=== PATIENT | male | born 1965 | race Caucasian/White ===

== ENCOUNTER 2018-06-17 06:01 | Inpatient (IN) ==
[2018-06-17 09:50] LABS: Basophils % 0.1 %; Hematocrit 39.3 % (37.5-50.1); Hemoglobin 13.9 g/dL (12.9-16.9); Immature Granulocytes % 1.4 % (0-4); Lymphocytes % 3.9 %; Mean Corpuscular HGB Conc 35.4 g/dL (31.6-35.5); Mean Corpuscular Hemoglobin 31.8 pg (28.0-33.3); Mean Corpuscular Volume 89.9 fL (83.0-100.0); Mean Platelet Volume 12.9 fL (9.4-12.4); Monocytes # 1.2 K/mcL (0.0-1.3); Monocytes % 4.7 %; Neutrophils # 22.4 K/mcL (1.6-8.9); Nucleated Red Blood Cells 0.1 /100 WBC (0); Platelet Count 126 K/mcL (140-400); Red Blood Count 4.37 M/mcL (4.19-5.50); Red Cell Distribution Width 14.9 % (11.5-14.5); Segmented Neutrophils % 89.9 %
[2018-06-17 09:52] LABS: VBG Ionized Calcium 0.93 mmol/L (1.15-1.35)
[2018-06-17 09:56] LABS: INR 1.6; Prothrombin Time 17.7 Seconds (9.4-12.1)
[2018-06-17] MEDS ORDERED: Cisatracurium 200 MG in 0.9 % Sodium Chloride 180 ML IVC SCH (10:00)
[2018-06-17] MEDS: Norepinephrine 4 MG in D5% in Water 250 ML IVC SCH ×3 (10:00→15:21)
[2018-06-17] MEDS ORDERED: Naloxone 0.4 MG/ML INJ IVP PRN (10:01)
[2018-06-17 10:21] LABS: Calcium 7.4 mg/dL (8.6-10.3); Magnesium 1.5 mg/dL (1.6-2.6); Troponin I 0.61 ng/mL (< 0.04)
[2018-06-17] MEDS ORDERED: Potassium Chloride Elixir 20 MEQ/15 ML UDC GTUBE ONE (10:27)
[2018-06-17 10:29] LABS: Potassium 1.6 mEq/L (3.5-5.1)
[2018-06-17] MEDS ORDERED: Artificial Tears SOLN 15 ML BOTTLE BOTH EYES PRN (10:29)
[2018-06-17] MEDS ORDERED: Ringers Solution, Lactated 1,000 ML IVC ONE ×3 (10:35→13:11)
[2018-06-17] MEDS ORDERED: Ringers Solution, Lactated 1,000 ML ONE (10:41)
[2018-06-17 10:55] LABS: Albumin/Globulin Ratio 1.2 (1.1-2.2); Bilirubin,Direct 0.4 mg/dL (0.0-0.2); Bilirubin,Indirect 0.6 mg/dL (0.0-1.2); Globulin 2.5 g/dL (2.4-3.5); Total Protein 5.5 g/dL (6.4-8.9)
[2018-06-17 10:57] LABS: ABG Base Excess 8 mEq/L (-2 to 3); ABG HCO3 35 mEq/L (21-27); ABG Oxygen Saturation 96 % (95-98); ABG PCO2 57 mmHg (35-45); ABG PO2 86 mmHg (85-104); ABG TCO2 37 mEq/L (20-26); Blood Gas Modality ASSIST CONTROL; Blood Gas PEEP 14 cm H2O; Blood Gas Respiration Rate 16; Blood Gas VT 500 cc
[2018-06-17] MEDS ORDERED: Vancomycin 1,750 MG in 0.9 % Sodium Chloride 250 ML IVPB SCH ×2 (11:00→18:00)
[2018-06-17] MEDS ORDERED: *HR* Dextrose 50 % in Water (Syg) 50 ML SYRINGE IVP PRN ×3 (11:20→16:31)
[2018-06-17] MEDS ORDERED: Acetaminophen 650 MG RECTAL SUPP RC PRN (11:20)
[2018-06-17] MEDS ORDERED: Dextrose Gel 15 GM/37.5 ML TUBE PO PRN ×2 (11:28)
[2018-06-17] MEDS ORDERED: D5% in Water 1,000 ML IVC PRN (11:28)
[2018-06-17] MEDS ORDERED: Insulin Human Regular 100 UNIT in 0.9 % Sodium Chloride 100 ML IVC SCH (11:30)
[2018-06-17] MEDS ORDERED: 0.9 % Sodium Chloride 500 ML ONE (11:39)
[2018-06-17] MEDS: Pantoprazole 40 MG VIAL IVP SCH (11:39)
[2018-06-17] MEDS: Hydrocortisone Sodium Succ 100 MG/2 ML VIAL IVP SCH ×3 (11:39→22:59)
[2018-06-17] MEDS: Artificial Tears SOLN 15 ML BOTTLE BOTH EYES SCH ×4 (11:40→23:00)
[2018-06-17] MEDS: Piperacillin/Tazobactam 3.375 GM in 0.9 % Sodium Chloride Mini Bag 100 ML IVPB SCH ×2 (11:40→19:40)
[2018-06-17] MEDS: Levofloxacin 750 MG/150 ML 750 MG/150 ML BAG IVPB SCH (11:41)
--- NOTE | 2018-06-17 12:01 | Pulmonology History & Physical ---
<Nikole Mooney - Last Filed: 06/17/18 20:12> Date of Encounter: 06/17/18 Time of Encounter: 12:01 Assessment and Plan (1) Acute respiratory failure with hypoxemia Current visit: Yes Status: Acute Transferred from the ED at [facility]. It is likely due to pneumonia and septic shock. He was intubated at presentation. His PO2 was 66. His pH was within normal limits, his carbon dioxide was elevated at 61 with metabolic compensation of 36. His most recent repeat pH was 7.40, PCO2 was 52, HCO3 was 32 and PO2 of 53. -Continue ventilator, PEEP of 10 and tidal volume of 400 and FiO2 of 50 -Pending sputum cultures -Repeat ABG at 2300, adjust ventilator settings as needed -Continue vancomycin, zosyn and levaquin (2) Septic shock Current visit: Yes Status: Acute Septic shock, unknown source. He was transferred from [facility] ED. He had received 3 liters of IV fluids. At presentation he was not hemodynamically stable. He was hypokalemic, had leukocystosis, LUCILA, elevated troponin and lactic acid of 6.6. He was intubated at presentation. Since his presentation he required three different maximum doses of pressors and additional IV fluids. Currently he is on dobutamine, norepi and phenylephrine. His entire body has molting. He has a femoral central line and two peripheral lines. He also has an arterial lines. He is getting electrolyte replacement. He is on broad spectrum antibiotics. Additionally trying to keep a nice balance between sedation and comfort care without negatively affecting his hemodynamic status. Spoke with family numerous times today about goals of care. Given his acute decompensation further decisions will be made at a later time by family. -Awaiting blood cultures -MRSA swab negative and respiratory panel negative -Continuing broad spectrum antibiotics--zosyn, vancomycin and levaquin (day 1) -Currently on versed for sedation and not responding -Can consider using propofol and fentanyl, although start with low dose due to his hemodynamic status -Continue dobutamine, norepi, phenylephrine and dobutamine can be stopped or weaned first if hemodynamically improving (3) Systolic heart failure Current visit: Yes Status: Acute Transferred from [facility]. At presentation he was not hemodynamically stable. His blood pressure was 60s/40s. His rhythm was sinus tachycardic. There was no edema noted on exam. Upon auscultation he had decreased lung sounds at all lung lobes. He had an echo this morning. Per echo his EF is 20% with global systolic dysfunction. There is no previous echos to compare this finding. His blood pressure this evening is 107/66. Has history of hypertension at home and use to take three different antihypertensives at home as well as furosemide. Per family he is complaint with his medications. -Continue pressors to maintain perfusion -Repeat EKG tomorrow morning Qualifiers: Heart failure chronicity: unspecified Qualified Code(s): I50.20 - Unspecified systolic (congestive) heart failure (4) Hypokalemia Current visit: Yes Status: Acute At presentation his potassium was 1.9 and had only received 20 mEq of potassium. He received 80 mEq of oral potassium and 80 mEQ of IV replacement. His repeat potassium was 1.9 this evening. He is on further replacement therapy. Also, replacement for magnesium. -Repeat BMP at 2300 tonight -Replete as needed, avoid oral as he has not responded to it and due to systemic organ dysfunction (5) LUCILA (acute kidney injury) Current visit: Yes Status: Acute At presentation his creatinine was 1.92 and repeat creatinine was 1.54. His urine output has slightly decreased due to his worsened hemodynamic status but as his hemodynamic status started to improve so did his urine output. Since admission his urine output has been 1925 ml. -Continue to renally dose his medications -Will continue to monitor his urinary output (6) Hypocalcemia Current visit: Yes Status: Acute Ioninzed calcium was 0.93 this morning. He is on calcium gluconate as calcium replacement. -Continue to monitor, repeat in the morning (7) Elevated troponin Current visit: Yes Status: Acute His troponin was 0.22 at 03:35. [place], then trended to 0.61 and then went up to 0.83. This is likely due to global cardiac dysfunction due to septic shock. Stat echo was conducted and showed EF of 20% with global systolic dysfunction. His rhythm here has remain sinus tachycardic. -If his respiratory status improves further imaging will be considered tomorrow -Trending troponin, will repeat at 2300 tonight -Will repeat EKG in the morning (8) Type 2 diabetes mellitus Current visit: Yes Status: Chronic At presentation to the [facility] ED his glucose was 313 and repeat glucose this afternoon was 197. Per family he is not compliant with his diabetic diet and drinks excessive amount of mountain dew. He was started on high sliding scale of lispro at admission here. Repeat glucose was 417. He is on IV insulin drip. There is no anion gap. 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 At home he is on respimat and albuterol. Per family he is also on home oxygen but is not compliant with it. His current respiratory distress could be worsened due to his chronic disease process. Chest xray shows diffuse bilateral opacity which is likely pulmonary congestion versus infectious cause. -Continue ventilator control -Continue broad spectrum antibiotics Qualifiers: Emphysema type: unspecified Qualified Code(s): J43.9 - Emphysema, unspecified (10) DVT prophylaxis Current visit: Yes Status: Acute SUBQ heparin 5000 mg BID History of Present Illness Chief complaint: Acute respiratory failture HPI: Mr. Mccarthy is a 52 year old male who was transferred from [facility] ED today. He has history of COPD with home oxygen use, type 2 diabetes on insulin, hypertension, chronic pain and depression. He was presented to the [facility] ED last night after his noticed his blood sugar was 300 and he was confused. Per family he was not feeling well yesterday but did not complain of specific symptoms. Family stated he was overall fine and then around 1 am last night was confused and did not feel well. At the ED in [place] he was noticed to have acute respiratory distress with hypercapnia and hypoxemia. He additionally had leukocytosis, hypokalemia and elevated troponin. Due to his respiratory decompensation he was intubated. He received 3 liters of fluid during his 6 hour stay at [facility]. He received 20 mEq of potassium replacement at [facility]. Prior to transfer he had not received any antibiotics. He was then transferred to [place]. In the ambulance upon transit he received boluses of rocuronium. At presentation here, he was sedate but was responding to stimuli. He was very hypotensive and required 3 different vasopressors as well additional fluid resusitation. He was also started on broad spectrum antibiotics. Family has been updated numerous times during his admission. 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 Due to his acute decompensation they would like to continue all possible treatments. This evening his blood pressure is stable but is on maximum dose of pressors. Past Med Surg Social Fam HX - Past Medical History Medical history: asthma, COPD, GERD, hypertension, other Additional medical history: back problems Psychiatric history: anxiety, depression - Social History Smoking Status: Former smoker Smokeless Tobacco Status: No Alcohol use: none Drug use: none Medications and Allergies Ipratropium/Albuterol Sulfate [Combivent Respimat Inhal [place]] 4 gm IH DAILY [History] Albuterol Sulfate [Proair Hfa] 2 puff IH Q4HR PRN 06/17/18 [History] Aspirin Enteric Coated [Aspirin EC] 81 mg PO DAILY 06/17/18 [History] Carvedilol [Carvedilol] 3.125 mg PO BID 06/17/18 [History] Citalopram [CeleXA] 20 mg PO DAILY 06/17/18 [History] Fluticasone Propionate Nasal [Flonase] 1 puff NS DAILY 06/17/18 [History] Fluticasone/Vilanterol [Breo Ellipta 200-25 Mcg INH] 1 each IH DAILY 06/17/18 [ History] Furosemide [Lasix] 40 mg PO BID 06/17/18 [History] Gabapentin [Neurontin] 800 mg PO QID 06/17/18 [History] Insulin Glargine,Hum.rec.anlog [Basaglar Kwikpen U-100] 40 unit SQ BID 06/17/18 [History] Losartan/Hydrochlorothiazide [Losartan-Hctz 100-25 mg Tab] 1 tab PO DAILY [History] Metoprolol [Lopressor] 25 mg PO BID 06/17/18 [History] Montelukast [Singulair] 10 mg PO HS 06/17/18 [History] OxyCODONE/APAP 10/325 [Percocet 10/325 MG] 1 tab PO TID 06/17/18 [History] Pantoprazole Sodium 40 mg PO DAILY 06/17/18 [History] Potassium Chloride [K-Tab ER] 20 meq PO DAILY 06/17/18 [History] Pravastatin Sodium [Pravachol] 40 mg PO DAILY 06/17/18 [History] 3 Allergy/AdvReac Type Severity Reaction Status Date / Time Sulfa (Sulfonamide Allergy Rash Verified 01/28/16 21:39 Antibiotics) ROS unobtainable: due to endotracheal tube, due to mental status All Systems: The remainder of the systems were reviewed and are negative - Constitutional Constitutional: no chills, no fever(s) - EENT Nose, mouth and throat: no dizziness, no nasal congestion - Cardiovascular Cardiovascular: dyspnea, no chest pain - Respiratory Respiratory: no cough, no dyspnea, no wheezing - Gastrointestinal Gastrointestinal: no abdominal pain, no diarrhea, no nausea - Musculoskeletal Musculoskeletal: no weakness, no numbness - Psychiatric Psychiatric: depression Physical Examination Vital Signs: Vital Signs, Last 4 Hours Temp Pulse Resp BP Pulse Ox 06/17/18 11:42 101.8 F H 06/17/18 10:00 102 16 57/38 93 06/17/18 09:14 101.4 F H 102 16 97/77 90 06/17/18 09:10 16 94 06/17/18 09:02 101.4 F H 101 16 68/38 95 General appearance: other (intubated) Eyes: nonicteric ENT: oropharynx moist Auscultation: bilateral: diminished breath sounds Cardiovascular: other (sinus tachycardic) Gastrointestinal: absent bowel sounds Integumentary: other (molting of the skin) Extremities: no cyanosis, no edema, no clubbing unable to assess due to mental status Results - Laboratory Findings CBC and BMP: 06/17/18 09:34 06/17/18 16:18 ABG ABG pH 7.40 pH Units (7.32-7.45) 06/17/18 10:53 ABG pCO2 57 mmHg (35-45) H 06/17/18 10:53 ABG pO2 86 mmHg (85-104) 06/17/18 10:53 ABG O2 Saturation 96 % (95-98) 06/17/18 10:53 PT/INR, D-dimer PT 17.7 Seconds (9.4-12.1) H 06/17/18 09:34 Abnormal lab findings: Abnormal lab results WBC 24.9 K/mcL (4.3-11.1) H 06/17/18 09:34 RDW 14.9 % (11.5-14.5) H 06/17/18 09:34 Plt Count 126 K/mcL (140-400) L 06/17/18 09:34 MPV 12.9 fL (9.4-12.4) H 06/17/18 09:34 Neutrophils # 22.4 K/mcL (1.6-8.9) H 06/17/18 09:34 Nucleated RBCs/100 WBC 0.1 /100 WBC (0) H 06/17/18 09:34 PT 17.7 Seconds (9.4-12.1) H 06/17/18 09:34 ABG pCO2 57 mmHg (35-45) H 06/17/18 10:53 ABG HCO3 35 mEq/L (21-27) H 06/17/18 10:53 ABG Total CO2 37 mEq/L (20-26) H 06/17/18 10:53 ABG Base Excess 8 mEq/L (-2 to 3) H 06/17/18 10:53 Potassium 1.6 mEq/L (3.5-5.1) L* 06/17/18 09:34 Chloride 95 mEq/L (98-107) L 06/17/18 09:34 Carbon Dioxide 36 mEq/L (23-29) H 06/17/18 09:34 Creatinine 1.55 mg/dL (0.70-1.30) H 06/17/18 09:34 Est GFR ( Amer) 57 (> 60) L 06/17/18 09:34 Est GFR (Non-Af Amer) 47 (> 60) L 06/17/18 09:34 Glucose 197 mg/dL (70-105) H 06/17/18 09:34 POC Glucose 200 mg/dL (70-99) H 06/17/18 11:29 Lactic Acid 3.3 mmol/L (0.5-2.2) H 06/17/18 09:34 Calcium 7.4 mg/dL (8.6-10.3) L 06/17/18 09:34 Venous Ioniz Calcium 0.93 mmol/L (1.15-1.35) L 06/17/18 09:49 Magnesium 1.5 mg/dL (1.6-2.6) L 06/17/18 09:34 Direct Bilirubin 0.4 mg/dL (0.0-0.2) H 06/17/18 09:34 AST 54 Units/L (13-39) H 06/17/18 09:34 Troponin I 0.61 ng/mL (< 0.04) H* 06/17/18 09:34 Serum Total Protein 5.5 g/dL (6.4-8.9) L 06/17/18 09:34 Albumin 3.0 g/dL (3.5-5.7) L 06/17/18 09:34 <Ludin Barrett S - Last Filed: 06/17/18 21:10> Date of Encounter: 06/17/18 History of Present Illness HPI: Mr. Mccarthy is a 52 year old male All Systems: The remainder of the systems were reviewed and are negative Physical Examination Vital Signs: Vital Signs, Last 4 Hours Temp Pulse Resp BP Pulse Ox 06/17/18 20:00 128 33 128/78 94 06/17/18 19:25 26 93 06/17/18 19:00 102.8 F H 122 26 87/47 93 06/17/18 18:00 120 28 131/66 93 06/17/18 17:45 32 130/70 91 06/17/18 17:00 101.9 F H 120 34 129/69 91 Results - Laboratory Findings CBC and BMP: 06/17/18 09:34 06/17/18 16:18 ABG ABG pH 7.40 pH Units (7.32-7.45) 06/17/18 17:19 ABG pCO2 52 mmHg (35-45) H 06/17/18 17:19 ABG pO2 53 mmHg (85-104) L D 06/17/18 17:19 ABG O2 Saturation 86 % (95-98) L 06/17/18 17:19 PT/INR, D-dimer PT 17.7 Seconds (9.4-12.1) H 06/17/18 09:34 Abnormal lab findings: Abnormal lab results WBC 24.9 K/mcL (4.3-11.1) H 06/17/18 09:34 RDW 14.9 % (11.5-14.5) H 06/17/18 09:34 Plt Count 126 K/mcL (140-400) L 06/17/18 09:34 MPV 12.9 fL (9.4-12.4) H 06/17/18 09:34 Neutrophils # 22.4 K/mcL (1.6-8.9) H 06/17/18 09:34 Nucleated RBCs/100 WBC 0.1 /100 WBC (0) H 06/17/18 09:34 PT 17.7 Seconds (9.4-12.1) H 06/17/18 09:34 ABG pCO2 52 mmHg (35-45) H 06/17/18 17:19 ABG pO2 53 mmHg (85-104) L D 06/17/18 17:19 ABG HCO3 32 mEq/L (21-27) H 06/17/18 17:19 ABG Total CO2 34 mEq/L (20-26) H 06/17/18 17:19 ABG O2 Saturation 86 % (95-98) L 06/17/18 17:19 ABG Base Excess 6 mEq/L (-2 to 3) H 06/17/18 17:19 Potassium 1.9 mEq/L (3.5-5.1) L* 06/17/18 16:18 Chloride 94 mEq/L (98-107) L 06/17/18 16:18 Carbon Dioxide 31 mEq/L (23-29) H 06/17/18 16:18 Creatinine 1.56 mg/dL (0.70-1.30) H 06/17/18 16:18 Est GFR ( Amer) 57 (> 60) L 06/17/18 16:18 Est GFR (Non-Af Amer) 47 (> 60) L 06/17/18 16:18 Glucose 417 mg/dL (70-105) H 06/17/18 16:18 POC Glucose 368 mg/dL (70-99) H 06/17/18 20:04 Calculated Osmolality 301 (280-300) H 06/17/18 16:18 Lactic Acid 4.1 mmol/L (0.5-2.2) H* 06/17/18 15:30 Calcium 7.8 mg/dL (8.6-10.3) L 06/17/18 16:18 Venous Ioniz Calcium 0.93 mmol/L (1.15-1.35) L 06/17/18 09:49 Magnesium 1.5 mg/dL (1.6-2.6) L 06/17/18 09:34 Direct Bilirubin 0.4 mg/dL (0.0-0.2) H 06/17/18 09:34 AST 54 Units/L (13-39) H 06/17/18 09:34 Troponin I 0.83 ng/mL (< 0.04) H* 06/17/18 16:18 Serum Total Protein 5.5 g/dL (6.4-8.9) L 06/17/18 09:34 Albumin 3.0 g/dL (3.5-5.7) L 06/17/18 09:34 - Attending Attestation I saw and evaluated this patient and my medical decision-making was reviewed with the Resident Physician. I agree with the documented findings, disposition and treatment plan as described except to the extent set forth below. We independently had [id number] contact with the patient I spent 60 minutes of Critical Care time with this patient. It involved decision making of high complexity to assess, manipulate, and support vital organ system failure and/or to prevent further life threatening deterioration of the patient's condition. The time involved in the performance of separately reportable procedures was not counted toward critical care time. Patient seen and examined at bedside Labs, radiology, chart personally reviewed. Management was reviewed during multidisciplinary critical care rounds. TAG MAKER: Patient is arousable not following commands secondary to toxic /metabolic encephalopathy Pulm: Patient has severe VQ mismatch with some sun physiology most likely secondary to valvular prosthesis pneumonia versus pulmonary edema. He was requiring high FiO2 and high PEEP therapy wanted to prone this patient but patient became severely hemodynamically unstable which is a contraindication for pronating so we held off pronating the patient . I will volume strategy the Plateau pressure was acceptable patient currently with acceptable oxygenation and ventilation at a reduced the PEEP therapy because patient was severely hypotensive.. Since patient is hypertensive will tolerate higher FiO2 low PEEP strategy. Cards: Patient has was likely subendocardial ischemia type II IA with global systolic dysfunction with an EF of 20% most likely was global systolic dysfunction is most likely due to sepsis induced no regional wall motion abnormality will give continuing trending troponins. Patient is in refractory severe septic shock with stress dose steroids.. He is on 3 different multiple vasopressors insulin (he had a Dobutrex because of this low EF as phenylephrine will reduce the cardiac output due to it's baroreceptor reflex to continue levophed and vasopressin. FEN-GI: Nothing by mouth for now Renal: Patient is increase urine output most likely he will develop acute kidney injury secondary to sepsis induced ATN ID : culture done patient on broad-spectrum antibiotics most likely source for septic shock as pneumonia cannot perceive managing chest and abdomen because patient has hemodynamically unstable. When he is stable we will do CT Chest and Abdomen Heme/Onc: Labs reviewed continue thromboprophylaxis Endo: Glucose Monitored Integ/MSK: Skin Care per routine ICU Nursing Protocol to prevent ulcers. Lines: All lines examined without evidence of infection : Dispo: Critically ill CODE: Full Code Family was fully updated .
--- NOTE | 2018-06-17 12:06 | Sepsis Event Note ---
<Nikole Mooney - Last Filed: 06/17/18 18:50> Sepsis Reassessment Note - Evaluation Sepsis Screen: Sepsis Risk Current Stage of Sepsis: septic shock Possible Source of Sepsis: unknown - Focused Exam Date of Encounter: 06/17/18 Time of Encounter: 09:20 Vital Signs: Vital Signs Temp Pulse Resp BP Pulse Ox 06/17/18 11:42 101.8 F H 06/17/18 10:00 102 16 57/38 93 06/17/18 09:14 101.4 F H 102 16 97/77 90 06/17/18 09:10 16 94 06/17/18 09:02 101.4 F H 101 16 68/38 95 Respiratory Exam: Present: diminished air movement Cardiovascular Exam: Present: tachycardia Capillary Refill: > 2 seconds Peripheral Pulse Strength: 1+ faint Peripheral Pulse Location: Radial Skin Exam: normal turgor - Reassessment Comments Comments: He presented from [place] sedated and intubated. SOFA score of 12. Unknown source of sepsis shock, likely pneumonia. Blood culture pending. <Ludin Barrett - Last Filed: 06/17/18 20:44> Sepsis Reassessment Note - Focused Exam Vital Signs: Vital Signs Temp Pulse Resp BP Pulse Ox 06/17/18 19:25 26 93 06/17/18 19:00 102.8 F H 122 26 87/47 93 06/17/18 18:00 120 28 131/66 93 06/17/18 17:45 32 130/70 91 06/17/18 17:00 101.9 F H 120 34 129/69 91 06/17/18 16:00 114 16 104/51 93 06/17/18 15:39 21 90 06/17/18 15:00 101.6 F H 115 21 79/41 90 06/17/18 14:00 120 18 67/38 94 06/17/18 13:00 101.8 F H 120 18 67/38 94 06/17/18 12:52 16 65/45 97 06/17/18 12:00 109 16 56/42 96 06/17/18 11:42 101.8 F H 06/17/18 11:00 101.8 F H 109 16 53/40 96 06/17/18 10:00 116 16 57/38 93 06/17/18 09:14 101.4 F H 102 16 97/77 90 06/17/18 09:10 16 94 06/17/18 09:02 101.4 F H 101 16 68/38 95
[2018-06-17] MEDS: Vasopressin 40 UNIT in D5% in Water 100 ML IV SCH (12:13)
[2018-06-17] MEDS: Insulin LISPRO 300 UNITS/3 ML VIAL SQ SCH ×2 (12:21→21:00)
[2018-06-17] MEDS ORDERED: Perflutren Lipid Microsphere 1.3 ML in 0.9 % Sodium Chloride 8.7 ML IVP ONE (12:26)
[2018-06-17 12:30] LABS: Adenovirus Not Detected (Not Detect); Bordetella Pertussis Not Detected (Not Detect); Chlamydophila pneumoniae Not Detected (Not Detect); Coronavirus 229E Not Detected (Not Detect); Coronavirus HKU1 Not Detected (Not Detect); Coronavirus NL63 Not Detected (Not Detect); Coronavirus OC43 Not Detected (Not Detect); Human Metapneumovirus Not Detected (Not Detect); Human Rhinovirus/Enterovirus Not Detected (Not Detect); Influenza A Subtype 2009 H1 Not Detected (Not Detect); Influenza A Untypeable Not Detected (Not Detect); Influenza B Not Detected (Not Detect); Mycoplasma pneumoniae Not Detected (Not Detect); Parainfluenza Virus 1 Not Detected (Not Detect); Parainfluenza Virus 2 Not Detected (Not Detect); Parainfluenza Virus 3 Not Detected (Not Detect); Parainfluenza Virus 4 Not Detected (Not Detect); Respiratory Syncytial Virus Not Detected (Not Detect)
[2018-06-17] MEDS ORDERED: Perflutren Lipid Microsphere 2 ML VIAL ONE (12:30)
[2018-06-17] MEDS: Phenylephrine 50 MG in D5% in Water 250 ML IVC SCH (12:42)
[2018-06-17 13:21] LABS: ABG Base Excess 0 mEq/L (-2 to 3); ABG HCO3 28 mEq/L (21-27); ABG Oxygen Saturation 96 % (95-98); ABG PCO2 56 mmHg (35-45); ABG PO2 93 mmHg (85-104); ABG TCO2 29 mEq/L (20-26); Blood Gas PEEP 14 cm H2O; Blood Gas Respiration Rate 14; Blood Gas VT 500 cc
[2018-06-17] MEDS ORDERED: Hydrocortisone Sodium Succ 100 MG/2 ML VIAL IVP ONE (13:21)
[2018-06-17] MEDS ORDERED: Acetaminophen IV 1,000 MG/100 ML INFUS..BTL IVPB ONE (13:24)
[2018-06-17] MEDS: Dexmedetomidine HCl 400 MCG/100 ML MLS IVC SCH ×2 (13:45→16:38)
[2018-06-17] MEDS ORDERED: Magnesium Sulfate 2 GM in D5% in Water 100 ML IVPB SCH (14:00)
[2018-06-17] MEDS ORDERED: Potassium Phosphate 44 MEQ in 0.9 % Sodium Chloride 250 ML IVPB PRN (14:20)
[2018-06-17] MEDS ORDERED: Calcium Chloride 1,000 MG in 0.9 % Sodium Chloride 100 ML IVPB ONE (14:26)
--- NOTE | 2018-06-17 15:03 | Procedure Note ---
<Fawad Priest - Last Filed: 06/17/18 15:01> Date of procedure: 06/17/18 Pre-op diagnosis: Hypotension Post-op diagnosis: same Procedure: Written consent was obtained from the patient's . The left and right wrist were surveyed using ultrasound and the left wrist was the more suitable target. The patient was cleaned and draped in usual sterile fashion. Under ultrasound guidance the introducer needle was advanced into the left radial artery. Bright red, pulsatile blood flow was returned. The guidewire was advanced and the needle without resistance. The needle was removed, a small west in the skin was made, and the arterial catheter was advanced over the wire into the artery. The guidewire was removed intact. A pressure transduction system was connected to the catheter and a arterial waveform was present. The catheter was sutured in place. Sterile dressing was applied. The patient tolerated the procedure well, there are no immediate palpitations. Surgeon: Fawad Priest Was there an orthopedic physician assistant present: Yes Machine Repairer: Nikole Mooney Estimated blood loss (cc): 10 IV fluids (cc): 0 Specimen: none Pathology: none sent Condition: critical Disposition: ICU <Ludin Barrett S - Last Filed: 06/17/18 20:44> Procedure: I was present during the entire procedure assisted the resident with the critical portions of the procedure.
--- NOTE | 2018-06-17 16:36 | Procedure Note ---
<Nikole Mooney - Last Filed: 06/17/18 16:34> Date of procedure: 06/17/18 Pre-op diagnosis: Right femoral central line Post-op diagnosis: same Procedure: The femoral central line procedure was performed with a sterile technique. Prior to starting the procedure ultrasound was used to locate the right femoral vein. There after the area was cleaned with chlorhexadine. I wore a surgical cap , mask, sterile gown and sterile gloves. Also, Dr. Priest assisted with the procedure in a sterile manner. The area was draped in sterile fashion. The central venous catheter was prepped with normal saline. The right inguinal area was anesthetized using 1 ml of 1% lidocaine, he was already sedated. The introducer needle was inserted into the femroal vein with ultrasound guidance. Venous blood was withdrawn. The syringe was removed and a guidewire was advanced into the intoducer needle. A small incision was made at the skin surface with a scalpel and the introducer needle was removed. A dilator was exchanged though the guidewire. After appropriate dilation over the wire the dilator was removed and the central venous catheter was placed over the wire. The wire was removed. All ports were aspirated and flushed through all the openings of the catheter. The catheter was sutured in place. The area was again cleaned and the sorbaview shield was placed over the catheter at the insertion site. His hemodynamic status remained unchanged. Anesthesia: local (2 ml lidocaine ) Was there an business office assistant present: Yes Cable Inspector: Fawad Priest Estimated blood loss (cc): 5 Specimen: none Disposition: no change <Ludin Barrett - Last Filed: 06/17/18 20:37> Procedure: I was present during the entire procedure assisting the residents in critical portions of the procedure.
[2018-06-17] MEDS: Insulin Human Regular 100 UNIT in 0.9 % Sodium Chloride 100 ML IVC SCH ×2 (16:56→22:19)
[2018-06-17 17:05] LABS: Calcium 7.8 mg/dL (8.6-10.3); Potassium 1.9 mEq/L (3.5-5.1); Troponin I 0.83 ng/mL (< 0.04)
[2018-06-17] MEDS: Norepinephrine 8 MG in D5% in Water 250 ML IVC SCH ×2 (17:12→19:59)
[2018-06-17 17:24] LABS: ABG Base Excess 6 mEq/L (-2 to 3); ABG HCO3 32 mEq/L (21-27); ABG Oxygen Saturation 86 % (95-98); ABG PCO2 52 mmHg (35-45); ABG PO2 53 mmHg (85-104); ABG TCO2 34 mEq/L (20-26); Blood Gas PEEP 10 cm H2O; Blood Gas Respiration Rate 20; Blood Gas VT 400 cc
[2018-06-17] MEDS: FentaNYL (PF) 1,000 MCG in 0.9 % Sodium Chloride 80 ML IVC SCH ×2 (17:28→21:24)
[2018-06-17] MEDS: *HR* Heparin 5,000 UNIT/ML VIAL SQ SCH (17:40)
[2018-06-17] MEDS ORDERED: *HR* Midazolam HCl 2 MG/2 ML VIAL IVP ONE (17:49)
[2018-06-17] MEDS ORDERED: *HR* Midazolam HCl 2 MG/2 ML VIAL ONE (17:49)
[2018-06-17 18:25] LABS: Potassium,Urine 7.5 mEq/L; Sodium, Urine 128.8 mEq/L
[2018-06-17] MEDS: Chlorhexidine Rinse 15 ML MOUTHWASH MM SCH (19:41)
[2018-06-17] MEDS: Acetaminophen IV 1,000 MG/100 ML INFUS..BTL IVPB PRN (20:24)
[2018-06-17 23:11] LABS: Calcium 7.1 mg/dL (8.6-10.3); Troponin I 0.92 ng/mL (< 0.04)
[2018-06-18] MEDS: Norepinephrine 8 MG in D5% in Water 250 ML IVC SCH ×5 (01:01→19:55)
[2018-06-18] MEDS: FentaNYL (PF) 1,000 MCG in 0.9 % Sodium Chloride 80 ML IVC SCH ×5 (02:18→22:59)
[2018-06-18] MEDS: Acetaminophen IV 1,000 MG/100 ML INFUS..BTL IVPB PRN (02:51)
[2018-06-18] MEDS: Artificial Tears SOLN 15 ML BOTTLE BOTH EYES SCH ×6 (03:14→23:00)
[2018-06-18] MEDS: Piperacillin/Tazobactam 3.375 GM in 0.9 % Sodium Chloride Mini Bag 100 ML IVPB SCH ×3 (03:19→19:53)
[2018-06-18 03:22] LABS: Hematocrit 32.6 % (37.5-50.1); Hemoglobin 11.5 g/dL (12.9-16.9); Mean Corpuscular HGB Conc 35.3 g/dL (31.6-35.5); Mean Corpuscular Hemoglobin 31.2 pg (28.0-33.3); Mean Corpuscular Volume 88.3 fL (83.0-100.0); Red Blood Count 3.69 M/mcL (4.19-5.50); Red Cell Distribution Width 15.3 % (11.5-14.5)
[2018-06-18 03:26] LABS: Platelet Count 75 K/mcL (140-400)
[2018-06-18 03:28] LABS: INR 2.1; Prothrombin Time 23.8 Seconds (9.4-12.1)
[2018-06-18 03:34] LABS: VBG Ionized Calcium 0.93 mmol/L (1.15-1.35)
[2018-06-18 03:50] LABS: Albumin 2.5 g/dL (3.5-5.7); Bilirubin,Direct 0.5 mg/dL (0.0-0.2); Bilirubin,Indirect 0.5 mg/dL (0.0-1.2); Calcium 6.9 mg/dL (8.6-10.3); Globulin 2.6 g/dL (2.4-3.5); Magnesium 1.9 mg/dL (1.6-2.6); Phosphorous 1.4 mg/dL (2.7-4.5); Potassium 2.1 mEq/L (3.5-5.1); Total Protein 5.1 g/dL (6.4-8.9)
[2018-06-18 03:58] LABS: Lymphocytes # 0.6 K/mcL (0.6-4.6); Monocytes # 1.2 K/mcL (0.0-1.3); Neutrophils # 27.1 K/mcL (1.6-8.9); Platelet Estimate Decreased (Normal)
[2018-06-18 03:59] LABS: Toxic Granulation Present (Not Present)
[2018-06-18] MEDS: Insulin Human Regular 100 UNIT in 0.9 % Sodium Chloride 100 ML IVC SCH ×4 (04:10→21:27)
[2018-06-18 05:06] LABS: ABG Base Excess 7 mEq/L (-2 to 3); ABG HCO3 34 mEq/L (21-27); ABG Oxygen Saturation 92 % (95-98); ABG PCO2 55 mmHg (35-45); ABG PH 7.39 pH Units (7.32-7.45); ABG PO2 65 mmHg (85-104); ABG TCO2 35 mEq/L (20-26); Blood Gas Modality PRVC; Blood Gas PEEP 10 cm H2O; Blood Gas Respiration Rate 20; Blood Gas VT 400 cc
[2018-06-18] MEDS: *HR* Heparin 5,000 UNIT/ML VIAL SQ SCH ×3 (05:13→17:58)
[2018-06-18] MEDS: Hydrocortisone Sodium Succ 100 MG/2 ML VIAL IVP SCH ×4 (05:13→23:00)
[2018-06-18] MEDS: Vasopressin 40 UNIT in D5% in Water 100 ML IV SCH (05:52)
[2018-06-18] MEDS: Chlorhexidine Rinse 15 ML MOUTHWASH MM SCH ×2 (08:17→19:53)
[2018-06-18] MEDS: Pantoprazole 40 MG VIAL IVP SCH (08:17)
[2018-06-18 09:14] LABS: Activated Partial Thrombo Time 31.8 Seconds (26.0-36.0)
[2018-06-18] MEDS: Levofloxacin 750 MG/150 ML 750 MG/150 ML BAG IVPB SCH (11:26)
[2018-06-18 11:42] LABS: Amphetamine Screen,Urine Negative ng/mL (Cutoff=1000); Barbiturate Screen,Urine Negative ng/mL (Cutoff=200); Benzodiazepines Screen,Urine Positive ng/mL (Cutoff=200); Cannabinoid Screen,Urine Negative ng/mL (Cutoff = 50); Cocaine Screen,Urine Negative ng/mL (Cutoff= 300); Opiate Screen,Urine Positive ng/mL (Cutoff=300); Phencyclidine Screen,Urine Negative ng/mL (Cutoff=25)
[2018-06-18 11:43] LABS: Magnesium 2.2 mg/dL (1.6-2.6); Potassium 2.8 mEq/L (3.5-5.1)
[2018-06-18 12:01] LABS: VBG Ionized Calcium 0.93 mmol/L (1.15-1.35)
--- NOTE | 2018-06-18 12:05 | Pulmonology Consult Note ---
Date of Encounter: 06/18/18 Time of Encounter: 12:05 Assessment and Plan (1) Acute respiratory failure with hypoxemia Current Visit: Yes Status: Acute (2) Septic shock Current Visit: Yes Status: Acute (3) Systolic heart failure Current Visit: Yes Status: Acute Qualifiers: Heart failure chronicity: unspecified Qualified Code(s): I50.20 - Unspecified systolic (congestive) heart failure (4) Hypokalemia Current Visit: Yes Status: Acute (5) LUCILA (acute kidney injury) Current Visit: Yes Status: Acute (6) Hypocalcemia Current Visit: Yes Status: Acute (7) Elevated troponin Current Visit: Yes Status: Acute (8) Type 2 diabetes mellitus Current Visit: Yes Status: Chronic Qualifiers: Diabetes mellitus shelter insulin use: with ferry terminal agent use Qualified Code( s): E11.9 - Type 2 diabetes mellitus without complications; Z79.4 - FDC ( current) use of insulin (9) COPD (chronic obstructive pulmonary disease) Current Visit: Yes Status: Chronic Qualifiers: Emphysema type: unspecified Qualified Code(s): J43.9 - Emphysema, unspecified (10) DVT prophylaxis Current Visit: Yes Status: Acute Past Med Surg Social Fam HX - Past Medical History Medical history: asthma, COPD, GERD, hypertension, other Additional medical history: back problems Psychiatric history: anxiety, depression - Social History Smoking Status: Former smoker Smokeless Tobacco Status: No Alcohol use: none Drug use: none Medications and Allergies Ipratropium/Albuterol Sulfate [Combivent Respimat Inhal [place]] 4 gm IH DAILY [History] Albuterol Sulfate [Proair Hfa] 2 puff IH Q4HR PRN 06/17/18 [History] Aspirin Enteric Coated [Aspirin EC] 81 mg PO DAILY 06/17/18 [History] Carvedilol [Carvedilol] 3.125 mg PO BID 06/17/18 [History] Citalopram [CeleXA] 20 mg PO DAILY 06/17/18 [History] Fluticasone Propionate Nasal [Flonase] 1 puff NS DAILY 06/17/18 [History] Fluticasone/Vilanterol [Breo Ellipta 200-25 Mcg INH] 1 each IH DAILY 06/17/18 [ History] Furosemide [Lasix] 40 mg PO BID 06/17/18 [History] Gabapentin [Neurontin] 800 mg PO QID 06/17/18 [History] Insulin Glargine,Hum.rec.anlog [Basaglar Danielikpen U-100] 40 unit SQ BID 06/17/18 [History] Losartan/Hydrochlorothiazide [Losartan-Hctz 100-25 mg Tab] 1 tab PO DAILY [History] Metoprolol [Lopressor] 25 mg PO BID 06/17/18 [History] Montelukast [Singulair] 10 mg PO HS 06/17/18 [History] OxyCODONE/APAP 10/325 [Percocet 10/325 MG] 1 tab PO TID 06/17/18 [History] Pantoprazole Sodium 40 mg PO DAILY 06/17/18 [History] Potassium Chloride [K-Tab ER] 20 meq PO DAILY 06/17/18 [History] Pravastatin Sodium [Pravachol] 40 mg PO DAILY 06/17/18 [History] 3 Allergy/AdvReac Type Severity Reaction Status Date / Time Sulfa (Sulfonamide Allergy Rash Verified 01/28/16 21:39 Antibiotics) All Systems: The remainder of the systems were reviewed and are negative Physical Examination Vital Signs: Vital Signs, Last 4 Hours Temp Pulse Resp BP Pulse Ox 06/18/18 11:00 100.5 F H 115 20 73/48 92 06/18/18 09:59 116 20 79/44 91 06/18/18 09:36 21 77/43 91 06/18/18 09:00 101.4 F H 116 20 79/43 91 Ventilator Settings Ventilator Settings: Ventilator Settings, Last 8 Hours Ventilator Tidal Volume 400 Setting Ventilator Tidal Volume 400 Setting Ventilator Tidal Volume 400 Setting Ventilator Tidal Volume 400 Setting Ventilator Tidal Volume 400 Setting Ventilator Tidal Volume 400 Setting Ventilator Tidal Volume 400 Setting Ventilator Tidal Volume 400 Setting Ventilator Tidal Volume 400 Setting Ventilator Tidal Volume 400 Setting Ventilator Tidal Volume 400 Setting Ventilator Respiratory Rate 20 Setting Ventilator Respiratory Rate 20 Setting Ventilator Respiratory Rate 20 Setting Ventilator Respiratory Rate 20 Setting Ventilator Respiratory Rate 20 Setting Ventilator Respiratory Rate 20 Setting Ventilator Respiratory Rate 20 Setting Ventilator Respiratory Rate 20 Setting Ventilator Respiratory Rate 20 Setting Ventilator Respiratory Rate 20 Setting Ventilator Respiratory Rate 20 Setting Actual Respiratory Rate 20 Actual Respiratory Rate 20 Actual Respiratory Rate 21 Actual Respiratory Rate 20 Actual Respiratory Rate 20 Actual Respiratory Rate 20 Actual Respiratory Rate 20 Actual Respiratory Rate 20 Actual Respiratory Rate 20 Actual Respiratory Rate 22 Positive End Expiratory 10 Pressure Positive End Expiratory 10 Pressure Positive End Expiratory 10 Pressure Positive End Expiratory 10 Pressure Positive End Expiratory 10 Pressure Positive End Expiratory 10 Pressure Positive End Expiratory 10 Pressure Positive End Expiratory 10 Pressure Positive End Expiratory 10 Pressure Positive End Expiratory 10 Pressure Positive End Expiratory 10 Pressure Peak Inspiratory Airway 24 Pressure Peak Inspiratory Airway 25 Pressure Peak Inspiratory Airway 24 Pressure Peak Inspiratory Airway 24 Pressure Peak Inspiratory Airway 22 Pressure Peak Inspiratory Airway 22 Pressure Peak Inspiratory Airway 22 Pressure Peak Inspiratory Airway 22 Pressure Peak Inspiratory Airway 22 Pressure Peak Inspiratory Airway 22 Pressure Results - Laboratory Findings CBC and BMP: 06/18/18 03:05 06/18/18 10:58 ABG ABG pH 7.39 pH Units (7.32-7.45) 06/18/18 05:03 ABG pCO2 55 mmHg (35-45) H 06/18/18 05:03 ABG pO2 65 mmHg (85-104) L 06/18/18 05:03 ABG O2 Saturation 92 % (95-98) L 06/18/18 05:03 PT/INR, D-dimer PT 23.8 Seconds (9.4-12.1) H 06/18/18 03:05 D-Dimer 3465 ng/mLFEU (0-500) H 06/18/18 08:08 Abnormal lab findings: Abnormal lab results WBC 28.8 K/mcL (4.3-11.1) H 06/18/18 03:05 RBC 3.69 M/mcL (4.19-5.50) L 06/18/18 03:05 Hgb 11.5 g/dL (12.9-16.9) L D 06/18/18 03:05 Hct 32.6 % (37.5-50.1) L 06/18/18 03:05 RDW 15.3 % (11.5-14.5) H 06/18/18 03:05 Plt Count 75 K/mcL (140-400) L 06/18/18 03:05 MPV 13.0 fL (9.4-12.4) H 06/18/18 03:05 Band Neutrophils % 8.0 % (0-4) H 06/18/18 03:05 Neutrophils # 27.1 K/mcL (1.6-8.9) H 06/18/18 03:05 Nucleated RBCs/100 WBC 0.1 /100 WBC (0) H 06/17/18 09:34 Toxic Granulation Present (Not Present) A 06/18/18 03:05 Platelet Estimate Decreased (Normal) L 06/18/18 03:05 PT 23.8 Seconds (9.4-12.1) H 06/18/18 03:05 Fibrinogen 578 mg/dL (169-393) H 06/18/18 08:08 D-Dimer 3465 ng/mLFEU (0-500) H 06/18/18 08:08 ABG pCO2 55 mmHg (35-45) H 06/18/18 05:03 ABG pO2 65 mmHg (85-104) L 06/18/18 05:03 ABG HCO3 34 mEq/L (21-27) H 06/18/18 05:03 ABG Total CO2 35 mEq/L (20-26) H 06/18/18 05:03 ABG O2 Saturation 92 % (95-98) L 06/18/18 05:03 ABG Base Excess 7 mEq/L (-2 to 3) H 06/18/18 05:03 Sodium 129 mEq/L (136-145) L 06/18/18 03:05 Potassium 2.8 mEq/L (3.5-5.1) L D 06/18/18 10:58 Chloride 97 mEq/L (98-107) L 06/18/18 03:05 Carbon Dioxide 31 mEq/L (23-29) H 06/18/18 03:05 Creatinine 1.53 mg/dL (0.70-1.30) H 06/18/18 03:05 Est GFR ( Amer) 58 (> 60) L 06/18/18 03:05 Est GFR (Non-Af Amer) 48 (> 60) L 06/18/18 03:05 Glucose 204 mg/dL (70-105) H 06/18/18 03:05 POC Glucose 155 mg/dL (70-99) H 06/18/18 11:03 Calculated Osmolality 276 (280-300) L 06/18/18 03:05 Lactic Acid 2.4 mmol/L (0.5-2.2) H 06/18/18 03:05 Calcium 6.9 mg/dL (8.6-10.3) L 06/18/18 03:05 Venous Ioniz Calcium 0.93 mmol/L (1.15-1.35) L 06/18/18 03:46 Phosphorus 1.4 mg/dL (2.7-4.5) L 06/18/18 03:05 Direct Bilirubin 0.5 mg/dL (0.0-0.2) H 06/18/18 03:05 AST 48 Units/L (13-39) H 06/18/18 03:05 Troponin I 0.92 ng/mL (< 0.04) H* 06/17/18 22:33 Serum Total Protein 5.1 g/dL (6.4-8.9) L 06/18/18 03:05 Albumin 2.5 g/dL (3.5-5.7) L 06/18/18 03:05 Albumin/Globulin Ratio 1.0 (1.1-2.2) L 06/18/18 03:05 Urine Opiates Screen Positive ng/mL (Ikvhha=859) H 06/18/18 10:37 U Benzodiazepines Scrn Positive ng/mL (Azzjvd=519) H 06/18/18 10:37 - Clinical Findings Intake & Output: Intake & Output 06/17/18 06/18/18 06/18/18 23:59 07:59 15:59 Intake Total 2565 / 2565 3133 / 3133 1550 / 1550 Output Total 1850 / 1850 300 / 300 300 / 300 Balance 715 / 715 2833 / 2833 1250 / 1250 Weight 124.8 kg 121 kg Consult Discharge Plan - Plan Referrals: Sheryl Stahl, [facility] [employer] [Primary Care Provider] -
[2018-06-18] MEDS: Micafungin 100 MG in 0.9 % Sodium Chloride Mini Bag 100 ML IVPB SCH (12:27)
--- NOTE | 2018-06-18 12:34 | Pulmonology Progress Note ---
<Nikole Mooney - Last Filed: 06/18/18 22:31> Date of Encounter: 06/18/18 Time of Encounter: 12:34 Assessment and Plan (1) Septic shock Current Visit: Yes Status: Acute 06/17/18 Septic shock, unknown source. He was transferred from [facility] on 06/17/18. He had received 3 liters of IV fluids. At presentation he was not hemodynamically stable. He was hypokalemic, had leukocystosis, LUCILA, elevated troponin and lactic acid of 6.6. He was intubated at presentation. Since his presentation he required three different maximum doses of pressors and additional IV fluids. Currently he is on dobutamine, norepi and phenylephrine. His entire body has molting. He has a femoral central line and two peripheral lines. He also has an arterial lines. He is getting electrolyte replacement. He is on broad spectrum antibiotics. Additionally trying to keep a nice balance between sedation and comfort care without negatively affecting his hemodynamic status. Spoke with family numerous times today about goals of care. Given his acute decompensation further decisions will be made at a later time by family. -Awaiting blood cultures -MRSA swab negative and respiratory panel negative -Continuing broad spectrum antibiotics--zosyn, vancomycin and levaquin (day 1) -Currently on versed for sedation and not responding -Can consider using propofol and fentanyl, although start with low dose due to his hemodynamic status -Continue dobutamine, norepi, phenylephrine and dobutamine can be stopped or weaned first if hemodynamically improving 06/18/18 Septic shock. Blood culture returned this evening and showed yeast albican. His urine grew yeast. Preliminary fungal coverage was started with micafungin given his acute status prior to blood cultures returning. -Vasopressin was stopped. He is now on dubutamine and norepi. His pressure is stable since stopping it and his MAP is in the 60s. -Continue zosyn, vancomycin and levaquin (day 2) (2) Acute respiratory failure with hypoxemia Current Visit: Yes Status: Acute Transferred from the ED at [place]. It is likely due to pneumonia and septic shock. He was intubated at presentation. His PO2 was 66. His pH was within normal limits, his carbon dioxide was elevated at 61 with metabolic compensation of 36. His most recent repeat pH was 7.40, PCO2 was 52, HCO3 was 32 and PO2 of 53. -Continue ventilator, PEEP of 10 and tidal volume of 400 and FiO2 of 50 -Pending sputum cultures -Repeat ABG at 2300, adjust ventilator settings as needed -Continue vancomycin, zosyn and levaquin 06/18 On ventilator, PEEP of 10, Tidal volume of 400 and FiO2 of 60. ABG: pH: 7.39, PCO2: 55, PO2: 65, HCO3: 34, CO2: 35. -Sputum culture not collected -Continue micafungin and broad spectrum antibiotics - (3) Systolic heart failure Current Visit: Yes Status: Acute Transferred from [place]. At presentation he was not hemodynamically stable. His blood pressure was 60s/40s. His rhythm was sinus tachycardic. There was no edema noted on exam. Upon auscultation he had decreased lung sounds at all lung lobes. He had an echo this morning. Per echo his EF is 20% with global systolic dysfunction. There is no previous echos to compare this finding. His blood pressure this evening is 107/66. Has history of hypertension at home and use to take three different antihypertensives at home as well as furosemide. Per family he is compliant with his medications. -Continue pressors to maintain perfusion -Repeat EKG tomorrow morning 06/18: -His MAP has improved since admission and today was low 60s with two pressors -Continue to wean the pressors as tolerated while keeping MAP above 60. Qualifiers: Heart failure chronicity: unspecified Qualified Code(s): I50.20 - Unspecified systolic (congestive) heart failure (4) Hypokalemia Current Visit: Yes Status: Acute His potassium at admission was 1.9. He has received very high amount of potassium replacement therapy and with close monitoring was not responding much. It was decided to only use IV due to lack of efficacy from PO given he has no bowel sounds, with decreased gut motility. His most initial potassium was 3.5. There is electrolyte protocol on board. -Continue to monitor and replace if below 4.0 06/18: -Resolved with 3.5 tonight. Electrolyte protocol is on board. Continue to monitor and replace. (5) LUCILA (acute kidney injury) Current Visit: Yes Status: Acute At presentation his creatinine was 1.92 and repeat creatinine was 1.54. His urine output has slightly decreased due to his worsened hemodynamic status but as his hemodynamic status started to improve so did his urine output. Since admission his urine output has been 1925 ml. -Continue to renally dose his medications -Will continue to monitor his urinary output 06/18: -His creatinine today is 1.64, likely due to decreased renal perfusion from septic shock. Will consider de-escalating vancomycin given his worsening renal function and no blood cultures positive for bacteria. He is having better urine output since his admission, with about 50 ml per hour. (6) Hypocalcemia Current Visit: Yes Status: Acute Ioninzed calcium was 0.93 this morning. He is on calcium gluconate as calcium replacement. -Continue to monitor, repeat in the morning (7) Thrombocytopenia Current Visit: Yes Status: Acute His platelets dropped from 126 to 75 overnight. There is no site of bleeding. Orders were made to rule out DIC. Fibrinogen was elevated which should be decreased in DIC. Also given there is no site of bleeding and his high risk of clotting in septic shock, SubQ heparin for DVT prophylaxis will be resumed. Continue to monitor by exam and labs. (8) Elevated troponin Current Visit: Yes Status: Acute His troponin was 0.22 at 03:35. [place], then trended to 0.61 and then went up to 0.83. This is likely due to global cardiac dysfunction due to septic shock. Stat echo was conducted and showed EF of 20% with global systolic dysfunction. His rhythm here has remain sinus tachycardic. -If his respiratory status improves further imaging will be considered tomorrow -Trending troponin, will repeat at 2300 tonight -Will repeat EKG in the morning 06/18: -His latest high troponin was 0.92. Given his acute state it is suspected the troponin is due to acute septic shock. (9) Type 2 diabetes mellitus Current Visit: Yes Status: Chronic At presentation to the [facility] ED his glucose was 313 and repeat glucose this afternoon was 197. Per family he is not compliant with his diabetic diet and drinks excessive amount of mountain dew. He was started on high sliding scale of lispro at admission here. Repeat glucose was 417. He is on IV insulin drip. There is no anion gap. 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 At home he is on respimat and albuterol. Per family he is also on home oxygen but is not compliant with it. His current respiratory distress could be worsened due to his chronic disease process. Chest xray shows diffuse bilateral opacity which is likely pulmonary congestion versus infectious cause. -Continue ventilator control -Continue broad spectrum antibiotics 06/18: -Continue ventilator. He is requiring less tidal volume, his PEEP is 10 to decrease excessive alveolar requirement to minimize lung injury. His ABG continues to have elevated CO2 and appropriate increase in HCO3 to keep the pH within normal limits. Qualifiers: Emphysema type: unspecified Qualified Code(s): J43.9 - Emphysema, unspecified (11) DVT prophylaxis Current Visit: Yes Status: Acute SUBQ heparin 5000 mg BID Subjective Principal diagnosis: septic shock Interval history: Mr. Mccarthy was seen at bedside this morning. He was sedated and intubated. His blood pressure continued to be in the 80s/40s most of the day with MAP in high 50s to low 60s. Overnight he had no acute events and responded well to fentanyl and versed for sedation. His was at bedside and I informed her of his current status which remained unchanged since his admission. Overnight his potassium remained low and he required high amounts of supplemental potassium to replete. He is having 50 ml of urine output an hour, which is slightly improved from initial presentation. The molting on his body slightly improved. His abdomen continued to have no bowel sounds with distension. He had a KUB which did not show any acute findings. His platelet count had dropped overnight and studies were conducted to rule out DIC, D-dimer was found to be significantly elevated while the fibrinogen was also elevated, which is inconsistent with DIC. Tonight his blood cultures were positive for karo albican and he was being prophylactically treated with micafungin, which was started earlier today. Objective PUL Vital signs: Last Vital Signs Temp 100.5 F H 06/18/18 11:00 Pulse 115 06/18/18 12:00 Resp 21 06/18/18 12:11 BP 52/39 06/18/18 12:11 Pulse Ox 90 06/18/18 12:11 General appearance: other (sedated and intubated) Eyes: nonicteric ENT: oropharynx moist Auscultation: bilateral: clear (unable to accurately access due to assisted ventilation) Cardiovascular: other (regular rhythm but has been tachycardic) Gastrointestinal: absent bowel sounds (absent bowel sounds with distended abdomen) Integumentary: other (some molting around the abdomen) Extremities: edema (+1 pitting edema, bilateral lower extremities) other (intubated and sedated) Ventilator Settings Ventilator Settings: Ventilator Settings, Last 8 Hours Ventilator Tidal Volume 400 Setting Ventilator Tidal Volume 400 Setting Ventilator Tidal Volume 400 Setting Ventilator Tidal Volume 400 Setting Ventilator Tidal Volume 400 Setting Ventilator Tidal Volume 400 Setting Ventilator Tidal Volume 400 Setting Ventilator Tidal Volume 400 Setting Ventilator Tidal Volume 400 Setting Ventilator Tidal Volume 400 Setting Ventilator Tidal Volume 400 Setting Ventilator Tidal Volume 400 Setting Ventilator Tidal Volume 400 Setting Ventilator Respiratory Rate 20 Setting Ventilator Respiratory Rate 20 Setting Ventilator Respiratory Rate 20 Setting Ventilator Respiratory Rate 20 Setting Ventilator Respiratory Rate 20 Setting Ventilator Respiratory Rate 20 Setting Ventilator Respiratory Rate 20 Setting Ventilator Respiratory Rate 20 Setting Ventilator Respiratory Rate 20 Setting Ventilator Respiratory Rate 20 Setting Ventilator Respiratory Rate 20 Setting Ventilator Respiratory Rate 20 Setting Ventilator Respiratory Rate 20 Setting Actual Respiratory Rate 21 Actual Respiratory Rate 20 Actual Respiratory Rate 20 Actual Respiratory Rate 20 Actual Respiratory Rate 21 Actual Respiratory Rate 20 Actual Respiratory Rate 20 Actual Respiratory Rate 20 Actual Respiratory Rate 20 Actual Respiratory Rate 20 Actual Respiratory Rate 20 Actual Respiratory Rate 22 Positive End Expiratory 10 Pressure Positive End Expiratory 10 Pressure Positive End Expiratory 10 Pressure Positive End Expiratory 10 Pressure Positive End Expiratory 10 Pressure Positive End Expiratory 10 Pressure Positive End Expiratory 10 Pressure Positive End Expiratory 10 Pressure Positive End Expiratory 10 Pressure Positive End Expiratory 10 Pressure Positive End Expiratory 10 Pressure Positive End Expiratory 10 Pressure Positive End Expiratory 10 Pressure Peak Inspiratory Airway 23 Pressure Peak Inspiratory Airway 27 Pressure Peak Inspiratory Airway 24 Pressure Peak Inspiratory Airway 25 Pressure Peak Inspiratory Airway 24 Pressure Peak Inspiratory Airway 24 Pressure Peak Inspiratory Airway 22 Pressure Peak Inspiratory Airway 22 Pressure Peak Inspiratory Airway 22 Pressure Peak Inspiratory Airway 22 Pressure Peak Inspiratory Airway 22 Pressure Peak Inspiratory Airway 22 Pressure Results - Laboratory Findings CBC and BMP: 06/18/18 03:05 06/18/18 17:39 ABG ABG pH 7.39 pH Units (7.32-7.45) 06/18/18 05:03 ABG pCO2 55 mmHg (35-45) H 06/18/18 05:03 ABG pO2 65 mmHg (85-104) L 06/18/18 05:03 ABG O2 Saturation 92 % (95-98) L 06/18/18 05:03 PT/INR, D-dimer PT 23.8 Seconds (9.4-12.1) H 06/18/18 03:05 D-Dimer 3465 ng/mLFEU (0-500) H 06/18/18 08:08 Fibrinogen: 578 PTT: 31.8 Abnormal lab findings: Abnormal lab results WBC 28.8 K/mcL (4.3-11.1) H 06/18/18 03:05 RBC 3.69 M/mcL (4.19-5.50) L 06/18/18 03:05 Hgb 11.5 g/dL (12.9-16.9) L D 06/18/18 03:05 Hct 32.6 % (37.5-50.1) L 06/18/18 03:05 RDW 15.3 % (11.5-14.5) H 06/18/18 03:05 Plt Count 75 K/mcL (140-400) L 06/18/18 03:05 MPV 13.0 fL (9.4-12.4) H 06/18/18 03:05 Band Neutrophils % 8.0 % (0-4) H 06/18/18 03:05 Neutrophils # 27.1 K/mcL (1.6-8.9) H 06/18/18 03:05 Nucleated RBCs/100 WBC 0.1 /100 WBC (0) H 06/17/18 09:34 Toxic Granulation Present (Not Present) A 06/18/18 03:05 Platelet Estimate Decreased (Normal) L 06/18/18 03:05 PT 23.8 Seconds (9.4-12.1) H 06/18/18 03:05 Fibrinogen 578 mg/dL (169-393) H 06/18/18 08:08 D-Dimer 3465 ng/mLFEU (0-500) H 06/18/18 08:08 ABG pCO2 55 mmHg (35-45) H 06/18/18 05:03 ABG pO2 65 mmHg (85-104) L 06/18/18 05:03 ABG HCO3 34 mEq/L (21-27) H 06/18/18 05:03 ABG Total CO2 35 mEq/L (20-26) H 06/18/18 05:03 ABG O2 Saturation 92 % (95-98) L 06/18/18 05:03 ABG Base Excess 7 mEq/L (-2 to 3) H 06/18/18 05:03 Sodium 129 mEq/L (136-145) L 06/18/18 03:05 Potassium 2.8 mEq/L (3.5-5.1) L D 06/18/18 10:58 Chloride 97 mEq/L (98-107) L 06/18/18 03:05 Carbon Dioxide 31 mEq/L (23-29) H 06/18/18 03:05 Creatinine 1.53 mg/dL (0.70-1.30) H 06/18/18 03:05 Est GFR ( Amer) 58 (> 60) L 06/18/18 03:05 Est GFR (Non-Af Amer) 48 (> 60) L 06/18/18 03:05 Glucose 204 mg/dL (70-105) H 06/18/18 03:05 POC Glucose 155 mg/dL (70-99) H 06/18/18 11:03 Calculated Osmolality 276 (280-300) L 06/18/18 03:05 Lactic Acid 2.4 mmol/L (0.5-2.2) H 06/18/18 03:05 Calcium 6.9 mg/dL (8.6-10.3) L 06/18/18 03:05 Venous Ioniz Calcium 0.93 mmol/L (1.15-1.35) L 06/18/18 03:46 Phosphorus 1.4 mg/dL (2.7-4.5) L 06/18/18 03:05 Direct Bilirubin 0.5 mg/dL (0.0-0.2) H 06/18/18 03:05 AST 48 Units/L (13-39) H 06/18/18 03:05 Troponin I 0.92 ng/mL (< 0.04) H* 06/17/18 22:33 Serum Total Protein 5.1 g/dL (6.4-8.9) L 06/18/18 03:05 Albumin 2.5 g/dL (3.5-5.7) L 06/18/18 03:05 Albumin/Globulin Ratio 1.0 (1.1-2.2) L 06/18/18 03:05 Urine Opiates Screen Positive ng/mL (Bdxdfv=471) H 06/18/18 10:37 U Benzodiazepines Scrn Positive ng/mL (Djkwuj=992) H 06/18/18 10:37 - Diagnostic Findings Chest x-ray: report reviewed (persistent bibasilar opacities), image reviewed Additional studies: KUB, which did not show any acute findings - Clinical Findings Intake & Output: Intake & Output 06/17/18 06/18/18 06/18/18 23:59 07:59 15:59 Intake Total 2565 / 2565 3133 / 3133 1550 / 1550 Output Total 1850 / 1850 300 / 300 350 / 350 Balance 715 / 715 2833 / 2833 1200 / 1200 Weight 124.8 kg 121 kg Consult Discharge Plan - Plan Referrals: Sheryl Stahl CNP [Primary Care Provider] - <Ludin Barrett - Last Filed: 06/19/18 23:17> Date of Encounter: 06/19/18 Objective PUL Vital signs: Last Vital Signs Temp 97.4 F L 06/19/18 19:00 Pulse 98 06/19/18 21:00 Resp 22 06/19/18 21:41 BP 91/56 06/19/18 21:41 Pulse Ox 91 06/19/18 21:41 Ventilator Settings Ventilator Settings: Ventilator Settings, Last 8 Hours Ventilator Tidal Volume 380 Setting Ventilator Tidal Volume 380 Setting Ventilator Tidal Volume 380 Setting Ventilator Tidal Volume 380 Setting Ventilator Tidal Volume 380 Setting Ventilator Tidal Volume 380 Setting Ventilator Tidal Volume 380 Setting Ventilator Tidal Volume 380 Setting Ventilator Tidal Volume 380 Setting Ventilator Tidal Volume 380 Setting Ventilator Tidal Volume 380 Setting Ventilator Respiratory Rate 22 Setting Ventilator Respiratory Rate 22 Setting Ventilator Respiratory Rate 22 Setting Ventilator Respiratory Rate 22 Setting Ventilator Respiratory Rate 22 Setting Ventilator Respiratory Rate 22 Setting Ventilator Respiratory Rate 22 Setting Ventilator Respiratory Rate 22 Setting Ventilator Respiratory Rate 22 Setting Ventilator Respiratory Rate 22 Setting Ventilator Respiratory Rate 22 Setting Actual Respiratory Rate 22 Actual Respiratory Rate 22 Actual Respiratory Rate 22 Actual Respiratory Rate 22 Actual Respiratory Rate 22 Actual Respiratory Rate 22 Actual Respiratory Rate 23 Actual Respiratory Rate 24 Actual Respiratory Rate 24 Actual Respiratory Rate 22 Actual Respiratory Rate 25 Positive End Expiratory 10 Pressure Positive End Expiratory 10 Pressure Positive End Expiratory 10 Pressure Positive End Expiratory 10 Pressure Positive End Expiratory 10 Pressure Positive End Expiratory 10 Pressure Positive End Expiratory 10 Pressure Positive End Expiratory 10 Pressure Positive End Expiratory 10 Pressure Positive End Expiratory 10 Pressure Positive End Expiratory 10 Pressure Peak Inspiratory Airway 35 Pressure Peak Inspiratory Airway 36 Pressure Peak Inspiratory Airway 37 Pressure Peak Inspiratory Airway 32 Pressure Peak Inspiratory Airway 35 Pressure Peak Inspiratory Airway 35 Pressure Peak Inspiratory Airway 33 Pressure Peak Inspiratory Airway 36 Pressure Peak Inspiratory Airway 29 Pressure Peak Inspiratory Airway 40 Pressure Peak Inspiratory Airway 31 Pressure Results - Laboratory Findings CBC and BMP: 06/19/18 03:10 06/19/18 16:15 ABG ABG pH 7.32 pH Units (7.32-7.45) 06/19/18 04:57 ABG pCO2 56 mmHg (35-45) H 06/19/18 04:57 ABG pO2 56 mmHg (85-104) L 06/19/18 04:57 ABG O2 Saturation 85 % (95-98) L 06/19/18 04:57 PT/INR, D-dimer PT 15.8 Seconds (9.4-12.1) H 06/19/18 03:10 D-Dimer 3465 ng/mLFEU (0-500) H 06/18/18 08:08 Abnormal lab findings: Abnormal lab results WBC 28.9 K/mcL (4.3-11.1) H 06/19/18 03:10 RBC 3.62 M/mcL (4.19-5.50) L 06/19/18 03:10 Hgb 11.5 g/dL (12.9-16.9) L 06/19/18 03:10 Hct 33.5 % (37.5-50.1) L 06/19/18 03:10 RDW 15.9 % (11.5-14.5) H 06/19/18 03:10 Plt Count 67 K/mcL (140-400) L 06/19/18 03:10 MPV 13.2 fL (9.4-12.4) H 06/19/18 03:10 Immature Gran % 4.8 % (0-4) H 06/19/18 03:10 Band Neutrophils % 8.0 % (0-4) H 06/18/18 03:05 Neutrophils # 25.6 K/mcL (1.6-8.9) H 06/19/18 03:10 Nucleated RBCs/100 WBC 0.1 /100 WBC (0) H 06/17/18 09:34 Toxic Granulation Present (Not Present) A 06/18/18 03:05 Platelet Estimate Decreased (Normal) L 06/19/18 03:10 PT 15.8 Seconds (9.4-12.1) H 06/19/18 03:10 Fibrinogen 578 mg/dL (169-393) H 06/18/18 08:08 D-Dimer 3465 ng/mLFEU (0-500) H 06/18/18 08:08 ABG pCO2 56 mmHg (35-45) H 06/19/18 04:57 ABG pO2 56 mmHg (85-104) L 06/19/18 04:57 ABG HCO3 29 mEq/L (21-27) H 06/19/18 04:57 ABG Total CO2 31 mEq/L (20-26) H 06/19/18 04:57 ABG O2 Saturation 85 % (95-98) L 06/19/18 04:57 Sodium 128 mEq/L (136-145) L 06/19/18 03:10 Chloride 92 mEq/L (98-107) L 06/19/18 03:10 BUN 25 mg/dL (6-20) H 06/19/18 03:10 Creatinine 1.88 mg/dL (0.70-1.30) H 06/19/18 03:10 Est GFR ( Amer) 46 (> 60) L 06/19/18 03:10 Est GFR (Non-Af Amer) 38 (> 60) L 06/19/18 03:10 Glucose 179 mg/dL (70-105) H 06/19/18 03:10 POC Glucose 105 mg/dL (70-99) H 06/19/18 22:56 Calculated Osmolality 275 (280-300) L 06/19/18 03:10 Calcium 6.3 mg/dL (8.6-10.3) L 06/19/18 03:10 Venous Ioniz Calcium 0.84 mmol/L (1.15-1.35) L 06/19/18 16:33 Direct Bilirubin 0.5 mg/dL (0.0-0.2) H 06/18/18 03:05 AST 48 Units/L (13-39) H 06/18/18 03:05 Troponin I 0.92 ng/mL (< 0.04) H* 06/17/18 22:33 Serum Total Protein 5.1 g/dL (6.4-8.9) L 06/18/18 03:05 Albumin 2.5 g/dL (3.5-5.7) L 06/18/18 03:05 Albumin/Globulin Ratio 1.0 (1.1-2.2) L 06/18/18 03:05 Procalcitonin 107.11 ng/mL (<=0.07) H 06/17/18 16:40 Vancomycin Trough 18 mcg/mL (5-10) H 06/19/18 08:20 Urine Opiates Screen Positive ng/mL (Zfxhtx=359) H 06/18/18 10:37 U Benzodiazepines Scrn Positive ng/mL (Qrmbxz=666) H 06/18/18 10:37 - Microbiology Findings Microbiology Findings: Microbiology, Last 48 Hours 06/19/18 12:46 Blood Culture - Preliminary Peripheral Venipuncture Culture is incubating and being continuously monitored for growth. Final report to follow. 06/19/18 12:46 Blood Culture - Preliminary Peripheral Venipuncture Culture is incubating and being continuously monitored for growth. Final report to follow. 06/18/18 20:45 Sputum Culture - Preliminary Sputum - Clinical Findings Intake & Output: Intake & Output 06/19/18 06/19/18 06/19/18 07:59 15:59 23:59 Intake Total 2446.5 / 2446.5 1558 / 1558 1402 / 1402 Output Total 200 / 200 200 / 200 745 / 745 Balance 2246.5 / 2246.5 1358 / 1358 657 / 657 Weight 131 kg - Attending Attestation - Attending Attestation I saw and evaluated this patient and my medical decision-making was reviewed with the Resident Physician. I agree with the documented findings, disposition and treatment plan as described except to the extent set forth below. We independently had [id number] contact with the patient I spent 45 minutes of Critical Care time with this patient. It involved decision making of high complexity to assess, manipulate, and support vital organ system failure and/or to prevent further life threatening deterioration of the patient's condition. The time involved in the performance of separately reportable procedures was not counted toward critical care time. Patient seen and examined at bedside Labs, radiology, chart personally reviewed. Management was reviewed during multidisciplinary critical care rounds. BREEDING MANAGER: Patient is arousable not following commands secondary to toxic /metabolic encephalopathy Pulm: Patient has severe VQ mismatch with some sun physiology most likely secondary to valvular prosthesis pneumonia versus pulmonary edema. He was requiring high FiO2 and high PEEP therapy wanted to prone this patient but patient became severely hemodynamically unstable which is a contraindication for pronating so we held off pronating the patient . I will volume strategy the Plateau pressure was acceptable patient currently with acceptable oxygenation and ventilation at a reduced the PEEP therapy because patient was severely hypotensive.. Since patient is hypertensive will tolerate higher FiO2 low PEEP strategy. 06/18 To continue with low tidal volume strategy patient with acceptable oxygenation and ventilation Cards: Patient has was likely subendocardial ischemia type II NM with global systolic dysfunction with an EF of 20% most likely was global systolic dysfunction is most likely due to sepsis induced no regional wall motion abnormality will give continuing trending troponins. Patient is in refractory severe septic shock with stress dose steroids.. He is on 3 different multiple vasopressors insulin (he had a Dobutrex because of this low EF as phenylephrine will reduce the cardiac output due to it's baroreceptor reflex to continue levophed and vasopressin. 06/18 Patient still in septic shock to continue Vasopressor to liberate vasopressor as tolerated . FEN-GI: Nothing by mouth for now Renal: Patient has decreased urine output most likely he will develop acute kidney injury secondary to sepsis induced ATN ID : culture done patient on broad-spectrum antibiotics most likely source for septic shock as pneumonia cannot perceive managing chest and abdomen because patient has hemodynamically unstable. When he is stable we will do CT Chest and Abdomen 06/18 Patient septic shock not improving will add antifungal Heme/Onc: Labs reviewed continue thromboprophylaxis Endo: Glucose Monitored Integ/MSK: Skin Care per routine ICU Nursing Protocol to prevent ulcers. Lines: All lines examined without evidence of infection : Dispo: Critically ill CODE: Full Code Family was fully updated .
--- NOTE | 2018-06-18 16:41 | Electrocardiograph Report ---
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
[2018-06-18 18:21] LABS: Calcium 6.5 mg/dL (8.6-10.3); Potassium 3.5 mEq/L (3.5-5.1)
[2018-06-18] MEDS: Potassium Chloride 40 MEQ/200 ML BAG IVPB PRN ×2 (18:33→19:54)
[2018-06-18] MEDS: Phenylephrine 50 MG in D5% in Water 250 ML IVC SCH (22:21)
[2018-06-19] MEDS: Norepinephrine 8 MG in D5% in Water 250 ML IVC SCH ×4 (00:25→19:24)
[2018-06-19] MEDS: Insulin Human Regular 100 UNIT in 0.9 % Sodium Chloride 100 ML IVC SCH (01:15)
[2018-06-19 03:33] LABS: Basophils % 0.2 %; Monocytes % 3.4 %
[2018-06-19 03:35] LABS: Basophils # 0.1 K/mcL (0.0-0.2); Hematocrit 33.5 % (37.5-50.1); Hemoglobin 11.5 g/dL (12.9-16.9); Immature Granulocytes % 4.8 % (0-4); Lymphocytes # 0.9 K/mcL (0.6-4.6); Lymphocytes % 3.1 %; Mean Corpuscular HGB Conc 34.3 g/dL (31.6-35.5); Mean Corpuscular Hemoglobin 31.8 pg (28.0-33.3); Mean Corpuscular Volume 92.5 fL (83.0-100.0); Mean Platelet Volume 13.2 fL (9.4-12.4); Neutrophils # 25.6 K/mcL (1.6-8.9); Red Blood Count 3.62 M/mcL (4.19-5.50); Red Cell Distribution Width 15.9 % (11.5-14.5); Segmented Neutrophils % 88.5 %
[2018-06-19 03:38] LABS: Platelet Count 67 K/mcL (140-400)
[2018-06-19 03:47] LABS: INR 1.4; Prothrombin Time 15.8 Seconds (9.4-12.1)
[2018-06-19 03:52] LABS: Calcium 6.3 mg/dL (8.6-10.3); Potassium 3.2 mEq/L (3.5-5.1)
[2018-06-19 03:55] LABS: Platelet Estimate Decreased (Normal)
[2018-06-19] MEDS: FentaNYL (PF) 1,000 MCG in 0.9 % Sodium Chloride 80 ML IVC SCH ×4 (03:55→19:26)
[2018-06-19] MEDS: Insulin Human Regular 250 UNIT in 0.9 % Sodium Chloride 250 ML IVC SCH ×2 (04:33→17:44)
[2018-06-19] MEDS: Piperacillin/Tazobactam 3.375 GM in 0.9 % Sodium Chloride Mini Bag 100 ML IVPB SCH ×3 (04:34→19:42)
[2018-06-19] MEDS: Artificial Tears SOLN 15 ML BOTTLE BOTH EYES SCH ×6 (04:34→23:45)
[2018-06-19] MEDS: Hydrocortisone Sodium Succ 100 MG/2 ML VIAL IVP SCH ×2 (04:52→11:28)
[2018-06-19] MEDS: Potassium Chloride 40 MEQ/200 ML BAG IVPB PRN ×2 (04:52→18:46)
[2018-06-19] MEDS: *HR* Heparin 5,000 UNIT/ML VIAL SQ SCH ×2 (04:52→17:44)
[2018-06-19 04:55] LABS: VBG Ionized Calcium 0.82 mmol/L (1.15-1.35)
[2018-06-19 04:55] LABS: Magnesium 2.2 mg/dL (1.6-2.6); Phosphorous 4.4 mg/dL (2.7-4.5)
[2018-06-19 05:00] LABS: ABG Base Excess 2 mEq/L (-2 to 3); ABG HCO3 29 mEq/L (21-27); ABG Oxygen Saturation 85 % (95-98); ABG PCO2 56 mmHg (35-45); ABG PH 7.32 pH Units (7.32-7.45); ABG PO2 56 mmHg (85-104); ABG TCO2 31 mEq/L (20-26); Blood Gas Modality PRVC; Blood Gas PEEP 10 cm H2O; Blood Gas Respiration Rate 20; Blood Gas VT 400 cc
[2018-06-19] MEDS: Pantoprazole 40 MG VIAL IVP SCH (09:09)
[2018-06-19] MEDS: Chlorhexidine Rinse 15 ML MOUTHWASH MM SCH ×2 (09:09→19:43)
[2018-06-19] MEDS: Vasopressin 40 UNIT in D5% in Water 100 ML IV SCH (09:11)
[2018-06-19] MEDS: Micafungin 100 MG in 0.9 % Sodium Chloride Mini Bag 100 ML IVPB SCH (09:49)
[2018-06-19] MEDS ORDERED: Vancomycin 500 MG in 0.9 % Sodium Chloride Mini Bag 100 ML IVPB ONE (11:00)
[2018-06-19] MEDS ORDERED: Vancomycin 1 EACH in EMPTY BAG 1 EACH IVPB SCH (11:00)
[2018-06-19] MEDS: Levofloxacin 750 MG/150 ML 750 MG/150 ML BAG IVPB SCH (11:29)
--- NOTE | 2018-06-19 13:41 | Pulmonology Progress Note ---
<Nikole Mooney - Last Filed: 06/19/18 20:49> Date of Encounter: 06/19/18 Time of Encounter: 13:40 Assessment and Plan (1) Septic shock Current Visit: Yes Status: Acute 06/17/18 Septic shock, unknown source. He was transferred from [facility] ED on 06/17/18. He had received 3 liters of IV fluids. At presentation he was not hemodynamically stable. He was hypokalemic, had leukocystosis, LUCILA, elevated troponin and lactic acid of 6.6. He was intubated at presentation. Since his presentation he required three different maximum doses of pressors and additional IV fluids. Currently he is on dobutamine, norepi and phenylephrine. His entire body has molting. He has a femoral central line and two peripheral lines. He also has an arterial lines. He is getting electrolyte replacement. He is on broad spectrum antibiotics. Additionally trying to keep a nice balance between sedation and comfort care without negatively affecting his hemodynamic status. Spoke with family numerous times today about goals of care. Given his acute decompensation further decisions will be made at a later time by family. -Awaiting blood cultures -MRSA swab negative and respiratory panel negative -Continuing broad spectrum antibiotics--zosyn, vancomycin and levaquin (day 1) -Currently on versed for sedation and not responding -Can consider using propofol and fentanyl, although start with low dose due to his hemodynamic status -Continue dobutamine, norepi, phenylephrine and dobutamine can be stopped or weaned first if hemodynamically improving 06/18/18 Septic shock. Blood culture returned this evening and showed yeast albican. His urine grew yeast. Preliminary fungal coverage was started with micafungin given his acute status prior to blood cultures returning. -Vasopressin was stopped. He is now on dubutamine and norepi. His pressure is stable since stopping it and his MAP is in the 60s. -Continue zosyn, vancomycin and levaquin (day 2) 06/19/18 Continue micafungin therapy. Infectious disease is consulted. He is being weaned off the dobutamine and this evening was on 12 and 25 of norepi. His MAP has remained at 66 today. Continue zosyn, vancomycin and levaquin (day 3). Will consider stopping vancomycin given negative MRSA and no abscess finding per CT. New blood cultures sent today for repeat study. (2) Acute respiratory failure with hypoxemia Current Visit: Yes Status: Acute Transferred from the ED at [facility]. It is likely due to pneumonia and septic shock. He was intubated at presentation. His PO2 was 66. His pH was within normal limits, his carbon dioxide was elevated at 61 with metabolic compensation of 36. His most recent repeat pH was 7.40, PCO2 was 52, HCO3 was 32 and PO2 of 53. -Continue ventilator, PEEP of 10 and tidal volume of 400 and FiO2 of 50 -Pending sputum cultures -Repeat ABG at 2300, adjust ventilator settings as needed -Continue vancomycin, zosyn and levaquin 06/18 On ventilator, PEEP of 10, Tidal volume of 400 and FiO2 of 60. ABG: pH: 7.39, PCO2: 55, PO2: 65, HCO3: 34, CO2: 35. -Sputum culture not collected -Continue micafungin and broad spectrum antibiotics 06/19/18 On ventilator, PEEP PEEP of 10, Tidal volume of 380 and FiO2 of 60. ABG: pH: 7.32, PCO2: 56, PO2: 56, HCO3: 29, CO2: 31. Continue to monitor. Recheck ABGs if changes in respiratory status. (3) Systolic heart failure Current Visit: Yes Status: Acute Transferred from [facility]. At presentation he was not hemodynamically stable. His blood pressure was 60s/40s. His rhythm was sinus tachycardic. There was no edema noted on exam. Upon auscultation he had decreased lung sounds at all lung lobes. He had an echo this morning. Per echo his EF is 20% with global systolic dysfunction. There is no previous echos to compare this finding. His blood pressure this evening is 107/66. Has history of hypertension at home and use to take three different antihypertensives at home as well as furosemide. Per family he is compliant with his medications. -Continue pressors to maintain perfusion -Repeat EKG tomorrow morning 06/18: -His MAP has improved since admission and today was low 60s with two pressors -Continue to wean the pressors as tolerated while keeping MAP above 60. 06/19: -His MAP has improved since admission and today it remained in the 66s with two pressors -Continue to wean dobutamine as tolerated while keeping MAP above 60. Qualifiers: Heart failure chronicity: unspecified Qualified Code(s): I50.20 - Unspecified systolic (congestive) heart failure (4) Hypokalemia Current Visit: Yes Status: Acute His potassium at admission was 1.9. He has received very high amount of potassium replacement therapy and with close monitoring was not responding much. It was decided to only use IV due to lack of efficacy from PO given he has no bowel sounds, with decreased gut motility. His most initial potassium was 3.5. There is electrolyte protocol on board. -Continue to monitor and replace if below 4.0 06/18: -Resolved with 3.5 tonight. Electrolyte protocol is on board. Continue to monitor and replace. 06/19: -Improving, stable at 3.5 today. He is on electrolyte protocol. Continue to monitor and replace. (5) LUCILA (acute kidney injury) Current Visit: Yes Status: Acute At presentation his creatinine was 1.92 and repeat creatinine was 1.54. His urine output has slightly decreased due to his worsened hemodynamic status but as his hemodynamic status started to improve so did his urine output. Since admission his urine output has been 1925 ml. -Continue to renally dose his medications -Will continue to monitor his urinary output 06/18: -His creatinine today is 1.64, likely due to decreased renal perfusion from septic shock. Will consider de-escalating vancomycin given his worsening renal function and no blood cultures positive for bacteria. He is having better urine output since his admission, with about 50 ml per hour. 06/19: His creatinine today is 1.88, likely related to ATN from septic shock. Nephrology is following. Due to decreased urine output with anascara he will likely require dialysis tomorrow. (6) Hypocalcemia Current Visit: Yes Status: Acute Ioninzed calcium was 0.84 this morning. He is on calcium gluconate as calcium replacement. -Continue to monitor, repeat in the morning (7) Thrombocytopenia Current Visit: Yes Status: Acute His platelets dropped from 126 to 75 overnight. There is no site of bleeding. Orders were made to rule out DIC. Fibrinogen was elevated which should be decreased in DIC. Also given there is no site of bleeding and his high risk of clotting in septic shock, SubQ heparin for DVT prophylaxis will be resumed. Continue to monitor by exam and labs. 06/19: His platelet count is 67 today. There is no evidence of acute blood loss, his hemoglobin is stable. There is no hematoma found. Possibly related to the shock kidney producing less erythropoetin. (8) Elevated troponin Current Visit: Yes Status: Acute His troponin was 0.22 at 03:35. Jermaine, then trended to 0.61 and then went up to 0.83. This is likely due to global cardiac dysfunction due to septic shock. Stat echo was conducted and showed EF of 20% with global systolic dysfunction. His rhythm here has remain sinus tachycardic. -If his respiratory status improves further imaging will be considered tomorrow -Trending troponin, will repeat at 2300 tonight -Will repeat EKG in the morning 06/18: -His latest high troponin was 0.92. Given his acute state it is suspected the troponin is due to acute septic shock. 06/19: -EKG on 06/18 showed no changes. His rhythm has remained sinus. Suspected to be increased due to septic shock. Echo showed LV systolic dysfunction and mild left diastolic dysfunction. (9) Type 2 diabetes mellitus Current Visit: Yes Status: Chronic At presentation to the [facility] ED his glucose was 313 and repeat glucose this afternoon was 197. Per family he is not compliant with his diabetic diet and drinks excessive amount of mountain dew. He was started on high sliding scale of lispro at admission here. Repeat glucose was 417. He is on IV insulin drip. There is no anion gap. -Continue to monitor -Continue IV insulin Qualifiers: Diabetes mellitus terminal operations manager insulin use: with mcc use Diabetes mellitus complication status: with unspecified complications Qualified Code(s) : E11.8 - Type 2 diabetes mellitus with unspecified complications; Z79.4 - halfway (current) use of insulin (10) COPD (chronic obstructive pulmonary disease) Current Visit: No Status: Chronic History of COPD. At home he is on respimat and albuterol. Per family he is also on home oxygen but is not compliant with it. His current respiratory distress could be worsened due to his chronic disease process. Chest xray shows diffuse bilateral opacity which is likely pulmonary congestion versus infectious cause. -Continue ventilator control -Continue broad spectrum antibiotics 06/18: -Continue ventilator. He is requiring less tidal volume, his PEEP is 10 to decrease excessive alveolar requirement to minimize lung injury. His ABG continues to have elevated CO2 and appropriate increase in HCO3 to keep the pH within normal limits. 06/19: -Continue ventilator. His tidal volume was reduced today and his RR was increased to help decreased the peak inspiratory plateau pressure. Will continue to monitor ABGs. Qualifiers: COPD type: emphysema Emphysema type: unspecified Qualified Code(s): J43.9 - Emphysema, unspecified (11) DVT prophylaxis Current Visit: Yes Status: Acute SUBQ heparin 5000 mg BID. Will discontinue if platelets decreased to 50,000 Subjective Principal diagnosis: septic shock Interval history: Mr. Mccarthy was seen at bedside this morning. He was sedated and intubated. His MAP has stayed at 66 today. Overnight he had no acute events and responded well to fentanyl and versed for sedation. His potassium has improved since admission after many repletions. His urine output continues to be low and had a total of 495 ml today. His abdomen continued to have no bowel sounds with distension. He underwent CT of the abdomen which showed significant anascara. His platelet count continues to drop and today was 67. He dose awaken when trying to move him but does not follow any commands. His blood cultures are positive for karo albican and he is on micofungin. Infectious disease is consulted and awaiting their further recommendations. Objective PUL Vital signs: Last Vital Signs Temp 97.1 F L 06/19/18 11:45 Pulse 98 06/19/18 12:46 Resp 22 06/19/18 12:46 BP 87/54 06/19/18 12:46 Pulse Ox 93 06/19/18 12:46 General appearance: other (intubated and sedated) ENT: oropharynx moist Auscultation: bilateral: other (unable to fully appreciate being he is on vent) Cardiovascular: other (tachycardia with hypotension) Gastrointestinal: absent bowel sounds, other (distended) Extremities: no cyanosis, edema (+1 pitting edema) Musculoskeletal: other (No hematoma or cyanosis noted) other (sedated and intubated) Ventilator Settings Ventilator Settings: Ventilator Settings, Last 8 Hours Ventilator Tidal Volume 380 Setting Ventilator Tidal Volume 380 Setting Ventilator Tidal Volume 380 Setting Ventilator Tidal Volume 380 Setting Ventilator Tidal Volume 380 Setting Ventilator Tidal Volume 380 Setting Ventilator Tidal Volume 380 Setting Ventilator Tidal Volume 400 Setting Ventilator Respiratory Rate 22 Setting Ventilator Respiratory Rate 22 Setting Ventilator Respiratory Rate 22 Setting Ventilator Respiratory Rate 22 Setting Ventilator Respiratory Rate 22 Setting Ventilator Respiratory Rate 22 Setting Ventilator Respiratory Rate 22 Setting Ventilator Respiratory Rate 20 Setting Actual Respiratory Rate 22 Actual Respiratory Rate 22 Actual Respiratory Rate 22 Actual Respiratory Rate 22 Actual Respiratory Rate 22 Actual Respiratory Rate 22 Actual Respiratory Rate 22 Actual Respiratory Rate 20 Positive End Expiratory 10 Pressure Positive End Expiratory 10 Pressure Positive End Expiratory 10 Pressure Positive End Expiratory 10 Pressure Positive End Expiratory 10 Pressure Positive End Expiratory 10 Pressure Positive End Expiratory 10 Pressure Positive End Expiratory 10 Pressure Peak Inspiratory Airway 31 Pressure Peak Inspiratory Airway 30 Pressure Peak Inspiratory Airway 31 Pressure Peak Inspiratory Airway 20 Pressure Peak Inspiratory Airway 20 Pressure Peak Inspiratory Airway 30 Pressure Peak Inspiratory Airway 40 Pressure Peak Inspiratory Airway 34 Pressure Results - Laboratory Findings CBC and BMP: 06/19/18 03:10 06/19/18 16:15 ABG ABG pH 7.32 pH Units (7.32-7.45) 06/19/18 04:57 ABG pCO2 56 mmHg (35-45) H 06/19/18 04:57 ABG pO2 56 mmHg (85-104) L 06/19/18 04:57 ABG O2 Saturation 85 % (95-98) L 06/19/18 04:57 PT/INR, D-dimer PT 15.8 Seconds (9.4-12.1) H 06/19/18 03:10 D-Dimer 3465 ng/mLFEU (0-500) H 06/18/18 08:08 Abnormal lab findings: Abnormal lab results WBC 28.9 K/mcL (4.3-11.1) H 06/19/18 03:10 RBC 3.62 M/mcL (4.19-5.50) L 06/19/18 03:10 Hgb 11.5 g/dL (12.9-16.9) L 06/19/18 03:10 Hct 33.5 % (37.5-50.1) L 06/19/18 03:10 RDW 15.9 % (11.5-14.5) H 06/19/18 03:10 Plt Count 67 K/mcL (140-400) L 06/19/18 03:10 MPV 13.2 fL (9.4-12.4) H 06/19/18 03:10 Immature Gran % 4.8 % (0-4) H 06/19/18 03:10 Band Neutrophils % 8.0 % (0-4) H 06/18/18 03:05 Neutrophils # 25.6 K/mcL (1.6-8.9) H 06/19/18 03:10 Nucleated RBCs/100 WBC 0.1 /100 WBC (0) H 06/17/18 09:34 Toxic Granulation Present (Not Present) A 06/18/18 03:05 Platelet Estimate Decreased (Normal) L 06/19/18 03:10 PT 15.8 Seconds (9.4-12.1) H 06/19/18 03:10 Fibrinogen 578 mg/dL (169-393) H 06/18/18 08:08 D-Dimer 3465 ng/mLFEU (0-500) H 06/18/18 08:08 ABG pCO2 56 mmHg (35-45) H 06/19/18 04:57 ABG pO2 56 mmHg (85-104) L 06/19/18 04:57 ABG HCO3 29 mEq/L (21-27) H 06/19/18 04:57 ABG Total CO2 31 mEq/L (20-26) H 06/19/18 04:57 ABG O2 Saturation 85 % (95-98) L 06/19/18 04:57 Sodium 128 mEq/L (136-145) L 06/19/18 03:10 Potassium 3.2 mEq/L (3.5-5.1) L 06/19/18 03:10 Chloride 92 mEq/L (98-107) L 06/19/18 03:10 BUN 25 mg/dL (6-20) H 06/19/18 03:10 Creatinine 1.88 mg/dL (0.70-1.30) H 06/19/18 03:10 Est GFR ( Amer) 46 (> 60) L 06/19/18 03:10 Est GFR (Non-Af Amer) 38 (> 60) L 06/19/18 03:10 Glucose 179 mg/dL (70-105) H 06/19/18 03:10 POC Glucose 127 mg/dL (70-99) H 06/19/18 12:08 Calculated Osmolality 275 (280-300) L 06/19/18 03:10 Calcium 6.3 mg/dL (8.6-10.3) L 06/19/18 03:10 Venous Ioniz Calcium 0.82 mmol/L (1.15-1.35) L 06/19/18 04:52 Direct Bilirubin 0.5 mg/dL (0.0-0.2) H 06/18/18 03:05 AST 48 Units/L (13-39) H 06/18/18 03:05 Troponin I 0.92 ng/mL (< 0.04) H* 06/17/18 22:33 Serum Total Protein 5.1 g/dL (6.4-8.9) L 06/18/18 03:05 Albumin 2.5 g/dL (3.5-5.7) L 06/18/18 03:05 Albumin/Globulin Ratio 1.0 (1.1-2.2) L 06/18/18 03:05 Vancomycin Trough 18 mcg/mL (5-10) H 06/19/18 08:20 Urine Opiates Screen Positive ng/mL (Npukim=754) H 06/18/18 10:37 U Benzodiazepines Scrn Positive ng/mL (Wjrlku=755) H 06/18/18 10:37 - Microbiology Findings Microbiology Findings: Microbiology, Last 48 Hours 06/19/18 12:46 Blood Culture - Preliminary Peripheral Venipuncture Culture is incubating and being continuously monitored for growth. Final report to follow. 06/19/18 12:46 Blood Culture - Preliminary Peripheral Venipuncture Culture is incubating and being continuously monitored for growth. Final report to follow. 06/18/18 20:45 Sputum Culture - Preliminary Sputum - Diagnostic Findings Additional studies: CT if the head and CT of the abdomen reviewed: no acute findings on CT of the head. CT of the chest noted anascara, bilateral lower lobe atelectasis. Diffuse infiltrated of the liver, gallbladder sludge with no thickening. Ascites in the abdomen and pelvis. - Clinical Findings Intake & Output: Intake & Output 06/18/18 06/19/18 06/19/18 23:59 07:59 15:59 Intake Total 2366 / 2366 2446.5 / 2446.5 600 / 600 Output Total 100 / 100 200 / 200 200 / 200 Balance 2266 / 2266 2246.5 / 2246.5 400 / 400 Weight 131 kg - VTE Documentation of Mechanical Device: Intermittent pneumatic compression device Consult Discharge Plan - Plan Referrals: Sheryl Stahl, OPERATIONS EXAMINER [Primary Care Provider] - <Ludin Barrett - Last Filed: 06/19/18 23:26> Date of Encounter: 06/19/18 Objective PUL Vital signs: Last Vital Signs Temp 97.4 F L 06/19/18 19:00 Pulse 98 06/19/18 21:00 Resp 22 06/19/18 21:41 BP 91/56 06/19/18 21:41 Pulse Ox 91 06/19/18 21:41 Ventilator Settings Ventilator Settings: Ventilator Settings, Last 8 Hours Ventilator Tidal Volume 380 Setting Ventilator Tidal Volume 380 Setting Ventilator Tidal Volume 380 Setting Ventilator Tidal Volume 380 Setting Ventilator Tidal Volume 380 Setting Ventilator Tidal Volume 380 Setting Ventilator Tidal Volume 380 Setting Ventilator Tidal Volume 380 Setting Ventilator Tidal Volume 380 Setting Ventilator Tidal Volume 380 Setting Ventilator Respiratory Rate 22 Setting Ventilator Respiratory Rate 22 Setting Ventilator Respiratory Rate 22 Setting Ventilator Respiratory Rate 22 Setting Ventilator Respiratory Rate 22 Setting Ventilator Respiratory Rate 22 Setting Ventilator Respiratory Rate 22 Setting Ventilator Respiratory Rate 22 Setting Ventilator Respiratory Rate 22 Setting Ventilator Respiratory Rate 22 Setting Actual Respiratory Rate 22 Actual Respiratory Rate 22 Actual Respiratory Rate 22 Actual Respiratory Rate 22 Actual Respiratory Rate 22 Actual Respiratory Rate 22 Actual Respiratory Rate 23 Actual Respiratory Rate 24 Actual Respiratory Rate 24 Actual Respiratory Rate 22 Positive End Expiratory 10 Pressure Positive End Expiratory 10 Pressure Positive End Expiratory 10 Pressure Positive End Expiratory 10 Pressure Positive End Expiratory 10 Pressure Positive End Expiratory 10 Pressure Positive End Expiratory 10 Pressure Positive End Expiratory 10 Pressure Positive End Expiratory 10 Pressure Positive End Expiratory 10 Pressure Peak Inspiratory Airway 35 Pressure Peak Inspiratory Airway 36 Pressure Peak Inspiratory Airway 37 Pressure Peak Inspiratory Airway 32 Pressure Peak Inspiratory Airway 35 Pressure Peak Inspiratory Airway 35 Pressure Peak Inspiratory Airway 33 Pressure Peak Inspiratory Airway 36 Pressure Peak Inspiratory Airway 29 Pressure Peak Inspiratory Airway 40 Pressure Results - Laboratory Findings CBC and BMP: 06/19/18 03:10 06/19/18 16:15 ABG ABG pH 7.32 pH Units (7.32-7.45) 06/19/18 04:57 ABG pCO2 56 mmHg (35-45) H 06/19/18 04:57 ABG pO2 56 mmHg (85-104) L 06/19/18 04:57 ABG O2 Saturation 85 % (95-98) L 06/19/18 04:57 PT/INR, D-dimer PT 15.8 Seconds (9.4-12.1) H 06/19/18 03:10 D-Dimer 3465 ng/mLFEU (0-500) H 06/18/18 08:08 Abnormal lab findings: Abnormal lab results WBC 28.9 K/mcL (4.3-11.1) H 06/19/18 03:10 RBC 3.62 M/mcL (4.19-5.50) L 06/19/18 03:10 Hgb 11.5 g/dL (12.9-16.9) L 06/19/18 03:10 Hct 33.5 % (37.5-50.1) L 06/19/18 03:10 RDW 15.9 % (11.5-14.5) H 06/19/18 03:10 Plt Count 67 K/mcL (140-400) L 06/19/18 03:10 MPV 13.2 fL (9.4-12.4) H 06/19/18 03:10 Immature Gran % 4.8 % (0-4) H 06/19/18 03:10 Band Neutrophils % 8.0 % (0-4) H 06/18/18 03:05 Neutrophils # 25.6 K/mcL (1.6-8.9) H 06/19/18 03:10 Nucleated RBCs/100 WBC 0.1 /100 WBC (0) H 06/17/18 09:34 Toxic Granulation Present (Not Present) A 06/18/18 03:05 Platelet Estimate Decreased (Normal) L 06/19/18 03:10 PT 15.8 Seconds (9.4-12.1) H 06/19/18 03:10 Fibrinogen 578 mg/dL (169-393) H 06/18/18 08:08 D-Dimer 3465 ng/mLFEU (0-500) H 06/18/18 08:08 ABG pCO2 56 mmHg (35-45) H 06/19/18 04:57 ABG pO2 56 mmHg (85-104) L 06/19/18 04:57 ABG HCO3 29 mEq/L (21-27) H 06/19/18 04:57 ABG Total CO2 31 mEq/L (20-26) H 06/19/18 04:57 ABG O2 Saturation 85 % (95-98) L 06/19/18 04:57 Sodium 128 mEq/L (136-145) L 06/19/18 03:10 Chloride 92 mEq/L (98-107) L 06/19/18 03:10 BUN 25 mg/dL (6-20) H 06/19/18 03:10 Creatinine 1.88 mg/dL (0.70-1.30) H 06/19/18 03:10 Est GFR ( Amer) 46 (> 60) L 06/19/18 03:10 Est GFR (Non-Af Amer) 38 (> 60) L 06/19/18 03:10 Glucose 179 mg/dL (70-105) H 06/19/18 03:10 POC Glucose 105 mg/dL (70-99) H 06/19/18 22:56 Calculated Osmolality 275 (280-300) L 06/19/18 03:10 Calcium 6.3 mg/dL (8.6-10.3) L 06/19/18 03:10 Venous Ioniz Calcium 0.84 mmol/L (1.15-1.35) L 06/19/18 16:33 Direct Bilirubin 0.5 mg/dL (0.0-0.2) H 06/18/18 03:05 AST 48 Units/L (13-39) H 06/18/18 03:05 Troponin I 0.92 ng/mL (< 0.04) H* 06/17/18 22:33 Serum Total Protein 5.1 g/dL (6.4-8.9) L 06/18/18 03:05 Albumin 2.5 g/dL (3.5-5.7) L 06/18/18 03:05 Albumin/Globulin Ratio 1.0 (1.1-2.2) L 06/18/18 03:05 Procalcitonin 107.11 ng/mL (<=0.07) H 06/17/18 16:40 Vancomycin Trough 18 mcg/mL (5-10) H 06/19/18 08:20 Urine Opiates Screen Positive ng/mL (Ncudxi=774) H 06/18/18 10:37 U Benzodiazepines Scrn Positive ng/mL (Nghwwt=368) H 06/18/18 10:37 - Microbiology Findings Microbiology Findings: Microbiology, Last 48 Hours 06/19/18 12:46 Blood Culture - Preliminary Peripheral Venipuncture Culture is incubating and being continuously monitored for growth. Final report to follow. 06/19/18 12:46 Blood Culture - Preliminary Peripheral Venipuncture Culture is incubating and being continuously monitored for growth. Final report to follow. 06/18/18 20:45 Sputum Culture - Preliminary Sputum - Clinical Findings Intake & Output: Intake & Output 06/19/18 06/19/18 06/19/18 07:59 15:59 23:59 Intake Total 2446.5 / 2446.5 1558 / 1558 1402 / 1402 Output Total 200 / 200 200 / 200 745 / 745 Balance 2246.5 / 2246.5 1358 / 1358 657 / 657 Weight 131 kg - Attending Attestation - Attending Attestation I saw and evaluated this patient and my medical decision-making was reviewed with the Resident Physician. I agree with the documented findings, disposition and treatment plan as described except to the extent set forth below. We independently had [id number] contact with the patient I spent 40 minutes of Critical Care time with this patient. It involved decision making of high complexity to assess, manipulate, and support vital organ system failure and/or to prevent further life threatening deterioration of the patient's condition. The time involved in the performance of separately reportable procedures was not counted toward critical care time. Patient seen and examined at bedside Labs, radiology, chart personally reviewed. Management was reviewed during multidisciplinary critical care rounds. USABILITY ENGINEER: Patient is arousable not following commands secondary to toxic /metabolic encephalopathy Pulm: Patient has severe VQ mismatch with some sun physiology most likely secondary to valvular prosthesis pneumonia versus pulmonary edema. He was requiring high FiO2 and high PEEP therapy wanted to prone this patient but patient became severely hemodynamically unstable which is a contraindication for pronating so we held off pronating the patient . I will volume strategy the Plateau pressure was acceptable patient currently with acceptable oxygenation and ventilation at a reduced the PEEP therapy because patient was severely hypotensive.. Since patient is hypertensive will tolerate higher FiO2 low PEEP strategy. 06/18 To continue with low tidal volume strategy patient with acceptable oxygenation and ventilation 06/19 adjusted tidal volume to keep the plateau pressure less than 30 acceptable oxygenation and ventilation Cards: Patient has was likely subendocardial ischemia type II OH with global systolic dysfunction with an EF of 20% most likely was global systolic dysfunction is most likely due to sepsis induced no regional wall motion abnormality will give continuing trending troponins. Patient is in refractory severe septic shock with stress dose steroids.. He is on 3 different multiple vasopressors insulin (he had a Dobutrex because of this low EF as phenylephrine will reduce the cardiac output due to it's baroreceptor reflex to continue levophed and vasopressin. 06/18 Patient still in septic shock to continue Vasopressor to liberate vasopressor as tolerated . 06/19 Patient is off Vasopression , to liberate dobutamine next and then Levophed . FEN-GI: Nothing by mouth for now Renal: Patient has decreased urine output most likely he will develop acute kidney injury secondary to sepsis induced ATN ID : culture done patient on broad-spectrum antibiotics most likely source for septic shock as pneumonia cannot perceive managing chest and abdomen because patient has hemodynamically unstable. When he is stable we will do CT Chest and Abdomen 06/18 Patient septic shock not improving will add antifungal 06/19 Blood culture growing karo in blood patient was started on antifungal yesterday to continue micafungin and broad spectrum antibiotics will get Ct chest abdomen and pelvis . Heme/Onc: Labs reviewed has some thrombocytopenia continue thromboprophylaxis Endo: Glucose Monitored Integ/MSK: Skin Care per routine ICU Nursing Protocol to prevent ulcers. Lines: All lines examined without evidence of infection : Dispo: Critically ill CODE: Full Code Family was fully updated .
[2018-06-19 16:36] LABS: VBG Ionized Calcium 0.84 mmol/L (1.15-1.35)
--- NOTE | 2018-06-19 21:29 | Nephrology Consult Note ---
Date of Encounter: 06/19/18 Time of Encounter: 21:27 Assessment and Plan (1) LCUILA (acute kidney injury) Current Visit: Yes Status: Acute Patient with acute kidney injury secondary to septic shock. My evaluation the patient does not need dialysis, but according to his he would be willing to utilize dialysis if needed. Continue with supportive care. I recommend a volume positive state. Agree with blood pressure support. No need for dialysis at this time. (2) Acute respiratory failure with hypoxemia Current Visit: Yes Status: Acute He is currently intubated. Per critical care team. (3) Hypocalcemia Current Visit: Yes Status: Acute RePlace as needed. (4) Hypokalemia Current Visit: Yes Status: Acute With high dose potassium replacement the patient's potassium level is getting better. (5) Septic shock Current Visit: Yes Status: Acute Continue pressors as needed. 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 Esparza is a 52-year-old gentleman with a history of obesity presents secondary to shortness of breath the patient currently is in septic shock with fungemia. He had profound hypokalemia that is improving with high dose potassium replacement. He is developing acute kidney injury and nephrology was consulted to assist with management. At the time my evaluation the patient is intubated and sedated and on pressors. Past Med Surg Social Fam HX - Past Medical History Medical history: asthma, COPD, GERD, hypertension, other Additional medical history: back problems Psychiatric history: anxiety, depression - Social History Smoking Status: Former smoker Smokeless Tobacco Status: No Alcohol use: none Drug use: none Medications and Allergies Ipratropium/Albuterol Sulfate [Combivent Respimat Inhal [place]] 4 gm IH DAILY [History] Albuterol Sulfate [Proair Hfa] 2 puff IH Q4HR PRN 06/17/18 [History] Aspirin Enteric Coated [Aspirin EC] 81 mg PO DAILY 06/17/18 [History] Carvedilol [Carvedilol] 3.125 mg PO BID 06/17/18 [History] Citalopram [CeleXA] 20 mg PO DAILY 06/17/18 [History] Fluticasone Propionate Nasal [Flonase] 1 puff NS DAILY 06/17/18 [History] Fluticasone/Vilanterol [Breo Ellipta 200-25 Mcg INH] 1 each IH DAILY 06/17/18 [ History] Furosemide [Lasix] 40 mg PO BID 06/17/18 [History] Gabapentin [Neurontin] 800 mg PO QID 06/17/18 [History] Insulin Glargine,Hum.rec.anlog [Basaglar Kwikpen U-100] 40 unit SQ BID 06/17/18 [History] Losartan/Hydrochlorothiazide [Losartan-Hctz 100-25 mg Tab] 1 tab PO DAILY [History] Metoprolol [Lopressor] 25 mg PO BID 06/17/18 [History] Montelukast [Singulair] 10 mg PO HS 06/17/18 [History] OxyCODONE/APAP 10/325 [Percocet 10/325 MG] 1 tab PO TID 06/17/18 [History] Pantoprazole Sodium 40 mg PO DAILY 06/17/18 [History] Potassium Chloride [K-Tab ER] 20 meq PO DAILY 06/17/18 [History] Pravastatin Sodium [Pravachol] 40 mg PO DAILY 06/17/18 [History] 3 Allergy/AdvReac Type Severity Reaction Status Date / Time Sulfa (Sulfonamide Allergy Rash Verified 01/28/16 21:39 Antibiotics) Review of Systems ROS unobtainable: due to endotracheal tube, due to mental status Exam - Vital Signs Vital signs: Initial Vital Signs Temp Pulse Resp BP Pulse Ox 101.4 F H 101 16 68/38 95 06/17/18 09:02 06/17/18 09:02 06/17/18 09:02 06/17/18 09:02 06/17/18 09:02 Vital Signs - Last 8 Hours Temp Pulse Resp BP Pulse Ox 06/19/18 21:00 98 22 89/56 91 06/19/18 20:00 99 22 89/56 91 06/19/18 19:48 98 06/19/18 19:27 22 76/47 90 06/19/18 19:00 97.4 F L 99 22 78/48 90 06/19/18 18:45 97.4 F L 06/19/18 18:30 106 23 89/56 90 06/19/18 18:02 91 06/19/18 17:00 105 24 101/55 90 06/19/18 16:30 97.0 F L 06/19/18 16:03 100 22 96/63 91 06/19/18 15:28 22 70/50 90 06/19/18 15:17 101 25 97/56 92 06/19/18 15:09 102 24 97/59 92 06/19/18 14:51 106 22 91/58 93 06/19/18 13:50 31 93 Intake and Output 06/19/18 06/19/18 06/19/18 07:59 15:59 23:59 Intake Total 2446.5 / 2446.5 1558 / 1558 1402 / 1402 Output Total 200 / 200 200 / 200 145 / 145 Balance 2246.5 / 2246.5 1358 / 1358 1257 / 1257 Intake: IV Fluids 2446.5 / 2446.5 1558 / 1558 1402 / 1402 DOBUTamine Premix 250 MG/250 ML 1000 / 1000 750 / 750 500 / 500 250 mg In 250 ml @ 10 MCG/KG/ MIN 67.68 mls/hr IVC .Q3H42M [facility] Rx#:[id number] FentaNYL (PF) 1,000 MCG In 0.9 100 / 100 200 / 200 100 / 100 % Sodium Chloride 80 ML @ 50 MCG/HR 5 mls/hr IVC CONT [facility] Rx #:[id number] HumuLIN R 100 UNIT In 0.9 % 202 / 202 Sodium Chloride 100 ML @ Per Protocol IVC CONT [facility] Rx#: [id number] HumuLIN R 250 UNIT In 0.9 % 118.5 / 118.5 134 / 134 Sodium Chloride 250 ML @ Per Protocol IVC CONT [facility] Rx#: [id number] Levophed 8 MG In Dextrose 5% 516 / 516 258 / 258 258 / 258 250 ML @ 30 MCG/MIN 58.05 mls/ hr IVC CONT [facility] Rx#:[id number] Calcium Gluconate 1,000 MG In 0 110 / 110 110 / 110 .9 % Sodium Chloride 100 ML @ 220 mls/hr IVPB Q6HR PRN Rx#: [id number] Levaquin Premix 750mg/150 mL 150 / 150 750 mg In 150 ml @ 100 mls/hr IVPB Q24H [facility] Rx#:[id number] Mycamine 100 MG In 0.9 % Sodium 100 / 100 Chloride (Mini-Bag +) 100 ML @ 100 mls/hr IVPB DAILY [facility] Rx#: [id number] Zosyn 3.375 GM In 0.9 % Sodium 200 / 200 100 / 100 Chloride (Mini-Bag +) 100 ML @ 25 mls/hr IVPB Q8H [facility] Rx#: [id number] Potassium Chloride 20 mEq/100 200 / 200 200 / 200 mL 40 meq In 200 ml @ 100 mls/ hr IVPB Q1H PRN Rx#:[id number] Vancocin 500 MG In 0.9 % Sodium 100 / 100 Chloride (Mini-Bag +) 100 ML @ 100 mls/hr IVPB ONCE ONE Rx#: [id number] Output: Catheter 200 / 200 200 / 200 145 / 145 Other: Weight 131 kg Blood Glucose* 162 126 92 Patient Weight 06/19/18 23:59 Weight 131 kg - General Appearance General appearance: well-developed, well-nourished, obese EENT: ATNC Neck: supple Cardiology: edema, regular rate Gastrointestinal: obese Integumentary: warm and dry Results - Lab Results 06/19/18 03:10 06/19/18 16:15 Most recent lab results ABG pH 7.32 pH Units (7.32-7.45) 06/19/18 04:57 ABG pCO2 56 mmHg (35-45) H 06/19/18 04:57 ABG pO2 56 mmHg (85-104) L 06/19/18 04:57 ABG HCO3 29 mEq/L (21-27) H 06/19/18 04:57 ABG O2 Saturation 85 % (95-98) L 06/19/18 04:57 Calcium 6.3 mg/dL (8.6-10.3) L 06/19/18 03:10 Phosphorus 4.4 mg/dL (2.7-4.5) 06/19/18 03:10 Magnesium 2.2 mg/dL (1.6-2.6) 06/19/18 03:10 Urine Sodium 128.8 mEq/L 06/17/18 18:15 Consult Discharge Plan - Plan Referrals: Sheryl Stahl CNP [Primary Care Provider] -
[2018-06-20] MEDS: FentaNYL (PF) 1,000 MCG in 0.9 % Sodium Chloride 80 ML IVC SCH ×6 (00:26→21:23)
[2018-06-20] MEDS: Norepinephrine 8 MG in D5% in Water 250 ML IVC SCH ×5 (01:01→22:24)
[2018-06-20] MEDS: Piperacillin/Tazobactam 3.375 GM in 0.9 % Sodium Chloride Mini Bag 100 ML IVPB SCH ×3 (02:56→20:07)
[2018-06-20] MEDS: Artificial Tears SOLN 15 ML BOTTLE BOTH EYES SCH ×6 (02:56→23:10)
[2018-06-20 03:47] LABS: Nucleated Red Blood Cells 0.1 /100 WBC (0)
[2018-06-20 03:49] LABS: Basophils # 0.1 K/mcL (0.0-0.2); Basophils % 0.2 %; Hematocrit 32.8 % (37.5-50.1); Hemoglobin 11.1 g/dL (12.9-16.9); Immature Granulocytes % 2.1 % (0-4); Immature Platelets 28.8 % (1.1-6.1); Lymphocytes # 1.4 K/mcL (0.6-4.6); Lymphocytes % 6.3 %; Mean Corpuscular HGB Conc 33.8 g/dL (31.6-35.5); Mean Corpuscular Hemoglobin 31.5 pg (28.0-33.3); Mean Corpuscular Volume 93.2 fL (83.0-100.0); Monocytes % 4.4 %; Neutrophils # 19.7 K/mcL (1.6-8.9); Red Blood Count 3.52 M/mcL (4.19-5.50); Red Cell Distribution Width 15.9 % (11.5-14.5)
[2018-06-20 03:53] LABS: Platelet Count 72 K/mcL (140-400)
[2018-06-20 04:20] LABS: Calcium 6.3 mg/dL (8.6-10.3); Magnesium 2.1 mg/dL (1.6-2.6); Phosphorous 4.4 mg/dL (2.7-4.5); Potassium 3.7 mEq/L (3.5-5.1)
[2018-06-20] MEDS: Potassium Chloride 40 MEQ/200 ML BAG IVPB PRN (05:18)
[2018-06-20] MEDS: *HR* Heparin 5,000 UNIT/ML VIAL SQ SCH ×2 (05:18→18:26)
[2018-06-20] MEDS: Vasopressin 40 UNIT in D5% in Water 100 ML IV SCH ×2 (05:42→10:23)
[2018-06-20 05:48] LABS: ABG Base Excess -1 mEq/L (-2 to 3); ABG HCO3 26 mEq/L (21-27); ABG Oxygen Saturation 93 % (95-98); ABG PCO2 56 mmHg (35-45); ABG PH 7.28 pH Units (7.32-7.45); ABG PO2 75 mmHg (85-104); ABG TCO2 28 mEq/L (20-26); Blood Gas Modality VC; Blood Gas PEEP 10 cm H2O; Blood Gas Respiration Rate 22; Blood Gas VT 380 cc
[2018-06-20] MEDS: Micafungin 100 MG in 0.9 % Sodium Chloride Mini Bag 100 ML IVPB SCH (08:15)
[2018-06-20] MEDS: Chlorhexidine Rinse 15 ML MOUTHWASH MM SCH ×2 (08:16→20:07)
[2018-06-20] MEDS: Pantoprazole 40 MG VIAL IVP SCH (08:16)
[2018-06-20] MEDS ORDERED: Vancomycin 500 MG in 0.9 % Sodium Chloride Mini Bag 100 ML IVPB ONE (09:00)
--- NOTE | 2018-06-20 09:13 | Nephrology Progress Note ---
Date of Encounter: 06/20/18 Time of Encounter: 08:45 - Assessment and Plan (1) LUCILA (acute kidney injury) Current Visit: Yes Status: Acute Patient with acute kidney injury secondary to septic shock with fungemia. He is currently on 2 pressors, dobutamine and levophed and continues to be hypotensive. Kidney function continues to deteriorate: SCr = 2.47/ 1.88/ 1.64. Hyponatremia gradually worsening, currently 126. Patient also with respiratory acidosis. I recommend CVVHD to be initiated today [id number] Continue to avoid nephrotoxins if possible. Strict I/Os. Spoke with senior resident Dr. Priest at ICU, who will place temporary HD catheter. (2) Acute respiratory failure with hypoxemia Current Visit: Yes Status: Acute He is currently intubated. Per critical care team. (3) Thrombocytopenia Current Visit: Yes Status: Chronic Platelets = 72 today. Baseline approximately 200. Unknown etiology. I recommend discontinuing heparin if appropriate. Consider hematology consult (4) Hypocalcemia Current Visit: Yes Status: Acute Supplement as needed. (5) Hypokalemia Current Visit: Yes Status: Acute Resolved. currently K+ = 3.7 (6) Septic shock Current Visit: Yes Status: Acute Continue pressors and antibiotics/antifungal as needed. 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 Well sedated and unable to provide subjective. Currently on 2 pressors. No overnight events. Objective - Vital Signs Vital signs: Vital Signs Temp Pulse Resp BP Pulse Ox 06/20/18 08:15 95 24 88/59 93 06/20/18 07:49 24 77/54 93 06/20/18 07:34 97.6 F 06/20/18 06:00 101 24 79/49 91 06/20/18 05:44 22 79/48 92 06/20/18 05:00 96 23 81/55 91 06/20/18 04:35 97.4 F L 06/20/18 04:00 99 25 79/53 91 06/20/18 03:17 22 83/56 90 06/20/18 03:00 96 22 83/56 92 06/20/18 02:00 95 22 82/54 90 06/20/18 01:20 24 79/52 90 06/20/18 01:00 96 22 83/52 90 06/20/18 00:00 102 22 74/51 91 06/19/18 23:24 27 88/56 94 06/19/18 23:00 94 24 88/56 91 06/19/18 22:00 97 22 97/63 91 06/19/18 21:41 22 91/56 91 06/19/18 21:00 98 22 89/56 91 06/19/18 20:00 99 22 89/56 91 06/19/18 19:48 98 06/19/18 19:27 22 76/47 90 06/19/18 19:00 97.4 F L 99 22 78/48 90 06/19/18 18:45 97.4 F L 06/19/18 18:30 106 23 89/56 90 06/19/18 18:02 91 06/19/18 17:00 105 24 101/55 90 06/19/18 16:30 97.0 F L 06/19/18 16:03 100 22 96/63 91 06/19/18 15:28 22 70/50 90 06/19/18 15:17 101 25 97/56 92 06/19/18 15:09 102 24 97/59 92 06/19/18 14:51 106 22 91/58 93 06/19/18 13:50 31 93 06/19/18 13:00 106 22 91/58 93 06/19/18 12:46 98 22 87/54 93 06/19/18 11:50 22 91/59 93 06/19/18 11:45 97.1 F L 06/19/18 11:17 98 22 89/54 93 06/19/18 11:00 98 22 89/54 93 06/19/18 10:48 101 22 81/53 93 06/19/18 09:41 27 85/56 92 06/19/18 09:24 96.8 F L 101 22 87/63 94 Intake and Output 06/19/18 06/20/18 06/20/18 23:59 07:59 15:59 Intake Total 1752 / 1752 1689.5 / 1689.5 Output Total 745 / 745 90 / 90 Balance 1007 / 1007 1599.5 / 1599.5 Intake: IV Fluids 1752 / 1752 1689.5 / 1689.5 DOBUTamine Premix 250 MG/250 ML 750 / 750 750 / 750 250 mg In 250 ml @ 10 MCG/KG/ MIN 67.68 mls/hr IVC .Q3H42M [facility] Rx#:[id number] FentaNYL (PF) 1,000 MCG In 0.9 100 / 100 200 / 200 % Sodium Chloride 80 ML @ 50 MCG/HR 5 mls/hr IVC CONT [facility] Rx #:[id number] HumuLIN R 250 UNIT In 0.9 % 134 / 134 123.5 / 123.5 Sodium Chloride 250 ML @ Per Protocol IVC CONT [facility] Rx#: [id number] Levophed 8 MG In Dextrose 5% 258 / 258 516 / 516 250 ML @ 30 MCG/MIN 58.05 mls/ hr IVC CONT [facility] Rx#:[id number] Calcium Gluconate 1,000 MG In 0 110 / 110 .9 % Sodium Chloride 100 ML @ 220 mls/hr IVPB Q6HR PRN Rx#: [id number] Zosyn 3.375 GM In 0.9 % Sodium 200 / 200 100 / 100 Chloride (Mini-Bag +) 100 ML @ 25 mls/hr IVPB Q8H [facility] Rx#: [id number] Potassium Chloride 20 mEq/100 200 / 200 mL 40 meq In 200 ml @ 100 mls/ hr IVPB Q1H PRN Rx#:[id number] Output: Gastric Tube Lavage Amount 600 / 600 Oral 600 / 600 Catheter 145 / 145 90 / 90 Other: Weight 134 kg Blood Glucose* 105 102 Patient Weight 06/20/18 23:59 Weight 134 kg - General Appearance Exam: General appearance: well-developed, well-nourished, obese EENT: ATNC Neck: supple Cardiology: edema diffuse, regular rate Gastrointestinal: obese Integumentary: warm and dry - Lab 06/20/18 03:15 06/20/18 03:15 Most recent lab results ABG pH 7.28 pH Units (7.32-7.45) L 06/20/18 05:43 ABG pCO2 56 mmHg (35-45) H 06/20/18 05:43 ABG pO2 75 mmHg (85-104) L 06/20/18 05:43 ABG HCO3 26 mEq/L (21-27) 06/20/18 05:43 ABG O2 Saturation 93 % (95-98) L 06/20/18 05:43 Calcium 6.3 mg/dL (8.6-10.3) L 06/20/18 03:15 Phosphorus 4.4 mg/dL (2.7-4.5) 06/20/18 03:15 Magnesium 2.1 mg/dL (1.6-2.6) 06/20/18 03:15 Urine Sodium 128.8 mEq/L 06/17/18 18:15 - VTE Documentation of Mechanical Device: Intermittent pneumatic compression device Consult Discharge Plan - Plan Referrals: Sheryl Stahl, DATA COORDINATOR [Primary Care Provider] -
[2018-06-20 10:03] LABS: INR 1.3; Prothrombin Time 14.9 Seconds (9.4-12.1)
--- NOTE | 2018-06-20 10:54 | Infectious Disease Consult ---
Date of Encounter: 06/20/18 Time of Encounter: 10:49 Assessment and Plan (1) Septic shock Status: Acute Assessment and plan: The patient had 4 surgeries criteria plus lactic acidosis, acute kidney injury, acute encephalopathy, and hypotension requiring vasopressors. Likely secondary to candidemia, UTI, and possible pneumonia. Improved. Leukocytosis trending down. Afebrile for 24 hours. Continues to have some intermittent tachycardia, but overall improved. Remains intubated and sedated so unable to assess his mental status. Acute kidney injury is worsening, but lactic acidosis resolved. Blood cultures obtained 06/17/18 are +2 out of 2 sets for Marisela albicans. Sensitivities are pending. Repeat blood cultures obtained 06/19/18 are pending 2 sets. (2) Candidemia Status: Acute Assessment and plan: Causative organism: Marisela albicans. Source: unclear. CT of the abdomen and pelvis is negative. He has no indwelling lines or catheters. His urine culture is positive for Yeast species. Blood cultures obtained 06/17/18 are +2 out of 2 sets for Marisela albicans. Sensitivities are pending. Repeat blood cultures obtained 06/19/18 are pending 2 sets. Continue micafungin 100 mg IV daily. Repeat LFTs now. Duration of treatment depends on the clinical picture. Monitor liver function tests closely. Await sensitivities on blood cultures. We will de-escalate if/when able. Recommend ophthalmology to evaluate once patient stabilizes. (3) Pneumonia Status: Suspected Assessment and plan: Location: Bilateral lower lobes. Causative organism: Unclear. Consider aspiration since the patient had altered mental status and was recently intubated. CT of the chest showed bilateral lower lobe infiltrates versus atelectasis. The patient does have a large amount of secretions coming from his ET tube. Discussed with the pulmonary team. Concern for pneumonia from their standpoint. MRSA screen completed 06/17/18 is negative. Sputum culture is NGTD. Check S. pneumo and Legionella UAT. Check RIP. Given that the patient continues to have septic shock and required vasopressors , we will continue vancomycin IV for now. Pharmacy to dose. Goal trough approximately 15. Continue Zosyn 3.375 g IV Q12H for now. Will need to switch to Q8H if/when CRRT is started. Continue Levaquin 750mg IV Q48H for now. If UATs are negative, can discontinue. Duration of treatment depends on the clinical picture. Monitor renal function and for drug toxicity and dose-adjust antibiotics. Qualifiers: Pneumonia type: due to unspecified organism Laterality: bilateral Lung location: lower lobe of lung Qualified Code(s): J18.1 - Lobar pneumonia, unspecified organism (4) UTI (urinary tract infection) Status: Acute Assessment and plan: Causative organism: Yeast species, likely C. albicans considering blood culture results. Unclear if the patient was symptomatic prior to admission. Continue Micafungin as above for now. De-escalate if/when able based on susceptibilities. Qualifiers: Urinary tract infection type: site unspecified Hematuria presence: without hematuria Qualified Code(s): N39.0 - Urinary tract infection, site not specified (5) LUCILA (acute kidney injury) Status: Acute Assessment and plan: Likely multifactorial: sepsis + hypotension + other. Worse this morning. Urine output diminished. Nephrology consulted and following. Planning to start CRRT today. Continue to trend. Dose-adjust medications. (6) Lactic acidosis Status: Acute Assessment and plan: Likely secondary to sepsis. Resolved. (7) Thrombocytopenia Status: Acute Assessment and plan: Likely secondary to sepsis. LFTs abnormal on admission. Repeat LFTs now. Continue to trend. No acute bleeding noted on exam. Further workup and management per the primary team. (8) Acute respiratory failure with hypoxemia Status: Acute Assessment and plan: Likely secondary to PNA vs. pulmonary edema. Currently intubated. Vent management per the pulmonary team. (9) Systolic heart failure Status: Acute Assessment and plan: TTE was sub-optimal, but showed approximate EF 20%. Qualifiers: Heart failure chronicity: unspecified Qualified Code(s): I50.20 - Unspecified systolic (congestive) heart failure (10) Hypokalemia Status: Acute Assessment and plan: Resolved. (11) Elevated troponin Status: Acute Assessment and plan: Management per the primary team. (12) Type 2 diabetes mellitus Status: Chronic Assessment and plan: Recommend aggressive glucose monitoring and control. Management per the primary team. 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 Mccarthy is a 52 year old male with a past medical history of asthma, COPD, GERD , hypertension, diabetes, anxiety, and depression. The patient was admitted to the hospital June 17 for A. fib, arms, and sepsis. We are consulted June 20 of further recommendations for candidemia. Briefly, the patient to 52-year-old male with past medical history as stated above. The patient is currently intubated and sedated and there is no family at the bedside, therefore, most of the information is obtained from the medical record. Apparently, the patient presented to [facility] emergency department with complaints of hyperglycemia and altered mental status. Upon arrival, he was febrile, tachycardic, tachypneic. He had a white blood cell count of 32,000 with neutrophilic predominance. He had a acute kidney injury, lactic acidosis, and elevated liver function tests. His troponin was positive at 0.22. Due to the patient's altered mental status, the patient was sedated and intubated to protect his airway. Post intubation, he had A. fib RVR that responded to a dose of IV metoprolol. He also became hypotensive with initiation of the sedation. He received 3 L of normal saline, but still required initiation of vasocpressors. He had a chest x-ray showed pulmonary edema. CT of the head was negative. Blood cultures were obtained 2 sets. He had a urinalysis that was negative. Urine drug screen was positive for benzos. Blood alcohol level was less than 10. He was subsequenty transferred to the ICU here at [facility] for further evaluation and treatment. Since transfer here, the patient is continued to be febrile until yesterday. Previous MAXIMUM TEMPERATURE is 102.8. His white blood cell count is currently trending down. LFTs are improving. Kidney function is worsening and they are planning on starting CRRT today. He had a transthoracic echo that was suboptimal but showed an EF of a proximally 20%. MRSA nasal screen was negative. He had an A-line and femoral line placed upon admission. He had a chest x-ray on June 18 that showed decreased vascular prominence with persistent bibasilar opacities that were slightly worse than previous imaging. He had a KUB that was negative. Sputum culture was obtained and is negative as well. Yesterday, he had a CT of the chest, abdomen, and pelvis that showed bilateral lower lobe infiltrates versus atelectasis, mild ascites, and anasarca. He also had a CT of the head with that was negative. Nephrology to consult to assist with his acute kidney injury and they recommended to start CRRT today. Blood cultures obtained in the emergency department came back +2 out of 2 sets for Marisela albicans, sensitivities are pending. Blood cultures were repeated on June 19 and are pending. He is scheduled to undergo placement of a temporary dialysis catheter's morning. Currently, he is on vancomycin, Zosyn, Levaquin, and micafungin. We have asked to evaluate and make further recommendations. During my exam today, the patient remains intubated and sedated. He is unable to participate in the exam. At this time, he is then weaned down to 2 vasopressors. Per nursing, the patient has not had any bowel movement since admission. CC: Ludin Barrett MD Past Med Surg Social Fam HX - Past Medical History Source: old records reviewed, nursing notes reviewed Medical history: asthma, COPD, GERD, hypertension, other Additional medical history: back problems Psychiatric history: anxiety, depression - Social History Smoking Status: Former smoker Smokeless Tobacco Status: No Alcohol use: none Drug use: none Infectious Disease-CN:Meds Ipratropium/Albuterol Sulfate [Combivent Respimat Inhal [place]] 4 gm IH DAILY [History] Albuterol Sulfate [Proair Hfa] 2 puff IH Q4HR PRN 06/17/18 [History] Aspirin Enteric Coated [Aspirin EC] 81 mg PO DAILY 06/17/18 [History] Carvedilol [Carvedilol] 3.125 mg PO BID 06/17/18 [History] Citalopram [CeleXA] 20 mg PO DAILY 06/17/18 [History] Fluticasone Propionate Nasal [Flonase] 1 puff NS DAILY 06/17/18 [History] Fluticasone/Vilanterol [Breo Ellipta 200-25 Mcg INH] 1 each IH DAILY 06/17/18 [ History] Furosemide [Lasix] 40 mg PO BID 06/17/18 [History] Gabapentin [Neurontin] 800 mg PO QID 06/17/18 [History] Insulin Glargine,Hum.rec.anlog [Basaglar Kwikpen U-100] 40 unit SQ BID 06/17/18 [History] Losartan/Hydrochlorothiazide [Losartan-Hctz 100-25 mg Tab] 1 tab PO DAILY [History] Metoprolol [Lopressor] 25 mg PO BID 06/17/18 [History] Montelukast [Singulair] 10 mg PO HS 06/17/18 [History] OxyCODONE/APAP 10/325 [Percocet 10/325 MG] 1 tab PO TID 06/17/18 [History] Pantoprazole Sodium 40 mg PO DAILY 06/17/18 [History] Potassium Chloride [K-Tab ER] 20 meq PO DAILY 06/17/18 [History] Pravastatin Sodium [Pravachol] 40 mg PO DAILY 06/17/18 [History] 3 Allergy/AdvReac Type Severity Reaction Status Date / Time Sulfa (Sulfonamide Allergy Rash Verified 01/28/16 21:39 Antibiotics) All systems: reviewed and no additional remarkable complaints except as stated Exam - Constitutional Vitals: Temp Pulse Resp BP Pulse Ox 97.6 F 96 24 87/57 95 06/20/18 07:34 06/20/18 10:10 06/20/18 10:10 06/20/18 10:10 06/20/18 10:10 General appearance: cooperative, no acute distress, obese - Head Head exam: Present: atraumatic, normal inspection, normocephalic - Eye Eye exam: Present: EOMI, normal appearance, PERRL Pupils: Present: normal accommodation - ENT ENT exam: Present: mucous membranes moist - Neck Neck exam: Present: normal inspection - Respiratory Respiratory exam: Present: rhonchi (Scattered throughout). Absent: rales, respiratory distress, wheezes - Cardiovascular Cardiovascular exam: Present: +S1, +S2, tachycardia. Absent: irregular rhythm - GI/Abdominal GI/Abdominal exam: Present: distended, firm, hypoactive bowel sounds Additional comments: Lyons catheter noted to be draining clear yellow urine. NG tube draining bilious gastric contents. - Extremities Exam Extremities exam: Present: normal inspection. Absent: joint swelling, pedal edema, tenderness - Neurological Exam Neurological exam: Present: altered (Sedated), no focal deficits (Moves all extremities 4 spontaneously with verbal and tactile stimuli.) - Skin Skin exam: Present: dry, intact, normal color, warm - Additional findings Additional findings: Femoral triple lumen CVC noted to the right groin with transparent dressing clean, dry, and intact. Infectious Disease CN: Results - Labs CBC & Chem 7: 06/20/18 03:15 06/20/18 03:15 Cultures: Cultures 06/18/18 20:45 Sputum Culture - Preliminary Sputum 06/19/18 12:46 Blood Culture - Preliminary Peripheral Venipuncture Culture is incubating and being continuously monitored for growth. Final report to follow. 06/19/18 12:46 Blood Culture - Preliminary Peripheral Venipuncture Culture is incubating and being continuously monitored for growth. Final report to follow. Serology: Serology 06/18/18 06/18/18 06/17/18 Range/Units 10:28 10:28 18:15 Urine Osmolality 343 (300-1090) mOsm/kg Urine Sodium 128.8 mEq/L Urine Potassium 36.5 7.5 mEq/L Urine Chloride 135 mEq/L Nasal Screen MRSA (PCR) (Negative) Chlamy pneumoniae PCR (Not Detect) Adenovirus (PCR) (Not Detect) B. pertussis DNA (PCR) (Not Detect) B.parapertussis DNA PCR (Not Detect) Coronavirus OC43 (PCR) (Not Detect) Coronavirus HKU1 (PCR) (Not Detect) Coronavirus 229E (PCR) (Not Detect) Coronavirus NL63 (PCR) (Not Detect) Human Metapneumovir PCR (Not Detect) Influenza A (H1) PCR (Not Detect) Influ A (H1N1/09) PCR (Not Detect) Influenza A (H3) PCR (Not Detect) Influenza A Untype (PCR) (Not Detect) Influenza Type B (PCR) (Not Detect) M.pneumoniae DNA (PCR) (Not Detect) Parainfluenza 1 (PCR) (Not Detect) Parainfluenza 2 (PCR) (Not Detect) Parainfluenza 3 (PCR) (Not Detect) Parainfluenza 4 (PCR) (Not Detect) RSV (PCR) (Not Detect) Entero/Rhino (PCR) (Not Detect) 06/17/18 06/17/18 Range/Units 11:56 11:30 Urine Osmolality (300-1090) mOsm/kg Urine Sodium mEq/L Urine Potassium mEq/L Urine Chloride mEq/L Nasal Screen MRSA (PCR) Negative (Negative) Chlamy pneumoniae PCR Not Detected (Not Detect) Adenovirus (PCR) Not Detected (Not Detect) B. pertussis DNA (PCR) Not Detected (Not Detect) B.parapertussis DNA PCR Not Detected (Not Detect) Coronavirus OC43 (PCR) Not Detected (Not Detect) Coronavirus HKU1 (PCR) Not Detected (Not Detect) Coronavirus 229E (PCR) Not Detected (Not Detect) Coronavirus NL63 (PCR) Not Detected (Not Detect) Human Metapneumovir PCR Not Detected (Not Detect) Influenza A (H1) PCR Not Detected (Not Detect) Influ A (H1N1/09) PCR Not Detected (Not Detect) Influenza A (H3) PCR Not Detected (Not Detect) Influenza A Untype (PCR) Not Detected (Not Detect) Influenza Type B (PCR) Not Detected (Not Detect) M.pneumoniae DNA (PCR) Not Detected (Not Detect) Parainfluenza 1 (PCR) Not Detected (Not Detect) Parainfluenza 2 (PCR) Not Detected (Not Detect) Parainfluenza 3 (PCR) Not Detected (Not Detect) Parainfluenza 4 (PCR) Not Detected (Not Detect) RSV (PCR) Not Detected (Not Detect) Entero/Rhino (PCR) Not Detected (Not Detect) - VTE Documentation of Mechanical Device: Intermittent pneumatic compression device Consult Discharge Plan - Plan Referrals: Sheryl Stahl, [employer] INTERPRETER [Primary Care Provider] -
[2018-06-20] MEDS ORDERED: Levofloxacin 750 MG/150 ML 750 MG/150 ML BAG IVPB SCH (11:00)
--- NOTE | 2018-06-20 11:22 | Procedure Note ---
<Fawad Priest - Last Filed: 06/20/18 11:17> Date of procedure: 06/20/18 Pre-op diagnosis: Acute Renal Failure Post-op diagnosis: same Procedure: Written consent was obtained via telephone from the patient's . The right internal jugular vein was surveyed using ultrasound and found to be suitable target. The neck was cleaned and draped in the usual sterile fashion. The skin and soft tissues were anesthetized using 5cc of 1% lidocaine. Under ultrasound guidance the introducer was advanced into the right jugular vein. Dark red, nonpulsatile blood flow was returned. The guidewire was advanced through the needle and into the vein without resistance. A large west in the skin was made. The initial dilator was passed over the guidewire and the skin and soft tissues were attempted to be dilated however significant resistance was felt. The skin neck was enlarged and again the dilation was attempted and unsuccessful. At this time we decided to abort the procedure. The guidewire was removed intact. A single horizontal mattress suture was placed over the skin neck for hemostasis. Postprocedure chest x-ray is pending. The patient tolerated the procedure well. Interventional radiology has been consulted to assist with this procedure. Anesthesia: GETA Surgeon: Fawad Priest Was there an speech language assistant present: Yes Cloth Dyer: Ludin Barrett Estimated blood loss (cc): 15 Specimen: none Pathology: none sent Condition: critical Disposition: ICU <Ludin Barrett - Last Filed: 06/20/18 23:11> Procedure: I was present during the entire procedure myself tried to dilate with introducer it was not successful
[2018-06-20 12:11] LABS: Albumin 2.5 g/dL (3.5-5.7); Albumin/Globulin Ratio 0.9 (1.1-2.2); Bilirubin,Direct 0.5 mg/dL (0.0-0.2); Bilirubin,Indirect 0.5 mg/dL (0.0-1.2); Globulin 2.7 g/dL (2.4-3.5); Total Protein 5.2 g/dL (6.4-8.9)
[2018-06-20] MEDS ORDERED: 0.9 % Sodium Chloride 1,000 ML PRIME ONE (12:21)
[2018-06-20] MEDS ORDERED: 0.9 % Sodium Chloride 1,000 ML PRIME SCH (12:30)
[2018-06-20] MEDS ORDERED: *HR* Heparin 5,000 UNIT/ML VIAL ONE (14:04)
[2018-06-20 14:15] LABS: Adenovirus Not Detected (Not Detect); Bordetella Pertussis Not Detected (Not Detect); Chlamydophila pneumoniae Not Detected (Not Detect); Coronavirus 229E Not Detected (Not Detect); Coronavirus HKU1 Not Detected (Not Detect); Coronavirus NL63 Not Detected (Not Detect); Coronavirus OC43 Not Detected (Not Detect); Human Metapneumovirus Not Detected (Not Detect); Human Rhinovirus/Enterovirus Not Detected (Not Detect); Influenza A Subtype 2009 H1 Not Detected (Not Detect); Influenza A Untypeable Not Detected (Not Detect); Influenza B Not Detected (Not Detect); Mycoplasma pneumoniae Not Detected (Not Detect); Parainfluenza Virus 1 Not Detected (Not Detect); Parainfluenza Virus 2 Not Detected (Not Detect); Parainfluenza Virus 3 Not Detected (Not Detect); Parainfluenza Virus 4 Not Detected (Not Detect); Respiratory Syncytial Virus Not Detected (Not Detect)
--- NOTE | 2018-06-20 14:33 | IR Procedure Note ---
Date of procedure: 06/20/18 Consent Obtained: Verbal consent, Written consent Timeout: Correct patient and procedure verified, Correct site verified, Time out performed, Skin prep completed Local anesthetic: Lidocaine 1% Indications: renal failure Procedure Performed: temp HDC placement Was there an certified nursing assistant present: No Site/Technique: MART Estimated blood loss (cc): 2 Complications: None; Tolerated procedure well Post Procedure Treatment Plan: CXR Specimen: none
[2018-06-20] MEDS: WATER IVC SCH ×4 (14:41→22:10)
[2018-06-20] MEDS: D5 IVC SCH ×4 (14:41→22:10)
[2018-06-20] MEDS: DOBUTAMINE HCL IVC SCH ×4 (14:41→22:10)
[2018-06-20 15:13] LABS: Thrombin Time 16.4 sec (14.7-19.5)
[2018-06-20] MEDS: PrismaSATE BGK 4/2.5 5,000 ML CRRT SCH ×4 (15:56→21:06)
[2018-06-20] MEDS: *HR* Heparin 5,000 UNIT/ML VIAL IV PRN (15:58)
[2018-06-20] MEDS: Nystatin SUSP 5 ML UD.LIQ PO SCH ×3 (15:58→20:07)
[2018-06-20 16:12] LABS: Albumin 2.5 g/dL (3.5-5.7); Calcium 6.4 mg/dL (8.6-10.3); Phosphorous 4.3 mg/dL (2.7-4.5); Potassium 3.8 mEq/L (3.5-5.1)
[2018-06-20] MEDS: Scopolamine Patch 1.5 MG PATCH.TD72 TD SCH (21:06)
[2018-06-20 21:31] LABS: Albumin 2.5 g/dL (3.5-5.7); Calcium 6.5 mg/dL (8.6-10.3); Phosphorous 4.2 mg/dL (2.7-4.5); Potassium 4.2 mEq/L (3.5-5.1)
--- NOTE | 2018-06-20 23:14 | Pulmonology Progress Note ---
Date of Encounter: 06/20/18 Time of Encounter: 10:00 Assessment and Plan (1) Acute respiratory failure with hypoxemia Current Visit: Yes Status: Acute secondary to septic shock with presentation of systolic heart failure and pneumonia (2) Septic shock Current Visit: Yes Status: Acute Patient has Marisela bacteremia likely secondary to Marisela UTI patient is on broad-spectrum antibiotics with antifungals. Will de-escalate antimicrobials according to infectious disease. Continue liberating down the vasopressors. The first vasopressor to go down his dobutamine to keep the levo fed constant for now. (3) Systolic heart failure Current Visit: Yes Status: Acute Fluid overload was contributing by the intake and the amount of medication he is getting his fluid overloaded will need dialysis Qualifiers: Heart failure chronicity: unspecified Qualified Code(s): I50.20 - Unspecified systolic (congestive) heart failure (4) LUCILA (acute kidney injury) Current Visit: Yes Status: Acute Is on Kimmie appreciate nephrology recs (5) DVT prophylaxis Current Visit: Yes Status: Acute To continue the current prophylaxis. (6) Type 2 diabetes mellitus Current Visit: Yes Status: Chronic To continue the current regiment of insulin Qualifiers: Diabetes mellitus long term care pharmacist insulin use: with residential use Diabetes mellitus complication status: with unspecified complications Qualified Code(s) : E11.8 - Type 2 diabetes mellitus with unspecified complications; Z79.4 - skilled nursing (current) use of insulin (7) COPD (chronic obstructive pulmonary disease) Current Visit: No Status: Chronic Bronchodilators to continue Qualifiers: COPD type: emphysema Emphysema type: unspecified Qualified Code(s): J43.9 - Emphysema, unspecified (8) Thrombocytopenia Current Visit: Yes Status: Acute Platelets are stable. Subjective Principal diagnosis: septic shock Interval history: Patient is still intubated and sedated not much following commands patient is on vasopressor therapy. Patient is growing Marisela in the blood. Objective PUL Vital signs: Last Vital Signs Temp 97.2 F L 06/20/18 23:03 Pulse 84 06/20/18 23:03 Resp 24 06/20/18 23:03 BP 91/58 06/20/18 23:03 Pulse Ox 92 06/20/18 23:03 General appearance: asleep, other (not following nuch commands ) Neck: supple Auscultation: bilateral: diminished breath sounds (bilateral basilar diminished breadth sounds ) Ventilator Settings Ventilator Settings: Ventilator Settings, Last 8 Hours Ventilator Tidal Volume 380 Setting Ventilator Tidal Volume 380 Setting Ventilator Tidal Volume 380 Setting Ventilator Tidal Volume 380 Setting Ventilator Tidal Volume 380 Setting Ventilator Tidal Volume 380 Setting Ventilator Tidal Volume 380 Setting Ventilator Tidal Volume 380 Setting Ventilator Tidal Volume 380 Setting Ventilator Tidal Volume 380 Setting Ventilator Tidal Volume 380 Setting Ventilator Tidal Volume 380 Setting Ventilator Respiratory Rate 22 Setting Ventilator Respiratory Rate 22 Setting Ventilator Respiratory Rate 22 Setting Ventilator Respiratory Rate 22 Setting Ventilator Respiratory Rate 22 Setting Ventilator Respiratory Rate 22 Setting Ventilator Respiratory Rate 22 Setting Ventilator Respiratory Rate 22 Setting Ventilator Respiratory Rate 22 Setting Ventilator Respiratory Rate 22 Setting Ventilator Respiratory Rate 22 Setting Ventilator Respiratory Rate 22 Setting Actual Respiratory Rate 24 Actual Respiratory Rate 24 Actual Respiratory Rate 24 Actual Respiratory Rate 24 Actual Respiratory Rate 24 Actual Respiratory Rate 22 Actual Respiratory Rate 24 Actual Respiratory Rate 22 Actual Respiratory Rate 23 Actual Respiratory Rate 24 Actual Respiratory Rate 22 Actual Respiratory Rate 22 Positive End Expiratory 10 Pressure Positive End Expiratory 10 Pressure Positive End Expiratory 10 Pressure Positive End Expiratory 10 Pressure Positive End Expiratory 10 Pressure Positive End Expiratory 10 Pressure Positive End Expiratory 10 Pressure Positive End Expiratory 10 Pressure Positive End Expiratory 10 Pressure Positive End Expiratory 10 Pressure Positive End Expiratory 10 Pressure Positive End Expiratory 10 Pressure Peak Inspiratory Airway 39 Pressure Peak Inspiratory Airway 40 Pressure Peak Inspiratory Airway 39 Pressure Peak Inspiratory Airway 36 Pressure Peak Inspiratory Airway 33 Pressure Peak Inspiratory Airway 38 Pressure Peak Inspiratory Airway 33 Pressure Peak Inspiratory Airway 42 Pressure Peak Inspiratory Airway 42 Pressure Peak Inspiratory Airway 40 Pressure Peak Inspiratory Airway 39 Pressure Peak Inspiratory Airway 40 Pressure Results - Laboratory Findings CBC and BMP: 06/20/18 03:15 06/20/18 21:00 ABG ABG pH 7.28 pH Units (7.32-7.45) L 06/20/18 05:43 ABG pCO2 56 mmHg (35-45) H 06/20/18 05:43 ABG pO2 75 mmHg (85-104) L 06/20/18 05:43 ABG O2 Saturation 93 % (95-98) L 06/20/18 05:43 PT/INR, D-dimer PT 14.9 Seconds (9.4-12.1) H 06/20/18 09:50 D-Dimer 3465 ng/mLFEU (0-500) H 06/18/18 08:08 Abnormal lab findings: Abnormal lab results WBC 22.6 K/mcL (4.3-11.1) H 06/20/18 03:15 RBC 3.52 M/mcL (4.19-5.50) L 06/20/18 03:15 Hgb 11.1 g/dL (12.9-16.9) L 06/20/18 03:15 Hct 32.8 % (37.5-50.1) L 06/20/18 03:15 RDW 15.9 % (11.5-14.5) H 06/20/18 03:15 Plt Count 72 K/mcL (140-400) L 06/20/18 03:15 Band Neutrophils % 8.0 % (0-4) H 06/18/18 03:05 Neutrophils # 19.7 K/mcL (1.6-8.9) H 06/20/18 03:15 Nucleated RBCs/100 WBC 0.1 /100 WBC (0) H 06/20/18 03:15 Toxic Granulation Present (Not Present) A 06/18/18 03:05 Platelet Estimate Decreased (Normal) L 06/19/18 03:10 Immature Plt Fraction 28.8 % (1.1-6.1) H 06/20/18 03:15 PT 14.9 Seconds (9.4-12.1) H 06/20/18 09:50 Fibrinogen 578 mg/dL (169-393) H 06/18/18 08:08 D-Dimer 3465 ng/mLFEU (0-500) H 06/18/18 08:08 ABG pH 7.28 pH Units (7.32-7.45) L 06/20/18 05:43 ABG pCO2 56 mmHg (35-45) H 06/20/18 05:43 ABG pO2 75 mmHg (85-104) L 06/20/18 05:43 ABG Total CO2 28 mEq/L (20-26) H 06/20/18 05:43 ABG O2 Saturation 93 % (95-98) L 06/20/18 05:43 Sodium 123 mEq/L (136-145) L 06/20/18 21:00 Chloride 91 mEq/L (98-107) L 06/20/18 21:00 BUN 30 mg/dL (6-20) H 06/20/18 21:00 Creatinine 2.59 mg/dL (0.70-1.30) H 06/20/18 21:00 Est GFR ( Amer) 32 (> 60) L 06/20/18 21:00 Est GFR (Non-Af Amer) 26 (> 60) L 06/20/18 21:00 Glucose 129 mg/dL (70-105) H 06/20/18 21:00 POC Glucose 118 mg/dL (70-99) H 06/20/18 22:48 Calculated Osmolality 264 (280-300) L 06/20/18 21:00 Calcium 6.5 mg/dL (8.6-10.3) L 06/20/18 21:00 Venous Ioniz Calcium 0.84 mmol/L (1.15-1.35) L 06/19/18 16:33 Direct Bilirubin 0.5 mg/dL (0.0-0.2) H 06/20/18 11:30 AST 46 Units/L (13-39) H 06/20/18 11:30 Troponin I 0.92 ng/mL (< 0.04) H* 06/17/18 22:33 Serum Total Protein 5.2 g/dL (6.4-8.9) L 06/20/18 11:30 Albumin 2.5 g/dL (3.5-5.7) L 06/20/18 21:00 Albumin/Globulin Ratio 0.9 (1.1-2.2) L 06/20/18 11:30 Procalcitonin 107.11 ng/mL (<=0.07) H 06/17/18 16:40 Vancomycin Trough 18 mcg/mL (5-10) H 06/19/18 08:20 Urine Opiates Screen Positive ng/mL (Goiajm=083) H 06/18/18 10:37 U Benzodiazepines Scrn Positive ng/mL (Foykzv=901) H 06/18/18 10:37 - Microbiology Findings Microbiology Findings: Microbiology, Last 48 Hours 06/20/18 11:30 Legionella Antigen - Final Urine,[place] Streptococcus pneumoniae Antigen (M - Final 06/18/18 20:45 Sputum Culture - Preliminary Sputum 06/19/18 12:46 Blood Culture - Preliminary Peripheral Venipuncture Culture is incubating and being continuously monitored for growth. Final report to follow. 06/19/18 12:46 Blood Culture - Preliminary Peripheral Venipuncture Culture is incubating and being continuously monitored for growth. Final report to follow. - Clinical Findings Intake & Output: Intake & Output 06/20/18 06/20/18 06/20/18 07:59 15:59 23:59 Intake Total 1689.5 / 1689.5 1058 / 1058 1852.0 / 1852.0 Output Total 90 / 90 350 / 350 599 / 599 Balance 1599.5 / 1599.5 708 / 708 1253.0 / 1253.0 Weight 134 kg 131.5 kg - VTE Documentation of Mechanical Device: Intermittent pneumatic compression device Consult Discharge Plan - Plan Referrals: Sheryl Stahl, [employer] [Primary Care Provider] -
--- NOTE | 2018-06-20 23:14 | Pulmonology Progress Note ---
<Nikole Mooney - Last Filed: 06/20/18 23:35> Date of Encounter: 06/20/18 Time of Encounter: 08:00 Assessment and Plan (1) Septic shock Current Visit: Yes Status: Acute 06/17/18 Septic shock, unknown source. He was transferred from [facility] ED on 06/17/18. He had received 3 liters of IV fluids. At presentation he was not hemodynamically stable. He was hypokalemic, had leukocystosis, LUCILA, elevated troponin and lactic acid of 6.6. He was intubated at presentation. Since his presentation he required three different maximum doses of pressors and additional IV fluids. Currently he is on dobutamine, norepi and phenylephrine. His entire body has molting. He has a femoral central line and two peripheral lines. He also has an arterial lines. He is getting electrolyte replacement. He is on broad spectrum antibiotics. Additionally trying to keep a nice balance between sedation and comfort care without negatively affecting his hemodynamic status. Spoke with family numerous times today about goals of care. Given his acute decompensation further decisions will be made at a later time by family. -Awaiting blood cultures -MRSA swab negative and respiratory panel negative -Continuing broad spectrum antibiotics--zosyn, vancomycin and levaquin (day 1) -Currently on versed for sedation and not responding -Can consider using propofol and fentanyl, although start with low dose due to his hemodynamic status -Continue dobutamine, norepi, phenylephrine and dobutamine can be stopped or weaned first if hemodynamically improving 06/18/18 Septic shock. Blood culture returned this evening and showed yeast albican. His urine grew yeast. Preliminary fungal coverage was started with micafungin given his acute status prior to blood cultures returning. -Vasopressin was stopped. He is now on dubutamine and norepi. His pressure is stable since stopping it and his MAP is in the 60s. -Continue zosyn, vancomycin and levaquin (day 2) 06/19/18 Continue micafungin therapy. Infectious disease is consulted. He is being weaned off the dobutamine and this evening was on 12 and 25 of norepi. His MAP has remained at 66 today. Continue zosyn, vancomycin and levaquin (day 3). Will consider stopping vancomycin given negative MRSA and no abscess finding per CT. New blood cultures sent today for repeat study. 06/20/18: -Continue micafungin therapy. Infectious disease recommended optholomology consult and will do that in the morning. He is being weaned off the dobutamine and maximizing norepinephrine and using vassopressin if additional pressor support required. His MAP has remained at 66 today. Continue zosyn, vancomycin and levaquin (day 4). Infectious disease recommends continuing the antibiotics. No growth on the repeat cultures from 06/19/18. (2) Acute respiratory failure with hypoxemia Current Visit: Yes Status: Acute Transferred from the ED at [facility]. It is likely due to pneumonia and septic shock. He was intubated at presentation. His PO2 was 66. His pH was within normal limits, his carbon dioxide was elevated at 61 with metabolic compensation of 36. His most recent repeat pH was 7.40, PCO2 was 52, HCO3 was 32 and PO2 of 53. -Continue ventilator, PEEP of 10 and tidal volume of 400 and FiO2 of 50 -Pending sputum cultures -Repeat ABG at 2300, adjust ventilator settings as needed -Continue vancomycin, zosyn and levaquin 06/18 On ventilator, PEEP of 10, Tidal volume of 400 and FiO2 of 60. ABG: pH: 7.39, PCO2: 55, PO2: 65, HCO3: 34. -Sputum culture not collected -Continue micafungin and broad spectrum antibiotics 06/19/18 On ventilator, PEEP of 10, Tidal volume of 380 and FiO2 of 60. ABG: pH: 7.32, PCO2: 56, PO2: 56, HCO3: 29. Continue to monitor. Recheck ABGs if changes in respiratory status. 06/20/18: On ventilator. PEEP of 10, Tidal volume of 380 and FiO2 of 60. Although his pH slightly worsened this morning per ABG his oxygen saturation is much better; ABG : pH: 7.28, PCO2: 56, PO2: 765 HCO3: 26. Continue to monitor. Recheck ABGs if changes in respiratory status. (3) Systolic heart failure Current Visit: Yes Status: Acute Transferred from [facility]. At presentation he was not hemodynamically stable. His blood pressure was 60s/40s. His rhythm was sinus tachycardic. There was no edema noted on exam. Upon auscultation he had decreased lung sounds at all lung lobes. He had an echo this morning. Per echo his EF is 20% with global systolic dysfunction. There is no previous echos to compare this finding. His blood pressure this evening is 107/66. Has history of hypertension at home and use to take three different antihypertensives at home as well as furosemide. Per family he is compliant with his medications. -Continue pressors to maintain perfusion -Repeat EKG tomorrow morning 06/18: -His MAP has improved since admission and today was low 60s with two pressors -Continue to wean the pressors as tolerated while keeping MAP above 60. 06/19: -His MAP has improved since admission and today it remained in the 66s with two pressors -Continue to wean dobutamine as tolerated while keeping MAP above 60. 06/20/18: His MAP this morning continued to be in the 66s although he is requiring less pressors. Continue to wean dobutamine and can use vassopressor if need addition pressor requirement along with norepi. Keep MAP above 60. Qualifiers: Heart failure chronicity: unspecified Qualified Code(s): I50.20 - Unspecified systolic (congestive) heart failure (4) Hypokalemia Current Visit: Yes Status: Acute His potassium at admission was 1.9. He has received very high amount of potassium replacement therapy and with close monitoring was not responding much. It was decided to only use IV due to lack of efficacy from PO given he has no bowel sounds, with decreased gut motility. His most initial potassium was 3.5. There is electrolyte protocol on board. -Continue to monitor and replace if below 4.0 06/18: -Resolved with 3.5 tonight. Electrolyte protocol is on board. Continue to monitor and replace. 06/19: -Improving, stable at 3.5 today. He is on electrolyte protocol. Continue to monitor and replace. 06/20: -Resolved. Continue to monitor with electrolyte protocol. (5) LUCILA (acute kidney injury) Current Visit: Yes Status: Acute At presentation his creatinine was 1.92 and repeat creatinine was 1.54. His urine output has slightly decreased due to his worsened hemodynamic status but as his hemodynamic status started to improve so did his urine output. Since admission his urine output has been 1925 ml. -Continue to renally dose his medications -Will continue to monitor his urinary output 06/18: -His creatinine today is 1.64, likely due to decreased renal perfusion from septic shock. Will consider de-escalating vancomycin given his worsening renal function and no blood cultures positive for bacteria. He is having better urine output since his admission, with about 50 ml per hour. 06/19: His creatinine today is 1.88, likely related to ATN from septic shock. Nephrology is following. Due to decreased urine output with anascara he will likely require dialysis tomorrow. 06/20: His creatinine today was 2.56 and he has less urine output, although stable for the past a few days in terms of urine output. Nephrology is following. He is getting tammie. (6) Hypocalcemia Current Visit: Yes Status: Acute Ioninzed calcium was 0.84 yesterday. He is on calcium gluconate as calcium replacement. -Continue to monitor (7) Thrombocytopenia Current Visit: Yes Status: Acute His platelets dropped from 126 to 75 overnight. There is no site of bleeding. Orders were made to rule out DIC. Fibrinogen was elevated which should be decreased in DIC. Also given there is no site of bleeding and his high risk of clotting in septic shock, SubQ heparin for DVT prophylaxis will be resumed. Continue to monitor by exam and labs. 06/19: His platelet count is 67 today. There is no evidence of acute blood loss, his hemoglobin is stable. There is no hematoma found. Possibly related to the shock kidney producing less erythropoetin. 06/20: It is stable and slightly improved from yesterday. Today was 72. It is likely related to shock and poor renal function resulting in less erythropoetin production. (8) Elevated troponin Current Visit: Yes Status: Acute His troponin was 0.22 at 03:35. Jermaine, then trended to 0.61 and then went up to 0.83. This is likely due to global cardiac dysfunction due to septic shock. Stat echo was conducted and showed EF of 20% with global systolic dysfunction. His rhythm here has remain sinus tachycardic. -If his respiratory status improves further imaging will be considered tomorrow -Trending troponin, will repeat at 2300 tonight -Will repeat EKG in the morning 06/18: -His latest high troponin was 0.92. Given his acute state it is suspected the troponin is due to acute septic shock. 06/19: -EKG on 06/18 showed no changes. His rhythm has remained sinus. Suspected to be increased due to septic shock. Echo showed LV systolic dysfunction and mild left diastolic dysfunction. 06/20: -His rate and rhythm has remained stable today and had no rhythm changes since admission. (9) Type 2 diabetes mellitus Current Visit: Yes Status: Chronic At presentation to the [facility] ED his glucose was 313 and repeat glucose this afternoon was 197. Per family he is not compliant with his diabetic diet and drinks excessive amount of mountain dew. He was started on high sliding scale of lispro at admission here. Repeat glucose was 417. He is on IV insulin drip. There is no anion gap. Today his glucose was 105, 112 and 129. As he is NPO his insulin demands should decrease. 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 At home he is on respimat and albuterol. Per family he is also on home oxygen but is not compliant with it. His current respiratory distress could be worsened due to his chronic disease process. Chest xray shows diffuse bilateral opacity which is likely pulmonary congestion versus infectious cause. -Continue ventilator control -Continue broad spectrum antibiotics 06/18: -Continue ventilator. He is requiring less tidal volume, his PEEP is 10 to decrease excessive alveolar requirement to minimize lung injury. His ABG continues to have elevated CO2 and appropriate increase in HCO3 to keep the pH within normal limits. 06/19: -Continue ventilator. His tidal volume was reduced today and his RR was increased to help decreased the peak inspiratory plateau pressure. Will continue to monitor ABGs. 06/20: -Continue ventilator. His ABGs showed significant improved in PaO2. Will repeat and monitor in the morning. Qualifiers: COPD type: emphysema Emphysema type: unspecified Qualified Code(s): J43.9 - Emphysema, unspecified (11) DVT prophylaxis Current Visit: Yes Status: Acute SUBQ heparin 5000 mg BID. Will discontinue if platelets decreased to 50,000 Subjective Principal diagnosis: septic shock Interval history: Mr. Mccarthy was seen at bedside this morning. He was sedated and intubated and on ventilator with improvement in his PaO2. His MAP has stayed at 66 today as well. Overnight he had no acute events and responded well to fentanyl and versed for sedation. He was on rate of 15 was dobutamine and 25 of norepinephrine this morning. His potassium improved since admission after many repletions. His urine output continues to be low and had a total of 545 ml today. His abdomen stayed distended. His CT of the abdomen showed anasara and bilateral pulmonary infiltrates, suspected to be pneumonia. His platelet count has stayed stable at 72 today. He dose awaken when trying to move him but does not follow any commands. Two of the tubes from outside blood cultures are positive for karo albican and he is on micofungin. Infectious disease recommends opthomology consultation. His eyes were examine and did not show erythema or signs of infection but will consider consulting in the morning. He was started on tammie today. Objective PUL Vital signs: Last Vital Signs Temp 97.2 F L 06/20/18 23:03 Pulse 84 06/20/18 23:03 Resp 24 06/20/18 23:03 BP 91/58 06/20/18 23:03 Pulse Ox 92 06/20/18 23:03 General appearance: other (sedated and intubated) Auscultation: bilateral: diminished breath sounds (Diminished in lower lung bases but unable to accurately assess given the ventilator ) Gastrointestinal: hypoactive bowel sounds, other (distended) Extremities: no cyanosis, edema (+1 pitting ) unable to assess due to mental status Ventilator Settings Ventilator Settings: Ventilator Settings, Last 8 Hours Ventilator Tidal Volume 380 Setting Ventilator Tidal Volume 380 Setting Ventilator Tidal Volume 380 Setting Ventilator Tidal Volume 380 Setting Ventilator Tidal Volume 380 Setting Ventilator Tidal Volume 380 Setting Ventilator Tidal Volume 380 Setting Ventilator Tidal Volume 380 Setting Ventilator Tidal Volume 380 Setting Ventilator Tidal Volume 380 Setting Ventilator Tidal Volume 380 Setting Ventilator Tidal Volume 380 Setting Ventilator Respiratory Rate 22 Setting Ventilator Respiratory Rate 22 Setting Ventilator Respiratory Rate 22 Setting Ventilator Respiratory Rate 22 Setting Ventilator Respiratory Rate 22 Setting Ventilator Respiratory Rate 22 Setting Ventilator Respiratory Rate 22 Setting Ventilator Respiratory Rate 22 Setting Ventilator Respiratory Rate 22 Setting Ventilator Respiratory Rate 22 Setting Ventilator Respiratory Rate 22 Setting Ventilator Respiratory Rate 22 Setting Actual Respiratory Rate 24 Actual Respiratory Rate 24 Actual Respiratory Rate 24 Actual Respiratory Rate 24 Actual Respiratory Rate 24 Actual Respiratory Rate 22 Actual Respiratory Rate 24 Actual Respiratory Rate 22 Actual Respiratory Rate 23 Actual Respiratory Rate 24 Actual Respiratory Rate 22 Actual Respiratory Rate 22 Positive End Expiratory 10 Pressure Positive End Expiratory 10 Pressure Positive End Expiratory 10 Pressure Positive End Expiratory 10 Pressure Positive End Expiratory 10 Pressure Positive End Expiratory 10 Pressure Positive End Expiratory 10 Pressure Positive End Expiratory 10 Pressure Positive End Expiratory 10 Pressure Positive End Expiratory 10 Pressure Positive End Expiratory 10 Pressure Positive End Expiratory 10 Pressure Peak Inspiratory Airway 39 Pressure Peak Inspiratory Airway 40 Pressure Peak Inspiratory Airway 39 Pressure Peak Inspiratory Airway 36 Pressure Peak Inspiratory Airway 33 Pressure Peak Inspiratory Airway 38 Pressure Peak Inspiratory Airway 33 Pressure Peak Inspiratory Airway 42 Pressure Peak Inspiratory Airway 42 Pressure Peak Inspiratory Airway 40 Pressure Peak Inspiratory Airway 39 Pressure Peak Inspiratory Airway 40 Pressure Results - Laboratory Findings CBC and BMP: 06/20/18 03:15 06/20/18 21:00 ABG ABG pH 7.28 pH Units (7.32-7.45) L 06/20/18 05:43 ABG pCO2 56 mmHg (35-45) H 06/20/18 05:43 ABG pO2 75 mmHg (85-104) L 06/20/18 05:43 ABG O2 Saturation 93 % (95-98) L 06/20/18 05:43 PT/INR, D-dimer PT 14.9 Seconds (9.4-12.1) H 06/20/18 09:50 D-Dimer 3465 ng/mLFEU (0-500) H 06/18/18 08:08 Abnormal lab findings: Abnormal lab results WBC 22.6 K/mcL (4.3-11.1) H 06/20/18 03:15 RBC 3.52 M/mcL (4.19-5.50) L 06/20/18 03:15 Hgb 11.1 g/dL (12.9-16.9) L 06/20/18 03:15 Hct 32.8 % (37.5-50.1) L 06/20/18 03:15 RDW 15.9 % (11.5-14.5) H 06/20/18 03:15 Plt Count 72 K/mcL (140-400) L 06/20/18 03:15 Band Neutrophils % 8.0 % (0-4) H 06/18/18 03:05 Neutrophils # 19.7 K/mcL (1.6-8.9) H 06/20/18 03:15 Nucleated RBCs/100 WBC 0.1 /100 WBC (0) H 06/20/18 03:15 Toxic Granulation Present (Not Present) A 06/18/18 03:05 Platelet Estimate Decreased (Normal) L 06/19/18 03:10 Immature Plt Fraction 28.8 % (1.1-6.1) H 06/20/18 03:15 PT 14.9 Seconds (9.4-12.1) H 06/20/18 09:50 Fibrinogen 578 mg/dL (169-393) H 06/18/18 08:08 D-Dimer 3465 ng/mLFEU (0-500) H 06/18/18 08:08 ABG pH 7.28 pH Units (7.32-7.45) L 06/20/18 05:43 ABG pCO2 56 mmHg (35-45) H 06/20/18 05:43 ABG pO2 75 mmHg (85-104) L 06/20/18 05:43 ABG Total CO2 28 mEq/L (20-26) H 06/20/18 05:43 ABG O2 Saturation 93 % (95-98) L 06/20/18 05:43 Sodium 123 mEq/L (136-145) L 06/20/18 21:00 Chloride 91 mEq/L (98-107) L 06/20/18 21:00 BUN 30 mg/dL (6-20) H 06/20/18 21:00 Creatinine 2.59 mg/dL (0.70-1.30) H 06/20/18 21:00 Est GFR ( Amer) 32 (> 60) L 06/20/18 21:00 Est GFR (Non-Af Amer) 26 (> 60) L 06/20/18 21:00 Glucose 129 mg/dL (70-105) H 06/20/18 21:00 POC Glucose 118 mg/dL (70-99) H 06/20/18 22:48 Calculated Osmolality 264 (280-300) L 06/20/18 21:00 Calcium 6.5 mg/dL (8.6-10.3) L 06/20/18 21:00 Venous Ioniz Calcium 0.84 mmol/L (1.15-1.35) L 06/19/18 16:33 Direct Bilirubin 0.5 mg/dL (0.0-0.2) H 06/20/18 11:30 AST 46 Units/L (13-39) H 06/20/18 11:30 Troponin I 0.92 ng/mL (< 0.04) H* 06/17/18 22:33 Serum Total Protein 5.2 g/dL (6.4-8.9) L 06/20/18 11:30 Albumin 2.5 g/dL (3.5-5.7) L 06/20/18 21:00 Albumin/Globulin Ratio 0.9 (1.1-2.2) L 06/20/18 11:30 Procalcitonin 107.11 ng/mL (<=0.07) H 06/17/18 16:40 Vancomycin Trough 18 mcg/mL (5-10) H 06/19/18 08:20 Urine Opiates Screen Positive ng/mL (Rcheky=713) H 06/18/18 10:37 U Benzodiazepines Scrn Positive ng/mL (Wxcark=914) H 06/18/18 10:37 - Microbiology Findings Microbiology Findings: Microbiology, Last 48 Hours 06/20/18 11:30 Legionella Antigen - Final Urine,[place] Streptococcus pneumoniae Antigen (M - Final 06/18/18 20:45 Sputum Culture - Preliminary Sputum 06/19/18 12:46 Blood Culture - Preliminary Peripheral Venipuncture Culture is incubating and being continuously monitored for growth. Final report to follow. 06/19/18 12:46 Blood Culture - Preliminary Peripheral Venipuncture Culture is incubating and being continuously monitored for growth. Final report to follow. - Clinical Findings Intake & Output: Intake & Output 06/20/18 06/20/18 06/20/18 07:59 15:59 23:59 Intake Total 1689.5 / 1689.5 1058 / 1058 1961.0 / 1961.0 Output Total 90 / 90 350 / 350 599 / 599 Balance 1599.5 / 1599.5 708 / 708 1362.0 / 1362.0 Weight 134 kg 131.5 kg - VTE Documentation of Mechanical Device: Intermittent pneumatic compression device Consult Discharge Plan - Plan Referrals: Sheryl Stahl CNP [Primary Care Provider] - <Ludin Barrett - Last Filed: 06/21/18 11:07> Date of Encounter: 06/21/18 Assessment and Plan (1) Acute respiratory failure with hypoxemia Current Visit: Yes Status: Acute (2) Septic shock Current Visit: Yes Status: Acute (3) Systolic heart failure Current Visit: Yes Status: Acute Qualifiers: Heart failure chronicity: unspecified Qualified Code(s): I50.20 - Unspecified systolic (congestive) heart failure (4) LUCILA (acute kidney injury) Current Visit: Yes Status: Acute (5) DVT prophylaxis Current Visit: Yes Status: Acute (6) Type 2 diabetes mellitus Current Visit: Yes Status: Chronic Qualifiers: Diabetes mellitus halfway insulin use: with 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 color 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 Diabetes mellitus complication status: with unspecified complications Qualified Code(s) : E11.8 - Type 2 diabetes mellitus with unspecified complications; Z79.4 - custodial (current) use of insulin (7) COPD (chronic obstructive pulmonary disease) Current Visit: No Status: Chronic Qualifiers: COPD type: emphysema Emphysema type: unspecified Qualified Code(s): J43.9 - Emphysema, unspecified (8) Thrombocytopenia Current Visit: Yes Status: Acute Objective PUL Vital signs: Last Vital Signs Temp 97.8 F 06/21/18 08:00 Pulse 93 06/21/18 10:00 Resp 30 06/21/18 10:00 BP 92/58 06/21/18 10:00 Pulse Ox 88 06/21/18 10:00 Ventilator Settings Ventilator Settings: Ventilator Settings, Last 8 Hours Ventilator Tidal Volume 380 Setting Ventilator Tidal Volume 380 Setting Ventilator Tidal Volume 380 Setting Ventilator Tidal Volume 380 Setting Ventilator Tidal Volume 380 Setting Ventilator Tidal Volume 380 Setting Ventilator Tidal Volume 380 Setting Ventilator Tidal Volume 380 Setting Ventilator Tidal Volume 380 Setting Ventilator Tidal Volume 380 Setting Ventilator Tidal Volume 380 Setting Ventilator Tidal Volume 380 Setting Ventilator Tidal Volume 380 Setting Ventilator Respiratory Rate 22 Setting Ventilator Respiratory Rate 22 Setting Ventilator Respiratory Rate 22 Setting Ventilator Respiratory Rate 22 Setting Ventilator Respiratory Rate 22 Setting Ventilator Respiratory Rate 22 Setting Ventilator Respiratory Rate 22 Setting Ventilator Respiratory Rate 22 Setting Ventilator Respiratory Rate 22 Setting Ventilator Respiratory Rate 22 Setting Ventilator Respiratory Rate 22 Setting Ventilator Respiratory Rate 22 Setting Ventilator Respiratory Rate 22 Setting Actual Respiratory Rate 22 Actual Respiratory Rate 22 Actual Respiratory Rate 23 Actual Respiratory Rate 22 Actual Respiratory Rate 25 Actual Respiratory Rate 24 Actual Respiratory Rate 30 Actual Respiratory Rate 23 Actual Respiratory Rate 30 Actual Respiratory Rate 30 Actual Respiratory Rate 30 Actual Respiratory Rate 23 Positive End Expiratory 10 Pressure Positive End Expiratory 10 Pressure Positive End Expiratory 10 Pressure Positive End Expiratory 10 Pressure Positive End Expiratory 10 Pressure Positive End Expiratory 10 Pressure Positive End Expiratory 10 Pressure Positive End Expiratory 10 Pressure Positive End Expiratory 10 Pressure Positive End Expiratory 10 Pressure Positive End Expiratory 10 Pressure Positive End Expiratory 10 Pressure Positive End Expiratory 10 Pressure Peak Inspiratory Airway 39 Pressure Peak Inspiratory Airway 34 Pressure Peak Inspiratory Airway 35 Pressure Peak Inspiratory Airway 37 Pressure Peak Inspiratory Airway 34 Pressure Peak Inspiratory Airway 37 Pressure Peak Inspiratory Airway 37 Pressure Peak Inspiratory Airway 38 Pressure Peak Inspiratory Airway 37 Pressure Peak Inspiratory Airway 37 Pressure Peak Inspiratory Airway 37 Pressure Peak Inspiratory Airway 40 Pressure Results - Laboratory Findings CBC and BMP: 06/21/18 03:00 06/21/18 05:00 ABG ABG pH 7.24 pH Units (7.32-7.45) L 06/21/18 04:47 ABG pCO2 63 mmHg (35-45) H 06/21/18 04:47 ABG pO2 74 mmHg (85-104) L 06/21/18 04:47 ABG O2 Saturation 91 % (95-98) L 06/21/18 04:47 PT/INR, D-dimer PT 14.9 Seconds (9.4-12.1) H 06/20/18 09:50 D-Dimer 3465 ng/mLFEU (0-500) H 06/18/18 08:08 Abnormal lab findings: Abnormal lab results WBC 19.0 K/mcL (4.3-11.1) H 06/21/18 03:00 RBC 3.58 M/mcL (4.19-5.50) L 06/21/18 03:00 Hgb 11.3 g/dL (12.9-16.9) L 06/21/18 03:00 Hct 33.9 % (37.5-50.1) L 06/21/18 03:00 RDW 15.8 % (11.5-14.5) H 06/21/18 03:00 Plt Count 79 K/mcL (140-400) L 06/21/18 03:00 MPV 13.6 fL (9.4-12.4) H 06/21/18 03:00 Band Neutrophils % 8.0 % (0-4) H 06/18/18 03:05 Neutrophils # 15.9 K/mcL (1.6-8.9) H 06/21/18 03:00 Nucleated RBCs/100 WBC 0.2 /100 WBC (0) H 06/21/18 03:00 Toxic Granulation Present (Not Present) A 06/18/18 03:05 Platelet Estimate Decreased (Normal) L 06/19/18 03:10 Immature Plt Fraction 30.8 % (1.1-6.1) H 06/21/18 03:00 PT 14.9 Seconds (9.4-12.1) H 06/20/18 09:50 Fibrinogen 578 mg/dL (169-393) H 06/18/18 08:08 D-Dimer 3465 ng/mLFEU (0-500) H 06/18/18 08:08 ABG pH 7.24 pH Units (7.32-7.45) L 06/21/18 04:47 ABG pCO2 63 mmHg (35-45) H 06/21/18 04:47 ABG pO2 74 mmHg (85-104) L 06/21/18 04:47 ABG Total CO2 29 mEq/L (20-26) H 06/21/18 04:47 ABG O2 Saturation 91 % (95-98) L 06/21/18 04:47 Sodium 126 mEq/L (136-145) L 06/21/18 05:00 Chloride 94 mEq/L (98-107) L 06/21/18 05:00 BUN 28 mg/dL (6-20) H 06/21/18 05:00 Creatinine 2.31 mg/dL (0.70-1.30) H 06/21/18 05:00 Est GFR ( Amer) 36 (> 60) L 06/21/18 05:00 Est GFR (Non-Af Amer) 30 (> 60) L 06/21/18 05:00 Glucose 136 mg/dL (70-105) H 06/21/18 05:00 POC Glucose 119 mg/dL (70-99) H 06/21/18 10:16 Calculated Osmolality 270 (280-300) L 06/21/18 05:00 Calcium 6.6 mg/dL (8.6-10.3) L 06/21/18 05:00 Venous Ioniz Calcium 0.87 mmol/L (1.15-1.35) L 06/21/18 03:14 Total Bilirubin 1.3 mg/dL (0.3-1.0) H 06/21/18 03:00 Direct Bilirubin 0.7 mg/dL (0.0-0.2) H 06/21/18 03:00 Troponin I 0.92 ng/mL (< 0.04) H* 08/21/18 22:33 Serum Total Protein 5.6 g/dL (6.4-8.9) L 06/21/18 03:00 Albumin 2.6 g/dL (3.5-5.7) L 06/21/18 05:00 Albumin/Globulin Ratio 0.9 (1.1-2.2) L 06/21/18 03:00 Procalcitonin 107.11 ng/mL (<=0.07) H 06/17/18 16:40 Vancomycin Trough 18 mcg/mL (5-10) H 06/19/18 08:20 Urine Opiates Screen Positive ng/mL (Mkjhvn=335) H 06/18/18 10:37 U Benzodiazepines Scrn Positive ng/mL (Ujzfoh=794) H 06/18/18 10:37 - Microbiology Findings Microbiology Findings: Microbiology, Last 48 Hours 06/18/18 20:45 Sputum Culture - Preliminary Sputum 06/20/18 11:30 Legionella Antigen - Final Urine,[place] Streptococcus pneumoniae Antigen (M - Final 06/19/18 12:46 Blood Culture - Preliminary Peripheral Venipuncture Culture is incubating and being continuously monitored for growth. Final report to follow. 06/19/18 12:46 Blood Culture - Preliminary Peripheral Venipuncture Culture is incubating and being continuously monitored for growth. Final report to follow. - Clinical Findings Intake & Output: Intake & Output 06/20/18 06/21/18 06/21/18 23:59 07:59 15:59 Intake Total 1973.0 / 1973.0 1087.4 / 1087.4 246.3 / 246.3 Output Total 599 / 599 896 / 896 285 / 285 Balance 1374.0 / 1374.0 191.4 / 191.4 -38.7 / -38.7 Weight 131.5 kg 131.5 kg - Attending Attestation - Attending Attestation I saw and evaluated this patient and my medical decision-making was reviewed with the Resident Physician. I agree with the documented findings, disposition and treatment plan as described except to the extent set forth below. We independently had [id number] contact with the patient I spent 35 minutes of Critical Care time with this patient. It involved decision making of high complexity to assess, manipulate, and support vital organ system failure and/or to prevent further life threatening deterioration of the patient's condition. The time involved in the performance of separately reportable procedures was not counted toward critical care time. Patient seen and examined at bedside Labs, radiology, chart personally reviewed. Management was reviewed during multidisciplinary critical care rounds. 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 / Pulm: Patient has severe VQ mismatch with some sun physiology most likely secondary to valvular prosthesis pneumonia versus pulmonary edema. He was requiring high FiO2 and high PEEP therapy wanted to prone this patient but patient became severely hemodynamically unstable which is a contraindication for pronating so we held off pronating the patient . I will volume strategy the Plateau pressure was acceptable patient currently with acceptable oxygenation and ventilation at a reduced the PEEP therapy because patient was severely hypotensive.. Since patient is hypertensive will tolerate higher FiO2 low PEEP strategy. 06/18 To continue with low tidal volume strategy patient with acceptable oxygenation and ventilation 06/19 adjusted tidal volume to keep the plateau pressure less than 30 acceptable oxygenation and ventilation 06/20 Adjusted the minute ventilation , acceptable oxygenation and ventilation . Cards: Patient has was likely subendocardial ischemia type II TN with global systolic dysfunction with an EF of 20% most likely was global systolic dysfunction is most likely due to sepsis induced no regional wall motion abnormality will give continuing trending troponins. Patient is in refractory severe septic shock with stress dose steroids.. He is on 3 different multiple vasopressors insulin (he had a Dobutrex because of this low EF as phenylephrine will reduce the cardiac output due to it's baroreceptor reflex to continue levophed and vasopressin. 06/18 Patient still in septic shock to continue Vasopressor to liberate vasopressor as tolerated . 06/19 Patient is off Vasopression , to liberate dobutamine next and then Levophed . 06/20 Patient is slowly liberating from the vasopressors FEN-GI: Nothing by mouth for now Renal: Patient has decreased urine output most likely he will develop acute kidney injury secondary to sepsis induced ATN ID : culture done patient on broad-spectrum antibiotics most likely source for septic shock as pneumonia cannot perceive managing chest and abdomen because patient has hemodynamically unstable. When he is stable we will do CT Chest and Abdomen 06/18 Patient septic shock not improving will add antifungal 06/19 Blood culture growing karo in blood patient was started on antifungal yesterday to continue micafungin and broad spectrum antibiotics will get Ct chest abdomen and pelvis . 06/20 Patient has candidemia .ID on consult Heme/Onc: Labs reviewed has some thrombocytopenia continue thromboprophylaxis Endo: Glucose Monitored Integ/MSK: Skin Care per routine ICU Nursing Protocol to prevent ulcers. Lines: All lines examined without evidence of infection : Dispo: Critically ill CODE: Full Code Family was fully updated .
[2018-06-21] MEDS: PrismaSATE BGK 4/2.5 5,000 ML CRRT SCH ×9 (00:06→21:51)
[2018-06-21] MEDS: Vasopressin 40 UNIT in D5% in Water 100 ML IV SCH ×3 (00:06→20:22)
[2018-06-21] MEDS: Insulin Human Regular 250 UNIT in 0.9 % Sodium Chloride 250 ML IVC SCH (00:23)
[2018-06-21] MEDS: WATER IVC SCH ×5 (00:24→18:20)
[2018-06-21] MEDS: D5 IVC SCH ×5 (00:24→18:20)
[2018-06-21] MEDS: DOBUTAMINE HCL IVC SCH ×5 (00:24→18:20)
[2018-06-21 00:45] LABS: Albumin 2.7 g/dL (3.5-5.7); Calcium 6.5 mg/dL (8.6-10.3); Phosphorous 4.3 mg/dL (2.7-4.5); Potassium 4.5 mEq/L (3.5-5.1)
[2018-06-21] MEDS: *HR* Heparin 5,000 UNIT/ML VIAL IV PRN ×2 (01:23→23:00)
[2018-06-21] MEDS: FentaNYL (PF) 2,500 MCG in EMPTY BAG 1 EACH IVC SCH ×3 (01:32→23:34)
[2018-06-21] MEDS: Piperacillin/Tazobactam 3.375 GM in 0.9 % Sodium Chloride Mini Bag 100 ML IVPB SCH ×3 (03:06→20:02)
[2018-06-21 03:08] LABS: Eosinophils % 0.1 %; Hemoglobin 11.3 g/dL (12.9-16.9); Immature Granulocytes % 2.2 % (0-4); Red Cell Distribution Width 15.8 % (11.5-14.5); Segmented Neutrophils % 83.5 %
[2018-06-21] MEDS: Norepinephrine 8 MG in D5% in Water 250 ML IVC SCH ×4 (03:08→20:24)
[2018-06-21 03:10] LABS: Basophils % 0.2 %; Hematocrit 33.9 % (37.5-50.1); Immature Platelets 30.8 % (1.1-6.1); Lymphocytes # 1.5 K/mcL (0.6-4.6); Lymphocytes % 8.1 %; Mean Corpuscular HGB Conc 33.3 g/dL (31.6-35.5); Mean Corpuscular Hemoglobin 31.6 pg (28.0-33.3); Mean Corpuscular Volume 94.7 fL (83.0-100.0); Mean Platelet Volume 13.6 fL (9.4-12.4); Monocytes # 1.1 K/mcL (0.0-1.3); Monocytes % 5.9 %; Neutrophils # 15.9 K/mcL (1.6-8.9); Nucleated Red Blood Cells 0.2 /100 WBC (0); Platelet Count 79 K/mcL (140-400); Red Blood Count 3.58 M/mcL (4.19-5.50)
[2018-06-21] MEDS: Artificial Tears SOLN 15 ML BOTTLE BOTH EYES SCH ×5 (03:10→20:10)
[2018-06-21 03:19] LABS: VBG Ionized Calcium 0.87 mmol/L (1.15-1.35)
[2018-06-21 03:51] LABS: Albumin 2.6 g/dL (3.5-5.7); Albumin/Globulin Ratio 0.9 (1.1-2.2); Bilirubin,Direct 0.7 mg/dL (0.0-0.2); Bilirubin,Indirect 0.6 mg/dL (0.0-1.2); Bilirubin,Total 1.3 mg/dL (0.3-1.0); Magnesium 2.3 mg/dL (1.6-2.6); Phosphorous 4.3 mg/dL (2.7-4.5); Total Protein 5.6 g/dL (6.4-8.9)
[2018-06-21 04:50] LABS: ABG Base Excess -2 mEq/L (-2 to 3); ABG HCO3 27 mEq/L (21-27); ABG Oxygen Saturation 91 % (95-98); ABG PCO2 63 mmHg (35-45); ABG PH 7.24 pH Units (7.32-7.45); ABG PO2 74 mmHg (85-104); ABG TCO2 29 mEq/L (20-26); Blood Gas Modality PRVC; Blood Gas PEEP 10 cm H2O; Blood Gas Respiration Rate 22; Blood Gas VT 380 cc
[2018-06-21] MEDS: *HR* Heparin 5,000 UNIT/ML VIAL SQ SCH ×2 (05:05→18:20)
[2018-06-21 05:51] LABS: Albumin 2.6 g/dL (3.5-5.7); Calcium 6.6 mg/dL (8.6-10.3); Phosphorous 4.2 mg/dL (2.7-4.5); Potassium 4.4 mEq/L (3.5-5.1)
[2018-06-21] MEDS ORDERED: Vancomycin 500 MG in 0.9 % Sodium Chloride Mini Bag 100 ML IVPB ONE (06:00)
--- NOTE | 2018-06-21 06:38 | Pulmonology Progress Note ---
<Nikole Mooney - Last Filed: 06/21/18 17:35> Date of Encounter: 06/21/18 Time of Encounter: 06:37 Assessment and Plan (1) Septic shock Current Visit: Yes Status: Acute 06/17/18 Septic shock, unknown source. He was transferred from [place] ED on 06/17/18. He had received 3 liters of IV fluids. At presentation he was not hemodynamically stable. He was hypokalemic, had leukocystosis, LUCILA, elevated troponin and lactic acid of 6.6. He was intubated at presentation. Since his presentation he required three different maximum doses of pressors and additional IV fluids. Currently he is on dobutamine, norepi and phenylephrine. His entire body has molting. He has a femoral central line and two peripheral lines. He also has an arterial lines. He is getting electrolyte replacement. He is on broad spectrum antibiotics. Additionally trying to keep a nice balance between sedation and comfort care without negatively affecting his hemodynamic status. Spoke with family numerous times today about goals of care. Given his acute decompensation further decisions will be made at a later time by family. -Awaiting blood cultures -MRSA swab negative and respiratory panel negative -Continuing broad spectrum antibiotics--zosyn, vancomycin and levaquin (day 1) -Currently on versed for sedation and not responding -Can consider using propofol and fentanyl, although start with low dose due to his hemodynamic status -Continue dobutamine, norepi, phenylephrine and dobutamine can be stopped or weaned first if hemodynamically improving 06/18/18 Septic shock. Blood culture returned this evening and showed yeast albican. His urine grew yeast. Preliminary fungal coverage was started with micafungin given his acute status prior to blood cultures returning. -Vasopressin was stopped. He is now on dubutamine and norepi. His pressure is stable since stopping it and his MAP is in the 60s. -Continue zosyn, vancomycin and levaquin (day 2) 06/19/18 Continue micafungin therapy. Infectious disease is consulted. He is being weaned off the dobutamine and this evening was on 12 and 25 of norepi. His MAP has remained at 66 today. Continue zosyn, vancomycin and levaquin (day 3). Will consider stopping vancomycin given negative MRSA and no abscess finding per CT. New blood cultures sent today for repeat study. 06/20/18: -Continue micafungin therapy. Infectious disease recommended optholomology consult and will do that in the morning. He is being weaned off the dobutamine and maximizing norepinephrine and using vassopressin if additional pressor support required. His MAP has remained at 66 today. Continue zosyn, vancomycin and levaquin (day 4). Infectious disease recommends continuing the antibiotics. No growth on the repeat cultures from 06/19/18. 06/21/18: -Continue micafungin therapy. Infectious disease recommended optholomology consult but after a thorough examination no swelling was noted around the orbit and there is no visible erythema. He is now weaned off the dobutamine. He is on 0.04 units/min of vasopressin and 25.16 of norepinephrine, decreasing his vasopressor demands. His MAP was lower today, around 62. Continue zosyn, vancomycin and levaquin (day 5). Infectious disease recommends continuing the antibiotics. No growth on the repeat cultures from 06/19/18. And negative strep pneumo and legionella antigen. His KUB shows now sign of perforation but diffuse anascara. (2) Acute respiratory failure with hypoxemia Current Visit: Yes Status: Acute Transferred from the ED at [place]. It is likely due to pneumonia and septic shock. He was intubated at presentation. His PO2 was 66. His pH was within normal limits, his carbon dioxide was elevated at 61 with metabolic compensation of 36. His most recent repeat pH was 7.40, PCO2 was 52, HCO3 was 32 and PO2 of 53. -Continue ventilator, PEEP of 10 and tidal volume of 400 and FiO2 of 50 -Pending sputum cultures -Repeat ABG at 2300, adjust ventilator settings as needed -Continue vancomycin, zosyn and levaquin 06/18 On ventilator, PEEP of 10, Tidal volume of 400 and FiO2 of 60. ABG: pH: 7.39, PCO2: 55, PO2: 65, HCO3: 34. -Sputum culture not collected -Continue micafungin and broad spectrum antibiotics 06/19/18 On ventilator, PEEP of 10, Tidal volume of 380 and FiO2 of 60. ABG: pH: 7.32, PCO2: 56, PO2: 56, HCO3: 29. Continue to monitor. Recheck ABGs if changes in respiratory status. 06/20/18: On ventilator. PEEP of 10, Tidal volume of 380 and FiO2 of 60. Although his pH slightly worsened this morning per ABG his oxygen saturation is much better; ABG : pH: 7.28, PCO2: 56, PO2: 765 HCO3: 26. Continue to monitor. Recheck ABGs if changes in respiratory status. 06/21/18: On ventilator. PEEP of 10. Tidal volume 380, FiO2 60. His oxygen saturation continues to remain stable but his pH is lower due to increased pCO2. Continue to monitor and recheck ABGs if changes in his respiratory status. (3) Systolic heart failure Current Visit: Yes Status: Acute Transferred from [place]. At presentation he was not hemodynamically stable. His blood pressure was 60s/40s. His rhythm was sinus tachycardic. There was no edema noted on exam. Upon auscultation he had decreased lung sounds at all lung lobes. He had an echo this morning. Per echo his EF is 20% with global systolic dysfunction. There is no previous echos to compare this finding. His blood pressure this evening is 107/66. Has history of hypertension at home and use to take three different antihypertensives at home as well as furosemide. Per family he is compliant with his medications. -Continue pressors to maintain perfusion -Repeat EKG tomorrow morning 06/18: -His MAP has improved since admission and today was low 60s with two pressors -Continue to wean the pressors as tolerated while keeping MAP above 60. 06/19: -His MAP has improved since admission and today it remained in the 66s with two pressors -Continue to wean dobutamine as tolerated while keeping MAP above 60. 06/20/18: His MAP this morning continued to be in the 66s although he is requiring less pressors. Continue to wean dobutamine and can use vassopressor if need addition pressor requirement along with norepi. Keep MAP above 60. His His MAP was slightly lower today, around 62 but he was weaned off the dobutamine and although he is requiring less pressors. Continue to wean dobutamine and can use vassopressor if there is additional pressor requirement along with norepi. Keep MAP above 60. Qualifiers: Heart failure chronicity: unspecified Qualified Code(s): I50.20 - Unspecified systolic (congestive) heart failure (4) Hypokalemia Current Visit: Yes Status: Resolved His potassium at admission was 1.9. He has received very high amount of potassium replacement therapy and with close monitoring was not responding much. It was decided to only use IV due to lack of efficacy from PO given he has no bowel sounds, with decreased gut motility. His most initial potassium was 3.5. There is electrolyte protocol on board. -Continue to monitor and replace if below 4.0 06/18: -Resolved with 3.5 tonight. Electrolyte protocol is on board. Continue to monitor and replace. 06/19: -Improving, stable at 3.5 today. He is on electrolyte protocol. Continue to monitor and replace. 06/20: -Resolved. Continue to monitor with electrolyte protocol. 06/21/18: Resolved. Resolved. Continue to monitor with electrolyte protocol. (5) LUCILA (acute kidney injury) Current Visit: Yes Status: Acute At presentation his creatinine was 1.92 and repeat creatinine was 1.54. His urine output has slightly decreased due to his worsened hemodynamic status but as his hemodynamic status started to improve so did his urine output. Since admission his urine output has been 1925 ml. -Continue to renally dose his medications -Will continue to monitor his urinary output 06/18: -His creatinine today is 1.64, likely due to decreased renal perfusion from septic shock. Will consider de-escalating vancomycin given his worsening renal function and no blood cultures positive for bacteria. He is having better urine output since his admission, with about 50 ml per hour. 06/19: His creatinine today is 1.88, likely related to ATN from septic shock. Nephrology is following. Due to decreased urine output with anascara he will likely require dialysis tomorrow. 06/20: His creatinine today was 2.56 and he has less urine output, although stable for the past a few days in terms of urine output. Nephrology is following. He is getting tammie. 06/21: His creatinine today was 2.26. Minimal urine output, but on Tammie. (6) Hypocalcemia Current Visit: Yes Status: Acute Ioninzed calcium was 0.87 today. He is on calcium gluconate as calcium replacement. -Continue to monitor (7) Thrombocytopenia Current Visit: Yes Status: Acute His platelets dropped from 126 to 75 overnight. There is no site of bleeding. Orders were made to rule out DIC. Fibrinogen was elevated which should be decreased in DIC. Also given there is no site of bleeding and his high risk of clotting in septic shock, SubQ heparin for DVT prophylaxis will be resumed. Continue to monitor by exam and labs. 06/19: His platelet count is 67 today. There is no evidence of acute blood loss, his hemoglobin is stable. There is no hematoma found. Possibly related to the shock kidney producing less erythropoetin. 06/20: It is stable and slightly improved from yesterday. Today was 72. It is likely related to shock and poor renal function resulting in less erythropoetin production. 06/21: Improved, today is 79 and yesterday was 72. It is likely related to shock and poor renal function resulting in less erythropoetin production but with starting Tammie his renal function is regaining and he may have better outcome. (8) Elevated troponin Current Visit: Yes Status: Acute His troponin was 0.22 at 03:35. Jermaine, then trended to 0.61 and then went up to 0.83. This is likely due to global cardiac dysfunction due to septic shock. Stat echo was conducted and showed EF of 20% with global systolic dysfunction. His rhythm here has remain sinus tachycardic. -If his respiratory status improves further imaging will be considered tomorrow -Trending troponin, will repeat at 2300 tonight -Will repeat EKG in the morning 06/18: -His latest high troponin was 0.92. Given his acute state it is suspected the troponin is due to acute septic shock. 06/19: -EKG on 06/18 showed no changes. His rhythm has remained sinus. Suspected to be increased due to septic shock. Echo showed LV systolic dysfunction and mild left diastolic dysfunction. 06/20: -His rate and rhythm has remained stable today and had no rhythm changes since admission. 06/21: -Likely related to the shock state given it was a very low increase each time. Echo did not show any localized wall motion abnormality. (9) Type 2 diabetes mellitus Current Visit: Yes Status: Chronic Today his glucose is 110 and he is on insulin at home. Per family he is not compliant with his diabetic diet and drinks excessive amount of mountain dew. He was started on high sliding scale of lispro at admission here. He is on IV insulin drip. There is no anion gap. As he is NPO his insulin demands should decrease. -Continue to monitor -Continue IV insulin Qualifiers: Diabetes mellitus longterm insulin use: with longterm use Diabetes mellitus complication status: with unspecified complications Qualified Code(s) : E11.8 - Type 2 diabetes mellitus with unspecified complications; Z79.4 - senior living (current) use of insulin (10) COPD (chronic obstructive pulmonary disease) Current Visit: No Status: Chronic History of COPD. At home he is on respimat and albuterol. Per family he is also on home oxygen but is not compliant with it. His current respiratory distress could be worsened due to his chronic disease process. Chest xray shows diffuse bilateral opacity which is likely pulmonary congestion versus infectious cause. -Continue ventilator control -Continue broad spectrum antibiotics 06/18: -Continue ventilator. He is requiring less tidal volume, his PEEP is 10 to decrease excessive alveolar requirement to minimize lung injury. His ABG continues to have elevated CO2 and appropriate increase in HCO3 to keep the pH within normal limits. 06/19: -Continue ventilator. His tidal volume was reduced today and his RR was increased to help decreased the peak inspiratory plateau pressure. Will continue to monitor ABGs. 06/20: -Continue ventilator. His ABGs showed significant improved in PaO2. Will repeat and monitor in the morning. 06/21: -Continue ventilator. PCO2 continues to remain elevated although his respiratory rate is set at 22, likely because he tried to pull his endotracheal tube. Qualifiers: COPD type: emphysema Emphysema type: unspecified Qualified Code(s): J43.9 - Emphysema, unspecified (11) DVT prophylaxis Current Visit: Yes Status: Acute SUBQ heparin 5000 mg BID. Will discontinue if platelets decreased to 50,000 Subjective Principal diagnosis: septic shock Interval history: Mr. Mccarthy was seen at bedside this morning. He was sedated and intubated and on ventilator with improvement in his PaO2. His MAP has stayed at 66 today as well. Overnight he had no acute events and responded well to fentanyl and versed for sedation. He was on rate of 15 was dobutamine and 25 of norepinephrine this morning. His potassium improved since admission after many repletions. His urine output continues to be low and had a total of 545 ml today. His abdomen stayed distended. His CT of the abdomen showed anasara and bilateral pulmonary infiltrates, suspected to be pneumonia. His platelet count has stayed stable at 72 today. He dose awaken when trying to move him but does not follow any commands. Two of the tubes from outside blood cultures are positive for karo albican and he is on micofungin. Infectious disease recommends opthomology consultation. His eyes were examine and did not show erythema or signs of infection but will consider consulting in the morning. He was started on tammie today. Objective PUL Vital signs: Last Vital Signs Temp 98 F 06/21/18 05:00 Pulse 76 06/21/18 06:00 Resp 24 06/21/18 06:00 BP 84/57 06/21/18 06:00 Pulse Ox 94 06/21/18 06:00 Ventilator Settings Ventilator Settings: Ventilator Settings, Last 8 Hours Ventilator Tidal Volume 380 Setting Ventilator Tidal Volume 380 Setting Ventilator Tidal Volume 380 Setting Ventilator Tidal Volume 380 Setting Ventilator Tidal Volume 380 Setting Ventilator Tidal Volume 380 Setting Ventilator Tidal Volume 380 Setting Ventilator Tidal Volume 380 Setting Ventilator Tidal Volume 380 Setting Ventilator Tidal Volume 380 Setting Ventilator Tidal Volume 380 Setting Ventilator Tidal Volume 380 Setting Ventilator Tidal Volume 380 Setting Ventilator Respiratory Rate 22 Setting Ventilator Respiratory Rate 22 Setting Ventilator Respiratory Rate 22 Setting Ventilator Respiratory Rate 22 Setting Ventilator Respiratory Rate 22 Setting Ventilator Respiratory Rate 22 Setting Ventilator Respiratory Rate 22 Setting Ventilator Respiratory Rate 22 Setting Ventilator Respiratory Rate 22 Setting Ventilator Respiratory Rate 22 Setting Ventilator Respiratory Rate 22 Setting Ventilator Respiratory Rate 22 Setting Ventilator Respiratory Rate 22 Setting Actual Respiratory Rate 30 Actual Respiratory Rate 23 Actual Respiratory Rate 30 Actual Respiratory Rate 30 Actual Respiratory Rate 30 Actual Respiratory Rate 23 Actual Respiratory Rate 23 Actual Respiratory Rate 23 Actual Respiratory Rate 22 Actual Respiratory Rate 22 Actual Respiratory Rate 23 Actual Respiratory Rate 24 Positive End Expiratory 10 Pressure Positive End Expiratory 10 Pressure Positive End Expiratory 10 Pressure Positive End Expiratory 10 Pressure Positive End Expiratory 10 Pressure Positive End Expiratory 10 Pressure Positive End Expiratory 10 Pressure Positive End Expiratory 10 Pressure Positive End Expiratory 10 Pressure Positive End Expiratory 10 Pressure Positive End Expiratory 10 Pressure Positive End Expiratory 10 Pressure Positive End Expiratory 10 Pressure Peak Inspiratory Airway 37 Pressure Peak Inspiratory Airway 38 Pressure Peak Inspiratory Airway 37 Pressure Peak Inspiratory Airway 37 Pressure Peak Inspiratory Airway 37 Pressure Peak Inspiratory Airway 40 Pressure Peak Inspiratory Airway 41 Pressure Peak Inspiratory Airway 41 Pressure Peak Inspiratory Airway 41 Pressure Peak Inspiratory Airway 39 Pressure Peak Inspiratory Airway 39 Pressure Peak Inspiratory Airway 39 Pressure Results - Laboratory Findings CBC and BMP: 06/21/18 03:00 06/21/18 10:55 ABG ABG pH 7.24 pH Units (7.32-7.45) L 06/21/18 04:47 ABG pCO2 63 mmHg (35-45) H 06/21/18 04:47 ABG pO2 74 mmHg (85-104) L 06/21/18 04:47 ABG O2 Saturation 91 % (95-98) L 06/21/18 04:47 PT/INR, D-dimer PT 14.9 Seconds (9.4-12.1) H 06/20/18 09:50 D-Dimer 3465 ng/mLFEU (0-500) H 06/18/18 08:08 Abnormal lab findings: Abnormal lab results WBC 19.0 K/mcL (4.3-11.1) H 06/21/18 03:00 RBC 3.58 M/mcL (4.19-5.50) L 06/21/18 03:00 Hgb 11.3 g/dL (12.9-16.9) L 06/21/18 03:00 Hct 33.9 % (37.5-50.1) L 06/21/18 03:00 RDW 15.8 % (11.5-14.5) H 06/21/18 03:00 Plt Count 79 K/mcL (140-400) L 06/21/18 03:00 MPV 13.6 fL (9.4-12.4) H 06/21/18 03:00 Band Neutrophils % 8.0 % (0-4) H 06/18/18 03:05 Neutrophils # 15.9 K/mcL (1.6-8.9) H 06/21/18 03:00 Nucleated RBCs/100 WBC 0.2 /100 WBC (0) H 06/21/18 03:00 Toxic Granulation Present (Not Present) A 06/18/18 03:05 Platelet Estimate Decreased (Normal) L 06/19/18 03:10 Immature Plt Fraction 30.8 % (1.1-6.1) H 06/21/18 03:00 PT 14.9 Seconds (9.4-12.1) H 06/20/18 09:50 Fibrinogen 578 mg/dL (169-393) H 06/18/18 08:08 D-Dimer 3465 ng/mLFEU (0-500) H 06/18/18 08:08 ABG pH 7.24 pH Units (7.32-7.45) L 06/21/18 04:47 ABG pCO2 63 mmHg (35-45) H 06/21/18 04:47 ABG pO2 74 mmHg (85-104) L 06/21/18 04:47 ABG Total CO2 29 mEq/L (20-26) H 06/21/18 04:47 ABG O2 Saturation 91 % (95-98) L 06/21/18 04:47 Sodium 126 mEq/L (136-145) L 06/21/18 05:00 Chloride 94 mEq/L (98-107) L 06/21/18 05:00 BUN 28 mg/dL (6-20) H 06/21/18 05:00 Creatinine 2.31 mg/dL (0.70-1.30) H 06/21/18 05:00 Est GFR ( Amer) 36 (> 60) L 06/21/18 05:00 Est GFR (Non-Af Amer) 30 (> 60) L 06/21/18 05:00 Glucose 136 mg/dL (70-105) H 06/21/18 05:00 POC Glucose 115 mg/dL (70-99) H 06/21/18 05:37 Calculated Osmolality 270 (280-300) L 06/21/18 05:00 Calcium 6.6 mg/dL (8.6-10.3) L 06/21/18 05:00 Venous Ioniz Calcium 0.87 mmol/L (1.15-1.35) L 06/21/18 03:14 Total Bilirubin 1.3 mg/dL (0.3-1.0) H 06/21/18 03:00 Direct Bilirubin 0.7 mg/dL (0.0-0.2) H 06/21/18 03:00 Troponin I 0.92 ng/mL (< 0.04) H* 06/17/18 22:33 Serum Total Protein 5.6 g/dL (6.4-8.9) L 06/21/18 03:00 Albumin 2.6 g/dL (3.5-5.7) L 06/21/18 05:00 Albumin/Globulin Ratio 0.9 (1.1-2.2) L 06/21/18 03:00 Procalcitonin 107.11 ng/mL (<=0.07) H 06/17/18 16:40 Vancomycin Trough 18 mcg/mL (5-10) H 06/19/18 08:20 Urine Opiates Screen Positive ng/mL (Iawxrq=631) H 06/18/18 10:37 U Benzodiazepines Scrn Positive ng/mL (Vnckvz=965) H 06/18/18 10:37 - Microbiology Findings Microbiology Findings: Microbiology, Last 48 Hours 06/20/18 11:30 Legionella Antigen - Final Urine,[place] Streptococcus pneumoniae Antigen (M - Final 06/18/18 20:45 Sputum Culture - Preliminary Sputum 06/19/18 12:46 Blood Culture - Preliminary Peripheral Venipuncture Culture is incubating and being continuously monitored for growth. Final report to follow. 06/19/18 12:46 Blood Culture - Preliminary Peripheral Venipuncture Culture is incubating and being continuously monitored for growth. Final report to follow. - Clinical Findings Intake & Output: Intake & Output 06/20/18 06/20/18 06/21/18 15:59 23:59 07:59 Intake Total 1058 / 1058 1973.0 / 1973.0 909.6 / 909.6 Output Total 350 / 350 599 / 599 772 / 772 Balance 708 / 708 1374.0 / 1374.0 137.6 / 137.6 Weight 131.5 kg - VTE Documentation of Mechanical Device: Intermittent pneumatic compression device Consult Discharge Plan - Plan Referrals: Sheryl Stahl CNP [Primary Care Provider] - <Ludin Barrett - Last Filed: 06/21/18 22:52> Date of Encounter: 06/21/18 Assessment and Plan (1) Acute respiratory failure with hypoxemia Current Visit: Yes Status: Acute (2) Septic shock Current Visit: Yes Status: Acute (3) Systolic heart failure Current Visit: Yes Status: Acute Qualifiers: Heart failure chronicity: unspecified Qualified Code(s): I50.20 - Unspecified systolic (congestive) heart failure (4) LUCILA (acute kidney injury) Current Visit: Yes Status: Acute (5) DVT prophylaxis Current Visit: Yes Status: Acute (6) Type 2 diabetes mellitus Current Visit: Yes Status: Chronic Qualifiers: Diabetes mellitus longterm insulin use: with longterm use Diabetes mellitus complication status: with unspecified complications Qualified Code(s) : E11.8 - Type 2 diabetes mellitus with unspecified complications; Z79.4 - senior living (current) use of insulin (7) COPD (chronic obstructive pulmonary disease) Current Visit: No Status: Chronic Qualifiers: COPD type: emphysema Emphysema type: unspecified Qualified Code(s): J43.9 - Emphysema, unspecified (8) Thrombocytopenia Current Visit: Yes Status: Acute Objective PUL Vital signs: Last Vital Signs Temp 97.1 F L 06/21/18 20:00 Pulse 80 06/21/18 22:00 Resp 26 06/21/18 22:16 BP 76/45 06/21/18 22:16 Pulse Ox 94 06/21/18 22:16 Ventilator Settings Ventilator Settings: Ventilator Settings, Last 8 Hours Ventilator Tidal Volume 380 Setting Ventilator Tidal Volume 380 Setting Ventilator Tidal Volume 380 Setting Ventilator Tidal Volume 380 Setting Ventilator Tidal Volume 380 Setting Ventilator Tidal Volume 380 Setting Ventilator Tidal Volume 380 Setting Ventilator Tidal Volume 380 Setting Ventilator Tidal Volume 380 Setting Ventilator Tidal Volume 380 Setting Ventilator Tidal Volume 380 Setting Ventilator Tidal Volume 380 Setting Ventilator Respiratory Rate 26 Setting Ventilator Respiratory Rate 26 Setting Ventilator Respiratory Rate 26 Setting Ventilator Respiratory Rate 26 Setting Ventilator Respiratory Rate 26 Setting Ventilator Respiratory Rate 26 Setting Ventilator Respiratory Rate 26 Setting Ventilator Respiratory Rate 26 Setting Ventilator Respiratory Rate 26 Setting Ventilator Respiratory Rate 26 Setting Ventilator Respiratory Rate 26 Setting Ventilator Respiratory Rate 26 Setting Actual Respiratory Rate 26 Actual Respiratory Rate 26 Actual Respiratory Rate 26 Actual Respiratory Rate 26 Actual Respiratory Rate 27 Actual Respiratory Rate 26 Actual Respiratory Rate 26 Actual Respiratory Rate 26 Actual Respiratory Rate 26 Actual Respiratory Rate 28 Actual Respiratory Rate 28 Actual Respiratory Rate 28 Positive End Expiratory 10 Pressure Positive End Expiratory 10 Pressure Positive End Expiratory 10 Pressure Positive End Expiratory 10 Pressure Positive End Expiratory 10 Pressure Positive End Expiratory 10 Pressure Positive End Expiratory 10 Pressure Positive End Expiratory 10 Pressure Positive End Expiratory 10 Pressure Positive End Expiratory 10 Pressure Positive End Expiratory 10 Pressure Positive End Expiratory 10 Pressure Peak Inspiratory Airway 37 Pressure Peak Inspiratory Airway 38 Pressure Peak Inspiratory Airway 38 Pressure Peak Inspiratory Airway 37 Pressure Peak Inspiratory Airway 55 Pressure Peak Inspiratory Airway 41 Pressure Peak Inspiratory Airway 42 Pressure Peak Inspiratory Airway 42 Pressure Peak Inspiratory Airway 45 Pressure Peak Inspiratory Airway 40 Pressure Peak Inspiratory Airway 41 Pressure Peak Inspiratory Airway 40 Pressure Results - Laboratory Findings CBC and BMP: 06/21/18 03:00 06/21/18 18:21 ABG ABG pH 7.24 pH Units (7.32-7.45) L 06/21/18 04:47 ABG pCO2 63 mmHg (35-45) H 06/21/18 04:47 ABG pO2 74 mmHg (85-104) L 06/21/18 04:47 ABG O2 Saturation 91 % (95-98) L 06/21/18 04:47 PT/INR, D-dimer PT 14.9 Seconds (9.4-12.1) H 06/20/18 09:50 D-Dimer 3465 ng/mLFEU (0-500) H 06/18/18 08:08 Abnormal lab findings: Abnormal lab results WBC 19.0 K/mcL (4.3-11.1) H 06/21/18 03:00 RBC 3.58 M/mcL (4.19-5.50) L 06/21/18 03:00 Hgb 11.3 g/dL (12.9-16.9) L 06/21/18 03:00 Hct 33.9 % (37.5-50.1) L 06/21/18 03:00 RDW 15.8 % (11.5-14.5) H 06/21/18 03:00 Plt Count 79 K/mcL (140-400) L 06/21/18 03:00 MPV 13.6 fL (9.4-12.4) H 06/21/18 03:00 Band Neutrophils % 8.0 % (0-4) H 06/18/18 03:05 Neutrophils # 15.9 K/mcL (1.6-8.9) H 06/21/18 03:00 Nucleated RBCs/100 WBC 0.2 /100 WBC (0) H 06/21/18 03:00 Toxic Granulation Present (Not Present) A 06/18/18 03:05 Platelet Estimate Decreased (Normal) L 06/19/18 03:10 Immature Plt Fraction 30.8 % (1.1-6.1) H 06/21/18 03:00 PT 14.9 Seconds (9.4-12.1) H 06/20/18 09:50 Fibrinogen 578 mg/dL (169-393) H 06/18/18 08:08 D-Dimer 3465 ng/mLFEU (0-500) H 06/18/18 08:08 ABG pH 7.24 pH Units (7.32-7.45) L 06/21/18 04:47 ABG pCO2 63 mmHg (35-45) H 06/21/18 04:47 ABG pO2 74 mmHg (85-104) L 06/21/18 04:47 ABG Total CO2 29 mEq/L (20-26) H 06/21/18 04:47 ABG O2 Saturation 91 % (95-98) L 06/21/18 04:47 Sodium 127 mEq/L (136-145) L 06/21/18 18:21 Chloride 96 mEq/L (98-107) L 06/21/18 18:21 BUN 25 mg/dL (6-20) H 06/21/18 18:21 Creatinine 2.12 mg/dL (0.70-1.30) H 06/21/18 18:21 Est GFR ( Amer) 40 (> 60) L 06/21/18 18:21 Est GFR (Non-Af Amer) 33 (> 60) L 06/21/18 18:21 Glucose 116 mg/dL (70-105) H 06/21/18 18:21 POC Glucose 125 mg/dL (70-99) H 06/21/18 22:22 Calculated Osmolality 269 (280-300) L 06/21/18 18:21 Calcium 6.9 mg/dL (8.6-10.3) L 06/21/18 18:21 Venous Ioniz Calcium 0.87 mmol/L (1.15-1.35) L 06/21/18 03:14 Total Bilirubin 1.3 mg/dL (0.3-1.0) H 06/21/18 03:00 Direct Bilirubin 0.7 mg/dL (0.0-0.2) H 06/21/18 03:00 Troponin I 0.92 ng/mL (< 0.04) H* 06/17/18 22:33 Serum Total Protein 5.6 g/dL (6.4-8.9) L 06/21/18 03:00 Albumin 2.7 g/dL (3.5-5.7) L 06/21/18 18:21 Albumin/Globulin Ratio 0.9 (1.1-2.2) L 06/21/18 03:00 Procalcitonin 107.11 ng/mL (<=0.07) H 06/17/18 16:40 Vancomycin Trough 18 mcg/mL (5-10) H 06/19/18 08:20 Urine Opiates Screen Positive ng/mL (Keyniz=098) H 06/18/18 10:37 U Benzodiazepines Scrn Positive ng/mL (Dqizpb=626) H 06/18/18 10:37 - Microbiology Findings Microbiology Findings: Microbiology, Last 48 Hours 06/18/18 20:45 Sputum Culture - Preliminary Sputum 06/20/18 11:30 Legionella Antigen - Final Urine,[place] Streptococcus pneumoniae Antigen (M - Final - Clinical Findings Intake & Output: Intake & Output 06/21/18 06/21/18 06/21/18 07:59 15:59 23:59 Intake Total 1087.4 / 1087.4 694.8 / 694.8 484.1 / 484.1 Output Total 896 / 896 1034 / 1034 1041 / 1041 Balance 191.4 / 191.4 -339.2 / -339.2 -556.9 / -556.9 Weight 131.5 kg - Attending Attestation - Attending Attestation I saw and evaluated this patient and my medical decision-making was reviewed with the Resident Physician. I agree with the documented findings, disposition and treatment plan as described except to the extent set forth below. We independently had akie-ma-dium contact with the patient I spent 40 minutes of Critical Care time with this patient. It involved decision making of high complexity to assess, manipulate, and support vital organ system failure and/or to prevent further life threatening deterioration of the patient's condition. The time involved in the performance of separately reportable procedures was not counted toward critical care time. Patient seen and examined at bedside Labs, radiology, chart personally reviewed. Management was reviewed during multidisciplinary critical care rounds. 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 / Pulm: Patient has severe VQ mismatch with some sun physiology most likely secondary to valvular prosthesis pneumonia versus pulmonary edema. He was requiring high FiO2 and high PEEP therapy wanted to prone this patient but patient became severely hemodynamically unstable which is a contraindication for pronating so we held off pronating the patient . I will volume strategy the Plateau pressure was acceptable patient currently with acceptable oxygenation and ventilation at a reduced the PEEP therapy because patient was severely hypotensive.. Since patient is hypertensive will tolerate higher FiO2 low PEEP strategy. 06/18 To continue with low tidal volume strategy patient with acceptable oxygenation and ventilation 06/19 adjusted tidal volume to keep the plateau pressure less than 30 acceptable oxygenation and ventilation 06/20 Adjusted the minute ventilation , acceptable oxygenation and ventilation . 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 Patient is in refractory severe septic shock with stress dose steroids.. He is on 3 different multiple vasopressors insulin (he had a Dobutrex because of this low EF as phenylephrine will reduce the cardiac output due to it's baroreceptor reflex to continue levophed and vasopressin. 06/18 Patient still in septic shock to continue Vasopressor to liberate vasopressor as tolerated . 06/19 Patient is off Vasopression , to liberate dobutamine next and then Levophed . 06/20 Patient is slowly liberating from the vasopressors 06/21 Patient is off dobutamne to continue other vasopressors FEN-GI: Nothing by mouth for now Renal: Patient has decreased urine output most likely he will develop acute kidney injury secondary to sepsis induced ATN . Patient is on CVVH ID : culture done patient on broad-spectrum antibiotics most likely source for septic shock as pneumonia cannot perceive managing chest and abdomen because patient has hemodynamically unstable. When he is stable we will do CT Chest and Abdomen 06/18 Patient septic shock not improving will add antifungal 06/19 Blood culture growing karo in blood patient was started on antifungal yesterday to continue micafungin and broad spectrum antibiotics will get Ct chest abdomen and pelvis . 06/20 Patient has candidemia .ID on consult 06/21 Patient has candidemia to follow ID recs Heme/Onc: Labs reviewed has some thrombocytopenia continue thromboprophylaxis Endo: Glucose Monitored Integ/MSK: Skin Care per routine ICU Nursing Protocol to prevent ulcers. Lines: All lines examined without evidence of infection : Dispo: Critically ill CODE: Full Code Family was fully updated .
[2018-06-21] MEDS: Micafungin 100 MG in 0.9 % Sodium Chloride Mini Bag 100 ML IVPB SCH (08:24)
[2018-06-21] MEDS: Chlorhexidine Rinse 15 ML MOUTHWASH MM SCH ×2 (08:24→20:02)
[2018-06-21] MEDS: Pantoprazole 40 MG VIAL IVP SCH (08:24)
[2018-06-21] MEDS: Nystatin SUSP 5 ML UD.LIQ PO SCH ×4 (08:45→20:02)
[2018-06-21 11:40] LABS: Albumin 2.6 g/dL (3.5-5.7); Calcium 6.9 mg/dL (8.6-10.3); Potassium 4.5 mEq/L (3.5-5.1)
--- NOTE | 2018-06-21 11:52 | Nephrology Progress Note ---
Date of Encounter: 06/21/18 Time of Encounter: 11:52 - Assessment and Plan (1) LUCILA (acute kidney injury) Current Visit: Yes Status: Acute Patient with multifactorial acute kidney injury. He is now dialysis dependent. He is on continuous renal replacement therapy. We will attempt gentle UF as tolerated. Renal dose medications and avoid nephrotoxins if possible. (2) Acute respiratory failure with hypoxemia Current Visit: Yes Status: Acute He is currently intubated. Per critical care team. (3) Hypocalcemia Current Visit: Yes Status: Acute RePlace as needed. (4) Septic shock Current Visit: Yes Status: Acute Continue pressors as needed. Patient with multi-organ failure. (5) Type 2 diabetes mellitus Current Visit: Yes Status: Chronic Qualifiers: Diabetes mellitus long-term insulin use: with terminal worker use Diabetes mellitus complication status: with unspecified complications Qualified Code(s) : E11.8 - Type 2 diabetes mellitus with unspecified complications; Z79.4 - skilled nursing (current) use of insulin Subjective Principal diagnosis: septic shock Interval history: Patient seen on CRRT. He is intubated and sedated ROS is unobtainable. Objective - Vital Signs Vital signs: Vital Signs Temp Pulse Pulse Pulse Resp Resp Resp 06/21/18 11:31 26 06/21/18 11:00 97.6 F 79 26 06/21/18 10:00 93 30 06/21/18 09:12 22 06/21/18 09:00 78 23 06/21/18 08:00 97.8 F 91 25 06/21/18 07:57 97.8 F 82 22 06/21/18 07:00 97.8 F 80 25 06/21/18 06:00 76 24 06/21/18 05:39 23 06/21/18 05:00 98 F 92 24 06/21/18 04:00 92 24 06/21/18 03:21 30 06/21/18 03:02 97.6 F 77 22 06/21/18 02:00 96.6 F L 75 22 06/21/18 01:27 23 06/21/18 01:00 97.6 F 82 22 06/21/18 00:00 97.6 F 82 22 06/20/18 23:20 23 06/20/18 23:03 97.2 F L 79 23 06/20/18 22:07 84 23 06/20/18 21:34 24 06/20/18 21:05 98 F 79 22 06/20/18 20:00 79 22 06/20/18 19:45 22 06/20/18 19:00 97.6 F 84 24 06/20/18 18:00 81 22 06/20/18 17:06 23 06/20/18 17:00 92 22 06/20/18 16:47 92 22 06/20/18 15:30 98.4 F 96 23 06/20/18 14:34 96 23 06/20/18 14:25 95 91 22 22 06/20/18 13:47 22 06/20/18 13:00 96 23 06/20/18 12:30 97.8 F 99 24 BP BP BP Pulse Ox 06/21/18 11:31 90/59 96 06/21/18 11:00 86/62 94 06/21/18 10:00 92/58 88 06/21/18 09:12 84/57 95 06/21/18 09:00 84/57 95 06/21/18 08:00 84/55 94 06/21/18 07:57 89/65 93 06/21/18 07:00 84/55 94 06/21/18 06:00 84/57 94 06/21/18 05:39 85/58 94 06/21/18 05:00 101/67 92 06/21/18 04:00 108/79 92 06/21/18 03:21 108/79 91 06/21/18 03:02 83/59 96 06/21/18 02:00 98/65 94 06/21/18 01:27 95/66 94 06/21/18 01:00 107/65 92 06/21/18 00:00 100/62 92 06/20/18 23:20 100/62 93 06/20/18 23:03 91/58 92 06/20/18 22:07 91/58 92 06/20/18 21:34 91/58 92 06/20/18 21:05 93/60 94 06/20/18 20:00 93/60 94 06/20/18 19:45 93/60 93 06/20/18 19:00 108/70 91 06/20/18 18:00 95/67 94 06/20/18 17:06 90/65 93 06/20/18 17:00 82/58 94 06/20/18 16:47 82/58 94 06/20/18 15:30 81/56 92 06/20/18 14:34 81/56 92 06/20/18 14:25 94/65 85/56 06/20/18 13:47 93/62 93 06/20/18 13:00 81/56 92 06/20/18 12:30 84/58 92 Intake and Output 06/20/18 06/21/18 06/21/18 23:59 07:59 15:59 Intake Total 1972. / 1972.0 1087.4 / 1087.4 246.3 / 246.3 Output Total 599 / 599 896 / 896 450 / 450 Balance 1374.0 / 1374.0 191.4 / 191.4 -203.7 / -203.7 Intake: IV Fluids 1972. 1087.4 / 1087.4 246.3 / 246.3 PrismaSATE BGK 4/2.5 5,000 ML @ 0 / 0 0 / 0 0 / 0 2000 mls/hr CRRT CONT NADIA Rx#: [id number] Vasostrict 40 UNIT In Dextrose 90.0 / 90.0 54.0 / 54.0 18.1 / 18.1 5% 100 ML @ 0.03 UNIT/MIN 4.59 mls/hr IV .[id number] NADIA Rx#: [id number] DOBUTamine 250 MG In Dextrose 5 342.0 / 342.0 % 230 ML @ 10 MCG/KG/MIN 67.68 mls/hr IVC .Q3H42M NADIA Rx#: [id number] FentaNYL (PF) 1,000 MCG In 0.9 231.0 / 231.0 % Sodium Chloride 80 ML @ 50 MCG/HR 5 mls/hr IVC CONT NADIA Rx #:[id number] FentaNYL (PF) 2,500 MCG In 24.1 / 24.1 14.4 / 14.4 Empty Bag 1 Each @ 50 MCG/HR 1 mls/hr IVC CONT NADIA Rx#: [id number] HumuLIN R 250 UNIT In 0.9 % 8.0 / 8.0 40.1 / 40.1 1.6 / 1.6 Sodium Chloride 250 ML @ Per Protocol IVC CONT NADIA Rx#: [id number] Versed 50 MG In 0.9 % Sodium 100.0 / 100.0 33.0 / 33.0 16.8 / 16.8 Chloride 90 ML @ 2 MG/HR 4 mls/ hr IVC CONT [facility] Rx#:[id number] Levophed 8 MG In Dextrose 5% 542.0 / 542.0 526.2 / 526.2 89.4 / 89.4 250 ML @ 30 MCG/MIN 58.05 mls/ hr IVC CONT NADIA Rx#:[id number] Calcium Gluconate 1,000 MG In 0 110 / 110 110 / 110 .9 % Sodium Chloride 100 ML @ 220 mls/hr IVPB Q6HR PRN Rx#: [id number] Levaquin Premix 750mg/150 mL 150 / 150 750 mg In 150 ml @ 100 mls/hr IVPB Q48H NADIA Rx#:[id number] Mycamine 100 MG In 0.9 % Sodium 100 / 100 106.0 / 106.0 Chloride (Mini-Bag +) 100 ML @ 100 mls/hr IVPB DAILY NADIA Rx#: [id number] Zosyn 3.375 GM In 0.9 % Sodium 100 / 100 200 / 200 Chloride (Mini-Bag +) 100 ML @ 25 mls/hr IVPB Q8H NADIA Rx#: [id number] Potassium Chloride 20 mEq/100 200 / 200 mL 40 meq In 200 ml @ 100 mls/ hr IVPB Q1H PRN Rx#:[id number] Vancocin 500 MG In 0.9 % Sodium 100 / 100 Chloride (Mini-Bag +) 100 ML @ 100 mls/hr IVPB ONCE ONE Rx#: [id number] 0.9 % Sodium Chloride 1,000 ML 0 / 0 @ Per Protocol PRIME .Q0M ONE Rx#:[id number] Output: Urine 4 / 4 32 / 32 Kimmie 461 / 461 826 / 826 418 / 418 Catheter 34 / 34 70 / 70 Gastric Drainage 100 / 100 Other: Weight 131.5 kg 131.5 kg Blood Glucose* 113 122 109 Patient Weight 06/21/18 23:59 Weight 131.5 kg - General Appearance General appearance: Present: well-developed, well-nourished EENT: Present: ATNC Neck: Present: supple Respiratory: Present: course breath sounds Cardiology: Present: edema Dialysis Vascular Access: Venous Catheter Gastrointestinal: Present: obese - Lab 06/21/18 03:00 06/21/18 18:21 Most recent lab results ABG pH 7.24 pH Units (7.32-7.45) L 06/21/18 04:47 ABG pCO2 63 mmHg (35-45) H 06/21/18 04:47 ABG pO2 74 mmHg (85-104) L 06/21/18 04:47 ABG HCO3 27 mEq/L (21-27) 06/21/18 04:47 ABG O2 Saturation 91 % (95-98) L 06/21/18 04:47 Calcium 6.9 mg/dL (8.6-10.3) L 06/21/18 10:55 Phosphorus 4.0 mg/dL (2.7-4.5) 06/21/18 10:55 Magnesium 2.3 mg/dL (1.6-2.6) 06/21/18 03:00 Urine Sodium 128.8 mEq/L 06/17/18 18:15 - VTE Documentation of Mechanical Device: Intermittent pneumatic compression device Consult Discharge Plan - Plan Referrals: Sheryl Stahl, [employer] [Primary Care Provider] -
[2018-06-21 19:53] LABS: Albumin 2.7 g/dL (3.5-5.7); Calcium 6.9 mg/dL (8.6-10.3); Phosphorous 3.9 mg/dL (2.7-4.5); Potassium 4.5 mEq/L (3.5-5.1)
[2018-06-21] MEDS ORDERED: *HR* Heparin 5,000 UNIT/ML VIAL ONE (23:07)
[2018-06-22] MEDS: WATER IVC SCH ×9 (00:19→20:25)
[2018-06-22] MEDS: DOBUTAMINE HCL IVC SCH ×9 (00:19→20:25)
[2018-06-22] MEDS: D5 IVC SCH ×9 (00:19→20:25)
[2018-06-22] MEDS: Artificial Tears SOLN 15 ML BOTTLE BOTH EYES SCH ×7 (00:22→23:40)
[2018-06-22 01:11] LABS: Albumin 2.6 g/dL (3.5-5.7); Calcium 6.9 mg/dL (8.6-10.3); Potassium 4.6 mEq/L (3.5-5.1)
[2018-06-22] MEDS: PrismaSATE BGK 4/2.5 5,000 ML CRRT SCH ×8 (01:54→23:43)
[2018-06-22] MEDS: Norepinephrine 8 MG in D5% in Water 250 ML IVC SCH ×3 (03:03→18:34)
[2018-06-22] MEDS: *HR* Heparin 5,000 UNIT/ML VIAL IV PRN ×2 (03:24→13:22)
[2018-06-22] MEDS: Insulin Human Regular 250 UNIT in 0.9 % Sodium Chloride 250 ML IVC SCH ×2 (03:25→20:26)
[2018-06-22 04:01] LABS: Basophils % 0.5 %; Eosinophils % 0.1 %; Red Cell Distribution Width 15.9 % (11.5-14.5)
[2018-06-22 04:03] LABS: Basophils # 0.1 K/mcL (0.0-0.2); Hematocrit 32.7 % (37.5-50.1); Hemoglobin 10.6 g/dL (12.9-16.9); Immature Granulocytes % 6.1 % (0-4); Immature Platelets 27.2 % (1.1-6.1); Lymphocytes # 1.6 K/mcL (0.6-4.6); Lymphocytes % 6.6 %; Mean Corpuscular HGB Conc 32.4 g/dL (31.6-35.5); Mean Corpuscular Hemoglobin 31.4 pg (28.0-33.3); Mean Corpuscular Volume 96.7 fL (83.0-100.0); Mean Platelet Volume 13.2 fL (9.4-12.4); Monocytes # 1.3 K/mcL (0.0-1.3); Monocytes % 5.4 %; Neutrophils # 20.1 K/mcL (1.6-8.9); Nucleated Red Blood Cells 0.1 /100 WBC (0); Red Blood Count 3.38 M/mcL (4.19-5.50); Segmented Neutrophils % 81.3 %
[2018-06-22 04:05] LABS: Platelet Count 82 K/mcL (140-400)
[2018-06-22 04:10] LABS: INR 1.5; Prothrombin Time 16.7 Seconds (9.4-12.1)
[2018-06-22 04:26] LABS: Albumin 2.6 g/dL (3.5-5.7); Albumin/Globulin Ratio 0.9 (1.1-2.2); Bilirubin,Total 1.1 mg/dL (0.3-1.0); Calcium 6.8 mg/dL (8.6-10.3); Potassium 4.6 mEq/L (3.5-5.1); Total Protein 5.6 g/dL (6.4-8.9)
[2018-06-22] MEDS: Piperacillin/Tazobactam 3.375 GM in 0.9 % Sodium Chloride Mini Bag 100 ML IVPB SCH ×3 (04:28→19:40)
[2018-06-22 04:34] LABS: Platelet Estimate Decreased (Normal); Toxic Vacuolation Present (Not Present)
[2018-06-22] MEDS: *HR* Heparin 5,000 UNIT/ML VIAL SQ SCH (05:25)
[2018-06-22 05:29] LABS: ABG Base Excess -2 mEq/L (-2 to 3); ABG HCO3 26 mEq/L (21-27); ABG Oxygen Saturation 90 % (95-98); ABG PCO2 57 mmHg (35-45); ABG PH 7.27 pH Units (7.32-7.45); ABG PO2 67 mmHg (85-104); ABG TCO2 28 mEq/L (20-26); Blood Gas Modality ASSIST CONTROL; Blood Gas PEEP 10 cm H2O; Blood Gas Respiration Rate 26; Blood Gas VT 380 cc
[2018-06-22] MEDS ORDERED: *HR* Heparin 5,000 UNIT/ML VIAL ONE (06:19)
[2018-06-22 06:45] LABS: Albumin 2.7 g/dL (3.5-5.7); Calcium 6.9 mg/dL (8.6-10.3); Phosphorous 3.9 mg/dL (2.7-4.5); Potassium 4.6 mEq/L (3.5-5.1)
[2018-06-22] MEDS ORDERED: 0.9 % Sodium Chloride 500 ML ONE (07:47)
[2018-06-22] MEDS: Micafungin 100 MG in 0.9 % Sodium Chloride Mini Bag 100 ML IVPB SCH (08:48)
[2018-06-22] MEDS: Chlorhexidine Rinse 15 ML MOUTHWASH MM SCH ×2 (08:49→19:40)
[2018-06-22] MEDS: Nystatin SUSP 5 ML UD.LIQ PO SCH ×4 (08:49→19:40)
[2018-06-22] MEDS: Pantoprazole 40 MG VIAL IVP SCH (08:49)
--- NOTE | 2018-06-22 09:01 | Pulmonology Progress Note ---
<Nikole Mooney - Last Filed: 06/22/18 12:30> Date of Encounter: 06/22/18 Time of Encounter: 09:01 Assessment and Plan (1) Septic shock Current Visit: Yes Status: Acute 06/17/18 Septic shock, unknown source. He was transferred from [place] ED on 06/17/18. He had received 3 liters of IV fluids. At presentation he was not hemodynamically stable. He was hypokalemic, had leukocystosis, LUCILA, elevated troponin and lactic acid of 6.6. He was intubated at presentation. Since his presentation he required three different maximum doses of pressors and additional IV fluids. Currently he is on dobutamine, norepi and phenylephrine. His entire body has molting. He has a femoral central line and two peripheral lines. He also has an arterial lines. He is getting electrolyte replacement. He is on broad spectrum antibiotics. Additionally trying to keep a nice balance between sedation and comfort care without negatively affecting his hemodynamic status. Spoke with family numerous times today about goals of care. Given his acute decompensation further decisions will be made at a later time by family. -Awaiting blood cultures -MRSA swab negative and respiratory panel negative -Continuing broad spectrum antibiotics--zosyn, vancomycin and levaquin (day 1) -Currently on versed for sedation and not responding -Can consider using propofol and fentanyl, although start with low dose due to his hemodynamic status -Continue dobutamine, norepi, phenylephrine and dobutamine can be stopped or weaned first if hemodynamically improving 06/18/18 Septic shock. Blood culture returned this evening and showed yeast albican. His urine grew yeast. Preliminary fungal coverage was started with micafungin given his acute status prior to blood cultures returning. -Vasopressin was stopped. He is now on dubutamine and norepi. His pressure is stable since stopping it and his MAP is in the 60s. -Continue zosyn, vancomycin and levaquin (day 2) 06/19/18 Continue micafungin therapy. Infectious disease is consulted. He is being weaned off the dobutamine and this evening was on 12 and 25 of norepi. His MAP has remained at 66 today. Continue zosyn, vancomycin and levaquin (day 3). Will consider stopping vancomycin given negative MRSA and no abscess finding per CT. New blood cultures sent today for repeat study. 06/20/18: -Continue micafungin therapy. Infectious disease recommended optholomology consult and will do that in the morning. He is being weaned off the dobutamine and maximizing norepinephrine and using vassopressin if additional pressor support required. His MAP has remained at 66 today. Continue zosyn, vancomycin and levaquin (day 4). Infectious disease recommends continuing the antibiotics. No growth on the repeat cultures from 06/19/18. 06/21/18: -Continue micafungin therapy. Infectious disease recommended optholomology consult but after a thorough examination no swelling was noted around the orbit and there is no visible erythema. He is now weaned off the dobutamine. He is on 0.04 units/min of vasopressin and 25.16 of norepinephrine, decreasing his vasopressor demands. His MAP was lower today, around 62. Continue zosyn, vancomycin and levaquin (day 5). Infectious disease recommends continuing the antibiotics. No growth on the repeat cultures from 06/19/18. And negative strep pneumo and legionella antigen. His KUB shows now sign of perforation but diffuse anascara. 06/21/18: -Sepsis suspected secondary to karo fungemia. Continue micafungin therapy. Infectious disease recommended optholomology consult but after a thorough examination no swelling was noted around the orbit and there is no visible erythema. He is on 0.04 units/min of vasopressin and norepinephrine decreased from 25 to 19.. His MAP improved overnight and was 73 this morning. Continue zosyn and vancomycin (day 6). Levaquin stopped as per infectious disease recommendation if strep pneumonia and strep legionella urine is negative. Infectious disease recommends continuing the antibiotics. No growth on the repeat cultures from 06/19/18. His KUB shows no sign of perforation but diffuse anascara. (2) Acute respiratory failure with hypoxemia Current Visit: Yes Status: Acute Transferred from the ED at [place]. It is likely due to pneumonia and septic shock. He was intubated at presentation. His PO2 was 66. His pH was within normal limits, his carbon dioxide was elevated at 61 with metabolic compensation of 36. His most recent repeat pH was 7.40, PCO2 was 52, HCO3 was 32 and PO2 of 53. -Continue ventilator, PEEP of 10 and tidal volume of 400 and FiO2 of 50 -Pending sputum cultures -Repeat ABG at 2300, adjust ventilator settings as needed -Continue vancomycin, zosyn and levaquin 06/18 On ventilator, PEEP of 10, Tidal volume of 400 and FiO2 of 60. ABG: pH: 7.39, PCO2: 55, PO2: 65, HCO3: 34. -Sputum culture not collected -Continue micafungin and broad spectrum antibiotics 06/19/18 On ventilator, PEEP of 10, Tidal volume of 380 and FiO2 of 60. ABG: pH: 7.32, PCO2: 56, PO2: 56, HCO3: 29. Continue to monitor. Recheck ABGs if changes in respiratory status. 06/20/18: On ventilator. PEEP of 10, Tidal volume of 380 and FiO2 of 60. Although his pH slightly worsened this morning per ABG his oxygen saturation is much better; ABG : pH: 7.28, PCO2: 56, PO2: 765 HCO3: 26. Continue to monitor. Recheck ABGs if changes in respiratory status. 06/21/18: On ventilator. PEEP of 10. Tidal volume 380, FiO2 60. His oxygen saturation continues to remain stable but his pH is lower due to increased pCO2. Continue to monitor and recheck ABGs if changes in his respiratory status. 06/22/18: On ventilator. PEEP of . Tidal volume of 380, FiO2 60. His oxygen saturation continues to remain stable but his pH is lower due to respiratory acidosis, there may be a leak in the ET tube balloon as his expiratory volume is lower than tidal volume. Continue to monitor and recheck ABGs if changes in his respiratory status. (3) Systolic heart failure Current Visit: Yes Status: Acute Transferred from [place]. At presentation he was not hemodynamically stable. His blood pressure was 60s/40s. His rhythm was sinus tachycardic. There was no edema noted on exam. Upon auscultation he had decreased lung sounds at all lung lobes. He had an echo this morning. Per echo his EF is 20% with global systolic dysfunction. There is no previous echos to compare this finding. His blood pressure this evening is 107/66. Has history of hypertension at home and use to take three different antihypertensives at home as well as furosemide. Per family he is compliant with his medications. -Continue pressors to maintain perfusion -Repeat EKG tomorrow morning 06/18: -His MAP has improved since admission and today was low 60s with two pressors -Continue to wean the pressors as tolerated while keeping MAP above 60. 06/19: -His MAP has improved since admission and today it remained in the 66s with two pressors -Continue to wean dobutamine as tolerated while keeping MAP above 60. 8/: His MAP this morning continued to be in the 66s although he is requiring less pressors. Continue to wean dobutamine and can use vassopressor if need addition pressor requirement along with norepi. Keep MAP above 60. 8/ His MAP was slightly lower today, around 62 but he was weaned off the dobutamine and although he is requiring less pressors. Continue to wean dobutamine and can use vassopressor if there is additional pressor requirement along with norepi. Keep MAP above 60. 8/: Improvement in his MAP, today in the low 70s even with less pressor utilization. Continue to monitor and titrate pressors as he tolerates to keep the MAP above 60. Qualifiers: Heart failure chronicity: unspecified Qualified Code(s): I50.20 - Unspecified systolic (congestive) heart failure (4) Hypokalemia Current Visit: Yes Status: Resolved His potassium at admission was 1.9. He has received very high amount of potassium replacement therapy and with close monitoring was not responding much. It was decided to only use IV due to lack of efficacy from PO given he has no bowel sounds, with decreased gut motility. His most initial potassium was 3.5. There is electrolyte protocol on board. -Continue to monitor and replace if below 4.0 06/18: -Resolved with 3.5 tonight. Electrolyte protocol is on board. Continue to monitor and replace. 06/19: -Improving, stable at 3.5 today. He is on electrolyte protocol. Continue to monitor and replace. 06/20: -Resolved. Continue to monitor with electrolyte protocol. 06/21/18: Resolved. Continue to monitor with electrolyte protocol. 06/22/18: -Resolved. Continue to monitor with electrolyte protocol. (5) LUCILA (acute kidney injury) Current Visit: Yes Status: Acute At presentation his creatinine was 1.92 and repeat creatinine was 1.54. His urine output has slightly decreased due to his worsened hemodynamic status but as his hemodynamic status started to improve so did his urine output. Since admission his urine output has been 1925 ml. -Continue to renally dose his medications -Will continue to monitor his urinary output 06/18: -His creatinine today is 1.64, likely due to decreased renal perfusion from septic shock. Will consider de-escalating vancomycin given his worsening renal function and no blood cultures positive for bacteria. He is having better urine output since his admission, with about 50 ml per hour. 06/19: His creatinine today is 1.88, likely related to ATN from septic shock. Nephrology is following. Due to decreased urine output with anascara he will likely require dialysis tomorrow. 06/20: His creatinine today was 2.56 and he has less urine output, although stable for the past a few days in terms of urine output. Nephrology is following. He is getting tammie. 06/21: His creatinine today was 2.26. Minimal urine output, but on Tammie. 06/22: -Improvement in his creatinine, 1.97 today. Minimal urine output, continue Tammie. Nephrology following. (6) Hypocalcemia Current Visit: Yes Status: Acute Ioninzed calcium was 0.87 today. He is on calcium gluconate as calcium replacement. -Continue to monitor (7) Thrombocytopenia Current Visit: Yes Status: Acute His platelets dropped from 126 to 75 overnight. There is no site of bleeding. Orders were made to rule out DIC. Fibrinogen was elevated which should be decreased in DIC. Also given there is no site of bleeding and his high risk of clotting in septic shock, SubQ heparin for DVT prophylaxis will be resumed. Continue to monitor by exam and labs. 06/19: His platelet count is 67 today. There is no evidence of acute blood loss, his hemoglobin is stable. There is no hematoma found. Possibly related to the shock kidney producing less erythropoetin. 06/20: It is stable and slightly improved from yesterday. Today was 72. It is likely related to shock and poor renal function resulting in less erythropoetin production. 06/21: Improved, today is 79 and yesterday was 72. It is likely related to shock and poor renal function resulting in less erythropoetin production but with starting Tammie his renal function is regaining and he may have better outcome. 06/22: Improving, 82 today. It is related to shock and suspected heparin induced thrombocytopenia. Heparin is stopped, added argatraban for HIT therapy. 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 Avoid heparin. Added argatraban. (9) Elevated troponin Current Visit: Yes Status: Acute His troponin was 0.22 at 03:35. [place], then trended to 0.61 and then went up to 0.83. This is likely due to global cardiac dysfunction due to septic shock. Stat echo was conducted and showed EF of 20% with global systolic dysfunction. His rhythm here has remain sinus tachycardic. -If his respiratory status improves further imaging will be considered tomorrow -Trending troponin, will repeat at 2300 tonight -Will repeat EKG in the morning 06/18: -His latest high troponin was 0.92. Given his acute state it is suspected the troponin is due to acute septic shock. 06/19: -EKG on 06/18 showed no changes. His rhythm has remained sinus. Suspected to be increased due to septic shock. Echo showed LV systolic dysfunction and mild left diastolic dysfunction. 06/20: -His rate and rhythm has remained stable today and had no rhythm changes since admission. Likely related to the shock state given it was a very low increase each time. Echo did not show any localized wall motion abnormality. l (10) Type 2 diabetes mellitus Current Visit: Yes Status: Chronic Today his glucose is 161 and he is on insulin at home. Per family he is not compliant with his diabetic diet and drinks excessive amount of mountain dew. He was started on high sliding scale of lispro at admission here. He is on IV insulin drip. There is no anion gap. Started trickle feeds. -Continue to monitor -Continue IV insulin Qualifiers: Diabetes mellitus skilled nursing insulin use: with skilled nursing use Diabetes mellitus complication status: with unspecified complications Qualified Code(s) : E11.8 - Type 2 diabetes mellitus with unspecified complications; Z79.4 - terminal gauger (current) use of insulin (11) COPD (chronic obstructive pulmonary disease) Current Visit: No Status: Chronic History of COPD. At home he is on respimat and albuterol. Per family he is also on home oxygen but is not compliant with it. His current respiratory distress could be worsened due to his chronic disease process. Chest xray shows diffuse bilateral opacity which is likely pulmonary congestion versus infectious cause. -Continue ventilator control -Continue broad spectrum antibiotics 06/18: -Continue ventilator. He is requiring less tidal volume, his PEEP is 10 to decrease excessive alveolar requirement to minimize lung injury. His ABG continues to have elevated CO2 and appropriate increase in HCO3 to keep the pH within normal limits. 06/19: -Continue ventilator. His tidal volume was reduced today and his RR was increased to help decreased the peak inspiratory plateau pressure. Will continue to monitor ABGs. 06/20: -Continue ventilator. His ABGs showed significant improved in PaO2. Will repeat and monitor in the morning. 06/21: -Continue ventilator. PCO2 continues to remain elevated although his respiratory rate is set at 22, likely because he tried to pull his endotracheal tube. 06/22: -Continue ventilator, adjust at tolerated. He may require a different tube if the balloon is torn. Risk with changing the tube given his low PaO2. Qualifiers: COPD type: emphysema Emphysema type: unspecified Qualified Code(s): J43.9 - Emphysema, unspecified (12) DVT prophylaxis Current Visit: Yes Status: Acute Avoid heparin Suspected HIT, added agatraban Subjective Principal diagnosis: septic shock Interval history: Mr. Mccarthy was seen at bedside this morning. He was sedated and intubated and on ventilator with not much improvement in PaO2. Overnight he had no acute events and responded well to fentanyl and versed for sedation. His epinephrine rate is 19 this morning and vassopressor at 0.04, lower pressor requirement with significant improvement in his MAP, today MAP is 73. His potassium has improved. His urine output continues to be low and was on 43 today but is on dialysis. His abdomen stayed distended. His CT of the abdomen showed anascara and bilateral pulmonary infiltrates, suspected to be pneumonia. His platelet count improved to 82 today. Two of the tubes from outside blood cultures were positive for karo albican and he is on micofungin. Repeat blood cultures here have been negative. His eyes were examined and did not show erythema. He was started on tammie two days ago. He is having more clots with the Tammie and we will start agatraban for suspected HIT treatment. Objective PUL Vital signs: Last Vital Signs Temp 97.5 F L 06/22/18 08:00 Pulse 73 06/22/18 08:00 Resp 26 06/22/18 08:16 BP 89/64 06/22/18 08:16 Pulse Ox 93 06/22/18 08:16 General appearance: other (sedated and intubated) Eyes: nonicteric ENT: oropharynx moist Auscultation: bilateral: wheezes (mild inspiratory wheeze) Cardiovascular: regular rate and rhythm Gastrointestinal: absent bowel sounds (distended ) Extremities: no cyanosis, no edema other (intubated and sedated) Ventilator Settings Ventilator Settings: Ventilator Settings, Last 8 Hours Ventilator Tidal Volume 400 Setting Ventilator Tidal Volume 400 Setting Ventilator Tidal Volume 380 Setting Ventilator Tidal Volume 380 Setting Ventilator Tidal Volume 380 Setting Ventilator Tidal Volume 380 Setting Ventilator Tidal Volume 380 Setting Ventilator Tidal Volume 380 Setting Ventilator Tidal Volume 380 Setting Ventilator Tidal Volume 380 Setting Ventilator Tidal Volume 380 Setting Ventilator Tidal Volume 380 Setting Ventilator Respiratory Rate 26 Setting Ventilator Respiratory Rate 24 Setting Ventilator Respiratory Rate 26 Setting Ventilator Respiratory Rate 26 Setting Ventilator Respiratory Rate 26 Setting Ventilator Respiratory Rate 26 Setting Ventilator Respiratory Rate 26 Setting Ventilator Respiratory Rate 26 Setting Ventilator Respiratory Rate 26 Setting Ventilator Respiratory Rate 26 Setting Ventilator Respiratory Rate 26 Setting Ventilator Respiratory Rate 26 Setting Actual Respiratory Rate 26 Actual Respiratory Rate 26 Actual Respiratory Rate 26 Actual Respiratory Rate 26 Actual Respiratory Rate 26 Actual Respiratory Rate 26 Actual Respiratory Rate 26 Actual Respiratory Rate 26 Actual Respiratory Rate 26 Actual Respiratory Rate 26 Actual Respiratory Rate 26 Positive End Expiratory 10 Pressure Positive End Expiratory 10 Pressure Positive End Expiratory 10 Pressure Positive End Expiratory 10 Pressure Positive End Expiratory 10 Pressure Positive End Expiratory 10 Pressure Positive End Expiratory 10 Pressure Positive End Expiratory 10 Pressure Positive End Expiratory 10 Pressure Positive End Expiratory 10 Pressure Positive End Expiratory 10 Pressure Positive End Expiratory 10 Pressure Peak Inspiratory Airway 46 Pressure Peak Inspiratory Airway 35 Pressure Peak Inspiratory Airway 35 Pressure Peak Inspiratory Airway 37 Pressure Peak Inspiratory Airway 33 Pressure Peak Inspiratory Airway 36 Pressure Peak Inspiratory Airway 36 Pressure Peak Inspiratory Airway 35 Pressure Peak Inspiratory Airway 35 Pressure Peak Inspiratory Airway 37 Pressure Peak Inspiratory Airway 38 Pressure Results - Laboratory Findings CBC and BMP: 06/22/18 03:45 06/22/18 06:15 ABG ABG pH 7.27 pH Units (7.32-7.45) L 06/22/18 05:27 ABG pCO2 57 mmHg (35-45) H 06/22/18 05:27 ABG pO2 67 mmHg (85-104) L 06/22/18 05:27 ABG O2 Saturation 90 % (95-98) L 06/22/18 05:27 PT/INR, D-dimer PT 16.7 Seconds (9.4-12.1) H 06/22/18 03:45 D-Dimer 3465 ng/mLFEU (0-500) H 06/18/18 08:08 Abnormal lab findings: Abnormal lab results WBC 24.7 K/mcL (4.3-11.1) H 06/22/18 03:45 RBC 3.38 M/mcL (4.19-5.50) L 06/22/18 03:45 Hgb 10.6 g/dL (12.9-16.9) L 06/22/18 03:45 Hct 32.7 % (37.5-50.1) L 06/22/18 03:45 RDW 15.9 % (11.5-14.5) H 06/22/18 03:45 Plt Count 82 K/mcL (140-400) L 06/22/18 03:45 MPV 13.2 fL (9.4-12.4) H 06/22/18 03:45 Immature Gran % 6.1 % (0-4) H 06/22/18 03:45 Band Neutrophils % 8.0 % (0-4) H 06/18/18 03:05 Neutrophils # 20.1 K/mcL (1.6-8.9) H 06/22/18 03:45 Nucleated RBCs/100 WBC 0.1 /100 WBC (0) H 06/22/18 03:45 Toxic Granulation Present (Not Present) A 06/18/18 03:05 Toxic Vacuolation Present (Not Present) A 06/22/18 03:45 Platelet Estimate Decreased (Normal) L 06/22/18 03:45 Immature Plt Fraction 27.2 % (1.1-6.1) H 06/22/18 03:45 PT 16.7 Seconds (9.4-12.1) H 06/22/18 03:45 Fibrinogen 578 mg/dL (169-393) H 06/18/18 08:08 D-Dimer 3465 ng/mLFEU (0-500) H 06/18/18 08:08 ABG pH 7.27 pH Units (7.32-7.45) L 06/22/18 05:27 ABG pCO2 57 mmHg (35-45) H 06/22/18 05:27 ABG pO2 67 mmHg (85-104) L 06/22/18 05:27 ABG Total CO2 28 mEq/L (20-26) H 06/22/18 05:27 ABG O2 Saturation 90 % (95-98) L 06/22/18 05:27 Sodium 130 mEq/L (136-145) L 06/22/18 06:15 BUN 25 mg/dL (6-20) H 06/22/18 06:15 Creatinine 1.91 mg/dL (0.70-1.30) H 06/22/18 06:15 Est GFR ( Amer) 45 (> 60) L 06/22/18 06:15 Est GFR (Non-Af Amer) 37 (> 60) L 06/22/18 06:15 Glucose 148 mg/dL (70-105) H 06/22/18 06:15 POC Glucose 127 mg/dL (70-99) H 06/22/18 07:01 Calculated Osmolality 277 (280-300) L 06/22/18 06:15 Calcium 6.9 mg/dL (8.6-10.3) L 06/22/18 06:15 Venous Ioniz Calcium 0.87 mmol/L (1.15-1.35) L 06/21/18 03:14 Total Bilirubin 1.1 mg/dL (0.3-1.0) H 06/22/18 03:45 Direct Bilirubin 0.7 mg/dL (0.0-0.2) H 06/21/18 03:00 Troponin I 0.92 ng/mL (< 0.04) H* 06/17/18 22:33 Serum Total Protein 5.6 g/dL (6.4-8.9) L 06/22/18 03:45 Albumin 2.7 g/dL (3.5-5.7) L 06/22/18 06:15 Albumin/Globulin Ratio 0.9 (1.1-2.2) L 06/22/18 03:45 Procalcitonin 107.11 ng/mL (<=0.07) H 06/17/18 16:40 Vancomycin Trough 18 mcg/mL (5-10) H 06/19/18 08:20 Urine Opiates Screen Positive ng/mL (Yiozyc=410) H 06/18/18 10:37 U Benzodiazepines Scrn Positive ng/mL (Ifhhgt=162) H 06/18/18 10:37 - Microbiology Findings Microbiology Findings: Microbiology, Last 48 Hours 06/18/18 20:45 Sputum Culture - Preliminary Sputum 06/20/18 11:30 Legionella Antigen - Final Urine,[place] Streptococcus pneumoniae Antigen (M - Final - Clinical Findings Intake & Output: Intake & Output 06/21/18 06/22/18 06/22/18 23:59 07:59 15:59 Intake Total 1215.9 / 1215.9 26301.3 / 52321.3 Output Total 1050 / 1050 1001 / 1001 268 / 268 Balance 165.9 / 165.9 69959.3 / 81446.3 -268 / -268 Weight 136.9 kg - VTE Documentation of Mechanical Device: Intermittent pneumatic compression device Consult Discharge Plan - Plan Referrals: Sheryl Stahl CNP [Primary Care Provider] - <Ludin Barrett - Last Filed: 06/22/18 22:08> Date of Encounter: 06/22/18 Assessment and Plan (1) Acute respiratory failure with hypoxemia Current Visit: Yes Status: Acute (2) Septic shock Current Visit: Yes Status: Acute (3) Systolic heart failure Current Visit: Yes Status: Acute Qualifiers: Heart failure chronicity: unspecified Qualified Code(s): I50.20 - Unspecified systolic (congestive) heart failure (4) LUCILA (acute kidney injury) Current Visit: Yes Status: Acute (5) DVT prophylaxis Current Visit: Yes Status: Acute (6) Type 2 diabetes mellitus Current Visit: Yes Status: Chronic Qualifiers: Diabetes mellitus termite technician insulin use: with skilled nursing use Diabetes mellitus complication status: with unspecified complications Qualified Code(s) : E11.8 - Type 2 diabetes mellitus with unspecified complications; Z79.4 - terminal gauger (current) use of insulin (7) COPD (chronic obstructive pulmonary disease) Current Visit: No Status: Chronic Qualifiers: COPD type: emphysema Emphysema type: unspecified Qualified Code(s): J43.9 - Emphysema, unspecified (8) Thrombocytopenia Current Visit: Yes Status: Acute Objective PUL Vital signs: Last Vital Signs Temp 96.9 F L 06/22/18 21:00 Pulse 71 06/22/18 21:00 Resp 24 06/22/18 21:38 BP 99/65 06/22/18 21:00 Pulse Ox 95 06/22/18 21:38 Ventilator Settings Ventilator Settings: Ventilator Settings, Last 8 Hours Ventilator Tidal Volume 400 Setting Ventilator Tidal Volume 400 Setting Ventilator Tidal Volume 400 Setting Ventilator Tidal Volume 400 Setting Ventilator Tidal Volume 400 Setting Ventilator Tidal Volume 400 Setting Ventilator Tidal Volume 400 Setting Ventilator Tidal Volume 400 Setting Ventilator Tidal Volume 400 Setting Ventilator Tidal Volume 400 Setting Ventilator Tidal Volume 400 Setting Ventilator Tidal Volume 400 Setting Ventilator Respiratory Rate 24 Setting Ventilator Respiratory Rate 24 Setting Ventilator Respiratory Rate 24 Setting Ventilator Respiratory Rate 24 Setting Ventilator Respiratory Rate 24 Setting Ventilator Respiratory Rate 24 Setting Ventilator Respiratory Rate 24 Setting Ventilator Respiratory Rate 24 Setting Ventilator Respiratory Rate 24 Setting Ventilator Respiratory Rate 24 Setting Ventilator Respiratory Rate 24 Setting Ventilator Respiratory Rate 24 Setting Actual Respiratory Rate 24 Actual Respiratory Rate 24 Actual Respiratory Rate 24 Actual Respiratory Rate 24 Actual Respiratory Rate 24 Actual Respiratory Rate 24 Actual Respiratory Rate 24 Actual Respiratory Rate 24 Actual Respiratory Rate 24 Actual Respiratory Rate 24 Actual Respiratory Rate 24 Actual Respiratory Rate 24 Positive End Expiratory 10 Pressure Positive End Expiratory 10 Pressure Positive End Expiratory 10 Pressure Positive End Expiratory 10 Pressure Positive End Expiratory 10 Pressure Positive End Expiratory 10 Pressure Positive End Expiratory 10 Pressure Positive End Expiratory 10 Pressure Positive End Expiratory 10 Pressure Positive End Expiratory 10 Pressure Positive End Expiratory 10 Pressure Positive End Expiratory 10 Pressure Peak Inspiratory Airway 39 Pressure Peak Inspiratory Airway 39 Pressure Peak Inspiratory Airway 39 Pressure Peak Inspiratory Airway 37 Pressure Peak Inspiratory Airway 40 Pressure Peak Inspiratory Airway 40 Pressure Peak Inspiratory Airway 40 Pressure Peak Inspiratory Airway 40 Pressure Peak Inspiratory Airway 39 Pressure Peak Inspiratory Airway 40 Pressure Peak Inspiratory Airway 36 Pressure Peak Inspiratory Airway 35 Pressure Results - Laboratory Findings CBC and BMP: 06/22/18 03:45 06/22/18 18:18 ABG ABG pH 7.27 pH Units (7.32-7.45) L 06/22/18 05:27 ABG pCO2 57 mmHg (35-45) H 06/22/18 05:27 ABG pO2 67 mmHg (85-104) L 06/22/18 05:27 ABG O2 Saturation 90 % (95-98) L 06/22/18 05:27 PT/INR, D-dimer PT 16.7 Seconds (9.4-12.1) H 06/22/18 03:45 D-Dimer 3465 ng/mLFEU (0-500) H 06/18/18 08:08 Abnormal lab findings: Abnormal lab results WBC 24.7 K/mcL (4.3-11.1) H 06/22/18 03:45 RBC 3.38 M/mcL (4.19-5.50) L 06/22/18 03:45 Hgb 10.6 g/dL (12.9-16.9) L 06/22/18 03:45 Hct 32.7 % (37.5-50.1) L 06/22/18 03:45 RDW 15.9 % (11.5-14.5) H 06/22/18 03:45 Plt Count 82 K/mcL (140-400) L 06/22/18 03:45 MPV 13.2 fL (9.4-12.4) H 06/22/18 03:45 Immature Gran % 6.1 % (0-4) H 06/22/18 03:45 Band Neutrophils % 8.0 % (0-4) H 06/18/18 03:05 Neutrophils # 20.1 K/mcL (1.6-8.9) H 06/22/18 03:45 Nucleated RBCs/100 WBC 0.1 /100 WBC (0) H 06/22/18 03:45 Toxic Granulation Present (Not Present) A 06/18/18 03:05 Toxic Vacuolation Present (Not Present) A 06/22/18 03:45 Platelet Estimate Decreased (Normal) L 06/22/18 03:45 Immature Plt Fraction 27.2 % (1.1-6.1) H 06/22/18 03:45 PT 16.7 Seconds (9.4-12.1) H 06/22/18 03:45 APTT 80.0 Seconds (26.0-36.0) H 06/22/18 19:28 Fibrinogen 578 mg/dL (169-393) H 06/18/18 08:08 D-Dimer 3465 ng/mLFEU (0-500) H 06/18/18 08:08 ABG pH 7.27 pH Units (7.32-7.45) L 06/22/18 05:27 ABG pCO2 57 mmHg (35-45) H 06/22/18 05:27 ABG pO2 67 mmHg (85-104) L 06/22/18 05:27 ABG Total CO2 28 mEq/L (20-26) H 06/22/18 05:27 ABG O2 Saturation 90 % (95-98) L 06/22/18 05:27 Sodium 131 mEq/L (136-145) L 06/22/18 18:18 BUN 24 mg/dL (6-20) H 06/22/18 18:18 Creatinine 1.73 mg/dL (0.70-1.30) H 06/22/18 18:18 Est GFR ( Amer) 50 (> 60) L 06/22/18 18:18 Est GFR (Non-Af Amer) 42 (> 60) L 06/22/18 18:18 Glucose 152 mg/dL (70-105) H 06/22/18 18:18 POC Glucose 144 mg/dL (70-99) H 06/22/18 21:25 Calculated Osmolality 279 (280-300) L 06/22/18 18:18 Calcium 7.2 mg/dL (8.6-10.3) L 06/22/18 18:18 Venous Ioniz Calcium 0.87 mmol/L (1.15-1.35) L 06/21/18 03:14 Direct Bilirubin 0.5 mg/dL (0.0-0.2) H 06/22/18 11:39 Troponin I 0.92 ng/mL (< 0.04) H* 06/17/18 22:33 Serum Total Protein 5.6 g/dL (6.4-8.9) L 06/22/18 11:39 Albumin 2.8 g/dL (3.5-5.7) L 06/22/18 18:18 Albumin/Globulin Ratio 0.9 (1.1-2.2) L 06/22/18 11:39 Procalcitonin 107.11 ng/mL (<=0.07) H 06/17/18 16:40 Vancomycin Trough 18 mcg/mL (5-10) H 06/19/18 08:20 Urine Opiates Screen Positive ng/mL (Xhxhys=141) H 06/18/18 10:37 U Benzodiazepines Scrn Positive ng/mL (Mclutf=581) H 06/18/18 10:37 - Microbiology Findings Microbiology Findings: Microbiology, Last 48 Hours 06/18/18 20:45 Sputum Culture - Final Sputum - Clinical Findings Intake & Output: Intake & Output 06/22/18 06/22/18 06/22/18 07:59 15:59 23:59 Intake Total 21222.3 / 97161.3 873.8 / 873.8 717.0 / 717.0 Output Total 1001 / 1001 1641 / 1641 49289 / 75921 Balance 75983.3 / 17764.3 -767.2 / -767.2 -26072.0 / -71227.0 Weight 136.9 kg 136.9 kg - Attending Attestation - Attending Attestation I saw and evaluated this patient and my medical decision-making was reviewed with the Resident Physician. I agree with the documented findings, disposition and treatment plan as described except to the extent set forth below. We independently had [id number] contact with the patient I spent 35 minutes of Critical Care time with this patient. It involved decision making of high complexity to assess, manipulate, and support vital organ system failure and/or to prevent further life threatening deterioration of the patient's condition. The time involved in the performance of separately reportable procedures was not counted toward critical care time. Patient seen and examined at bedside Labs, radiology, chart personally reviewed. Management was reviewed during multidisciplinary critical care rounds. 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 / Pulm: Patient has severe VQ mismatch with some sun physiology most likely secondary to valvular prosthesis pneumonia versus pulmonary edema. He was requiring high FiO2 and high PEEP therapy wanted to prone this patient but patient became severely hemodynamically unstable which is a contraindication for pronating so we held off pronating the patient . I will volume strategy the Plateau pressure was acceptable patient currently with acceptable oxygenation and ventilation at a reduced the PEEP therapy because patient was severely hypotensive.. Since patient is hypertensive will tolerate higher FiO2 low PEEP strategy. 06/18 To continue with low tidal volume strategy patient with acceptable oxygenation and ventilation 06/19 adjusted tidal volume to keep the plateau pressure less than 30 acceptable oxygenation and ventilation 06/20 Adjusted the minute ventilation , acceptable oxygenation and ventilation . 06/21 adjusted minute ventilation and plateau pressure 06/22 Adjusted tidal volume -low tidal volume ventilation accetable oxygenation and ventilation the main issue of ventilation and oxygenation Cards: Patient has was likely subendocardial ischemia type II MT with global systolic dysfunction with an EF of 20% most likely was global systolic dysfunction is most likely due to sepsis induced no regional wall motion abnormality will give continuing trending troponins. Patient is in refractory severe septic shock with stress dose steroids.. He is on 3 different multiple vasopressors insulin (he had a Dobutrex because of this low EF as phenylephrine will reduce the cardiac output due to it's baroreceptor reflex to continue levophed and vasopressin. 06/18 Patient still in septic shock to continue Vasopressor to liberate vasopressor as tolerated . 06/19 Patient is off Vasopression , to liberate dobutamine next and then Levophed . 06/20 Patient is slowly liberating from the vasopressors 06/21 Patient is off dobutamne to continue other vasopressors 06/22 Patient still on levophed and dobutamine FEN-GI: Started on trophic feed , abdomen slightly distended , Intrabdominal pressure is 18 Renal: Patient has decreased urine output most likely he will develop acute kidney injury secondary to sepsis induced ATN . Patient is on CVVH ID : culture done patient on broad-spectrum antibiotics most likely source for septic shock as pneumonia cannot perceive managing chest and abdomen because patient has hemodynamically unstable. When he is stable we will do CT Chest and Abdomen 06/18 Patient septic shock not improving will add antifungal 06/19 Blood culture growing akro in blood patient was started on antifungal yesterday to continue micafungin and broad spectrum antibiotics will get Ct chest abdomen and pelvis . 06/20 Patient has candidemia .ID on consult 06/21 Patient has candidemia to follow ID recs 06/22 To continue current regimen of antimicrobials .ID following. Heme/Onc: suspicion for HIT if the filter clotting Nephro recommended Argatroban Endo: Glucose Monitored Integ/MSK: Skin Care per routine ICU Nursing Protocol to prevent ulcers. Lines: All lines examined without evidence of infection : Dispo: Critically ill CODE: Full Code Family was fully updated .
--- NOTE | 2018-06-22 09:44 | Nephrology Progress Note ---
Date of Encounter: 06/22/18 Time of Encounter: 09:44 - Assessment and Plan (1) LUCILA (acute kidney injury) Current Visit: Yes Status: Acute Patient with multifactorial acute kidney injury. He is now dialysis dependent. He is on continuous renal replacement therapy. We will attempt gentle UF as tolerated. Renal dose medications and avoid nephrotoxins if possible. Patient needs anticoagulation, but unable to use citrate secondary to liver dysfunction and heparin discontinued secondary to thrombocytopenia. Consider argatroban if ok with primary team. (2) Acute respiratory failure with hypoxemia Current Visit: Yes Status: Acute He is currently intubated. Per critical care team. (3) Hypocalcemia Current Visit: Yes Status: Acute RePlace as needed. (4) Septic shock Current Visit: Yes Status: Acute Continue pressors as needed. Patient with multi-organ failure. with unclear source (5) Type 2 diabetes mellitus Current Visit: Yes Status: Chronic Qualifiers: Diabetes mellitus fpc insulin use: with fpc use Diabetes mellitus complication status: with unspecified complications Qualified Code(s) : E11.8 - Type 2 diabetes mellitus with unspecified complications; Z79.4 - senior living (current) use of insulin Subjective Principal diagnosis: septic shock Interval history: Patient seen on CRRT. He is intubated and sedated ROS is unobtainable. Objective - Vital Signs Vital signs: Vital Signs Temp Pulse Resp BP Pulse Ox 06/22/18 09:00 97.5 F L 70 24 104/55 95 06/22/18 08:16 26 89/64 93 06/22/18 08:00 97.5 F L 73 24 91/61 95 06/22/18 07:18 73 06/22/18 07:00 75 26 89/64 93 06/22/18 06:00 97.5 F L 76 26 88/65 95 06/22/18 05:00 81 26 117/87 90 06/22/18 04:00 77 26 93/62 93 06/22/18 03:00 97.9 F 85 26 96/63 92 06/22/18 02:00 97.1 F L 73 26 91/76 95 06/22/18 01:08 26 93/65 96 06/22/18 01:00 75 26 93/65 96 06/22/18 00:02 26 92/61 95 06/22/18 00:00 96.6 F L 74 26 92/61 96 08/25/18 23:00 77 26 94/68 96 06/21/18 22:16 26 76/45 94 06/21/18 22:00 80 26 89/60 94 06/21/18 21:00 80 26 96/59 95 06/21/18 20:14 26 92/74 92 06/21/18 20:00 97.1 F L 83 27 92/74 92 06/21/18 19:00 79 26 99/61 94 06/21/18 18:09 79 26 89/48 93 06/21/18 17:02 27 95/41 96 06/21/18 17:00 76 27 95/41 96 06/21/18 16:01 97.6 F 77 27 89/59 96 06/21/18 15:50 26 93/58 95 06/21/18 15:00 77 26 93/67 75 06/21/18 14:21 77 28 94/70 93 06/21/18 13:17 27 83/61 94 06/21/18 13:00 76 27 88/66 71 06/21/18 12:00 75 26 81/65 96 06/21/18 11:31 26 90/59 96 06/21/18 11:00 97.6 F 79 26 86/62 94 06/21/18 10:00 93 30 92/58 88 Intake and Output 06/21/18 06/22/18 06/22/18 23:59 07:59 15:59 Intake Total 1215.9 / 1215.9 48509.3 / 61923.3 99.0 / 99.0 Output Total 1050 / 1050 1001 / 1001 530 / 530 Balance 165.9 / 165.9 37281.3 / 69413.3 -431.0 / -431.0 Intake: IV Fluids 842.9 / 842.9 15216.3 / 78488.3 99.0 / 99.0 PrismaSATE BGK 4/2.5 5,000 ML @ 0 / 0 29593 / 03089 0 / 0 2000 mls/hr CRRT CONT [facility] Rx#: [id number] Vasostrict 40 UNIT In Dextrose 141.4 / 141.4 46.0 / 46.0 12.9 / 12.9 5% 100 ML @ 0.03 UNIT/MIN 4.59 mls/hr IV .[id number] [facility] Rx#: [id number] FentaNYL (PF) 2,500 MCG In 41.6 / 41.6 55.0 / 55.0 Empty Bag 1 Each @ 50 MCG/HR 1 mls/hr IVC CONT [facility] Rx#: [id number] HumuLIN R 250 UNIT In 0.9 % 16.3 / 16.3 5.7 / 5.7 Sodium Chloride 250 ML @ Per Protocol IVC CONT [facility] Rx#: [id number] Versed 50 MG In 0.9 % Sodium 154.5 / 154.5 196.4 / 196.4 55.3 / 55.3 Chloride 90 ML @ 2 MG/HR 4 mls/ hr IVC CONT [facility] Rx#:[id number] Levophed 8 MG In Dextrose 5% 371.7 / 371.7 370.0 / 370.0 250 ML @ 30 MCG/MIN 58.05 mls/ hr IVC CONT [facility] Rx#:[id number] Zosyn 3.375 GM In 0.9 % Sodium 117.4 / 117.4 100.2 / 100.2 30.8 / 30.8 Chloride (Mini-Bag +) 100 ML @ 25 mls/hr IVPB Q8H [facility] Rx#: [id number] Vancocin 750 MG In 0.9 % Sodium 250 / 250 Chloride 250 ML @ 250 mls/hr IVPB ONCE ONE Rx#:[id number] Tube Feeding 99 / 99 Other 359 / 359 886 / 886 Free Water Intake Amount 0 / 0 Output: Urine 33 / 33 25 / 25 Kimmie 993 / 993 937 / 937 505 / 505 Catheter 64 / 64 Other: Weight 136.9 kg 136.9 kg Blood Glucose* 113 127 Patient Weight 06/22/18 23:59 Weight 136.9 kg - General Appearance General appearance: Present: well-developed, well-nourished, obese, intubated Neck: Present: supple Respiratory: Present: course breath sounds Cardiology: Present: regular rate Gastrointestinal: Present: obese Integumentary: Present: warm and dry - Lab 06/22/18 03:45 06/22/18 18:18 Most recent lab results ABG pH 7.27 pH Units (7.32-7.45) L 08/26/18 05:27 ABG pCO2 57 mmHg (35-45) H 06/22/18 05:27 ABG pO2 67 mmHg (85-104) L 06/22/18 05:27 ABG HCO3 26 mEq/L (21-27) 06/22/18 05:27 ABG O2 Saturation 90 % (95-98) L 06/22/18 05:27 Calcium 6.9 mg/dL (8.6-10.3) L 06/22/18 06:15 Phosphorus 3.9 mg/dL (2.7-4.5) 06/22/18 06:15 Magnesium 2.3 mg/dL (1.6-2.6) 06/21/18 03:00 Urine Sodium 128.8 mEq/L 06/17/18 18:15 - VTE Documentation of Mechanical Device: Intermittent pneumatic compression device Consult Discharge Plan - Plan Referrals: Sheryl Stahl, [employer] [Primary Care Provider] -
[2018-06-22] MEDS: FentaNYL (PF) 2,500 MCG in EMPTY BAG 1 EACH IVC SCH ×2 (10:40→22:19)
[2018-06-22 12:23] LABS: Albumin 2.6 g/dL (3.5-5.7); Albumin/Globulin Ratio 0.9 (1.1-2.2); Bilirubin,Direct 0.5 mg/dL (0.0-0.2); Bilirubin,Indirect 0.5 mg/dL (0.0-1.2); Total Protein 5.6 g/dL (6.4-8.9)
[2018-06-22] MEDS: Argatroban 250 MG in D5% in Water 250 ML IVC SCH (13:02)
[2018-06-22] MEDS: Vasopressin 40 UNIT in D5% in Water 100 ML IV SCH (15:25)
[2018-06-22 18:46] LABS: Albumin 2.8 g/dL (3.5-5.7); Calcium 7.2 mg/dL (8.6-10.3); Phosphorous 3.3 mg/dL (2.7-4.5); Potassium 4.4 mEq/L (3.5-5.1)
[2018-06-23] MEDS: WATER IVC SCH (00:36)
[2018-06-23] MEDS: D5 IVC SCH (00:36)
[2018-06-23] MEDS: DOBUTAMINE HCL IVC SCH (00:36)
[2018-06-23] MEDS: Piperacillin/Tazobactam 3.375 GM in 0.9 % Sodium Chloride Mini Bag 100 ML IVPB SCH ×3 (03:05→19:49)
[2018-06-23] MEDS: PrismaSATE BGK 4/2.5 5,000 ML CRRT SCH ×7 (03:06→19:43)
[2018-06-23] MEDS: Artificial Tears SOLN 15 ML BOTTLE BOTH EYES SCH ×5 (03:10→19:43)
[2018-06-23 03:31] LABS: Mean Platelet Volume 11.6 fL (9.4-12.4); Nucleated Red Blood Cells 0.1 /100 WBC (0)
[2018-06-23 03:32] LABS: Hematocrit 30.5 % (37.5-50.1); Hemoglobin 9.8 g/dL (12.9-16.9); Mean Corpuscular HGB Conc 32.1 g/dL (31.6-35.5); Mean Corpuscular Hemoglobin 30.7 pg (28.0-33.3); Mean Corpuscular Volume 95.6 fL (83.0-100.0); Platelet Count 133 K/mcL (140-400); Red Blood Count 3.19 M/mcL (4.19-5.50); Red Cell Distribution Width 16.3 % (11.5-14.5)
[2018-06-23 03:50] LABS: Lymphocytes # 4.9 K/mcL (0.6-4.6); Monocytes # 5.5 K/mcL (0.0-1.3); Neutrophils # 16.9 K/mcL (1.6-8.9); Platelet Estimate Normal (Normal)
[2018-06-23 03:51] LABS: Large Platelets Present (Not Present)
[2018-06-23 03:53] LABS: Albumin 2.7 g/dL (3.5-5.7); Albumin/Globulin Ratio 0.8 (1.1-2.2); Bilirubin,Direct 0.4 mg/dL (0.0-0.2); Bilirubin,Total 0.9 mg/dL (0.3-1.0); Calcium 7.2 mg/dL (8.6-10.3); Globulin 3.2 g/dL (2.4-3.5); Potassium 4.3 mEq/L (3.5-5.1); Total Protein 5.9 g/dL (6.4-8.9)
[2018-06-23] MEDS: Norepinephrine 8 MG in D5% in Water 250 ML IVC SCH ×2 (04:29→17:23)
[2018-06-23] MEDS: FentaNYL (PF) 2,500 MCG in EMPTY BAG 1 EACH IVC SCH ×2 (04:34→17:24)
[2018-06-23 05:23] LABS: ABG Base Excess 0 mEq/L (-2 to 3); ABG HCO3 27 mEq/L (21-27); ABG Oxygen Saturation 91 % (95-98); ABG PCO2 55 mmHg (35-45); ABG PH 7.31 pH Units (7.32-7.45); ABG PO2 68 mmHg (85-104); ABG TCO2 29 mEq/L (20-26); Blood Gas Modality ASSIST CONTROL; Blood Gas PEEP 10 cm H2O; Blood Gas Respiration Rate 24; Blood Gas VT 400 cc
[2018-06-23] MEDS: Insulin Human Regular 100 UNIT in 0.9 % Sodium Chloride 100 ML IVC SCH (06:05)
--- NOTE | 2018-06-23 08:13 | Pulmonology Progress Note ---
<TejarthurKaroang M - Last Filed: 06/23/18 10:27> Date of Encounter: 06/23/18 Objective PUL Vital signs: Last Vital Signs Temp 96.2 F L 06/23/18 07:30 Pulse 67 06/23/18 10:00 Resp 24 06/23/18 10:00 BP 87/56 06/23/18 10:00 Pulse Ox 93 06/23/18 10:00 Ventilator Settings Ventilator Settings: Ventilator Settings, Last 8 Hours Ventilator Tidal Volume 400 Setting Ventilator Tidal Volume 400 Setting Ventilator Tidal Volume 400 Setting Ventilator Tidal Volume 400 Setting Ventilator Tidal Volume 400 Setting Ventilator Tidal Volume 400 Setting Ventilator Tidal Volume 400 Setting Ventilator Tidal Volume 400 Setting Ventilator Tidal Volume 400 Setting Ventilator Tidal Volume 400 Setting Ventilator Tidal Volume 400 Setting Ventilator Tidal Volume 400 Setting Ventilator Respiratory Rate 24 Setting Ventilator Respiratory Rate 24 Setting Ventilator Respiratory Rate 24 Setting Ventilator Respiratory Rate 24 Setting Ventilator Respiratory Rate 24 Setting Ventilator Respiratory Rate 24 Setting Ventilator Respiratory Rate 24 Setting Ventilator Respiratory Rate 24 Setting Ventilator Respiratory Rate 24 Setting Ventilator Respiratory Rate 24 Setting Ventilator Respiratory Rate 24 Setting Ventilator Respiratory Rate 24 Setting Actual Respiratory Rate 24 Actual Respiratory Rate 24 Actual Respiratory Rate 24 Actual Respiratory Rate 24 Actual Respiratory Rate 24 Actual Respiratory Rate 24 Actual Respiratory Rate 24 Actual Respiratory Rate 24 Actual Respiratory Rate 24 Actual Respiratory Rate 24 Actual Respiratory Rate 24 Positive End Expiratory 10 Pressure Positive End Expiratory 10 Pressure Positive End Expiratory 10 Pressure Positive End Expiratory 10 Pressure Positive End Expiratory 10 Pressure Positive End Expiratory 10 Pressure Positive End Expiratory 11 Pressure Positive End Expiratory 10 Pressure Positive End Expiratory 11 Pressure Positive End Expiratory 10 Pressure Positive End Expiratory 11 Pressure Positive End Expiratory 11 Pressure Peak Inspiratory Airway 43 Pressure Peak Inspiratory Airway 45 Pressure Peak Inspiratory Airway 45 Pressure Peak Inspiratory Airway 40 Pressure Peak Inspiratory Airway 41 Pressure Peak Inspiratory Airway 41 Pressure Peak Inspiratory Airway 41 Pressure Peak Inspiratory Airway 41 Pressure Peak Inspiratory Airway 41 Pressure Peak Inspiratory Airway 42 Pressure Peak Inspiratory Airway 42 Pressure Results - Laboratory Findings CBC and BMP: 06/23/18 03:15 06/23/18 03:15 ABG ABG pH 7.31 pH Units (7.32-7.45) L 06/23/18 05:17 ABG pCO2 55 mmHg (35-45) H 06/23/18 05:17 ABG pO2 68 mmHg (85-104) L 06/23/18 05:17 ABG O2 Saturation 91 % (95-98) L 06/23/18 05:17 PT/INR, D-dimer PT 16.7 Seconds (9.4-12.1) H 06/22/18 03:45 D-Dimer 3465 ng/mLFEU (0-500) H 06/18/18 08:08 Abnormal lab findings: Abnormal lab results WBC 27.3 K/mcL (4.3-11.1) H 06/23/18 03:15 RBC 3.19 M/mcL (4.19-5.50) L 06/23/18 03:15 Hgb 9.8 g/dL (12.9-16.9) L 06/23/18 03:15 Hct 30.5 % (37.5-50.1) L 06/23/18 03:15 RDW 16.3 % (11.5-14.5) H 06/23/18 03:15 Plt Count 133 K/mcL (140-400) L D 06/23/18 03:15 Immature Gran % 6.1 % (0-4) H 06/22/18 03:45 Band Neutrophils % 10.0 % (0-4) H 06/23/18 03:15 Neutrophils # 16.9 K/mcL (1.6-8.9) H 06/23/18 03:15 Lymphocytes # 4.9 K/mcL (0.6-4.6) H 06/23/18 03:15 Monocytes # 5.5 K/mcL (0.0-1.3) H 06/23/18 03:15 Nucleated RBCs/100 WBC 0.1 /100 WBC (0) H 06/23/18 03:15 Toxic Granulation Present (Not Present) A 06/18/18 03:05 Toxic Vacuolation Present (Not Present) A 06/22/18 03:45 Large Platelets Present (Not Present) A 06/23/18 03:15 Immature Plt Fraction 27.2 % (1.1-6.1) H 06/22/18 03:45 PT 16.7 Seconds (9.4-12.1) H 06/22/18 03:45 APTT 62.8 Seconds (26.0-36.0) H 06/23/18 08:00 Fibrinogen 578 mg/dL (169-393) H 06/18/18 08:08 D-Dimer 3465 ng/mLFEU (0-500) H 06/18/18 08:08 ABG pH 7.31 pH Units (7.32-7.45) L 06/23/18 05:17 ABG pCO2 55 mmHg (35-45) H 06/23/18 05:17 ABG pO2 68 mmHg (85-104) L 06/23/18 05:17 ABG Total CO2 29 mEq/L (20-26) H 06/23/18 05:17 ABG O2 Saturation 91 % (95-98) L 06/23/18 05:17 Sodium 132 mEq/L (136-145) L 06/23/18 03:15 BUN 23 mg/dL (6-20) H 06/23/18 03:15 Creatinine 1.56 mg/dL (0.70-1.30) H 06/23/18 03:15 Est GFR ( Amer) 57 (> 60) L 06/23/18 03:15 Est GFR (Non-Af Amer) 47 (> 60) L 06/23/18 03:15 Glucose 148 mg/dL (70-105) H 06/23/18 03:15 POC Glucose 150 mg/dL (70-99) H 06/23/18 09:49 Calcium 7.2 mg/dL (8.6-10.3) L 06/23/18 03:15 Venous Ioniz Calcium 0.87 mmol/L (1.15-1.35) L 06/21/18 03:14 Direct Bilirubin 0.4 mg/dL (0.0-0.2) H 06/23/18 03:15 Troponin I 0.92 ng/mL (< 0.04) H* 06/17/18 22:33 Serum Total Protein 5.9 g/dL (6.4-8.9) L 06/23/18 03:15 Albumin 2.7 g/dL (3.5-5.7) L 06/23/18 03:15 Albumin/Globulin Ratio 0.8 (1.1-2.2) L 06/23/18 03:15 Procalcitonin 107.11 ng/mL (<=0.07) H 06/17/18 16:40 Vancomycin Trough 18 mcg/mL (5-10) H 06/19/18 08:20 Urine Opiates Screen Positive ng/mL (Oqukrg=284) H 06/18/18 10:37 U Benzodiazepines Scrn Positive ng/mL (Wlxren=927) H 06/18/18 10:37 - Microbiology Findings Microbiology Findings: Microbiology, Last 48 Hours 06/18/18 20:45 Sputum Culture - Preliminary Sputum - Clinical Findings Intake & Output: Intake & Output 06/22/18 06/23/18 06/23/18 23:59 07:59 15:59 Intake Total 835.0 / 835.0 885.0 / 885.0 324 / 324 Output Total 60139 / 94289 1382 / 1382 488 / 488 Balance -05554.0 / -04059.0 -497.0 / -497.0 -164 / -164 Consult Discharge Plan - Plan Referrals: Sheryl Stahl, [employer] SERVICER AND INSTALLER [Primary Care Provider] - - Attending Attestation I examined this patient and my medical decision-making was reviewed with the Resident Physician. I agree with the documented findings, disposition and treatment plan as described except to the extent set forth below. Patient seen and examined. Labs, radiology, chart personally reviewed. Agree with resident's history and physical, assessment, plan with following comments: MANAGER DEPARTMENT: Patient follows commands, Pulmonary: Acceptable oxygenation and ventilation. Vent setting changed and there is evidence of autoPEEP that could be affecting her hypotension. ET was advanced and TV has improved. Cardiovascular: Patient remain on pressure and will stop the vasopressin and if need will increase Levophed GI: Nutrition per dietary and GI prophylaxis per routine. Patient is tube feed and bowel regiem Heme: DVT prophylaxis per routine. Will most likely change Argatroban. ID: Continue antibiotics and plan to de-escalation. ID team follow up. I feel he doesn't need Vancomycin Renal; urine out put and renal funtion reviewed. Patient is on CRRT Endorcine: blood glucose is monitored Lines: all lines checked and no evidence of infections Skin: skin care to prevent pressure ulcers per nursing routine care Discussed with family I spent 32 min of Critical Care time with this patient. It involved decision making of high complexity to assess, manipulate, and support vital organ system failure and/or to prevent further life threatening deterioration of the patient' s condition. The time involved in the performance of separately reportable procedures was not counted toward critical care time. <Bonnie Cummins E - Last Filed: 06/23/18 13:18> Date of Encounter: 06/23/18 Time of Encounter: 08:08 Assessment and Plan (1) Septic shock Current Visit: Yes Status: Acute sepsis suspected secondary to karo fungemia. Continue microfungin therapy. 0.04 units/min vasopressin, norepinephrine rate 12. Will stop vassopressin, titrate norepinephrine as needed. MAP this morning 67, Continue zosyn and vancomycin (day 7). ID recommends continuing antibiotics for now. No growth on repeat cultures from 06/19/18. KUB shows no sign of perforation but diffuse anascara. (2) Acute respiratory failure with hypoxemia Current Visit: Yes Status: Acute On ventilator: PEEP 10. Tidal volume 400. FiO2: 55%, O2 sat stable in low 90's% range. ET tube was advanced 2cm due to location on Chest XR being approximately 6cm from sanjeev. pH is improving, 7.31 today. Continue to monitor and repeat ABGs if changes in respiratory status. (3) COPD (chronic obstructive pulmonary disease) Current Visit: Yes Status: Chronic Continue ventilator, adjust as tolerated. ET tube was advanced 2cm as XR chest showed ET tube at 6cm above sanjeev. Qualifiers: COPD type: emphysema Emphysema type: unspecified Qualified Code(s): J43.9 - Emphysema, unspecified (4) Systolic heart failure Current Visit: Yes Status: Acute MAP slightly lower today at 67. Continue to monitor and titrate pressors as he tolerates to keep MAP above 60. Qualifiers: Heart failure chronicity: unspecified Qualified Code(s): I50.20 - Unspecified systolic (congestive) heart failure (5) LUCILA (acute kidney injury) Current Visit: Yes Status: Acute improvement of creatinine, 1.56 today. Urine output increasing 107 yesterday. Nephrology following. (6) Hypocalcemia Current Visit: Yes Status: Acute Continue to monitor. Calcium today at 7.2 same as on 06/22/18. Replace if necessary (7) Thrombocytopenia Current Visit: Yes Status: Acute Improving, 133 today. RElated to shock and suspected HIT. Agatraban for HIT therapy was started 06/22/18. 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 Avoid heparin. Argatraban was added on 06/22/18. (9) Hypokalemia Current Visit: Yes Status: Resolved resolved, today potassium is 4.4, stable (10) Type 2 diabetes mellitus Current Visit: Yes Status: Chronic Glucose today is 148. Was started on high sliding scale of lispro on admission. IV insulin drip. Trickle feeds were started 06/22/18. Continue to monitor, continue IV insulin. Qualifiers: Diabetes mellitus usp insulin use: with usp use Diabetes mellitus complication status: with unspecified complications Qualified Code(s) : E11.8 - Type 2 diabetes mellitus with unspecified complications; Z79.4 - termite helper (current) use of insulin (11) DVT prophylaxis Current Visit: Yes Status: Acute suspected HIT, agatraban currently being used Subjective Principal diagnosis: septic shock Interval history: Mr. Mccarthy was seen at bedside this morning. He is sedated and intubated and on ventilator. pCO2 decreased from 57 yesterday to 55 today. Inspired O2 at 55%, tidal volume at 400. PEEP at 10. WBC count today increased from 24.7 yesterday to 27.3 today. HgB 9.8 decreased from 10.6 yesterday. Platelets increased from 82 yesterday to 133 today. Potassium 4.3 decreased from 4.4 yesterday. BUN continues to decrease, today is 23. Creatinine continues to decrease, today is 1.56. Urine output continues to increase, 107 yesterday compared to 94 on . Currently on microfungin for karo albicals fungemia. Eyes examined with no erythema. Agatroban was started due to suspected HIT. Objective PUL Vital signs: Last Vital Signs Temp 96.2 F L 06/23/18 07:30 Pulse 80 06/23/18 07:30 Resp 24 06/23/18 07:54 BP 92/63 06/23/18 07:30 Pulse Ox 92 06/23/18 07:54 General appearance: other (sedated adn inrubated) Eyes: nonicteric ENT: oropharynx moist Auscultation: bilateral: diminished breath sounds (lower lobes), wheezes (mild inspiratory wheeze) Cardiovascular: regular rate and rhythm Gastrointestinal: absent bowel sounds (distended) Extremities: no cyanosis, no edema other (intubated and sedated, pupils fixed/pinpoint) Ventilator Settings Ventilator Settings: Ventilator Settings, Last 8 Hours Ventilator Tidal Volume 400 Setting Ventilator Tidal Volume 400 Setting Ventilator Tidal Volume 400 Setting Ventilator Tidal Volume 400 Setting Ventilator Tidal Volume 400 Setting Ventilator Tidal Volume 400 Setting Ventilator Tidal Volume 400 Setting Ventilator Tidal Volume 400 Setting Ventilator Tidal Volume 400 Setting Ventilator Tidal Volume 400 Setting Ventilator Tidal Volume 400 Setting Ventilator Respiratory Rate 24 Setting Ventilator Respiratory Rate 24 Setting Ventilator Respiratory Rate 24 Setting Ventilator Respiratory Rate 24 Setting Ventilator Respiratory Rate 24 Setting Ventilator Respiratory Rate 24 Setting Ventilator Respiratory Rate 24 Setting Ventilator Respiratory Rate 24 Setting Ventilator Respiratory Rate 24 Setting Ventilator Respiratory Rate 24 Setting Ventilator Respiratory Rate 24 Setting Actual Respiratory Rate 24 Actual Respiratory Rate 24 Actual Respiratory Rate 24 Actual Respiratory Rate 24 Actual Respiratory Rate 24 Actual Respiratory Rate 24 Actual Respiratory Rate 24 Actual Respiratory Rate 24 Actual Respiratory Rate 24 Actual Respiratory Rate 24 Positive End Expiratory 10 Pressure Positive End Expiratory 10 Pressure Positive End Expiratory 11 Pressure Positive End Expiratory 10 Pressure Positive End Expiratory 11 Pressure Positive End Expiratory 10 Pressure Positive End Expiratory 11 Pressure Positive End Expiratory 11 Pressure Positive End Expiratory 10 Pressure Positive End Expiratory 11 Pressure Positive End Expiratory 11 Pressure Peak Inspiratory Airway 41 Pressure Peak Inspiratory Airway 41 Pressure Peak Inspiratory Airway 41 Pressure Peak Inspiratory Airway 41 Pressure Peak Inspiratory Airway 41 Pressure Peak Inspiratory Airway 42 Pressure Peak Inspiratory Airway 42 Pressure Peak Inspiratory Airway 43 Pressure Peak Inspiratory Airway 41 Pressure Peak Inspiratory Airway 42 Pressure Results - Laboratory Findings CBC and BMP: 06/23/18 03:15 06/23/18 10:00 ABG ABG pH 7.31 pH Units (7.32-7.45) L 06/23/18 05:17 ABG pCO2 55 mmHg (35-45) H 06/23/18 05:17 ABG pO2 68 mmHg (85-104) L 06/23/18 05:17 ABG O2 Saturation 91 % (95-98) L 06/23/18 05:17 PT/INR, D-dimer PT 16.7 Seconds (9.4-12.1) H 06/22/18 03:45 D-Dimer 3465 ng/mLFEU (0-500) H 06/18/18 08:08 Abnormal lab findings: Abnormal lab results WBC 27.3 K/mcL (4.3-11.1) H 06/23/18 03:15 RBC 3.19 M/mcL (4.19-5.50) L 06/23/18 03:15 Hgb 9.8 g/dL (12.9-16.9) L 06/23/18 03:15 Hct 30.5 % (37.5-50.1) L 06/23/18 03:15 RDW 16.3 % (11.5-14.5) H 06/23/18 03:15 Plt Count 133 K/mcL (140-400) L D 06/23/18 03:15 Immature Gran % 6.1 % (0-4) H 06/22/18 03:45 Band Neutrophils % 10.0 % (0-4) H 06/23/18 03:15 Neutrophils # 16.9 K/mcL (1.6-8.9) H 06/23/18 03:15 Lymphocytes # 4.9 K/mcL (0.6-4.6) H 06/23/18 03:15 Monocytes # 5.5 K/mcL (0.0-1.3) H 06/23/18 03:15 Nucleated RBCs/100 WBC 0.1 /100 WBC (0) H 06/23/18 03:15 Toxic Granulation Present (Not Present) A 06/18/18 03:05 Toxic Vacuolation Present (Not Present) A 06/22/18 03:45 Large Platelets Present (Not Present) A 06/23/18 03:15 Immature Plt Fraction 27.2 % (1.1-6.1) H 06/22/18 03:45 PT 16.7 Seconds (9.4-12.1) H 06/22/18 03:45 APTT 66.8 Seconds (26.0-36.0) H 06/23/18 03:15 Fibrinogen 578 mg/dL (169-393) H 06/18/18 08:08 D-Dimer 3465 ng/mLFEU (0-500) H 06/18/18 08:08 ABG pH 7.31 pH Units (7.32-7.45) L 06/23/18 05:17 ABG pCO2 55 mmHg (35-45) H 06/23/18 05:17 ABG pO2 68 mmHg (85-104) L 06/23/18 05:17 ABG Total CO2 29 mEq/L (20-26) H 06/23/18 05:17 ABG O2 Saturation 91 % (95-98) L 06/23/18 05:17 Sodium 132 mEq/L (136-145) L 06/23/18 03:15 BUN 23 mg/dL (6-20) H 06/23/18 03:15 Creatinine 1.56 mg/dL (0.70-1.30) H 06/23/18 03:15 Est GFR ( Amer) 57 (> 60) L 06/23/18 03:15 Est GFR (Non-Af Amer) 47 (> 60) L 06/23/18 03:15 Glucose 148 mg/dL (70-105) H 06/23/18 03:15 POC Glucose 132 mg/dL (70-99) H 06/23/18 06:41 Calcium 7.2 mg/dL (8.6-10.3) L 06/23/18 03:15 Venous Ioniz Calcium 0.87 mmol/L (1.15-1.35) L 06/21/18 03:14 Direct Bilirubin 0.4 mg/dL (0.0-0.2) H 06/23/18 03:15 Troponin I 0.92 ng/mL (< 0.04) H* 06/17/18 22:33 Serum Total Protein 5.9 g/dL (6.4-8.9) L 06/23/18 03:15 Albumin 2.7 g/dL (3.5-5.7) L 06/23/18 03:15 Albumin/Globulin Ratio 0.8 (1.1-2.2) L 06/23/18 03:15 Procalcitonin 107.11 ng/mL (<=0.07) H 06/17/18 16:40 Vancomycin Trough 18 mcg/mL (5-10) H 06/19/18 08:20 Urine Opiates Screen Positive ng/mL (Ertiaj=272) H 06/18/18 10:37 U Benzodiazepines Scrn Positive ng/mL (Weocel=379) H 06/18/18 10:37 - Microbiology Findings Microbiology Findings: Microbiology, Last 48 Hours 06/18/18 20:45 Sputum Culture - Final Sputum - Clinical Findings Intake & Output: Intake & Output 06/22/18 06/23/18 06/23/18 23:59 07:59 15:59 Intake Total 835.0 / 835.0 883.0 / 883.0 Output Total 10419 / 90258 1382 / 1382 Balance -77987.0 / -61416.0 -499.0 / -499.0 - VTE Documentation of Mechanical Device: Intermittent pneumatic compression device
[2018-06-23] MEDS: Chlorhexidine Rinse 15 ML MOUTHWASH MM SCH ×2 (08:30→20:14)
[2018-06-23] MEDS: Nystatin SUSP 5 ML UD.LIQ PO SCH ×4 (08:30→20:14)
[2018-06-23] MEDS: Micafungin 100 MG in 0.9 % Sodium Chloride Mini Bag 100 ML IVPB SCH (08:31)
[2018-06-23] MEDS: Pantoprazole 40 MG VIAL IVP SCH (08:31)
--- NOTE | 2018-06-23 09:05 | Nephrology Progress Note ---
Date of Encounter: 06/23/18 Time of Encounter: 09:50 - Assessment and Plan (1) LUCILA (acute kidney injury) Current Visit: Yes Status: Acute Acute kidney injury on Kimmie Patient's chemistries have remained stable and he appears to be doing well He has had some problems with filter clotting, and was placed on Argatroban as a result Continues to have some mild hypotension, however his pressors have decreased Volume Status so appears to be overloaded, but it is improving. UOP is still negligible We will change Kimmie mode to CCVHDF, Plan for Net + 50-100 fluid removal Hold Argatroban as we feel that the potential risks for systemic anticoagulation outweigh the potential benefit to filter clotting Avoid citrate secondary to liver dysfunction Renal dose medications (2) Acute respiratory failure with hypoxemia Current Visit: Yes Status: Acute Currently intubated, management per primary team We will continue to manage fluid fall with Kimmie Currently removing at net +50-100 (3) Septic shock Current Visit: Yes Status: Acute Septic shock with unknown source and multiple organ system dysfunction Patient's blood pressure continues to improve, pressor use to use to drop Management per primary team (4) Anemia Current Visit: Yes Status: Acute Acute blood loss anemia We will continue to monitor this, consider addition of iron supplementation Qualifiers: Anemia type: other cause Other causes of anemia: acute posthemorrhagic Qualified Code(s): D62 - Acute posthemorrhagic anemia Subjective Principal diagnosis: septic shock Interval history: The patient is resting in bed. He he is sedated and on the mechanical ventilation. His is at bedside and states no acute complaints this morning. She does mention that she is planning to have a conversation with her children who are interested in potentially transferring the patient to [place]. She is encouraged to discuss this with the primary team. Objective - Vital Signs Vital signs: Vital Signs Temp Pulse Resp BP Pulse Ox 06/23/18 08:00 76 24 97/60 93 06/23/18 07:54 24 92 06/23/18 07:30 96.2 F L 80 24 92/63 91 06/23/18 07:00 24 92 06/23/18 06:00 71 24 84/40 93 06/23/18 05:00 67 21 84/65 06/23/18 04:58 24 92 06/23/18 04:00 70 24 85/59 92 06/23/18 03:00 71 24 91/56 93 06/23/18 02:03 24 93 06/23/18 02:00 70 24 95/57 93 06/23/18 00:59 73 24 91/52 96 06/23/18 00:06 24 93 06/23/18 00:00 75 24 85/55 93 06/22/18 23:00 96.8 F L 84 24 99/60 92 06/22/18 22:00 72 24 89/64 96 06/22/18 21:59 72 24 89/64 96 06/22/18 21:38 24 95 06/22/18 21:00 96.9 F L 70 24 87/54 96 06/22/18 20:05 96.9 F L 70 24 87/54 96 06/22/18 19:38 24 97 06/22/18 19:00 76 24 82/51 95 06/22/18 18:56 71 24 82/51 95 06/22/18 18:24 24 110/71 95 06/22/18 18:19 77 24 110/71 95 06/22/18 17:00 72 24 97/63 96 06/22/18 16:16 24 96/76 94 06/22/18 16:00 97.0 F L 83 24 104/72 93 06/22/18 15:00 66 24 98/61 97 06/22/18 14:04 66 24 91/59 96 06/22/18 13:00 73 24 93/58 96 06/22/18 12:06 26 85/58 93 06/22/18 12:00 85 24 85/58 94 06/22/18 11:13 97.4 F L 73 24 79/47 95 06/22/18 11:00 97.4 F L 73 24 79/47 95 06/22/18 10:00 84 24 84/56 92 Intake and Output 06/22/18 06/23/18 06/23/18 23:59 07:59 15:59 Intake Total 835.0 / 835.0 883.0 / 883.0 35 / 35 Output Total 03033 / 18174 1382 / 1382 191 / 191 Balance -13281.0 / -04011.0 -499.0 / -499.0 -156 / -156 Intake: IV Fluids 775.0 / 775.0 763.0 / 763.0 PrismaSATE BGK 4/2.5 5,000 ML @ 0 / 0 0 / 0 2000 mls/hr CRRT [facility] Rx#: [id number] Vasostrict 40 UNIT In Dextrose 48.0 / 48.0 35.0 / 35.0 5% 100 ML @ 0.03 UNIT/MIN 4.59 mls/hr IV .[id number] NADIA Rx#: [id number] Argatroban 250 MG In Dextrose 5 111.2 / 111.2 12 / 12 % 250 ML @ 2 MCG/KG/MIN 16.59 mls/hr IVC [facility] Rx#: [id number] FentaNYL (PF) 2,500 MCG In 25.7 / 25.7 48.0 / 48.0 Empty Bag 1 Each @ 50 MCG/HR 1 mls/hr IVC [facility] Rx#: [id number] HumuLIN R 250 UNIT In 0.9 % 10.4 / 10.4 Sodium Chloride 250 ML @ Per Protocol IVC [facility] Rx#: [id number] Versed 50 MG In 0.9 % Sodium 192.0 / 192.0 138.0 / 138.0 Chloride 90 ML @ 2 MG/HR 4 mls/ hr IVC [facility] Rx#:[id number] Levophed 8 MG In Dextrose 5% 263.7 / 263.7 180.0 / 180.0 250 ML @ 30 MCG/MIN 58.05 mls/ hr IVC [facility] Rx#:[id number] Zosyn 3.375 GM In 0.9 % Sodium 124 / 124 100 / 100 Chloride (Mini-Bag +) 100 ML @ 25 mls/hr IVPB Q8H [facility] Rx#: [id number] Vancocin 1,000 MG In 0.9 % 250 / 250 Sodium Chloride 250 ML @ 166. 667 mls/hr IVPB ONCE ONE Rx#: [id number] Tube Feeding 60 / 60 120 / 120 35 / 35 Output: Urine 43 / 43 Kimmie 1445 / 1445 1294 / 1294 166 / 166 Other 99062 / 66282 Catheter 43 / 43 88 / 88 25 / 25 Other: Blood Glucose* 139 123 - General Appearance Exam: Gen: Vitals noted. No acute distress. Patient is sedated on ventilator HEENT: Normocephalic, atraumatic Neck: Supple. No adenopathy. Cardiac: RRR, no murmur, +S1/S2 Pulmonary: Wet crackles are heard bilaterally with some superimposed wheezing noted Abdomen: soft, nontender, no guarding Extremities: 1-2+ bilateral lower extremity edema, nontender calf, no cyanosis or clubbing Neuro: Patient is sedated on ventilator - Lab 06/23/18 03:15 06/23/18 10:00 Most recent lab results ABG pH 7.31 pH Units (7.32-7.45) L 06/23/18 05:17 ABG pCO2 55 mmHg (35-45) H 06/23/18 05:17 ABG pO2 68 mmHg (85-104) L 06/23/18 05:17 ABG HCO3 27 mEq/L (21-27) 06/23/18 05:17 ABG O2 Saturation 91 % (95-98) L 06/23/18 05:17 Calcium 7.2 mg/dL (8.6-10.3) L 06/23/18 03:15 Phosphorus 3.3 mg/dL (2.7-4.5) 06/22/18 18:18 Magnesium 2.3 mg/dL (1.6-2.6) 06/21/18 03:00 Urine Sodium 128.8 mEq/L 06/17/18 18:15 - VTE Documentation of Mechanical Device: Intermittent pneumatic compression device Consult Discharge Plan - Plan Referrals: Sheryl Stahl, HIGH [employer] STUD[employer] TEACHER [Primary Care Provider] -
[2018-06-23 09:40] LABS: Hepatitis B Surface Antigen Nonreactive (Nonreactive)
[2018-06-23] MEDS: Vasopressin 40 UNIT in D5% in Water 100 ML IV SCH (10:16)
[2018-06-23 10:31] LABS: Albumin 2.7 g/dL (3.5-5.7); BUN/Creatinine Ratio 15 (6-26); Blood Urea Nitrogen 22 mg/dL (6-20); Calcium 7.4 mg/dL (8.6-10.3); Carbon Dioxide 27 mEq/L (23-29); Chloride 100 mEq/L (98-107); Glucose 160 mg/dL (70-105); Osmolality,Calculated 281 (280-300); Potassium 4.4 mEq/L (3.5-5.1); Sodium 132 mEq/L (136-145); eGFR For Non-African Americans 51 (> 60)
--- NOTE | 2018-06-23 10:38 | Infectious Disease Progress No ---
Date of Encounter: 06/23/18 Time of Encounter: 10:36 - Assessment and Plan (1) Septic shock Current Visit: Yes Status: Acute The patient had 4 SIRS criteria plus lactic acidosis, acute kidney injury, acute encephalopathy, and hypotension requiring vasopressors. Likely secondary to candidemia, UTI, possible pneumonia. There is also a concern that there is an underlying infectious etiology that has not been identified given the critical nature of this patient. Improved. Leukocytosis trended down initially, but back up today. Afebrile. Tachycardia resolved. Remains intubated and sedated so unable to assess his mental status. Acute kidney injury improved. Blood cultures obtained 06/17/18 are +2 out of 2 sets for Marisela albicans, nation- sensitive. Repeat blood cultures obtained 06/19/18 are NGTD 2 sets. Etiology of worsening leukocytosis unclear. He also has bandemia. He did receive 4 days of steroids, which were stopped 06/19/18: lag vs. other. Continue to trend. No evidence of skin/soft tissue infection. He does have some new breakdown to the buttocks, but no clinical evidence of infection. Get CT of the chest, abdomen, and pelvis in the AM. Check amylase and lipase. Repeat blood cultures x 2 sets now peripherally. Check HIV. Continue Vancomycin IV. Pharmacy to dose. Goal trough ~15. Continue Zosyn 3.375 grams IV Q8H. Duration of treatment depends on the clinical picture. (2) Candidemia Current Visit: Yes Status: Acute Causative organism: Marisela albicans. Source: unclear. CT of the abdomen and pelvis is negative. He has no indwelling lines or catheters. His urine culture is positive for C. albicans. Blood cultures obtained 06/17/18 are +2 out of 2 sets for Marisela albicans, nation- sensitive. Repeat blood cultures obtained 06/19/18 are NGTD 2 sets. Discontinue Micafungin. Start fluconazole. Will ask pharmacy to assist with dosing for CRRT. Repeat LFTs normal. Duration of treatment depends on the clinical picture. Monitor liver function tests closely. Recommend ophthalmology to evaluate once patient stabilizes. (3) Pneumonia Current Visit: Yes Status: Suspected Location: Bilateral lower lobes. Causative organism: Unclear. Consider aspiration since the patient had altered mental status and was recently intubated. CT of the chest showed bilateral lower lobe infiltrates versus atelectasis. The patient does have a large amount of secretions coming from his ET tube. Discussed with the pulmonary team. Concern for pneumonia from their standpoint. MRSA screen completed 06/17/18 is negative. Sputum culture is NGTD. Check S. pneumo and Legionella UAT.--> negative. Check RIP.--> negative. Repeat CXR 06/23/18 showed mild pulmonary vascular congestion and atelectasis and mild pleural effusion at the right lung base, increased. Given that the patient continues to have septic shock and required vasopressors , we will continue vancomycin IV for now. Pharmacy to dose. Goal trough approximately 15. Continue Zosyn 3.375 g IV Q8H. Duration of treatment depends on the clinical picture. Monitor renal function and for drug toxicity and dose-adjust antibiotics. Qualifiers: Pneumonia type: due to unspecified organism Laterality: bilateral Lung location: lower lobe of lung Qualified Code(s): J18.1 - Lobar pneumonia, unspecified organism (4) UTI (urinary tract infection) Current Visit: Yes Status: Acute Causative organism: C. albicans. Per the patient's , asymptomatic prior to admission. Discontinue Micafungin and start fluconazole as above. Qualifiers: Urinary tract infection type: site unspecified Hematuria presence: without hematuria Qualified Code(s): N39.0 - Urinary tract infection, site not specified (5) LUCILA (acute kidney injury) Current Visit: Yes Status: Acute Likely multifactorial: sepsis + hypotension + other. CRRT started 06/19/18. Creatinine improved. Urine output remains low. Nephrology consulted and following. Continue to trend. Dose-adjust medications. (6) Lactic acidosis Current Visit: Yes Status: Resolved Likely secondary to sepsis. Resolved. (7) Thrombocytopenia Current Visit: Yes Status: Resolved Likely secondary to sepsis. LFTs abnormal on admission. Repeat LFTs normal. Improved. Continue to trend. No acute bleeding noted on exam. Further workup and management per the primary team. (8) Acute respiratory failure with hypoxemia Current Visit: Yes Status: Acute Likely secondary to PNA vs. pulmonary edema. Currently intubated. Vent management per the pulmonary team. (9) Systolic heart failure Current Visit: Yes Status: Acute TTE was sub-optimal, but showed approximate EF 20%. Qualifiers: Heart failure chronicity: unspecified Qualified Code(s): I50.20 - Unspecified systolic (congestive) heart failure (10) Hypokalemia Current Visit: Yes Status: Resolved Resolved. (11) Elevated troponin Current Visit: Yes Status: Acute Management per the primary team. (12) Type 2 diabetes mellitus Current Visit: Yes Status: Chronic Recommend aggressive glucose monitoring and control. Management per the primary team. 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 Weekend notes reviewed. Patient remains intubated and sedated. Minimally responsive to verbal stimuli, but does not follow commands or attempt to communicate. Continues to require vasopressors x 2 to maintain adequate perfusion. Tube feeds started and tolerating well with no residuals per nursing. No bowel movement since admission. SOLEDAD started Saturday. Urine output minimal. Infect Dis PN-Objective Data - Labs CBC & Chem 7: 06/24/18 03:00 06/24/18 03:00 Labs: Laboratory Results - last 24 hr 06/22/18 06/22/18 06/22/18 11:39 11:39 14:56 WBC RBC Hgb Hct MCV MCH MCHC RDW Plt Count MPV Seg Neutrophils % Band Neutrophils % Lymphocytes % Monocytes % Neutrophils # Lymphocytes # Monocytes # Nucleated RBCs/100 WBC Platelet Estimate Large Platelets APTT 31.8 Sample Site ABG pH ABG pCO2 ABG pO2 ABG HCO3 ABG Total CO2 ABG O2 Saturation ABG Base Excess Michael Test Respiration Rate O2 Delivery Device Blood Gas Modality Inspired O2 Tidal Volume PEEP Sodium Potassium Chloride Carbon Dioxide BUN Creatinine Est GFR ( Amer) Est GFR (Non-Af Amer) BUN/Creatinine Ratio Glucose POC Glucose 159 H Calculated Osmolality Calcium Phosphorus Total Bilirubin 1.0 Direct Bilirubin 0.5 H Indirect Bilirubin 0.5 AST 25 ALT 21 Alkaline Phosphatase 77 Serum Total Protein 5.6 L Albumin 2.6 L Globulin 3.0 Albumin/Globulin Ratio 0.9 L Random Vancomycin 06/22/18 06/22/18 06/22/18 15:00 18:18 18:31 WBC RBC Hgb Hct MCV MCH MCHC RDW Plt Count MPV Seg Neutrophils % Band Neutrophils % Lymphocytes % Monocytes % Neutrophils # Lymphocytes # Monocytes # Nucleated RBCs/100 WBC Platelet Estimate Large Platelets APTT 92.1 H D Sample Site ABG pH ABG pCO2 ABG pO2 ABG HCO3 ABG Total CO2 ABG O2 Saturation ABG Base Excess Michael Test Respiration Rate O2 Delivery Device Blood Gas Modality Inspired O2 Tidal Volume PEEP Sodium 131 L Potassium 4.4 Chloride 98 Carbon Dioxide 25 BUN 24 H Creatinine 1.73 H Est GFR ( Amer) 50 L Est GFR (Non-Af Amer) 42 L BUN/Creatinine Ratio 14 Glucose 152 H POC Glucose 131 H Calculated Osmolality 279 L Calcium 7.2 L Phosphorus 3.3 Total Bilirubin Direct Bilirubin Indirect Bilirubin AST ALT Alkaline Phosphatase Serum Total Protein Albumin 2.8 L Globulin Albumin/Globulin Ratio Random Vancomycin 06/22/18 06/22/18 06/22/18 19:28 19:46 20:35 WBC RBC Hgb Hct MCV MCH MCHC RDW Plt Count MPV Seg Neutrophils % Band Neutrophils % Lymphocytes % Monocytes % Neutrophils # Lymphocytes # Monocytes # Nucleated RBCs/100 WBC Platelet Estimate Large Platelets APTT 80.0 H Sample Site ABG pH ABG pCO2 ABG pO2 ABG HCO3 ABG Total CO2 ABG O2 Saturation ABG Base Excess Michael Test Respiration Rate O2 Delivery Device Blood Gas Modality Inspired O2 Tidal Volume PEEP Sodium Potassium Chloride Carbon Dioxide BUN Creatinine Est GFR ( Amer) Est GFR (Non-Af Amer) BUN/Creatinine Ratio Glucose POC Glucose 128 H 133 H Calculated Osmolality Calcium Phosphorus Total Bilirubin Direct Bilirubin Indirect Bilirubin AST ALT Alkaline Phosphatase Serum Total Protein Albumin Globulin Albumin/Globulin Ratio Random Vancomycin 06/22/18 06/22/18 06/22/18 20:58 21:25 23:34 WBC RBC Hgb Hct MCV MCH MCHC RDW Plt Count MPV Seg Neutrophils % Band Neutrophils % Lymphocytes % Monocytes % Neutrophils # Lymphocytes # Monocytes # Nucleated RBCs/100 WBC Platelet Estimate Large Platelets APTT Sample Site ABG pH ABG pCO2 ABG pO2 ABG HCO3 ABG Total CO2 ABG O2 Saturation ABG Base Excess Michael Test Respiration Rate O2 Delivery Device Blood Gas Modality Inspired O2 Tidal Volume PEEP Sodium Potassium Chloride Carbon Dioxide BUN Creatinine Est GFR ( Amer) Est GFR (Non-Af Amer) BUN/Creatinine Ratio Glucose POC Glucose 138 H 144 H 131 H Calculated Osmolality Calcium Phosphorus Total Bilirubin Direct Bilirubin Indirect Bilirubin AST ALT Alkaline Phosphatase Serum Total Protein Albumin Globulin Albumin/Globulin Ratio Random Vancomycin 06/22/18 06/23/18 06/23/18 23:40 00:06 00:31 WBC RBC Hgb Hct MCV MCH MCHC RDW Plt Count MPV Seg Neutrophils % Band Neutrophils % Lymphocytes % Monocytes % Neutrophils # Lymphocytes # Monocytes # Nucleated RBCs/100 WBC Platelet Estimate Large Platelets APTT 73.2 H Sample Site ABG pH ABG pCO2 ABG pO2 ABG HCO3 ABG Total CO2 ABG O2 Saturation ABG Base Excess Michael Test Respiration Rate O2 Delivery Device Blood Gas Modality Inspired O2 Tidal Volume PEEP Sodium Potassium Chloride Carbon Dioxide BUN Creatinine Est GFR ( Amer) Est GFR (Non-Af Amer) BUN/Creatinine Ratio Glucose POC Glucose 130 H 129 H Calculated Osmolality Calcium Phosphorus Total Bilirubin Direct Bilirubin Indirect Bilirubin AST ALT Alkaline Phosphatase Serum Total Protein Albumin Globulin Albumin/Globulin Ratio Random Vancomycin 06/23/18 06/23/18 06/23/18 01:26 02:31 03:15 WBC RBC Hgb Hct MCV MCH MCHC RDW Plt Count MPV Seg Neutrophils % Band Neutrophils % Lymphocytes % Monocytes % Neutrophils # Lymphocytes # Monocytes # Nucleated RBCs/100 WBC Platelet Estimate Large Platelets APTT Sample Site ABG pH ABG pCO2 ABG pO2 ABG HCO3 ABG Total CO2 ABG O2 Saturation ABG Base Excess Michael Test Respiration Rate O2 Delivery Device Blood Gas Modality Inspired O2 Tidal Volume PEEP Sodium Potassium Chloride Carbon Dioxide BUN Creatinine Est GFR ( Amer) Est GFR (Non-Af Amer) BUN/Creatinine Ratio Glucose POC Glucose 129 H 127 H Calculated Osmolality Calcium Phosphorus Total Bilirubin Direct Bilirubin Indirect Bilirubin AST ALT Alkaline Phosphatase Serum Total Protein Albumin Globulin Albumin/Globulin Ratio Random Vancomycin 11 06/23/18 06/23/18 06/23/18 03:15 03:15 03:15 WBC 27.3 H RBC 3.19 L Hgb 9.8 L Hct 30.5 L MCV 95.6 MCH 30.7 MCHC 32.1 RDW 16.3 H Plt Count 133 L D MPV 11.6 Seg Neutrophils % 52.0 Band Neutrophils % 10.0 H Lymphocytes % 18.0 Monocytes % 20.0 Neutrophils # 16.9 H Lymphocytes # 4.9 H Monocytes # 5.5 H Nucleated RBCs/100 WBC 0.1 H Platelet Estimate Normal Large Platelets Present A APTT 66.8 H Sample Site ABG pH ABG pCO2 ABG pO2 ABG HCO3 ABG Total CO2 ABG O2 Saturation ABG Base Excess Michael Test Respiration Rate O2 Delivery Device Blood Gas Modality Inspired O2 Tidal Volume PEEP Sodium 132 L Potassium 4.3 Chloride 100 Carbon Dioxide 26 BUN 23 H Creatinine 1.56 H Est GFR ( Amer) 57 L Est GFR (Non-Af Amer) 47 L BUN/Creatinine Ratio 15 Glucose 148 H POC Glucose Calculated Osmolality 280 Calcium 7.2 L Phosphorus Total Bilirubin 0.9 Direct Bilirubin 0.4 H Indirect Bilirubin AST 24 ALT 21 Alkaline Phosphatase 94 Serum Total Protein 5.9 L Albumin 2.7 L Globulin 3.2 Albumin/Globulin Ratio 0.8 L Random Vancomycin 06/23/18 06/23/18 06/23/18 03:40 04:33 05:17 WBC RBC Hgb Hct MCV MCH MCHC RDW Plt Count MPV Seg Neutrophils % Band Neutrophils % Lymphocytes % Monocytes % Neutrophils # Lymphocytes # Monocytes # Nucleated RBCs/100 WBC Platelet Estimate Large Platelets APTT Sample Site R Radial ABG pH 7.31 L ABG pCO2 55 H ABG pO2 68 L ABG HCO3 27 ABG Total CO2 29 H ABG O2 Saturation 91 L ABG Base Excess 0 Michael Test N/A Respiration Rate 24 O2 Delivery Device Adult Vent Blood Gas Modality ASSIST CONTROL Inspired O2 55.0 Tidal Volume 400 PEEP 10 Sodium Potassium Chloride Carbon Dioxide BUN Creatinine Est GFR ( Amer) Est GFR (Non-Af Amer) BUN/Creatinine Ratio Glucose POC Glucose 129 H 126 H Calculated Osmolality Calcium Phosphorus Total Bilirubin Direct Bilirubin Indirect Bilirubin AST ALT Alkaline Phosphatase Serum Total Protein Albumin Globulin Albumin/Globulin Ratio Random Vancomycin 06/23/18 06/23/18 06/23/18 05:34 06:41 08:00 WBC RBC Hgb Hct MCV MCH MCHC RDW Plt Count MPV Seg Neutrophils % Band Neutrophils % Lymphocytes % Monocytes % Neutrophils # Lymphocytes # Monocytes # Nucleated RBCs/100 WBC Platelet Estimate Large Platelets APTT 62.8 H Sample Site ABG pH ABG pCO2 ABG pO2 ABG HCO3 ABG Total CO2 ABG O2 Saturation ABG Base Excess Michael Test Respiration Rate O2 Delivery Device Blood Gas Modality Inspired O2 Tidal Volume PEEP Sodium Potassium Chloride Carbon Dioxide BUN Creatinine Est GFR ( Amer) Est GFR (Non-Af Amer) BUN/Creatinine Ratio Glucose POC Glucose 123 H 132 H Calculated Osmolality Calcium Phosphorus Total Bilirubin Direct Bilirubin Indirect Bilirubin AST ALT Alkaline Phosphatase Serum Total Protein Albumin Globulin Albumin/Globulin Ratio Random Vancomycin 06/23/18 06/23/18 06/23/18 08:11 09:08 09:49 WBC RBC Hgb Hct MCV MCH MCHC RDW Plt Count MPV Seg Neutrophils % Band Neutrophils % Lymphocytes % Monocytes % Neutrophils # Lymphocytes # Monocytes # Nucleated RBCs/100 WBC Platelet Estimate Large Platelets APTT Sample Site ABG pH ABG pCO2 ABG pO2 ABG HCO3 ABG Total CO2 ABG O2 Saturation ABG Base Excess Michael Test Respiration Rate O2 Delivery Device Blood Gas Modality Inspired O2 Tidal Volume PEEP Sodium Potassium Chloride Carbon Dioxide BUN Creatinine Est GFR ( Amer) Est GFR (Non-Af Amer) BUN/Creatinine Ratio Glucose POC Glucose 130 H 149 H 150 H Calculated Osmolality Calcium Phosphorus Total Bilirubin Direct Bilirubin Indirect Bilirubin AST ALT Alkaline Phosphatase Serum Total Protein Albumin Globulin Albumin/Globulin Ratio Random Vancomycin 06/23/18 10:00 WBC RBC Hgb Hct MCV MCH MCHC RDW Plt Count MPV Seg Neutrophils % Band Neutrophils % Lymphocytes % Monocytes % Neutrophils # Lymphocytes # Monocytes # Nucleated RBCs/100 WBC Platelet Estimate Large Platelets APTT Sample Site ABG pH ABG pCO2 ABG pO2 ABG HCO3 ABG Total CO2 ABG O2 Saturation ABG Base Excess Michael Test Respiration Rate O2 Delivery Device Blood Gas Modality Inspired O2 Tidal Volume PEEP Sodium 132 L Potassium 4.4 Chloride 100 Carbon Dioxide 27 BUN 22 H Creatinine 1.45 H Est GFR ( Amer) > 60 Est GFR (Non-Af Amer) 51 L BUN/Creatinine Ratio 15 Glucose 160 H POC Glucose Calculated Osmolality 281 Calcium 7.4 L Phosphorus 3.0 Total Bilirubin Direct Bilirubin Indirect Bilirubin AST ALT Alkaline Phosphatase Serum Total Protein Albumin 2.7 L Globulin Albumin/Globulin Ratio Random Vancomycin Cultures: Cultures 06/18/18 20:45 Sputum Culture - Preliminary Sputum 06/20/18 11:30 Legionella Antigen - Final Urine,[place] Streptococcus pneumoniae Antigen (M - Final 06/19/18 12:46 Blood Culture - Preliminary Peripheral Venipuncture Culture is incubating and being continuously monitored for growth. Final report to follow. 06/19/18 12:46 Blood Culture - Preliminary Peripheral Venipuncture Culture is incubating and being continuously monitored for growth. Final report to follow. Serology 06/20/18 06/18/18 06/18/18 Range/Units 11:30 10:28 10:28 Urine Osmolality 343 (300-1090) mOsm/kg Urine Sodium mEq/L Urine Potassium 36.5 mEq/L Urine Chloride mEq/L Nasal Screen MRSA (PCR) (Negative) Chlamy pneumoniae PCR Not Detected (Not Detect) Adenovirus (PCR) Not Detected (Not Detect) B. pertussis DNA (PCR) Not Detected (Not Detect) B.parapertussis DNA PCR Not Detected (Not Detect) Coronavirus OC43 (PCR) Not Detected (Not Detect) Coronavirus HKU1 (PCR) Not Detected (Not Detect) Coronavirus 229E (PCR) Not Detected (Not Detect) Coronavirus NL63 (PCR) Not Detected (Not Detect) Human Metapneumovir PCR Not Detected (Not Detect) Influenza A (H1) PCR Not Detected (Not Detect) Influ A (H1N1/09) PCR Not Detected (Not Detect) Influenza A (H3) PCR Not Detected (Not Detect) Influenza A Untype (PCR) Not Detected (Not Detect) Influenza Type B (PCR) Not Detected (Not Detect) M.pneumoniae DNA (PCR) Not Detected (Not Detect) Parainfluenza 1 (PCR) Not Detected (Not Detect) Parainfluenza 2 (PCR) Not Detected (Not Detect) Parainfluenza 3 (PCR) Not Detected (Not Detect) Parainfluenza 4 (PCR) Not Detected (Not Detect) RSV (PCR) Not Detected (Not Detect) Entero/Rhino (PCR) Not Detected (Not Detect) 06/17/18 06/17/18 06/17/18 Range/Units 18:15 11:56 11:30 Urine Osmolality (300-1090) mOsm/kg Urine Sodium 128.8 mEq/L Urine Potassium 7.5 mEq/L Urine Chloride 135 mEq/L Nasal Screen MRSA (PCR) Negative (Negative) Chlamy pneumoniae PCR Not Detected (Not Detect) Adenovirus (PCR) Not Detected (Not Detect) B. pertussis DNA (PCR) Not Detected (Not Detect) B.parapertussis DNA PCR Not Detected (Not Detect) Coronavirus OC43 (PCR) Not Detected (Not Detect) Coronavirus HKU1 (PCR) Not Detected (Not Detect) Coronavirus 229E (PCR) Not Detected (Not Detect) Coronavirus NL63 (PCR) Not Detected (Not Detect) Human Metapneumovir PCR Not Detected (Not Detect) Influenza A (H1) PCR Not Detected (Not Detect) Influ A (H1N1/09) PCR Not Detected (Not Detect) Influenza A (H3) PCR Not Detected (Not Detect) Influenza A Untype (PCR) Not Detected (Not Detect) Influenza Type B (PCR) Not Detected (Not Detect) M.pneumoniae DNA (PCR) Not Detected (Not Detect) Parainfluenza 1 (PCR) Not Detected (Not Detect) Parainfluenza 2 (PCR) Not Detected (Not Detect) Parainfluenza 3 (PCR) Not Detected (Not Detect) Parainfluenza 4 (PCR) Not Detected (Not Detect) RSV (PCR) Not Detected (Not Detect) Entero/Rhino (PCR) Not Detected (Not Detect) - Impressions Impressions Chest X-Ray 06/23/18 08:04 IMPRESSION: Mild pulmonary vascular congestion. Atelectasis and mild pleural effusion at the right lung base, increased. D/ / Arsen Herron MD / Arsen Herron MD Interpreting Provider: Arsen Herron MD Exam - Constitutional Vitals: Temp Pulse Resp BP Pulse Ox 96.2 F L 67 24 87/56 93 06/23/18 07:30 06/23/18 10:00 06/23/18 10:00 06/23/18 10:00 06/23/18 10:00 General appearance: no acute distress, obese, no febrile - Head Head exam: Present: atraumatic, normal inspection, normocephalic - Eye Eye exam: Present: normal appearance, PERRL Pupils: Present: normal accommodation - ENT ENT exam: Present: mucous membranes dry - Neck Neck exam: Present: normal inspection Additional comments: Right IJ TDC noted with transparent dressing C/D/I. - Respiratory Respiratory exam: Present: CTAB. Absent: rales, respiratory distress, rhonchi, wheezes - Cardiovascular Cardiovascular exam: Present: RRR, +S1, +S2 - GI/Abdominal GI/Abdominal exam: Present: distended, firm, hypoactive bowel sounds. Absent: tenderness Additional comments: [place] catheter noted to be draining scant amount of urine. OG tube with tube feeds infusing. - Extremities Exam Extremities exam: Present: pedal edema (2+ BLE.) - Neurological Exam Neurological exam: Present: altered (Sedated.), no focal deficits (TORRES x 4 spontaneously.) - Skin Skin exam: Present: dry, intact, normal color, warm - VTE Documentation of Mechanical Device: Intermittent pneumatic compression device Consult Discharge Plan - Plan Referrals: Sheryl Stahl CATHETERIZATION LABORATORY TECHNICIAN [Primary Care Provider] - - Attending Attestation I examined this patient and my medical decision-making was reviewed with July Owens CNP. I agree with the documented findings, disposition and treatment plan as described except to the extent set forth below.
[2018-06-23] MEDS: Sennosides/Docusate Sodium TABLET PO SCH ×2 (11:25→20:14)
[2018-06-23 11:40] LABS: ABG Base Excess 0 mEq/L (-2 to 3); ABG HCO3 26 mEq/L (21-27); ABG Oxygen Saturation 91 % (95-98); ABG PCO2 53 mmHg (35-45); ABG PH 7.31 pH Units (7.32-7.45); ABG PO2 69 mmHg (85-104); ABG TCO2 28 mEq/L (20-26); Blood Gas Modality ASSIST CONTROL; Blood Gas PEEP 8 cm H2O; Blood Gas Respiration Rate 18; Blood Gas VT 500 cc
[2018-06-23] MEDS: Argatroban 250 MG in D5% in Water 250 ML IVC SCH (13:02)
[2018-06-23 15:34] LABS: VBG Ionized Calcium 0.85 mmol/L (1.15-1.35)
[2018-06-23] MEDS: Fluconazole 400 MG/200 ML IVPB SCH (15:36)
[2018-06-23 16:40] LABS: VBG Ionized Calcium 1.02 mmol/L (1.15-1.35)
[2018-06-23 16:57] LABS: Albumin 2.6 g/dL (3.5-5.7); Amylase 20 Units/L (29-103); BUN/Creatinine Ratio 16 (6-26); Blood Urea Nitrogen 22 mg/dL (6-20); Calcium 7.3 mg/dL (8.6-10.3); Carbon Dioxide 28 mEq/L (23-29); Chloride 102 mEq/L (98-107); Creatine Kinase 210 Units/L (30-223); Glucose 141 mg/dL (70-105); Lipase 14 Units/L (11-82); Osmolality,Calculated 282 (280-300); Phosphorous 2.5 mg/dL (2.7-4.5); Sodium 133 mEq/L (136-145); eGFR For Non-African Americans 53 (> 60)
[2018-06-23] MEDS: Scopolamine Patch 1.5 MG PATCH.TD72 TD SCH (18:03)
[2018-06-23] MEDS ORDERED: *HR* Heparin 5,000 UNIT/ML VIAL IV PRN (18:12)
[2018-06-23] MEDS ORDERED: 0.9 % Sodium Chloride 1,000 ML PRIME SCH (18:15)
[2018-06-23] MEDS: 0.9 % Sodium Chloride 1,000 ML IVC SCH (19:42)
[2018-06-23] MEDS: Ipratropium/Albuterol Neb 3 ML IH PRN (21:26)
[2018-06-23 21:57] LABS: Albumin 2.6 g/dL (3.5-5.7); BUN/Creatinine Ratio 17 (6-26); Blood Urea Nitrogen 21 mg/dL (6-20); Calcium 7.3 mg/dL (8.6-10.3); Carbon Dioxide 27 mEq/L (23-29); Chloride 100 mEq/L (98-107); Glucose 136 mg/dL (70-105); Osmolality,Calculated 281 (280-300); Phosphorous 2.8 mg/dL (2.7-4.5); Potassium 4.1 mEq/L (3.5-5.1); Sodium 133 mEq/L (136-145); eGFR For Non-African Americans > 60 (> 60)
[2018-06-24] MEDS: PrismaSATE BGK 4/2.5 5,000 ML CRRT SCH ×12 (00:07→21:55)
[2018-06-24] MEDS: Artificial Tears SOLN 15 ML BOTTLE BOTH EYES SCH ×7 (01:14→23:04)
[2018-06-24] MEDS: Norepinephrine 8 MG in D5% in Water 250 ML IVC SCH ×3 (01:33→21:56)
[2018-06-24] MEDS: Piperacillin/Tazobactam 3.375 GM in 0.9 % Sodium Chloride Mini Bag 100 ML IVPB SCH ×3 (03:05→19:37)
[2018-06-24 03:16] LABS: Eosinophils % 0.9 %; Mean Platelet Volume 10.7 fL (9.4-12.4); Monocytes % 4.8 %; Nucleated Red Blood Cells 0.4 /100 WBC (0)
[2018-06-24 03:16] LABS: VBG Ionized Calcium 1.01 mmol/L (1.15-1.35)
[2018-06-24 03:17] LABS: Basophils % 0.1 %; Eosinophils # 0.2 K/mcL (0.0-0.6); Hematocrit 28.6 % (37.5-50.1); Hemoglobin 9.4 g/dL (12.9-16.9); Lymphocytes # 2.1 K/mcL (0.6-4.6); Lymphocytes % 8.2 %; Mean Corpuscular HGB Conc 32.9 g/dL (31.6-35.5); Mean Corpuscular Hemoglobin 31.1 pg (28.0-33.3); Mean Corpuscular Volume 94.7 fL (83.0-100.0); Monocytes # 1.2 K/mcL (0.0-1.3); Neutrophils # 18.2 K/mcL (1.6-8.9); Platelet Count 149 K/mcL (140-400); Red Blood Count 3.02 M/mcL (4.19-5.50); Red Cell Distribution Width 16.6 % (11.5-14.5)
[2018-06-24 03:32] LABS: Alanine Aminotransferase 18 Units/L (7-52); Albumin 2.6 g/dL (3.5-5.7); Albumin/Globulin Ratio 0.8 (1.1-2.2); Alkaline Phosphatase 126 Units/L (34-104); Aspartate Amino Transferase 21 Units/L (13-39); BUN/Creatinine Ratio 15 (6-26); Bilirubin,Total 0.7 mg/dL (0.3-1.0); Blood Urea Nitrogen 21 mg/dL (6-20); Calcium 7.4 mg/dL (8.6-10.3); Carbon Dioxide 27 mEq/L (23-29); Chloride 100 mEq/L (98-107); Globulin 3.1 g/dL (2.4-3.5); Glucose 149 mg/dL (70-105); Magnesium 2.5 mg/dL (1.6-2.6); Osmolality,Calculated 282 (280-300); Phosphorous 2.4 mg/dL (2.7-4.5); Potassium 4.1 mEq/L (3.5-5.1); Sodium 133 mEq/L (136-145); Total Protein 5.7 g/dL (6.4-8.9); Vancomycin,Random 12 mcg/mL; eGFR For Non-African Americans 54 (> 60)
[2018-06-24 03:42] LABS: Platelet Estimate Normal (Normal)
[2018-06-24] MEDS: FentaNYL (PF) 2,500 MCG in EMPTY BAG 1 EACH IVC SCH ×2 (03:50→17:18)
[2018-06-24 05:18] LABS: ABG Base Excess 0 mEq/L (-2 to 3); ABG HCO3 26 mEq/L (21-27); ABG Oxygen Saturation 95 % (95-98); ABG PCO2 44 mmHg (35-45); ABG PH 7.37 pH Units (7.32-7.45); ABG PO2 78 mmHg (85-104); ABG TCO2 27 mEq/L (20-26); Blood Gas Modality PRVC; Blood Gas PEEP 8 cm H2O; Blood Gas Respiration Rate 18; Blood Gas VT 500 cc
--- NOTE | 2018-06-24 07:41 | Pulmonology Progress Note ---
<EvanInga M - Last Filed: 06/24/18 10:41> Date of Encounter: 06/24/18 Objective PUL Vital signs: Last Vital Signs Temp 99.0 F 06/24/18 09:00 Pulse 81 06/24/18 10:00 Resp 18 06/24/18 10:00 BP 94/56 06/24/18 10:00 Pulse Ox 95 06/24/18 10:00 Ventilator Settings Ventilator Settings: Ventilator Settings, Last 8 Hours Ventilator Tidal Volume 500 Setting Ventilator Tidal Volume 500 Setting Ventilator Tidal Volume 500 Setting Ventilator Tidal Volume 500 Setting Ventilator Tidal Volume 500 Setting Ventilator Tidal Volume 500 Setting Ventilator Tidal Volume 500 Setting Ventilator Tidal Volume 500 Setting Ventilator Tidal Volume 500 Setting Ventilator Tidal Volume 500 Setting Ventilator Tidal Volume 500 Setting Ventilator Tidal Volume 500 Setting Ventilator Respiratory Rate 18 Setting Ventilator Respiratory Rate 18 Setting Ventilator Respiratory Rate 18 Setting Ventilator Respiratory Rate 18 Setting Ventilator Respiratory Rate 18 Setting Ventilator Respiratory Rate 18 Setting Ventilator Respiratory Rate 18 Setting Ventilator Respiratory Rate 18 Setting Ventilator Respiratory Rate 18 Setting Ventilator Respiratory Rate 18 Setting Ventilator Respiratory Rate 18 Setting Ventilator Respiratory Rate 18 Setting Actual Respiratory Rate 18 Actual Respiratory Rate 18 Actual Respiratory Rate 18 Actual Respiratory Rate 18 Actual Respiratory Rate 18 Actual Respiratory Rate 18 Actual Respiratory Rate 18 Actual Respiratory Rate 18 Actual Respiratory Rate 18 Actual Respiratory Rate 18 Actual Respiratory Rate 18 Positive End Expiratory 8 Pressure Positive End Expiratory 8 Pressure Positive End Expiratory 8 Pressure Positive End Expiratory 8 Pressure Positive End Expiratory 8 Pressure Positive End Expiratory 8 Pressure Positive End Expiratory 8 Pressure Positive End Expiratory 8 Pressure Positive End Expiratory 8 Pressure Positive End Expiratory 8 Pressure Positive End Expiratory 8 Pressure Positive End Expiratory 8 Pressure Peak Inspiratory Airway 41 Pressure Peak Inspiratory Airway 41 Pressure Peak Inspiratory Airway 41 Pressure Peak Inspiratory Airway 41 Pressure Peak Inspiratory Airway 41 Pressure Peak Inspiratory Airway 41 Pressure Peak Inspiratory Airway 42 Pressure Results - Laboratory Findings CBC and BMP: 06/24/18 03:00 06/24/18 03:00 ABG ABG pH 7.37 pH Units (7.32-7.45) 06/24/18 05:13 ABG pCO2 44 mmHg (35-45) 06/24/18 05:13 ABG pO2 78 mmHg (85-104) L 06/24/18 05:13 ABG O2 Saturation 95 % (95-98) 06/24/18 05:13 PT/INR, D-dimer PT 16.7 Seconds (9.4-12.1) H 06/22/18 03:45 D-Dimer 3465 ng/mLFEU (0-500) H 06/18/18 08:08 Abnormal lab findings: Abnormal lab results WBC 25.3 K/mcL (4.3-11.1) H 06/24/18 03:00 RBC 3.02 M/mcL (4.19-5.50) L 06/24/18 03:00 Hgb 9.4 g/dL (12.9-16.9) L 06/24/18 03:00 Hct 28.6 % (37.5-50.1) L 06/24/18 03:00 RDW 16.6 % (11.5-14.5) H 06/24/18 03:00 Immature Gran % 14.0 % (0-4) H 06/24/18 03:00 Band Neutrophils % 10.0 % (0-4) H 06/23/18 03:15 Neutrophils # 18.2 K/mcL (1.6-8.9) H 06/24/18 03:00 Nucleated RBCs/100 WBC 0.4 /100 WBC (0) H 06/24/18 03:00 Toxic Granulation Present (Not Present) A 06/18/18 03:05 Toxic Vacuolation Present (Not Present) A 06/22/18 03:45 Large Platelets Present (Not Present) A 06/23/18 03:15 Immature Plt Fraction 27.2 % (1.1-6.1) H 06/22/18 03:45 PT 16.7 Seconds (9.4-12.1) H 06/22/18 03:45 APTT 62.8 Seconds (26.0-36.0) H 06/23/18 08:00 Fibrinogen 578 mg/dL (169-393) H 06/18/18 08:08 D-Dimer 3465 ng/mLFEU (0-500) H 06/18/18 08:08 ABG pO2 78 mmHg (85-104) L 06/24/18 05:13 ABG Total CO2 27 mEq/L (20-26) H 06/24/18 05:13 Sodium 133 mEq/L (136-145) L 06/24/18 03:00 BUN 21 mg/dL (6-20) H 06/24/18 03:00 Creatinine 1.37 mg/dL (0.70-1.30) H 06/24/18 03:00 Est GFR (Non-Af Amer) 54 (> 60) L 06/24/18 03:00 Glucose 149 mg/dL (70-105) H 06/24/18 03:00 POC Glucose 142 mg/dL (70-99) H 06/24/18 10:03 Calcium 7.4 mg/dL (8.6-10.3) L 06/24/18 03:00 Venous Ioniz Calcium 1.01 mmol/L (1.15-1.35) L 06/24/18 03:13 Phosphorus 2.4 mg/dL (2.7-4.5) L 06/24/18 03:00 Direct Bilirubin 0.4 mg/dL (0.0-0.2) H 06/23/18 03:15 Alkaline Phosphatase 126 Units/L (34-104) H 06/24/18 03:00 Troponin I 0.92 ng/mL (< 0.04) H* 06/17/18 22:33 Serum Total Protein 5.7 g/dL (6.4-8.9) L 06/24/18 03:00 Albumin 2.6 g/dL (3.5-5.7) L 06/24/18 03:00 Albumin/Globulin Ratio 0.8 (1.1-2.2) L 06/24/18 03:00 Amylase 20 Units/L (29-103) L 06/23/18 16:27 Procalcitonin 107.11 ng/mL (<=0.07) H 06/17/18 16:40 Vancomycin Trough 18 mcg/mL (5-10) H 06/19/18 08:20 Urine Opiates Screen Positive ng/mL (Bdaaue=373) H 06/18/18 10:37 U Benzodiazepines Scrn Positive ng/mL (Aymrrt=577) H 06/18/18 10:37 - Microbiology Findings Microbiology Findings: Microbiology, Last 48 Hours 06/18/18 20:45 Sputum Culture - Final Sputum - Clinical Findings Intake & Output: Intake & Output 06/23/18 06/24/18 06/24/18 23:59 07:59 15:59 Intake Total 1759.9 / 1759.9 650.0 / 650.0 501 / 501 Output Total 1622 / 1622 1428 / 1428 408 / 408 Balance 137.9 / 137.9 -778.0 / -778.0 93 / 93 Weight 136.7 kg Consult Discharge Plan - Plan Referrals: Sheryl Stahl SALES ACTIVITY MANAGER [Primary Care Provider] - - Attending Attestation I examined this patient and my medical decision-making was reviewed with the Resident Physician. I agree with the documented findings, disposition and treatment plan as described except to the extent set forth below. Patient seen and examined. Labs, radiology, chart personally reviewed. 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 Cardiovascular: Still requiring vasopressor and we will try to keep him on only Levophed GI: Nutrition per dietary and GI prophylaxis per routine and he had bowel movement Heme: DVT prophylaxis per routine patient needs to be on anticoagulation for DVT prophylaxis and Argatrobant was stopped ID: Continue antibiotics and plan to de-escalation and appreciate infectious disease input. Renal; urine out put and renal funtion reviewed. Patient remain on Kimmie and appreciate nephrology's help. As much as possible to remove fluid. Endorcine: blood glucose is monitored Lines: all lines checked and no evidence of infections Skin: skin care to prevent pressure ulcers per nursing routine care Patient remain critically ill and family is asking about transferring patient to a different facility and give the option to the family regarding transferred to and I told them in my opinion there will be no significant change in the management as well as transportation has risks with it. <Bonnie Cummins E - Last Filed: 06/24/18 10:53> Date of Encounter: 06/24/18 Time of Encounter: 07:28 Assessment and Plan (1) Septic shock Current Visit: Yes Status: Acute sepsis suspected secondary to karo fungemia. Norepinephrine as needed. MAP this morning 73, Continue zosyn and vancomycin (day 8). ID recommends continuing antibiotics for now. On fluconazole for fungemia, possible from UTI. No growth on repeat cultures from 06/19/18. KUB shows no sign of perforation but diffuse anascara. (2) Acute respiratory failure with hypoxemia Current Visit: Yes Status: Acute On ventilatorChest XR from this morning shows ET tube approxamately 4 cm above sanjeev. pH is improving, 7.37 today. Continue to monitor and repeat ABGs if changes in respiratory status. (3) COPD (chronic obstructive pulmonary disease) Current Visit: Yes Status: Chronic Continue ventilator, adjust as tolerated. New Chest XR shows ET tube 4 cm above sanjeev Qualifiers: COPD type: emphysema Emphysema type: unspecified Qualified Code(s): J43.9 - Emphysema, unspecified (4) Systolic heart failure Current Visit: Yes Status: Acute MAP today 73. Continue to monitor and titrate norepinephrine as he tolerates to keep MAP above 60. Qualifiers: Heart failure chronicity: unspecified Qualified Code(s): I50.20 - Unspecified systolic (congestive) heart failure (5) LUCILA (acute kidney injury) Current Visit: Yes Status: Acute improvement of creatinine, 1.37 today. Urine output is up to 20 ml/hr. Nephrology following. (6) Hypocalcemia Current Visit: Yes Status: Acute Continue to monitor. Calcium today at 7.4. Replace if necessary (7) Thrombocytopenia Current Visit: Yes Status: Resolved Improving, platelet count to 149 today continues to increase. Agatraban stoped, heparin restarted as HIT less likely. 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 NO heparin was in use in the lines which could have caused the excessive clotting on dialysis filter. Also, platelet count could have been decreased do to septic shock. (9) Hypokalemia Current Visit: Yes Status: Resolved resolved, today potassium is 4.1, stable (10) Type 2 diabetes mellitus Current Visit: Yes Status: Chronic Glucose today is 149. Was started on high sliding scale of lispro on admission. IV insulin drip. Trickle feeds were started 06/22/18. Continue to monitor, continue IV insulin. Qualifiers: Diabetes mellitus senior care insulin use: with remote computer terminal operator use Diabetes mellitus complication status: with unspecified complications Qualified Code(s) : E11.8 - Type 2 diabetes mellitus with unspecified complications; Z79.4 - skilled nursing (current) use of insulin (11) DVT prophylaxis Current Visit: Yes Status: Acute Agatroban stopped, Heparin 5000 units q12 restarted. Subjective Principal diagnosis: septic shock Interval history: Mr. Mccarthy was seen at bedside this morning. He is sedated and intubated and on ventilator. BUN And creatinine continue to decrease towards normal levels. WBC count decreased from yesterday. ABGs normalizing. 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 Eyes examined with no erythema. Agatroban stopped and heparin started. Objective PUL Vital signs: Last Vital Signs Temp 97.7 F 06/24/18 03:00 Pulse 78 06/24/18 06:08 Resp 18 06/24/18 06:08 BP 91/57 06/24/18 06:08 Pulse Ox 94 06/24/18 06:08 General appearance: other (sedated and intubated) Eyes: nonicteric ENT: oropharynx dry Neck: no lymphadenopathy Auscultation: bilateral: diminished breath sounds (bilateral lower lobes), wheezes (nild inspiratory wheeze) Cardiovascular: regular rate and rhythm Gastrointestinal: hypoactive bowel sounds (distended) Integumentary: normal Extremities: no cyanosis, edema (1+ pitting pedal edema) other (pupil reactive to light) Ventilator Settings Ventilator Settings: Ventilator Settings, Last 8 Hours Ventilator Tidal Volume 500 Setting Ventilator Tidal Volume 500 Setting Ventilator Tidal Volume 500 Setting Ventilator Tidal Volume 500 Setting Ventilator Tidal Volume 500 Setting Ventilator Tidal Volume 500 Setting Ventilator Tidal Volume 500 Setting Ventilator Tidal Volume 500 Setting Ventilator Tidal Volume 500 Setting Ventilator Tidal Volume 500 Setting Ventilator Tidal Volume 500 Setting Ventilator Respiratory Rate 18 Setting Ventilator Respiratory Rate 18 Setting Ventilator Respiratory Rate 18 Setting Ventilator Respiratory Rate 18 Setting Ventilator Respiratory Rate 18 Setting Ventilator Respiratory Rate 18 Setting Ventilator Respiratory Rate 18 Setting Ventilator Respiratory Rate 18 Setting Ventilator Respiratory Rate 18 Setting Ventilator Respiratory Rate 18 Setting Ventilator Respiratory Rate 18 Setting Actual Respiratory Rate 18 Actual Respiratory Rate 18 Actual Respiratory Rate 18 Actual Respiratory Rate 18 Actual Respiratory Rate 18 Actual Respiratory Rate 18 Actual Respiratory Rate 18 Actual Respiratory Rate 18 Actual Respiratory Rate 18 Actual Respiratory Rate 18 Positive End Expiratory 8 Pressure Positive End Expiratory 8 Pressure Positive End Expiratory 8 Pressure Positive End Expiratory 8 Pressure Positive End Expiratory 8 Pressure Positive End Expiratory 8 Pressure Positive End Expiratory 8 Pressure Positive End Expiratory 8 Pressure Positive End Expiratory 8 Pressure Positive End Expiratory 8 Pressure Positive End Expiratory 8 Pressure Peak Inspiratory Airway 41 Pressure Peak Inspiratory Airway 42 Pressure Peak Inspiratory Airway 45 Pressure Peak Inspiratory Airway 45 Pressure Peak Inspiratory Airway 46 Pressure Results - Laboratory Findings CBC and BMP: 06/24/18 03:00 06/24/18 10:00 ABG ABG pH 7.37 pH Units (7.32-7.45) 06/24/18 05:13 ABG pCO2 44 mmHg (35-45) 06/24/18 05:13 ABG pO2 78 mmHg (85-104) L 06/24/18 05:13 ABG O2 Saturation 95 % (95-98) 06/24/18 05:13 PT/INR, D-dimer PT 16.7 Seconds (9.4-12.1) H 06/22/18 03:45 D-Dimer 3465 ng/mLFEU (0-500) H 06/18/18 08:08 Abnormal lab findings: Abnormal lab results WBC 25.3 K/mcL (4.3-11.1) H 06/24/18 03:00 RBC 3.02 M/mcL (4.19-5.50) L 06/24/18 03:00 Hgb 9.4 g/dL (12.9-16.9) L 06/24/18 03:00 Hct 28.6 % (37.5-50.1) L 06/24/18 03:00 RDW 16.6 % (11.5-14.5) H 06/24/18 03:00 Immature Gran % 14.0 % (0-4) H 06/24/18 03:00 Band Neutrophils % 10.0 % (0-4) H 06/23/18 03:15 Neutrophils # 18.2 K/mcL (1.6-8.9) H 06/24/18 03:00 Nucleated RBCs/100 WBC 0.4 /100 WBC (0) H 06/24/18 03:00 Toxic Granulation Present (Not Present) A 06/18/18 03:05 Toxic Vacuolation Present (Not Present) A 06/22/18 03:45 Large Platelets Present (Not Present) A 06/23/18 03:15 Immature Plt Fraction 27.2 % (1.1-6.1) H 06/22/18 03:45 PT 16.7 Seconds (9.4-12.1) H 06/22/18 03:45 APTT 62.8 Seconds (26.0-36.0) H 06/23/18 08:00 Fibrinogen 578 mg/dL (169-393) H 06/18/18 08:08 D-Dimer 3465 ng/mLFEU (0-500) H 06/18/18 08:08 ABG pO2 78 mmHg (85-104) L 06/24/18 05:13 ABG Total CO2 27 mEq/L (20-26) H 06/24/18 05:13 Sodium 133 mEq/L (136-145) L 06/24/18 03:00 BUN 21 mg/dL (6-20) H 06/24/18 03:00 Creatinine 1.37 mg/dL (0.70-1.30) H 06/24/18 03:00 Est GFR (Non-Af Amer) 54 (> 60) L 06/24/18 03:00 Glucose 149 mg/dL (70-105) H 06/24/18 03:00 POC Glucose 130 mg/dL (70-99) H 06/24/18 06:40 Calcium 7.4 mg/dL (8.6-10.3) L 06/24/18 03:00 Venous Ioniz Calcium 1.01 mmol/L (1.15-1.35) L 06/24/18 03:13 Phosphorus 2.4 mg/dL (2.7-4.5) L 06/24/18 03:00 Direct Bilirubin 0.4 mg/dL (0.0-0.2) H 06/23/18 03:15 Alkaline Phosphatase 126 Units/L (34-104) H 06/24/18 03:00 Troponin I 0.92 ng/mL (< 0.04) H* 06/17/18 22:33 Serum Total Protein 5.7 g/dL (6.4-8.9) L 06/24/18 03:00 Albumin 2.6 g/dL (3.5-5.7) L 06/24/18 03:00 Albumin/Globulin Ratio 0.8 (1.1-2.2) L 06/24/18 03:00 Amylase 20 Units/L (29-103) L 06/23/18 16:27 Procalcitonin 107.11 ng/mL (<=0.07) H 06/17/18 16:40 Vancomycin Trough 18 mcg/mL (5-10) H 06/19/18 08:20 Urine Opiates Screen Positive ng/mL (Bpwlfh=785) H 06/18/18 10:37 U Benzodiazepines Scrn Positive ng/mL (Rsjief=509) H 06/18/18 10:37 - Microbiology Findings Microbiology Findings: Microbiology, Last 48 Hours 06/18/18 20:45 Sputum Culture - Preliminary Sputum - Clinical Findings Intake & Output: Intake & Output 06/23/18 06/23/18 06/24/18 15:59 23:59 07:59 Intake Total 660.1 / 660.1 1759.9 / 1759.9 650.0 / 650.0 Output Total 1262 / 1262 1622 / 1622 1428 / 1428 Balance -601.9 / -601.9 137.9 / 137.9 -778.0 / -778.0 Weight 136.7 kg - VTE Documentation of Mechanical Device: Intermittent pneumatic compression device
[2018-06-24] MEDS: Chlorhexidine Rinse 15 ML MOUTHWASH MM SCH ×2 (08:12→20:08)
[2018-06-24] MEDS ORDERED: Aminoglycoside Consult 1 EACH MC ONE (08:12)
[2018-06-24] MEDS: Fluconazole 400 MG/200 ML IVPB SCH (08:12)
[2018-06-24] MEDS: Sennosides/Docusate Sodium TABLET PO SCH ×2 (08:12→20:08)
[2018-06-24] MEDS: Nystatin SUSP 5 ML UD.LIQ PO SCH ×4 (08:12→20:08)
[2018-06-24] MEDS: *HR* Heparin 5,000 UNIT/ML VIAL SQ SCH ×2 (08:12→17:19)
[2018-06-24] MEDS: Pantoprazole 40 MG VIAL IVP SCH (08:12)
--- NOTE | 2018-06-24 08:46 | Nephrology Progress Note ---
Date of Encounter: 06/24/18 Time of Encounter: 08:41 - Assessment and Plan (1) LUCILA (acute kidney injury) Current Visit: Yes Status: Acute Acute kidney injury on Kimmie Patient's chemistries have remained stable and he appears to be doing well. Continues to have some mild hypotension, however his pressors have decreased. Currently on only Levophed only Volume Status so appears to be overloaded, but it is improving compared to yesterday. UOP is still negligible, but is up to 20/hr Kimmie mode to CCVHDF, Effluent rate 14, Net + 50-100. Attempt UF/fluid removal. CXR Shows negligible change in pulmonary edema. PEEP down to 8 Hold Argatroban as we feel that the potential risks for systemic anticoagulation outweigh the potential benefit to filter clotting. No substantial clotting issues yet Avoid citrate secondary to liver dysfunction Renal dose medications Plan Patient is still not a candidate for intermittent hemodialysis due to low blood pressures, however anticipate he may become eligible in the next 24-48 hours if BP continues to rise. -For now, increase dialysate/replacement rate in order to achieve effluent rate of 25 -Name for UF Net +100-150 for enhanced volume status control -Increased blood flow rate to 250 in order to decrease clotting rate ----Still aim to avoid systemic anticoagulation as able, however LFTs are trending downwards as citrate may become an option soon, or the patient may be able to tolerate intermittent hemodialysis in the near future. (2) Acute respiratory failure with hypoxemia Current Visit: Yes Status: Acute Currently intubated, management per primary team We will continue to manage fluid removal with Kimmie Currently removing at net + 100-150 (3) Septic shock Current Visit: Yes Status: Acute Septic shock with unknown source and multiple organ system dysfunction Patient's blood pressure continues to improve, pressor use to use to drop Management per primary team (4) Anemia Current Visit: Yes Status: Acute Acute blood loss anemia We will continue to monitor this, consider addition of iron supplementation Qualifiers: Anemia type: other cause Other causes of anemia: acute posthemorrhagic Qualified Code(s): D62 - Acute posthemorrhagic anemia Subjective Principal diagnosis: septic shock Interval history: The patient is resting in bed. He he is sedated and on the mechanical ventilation. This was transitioned to see CCVHDF yesterday, and his argatroban was held. He has thus far had no acute complications. There are no acute complaints this morning. Objective - Vital Signs Vital signs: Vital Signs Temp Pulse Resp BP Pulse Ox 06/24/18 08:00 83 18 101/60 94 06/24/18 07:28 18 94 06/24/18 07:00 98.9 F 84 18 96/59 94 06/24/18 06:08 78 18 91/57 94 06/24/18 05:14 18 91/56 94 06/24/18 05:04 76 18 94/59 94 06/24/18 04:02 79 18 88/62 94 06/24/18 03:36 18 94 06/24/18 03:00 97.7 F 86 18 100/75 92 06/24/18 02:11 80 18 87/57 93 06/24/18 01:05 18 89/61 93 06/24/18 01:00 92 18 89/61 93 06/24/18 00:00 84 18 92/60 93 06/23/18 23:17 18 91 06/23/18 23:00 96.7 F L 68 18 83/56 93 06/23/18 22:00 70 18 98/65 95 06/23/18 21:26 18 93/62 93 06/23/18 21:06 18 98/65 94 06/23/18 21:00 97 F L 72 18 97/57 93 06/23/18 20:13 76 18 86/56 93 06/23/18 19:34 18 90/50 93 06/23/18 19:00 96.5 F L 67 19 89/63 92 06/23/18 18:00 65 19 105/66 92 06/23/18 17:00 68 19 99/66 93 06/23/18 16:00 69 19 98/65 93 06/23/18 15:38 18 93 06/23/18 15:00 96.3 F L 69 18 98/61 93 06/23/18 14:00 67 19 99/62 94 06/23/18 13:00 73 19 98/61 94 06/23/18 12:00 82 18 103/58 92 06/23/18 11:07 18 93 06/23/18 11:00 96.2 F L 72 18 91/48 94 06/23/18 10:00 67 24 87/56 93 06/23/18 09:36 24 93 06/23/18 09:00 78 24 92/54 92 Intake and Output 06/23/18 06/24/18 06/24/18 23:59 07:59 15:59 Intake Total 1759.9 / 1759.9 650.0 / 650.0 Output Total 1622 / 1622 1428 / 1428 143 / 143 Balance 137.9 / 137.9 -778.0 / -778.0 -126 / -126 Intake: IV Fluids 831.9 / 831.9 530.0 / 530.0 PrismaSATE BGK 4/2.5 5,000 ML @ 0 / 0 0 / 0 1000 mls/hr CRRT [facility] Rx#: [id number] Argatroban 250 MG In Dextrose 5 0 / 0 % 250 ML @ 2 MCG/KG/MIN 16.59 mls/hr IVC CONT NADIA Rx#: [id number] FentaNYL (PF) 2,500 MCG In 66 / 66 Empty Bag 1 Each @ 50 MCG/HR 1 mls/hr IVC [facility] Rx#: [id number] HumuLIN R 100 UNIT In 0.9 % 12.9 / 12.9 9.0 / 9.0 Sodium Chloride 100 ML @ Per Protocol IVC CONT NADIA Rx#: [id number] Versed 50 MG In 0.9 % Sodium 153 / 153 147 / 147 Chloride 90 ML @ 2 MG/HR 4 mls/ hr IVC CONT NADIA Rx#:[id number] Levophed 8 MG In Dextrose 5% 225 / 225 111 / 111 250 ML @ 30 MCG/MIN 58.05 mls/ hr IVC CONT NADIA Rx#:[id number] Calcium Gluconate 1,000 MG In 0 110 / 110 .9 % Sodium Chloride 100 ML @ 220 mls/hr IVPB Q6HR PRN Rx#: [id number] Diflucan Premix 400 MG/200 ML 200 / 200 400 mg In 200 ml @ 200 mls/hr IVPB DAILY NADIA Rx#:[id number] Zosyn 3.375 GM In 0.9 % Sodium 175 / 175 125 / 125 Chloride (Mini-Bag +) 100 ML @ 25 mls/hr IVPB Q8H NADIA Rx#: [id number] Tube Feeding 88 / 88 120 / 120 Free Water 840 / 840 Output: Kimmie 1502 / 1502 1263 / 1263 117 / 117 Catheter 120 / 120 165 / 165 Other: Weight 136.7 kg Blood Glucose* 120 132 - General Appearance Exam: Gen: Vitals noted. No acute distress. Patient is sedated on ventilator HEENT: Normocephalic, atraumatic Neck: Supple. No adenopathy. Cardiac: RRR, no murmur, +S1/S2 Pulmonary: Lungs sounds are substantially more clear than yesterday, only mild crackles are heard in the bases bilaterally Abdomen: soft, nontender, no guarding Extremities: 1-2+ bilateral lower extremity edema, nontender calf, no cyanosis or clubbing Neuro: Patient is sedated on ventilator - Lab 06/24/18 03:00 06/24/18 10:00 Most recent lab results ABG pH 7.37 pH Units (7.32-7.45) 06/24/18 05:13 ABG pCO2 44 mmHg (35-45) 06/24/18 05:13 ABG pO2 78 mmHg (85-104) L 06/24/18 05:13 ABG HCO3 26 mEq/L (21-27) 06/24/18 05:13 ABG O2 Saturation 95 % (95-98) 06/24/18 05:13 Calcium 7.4 mg/dL (8.6-10.3) L 06/24/18 03:00 Phosphorus 2.4 mg/dL (2.7-4.5) L 06/24/18 03:00 Magnesium 2.5 mg/dL (1.6-2.6) 06/24/18 03:00 Urine Sodium 128.8 mEq/L 06/17/18 18:15 - VTE Documentation of Mechanical Device: Intermittent pneumatic compression device Consult Discharge Plan - Plan Referrals: Sheryl Stahl CNP [Primary Care Provider] -
[2018-06-24] MEDS: Insulin Human Regular 100 UNIT in 0.9 % Sodium Chloride 100 ML IVC SCH (09:47)
--- NOTE | 2018-06-24 10:10 | Infectious Disease Progress No ---
Date of Encounter: 06/24/18 Time of Encounter: 08:52 - Assessment and Plan (1) Septic shock Current Visit: Yes Status: Acute The patient had 4 SIRS criteria plus lactic acidosis, acute kidney injury, acute encephalopathy, and hypotension requiring vasopressors. Likely secondary to candidemia, UTI, possible pneumonia. There is also a concern that there is an underlying infectious etiology that has not been identified given the critical nature of this patient. Improved. Leukocytosis improved today. Has developed hypothermia requiring the use of the warming blanket. Tachycardia resolved. Remains intubated and sedated so unable to assess his mental status. Acute kidney injury improved. Blood cultures obtained 06/17/18 are +2 out of 2 sets for Marisela albicans, nation- sensitive. Repeat blood cultures obtained 06/19/18 are NGTD 2 sets. Etiology of worsening leukocytosis unclear. Bandemia has resolved today. He did receive 4 days of steroids, which were stopped 06/19/18: lag vs. other. Continue to trend. No evidence of skin/soft tissue infection. He does have some new breakdown to the buttocks, but no clinical evidence of infection. Get CT of the chest, abdomen, and pelvis in the AM. --> showed bladder wall thickening concerning for cystitis, bilateral pleural effusions with likely atelectasis, gallbladder sludge, possible constipation, and mediastinal and peripancreatic lymphadenopathy, likely reactive. CT head showed bilateral ethmoisd and sphenoid sinusitis, but no intracranial abnormality. Check amylase and lipase.--> normal. Repeat blood cultures x 2 sets now peripherally. Check HIV.--> nonreactive. Continue Vancomycin IV. Pharmacy to dose. Goal trough ~15. Continue Zosyn 3.375 grams IV Q8H. Duration of treatment depends on the clinical picture. (2) Candidemia Current Visit: Yes Status: Acute Causative organism: Marisela albicans. Source: unclear. CT of the abdomen and pelvis is negative. He has no indwelling lines or catheters. His urine culture is positive for C. albicans. Blood cultures obtained 06/17/18 are +2 out of 2 sets for Marisela albicans, nation- sensitive. Repeat blood cultures obtained 06/19/18 are NGTD 2 sets. Continue fluconazole. Will ask pharmacy to assist with dosing for CRRT. Repeat LFTs normal. Duration of treatment depends on the clinical picture. Monitor liver function tests closely. Recommend ophthalmology to evaluate once patient stabilizes. (3) Pneumonia Current Visit: Yes Status: Ruled-out Location: Bilateral lower lobes. Causative organism: Unclear. Consider aspiration since the patient had altered mental status and was recently intubated. CT of the chest showed bilateral lower lobe infiltrates versus atelectasis. The patient does have a large amount of secretions coming from his ET tube. Discussed with the pulmonary team. Concern for pneumonia from their standpoint. MRSA screen completed 06/17/18 is negative. Sputum culture is NGTD. Check S. pneumo and Legionella UAT.--> negative. Check RIP.--> negative. Repeat CXR 06/23/18 showed mild pulmonary vascular congestion and atelectasis and mild pleural effusion at the right lung base, increased. CT scan of the chest 06/23/18 negative for PNA. Given that the patient continues to have septic shock and required vasopressors , we will continue vancomycin IV for now. Pharmacy to dose. Goal trough approximately 1 Continue Zosyn 3.375 g IV Q8H. Duration of treatment depends on the clinical picture. Monitor renal function and for drug toxicity and dose-adjust antibiotics. Qualifiers: Pneumonia type: due to unspecified organism Laterality: bilateral Lung location: lower lobe of lung Qualified Code(s): J18.1 - Lobar pneumonia, unspecified organism (4) UTI (urinary tract infection) Current Visit: Yes Status: Acute Causative organism: C. albicans. Per the patient's , asymptomatic prior to admission. Continue fluconazole as above. Qualifiers: Urinary tract infection type: site unspecified Hematuria presence: without hematuria Qualified Code(s): N39.0 - Urinary tract infection, site not specified (5) Encephalopathy Current Visit: Yes Status: Acute Etiology unclear, but likely related to sepsis. Per the patient's , the patient did have any complaints of neck pain, stiffness, or headache. Unable to assess mental status since the patient remains intubated and sedated. CT head negative for intracranial abnormality. (6) LUCILA (acute kidney injury) Current Visit: Yes Status: Acute Likely multifactorial: sepsis + hypotension + other. CRRT started 06/19/18. Creatinine improved. Urine output improved. Nephrology consulted and following. Continue to trend. Dose-adjust medications. (7) Lactic acidosis Current Visit: Yes Status: Resolved Likely secondary to sepsis. Resolved. (8) Thrombocytopenia Current Visit: Yes Status: Resolved Likely secondary to sepsis. LFTs abnormal on admission. Repeat LFTs normal. Improved. Continue to trend. No acute bleeding noted on exam. Further workup and management per the primary team. (9) Acute respiratory failure with hypoxemia Current Visit: Yes Status: Acute Likely secondary to PNA vs. pulmonary edema. Currently intubated. Vent management per the pulmonary team. (10) Systolic heart failure Current Visit: Yes Status: Acute TTE was sub-optimal, but showed approximate EF 20%. Qualifiers: Heart failure chronicity: unspecified Qualified Code(s): I50.20 - Unspecified systolic (congestive) heart failure (11) Hypokalemia Current Visit: Yes Status: Resolved Resolved. (12) Elevated troponin Current Visit: Yes Status: Acute Management per the primary team. (13) Type 2 diabetes mellitus Current Visit: Yes Status: Chronic Recommend aggressive glucose monitoring and control. Management per the primary team. Qualifiers: Diabetes mellitus ferry terminal agent insulin use: with ferry terminal agent use Diabetes mellitus complication status: with unspecified complications Qualified Code(s) : E11.8 - Type 2 diabetes mellitus with unspecified complications; Z79.4 - ferry terminal agent (current) use of insulin (14) COPD (chronic obstructive pulmonary disease) Current Visit: Yes Status: Chronic Qualifiers: COPD type: emphysema Emphysema type: unspecified Qualified Code(s): J43.9 - Emphysema, unspecified (15) Oral lesion Current Visit: Yes Status: Acute Noted to the tongue. Check swab PCR. (16) Sinusitis Current Visit: Yes Status: Acute CT of the head 06/23/18 showed sinusitis of the bilateral sphenoid and ethmoid sinuses. Causative organism unclear. Not sure that this is contributing to the patient's clinical picture, but the Vanc and Zosyn should be adequate coverage to treat this as well. Qualifiers: Sinusitis location: unspecified location Chronicity: acute Recurrence: non-recurrent Qualified Code(s): J01.90 - Acute sinusitis, unspecified - Subjective Interval history: Patient seen and examined. No acute events noted overnight. Patient remains intubated and sedated. Minimally responsive to verbal stimuli, but does not follow commands or attempt to communicate. Continues to require Levophed to maintain adequate perfusion. Tube feeds started and tolerating well with no residuals per nursing. Small BM yesterday. SOLEDAD started Saturday. Urine output improved. Infect Dis PN-Objective Data - Labs CBC & Chem 7: 06/25/18 03:15 06/25/18 03:15 Labs: Laboratory Results - last 24 hr 06/20/18 06/23/18 06/23/18 03:33 08:10 10:00 WBC RBC Hgb Hct MCV MCH MCHC RDW Plt Count MPV Immature Gran % Seg Neutrophils % Lymphocytes % Monocytes % Eosinophils % Basophils % Neutrophils # Lymphocytes # Monocytes # Eosinophils # Basophils # Nucleated RBCs/100 WBC Platelet Estimate Sample Site ABG pH ABG pCO2 ABG pO2 ABG HCO3 ABG Total CO2 ABG O2 Saturation ABG Base Excess Michael Test Respiration Rate O2 Delivery Device Blood Gas Modality Inspired O2 Tidal Volume PEEP Sodium 132 L Potassium 4.4 Chloride 100 Carbon Dioxide 27 BUN 22 H Creatinine 1.45 H Est GFR ( Amer) > 60 Est GFR (Non-Af Amer) 51 L BUN/Creatinine Ratio 15 Glucose 160 H POC Glucose Calculated Osmolality 281 Calcium 7.4 L Venous Ioniz Calcium 0.85 L Phosphorus 3.0 Magnesium Total Bilirubin AST ALT Alkaline Phosphatase Creatine Kinase Serum Total Protein Albumin 2.7 L Globulin Albumin/Globulin Ratio Amylase Lipase Random Vancomycin Hep Bs Antigen Nonreactive Hep Bs Antibody 0.00 HIV Ag/Ab Combo Qual Specimen Rejected 06/23/18 06/23/18 06/23/18 11:00 11:37 11:55 WBC RBC Hgb Hct MCV MCH MCHC RDW Plt Count MPV Immature Gran % Seg Neutrophils % Lymphocytes % Monocytes % Eosinophils % Basophils % Neutrophils # Lymphocytes # Monocytes # Eosinophils # Basophils # Nucleated RBCs/100 WBC Platelet Estimate Sample Site R Radial ABG pH 7.31 L ABG pCO2 53 H ABG pO2 69 L ABG HCO3 26 ABG Total CO2 28 H ABG O2 Saturation 91 L ABG Base Excess 0 Michael Test N/A Respiration Rate 18 O2 Delivery Device Adult Vent Blood Gas Modality ASSIST CONTROL Inspired O2 55.0 Tidal Volume 500 PEEP 8 Sodium Potassium Chloride Carbon Dioxide BUN Creatinine Est GFR ( Amer) Est GFR (Non-Af Amer) BUN/Creatinine Ratio Glucose POC Glucose 142 H 149 H Calculated Osmolality Calcium Venous Ioniz Calcium Phosphorus Magnesium Total Bilirubin AST ALT Alkaline Phosphatase Creatine Kinase Serum Total Protein Albumin Globulin Albumin/Globulin Ratio Amylase Lipase Random Vancomycin Hep Bs Antigen Hep Bs Antibody HIV Ag/Ab Combo Qual Specimen Rejected 06/23/18 06/23/18 06/23/18 12:57 13:59 14:57 WBC RBC Hgb Hct MCV MCH MCHC RDW Plt Count MPV Immature Gran % Seg Neutrophils % Lymphocytes % Monocytes % Eosinophils % Basophils % Neutrophils # Lymphocytes # Monocytes # Eosinophils # Basophils # Nucleated RBCs/100 WBC Platelet Estimate Sample Site ABG pH ABG pCO2 ABG pO2 ABG HCO3 ABG Total CO2 ABG O2 Saturation ABG Base Excess Michael Test Respiration Rate O2 Delivery Device Blood Gas Modality Inspired O2 Tidal Volume PEEP Sodium Potassium Chloride Carbon Dioxide BUN Creatinine Est GFR ( Amer) Est GFR (Non-Af Amer) BUN/Creatinine Ratio Glucose POC Glucose 152 H 143 H 137 H Calculated Osmolality Calcium Venous Ioniz Calcium Phosphorus Magnesium Total Bilirubin AST ALT Alkaline Phosphatase Creatine Kinase Serum Total Protein Albumin Globulin Albumin/Globulin Ratio Amylase Lipase Random Vancomycin Hep Bs Antigen Hep Bs Antibody HIV Ag/Ab Combo Qual Specimen Rejected 06/23/18 06/23/18 06/23/18 15:53 15:55 16:27 WBC RBC Hgb Hct MCV MCH MCHC RDW Plt Count MPV Immature Gran % Seg Neutrophils % Lymphocytes % Monocytes % Eosinophils % Basophils % Neutrophils # Lymphocytes # Monocytes # Eosinophils # Basophils # Nucleated RBCs/100 WBC Platelet Estimate Sample Site ABG pH ABG pCO2 ABG pO2 ABG HCO3 ABG Total CO2 ABG O2 Saturation ABG Base Excess Michael Test Respiration Rate O2 Delivery Device Blood Gas Modality Inspired O2 Tidal Volume PEEP Sodium 133 L Potassium 4.0 Chloride 102 Carbon Dioxide 28 BUN 22 H Creatinine 1.40 H Est GFR ( Amer) > 60 Est GFR (Non-Af Amer) 53 L BUN/Creatinine Ratio 16 Glucose 141 H POC Glucose 130 H Calculated Osmolality 282 Calcium 7.3 L Venous Ioniz Calcium Phosphorus 2.5 L Magnesium Total Bilirubin AST ALT Alkaline Phosphatase Creatine Kinase 210 Serum Total Protein Albumin 2.6 L Globulin Albumin/Globulin Ratio Amylase 20 L Lipase 14 Random Vancomycin Hep Bs Antigen Hep Bs Antibody HIV Ag/Ab Combo Qual Specimen Rejected Labelling 06/23/18 06/23/18 06/23/18 16:37 17:03 17:58 WBC RBC Hgb Hct MCV MCH MCHC RDW Plt Count MPV Immature Gran % Seg Neutrophils % Lymphocytes % Monocytes % Eosinophils % Basophils % Neutrophils # Lymphocytes # Monocytes # Eosinophils # Basophils # Nucleated RBCs/100 WBC Platelet Estimate Sample Site ABG pH ABG pCO2 ABG pO2 ABG HCO3 ABG Total CO2 ABG O2 Saturation ABG Base Excess Michael Test Respiration Rate O2 Delivery Device Blood Gas Modality Inspired O2 Tidal Volume PEEP Sodium Potassium Chloride Carbon Dioxide BUN Creatinine Est GFR ( Amer) Est GFR (Non-Af Amer) BUN/Creatinine Ratio Glucose POC Glucose 136 H 120 H Calculated Osmolality Calcium Venous Ioniz Calcium 1.02 L Phosphorus Magnesium Total Bilirubin AST ALT Alkaline Phosphatase Creatine Kinase Serum Total Protein Albumin Globulin Albumin/Globulin Ratio Amylase Lipase Random Vancomycin Hep Bs Antigen Hep Bs Antibody HIV Ag/Ab Combo Qual Specimen Rejected 06/23/18 06/23/18 06/23/18 19:06 20:00 20:11 WBC RBC Hgb Hct MCV MCH MCHC RDW Plt Count MPV Immature Gran % Seg Neutrophils % Lymphocytes % Monocytes % Eosinophils % Basophils % Neutrophils # Lymphocytes # Monocytes # Eosinophils # Basophils # Nucleated RBCs/100 WBC Platelet Estimate Sample Site ABG pH ABG pCO2 ABG pO2 ABG HCO3 ABG Total CO2 ABG O2 Saturation ABG Base Excess Michael Test Respiration Rate O2 Delivery Device Blood Gas Modality Inspired O2 Tidal Volume PEEP Sodium Potassium Chloride Carbon Dioxide BUN Creatinine Est GFR ( Amer) Est GFR (Non-Af Amer) BUN/Creatinine Ratio Glucose POC Glucose 126 H 121 H Calculated Osmolality Calcium Venous Ioniz Calcium Phosphorus Magnesium Total Bilirubin AST ALT Alkaline Phosphatase Creatine Kinase Serum Total Protein Albumin Globulin Albumin/Globulin Ratio Amylase Lipase Random Vancomycin Hep Bs Antigen Hep Bs Antibody HIV Ag/Ab Combo Qual Nonreactive Specimen Rejected 06/23/18 06/23/18 06/23/18 20:42 21:30 21:51 WBC RBC Hgb Hct MCV MCH MCHC RDW Plt Count MPV Immature Gran % Seg Neutrophils % Lymphocytes % Monocytes % Eosinophils % Basophils % Neutrophils # Lymphocytes # Monocytes # Eosinophils # Basophils # Nucleated RBCs/100 WBC Platelet Estimate Sample Site ABG pH ABG pCO2 ABG pO2 ABG HCO3 ABG Total CO2 ABG O2 Saturation ABG Base Excess Michael Test Respiration Rate O2 Delivery Device Blood Gas Modality Inspired O2 Tidal Volume PEEP Sodium 133 L Potassium 4.1 Chloride 100 Carbon Dioxide 27 BUN 21 H Creatinine 1.23 Est GFR ( Amer) > 60 Est GFR (Non-Af Amer) > 60 BUN/Creatinine Ratio 17 Glucose 136 H POC Glucose 122 H 120 H Calculated Osmolality 281 Calcium 7.3 L Venous Ioniz Calcium Phosphorus 2.8 Magnesium Total Bilirubin AST ALT Alkaline Phosphatase Creatine Kinase Serum Total Protein Albumin 2.6 L Globulin Albumin/Globulin Ratio Amylase Lipase Random Vancomycin Hep Bs Antigen Hep Bs Antibody HIV Ag/Ab Combo Qual Specimen Rejected 06/23/18 06/23/18 06/24/18 22:57 23:43 01:31 WBC RBC Hgb Hct MCV MCH MCHC RDW Plt Count MPV Immature Gran % Seg Neutrophils % Lymphocytes % Monocytes % Eosinophils % Basophils % Neutrophils # Lymphocytes # Monocytes # Eosinophils # Basophils # Nucleated RBCs/100 WBC Platelet Estimate Sample Site ABG pH ABG pCO2 ABG pO2 ABG HCO3 ABG Total CO2 ABG O2 Saturation ABG Base Excess Michael Test Respiration Rate O2 Delivery Device Blood Gas Modality Inspired O2 Tidal Volume PEEP Sodium Potassium Chloride Carbon Dioxide BUN Creatinine Est GFR ( Amer) Est GFR (Non-Af Amer) BUN/Creatinine Ratio Glucose POC Glucose 125 H 129 H 135 H Calculated Osmolality Calcium Venous Ioniz Calcium Phosphorus Magnesium Total Bilirubin AST ALT Alkaline Phosphatase Creatine Kinase Serum Total Protein Albumin Globulin Albumin/Globulin Ratio Amylase Lipase Random Vancomycin Hep Bs Antigen Hep Bs Antibody HIV Ag/Ab Combo Qual Specimen Rejected 06/24/18 06/24/18 06/24/18 02:48 03:00 03:00 WBC 25.3 H RBC 3.02 L Hgb 9.4 L Hct 28.6 L MCV 94.7 MCH 31.1 MCHC 32.9 RDW 16.6 H Plt Count 149 MPV 10.7 Immature Gran % 14.0 H Seg Neutrophils % 72.0 Lymphocytes % 8.2 Monocytes % 4.8 Eosinophils % 0.9 Basophils % 0.1 Neutrophils # 18.2 H Lymphocytes # 2.1 Monocytes # 1.2 Eosinophils # 0.2 Basophils # 0.0 Nucleated RBCs/100 WBC 0.4 H Platelet Estimate Normal Sample Site ABG pH ABG pCO2 ABG pO2 ABG HCO3 ABG Total CO2 ABG O2 Saturation ABG Base Excess Michael Test Respiration Rate O2 Delivery Device Blood Gas Modality Inspired O2 Tidal Volume PEEP Sodium 133 L Potassium 4.1 Chloride 100 Carbon Dioxide 27 BUN 21 H Creatinine 1.37 H Est GFR ( Amer) > 60 Est GFR (Non-Af Amer) 54 L BUN/Creatinine Ratio 15 Glucose 149 H POC Glucose 129 H Calculated Osmolality 282 Calcium 7.4 L Venous Ioniz Calcium Phosphorus 2.4 L Magnesium 2.5 Total Bilirubin 0.7 AST 21 ALT 18 Alkaline Phosphatase 126 H Creatine Kinase Serum Total Protein 5.7 L Albumin 2.6 L Globulin 3.1 Albumin/Globulin Ratio 0.8 L Amylase Lipase Random Vancomycin 12 Hep Bs Antigen Hep Bs Antibody HIV Ag/Ab Combo Qual Specimen Rejected 06/24/18 06/24/18 06/24/18 03:13 03:58 04:55 WBC RBC Hgb Hct MCV MCH MCHC RDW Plt Count MPV Immature Gran % Seg Neutrophils % Lymphocytes % Monocytes % Eosinophils % Basophils % Neutrophils # Lymphocytes # Monocytes # Eosinophils # Basophils # Nucleated RBCs/100 WBC Platelet Estimate Sample Site ABG pH ABG pCO2 ABG pO2 ABG HCO3 ABG Total CO2 ABG O2 Saturation ABG Base Excess Michael Test Respiration Rate O2 Delivery Device Blood Gas Modality Inspired O2 Tidal Volume PEEP Sodium Potassium Chloride Carbon Dioxide BUN Creatinine Est GFR ( Amer) Est GFR (Non-Af Amer) BUN/Creatinine Ratio Glucose POC Glucose 129 H 126 H Calculated Osmolality Calcium Venous Ioniz Calcium 1.01 L Phosphorus Magnesium Total Bilirubin AST ALT Alkaline Phosphatase Creatine Kinase Serum Total Protein Albumin Globulin Albumin/Globulin Ratio Amylase Lipase Random Vancomycin Hep Bs Antigen Hep Bs Antibody HIV Ag/Ab Combo Qual Specimen Rejected 06/24/18 06/24/18 06/24/18 05:13 05:51 06:40 WBC RBC Hgb Hct MCV MCH MCHC RDW Plt Count MPV Immature Gran % Seg Neutrophils % Lymphocytes % Monocytes % Eosinophils % Basophils % Neutrophils # Lymphocytes # Monocytes # Eosinophils # Basophils # Nucleated RBCs/100 WBC Platelet Estimate Sample Site R Radial ABG pH 7.37 ABG pCO2 44 ABG pO2 78 L ABG HCO3 26 ABG Total CO2 27 H ABG O2 Saturation 95 ABG Base Excess 0 Michael Test N/A Respiration Rate 18 O2 Delivery Device Adult Vent Blood Gas Modality PRVC Inspired O2 55.0 Tidal Volume 500 PEEP 8 Sodium Potassium Chloride Carbon Dioxide BUN Creatinine Est GFR ( Amer) Est GFR (Non-Af Amer) BUN/Creatinine Ratio Glucose POC Glucose 132 H 130 H Calculated Osmolality Calcium Venous Ioniz Calcium Phosphorus Magnesium Total Bilirubin AST ALT Alkaline Phosphatase Creatine Kinase Serum Total Protein Albumin Globulin Albumin/Globulin Ratio Amylase Lipase Random Vancomycin Hep Bs Antigen Hep Bs Antibody HIV Ag/Ab Combo Qual Specimen Rejected 06/24/18 06/24/18 06/24/18 07:56 08:48 10:03 WBC RBC Hgb Hct MCV MCH MCHC RDW Plt Count MPV Immature Gran % Seg Neutrophils % Lymphocytes % Monocytes % Eosinophils % Basophils % Neutrophils # Lymphocytes # Monocytes # Eosinophils # Basophils # Nucleated RBCs/100 WBC Platelet Estimate Sample Site ABG pH ABG pCO2 ABG pO2 ABG HCO3 ABG Total CO2 ABG O2 Saturation ABG Base Excess Michael Test Respiration Rate O2 Delivery Device Blood Gas Modality Inspired O2 Tidal Volume PEEP Sodium Potassium Chloride Carbon Dioxide BUN Creatinine Est GFR ( Amer) Est GFR (Non-Af Amer) BUN/Creatinine Ratio Glucose POC Glucose 140 H 148 H 142 H Calculated Osmolality Calcium Venous Ioniz Calcium Phosphorus Magnesium Total Bilirubin AST ALT Alkaline Phosphatase Creatine Kinase Serum Total Protein Albumin Globulin Albumin/Globulin Ratio Amylase Lipase Random Vancomycin Hep Bs Antigen Hep Bs Antibody HIV Ag/Ab Combo Qual Specimen Rejected Cultures: Cultures 06/18/18 20:45 Sputum Culture - Final Sputum 06/20/18 11:30 Legionella Antigen - Final Urine,[place] Streptococcus pneumoniae Antigen (M - Final 06/19/18 12:46 Blood Culture - Preliminary Peripheral Venipuncture Culture is incubating and being continuously monitored for growth. Final report to follow. 06/19/18 12:46 Blood Culture - Preliminary Peripheral Venipuncture Culture is incubating and being continuously monitored for growth. Final report to follow. Serology 06/23/18 06/23/18 06/20/18 Range/Units 20:00 08:10 11:30 Urine Osmolality (300-1090) mOsm/kg Urine Sodium mEq/L Urine Potassium mEq/L Urine Chloride mEq/L Nasal Screen MRSA (PCR) (Negative) Chlamy pneumoniae PCR Not Detected (Not Detect) Adenovirus (PCR) Not Detected (Not Detect) B. pertussis DNA (PCR) Not Detected (Not Detect) B.parapertussis DNA PCR Not Detected (Not Detect) Coronavirus OC43 (PCR) Not Detected (Not Detect) Coronavirus HKU1 (PCR) Not Detected (Not Detect) Coronavirus 229E (PCR) Not Detected (Not Detect) Coronavirus NL63 (PCR) Not Detected (Not Detect) Hep Bs Antigen Nonreactive (Nonreactive) Hep Bs Antibody 0.00 mIU/mL HIV Ag/Ab Combo Qual Nonreactive (Nonreactive) Human Metapneumovir PCR Not Detected (Not Detect) Influenza A (H1) PCR Not Detected (Not Detect) Influ A (H1N1/09) PCR Not Detected (Not Detect) Influenza A (H3) PCR Not Detected (Not Detect) Influenza A Untype (PCR) Not Detected (Not Detect) Influenza Type B (PCR) Not Detected (Not Detect) M.pneumoniae DNA (PCR) Not Detected (Not Detect) Parainfluenza 1 (PCR) Not Detected (Not Detect) Parainfluenza 2 (PCR) Not Detected (Not Detect) Parainfluenza 3 (PCR) Not Detected (Not Detect) Parainfluenza 4 (PCR) Not Detected (Not Detect) RSV (PCR) Not Detected (Not Detect) Entero/Rhino (PCR) Not Detected (Not Detect) 06/18/18 06/18/18 06/17/18 Range/Units 10:28 10:28 18:15 Urine Osmolality 343 (300-1090) mOsm/kg Urine Sodium 128.8 mEq/L Urine Potassium 36.5 7.5 mEq/L Urine Chloride 135 mEq/L Nasal Screen MRSA (PCR) (Negative) Chlamy pneumoniae PCR (Not Detect) Adenovirus (PCR) (Not Detect) B. pertussis DNA (PCR) (Not Detect) B.parapertussis DNA PCR (Not Detect) Coronavirus OC43 (PCR) (Not Detect) Coronavirus HKU1 (PCR) (Not Detect) Coronavirus 229E (PCR) (Not Detect) Coronavirus NL63 (PCR) (Not Detect) Hep Bs Antigen (Nonreactive) Hep Bs Antibody mIU/mL HIV Ag/Ab Combo Qual (Nonreactive) Human Metapneumovir PCR (Not Detect) Influenza A (H1) PCR (Not Detect) Influ A (H1N1/09) PCR (Not Detect) Influenza A (H3) PCR (Not Detect) Influenza A Untype (PCR) (Not Detect) Influenza Type B (PCR) (Not Detect) M.pneumoniae DNA (PCR) (Not Detect) Parainfluenza 1 (PCR) (Not Detect) Parainfluenza 2 (PCR) (Not Detect) Parainfluenza 3 (PCR) (Not Detect) Parainfluenza 4 (PCR) (Not Detect) RSV (PCR) (Not Detect) Entero/Rhino (PCR) (Not Detect) 06/17/18 06/17/18 Range/Units 11:56 11:30 Urine Osmolality (300-1090) mOsm/kg Urine Sodium mEq/L Urine Potassium mEq/L Urine Chloride mEq/L Nasal Screen MRSA (PCR) Negative (Negative) Chlamy pneumoniae PCR Not Detected (Not Detect) Adenovirus (PCR) Not Detected (Not Detect) B. pertussis DNA (PCR) Not Detected (Not Detect) B.parapertussis DNA PCR Not Detected (Not Detect) Coronavirus OC43 (PCR) Not Detected (Not Detect) Coronavirus HKU1 (PCR) Not Detected (Not Detect) Coronavirus 229E (PCR) Not Detected (Not Detect) Coronavirus NL63 (PCR) Not Detected (Not Detect) Hep Bs Antigen (Nonreactive) Hep Bs Antibody mIU/mL HIV Ag/Ab Combo Qual (Nonreactive) Human Metapneumovir PCR Not Detected (Not Detect) Influenza A (H1) PCR Not Detected (Not Detect) Influ A (H1N1/09) PCR Not Detected (Not Detect) Influenza A (H3) PCR Not Detected (Not Detect) Influenza A Untype (PCR) Not Detected (Not Detect) Influenza Type B (PCR) Not Detected (Not Detect) M.pneumoniae DNA (PCR) Not Detected (Not Detect) Parainfluenza 1 (PCR) Not Detected (Not Detect) Parainfluenza 2 (PCR) Not Detected (Not Detect) Parainfluenza 3 (PCR) Not Detected (Not Detect) Parainfluenza 4 (PCR) Not Detected (Not Detect) RSV (PCR) Not Detected (Not Detect) Entero/Rhino (PCR) Not Detected (Not Detect) - Impressions Impressions Abdomen/Pelvis CT 06/23/18 18:30 IMPRESSION: 1. Circumferential thickening of the urinary bladder wall with perivesicular inflammation. Please correlate with clinical symptoms of cystitis. 2. Small bilateral pleural effusions with bibasilar pulmonary airspace opacities, favored to be atelectasis. 3. Hyperdense material in the gallbladder lumen, likely sludge. 4. Mildly enlarged anterior mediastinal lymph node and peripancreatic nodes. In isolation, finding is nonspecific and may be reactive. Consider follow-up in 3-6 months to ensure resolution/stability. 5. Subcutaneous edema. Please correlate with clinical symptoms of constipation. 6. ETT tip 4 cm above the sanjeev. 7. Enteric catheter tip in the body of the stomach with side hole is distal to the GE junction. D/ / 06/23/2018 19:26:45 Jason Mendiola MD / selina Interpreting Provider: Jason Mendiola MD Chest CT 06/23/18 18:30 IMPRESSION: 1. Circumferential thickening of the urinary bladder wall with perivesicular inflammation. Please correlate with clinical symptoms of cystitis. 2. Small bilateral pleural effusions with bibasilar pulmonary airspace opacities, favored to be atelectasis. 3. Hyperdense material in the gallbladder lumen, likely sludge. 4. Mildly enlarged anterior mediastinal lymph node and peripancreatic nodes. In isolation, finding is nonspecific and may be reactive. Consider follow-up in 3-6 months to ensure resolution/stability. 5. Subcutaneous edema. Please correlate with clinical symptoms of constipation. 6. ETT tip 4 cm above the sanjeev. 7. Enteric catheter tip in the body of the stomach with side hole is distal to the GE junction. D/ / 06/23/2018 19:26:45 Jason Mendiola MD / selina Interpreting Provider: Jason Mendiola MD Head CT 06/23/18 18:30 IMPRESSION: No acute intracranial abnormality.Interval sinusitis as described. D/ / Shantanu Dominguez MD / Shantanu Dominguez MD Interpreting Provider: Shantanu Dominguez MD Chest X-Ray 06/24/18 04:00 IMPRESSION: Stable life support device positioning. No substantial change in effusions, basilar opacities and edema. D/ / Celio Simon / Celio Simon Interpreting Provider: Celio Simon Exam - Constitutional Vitals: Temp Pulse Resp BP Pulse Ox 98.9 F 83 18 101/60 94 06/24/18 07:00 06/24/18 08:00 06/24/18 08:00 06/24/18 08:00 06/24/18 08:00 General appearance: cooperative, no acute distress, obese - Head Head exam: Present: atraumatic, normal inspection, normocephalic - Eye Eye exam: Present: normal appearance, PERRL Pupils: Present: normal accommodation - ENT ENT exam: Present: mucous membranes moist Additional comments: Vesicular lesions noted to the tongue and the upper lip. - Neck Neck exam: Present: normal inspection Additional comments: Temporary HD catheter noted to the right neck with transparent dressing C/D/I, currently accessed for CRRT. No erythema, warmth, drainage, or tenderness noted. - Respiratory Respiratory exam: Present: CTAB. Absent: rales, respiratory distress, rhonchi, wheezes - Cardiovascular Cardiovascular exam: Present: RRR, +S1, +S2 - GI/Abdominal GI/Abdominal exam: Present: distended (obese), firm, normal bowel sounds. Absent: tenderness Additional comments: Lyons catheter noted to be draining small amount of clear, dark yellow urine. - Extremities Exam Extremities exam: Present: pedal edema (1+ BLE). Absent: joint swelling, tenderness - Neurological Exam Neurological exam: Present: altered (Sedated. TORRES x 4 with verbal stimuli.), no focal deficits - Skin Skin exam: Present: dry, intact, normal color, warm - VTE Documentation of Mechanical Device: Intermittent pneumatic compression device Consult Discharge Plan - Plan Referrals: Sheryl Stahl TOWEL HEMMER [Primary Care Provider] - - Attending Attestation I examined this patient and my medical decision-making was reviewed with the Resident Physician. I agree with the documented findings, disposition and treatment plan as described except to the extent set forth below.
[2018-06-24 10:51] LABS: Albumin 2.5 g/dL (3.5-5.7); BUN/Creatinine Ratio 16 (6-26); Blood Urea Nitrogen 22 mg/dL (6-20); Calcium 7.4 mg/dL (8.6-10.3); Carbon Dioxide 25 mEq/L (23-29); Chloride 102 mEq/L (98-107); Glucose 153 mg/dL (70-105); Osmolality,Calculated 282 (280-300); Phosphorous 2.3 mg/dL (2.7-4.5); Potassium 4.1 mEq/L (3.5-5.1); Sodium 133 mEq/L (136-145); eGFR For Non-African Americans 53 (> 60)
[2018-06-24 11:36] LABS: Bilirubin,Urine Small (Negative); Blood,Urine Moderate (Negative); Color,Urine Yellow (Yellow); Glucose,Urine (UA) Normal (Normal); Ketones,Urine Negative (Negative); Leukocyte Esterase,Urine Moderate (Negative); Nitrite,Urine Negative (Negative); Protein,Urine 30 mg/dL (Neg-Trace); Specific Gravity,Urine 1.013 (1.010-1.025); Urobilinogen,Urine Normal (Normal)
[2018-06-24 11:37] LABS: Bacteria,Urine None Seen per hpf (None-Few); Hyaline Casts,Urine None Seen per lpf (None-Few); Squamous Epithelial Cell,Urine Many per lpf (None-Few); WBC,Urine 50-100 per hpf (0-3)
[2018-06-24 11:38] LABS: Clarity,Urine Hazy (Clear)
[2018-06-24] MEDS: 0.9 % Sodium Chloride 1,000 ML IVC SCH (19:33)
[2018-06-24] MEDS: Ipratropium/Albuterol Neb 3 ML IH PRN (19:35)
[2018-06-25] MEDS: PrismaSATE BGK 4/2.5 5,000 ML CRRT SCH ×12 (00:13→21:15)
[2018-06-25] MEDS: Piperacillin/Tazobactam 3.375 GM in 0.9 % Sodium Chloride Mini Bag 100 ML IVPB SCH ×2 (03:05→12:21)
[2018-06-25 03:25] LABS: Hematocrit 29.1 % (37.5-50.1); Hemoglobin 9.6 g/dL (12.9-16.9); Mean Corpuscular Hemoglobin 32.5 pg (28.0-33.3); Mean Corpuscular Volume 98.6 fL (83.0-100.0); Mean Platelet Volume 10.1 fL (9.4-12.4); Nucleated Red Blood Cells 0.8 /100 WBC (0); Platelet Count 129 K/mcL (140-400); Red Blood Count 2.95 M/mcL (4.19-5.50); Red Cell Distribution Width 16.9 % (11.5-14.5)
[2018-06-25] MEDS: FentaNYL (PF) 2,500 MCG in EMPTY BAG 1 EACH IVC SCH (03:37)
[2018-06-25] MEDS: Artificial Tears SOLN 15 ML BOTTLE BOTH EYES SCH ×5 (03:37→20:33)
[2018-06-25] MEDS: Ipratropium/Albuterol Neb 3 ML IH PRN (03:49)
[2018-06-25 03:54] LABS: Alanine Aminotransferase 15 Units/L (7-52); Albumin 2.6 g/dL (3.5-5.7); Albumin/Globulin Ratio 0.8 (1.1-2.2); Alkaline Phosphatase 148 Units/L (34-104); Aspartate Amino Transferase 20 Units/L (13-39); BUN/Creatinine Ratio 15 (6-26); Bilirubin,Total 0.7 mg/dL (0.3-1.0); Blood Urea Nitrogen 17 mg/dL (6-20); Calcium 7.6 mg/dL (8.6-10.3); Carbon Dioxide 27 mEq/L (23-29); Chloride 103 mEq/L (98-107); Globulin 3.3 g/dL (2.4-3.5); Glucose 142 mg/dL (70-105); Osmolality,Calculated 286 (280-300); Potassium 4.1 mEq/L (3.5-5.1); Sodium 136 mEq/L (136-145); Total Protein 5.9 g/dL (6.4-8.9); eGFR For Non-African Americans > 60 (> 60)
[2018-06-25 04:09] LABS: Anisocytosis 1+ (Not Present); Eosinophils # 0.5 K/mcL (0.0-0.6); Monocytes # 2.5 K/mcL (0.0-1.3); Neutrophils # 18.4 K/mcL (1.6-8.9); Platelet Estimate Normal (Normal)
[2018-06-25] MEDS: *HR* Heparin 5,000 UNIT/ML VIAL SQ SCH ×2 (05:09→17:38)
[2018-06-25 05:25] LABS: ABG Base Excess 2 mEq/L (-2 to 3); ABG HCO3 27 mEq/L (21-27); ABG Oxygen Saturation 96 % (95-98); ABG PCO2 46 mmHg (35-45); ABG PH 7.38 pH Units (7.32-7.45); ABG PO2 81 mmHg (85-104); ABG TCO2 29 mEq/L (20-26); Blood Gas Modality ASSIST CONTROL; Blood Gas PEEP 8 cm H2O; Blood Gas Respiration Rate 18; Blood Gas VT 500 cc
--- NOTE | 2018-06-25 07:25 | Pulmonology Progress Note ---
<Bonnie Cummins E - Last Filed: 06/25/18 11:38> Date of Encounter: 06/25/18 Time of Encounter: 07:23 Assessment and Plan (1) Septic shock Current Visit: Yes Status: Acute sepsis suspected secondary to karo fungemia. Norepinephrine as needed. MAP this morning 70, Continue zosyn and vancomycin (day 9). ID recommends continuing antibiotics for now. On fluconazole for fungemia, possible from UTI. No growth on repeat cultures from 06/19/18. New cultures were drawn on 06/24/18 waiting on culture growth. CT scan 06/23/18 showed thickening of the bladder wall possibly due to cystitis. Small bilateral pleural effusions with bibasilar pulmonary airspace opacities, favored to be atelectasis, sludge within the gallbladder. Mildly enlarged anterior mediastinal lymphnode and peripancreatic nodes, may be reactive. (2) Acute respiratory failure with hypoxemia Current Visit: Yes Status: Acute On ventilator Chest XR from this morning shows ET tube approxamately 4 cm above sanjeev. pH is improving, 7.38 today. Continue to monitor and repeat ABGs if changes in respiratory status. Overnight team noticed possible desaturation or breath holding, will be checking mental status and adjusting sedation as needed. (3) COPD (chronic obstructive pulmonary disease) Current Visit: Yes Status: Chronic Continue ventilator, adjust as tolerated. Qualifiers: COPD type: emphysema Emphysema type: unspecified Qualified Code(s): J43.9 - Emphysema, unspecified (4) Systolic heart failure Current Visit: Yes Status: Acute MAP today 70. Continue to monitor and titrate norepinephrine as he tolerates to keep MAP above 60. Qualifiers: Heart failure chronicity: unspecified Qualified Code(s): I50.20 - Unspecified systolic (congestive) heart failure (5) LUCILA (acute kidney injury) Current Visit: Yes Status: Acute improvement of creatinine, 1.16 today. Urine output is up to approximately 38 ml /hr. Nephrology following. Nephrology planning on switching patient to intermittent dialysis tomorrow, if this is not possible they would like to start citrate. (6) Hypocalcemia Current Visit: Yes Status: Acute Continue to monitor. Calcium today at 7.6. Replace if necessary (7) Thrombocytopenia Current Visit: Yes Status: Resolved Platelets slightly decreased today to 129 from 149 yesterday. Continue to monitor. 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 NO heparin was in use in the lines which could have caused the excessive clotting on dialysis filter. Also, platelet count could have been decreased do to septic shock. (9) Hypokalemia Current Visit: Yes Status: Resolved resolved, today potassium is 4.1, stable (10) Type 2 diabetes mellitus Current Visit: Yes Status: Chronic Glucose today is 149. Was started on high sliding scale of lispro on admission. IV insulin drip. Trickle feeds were started 06/22/18. Continue to monitor, continue IV insulin. Qualifiers: Diabetes mellitus intermediate teacher insulin use: with intermediate teacher use Diabetes mellitus complication status: with unspecified complications Qualified Code(s) : E11.8 - Type 2 diabetes mellitus with unspecified complications; Z79.4 - FPC (current) use of insulin (11) DVT prophylaxis Current Visit: Yes Status: Acute Heparin 5000 units q12 Subjective Principal diagnosis: septic shock Interval history: Mr. Mccarthy was seen at bedside this morning. He is sedated and intubated and on ventilator. BUN And creatinine have decreased to normal levels. WBC count decreased from yesterday. ABGs normalizing. 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 Vancomycin and Zosyn for any underlying infection due to clinical severity, as per ID. Currently on Heparin for DVT prophylaxis. Objective PUL Vital signs: Last Vital Signs Temp 97.4 F L 06/25/18 03:02 Pulse 78 06/25/18 06:09 Resp 18 06/25/18 07:18 BP 94/58 06/25/18 07:18 Pulse Ox 94 06/25/18 07:18 General appearance: other (sedated adn intubated) Eyes: nonicteric ENT: oropharynx dry Neck: no lymphadenopathy Effort: other (intubated) Auscultation: bilateral: diminished breath sounds (lower lobes) Cardiovascular: regular rate and rhythm Gastrointestinal: hypoactive bowel sounds, other (distended) Extremities: no cyanosis, pink and warm, edema (2+ pitting to calves) pupils equal and round, other (patient not responsive to voice or noctious stimuli) Ventilator Settings Ventilator Settings: Ventilator Settings, Last 8 Hours Ventilator Tidal Volume 500 Setting Ventilator Tidal Volume 500 Setting Ventilator Tidal Volume 500 Setting Ventilator Tidal Volume 500 Setting Ventilator Tidal Volume 500 Setting Ventilator Tidal Volume 500 Setting Ventilator Tidal Volume 500 Setting Ventilator Tidal Volume 500 Setting Ventilator Tidal Volume 500 Setting Ventilator Tidal Volume 500 Setting Ventilator Tidal Volume 500 Setting Ventilator Tidal Volume 500 Setting Ventilator Respiratory Rate 18 Setting Ventilator Respiratory Rate 18 Setting Ventilator Respiratory Rate 18 Setting Ventilator Respiratory Rate 18 Setting Ventilator Respiratory Rate 18 Setting Ventilator Respiratory Rate 18 Setting Ventilator Respiratory Rate 18 Setting Ventilator Respiratory Rate 18 Setting Ventilator Respiratory Rate 18 Setting Ventilator Respiratory Rate 18 Setting Ventilator Respiratory Rate 18 Setting Ventilator Respiratory Rate 18 Setting Actual Respiratory Rate 18 Actual Respiratory Rate 18 Actual Respiratory Rate 18 Actual Respiratory Rate 18 Actual Respiratory Rate 18 Actual Respiratory Rate 18 Actual Respiratory Rate 18 Actual Respiratory Rate 18 Actual Respiratory Rate 18 Actual Respiratory Rate 18 Actual Respiratory Rate 18 Positive End Expiratory 8 Pressure Positive End Expiratory 8 Pressure Positive End Expiratory 8 Pressure Positive End Expiratory 8 Pressure Positive End Expiratory 8 Pressure Positive End Expiratory 8 Pressure Positive End Expiratory 8 Pressure Positive End Expiratory 8 Pressure Positive End Expiratory 8 Pressure Positive End Expiratory 8 Pressure Positive End Expiratory 8 Pressure Positive End Expiratory 8 Pressure Peak Inspiratory Airway 37 Pressure Peak Inspiratory Airway 38 Pressure Peak Inspiratory Airway 38 Pressure Peak Inspiratory Airway 40 Pressure Peak Inspiratory Airway 46 Pressure Peak Inspiratory Airway 45 Pressure Peak Inspiratory Airway 46 Pressure Peak Inspiratory Airway 43 Pressure Peak Inspiratory Airway 47 Pressure Peak Inspiratory Airway 46 Pressure Peak Inspiratory Airway 48 Pressure Results - Laboratory Findings CBC and BMP: 06/25/18 03:15 06/25/18 03:15 ABG ABG pH 7.38 pH Units (7.32-7.45) 06/25/18 05:06 ABG pCO2 46 mmHg (35-45) H 06/25/18 05:06 ABG pO2 81 mmHg (85-104) L 06/25/18 05:06 ABG O2 Saturation 96 % (95-98) 06/25/18 05:06 PT/INR, D-dimer PT 16.7 Seconds (9.4-12.1) H 06/22/18 03:45 D-Dimer 3465 ng/mLFEU (0-500) H 06/18/18 08:08 Abnormal lab findings: Abnormal lab results WBC 24.9 K/mcL (4.3-11.1) H 06/25/18 03:15 RBC 2.95 M/mcL (4.19-5.50) L 06/25/18 03:15 Hgb 9.6 g/dL (12.9-16.9) L 06/25/18 03:15 Hct 29.1 % (37.5-50.1) L 06/25/18 03:15 RDW 16.9 % (11.5-14.5) H 06/25/18 03:15 Plt Count 129 K/mcL (140-400) L 06/25/18 03:15 Immature Gran % 14.0 % (0-4) H 06/24/18 03:00 Metamyelocytes % 2.0 % (0) H 06/25/18 03:15 Neutrophils # 18.4 K/mcL (1.6-8.9) H 06/25/18 03:15 Monocytes # 2.5 K/mcL (0.0-1.3) H 06/25/18 03:15 Nucleated RBCs/100 WBC 0.8 /100 WBC (0) H 06/25/18 03:15 Toxic Granulation Present (Not Present) A 06/18/18 03:05 Toxic Vacuolation Present (Not Present) A 06/22/18 03:45 Large Platelets Present (Not Present) A 06/23/18 03:15 Immature Plt Fraction 27.2 % (1.1-6.1) H 06/22/18 03:45 Anisocytosis 1+ (Not Present) A 06/25/18 03:15 PT 16.7 Seconds (9.4-12.1) H 06/22/18 03:45 APTT 62.8 Seconds (26.0-36.0) H 06/23/18 08:00 Fibrinogen 578 mg/dL (169-393) H 06/18/18 08:08 D-Dimer 3465 ng/mLFEU (0-500) H 06/18/18 08:08 ABG pCO2 46 mmHg (35-45) H 06/25/18 05:06 ABG pO2 81 mmHg (85-104) L 06/25/18 05:06 ABG Total CO2 29 mEq/L (20-26) H 06/25/18 05:06 Glucose 142 mg/dL (70-105) H 06/25/18 03:15 POC Glucose 120 mg/dL (70-99) H 06/25/18 06:34 Calcium 7.6 mg/dL (8.6-10.3) L 06/25/18 03:15 Venous Ioniz Calcium 1.01 mmol/L (1.15-1.35) L 06/24/18 03:13 Phosphorus 2.3 mg/dL (2.7-4.5) L 06/24/18 10:00 Direct Bilirubin 0.4 mg/dL (0.0-0.2) H 06/23/18 03:15 Alkaline Phosphatase 148 Units/L (34-104) H 06/25/18 03:15 Troponin I 0.92 ng/mL (< 0.04) H* 06/17/18 22:33 Serum Total Protein 5.9 g/dL (6.4-8.9) L 06/25/18 03:15 Albumin 2.6 g/dL (3.5-5.7) L 06/25/18 03:15 Albumin/Globulin Ratio 0.8 (1.1-2.2) L 06/25/18 03:15 Amylase 20 Units/L (29-103) L 06/23/18 16:27 Procalcitonin 107.11 ng/mL (<=0.07) H 06/17/18 16:40 Urine Protein 30 mg/dL (Neg-Trace) H 06/24/18 11:15 Urine Blood Moderate (Negative) H 06/24/18 11:15 Urine Bilirubin Small (Negative) H 06/24/18 11:15 Ur Leukocyte Esterase Moderate (Negative) H 06/24/18 11:15 Urine Microscopic RBC 3-5 per hpf (0-3) H 06/24/18 11:15 Urine Microscopic WBC 50-100 per hpf (0-3) H 06/24/18 11:15 Ur Squamous Epith Cells Many per lpf (None-Few) H 06/24/18 11:15 Vancomycin Trough 18 mcg/mL (5-10) H 06/19/18 08:20 Urine Opiates Screen Positive ng/mL (Jcebhl=765) H 06/18/18 10:37 U Benzodiazepines Scrn Positive ng/mL (Eailxy=947) H 06/18/18 10:37 - Microbiology Findings Microbiology Findings: Microbiology, Last 48 Hours 06/19/18 12:46 Blood Culture - Final Peripheral Venipuncture No growth. Final report. 06/19/18 12:46 Blood Culture - Final Peripheral Venipuncture No growth. Final report. 06/24/18 11:35 Blood Culture - Preliminary Peripheral Venipuncture Culture is incubating and being continuously monitored for growth. Final report to follow. 06/24/18 11:35 Blood Culture - Preliminary Peripheral Venipuncture Culture is incubating and being continuously monitored for growth. Final report to follow. 06/18/18 20:45 Sputum Culture - Final Sputum - Clinical Findings Intake & Output: Intake & Output 06/24/18 06/24/18 06/25/18 15:59 23:59 07:59 Intake Total 978.0 / 978.0 638.0 / 638.0 678 / 678 Output Total 1573 / 1573 1129 / 1129 1623 / 1623 Balance -595.0 / -595.0 -491.0 / -491.0 -945 / -945 Weight 135 kg - VTE Documentation of Mechanical Device: Intermittent pneumatic compression device Consult Discharge Plan - Plan Referrals: Sheryl Stahl, [employer] [Primary Care Provider] - <Inga Gordon - Last Filed: 06/25/18 17:02> Date of Encounter: 06/25/18 Objective PUL Vital signs: Last Vital Signs Temp 98.2 F 06/25/18 08:00 Pulse 77 06/25/18 09:00 Resp 18 06/25/18 09:00 BP 95/61 06/25/18 09:00 Pulse Ox 94 06/25/18 09:00 Ventilator Settings Ventilator Settings: Ventilator Settings, Last 8 Hours Ventilator Tidal Volume 500 Setting Ventilator Tidal Volume 500 Setting Ventilator Tidal Volume 500 Setting Ventilator Tidal Volume 500 Setting Ventilator Tidal Volume 500 Setting Ventilator Tidal Volume 500 Setting Ventilator Tidal Volume 500 Setting Ventilator Tidal Volume 500 Setting Ventilator Tidal Volume 500 Setting Ventilator Tidal Volume 500 Setting Ventilator Tidal Volume 500 Setting Ventilator Tidal Volume 500 Setting Ventilator Respiratory Rate 18 Setting Ventilator Respiratory Rate 18 Setting Ventilator Respiratory Rate 18 Setting Ventilator Respiratory Rate 18 Setting Ventilator Respiratory Rate 18 Setting Ventilator Respiratory Rate 18 Setting Ventilator Respiratory Rate 18 Setting Ventilator Respiratory Rate 18 Setting Ventilator Respiratory Rate 18 Setting Ventilator Respiratory Rate 18 Setting Ventilator Respiratory Rate 18 Setting Ventilator Respiratory Rate 18 Setting Actual Respiratory Rate 18 Actual Respiratory Rate 18 Actual Respiratory Rate 18 Actual Respiratory Rate 18 Actual Respiratory Rate 18 Actual Respiratory Rate 18 Actual Respiratory Rate 18 Actual Respiratory Rate 18 Actual Respiratory Rate 18 Actual Respiratory Rate 18 Actual Respiratory Rate 18 Positive End Expiratory 8 Pressure Positive End Expiratory 8 Pressure Positive End Expiratory 8 Pressure Positive End Expiratory 8 Pressure Positive End Expiratory 8 Pressure Positive End Expiratory 8 Pressure Positive End Expiratory 8 Pressure Positive End Expiratory 8 Pressure Positive End Expiratory 8 Pressure Positive End Expiratory 8 Pressure Positive End Expiratory 8 Pressure Positive End Expiratory 8 Pressure Peak Inspiratory Airway 37 Pressure Peak Inspiratory Airway 37 Pressure Peak Inspiratory Airway 37 Pressure Peak Inspiratory Airway 37 Pressure Peak Inspiratory Airway 38 Pressure Peak Inspiratory Airway 38 Pressure Peak Inspiratory Airway 40 Pressure Peak Inspiratory Airway 46 Pressure Peak Inspiratory Airway 45 Pressure Peak Inspiratory Airway 46 Pressure Peak Inspiratory Airway 43 Pressure Results - Laboratory Findings CBC and BMP: 06/25/18 03:15 06/25/18 03:15 ABG ABG pH 7.38 pH Units (7.32-7.45) 06/25/18 05:06 ABG pCO2 46 mmHg (35-45) H 06/25/18 05:06 ABG pO2 81 mmHg (85-104) L 06/25/18 05:06 ABG O2 Saturation 96 % (95-98) 06/25/18 05:06 PT/INR, D-dimer PT 16.7 Seconds (9.4-12.1) H 06/22/18 03:45 D-Dimer 3465 ng/mLFEU (0-500) H 06/18/18 08:08 Abnormal lab findings: Abnormal lab results WBC 24.9 K/mcL (4.3-11.1) H 06/25/18 03:15 RBC 2.95 M/mcL (4.19-5.50) L 06/25/18 03:15 Hgb 9.6 g/dL (12.9-16.9) L 06/25/18 03:15 Hct 29.1 % (37.5-50.1) L 06/25/18 03:15 RDW 16.9 % (11.5-14.5) H 06/25/18 03:15 Plt Count 129 K/mcL (140-400) L 06/25/18 03:15 Immature Gran % 14.0 % (0-4) H 06/24/18 03:00 Metamyelocytes % 2.0 % (0) H 06/25/18 03:15 Neutrophils # 18.4 K/mcL (1.6-8.9) H 06/25/18 03:15 Monocytes # 2.5 K/mcL (0.0-1.3) H 06/25/18 03:15 Nucleated RBCs/100 WBC 0.8 /100 WBC (0) H 06/25/18 03:15 Toxic Granulation Present (Not Present) A 06/18/18 03:05 Toxic Vacuolation Present (Not Present) A 06/22/18 03:45 Large Platelets Present (Not Present) A 06/23/18 03:15 Immature Plt Fraction 27.2 % (1.1-6.1) H 06/22/18 03:45 Anisocytosis 1+ (Not Present) A 06/25/18 03:15 PT 16.7 Seconds (9.4-12.1) H 06/22/18 03:45 APTT 62.8 Seconds (26.0-36.0) H 06/23/18 08:00 Fibrinogen 578 mg/dL (169-393) H 06/18/18 08:08 D-Dimer 3465 ng/mLFEU (0-500) H 06/18/18 08:08 ABG pCO2 46 mmHg (35-45) H 06/25/18 05:06 ABG pO2 81 mmHg (85-104) L 06/25/18 05:06 ABG Total CO2 29 mEq/L (20-26) H 06/25/18 05:06 Glucose 142 mg/dL (70-105) H 06/25/18 03:15 POC Glucose 135 mg/dL (70-99) H 06/25/18 09:18 Calcium 7.6 mg/dL (8.6-10.3) L 06/25/18 03:15 Venous Ioniz Calcium 1.01 mmol/L (1.15-1.35) L 06/24/18 03:13 Phosphorus 2.3 mg/dL (2.7-4.5) L 06/24/18 10:00 Direct Bilirubin 0.4 mg/dL (0.0-0.2) H 06/23/18 03:15 Alkaline Phosphatase 148 Units/L (34-104) H 06/25/18 03:15 Troponin I 0.92 ng/mL (< 0.04) H* 06/17/18 22:33 Serum Total Protein 5.9 g/dL (6.4-8.9) L 06/25/18 03:15 Albumin 2.6 g/dL (3.5-5.7) L 06/25/18 03:15 Albumin/Globulin Ratio 0.8 (1.1-2.2) L 06/25/18 03:15 Amylase 20 Units/L (29-103) L 06/23/18 16:27 Procalcitonin 107.11 ng/mL (<=0.07) H 06/17/18 16:40 Urine Protein 30 mg/dL (Neg-Trace) H 06/24/18 11:15 Urine Blood Moderate (Negative) H 06/24/18 11:15 Urine Bilirubin Small (Negative) H 06/24/18 11:15 Ur Leukocyte Esterase Moderate (Negative) H 06/24/18 11:15 Urine Microscopic RBC 3-5 per hpf (0-3) H 06/24/18 11:15 Urine Microscopic WBC 50-100 per hpf (0-3) H 06/24/18 11:15 Ur Squamous Epith Cells Many per lpf (None-Few) H 06/24/18 11:15 Vancomycin Trough 18 mcg/mL (5-10) H 06/19/18 08:20 Urine Opiates Screen Positive ng/mL (Tcepri=255) H 06/18/18 10:37 U Benzodiazepines Scrn Positive ng/mL (Ozomrd=185) H 06/18/18 10:37 - Microbiology Findings Microbiology Findings: Microbiology, Last 48 Hours 06/19/18 12:46 Blood Culture - Final Peripheral Venipuncture No growth. Final report. 06/19/18 12:46 Blood Culture - Final Peripheral Venipuncture No growth. Final report. 06/24/18 11:35 Blood Culture - Preliminary Peripheral Venipuncture Culture is incubating and being continuously monitored for growth. Final report to follow. 06/24/18 11:35 Blood Culture - Preliminary Peripheral Venipuncture Culture is incubating and being continuously monitored for growth. Final report to follow. 06/18/18 20:45 Sputum Culture - Final Sputum - Clinical Findings Intake & Output: Intake & Output 06/24/18 06/25/18 06/25/18 23:59 07:59 15:59 Intake Total 638.0 / 638.0 688 / 688 39 / 39 Output Total 1129 / 1129 1623 / 1623 342 / 342 Balance -491.0 / -491.0 -935 / -935 -303 / -303 Weight 135 kg - Attending Attestation I examined this patient and my medical decision-making was reviewed with the Resident Physician. I agree with the documented findings, disposition and treatment plan as described except to the extent set forth below. Patient seen and examined. Labs, radiology, chart personally reviewed. 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 Unfortunately with patient's unstable condition and difficulty to turn him for lumbar puncture and he is connected with Kimmie and he is not stable to check MRI because he is on vasopressors. Pulmonary: Acceptable oxygenation and ventilation. Patient still not stable to have spontaneous breathing trial. I suspect patient maintained up with tracheostomy. Cardiovascular: Patient in shock and try to wean off Levophed as much as possible. GI: Nutrition per dietary and GI prophylaxis per routine Heme: DVT prophylaxis per routine ID: Continue antibiotics and plan to de-escalation Renal; urine out put and renal funtion reviewed. Patient remained volume overloaded and fluid removal is important. Patient is on Kimmie. Endorcine: blood glucose is monitored Lines: all lines checked and no evidence of infections Skin: skin care to prevent pressure ulcers per nursing routine care I spent 32 min of Critical Care time with this patient. It involved decision making of high complexity to assess, manipulate, and support vital organ system failure and/or to prevent further life threatening deterioration of the patient' s condition. The time involved in the performance of separately reportable procedures was not counted toward critical care time.
[2018-06-25] MEDS: Nystatin SUSP 5 ML UD.LIQ PO SCH ×4 (07:54→20:34)
[2018-06-25] MEDS: Sennosides/Docusate Sodium TABLET PO SCH ×2 (07:54→20:33)
[2018-06-25] MEDS: Chlorhexidine Rinse 15 ML MOUTHWASH MM SCH ×2 (07:54→20:35)
[2018-06-25] MEDS: Pantoprazole 40 MG VIAL IVP SCH (07:54)
[2018-06-25] MEDS: Fluconazole 400 MG/200 ML IVPB SCH (07:54)
--- NOTE | 2018-06-25 09:29 | Nephrology Progress Note ---
Date of Encounter: 06/25/18 Time of Encounter: 08:40 - Assessment and Plan (1) LUCILA (acute kidney injury) Current Visit: Yes Status: Acute Acute kidney injury on Kimmie Patient's chemistries have remained stable and he appears to be doing well. Continues to have some mild hypotension, however his pressors have decreased. Currently on only Levophed only Volume Status so appears to be overloaded, but it is improving compared to yesterday. UOP is still negligible, but is up to 20/hr Kimmie mode to CCVHDF, Effluent rate 25, Net +100. Attempt UF/fluid removal. CXR Shows negligible change in pulmonary edema. PEEP down to 8 Renal dose medications Plan Patient is still not a candidate for intermittent hemodialysis due to low blood pressures, however anticipate he may become eligible in the next 24-48 hours if BP continues to rise. -For now, continue dialysate/replacement at increased rate in order to achieve effluent rate of 25 -Aim for UF Net +100-150 for enhanced volume status control -Increased blood flow rate to 250 in order to decrease clotting rate ----The patient's platelets have gone up to 129. Suspect that if the patient is unable to tolerate hemodialysis by tomorrow, he may be a candidate for citrate which would allow for less frequent changing of the Kimmie filter. (2) Acute respiratory failure with hypoxemia Current Visit: Yes Status: Acute Currently intubated, management per primary team We will continue to manage fluid removal with Kimmie Currently removing at net + 100-150 (3) Septic shock Current Visit: Yes Status: Acute Septic shock with unknown source and multiple organ system dysfunction Patient's blood pressure continues to improve, pressor use to use to drop Management per primary team (4) Anemia Current Visit: Yes Status: Acute Acute blood loss anemia We will continue to monitor this, consider addition of iron supplementation Qualifiers: Anemia type: other cause Other causes of anemia: acute posthemorrhagic Qualified Code(s): D62 - Acute posthemorrhagic anemia Subjective Principal diagnosis: septic shock Interval history: The patient is resting in bed. He has remained on mechanical ventilation, however nursing staff has attempted to wean down on sedation as possible. No acute concerns overnight. Objective - Vital Signs Vital signs: Vital Signs Temp Pulse Resp BP Pulse Ox 06/25/18 09:00 77 18 95/61 94 06/25/18 08:00 98.2 F 70 18 93/58 94 06/25/18 07:18 18 94/58 94 06/25/18 07:00 80 18 94/59 94 06/25/18 06:09 78 18 90/56 95 06/25/18 05:10 18 90/56 95 06/25/18 05:00 74 18 100/65 95 06/25/18 04:00 69 18 113/70 95 06/25/18 03:49 18 109/67 95 06/25/18 03:02 97.4 F L 71 18 99/65 95 06/25/18 02:00 68 18 96/84 96 06/25/18 01:11 18 95 06/25/18 01:00 67 18 98/66 95 06/25/18 00:00 67 18 94/63 95 06/24/18 23:19 18 94/63 95 06/24/18 23:00 97.3 F L 68 18 89/55 94 06/24/18 22:00 71 18 91/63 94 06/24/18 21:27 18 85/54 94 06/24/18 21:05 75 18 89/55 93 06/24/18 20:00 80 18 86/51 97 06/24/18 19:35 18 86/51 95 06/24/18 19:00 96.9 F L 72 18 87/55 95 06/24/18 18:00 96.9 F L 72 18 95/64 94 06/24/18 17:10 18 100/65 95 06/24/18 17:00 73 18 100/65 95 06/24/18 16:08 18 101/63 94 06/24/18 16:00 97.5 F L 71 18 101/63 94 06/24/18 15:00 75 18 105/66 94 06/24/18 14:00 97.5 F L 72 18 98/60 93 06/24/18 13:00 73 18 95/60 95 06/24/18 12:00 73 19 95/59 95 06/24/18 11:10 19 85/48 96 06/24/18 11:00 99.0 F 82 18 85/48 93 06/24/18 10:00 81 18 94/56 95 Intake and Output 06/24/18 06/25/18 06/25/18 23:59 07:59 15:59 Intake Total 638.0 / 638.0 688 / 688 39 / 39 Output Total 1129 / 1129 1623 / 1623 342 / 342 Balance -491.0 / -491.0 -935 / -935 -303 / -303 Intake: IV Fluids 518.0 / 518.0 568 / 568 20 / 20 PrismaSATE BGK 4/2.5 5,000 ML @ 0 / 0 0 / 0 1000 mls/hr CRRT CONT NADIA Rx#: [id number] FentaNYL (PF) 2,500 MCG In 50 / 50 50 / 50 10 / 10 Empty Bag 1 Each @ 50 MCG/HR 1 mls/hr IVC CONT NADIA Rx#: [id number] HumuLIN R 100 UNIT In 0.9 % 10.0 / 10.0 10 / 10 Sodium Chloride 100 ML @ Per Protocol IVC CONT NADIA Rx#: [id number] Versed 50 MG In 0.9 % Sodium 100 / 100 120 / 120 10 / 10 Chloride 90 ML @ 2 MG/HR 4 mls/ hr IVC CONT NADIA Rx#:[id number] Levophed 8 MG In Dextrose 5% 258 / 258 188 / 188 250 ML @ 30 MCG/MIN 58.05 mls/ hr IVC CONT NADIA Rx#:[id number] Zosyn 3.375 GM In 0.9 % Sodium 100 / 100 200 / 200 Chloride (Mini-Bag +) 100 ML @ 25 mls/hr IVPB Q8H NADIA Rx#: [id number] Tube Feeding 120 / 120 120 / 120 19 / 19 Output: Kimmie 914 / 914 1314 / 1314 292 / 292 Catheter 215 / 215 309 / 309 50 / 50 Other: Stool Size Moderate Stool Consistency soft Stool Color Brown Weight 135 kg Blood Glucose* 123 120 135 - General Appearance Exam: Gen: Vitals noted. No acute distress. Patient is sedated on ventilator HEENT: Normocephalic, atraumatic Neck: Supple. No adenopathy. Cardiac: RRR, no murmur, +S1/S2 Pulmonary: Lungs sounds are substantially more clear than yesterday, only mild crackles are heard in the bases bilaterally Abdomen: soft, nontender, no guarding Extremities: 1-2+ bilateral lower extremity edema, nontender calf, no cyanosis or clubbing Neuro: Patient is sedated on ventilator - Lab 06/25/18 03:15 06/25/18 03:15 Most recent lab results ABG pH 7.38 pH Units (7.32-7.45) 06/25/18 05:06 ABG pCO2 46 mmHg (35-45) H 06/25/18 05:06 ABG pO2 81 mmHg (85-104) L 06/25/18 05:06 ABG HCO3 27 mEq/L (21-27) 06/25/18 05:06 ABG O2 Saturation 96 % (95-98) 06/25/18 05:06 Calcium 7.6 mg/dL (8.6-10.3) L 06/25/18 03:15 Phosphorus 2.3 mg/dL (2.7-4.5) L 06/24/18 10:00 Magnesium 2.5 mg/dL (1.6-2.6) 06/24/18 03:00 Urine Sodium 128.8 mEq/L 06/17/18 18:15 - VTE Documentation of Mechanical Device: Intermittent pneumatic compression device Consult Discharge Plan - Plan Referrals: Sheryl Stahl, COMBINE INSPECTOR [Primary Care Provider] -
[2018-06-25 11:49] LABS: HSV 1 DNA DETECTED (Not Detect); HSV 2 DNA Not Detected (Not Detect)
[2018-06-25] MEDS: Norepinephrine 8 MG in D5% in Water 250 ML IVC SCH (12:13)
--- NOTE | 2018-06-25 13:02 | Infectious Disease Progress No ---
Date of Encounter: 06/25/18 Time of Encounter: 10:00 - Assessment and Plan (1) Septic shock Current Visit: Yes Status: Acute The patient had 4 SIRS criteria plus lactic acidosis, acute kidney injury, acute encephalopathy, and hypotension requiring vasopressors. Likely secondary to candidemia, UTI, HSV encephalitis. There is also a concern that there is an underlying infectious etiology that has not been identified given the critical nature of this patient. Improved. Leukocytosis mildly improved today. Has developed hypothermia requiring the use of the warming blanket. Tachycardia resolved. Remains intubated and sedated so unable to assess his mental status. Acute kidney injury improved. Blood cultures obtained 06/17/18 are +2 out of 2 sets for Marisela albicans, nation- sensitive. Repeat blood cultures obtained 06/19/18 are NGTD 2 sets. Etiology of worsening leukocytosis unclear. He did receive 4 days of steroids, which were stopped 06/19/18: lag vs. other. Continue to trend. No evidence of skin/soft tissue infection. He does have some new breakdown to the buttocks, but no clinical evidence of infection. Get CT of the chest, abdomen, and pelvis in the AM. --> showed bladder wall thickening concerning for cystitis, bilateral pleural effusions with likely atelectasis, gallbladder sludge, possible constipation, and mediastinal and peripancreatic lymphadenopathy, likely reactive. CT head showed bilateral ethmoid and sphenoid sinusitis, but no intracranial abnormality. Check amylase and lipase.--> normal. Repeat blood cultures x 2 sets now peripherally. --> no growth. Check HIV.--> nonreactive. Has completed 9 days of Vanc and Zosyn. No additional bacterial cause of the patient's symptoms has been identified. Will discontinue Vanc and Zosyn and see how the patient does clinically. (2) Candidemia Current Visit: Yes Status: Acute Causative organism: Marisela albicans. Source: unclear. CT of the abdomen and pelvis is negative. He has no indwelling lines or catheters. His urine culture is positive for C. albicans. Blood cultures obtained 06/17/18 are +2 out of 2 sets for Marisela albicans, nation- sensitive. Repeat blood cultures obtained 06/19/18 are NGTD 2 sets. Continue fluconazole. Will ask pharmacy to assist with dosing for CRRT. Repeat LFTs normal. Duration of treatment depends on the clinical picture. Monitor liver function tests closely. Recommend ophthalmology to evaluate once patient stabilizes. (3) Pneumonia Current Visit: Yes Status: Ruled-out Location: Bilateral lower lobes. Causative organism: Unclear. Consider aspiration since the patient had altered mental status and was recently intubated. CT of the chest showed bilateral lower lobe infiltrates versus atelectasis. The patient does have a large amount of secretions coming from his ET tube. Discussed with the pulmonary team. Concern for pneumonia from their standpoint. MRSA screen completed 06/17/18 is negative. Sputum culture is NGTD. Check S. pneumo and Legionella UAT.--> negative. Check RIP.--> negative. Repeat CXR 06/23/18 showed mild pulmonary vascular congestion and atelectasis and mild pleural effusion at the right lung base, increased. CT scan of the chest 06/23/18 negative for PNA. Discontinue Vanc and Zosyn. Qualifiers: Pneumonia type: due to unspecified organism Laterality: bilateral Lung location: lower lobe of lung Qualified Code(s): J18.1 - Lobar pneumonia, unspecified organism (4) UTI (urinary tract infection) Current Visit: Yes Status: Acute Causative organism: C. albicans. Per the patient's , asymptomatic prior to admission. Continue fluconazole as above. Qualifiers: Urinary tract infection type: site unspecified Hematuria presence: without hematuria Qualified Code(s): N39.0 - Urinary tract infection, site not specified (5) Encephalopathy Current Visit: Yes Status: Acute Etiology unclear, but likely related to sepsis. Per the patient's , the patient did have any complaints of neck pain, stiffness, or headache. Unable to assess mental status since the patient remains intubated and sedated. CT head negative for intracranial abnormality. 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 Recommend LP. Send CSF for cell count with diff, protein, glucose, HSV PCR, and culture. Discussed with Dr. Buchanan from the pulm/CC team. Start Acyclovir. Will ask pharmacy to assist with dosing for CRRT. LFTs checked this morning remain normal. Duration of treatment depends on the clinical picture. (6) LUCILA (acute kidney injury) Current Visit: Yes Status: Acute Likely multifactorial: sepsis + hypotension + other. CRRT started 06/19/18. Creatinine improved. Urine output improved. Nephrology consulted and following. Continue to trend. Dose-adjust medications. (7) Lactic acidosis Current Visit: Yes Status: Resolved Likely secondary to sepsis. Resolved. (8) Thrombocytopenia Current Visit: Yes Status: Resolved Likely secondary to sepsis. LFTs abnormal on admission. Repeat LFTs normal. Improved. Continue to trend. No acute bleeding noted on exam. Further workup and management per the primary team. (9) Acute respiratory failure with hypoxemia Current Visit: Yes Status: Acute Likely secondary to PNA vs. pulmonary edema. Currently intubated. Vent management per the pulmonary team. (10) Systolic heart failure Current Visit: Yes Status: Acute TTE was sub-optimal, but showed approximate EF 20%. Qualifiers: Heart failure chronicity: unspecified Qualified Code(s): I50.20 - Unspecified systolic (congestive) heart failure (11) Hypokalemia Current Visit: Yes Status: Resolved Resolved. (12) Elevated troponin Current Visit: Yes Status: Acute Management per the primary team. (13) Type 2 diabetes mellitus Current Visit: Yes Status: Chronic Recommend aggressive glucose monitoring and control. Management per the primary team. Qualifiers: Diabetes mellitus residential insulin use: with residential use Diabetes mellitus complication status: with unspecified complications Qualified Code(s) : E11.8 - Type 2 diabetes mellitus with unspecified complications; Z79.4 - MCC (current) use of insulin (14) COPD (chronic obstructive pulmonary disease) Current Visit: Yes Status: Chronic Qualifiers: COPD type: emphysema Emphysema type: unspecified Qualified Code(s): J43.9 - Emphysema, unspecified (15) Oral lesion Current Visit: Yes Status: Acute Noted to the tongue. PCR positive for HSV 1. Start Acyclovir. Will ask pharmacy to assist with dosing for CRRT. Duration of treatment depends on the clinical picture. (16) Sinusitis Current Visit: Yes Status: Acute CT of the head 06/23/18 showed sinusitis of the bilateral sphenoid and ethmoid sinuses. Causative organism unclear. Treated with 9 days of Vanc and Zosyn. Qualifiers: Sinusitis location: unspecified location Chronicity: acute Recurrence: non-recurrent Qualified Code(s): J01.90 - Acute sinusitis, unspecified - Subjective Interval history: Patient seen and examined. No acute events noted overnight. Patient remains intubated and sedated. Minimally responsive to verbal stimuli, but does not follow commands or attempt to communicate. Continues to require Levophed to maintain adequate perfusion. Tube feeds started and tolerating well with no residuals per nursing. Large BM yesterday. SOLEDAD started Saturday. Urine output improved. Infect Dis PN-Objective Data - Labs CBC & Chem 7: 06/25/18 03:15 06/25/18 03:15 Labs: Laboratory Results - last 24 hr 06/24/18 06/24/18 06/24/18 12:59 14:00 15:04 WBC RBC Hgb Hct MCV MCH MCHC RDW Plt Count MPV Seg Neutrophils % Band Neutrophils % Lymphocytes % Monocytes % Eosinophils % Metamyelocytes % Neutrophils # Lymphocytes # Monocytes # Eosinophils # Nucleated RBCs/100 WBC Platelet Estimate Anisocytosis Sample Site ABG pH ABG pCO2 ABG pO2 ABG HCO3 ABG Total CO2 ABG O2 Saturation ABG Base Excess Michael Test Respiration Rate O2 Delivery Device Blood Gas Modality Inspired O2 Tidal Volume PEEP Sodium Potassium Chloride Carbon Dioxide BUN Creatinine Est GFR ( Amer) Est GFR (Non-Af Amer) BUN/Creatinine Ratio Glucose POC Glucose 137 H 139 H 142 H Calculated Osmolality Calcium Total Bilirubin AST ALT Alkaline Phosphatase Serum Total Protein Albumin Globulin Albumin/Globulin Ratio Random Vancomycin Herpes Simplex Source HSV I HSV II 06/24/18 06/24/18 06/24/18 15:10 15:51 17:00 WBC RBC Hgb Hct MCV MCH MCHC RDW Plt Count MPV Seg Neutrophils % Band Neutrophils % Lymphocytes % Monocytes % Eosinophils % Metamyelocytes % Neutrophils # Lymphocytes # Monocytes # Eosinophils # Nucleated RBCs/100 WBC Platelet Estimate Anisocytosis Sample Site ABG pH ABG pCO2 ABG pO2 ABG HCO3 ABG Total CO2 ABG O2 Saturation ABG Base Excess Michael Test Respiration Rate O2 Delivery Device Blood Gas Modality Inspired O2 Tidal Volume PEEP Sodium Potassium Chloride Carbon Dioxide BUN Creatinine Est GFR ( Amer) Est GFR (Non-Af Amer) BUN/Creatinine Ratio Glucose POC Glucose 137 H 137 H Calculated Osmolality Calcium Total Bilirubin AST ALT Alkaline Phosphatase Serum Total Protein Albumin Globulin Albumin/Globulin Ratio Random Vancomycin Herpes Simplex Source Tongue HSV I DETECTED A HSV II Not Detected 06/24/18 06/24/18 06/24/18 17:53 18:58 20:00 WBC RBC Hgb Hct MCV MCH MCHC RDW Plt Count MPV Seg Neutrophils % Band Neutrophils % Lymphocytes % Monocytes % Eosinophils % Metamyelocytes % Neutrophils # Lymphocytes # Monocytes # Eosinophils # Nucleated RBCs/100 WBC Platelet Estimate Anisocytosis Sample Site ABG pH ABG pCO2 ABG pO2 ABG HCO3 ABG Total CO2 ABG O2 Saturation ABG Base Excess Michael Test Respiration Rate O2 Delivery Device Blood Gas Modality Inspired O2 Tidal Volume PEEP Sodium Potassium Chloride Carbon Dioxide BUN Creatinine Est GFR ( Amer) Est GFR (Non-Af Amer) BUN/Creatinine Ratio Glucose POC Glucose 135 H 136 H 122 H Calculated Osmolality Calcium Total Bilirubin AST ALT Alkaline Phosphatase Serum Total Protein Albumin Globulin Albumin/Globulin Ratio Random Vancomycin Herpes Simplex Source HSV I HSV II 06/24/18 06/24/18 06/24/18 20:32 21:37 22:39 WBC RBC Hgb Hct MCV MCH MCHC RDW Plt Count MPV Seg Neutrophils % Band Neutrophils % Lymphocytes % Monocytes % Eosinophils % Metamyelocytes % Neutrophils # Lymphocytes # Monocytes # Eosinophils # Nucleated RBCs/100 WBC Platelet Estimate Anisocytosis Sample Site ABG pH ABG pCO2 ABG pO2 ABG HCO3 ABG Total CO2 ABG O2 Saturation ABG Base Excess Michael Test Respiration Rate O2 Delivery Device Blood Gas Modality Inspired O2 Tidal Volume PEEP Sodium Potassium Chloride Carbon Dioxide BUN Creatinine Est GFR ( Amer) Est GFR (Non-Af Amer) BUN/Creatinine Ratio Glucose POC Glucose 123 H 121 H 121 H Calculated Osmolality Calcium Total Bilirubin AST ALT Alkaline Phosphatase Serum Total Protein Albumin Globulin Albumin/Globulin Ratio Random Vancomycin Herpes Simplex Source HSV I HSV II 06/24/18 06/25/18 06/25/18 23:51 00:37 01:41 WBC RBC Hgb Hct MCV MCH MCHC RDW Plt Count MPV Seg Neutrophils % Band Neutrophils % Lymphocytes % Monocytes % Eosinophils % Metamyelocytes % Neutrophils # Lymphocytes # Monocytes # Eosinophils # Nucleated RBCs/100 WBC Platelet Estimate Anisocytosis Sample Site ABG pH ABG pCO2 ABG pO2 ABG HCO3 ABG Total CO2 ABG O2 Saturation ABG Base Excess Michael Test Respiration Rate O2 Delivery Device Blood Gas Modality Inspired O2 Tidal Volume PEEP Sodium Potassium Chloride Carbon Dioxide BUN Creatinine Est GFR ( Amer) Est GFR (Non-Af Amer) BUN/Creatinine Ratio Glucose POC Glucose 122 H 120 H 117 H Calculated Osmolality Calcium Total Bilirubin AST ALT Alkaline Phosphatase Serum Total Protein Albumin Globulin Albumin/Globulin Ratio Random Vancomycin Herpes Simplex Source HSV I HSV II 06/25/18 06/25/18 06/25/18 03:04 03:15 03:15 WBC 24.9 H RBC 2.95 L Hgb 9.6 L Hct 29.1 L MCV 98.6 MCH 32.5 MCHC 33.0 RDW 16.9 H Plt Count 129 L MPV 10.1 Seg Neutrophils % 72.0 Band Neutrophils % 2.0 Lymphocytes % 12.0 Monocytes % 10.0 Eosinophils % 2.0 Metamyelocytes % 2.0 H Neutrophils # 18.4 H Lymphocytes # 3.0 Monocytes # 2.5 H Eosinophils # 0.5 Nucleated RBCs/100 WBC 0.8 H Platelet Estimate Normal Anisocytosis 1+ A Sample Site ABG pH ABG pCO2 ABG pO2 ABG HCO3 ABG Total CO2 ABG O2 Saturation ABG Base Excess Michael Test Respiration Rate O2 Delivery Device Blood Gas Modality Inspired O2 Tidal Volume PEEP Sodium Potassium Chloride Carbon Dioxide BUN Creatinine Est GFR ( Amer) Est GFR (Non-Af Amer) BUN/Creatinine Ratio Glucose POC Glucose 118 H Calculated Osmolality Calcium Total Bilirubin AST ALT Alkaline Phosphatase Serum Total Protein Albumin Globulin Albumin/Globulin Ratio Random Vancomycin 12 Herpes Simplex Source HSV I HSV II 06/25/18 06/25/18 06/25/18 03:15 03:52 04:50 WBC RBC Hgb Hct MCV MCH MCHC RDW Plt Count MPV Seg Neutrophils % Band Neutrophils % Lymphocytes % Monocytes % Eosinophils % Metamyelocytes % Neutrophils # Lymphocytes # Monocytes # Eosinophils # Nucleated RBCs/100 WBC Platelet Estimate Anisocytosis Sample Site ABG pH ABG pCO2 ABG pO2 ABG HCO3 ABG Total CO2 ABG O2 Saturation ABG Base Excess Michael Test Respiration Rate O2 Delivery Device Blood Gas Modality Inspired O2 Tidal Volume PEEP Sodium 136 Potassium 4.1 Chloride 103 Carbon Dioxide 27 BUN 17 Creatinine 1.16 Est GFR ( Amer) > 60 Est GFR (Non-Af Amer) > 60 BUN/Creatinine Ratio 15 Glucose 142 H POC Glucose 122 H 129 H Calculated Osmolality 286 Calcium 7.6 L Total Bilirubin 0.7 AST 20 ALT 15 Alkaline Phosphatase 148 H Serum Total Protein 5.9 L Albumin 2.6 L Globulin 3.3 Albumin/Globulin Ratio 0.8 L Random Vancomycin Herpes Simplex Source HSV I HSV II 06/25/18 06/25/18 06/25/18 05:06 05:50 06:34 WBC RBC Hgb Hct MCV MCH MCHC RDW Plt Count MPV Seg Neutrophils % Band Neutrophils % Lymphocytes % Monocytes % Eosinophils % Metamyelocytes % Neutrophils # Lymphocytes # Monocytes # Eosinophils # Nucleated RBCs/100 WBC Platelet Estimate Anisocytosis Sample Site R Radial ABG pH 7.38 ABG pCO2 46 H ABG pO2 81 L ABG HCO3 27 ABG Total CO2 29 H ABG O2 Saturation 96 ABG Base Excess 2 Michael Test N/A Respiration Rate 18 O2 Delivery Device Adult Vent Blood Gas Modality ASSIST CONTROL Inspired O2 55.0 Tidal Volume 500 PEEP 8 Sodium Potassium Chloride Carbon Dioxide BUN Creatinine Est GFR ( Amer) Est GFR (Non-Af Amer) BUN/Creatinine Ratio Glucose POC Glucose 123 H 120 H Calculated Osmolality Calcium Total Bilirubin AST ALT Alkaline Phosphatase Serum Total Protein Albumin Globulin Albumin/Globulin Ratio Random Vancomycin Herpes Simplex Source HSV I HSV II 06/25/18 06/25/18 06/25/18 08:14 09:18 10:20 WBC RBC Hgb Hct MCV MCH MCHC RDW Plt Count MPV Seg Neutrophils % Band Neutrophils % Lymphocytes % Monocytes % Eosinophils % Metamyelocytes % Neutrophils # Lymphocytes # Monocytes # Eosinophils # Nucleated RBCs/100 WBC Platelet Estimate Anisocytosis Sample Site ABG pH ABG pCO2 ABG pO2 ABG HCO3 ABG Total CO2 ABG O2 Saturation ABG Base Excess Michael Test Respiration Rate O2 Delivery Device Blood Gas Modality Inspired O2 Tidal Volume PEEP Sodium Potassium Chloride Carbon Dioxide BUN Creatinine Est GFR ( Amer) Est GFR (Non-Af Amer) BUN/Creatinine Ratio Glucose POC Glucose 130 H 135 H 128 H Calculated Osmolality Calcium Total Bilirubin AST ALT Alkaline Phosphatase Serum Total Protein Albumin Globulin Albumin/Globulin Ratio Random Vancomycin Herpes Simplex Source HSV I HSV II 06/25/18 06/25/18 11:15 12:07 WBC RBC Hgb Hct MCV MCH MCHC RDW Plt Count MPV Seg Neutrophils % Band Neutrophils % Lymphocytes % Monocytes % Eosinophils % Metamyelocytes % Neutrophils # Lymphocytes # Monocytes # Eosinophils # Nucleated RBCs/100 WBC Platelet Estimate Anisocytosis Sample Site ABG pH ABG pCO2 ABG pO2 ABG HCO3 ABG Total CO2 ABG O2 Saturation ABG Base Excess Michael Test Respiration Rate O2 Delivery Device Blood Gas Modality Inspired O2 Tidal Volume PEEP Sodium Potassium Chloride Carbon Dioxide BUN Creatinine Est GFR ( Amer) Est GFR (Non-Af Amer) BUN/Creatinine Ratio Glucose POC Glucose 120 H 127 H Calculated Osmolality Calcium Total Bilirubin AST ALT Alkaline Phosphatase Serum Total Protein Albumin Globulin Albumin/Globulin Ratio Random Vancomycin Herpes Simplex Source HSV I HSV II Cultures: Cultures 06/19/18 12:46 Blood Culture - Final Peripheral Venipuncture No growth. Final report. 06/19/18 12:46 Blood Culture - Final Peripheral Venipuncture No growth. Final report. 06/24/18 11:35 Blood Culture - Preliminary Peripheral Venipuncture Culture is incubating and being continuously monitored for growth. Final report to follow. 06/24/18 11:35 Blood Culture - Preliminary Peripheral Venipuncture Culture is incubating and being continuously monitored for growth. Final report to follow. 06/18/18 20:45 Sputum Culture - Final Sputum 06/20/18 11:30 Legionella Antigen - Final Urine,[place] Streptococcus pneumoniae Antigen (M - Final Serology 06/24/18 06/24/18 06/23/18 Range/Units 15:10 11:15 20:00 Urine Color Yellow (Yellow) Urine Clarity Hazy (Clear) Urine pH 6.0 (5.0-8.0) pH Units Ur Specific [place] 1.013 (1.010-1.025) Urine Protein 30 H (Neg-Trace) mg/dL Urine Glucose (UA) Normal (Normal) mg/dL Urine Ketones Negative (Negative) mg/dL Urine Blood Moderate H (Negative) Urine Nitrite Negative (Negative) Urine Bilirubin Small H (Negative) Urine Urobilinogen Normal (Normal) mg/dL Ur Leukocyte Esterase Moderate H (Negative) Urine Microscopic RBC 3-5 H (0-3) per hpf Urine Microscopic WBC 50-100 H (0-3) per hpf Ur Squamous Epith Cells Many H (None-Few) per lpf Urine Bacteria None Seen (None-Few) per hpf Hyaline Casts None Seen (None-Few) per lpf Urine Osmolality (300-1090) mOsm/kg Urine Sodium mEq/L Urine Potassium mEq/L Urine Chloride mEq/L Nasal Screen MRSA (PCR) (Negative) Chlamy pneumoniae PCR (Not Detect) Adenovirus (PCR) (Not Detect) B. pertussis DNA (PCR) (Not Detect) B.parapertussis DNA PCR (Not Detect) Coronavirus OC43 (PCR) (Not Detect) Coronavirus HKU1 (PCR) (Not Detect) Coronavirus 229E (PCR) (Not Detect) Coronavirus NL63 (PCR) (Not Detect) Hep Bs Antigen (Nonreactive) Hep Bs Antibody mIU/mL Herpes Simplex Source [place] HSV I DETECTED A (Not Detect) HSV II Not Detected (Not Detect) HIV Ag/Ab Combo Qual Nonreactive (Nonreactive) Human Metapneumovir PCR (Not Detect) Influenza A (H1) PCR (Not Detect) Influ A (H1N1/09) PCR (Not Detect) Influenza A (H3) PCR (Not Detect) Influenza A Untype (PCR) (Not Detect) Influenza Type B (PCR) (Not Detect) M.pneumoniae DNA (PCR) (Not Detect) Parainfluenza 1 (PCR) (Not Detect) Parainfluenza 2 (PCR) (Not Detect) Parainfluenza 3 (PCR) (Not Detect) Parainfluenza 4 (PCR) (Not Detect) RSV (PCR) (Not Detect) Entero/Rhino (PCR) (Not Detect) 06/23/18 06/20/18 06/18/18 Range/Units 08:10 11:30 10:28 Urine Color (Yellow) Urine Clarity (Clear) Urine pH (5.0-8.0) pH Units Ur Specific [place] (1.010-1.025) Urine Protein (Neg-Trace) mg/dL Urine Glucose (UA) (Normal) mg/dL Urine Ketones (Negative) mg/dL Urine Blood (Negative) Urine Nitrite (Negative) Urine Bilirubin (Negative) Urine Urobilinogen (Normal) mg/dL Ur Leukocyte Esterase (Negative) Urine Microscopic RBC (0-3) per hpf Urine Microscopic WBC (0-3) per hpf Ur Squamous Epith Cells (None-Few) per lpf Urine Bacteria (None-Few) per hpf Hyaline Casts (None-Few) per lpf Urine Osmolality 343 (300-1090) mOsm/kg Urine Sodium mEq/L Urine Potassium mEq/L Urine Chloride mEq/L Nasal Screen MRSA (PCR) (Negative) Chlamy pneumoniae PCR Not Detected (Not Detect) Adenovirus (PCR) Not Detected (Not Detect) B. pertussis DNA (PCR) Not Detected (Not Detect) B.parapertussis DNA PCR Not Detected (Not Detect) Coronavirus OC43 (PCR) Not Detected (Not Detect) Coronavirus HKU1 (PCR) Not Detected (Not Detect) Coronavirus 229E (PCR) Not Detected (Not Detect) Coronavirus NL63 (PCR) Not Detected (Not Detect) Hep Bs Antigen Nonreactive (Nonreactive) Hep Bs Antibody 0.00 mIU/mL Herpes Simplex Source HSV I (Not Detect) HSV II (Not Detect) HIV Ag/Ab Combo Qual (Nonreactive) Human Metapneumovir PCR Not Detected (Not Detect) Influenza A (H1) PCR Not Detected (Not Detect) Influ A (H1N1/09) PCR Not Detected (Not Detect) Influenza A (H3) PCR Not Detected (Not Detect) Influenza A Untype (PCR) Not Detected (Not Detect) Influenza Type B (PCR) Not Detected (Not Detect) M.pneumoniae DNA (PCR) Not Detected (Not Detect) Parainfluenza 1 (PCR) Not Detected (Not Detect) Parainfluenza 2 (PCR) Not Detected (Not Detect) Parainfluenza 3 (PCR) Not Detected (Not Detect) Parainfluenza 4 (PCR) Not Detected (Not Detect) RSV (PCR) Not Detected (Not Detect) Entero/Rhino (PCR) Not Detected (Not Detect) 06/18/18 06/17/18 06/17/18 Range/Units 10:28 18:15 11:56 Urine Color (Yellow) Urine Clarity (Clear) Urine pH (5.0-8.0) pH Units Ur Specific [place] (1.010-1.025) Urine Protein (Neg-Trace) mg/dL Urine Glucose (UA) (Normal) mg/dL Urine Ketones (Negative) mg/dL Urine Blood (Negative) Urine Nitrite (Negative) Urine Bilirubin (Negative) Urine Urobilinogen (Normal) mg/dL Ur Leukocyte Esterase (Negative) Urine Microscopic RBC (0-3) per hpf Urine Microscopic WBC (0-3) per hpf Ur Squamous Epith Cells (None-Few) per lpf Urine Bacteria (None-Few) per hpf Hyaline Casts (None-Few) per lpf Urine Osmolality (300-1090) mOsm/kg Urine Sodium 128.8 mEq/L Urine Potassium 36.5 7.5 mEq/L Urine Chloride 135 mEq/L Nasal Screen MRSA (PCR) Negative (Negative) Chlamy pneumoniae PCR (Not Detect) Adenovirus (PCR) (Not Detect) B. pertussis DNA (PCR) (Not Detect) B.parapertussis DNA PCR (Not Detect) Coronavirus OC43 (PCR) (Not Detect) Coronavirus HKU1 (PCR) (Not Detect) Coronavirus 229E (PCR) (Not Detect) Coronavirus NL63 (PCR) (Not Detect) Hep Bs Antigen (Nonreactive) Hep Bs Antibody mIU/mL Herpes Simplex Source HSV I (Not Detect) HSV II (Not Detect) HIV Ag/Ab Combo Qual (Nonreactive) Human Metapneumovir PCR (Not Detect) Influenza A (H1) PCR (Not Detect) Influ A (H1N1/09) PCR (Not Detect) Influenza A (H3) PCR (Not Detect) Influenza A Untype (PCR) (Not Detect) Influenza Type B (PCR) (Not Detect) M.pneumoniae DNA (PCR) (Not Detect) Parainfluenza 1 (PCR) (Not Detect) Parainfluenza 2 (PCR) (Not Detect) Parainfluenza 3 (PCR) (Not Detect) Parainfluenza 4 (PCR) (Not Detect) RSV (PCR) (Not Detect) Entero/Rhino (PCR) (Not Detect) 06/17/18 Range/Units 11:30 Urine Color (Yellow) Urine Clarity (Clear) Urine pH (5.0-8.0) pH Units Ur Specific [place] (1.010-1.025) Urine Protein (Neg-Trace) mg/dL Urine Glucose (UA) (Normal) mg/dL Urine Ketones (Negative) mg/dL Urine Blood (Negative) Urine Nitrite (Negative) Urine Bilirubin (Negative) Urine Urobilinogen (Normal) mg/dL Ur Leukocyte Esterase (Negative) Urine Microscopic RBC (0-3) per hpf Urine Microscopic WBC (0-3) per hpf Ur Squamous Epith Cells (None-Few) per lpf Urine Bacteria (None-Few) per hpf Hyaline Casts (None-Few) per lpf Urine Osmolality (300-1090) mOsm/kg Urine Sodium mEq/L Urine Potassium mEq/L Urine Chloride mEq/L Nasal Screen MRSA (PCR) (Negative) Chlamy pneumoniae PCR Not Detected (Not Detect) Adenovirus (PCR) Not Detected (Not Detect) B. pertussis DNA (PCR) Not Detected (Not Detect) B.parapertussis DNA PCR Not Detected (Not Detect) Coronavirus OC43 (PCR) Not Detected (Not Detect) Coronavirus HKU1 (PCR) Not Detected (Not Detect) Coronavirus 229E (PCR) Not Detected (Not Detect) Coronavirus NL63 (PCR) Not Detected (Not Detect) Hep Bs Antigen (Nonreactive) Hep Bs Antibody mIU/mL Herpes Simplex Source HSV I (Not Detect) HSV II (Not Detect) HIV Ag/Ab Combo Qual (Nonreactive) Human Metapneumovir PCR Not Detected (Not Detect) Influenza A (H1) PCR Not Detected (Not Detect) Influ A (H1N1/09) PCR Not Detected (Not Detect) Influenza A (H3) PCR Not Detected (Not Detect) Influenza A Untype (PCR) Not Detected (Not Detect) Influenza Type B (PCR) Not Detected (Not Detect) M.pneumoniae DNA (PCR) Not Detected (Not Detect) Parainfluenza 1 (PCR) Not Detected (Not Detect) Parainfluenza 2 (PCR) Not Detected (Not Detect) Parainfluenza 3 (PCR) Not Detected (Not Detect) Parainfluenza 4 (PCR) Not Detected (Not Detect) RSV (PCR) Not Detected (Not Detect) Entero/Rhino (PCR) Not Detected (Not Detect) - Impressions Impressions Chest X-Ray 06/25/18 04:00 IMPRESSION: Stable life support device positioning. No substantial change in layering effusions, basilar opacities and probable pulmonary edema. D/ / Celio Simon / Celio Simon Interpreting Provider: Celio Simon Exam - Constitutional Vitals: Temp Pulse Resp BP Pulse Ox 99.1 F 88 18 93/57 94 06/25/18 12:00 06/25/18 12:00 06/25/18 12:00 06/25/18 12:00 06/25/18 12:00 General appearance: cooperative, no acute distress, obese - Head Head exam: Present: atraumatic, normal inspection, normocephalic - Eye Eye exam: Present: normal appearance, PERRL Pupils: Present: normal accommodation - ENT ENT exam: Present: mucous membranes moist Additional comments: Vesicular lesions noted to the tongue. - Neck Neck exam: Present: normal inspection Additional comments: HD catheter noted to the right neck with transparent dressing C/D/I. - Respiratory Respiratory exam: Present: CTAB. Absent: rales, respiratory distress, rhonchi, wheezes - Cardiovascular Cardiovascular exam: Present: RRR, +S1, +S2 - GI/Abdominal GI/Abdominal exam: Present: distended (obese), normal bowel sounds, soft. Absent: tenderness Additional comments: Lyons catheter noted to be draining dark yellow clear urine. OG tube noted with tube feeds infusing. - Extremities Exam Extremities exam: Present: normal inspection, pedal edema (1+ BLE). Absent: joint swelling, tenderness - Neurological Exam Neurological exam: Present: altered (Sedated) - Skin Skin exam: Present: dry, intact, normal color, warm - VTE Documentation of Mechanical Device: Intermittent pneumatic compression device Consult Discharge Plan - Plan Referrals: Sheryl Stahl MOTOR VEHICLE DISPATCHER [Primary Care Provider] - - Attending Attestation I examined this patient and my medical decision-making was reviewed with the Resident Physician. I agree with the documented findings, disposition and treatment plan as described except to the extent set forth below.
[2018-06-25] MEDS: Acyclovir 500 MG in D5% in Water 100 ML IVPB SCH (14:32)
[2018-06-25] MEDS: 0.9 % Sodium Chloride 1,000 ML IVC SCH (17:34)
[2018-06-25] MEDS: Insulin Human Regular 100 UNIT in 0.9 % Sodium Chloride 100 ML IVC SCH (19:57)
[2018-06-26] MEDS: Acyclovir 500 MG in D5% in Water 100 ML IVPB SCH ×2 (01:14→15:42)
[2018-06-26] MEDS: Artificial Tears SOLN 15 ML BOTTLE BOTH EYES SCH ×7 (02:21→23:01)
[2018-06-26] MEDS ORDERED: 0.9 % Sodium Chloride 250 ML ONE (03:12)
[2018-06-26 04:59] LABS: Hematocrit 25.2 % (37.5-50.1); Mean Corpuscular HGB Conc 31.7 g/dL (31.6-35.5); Mean Corpuscular Volume 97.7 fL (83.0-100.0); Mean Platelet Volume 10.2 fL (9.4-12.4); Nucleated Red Blood Cells 0.6 /100 WBC (0); Platelet Count 110 K/mcL (140-400); Red Blood Count 2.58 M/mcL (4.19-5.50); Red Cell Distribution Width 16.9 % (11.5-14.5)
[2018-06-26] MEDS: PrismaSATE BGK 4/2.5 5,000 ML CRRT SCH ×6 (05:00→08:38)
[2018-06-26 05:04] LABS: ABG Base Excess 5 mEq/L (-2 to 3); ABG HCO3 31 mEq/L (21-27); ABG Oxygen Saturation 94 % (95-98); ABG PCO2 53 mmHg (35-45); ABG PH 7.38 pH Units (7.32-7.45); ABG PO2 74 mmHg (85-104); ABG TCO2 33 mEq/L (20-26); Blood Gas Modality PRVC; Blood Gas PEEP 8 cm H2O; Blood Gas Respiration Rate 18; Blood Gas VT 500 cc
[2018-06-26 05:19] LABS: Alanine Aminotransferase 15 Units/L (7-52); Albumin 2.4 g/dL (3.5-5.7); Albumin/Globulin Ratio 0.8 (1.1-2.2); Alkaline Phosphatase 134 Units/L (34-104); Aspartate Amino Transferase 23 Units/L (13-39); BUN/Creatinine Ratio 17 (6-26); Bilirubin,Total 0.5 mg/dL (0.3-1.0); Blood Urea Nitrogen 16 mg/dL (6-20); Calcium 7.7 mg/dL (8.6-10.3); Carbon Dioxide 30 mEq/L (23-29); Chloride 105 mEq/L (98-107); Glucose 120 mg/dL (70-105); Osmolality,Calculated 288 (280-300); Sodium 138 mEq/L (136-145); Total Protein 5.4 g/dL (6.4-8.9); eGFR For Non-African Americans > 60 (> 60)
[2018-06-26] MEDS: Insulin Human Regular 100 UNIT in 0.9 % Sodium Chloride 100 ML IVC SCH (05:23)
[2018-06-26] MEDS: *HR* Heparin 5,000 UNIT/ML VIAL SQ SCH ×2 (05:24→17:11)
[2018-06-26 05:27] LABS: Anisocytosis 1+ (Not Present); Eosinophils # 0.4 K/mcL (0.0-0.6); Lymphocytes # 2.9 K/mcL (0.6-4.6); Monocytes # 1.6 K/mcL (0.0-1.3); Neutrophils # 15.5 K/mcL (1.6-8.9); Platelet Estimate Decreased (Normal)
[2018-06-26 05:28] LABS: Basophilic Stippling 1+ (Not Present); Macrocytosis Present (Not Present); Polychromasia 1+ (Not Present)
[2018-06-26] MEDS ORDERED: Gadolinium Contrast Agent (WT Based) IV PRN (06:09)
[2018-06-26] MEDS: FentaNYL (PF) 2,500 MCG in EMPTY BAG 1 EACH IVC SCH (06:12)
--- NOTE | 2018-06-26 07:24 | Pulmonology Progress Note ---
<EvanKaroang M - Last Filed: 06/26/18 10:10> Date of Encounter: 06/26/18 Objective PUL Vital signs: Last Vital Signs Temp 98.0 F 06/26/18 08:00 Pulse 90 06/26/18 09:00 Resp 20 06/26/18 09:37 BP 122/104 06/26/18 09:37 Pulse Ox 91 06/26/18 09:37 Ventilator Settings Ventilator Settings: Ventilator Settings, Last 8 Hours Ventilator Tidal Volume 500 Setting Ventilator Tidal Volume 500 Setting Ventilator Tidal Volume 500 Setting Ventilator Tidal Volume 500 Setting Ventilator Tidal Volume 500 Setting Ventilator Tidal Volume 500 Setting Ventilator Tidal Volume 500 Setting Ventilator Tidal Volume 500 Setting Ventilator Tidal Volume 500 Setting Ventilator Tidal Volume 500 Setting Ventilator Tidal Volume 500 Setting Ventilator Tidal Volume 500 Setting Ventilator Respiratory Rate 18 Setting Ventilator Respiratory Rate 18 Setting Ventilator Respiratory Rate 18 Setting Ventilator Respiratory Rate 18 Setting Ventilator Respiratory Rate 18 Setting Ventilator Respiratory Rate 18 Setting Ventilator Respiratory Rate 18 Setting Ventilator Respiratory Rate 18 Setting Ventilator Respiratory Rate 18 Setting Ventilator Respiratory Rate 18 Setting Ventilator Respiratory Rate 18 Setting Ventilator Respiratory Rate 18 Setting Actual Respiratory Rate 22 Actual Respiratory Rate 22 Actual Respiratory Rate 18 Actual Respiratory Rate 18 Actual Respiratory Rate 18 Actual Respiratory Rate 18 Actual Respiratory Rate 18 Actual Respiratory Rate 18 Actual Respiratory Rate 18 Actual Respiratory Rate 18 Actual Respiratory Rate 18 Positive End Expiratory 8 Pressure Positive End Expiratory 8 Pressure Positive End Expiratory 8 Pressure Positive End Expiratory 8 Pressure Positive End Expiratory 8 Pressure Positive End Expiratory 8 Pressure Positive End Expiratory 8 Pressure Positive End Expiratory 8 Pressure Positive End Expiratory 8 Pressure Positive End Expiratory 8 Pressure Positive End Expiratory 8 Pressure Positive End Expiratory 8 Pressure Peak Inspiratory Airway 48 Pressure Peak Inspiratory Airway 48 Pressure Peak Inspiratory Airway 41 Pressure Peak Inspiratory Airway 41 Pressure Peak Inspiratory Airway 40 Pressure Peak Inspiratory Airway 42 Pressure Peak Inspiratory Airway 41 Pressure Peak Inspiratory Airway 43 Pressure Peak Inspiratory Airway 42 Pressure Peak Inspiratory Airway 42 Pressure Peak Inspiratory Airway 39 Pressure Results - Laboratory Findings CBC and BMP: 06/26/18 04:00 06/26/18 04:00 ABG ABG pH 7.38 pH Units (7.32-7.45) 06/26/18 04:58 ABG pCO2 53 mmHg (35-45) H 06/26/18 04:58 ABG pO2 74 mmHg (85-104) L 06/26/18 04:58 ABG O2 Saturation 94 % (95-98) L 06/26/18 04:58 PT/INR, D-dimer PT 16.7 Seconds (9.4-12.1) H 06/22/18 03:45 D-Dimer 3465 ng/mLFEU (0-500) H 06/18/18 08:08 Abnormal lab findings: Abnormal lab results WBC 20.4 K/mcL (4.3-11.1) H 06/26/18 04:00 RBC 2.58 M/mcL (4.19-5.50) L 06/26/18 04:00 Hgb 8.0 g/dL (12.9-16.9) L D 06/26/18 04:00 Hct 25.2 % (37.5-50.1) L 06/26/18 04:00 RDW 16.9 % (11.5-14.5) H 06/26/18 04:00 Plt Count 110 K/mcL (140-400) L 06/26/18 04:00 Immature Gran % 14.0 % (0-4) H 06/24/18 03:00 Band Neutrophils % 8.0 % (0-4) H 06/26/18 04:00 Metamyelocytes % 2.0 % (0) H 06/25/18 03:15 Neutrophils # 15.5 K/mcL (1.6-8.9) H 06/26/18 04:00 Monocytes # 1.6 K/mcL (0.0-1.3) H 06/26/18 04:00 Nucleated RBCs/100 WBC 0.6 /100 WBC (0) H 06/26/18 04:00 Toxic Granulation Present (Not Present) A 06/18/18 03:05 Toxic Vacuolation Present (Not Present) A 06/22/18 03:45 Platelet Estimate Decreased (Normal) L 06/26/18 04:00 Large Platelets Present (Not Present) A 06/23/18 03:15 Immature Plt Fraction 27.2 % (1.1-6.1) H 06/22/18 03:45 Polychromasia 1+ (Not Present) A 06/26/18 04:00 Basophilic Stippling 1+ (Not Present) A 06/26/18 04:00 Anisocytosis 1+ (Not Present) A 06/26/18 04:00 Macrocytosis Present (Not Present) A 06/26/18 04:00 PT 16.7 Seconds (9.4-12.1) H 06/22/18 03:45 APTT 62.8 Seconds (26.0-36.0) H 06/23/18 08:00 Fibrinogen 578 mg/dL (169-393) H 06/18/18 08:08 D-Dimer 3465 ng/mLFEU (0-500) H 06/18/18 08:08 ABG pCO2 53 mmHg (35-45) H 06/26/18 04:58 ABG pO2 74 mmHg (85-104) L 06/26/18 04:58 ABG HCO3 31 mEq/L (21-27) H 06/26/18 04:58 ABG Total CO2 33 mEq/L (20-26) H 06/26/18 04:58 ABG O2 Saturation 94 % (95-98) L 06/26/18 04:58 ABG Base Excess 5 mEq/L (-2 to 3) H 06/26/18 04:58 Carbon Dioxide 30 mEq/L (23-29) H 06/26/18 04:00 Glucose 120 mg/dL (70-105) H 06/26/18 04:00 POC Glucose 108 mg/dL (70-99) H 06/26/18 09:16 Calcium 7.7 mg/dL (8.6-10.3) L 06/26/18 04:00 Venous Ioniz Calcium 1.01 mmol/L (1.15-1.35) L 06/24/18 03:13 Phosphorus 2.3 mg/dL (2.7-4.5) L 06/24/18 10:00 Direct Bilirubin 0.4 mg/dL (0.0-0.2) H 06/23/18 03:15 Alkaline Phosphatase 134 Units/L (34-104) H 06/26/18 04:00 Troponin I 0.92 ng/mL (< 0.04) H* 06/17/18 22:33 Serum Total Protein 5.4 g/dL (6.4-8.9) L 06/26/18 04:00 Albumin 2.4 g/dL (3.5-5.7) L 06/26/18 04:00 Albumin/Globulin Ratio 0.8 (1.1-2.2) L 06/26/18 04:00 Amylase 20 Units/L (29-103) L 06/23/18 16:27 Procalcitonin 107.11 ng/mL (<=0.07) H 06/17/18 16:40 Urine Protein 30 mg/dL (Neg-Trace) H 06/24/18 11:15 Urine Blood Moderate (Negative) H 06/24/18 11:15 Urine Bilirubin Small (Negative) H 06/24/18 11:15 Ur Leukocyte Esterase Moderate (Negative) H 06/24/18 11:15 Urine Microscopic RBC 3-5 per hpf (0-3) H 06/24/18 11:15 Urine Microscopic WBC 50-100 per hpf (0-3) H 06/24/18 11:15 Ur Squamous Epith Cells Many per lpf (None-Few) H 06/24/18 11:15 Vancomycin Trough 18 mcg/mL (5-10) H 06/19/18 08:20 Urine Opiates Screen Positive ng/mL (Jnykyv=143) H 06/18/18 10:37 U Benzodiazepines Scrn Positive ng/mL (Pyjegl=959) H 06/18/18 10:37 HSV I DETECTED (Not Detect) A 06/24/18 15:10 - Microbiology Findings Microbiology Findings: Microbiology, Last 48 Hours 06/19/18 12:46 Blood Culture - Final Peripheral Venipuncture No growth. Final report. 06/19/18 12:46 Blood Culture - Final Peripheral Venipuncture No growth. Final report. 06/24/18 11:35 Blood Culture - Preliminary Peripheral Venipuncture Culture is incubating and being continuously monitored for growth. Final report to follow. 06/24/18 11:35 Blood Culture - Preliminary Peripheral Venipuncture Culture is incubating and being continuously monitored for growth. Final report to follow. 06/18/18 20:45 Sputum Culture - Final Sputum - Clinical Findings Intake & Output: Intake & Output 06/25/18 06/26/18 06/26/18 23:59 07:59 15:59 Intake Total 222 / 222 473 / 473 5124 / 5124 Output Total 1283 / 1283 1060 / 1060 234 / 234 Balance -1061 / -1061 -587 / -587 4890 / 4890 Weight 133 kg Consult Discharge Plan - Plan Referrals: Sheryl Stahl, GEM TECHNICIAN [Primary Care Provider] - - Attending Attestation I examined this patient and my medical decision-making was reviewed with the Resident Physician. I agree with the documented findings, disposition and treatment plan as described except to the extent set forth below. Patient seen and examined. Labs, radiology, chart personally reviewed. Agree with resident's history and physical, assessment, plan with following comments: CAFETERIA SUPERVISOR: Patient doesn't follows commands, Patient will need LP. Discussed with Dr. Olguin. MRI of brain. Pulmonary: Acceptable oxygenation and ventilation and there is some improvement. Will plan for SBT when more stable. Cardiovascular: stable. Off pressors GI: Nutrition per dietary and GI prophylaxis per routine Heme: DVT prophylaxis per routine Renal; urine out put and renal funtion reviewed. Replace electrolytes and continue diuresis. Endorcine: blood glucose is monitored Lines: all lines checked and no evidence of infections Skin: skin care to prevent pressure ulcers per nursing routine care Will discuss with family when available. <Maria GBonnie E - Last Filed: 06/26/18 10:49> Date of Encounter: 06/26/18 Time of Encounter: 07:20 Assessment and Plan (1) Septic shock Current Visit: Yes Status: Acute sepsis suspected secondary to karo fungemia. Leviphed stopped. MAP this morning 64. Vanc and Zosyn discontinued as per ID. On fluconazole for fungemia, possible from UTI. Acyclovir started yesterday for possible herpes encephalitis , MRI brain ordered, LP possible today. No growth on repeat cultures from . New cultures were drawn on 06/24/18 waiting on culture growth. CT scan 06/23/18 showed thickening of the bladder wall possibly due to cystitis. Small bilateral pleural effusions with bibasilar pulmonary airspace opacities, favored to be atelectasis, sludge within the gallbladder. Mildly enlarged anterior mediastinal lymphnode and peripancreatic nodes, may be reactive. (2) Acute respiratory failure with hypoxemia Current Visit: Yes Status: Acute On ventilator Chest XR from this morning shows ET tube approxamately 4 cm above sanjeev. pH is improving, 7.38 today. Continue to monitor and repeat ABGs if changes in respiratory status. (3) Oral lesion Current Visit: Yes Status: Acute Noted on tongue PCR positive for HSV1 Started acyclovir yesterday LP today do to possible encephalitis MRI today do to possible to encephalitis (4) COPD (chronic obstructive pulmonary disease) Current Visit: Yes Status: Chronic Continue ventilator, adjust as tolerated. Qualifiers: COPD type: emphysema Emphysema type: unspecified Qualified Code(s): J43.9 - Emphysema, unspecified (5) Systolic heart failure Current Visit: Yes Status: Acute MAP today 70. Continue to monitor keep MAP above 60. Qualifiers: Heart failure chronicity: unspecified Qualified Code(s): I50.20 - Unspecified systolic (congestive) heart failure (6) LUCILA (acute kidney injury) Current Visit: Yes Status: Acute improvement of creatinine, 0.94 today. Urine output is up to approximately 34 ml /hr. Nephrology following. Nephrology planning on switching patient to intermittent dialysis (7) Hypocalcemia Current Visit: Yes Status: Acute Continue to monitor. Calcium today at 7.7. Replace if necessary (8) Thrombocytopenia Current Visit: Yes Status: Resolved Platelets slightly decreased today to 110. Continue to monitor. 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 NO heparin was in use in the lines which could have caused the excessive clotting on dialysis filter. Also, platelet count could have been decreased do to septic shock. (10) Hypokalemia Current Visit: Yes Status: Resolved resolved, today potassium is 4.0, stable (11) Type 2 diabetes mellitus Current Visit: Yes Status: Chronic Switched to subcutaneous insulin medium sliding scale q4 Qualifiers: Diabetes mellitus senior care insulin use: with senior care use Diabetes mellitus complication status: with unspecified complications Qualified Code(s) : E11.8 - Type 2 diabetes mellitus with unspecified complications; Z79.4 - alf (current) use of insulin (12) DVT prophylaxis Current Visit: Yes Status: Acute Heparin 5000 units q12 Subjective Principal diagnosis: septic shock Interval history: Mr. Mccarthy was seen at bedside this morning. He is sedated and intubated and on ventilator. BUN And creatinine have decreased to normal levels. WBC count decreased from yesterday. ABGs normalizing. 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 Vancomycin and zosyn stopped yesterday. 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 Possible LP today, MRI today both for possible herpes encephalitis. Currently on Heparin for DVT prophylaxis. Objective PUL Vital signs: Last Vital Signs Temp 97.5 F L 06/26/18 06:00 Pulse 83 06/26/18 07:00 Resp 18 06/26/18 07:00 BP 85/54 06/26/18 07:00 Pulse Ox 94 06/26/18 07:00 General appearance: other (intubated and sedated) Eyes: nonicteric ENT: oropharynx dry, other (lesions noted on upper lip and tongue, red, crusted boarders) Effort: other (intubated on vent) Auscultation: bilateral: wheezes (upper lobes) Cardiovascular: regular rate and rhythm Gastrointestinal: normoactive bowel sounds, soft, non-distended Integumentary: other (upper lip and tongue noted red lesions with cursted boarders) Extremities: no cyanosis, edema (2+ pitting to calves) other (intubated and sedated) Ventilator Settings Ventilator Settings: Ventilator Settings, Last 8 Hours Ventilator Tidal Volume 500 Setting Ventilator Tidal Volume 500 Setting Ventilator Tidal Volume 500 Setting Ventilator Tidal Volume 500 Setting Ventilator Tidal Volume 500 Setting Ventilator Tidal Volume 500 Setting Ventilator Tidal Volume 500 Setting Ventilator Tidal Volume 500 Setting Ventilator Tidal Volume 500 Setting Ventilator Tidal Volume 500 Setting Ventilator Tidal Volume 500 Setting Ventilator Tidal Volume 500 Setting Ventilator Tidal Volume 500 Setting Ventilator Respiratory Rate 18 Setting Ventilator Respiratory Rate 18 Setting Ventilator Respiratory Rate 18 Setting Ventilator Respiratory Rate 18 Setting Ventilator Respiratory Rate 18 Setting Ventilator Respiratory Rate 18 Setting Ventilator Respiratory Rate 18 Setting Ventilator Respiratory Rate 18 Setting Ventilator Respiratory Rate 18 Setting Ventilator Respiratory Rate 18 Setting Ventilator Respiratory Rate 18 Setting Ventilator Respiratory Rate 18 Setting Ventilator Respiratory Rate 18 Setting Actual Respiratory Rate 18 Actual Respiratory Rate 18 Actual Respiratory Rate 18 Actual Respiratory Rate 18 Actual Respiratory Rate 18 Actual Respiratory Rate 18 Actual Respiratory Rate 18 Actual Respiratory Rate 18 Actual Respiratory Rate 18 Actual Respiratory Rate 18 Actual Respiratory Rate 18 Actual Respiratory Rate 19 Positive End Expiratory 8 Pressure Positive End Expiratory 8 Pressure Positive End Expiratory 8 Pressure Positive End Expiratory 8 Pressure Positive End Expiratory 8 Pressure Positive End Expiratory 8 Pressure Positive End Expiratory 8 Pressure Positive End Expiratory 8 Pressure Positive End Expiratory 8 Pressure Positive End Expiratory 8 Pressure Positive End Expiratory 8 Pressure Positive End Expiratory 8 Pressure Positive End Expiratory 8 Pressure Peak Inspiratory Airway 40 Pressure Peak Inspiratory Airway 42 Pressure Peak Inspiratory Airway 41 Pressure Peak Inspiratory Airway 43 Pressure Peak Inspiratory Airway 42 Pressure Peak Inspiratory Airway 42 Pressure Peak Inspiratory Airway 39 Pressure Peak Inspiratory Airway 41 Pressure Peak Inspiratory Airway 44 Pressure Peak Inspiratory Airway 42 Pressure Peak Inspiratory Airway 43 Pressure Peak Inspiratory Airway 44 Pressure Results - Laboratory Findings CBC and BMP: 06/26/18 04:00 06/26/18 04:00 ABG ABG pH 7.38 pH Units (7.32-7.45) 06/26/18 04:58 ABG pCO2 53 mmHg (35-45) H 06/26/18 04:58 ABG pO2 74 mmHg (85-104) L 06/26/18 04:58 ABG O2 Saturation 94 % (95-98) L 06/26/18 04:58 PT/INR, D-dimer PT 16.7 Seconds (9.4-12.1) H 06/22/18 03:45 D-Dimer 3465 ng/mLFEU (0-500) H 06/18/18 08:08 Abnormal lab findings: Abnormal lab results WBC 20.4 K/mcL (4.3-11.1) H 06/26/18 04:00 RBC 2.58 M/mcL (4.19-5.50) L 06/26/18 04:00 Hgb 8.0 g/dL (12.9-16.9) L D 06/26/18 04:00 Hct 25.2 % (37.5-50.1) L 06/26/18 04:00 RDW 16.9 % (11.5-14.5) H 06/26/18 04:00 Plt Count 110 K/mcL (140-400) L 06/26/18 04:00 Immature Gran % 14.0 % (0-4) H 06/24/18 03:00 Band Neutrophils % 8.0 % (0-4) H 06/26/18 04:00 Metamyelocytes % 2.0 % (0) H 06/25/18 03:15 Neutrophils # 15.5 K/mcL (1.6-8.9) H 06/26/18 04:00 Monocytes # 1.6 K/mcL (0.0-1.3) H 06/26/18 04:00 Nucleated RBCs/100 WBC 0.6 /100 WBC (0) H 06/26/18 04:00 Toxic Granulation Present (Not Present) A 06/18/18 03:05 Toxic Vacuolation Present (Not Present) A 06/22/18 03:45 Platelet Estimate Decreased (Normal) L 06/26/18 04:00 Large Platelets Present (Not Present) A 06/23/18 03:15 Immature Plt Fraction 27.2 % (1.1-6.1) H 06/22/18 03:45 Polychromasia 1+ (Not Present) A 06/26/18 04:00 Basophilic Stippling 1+ (Not Present) A 06/26/18 04:00 Anisocytosis 1+ (Not Present) A 06/26/18 04:00 Macrocytosis Present (Not Present) A 06/26/18 04:00 PT 16.7 Seconds (9.4-12.1) H 06/22/18 03:45 APTT 62.8 Seconds (26.0-36.0) H 06/23/18 08:00 Fibrinogen 578 mg/dL (169-393) H 06/18/18 08:08 D-Dimer 3465 ng/mLFEU (0-500) H 06/18/18 08:08 ABG pCO2 53 mmHg (35-45) H 06/26/18 04:58 ABG pO2 74 mmHg (85-104) L 06/26/18 04:58 ABG HCO3 31 mEq/L (21-27) H 06/26/18 04:58 ABG Total CO2 33 mEq/L (20-26) H 06/26/18 04:58 ABG O2 Saturation 94 % (95-98) L 06/26/18 04:58 ABG Base Excess 5 mEq/L (-2 to 3) H 06/26/18 04:58 Carbon Dioxide 30 mEq/L (23-29) H 06/26/18 04:00 Glucose 120 mg/dL (70-105) H 06/26/18 04:00 POC Glucose 110 mg/dL (70-99) H 06/26/18 06:53 Calcium 7.7 mg/dL (8.6-10.3) L 06/26/18 04:00 Venous Ioniz Calcium 1.01 mmol/L (1.15-1.35) L 06/24/18 03:13 Phosphorus 2.3 mg/dL (2.7-4.5) L 06/24/18 10:00 Direct Bilirubin 0.4 mg/dL (0.0-0.2) H 06/23/18 03:15 Alkaline Phosphatase 134 Units/L (34-104) H 06/26/18 04:00 Troponin I 0.92 ng/mL (< 0.04) H* 06/17/18 22:33 Serum Total Protein 5.4 g/dL (6.4-8.9) L 06/26/18 04:00 Albumin 2.4 g/dL (3.5-5.7) L 06/26/18 04:00 Albumin/Globulin Ratio 0.8 (1.1-2.2) L 06/26/18 04:00 Amylase 20 Units/L (29-103) L 06/23/18 16:27 Procalcitonin 107.11 ng/mL (<=0.07) H 06/17/18 16:40 Urine Protein 30 mg/dL (Neg-Trace) H 06/24/18 11:15 Urine Blood Moderate (Negative) H 06/24/18 11:15 Urine Bilirubin Small (Negative) H 06/24/18 11:15 Ur Leukocyte Esterase Moderate (Negative) H 06/24/18 11:15 Urine Microscopic RBC 3-5 per hpf (0-3) H 06/24/18 11:15 Urine Microscopic WBC 50-100 per hpf (0-3) H 06/24/18 11:15 Ur Squamous Epith Cells Many per lpf (None-Few) H 06/24/18 11:15 Vancomycin Trough 18 mcg/mL (5-10) H 06/19/18 08:20 Urine Opiates Screen Positive ng/mL (Uujoyy=878) H 06/18/18 10:37 U Benzodiazepines Scrn Positive ng/mL (Gmclph=541) H 06/18/18 10:37 HSV I DETECTED (Not Detect) A 06/24/18 15:10 - Microbiology Findings Microbiology Findings: Microbiology, Last 48 Hours 06/19/18 12:46 Blood Culture - Final Peripheral Venipuncture No growth. Final report. 06/19/18 12:46 Blood Culture - Final Peripheral Venipuncture No growth. Final report. 06/24/18 11:35 Blood Culture - Preliminary Peripheral Venipuncture Culture is incubating and being continuously monitored for growth. Final report to follow. 06/24/18 11:35 Blood Culture - Preliminary Peripheral Venipuncture Culture is incubating and being continuously monitored for growth. Final report to follow. 06/18/18 20:45 Sputum Culture - Final Sputum - Clinical Findings Intake & Output: Intake & Output 06/25/18 06/25/18 06/26/18 15:59 23:59 07:59 Intake Total 627 / 627 222 / 222 473 / 473 Output Total 1329 / 1329 1283 / 1283 1060 / 1060 Balance -702 / -702 -1061 / -1061 -587 / -587 Weight 133 kg - VTE Documentation of Mechanical Device: Intermittent pneumatic compression device
[2018-06-26] MEDS: Fluconazole 400 MG/200 ML IVPB SCH (08:10)
[2018-06-26] MEDS: Nystatin SUSP 5 ML UD.LIQ PO SCH ×4 (08:10→20:36)
[2018-06-26] MEDS: Chlorhexidine Rinse 15 ML MOUTHWASH MM SCH ×2 (08:10→20:36)
[2018-06-26] MEDS: Pantoprazole 40 MG VIAL IVP SCH (08:11)
[2018-06-26] MEDS: Sennosides/Docusate Sodium TABLET PO SCH (08:11)
--- NOTE | 2018-06-26 08:12 | Nephrology Progress Note ---
Date of Encounter: 06/26/18 Time of Encounter: 08:50 - Assessment and Plan (1) LUCILA (acute kidney injury) Current Visit: Yes Status: Acute Acute kidney injury, currently on Kimmie Patient's chemistries have remained stable and he appears to be doing well Volume status appears to be improving daily. He continues to have increased urine output, which is an improvement each day Additionally, the patient's respiratory status seems to have improved on a daily basis as well The patient is also seemed to tolerate more aggressive fluid removal with Kimmie , and has still been able to be weaned from pressors Considering all of these things, it is reasonable at this time to transition from Kimmie to intermittent hemodialysis with pressor support during HD as needed If the patient's pulmonary status requires fluid removal diuretics are appropriate We will check for intermittent hemodialysis in the morning (2) Acute respiratory failure with hypoxemia Current Visit: Yes Status: Acute Currently intubated, management per primary team We will continue to manage fluid removal with intermittent hemodialysis as possible The patient has been making urine and his volume status has been improving IV diuretics are appropriate as needed for pulmonary edema (3) Septic shock Current Visit: Yes Status: Acute Septic shock with unknown source and multiple organ system dysfunction Patient's blood pressure continues to improve, currently off pressors at baseline May require use of pressors during intermittent hemodialysis Management per primary team and infectious disease (4) Anemia Current Visit: Yes Status: Acute Acute blood loss anemia We will continue to monitor this, consider addition of iron supplementation Qualifiers: Anemia type: other cause Other causes of anemia: acute posthemorrhagic Qualified Code(s): D62 - Acute posthemorrhagic anemia Subjective Principal diagnosis: septic shock Interval history: The patient is resting in bed. He has remained on mechanical ventilation, however nursing staff has attempted to wean down on sedation as possible. No acute concerns overnight. The patient will undergo MRI today and also lumbar puncture to assess altered mentation. Objective - Vital Signs Vital signs: Vital Signs Temp Pulse Resp BP Pulse Ox 06/26/18 07:24 18 85/35 94 06/26/18 07:00 83 18 85/54 94 06/26/18 06:00 97.5 F L 90 18 95/51 94 06/26/18 05:35 18 90/54 94 06/26/18 05:00 87 18 95/60 94 06/26/18 04:00 97.4 F L 87 18 96/55 95 08/30/18 03:50 18 110/66 94 06/26/18 03:00 96 18 95/69 94 06/26/18 02:00 97.4 F L 80 18 89/52 94 06/26/18 01:05 18 91/59 95 06/26/18 01:00 81 18 94/57 95 06/26/18 00:00 94.2 F L 78 18 90/60 95 06/25/18 23:25 19 102/60 96 06/25/18 23:00 75 18 104/62 95 06/25/18 22:00 80 18 95/79 96 06/25/18 21:38 18 102/68 96 06/25/18 21:00 81 18 99/67 96 06/25/18 20:00 97.7 F 79 18 86/69 95 06/25/18 19:40 18 71/56 95 06/25/18 18:58 77 16 93/59 95 06/25/18 18:14 16 101/63 95 06/25/18 18:00 81 16 92/58 95 06/25/18 17:00 82 16 101/63 95 06/25/18 16:00 98.4 F 92 18 105/61 95 06/25/18 15:10 18 107/65 92 06/25/18 15:00 89 18 99/60 93 06/25/18 14:00 108 18 107/65 92 06/25/18 13:34 18 101/63 94 06/25/18 13:00 79 18 98/58 95 06/25/18 12:00 99.1 F 88 18 93/57 94 06/25/18 11:15 18 101/63 95 06/25/18 11:12 77 18 87/56 95 06/25/18 10:00 98.2 F 77 18 97/61 94 06/25/18 09:00 77 18 95/61 94 Intake and Output 06/25/18 06/26/18 06/26/18 23:59 07:59 15:59 Intake Total 222 / 222 473 / 473 Output Total 1283 / 1283 1060 / 1060 Balance -1061 / -1061 -587 / -587 Intake: IV Fluids 0 / 0 255 / 255 PrismaSATE BGK 4/2.5 5,000 ML @ 0 / 0 0 / 0 1000 mls/hr CRRT CONT NADIA Rx#: [id number] FentaNYL (PF) 2,500 MCG In 40 / 40 Empty Bag 1 Each @ 50 MCG/HR 1 mls/hr IVC CONT NADIA Rx#: [id number] HumuLIN R 100 UNIT In 0.9 % 30 / 30 Sodium Chloride 100 ML @ Per Protocol IVC CONT NADIA Rx#: [id number] Levophed 8 MG In Dextrose 5% 75 / 75 250 ML @ 30 MCG/MIN 58.05 mls/ hr IVC CONT NADIA Rx#:[id number] Zovirax 500 MG In Dextrose 5% 110 / 110 100 ML @ 110 mls/hr IVPB Q12H NADIA Rx#:[id number] Tube Feeding 222 / 222 218 / 218 Output: Kimmie 1013 / 1013 785 / 785 Catheter 270 / 270 275 / 275 Other: Stool Size Large Stool Consistency loose Stool Characteristics Normal for Patient Stool Color Brown Yellow # Bowel Movements 1 Weight 133 kg Blood Glucose* 113 110 Patient Weight 06/26/18 23:59 Weight 133 kg - General Appearance Exam: Gen: Vitals noted. No acute distress. Patient is sedated on ventilator HEENT: Normocephalic, atraumatic Neck: Supple. No adenopathy. Cardiac: RRR, no murmur, +S1/S2 Pulmonary: Lungs sounds are substantially more clear than yesterday, only mild crackles are heard in the bases bilaterally Abdomen: soft, nontender, no guarding Extremities: 2+ bilateral lower extremity edema, nontender calf, no cyanosis or clubbing Neuro: Patient is sedated on ventilator - Lab 06/26/18 04:00 06/26/18 04:00 Most recent lab results ABG pH 7.38 pH Units (7.32-7.45) 06/26/18 04:58 ABG pCO2 53 mmHg (35-45) H 06/26/18 04:58 ABG pO2 74 mmHg (85-104) L 06/26/18 04:58 ABG HCO3 31 mEq/L (21-27) H 06/26/18 04:58 ABG O2 Saturation 94 % (95-98) L 06/26/18 04:58 Calcium 7.7 mg/dL (8.6-10.3) L 06/26/18 04:00 Phosphorus 2.3 mg/dL (2.7-4.5) L 06/24/18 10:00 Magnesium 2.5 mg/dL (1.6-2.6) 06/24/18 03:00 Urine Sodium 128.8 mEq/L 06/17/18 18:15 - VTE Documentation of Mechanical Device: Intermittent pneumatic compression device Consult Discharge Plan - Plan Referrals: Sheryl Stahl CNP [Primary Care Provider] -
--- NOTE | 2018-06-26 09:56 | Procedure Note ---
<Bonnie Cummins E - Last Filed: 06/26/18 09:40> Date of procedure: 06/26/18 Pre-op diagnosis: possible encephalitis Post-op diagnosis: same Procedure: Lumbar Puncture Date: 06/26/2018 Time: 09:15 Indication: Altered Mental Status Resident: Dr. Mishel Chong Attending: Dr. Gordon A time-out was completed verifying correct patient, procedure, site, positioning , and special equipment if applicable. The patient was placed in the LEFT lateral decubitus position in a semi- position with help from the nursing staff. The area was cleansed and draped in usual sterile fashion. A 20-gauge 3.5 -inch spinal needle was placed in the L4-L5 interspace. No cerebrospinal fluid was collected. Dr. Cummins, Dr. Florentino, and Dr. Gordon were present for the entire procedure. Anesthesia was called for further evaluation. Estimated Blood Loss: 0 The patient tolerated the procedure well and there were no complications. Anesthesia: other (Patient intubated and sedated) Was there an marketing assistant manager present: No Estimated blood loss (cc): 0 Specimen: none attained <Inga Gordon M - Last Filed: 06/26/18 10:10> Procedure: I examined this patient and my medical decision-making was reviewed with the Resident Physician. I agree with the documented findings, disposition and treatment plan as described except to the extent set forth below. I have personally supervised resident. Patient will have procedure under flouroscopy
[2018-06-26] MEDS ORDERED: *HR* Heparin 5,000 UNIT/ML VIAL ONE (10:16)
[2018-06-26] MEDS ORDERED: Sennosides/Docusate Sodium TABLET PO PRN (10:38)
[2018-06-26] MEDS: Dexmedetomidine HCl 400 MCG/100 ML MLS IVC SCH ×2 (11:48→20:36)
[2018-06-26] MEDS: Insulin LISPRO 300 UNITS/3 ML VIAL SQ SCH ×4 (12:00→23:03)
--- NOTE | 2018-06-26 12:45 | Infectious Disease Progress No ---
Date of Encounter: 06/26/18 Time of Encounter: 08:45 - Assessment and Plan (1) Septic shock Current Visit: Yes Status: Acute The patient had 4 SIRS criteria plus lactic acidosis, acute kidney injury, acute encephalopathy, and hypotension requiring vasopressors. Likely secondary to candidemia, UTI, possible HSV encephalitis. There is also a concern that there is an underlying infectious etiology that has not been identified given the critical nature of this patient. Improved. Leukocytosis improved today. Has developed hypothermia requiring the use of the warming blanket. Tachycardia resolved. Remains intubated and sedated so unable to assess his mental status. Acute kidney injury improved. Blood cultures obtained 06/17/18 are +2 out of 2 sets for Marisela albicans, nation- sensitive. Repeat blood cultures obtained 06/19/18 are negative 2 sets. Etiology of worsening leukocytosis unclear. He did receive 4 days of steroids, which were stopped 06/19/18: lag vs. other. Continue to trend. No evidence of skin/soft tissue infection. He does have some new breakdown to the buttocks, but no clinical evidence of infection. Get CT of the chest, abdomen, and pelvis in the AM. --> showed bladder wall thickening concerning for cystitis, bilateral pleural effusions with likely atelectasis, gallbladder sludge, possible constipation, and mediastinal and peripancreatic lymphadenopathy, likely reactive. CT head showed bilateral ethmoid and sphenoid sinusitis, but no intracranial abnormality. Check amylase and lipase.--> normal. Repeat blood cultures x 2 sets now peripherally. --> no growth. Check HIV.--> nonreactive. Has completed 9 days of Vanc and Zosyn. No additional bacterial cause of the patient's symptoms has been identified. Vanc and Zosyn D/C'd 06/25/18. (2) Candidemia Current Visit: Yes Status: Acute Causative organism: Marisela albicans. Source: unclear. CT of the abdomen and pelvis is negative. He has no indwelling lines or catheters. His urine culture is positive for C. albicans. Blood cultures obtained 06/17/18 are +2 out of 2 sets for Marisela albicans, nation- sensitive. Repeat blood cultures obtained 06/19/18 are negative 2 sets. Continue fluconazole. Will ask pharmacy to assist with dosing for CRRT. Repeat LFTs normal. Duration of treatment depends on the clinical picture. Monitor liver function tests closely. Recommend ophthalmology to evaluate once patient stabilizes. (3) Pneumonia Current Visit: Yes Status: Ruled-out Location: Bilateral lower lobes. Causative organism: Unclear. Consider aspiration since the patient had altered mental status and was recently intubated. CT of the chest showed bilateral lower lobe infiltrates versus atelectasis. The patient does have a large amount of secretions coming from his ET tube. Discussed with the pulmonary team. Concern for pneumonia from their standpoint. MRSA screen completed 06/17/18 is negative. Sputum culture is NGTD. Check S. pneumo and Legionella UAT.--> negative. Check RIP.--> negative. Repeat CXR 06/23/18 showed mild pulmonary vascular congestion and atelectasis and mild pleural effusion at the right lung base, increased. CT scan of the chest 06/23/18 negative for PNA. Vanc and Zosyn discontinued 06/25/18 after 9 days. Qualifiers: Pneumonia type: due to unspecified organism Laterality: bilateral Lung location: lower lobe of lung Qualified Code(s): J18.1 - Lobar pneumonia, unspecified organism (4) UTI (urinary tract infection) Current Visit: Yes Status: Acute Causative organism: C. albicans. Per the patient's , asymptomatic prior to admission. Continue fluconazole as above. Qualifiers: Urinary tract infection type: site unspecified Hematuria presence: without hematuria Qualified Code(s): N39.0 - Urinary tract infection, site not specified (5) Encephalopathy Current Visit: Yes Status: Acute Etiology unclear, but likely related to sepsis. Per the patient's , the patient did have any complaints of neck pain, stiffness, or headache. Unable to assess mental status since the patient remains intubated and sedated. CT head negative for intracranial abnormality. 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 Recommend LP. Send CSF for cell count with diff, protein, glucose, HSV PCR, and culture. Discussed with the primary team. Continue Acyclovir. Will ask pharmacy to assist with dosing for CRRT. LFTs remain normal. Duration of treatment depends on the clinical picture. (6) LUCILA (acute kidney injury) Current Visit: Yes Status: Acute Likely multifactorial: sepsis + hypotension + other. CRRT started 06/19/18. Creatinine improved. Urine output improved. Nephrology consulted and following. Continue to trend. Dose-adjust medications. (7) Lactic acidosis Current Visit: Yes Status: Resolved Likely secondary to sepsis. Resolved. (8) Thrombocytopenia Current Visit: Yes Status: Resolved Likely secondary to sepsis. LFTs abnormal on admission. Repeat LFTs normal. Improved. Continue to trend. No acute bleeding noted on exam. Further workup and management per the primary team. (9) Acute respiratory failure with hypoxemia Current Visit: Yes Status: Acute Likely secondary to PNA vs. pulmonary edema. Currently intubated. Vent management per the pulmonary team. (10) Systolic heart failure Current Visit: Yes Status: Acute TTE was sub-optimal, but showed approximate EF 20%. Qualifiers: Heart failure chronicity: unspecified Qualified Code(s): I50.20 - Unspecified systolic (congestive) heart failure (11) Hypokalemia Current Visit: Yes Status: Resolved Resolved. (12) Elevated troponin Current Visit: Yes Status: Acute Management per the primary team. (13) Type 2 diabetes mellitus Current Visit: Yes Status: Chronic Recommend aggressive glucose monitoring and control. Management per the primary team. Qualifiers: Diabetes mellitus assistant terminal manager insulin use: with detention use Diabetes mellitus complication status: with unspecified complications Qualified Code(s) : E11.8 - Type 2 diabetes mellitus with unspecified complications; Z79.4 - oil heaterman (current) use of insulin (14) COPD (chronic obstructive pulmonary disease) Current Visit: Yes Status: Chronic Qualifiers: COPD type: emphysema Emphysema type: unspecified Qualified Code(s): J43.9 - Emphysema, unspecified (15) Oral lesion Current Visit: Yes Status: Acute Noted to the tongue. PCR positive for HSV 1. Continue Acyclovir. Will ask pharmacy to assist with dosing for CRRT. Duration of treatment depends on the clinical picture. (16) Sinusitis Current Visit: Yes Status: Acute CT of the head 06/23/18 showed sinusitis of the bilateral sphenoid and ethmoid sinuses. Causative organism unclear. Treated with 9 days of Vanc and Zosyn. Qualifiers: Sinusitis location: unspecified location Chronicity: acute Recurrence: non-recurrent Qualified Code(s): J01.90 - Acute sinusitis, unspecified - Subjective Interval history: Patient seen and examined. No acute events noted overnight. Patient remains intubated and sedated. Minimally responsive to verbal stimuli, but does not follow commands or attempt to communicate. Vasopressors are currently off. Tube feeds started and tolerating well with no residuals per nursing. Large BM yesterday. SOLEDAD started Saturday. Urine output improved. Pulm/CC team attempting LP this morning with MRI to follow this afternoon. Infect Dis PN-Objective Data - Labs CBC & Chem 7: 06/26/18 04:00 06/26/18 04:00 Labs: Laboratory Results - last 24 hr 06/25/18 06/25/18 06/25/18 13:13 15:12 15:53 WBC RBC Hgb Hct MCV MCH MCHC RDW Plt Count MPV Seg Neutrophils % Band Neutrophils % Lymphocytes % Monocytes % Eosinophils % Neutrophils # Lymphocytes # Monocytes # Eosinophils # Nucleated RBCs/100 WBC Platelet Estimate Polychromasia Basophilic Stippling Anisocytosis Macrocytosis Sample Site ABG pH ABG pCO2 ABG pO2 ABG HCO3 ABG Total CO2 ABG O2 Saturation ABG Base Excess Michael Test Respiration Rate O2 Delivery Device Blood Gas Modality Inspired O2 Tidal Volume PEEP Sodium Potassium Chloride Carbon Dioxide BUN Creatinine Est GFR ( Amer) Est GFR (Non-Af Amer) BUN/Creatinine Ratio Glucose POC Glucose 121 H 129 H 131 H Calculated Osmolality Calcium Total Bilirubin AST ALT Alkaline Phosphatase Serum Total Protein Albumin Globulin Albumin/Globulin Ratio 06/25/18 06/25/18 06/25/18 17:12 18:18 19:00 WBC RBC Hgb Hct MCV MCH MCHC RDW Plt Count MPV Seg Neutrophils % Band Neutrophils % Lymphocytes % Monocytes % Eosinophils % Neutrophils # Lymphocytes # Monocytes # Eosinophils # Nucleated RBCs/100 WBC Platelet Estimate Polychromasia Basophilic Stippling Anisocytosis Macrocytosis Sample Site ABG pH ABG pCO2 ABG pO2 ABG HCO3 ABG Total CO2 ABG O2 Saturation ABG Base Excess Michael Test Respiration Rate O2 Delivery Device Blood Gas Modality Inspired O2 Tidal Volume PEEP Sodium Potassium Chloride Carbon Dioxide BUN Creatinine Est GFR ( Amer) Est GFR (Non-Af Amer) BUN/Creatinine Ratio Glucose POC Glucose 120 H 123 H 128 H Calculated Osmolality Calcium Total Bilirubin AST ALT Alkaline Phosphatase Serum Total Protein Albumin Globulin Albumin/Globulin Ratio 06/25/18 06/25/18 06/25/18 20:16 21:06 22:06 WBC RBC Hgb Hct MCV MCH MCHC RDW Plt Count MPV Seg Neutrophils % Band Neutrophils % Lymphocytes % Monocytes % Eosinophils % Neutrophils # Lymphocytes # Monocytes # Eosinophils # Nucleated RBCs/100 WBC Platelet Estimate Polychromasia Basophilic Stippling Anisocytosis Macrocytosis Sample Site ABG pH ABG pCO2 ABG pO2 ABG HCO3 ABG Total CO2 ABG O2 Saturation ABG Base Excess Michael Test Respiration Rate O2 Delivery Device Blood Gas Modality Inspired O2 Tidal Volume PEEP Sodium Potassium Chloride Carbon Dioxide BUN Creatinine Est GFR ( Amer) Est GFR (Non-Af Amer) BUN/Creatinine Ratio Glucose POC Glucose 120 H 149 H 121 H Calculated Osmolality Calcium Total Bilirubin AST ALT Alkaline Phosphatase Serum Total Protein Albumin Globulin Albumin/Globulin Ratio 06/25/18 06/26/18 06/26/18 23:16 00:13 01:19 WBC RBC Hgb Hct MCV MCH MCHC RDW Plt Count MPV Seg Neutrophils % Band Neutrophils % Lymphocytes % Monocytes % Eosinophils % Neutrophils # Lymphocytes # Monocytes # Eosinophils # Nucleated RBCs/100 WBC Platelet Estimate Polychromasia Basophilic Stippling Anisocytosis Macrocytosis Sample Site ABG pH ABG pCO2 ABG pO2 ABG HCO3 ABG Total CO2 ABG O2 Saturation ABG Base Excess Michael Test Respiration Rate O2 Delivery Device Blood Gas Modality Inspired O2 Tidal Volume PEEP Sodium Potassium Chloride Carbon Dioxide BUN Creatinine Est GFR ( Amer) Est GFR (Non-Af Amer) BUN/Creatinine Ratio Glucose POC Glucose 113 H 119 H 130 H Calculated Osmolality Calcium Total Bilirubin AST ALT Alkaline Phosphatase Serum Total Protein Albumin Globulin Albumin/Globulin Ratio 06/26/18 06/26/18 06/26/18 02:03 04:00 04:00 WBC 20.4 H RBC 2.58 L Hgb 8.0 L D Hct 25.2 L MCV 97.7 MCH 31.0 MCHC 31.7 RDW 16.9 H Plt Count 110 L MPV 10.2 Seg Neutrophils % 68.0 Band Neutrophils % 8.0 H Lymphocytes % 14.0 Monocytes % 8.0 Eosinophils % 2.0 Neutrophils # 15.5 H Lymphocytes # 2.9 Monocytes # 1.6 H Eosinophils # 0.4 Nucleated RBCs/100 WBC 0.6 H Platelet Estimate Decreased L Polychromasia 1+ A Basophilic Stippling 1+ A Anisocytosis 1+ A Macrocytosis Present A Sample Site ABG pH ABG pCO2 ABG pO2 ABG HCO3 ABG Total CO2 ABG O2 Saturation ABG Base Excess Michael Test Respiration Rate O2 Delivery Device Blood Gas Modality Inspired O2 Tidal Volume PEEP Sodium 138 Potassium 4.0 Chloride 105 Carbon Dioxide 30 H BUN 16 Creatinine 0.94 Est GFR ( Amer) > 60 Est GFR (Non-Af Amer) > 60 BUN/Creatinine Ratio 17 Glucose 120 H POC Glucose 143 H Calculated Osmolality 288 Calcium 7.7 L Total Bilirubin 0.5 AST 23 ALT 15 Alkaline Phosphatase 134 H Serum Total Protein 5.4 L Albumin 2.4 L Globulin 3.0 Albumin/Globulin Ratio 0.8 L 06/26/18 06/26/18 06/26/18 04:10 04:58 05:03 WBC RBC Hgb Hct MCV MCH MCHC RDW Plt Count MPV Seg Neutrophils % Band Neutrophils % Lymphocytes % Monocytes % Eosinophils % Neutrophils # Lymphocytes # Monocytes # Eosinophils # Nucleated RBCs/100 WBC Platelet Estimate Polychromasia Basophilic Stippling Anisocytosis Macrocytosis Sample Site R Radial ABG pH 7.38 ABG pCO2 53 H ABG pO2 74 L ABG HCO3 31 H ABG Total CO2 33 H ABG O2 Saturation 94 L ABG Base Excess 5 H Michael Test N/A Respiration Rate 18 O2 Delivery Device Adult Vent Blood Gas Modality PRVC Inspired O2 55.0 Tidal Volume 500 PEEP 8 Sodium Potassium Chloride Carbon Dioxide BUN Creatinine Est GFR ( Amer) Est GFR (Non-Af Amer) BUN/Creatinine Ratio Glucose POC Glucose 109 H 119 H Calculated Osmolality Calcium Total Bilirubin AST ALT Alkaline Phosphatase Serum Total Protein Albumin Globulin Albumin/Globulin Ratio 06/26/18 06/26/18 06/26/18 06:07 06:53 08:21 WBC RBC Hgb Hct MCV MCH MCHC RDW Plt Count MPV Seg Neutrophils % Band Neutrophils % Lymphocytes % Monocytes % Eosinophils % Neutrophils # Lymphocytes # Monocytes # Eosinophils # Nucleated RBCs/100 WBC Platelet Estimate Polychromasia Basophilic Stippling Anisocytosis Macrocytosis Sample Site ABG pH ABG pCO2 ABG pO2 ABG HCO3 ABG Total CO2 ABG O2 Saturation ABG Base Excess Michael Test Respiration Rate O2 Delivery Device Blood Gas Modality Inspired O2 Tidal Volume PEEP Sodium Potassium Chloride Carbon Dioxide BUN Creatinine Est GFR ( Amer) Est GFR (Non-Af Amer) BUN/Creatinine Ratio Glucose POC Glucose 109 H 110 H 107 H Calculated Osmolality Calcium Total Bilirubin AST ALT Alkaline Phosphatase Serum Total Protein Albumin Globulin Albumin/Globulin Ratio 06/26/18 06/26/18 09:16 11:51 WBC RBC Hgb Hct MCV MCH MCHC RDW Plt Count MPV Seg Neutrophils % Band Neutrophils % Lymphocytes % Monocytes % Eosinophils % Neutrophils # Lymphocytes # Monocytes # Eosinophils # Nucleated RBCs/100 WBC Platelet Estimate Polychromasia Basophilic Stippling Anisocytosis Macrocytosis Sample Site ABG pH ABG pCO2 ABG pO2 ABG HCO3 ABG Total CO2 ABG O2 Saturation ABG Base Excess Michael Test Respiration Rate O2 Delivery Device Blood Gas Modality Inspired O2 Tidal Volume PEEP Sodium Potassium Chloride Carbon Dioxide BUN Creatinine Est GFR ( Amer) Est GFR (Non-Af Amer) BUN/Creatinine Ratio Glucose POC Glucose 108 H 141 H Calculated Osmolality Calcium Total Bilirubin AST ALT Alkaline Phosphatase Serum Total Protein Albumin Globulin Albumin/Globulin Ratio Cultures: Cultures 06/19/18 12:46 Blood Culture - Final Peripheral Venipuncture No growth. Final report. 06/19/18 12:46 Blood Culture - Final Peripheral Venipuncture No growth. Final report. 06/24/18 11:35 Blood Culture - Preliminary Peripheral Venipuncture Culture is incubating and being continuously monitored for growth. Final report to follow. 06/24/18 11:35 Blood Culture - Preliminary Peripheral Venipuncture Culture is incubating and being continuously monitored for growth. Final report to follow. 06/18/18 20:45 Sputum Culture - Final Sputum 06/20/18 11:30 Legionella Antigen - Final Urine,[place] Streptococcus pneumoniae Antigen (M - Final Serology 06/24/18 06/24/18 06/23/18 Range/Units 15:10 11:15 20:00 Urine Color Yellow (Yellow) Urine Clarity Hazy (Clear) Urine pH 6.0 (5.0-8.0) pH Units Ur Specific [place] 1.013 (1.010-1.025) Urine Protein 30 H (Neg-Trace) mg/dL Urine Glucose (UA) Normal (Normal) mg/dL Urine Ketones Negative (Negative) mg/dL Urine Blood Moderate H (Negative) Urine Nitrite Negative (Negative) Urine Bilirubin Small H (Negative) Urine Urobilinogen Normal (Normal) mg/dL Ur Leukocyte Esterase Moderate H (Negative) Urine Microscopic RBC 3-5 H (0-3) per hpf Urine Microscopic WBC 50-100 H (0-3) per hpf Ur Squamous Epith Cells Many H (None-Few) per lpf Urine Bacteria None Seen (None-Few) per hpf Hyaline Casts None Seen (None-Few) per lpf Urine Osmolality (300-1090) mOsm/kg Urine Sodium mEq/L Urine Potassium mEq/L Urine Chloride mEq/L Nasal Screen MRSA (PCR) (Negative) Chlamy pneumoniae PCR (Not Detect) Adenovirus (PCR) (Not Detect) B. pertussis DNA (PCR) (Not Detect) B.parapertussis DNA PCR (Not Detect) Coronavirus OC43 (PCR) (Not Detect) Coronavirus HKU1 (PCR) (Not Detect) Coronavirus 229E (PCR) (Not Detect) Coronavirus NL63 (PCR) (Not Detect) Hep Bs Antigen (Nonreactive) Hep Bs Antibody mIU/mL Herpes Simplex Source [place] HSV I DETECTED A (Not Detect) HSV II Not Detected (Not Detect) HIV Ag/Ab Combo Qual Nonreactive (Nonreactive) Human Metapneumovir PCR (Not Detect) Influenza A (H1) PCR (Not Detect) Influ A (H1N1/09) PCR (Not Detect) Influenza A (H3) PCR (Not Detect) Influenza A Untype (PCR) (Not Detect) Influenza Type B (PCR) (Not Detect) M.pneumoniae DNA (PCR) (Not Detect) Parainfluenza 1 (PCR) (Not Detect) Parainfluenza 2 (PCR) (Not Detect) Parainfluenza 3 (PCR) (Not Detect) Parainfluenza 4 (PCR) (Not Detect) RSV (PCR) (Not Detect) Entero/Rhino (PCR) (Not Detect) 06/23/18 06/20/18 06/18/18 Range/Units 08:10 11:30 10:28 Urine Color (Yellow) Urine Clarity (Clear) Urine pH (5.0-8.0) pH Units Ur Specific [place] (1.010-1.025) Urine Protein (Neg-Trace) mg/dL Urine Glucose (UA) (Normal) mg/dL Urine Ketones (Negative) mg/dL Urine Blood (Negative) Urine Nitrite (Negative) Urine Bilirubin (Negative) Urine Urobilinogen (Normal) mg/dL Ur Leukocyte Esterase (Negative) Urine Microscopic RBC (0-3) per hpf Urine Microscopic WBC (0-3) per hpf Ur Squamous Epith Cells (None-Few) per lpf Urine Bacteria (None-Few) per hpf Hyaline Casts (None-Few) per lpf Urine Osmolality 343 (300-1090) mOsm/kg Urine Sodium mEq/L Urine Potassium mEq/L Urine Chloride mEq/L Nasal Screen MRSA (PCR) (Negative) Chlamy pneumoniae PCR Not Detected (Not Detect) Adenovirus (PCR) Not Detected (Not Detect) B. pertussis DNA (PCR) Not Detected (Not Detect) B.parapertussis DNA PCR Not Detected (Not Detect) Coronavirus OC43 (PCR) Not Detected (Not Detect) Coronavirus HKU1 (PCR) Not Detected (Not Detect) Coronavirus 229E (PCR) Not Detected (Not Detect) Coronavirus NL63 (PCR) Not Detected (Not Detect) Hep Bs Antigen Nonreactive (Nonreactive) Hep Bs Antibody 0.00 mIU/mL Herpes Simplex Source HSV I (Not Detect) HSV II (Not Detect) HIV Ag/Ab Combo Qual (Nonreactive) Human Metapneumovir PCR Not Detected (Not Detect) Influenza A (H1) PCR Not Detected (Not Detect) Influ A (H1N1/09) PCR Not Detected (Not Detect) Influenza A (H3) PCR Not Detected (Not Detect) Influenza A Untype (PCR) Not Detected (Not Detect) Influenza Type B (PCR) Not Detected (Not Detect) M.pneumoniae DNA (PCR) Not Detected (Not Detect) Parainfluenza 1 (PCR) Not Detected (Not Detect) Parainfluenza 2 (PCR) Not Detected (Not Detect) Parainfluenza 3 (PCR) Not Detected (Not Detect) Parainfluenza 4 (PCR) Not Detected (Not Detect) RSV (PCR) Not Detected (Not Detect) Entero/Rhino (PCR) Not Detected (Not Detect) 06/18/18 06/17/18 06/17/18 Range/Units 10:28 18:15 11:56 Urine Color (Yellow) Urine Clarity (Clear) Urine pH (5.0-8.0) pH Units Ur Specific [place] (1.010-1.025) Urine Protein (Neg-Trace) mg/dL Urine Glucose (UA) (Normal) mg/dL Urine Ketones (Negative) mg/dL Urine Blood (Negative) Urine Nitrite (Negative) Urine Bilirubin (Negative) Urine Urobilinogen (Normal) mg/dL Ur Leukocyte Esterase (Negative) Urine Microscopic RBC (0-3) per hpf Urine Microscopic WBC (0-3) per hpf Ur Squamous Epith Cells (None-Few) per lpf Urine Bacteria (None-Few) per hpf Hyaline Casts (None-Few) per lpf Urine Osmolality (300-1090) mOsm/kg Urine Sodium 128.8 mEq/L Urine Potassium 36.5 7.5 mEq/L Urine Chloride 135 mEq/L Nasal Screen MRSA (PCR) Negative (Negative) Chlamy pneumoniae PCR (Not Detect) Adenovirus (PCR) (Not Detect) B. pertussis DNA (PCR) (Not Detect) B.parapertussis DNA PCR (Not Detect) Coronavirus OC43 (PCR) (Not Detect) Coronavirus HKU1 (PCR) (Not Detect) Coronavirus 229E (PCR) (Not Detect) Coronavirus NL63 (PCR) (Not Detect) Hep Bs Antigen (Nonreactive) Hep Bs Antibody mIU/mL Herpes Simplex Source HSV I (Not Detect) HSV II (Not Detect) HIV Ag/Ab Combo Qual (Nonreactive) Human Metapneumovir PCR (Not Detect) Influenza A (H1) PCR (Not Detect) Influ A (H1N1/09) PCR (Not Detect) Influenza A (H3) PCR (Not Detect) Influenza A Untype (PCR) (Not Detect) Influenza Type B (PCR) (Not Detect) M.pneumoniae DNA (PCR) (Not Detect) Parainfluenza 1 (PCR) (Not Detect) Parainfluenza 2 (PCR) (Not Detect) Parainfluenza 3 (PCR) (Not Detect) Parainfluenza 4 (PCR) (Not Detect) RSV (PCR) (Not Detect) Entero/Rhino (PCR) (Not Detect) 06/17/18 Range/Units 11:30 Urine Color (Yellow) Urine Clarity (Clear) Urine pH (5.0-8.0) pH Units Ur Specific [place] (1.010-1.025) Urine Protein (Neg-Trace) mg/dL Urine Glucose (UA) (Normal) mg/dL Urine Ketones (Negative) mg/dL Urine Blood (Negative) Urine Nitrite (Negative) Urine Bilirubin (Negative) Urine Urobilinogen (Normal) mg/dL Ur Leukocyte Esterase (Negative) Urine Microscopic RBC (0-3) per hpf Urine Microscopic WBC (0-3) per hpf Ur Squamous Epith Cells (None-Few) per lpf Urine Bacteria (None-Few) per hpf Hyaline Casts (None-Few) per lpf Urine Osmolality (300-1090) mOsm/kg Urine Sodium mEq/L Urine Potassium mEq/L Urine Chloride mEq/L Nasal Screen MRSA (PCR) (Negative) Chlamy pneumoniae PCR Not Detected (Not Detect) Adenovirus (PCR) Not Detected (Not Detect) B. pertussis DNA (PCR) Not Detected (Not Detect) B.parapertussis DNA PCR Not Detected (Not Detect) Coronavirus OC43 (PCR) Not Detected (Not Detect) Coronavirus HKU1 (PCR) Not Detected (Not Detect) Coronavirus 229E (PCR) Not Detected (Not Detect) Coronavirus NL63 (PCR) Not Detected (Not Detect) Hep Bs Antigen (Nonreactive) Hep Bs Antibody mIU/mL Herpes Simplex Source HSV I (Not Detect) HSV II (Not Detect) HIV Ag/Ab Combo Qual (Nonreactive) Human Metapneumovir PCR Not Detected (Not Detect) Influenza A (H1) PCR Not Detected (Not Detect) Influ A (H1N1/09) PCR Not Detected (Not Detect) Influenza A (H3) PCR Not Detected (Not Detect) Influenza A Untype (PCR) Not Detected (Not Detect) Influenza Type B (PCR) Not Detected (Not Detect) M.pneumoniae DNA (PCR) Not Detected (Not Detect) Parainfluenza 1 (PCR) Not Detected (Not Detect) Parainfluenza 2 (PCR) Not Detected (Not Detect) Parainfluenza 3 (PCR) Not Detected (Not Detect) Parainfluenza 4 (PCR) Not Detected (Not Detect) RSV (PCR) Not Detected (Not Detect) Entero/Rhino (PCR) Not Detected (Not Detect) - Impressions Impressions Abdomen/Pelvis CT 06/23/18 18:30 IMPRESSION: 1. Circumferential thickening of the urinary bladder wall with perivesicular inflammation. Please correlate with clinical symptoms of cystitis. 2. Small bilateral pleural effusions with bibasilar pulmonary airspace opacities, favored to be atelectasis. 3. Hyperdense material in the gallbladder lumen, likely sludge. 4. Mildly enlarged anterior mediastinal lymph node and peripancreatic nodes. In isolation, finding is nonspecific and may be reactive. Consider follow-up in 3-6 months to ensure resolution/stability. 5. Subcutaneous edema. Please correlate with clinical symptoms of constipation. 6. ETT tip 4 cm above the sanjeev. 7. Enteric catheter tip in the body of the stomach with side hole is distal to the GE junction. D/ / 06/23/2018 19:26:45 Jason Mendiola MD / selina Interpreting Provider: Jason Mendiola MD Chest CT 06/23/18 18:30 IMPRESSION: 1. Circumferential thickening of the urinary bladder wall with perivesicular inflammation. Please correlate with clinical symptoms of cystitis. 2. Small bilateral pleural effusions with bibasilar pulmonary airspace opacities, favored to be atelectasis. 3. Hyperdense material in the gallbladder lumen, likely sludge. 4. Mildly enlarged anterior mediastinal lymph node and peripancreatic nodes. In isolation, finding is nonspecific and may be reactive. Consider follow-up in 3-6 months to ensure resolution/stability. 5. Subcutaneous edema. Please correlate with clinical symptoms of constipation. 6. ETT tip 4 cm above the sanjeev. 7. Enteric catheter tip in the body of the stomach with side hole is distal to the GE junction. D/ : / 06/23/2018 19:26:45 Jason Mendiola MD / selina Interpreting Provider: Jason Mendiola MD Exam - Constitutional Vitals: Temp Pulse Resp BP Pulse Ox 99.0 F 96 18 88/50 94 06/26/18 12:00 06/26/18 12:00 06/26/18 12:00 06/26/18 12:00 06/26/18 12:00 General appearance: cooperative, no acute distress, obese - Head Head exam: Present: atraumatic, normal inspection, normocephalic - Eye Eye exam: Present: normal appearance, PERRL Pupils: Present: normal accommodation - ENT ENT exam: Present: mucous membranes moist Additional comments: Vesicular lesions noted to the tongue. - Neck Neck exam: Present: normal inspection Additional comments: Temporary HD catheter noted to the right neck with transparent dressing C/D/I, currently accessed for CRRT. - Respiratory Respiratory exam: Present: CTAB. Absent: rales, respiratory distress, rhonchi, wheezes - Cardiovascular Cardiovascular exam: Present: RRR, +S1, +S2 - GI/Abdominal GI/Abdominal exam: Present: distended, firm, normal bowel sounds. Absent: tenderness Additional comments: OG tube with tube feeds infusing. Lyons catheter noted to be draining small amount of clear dark yellow urine. - Extremities Exam Extremities exam: Present: pedal edema (1+ BLE). Absent: joint swelling, tenderness - Neurological Exam Neurological exam: Present: altered (Sedated), oriented X3, no focal deficits ( TORRES x 4 spontaneously.) - Skin Skin exam: Present: dry, intact, normal color, warm - VTE Documentation of Mechanical Device: Intermittent pneumatic compression device Consult Discharge Plan - Plan Referrals: Sheryl Stahl, CHEMICAL COMPOUNDER [Primary Care Provider] - - Attending Attestation I examined this patient and my medical decision-making was reviewed with the Resident Physician. I agree with the documented findings, disposition and treatment plan as described except to the extent set forth below.
[2018-06-26] MEDS: Norepinephrine 8 MG in D5% in Water 250 ML IVC SCH (16:00)
[2018-06-26] MEDS: 0.9 % Sodium Chloride 1,000 ML IVC SCH (17:10)
[2018-06-26] MEDS: Scopolamine Patch 1.5 MG PATCH.TD72 TD SCH (17:10)
[2018-06-27] MEDS: Acyclovir 500 MG in D5% in Water 100 ML IVPB SCH ×2 (01:30→13:32)
[2018-06-27] MEDS: Insulin LISPRO 300 UNITS/3 ML VIAL SQ SCH ×6 (03:03→23:26)
[2018-06-27] MEDS: Artificial Tears SOLN 15 ML BOTTLE BOTH EYES SCH ×6 (03:03→23:02)
[2018-06-27 03:22] LABS: Hematocrit 22.9 % (37.5-50.1); Hemoglobin 7.3 g/dL (12.9-16.9); Mean Corpuscular HGB Conc 31.9 g/dL (31.6-35.5); Mean Corpuscular Hemoglobin 31.2 pg (28.0-33.3); Mean Corpuscular Volume 97.9 fL (83.0-100.0); Mean Platelet Volume 10.1 fL (9.4-12.4); Nucleated Red Blood Cells 0.4 /100 WBC (0); Platelet Count 107 K/mcL (140-400); Red Blood Count 2.34 M/mcL (4.19-5.50); Red Cell Distribution Width 17.2 % (11.5-14.5)
[2018-06-27 03:42] LABS: Albumin 2.3 g/dL (3.5-5.7); Albumin/Globulin Ratio 0.8 (1.1-2.2); Bilirubin,Total 0.4 mg/dL (0.3-1.0); Calcium 7.9 mg/dL (8.6-10.3); Globulin 2.9 g/dL (2.4-3.5); Potassium 4.4 mEq/L (3.5-5.1); Total Protein 5.2 g/dL (6.4-8.9)
[2018-06-27] MEDS: Insulin Human Regular 100 UNIT in 0.9 % Sodium Chloride 100 ML IVC SCH (04:01)
[2018-06-27] MEDS: *HR* Heparin 5,000 UNIT/ML VIAL SQ SCH (04:01)
[2018-06-27 04:11] LABS: Lymphocytes # 1.9 K/mcL (0.6-4.6); Monocytes # 0.4 K/mcL (0.0-1.3); Neutrophils # 15.4 K/mcL (1.6-8.9); Platelet Estimate Slight Decrease (Normal)
[2018-06-27 04:12] LABS: Polychromasia 1+ (Not Present)
[2018-06-27 04:42] LABS: ABG Base Excess 4 mEq/L (-2 to 3); ABG HCO3 29 mEq/L (21-27); ABG Oxygen Saturation 94 % (95-98); ABG PCO2 43 mmHg (35-45); ABG PH 7.44 pH Units (7.32-7.45); ABG PO2 69 mmHg (85-104); ABG TCO2 30 mEq/L (20-26); Blood Gas Modality PRVC; Blood Gas PEEP 8 cm H2O; Blood Gas Respiration Rate 18; Blood Gas VT 500 cc
[2018-06-27] MEDS ORDERED: 0.9 % Sodium Chloride 250 ML IVC PRN (07:48)
--- NOTE | 2018-06-27 07:51 | Pulmonology Progress Note ---
<Bonnie Cummins E - Last Filed: 06/27/18 10:31> Date of Encounter: 06/27/18 Time of Encounter: 07:47 Assessment and Plan (1) Septic shock Current Visit: Yes Status: Acute sepsis suspected secondary to karo fungemia. Levophed was restarted yesterday , fentanyl started this morning. MAP this morning 75. On fluconazole for fungemia, possible from UTI. Acyclovir started 06/25/18 for possible herpes encephalitis. No growth on repeat cultures from 06/19/18. New cultures were drawn on 06/24/18 waiting on culture growth. LP yesterday unsuccessful at bedside and with flouro. MRI brain unremarkable, no acute intracranial abnormalities. CT scan 06/23/18 showed thickening of the bladder wall possibly due to cystitis. Small bilateral pleural effusions with bibasilar pulmonary airspace opacities, favored to be atelectasis, sludge within the gallbladder. Mildly enlarged anterior mediastinal lymphnode and peripancreatic nodes, may be reactive. Neuro to be consulted due to patient's mental status, not following commands, only arousable to noctious stimuli. Bowel sounds today are absent and abdomen is distended, will do KUB (2) Acute respiratory failure with hypoxemia Current Visit: Yes Status: Acute On ventilator Chest XR from this morning shows ET tube approximately 4 cm above sanjeev. pH is 7.44 today. Continue to monitor and repeat ABGs if changes in respiratory status. CPAP this morning for approxamately 1 hour, no issues. (3) Oral lesion Current Visit: Yes Status: Acute Noted on tongue PCR positive for HSV1 Started acyclovir yesterday LP unsuccessful yesterday at bedside and with flouro MRI unremarkable, no acute abnormalities (4) COPD (chronic obstructive pulmonary disease) Current Visit: Yes Status: Chronic Continue ventilator, adjust as tolerated. Qualifiers: COPD type: emphysema Emphysema type: unspecified Qualified Code(s): J43.9 - Emphysema, unspecified (5) Systolic heart failure Current Visit: Yes Status: Acute MAP today 75. Continue to monitor keep MAP above 60. Qualifiers: Heart failure chronicity: unspecified Qualified Code(s): I50.20 - Unspecified systolic (congestive) heart failure (6) LUCILA (acute kidney injury) Current Visit: Yes Status: Acute Creatinine increased today after stopping tammie yesterday, 1.70 today, Nephrology following. Urine output yesterday averaged 52 ml/hr Nephrology switched patient to intermittent dialysis and stopped tammie yesterday (7) Hypocalcemia Current Visit: Yes Status: Acute Continue to monitor. Calcium today at 7.9. Replace if necessary (8) Thrombocytopenia Current Visit: Yes Status: Resolved Platelets slightly decreased today to 107. Continue to monitor. 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 NO heparin was in use in the lines which could have caused the excessive clotting on dialysis filter. Also, platelet count could have been decreased do to septic shock. (10) Hypokalemia Current Visit: Yes Status: Resolved resolved, today potassium is 4.4, stable (11) Type 2 diabetes mellitus Current Visit: Yes Status: Chronic Switched to subcutaneous insulin medium sliding scale q4 Qualifiers: Diabetes mellitus manager intermediate insulin use: with manager intermediate use Diabetes mellitus complication status: with unspecified complications Qualified Code(s) : E11.8 - Type 2 diabetes mellitus with unspecified complications; Z79.4 - manager intermediate (current) use of insulin (12) DVT prophylaxis Current Visit: Yes Status: Acute Heparin 5000 units q12 Subjective Principal diagnosis: septic shock Interval history: Mr. Mccarthy was seen at bedside this morning. He is sedated and intubated and on ventilator. Currently on Levophed and fentynyl. Creatinine increased to 1.70 after stopping tammie yesterday, nephrology following and will be doing intermediate dialysis. WBC count decreased from yesterday. ABGs normalizing. CPAP this morning for 1 hour with no issues. 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 Neuro to be consulted for mental status and possible herpes encephalitis. Currently on Heparin for DVT prophylaxis. Objective PUL Vital signs: Last Vital Signs Temp 99.8 F H 06/27/18 03:01 Pulse 100 06/27/18 07:00 Resp 19 06/27/18 07:37 BP 103/62 06/27/18 07:37 Pulse Ox 93 06/27/18 07:37 General appearance: other (intubated and sedated) Eyes: nonicteric, other (slight crusting bilateral, yellowish white) ENT: oropharynx dry, other (lesions noted on lips and tongue, no increase in size or number from yesterday) Neck: no lymphadenopathy Auscultation: bilateral: diminished breath sounds (lower lobes), rhonchi ( diffusely) Cardiovascular: regular rate and rhythm Gastrointestinal: absent bowel sounds, other (distended, ) Integumentary: other (upper lip and tongue lesiosn noted, red with crusted boarders, have not grown in diameter or increased in number since yesterday) Extremities: no cyanosis, edema (3+ pitting to knees) pupils equal and round, other (intubated and sedated, will try to open eyes to noctious stimuli but immeidately falls back asleep, does not follow commands) Ventilator Settings Ventilator Settings: Ventilator Settings, Last 8 Hours Ventilator Tidal Volume 500 Setting Ventilator Tidal Volume 500 Setting Ventilator Tidal Volume 500 Setting Ventilator Tidal Volume 500 Setting Ventilator Tidal Volume 500 Setting Ventilator Tidal Volume 500 Setting Ventilator Tidal Volume 500 Setting Ventilator Tidal Volume 500 Setting Ventilator Tidal Volume 500 Setting Ventilator Tidal Volume 500 Setting Ventilator Tidal Volume 500 Setting Ventilator Tidal Volume 500 Setting Ventilator Respiratory Rate 18 Setting Ventilator Respiratory Rate 18 Setting Ventilator Respiratory Rate 18 Setting Ventilator Respiratory Rate 18 Setting Ventilator Respiratory Rate 18 Setting Ventilator Respiratory Rate 18 Setting Ventilator Respiratory Rate 18 Setting Ventilator Respiratory Rate 18 Setting Ventilator Respiratory Rate 18 Setting Ventilator Respiratory Rate 18 Setting Ventilator Respiratory Rate 18 Setting Ventilator Respiratory Rate 18 Setting Actual Respiratory Rate 21 Actual Respiratory Rate 32 Actual Respiratory Rate 23 Actual Respiratory Rate 18 Actual Respiratory Rate 23 Actual Respiratory Rate 23 Actual Respiratory Rate 18 Actual Respiratory Rate 23 Actual Respiratory Rate 23 Actual Respiratory Rate 18 Actual Respiratory Rate 23 Actual Respiratory Rate 23 Positive End Expiratory 8 Pressure Positive End Expiratory 8 Pressure Positive End Expiratory 8 Pressure Positive End Expiratory 8 Pressure Positive End Expiratory 8 Pressure Positive End Expiratory 8 Pressure Positive End Expiratory 8 Pressure Positive End Expiratory 8 Pressure Positive End Expiratory 8 Pressure Positive End Expiratory 8 Pressure Positive End Expiratory 8 Pressure Positive End Expiratory 8 Pressure Positive End Expiratory 8 Pressure Peak Inspiratory Airway 43 Pressure Peak Inspiratory Airway 20 Pressure Peak Inspiratory Airway 38 Pressure Peak Inspiratory Airway 36 Pressure Peak Inspiratory Airway 38 Pressure Peak Inspiratory Airway 38 Pressure Peak Inspiratory Airway 38 Pressure Peak Inspiratory Airway 38 Pressure Peak Inspiratory Airway 38 Pressure Peak Inspiratory Airway 38 Pressure Peak Inspiratory Airway 38 Pressure Peak Inspiratory Airway 54 Pressure Results - Laboratory Findings CBC and BMP: 06/27/18 03:00 06/27/18 03:00 ABG ABG pH 7.44 pH Units (7.32-7.45) 06/27/18 04:39 ABG pCO2 43 mmHg (35-45) 06/27/18 04:39 ABG pO2 69 mmHg (85-104) L 06/27/18 04:39 ABG O2 Saturation 94 % (95-98) L 06/27/18 04:39 PT/INR, D-dimer PT 16.7 Seconds (9.4-12.1) H 06/22/18 03:45 D-Dimer 3465 ng/mLFEU (0-500) H 06/18/18 08:08 Abnormal lab findings: Abnormal lab results WBC 19.2 K/mcL (4.3-11.1) H 06/27/18 03:00 RBC 2.34 M/mcL (4.19-5.50) L 06/27/18 03:00 Hgb 7.3 g/dL (12.9-16.9) L 06/27/18 03:00 Hct 22.9 % (37.5-50.1) L 06/27/18 03:00 RDW 17.2 % (11.5-14.5) H 06/27/18 03:00 Plt Count 107 K/mcL (140-400) L 06/27/18 03:00 Immature Gran % 14.0 % (0-4) H 06/24/18 03:00 Band Neutrophils % 6.0 % (0-4) H 06/27/18 03:00 Metamyelocytes % 2.0 % (0) H 06/27/18 03:00 Myelocytes % 6.0 % (0) H 06/27/18 03:00 Neutrophils # 15.4 K/mcL (1.6-8.9) H 06/27/18 03:00 Nucleated RBCs/100 WBC 0.4 /100 WBC (0) H 06/27/18 03:00 Toxic Granulation Present (Not Present) A 06/18/18 03:05 Toxic Vacuolation Present (Not Present) A 06/22/18 03:45 Platelet Estimate Slight Decrease (Normal) L 06/27/18 03:00 Large Platelets Present (Not Present) A 06/23/18 03:15 Immature Plt Fraction 27.2 % (1.1-6.1) H 06/22/18 03:45 Polychromasia 1+ (Not Present) A 06/27/18 03:00 Basophilic Stippling 1+ (Not Present) A 06/26/18 04:00 Anisocytosis 1+ (Not Present) A 06/26/18 04:00 Macrocytosis Present (Not Present) A 06/26/18 04:00 PT 16.7 Seconds (9.4-12.1) H 06/22/18 03:45 APTT 62.8 Seconds (26.0-36.0) H 06/23/18 08:00 Fibrinogen 578 mg/dL (169-393) H 06/18/18 08:08 D-Dimer 3465 ng/mLFEU (0-500) H 06/18/18 08:08 ABG pO2 69 mmHg (85-104) L 06/27/18 04:39 ABG HCO3 29 mEq/L (21-27) H 06/27/18 04:39 ABG Total CO2 30 mEq/L (20-26) H 06/27/18 04:39 ABG O2 Saturation 94 % (95-98) L 06/27/18 04:39 ABG Base Excess 4 mEq/L (-2 to 3) H 06/27/18 04:39 BUN 25 mg/dL (6-20) H 06/27/18 03:00 Creatinine 1.70 mg/dL (0.70-1.30) H 06/27/18 03:00 Est GFR ( Amer) 51 (> 60) L 06/27/18 03:00 Est GFR (Non-Af Amer) 42 (> 60) L 06/27/18 03:00 Glucose 155 mg/dL (70-105) H 06/27/18 03:00 POC Glucose 140 mg/dL (70-99) H 06/27/18 07:19 Calcium 7.9 mg/dL (8.6-10.3) L 06/27/18 03:00 Venous Ioniz Calcium 1.01 mmol/L (1.15-1.35) L 06/24/18 03:13 Phosphorus 2.3 mg/dL (2.7-4.5) L 06/24/18 10:00 Direct Bilirubin 0.4 mg/dL (0.0-0.2) H 06/23/18 03:15 Alkaline Phosphatase 120 Units/L (34-104) H 06/27/18 03:00 Troponin I 0.92 ng/mL (< 0.04) H* 06/17/18 22:33 Serum Total Protein 5.2 g/dL (6.4-8.9) L 06/27/18 03:00 Albumin 2.3 g/dL (3.5-5.7) L 06/27/18 03:00 Albumin/Globulin Ratio 0.8 (1.1-2.2) L 06/27/18 03:00 Amylase 20 Units/L (29-103) L 06/23/18 16:27 Procalcitonin 107.11 ng/mL (<=0.07) H 06/17/18 16:40 Urine Protein 30 mg/dL (Neg-Trace) H 06/24/18 11:15 Urine Blood Moderate (Negative) H 06/24/18 11:15 Urine Bilirubin Small (Negative) H 06/24/18 11:15 Ur Leukocyte Esterase Moderate (Negative) H 06/24/18 11:15 Urine Microscopic RBC 3-5 per hpf (0-3) H 06/24/18 11:15 Urine Microscopic WBC 50-100 per hpf (0-3) H 06/24/18 11:15 Ur Squamous Epith Cells Many per lpf (None-Few) H 06/24/18 11:15 Vancomycin Trough 18 mcg/mL (5-10) H 06/19/18 08:20 Urine Opiates Screen Positive ng/mL (Psmaeq=321) H 06/18/18 10:37 U Benzodiazepines Scrn Positive ng/mL (Jkwxsg=217) H 06/18/18 10:37 HSV I DETECTED (Not Detect) A 06/24/18 15:10 - Clinical Findings Intake & Output: Intake & Output 06/26/18 06/26/18 06/27/18 15:59 23:59 07:59 Intake Total 5342 / 5342 284 / 284 110 / 110 Output Total 384 / 384 800 / 800 250 / 250 Balance 4958 / 4958 -516 / -516 -140 / -140 Weight 131 kg - VTE Documentation of Mechanical Device: Intermittent pneumatic compression device Consult Discharge Plan - Plan Referrals: Sheryl Stahl, [employer] TECHNICIAN [Primary Care Provider] - <Inga Gordon - Last Filed: 06/27/18 20:05> Date of Encounter: 06/27/18 Objective PUL Vital signs: Last Vital Signs Temp 99.8 F H 06/27/18 03:01 Pulse 89 06/27/18 08:00 Resp 18 06/27/18 08:00 BP 100/58 06/27/18 08:00 Pulse Ox 93 06/27/18 08:00 Ventilator Settings Ventilator Settings: Ventilator Settings, Last 8 Hours Ventilator Tidal Volume 500 Setting Ventilator Tidal Volume 500 Setting Ventilator Tidal Volume 500 Setting Ventilator Tidal Volume 500 Setting Ventilator Tidal Volume 500 Setting Ventilator Tidal Volume 500 Setting Ventilator Tidal Volume 500 Setting Ventilator Tidal Volume 500 Setting Ventilator Tidal Volume 500 Setting Ventilator Tidal Volume 500 Setting Ventilator Respiratory Rate 18 Setting Ventilator Respiratory Rate 18 Setting Ventilator Respiratory Rate 18 Setting Ventilator Respiratory Rate 18 Setting Ventilator Respiratory Rate 18 Setting Ventilator Respiratory Rate 18 Setting Ventilator Respiratory Rate 18 Setting Ventilator Respiratory Rate 18 Setting Ventilator Respiratory Rate 18 Setting Ventilator Respiratory Rate 18 Setting Actual Respiratory Rate 18 Actual Respiratory Rate 21 Actual Respiratory Rate 32 Actual Respiratory Rate 23 Actual Respiratory Rate 18 Actual Respiratory Rate 23 Actual Respiratory Rate 23 Actual Respiratory Rate 18 Actual Respiratory Rate 23 Actual Respiratory Rate 23 Positive End Expiratory 8 Pressure Positive End Expiratory 8 Pressure Positive End Expiratory 8 Pressure Positive End Expiratory 8 Pressure Positive End Expiratory 8 Pressure Positive End Expiratory 8 Pressure Positive End Expiratory 8 Pressure Positive End Expiratory 8 Pressure Positive End Expiratory 8 Pressure Positive End Expiratory 8 Pressure Positive End Expiratory 8 Pressure Peak Inspiratory Airway 38 Pressure Peak Inspiratory Airway 43 Pressure Peak Inspiratory Airway 20 Pressure Peak Inspiratory Airway 38 Pressure Peak Inspiratory Airway 36 Pressure Peak Inspiratory Airway 38 Pressure Peak Inspiratory Airway 38 Pressure Peak Inspiratory Airway 38 Pressure Peak Inspiratory Airway 38 Pressure Peak Inspiratory Airway 38 Pressure Results - Laboratory Findings CBC and BMP: 06/27/18 13:30 06/27/18 03:00 ABG ABG pH 7.44 pH Units (7.32-7.45) 06/27/18 04:39 ABG pCO2 43 mmHg (35-45) 06/27/18 04:39 ABG pO2 69 mmHg (85-104) L 06/27/18 04:39 ABG O2 Saturation 94 % (95-98) L 06/27/18 04:39 PT/INR, D-dimer PT 16.7 Seconds (9.4-12.1) H 06/22/18 03:45 D-Dimer 3465 ng/mLFEU (0-500) H 06/18/18 08:08 Abnormal lab findings: Abnormal lab results WBC 19.2 K/mcL (4.3-11.1) H 06/27/18 03:00 RBC 2.34 M/mcL (4.19-5.50) L 06/27/18 03:00 Hgb 7.3 g/dL (12.9-16.9) L 06/27/18 03:00 Hct 22.9 % (37.5-50.1) L 06/27/18 03:00 RDW 17.2 % (11.5-14.5) H 06/27/18 03:00 Plt Count 107 K/mcL (140-400) L 06/27/18 03:00 Immature Gran % 14.0 % (0-4) H 06/24/18 03:00 Band Neutrophils % 6.0 % (0-4) H 06/27/18 03:00 Metamyelocytes % 2.0 % (0) H 06/27/18 03:00 Myelocytes % 6.0 % (0) H 06/27/18 03:00 Neutrophils # 15.4 K/mcL (1.6-8.9) H 06/27/18 03:00 Nucleated RBCs/100 WBC 0.4 /100 WBC (0) H 06/27/18 03:00 Toxic Granulation Present (Not Present) A 06/18/18 03:05 Toxic Vacuolation Present (Not Present) A 06/22/18 03:45 Platelet Estimate Slight Decrease (Normal) L 06/27/18 03:00 Large Platelets Present (Not Present) A 06/23/18 03:15 Immature Plt Fraction 27.2 % (1.1-6.1) H 06/22/18 03:45 Polychromasia 1+ (Not Present) A 06/27/18 03:00 Basophilic Stippling 1+ (Not Present) A 06/26/18 04:00 Anisocytosis 1+ (Not Present) A 06/26/18 04:00 Macrocytosis Present (Not Present) A 06/26/18 04:00 PT 16.7 Seconds (9.4-12.1) H 06/22/18 03:45 APTT 62.8 Seconds (26.0-36.0) H 06/23/18 08:00 Fibrinogen 578 mg/dL (169-393) H 06/18/18 08:08 D-Dimer 3465 ng/mLFEU (0-500) H 06/18/18 08:08 ABG pO2 69 mmHg (85-104) L 06/27/18 04:39 ABG HCO3 29 mEq/L (21-27) H 06/27/18 04:39 ABG Total CO2 30 mEq/L (20-26) H 06/27/18 04:39 ABG O2 Saturation 94 % (95-98) L 06/27/18 04:39 ABG Base Excess 4 mEq/L (-2 to 3) H 06/27/18 04:39 BUN 25 mg/dL (6-20) H 06/27/18 03:00 Creatinine 1.70 mg/dL (0.70-1.30) H 06/27/18 03:00 Est GFR ( Amer) 51 (> 60) L 06/27/18 03:00 Est GFR (Non-Af Amer) 42 (> 60) L 06/27/18 03:00 Glucose 155 mg/dL (70-105) H 06/27/18 03:00 POC Glucose 140 mg/dL (70-99) H 06/27/18 07:19 Calcium 7.9 mg/dL (8.6-10.3) L 06/27/18 03:00 Venous Ioniz Calcium 1.01 mmol/L (1.15-1.35) L 06/24/18 03:13 Phosphorus 2.3 mg/dL (2.7-4.5) L 06/24/18 10:00 Direct Bilirubin 0.4 mg/dL (0.0-0.2) H 06/23/18 03:15 Alkaline Phosphatase 120 Units/L (34-104) H 06/27/18 03:00 Troponin I 0.92 ng/mL (< 0.04) H* 06/17/18 22:33 Serum Total Protein 5.2 g/dL (6.4-8.9) L 06/27/18 03:00 Albumin 2.3 g/dL (3.5-5.7) L 06/27/18 03:00 Albumin/Globulin Ratio 0.8 (1.1-2.2) L 06/27/18 03:00 Amylase 20 Units/L (29-103) L 06/23/18 16:27 Procalcitonin 107.11 ng/mL (<=0.07) H 06/17/18 16:40 Urine Protein 30 mg/dL (Neg-Trace) H 06/24/18 11:15 Urine Blood Moderate (Negative) H 06/24/18 11:15 Urine Bilirubin Small (Negative) H 06/24/18 11:15 Ur Leukocyte Esterase Moderate (Negative) H 06/24/18 11:15 Urine Microscopic RBC 3-5 per hpf (0-3) H 06/24/18 11:15 Urine Microscopic WBC 50-100 per hpf (0-3) H 06/24/18 11:15 Ur Squamous Epith Cells Many per lpf (None-Few) H 06/24/18 11:15 Vancomycin Trough 18 mcg/mL (5-10) H 06/19/18 08:20 Urine Opiates Screen Positive ng/mL (Hfagmd=406) H 06/18/18 10:37 U Benzodiazepines Scrn Positive ng/mL (Jonsyd=684) H 06/18/18 10:37 HSV I DETECTED (Not Detect) A 06/24/18 15:10 - Clinical Findings Intake & Output: Intake & Output 06/26/18 06/27/18 06/27/18 23:59 07:59 15:59 Intake Total 284 / 284 110 / 110 Output Total 800 / 800 250 / 250 Balance -516 / -516 -140 / -140 Weight 131 kg - Attending Attestation I examined this patient and my medical decision-making was reviewed with the Resident Physician. I agree with the documented findings, disposition and treatment plan as described except to the extent set forth below. Patient seen and examined. Labs, radiology, chart personally reviewed. 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 MRI has not been diagnostic. Request neurology to evaluate patient and opinion about encephalitis. 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 Cardiovascular: stable GI: Nutrition per dietary and GI prophylaxis per routine Heme: DVT prophylaxis per routine ID: Continue antibiotics and plan to de-escalation Renal; urine out put and renal funtion reviewed. Plan for hemodialysis and fluid removal will help. Endorcine: blood glucose is monitored Lines: all lines checked and no evidence of infections Skin: skin care to prevent pressure ulcers per nursing routine care I had extensive discussion with family at the bedside about his condition and updated them his condition and expected course of his disease.
[2018-06-27] MEDS: Pantoprazole 40 MG VIAL IVP SCH (07:58)
[2018-06-27] MEDS: Chlorhexidine Rinse 15 ML MOUTHWASH MM SCH ×2 (07:58→20:06)
[2018-06-27] MEDS: Fluconazole 400 MG/200 ML IVPB SCH (07:59)
[2018-06-27] MEDS: Nystatin SUSP 5 ML UD.LIQ PO SCH ×4 (07:59→20:06)
[2018-06-27] MEDS ORDERED: 0.9 % Sodium Chloride 1,000 ML ONE (09:08)
--- NOTE | 2018-06-27 09:56 | Infectious Disease Progress No ---
Date of Encounter: 06/27/18 Time of Encounter: 08:40 - Assessment and Plan (1) Septic shock Current Visit: Yes Status: Acute The patient had 4 SIRS criteria plus lactic acidosis, acute kidney injury, acute encephalopathy, and hypotension requiring vasopressors. Likely secondary to candidemia, UTI, possible HSV encephalitis. There is also a concern that there is an underlying infectious etiology that has not been identified given the critical nature of this patient. Improved. Leukocytosis improved today. Hypothermia resolved, but did have Tmax 100.2. Tachycardia resolved. Remains intubated and sedated so unable to assess his mental status. Acute kidney injury improved. Blood cultures obtained 06/17/18 are +2 out of 2 sets for Marisela albicans, nation- sensitive. Repeat blood cultures obtained 06/19/18 are negative 2 sets. Etiology of worsening leukocytosis unclear. He did receive 4 days of steroids, which were stopped 06/19/18: lag vs. other. Continue to trend. No evidence of skin/soft tissue infection. He does have some new breakdown to the buttocks, but no clinical evidence of infection. Get CT of the chest, abdomen, and pelvis in the AM. --> showed bladder wall thickening concerning for cystitis, bilateral pleural effusions with likely atelectasis, gallbladder sludge, possible constipation, and mediastinal and peripancreatic lymphadenopathy, likely reactive. CT head showed bilateral ethmoid and sphenoid sinusitis, but no intracranial abnormality. Check amylase and lipase.--> normal. Repeat blood cultures x 2 sets now peripherally. --> no growth. Check HIV.--> nonreactive. Has completed 9 days of Vanc and Zosyn. No additional bacterial cause of the patient's symptoms has been identified. Vanc and Zosyn D/C'd 06/25/18. (2) Candidemia Current Visit: Yes Status: Acute Causative organism: Marisela albicans. Source: unclear. CT of the abdomen and pelvis is negative. He has no indwelling lines or catheters. His urine culture is positive for C. albicans. Blood cultures obtained 06/17/18 are +2 out of 2 sets for Marisela albicans, nation- sensitive. Repeat blood cultures obtained 06/19/18 are negative 2 sets. Continue fluconazole. Will ask pharmacy to assist with dosing since SOLEDAD was stopped. Repeat LFTs normal. Duration of treatment depends on the clinical picture. Monitor liver function tests closely. Recommend ophthalmology to evaluate once patient stabilizes. (3) Pneumonia Current Visit: Yes Status: Ruled-out Location: Bilateral lower lobes. Causative organism: Unclear. Consider aspiration since the patient had altered mental status and was recently intubated. CT of the chest showed bilateral lower lobe infiltrates versus atelectasis. The patient does have a large amount of secretions coming from his ET tube. Discussed with the pulmonary team. Concern for pneumonia from their standpoint. MRSA screen completed 06/17/18 is negative. Sputum culture is NGTD. Check S. pneumo and Legionella UAT.--> negative. Check RIP.--> negative. Repeat CXR 06/23/18 showed mild pulmonary vascular congestion and atelectasis and mild pleural effusion at the right lung base, increased. CT scan of the chest 06/23/18 negative for PNA. Vanc and Zosyn discontinued 06/25/18 after 9 days. Qualifiers: Pneumonia type: due to unspecified organism Laterality: bilateral Lung location: lower lobe of lung Qualified Code(s): J18.1 - Lobar pneumonia, unspecified organism (4) UTI (urinary tract infection) Current Visit: Yes Status: Acute Causative organism: C. albicans. Per the patient's , asymptomatic prior to admission. Continue fluconazole as above. Qualifiers: Urinary tract infection type: site unspecified Hematuria presence: without hematuria Qualified Code(s): N39.0 - Urinary tract infection, site not specified (5) Encephalopathy Current Visit: Yes Status: Acute Etiology unclear, but likely related to sepsis. Per the patient's , the patient did have any complaints of neck pain, stiffness, or headache. Unable to assess mental status since the patient remains intubated and sedated. CT head negative for intracranial abnormality. 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 LP attempted by the pulm/CC team was unsuccessful. Neurology consulted. Await recommendations. Continue Acyclovir. Will ask pharmacy to assist with dosing since SOLEDAD stopped. LFTs remain normal. Duration of treatment depends on the clinical picture. (6) LUCILA (acute kidney injury) Current Visit: Yes Status: Acute Likely multifactorial: sepsis + hypotension + other. CRRT started 06/19/18 and stopped 06/26/18. Creatinine improved. Urine output improved. Nephrology consulted and following. Continue to trend. Dose-adjust medications. (7) Lactic acidosis Current Visit: Yes Status: Resolved Likely secondary to sepsis. Resolved. (8) Thrombocytopenia Current Visit: Yes Status: Resolved Likely secondary to sepsis. LFTs abnormal on admission. Repeat LFTs normal. Improved. Continue to trend. No acute bleeding noted on exam. Further workup and management per the primary team. (9) Acute respiratory failure with hypoxemia Current Visit: Yes Status: Acute Likely secondary to PNA vs. pulmonary edema. Currently intubated. Failed CPAP this morning. Vent management per the pulmonary team. (10) Systolic heart failure Current Visit: Yes Status: Acute TTE was sub-optimal, but showed approximate EF 20%. Qualifiers: Heart failure chronicity: unspecified Qualified Code(s): I50.20 - Unspecified systolic (congestive) heart failure (11) Hypokalemia Current Visit: Yes Status: Resolved Resolved. (12) Elevated troponin Current Visit: Yes Status: Acute Management per the primary team. (13) Type 2 diabetes mellitus Current Visit: Yes Status: Chronic Recommend aggressive glucose monitoring and control. Management per the primary team. Qualifiers: Diabetes mellitus fdc insulin use: with intermodal customer service use Diabetes mellitus complication status: with unspecified complications Qualified Code(s) : E11.8 - Type 2 diabetes mellitus with unspecified complications; Z79.4 - skilled nursing (current) use of insulin (14) COPD (chronic obstructive pulmonary disease) Current Visit: Yes Status: Chronic Qualifiers: COPD type: emphysema Emphysema type: unspecified Qualified Code(s): J43.9 - Emphysema, unspecified (15) Oral lesion Current Visit: Yes Status: Acute Noted to the tongue. PCR positive for HSV 1. Continue Acyclovir. Will ask pharmacy to assist with dosing since SOLEDAD was stopped. Duration of treatment depends on the clinical picture. (16) Sinusitis Current Visit: Yes Status: Acute CT of the head 06/23/18 showed sinusitis of the bilateral sphenoid and ethmoid sinuses. Causative organism unclear. Treated with 9 days of Vanc and Zosyn. Qualifiers: Sinusitis location: unspecified location Chronicity: acute Recurrence: non-recurrent Qualified Code(s): J01.90 - Acute sinusitis, unspecified - Subjective Interval history: Patient seen and examined. No acute events noted overnight. Attempted LP yesterday was unsuccessful. Patient remains intubated and sedated. Minimally responsive to stimuli, but does not follow commands or attempt to communicate. Vasopressors are currently off. Tube feeds on hold due to residuals and abdominal distention. Large BM yesterday. SOLEDAD started Saturday, discontinued . Urine output improved. Per nursing, failed CPAP. Infect Dis PN-Objective Data - Labs CBC & Chem 7: 06/27/18 03:00 06/27/18 03:00 Labs: Laboratory Results - last 24 hr 06/26/18 06/26/18 06/26/18 11:51 15:45 19:38 WBC RBC Hgb Hct MCV MCH MCHC RDW Plt Count MPV Seg Neutrophils % Band Neutrophils % Lymphocytes % Monocytes % Metamyelocytes % Myelocytes % Neutrophils # Lymphocytes # Monocytes # Nucleated RBCs/100 WBC Platelet Estimate Polychromasia Sample Site ABG pH ABG pCO2 ABG pO2 ABG HCO3 ABG Total CO2 ABG O2 Saturation ABG Base Excess Michael Test Respiration Rate O2 Delivery Device Blood Gas Modality Inspired O2 Tidal Volume PEEP Sodium Potassium Chloride Carbon Dioxide BUN Creatinine Est GFR ( Amer) Est GFR (Non-Af Amer) BUN/Creatinine Ratio Glucose POC Glucose 141 H 133 H 169 H Calculated Osmolality Calcium Total Bilirubin AST ALT Alkaline Phosphatase Serum Total Protein Albumin Globulin Albumin/Globulin Ratio 06/26/18 06/27/18 06/27/18 23:02 03:00 03:00 WBC 19.2 H RBC 2.34 L Hgb 7.3 L Hct 22.9 L MCV 97.9 MCH 31.2 MCHC 31.9 RDW 17.2 H Plt Count 107 L MPV 10.1 Seg Neutrophils % 74.0 Band Neutrophils % 6.0 H Lymphocytes % 10.0 Monocytes % 2.0 Metamyelocytes % 2.0 H Myelocytes % 6.0 H Neutrophils # 15.4 H Lymphocytes # 1.9 Monocytes # 0.4 Nucleated RBCs/100 WBC 0.4 H Platelet Estimate Slight Decrease L Polychromasia 1+ A Sample Site ABG pH ABG pCO2 ABG pO2 ABG HCO3 ABG Total CO2 ABG O2 Saturation ABG Base Excess Michael Test Respiration Rate O2 Delivery Device Blood Gas Modality Inspired O2 Tidal Volume PEEP Sodium 139 Potassium 4.4 Chloride 105 Carbon Dioxide 26 BUN 25 H Creatinine 1.70 H Est GFR ( Amer) 51 L Est GFR (Non-Af Amer) 42 L BUN/Creatinine Ratio 15 Glucose 155 H POC Glucose 145 H Calculated Osmolality 296 Calcium 7.9 L Total Bilirubin 0.4 AST 29 ALT 16 Alkaline Phosphatase 120 H Serum Total Protein 5.2 L Albumin 2.3 L Globulin 2.9 Albumin/Globulin Ratio 0.8 L 06/27/18 06/27/18 06/27/18 03:01 04:39 07:19 WBC RBC Hgb Hct MCV MCH MCHC RDW Plt Count MPV Seg Neutrophils % Band Neutrophils % Lymphocytes % Monocytes % Metamyelocytes % Myelocytes % Neutrophils # Lymphocytes # Monocytes # Nucleated RBCs/100 WBC Platelet Estimate Polychromasia Sample Site R Radial ABG pH 7.44 ABG pCO2 43 ABG pO2 69 L ABG HCO3 29 H ABG Total CO2 30 H ABG O2 Saturation 94 L ABG Base Excess 4 H Michael Test N/A Respiration Rate 18 O2 Delivery Device Adult Vent Blood Gas Modality PRVC Inspired O2 55.0 Tidal Volume 500 PEEP 8 Sodium Potassium Chloride Carbon Dioxide BUN Creatinine Est GFR ( Amer) Est GFR (Non-Af Amer) BUN/Creatinine Ratio Glucose POC Glucose 155 H 140 H Calculated Osmolality Calcium Total Bilirubin AST ALT Alkaline Phosphatase Serum Total Protein Albumin Globulin Albumin/Globulin Ratio Cultures: Cultures 06/19/18 12:46 Blood Culture - Final Peripheral Venipuncture No growth. Final report. 06/19/18 12:46 Blood Culture - Final Peripheral Venipuncture No growth. Final report. 06/24/18 11:35 Blood Culture - Preliminary Peripheral Venipuncture Culture is incubating and being continuously monitored for growth. Final report to follow. 06/24/18 11:35 Blood Culture - Preliminary Peripheral Venipuncture Culture is incubating and being continuously monitored for growth. Final report to follow. 06/18/18 20:45 Sputum Culture - Final Sputum 06/20/18 11:30 Legionella Antigen - Final Urine,[place] Streptococcus pneumoniae Antigen (M - Final Serology 06/24/18 06/24/18 06/23/18 Range/Units 15:10 11:15 20:00 Urine Color Yellow (Yellow) Urine Clarity Hazy (Clear) Urine pH 6.0 (5.0-8.0) pH Units Ur Specific [place] 1.013 (1.010-1.025) Urine Protein 30 H (Neg-Trace) mg/dL Urine Glucose (UA) Normal (Normal) mg/dL Urine Ketones Negative (Negative) mg/dL Urine Blood Moderate H (Negative) Urine Nitrite Negative (Negative) Urine Bilirubin Small H (Negative) Urine Urobilinogen Normal (Normal) mg/dL Ur Leukocyte Esterase Moderate H (Negative) Urine Microscopic RBC 3-5 H (0-3) per hpf Urine Microscopic WBC 50-100 H (0-3) per hpf Ur Squamous Epith Cells Many H (None-Few) per lpf Urine Bacteria None Seen (None-Few) per hpf Hyaline Casts None Seen (None-Few) per lpf Urine Osmolality (300-1090) mOsm/kg Urine Sodium mEq/L Urine Potassium mEq/L Urine Chloride mEq/L Nasal Screen MRSA (PCR) (Negative) Chlamy pneumoniae PCR (Not Detect) Adenovirus (PCR) (Not Detect) B. pertussis DNA (PCR) (Not Detect) B.parapertussis DNA PCR (Not Detect) Coronavirus OC43 (PCR) (Not Detect) Coronavirus HKU1 (PCR) (Not Detect) Coronavirus 229E (PCR) (Not Detect) Coronavirus NL63 (PCR) (Not Detect) Hep Bs Antigen (Nonreactive) Hep Bs Antibody mIU/mL Herpes Simplex Source [place] HSV I DETECTED A (Not Detect) HSV II Not Detected (Not Detect) HIV Ag/Ab Combo Qual Nonreactive (Nonreactive) Human Metapneumovir PCR (Not Detect) Influenza A (H1) PCR (Not Detect) Influ A (H1N1/09) PCR (Not Detect) Influenza A (H3) PCR (Not Detect) Influenza A Untype (PCR) (Not Detect) Influenza Type B (PCR) (Not Detect) M.pneumoniae DNA (PCR) (Not Detect) Parainfluenza 1 (PCR) (Not Detect) Parainfluenza 2 (PCR) (Not Detect) Parainfluenza 3 (PCR) (Not Detect) Parainfluenza 4 (PCR) (Not Detect) RSV (PCR) (Not Detect) Entero/Rhino (PCR) (Not Detect) 06/23/18 06/20/18 06/18/18 Range/Units 08:10 11:30 10:28 Urine Color (Yellow) Urine Clarity (Clear) Urine pH (5.0-8.0) pH Units Ur Specific [place] (1.010-1.025) Urine Protein (Neg-Trace) mg/dL Urine Glucose (UA) (Normal) mg/dL Urine Ketones (Negative) mg/dL Urine Blood (Negative) Urine Nitrite (Negative) Urine Bilirubin (Negative) Urine Urobilinogen (Normal) mg/dL Ur Leukocyte Esterase (Negative) Urine Microscopic RBC (0-3) per hpf Urine Microscopic WBC (0-3) per hpf Ur Squamous Epith Cells (None-Few) per lpf Urine Bacteria (None-Few) per hpf Hyaline Casts (None-Few) per lpf Urine Osmolality 343 (300-1090) mOsm/kg Urine Sodium mEq/L Urine Potassium mEq/L Urine Chloride mEq/L Nasal Screen MRSA (PCR) (Negative) Chlamy pneumoniae PCR Not Detected (Not Detect) Adenovirus (PCR) Not Detected (Not Detect) B. pertussis DNA (PCR) Not Detected (Not Detect) B.parapertussis DNA PCR Not Detected (Not Detect) Coronavirus OC43 (PCR) Not Detected (Not Detect) Coronavirus HKU1 (PCR) Not Detected (Not Detect) Coronavirus 229E (PCR) Not Detected (Not Detect) Coronavirus NL63 (PCR) Not Detected (Not Detect) Hep Bs Antigen Nonreactive (Nonreactive) Hep Bs Antibody 0.00 mIU/mL Herpes Simplex Source HSV I (Not Detect) HSV II (Not Detect) HIV Ag/Ab Combo Qual (Nonreactive) Human Metapneumovir PCR Not Detected (Not Detect) Influenza A (H1) PCR Not Detected (Not Detect) Influ A (H1N1/09) PCR Not Detected (Not Detect) Influenza A (H3) PCR Not Detected (Not Detect) Influenza A Untype (PCR) Not Detected (Not Detect) Influenza Type B (PCR) Not Detected (Not Detect) M.pneumoniae DNA (PCR) Not Detected (Not Detect) Parainfluenza 1 (PCR) Not Detected (Not Detect) Parainfluenza 2 (PCR) Not Detected (Not Detect) Parainfluenza 3 (PCR) Not Detected (Not Detect) Parainfluenza 4 (PCR) Not Detected (Not Detect) RSV (PCR) Not Detected (Not Detect) Entero/Rhino (PCR) Not Detected (Not Detect) 06/18/18 06/17/18 06/17/18 Range/Units 10:28 18:15 11:56 Urine Color (Yellow) Urine Clarity (Clear) Urine pH (5.0-8.0) pH Units Ur Specific [place] (1.010-1.025) Urine Protein (Neg-Trace) mg/dL Urine Glucose (UA) (Normal) mg/dL Urine Ketones (Negative) mg/dL Urine Blood (Negative) Urine Nitrite (Negative) Urine Bilirubin (Negative) Urine Urobilinogen (Normal) mg/dL Ur Leukocyte Esterase (Negative) Urine Microscopic RBC (0-3) per hpf Urine Microscopic WBC (0-3) per hpf Ur Squamous Epith Cells (None-Few) per lpf Urine Bacteria (None-Few) per hpf Hyaline Casts (None-Few) per lpf Urine Osmolality (300-1090) mOsm/kg Urine Sodium 128.8 mEq/L Urine Potassium 36.5 7.5 mEq/L Urine Chloride 135 mEq/L Nasal Screen MRSA (PCR) Negative (Negative) Chlamy pneumoniae PCR (Not Detect) Adenovirus (PCR) (Not Detect) B. pertussis DNA (PCR) (Not Detect) B.parapertussis DNA PCR (Not Detect) Coronavirus OC43 (PCR) (Not Detect) Coronavirus HKU1 (PCR) (Not Detect) Coronavirus 229E (PCR) (Not Detect) Coronavirus NL63 (PCR) (Not Detect) Hep Bs Antigen (Nonreactive) Hep Bs Antibody mIU/mL Herpes Simplex Source HSV I (Not Detect) HSV II (Not Detect) HIV Ag/Ab Combo Qual (Nonreactive) Human Metapneumovir PCR (Not Detect) Influenza A (H1) PCR (Not Detect) Influ A (H1N1/09) PCR (Not Detect) Influenza A (H3) PCR (Not Detect) Influenza A Untype (PCR) (Not Detect) Influenza Type B (PCR) (Not Detect) M.pneumoniae DNA (PCR) (Not Detect) Parainfluenza 1 (PCR) (Not Detect) Parainfluenza 2 (PCR) (Not Detect) Parainfluenza 3 (PCR) (Not Detect) Parainfluenza 4 (PCR) (Not Detect) RSV (PCR) (Not Detect) Entero/Rhino (PCR) (Not Detect) 06/17/18 Range/Units 11:30 Urine Color (Yellow) Urine Clarity (Clear) Urine pH (5.0-8.0) pH Units Ur Specific [place] (1.010-1.025) Urine Protein (Neg-Trace) mg/dL Urine Glucose (UA) (Normal) mg/dL Urine Ketones (Negative) mg/dL Urine Blood (Negative) Urine Nitrite (Negative) Urine Bilirubin (Negative) Urine Urobilinogen (Normal) mg/dL Ur Leukocyte Esterase (Negative) Urine Microscopic RBC (0-3) per hpf Urine Microscopic WBC (0-3) per hpf Ur Squamous Epith Cells (None-Few) per lpf Urine Bacteria (None-Few) per hpf Hyaline Casts (None-Few) per lpf Urine Osmolality (300-1090) mOsm/kg Urine Sodium mEq/L Urine Potassium mEq/L Urine Chloride mEq/L Nasal Screen MRSA (PCR) (Negative) Chlamy pneumoniae PCR Not Detected (Not Detect) Adenovirus (PCR) Not Detected (Not Detect) B. pertussis DNA (PCR) Not Detected (Not Detect) B.parapertussis DNA PCR Not Detected (Not Detect) Coronavirus OC43 (PCR) Not Detected (Not Detect) Coronavirus HKU1 (PCR) Not Detected (Not Detect) Coronavirus 229E (PCR) Not Detected (Not Detect) Coronavirus NL63 (PCR) Not Detected (Not Detect) Hep Bs Antigen (Nonreactive) Hep Bs Antibody mIU/mL Herpes Simplex Source HSV I (Not Detect) HSV II (Not Detect) HIV Ag/Ab Combo Qual (Nonreactive) Human Metapneumovir PCR Not Detected (Not Detect) Influenza A (H1) PCR Not Detected (Not Detect) Influ A (H1N1/09) PCR Not Detected (Not Detect) Influenza A (H3) PCR Not Detected (Not Detect) Influenza A Untype (PCR) Not Detected (Not Detect) Influenza Type B (PCR) Not Detected (Not Detect) M.pneumoniae DNA (PCR) Not Detected (Not Detect) Parainfluenza 1 (PCR) Not Detected (Not Detect) Parainfluenza 2 (PCR) Not Detected (Not Detect) Parainfluenza 3 (PCR) Not Detected (Not Detect) Parainfluenza 4 (PCR) Not Detected (Not Detect) RSV (PCR) Not Detected (Not Detect) Entero/Rhino (PCR) Not Detected (Not Detect) - Impressions Impressions Brain MRI 06/26/18 13:31 IMPRESSION: Unremarkable MRI of the brain. No acute intracranial abnormality. If clinical suspicion for central nervous system infection persists, lumbar puncture and evaluation cerebral and spinal fluid is recommended. D/ / 06/26/2018 14:45:16 Nitin Kamara MD / ana Interpreting Provider: Nitin Kamara MD Chest X-Ray 06/27/18 04:00 IMPRESSION: Stable bilateral lung airspace disease and pleural effusions D/ / Vick Bucio MD / Vick Bucio MD Interpreting Provider: Vick Bucio MD Exam - Constitutional Vitals: Temp Pulse Resp BP Pulse Ox 100.8 F H 81 18 106/62 92 06/27/18 08:00 06/27/18 09:00 06/27/18 09:00 06/27/18 09:00 06/27/18 09:00 General appearance: cooperative, no acute distress, obese - Head Head exam: Present: atraumatic, normal inspection, normocephalic - Eye Eye exam: Present: normal appearance, PERRL Pupils: Present: normal accommodation - ENT ENT exam: Present: mucous membranes moist Additional comments: Vesicular lesions noted to the tongue and lips. - Neck Neck exam: Present: normal inspection Additional comments: Temporary HD catheter noted to the right neck with transparent dressing C/D/I. - Respiratory Respiratory exam: Present: rhonchi (Scattered). Absent: rales, wheezes - Cardiovascular Cardiovascular exam: Present: RRR, +S1, +S2 - GI/Abdominal GI/Abdominal exam: Present: distended, firm, hypoactive bowel sounds. Absent: tenderness Additional comments: OG tube to LIWS with bilious gastric contents noted. [place] catheter patent draining clear yellow urine. - Extremities Exam Extremities exam: Present: pedal edema (1+ BLE) - Neurological Exam Neurological exam: Present: altered (Sedated.) - Skin Skin exam: Present: dry, intact, normal color, warm - VTE Documentation of Mechanical Device: Intermittent pneumatic compression device Consult Discharge Plan - Plan Referrals: Sheryl Stahl RAILCAR CARPENTER [Primary Care Provider] - - Attending Attestation I examined this patient and my medical decision-making was reviewed with July Owens CNP. I agree with the documented findings, disposition and treatment plan as described except to the extent set forth below.
--- NOTE | 2018-06-27 10:12 | Neurology - Consult Note ---
<Tanna Paredes P - Last Filed: 06/27/18 10:51> Date of Encounter: 06/27/18 Time of Encounter: 08:45 Assessment and Plan (1) Encephalopathy Current Visit: Yes Status: Acute Cause is still unclear it might be due to Metabolic or sepsis related or herpes virus . He didn't have h/o neck stiffness, or headache , vomiting . Mental status unknown as pt is intubated and sedated. Patient has a few papulovesicular lesions in buccal mucosa and upper and lower lips , developed recently Patient is already on Acyclovir , we recommend to continue it Recommendation from Infectious disease Physician LP tried , but unsuccessful Plan : EEG CPK : WNL TSH B12 and folic acid level Blood ammonia level Urine analysis; high protein and WBCs MRI brain : no acute pathology / LP suggested CT head : normal/ no clot We will monitor History of Present Illness Chief complaint: High blood sugar, confusion HPI: Mr. Mccarthy is a 52 year old male with Past diagnosis of COPD with home oxygen , DM-2 on insulin, hypertension and depression who was transferred from [place] [facility] to [facility] and admitted in ICU . He was brought to [place] ED due to very high blood sugar level and altered mental status. As per ED documentation, he developed acute respiratory distress with hypercapnia and hypoxemia and he had high WBC , hypokalemia and high troponin level . He was intubated because of respiratory decompensation . He was transferred to [place] with sedation and Intubated status Today's visit patient was sedated and was in intubated status , through clinical evaluation was not possible.Patient was responsive to deep stimuli, pupillary reaction to light was very sluggish ,papulovesicular lesion noted around buccal mucosa and upper and lower lip Labs : TLC 19.2, Na 139, K 4.4, Serology for HS type 1 positive,urine analysis : high protein and WBCs,CPK 210, bilirubin 0.4, LFT : WNL Past Med Surg Social Fam HX - Past Medical History Medical history: asthma, COPD, GERD, hypertension, other Additional medical history: back problems Psychiatric history: anxiety, depression - Social History Smoking Status: Former smoker Smokeless Tobacco Status: No Alcohol use: none Drug use: none Medications and Allergies Ipratropium/Albuterol Sulfate [Combivent Respimat Inhal [place]] 4 gm IH DAILY [History] Albuterol Sulfate [Proair Hfa] 2 puff IH Q4HR PRN 06/17/18 [History] Aspirin Enteric Coated [Aspirin EC] 81 mg PO DAILY 06/17/18 [History] Carvedilol [Carvedilol] 3.125 mg PO BID 06/17/18 [History] Citalopram [CeleXA] 20 mg PO DAILY 06/17/18 [History] Fluticasone Propionate Nasal [Flonase] 1 puff NS DAILY 06/17/18 [History] Fluticasone/Vilanterol [Breo Ellipta 200-25 Mcg INH] 1 each IH DAILY 06/17/18 [ History] Furosemide [Lasix] 40 mg PO BID 06/17/18 [History] Gabapentin [Neurontin] 800 mg PO QID 06/17/18 [History] Insulin Glargine,Hum.rec.anlog [Basaglar Kwikpen U-100] 40 unit SQ BID 06/17/18 [History] Losartan/Hydrochlorothiazide [Losartan-Hctz 100-25 mg Tab] 1 tab PO DAILY [History] Metoprolol [Lopressor] 25 mg PO BID 06/17/18 [History] Montelukast [Singulair] 10 mg PO HS 06/17/18 [History] OxyCODONE/APAP 10/325 [Percocet 10/325 MG] 1 tab PO TID 06/17/18 [History] Pantoprazole Sodium 40 mg PO DAILY 06/17/18 [History] Potassium Chloride [K-Tab ER] 20 meq PO DAILY 06/17/18 [History] Pravastatin Sodium [Pravachol] 40 mg PO DAILY 06/17/18 [History] 3 Allergy/AdvReac Type Severity Reaction Status Date / Time Sulfa (Sulfonamide Allergy Rash Verified 01/28/16 21:39 Antibiotics) All Systems: The remainder of the systems were reviewed and are negative Physical Examination - Vital Signs Vital Signs: Initial Vital Signs Temp Pulse Resp BP Pulse Ox 101.4 F H 101 16 68/38 95 06/17/18 09:02 06/17/18 09:02 06/17/18 09:02 06/17/18 09:02 06/17/18 09:02 - Constitutional General appearance: acutely ill - Neurologic Sensorimotor examination: other Detailed motor examination: other (Patient was sedated and intubated , couldnot be possible to asses properly ) Detailed sensory examination: pain Mental Status Examination: stupor Cranial Nerve Exam: pupil sluggish to react to light: Right (Both side ) Results - Laboratory Findings CBC and BMP: 06/27/18 03:00 06/27/18 03:00 Abnormal lab findings: Abnormal lab results WBC 19.2 K/mcL (4.3-11.1) H 06/27/18 03:00 RBC 2.34 M/mcL (4.19-5.50) L 06/27/18 03:00 Hgb 7.3 g/dL (12.9-16.9) L 06/27/18 03:00 Hct 22.9 % (37.5-50.1) L 06/27/18 03:00 RDW 17.2 % (11.5-14.5) H 06/27/18 03:00 Plt Count 107 K/mcL (140-400) L 06/27/18 03:00 Immature Gran % 14.0 % (0-4) H 06/24/18 03:00 Band Neutrophils % 6.0 % (0-4) H 06/27/18 03:00 Metamyelocytes % 2.0 % (0) H 06/27/18 03:00 Myelocytes % 6.0 % (0) H 06/27/18 03:00 Neutrophils # 15.4 K/mcL (1.6-8.9) H 06/27/18 03:00 Nucleated RBCs/100 WBC 0.4 /100 WBC (0) H 06/27/18 03:00 Toxic Granulation Present (Not Present) A 06/18/18 03:05 Toxic Vacuolation Present (Not Present) A 06/22/18 03:45 Platelet Estimate Slight Decrease (Normal) L 06/27/18 03:00 Large Platelets Present (Not Present) A 06/23/18 03:15 Immature Plt Fraction 27.2 % (1.1-6.1) H 06/22/18 03:45 Polychromasia 1+ (Not Present) A 06/27/18 03:00 Basophilic Stippling 1+ (Not Present) A 06/26/18 04:00 Anisocytosis 1+ (Not Present) A 06/26/18 04:00 Macrocytosis Present (Not Present) A 06/26/18 04:00 PT 16.7 Seconds (9.4-12.1) H 06/22/18 03:45 APTT 62.8 Seconds (26.0-36.0) H 06/23/18 08:00 Fibrinogen 578 mg/dL (169-393) H 06/18/18 08:08 D-Dimer 3465 ng/mLFEU (0-500) H 06/18/18 08:08 ABG pO2 69 mmHg (85-104) L 06/27/18 04:39 ABG HCO3 29 mEq/L (21-27) H 06/27/18 04:39 ABG Total CO2 30 mEq/L (20-26) H 06/27/18 04:39 ABG O2 Saturation 94 % (95-98) L 06/27/18 04:39 ABG Base Excess 4 mEq/L (-2 to 3) H 06/27/18 04:39 BUN 25 mg/dL (6-20) H 06/27/18 03:00 Creatinine 1.70 mg/dL (0.70-1.30) H 06/27/18 03:00 Est GFR ( Amer) 51 (> 60) L 06/27/18 03:00 Est GFR (Non-Af Amer) 42 (> 60) L 06/27/18 03:00 Glucose 155 mg/dL (70-105) H 06/27/18 03:00 POC Glucose 140 mg/dL (70-99) H 06/27/18 07:19 Calcium 7.9 mg/dL (8.6-10.3) L 06/27/18 03:00 Venous Ioniz Calcium 1.01 mmol/L (1.15-1.35) L 06/24/18 03:13 Phosphorus 2.3 mg/dL (2.7-4.5) L 06/24/18 10:00 Direct Bilirubin 0.4 mg/dL (0.0-0.2) H 06/23/18 03:15 Alkaline Phosphatase 120 Units/L (34-104) H 06/27/18 03:00 Troponin I 0.92 ng/mL (< 0.04) H* 06/17/18 22:33 Serum Total Protein 5.2 g/dL (6.4-8.9) L 06/27/18 03:00 Albumin 2.3 g/dL (3.5-5.7) L 06/27/18 03:00 Albumin/Globulin Ratio 0.8 (1.1-2.2) L 06/27/18 03:00 Amylase 20 Units/L (29-103) L 06/23/18 16:27 Procalcitonin 107.11 ng/mL (<=0.07) H 06/17/18 16:40 Urine Protein 30 mg/dL (Neg-Trace) H 06/24/18 11:15 Urine Blood Moderate (Negative) H 06/24/18 11:15 Urine Bilirubin Small (Negative) H 06/24/18 11:15 Ur Leukocyte Esterase Moderate (Negative) H 06/24/18 11:15 Urine Microscopic RBC 3-5 per hpf (0-3) H 06/24/18 11:15 Urine Microscopic WBC 50-100 per hpf (0-3) H 06/24/18 11:15 Ur Squamous Epith Cells Many per lpf (None-Few) H 06/24/18 11:15 Vancomycin Trough 18 mcg/mL (5-10) H 06/19/18 08:20 Urine Opiates Screen Positive ng/mL (Tpxcdf=962) H 06/18/18 10:37 U Benzodiazepines Scrn Positive ng/mL (Brwfwu=055) H 06/18/18 10:37 HSV I DETECTED (Not Detect) A 06/24/18 15:10 Consult Discharge Plan - Plan Referrals: Sheryl Stahl [employer] [Primary Care Provider] - <Yoselin Tobin I - Last Filed: 06/27/18 12:04> Date of Encounter: 06/27/18 Assessment and Plan (1) Encephalopathy Current Visit: Yes Status: Acute Pt was seen and examined, my medical decision was reviewed with the Resident Physician, I agree with the documented findings, disposition and treatment plas as described except to the extent set forth below Patient was been admitted with mental status changes and he continued to be unresponsive but he is also on sedation Limited neurological evaluation due to sedation and unresponsiveness. Imaging studies did not reveal any acute abnormality. As far as any concern of PSYCHIATRIC NP infection, especially for any encephalitis certainly he would require CSF analysis but unfortunately despite several attempts even in interventional radiology not able to get any measurable CSF. At the moment I would recommend that we should treat emphatically as is been recommended by infectious disease specialist And should cover for all possible etiologies In the meantime we will get an EEG to make sure that there is no nonconvulsive seizure activity present, check for other metabolic etiologies that may be contributing to his overall condition Thank you very much for your kind consultation Yoselin Tobin MD History of Present Illness HPI: Mr. Mccarthy is a 52 year old male All Systems: The remainder of the systems were reviewed and are negative Physical Examination - Vital Signs Vital Signs: Initial Vital Signs Temp Pulse Resp BP Pulse Ox 101.4 F H 101 16 68/38 95 06/17/18 09:02 06/17/18 09:02 06/17/18 09:02 06/17/18 09:02 06/17/18 09:02 Results - Laboratory Findings CBC and BMP: 06/27/18 03:00 06/27/18 03:00 Abnormal lab findings: Abnormal lab results WBC 19.2 K/mcL (4.3-11.1) H 06/27/18 03:00 RBC 2.34 M/mcL (4.19-5.50) L 06/27/18 03:00 Hgb 7.3 g/dL (12.9-16.9) L 06/27/18 03:00 Hct 22.9 % (37.5-50.1) L 06/27/18 03:00 RDW 17.2 % (11.5-14.5) H 06/27/18 03:00 Plt Count 107 K/mcL (140-400) L 06/27/18 03:00 Immature Gran % 14.0 % (0-4) H 06/24/18 03:00 Band Neutrophils % 6.0 % (0-4) H 06/27/18 03:00 Metamyelocytes % 2.0 % (0) H 06/27/18 03:00 Myelocytes % 6.0 % (0) H 06/27/18 03:00 Neutrophils # 15.4 K/mcL (1.6-8.9) H 06/27/18 03:00 Nucleated RBCs/100 WBC 0.4 /100 WBC (0) H 06/27/18 03:00 Toxic Granulation Present (Not Present) A 06/18/18 03:05 Toxic Vacuolation Present (Not Present) A 06/22/18 03:45 Platelet Estimate Slight Decrease (Normal) L 06/27/18 03:00 Large Platelets Present (Not Present) A 06/23/18 03:15 Immature Plt Fraction 27.2 % (1.1-6.1) H 06/22/18 03:45 Polychromasia 1+ (Not Present) A 06/27/18 03:00 Basophilic Stippling 1+ (Not Present) A 06/26/18 04:00 Anisocytosis 1+ (Not Present) A 06/26/18 04:00 Macrocytosis Present (Not Present) A 06/26/18 04:00 PT 16.7 Seconds (9.4-12.1) H 06/22/18 03:45 APTT 62.8 Seconds (26.0-36.0) H 06/23/18 08:00 Fibrinogen 578 mg/dL (169-393) H 06/18/18 08:08 D-Dimer 3465 ng/mLFEU (0-500) H 06/18/18 08:08 ABG pO2 69 mmHg (85-104) L 06/27/18 04:39 ABG HCO3 29 mEq/L (21-27) H 06/27/18 04:39 ABG Total CO2 30 mEq/L (20-26) H 06/27/18 04:39 ABG O2 Saturation 94 % (95-98) L 06/27/18 04:39 ABG Base Excess 4 mEq/L (-2 to 3) H 06/27/18 04:39 BUN 25 mg/dL (6-20) H 06/27/18 03:00 Creatinine 1.70 mg/dL (0.70-1.30) H 06/27/18 03:00 Est GFR ( Amer) 51 (> 60) L 06/27/18 03:00 Est GFR (Non-Af Amer) 42 (> 60) L 06/27/18 03:00 Glucose 155 mg/dL (70-105) H 06/27/18 03:00 POC Glucose 137 mg/dL (70-99) H 06/27/18 11:17 Calcium 7.9 mg/dL (8.6-10.3) L 06/27/18 03:00 Venous Ioniz Calcium 1.01 mmol/L (1.15-1.35) L 06/24/18 03:13 Phosphorus 2.3 mg/dL (2.7-4.5) L 06/24/18 10:00 Direct Bilirubin 0.4 mg/dL (0.0-0.2) H 06/23/18 03:15 Alkaline Phosphatase 120 Units/L (34-104) H 06/27/18 03:00 Troponin I 0.92 ng/mL (< 0.04) H* 06/17/18 22:33 Serum Total Protein 5.2 g/dL (6.4-8.9) L 06/27/18 03:00 Albumin 2.3 g/dL (3.5-5.7) L 06/27/18 03:00 Albumin/Globulin Ratio 0.8 (1.1-2.2) L 06/27/18 03:00 Amylase 20 Units/L (29-103) L 06/23/18 16:27 Procalcitonin 107.11 ng/mL (<=0.07) H 06/17/18 16:40 Urine Protein 30 mg/dL (Neg-Trace) H 06/24/18 11:15 Urine Blood Moderate (Negative) H 06/24/18 11:15 Urine Bilirubin Small (Negative) H 06/24/18 11:15 Ur Leukocyte Esterase Moderate (Negative) H 06/24/18 11:15 Urine Microscopic RBC 3-5 per hpf (0-3) H 06/24/18 11:15 Urine Microscopic WBC 50-100 per hpf (0-3) H 06/24/18 11:15 Ur Squamous Epith Cells Many per lpf (None-Few) H 06/24/18 11:15 Vancomycin Trough 18 mcg/mL (5-10) H 06/19/18 08:20 Urine Opiates Screen Positive ng/mL (Zruylo=537) H 06/18/18 10:37 U Benzodiazepines Scrn Positive ng/mL (Uozwsa=071) H 06/18/18 10:37 HSV I DETECTED (Not Detect) A 06/24/18 15:10
--- NOTE | 2018-06-27 11:30 | Nephrology Progress Note ---
Date of Encounter: 06/27/18 Time of Encounter: 08:40 - Assessment and Plan (1) LUCILA (acute kidney injury) Current Visit: Yes Status: Acute Acute kidney injury, transitioning to intermittent HD Patient did see significant rise in Serum creatinine today, however chemistries are otherwise alright Volume status has remained stable, without evidence that patient has gained substantial overload. He is down in weight, and has maintained BP. There is no significant evidence of increased pulmonary edema. The patient will undergo hemodialysis today with modest UF to maintain net negative fluid balance To maintain BP during hemodialysis, we may employ multiple strategies including cold dialysate, levophed, 25g Albumin with lasix, slow filtration rate Diuretics are appropriate as needed for increased pulmonary edema (2) Acute respiratory failure with hypoxemia Current Visit: Yes Status: Acute Currently intubated, management per primary team We will continue to manage fluid removal with intermittent hemodialysis/UF as possible The patient has been making urine and his volume status has been improving IV diuretics are appropriate as needed for pulmonary edema (3) Septic shock Current Visit: Yes Status: Acute Septic shock with unknown source and multiple organ system dysfunction Patient's blood pressure continues to improve, currently off pressors at baseline May require use of pressors during intermittent hemodialysis Management per primary team and infectious disease (4) Anemia Current Visit: Yes Status: Acute Acute blood loss anemia We will continue to monitor this, consider addition of iron supplementation Qualifiers: Anemia type: other cause Other causes of anemia: acute posthemorrhagic Qualified Code(s): D62 - Acute posthemorrhagic anemia Subjective Principal diagnosis: septic shock Interval history: The patient is resting in bed. He has remained on mechanical ventilation, however nursing staff has attempted to wean down on sedation as possible. No acute concerns overnight. Objective - Vital Signs Vital signs: Vital Signs Temp Pulse Resp BP Pulse Ox 06/27/18 11:00 18 104/62 91 06/27/18 10:00 93 18 102/61 92 06/27/18 09:54 21 92/60 93 06/27/18 09:00 81 18 106/62 92 06/27/18 08:00 100.8 F H 89 18 100/58 93 06/27/18 07:37 19 103/62 93 06/27/18 07:00 84 19 103/62 93 06/27/18 06:07 86 18 103/52 93 06/27/18 05:20 18 88/53 93 06/27/18 05:08 84 18 90/52 94 06/27/18 04:00 84 18 89/53 92 06/27/18 03:39 18 89/53 92 06/27/18 03:01 99.8 F H 85 18 90/51 94 06/27/18 02:08 85 18 93/55 94 06/27/18 01:23 18 95/54 94 06/27/18 01:04 85 18 101/62 95 06/27/18 00:01 85 18 96/56 95 06/26/18 23:27 18 100/61 95 06/26/18 23:00 100.2 F H 90 18 99/57 95 06/26/18 22:01 91 18 103/57 95 06/26/18 21:30 23 101/61 94 06/26/18 21:03 87 18 107/60 93 06/26/18 20:37 98.8 F 06/26/18 19:57 90 18 110/57 94 06/26/18 19:51 18 104/57 93 06/26/18 18:00 87 18 110/57 94 06/26/18 17:40 18 113/56 94 06/26/18 17:00 84 18 113/59 93 06/26/18 16:00 99.1 F 77 18 104/61 93 06/26/18 15:40 18 81/35 91 06/26/18 15:00 81 18 87/51 91 06/26/18 14:00 90 18 81/35 90 06/26/18 13:00 90 18 85/56 92 06/26/18 12:00 99.0 F 96 18 88/50 94 Intake and Output 06/26/18 06/27/18 06/27/18 23:59 07:59 15:59 Intake Total 284 / 284 110 / 110 200 / 200 Output Total 800 / 800 250 / 250 150 / 150 Balance -516 / -516 -140 / -140 50 / 50 Intake: IV Fluids 210 / 210 110 / 110 200 / 200 PrismaSATE BGK 4/2.5 5,000 ML @ 0 / 0 1000 mls/hr CRRT CONT NADIA Rx#: [id number] PRECEDEX Premix 400 mcg In 100 100 / 100 ml @ 0.2 MCG/KG/HR 6.65 mls/hr IVC .Q15H3M NADIA Rx#:[id number] Zovirax 500 MG In Dextrose 5% 110 / 110 110 / 110 100 ML @ 110 mls/hr IVPB Q12H NADIA Rx#:[id number] Diflucan Premix 400 MG/200 ML 200 / 200 400 mg In 200 ml @ 200 mls/hr IVPB DAILY NADIA Rx#:[id number] Oral 0 / 0 Tube Feeding 74 / 74 Output: Catheter 800 / 800 250 / 250 150 / 150 Other: Weight 131 kg Blood Glucose* 169 140 - General Appearance Exam: Gen: Vitals noted. No acute distress. Patient is sedated on ventilator HEENT: Normocephalic, atraumatic Neck: Supple. No adenopathy. Cardiac: RRR, no murmur, +S1/S2 Pulmonary: There is some bilateral wheezing and minimal rhonchi heard anteriorly Abdomen: soft, nontender, no guarding Extremities: 2+ bilateral lower extremity edema, nontender calf, no cyanosis or clubbing Neuro: Patient is sedated on ventilator. Slightly more arousable than previous exam - Lab 06/27/18 13:30 06/27/18 03:00 Most recent lab results ABG pH 7.44 pH Units (7.32-7.45) 06/27/18 04:39 ABG pCO2 43 mmHg (35-45) 06/27/18 04:39 ABG pO2 69 mmHg (85-104) L 06/27/18 04:39 ABG HCO3 29 mEq/L (21-27) H 06/27/18 04:39 ABG O2 Saturation 94 % (95-98) L 06/27/18 04:39 Calcium 7.9 mg/dL (8.6-10.3) L 06/27/18 03:00 Phosphorus 2.3 mg/dL (2.7-4.5) L 06/24/18 10:00 Magnesium 2.5 mg/dL (1.6-2.6) 06/24/18 03:00 Urine Sodium 128.8 mEq/L 06/17/18 18:15 - VTE Documentation of Mechanical Device: Intermittent pneumatic compression device Consult Discharge Plan - Plan Referrals: Sheryl Stahl, [employer] [Primary Care Provider] -
[2018-06-27] MEDS: Dexmedetomidine HCl 400 MCG/100 ML MLS IVC SCH ×2 (11:39→20:26)
[2018-06-27 12:23] LABS: Folate 2.5 ng/mL (3.0-16.0)
[2018-06-27] MEDS: FentaNYL (PF) 2,500 MCG in EMPTY BAG 1 EACH IVC SCH (13:33)
[2018-06-27 15:49] LABS: Hematocrit 25.2 % (37.5-50.1)
[2018-06-27] MEDS: Norepinephrine 4 MG in D5% in Water 250 ML IVC SCH (20:05)
[2018-06-28] MEDS: Acyclovir 500 MG in D5% in Water 100 ML IVPB SCH ×2 (02:15→15:44)
[2018-06-28] MEDS: Dexmedetomidine HCl 400 MCG/100 ML MLS IVC SCH ×5 (02:59→21:49)
[2018-06-28] MEDS: Artificial Tears SOLN 15 ML BOTTLE BOTH EYES SCH ×6 (03:00→23:10)
[2018-06-28] MEDS: Insulin LISPRO 300 UNITS/3 ML VIAL SQ SCH ×6 (03:02→23:10)
[2018-06-28] MEDS: FentaNYL (PF) 2,500 MCG in EMPTY BAG 1 EACH IVC SCH ×2 (03:17→20:35)
[2018-06-28 03:56] LABS: Hematocrit 25.1 % (37.5-50.1); Hemoglobin 8.1 g/dL (12.9-16.9); Mean Corpuscular HGB Conc 32.3 g/dL (31.6-35.5); Mean Corpuscular Volume 99.2 fL (83.0-100.0); Mean Platelet Volume 10.4 fL (9.4-12.4); Nucleated Red Blood Cells 0.1 /100 WBC (0); Platelet Count 101 K/mcL (140-400); Red Blood Count 2.53 M/mcL (4.19-5.50); Red Cell Distribution Width 17.1 % (11.5-14.5)
[2018-06-28 04:04] LABS: Calcium 8.3 mg/dL (8.6-10.3); Potassium 4.1 mEq/L (3.5-5.1)
[2018-06-28 04:29] LABS: Eosinophils # 0.4 K/mcL (0.0-0.6); Lymphocytes # 1.5 K/mcL (0.6-4.6); Monocytes # 0.8 K/mcL (0.0-1.3); Neutrophils # 16.3 K/mcL (1.6-8.9); Platelet Estimate Slight Decrease (Normal)
[2018-06-28 04:30] LABS: Anisocytosis 1+ (Not Present)
[2018-06-28 04:32] LABS: ABG Base Excess 8 mEq/L (-2 to 3); ABG HCO3 32 mEq/L (21-27); ABG Oxygen Saturation 93 % (95-98); ABG PCO2 43 mmHg (35-45); ABG PH 7.48 pH Units (7.32-7.45); ABG PO2 62 mmHg (85-104); ABG TCO2 34 mEq/L (20-26); Blood Gas Modality ASSIST CONTROL; Blood Gas PEEP 8 cm H2O; Blood Gas Respiration Rate 18; Blood Gas VT 500 cc
[2018-06-28] MEDS ORDERED: 0.9 % Sodium Chloride 2,000 ML ONE (07:36)
--- NOTE | 2018-06-28 07:52 | Pulmonology Progress Note ---
<Bonnie Cummins E - Last Filed: 06/28/18 09:48> Date of Encounter: 06/28/18 Time of Encounter: 07:50 Assessment and Plan (1) Septic shock Current Visit: Yes Status: Acute sepsis suspected secondary to karo fungemia. Currently on Precedex and fentanyl, nephrology would like him to do his full 3 hours of dialysis intake 2 L of fluid off the Levophed during dialysis if needed for pressure support and then weaned back off. MAP this morning 62. On fluconazole for fungemia, possible from UTI. Acyclovir started 06/25/18 for possible herpes encephalitis. No growth on repeat cultures from 06/19/18. New cultures were drawn on 06/24/18 waiting on culture growth. MRI brain unremarkable, no acute intracranial abnormalities. CT scan 06/23/18 showed thickening of the bladder wall possibly due to cystitis. Small bilateral pleural effusions with bibasilar pulmonary airspace opacities, favored to be atelectasis, sludge within the gallbladder. Mildly enlarged anterior mediastinal lymphnode and peripancreatic nodes, may be reactive. Neuro to be consulted due to patient's mental status, not following commands, only arousable to noctious stimuli. They recommending continuing acyclovir, plan on EEG, and will analyze Blood work. They will continue to monitor Bowel sounds today are absent and abdomen is distended- KUB yesterday showed normal bowel gas pattern is (2) Acute respiratory failure with hypoxemia Current Visit: Yes Status: Acute On ventilator Chest XR from this morning shows ET tube approximately 5 cm above sanjeev. pH is 7.48 today. Continue to monitor and repeat ABGs if changes in respiratory status. CPAP trial this morning. (3) Oral lesion Current Visit: Yes Status: Acute Noted on tongue PCR positive for HSV1 Started acyclovir yesterday LP unsuccessful yesterday at bedside and with flouro MRI unremarkable, no acute abnormalities (4) COPD (chronic obstructive pulmonary disease) Current Visit: Yes Status: Chronic Continue ventilator, adjust as tolerated. Qualifiers: COPD type: emphysema Emphysema type: unspecified Qualified Code(s): J43.9 - Emphysema, unspecified (5) Systolic heart failure Current Visit: Yes Status: Acute MAP today 75. Continue to monitor keep MAP above 60. Qualifiers: Heart failure chronicity: unspecified Qualified Code(s): I50.20 - Unspecified systolic (congestive) heart failure (6) LUCILA (acute kidney injury) Current Visit: Yes Status: Acute Creatinine increased today after stopping tammie yesterday, 1.70 today, Nephrology following. Urine output yesterday averaged 52 ml/hr Nephrology switched patient to intermittent dialysis and stopped tammie yesterday Today he will receive dialysis for the full 3 hours, noted 2 L of fluid. Please affect can be used during dialysis for pressor support and then weaned back off. (7) Hypocalcemia Current Visit: Yes Status: Acute Continue to monitor. Calcium today at 7.9. Replace if necessary (8) Thrombocytopenia Current Visit: Yes Status: Resolved Platelets slightly decreased today to 107. Continue to monitor. 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 NO heparin was in use in the lines which could have caused the excessive clotting on dialysis filter. Also, platelet count could have been decreased do to septic shock. (10) Hypokalemia Current Visit: Yes Status: Resolved resolved, today potassium is 4.4, stable (11) Type 2 diabetes mellitus Current Visit: Yes Status: Chronic Switched to subcutaneous insulin medium sliding scale q4 Qualifiers: Diabetes mellitus intermediate designer insulin use: with long-term use Diabetes mellitus complication status: with unspecified complications Qualified Code(s) : E11.8 - Type 2 diabetes mellitus with unspecified complications; Z79.4 - intermediate designer (current) use of insulin (12) DVT prophylaxis Current Visit: Yes Status: Acute Heparin 5000 units q12 Subjective Principal diagnosis: septic shock Interval history: Mr. Mccarthy was seen at bedside this morning. He is sedated and intubated and on ventilator. Currently on pressidex and fentanyl. Creatinine increased to 1.63 after dialysis yesterday, nephrology following and will be doing intermediate dialysis. WBC count decreased from yesterday. ABGs show pH 7.48, inspred O2 was raised to 60. 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 Neuro consulted for mental status and possible herpes encephalitis. Currently on Heparin for DVT prophylaxis. Objective PUL Vital signs: Last Vital Signs Temp 98.4 F 06/28/18 04:00 Pulse 73 06/28/18 06:00 Resp 18 06/28/18 06:06 BP 108/62 06/28/18 06:00 Pulse Ox 94 06/28/18 06:06 General appearance: other (sedated and ventilated) Eyes: nonicteric ENT: oropharynx dry Auscultation: bilateral: diminished breath sounds, rhonchi (Diffusely) Cardiovascular: regular rate and rhythm Gastrointestinal: absent bowel sounds, other (Distended) Integumentary: other (Upper tongue lesions noted, red with crusted borders, but not increased in diameter or increasing numbers) Extremities: no cyanosis, edema (2+ pitting to the calf) Ventilator Settings Ventilator Settings: Ventilator Settings, Last 8 Hours Ventilator Tidal Volume 500 Setting Ventilator Tidal Volume 500 Setting Ventilator Tidal Volume 500 Setting Ventilator Tidal Volume 500 Setting Ventilator Tidal Volume 500 Setting Ventilator Tidal Volume 500 Setting Ventilator Tidal Volume 500 Setting Ventilator Tidal Volume 500 Setting Ventilator Tidal Volume 500 Setting Ventilator Tidal Volume 500 Setting Ventilator Tidal Volume 500 Setting Ventilator Tidal Volume 500 Setting Ventilator Respiratory Rate 18 Setting Ventilator Respiratory Rate 18 Setting Ventilator Respiratory Rate 18 Setting Ventilator Respiratory Rate 18 Setting Ventilator Respiratory Rate 18 Setting Ventilator Respiratory Rate 18 Setting Ventilator Respiratory Rate 18 Setting Ventilator Respiratory Rate 18 Setting Ventilator Respiratory Rate 18 Setting Ventilator Respiratory Rate 18 Setting Ventilator Respiratory Rate 18 Setting Ventilator Respiratory Rate 18 Setting Actual Respiratory Rate 18 Actual Respiratory Rate 18 Actual Respiratory Rate 18 Actual Respiratory Rate 18 Actual Respiratory Rate 18 Actual Respiratory Rate 18 Actual Respiratory Rate 18 Actual Respiratory Rate 18 Actual Respiratory Rate 18 Actual Respiratory Rate 18 Actual Respiratory Rate 18 Positive End Expiratory 8 Pressure Positive End Expiratory 8 Pressure Positive End Expiratory 8 Pressure Positive End Expiratory 8 Pressure Positive End Expiratory 8 Pressure Positive End Expiratory 8 Pressure Positive End Expiratory 8 Pressure Positive End Expiratory 8 Pressure Positive End Expiratory 8 Pressure Positive End Expiratory 8 Pressure Positive End Expiratory 8 Pressure Positive End Expiratory 8 Pressure Peak Inspiratory Airway 33 Pressure Peak Inspiratory Airway 34 Pressure Peak Inspiratory Airway 34 Pressure Peak Inspiratory Airway 45 Pressure Peak Inspiratory Airway 48 Pressure Peak Inspiratory Airway 50 Pressure Peak Inspiratory Airway 39 Pressure Peak Inspiratory Airway 38 Pressure Peak Inspiratory Airway 39 Pressure Peak Inspiratory Airway 39 Pressure Peak Inspiratory Airway 40 Pressure Results - Laboratory Findings CBC and BMP: 06/28/18 03:30 06/28/18 03:30 ABG ABG pH 7.48 pH Units (7.32-7.45) H 06/28/18 04:29 ABG pCO2 43 mmHg (35-45) 06/28/18 04:29 ABG pO2 62 mmHg (85-104) L 06/28/18 04:29 ABG O2 Saturation 93 % (95-98) L 06/28/18 04:29 PT/INR, D-dimer PT 16.7 Seconds (9.4-12.1) H 06/22/18 03:45 D-Dimer 3465 ng/mLFEU (0-500) H 06/18/18 08:08 Abnormal lab findings: Abnormal lab results WBC 18.9 K/mcL (4.3-11.1) H 06/28/18 03:30 RBC 2.53 M/mcL (4.19-5.50) L 06/28/18 03:30 Hgb 8.1 g/dL (12.9-16.9) L 06/28/18 03:30 Hct 25.1 % (37.5-50.1) L 06/28/18 03:30 RDW 17.1 % (11.5-14.5) H 06/28/18 03:30 Plt Count 101 K/mcL (140-400) L 06/28/18 03:30 Immature Gran % 14.0 % (0-4) H 06/24/18 03:00 Band Neutrophils % 6.0 % (0-4) H 06/27/18 03:00 Metamyelocytes % 2.0 % (0) H 06/27/18 03:00 Myelocytes % 6.0 % (0) H 06/27/18 03:00 Neutrophils # 16.3 K/mcL (1.6-8.9) H 06/28/18 03:30 Nucleated RBCs/100 WBC 0.1 /100 WBC (0) H 06/28/18 03:30 Toxic Granulation Present (Not Present) A 06/18/18 03:05 Toxic Vacuolation Present (Not Present) A 06/22/18 03:45 Platelet Estimate Slight Decrease (Normal) L 06/28/18 03:30 Large Platelets Present (Not Present) A 06/23/18 03:15 Immature Plt Fraction 27.2 % (1.1-6.1) H 06/22/18 03:45 Polychromasia 1+ (Not Present) A 06/27/18 03:00 Basophilic Stippling 1+ (Not Present) A 06/26/18 04:00 Anisocytosis 1+ (Not Present) A 06/28/18 03:30 Macrocytosis Present (Not Present) A 06/26/18 04:00 PT 16.7 Seconds (9.4-12.1) H 06/22/18 03:45 APTT 62.8 Seconds (26.0-36.0) H 06/23/18 08:00 Fibrinogen 578 mg/dL (169-393) H 06/18/18 08:08 D-Dimer 3465 ng/mLFEU (0-500) H 06/18/18 08:08 ABG pH 7.48 pH Units (7.32-7.45) H 06/28/18 04:29 ABG pO2 62 mmHg (85-104) L 06/28/18 04:29 ABG HCO3 32 mEq/L (21-27) H 06/28/18 04:29 ABG Total CO2 34 mEq/L (20-26) H 06/28/18 04:29 ABG O2 Saturation 93 % (95-98) L 06/28/18 04:29 ABG Base Excess 8 mEq/L (-2 to 3) H 06/28/18 04:29 BUN 25 mg/dL (6-20) H 06/28/18 03:30 Creatinine 1.63 mg/dL (0.70-1.30) H 06/28/18 03:30 Est GFR ( Amer) 54 (> 60) L 06/28/18 03:30 Est GFR (Non-Af Amer) 44 (> 60) L 06/28/18 03:30 Glucose 157 mg/dL (70-105) H 06/28/18 03:30 POC Glucose 142 mg/dL (70-99) H 06/28/18 07:44 Calculated Osmolality 304 (280-300) H 06/28/18 03:30 Calcium 8.3 mg/dL (8.6-10.3) L 06/28/18 03:30 Venous Ioniz Calcium 1.01 mmol/L (1.15-1.35) L 06/24/18 03:13 Phosphorus 2.3 mg/dL (2.7-4.5) L 06/24/18 10:00 Direct Bilirubin 0.4 mg/dL (0.0-0.2) H 06/23/18 03:15 Alkaline Phosphatase 120 Units/L (34-104) H 06/27/18 03:00 Troponin I 0.92 ng/mL (< 0.04) H* 06/17/18 22:33 Serum Total Protein 5.2 g/dL (6.4-8.9) L 06/27/18 03:00 Albumin 2.3 g/dL (3.5-5.7) L 06/27/18 03:00 Albumin/Globulin Ratio 0.8 (1.1-2.2) L 06/27/18 03:00 Amylase 20 Units/L (29-103) L 06/23/18 16:27 Folate 2.5 ng/mL (3.0-16.0) L 06/27/18 11:25 Procalcitonin 107.11 ng/mL (<=0.07) H 06/17/18 16:40 TSH 7.234 mcIU/mL (0.340-5.600) H 06/27/18 11:25 Urine Protein 30 mg/dL (Neg-Trace) H 06/24/18 11:15 Urine Blood Moderate (Negative) H 06/24/18 11:15 Urine Bilirubin Small (Negative) H 06/24/18 11:15 Ur Leukocyte Esterase Moderate (Negative) H 06/24/18 11:15 Urine Microscopic RBC 3-5 per hpf (0-3) H 06/24/18 11:15 Urine Microscopic WBC 50-100 per hpf (0-3) H 06/24/18 11:15 Ur Squamous Epith Cells Many per lpf (None-Few) H 06/24/18 11:15 Vancomycin Trough 18 mcg/mL (5-10) H 06/19/18 08:20 Urine Opiates Screen Positive ng/mL (Dvidhk=998) H 06/18/18 10:37 U Benzodiazepines Scrn Positive ng/mL (Cqwkyr=560) H 06/18/18 10:37 HSV I DETECTED (Not Detect) A 06/24/18 15:10 - Clinical Findings Intake & Output: Intake & Output 06/27/18 06/27/18 06/28/18 15:59 23:59 07:59 Intake Total 1083 / 1083 85 / 85 260 / 260 Output Total 3382 / 3382 875 / 875 1150 / 1150 Balance -2299 / -2299 -790 / -790 -890 / -890 - VTE Documentation of Mechanical Device: Intermittent pneumatic compression device Consult Discharge Plan - Plan Referrals: Sheryl Stahl, LOADING MACHINE OPERATOR [Primary Care Provider] - <Inga Gordon - Last Filed: 06/28/18 11:07> Date of Encounter: 06/28/18 Objective PUL Vital signs: Last Vital Signs Temp 100.4 F H 06/28/18 10:00 Pulse 83 06/28/18 10:00 Resp 26 06/28/18 10:00 BP 105/56 06/28/18 10:15 Pulse Ox 94 06/28/18 10:00 Ventilator Settings Ventilator Settings: Ventilator Settings, Last 8 Hours Ventilator Tidal Volume 500 Setting Ventilator Tidal Volume 500 Setting Ventilator Tidal Volume 500 Setting Ventilator Tidal Volume 500 Setting Ventilator Tidal Volume 500 Setting Ventilator Tidal Volume 500 Setting Ventilator Tidal Volume 500 Setting Ventilator Tidal Volume 500 Setting Ventilator Tidal Volume 500 Setting Ventilator Tidal Volume 500 Setting Ventilator Tidal Volume 500 Setting Ventilator Tidal Volume 500 Setting Ventilator Respiratory Rate 18 Setting Ventilator Respiratory Rate 18 Setting Ventilator Respiratory Rate 18 Setting Ventilator Respiratory Rate 18 Setting Ventilator Respiratory Rate 18 Setting Ventilator Respiratory Rate 18 Setting Ventilator Respiratory Rate 18 Setting Ventilator Respiratory Rate 18 Setting Ventilator Respiratory Rate 18 Setting Ventilator Respiratory Rate 18 Setting Ventilator Respiratory Rate 18 Setting Ventilator Respiratory Rate 18 Setting Actual Respiratory Rate 18 Actual Respiratory Rate 18 Actual Respiratory Rate 18 Actual Respiratory Rate 18 Actual Respiratory Rate 18 Actual Respiratory Rate 18 Actual Respiratory Rate 18 Actual Respiratory Rate 18 Actual Respiratory Rate 18 Actual Respiratory Rate 18 Actual Respiratory Rate 18 Positive End Expiratory 5 Pressure Positive End Expiratory 5 Pressure Positive End Expiratory 5 Pressure Positive End Expiratory 5 Pressure Positive End Expiratory 8 Pressure Positive End Expiratory 8 Pressure Positive End Expiratory 8 Pressure Positive End Expiratory 8 Pressure Positive End Expiratory 8 Pressure Positive End Expiratory 8 Pressure Positive End Expiratory 8 Pressure Positive End Expiratory 8 Pressure Peak Inspiratory Airway 35 Pressure Peak Inspiratory Airway 35 Pressure Peak Inspiratory Airway 35 Pressure Peak Inspiratory Airway 35 Pressure Peak Inspiratory Airway 35 Pressure Peak Inspiratory Airway 35 Pressure Peak Inspiratory Airway 33 Pressure Peak Inspiratory Airway 34 Pressure Peak Inspiratory Airway 34 Pressure Peak Inspiratory Airway 45 Pressure Peak Inspiratory Airway 48 Pressure Results - Laboratory Findings CBC and BMP: 06/28/18 03:30 06/28/18 03:30 ABG ABG pH 7.48 pH Units (7.32-7.45) H 06/28/18 04:29 ABG pCO2 43 mmHg (35-45) 06/28/18 04:29 ABG pO2 62 mmHg (85-104) L 06/28/18 04:29 ABG O2 Saturation 93 % (95-98) L 06/28/18 04:29 PT/INR, D-dimer PT 16.7 Seconds (9.4-12.1) H 06/22/18 03:45 D-Dimer 3465 ng/mLFEU (0-500) H 06/18/18 08:08 Abnormal lab findings: Abnormal lab results WBC 18.9 K/mcL (4.3-11.1) H 06/28/18 03:30 RBC 2.53 M/mcL (4.19-5.50) L 06/28/18 03:30 Hgb 8.1 g/dL (12.9-16.9) L 06/28/18 03:30 Hct 25.1 % (37.5-50.1) L 06/28/18 03:30 RDW 17.1 % (11.5-14.5) H 06/28/18 03:30 Plt Count 101 K/mcL (140-400) L 06/28/18 03:30 Immature Gran % 14.0 % (0-4) H 06/24/18 03:00 Band Neutrophils % 6.0 % (0-4) H 06/27/18 03:00 Metamyelocytes % 2.0 % (0) H 06/27/18 03:00 Myelocytes % 6.0 % (0) H 06/27/18 03:00 Neutrophils # 16.3 K/mcL (1.6-8.9) H 06/28/18 03:30 Nucleated RBCs/100 WBC 0.1 /100 WBC (0) H 06/28/18 03:30 Toxic Granulation Present (Not Present) A 06/18/18 03:05 Toxic Vacuolation Present (Not Present) A 06/22/18 03:45 Platelet Estimate Slight Decrease (Normal) L 06/28/18 03:30 Large Platelets Present (Not Present) A 06/23/18 03:15 Immature Plt Fraction 27.2 % (1.1-6.1) H 06/22/18 03:45 Polychromasia 1+ (Not Present) A 06/27/18 03:00 Basophilic Stippling 1+ (Not Present) A 06/26/18 04:00 Anisocytosis 1+ (Not Present) A 06/28/18 03:30 Macrocytosis Present (Not Present) A 06/26/18 04:00 PT 16.7 Seconds (9.4-12.1) H 06/22/18 03:45 APTT 62.8 Seconds (26.0-36.0) H 06/23/18 08:00 Fibrinogen 578 mg/dL (169-393) H 06/18/18 08:08 D-Dimer 3465 ng/mLFEU (0-500) H 06/18/18 08:08 ABG pH 7.48 pH Units (7.32-7.45) H 06/28/18 04:29 ABG pO2 62 mmHg (85-104) L 06/28/18 04:29 ABG HCO3 32 mEq/L (21-27) H 06/28/18 04:29 ABG Total CO2 34 mEq/L (20-26) H 06/28/18 04:29 ABG O2 Saturation 93 % (95-98) L 06/28/18 04:29 ABG Base Excess 8 mEq/L (-2 to 3) H 06/28/18 04:29 BUN 25 mg/dL (6-20) H 06/28/18 03:30 Creatinine 1.63 mg/dL (0.70-1.30) H 06/28/18 03:30 Est GFR ( Amer) 54 (> 60) L 06/28/18 03:30 Est GFR (Non-Af Amer) 44 (> 60) L 06/28/18 03:30 Glucose 157 mg/dL (70-105) H 06/28/18 03:30 POC Glucose 142 mg/dL (70-99) H 06/28/18 07:44 Calculated Osmolality 304 (280-300) H 06/28/18 03:30 Calcium 8.3 mg/dL (8.6-10.3) L 06/28/18 03:30 Venous Ioniz Calcium 1.01 mmol/L (1.15-1.35) L 06/24/18 03:13 Phosphorus 2.3 mg/dL (2.7-4.5) L 06/24/18 10:00 Direct Bilirubin 0.4 mg/dL (0.0-0.2) H 06/23/18 03:15 Alkaline Phosphatase 120 Units/L (34-104) H 06/27/18 03:00 Troponin I 0.92 ng/mL (< 0.04) H* 06/17/18 22:33 Serum Total Protein 5.2 g/dL (6.4-8.9) L 06/27/18 03:00 Albumin 2.3 g/dL (3.5-5.7) L 06/27/18 03:00 Albumin/Globulin Ratio 0.8 (1.1-2.2) L 06/27/18 03:00 Amylase 20 Units/L (29-103) L 06/23/18 16:27 Folate 2.5 ng/mL (3.0-16.0) L 06/27/18 11:25 Procalcitonin 107.11 ng/mL (<=0.07) H 06/17/18 16:40 TSH 7.234 mcIU/mL (0.340-5.600) H 06/27/18 11:25 Urine Protein 30 mg/dL (Neg-Trace) H 06/24/18 11:15 Urine Blood Moderate (Negative) H 06/24/18 11:15 Urine Bilirubin Small (Negative) H 06/24/18 11:15 Ur Leukocyte Esterase Moderate (Negative) H 06/24/18 11:15 Urine Microscopic RBC 3-5 per hpf (0-3) H 06/24/18 11:15 Urine Microscopic WBC 50-100 per hpf (0-3) H 06/24/18 11:15 Ur Squamous Epith Cells Many per lpf (None-Few) H 06/24/18 11:15 Vancomycin Trough 18 mcg/mL (5-10) H 06/19/18 08:20 Urine Opiates Screen Positive ng/mL (Yzoysa=768) H 06/18/18 10:37 U Benzodiazepines Scrn Positive ng/mL (Ayjapb=821) H 06/18/18 10:37 HSV I DETECTED (Not Detect) A 06/24/18 15:10 - Clinical Findings Intake & Output: Intake & Output 06/27/18 06/28/18 06/28/18 23:59 07:59 15:59 Intake Total 85 / 85 260 / 260 700 / 700 Output Total 875 / 875 1150 / 1150 142 / 142 Balance -790 / -790 -890 / -890 558 / 558 - Attending Attestation I examined this patient and my medical decision-making was reviewed with the Resident Physician. I agree with the documented findings, disposition and treatment plan as described except to the extent set forth below. Patient seen and examined. Labs, radiology, chart personally reviewed. Agree with resident's history and physical, assessment, plan with following comments: MEDICAL COLLECTIONS REPRESENTATIVE: Patient does not follows commands, patient respond to stimuli and to lighten sedation. Pulmonary: Acceptable oxygenation and ventilation and decreased PEEP to 5 hoping for spontaneous breathing trial Cardiovascular: stable GI: Nutrition per dietary and GI prophylaxis per routine Heme: DVT prophylaxis per routine ID: Continue antibiotics and plan to de-escalation Renal; urine out put and renal funtion reviewed. patient will have hemodialysis if nephrology service recommended.. Endorcine: blood glucose is monitored Lines: all lines checked and no evidence of infections Skin: skin care to prevent pressure ulcers per nursing routine care Family has been updated.
[2018-06-28] MEDS: Nystatin SUSP 5 ML UD.LIQ PO SCH ×4 (07:57→20:47)
[2018-06-28] MEDS: Pantoprazole 40 MG VIAL IVP SCH (07:57)
[2018-06-28] MEDS: Chlorhexidine Rinse 15 ML MOUTHWASH MM SCH ×2 (07:57→20:47)
[2018-06-28] MEDS ORDERED: *HR* Heparin 10,000 UNIT/10 ML VIAL IV PRN (08:26)
[2018-06-28] MEDS ORDERED: 0.9 % Sodium Chloride 250 ML IVC PRN (08:26)
[2018-06-28] MEDS ORDERED: 0.9 % Sodium Chloride 1,000 ML PRIME SCH (08:30)
[2018-06-28] MEDS: Norepinephrine 8 MG in D5% in Water 250 ML IVC SCH (10:15)
--- NOTE | 2018-06-28 10:39 | Nephrology Progress Note ---
Date of Encounter: 06/28/18 Time of Encounter: 10:00 - Assessment and Plan (1) LUCILA (acute kidney injury) Current Visit: Yes Status: Acute Nonoliguric LUCILA and now off Kimmie and requiring daily assessment for HD and/or UF. He had HD yesterday (Saturday was the first day off Kimmie), and so will arrange for further clearance and UF with HD today (Saturday) to help maintain his volume status. Of note, depending upon his chemistry and UOP, I will likely hold off on HD unless needed on Saturday. Continue to follow a renal protective strategy as able: dose renally cleared Rx by [facility], strict I/Os, daily weights and avoidance of nephrotoxins. Will follow with you. (2) Acute respiratory failure with hypoxemia Current Visit: Yes Status: Acute (3) Type 2 diabetes mellitus Current Visit: Yes Status: Chronic Hx of DM, and Obesity, which are underlying risk factors for renal dysfunction. Qualifiers: Diabetes mellitus snf insulin use: with snf use Diabetes mellitus complication status: with unspecified complications Qualified Code(s) : E11.8 - Type 2 diabetes mellitus with unspecified complications; Z79.4 - intermediate card tender (current) use of insulin (4) Anemia Current Visit: Yes Status: Acute Transfusion parameters as per primary Qualifiers: Anemia type: other cause Other causes of anemia: acute posthemorrhagic Qualified Code(s): D62 - Acute posthemorrhagic anemia Subjective Principal diagnosis: septic shock Interval history: Pt was s/e in the ICU unit. He remained intubated, thus limiting the Subjective portion of this note. Objective - Vital Signs Vital signs: Vital Signs Temp Pulse Resp BP Pulse Ox 06/28/18 10:00 83 18 104/53 94 06/28/18 09:21 99.4 F 06/28/18 09:15 18 104/53 94 06/28/18 09:00 86 18 102/42 93 06/28/18 08:00 85 18 109/62 94 06/28/18 07:50 18 104/53 94 06/28/18 07:00 99.4 F 85 18 108/64 94 06/28/18 06:06 18 94 06/28/18 06:00 73 18 108/62 95 06/28/18 05:00 71 18 105/60 94 06/28/18 04:00 98.4 F 70 18 100/60 94 06/28/18 03:55 18 94 06/28/18 03:00 98.4 F 76 18 91/55 93 06/28/18 02:13 18 95 06/28/18 02:00 69 18 119/68 95 06/28/18 01:00 70 18 117/75 95 06/28/18 00:07 18 95 06/28/18 00:04 68 06/28/18 00:00 97.7 F 68 18 119/72 95 06/27/18 23:00 65 18 117/70 95 06/27/18 22:00 75 18 108/75 96 06/27/18 21:32 18 93 06/27/18 21:00 71 18 108/73 93 06/27/18 20:00 97.4 F L 73 18 100/68 91 06/27/18 19:26 18 91 06/27/18 19:00 70 18 113/73 91 06/27/18 18:00 69 18 112/72 94 06/27/18 17:45 18 109/72 90 06/27/18 17:00 70 18 99/63 89 06/27/18 16:00 97.9 F 86 18 105/62 90 06/27/18 15:31 18 125/72 93 06/27/18 15:30 97.6 F 18 141/77 06/27/18 15:00 54 18 125/72 93 06/27/18 14:45 127/72 06/27/18 14:30 114/67 06/27/18 14:15 89/54 06/27/18 14:00 70 18 93/54 89 06/27/18 13:45 91/52 06/27/18 13:30 99/58 06/27/18 13:28 23 104/66 92 06/27/18 13:15 105/65 06/27/18 13:00 97 20 107/56 91 06/27/18 12:45 107/84 06/27/18 12:30 104/66 06/27/18 12:15 101/56 06/27/18 12:00 90 18 96/65 91 06/27/18 11:45 100.5 F H 17 113/63 06/27/18 11:05 90 06/27/18 11:00 100.5 F H 90 19 108/56 91 Intake and Output 06/27/18 06/28/18 06/28/18 23:59 07:59 15:59 Intake Total 85 / 85 260 / 260 100 / 100 Output Total 875 / 875 1150 / 1150 142 / 142 Balance -790 / -790 -890 / -890 -42 / -42 Intake: IV Fluids 85 / 85 260 / 260 100 / 100 PRECEDEX Premix 400 mcg In 100 85 / 85 100 / 100 100 / 100 ml @ 0.2 MCG/KG/HR 6.65 mls/hr IVC .Q15H3M NADIA Rx#:[id number] FentaNYL (PF) 2,500 MCG In 50 / 50 Empty Bag 1 Each @ 50 MCG/HR 1 mls/hr IVC CONT NADIA Rx#: [id number] Zovirax 500 MG In Dextrose 5% 110 / 110 100 ML @ 110 mls/hr IVPB Q12H NADIA Rx#:[id number] Output: Catheter 875 / 875 1150 / 1150 142 / 142 Other: Blood Glucose* 132 159 142 - General Appearance General appearance: Present: well-developed, appears started age, obese, sedated on ventilator, intubated EENT: Present: ATNC, PERRL, mucous membranes moist Neck: Present: supple Respiratory: Present: course breath sounds, rhonchi Cardiology: Present: edema, regular rate, regular rhythm, normal S1, normal S2 Dialysis Vascular Access: Venous Catheter (RIJ temporary HD catheter exit site appeared C/D/I) Gastrointestinal: Present: normoactive bowel sounds, no tenderness, no guarding , obese Integumentary: Present: warm and dry Neurologic: Present: no asterixis, confused, disoriented Musculoskeletal: Present: no clubbing - Lab 06/29/18 03:40 06/29/18 03:40 Most recent lab results ABG pH 7.48 pH Units (7.32-7.45) H 06/28/18 04:29 ABG pCO2 43 mmHg (35-45) 06/28/18 04:29 ABG pO2 62 mmHg (85-104) L 06/28/18 04:29 ABG HCO3 32 mEq/L (21-27) H 06/28/18 04:29 ABG O2 Saturation 93 % (95-98) L 06/28/18 04:29 Calcium 8.3 mg/dL (8.6-10.3) L 06/28/18 03:30 Phosphorus 2.3 mg/dL (2.7-4.5) L 06/24/18 10:00 Magnesium 2.5 mg/dL (1.6-2.6) 06/24/18 03:00 Urine Sodium 128.8 mEq/L 06/17/18 18:15 - VTE Documentation of Mechanical Device: Intermittent pneumatic compression device Consult Discharge Plan - Plan Referrals: Sheryl Stahl, GREIGE GOODS MARKER [Primary Care Provider] -
--- NOTE | 2018-06-28 13:51 | Neurology Progress Note ---
Date of Encounter: 06/28/18 Time of Encounter: 11:49 Assessment and Plan (1) Encephalopathy Current Visit: Yes Status: Acute Patient continued to be intubated remain on sedation off-and-on. Slightly more awake as compared to the yesterday while getting dialysis. MRI of the brain earlier did not show any acute infarct. At the same time EEG did not show any significant seizure activity At the moment his symptoms are more off for metabolic toxic encephalopathy currently he is on multiple medication including broad-spectrum antibiotics as well as antiviral agent suggested to continue as per ID recommendations Continue to treat his underlying metabolic abnormalities. Yoselin Tobin MD Subjective Principal diagnosis: septic shock Interval history: patient remain intubated not much overall difference but slightly more awake than yesterday he is getting hemodialysis now significant rise in Serum creatinine today, no significant evidence of increased pulmonary edema. Objective - Constitutional Vitals: Temp Pulse Resp BP Pulse Ox 100.0 F H 87 26 132/77 98 06/28/18 13:14 06/28/18 13:00 06/28/18 13:14 06/28/18 13:14 06/28/18 13:00 - Neurological Exam Sensorimotor examination: Present: other Motor Examination: Present: other (Patient ntubated , limited exam but more awake as compared to yesterday pupils are reactive. Minimal withdrawal to the deep pain in all 4 extremities equally.) Sensation intact: Present: pain Mental Status Examination: Present: stupor Cranial Nerve Exam: pupil sluggish to react to light: Right (Both side ) - VTE Documentation of Mechanical Device: Intermittent pneumatic compression device Results - Laboratory Findings CBC and BMP: 06/28/18 03:30 06/28/18 03:30 Abnormal lab findings: Abnormal lab results WBC 18.9 K/mcL (4.3-11.1) H 06/28/18 03:30 RBC 2.53 M/mcL (4.19-5.50) L 06/28/18 03:30 Hgb 8.1 g/dL (12.9-16.9) L 06/28/18 03:30 Hct 25.1 % (37.5-50.1) L 06/28/18 03:30 RDW 17.1 % (11.5-14.5) H 06/28/18 03:30 Plt Count 101 K/mcL (140-400) L 06/28/18 03:30 Immature Gran % 14.0 % (0-4) H 06/24/18 03:00 Band Neutrophils % 6.0 % (0-4) H 06/27/18 03:00 Metamyelocytes % 2.0 % (0) H 06/27/18 03:00 Myelocytes % 6.0 % (0) H 06/27/18 03:00 Neutrophils # 16.3 K/mcL (1.6-8.9) H 06/28/18 03:30 Nucleated RBCs/100 WBC 0.1 /100 WBC (0) H 06/28/18 03:30 Toxic Granulation Present (Not Present) A 06/18/18 03:05 Toxic Vacuolation Present (Not Present) A 06/22/18 03:45 Platelet Estimate Slight Decrease (Normal) L 06/28/18 03:30 Large Platelets Present (Not Present) A 06/23/18 03:15 Immature Plt Fraction 27.2 % (1.1-6.1) H 06/22/18 03:45 Polychromasia 1+ (Not Present) A 06/27/18 03:00 Basophilic Stippling 1+ (Not Present) A 06/26/18 04:00 Anisocytosis 1+ (Not Present) A 06/28/18 03:30 Macrocytosis Present (Not Present) A 06/26/18 04:00 PT 16.7 Seconds (9.4-12.1) H 06/22/18 03:45 APTT 62.8 Seconds (26.0-36.0) H 06/23/18 08:00 Fibrinogen 578 mg/dL (169-393) H 06/18/18 08:08 D-Dimer 3465 ng/mLFEU (0-500) H 06/18/18 08:08 ABG pH 7.48 pH Units (7.32-7.45) H 06/28/18 04:29 ABG pO2 62 mmHg (85-104) L 06/28/18 04:29 ABG HCO3 32 mEq/L (21-27) H 06/28/18 04:29 ABG Total CO2 34 mEq/L (20-26) H 06/28/18 04:29 ABG O2 Saturation 93 % (95-98) L 06/28/18 04:29 ABG Base Excess 8 mEq/L (-2 to 3) H 06/28/18 04:29 BUN 25 mg/dL (6-20) H 06/28/18 03:30 Creatinine 1.63 mg/dL (0.70-1.30) H 06/28/18 03:30 Est GFR ( Amer) 54 (> 60) L 06/28/18 03:30 Est GFR (Non-Af Amer) 44 (> 60) L 06/28/18 03:30 Glucose 157 mg/dL (70-105) H 06/28/18 03:30 POC Glucose 100 mg/dL (70-99) H 06/28/18 11:48 Calculated Osmolality 304 (280-300) H 06/28/18 03:30 Calcium 8.3 mg/dL (8.6-10.3) L 06/28/18 03:30 Venous Ioniz Calcium 1.01 mmol/L (1.15-1.35) L 06/24/18 03:13 Phosphorus 2.3 mg/dL (2.7-4.5) L 06/24/18 10:00 Direct Bilirubin 0.4 mg/dL (0.0-0.2) H 06/23/18 03:15 Alkaline Phosphatase 120 Units/L (34-104) H 06/27/18 03:00 Troponin I 0.92 ng/mL (< 0.04) H* 06/17/18 22:33 Serum Total Protein 5.2 g/dL (6.4-8.9) L 06/27/18 03:00 Albumin 2.3 g/dL (3.5-5.7) L 06/27/18 03:00 Albumin/Globulin Ratio 0.8 (1.1-2.2) L 06/27/18 03:00 Amylase 20 Units/L (29-103) L 06/23/18 16:27 Folate 2.5 ng/mL (3.0-16.0) L 06/27/18 11:25 Procalcitonin 107.11 ng/mL (<=0.07) H 06/17/18 16:40 TSH 7.234 mcIU/mL (0.340-5.600) H 06/27/18 11:25 Urine Protein 30 mg/dL (Neg-Trace) H 06/24/18 11:15 Urine Blood Moderate (Negative) H 06/24/18 11:15 Urine Bilirubin Small (Negative) H 06/24/18 11:15 Ur Leukocyte Esterase Moderate (Negative) H 06/24/18 11:15 Urine Microscopic RBC 3-5 per hpf (0-3) H 06/24/18 11:15 Urine Microscopic WBC 50-100 per hpf (0-3) H 06/24/18 11:15 Ur Squamous Epith Cells Many per lpf (None-Few) H 06/24/18 11:15 Vancomycin Trough 18 mcg/mL (5-10) H 06/19/18 08:20 Urine Opiates Screen Positive ng/mL (Yniydu=207) H 06/18/18 10:37 U Benzodiazepines Scrn Positive ng/mL (Rmevdn=756) H 06/18/18 10:37 HSV I DETECTED (Not Detect) A 06/24/18 15:10 Consult Discharge Plan - Plan Referrals: Sheryl Stahl, FIELD IRRIGATION WORKER [Primary Care Provider] -
[2018-06-28] MEDS: Fluconazole 200 MG/100 ML IVPB SCH (16:55)
[2018-06-28] MEDS: Norepinephrine 4 MG in D5% in Water 250 ML IVC SCH (20:46)
[2018-06-29] MEDS: Acyclovir 500 MG in D5% in Water 100 ML IVPB SCH ×2 (01:16→17:15)
[2018-06-29] MEDS: Artificial Tears SOLN 15 ML BOTTLE BOTH EYES SCH ×5 (03:47→20:31)
[2018-06-29] MEDS: Dexmedetomidine HCl 400 MCG/100 ML MLS IVC SCH ×4 (03:48→20:32)
[2018-06-29] MEDS: Insulin LISPRO 300 UNITS/3 ML VIAL SQ SCH ×5 (03:49→20:32)
[2018-06-29 04:01] LABS: Basophils % 0.2 %; Immature Granulocytes % 2.7 % (0-4); Mean Platelet Volume 10.6 fL (9.4-12.4)
[2018-06-29 04:03] LABS: Eosinophils # 0.2 K/mcL (0.0-0.6); Eosinophils % 0.9 %; Hematocrit 24.8 % (37.5-50.1); Immature Platelets 5.1 % (1.1-6.1); Lymphocytes # 1.7 K/mcL (0.6-4.6); Lymphocytes % 10.6 %; Mean Corpuscular HGB Conc 32.3 g/dL (31.6-35.5); Mean Corpuscular Hemoglobin 32.3 pg (28.0-33.3); Monocytes # 1.1 K/mcL (0.0-1.3); Monocytes % 6.6 %; Platelet Count 103 K/mcL (140-400); Red Blood Count 2.48 M/mcL (4.19-5.50); Red Cell Distribution Width 17.4 % (11.5-14.5)
[2018-06-29 04:19] LABS: Calcium 8.5 mg/dL (8.6-10.3); Potassium 3.9 mEq/L (3.5-5.1)
[2018-06-29 04:23] LABS: ABG Base Excess 10 mEq/L (-2 to 3); ABG HCO3 35 mEq/L (21-27); ABG Oxygen Saturation 95 % (95-98); ABG PCO2 46 mmHg (35-45); ABG PH 7.49 pH Units (7.32-7.45); ABG PO2 70 mmHg (85-104); ABG TCO2 36 mEq/L (20-26); Blood Gas Modality ASSIST CONTROL; Blood Gas PEEP 5 cm H2O; Blood Gas Respiration Rate 18; Blood Gas VT 500 cc
[2018-06-29] MEDS: Pantoprazole 40 MG VIAL IVP SCH (07:36)
[2018-06-29] MEDS: Nystatin SUSP 5 ML UD.LIQ PO SCH ×4 (07:36→20:32)
[2018-06-29] MEDS: Chlorhexidine Rinse 15 ML MOUTHWASH MM SCH ×2 (07:37→20:32)
--- NOTE | 2018-06-29 08:34 | Pulmonology Progress Note ---
<EvanKaroang M - Last Filed: 06/29/18 11:10> Date of Encounter: 06/29/18 Objective PUL Vital signs: Last Vital Signs Temp 101.4 F H 06/29/18 08:01 Pulse 83 06/29/18 10:00 Resp 16 06/29/18 10:00 BP 116/62 06/29/18 10:00 Pulse Ox 93 06/29/18 10:00 Ventilator Settings Ventilator Settings: Ventilator Settings, Last 8 Hours Ventilator Tidal Volume 500 Setting Ventilator Tidal Volume 500 Setting Ventilator Tidal Volume 500 Setting Ventilator Tidal Volume 500 Setting Ventilator Tidal Volume 500 Setting Ventilator Tidal Volume 500 Setting Ventilator Tidal Volume 500 Setting Ventilator Tidal Volume 500 Setting Ventilator Respiratory Rate 16 Setting Ventilator Respiratory Rate 16 Setting Ventilator Respiratory Rate 16 Setting Ventilator Respiratory Rate 18 Setting Ventilator Respiratory Rate 18 Setting Ventilator Respiratory Rate 18 Setting Ventilator Respiratory Rate 18 Setting Ventilator Respiratory Rate 18 Setting Actual Respiratory Rate 16 Actual Respiratory Rate 18 Actual Respiratory Rate 20 Actual Respiratory Rate 18 Actual Respiratory Rate 18 Actual Respiratory Rate 19 Actual Respiratory Rate 19 Actual Respiratory Rate 18 Positive End Expiratory 5 Pressure Positive End Expiratory 5 Pressure Positive End Expiratory 5 Pressure Positive End Expiratory 5 Pressure Positive End Expiratory 5 Pressure Positive End Expiratory 5 Pressure Positive End Expiratory 5 Pressure Positive End Expiratory 5 Pressure Peak Inspiratory Airway 37 Pressure Peak Inspiratory Airway 36 Pressure Peak Inspiratory Airway 33 Pressure Peak Inspiratory Airway 36 Pressure Peak Inspiratory Airway 35 Pressure Peak Inspiratory Airway 41 Pressure Peak Inspiratory Airway 48 Pressure Peak Inspiratory Airway 40 Pressure Results - Laboratory Findings CBC and BMP: 06/29/18 03:40 06/29/18 03:40 ABG ABG pH 7.49 pH Units (7.32-7.45) H 06/29/18 04:20 ABG pCO2 46 mmHg (35-45) H 06/29/18 04:20 ABG pO2 70 mmHg (85-104) L 06/29/18 04:20 ABG O2 Saturation 95 % (95-98) 06/29/18 04:20 PT/INR, D-dimer PT 16.7 Seconds (9.4-12.1) H 06/22/18 03:45 D-Dimer 3465 ng/mLFEU (0-500) H 06/18/18 08:08 Abnormal lab findings: Abnormal lab results WBC 16.4 K/mcL (4.3-11.1) H 06/29/18 03:40 RBC 2.48 M/mcL (4.19-5.50) L 06/29/18 03:40 Hgb 8.0 g/dL (12.9-16.9) L 06/29/18 03:40 Hct 24.8 % (37.5-50.1) L 06/29/18 03:40 RDW 17.4 % (11.5-14.5) H 06/29/18 03:40 Plt Count 103 K/mcL (140-400) L 06/29/18 03:40 Band Neutrophils % 6.0 % (0-4) H 06/27/18 03:00 Metamyelocytes % 2.0 % (0) H 06/27/18 03:00 Myelocytes % 6.0 % (0) H 06/27/18 03:00 Neutrophils # 13.0 K/mcL (1.6-8.9) H 06/29/18 03:40 Nucleated RBCs/100 WBC 0.1 /100 WBC (0) H 06/28/18 03:30 Toxic Granulation Present (Not Present) A 06/18/18 03:05 Toxic Vacuolation Present (Not Present) A 06/22/18 03:45 Platelet Estimate Slight Decrease (Normal) L 06/28/18 03:30 Large Platelets Present (Not Present) A 06/23/18 03:15 Polychromasia 1+ (Not Present) A 06/27/18 03:00 Basophilic Stippling 1+ (Not Present) A 06/26/18 04:00 Anisocytosis 1+ (Not Present) A 06/28/18 03:30 Macrocytosis Present (Not Present) A 06/26/18 04:00 PT 16.7 Seconds (9.4-12.1) H 06/22/18 03:45 APTT 62.8 Seconds (26.0-36.0) H 06/23/18 08:00 Fibrinogen 578 mg/dL (169-393) H 06/18/18 08:08 D-Dimer 3465 ng/mLFEU (0-500) H 06/18/18 08:08 ABG pH 7.49 pH Units (7.32-7.45) H 06/29/18 04:20 ABG pCO2 46 mmHg (35-45) H 06/29/18 04:20 ABG pO2 70 mmHg (85-104) L 06/29/18 04:20 ABG HCO3 35 mEq/L (21-27) H 06/29/18 04:20 ABG Total CO2 36 mEq/L (20-26) H 06/29/18 04:20 ABG Base Excess 10 mEq/L (-2 to 3) H 06/29/18 04:20 Sodium 147 mEq/L (136-145) H 06/29/18 03:40 Chloride 108 mEq/L (98-107) H 06/29/18 03:40 Carbon Dioxide 32 mEq/L (23-29) H 06/29/18 03:40 BUN 24 mg/dL (6-20) H 06/29/18 03:40 Creatinine 1.75 mg/dL (0.70-1.30) H 06/29/18 03:40 Est GFR ( Amer) 50 (> 60) L 06/29/18 03:40 Est GFR (Non-Af Amer) 41 (> 60) L 06/29/18 03:40 Glucose 145 mg/dL (70-105) H 06/29/18 03:40 POC Glucose 143 mg/dL (70-99) H 06/29/18 07:16 Calculated Osmolality 311 (280-300) H 06/29/18 03:40 Calcium 8.5 mg/dL (8.6-10.3) L 06/29/18 03:40 Venous Ioniz Calcium 1.01 mmol/L (1.15-1.35) L 06/24/18 03:13 Phosphorus 2.3 mg/dL (2.7-4.5) L 06/24/18 10:00 Direct Bilirubin 0.4 mg/dL (0.0-0.2) H 06/23/18 03:15 Alkaline Phosphatase 120 Units/L (34-104) H 06/27/18 03:00 Troponin I 0.92 ng/mL (< 0.04) H* 06/17/18 22:33 Serum Total Protein 5.2 g/dL (6.4-8.9) L 06/27/18 03:00 Albumin 2.3 g/dL (3.5-5.7) L 06/27/18 03:00 Albumin/Globulin Ratio 0.8 (1.1-2.2) L 06/27/18 03:00 Amylase 20 Units/L (29-103) L 06/23/18 16:27 Folate 2.5 ng/mL (3.0-16.0) L 06/27/18 11:25 Procalcitonin 107.11 ng/mL (<=0.07) H 06/17/18 16:40 TSH 7.234 mcIU/mL (0.340-5.600) H 06/27/18 11:25 Urine Protein 30 mg/dL (Neg-Trace) H 06/24/18 11:15 Urine Blood Moderate (Negative) H 06/24/18 11:15 Urine Bilirubin Small (Negative) H 06/24/18 11:15 Ur Leukocyte Esterase Moderate (Negative) H 06/24/18 11:15 Urine Microscopic RBC 3-5 per hpf (0-3) H 06/24/18 11:15 Urine Microscopic WBC 50-100 per hpf (0-3) H 06/24/18 11:15 Ur Squamous Epith Cells Many per lpf (None-Few) H 06/24/18 11:15 Vancomycin Trough 18 mcg/mL (5-10) H 06/19/18 08:20 Urine Opiates Screen Positive ng/mL (Fikvgh=992) H 06/18/18 10:37 U Benzodiazepines Scrn Positive ng/mL (Tnqxws=051) H 06/18/18 10:37 HSV I DETECTED (Not Detect) A 06/24/18 15:10 - Clinical Findings Intake & Output: Intake & Output 06/28/18 06/29/18 06/29/18 23:59 07:59 15:59 Intake Total 340 / 340 210 / 210 Output Total 975 / 975 1100 / 1100 850 / 850 Balance -635 / -635 -890 / -890 -850 / -850 Consult Discharge Plan - Plan Referrals: Sheryl Stahl, TOURIST ADVISER [Primary Care Provider] - - Attending Attestation I examined this patient and my medical decision-making was reviewed with the Resident Physician. I agree with the documented findings, disposition and treatment plan as described except to the extent set forth below. Patient seen and examined. Labs, radiology, chart personally reviewed. Agree with resident's history and physical, assessment, plan with following comments: EARLY CHILDHOOD SPECIAL EDUCATOR: Patient is more awake and still not follows commands, overall there is some improvement. Urology has seen the patient and is being treated for suspected herpes encephalitis. Pulmonary: Acceptable oxygenation and ventilation and gradually his making some progress with spontaneous breathing trial attempted today. I am hoping he will improve and avoid any tracheostomy. Cardiovascular: stable GI: Nutrition per dietary and GI prophylaxis per routine Heme: DVT prophylaxis per routine ID: Continue antibiotics and plan to de-escalation Renal; urine out put and renal funtion reviewed. Mild hypernatremia and agree with nephrology. Endorcine: blood glucose is monitored Lines: all lines checked and no evidence of infections Skin: skin care to prevent pressure ulcers per nursing routine care Discussed with the family at the bedside. <Kacy Heath - Last Filed: 06/29/18 13:58> Date of Encounter: 06/29/18 Time of Encounter: 08:34 Assessment and Plan (1) Acute respiratory failure with hypoxemia Current Visit: Yes Status: Acute On ventilator Chest XR from this AM shows ET tube approx 5cm above sanjeev. pH is 7.49 today. Continue to monitor and repeat ABGs if changes in respiratory status. CPAP trial this morning failed after 5 minutes. (2) Septic shock Current Visit: Yes Status: Acute sepsis suspected secondary to karo fungemia. Currently on precedex and fentanyl. Nephrology following for kidney function, has d/c'd CRRT and HD and does not plan to do HD again, although they are adding D5 with free water for hypernatremia. On fluconazole for fungemia, possible from UTI. Acyclovir started 06/25/18 for possible herpes encephalitis. No growth on cultures from or 06/24/18. Brain MRI unremarkable. No acute intracranial abnormalities. CT scan 06/23/18 showed thickening of the bladder wall possibly due to cystitis. Small bilateral pleural effusions with bibasilar pulmonary airspace opacities, thought to be atelectasis. Sludge within the gallbladder. Mildly enlarged anterior mediastrinal lymph node and peripancreatic nodes, may be reactive. Neuro was consulted and his EEG did not show any seizure activity, and his symptoms were thought to be metabolic toxic encephalopathy. They recommended continuing antibiotics and antivirals per ID recommendation. Bowel sounds are absent and abdomen is distended, but soft. KUB yesterday showed normal gas pattern. (3) Systolic heart failure Current Visit: Yes Status: Acute MAP today 83. Continue to monitor and keep MAP>60. Qualifiers: Heart failure chronicity: unspecified Qualified Code(s): I50.20 - Unspecified systolic (congestive) heart failure (4) Hypokalemia Current Visit: Yes Status: Resolved Potassium 3.9 today. Continue to monitor and replete as necessary. (5) ULCILA (acute kidney injury) Current Visit: Yes Status: Acute Creatinine 1.75 today, up from a few days ago when he was on CRRT. Nephrology on board, does not plan to do HD today. They report that he is "dry today" and plan to replete free water in D5 in the hopes of resolving his mild hypernatremia. (6) Hypocalcemia Current Visit: Yes Status: Acute Calcium at 8.5 today. Order ionized calcium to assess calcium status in the setting of low albumin. (7) DVT prophylaxis Current Visit: Yes Status: Acute Heparin 5000 units SQ Q12HR (8) Type 2 diabetes mellitus Current Visit: Yes Status: Chronic Glucose today 145. Was started on high sliding scale of lispro on admission. IV insulin drop. Trickle feeds were started 06/22/18. Continue to monitor, continue IV insulin. Qualifiers: Diabetes mellitus usp insulin use: with terminal operations manager use Diabetes mellitus complication status: with unspecified complications Qualified Code(s) : E11.8 - Type 2 diabetes mellitus with unspecified complications; Z79.4 - shelter (current) use of insulin (9) COPD (chronic obstructive pulmonary disease) Current Visit: Yes Status: Chronic Continue ventilator, adjust as tolerated. Qualifiers: COPD type: emphysema Emphysema type: unspecified Qualified Code(s): J43.9 - Emphysema, unspecified (10) Thrombocytopenia Current Visit: Yes Status: Resolved Platelets slightly increased to 103 today from 101 yesterday. Continue to monitor. 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 (13) Anemia Current Visit: Yes Status: Acute Hg remains stable at 8 Qualifiers: Anemia type: other cause Other causes of anemia: acute posthemorrhagic Qualified Code(s): D62 - Acute posthemorrhagic anemia (14) Encephalopathy Current Visit: Yes Status: Acute Neurology on board, believes his encephalopathy may be due to toxic metabolic causes. Continue antibiotics and reassess mental status as infection clears. 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 Continue to monitor. (16) Hypernatremia Current Visit: Yes Status: Acute Nephrology adding D5 Free water today. Subjective Principal diagnosis: septic shock Interval history: Mr. Mccarthy was seen at bedside this morning. He is sedated and intubated on a ventilator but is arousable and moves all extremities. Currently on precedex and fentanyl. 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 Acyclovir started for possible HSV1 possible encephailitis. Nephrology on board for worsening renal function - was on CRRT and changed to HD, but nephrology states that he is "dry today" with mild hypernatremia at 147. They do not plan to continue HD They plan to add D5 Free water to his regimen and will continue to follow. Nephrology willing to remove HD catheter if we suspect hyperthermia is related to HD catheter. WBC continues to trend downward frm high on 06/19/18. Patient failed CPAP trial after five minutes this morning. Objective PUL Vital signs: Last Vital Signs Temp 101.4 F H 06/29/18 08:01 Pulse 94 06/29/18 07:47 Resp 19 06/29/18 07:00 BP 128/69 06/29/18 07:00 Pulse Ox 95 06/29/18 07:00 General appearance: other (sedated but arousable) Eyes: nonicteric ENT: oropharynx dry Effort: other (intubated and sedated) Auscultation: bilateral: rales Cardiovascular: regular rate and rhythm Gastrointestinal: absent bowel sounds (obese abdomen, no bowel sounds heard), soft Extremities: pink and warm, edema (mild edema of WILLIAM LE) unable to assess due to mental status Ventilator Settings Ventilator Settings: Ventilator Settings, Last 8 Hours Ventilator Tidal Volume 500 Setting Ventilator Tidal Volume 500 Setting Ventilator Tidal Volume 500 Setting Ventilator Tidal Volume 500 Setting Ventilator Tidal Volume 500 Setting Ventilator Tidal Volume 500 Setting Ventilator Tidal Volume 500 Setting Ventilator Tidal Volume 500 Setting Ventilator Tidal Volume 500 Setting Ventilator Respiratory Rate 18 Setting Ventilator Respiratory Rate 18 Setting Ventilator Respiratory Rate 18 Setting Ventilator Respiratory Rate 18 Setting Ventilator Respiratory Rate 18 Setting Ventilator Respiratory Rate 18 Setting Ventilator Respiratory Rate 18 Setting Ventilator Respiratory Rate 18 Setting Ventilator Respiratory Rate 18 Setting Actual Respiratory Rate 18 Actual Respiratory Rate 18 Actual Respiratory Rate 19 Actual Respiratory Rate 19 Actual Respiratory Rate 18 Actual Respiratory Rate 18 Actual Respiratory Rate 21 Actual Respiratory Rate 18 Actual Respiratory Rate 18 Positive End Expiratory 5 Pressure Positive End Expiratory 5 Pressure Positive End Expiratory 5 Pressure Positive End Expiratory 5 Pressure Positive End Expiratory 5 Pressure Positive End Expiratory 5 Pressure Positive End Expiratory 5 Pressure Positive End Expiratory 5 Pressure Positive End Expiratory 5 Pressure Peak Inspiratory Airway 36 Pressure Peak Inspiratory Airway 35 Pressure Peak Inspiratory Airway 41 Pressure Peak Inspiratory Airway 48 Pressure Peak Inspiratory Airway 40 Pressure Peak Inspiratory Airway 39 Pressure Peak Inspiratory Airway 46 Pressure Peak Inspiratory Airway 38 Pressure Peak Inspiratory Airway 35 Pressure Results - Laboratory Findings CBC and BMP: 06/29/18 03:40 06/29/18 03:40 ABG ABG pH 7.49 pH Units (7.32-7.45) H 06/29/18 04:20 ABG pCO2 46 mmHg (35-45) H 06/29/18 04:20 ABG pO2 70 mmHg (85-104) L 06/29/18 04:20 ABG O2 Saturation 95 % (95-98) 06/29/18 04:20 PT/INR, D-dimer PT 16.7 Seconds (9.4-12.1) H 06/22/18 03:45 D-Dimer 3465 ng/mLFEU (0-500) H 06/18/18 08:08 Abnormal lab findings: Abnormal lab results WBC 16.4 K/mcL (4.3-11.1) H 06/29/18 03:40 RBC 2.48 M/mcL (4.19-5.50) L 06/29/18 03:40 Hgb 8.0 g/dL (12.9-16.9) L 06/29/18 03:40 Hct 24.8 % (37.5-50.1) L 06/29/18 03:40 RDW 17.4 % (11.5-14.5) H 06/29/18 03:40 Plt Count 103 K/mcL (140-400) L 06/29/18 03:40 Band Neutrophils % 6.0 % (0-4) H 06/27/18 03:00 Metamyelocytes % 2.0 % (0) H 06/27/18 03:00 Myelocytes % 6.0 % (0) H 06/27/18 03:00 Neutrophils # 13.0 K/mcL (1.6-8.9) H 06/29/18 03:40 Nucleated RBCs/100 WBC 0.1 /100 WBC (0) H 06/28/18 03:30 Toxic Granulation Present (Not Present) A 06/18/18 03:05 Toxic Vacuolation Present (Not Present) A 06/22/18 03:45 Platelet Estimate Slight Decrease (Normal) L 06/28/18 03:30 Large Platelets Present (Not Present) A 06/23/18 03:15 Polychromasia 1+ (Not Present) A 06/27/18 03:00 Basophilic Stippling 1+ (Not Present) A 06/26/18 04:00 Anisocytosis 1+ (Not Present) A 06/28/18 03:30 Macrocytosis Present (Not Present) A 06/26/18 04:00 PT 16.7 Seconds (9.4-12.1) H 06/22/18 03:45 APTT 62.8 Seconds (26.0-36.0) H 06/23/18 08:00 Fibrinogen 578 mg/dL (169-393) H 06/18/18 08:08 D-Dimer 3465 ng/mLFEU (0-500) H 06/18/18 08:08 ABG pH 7.49 pH Units (7.32-7.45) H 06/29/18 04:20 ABG pCO2 46 mmHg (35-45) H 06/29/18 04:20 ABG pO2 70 mmHg (85-104) L 06/29/18 04:20 ABG HCO3 35 mEq/L (21-27) H 06/29/18 04:20 ABG Total CO2 36 mEq/L (20-26) H 06/29/18 04:20 ABG Base Excess 10 mEq/L (-2 to 3) H 06/29/18 04:20 Sodium 147 mEq/L (136-145) H 06/29/18 03:40 Chloride 108 mEq/L (98-107) H 06/29/18 03:40 Carbon Dioxide 32 mEq/L (23-29) H 06/29/18 03:40 BUN 24 mg/dL (6-20) H 06/29/18 03:40 Creatinine 1.75 mg/dL (0.70-1.30) H 06/29/18 03:40 Est GFR ( Amer) 50 (> 60) L 06/29/18 03:40 Est GFR (Non-Af Amer) 41 (> 60) L 06/29/18 03:40 Glucose 145 mg/dL (70-105) H 06/29/18 03:40 POC Glucose 143 mg/dL (70-99) H 06/29/18 07:16 Calculated Osmolality 311 (280-300) H 06/29/18 03:40 Calcium 8.5 mg/dL (8.6-10.3) L 06/29/18 03:40 Venous Ioniz Calcium 1.01 mmol/L (1.15-1.35) L 06/24/18 03:13 Phosphorus 2.3 mg/dL (2.7-4.5) L 06/24/18 10:00 Direct Bilirubin 0.4 mg/dL (0.0-0.2) H 06/23/18 03:15 Alkaline Phosphatase 120 Units/L (34-104) H 06/27/18 03:00 Troponin I 0.92 ng/mL (< 0.04) H* 06/17/18 22:33 Serum Total Protein 5.2 g/dL (6.4-8.9) L 06/27/18 03:00 Albumin 2.3 g/dL (3.5-5.7) L 06/27/18 03:00 Albumin/Globulin Ratio 0.8 (1.1-2.2) L 06/27/18 03:00 Amylase 20 Units/L (29-103) L 06/23/18 16:27 Folate 2.5 ng/mL (3.0-16.0) L 06/27/18 11:25 Procalcitonin 107.11 ng/mL (<=0.07) H 06/17/18 16:40 TSH 7.234 mcIU/mL (0.340-5.600) H 06/27/18 11:25 Urine Protein 30 mg/dL (Neg-Trace) H 06/24/18 11:15 Urine Blood Moderate (Negative) H 06/24/18 11:15 Urine Bilirubin Small (Negative) H 06/24/18 11:15 Ur Leukocyte Esterase Moderate (Negative) H 06/24/18 11:15 Urine Microscopic RBC 3-5 per hpf (0-3) H 06/24/18 11:15 Urine Microscopic WBC 50-100 per hpf (0-3) H 06/24/18 11:15 Ur Squamous Epith Cells Many per lpf (None-Few) H 06/24/18 11:15 Vancomycin Trough 18 mcg/mL (5-10) H 06/19/18 08:20 Urine Opiates Screen Positive ng/mL (Kcdwgm=920) H 06/18/18 10:37 U Benzodiazepines Scrn Positive ng/mL (Ajznhu=343) H 06/18/18 10:37 HSV I DETECTED (Not Detect) A 06/24/18 15:10 - Clinical Findings Intake & Output: Intake & Output 06/28/18 06/29/18 06/29/18 23:59 07:59 15:59 Intake Total 340 / 340 210 / 210 Output Total 975 / 975 1100 / 1100 850 / 850 Balance -635 / -635 -890 / -890 -850 / -850 - VTE Documentation of Mechanical Device: Intermittent pneumatic compression device
--- NOTE | 2018-06-29 09:12 | Nephrology Progress Note ---
Date of Encounter: 06/29/18 Time of Encounter: 09:25 - Assessment and Plan (1) LUCILA (acute kidney injury) Current Visit: Yes Status: Acute Polyuric LUCILA, which suggests he's in the polyuric phase of renal recovery. He is also no mildly hypernatremic. No indication for HOLISTIC HEALTH PRACTITIONER today; however, his hypernatremia may worsen with the inc'd UOP, so I recommend more Free water with TF or D5W IVF at about 50mL/hr. Discussed with the ICU. I've added the D5W. Continue to follow a renal protective strategy as able: dose renally cleared Rx by [facility], strict I/Os, daily weights and avoidance of nephrotoxins. Will follow with you. (2) Hypernatremia Current Visit: Yes Status: Acute See above. (3) Acute respiratory failure with hypoxemia Current Visit: Yes Status: Acute Per critical care team. (4) Type 2 diabetes mellitus Current Visit: Yes Status: Chronic Hx of DM, and Obesity, which are underlying risk factors for renal dysfunction. Qualifiers: Diabetes mellitus shelter insulin use: with final inspector shuttle use Diabetes mellitus complication status: with unspecified complications Qualified Code(s) : E11.8 - Type 2 diabetes mellitus with unspecified complications; Z79.4 - catcher plug (current) use of insulin (5) Anemia Current Visit: Yes Status: Acute Transfusion parameters as per primary Qualifiers: Anemia type: other cause Other causes of anemia: acute posthemorrhagic Qualified Code(s): D62 - Acute posthemorrhagic anemia Subjective Principal diagnosis: septic shock Interval history: Pt was seen/examined in his ICU room. He remains intubated, which limits subjective history. Objective - Vital Signs Vital signs: Vital Signs Temp Pulse Resp BP Pulse Ox 06/29/18 08:01 101.4 F H 06/29/18 08:00 94 16 155/96 92 06/29/18 07:47 94 06/29/18 07:00 101.4 F H 92 18 128/69 95 06/29/18 06:00 90 18 137/73 94 06/29/18 05:26 18 93 06/29/18 05:00 93 19 133/73 94 06/29/18 04:02 100.3 F H 06/29/18 04:00 83 18 134/75 94 06/29/18 03:00 86 18 125/73 92 06/29/18 02:42 18 93 06/29/18 02:00 87 18 123/68 92 06/29/18 01:00 85 18 132/77 95 06/29/18 00:04 18 95 06/29/18 00:00 99.2 F 75 18 125/70 95 06/28/18 23:00 82 18 120/76 95 06/28/18 22:00 86 18 126/70 95 06/28/18 21:37 19 96 06/28/18 21:00 86 18 124/68 96 06/28/18 20:00 87 18 121/64 95 06/28/18 19:41 18 95 06/28/18 19:26 100.4 F H 06/28/18 19:00 85 18 113/64 95 06/28/18 18:00 90 19 129/78 96 06/28/18 17:04 19 96 06/28/18 17:00 90 25 111/75 93 06/28/18 16:00 84 28 116/69 92 06/28/18 15:52 100.7 F H 06/28/18 15:09 19 101/63 95 06/28/18 15:00 100.7 F H 84 20 101/63 94 06/28/18 14:00 83 20 92/51 95 06/28/18 13:35 18 132/77 98 06/28/18 13:14 100.0 F H 26 132/77 06/28/18 13:00 87 18 120/65 98 06/28/18 12:45 126/73 06/28/18 12:30 110/59 06/28/18 12:18 100.4 F H 06/28/18 12:15 134/55 06/28/18 12:00 100.4 F H 114 28 90/41 89 06/28/18 11:45 135/68 06/28/18 11:30 131/68 06/28/18 11:15 124/69 06/28/18 11:00 100.4 F H 80 24 137/79 94 06/28/18 10:45 115/63 06/28/18 10:44 20 115/63 89 06/28/18 10:30 127/66 06/28/18 10:25 83/44 06/28/18 10:15 105/56 06/28/18 10:00 100.4 F H 83 26 106/55 94 06/28/18 09:21 99.4 F 06/28/18 09:15 18 104/53 94 Intake and Output 06/28/18 06/29/18 06/29/18 23:59 07:59 15:59 Intake Total 340 / 340 210 / 210 Output Total 975 / 975 1100 / 1100 850 / 850 Balance -635 / -635 -890 / -890 -850 / -850 Intake: IV Fluids 340 / 340 210 / 210 PRECEDEX Premix 400 mcg In 100 100 / 100 100 / 100 ml @ 0.2 MCG/KG/HR 6.65 mls/hr IVC .Q15H3M NADIA Rx#:[id number] FentaNYL (PF) 2,500 MCG In 30 / 30 Empty Bag 1 Each @ 50 MCG/HR 1 mls/hr IVC CONT NADIA Rx#: [id number] Zovirax 500 MG In Dextrose 5% 110 / 110 110 / 110 100 ML @ 110 mls/hr IVPB Q12H NADIA Rx#:[id number] Diflucan Premix 200 MG/100 ML 100 / 100 200 mg In 100 ml @ 100 mls/hr IVPB Q24H NADIA Rx#:[id number] Output: Gastric Tube Lavage Amount 100 / 100 Oral 100 / 100 Catheter 975 / 975 1000 / 1000 850 / 850 Gastric Drainage 0 / 0 0 / 0 Other: Blood Glucose* 128 150 143 - General Appearance Exam: General appearance: Present: well-developed, appears started age, obese, sedated on ventilator, intubated EENT: Present: ATNC, PERRL, mucous membranes moist Neck: Present: supple Respiratory: Present: course breath sounds, rhonchi Cardiology: Present: edema, regular rate, regular rhythm, normal S1, normal S2 Dialysis Vascular Access: Venous Catheter (RIJ temporary HD catheter exit site appeared C/D/I) Gastrointestinal: Present: normoactive bowel sounds, no tenderness, no guarding , obese Integumentary: Present: warm and dry Neurologic: Present: no asterixis, confused, disoriented Musculoskeletal: Present: no clubbing - Lab 06/29/18 03:40 06/29/18 03:40 Most recent lab results ABG pH 7.49 pH Units (7.32-7.45) H 06/29/18 04:20 ABG pCO2 46 mmHg (35-45) H 06/29/18 04:20 ABG pO2 70 mmHg (85-104) L 06/29/18 04:20 ABG HCO3 35 mEq/L (21-27) H 06/29/18 04:20 ABG O2 Saturation 95 % (95-98) 06/29/18 04:20 Calcium 8.5 mg/dL (8.6-10.3) L 06/29/18 03:40 Phosphorus 2.3 mg/dL (2.7-4.5) L 06/24/18 10:00 Magnesium 2.5 mg/dL (1.6-2.6) 06/24/18 03:00 Urine Sodium 128.8 mEq/L 06/17/18 18:15 - VTE Documentation of Mechanical Device: Intermittent pneumatic compression device Consult Discharge Plan - Plan Referrals: Sheryl Stahl, [employer] [Primary Care Provider] -
[2018-06-29] MEDS: D5% in Water 1,000 ML IVC SCH (13:52)
[2018-06-29] MEDS: Fluconazole 200 MG/100 ML IVPB SCH (17:16)
[2018-06-29] MEDS: Scopolamine Patch 1.5 MG PATCH.TD72 TD SCH (17:16)
[2018-06-29] MEDS: FentaNYL (PF) 2,500 MCG in EMPTY BAG 1 EACH IVC SCH (18:36)
[2018-06-29] MEDS: Norepinephrine 4 MG in D5% in Water 250 ML IVC SCH (19:36)
[2018-06-30] MEDS: Insulin LISPRO 300 UNITS/3 ML VIAL SQ SCH ×7 (00:16→23:08)
[2018-06-30] MEDS: Artificial Tears SOLN 15 ML BOTTLE BOTH EYES SCH ×7 (00:16→23:09)
[2018-06-30] MEDS: Dexmedetomidine HCl 400 MCG/100 ML MLS IVC SCH ×5 (00:51→20:04)
[2018-06-30] MEDS: Acyclovir 500 MG in D5% in Water 100 ML IVPB SCH ×2 (02:14→14:35)
[2018-06-30] MEDS: FentaNYL (PF) 2,500 MCG in EMPTY BAG 1 EACH IVC SCH ×2 (02:57→21:06)
[2018-06-30 04:09] LABS: VBG Ionized Calcium 1.14 mmol/L (1.15-1.35)
[2018-06-30 04:13] LABS: Basophils % 0.2 %; Eosinophils # 0.1 K/mcL (0.0-0.6); Eosinophils % 0.9 %; Hematocrit 24.6 % (37.5-50.1); Hemoglobin 7.7 g/dL (12.9-16.9); Lymphocytes # 1.6 K/mcL (0.6-4.6); Lymphocytes % 10.2 %; Mean Corpuscular HGB Conc 31.3 g/dL (31.6-35.5); Mean Corpuscular Hemoglobin 31.6 pg (28.0-33.3); Mean Corpuscular Volume 100.8 fL (83.0-100.0); Mean Platelet Volume 10.6 fL (9.4-12.4); Monocytes # 0.8 K/mcL (0.0-1.3); Monocytes % 4.9 %; Platelet Count 102 K/mcL (140-400); Red Blood Count 2.44 M/mcL (4.19-5.50); Red Cell Distribution Width 17.5 % (11.5-14.5); Segmented Neutrophils % 82.8 %
[2018-06-30 04:27] LABS: Magnesium 2.3 mg/dL (1.6-2.6); Phosphorous 5.9 mg/dL (2.7-4.5)
[2018-06-30 05:00] LABS: Albumin 2.5 g/dL (3.5-5.7); Albumin/Globulin Ratio 0.7 (1.1-2.2); Bilirubin,Total 0.5 mg/dL (0.3-1.0); Calcium 8.5 mg/dL (8.6-10.3); Globulin 3.5 g/dL (2.4-3.5); Potassium 3.7 mEq/L (3.5-5.1)
[2018-06-30 05:42] LABS: ABG Base Excess 10 mEq/L (-2 to 3); ABG HCO3 35 mEq/L (21-27); ABG Oxygen Saturation 90 % (95-98); ABG PCO2 50 mmHg (35-45); ABG PH 7.45 pH Units (7.32-7.45); ABG PO2 57 mmHg (85-104); ABG TCO2 37 mEq/L (20-26); Blood Gas Modality PRVC; Blood Gas PEEP 5 cm H2O; Blood Gas Respiration Rate 16; Blood Gas VT 500 cc
--- NOTE | 2018-06-30 07:06 | Pulmonology Consult Note ---
<Kacy Heath Eladio - Last Filed: 06/30/18 07:06> Date of Encounter: 06/30/18 Time of Encounter: 07:06 Assessment and Plan (1) Acute respiratory failure with hypoxemia Current Visit: Yes Status: Acute (2) Septic shock Current Visit: Yes Status: Acute (3) Systolic heart failure Current Visit: Yes Status: Acute Qualifiers: Heart failure chronicity: unspecified Qualified Code(s): I50.20 - Unspecified systolic (congestive) heart failure (4) Hypokalemia Current Visit: Yes Status: Resolved (5) LUCILA (acute kidney injury) Current Visit: Yes Status: Acute (6) Hypocalcemia Current Visit: Yes Status: Acute (7) DVT prophylaxis Current Visit: Yes Status: Acute (8) Type 2 diabetes mellitus Current Visit: Yes Status: Chronic Qualifiers: Diabetes mellitus [facility] insulin use: with intermediate school teacher use Diabetes mellitus complication status: with unspecified complications Qualified Code(s) : E11.8 - Type 2 diabetes mellitus with unspecified complications; Z79.4 - [facility] (current) use of insulin (9) COPD (chronic obstructive pulmonary disease) Current Visit: Yes Status: Chronic Qualifiers: COPD type: emphysema Emphysema type: unspecified Qualified Code(s): J43.9 - Emphysema, unspecified (10) Thrombocytopenia Current Visit: Yes Status: Resolved (11) UTI (urinary tract infection) Current Visit: Yes Status: Acute Qualifiers: Urinary tract infection type: site unspecified Hematuria presence: without hematuria Qualified Code(s): N39.0 - Urinary tract infection, site not specified (12) HIT (heparin-induced thrombocytopenia) Current Visit: Yes Status: Suspected (13) Anemia Current Visit: Yes Status: Acute Qualifiers: Anemia type: other cause Other causes of anemia: acute posthemorrhagic Qualified Code(s): D62 - Acute posthemorrhagic anemia (14) Encephalopathy Current Visit: Yes Status: Acute (15) Oral lesion Current Visit: Yes Status: Acute (16) Hypernatremia Current Visit: Yes Status: Acute Past Med Surg Social Fam HX - Past Medical History Medical history: asthma, COPD, GERD, hypertension, other Additional medical history: back problems Psychiatric history: anxiety, depression - Social History Smoking Status: Former smoker Smokeless Tobacco Status: No Alcohol use: none Drug use: none Medications and Allergies Ipratropium/Albuterol Sulfate [Combivent Respimat Inhal [place]] 4 gm IH DAILY [History] Albuterol Sulfate [Proair Hfa] 2 puff IH Q4HR PRN 06/17/18 [History] Aspirin Enteric Coated [Aspirin EC] 81 mg PO DAILY 06/17/18 [History] Carvedilol [Carvedilol] 3.125 mg PO BID 06/17/18 [History] Citalopram [CeleXA] 20 mg PO DAILY 06/17/18 [History] Fluticasone Propionate Nasal [Flonase] 1 puff NS DAILY 06/17/18 [History] Fluticasone/Vilanterol [Breo Ellipta 200-25 Mcg INH] 1 each IH DAILY 06/17/18 [ History] Furosemide [Lasix] 40 mg PO BID 06/17/18 [History] Gabapentin [Neurontin] 800 mg PO QID 06/17/18 [History] Insulin Glargine,Hum.rec.anlog [Basaglar Kwikpen U-100] 40 unit SQ BID 06/17/18 [History] Losartan/Hydrochlorothiazide [Losartan-Hctz 100-25 mg Tab] 1 tab PO DAILY [History] Metoprolol [Lopressor] 25 mg PO BID 06/17/18 [History] Montelukast [Singulair] 10 mg PO HS 06/17/18 [History] OxyCODONE/APAP 10/325 [Percocet 10/325 MG] 1 tab PO TID 06/17/18 [History] Pantoprazole Sodium 40 mg PO DAILY 06/17/18 [History] Potassium Chloride [K-Tab ER] 20 meq PO DAILY 06/17/18 [History] Pravastatin Sodium [Pravachol] 40 mg PO DAILY 06/17/18 [History] 3 Allergy/AdvReac Type Severity Reaction Status Date / Time Sulfa (Sulfonamide Allergy Rash Verified 01/28/16 21:39 Antibiotics) All Systems: The remainder of the systems were reviewed and are negative Physical Examination Vital Signs: Vital Signs, Last 4 Hours Temp Pulse Resp BP Pulse Ox 06/30/18 06:00 70 16 110/67 93 06/30/18 05:00 71 16 122/73 92 06/30/18 04:35 98.5 F 06/30/18 04:00 66 16 126/74 93 Ventilator Settings Ventilator Settings: Ventilator Settings, Last 8 Hours Ventilator Tidal Volume 500 Setting Ventilator Tidal Volume 500 Setting Ventilator Tidal Volume 500 Setting Ventilator Tidal Volume 500 Setting Ventilator Tidal Volume 500 Setting Ventilator Tidal Volume 500 Setting Ventilator Tidal Volume 500 Setting Ventilator Tidal Volume 500 Setting Ventilator Tidal Volume 500 Setting Ventilator Respiratory Rate 16 Setting Ventilator Respiratory Rate 16 Setting Ventilator Respiratory Rate 16 Setting Ventilator Respiratory Rate 16 Setting Ventilator Respiratory Rate 16 Setting Ventilator Respiratory Rate 16 Setting Ventilator Respiratory Rate 16 Setting Ventilator Respiratory Rate 16 Setting Ventilator Respiratory Rate 16 Setting Actual Respiratory Rate 16 Actual Respiratory Rate 16 Actual Respiratory Rate 16 Actual Respiratory Rate 16 Actual Respiratory Rate 16 Actual Respiratory Rate 16 Actual Respiratory Rate 16 Actual Respiratory Rate 16 Positive End Expiratory 5 Pressure Positive End Expiratory 5 Pressure Positive End Expiratory 5 Pressure Positive End Expiratory 5 Pressure Positive End Expiratory 5 Pressure Positive End Expiratory 5 Pressure Positive End Expiratory 5 Pressure Positive End Expiratory 5 Pressure Positive End Expiratory 5 Pressure Peak Inspiratory Airway 30 Pressure Peak Inspiratory Airway 30 Pressure Peak Inspiratory Airway 32 Pressure Peak Inspiratory Airway 32 Pressure Peak Inspiratory Airway 34 Pressure Peak Inspiratory Airway 31 Pressure Peak Inspiratory Airway 29 Pressure Peak Inspiratory Airway 29 Pressure Results - Laboratory Findings CBC and BMP: 06/30/18 03:39 06/30/18 03:39 ABG ABG pH 7.45 pH Units (7.32-7.45) 06/30/18 05:39 ABG pCO2 50 mmHg (35-45) H 06/30/18 05:39 ABG pO2 57 mmHg (85-104) L 06/30/18 05:39 ABG O2 Saturation 90 % (95-98) L 06/30/18 05:39 PT/INR, D-dimer PT 16.7 Seconds (9.4-12.1) H 06/22/18 03:45 D-Dimer 3465 ng/mLFEU (0-500) H 06/18/18 08:08 Abnormal lab findings: Abnormal lab results WBC 15.7 K/mcL (4.3-11.1) H 06/30/18 03:39 RBC 2.44 M/mcL (4.19-5.50) L 06/30/18 03:39 Hgb 7.7 g/dL (12.9-16.9) L 06/30/18 03:39 Hct 24.6 % (37.5-50.1) L 06/30/18 03:39 MCV 100.8 fL (83.0-100.0) H 06/30/18 03:39 MCHC 31.3 g/dL (31.6-35.5) L 06/30/18 03:39 RDW 17.5 % (11.5-14.5) H 06/30/18 03:39 Plt Count 102 K/mcL (140-400) L 06/30/18 03:39 Band Neutrophils % 6.0 % (0-4) H 06/27/18 03:00 Metamyelocytes % 2.0 % (0) H 06/27/18 03:00 Myelocytes % 6.0 % (0) H 06/27/18 03:00 Neutrophils # 13.0 K/mcL (1.6-8.9) H 06/30/18 03:39 Nucleated RBCs/100 WBC 0.1 /100 WBC (0) H 06/28/18 03:30 Toxic Granulation Present (Not Present) A 06/18/18 03:05 Toxic Vacuolation Present (Not Present) A 06/22/18 03:45 Platelet Estimate Slight Decrease (Normal) L 06/28/18 03:30 Large Platelets Present (Not Present) A 06/23/18 03:15 Polychromasia 1+ (Not Present) A 06/27/18 03:00 Basophilic Stippling 1+ (Not Present) A 06/26/18 04:00 Anisocytosis 1+ (Not Present) A 06/28/18 03:30 Macrocytosis Present (Not Present) A 06/26/18 04:00 PT 16.7 Seconds (9.4-12.1) H 06/22/18 03:45 APTT 62.8 Seconds (26.0-36.0) H 06/23/18 08:00 Fibrinogen 578 mg/dL (169-393) H 06/18/18 08:08 D-Dimer 3465 ng/mLFEU (0-500) H 06/18/18 08:08 ABG pCO2 50 mmHg (35-45) H 06/30/18 05:39 ABG pO2 57 mmHg (85-104) L 06/30/18 05:39 ABG HCO3 35 mEq/L (21-27) H 06/30/18 05:39 ABG Total CO2 37 mEq/L (20-26) H 06/30/18 05:39 ABG O2 Saturation 90 % (95-98) L 06/30/18 05:39 ABG Base Excess 10 mEq/L (-2 to 3) H 06/30/18 05:39 Sodium 156 mEq/L (136-145) H D 06/30/18 03:39 Chloride 115 mEq/L (98-107) H 06/30/18 03:39 Carbon Dioxide 34 mEq/L (23-29) H 06/30/18 03:39 BUN 31 mg/dL (6-20) H 06/30/18 03:39 Creatinine 2.38 mg/dL (0.70-1.30) H 06/30/18 03:39 Est GFR ( Amer) 35 (> 60) L 06/30/18 03:39 Est GFR (Non-Af Amer) 29 (> 60) L 06/30/18 03:39 Glucose 191 mg/dL (70-105) H 06/30/18 03:39 POC Glucose 189 mg/dL (70-99) H 06/30/18 03:39 Calculated Osmolality 334 (280-300) H 06/30/18 03:39 Calcium 8.5 mg/dL (8.6-10.3) L 06/30/18 03:39 Venous Ioniz Calcium 1.14 mmol/L (1.15-1.35) L 06/30/18 04:06 Phosphorus 5.9 mg/dL (2.7-4.5) H 06/30/18 03:39 Direct Bilirubin 0.4 mg/dL (0.0-0.2) H 06/23/18 03:15 AST 49 Units/L (13-39) H 06/30/18 03:39 Troponin I 0.92 ng/mL (< 0.04) H* 06/17/18 22:33 Serum Total Protein 6.0 g/dL (6.4-8.9) L 06/30/18 03:39 Albumin 2.5 g/dL (3.5-5.7) L 06/30/18 03:39 Albumin/Globulin Ratio 0.7 (1.1-2.2) L 06/30/18 03:39 Amylase 20 Units/L (29-103) L 06/23/18 16:27 Folate 2.5 ng/mL (3.0-16.0) L 06/27/18 11:25 Procalcitonin 107.11 ng/mL (<=0.07) H 06/17/18 16:40 TSH 7.234 mcIU/mL (0.340-5.600) H 06/27/18 11:25 Urine Protein 30 mg/dL (Neg-Trace) H 06/24/18 11:15 Urine Blood Moderate (Negative) H 06/24/18 11:15 Urine Bilirubin Small (Negative) H 06/24/18 11:15 Ur Leukocyte Esterase Moderate (Negative) H 06/24/18 11:15 Urine Microscopic RBC 3-5 per hpf (0-3) H 06/24/18 11:15 Urine Microscopic WBC 50-100 per hpf (0-3) H 06/24/18 11:15 Ur Squamous Epith Cells Many per lpf (None-Few) H 06/24/18 11:15 Vancomycin Trough 18 mcg/mL (5-10) H 06/19/18 08:20 Urine Opiates Screen Positive ng/mL (Jrdvvx=215) H 06/18/18 10:37 U Benzodiazepines Scrn Positive ng/mL (Iebqac=646) H 06/18/18 10:37 HSV I DETECTED (Not Detect) A 06/24/18 15:10 - Microbiology Findings Microbiology Findings: Microbiology, Last 48 Hours 06/24/18 11:35 Blood Culture - Final Peripheral Venipuncture No growth. Final report. 06/24/18 11:35 Blood Culture - Final Peripheral Venipuncture No growth. Final report. - Clinical Findings Intake & Output: Intake & Output 06/29/18 06/29/18 06/30/18 15:59 23:59 07:59 Intake Total 200 / 200 364 / 364 356 / 356 Output Total 1800 / 1800 1800 / 1800 1550 / 1550 Balance -1600 / -1600 -1436 / -1436 -1194 / -1194 Weight 111.7 kg Consult Discharge Plan - Plan Referrals: Sheryl Stahl, IT QUALITY ANALYST [Primary Care Provider] - <Maximo Mcdaniel - Last Filed: 06/30/18 10:35> Date of Encounter: 06/30/18 All Systems: The remainder of the systems were reviewed and are negative Physical Examination Vital Signs: Vital Signs, Last 4 Hours Temp Pulse Resp BP Pulse Ox 06/30/18 06:00 70 16 110/67 93 06/30/18 05:00 71 16 122/73 92 06/30/18 04:35 98.5 F 06/30/18 04:00 66 16 126/74 93 Ventilator Settings Ventilator Settings: Ventilator Settings, Last 8 Hours Ventilator Tidal Volume 500 Setting Ventilator Tidal Volume 500 Setting Ventilator Tidal Volume 500 Setting Ventilator Tidal Volume 500 Setting Ventilator Tidal Volume 500 Setting Ventilator Tidal Volume 500 Setting Ventilator Tidal Volume 500 Setting Ventilator Tidal Volume 500 Setting Ventilator Tidal Volume 500 Setting Ventilator Respiratory Rate 16 Setting Ventilator Respiratory Rate 16 Setting Ventilator Respiratory Rate 16 Setting Ventilator Respiratory Rate 16 Setting Ventilator Respiratory Rate 16 Setting Ventilator Respiratory Rate 16 Setting Ventilator Respiratory Rate 16 Setting Ventilator Respiratory Rate 16 Setting Ventilator Respiratory Rate 16 Setting Actual Respiratory Rate 16 Actual Respiratory Rate 16 Actual Respiratory Rate 16 Actual Respiratory Rate 16 Actual Respiratory Rate 16 Actual Respiratory Rate 16 Actual Respiratory Rate 16 Actual Respiratory Rate 16 Positive End Expiratory 5 Pressure Positive End Expiratory 5 Pressure Positive End Expiratory 5 Pressure Positive End Expiratory 5 Pressure Positive End Expiratory 5 Pressure Positive End Expiratory 5 Pressure Positive End Expiratory 5 Pressure Positive End Expiratory 5 Pressure Positive End Expiratory 5 Pressure Peak Inspiratory Airway 30 Pressure Peak Inspiratory Airway 30 Pressure Peak Inspiratory Airway 32 Pressure Peak Inspiratory Airway 32 Pressure Peak Inspiratory Airway 34 Pressure Peak Inspiratory Airway 31 Pressure Peak Inspiratory Airway 29 Pressure Peak Inspiratory Airway 29 Pressure Results - Laboratory Findings CBC and BMP: 06/30/18 03:39 06/30/18 09:00 ABG ABG pH 7.45 pH Units (7.32-7.45) 06/30/18 05:39 ABG pCO2 50 mmHg (35-45) H 06/30/18 05:39 ABG pO2 57 mmHg (85-104) L 06/30/18 05:39 ABG O2 Saturation 90 % (95-98) L 06/30/18 05:39 PT/INR, D-dimer PT 16.7 Seconds (9.4-12.1) H 06/22/18 03:45 D-Dimer 3465 ng/mLFEU (0-500) H 06/18/18 08:08 Abnormal lab findings: Abnormal lab results WBC 15.7 K/mcL (4.3-11.1) H 06/30/18 03:39 RBC 2.44 M/mcL (4.19-5.50) L 06/30/18 03:39 Hgb 7.7 g/dL (12.9-16.9) L 06/30/18 03:39 Hct 24.6 % (37.5-50.1) L 06/30/18 03:39 MCV 100.8 fL (83.0-100.0) H 06/30/18 03:39 MCHC 31.3 g/dL (31.6-35.5) L 06/30/18 03:39 RDW 17.5 % (11.5-14.5) H 06/30/18 03:39 Plt Count 102 K/mcL (140-400) L 06/30/18 03:39 Band Neutrophils % 6.0 % (0-4) H 06/27/18 03:00 Metamyelocytes % 2.0 % (0) H 06/27/18 03:00 Myelocytes % 6.0 % (0) H 06/27/18 03:00 Neutrophils # 13.0 K/mcL (1.6-8.9) H 06/30/18 03:39 Nucleated RBCs/100 WBC 0.1 /100 WBC (0) H 06/28/18 03:30 Toxic Granulation Present (Not Present) A 06/18/18 03:05 Toxic Vacuolation Present (Not Present) A 06/22/18 03:45 Platelet Estimate Slight Decrease (Normal) L 06/28/18 03:30 Large Platelets Present (Not Present) A 06/23/18 03:15 Polychromasia 1+ (Not Present) A 06/27/18 03:00 Basophilic Stippling 1+ (Not Present) A 06/26/18 04:00 Anisocytosis 1+ (Not Present) A 06/28/18 03:30 Macrocytosis Present (Not Present) A 06/26/18 04:00 PT 16.7 Seconds (9.4-12.1) H 06/22/18 03:45 APTT 62.8 Seconds (26.0-36.0) H 06/23/18 08:00 Fibrinogen 578 mg/dL (169-393) H 06/18/18 08:08 D-Dimer 3465 ng/mLFEU (0-500) H 06/18/18 08:08 ABG pCO2 50 mmHg (35-45) H 06/30/18 05:39 ABG pO2 57 mmHg (85-104) L 06/30/18 05:39 ABG HCO3 35 mEq/L (21-27) H 06/30/18 05:39 ABG Total CO2 37 mEq/L (20-26) H 06/30/18 05:39 ABG O2 Saturation 90 % (95-98) L 06/30/18 05:39 ABG Base Excess 10 mEq/L (-2 to 3) H 06/30/18 05:39 Sodium 156 mEq/L (136-145) H D 06/30/18 03:39 Chloride 115 mEq/L (98-107) H 06/30/18 03:39 Carbon Dioxide 34 mEq/L (23-29) H 06/30/18 03:39 BUN 31 mg/dL (6-20) H 06/30/18 03:39 Creatinine 2.38 mg/dL (0.70-1.30) H 06/30/18 03:39 Est GFR ( Amer) 35 (> 60) L 06/30/18 03:39 Est GFR (Non-Af Amer) 29 (> 60) L 06/30/18 03:39 Glucose 191 mg/dL (70-105) H 06/30/18 03:39 POC Glucose 151 mg/dL (70-99) H 06/30/18 07:15 Calculated Osmolality 334 (280-300) H 06/30/18 03:39 Calcium 8.5 mg/dL (8.6-10.3) L 06/30/18 03:39 Venous Ioniz Calcium 1.14 mmol/L (1.15-1.35) L 06/30/18 04:06 Phosphorus 5.9 mg/dL (2.7-4.5) H 06/30/18 03:39 Direct Bilirubin 0.4 mg/dL (0.0-0.2) H 06/23/18 03:15 AST 49 Units/L (13-39) H 06/30/18 03:39 Troponin I 0.92 ng/mL (< 0.04) H* 06/17/18 22:33 Serum Total Protein 6.0 g/dL (6.4-8.9) L 06/30/18 03:39 Albumin 2.5 g/dL (3.5-5.7) L 06/30/18 03:39 Albumin/Globulin Ratio 0.7 (1.1-2.2) L 06/30/18 03:39 Amylase 20 Units/L (29-103) L 06/23/18 16:27 Folate 2.5 ng/mL (3.0-16.0) L 06/27/18 11:25 Procalcitonin 107.11 ng/mL (<=0.07) H 06/17/18 16:40 TSH 7.234 mcIU/mL (0.340-5.600) H 06/27/18 11:25 Urine Protein 30 mg/dL (Neg-Trace) H 06/24/18 11:15 Urine Blood Moderate (Negative) H 06/24/18 11:15 Urine Bilirubin Small (Negative) H 06/24/18 11:15 Ur Leukocyte Esterase Moderate (Negative) H 06/24/18 11:15 Urine Microscopic RBC 3-5 per hpf (0-3) H 06/24/18 11:15 Urine Microscopic WBC 50-100 per hpf (0-3) H 06/24/18 11:15 Ur Squamous Epith Cells Many per lpf (None-Few) H 06/24/18 11:15 Vancomycin Trough 18 mcg/mL (5-10) H 06/19/18 08:20 Urine Opiates Screen Positive ng/mL (Udpuqz=508) H 06/18/18 10:37 U Benzodiazepines Scrn Positive ng/mL (Xcbkjd=771) H 06/18/18 10:37 HSV I DETECTED (Not Detect) A 06/24/18 15:10 - Microbiology Findings Microbiology Findings: Microbiology, Last 48 Hours 06/24/18 11:35 Blood Culture - Final Peripheral Venipuncture No growth. Final report. 06/24/18 11:35 Blood Culture - Final Peripheral Venipuncture No growth. Final report. - Clinical Findings Intake & Output: Intake & Output 06/29/18 06/29/18 06/30/18 15:59 23:59 07:59 Intake Total 200 / 200 364 / 364 356 / 356 Output Total 1800 / 1800 1800 / 1800 1550 / 1550 Balance -1600 / -1600 -1436 / -1436 -1194 / -1194 Weight 111.7 kg - Attending Attestation I examined this patient and my medical decision-making was reviewed with the Resident Physician. I agree with the documented findings, disposition and treatment plan as described except to the extent set forth below. We independently had [id number] contact with the patient Patient seen and examined at bedside Labs, radiology, chart personally reviewed. Management was reviewed during multidisciplinary critical care rounds. HUMAN RESOURCES EXECUTIVE: Remains delirious but able to follow simple commands.. Cont PRecedex and low dose infusion on Fentanyl for sedation while on vent Pulm: Hypoxic/hypercapnic respiratory failure on vent. SBT today marked by Apnea. retry tomorrow. Cards: BP stable. off pressors. GI:GI prophylaxis given Nutrition: Cont Enteral Nutrition. Renal: Lucila improving. Marked by Hyponatremia and worsenign Cre today likely s/t to post ATN disuresis. Free H20 and etnral H20 given. Neprhology following. UOP Monitored, Cont to Trend sCr and monitor Electrolytes. ID: Cont ABx per ID recs for fungemia and HSV Heme/Onc: DVT prophylaxis given. H/H/Plts monitored. Endo: Glucose Monitored Integ/MSK: Skin Care per routine ICU Nursing Protocol to prevent ulcers. Lines: All lines examined without evidence of infection : Dispo: Remain in ICU CODE: Full Code.
[2018-06-30] MEDS: Chlorhexidine Rinse 15 ML MOUTHWASH MM SCH ×2 (07:54→19:29)
[2018-06-30] MEDS: Pantoprazole 40 MG VIAL IVP SCH (07:55)
[2018-06-30] MEDS: Nystatin SUSP 5 ML UD.LIQ PO SCH ×4 (07:55→19:29)
--- NOTE | 2018-06-30 08:38 | Nephrology Progress Note ---
Date of Encounter: 06/30/18 Time of Encounter: 08:30 - Assessment and Plan (1) LUCILA (acute kidney injury) Current Visit: Yes Status: Acute Polyuric LUCILA, last hemodialysis on Saturday In the past 24 hours the patient has put out over 5 L of urine His labs demonstrate significant free water deficit of 7.7 L with hypernatremia of 156, and creatinine 2.38 Suspect that this is most likely due to polyuric phase of renal recovery, however consider central or drug induced diabetes insipidus as a differential as well Plan -Hold on hemodialysis today, consider tomorrow if necessary -Recommend increasing D5 water to 125 mL an hour. Give 200 mL free water push per OG every 4 hours -Agree with sodium checks every 4-5 hours until corrected, monitor neurological status -We will check urine electrolytes -Consider DDAVP if free water and insufficient (2) Hypernatremia Current Visit: Yes Status: Acute Likely secondary to free water deficit Plan as above (3) Acute respiratory failure with hypoxemia Current Visit: Yes Status: Acute Improved from prior, lungs originally sounded clear on exam after suction Per primary critical team (4) Anemia Current Visit: Yes Status: Acute Transfusion parameters per primary team Qualifiers: Anemia type: other cause Other causes of anemia: acute posthemorrhagic Qualified Code(s): D62 - Acute posthemorrhagic anemia Subjective Principal diagnosis: septic shock Interval history: The patient is resting in bed. He has remained on mechanical ventilation, however today he has had CPAP trials because his respiratory status has improved. He is also significantly less sedated than he was previously. According to the nursing staff she is having a significant amount of urine output. He has remained afebrile overnight. Objective - Vital Signs Vital signs: Vital Signs Temp Pulse Resp BP Pulse Ox 06/30/18 08:00 79 23 110/63 93 06/30/18 07:51 21 111/66 95 06/30/18 07:30 98.9 F 06/30/18 07:00 98.9 F 74 16 111/66 93 06/30/18 06:00 70 16 110/67 93 06/30/18 05:00 71 16 122/73 92 06/30/18 04:35 98.5 F 06/30/18 04:00 66 16 126/74 93 06/30/18 03:00 77 16 134/81 95 06/30/18 02:00 68 16 151/81 93 06/30/18 01:00 98.5 F 65 16 147/82 94 06/30/18 00:05 16 140/81 98 06/30/18 00:02 65 16 140/81 99 06/30/18 00:00 65 06/29/18 23:00 66 16 123/68 94 06/29/18 22:00 75 16 122/67 94 06/29/18 21:11 16 129/67 93 06/29/18 21:00 78 16 129/67 93 06/29/18 20:32 98.7 F 06/29/18 20:00 81 26 127/68 95 06/29/18 19:45 86 06/29/18 19:41 16 129/68 96 06/29/18 19:00 86 16 114/63 94 06/29/18 18:00 87 16 123/74 93 06/29/18 17:35 16 127/66 93 06/29/18 17:00 100.6 F H 86 16 127/66 93 06/29/18 16:07 100.6 F H 06/29/18 16:00 89 16 105/89 92 06/29/18 15:20 21 105/89 95 06/29/18 15:00 87 18 105/77 93 06/29/18 14:00 92 16 100/58 94 06/29/18 13:18 17 135/65 94 06/29/18 13:00 87 16 113/67 92 06/29/18 12:00 90 18 135/65 93 06/29/18 11:00 100.9 F H 105 19 131/75 93 06/29/18 10:00 83 16 131/75 93 06/29/18 09:00 91 18 111/62 94 Intake and Output 06/29/18 06/30/18 06/30/18 23:59 07:59 15:59 Intake Total 364 / 364 356 / 356 Output Total 1800 / 1800 1950 / 1950 Balance -1436 / -1436 -1594 / -1594 Intake: IV Fluids 364 / 364 356 / 356 PRECEDEX Premix 400 mcg In 100 100 / 100 200 / 200 ml @ 0.2 MCG/KG/HR 6.65 mls/hr IVC .[id number] Rx#:[id number] FentaNYL (PF) 2,500 MCG In 54 / 54 46 / 46 Empty Bag 1 Each @ 50 MCG/HR 1 mls/hr IVC CONT [facility] Rx#: [id number] Zovirax 500 MG In Dextrose 5% 110 / 110 110 / 110 100 ML @ 110 mls/hr IVPB Q12H [facility] Rx#:[id number] Diflucan Premix 200 MG/100 ML 100 / 100 200 mg In 100 ml @ 100 mls/hr IVPB Q24H [facility] Rx#:[id number] Output: Catheter 1800 / 1800 1950 / 1950 Other: Weight 111.7 kg Blood Glucose* 156 151 Patient Weight 06/30/18 23:59 Weight 111.7 kg - General Appearance Exam: Gen: Vitals noted. No acute distress. Patient is on ventilator but opens his eyes in response to stimuli HEENT: Normocephalic, atraumatic. Dry mucous membranes. Right sclera is injected. Neck: Supple. No adenopathy. Right internal jugular temporary hemodialysis catheter in place with no erythema surrounding Cardiac: RRR, no murmur, +S1/S2 Pulmonary: Lungs are largely cleared up auscultation bilaterally initially on exam however with some rattling later on exam suggestive of mucous secretions Abdomen: soft, nontender, no guarding Extremities: 2+ bilateral lower extremity edema, nontender calf, no cyanosis or clubbing Neuro: Patient is sedated on ventilator. Slightly more arousable than previous exam - Lab 06/30/18 03:39 06/30/18 09:00 Most recent lab results ABG pH 7.45 pH Units (7.32-7.45) 06/30/18 05:39 ABG pCO2 50 mmHg (35-45) H 06/30/18 05:39 ABG pO2 57 mmHg (85-104) L 06/30/18 05:39 ABG HCO3 35 mEq/L (21-27) H 06/30/18 05:39 ABG O2 Saturation 90 % (95-98) L 06/30/18 05:39 Calcium 8.5 mg/dL (8.6-10.3) L 06/30/18 03:39 Phosphorus 5.9 mg/dL (2.7-4.5) H 06/30/18 03:39 Magnesium 2.3 mg/dL (1.6-2.6) 06/30/18 03:39 Urine Sodium 128.8 mEq/L 06/17/18 18:15 - VTE Documentation of Mechanical Device: Intermittent pneumatic compression device Consult Discharge Plan - Plan Referrals: Sheryl Stahl CNP [Primary Care Provider] -
[2018-06-30] MEDS: D5% in Water 1,000 ML IVC SCH ×2 (11:50→17:58)
--- NOTE | 2018-06-30 11:53 | Neurology Progress Note ---
Date of Encounter: 06/30/18 Time of Encounter: 11:50 Assessment and Plan (1) Encephalopathy Current Visit: Yes Status: Acute I agree we will likely dealing with toxic metabolic encephalopathy secondary to sepsis. He is improving since admission. He is making eye contact and follows some simple commands, he is attempting to speak well on the ventilator. I see no signs at this point of a central nervous system infection. I would however recommend maintaining the antibiotics and acyclovir until extubated. Once he is extubated we can determine the specific factors about his neuro status to determine whether or not acyclovir is still needed. However his neurologic workup has also been negative. My impressions were discussed with the family as well as nursing. I will also be able to determine further whether not he has a hereditary underlying neurologic condition that may be affecting his leg strength. 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 His family informed me that the patient's grandfather had a similar condition, and the patient must ambulate with a walker. They also seem to be describing spontaneous clonus. His deep tendon reflexes are cloniform. Critical care time spent with the patient today was greater than 1 hour which consisted of chart review, counseling family and coordinating care. Subjective Principal diagnosis: septic shock Interval history: Chart was reviewed, the patient was seen and examined. Case was signed out to me by Dr. Tobin. Patient is a 52-year-old gentleman who was admitted to the hospital on 06/17/2018 with symptoms suggestive of pneumonia and septic shock. Apparently he is gone into acute renal failure and has been on dialysis as well. He remains intubated on a ventilator. Neurology was consulted due to metabolic encephalopathy. He has had MRI scan of the brain which was negative, EEG was unrevealing. However the last day or so he has been more responsive, he is awake he is following some simple commands, he makes eye contact, multiple family members are present. Family members, and nursing confirm his mental status is improving. 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 However this would not be expected to complicate his current status. His WBCs are trending down. Objective - Constitutional Vitals: Temp Pulse Resp BP Pulse Ox 99.7 F H 78 16 123/75 94 06/30/18 11:00 06/30/18 11:00 06/30/18 11:24 06/30/18 11:24 06/30/18 11:24 - Neurological Exam Motor Examination: Present: full strength in all major muscle groups, other ( Patient moves both upper extremities freely. He is restrained on both sides. He does have a good operations controller on both sides. He is able to wiggle the toes minimally. He seems to have some paucity of movement of the lower extremities. However this may be due to a pre-existing condition. 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 Achilles reflexes however are diminished. There is no ankle clonus present. No Babinski present.) Mental Status Examination: Present: awake (Patient is awake alert ventilator, he was drowsy however. He is making eye contact with the examiner as well as other family members. He is attempting to talk while on the ventilator. He follows some simple commands however not all.), stupor Cranial nerve examination: Present: PERRL, EOMI, corneal reflexes brisk symmetrically, mastication intact, gag reflex intact - VTE Documentation of Mechanical Device: Intermittent pneumatic compression device Results - Laboratory Findings CBC and BMP: 06/30/18 03:39 06/30/18 09:00 Abnormal lab findings: Abnormal lab results WBC 15.7 K/mcL (4.3-11.1) H 06/30/18 03:39 RBC 2.44 M/mcL (4.19-5.50) L 06/30/18 03:39 Hgb 7.7 g/dL (12.9-16.9) L 06/30/18 03:39 Hct 24.6 % (37.5-50.1) L 06/30/18 03:39 MCV 100.8 fL (83.0-100.0) H 06/30/18 03:39 MCHC 31.3 g/dL (31.6-35.5) L 06/30/18 03:39 RDW 17.5 % (11.5-14.5) H 06/30/18 03:39 Plt Count 102 K/mcL (140-400) L 06/30/18 03:39 Band Neutrophils % 6.0 % (0-4) H 06/27/18 03:00 Metamyelocytes % 2.0 % (0) H 06/27/18 03:00 Myelocytes % 6.0 % (0) H 06/27/18 03:00 Neutrophils # 13.0 K/mcL (1.6-8.9) H 06/30/18 03:39 Nucleated RBCs/100 WBC 0.1 /100 WBC (0) H 06/28/18 03:30 Toxic Granulation Present (Not Present) A 06/18/18 03:05 Toxic Vacuolation Present (Not Present) A 06/22/18 03:45 Platelet Estimate Slight Decrease (Normal) L 06/28/18 03:30 Large Platelets Present (Not Present) A 06/23/18 03:15 Polychromasia 1+ (Not Present) A 06/27/18 03:00 Basophilic Stippling 1+ (Not Present) A 06/26/18 04:00 Anisocytosis 1+ (Not Present) A 06/28/18 03:30 Macrocytosis Present (Not Present) A 06/26/18 04:00 PT 16.7 Seconds (9.4-12.1) H 06/22/18 03:45 APTT 62.8 Seconds (26.0-36.0) H 06/23/18 08:00 Fibrinogen 578 mg/dL (169-393) H 06/18/18 08:08 D-Dimer 3465 ng/mLFEU (0-500) H 06/18/18 08:08 ABG pCO2 50 mmHg (35-45) H 06/30/18 05:39 ABG pO2 57 mmHg (85-104) L 06/30/18 05:39 ABG HCO3 35 mEq/L (21-27) H 06/30/18 05:39 ABG Total CO2 37 mEq/L (20-26) H 06/30/18 05:39 ABG O2 Saturation 90 % (95-98) L 06/30/18 05:39 ABG Base Excess 10 mEq/L (-2 to 3) H 06/30/18 05:39 Sodium 159 mEq/L (136-145) H 06/30/18 09:00 Chloride 115 mEq/L (98-107) H 06/30/18 03:39 Carbon Dioxide 34 mEq/L (23-29) H 06/30/18 03:39 BUN 31 mg/dL (6-20) H 06/30/18 03:39 Creatinine 2.38 mg/dL (0.70-1.30) H 06/30/18 03:39 Est GFR ( Amer) 35 (> 60) L 06/30/18 03:39 Est GFR (Non-Af Amer) 29 (> 60) L 06/30/18 03:39 Glucose 191 mg/dL (70-105) H 06/30/18 03:39 POC Glucose 138 mg/dL (70-99) H 06/30/18 11:31 Calculated Osmolality 334 (280-300) H 06/30/18 03:39 Calcium 8.5 mg/dL (8.6-10.3) L 06/30/18 03:39 Venous Ioniz Calcium 1.14 mmol/L (1.15-1.35) L 06/30/18 04:06 Phosphorus 5.9 mg/dL (2.7-4.5) H 06/30/18 03:39 Direct Bilirubin 0.4 mg/dL (0.0-0.2) H 06/23/18 03:15 AST 49 Units/L (13-39) H 06/30/18 03:39 Troponin I 0.92 ng/mL (< 0.04) H* 06/17/18 22:33 Serum Total Protein 6.0 g/dL (6.4-8.9) L 06/30/18 03:39 Albumin 2.5 g/dL (3.5-5.7) L 06/30/18 03:39 Albumin/Globulin Ratio 0.7 (1.1-2.2) L 06/30/18 03:39 Amylase 20 Units/L (29-103) L 06/23/18 16:27 Folate 2.5 ng/mL (3.0-16.0) L 06/27/18 11:25 Procalcitonin 107.11 ng/mL (<=0.07) H 06/17/18 16:40 TSH 7.234 mcIU/mL (0.340-5.600) H 06/27/18 11:25 Urine Protein 30 mg/dL (Neg-Trace) H 06/24/18 11:15 Urine Blood Moderate (Negative) H 06/24/18 11:15 Urine Bilirubin Small (Negative) H 06/24/18 11:15 Ur Leukocyte Esterase Moderate (Negative) H 06/24/18 11:15 Urine Microscopic RBC 3-5 per hpf (0-3) H 06/24/18 11:15 Urine Microscopic WBC 50-100 per hpf (0-3) H 06/24/18 11:15 Ur Squamous Epith Cells Many per lpf (None-Few) H 06/24/18 11:15 Vancomycin Trough 18 mcg/mL (5-10) H 06/19/18 08:20 Urine Opiates Screen Positive ng/mL (Orfsmr=288) H 06/18/18 10:37 U Benzodiazepines Scrn Positive ng/mL (Uuwfft=187) H 06/18/18 10:37 HSV I DETECTED (Not Detect) A 06/24/18 15:10 Consult Discharge Plan - Plan Referrals: Sheryl Stahl, [facility] [Primary Care Provider] -
--- NOTE | 2018-06-30 12:33 | Pulmonology Progress Note ---
<JonasMaximo W - Last Filed: 06/30/18 12:35> Date of Encounter: 06/30/18 Objective PUL Vital signs: Last Vital Signs Temp 99.7 F H 06/30/18 11:51 Pulse 78 06/30/18 11:00 Resp 16 06/30/18 11:24 BP 123/75 06/30/18 11:24 Pulse Ox 94 06/30/18 11:24 Ventilator Settings Ventilator Settings: Ventilator Settings, Last 8 Hours Ventilator Tidal Volume 500 Setting Ventilator Tidal Volume 500 Setting Ventilator Tidal Volume 500 Setting Ventilator Tidal Volume 500 Setting Ventilator Tidal Volume 500 Setting Ventilator Tidal Volume 500 Setting Ventilator Tidal Volume 500 Setting Ventilator Tidal Volume 500 Setting Ventilator Tidal Volume 500 Setting Ventilator Respiratory Rate 16 Setting Ventilator Respiratory Rate 16 Setting Ventilator Respiratory Rate 16 Setting Ventilator Respiratory Rate 16 Setting Ventilator Respiratory Rate 16 Setting Ventilator Respiratory Rate 16 Setting Ventilator Respiratory Rate 16 Setting Ventilator Respiratory Rate 16 Setting Ventilator Respiratory Rate 16 Setting Actual Respiratory Rate 16 Actual Respiratory Rate 18 Actual Respiratory Rate 18 Actual Respiratory Rate 23 Actual Respiratory Rate 20 Actual Respiratory Rate 21 Actual Respiratory Rate 16 Actual Respiratory Rate 16 Actual Respiratory Rate 16 Actual Respiratory Rate 16 Positive End Expiratory 5 Pressure Positive End Expiratory 5 Pressure Positive End Expiratory 5 Pressure Positive End Expiratory 5 Pressure Positive End Expiratory 5 Pressure Positive End Expiratory 5 Pressure Positive End Expiratory 5 Pressure Positive End Expiratory 5 Pressure Positive End Expiratory 5 Pressure Peak Inspiratory Airway 34 Pressure Peak Inspiratory Airway 33 Pressure Peak Inspiratory Airway 30 Pressure Peak Inspiratory Airway 25 Pressure Peak Inspiratory Airway 16 Pressure Peak Inspiratory Airway 15 Pressure Peak Inspiratory Airway 31 Pressure Peak Inspiratory Airway 30 Pressure Peak Inspiratory Airway 30 Pressure Peak Inspiratory Airway 30 Pressure Results - Laboratory Findings CBC and BMP: 06/30/18 03:39 06/30/18 09:00 ABG ABG pH 7.45 pH Units (7.32-7.45) 06/30/18 05:39 ABG pCO2 50 mmHg (35-45) H 06/30/18 05:39 ABG pO2 57 mmHg (85-104) L 06/30/18 05:39 ABG O2 Saturation 90 % (95-98) L 06/30/18 05:39 PT/INR, D-dimer PT 16.7 Seconds (9.4-12.1) H 06/22/18 03:45 D-Dimer 3465 ng/mLFEU (0-500) H 06/18/18 08:08 Abnormal lab findings: Abnormal lab results WBC 15.7 K/mcL (4.3-11.1) H 06/30/18 03:39 RBC 2.44 M/mcL (4.19-5.50) L 06/30/18 03:39 Hgb 7.7 g/dL (12.9-16.9) L 06/30/18 03:39 Hct 24.6 % (37.5-50.1) L 06/30/18 03:39 MCV 100.8 fL (83.0-100.0) H 06/30/18 03:39 MCHC 31.3 g/dL (31.6-35.5) L 06/30/18 03:39 RDW 17.5 % (11.5-14.5) H 06/30/18 03:39 Plt Count 102 K/mcL (140-400) L 06/30/18 03:39 Band Neutrophils % 6.0 % (0-4) H 06/27/18 03:00 Metamyelocytes % 2.0 % (0) H 06/27/18 03:00 Myelocytes % 6.0 % (0) H 06/27/18 03:00 Neutrophils # 13.0 K/mcL (1.6-8.9) H 06/30/18 03:39 Nucleated RBCs/100 WBC 0.1 /100 WBC (0) H 06/28/18 03:30 Toxic Granulation Present (Not Present) A 06/18/18 03:05 Toxic Vacuolation Present (Not Present) A 06/22/18 03:45 Platelet Estimate Slight Decrease (Normal) L 06/28/18 03:30 Large Platelets Present (Not Present) A 06/23/18 03:15 Polychromasia 1+ (Not Present) A 06/27/18 03:00 Basophilic Stippling 1+ (Not Present) A 06/26/18 04:00 Anisocytosis 1+ (Not Present) A 06/28/18 03:30 Macrocytosis Present (Not Present) A 06/26/18 04:00 PT 16.7 Seconds (9.4-12.1) H 06/22/18 03:45 APTT 62.8 Seconds (26.0-36.0) H 06/23/18 08:00 Fibrinogen 578 mg/dL (169-393) H 06/18/18 08:08 D-Dimer 3465 ng/mLFEU (0-500) H 06/18/18 08:08 ABG pCO2 50 mmHg (35-45) H 06/30/18 05:39 ABG pO2 57 mmHg (85-104) L 06/30/18 05:39 ABG HCO3 35 mEq/L (21-27) H 06/30/18 05:39 ABG Total CO2 37 mEq/L (20-26) H 06/30/18 05:39 ABG O2 Saturation 90 % (95-98) L 06/30/18 05:39 ABG Base Excess 10 mEq/L (-2 to 3) H 06/30/18 05:39 Sodium 159 mEq/L (136-145) H 06/30/18 09:00 Chloride 115 mEq/L (98-107) H 06/30/18 03:39 Carbon Dioxide 34 mEq/L (23-29) H 06/30/18 03:39 BUN 31 mg/dL (6-20) H 06/30/18 03:39 Creatinine 2.38 mg/dL (0.70-1.30) H 06/30/18 03:39 Est GFR ( Amer) 35 (> 60) L 06/30/18 03:39 Est GFR (Non-Af Amer) 29 (> 60) L 06/30/18 03:39 Glucose 191 mg/dL (70-105) H 06/30/18 03:39 POC Glucose 138 mg/dL (70-99) H 06/30/18 11:31 Calculated Osmolality 334 (280-300) H 06/30/18 03:39 Calcium 8.5 mg/dL (8.6-10.3) L 06/30/18 03:39 Venous Ioniz Calcium 1.14 mmol/L (1.15-1.35) L 06/30/18 04:06 Phosphorus 5.9 mg/dL (2.7-4.5) H 06/30/18 03:39 Direct Bilirubin 0.4 mg/dL (0.0-0.2) H 06/23/18 03:15 AST 49 Units/L (13-39) H 06/30/18 03:39 Troponin I 0.92 ng/mL (< 0.04) H* 06/17/18 22:33 Serum Total Protein 6.0 g/dL (6.4-8.9) L 06/30/18 03:39 Albumin 2.5 g/dL (3.5-5.7) L 06/30/18 03:39 Albumin/Globulin Ratio 0.7 (1.1-2.2) L 06/30/18 03:39 Amylase 20 Units/L (29-103) L 06/23/18 16:27 Folate 2.5 ng/mL (3.0-16.0) L 06/27/18 11:25 Procalcitonin 107.11 ng/mL (<=0.07) H 06/17/18 16:40 TSH 7.234 mcIU/mL (0.340-5.600) H 06/27/18 11:25 Urine Protein 30 mg/dL (Neg-Trace) H 06/24/18 11:15 Urine Blood Moderate (Negative) H 06/24/18 11:15 Urine Bilirubin Small (Negative) H 06/24/18 11:15 Ur Leukocyte Esterase Moderate (Negative) H 06/24/18 11:15 Urine Microscopic RBC 3-5 per hpf (0-3) H 06/24/18 11:15 Urine Microscopic WBC 50-100 per hpf (0-3) H 06/24/18 11:15 Ur Squamous Epith Cells Many per lpf (None-Few) H 06/24/18 11:15 Vancomycin Trough 18 mcg/mL (5-10) H 06/19/18 08:20 Urine Opiates Screen Positive ng/mL (Nyekez=680) H 06/18/18 10:37 U Benzodiazepines Scrn Positive ng/mL (Iyuvgt=477) H 06/18/18 10:37 HSV I DETECTED (Not Detect) A 06/24/18 15:10 - Microbiology Findings Microbiology Findings: Microbiology, Last 48 Hours 06/24/18 11:35 Blood Culture - Final Peripheral Venipuncture No growth. Final report. 06/24/18 11:35 Blood Culture - Final Peripheral Venipuncture No growth. Final report. - Clinical Findings Intake & Output: Intake & Output 06/29/18 06/30/18 06/30/18 23:59 07:59 15:59 Intake Total 364 / 364 356 / 356 300 / 300 Output Total 1800 / 1800 1950 / 1950 525 / 525 Balance -1436 / -1436 -1594 / -1594 -225 / -225 Weight 111.7 kg Consult Discharge Plan - Plan Referrals: Sheryl Stahl, JOURNALISM INSTRUCTOR [Primary Care Provider] - - Attending Attestation I examined this patient and my medical decision-making was reviewed with the Resident Physician. I agree with the documented findings, disposition and treatment plan as described except to the extent set forth below. We independently had [id number] contact with the patient Patient seen and examined at bedside Labs, radiology, chart personally reviewed. Management was reviewed during multidisciplinary critical care rounds. MANAGER SPANISH: Remains delirious but able to follow simple commands.. Cont PRecedex and low dose infusion on Fentanyl for sedation while on vent Pulm: Hypoxic/hypercapnic respiratory failure on vent. SBT today marked by Apnea. retry tomorrow. Cards: BP stable. off pressors. GI:GI prophylaxis given Nutrition: Cont Enteral Nutrition. Renal: Lucila improving. Marked by Hyponatremia and worsenign Cre today likely s/t to post ATN disuresis. Free H20 and etnral H20 given. Neprhology following. UOP Monitored, Cont to Trend sCr and monitor Electrolytes. ID: Cont ABx per ID recs for fungemia and HSV Heme/Onc: DVT prophylaxis given. H/H/Plts monitored. Endo: Glucose Monitored Integ/MSK: Skin Care per routine ICU Nursing Protocol to prevent ulcers. Lines: All lines examined without evidence of infection : Dispo: Remain in ICU CODE: Full Code. <Kacy Heath - Last Filed: 06/30/18 13:14> Date of Encounter: 06/30/18 Time of Encounter: 12:31 Assessment and Plan (1) Acute respiratory failure with hypoxemia Current Visit: Yes Status: Acute On ventilator Chest XR from this AM shows ET tube approx 5cm above sanjeev. pH is 7.45 today. Continue to monitor and repeat ABGs if changes in respiratory status. (2) Septic shock Current Visit: Yes Status: Acute sepsis suspected secondary to karo fungemia. Currently on precedex and fentanyl. Nephrology following for kidney function, has d/c'd CRRT and HD and does not plan to do HD again, although they are adding D5 with free water for hypernatremia. On fluconazole for fungemia, possible from UTI. Acyclovir started 06/25/18 for possible herpes encephalitis. No growth on cultures from or 06/24/18. Brain MRI unremarkable. No acute intracranial abnormalities. CT scan 06/23/18 showed thickening of the bladder wall possibly due to cystitis. Small bilateral pleural effusions with bibasilar pulmonary airspace opacities, thought to be atelectasis. Sludge within the gallbladder. Mildly enlarged anterior mediastrinal lymph node and peripancreatic nodes, may be reactive. Neuro was consulted and his EEG did not show any seizure activity, and his symptoms were thought to be metabolic toxic encephalopathy. They recommended continuing antibiotics and antivirals per ID recommendation. Bowel sounds are absent and abdomen is distended, but soft. KUB yesterday showed normal gas pattern. Continue to monitor. (3) Systolic heart failure Current Visit: Yes Status: Acute MAP today 108. Continue to monitor and keep MAP>60. Qualifiers: Heart failure chronicity: unspecified Qualified Code(s): I50.20 - Unspecified systolic (congestive) heart failure (4) Hypokalemia Current Visit: Yes Status: Resolved Potassium 3.7 today. Continue to monitor and replete as necessary. (5) LUCILA (acute kidney injury) Current Visit: Yes Status: Acute Creatinine 2.38 today, up from a few days ago when he was on CRRT. Nephrology on board, plan to replete free water deficit of 7L and reasses need for HD in the morning. (6) Hypocalcemia Current Visit: Yes Status: Acute Calcium at 8.5 today. Ionized Ca2+ 1.14 today. Nephrology on board. (7) DVT prophylaxis Current Visit: Yes Status: Acute Heparin has been held for the last several days over concern for HIT. Platelets have been trending downward, but are overall increased from low of 67 on . 4T's score for HIT is 3, which is a low probability for HIT. Evaluate platelets in the morning and if stable, restart Heparin. (8) Type 2 diabetes mellitus Current Visit: Yes Status: Chronic Glucose today 191. Was started on high sliding scale of lispro on admission. IV insulin drop. Trickle feeds were started 06/22/18. Continue to monitor, continue IV insulin. 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 Qualifiers: COPD type: emphysema Emphysema type: unspecified Qualified Code(s): J43.9 - Emphysema, unspecified (10) Thrombocytopenia Current Visit: Yes Status: Resolved Platelets stable at 102 today. Continue to monitor. (11) UTI (urinary tract infection) Current Visit: Yes Status: Acute Urine antigen testing for Legionella and S PNA was negative. Continue treating for fungemia from suspected UTI from [place]. Qualifiers: Urinary tract infection type: site unspecified Hematuria presence: without hematuria Qualified Code(s): N39.0 - Urinary tract infection, site not specified (12) HIT (heparin-induced thrombocytopenia) Current Visit: Yes Status: Suspected 4T HIT score was 3, giving a low suspicion for HIT. Evaluate platelet count in the morning. If stable, pt likely did not have HIT. (13) Anemia Current Visit: Yes Status: Acute Hg slightly decreased at 7.7 although nephrology is repleting free water so may be hemodilution. Qualifiers: Anemia type: other cause Other causes of anemia: acute posthemorrhagic Qualified Code(s): D62 - Acute posthemorrhagic anemia (14) Encephalopathy Current Visit: Yes Status: Acute Neurology on board, believes his encephalopathy may be due to toxic metabolic causes. Continue antibiotics and reassess mental status as infection clears. 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 Continue to monitor. (16) Hypernatremia Current Visit: Yes Status: Acute Nephrology calculated free water deficit of 7L today and plans to replete. Sodium was 156 this morning, will check again in the morning. Subjective Principal diagnosis: septic shock Interval history: Mr. Mccarthy was seen at bedside this morning. He is sedated and intubated on a ventilator but is more arousable, moves all extremities, and will open his eyes on command. Currently on precedex and fentanyl. 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 Acyclovir started for possible HSV1 possible encephailitis. Nephrology on board for worsening hypernatremia and continued renal management. He had Na+ 147 yesterday and is at 156 today. They calculated a free water deficit of 7L today and plan to replete and evaluate his need for HD in the morning. Nephrology willing to remove HD catheter if we suspect hyperthermia is related to HD catheter. WBC continues to trend downward frm high on 06/19/18. Objective PUL Vital signs: Last Vital Signs Temp 99.7 F H 06/30/18 11:51 Pulse 78 06/30/18 11:00 Resp 16 06/30/18 11:24 BP 123/75 06/30/18 11:24 Pulse Ox 94 06/30/18 11:24 General appearance: asleep, other (arousable, will follow commands) Eyes: nonicteric ENT: oropharynx dry Effort: other (intubated and ventilated) Cardiovascular: regular rate and rhythm Gastrointestinal: hypoactive bowel sounds Integumentary: normal Extremities: edema (non-pitting edema WILLIAM LE) other (intubated and sedated) other (intubated and sedated) Ventilator Settings Ventilator Settings: Ventilator Settings, Last 8 Hours Ventilator Tidal Volume 500 Setting Ventilator Tidal Volume 500 Setting Ventilator Tidal Volume 500 Setting Ventilator Tidal Volume 500 Setting Ventilator Tidal Volume 500 Setting Ventilator Tidal Volume 500 Setting Ventilator Tidal Volume 500 Setting Ventilator Tidal Volume 500 Setting Ventilator Tidal Volume 500 Setting Ventilator Respiratory Rate 16 Setting Ventilator Respiratory Rate 16 Setting Ventilator Respiratory Rate 16 Setting Ventilator Respiratory Rate 16 Setting Ventilator Respiratory Rate 16 Setting Ventilator Respiratory Rate 16 Setting Ventilator Respiratory Rate 16 Setting Ventilator Respiratory Rate 16 Setting Ventilator Respiratory Rate 16 Setting Actual Respiratory Rate 16 Actual Respiratory Rate 18 Actual Respiratory Rate 18 Actual Respiratory Rate 23 Actual Respiratory Rate 20 Actual Respiratory Rate 21 Actual Respiratory Rate 16 Actual Respiratory Rate 16 Actual Respiratory Rate 16 Actual Respiratory Rate 16 Positive End Expiratory 5 Pressure Positive End Expiratory 5 Pressure Positive End Expiratory 5 Pressure Positive End Expiratory 5 Pressure Positive End Expiratory 5 Pressure Positive End Expiratory 5 Pressure Positive End Expiratory 5 Pressure Positive End Expiratory 5 Pressure Positive End Expiratory 5 Pressure Peak Inspiratory Airway 34 Pressure Peak Inspiratory Airway 33 Pressure Peak Inspiratory Airway 30 Pressure Peak Inspiratory Airway 25 Pressure Peak Inspiratory Airway 16 Pressure Peak Inspiratory Airway 15 Pressure Peak Inspiratory Airway 31 Pressure Peak Inspiratory Airway 30 Pressure Peak Inspiratory Airway 30 Pressure Peak Inspiratory Airway 30 Pressure Results - Laboratory Findings CBC and BMP: 06/30/18 03:39 06/30/18 09:00 ABG ABG pH 7.45 pH Units (7.32-7.45) 06/30/18 05:39 ABG pCO2 50 mmHg (35-45) H 06/30/18 05:39 ABG pO2 57 mmHg (85-104) L 06/30/18 05:39 ABG O2 Saturation 90 % (95-98) L 06/30/18 05:39 PT/INR, D-dimer PT 16.7 Seconds (9.4-12.1) H 06/22/18 03:45 D-Dimer 3465 ng/mLFEU (0-500) H 06/18/18 08:08 Abnormal lab findings: Abnormal lab results WBC 15.7 K/mcL (4.3-11.1) H 06/30/18 03:39 RBC 2.44 M/mcL (4.19-5.50) L 06/30/18 03:39 Hgb 7.7 g/dL (12.9-16.9) L 06/30/18 03:39 Hct 24.6 % (37.5-50.1) L 06/30/18 03:39 MCV 100.8 fL (83.0-100.0) H 06/30/18 03:39 MCHC 31.3 g/dL (31.6-35.5) L 06/30/18 03:39 RDW 17.5 % (11.5-14.5) H 06/30/18 03:39 Plt Count 102 K/mcL (140-400) L 06/30/18 03:39 Band Neutrophils % 6.0 % (0-4) H 06/27/18 03:00 Metamyelocytes % 2.0 % (0) H 06/27/18 03:00 Myelocytes % 6.0 % (0) H 06/27/18 03:00 Neutrophils # 13.0 K/mcL (1.6-8.9) H 06/30/18 03:39 Nucleated RBCs/100 WBC 0.1 /100 WBC (0) H 06/28/18 03:30 Toxic Granulation Present (Not Present) A 06/18/18 03:05 Toxic Vacuolation Present (Not Present) A 06/22/18 03:45 Platelet Estimate Slight Decrease (Normal) L 06/28/18 03:30 Large Platelets Present (Not Present) A 06/23/18 03:15 Polychromasia 1+ (Not Present) A 06/27/18 03:00 Basophilic Stippling 1+ (Not Present) A 06/26/18 04:00 Anisocytosis 1+ (Not Present) A 06/28/18 03:30 Macrocytosis Present (Not Present) A 06/26/18 04:00 PT 16.7 Seconds (9.4-12.1) H 06/22/18 03:45 APTT 62.8 Seconds (26.0-36.0) H 06/23/18 08:00 Fibrinogen 578 mg/dL (169-393) H 06/18/18 08:08 D-Dimer 3465 ng/mLFEU (0-500) H 06/18/18 08:08 ABG pCO2 50 mmHg (35-45) H 06/30/18 05:39 ABG pO2 57 mmHg (85-104) L 06/30/18 05:39 ABG HCO3 35 mEq/L (21-27) H 06/30/18 05:39 ABG Total CO2 37 mEq/L (20-26) H 06/30/18 05:39 ABG O2 Saturation 90 % (95-98) L 06/30/18 05:39 ABG Base Excess 10 mEq/L (-2 to 3) H 06/30/18 05:39 Sodium 159 mEq/L (136-145) H 06/30/18 09:00 Chloride 115 mEq/L (98-107) H 06/30/18 03:39 Carbon Dioxide 34 mEq/L (23-29) H 06/30/18 03:39 BUN 31 mg/dL (6-20) H 06/30/18 03:39 Creatinine 2.38 mg/dL (0.70-1.30) H 06/30/18 03:39 Est GFR ( Amer) 35 (> 60) L 06/30/18 03:39 Est GFR (Non-Af Amer) 29 (> 60) L 06/30/18 03:39 Glucose 191 mg/dL (70-105) H 06/30/18 03:39 POC Glucose 138 mg/dL (70-99) H 06/30/18 11:31 Calculated Osmolality 334 (280-300) H 06/30/18 03:39 Calcium 8.5 mg/dL (8.6-10.3) L 06/30/18 03:39 Venous Ioniz Calcium 1.14 mmol/L (1.15-1.35) L 06/30/18 04:06 Phosphorus 5.9 mg/dL (2.7-4.5) H 06/30/18 03:39 Direct Bilirubin 0.4 mg/dL (0.0-0.2) H 06/23/18 03:15 AST 49 Units/L (13-39) H 06/30/18 03:39 Troponin I 0.92 ng/mL (< 0.04) H* 06/17/18 22:33 Serum Total Protein 6.0 g/dL (6.4-8.9) L 06/30/18 03:39 Albumin 2.5 g/dL (3.5-5.7) L 06/30/18 03:39 Albumin/Globulin Ratio 0.7 (1.1-2.2) L 06/30/18 03:39 Amylase 20 Units/L (29-103) L 06/23/18 16:27 Folate 2.5 ng/mL (3.0-16.0) L 06/27/18 11:25 Procalcitonin 107.11 ng/mL (<=0.07) H 06/17/18 16:40 TSH 7.234 mcIU/mL (0.340-5.600) H 06/27/18 11:25 Urine Protein 30 mg/dL (Neg-Trace) H 06/24/18 11:15 Urine Blood Moderate (Negative) H 06/24/18 11:15 Urine Bilirubin Small (Negative) H 06/24/18 11:15 Ur Leukocyte Esterase Moderate (Negative) H 06/24/18 11:15 Urine Microscopic RBC 3-5 per hpf (0-3) H 06/24/18 11:15 Urine Microscopic WBC 50-100 per hpf (0-3) H 06/24/18 11:15 Ur Squamous Epith Cells Many per lpf (None-Few) H 06/24/18 11:15 Vancomycin Trough 18 mcg/mL (5-10) H 06/19/18 08:20 Urine Opiates Screen Positive ng/mL (Bfyzjg=621) H 06/18/18 10:37 U Benzodiazepines Scrn Positive ng/mL (Sodhbw=885) H 06/18/18 10:37 HSV I DETECTED (Not Detect) A 06/24/18 15:10 - Microbiology Findings Microbiology Findings: Microbiology, Last 48 Hours 06/24/18 11:35 Blood Culture - Final Peripheral Venipuncture No growth. Final report. 06/24/18 11:35 Blood Culture - Final Peripheral Venipuncture No growth. Final report. - Clinical Findings Intake & Output: Intake & Output 06/29/18 06/30/18 06/30/18 23:59 07:59 15:59 Intake Total 364 / 364 356 / 356 300 / 300 Output Total 1800 / 1800 1950 / 1950 525 / 525 Balance -1436 / -1436 -1594 / -1594 -225 / -225 Weight 111.7 kg - VTE Documentation of Mechanical Device: Intermittent pneumatic compression device
[2018-06-30] MEDS: Fluconazole 200 MG/100 ML IVPB SCH (15:31)
[2018-06-30] MEDS: Norepinephrine 4 MG in D5% in Water 250 ML IVC SCH (18:30)
[2018-06-30 20:06] LABS: Bilirubin,Urine Negative (Negative); Blood,Urine Moderate (Negative); Clarity,Urine Clear (Clear); Color,Urine Yellow (Yellow); Glucose,Urine (UA) Normal (Normal); Ketones,Urine Negative (Negative); Leukocyte Esterase,Urine Moderate (Negative); Nitrite,Urine Negative (Negative); Protein,Urine Trace mg/dL (Neg-Trace); Specific Gravity,Urine < 1.005 (1.010-1.025); Urobilinogen,Urine Normal (Normal)
[2018-06-30 20:09] LABS: Hyaline Casts,Urine None Seen per lpf (None-Few); Squamous Epithelial Cell,Urine None Seen per lpf (None-Few); WBC,Urine 50-100 per hpf (0-3)
[2018-06-30 20:14] LABS: Protein/Creatinine Ratio,Urine 1.68 mg/mg (0.00-0.20); Sodium, Urine 40.6 mEq/L
[2018-06-30 20:49] LABS: Bacteria,Urine Many per hpf (None-Few)
[2018-07-01] MEDS: Dexmedetomidine HCl 400 MCG/100 ML MLS IVC SCH ×7 (00:02→22:17)
[2018-07-01] MEDS: D5% in Water 1,000 ML IVC SCH ×3 (01:02→17:52)
[2018-07-01] MEDS: Acyclovir 500 MG in D5% in Water 100 ML IVPB SCH (01:02)
[2018-07-01] MEDS: Artificial Tears SOLN 15 ML BOTTLE BOTH EYES SCH ×6 (03:26→23:56)
[2018-07-01 03:42] LABS: VBG Ionized Calcium 1.13 mmol/L (1.15-1.35)
[2018-07-01 03:48] LABS: Basophils % 0.3 %; Eosinophils # 0.3 K/mcL (0.0-0.6); Eosinophils % 1.6 %; Hematocrit 24.9 % (37.5-50.1); Hemoglobin 7.9 g/dL (12.9-16.9); Immature Granulocytes % 0.7 % (0-4); Lymphocytes # 1.9 K/mcL (0.6-4.6); Mean Corpuscular HGB Conc 31.7 g/dL (31.6-35.5); Mean Corpuscular Hemoglobin 32.4 pg (28.0-33.3); Monocytes # 0.8 K/mcL (0.0-1.3); Monocytes % 5.2 %; Neutrophils # 12.5 K/mcL (1.6-8.9); Platelet Count 112 K/mcL (140-400); Red Blood Count 2.44 M/mcL (4.19-5.50); Red Cell Distribution Width 17.2 % (11.5-14.5); Segmented Neutrophils % 80.2 %
[2018-07-01 04:04] LABS: Albumin 2.5 g/dL (3.5-5.7); Albumin/Globulin Ratio 0.7 (1.1-2.2); Bilirubin,Total 0.4 mg/dL (0.3-1.0); Calcium 8.3 mg/dL (8.6-10.3); Globulin 3.4 g/dL (2.4-3.5); Phosphorous 5.6 mg/dL (2.7-4.5); Potassium 3.2 mEq/L (3.5-5.1); Total Protein 5.9 g/dL (6.4-8.9)
[2018-07-01] MEDS: Insulin LISPRO 300 UNITS/3 ML VIAL SQ SCH ×6 (04:12→23:56)
[2018-07-01 04:24] LABS: Ferritin 647 ng/mL (20-250); Iron < 10 mcg/dL (65-175); Transferrin 146 mg/dL (203-362)
[2018-07-01 04:45] LABS: ABG Base Excess 7 mEq/L (-2 to 3); ABG HCO3 32 mEq/L (21-27); ABG Oxygen Saturation 91 % (95-98); ABG PCO2 46 mmHg (35-45); ABG PH 7.45 pH Units (7.32-7.45); ABG PO2 60 mmHg (85-104); ABG TCO2 33 mEq/L (20-26); Blood Gas Modality ASSIST CONTROL; Blood Gas PEEP 5 cm H2O; Blood Gas Respiration Rate 16; Blood Gas VT 500 cc
[2018-07-01 05:56] LABS: Platelet Estimate Normal (Normal); Reactive Lymphocytes Present (Not Present)
--- NOTE | 2018-07-01 06:46 | Neurology Progress Note ---
Date of Encounter: 07/01/18 Time of Encounter: 06:44 Assessment and Plan (1) Encephalopathy Current Visit: Yes Status: Acute Neurologically, he seems to be improving. Today he makes eye contact and makes obvious attempts to communicate with me. I find no focal or lateralized deficits. No evidence of stroke or central nervous system infection. At this point I will defer further management to the medical team. EEG and neuroimaging were negative as well. We will reevaluate him at your request. Subjective Principal diagnosis: septic shock Interval history: The chart was reviewed, the patient was seen and examined. Patient is lying in bed with his eyes open upon my entering. He does make eye contact. He is still intubated and restrained. He attempts to talk while on the ventilator. He does follow commands however not consistently. He previously withdrawals both feet to plantar stimulation. When I attempted to leave the bedside he weighs to me back over and started pointing to his ET tube. He is therefore alert enough to try communicate. I find no focal or lateralized deficits on examination. However from a neurologic perspective he is improved from our initial assessment. WBCs continue to trend downward. Objective - Constitutional Vitals: Temp Pulse Resp BP Pulse Ox 98.7 F 80 16 122/72 96 07/01/18 03:00 07/01/18 06:00 07/01/18 06:00 07/01/18 06:00 07/01/18 06:00 - Neurological Exam Sensorimotor examination: Present: other Motor Examination: Present: full strength in all major muscle groups, other ( Patient moves both upper extremities freely. He is restrained on both sides. He does have a good x ray operator on both sides. He is able to wiggle the toes minimally. He seems to have some paucity of movement of the lower extremities. However this may be due to a pre-existing condition. 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 Achilles reflexes however are diminished. There is no ankle clonus present. No Babinski present.) Mental Status Examination: Present: awake (Patient is awake alert ventilator, he was drowsy however. He is making eye contact with the examiner as well as other family members. He is attempting to talk while on the ventilator. He follows some simple commands however not all.), stupor Cranial nerve examination: Present: PERRL, EOMI, corneal reflexes brisk symmetrically, mastication intact, gag reflex intact Cranial Nerve Exam: pupil sluggish to react to light: Right (Both side ) - VTE Documentation of Mechanical Device: Intermittent pneumatic compression device Results - Laboratory Findings CBC and BMP: 07/01/18 03:00 07/01/18 03:00 Abnormal lab findings: Abnormal lab results WBC 15.6 K/mcL (4.3-11.1) H 07/01/18 03:00 RBC 2.44 M/mcL (4.19-5.50) L 07/01/18 03:00 Hgb 7.9 g/dL (12.9-16.9) L 07/01/18 03:00 Hct 24.9 % (37.5-50.1) L 07/01/18 03:00 MCV 102.0 fL (83.0-100.0) H 07/01/18 03:00 RDW 17.2 % (11.5-14.5) H 07/01/18 03:00 Plt Count 112 K/mcL (140-400) L 07/01/18 03:00 Band Neutrophils % 6.0 % (0-4) H 06/27/18 03:00 Metamyelocytes % 2.0 % (0) H 06/27/18 03:00 Myelocytes % 6.0 % (0) H 06/27/18 03:00 Neutrophils # 12.5 K/mcL (1.6-8.9) H 07/01/18 03:00 Nucleated RBCs/100 WBC 0.1 /100 WBC (0) H 06/28/18 03:30 Reactive Lymphocytes Present (Not Present) A 07/01/18 03:00 Toxic Granulation Present (Not Present) A 06/18/18 03:05 Toxic Vacuolation Present (Not Present) A 06/22/18 03:45 Large Platelets Present (Not Present) A 06/23/18 03:15 Polychromasia 1+ (Not Present) A 06/27/18 03:00 Basophilic Stippling 1+ (Not Present) A 06/26/18 04:00 Anisocytosis 1+ (Not Present) A 06/28/18 03:30 Macrocytosis Present (Not Present) A 06/26/18 04:00 PT 16.7 Seconds (9.4-12.1) H 06/22/18 03:45 APTT 62.8 Seconds (26.0-36.0) H 06/23/18 08:00 Fibrinogen 578 mg/dL (169-393) H 06/18/18 08:08 D-Dimer 3465 ng/mLFEU (0-500) H 06/18/18 08:08 ABG pCO2 46 mmHg (35-45) H 07/01/18 04:42 ABG pO2 60 mmHg (85-104) L 07/01/18 04:42 ABG HCO3 32 mEq/L (21-27) H 07/01/18 04:42 ABG Total CO2 33 mEq/L (20-26) H 07/01/18 04:42 ABG O2 Saturation 91 % (95-98) L 07/01/18 04:42 ABG Base Excess 7 mEq/L (-2 to 3) H 07/01/18 04:42 Sodium 156 mEq/L (136-145) H 07/01/18 03:00 Potassium 3.2 mEq/L (3.5-5.1) L 07/01/18 03:00 Chloride 116 mEq/L (98-107) H 07/01/18 03:00 Carbon Dioxide 31 mEq/L (23-29) H 07/01/18 03:00 BUN 32 mg/dL (6-20) H 07/01/18 03:00 Creatinine 2.53 mg/dL (0.70-1.30) H 07/01/18 03:00 Est GFR ( Amer) 32 (> 60) L 07/01/18 03:00 Est GFR (Non-Af Amer) 27 (> 60) L 07/01/18 03:00 Glucose 172 mg/dL (70-105) H 07/01/18 03:00 POC Glucose 178 mg/dL (70-99) H 06/30/18 22:33 Calculated Osmolality 333 (280-300) H 07/01/18 03:00 Calcium 8.3 mg/dL (8.6-10.3) L 07/01/18 03:00 Venous Ioniz Calcium 1.13 mmol/L (1.15-1.35) L 07/01/18 03:39 Phosphorus 5.6 mg/dL (2.7-4.5) H 07/01/18 03:00 Iron < 10 mcg/dL (65-175) L 07/01/18 03:00 Transferrin 146 mg/dL (203-362) L 07/01/18 03:00 Ferritin 647 ng/mL (20-250) H 07/01/18 03:00 Direct Bilirubin 0.4 mg/dL (0.0-0.2) H 06/23/18 03:15 AST 55 Units/L (13-39) H 07/01/18 03:00 Troponin I 0.92 ng/mL (< 0.04) H* 06/17/18 22:33 Serum Total Protein 5.9 g/dL (6.4-8.9) L 07/01/18 03:00 Albumin 2.5 g/dL (3.5-5.7) L 07/01/18 03:00 Albumin/Globulin Ratio 0.7 (1.1-2.2) L 07/01/18 03:00 Amylase 20 Units/L (29-103) L 06/23/18 16:27 Folate 2.5 ng/mL (3.0-16.0) L 06/27/18 11:25 Procalcitonin 107.11 ng/mL (<=0.07) H 06/17/18 16:40 TSH 7.234 mcIU/mL (0.340-5.600) H 06/27/18 11:25 Ur Specific [place] < 1.005 (1.010-1.025) L 06/30/18 09:34 Urine Blood Moderate (Negative) H 06/30/18 09:34 Ur Leukocyte Esterase Moderate (Negative) H 06/30/18 09:34 Urine Microscopic RBC 3-5 per hpf (0-3) H 06/30/18 09:34 Urine Microscopic WBC 50-100 per hpf (0-3) H 06/30/18 09:34 Urine Bacteria Many per hpf (None-Few) H 06/30/18 09:34 Protein/Creatinin Ratio 1.68 mg/mg (0.00-0.20) H 06/30/18 09:34 Urine Total Protein 52 mg/dL (1-14) H 06/30/18 09:34 Vancomycin Trough 18 mcg/mL (5-10) H 06/19/18 08:20 Urine Opiates Screen Positive ng/mL (Aeegcl=377) H 06/18/18 10:37 U Benzodiazepines Scrn Positive ng/mL (Tkvbki=367) H 06/18/18 10:37 HSV I DETECTED (Not Detect) A 06/24/18 15:10 Consult Discharge Plan - Plan Referrals: Sheryl Stahl, [employer] SUPER[employer] [Primary Care Provider] -
--- NOTE | 2018-07-01 07:25 | Pulmonology Progress Note ---
<JonasMaximo W - Last Filed: 07/01/18 09:26> Date of Encounter: 07/01/18 Objective PUL Vital signs: Last Vital Signs Temp 100.1 F H 07/01/18 07:35 Pulse 85 07/01/18 09:00 Resp 25 07/01/18 09:00 BP 121/65 07/01/18 09:00 Pulse Ox 98 07/01/18 09:00 Ventilator Settings Ventilator Settings: Ventilator Settings, Last 8 Hours Ventilator Tidal Volume 500 Setting Ventilator Tidal Volume 500 Setting Ventilator Tidal Volume 500 Setting Ventilator Tidal Volume 500 Setting Ventilator Tidal Volume 500 Setting Ventilator Tidal Volume 500 Setting Ventilator Tidal Volume 500 Setting Ventilator Tidal Volume 500 Setting Ventilator Tidal Volume 500 Setting Ventilator Tidal Volume 500 Setting Ventilator Respiratory Rate 16 Setting Ventilator Respiratory Rate 16 Setting Ventilator Respiratory Rate 16 Setting Ventilator Respiratory Rate 16 Setting Ventilator Respiratory Rate 16 Setting Ventilator Respiratory Rate 16 Setting Ventilator Respiratory Rate 16 Setting Ventilator Respiratory Rate 16 Setting Ventilator Respiratory Rate 16 Setting Ventilator Respiratory Rate 16 Setting Actual Respiratory Rate 16 Actual Respiratory Rate 16 Actual Respiratory Rate 16 Actual Respiratory Rate 16 Actual Respiratory Rate 16 Actual Respiratory Rate 16 Actual Respiratory Rate 16 Actual Respiratory Rate 16 Positive End Expiratory 5 Pressure Positive End Expiratory 5 Pressure Positive End Expiratory 5 Pressure Positive End Expiratory 5 Pressure Positive End Expiratory 5 Pressure Positive End Expiratory 5 Pressure Positive End Expiratory 5 Pressure Positive End Expiratory 5 Pressure Positive End Expiratory 5 Pressure Positive End Expiratory 5 Pressure Peak Inspiratory Airway 29 Pressure Peak Inspiratory Airway 31 Pressure Peak Inspiratory Airway 37 Pressure Peak Inspiratory Airway 36 Pressure Peak Inspiratory Airway 36 Pressure Peak Inspiratory Airway 33 Pressure Peak Inspiratory Airway 36 Pressure Peak Inspiratory Airway 33 Pressure Peak Inspiratory Airway 33 Pressure Results - Laboratory Findings CBC and BMP: 07/01/18 03:00 07/01/18 03:00 ABG ABG pH 7.45 pH Units (7.32-7.45) 07/01/18 04:42 ABG pCO2 46 mmHg (35-45) H 07/01/18 04:42 ABG pO2 60 mmHg (85-104) L 07/01/18 04:42 ABG O2 Saturation 91 % (95-98) L 07/01/18 04:42 PT/INR, D-dimer PT 16.7 Seconds (9.4-12.1) H 06/22/18 03:45 D-Dimer 3465 ng/mLFEU (0-500) H 06/18/18 08:08 Abnormal lab findings: Abnormal lab results WBC 15.6 K/mcL (4.3-11.1) H 07/01/18 03:00 RBC 2.44 M/mcL (4.19-5.50) L 07/01/18 03:00 Hgb 7.9 g/dL (12.9-16.9) L 07/01/18 03:00 Hct 24.9 % (37.5-50.1) L 07/01/18 03:00 MCV 102.0 fL (83.0-100.0) H 07/01/18 03:00 RDW 17.2 % (11.5-14.5) H 07/01/18 03:00 Plt Count 112 K/mcL (140-400) L 07/01/18 03:00 Band Neutrophils % 6.0 % (0-4) H 06/27/18 03:00 Metamyelocytes % 2.0 % (0) H 06/27/18 03:00 Myelocytes % 6.0 % (0) H 06/27/18 03:00 Neutrophils # 12.5 K/mcL (1.6-8.9) H 07/01/18 03:00 Nucleated RBCs/100 WBC 0.1 /100 WBC (0) H 06/28/18 03:30 Reactive Lymphocytes Present (Not Present) A 07/01/18 03:00 Toxic Granulation Present (Not Present) A 06/18/18 03:05 Toxic Vacuolation Present (Not Present) A 06/22/18 03:45 Large Platelets Present (Not Present) A 06/23/18 03:15 Polychromasia 1+ (Not Present) A 06/27/18 03:00 Basophilic Stippling 1+ (Not Present) A 06/26/18 04:00 Anisocytosis 1+ (Not Present) A 06/28/18 03:30 Macrocytosis Present (Not Present) A 06/26/18 04:00 PT 16.7 Seconds (9.4-12.1) H 06/22/18 03:45 APTT 62.8 Seconds (26.0-36.0) H 06/23/18 08:00 Fibrinogen 578 mg/dL (169-393) H 06/18/18 08:08 D-Dimer 3465 ng/mLFEU (0-500) H 06/18/18 08:08 ABG pCO2 46 mmHg (35-45) H 07/01/18 04:42 ABG pO2 60 mmHg (85-104) L 07/01/18 04:42 ABG HCO3 32 mEq/L (21-27) H 07/01/18 04:42 ABG Total CO2 33 mEq/L (20-26) H 07/01/18 04:42 ABG O2 Saturation 91 % (95-98) L 07/01/18 04:42 ABG Base Excess 7 mEq/L (-2 to 3) H 07/01/18 04:42 Sodium 156 mEq/L (136-145) H 07/01/18 03:00 Potassium 3.2 mEq/L (3.5-5.1) L 07/01/18 03:00 Chloride 116 mEq/L (98-107) H 07/01/18 03:00 Carbon Dioxide 31 mEq/L (23-29) H 07/01/18 03:00 BUN 32 mg/dL (6-20) H 07/01/18 03:00 Creatinine 2.53 mg/dL (0.70-1.30) H 07/01/18 03:00 Est GFR ( Amer) 32 (> 60) L 07/01/18 03:00 Est GFR (Non-Af Amer) 27 (> 60) L 07/01/18 03:00 Glucose 172 mg/dL (70-105) H 07/01/18 03:00 POC Glucose 183 mg/dL (70-99) H 07/01/18 07:28 Calculated Osmolality 333 (280-300) H 07/01/18 03:00 Calcium 8.3 mg/dL (8.6-10.3) L 07/01/18 03:00 Venous Ioniz Calcium 1.13 mmol/L (1.15-1.35) L 07/01/18 03:39 Phosphorus 5.6 mg/dL (2.7-4.5) H 07/01/18 03:00 Iron < 10 mcg/dL (65-175) L 07/01/18 03:00 Transferrin 146 mg/dL (203-362) L 07/01/18 03:00 Ferritin 647 ng/mL (20-250) H 07/01/18 03:00 Direct Bilirubin 0.4 mg/dL (0.0-0.2) H 06/23/18 03:15 AST 55 Units/L (13-39) H 07/01/18 03:00 Troponin I 0.92 ng/mL (< 0.04) H* 06/17/18 22:33 Serum Total Protein 5.9 g/dL (6.4-8.9) L 07/01/18 03:00 Albumin 2.5 g/dL (3.5-5.7) L 07/01/18 03:00 Albumin/Globulin Ratio 0.7 (1.1-2.2) L 07/01/18 03:00 Amylase 20 Units/L (29-103) L 06/23/18 16:27 Folate 2.5 ng/mL (3.0-16.0) L 06/27/18 11:25 Procalcitonin 107.11 ng/mL (<=0.07) H 06/17/18 16:40 TSH 7.234 mcIU/mL (0.340-5.600) H 06/27/18 11:25 Ur Specific [place] < 1.005 (1.010-1.025) L 06/30/18 09:34 Urine Blood Moderate (Negative) H 06/30/18 09:34 Ur Leukocyte Esterase Moderate (Negative) H 06/30/18 09:34 Urine Microscopic RBC 3-5 per hpf (0-3) H 06/30/18 09:34 Urine Microscopic WBC 50-100 per hpf (0-3) H 06/30/18 09:34 Urine Bacteria Many per hpf (None-Few) H 06/30/18 09:34 Protein/Creatinin Ratio 1.68 mg/mg (0.00-0.20) H 06/30/18 09:34 Urine Total Protein 52 mg/dL (1-14) H 06/30/18 09:34 Vancomycin Trough 18 mcg/mL (5-10) H 06/19/18 08:20 Urine Opiates Screen Positive ng/mL (Uykmqj=375) H 06/18/18 10:37 U Benzodiazepines Scrn Positive ng/mL (Dyhmih=045) H 06/18/18 10:37 HSV I DETECTED (Not Detect) A 06/24/18 15:10 - Microbiology Findings Microbiology Findings: Microbiology, Last 48 Hours 06/24/18 11:35 Blood Culture - Final Peripheral Venipuncture No growth. Final report. 06/24/18 11:35 Blood Culture - Final Peripheral Venipuncture No growth. Final report. - Clinical Findings Intake & Output: Intake & Output 06/30/18 07/01/18 07/01/18 23:59 07:59 15:59 Intake Total 1860 / 1860 1840 / 1840 1000 / 1000 Output Total 1200 / 1200 1300 / 1300 Balance 660 / 660 540 / 540 1000 / 1000 Weight 116 kg Consult Discharge Plan - Plan Referrals: Sheryl Stahl, [employer]ER [Primary Care Provider] - - Attending Attestation I examined this patient and my medical decision-making was reviewed with the Resident Physician. I agree with the documented findings, disposition and treatment plan as described except to the extent set forth below. We independently had [id number] contact with the patient Patient seen and examined at bedside Labs, radiology, chart personally reviewed. Management was reviewed during multidisciplinary critical care rounds. [employer]: The patient remains delirious but is able to follow commands he is exhibiting hyperactive periods where he becomes agitated this is been generally well controlled with the Precedex low-dose infusion of fentanyl there is no focal neurological deficit Pulm: Acceptable gas exchange today on vent doing well on CPAP trial planned for liberation to BiPAP Cards: Blood pressure monitored and stable today GI: Continue GI prophylaxis Nutrition: Nothing by mouth for now pending liberation Renal: Polyuric LUCILA is stable. Hypernatremia improving with D5 and free water administration hopefully patient's mental state also improved to take by mouth and will be further correction of this problem this is likely from volume loss from the post diuretic phase of ATN in his intake and output is currently being managed nephrology following UOP Monitored, Cont to Trend sCr and monitor Electrolytes. 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 Lines: All lines examined without evidence of infection : Dispo: Remain in ICU CODE: Full Code I updated the his and daughter at bedside <Bonnie Cummins - Last Filed: 07/01/18 10:53> Date of Encounter: 07/01/18 Time of Encounter: 08:23 Assessment and Plan (1) Septic shock Current Visit: Yes Status: Acute sepsis suspected secondary to karo fungemia. Currently on Precedex and fentanyl, nephrology would like him to do his full 3 hours of dialysis intake 2 L of fluid off the Levophed during dialysis if needed for pressure support and then weaned back off. MAP this morning 62. On fluconazole for fungemia, possible from UTI. Acyclovir started 06/25/18 for possible herpes encephalitis. No growth on repeat cultures from 06/19/18. New cultures were drawn on 06/24/18 showed no growth. MRI brain unremarkable, no acute intracranial abnormalities. CT scan 06/23/18 showed thickening of the bladder wall possibly due to cystitis. Small bilateral pleural effusions with bibasilar pulmonary airspace opacities, favored to be atelectasis, sludge within the gallbladder. Mildly enlarged anterior mediastinal lymphnode and peripancreatic nodes, may be reactive. Neuro consulted last week due to patient's mental status, not following commands , only arousable to noctious stimuli. They recommending continuing acyclovir, plan on EEG, and will analyze Blood work. They will continue to monitor. Patient today follows commands and is awake. Bowel sounds today are soft, will continue to monitor- Consult to Speech Therapy for swallow study Will continue Fluconazole and acyclovir today, discuss decrease in acyclovir pending ID and neuro recommendations (2) Acute respiratory failure with hypoxemia Current Visit: Yes Status: Acute Patient was extubated today and put on bipap. Will continue to monitor respiratory status. (3) Oral lesion Current Visit: Yes Status: Acute Noted on tongue PCR positive for HSV1 Continue acyclovir (4) COPD (chronic obstructive pulmonary disease) Current Visit: Yes Status: Chronic Patient extubated and on bipap, continue to monitor Duoneb for shortness of breath and wheezing Qualifiers: Qualified Code(s): J43.9 - Emphysema, unspecified (5) Systolic heart failure Current Visit: Yes Status: Acute MAP today 85. Continue to monitor keep MAP above 60. Qualifiers: Qualified Code(s): I50.20 - Unspecified systolic (congestive) heart failure (6) LUCILA (acute kidney injury) Current Visit: Yes Status: Acute Nephrology following. Patient on intermittent dialysis. Hypernatreima with free water deficit possibly due to polyuric phase of renal recovery, will continue to monitor Urine output yesterday 173 ml/hour, today 163 mls/hr Continue to monitor (7) Hypocalcemia Current Visit: Yes Status: Acute Continue to monitor. Calcium today at 8.3. Replace if necessary (8) Hypernatremia Current Visit: Yes Status: Acute Nephrology on board Possibly due to polyuric phase of renal recovery D5 at 125 ml per hour, free water 200ml every 4 hours Continue sodium checks and monitoring neurologic status (9) Hypokalemia Current Visit: Yes Status: Resolved resolved, today potassium is 3.2, decreased from 3.7 yesterday Continue to monitor and replace as necessary (10) Encephalopathy Current Visit: Yes Status: Acute Neuro on board, believed to be from toxic metabolic causes. Continue antifungal and acyclovir (11) Thrombocytopenia Current Visit: Yes Status: Resolved Platelets slightly decreased today to 112. Continue to monitor. 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 No heparin was in use in the lines which could have caused the excessive clotting on dialysis filter. Also, platelet count could have been decreased do to septic shock. Heparin was held over korin weekend, restarted today due to platelets staying steadily in the low 100's (13) Type 2 diabetes mellitus Current Visit: Yes Status: Chronic Switched to subcutaneous insulin medium sliding scale q4 Qualifiers: Qualified Code(s): E11.8 - Type 2 diabetes mellitus with unspecified complications; Z79.4 - MCC (current) use of insulin (14) DVT prophylaxis Current Visit: Yes Status: Acute ECPDs Heparin 5000 units sub q Subjective Principal diagnosis: septic shock Interval history: Mr. Mccarthy was seen at bedside this morning. He is sedated and intubated and on ventilator. Has malina been extubated and put on Bipap. Creatinine increased to 2.53, nephrology following and will be doing intermediate dialysis. WBC count decreased from yesterday. ABGs show pH 7.45, inspired O2 was raised to 45 until extubation. 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 Neuro consulted for mental status and possible herpes encephalitis. Heparin was held for possible HIT but platelets have stayed steady and heparin will be restarted for DVT prophylaxis. Objective PUL Vital signs: Last Vital Signs Temp 98.7 F 07/01/18 03:00 Pulse 75 07/01/18 07:00 Resp 16 07/01/18 07:15 BP 119/79 07/01/18 07:00 Pulse Ox 92 07/01/18 07:15 General appearance: other (EAsily awoke, follows commands, nods head to qeustions) Eyes: nonicteric, injected (slightly injected this morning) ENT: oropharynx dry Neck: no lymphadenopathy Auscultation: bilateral: diminished breath sounds (lung bases), wheezes ( inspiratory) Cardiovascular: regular rate and rhythm Gastrointestinal: hypoactive bowel sounds, non-tender Integumentary: normal Extremities: no edema, pink and warm, edema (1+ pitting bilateral feet) Ventilator Settings Ventilator Settings: Ventilator Settings, Last 8 Hours Ventilator Tidal Volume 500 Setting Ventilator Tidal Volume 500 Setting Ventilator Tidal Volume 500 Setting Ventilator Tidal Volume 500 Setting Ventilator Tidal Volume 500 Setting Ventilator Tidal Volume 500 Setting Ventilator Tidal Volume 500 Setting Ventilator Tidal Volume 500 Setting Ventilator Tidal Volume 500 Setting Ventilator Tidal Volume 500 Setting Ventilator Tidal Volume 500 Setting Ventilator Tidal Volume 500 Setting Ventilator Tidal Volume 500 Setting Ventilator Tidal Volume 500 Setting Ventilator Respiratory Rate 16 Setting Ventilator Respiratory Rate 16 Setting Ventilator Respiratory Rate 16 Setting Ventilator Respiratory Rate 16 Setting Ventilator Respiratory Rate 16 Setting Ventilator Respiratory Rate 16 Setting Ventilator Respiratory Rate 16 Setting Ventilator Respiratory Rate 16 Setting Ventilator Respiratory Rate 16 Setting Ventilator Respiratory Rate 16 Setting Ventilator Respiratory Rate 16 Setting Ventilator Respiratory Rate 16 Setting Ventilator Respiratory Rate 16 Setting Ventilator Respiratory Rate 16 Setting Actual Respiratory Rate 16 Actual Respiratory Rate 16 Actual Respiratory Rate 16 Actual Respiratory Rate 16 Actual Respiratory Rate 16 Actual Respiratory Rate 16 Actual Respiratory Rate 16 Actual Respiratory Rate 16 Actual Respiratory Rate 16 Actual Respiratory Rate 16 Actual Respiratory Rate 16 Actual Respiratory Rate 16 Positive End Expiratory 5 Pressure Positive End Expiratory 5 Pressure Positive End Expiratory 5 Pressure Positive End Expiratory 5 Pressure Positive End Expiratory 5 Pressure Positive End Expiratory 5 Pressure Positive End Expiratory 5 Pressure Positive End Expiratory 5 Pressure Positive End Expiratory 5 Pressure Positive End Expiratory 5 Pressure Positive End Expiratory 5 Pressure Positive End Expiratory 5 Pressure Positive End Expiratory 5 Pressure Positive End Expiratory 5 Pressure Peak Inspiratory Airway 29 Pressure Peak Inspiratory Airway 31 Pressure Peak Inspiratory Airway 37 Pressure Peak Inspiratory Airway 36 Pressure Peak Inspiratory Airway 36 Pressure Peak Inspiratory Airway 33 Pressure Peak Inspiratory Airway 36 Pressure Peak Inspiratory Airway 33 Pressure Peak Inspiratory Airway 33 Pressure Peak Inspiratory Airway 33 Pressure Peak Inspiratory Airway 34 Pressure Peak Inspiratory Airway 34 Pressure Peak Inspiratory Airway 34 Pressure Results - Laboratory Findings CBC and BMP: 07/01/18 03:00 07/01/18 03:00 ABG ABG pH 7.45 pH Units (7.32-7.45) 07/01/18 04:42 ABG pCO2 46 mmHg (35-45) H 07/01/18 04:42 ABG pO2 60 mmHg (85-104) L 07/01/18 04:42 ABG O2 Saturation 91 % (95-98) L 07/01/18 04:42 PT/INR, D-dimer PT 16.7 Seconds (9.4-12.1) H 06/22/18 03:45 D-Dimer 3465 ng/mLFEU (0-500) H 06/18/18 08:08 Abnormal lab findings: Abnormal lab results WBC 15.6 K/mcL (4.3-11.1) H 07/01/18 03:00 RBC 2.44 M/mcL (4.19-5.50) L 07/01/18 03:00 Hgb 7.9 g/dL (12.9-16.9) L 07/01/18 03:00 Hct 24.9 % (37.5-50.1) L 07/01/18 03:00 MCV 102.0 fL (83.0-100.0) H 07/01/18 03:00 RDW 17.2 % (11.5-14.5) H 07/01/18 03:00 Plt Count 112 K/mcL (140-400) L 07/01/18 03:00 Band Neutrophils % 6.0 % (0-4) H 06/27/18 03:00 Metamyelocytes % 2.0 % (0) H 06/27/18 03:00 Myelocytes % 6.0 % (0) H 06/27/18 03:00 Neutrophils # 12.5 K/mcL (1.6-8.9) H 07/01/18 03:00 Nucleated RBCs/100 WBC 0.1 /100 WBC (0) H 06/28/18 03:30 Reactive Lymphocytes Present (Not Present) A 07/01/18 03:00 Toxic Granulation Present (Not Present) A 06/18/18 03:05 Toxic Vacuolation Present (Not Present) A 06/22/18 03:45 Large Platelets Present (Not Present) A 06/23/18 03:15 Polychromasia 1+ (Not Present) A 06/27/18 03:00 Basophilic Stippling 1+ (Not Present) A 06/26/18 04:00 Anisocytosis 1+ (Not Present) A 06/28/18 03:30 Macrocytosis Present (Not Present) A 06/26/18 04:00 PT 16.7 Seconds (9.4-12.1) H 06/22/18 03:45 APTT 62.8 Seconds (26.0-36.0) H 06/23/18 08:00 Fibrinogen 578 mg/dL (169-393) H 06/18/18 08:08 D-Dimer 3465 ng/mLFEU (0-500) H 06/18/18 08:08 ABG pCO2 46 mmHg (35-45) H 07/01/18 04:42 ABG pO2 60 mmHg (85-104) L 07/01/18 04:42 ABG HCO3 32 mEq/L (21-27) H 07/01/18 04:42 ABG Total CO2 33 mEq/L (20-26) H 07/01/18 04:42 ABG O2 Saturation 91 % (95-98) L 07/01/18 04:42 ABG Base Excess 7 mEq/L (-2 to 3) H 07/01/18 04:42 Sodium 156 mEq/L (136-145) H 07/01/18 03:00 Potassium 3.2 mEq/L (3.5-5.1) L 07/01/18 03:00 Chloride 116 mEq/L (98-107) H 07/01/18 03:00 Carbon Dioxide 31 mEq/L (23-29) H 07/01/18 03:00 BUN 32 mg/dL (6-20) H 07/01/18 03:00 Creatinine 2.53 mg/dL (0.70-1.30) H 07/01/18 03:00 Est GFR ( Amer) 32 (> 60) L 07/01/18 03:00 Est GFR (Non-Af Amer) 27 (> 60) L 07/01/18 03:00 Glucose 172 mg/dL (70-105) H 07/01/18 03:00 POC Glucose 178 mg/dL (70-99) H 06/30/18 22:33 Calculated Osmolality 333 (280-300) H 07/01/18 03:00 Calcium 8.3 mg/dL (8.6-10.3) L 07/01/18 03:00 Venous Ioniz Calcium 1.13 mmol/L (1.15-1.35) L 07/01/18 03:39 Phosphorus 5.6 mg/dL (2.7-4.5) H 07/01/18 03:00 Iron < 10 mcg/dL (65-175) L 07/01/18 03:00 Transferrin 146 mg/dL (203-362) L 07/01/18 03:00 Ferritin 647 ng/mL (20-250) H 07/01/18 03:00 Direct Bilirubin 0.4 mg/dL (0.0-0.2) H 06/23/18 03:15 AST 55 Units/L (13-39) H 07/01/18 03:00 Troponin I 0.92 ng/mL (< 0.04) H* 06/17/18 22:33 Serum Total Protein 5.9 g/dL (6.4-8.9) L 07/01/18 03:00 Albumin 2.5 g/dL (3.5-5.7) L 07/01/18 03:00 Albumin/Globulin Ratio 0.7 (1.1-2.2) L 07/01/18 03:00 Amylase 20 Units/L (29-103) L 06/23/18 16:27 Folate 2.5 ng/mL (3.0-16.0) L 06/27/18 11:25 Procalcitonin 107.11 ng/mL (<=0.07) H 06/17/18 16:40 TSH 7.234 mcIU/mL (0.340-5.600) H 06/27/18 11:25 Ur Specific [place] < 1.005 (1.010-1.025) L 06/30/18 09:34 Urine Blood Moderate (Negative) H 06/30/18 09:34 Ur Leukocyte Esterase Moderate (Negative) H 06/30/18 09:34 Urine Microscopic RBC 3-5 per hpf (0-3) H 06/30/18 09:34 Urine Microscopic WBC 50-100 per hpf (0-3) H 06/30/18 09:34 Urine Bacteria Many per hpf (None-Few) H 06/30/18 09:34 Protein/Creatinin Ratio 1.68 mg/mg (0.00-0.20) H 06/30/18 09:34 Urine Total Protein 52 mg/dL (1-14) H 06/30/18 09:34 Vancomycin Trough 18 mcg/mL (5-10) H 06/19/18 08:20 Urine Opiates Screen Positive ng/mL (Tfapkf=072) H 06/18/18 10:37 U Benzodiazepines Scrn Positive ng/mL (Bpkcmn=681) H 06/18/18 10:37 HSV I DETECTED (Not Detect) A 06/24/18 15:10 - Microbiology Findings Microbiology Findings: Microbiology, Last 48 Hours 06/24/18 11:35 Blood Culture - Final Peripheral Venipuncture No growth. Final report. 06/24/18 11:35 Blood Culture - Final Peripheral Venipuncture No growth. Final report. - Clinical Findings Intake & Output: Intake & Output 06/30/18 06/30/18 07/01/18 15:59 23:59 07:59 Intake Total 500 / 500 1860 / 1860 1310 / 1310 Output Total 1025 / 1025 1200 / 1200 600 / 600 Balance -525 / -525 660 / 660 710 / 710 Weight 116 kg - VTE Documentation of Mechanical Device: Intermittent pneumatic compression device
[2018-07-01] MEDS: Nystatin SUSP 5 ML UD.LIQ PO SCH ×4 (08:10→20:01)
[2018-07-01] MEDS: Chlorhexidine Rinse 15 ML MOUTHWASH MM SCH ×2 (08:10→20:01)
--- NOTE | 2018-07-01 08:55 | Nephrology Progress Note ---
Date of Encounter: 07/01/18 Time of Encounter: 09:40 - Assessment and Plan (1) LUCILA (acute kidney injury) Current Visit: Yes Status: Acute Polyuric LUCILA, last hemodialysis on Saturday In the past 24 hours the patient has continued to put out over 5 L of urine His labs demonstrate significant free water deficit of 8 L with hypernatremia of 156, and creatinine 2.53 despite 125mLs/hr D5W + 200mL Free water per OG q4h Suspect that this is most likely due to polyuric phase of renal recovery, however consider central or drug induced diabetes insipidus as a differential as well UA did demonstrate 50-100 WBCs and many bacteria. Urine Protein:Creatinine ratio 1.7 Plan -Hold on hemodialysis today, consider tomorrow if necessary -Check serum and urine osmolality, urine eosinophils, urine culture -Continue D5 water to 125 mL an hour. OG tube has been removed, patient requires 4L Free water today. Primaryh team agrees to give orally at this time. -Consider DDAVP if free water and insufficient (2) Hypernatremia Current Visit: Yes Status: Acute Likely secondary to free water deficit in the setting of polyuric phase of renal recovery Diabetes insipidus does remain on the differential as well Plan as above (3) Acute respiratory failure with hypoxemia Current Visit: Yes Status: Acute Improved from prior, patient successfully extubated today Per primary critical team (4) Anemia Current Visit: Yes Status: Acute Severe iron deficiency anemia Transfusion parameters per primary team Qualifiers: Anemia type: iron deficiency Iron deficiency anemia type: unspecified iron deficiency Qualified Code(s): D50.9 - Iron deficiency anemia, unspecified Subjective Principal diagnosis: septic shock Interval history: The patient is resting in bed on BiPAP today. He has been successfully extubated this morning and is resting comfortably. He still remains cognitively depressed however he does follow basic commands. Objective - Vital Signs Vital signs: Vital Signs Temp Pulse Resp BP Pulse Ox 07/01/18 08:00 81 22 117/69 97 07/01/18 07:49 27 94 07/01/18 07:48 94 07/01/18 07:46 24 94 07/01/18 07:35 100.1 F H 07/01/18 07:15 16 92 07/01/18 07:00 77 16 119/79 92 07/01/18 06:00 80 16 122/72 96 07/01/18 05:07 16 122/72 93 07/01/18 05:00 63 16 122/72 94 07/01/18 04:00 68 16 117/68 94 07/01/18 03:48 16 117/68 93 07/01/18 03:00 98.7 F 62 16 110/68 94 07/01/18 02:00 63 16 113/65 94 07/01/18 01:06 16 112/76 94 07/01/18 01:00 65 16 112/66 94 07/01/18 00:00 64 16 126/72 93 06/30/18 23:36 16 139/95 93 06/30/18 23:00 99.5 F 72 16 115/67 93 06/30/18 22:00 80 17 115/65 93 06/30/18 21:15 16 108/62 92 06/30/18 21:00 65 16 108/62 94 06/30/18 20:00 71 16 124/73 92 06/30/18 19:38 16 124/73 92 06/30/18 19:00 99.4 F 64 16 121/69 93 06/30/18 18:00 66 16 119/69 91 06/30/18 17:09 16 122/71 92 06/30/18 17:00 68 16 113/66 92 06/30/18 16:00 66 16 121/66 92 06/30/18 15:35 16 122/76 92 06/30/18 15:27 99.9 F H 06/30/18 15:00 99.9 F H 72 16 122/69 92 06/30/18 14:00 73 16 103/68 93 06/30/18 13:30 16 113/66 92 06/30/18 13:00 72 16 108/68 82 06/30/18 12:00 72 16 103/79 93 06/30/18 11:51 99.7 F H 06/30/18 11:24 16 123/75 94 06/30/18 11:00 99.7 F H 78 18 119/75 93 06/30/18 10:00 77 18 108/71 93 06/30/18 09:59 23 116/70 90 06/30/18 09:00 74 20 107/60 91 Intake and Output 06/30/18 07/01/18 07/01/18 23:59 07:59 15:59 Intake Total 1860 / 1860 1810 / 1810 Output Total 1200 / 1200 1300 / 1300 Balance 660 / 660 510 / 510 Intake: IV Fluids 1460 / 1460 1410 / 1410 Dextrose 5% 1,000 ML @ 125 mls/ 1000 / 1000 1000 / 1000 hr IVC .Q8H NADIA Rx#:[id number] PRECEDEX Premix 400 mcg In 100 200 / 200 300 / 300 ml @ 0.2 MCG/KG/HR 6.65 mls/hr IVC .Q15H3M NADIA Rx#:[id number] FentaNYL (PF) 2,500 MCG In 50 / 50 Empty Bag 1 Each @ 50 MCG/HR 1 mls/hr IVC CONT NADIA Rx#: [id number] Zovirax 500 MG In Dextrose 5% 110 / 110 110 / 110 100 ML @ 110 mls/hr IVPB Q12H NADIA Rx#:[id number] Diflucan Premix 200 MG/100 ML 100 / 100 200 mg In 100 ml @ 100 mls/hr IVPB Q24H NADIA Rx#:[id number] Free Water 400 / 400 400 / 400 Output: Catheter 1200 / 1200 1300 / 1300 Other: Weight 116 kg Blood Glucose* 183 - General Appearance Exam: Gen: Vitals noted. No acute distress. On BiPAP HEENT: Normocephalic, atraumatic. Dry mucous membranes. Neck: Supple. No adenopathy. Right internal jugular temporary hemodialysis catheter in place with no erythema surrounding Cardiac: RRR, no murmur, +S1/S2 Pulmonary: Clear to auscultation bilaterally Abdomen: soft, nontender, no guarding Extremities: 2+ bilateral lower extremity edema, nontender calf, no cyanosis or clubbing Neuro: Patient has been extubated and is largely off sedation. Follows commands. - Lab 07/01/18 03:00 07/01/18 03:00 Most recent lab results ABG pH 7.45 pH Units (7.32-7.45) 07/01/18 04:42 ABG pCO2 46 mmHg (35-45) H 07/01/18 04:42 ABG pO2 60 mmHg (85-104) L 07/01/18 04:42 ABG HCO3 32 mEq/L (21-27) H 07/01/18 04:42 ABG O2 Saturation 91 % (95-98) L 07/01/18 04:42 Calcium 8.3 mg/dL (8.6-10.3) L 07/01/18 03:00 Phosphorus 5.6 mg/dL (2.7-4.5) H 07/01/18 03:00 Magnesium 2.0 mg/dL (1.6-2.6) 07/01/18 03:00 Urine Creatinine 31 mg/dL 06/30/18 09:34 Urine Sodium 40.6 mEq/L 06/30/18 09:34 Urine Total Protein 52 mg/dL (1-14) H 06/30/18 09:34 - VTE Documentation of Mechanical Device: Intermittent pneumatic compression device Consult Discharge Plan - Plan Referrals: Sheryl Stahl [employer] [Primary Care Provider] -
[2018-07-01] MEDS: Pantoprazole 40 MG VIAL IVP SCH (09:12)
--- NOTE | 2018-07-01 10:46 | Infectious Disease Progress No ---
Date of Encounter: 07/01/18 Time of Encounter: 09:50 - Assessment and Plan (1) Septic shock Current Visit: Yes Status: Acute The patient had 4 SIRS criteria plus lactic acidosis, acute kidney injury, acute encephalopathy, and hypotension requiring vasopressors. Likely secondary to candidemia, UTI, possible HSV encephalitis. Improved. Leukocytosis improved today. Hypothermia resolved, but did have Tmax 101.4 over the weekend. Tachycardia resolved. Acute kidney injury improved initially, but serum creatinine on the rise. Blood cultures obtained 06/17/18 are +2 out of 2 sets for Marisela albicans, nation- sensitive. Repeat blood cultures obtained 06/19/18 are negative 2 sets. Etiology of worsening leukocytosis unclear. He did receive 4 days of steroids, which were stopped 06/19/18: lag vs. other. Continue to trend. Etiology of new fever over the weekend unclear: PNA vs. other. Will discuss CXR results with pulmonary to see if they think adding back antibiotic coverage is warranted. (2) Candidemia Current Visit: Yes Status: Acute Causative organism: Marisela albicans. Source: unclear. CT of the abdomen and pelvis is negative. He has no indwelling lines or catheters. His urine culture is positive for C. albicans. Blood cultures obtained 06/17/18 are +2 out of 2 sets for Marisela albicans, nation- sensitive. Repeat blood cultures obtained 06/19/18 are negative 2 sets. Continue fluconazole 200mg IV daily. Dose-adjusted for diminished CrCl. (day 13) Repeat LFTs normal. Duration of treatment depends on the clinical picture. Monitor liver function tests closely. Recommend ophthalmology to evaluate once patient stabilizes. (3) Pneumonia Current Visit: Yes Status: Suspected Location: Bilateral lower lobes. Causative organism: Unclear. Consider aspiration since the patient had altered mental status and was recently intubated. CT of the chest showed bilateral lower lobe infiltrates versus atelectasis. The patient does have a large amount of secretions coming from his ET tube. Discussed with the pulmonary team. Concern for pneumonia from their standpoint. MRSA screen completed 06/17/18 is negative. Sputum culture is NGTD. Check S. pneumo and Legionella UAT.--> negative. Check RIP.--> negative. Repeat CXR 06/23/18 showed mild pulmonary vascular congestion and atelectasis and mild pleural effusion at the right lung base, increased. CT scan of the chest 06/23/18 negative for PNA. CXR 07/01/18 showed stable RLL disease and improved LLL disease. Will discuss results with pulmonary. Not clear if this is pneumonia vs. edema vs. atelectasis. Vanc and Zosyn discontinued 06/25/18 after 9 days. May need to consider re- adding antibiotic coverage given the onset of fever over the weekend. Will discuss with the pulm/CC team. Qualifiers: Pneumonia type: due to unspecified organism Laterality: bilateral Lung location: lower lobe of lung Qualified Code(s): J18.1 - Lobar pneumonia, unspecified organism (4) UTI (urinary tract infection) Current Visit: Yes Status: Acute Causative organism: C. albicans. Per the patient's , asymptomatic prior to admission. Continue fluconazole as above. Qualifiers: Urinary tract infection type: site unspecified Hematuria presence: without hematuria Qualified Code(s): N39.0 - Urinary tract infection, site not specified (5) Encephalopathy Current Visit: Yes Status: Acute Etiology unclear, but likely related to sepsis. Per the patient's , the patient did have any complaints of neck pain, stiffness, or headache. Unable to assess mental status since the patient remains intubated and sedated. CT head negative for intracranial abnormality. 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 LP attempted by the pulm/CC team and IR was unsuccessful. Neurology consulted. Appreciate recommendations. Continue Acyclovir for now (day 7). LFTs remain normal. Duration of treatment depends on the clinical picture. (6) LUCILA (acute kidney injury) Current Visit: Yes Status: Acute Likely multifactorial: sepsis + hypotension + other. CRRT started 06/19/18 and stopped 06/26/18. Creatinine improved initially, but trending back up. Urine output remains adequate. Nephrology consulted and following. Continue to trend. Dose-adjust medications. (7) Lactic acidosis Current Visit: Yes Status: Resolved Likely secondary to sepsis. Resolved. (8) Thrombocytopenia Current Visit: Yes Status: Resolved Likely secondary to sepsis. LFTs abnormal on admission. Repeat LFTs normal. Improved. Continue to trend. No acute bleeding noted on exam. Further workup and management per the primary team. (9) Acute respiratory failure with hypoxemia Current Visit: Yes Status: Acute Likely secondary to PNA vs. pulmonary edema. Extubated 07/01/18. (10) Systolic heart failure Current Visit: Yes Status: Acute TTE was sub-optimal, but showed approximate EF 20%. Qualifiers: Heart failure chronicity: unspecified Qualified Code(s): I50.20 - Unspecified systolic (congestive) heart failure (11) Hypokalemia Current Visit: Yes Status: Resolved Resolved. (12) Elevated troponin Current Visit: Yes Status: Acute Management per the primary team. (13) Type 2 diabetes mellitus Current Visit: Yes Status: Chronic Recommend aggressive glucose monitoring and control. Management per the primary team. 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 PCR positive for HSV 1. Continue Acyclovir. Duration of treatment depends on the clinical picture. (16) Sinusitis Current Visit: Yes Status: Acute CT of the head 06/23/18 showed sinusitis of the bilateral sphenoid and ethmoid sinuses. Causative organism unclear. Treated with 9 days of Vanc and Zosyn. Qualifiers: Sinusitis location: unspecified location Chronicity: acute Recurrence: non-recurrent Qualified Code(s): J01.90 - Acute sinusitis, unspecified - Subjective Interval history: Patient seen and examined. We can note reviewed. No acute events. Patient extubated this morning. Currently on BiPAP. Vasopressors are off. Patient is awake, alert, follows commands per nursing. Pending swallow evaluation later today. Febrile over the weekend with Tmax 101.4. Infect Dis PN-Objective Data - Labs CBC & Chem 7: 07/01/18 03:00 07/01/18 17:55 Labs: Laboratory Results - last 24 hr 06/30/18 06/30/18 06/30/18 09:34 09:34 11:31 WBC RBC Hgb Hct MCV MCH MCHC RDW Plt Count MPV Immature Gran % Seg Neutrophils % Lymphocytes % Monocytes % Eosinophils % Basophils % Neutrophils # Lymphocytes # Monocytes # Eosinophils # Basophils # Reactive Lymphocytes Platelet Estimate Sample Site ABG pH ABG pCO2 ABG pO2 ABG HCO3 ABG Total CO2 ABG O2 Saturation ABG Base Excess Respiration Rate O2 Delivery Device Blood Gas Modality Inspired O2 Tidal Volume PEEP Sodium Potassium Chloride Carbon Dioxide BUN Creatinine Est GFR ( Amer) Est GFR (Non-Af Amer) BUN/Creatinine Ratio Glucose POC Glucose 138 H Calculated Osmolality Calcium Venous Ioniz Calcium Phosphorus Magnesium Iron % Saturation Transferrin Ferritin Total Bilirubin AST ALT Alkaline Phosphatase Serum Total Protein Albumin Globulin Albumin/Globulin Ratio Urine Color Yellow Urine Clarity Clear Urine pH 7.0 Ur Specific Edna < 1.005 L Urine Protein Trace Urine Glucose (UA) Normal Urine Ketones Negative Urine Blood Moderate H Urine Nitrite Negative Urine Bilirubin Negative Urine Urobilinogen Normal Ur Leukocyte Esterase Moderate H Urine Microscopic RBC 3-5 H Urine Microscopic WBC 50-100 H Ur Squamous Epith Cells None Seen Urine Bacteria Many H Hyaline Casts None Seen Urine Creatinine 31 Protein/Creatinin Ratio 1.68 H Urine Sodium 40.6 Urine Total Protein 52 H 06/30/18 06/30/18 06/30/18 12:00 15:09 18:40 WBC RBC Hgb Hct MCV MCH MCHC RDW Plt Count MPV Immature Gran % Seg Neutrophils % Lymphocytes % Monocytes % Eosinophils % Basophils % Neutrophils # Lymphocytes # Monocytes # Eosinophils # Basophils # Reactive Lymphocytes Platelet Estimate Sample Site ABG pH ABG pCO2 ABG pO2 ABG HCO3 ABG Total CO2 ABG O2 Saturation ABG Base Excess Respiration Rate O2 Delivery Device Blood Gas Modality Inspired O2 Tidal Volume PEEP Sodium 158 H 158 H Potassium Chloride Carbon Dioxide BUN Creatinine Est GFR ( Amer) Est GFR (Non-Af Amer) BUN/Creatinine Ratio Glucose POC Glucose 179 H Calculated Osmolality Calcium Venous Ioniz Calcium Phosphorus Magnesium Iron % Saturation Transferrin Ferritin Total Bilirubin AST ALT Alkaline Phosphatase Serum Total Protein Albumin Globulin Albumin/Globulin Ratio Urine Color Urine Clarity Urine pH Ur Specific [place] Urine Protein Urine Glucose (UA) Urine Ketones Urine Blood Urine Nitrite Urine Bilirubin Urine Urobilinogen Ur Leukocyte Esterase Urine Microscopic RBC Urine Microscopic WBC Ur Squamous Epith Cells Urine Bacteria Hyaline Casts Urine Creatinine Protein/Creatinin Ratio Urine Sodium Urine Total Protein 06/30/18 06/30/18 07/01/18 19:28 22:33 03:00 WBC 15.6 H RBC 2.44 L Hgb 7.9 L Hct 24.9 L MCV 102.0 H MCH 32.4 MCHC 31.7 RDW 17.2 H Plt Count 112 L MPV 11.0 Immature Gran % 0.7 Seg Neutrophils % 80.2 Lymphocytes % 12.0 Monocytes % 5.2 Eosinophils % 1.6 Basophils % 0.3 Neutrophils # 12.5 H Lymphocytes # 1.9 Monocytes # 0.8 Eosinophils # 0.3 Basophils # 0.0 Reactive Lymphocytes Present A Platelet Estimate Normal Sample Site ABG pH ABG pCO2 ABG pO2 ABG HCO3 ABG Total CO2 ABG O2 Saturation ABG Base Excess Respiration Rate O2 Delivery Device Blood Gas Modality Inspired O2 Tidal Volume PEEP Sodium Potassium Chloride Carbon Dioxide BUN Creatinine Est GFR ( Amer) Est GFR (Non-Af Amer) BUN/Creatinine Ratio Glucose POC Glucose 179 H 178 H Calculated Osmolality Calcium Venous Ioniz Calcium Phosphorus Magnesium Iron % Saturation Transferrin Ferritin Total Bilirubin AST ALT Alkaline Phosphatase Serum Total Protein Albumin Globulin Albumin/Globulin Ratio Urine Color Urine Clarity Urine pH Ur Specific [place] Urine Protein Urine Glucose (UA) Urine Ketones Urine Blood Urine Nitrite Urine Bilirubin Urine Urobilinogen Ur Leukocyte Esterase Urine Microscopic RBC Urine Microscopic WBC Ur Squamous Epith Cells Urine Bacteria Hyaline Casts Urine Creatinine Protein/Creatinin Ratio Urine Sodium Urine Total Protein 07/01/18 07/01/18 07/01/18 03:00 03:00 03:39 WBC RBC Hgb Hct MCV MCH MCHC RDW Plt Count MPV Immature Gran % Seg Neutrophils % Lymphocytes % Monocytes % Eosinophils % Basophils % Neutrophils # Lymphocytes # Monocytes # Eosinophils # Basophils # Reactive Lymphocytes Platelet Estimate Sample Site ABG pH ABG pCO2 ABG pO2 ABG HCO3 ABG Total CO2 ABG O2 Saturation ABG Base Excess Respiration Rate O2 Delivery Device Blood Gas Modality Inspired O2 Tidal Volume PEEP Sodium 156 H Potassium 3.2 L Chloride 116 H Carbon Dioxide 31 H BUN 32 H Creatinine 2.53 H Est GFR ( Amer) 32 L Est GFR (Non-Af Amer) 27 L BUN/Creatinine Ratio 13 Glucose 172 H POC Glucose Calculated Osmolality 333 H Calcium 8.3 L Venous Ioniz Calcium 1.13 L Phosphorus 5.6 H Magnesium 2.0 Iron < 10 L % Saturation TNP Transferrin 146 L Ferritin 647 H Total Bilirubin 0.4 AST 55 H ALT 30 Alkaline Phosphatase 90 Serum Total Protein 5.9 L Albumin 2.5 L Globulin 3.4 Albumin/Globulin Ratio 0.7 L Urine Color Urine Clarity Urine pH Ur Specific [place] Urine Protein Urine Glucose (UA) Urine Ketones Urine Blood Urine Nitrite Urine Bilirubin Urine Urobilinogen Ur Leukocyte Esterase Urine Microscopic RBC Urine Microscopic WBC Ur Squamous Epith Cells Urine Bacteria Hyaline Casts Urine Creatinine Protein/Creatinin Ratio Urine Sodium Urine Total Protein 07/01/18 07/01/18 04:42 07:28 WBC RBC Hgb Hct MCV MCH MCHC RDW Plt Count MPV Immature Gran % Seg Neutrophils % Lymphocytes % Monocytes % Eosinophils % Basophils % Neutrophils # Lymphocytes # Monocytes # Eosinophils # Basophils # Reactive Lymphocytes Platelet Estimate Sample Site R Radial ABG pH 7.45 ABG pCO2 46 H ABG pO2 60 L ABG HCO3 32 H ABG Total CO2 33 H ABG O2 Saturation 91 L ABG Base Excess 7 H Respiration Rate 16 O2 Delivery Device Adult Vent Blood Gas Modality ASSIST CONTROL Inspired O2 45.0 Tidal Volume 500 PEEP 5 Sodium Potassium Chloride Carbon Dioxide BUN Creatinine Est GFR ( Amer) Est GFR (Non-Af Amer) BUN/Creatinine Ratio Glucose POC Glucose 183 H Calculated Osmolality Calcium Venous Ioniz Calcium Phosphorus Magnesium Iron % Saturation Transferrin Ferritin Total Bilirubin AST ALT Alkaline Phosphatase Serum Total Protein Albumin Globulin Albumin/Globulin Ratio Urine Color Urine Clarity Urine pH Ur Specific [place] Urine Protein Urine Glucose (UA) Urine Ketones Urine Blood Urine Nitrite Urine Bilirubin Urine Urobilinogen Ur Leukocyte Esterase Urine Microscopic RBC Urine Microscopic WBC Ur Squamous Epith Cells Urine Bacteria Hyaline Casts Urine Creatinine Protein/Creatinin Ratio Urine Sodium Urine Total Protein Cultures: Cultures 06/24/18 11:35 Blood Culture - Final Peripheral Venipuncture No growth. Final report. 06/24/18 11:35 Blood Culture - Final Peripheral Venipuncture No growth. Final report. 06/19/18 12:46 Blood Culture - Final Peripheral Venipuncture No growth. Final report. 06/19/18 12:46 Blood Culture - Final Peripheral Venipuncture No growth. Final report. 06/18/18 20:45 Sputum Culture - Final Sputum 06/20/18 11:30 Legionella Antigen - Final Urine,[place] Streptococcus pneumoniae Antigen (M - Final Serology 06/30/18 06/30/18 06/24/18 Range/Units 09:34 09:34 15:10 Urine Color Yellow (Yellow) Urine Clarity Clear (Clear) Urine pH 7.0 (5.0-8.0) pH Units Ur Specific Edna < 1.005 L (1.010-1.025) Urine Protein Trace (Neg-Trace) mg/dL Urine Glucose (UA) Normal (Normal) mg/dL Urine Ketones Negative (Negative) mg/dL Urine Blood Moderate H (Negative) Urine Nitrite Negative (Negative) Urine Bilirubin Negative (Negative) Urine Urobilinogen Normal (Normal) mg/dL Ur Leukocyte Esterase Moderate H (Negative) Urine Microscopic RBC 3-5 H (0-3) per hpf Urine Microscopic WBC 50-100 H (0-3) per hpf Ur Squamous Epith Cells None Seen (None-Few) per lpf Urine Bacteria Many H (None-Few) per hpf Hyaline Casts None Seen (None-Few) per lpf Urine Osmolality (300-1090) mOsm/kg Urine Creatinine 31 mg/dL Protein/Creatinin Ratio 1.68 H (0.00-0.20) mg/mg Urine Sodium 40.6 mEq/L Urine Potassium mEq/L Urine Chloride mEq/L Urine Total Protein 52 H (1-14) mg/dL Nasal Screen MRSA (PCR) (Negative) Chlamy pneumoniae PCR (Not Detect) Adenovirus (PCR) (Not Detect) B. pertussis DNA (PCR) (Not Detect) B.parapertussis DNA PCR (Not Detect) Coronavirus OC43 (PCR) (Not Detect) Coronavirus HKU1 (PCR) (Not Detect) Coronavirus 229E (PCR) (Not Detect) Coronavirus NL63 (PCR) (Not Detect) Hep Bs Antigen (Nonreactive) Hep Bs Antibody mIU/mL Herpes Simplex Source [place] HSV I DETECTED A (Not Detect) HSV II Not Detected (Not Detect) HIV Ag/Ab Combo Qual (Nonreactive) Human Metapneumovir PCR (Not Detect) Influenza A (H1) PCR (Not Detect) Influ A (H1N1/09) PCR (Not Detect) Influenza A (H3) PCR (Not Detect) Influenza A Untype (PCR) (Not Detect) Influenza Type B (PCR) (Not Detect) M.pneumoniae DNA (PCR) (Not Detect) Parainfluenza 1 (PCR) (Not Detect) Parainfluenza 2 (PCR) (Not Detect) Parainfluenza 3 (PCR) (Not Detect) Parainfluenza 4 (PCR) (Not Detect) RSV (PCR) (Not Detect) Entero/Rhino (PCR) (Not Detect) 06/24/18 06/23/18 06/23/18 Range/Units 11:15 20:00 08:10 Urine Color Yellow (Yellow) Urine Clarity Hazy (Clear) Urine pH 6.0 (5.0-8.0) pH Units Ur Specific Edna 1.013 (1.010-1.025) Urine Protein 30 H (Neg-Trace) mg/dL Urine Glucose (UA) Normal (Normal) mg/dL Urine Ketones Negative (Negative) mg/dL Urine Blood Moderate H (Negative) Urine Nitrite Negative (Negative) Urine Bilirubin Small H (Negative) Urine Urobilinogen Normal (Normal) mg/dL Ur Leukocyte Esterase Moderate H (Negative) Urine Microscopic RBC 3-5 H (0-3) per hpf Urine Microscopic WBC 50-100 H (0-3) per hpf Ur Squamous Epith Cells Many H (None-Few) per lpf Urine Bacteria None Seen (None-Few) per hpf Hyaline Casts None Seen (None-Few) per lpf Urine Osmolality (300-1090) mOsm/kg Urine Creatinine mg/dL Protein/Creatinin Ratio (0.00-0.20) mg/mg Urine Sodium mEq/L Urine Potassium mEq/L Urine Chloride mEq/L Urine Total Protein (1-14) mg/dL Nasal Screen MRSA (PCR) (Negative) Chlamy pneumoniae PCR (Not Detect) Adenovirus (PCR) (Not Detect) B. pertussis DNA (PCR) (Not Detect) B.parapertussis DNA PCR (Not Detect) Coronavirus OC43 (PCR) (Not Detect) Coronavirus HKU1 (PCR) (Not Detect) Coronavirus 229E (PCR) (Not Detect) Coronavirus NL63 (PCR) (Not Detect) Hep Bs Antigen Nonreactive (Nonreactive) Hep Bs Antibody 0.00 mIU/mL Herpes Simplex Source HSV I (Not Detect) HSV II (Not Detect) HIV Ag/Ab Combo Qual Nonreactive (Nonreactive) Human Metapneumovir PCR (Not Detect) Influenza A (H1) PCR (Not Detect) Influ A (H1N1/09) PCR (Not Detect) Influenza A (H3) PCR (Not Detect) Influenza A Untype (PCR) (Not Detect) Influenza Type B (PCR) (Not Detect) M.pneumoniae DNA (PCR) (Not Detect) Parainfluenza 1 (PCR) (Not Detect) Parainfluenza 2 (PCR) (Not Detect) Parainfluenza 3 (PCR) (Not Detect) Parainfluenza 4 (PCR) (Not Detect) RSV (PCR) (Not Detect) Entero/Rhino (PCR) (Not Detect) 06/20/18 06/18/18 06/18/18 Range/Units 11:30 10:28 10:28 Urine Color (Yellow) Urine Clarity (Clear) Urine pH (5.0-8.0) pH Units Ur Specific Edna (1.010-1.025) Urine Protein (Neg-Trace) mg/dL Urine Glucose (UA) (Normal) mg/dL Urine Ketones (Negative) mg/dL Urine Blood (Negative) Urine Nitrite (Negative) Urine Bilirubin (Negative) Urine Urobilinogen (Normal) mg/dL Ur Leukocyte Esterase (Negative) Urine Microscopic RBC (0-3) per hpf Urine Microscopic WBC (0-3) per hpf Ur Squamous Epith Cells (None-Few) per lpf Urine Bacteria (None-Few) per hpf Hyaline Casts (None-Few) per lpf Urine Osmolality 343 (300-1090) mOsm/kg Urine Creatinine mg/dL Protein/Creatinin Ratio (0.00-0.20) mg/mg Urine Sodium mEq/L Urine Potassium 36.5 mEq/L Urine Chloride mEq/L Urine Total Protein (1-14) mg/dL Nasal Screen MRSA (PCR) (Negative) Chlamy pneumoniae PCR Not Detected (Not Detect) Adenovirus (PCR) Not Detected (Not Detect) B. pertussis DNA (PCR) Not Detected (Not Detect) B.parapertussis DNA PCR Not Detected (Not Detect) Coronavirus OC43 (PCR) Not Detected (Not Detect) Coronavirus HKU1 (PCR) Not Detected (Not Detect) Coronavirus 229E (PCR) Not Detected (Not Detect) Coronavirus NL63 (PCR) Not Detected (Not Detect) Hep Bs Antigen (Nonreactive) Hep Bs Antibody mIU/mL Herpes Simplex Source HSV I (Not Detect) HSV II (Not Detect) HIV Ag/Ab Combo Qual (Nonreactive) Human Metapneumovir PCR Not Detected (Not Detect) Influenza A (H1) PCR Not Detected (Not Detect) Influ A (H1N1/09) PCR Not Detected (Not Detect) Influenza A (H3) PCR Not Detected (Not Detect) Influenza A Untype (PCR) Not Detected (Not Detect) Influenza Type B (PCR) Not Detected (Not Detect) M.pneumoniae DNA (PCR) Not Detected (Not Detect) Parainfluenza 1 (PCR) Not Detected (Not Detect) Parainfluenza 2 (PCR) Not Detected (Not Detect) Parainfluenza 3 (PCR) Not Detected (Not Detect) Parainfluenza 4 (PCR) Not Detected (Not Detect) RSV (PCR) Not Detected (Not Detect) Entero/Rhino (PCR) Not Detected (Not Detect) 06/17/18 06/17/18 06/17/18 Range/Units 18:15 11:56 11:30 Urine Color (Yellow) Urine Clarity (Clear) Urine pH (5.0-8.0) pH Units Ur Specific Edna (1.010-1.025) Urine Protein (Neg-Trace) mg/dL Urine Glucose (UA) (Normal) mg/dL Urine Ketones (Negative) mg/dL Urine Blood (Negative) Urine Nitrite (Negative) Urine Bilirubin (Negative) Urine Urobilinogen (Normal) mg/dL Ur Leukocyte Esterase (Negative) Urine Microscopic RBC (0-3) per hpf Urine Microscopic WBC (0-3) per hpf Ur Squamous Epith Cells (None-Few) per lpf Urine Bacteria (None-Few) per hpf Hyaline Casts (None-Few) per lpf Urine Osmolality (300-1090) mOsm/kg Urine Creatinine mg/dL Protein/Creatinin Ratio (0.00-0.20) mg/mg Urine Sodium 128.8 mEq/L Urine Potassium 7.5 mEq/L Urine Chloride 135 mEq/L Urine Total Protein (1-14) mg/dL Nasal Screen MRSA (PCR) Negative (Negative) Chlamy pneumoniae PCR Not Detected (Not Detect) Adenovirus (PCR) Not Detected (Not Detect) B. pertussis DNA (PCR) Not Detected (Not Detect) B.parapertussis DNA PCR Not Detected (Not Detect) Coronavirus OC43 (PCR) Not Detected (Not Detect) Coronavirus HKU1 (PCR) Not Detected (Not Detect) Coronavirus 229E (PCR) Not Detected (Not Detect) Coronavirus NL63 (PCR) Not Detected (Not Detect) Hep Bs Antigen (Nonreactive) Hep Bs Antibody mIU/mL Herpes Simplex Source HSV I (Not Detect) HSV II (Not Detect) HIV Ag/Ab Combo Qual (Nonreactive) Human Metapneumovir PCR Not Detected (Not Detect) Influenza A (H1) PCR Not Detected (Not Detect) Influ A (H1N1/09) PCR Not Detected (Not Detect) Influenza A (H3) PCR Not Detected (Not Detect) Influenza A Untype (PCR) Not Detected (Not Detect) Influenza Type B (PCR) Not Detected (Not Detect) M.pneumoniae DNA (PCR) Not Detected (Not Detect) Parainfluenza 1 (PCR) Not Detected (Not Detect) Parainfluenza 2 (PCR) Not Detected (Not Detect) Parainfluenza 3 (PCR) Not Detected (Not Detect) Parainfluenza 4 (PCR) Not Detected (Not Detect) RSV (PCR) Not Detected (Not Detect) Entero/Rhino (PCR) Not Detected (Not Detect) - Impressions Impressions Chest X-Ray 07/01/18 04:00 IMPRESSION: The lines and tubes are stable. Stable right lower lobe airspace disease and pleural effusion. Improving consolidation of the left lower lobe. D/ / 07/01/2018 07:56:31 Vick Bucio MD / [place] Interpreting Provider: Vick Bucio MD Exam - Constitutional Vitals: Temp Pulse Resp BP Pulse Ox 100.1 F H 88 30 104/72 97 07/01/18 07:35 07/01/18 10:00 07/01/18 10:00 07/01/18 10:00 07/01/18 10:00 General appearance: cooperative, no acute distress, obese - Head Head exam: Present: atraumatic, normal inspection, normocephalic - Eye Eye exam: Present: normal appearance, PERRL Pupils: Present: normal accommodation - ENT ENT exam: Present: mucous membranes moist Additional comments: HSV lesions improved. - Neck Neck exam: Present: normal inspection - Respiratory Respiratory exam: Present: CTAB. Absent: rales, respiratory distress, rhonchi, wheezes - Cardiovascular Cardiovascular exam: Present: RRR, +S1, +S2 - GI/Abdominal GI/Abdominal exam: Present: normal bowel sounds, soft. Absent: distended, tenderness Additional comments: [place] catheter noted to be draining clear yellow urine. - Extremities Exam Extremities exam: Present: pedal edema (1+ bLE). Absent: joint swelling, tenderness - Neurological Exam Neurological exam: Present: alert, no focal deficits - Psychiatric Psychiatric exam: Present: normal affect, normal mood - Skin Skin exam: Present: dry, intact, normal color, warm - VTE Documentation of Mechanical Device: Intermittent pneumatic compression device Consult Discharge Plan - Plan Referrals: Sheryl Stahl, MEDICAL CARE ADMINISTRATOR [Primary Care Provider] - - Attending Attestation I examined this patient and my medical decision-making was reviewed with the Resident Physician. I agree with the documented findings, disposition and treatment plan as described except to the extent set forth below. I spoke with the pulmonary team because of the x-ray findings. They feel that the x-ray is looking better. We discussed palpable me starting broad-spectrum antibiotics are just observing. We figure that we will just watch closely right now. He is extubated clinically doing better. As for the acyclovir, the patient had very bad herpetic lesions in his mouth and his was in the room when I saw him and she told me he was altered and confused and lethargic when he got to the emergency department. He did have encephalopathy. I will also was metabolic encephalopathy or viral encephalopathy or other. Patient has received 7 days of acyclovir. I understand the concern on the reservation on the the pulmonary and the nephrology team have regarding the acyclovir especially with his kidney function but I really do not know was the right answer. I will discuss with pulmonary team tomorrow and decide if within the continue or stop it.
[2018-07-01] MEDS: Ipratropium/Albuterol Neb 3 ML IH PRN (11:24)
[2018-07-01] MEDS: Fluconazole 200 MG/100 ML IVPB SCH (15:41)
[2018-07-01] MEDS: Acyclovir 750 MG in D5% in Water 250 ML IVPB SCH (15:42)
[2018-07-01] MEDS: *HR* Heparin 5,000 UNIT/ML VIAL SQ SCH (17:51)
[2018-07-01 19:07] LABS: Potassium 3.8 mEq/L (3.5-5.1)
[2018-07-01 19:27] LABS: Calcium 8.4 mg/dL (8.6-10.3)
[2018-07-01] MEDS: Norepinephrine 4 MG in D5% in Water 250 ML IVC SCH (22:27)
[2018-07-02] MEDS: Dexmedetomidine HCl 400 MCG/100 ML MLS IVC SCH ×4 (00:30→13:19)
[2018-07-02] MEDS: D5% in Water 1,000 ML IVC SCH ×5 (01:36→23:10)
[2018-07-02] MEDS: Acyclovir 750 MG in D5% in Water 250 ML IVPB SCH (01:40)
[2018-07-02] MEDS: Insulin LISPRO 300 UNITS/3 ML VIAL SQ SCH ×6 (03:26→23:45)
[2018-07-02] MEDS: Artificial Tears SOLN 15 ML BOTTLE BOTH EYES SCH ×9 (03:26→23:45)
[2018-07-02] MEDS: Ipratropium/Albuterol Neb 3 ML IH PRN (03:46)
[2018-07-02 04:01] LABS: Basophils # 0.1 K/mcL (0.0-0.2); Basophils % 0.4 %; Eosinophils # 0.3 K/mcL (0.0-0.6); Eosinophils % 2.3 %; Hematocrit 25.3 % (37.5-50.1); Hemoglobin 7.7 g/dL (12.9-16.9); Immature Granulocytes % 0.6 % (0-4); Lymphocytes # 1.5 K/mcL (0.6-4.6); Mean Corpuscular HGB Conc 30.4 g/dL (31.6-35.5); Mean Corpuscular Hemoglobin 31.8 pg (28.0-33.3); Mean Corpuscular Volume 104.5 fL (83.0-100.0); Mean Platelet Volume 11.6 fL (9.4-12.4); Monocytes # 0.7 K/mcL (0.0-1.3); Platelet Count 119 K/mcL (140-400); Red Blood Count 2.42 M/mcL (4.19-5.50); Red Cell Distribution Width 16.4 % (11.5-14.5); Segmented Neutrophils % 80.7 %
[2018-07-02 04:02] LABS: Calcium 8.4 mg/dL (8.6-10.3); Potassium 3.8 mEq/L (3.5-5.1)
[2018-07-02] MEDS: *HR* Heparin 5,000 UNIT/ML VIAL SQ SCH ×2 (04:42→17:03)
[2018-07-02] MEDS: *HR* LORazepam 2 MG/ML VIAL IVP PRN ×2 (05:04→11:20)
--- NOTE | 2018-07-02 07:21 | Pulmonology Progress Note ---
<JonasMaximo W - Last Filed: 07/02/18 08:31> Date of Encounter: 07/02/18 Objective PUL Vital signs: Last Vital Signs Temp 97.1 F L 07/02/18 03:53 Pulse 69 07/02/18 06:00 Resp 14 07/02/18 06:00 BP 124/70 07/02/18 06:00 Pulse Ox 94 07/02/18 06:00 Results - Laboratory Findings CBC and BMP: 07/02/18 03:25 07/02/18 03:25 ABG ABG pH 7.45 pH Units (7.32-7.45) 07/01/18 04:42 ABG pCO2 46 mmHg (35-45) H 07/01/18 04:42 ABG pO2 60 mmHg (85-104) L 07/01/18 04:42 ABG O2 Saturation 91 % (95-98) L 07/01/18 04:42 PT/INR, D-dimer PT 16.7 Seconds (9.4-12.1) H 06/22/18 03:45 D-Dimer 3465 ng/mLFEU (0-500) H 06/18/18 08:08 Abnormal lab findings: Abnormal lab results WBC 13.6 K/mcL (4.3-11.1) H 07/02/18 03:25 RBC 2.42 M/mcL (4.19-5.50) L 07/02/18 03:25 Hgb 7.7 g/dL (12.9-16.9) L 07/02/18 03:25 Hct 25.3 % (37.5-50.1) L 07/02/18 03:25 MCV 104.5 fL (83.0-100.0) H 07/02/18 03:25 MCHC 30.4 g/dL (31.6-35.5) L 07/02/18 03:25 RDW 16.4 % (11.5-14.5) H 07/02/18 03:25 Plt Count 119 K/mcL (140-400) L 07/02/18 03:25 Band Neutrophils % 6.0 % (0-4) H 06/27/18 03:00 Metamyelocytes % 2.0 % (0) H 06/27/18 03:00 Myelocytes % 6.0 % (0) H 06/27/18 03:00 Neutrophils # 11.0 K/mcL (1.6-8.9) H 07/02/18 03:25 Nucleated RBCs/100 WBC 0.1 /100 WBC (0) H 06/28/18 03:30 Reactive Lymphocytes Present (Not Present) A 07/01/18 03:00 Toxic Granulation Present (Not Present) A 06/18/18 03:05 Toxic Vacuolation Present (Not Present) A 06/22/18 03:45 Large Platelets Present (Not Present) A 06/23/18 03:15 Polychromasia 1+ (Not Present) A 06/27/18 03:00 Basophilic Stippling 1+ (Not Present) A 06/26/18 04:00 Anisocytosis 1+ (Not Present) A 06/28/18 03:30 Macrocytosis Present (Not Present) A 06/26/18 04:00 PT 16.7 Seconds (9.4-12.1) H 06/22/18 03:45 APTT 62.8 Seconds (26.0-36.0) H 06/23/18 08:00 Fibrinogen 578 mg/dL (169-393) H 06/18/18 08:08 D-Dimer 3465 ng/mLFEU (0-500) H 06/18/18 08:08 ABG pCO2 46 mmHg (35-45) H 07/01/18 04:42 ABG pO2 60 mmHg (85-104) L 07/01/18 04:42 ABG HCO3 32 mEq/L (21-27) H 07/01/18 04:42 ABG Total CO2 33 mEq/L (20-26) H 07/01/18 04:42 ABG O2 Saturation 91 % (95-98) L 07/01/18 04:42 ABG Base Excess 7 mEq/L (-2 to 3) H 07/01/18 04:42 Sodium 154 mEq/L (136-145) H 07/02/18 03:25 Chloride 115 mEq/L (98-107) H 07/02/18 03:25 Carbon Dioxide 33 mEq/L (23-29) H 07/02/18 03:25 BUN 29 mg/dL (6-20) H 07/02/18 03:25 Creatinine 2.60 mg/dL (0.70-1.30) H 07/02/18 03:25 Est GFR ( Amer) 31 (> 60) L 07/02/18 03:25 Est GFR (Non-Af Amer) 26 (> 60) L 07/02/18 03:25 Glucose 216 mg/dL (70-105) H 07/02/18 03:25 POC Glucose 180 mg/dL (70-99) H 07/02/18 07:19 Serum Osmolality 327 mOsm/kg (280-300) H 07/01/18 09:48 Calculated Osmolality 330 (280-300) H 07/02/18 03:25 Calcium 8.4 mg/dL (8.6-10.3) L 07/02/18 03:25 Venous Ioniz Calcium 1.13 mmol/L (1.15-1.35) L 07/01/18 03:39 Phosphorus 5.6 mg/dL (2.7-4.5) H 07/01/18 03:00 Iron < 10 mcg/dL (65-175) L 07/01/18 03:00 Transferrin 146 mg/dL (203-362) L 07/01/18 03:00 Ferritin 647 ng/mL (20-250) H 07/01/18 03:00 Direct Bilirubin 0.4 mg/dL (0.0-0.2) H 06/23/18 03:15 AST 55 Units/L (13-39) H 07/01/18 03:00 Troponin I 0.92 ng/mL (< 0.04) H* 06/17/18 22:33 Serum Total Protein 5.9 g/dL (6.4-8.9) L 07/01/18 03:00 Albumin 2.5 g/dL (3.5-5.7) L 07/01/18 03:00 Albumin/Globulin Ratio 0.7 (1.1-2.2) L 07/01/18 03:00 Amylase 20 Units/L (29-103) L 06/23/18 16:27 Folate 2.5 ng/mL (3.0-16.0) L 06/27/18 11:25 Procalcitonin 107.11 ng/mL (<=0.07) H 06/17/18 16:40 TSH 7.234 mcIU/mL (0.340-5.600) H 06/27/18 11:25 Ur Specific [place] < 1.005 (1.010-1.025) L 06/30/18 09:34 Urine Blood Moderate (Negative) H 06/30/18 09:34 Ur Leukocyte Esterase Moderate (Negative) H 06/30/18 09:34 Urine Microscopic RBC 3-5 per hpf (0-3) H 06/30/18 09:34 Urine Microscopic WBC 50-100 per hpf (0-3) H 06/30/18 09:34 Urine Bacteria Many per hpf (None-Few) H 06/30/18 09:34 Urine Osmolality 200 mOsm/kg (300-1090) L 06/30/18 09:33 Protein/Creatinin Ratio 1.68 mg/mg (0.00-0.20) H 06/30/18 09:34 Urine Total Protein 52 mg/dL (1-14) H 06/30/18 09:34 Vancomycin Trough 18 mcg/mL (5-10) H 06/19/18 08:20 Urine Opiates Screen Positive ng/mL (Iihvsh=464) H 06/18/18 10:37 U Benzodiazepines Scrn Positive ng/mL (Wjdlkx=010) H 06/18/18 10:37 HSV I DETECTED (Not Detect) A 06/24/18 15:10 - Clinical Findings Intake & Output: Intake & Output 07/01/18 07/01/18 07/02/18 15:59 23:59 07:59 Intake Total 1400 / 1400 1765 / 1765 1200 / 1200 Output Total 700 / 700 2049 / 2049 Balance 700 / 700 -285 / -285 -850 / -850 Weight 111.5 kg Consult Discharge Plan - Plan Referrals: Sheryl Stahl, RELOCATION ASSOCIATE [Primary Care Provider] - - Attending Attestation I examined this patient and my medical decision-making was reviewed with the Resident Physician. I agree with the documented findings, disposition and treatment plan as described except to the extent set forth below. We independently had [id number] contact with the patient Patient seen and examined at bedside Labs, radiology, chart personally reviewed. Management was reviewed during multidisciplinary critical care rounds. PULPER: Patient more encephalopathic today he is able to follow some simple commands but generally is much more somnolent Pulm: Patient remains on BiPAP with increased respiratory rate and slightly worsening hypoxemia will check arterial blood gas to confirm no elevation in PCO2 Cards: Remains hemodynamically stable grossly volume overloaded holding diuretic because of worsening hypernatremia he is on infusion of D5 which is likely exacerbating hydrostatic pulmonary edema GI: Continue to monitor Nutrition: Nothing by mouth for now because of encephalopathy Renal: Hypernatremia slowly improving with D5 water worsening creatinine and encephalopathy I along with volume overload I have requested dialysis be performed today by the nephrology service and they are in agreement with plan UOP Monitored, Cont to Trend sCr and monitor Electrolytes. ID: He is on acyclovir and fluconazole per infectious disease recommendations white count trending down Heme/Onc: DVT prophylaxis given Endo: Glucose Monitored Integ/MSK: Skin Care per routine ICU Nursing Protocol to prevent ulcers. Lines: All lines examined without evidence of infection : Dispo: In ICU today CODE: Full <Bonnie Cummins E - Last Filed: 07/02/18 10:36> Date of Encounter: 07/02/18 Time of Encounter: 07:19 Assessment and Plan (1) Septic shock Current Visit: Yes Status: Acute sepsis suspected secondary to karo fungemia. Currently on Precedex and fentanyl, nephrology would like him to do his full 3 hours of dialysis intake 2 L of fluid off the Levophed during dialysis if needed for pressure support and then weaned back off. MAP this morning 62. On fluconazole for fungemia, possible from UTI. Acyclovir started 06/25/18 for possible herpes encephalitis will be stopped today. No growth on repeat cultures from 06/19/18. New cultures were drawn on 06/24/18 showed no growth. MRI brain unremarkable, no acute intracranial abnormalities. CT scan 06/23/18 showed thickening of the bladder wall possibly due to cystitis. Small bilateral pleural effusions with bibasilar pulmonary airspace opacities, favored to be atelectasis, sludge within the gallbladder. Mildly enlarged anterior mediastinal lymphnode and peripancreatic nodes, may be reactive. Neuro consulted last week due to patient's mental status, not following commands , only arousable to noctious stimuli. They recommending continuing acyclovir, plan on EEG, and will analyze Blood work. They will continue to monitor. Patient today follows commands and is awake. Bowel sounds today are soft, will continue to monitor- Consult to Speech Therapy for swallow study Will continue Fluconazole and acyclovir today, discuss decrease in acyclovir pending ID and neuro recommendations (2) Acute respiratory failure with hypoxemia Current Visit: Yes Status: Acute Patient was extubated yesterday and put on bipap. Will continue to monitor respiratory status. 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 Continue to monitor keep MAP above 60. Qualifiers: Heart failure chronicity: unspecified Qualified Code(s): I50.20 - Unspecified systolic (congestive) heart failure (6) LUCILA (acute kidney injury) Current Visit: Yes Status: Acute Nephrology following. Patient on intermittent dialysis. Hypernatreima with free water deficit possibly due to polyuric phase of renal recovery, will continue to monitor Urine output yesterday 168 ml/hour, today 292 mls/hr this morning Continue to monitor (7) Hypocalcemia Current Visit: Yes Status: Acute Continue to monitor. Calcium today at 8.3. Replace if necessary (8) Hypernatremia Current Visit: Yes Status: Acute Nephrology on board Possibly due to polyuric phase of renal recovery D5 at 125 ml per hour, free water 200ml every 4 hours Continue sodium checks and monitoring neurologic status (9) Hypokalemia Current Visit: Yes Status: Resolved resolved, today potassium is 3.8 Continue to monitor and replace as necessary (10) Encephalopathy Current Visit: Yes Status: Acute Neuro on board, believed to be from toxic metabolic causes. Continue antifungal and acyclovir (11) Thrombocytopenia Current Visit: Yes Status: Resolved Platelets 119. Continue to monitor. 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 No heparin was in use in the lines which could have caused the excessive clotting on dialysis filter. Also, platelet count could have been decreased do to septic shock. Heparin was held over korin weekend, restarted today due to platelets staying steady, today platelets 119 (13) Type 2 diabetes mellitus Current Visit: Yes Status: Chronic Switched to subcutaneous insulin medium sliding scale q4 Qualifiers: Diabetes mellitus prison insulin use: with prison use Diabetes mellitus complication status: with unspecified complications Qualified Code(s) : E11.8 - Type 2 diabetes mellitus with unspecified complications; Z79.4 - senior care (current) use of insulin (14) DVT prophylaxis Current Visit: Yes Status: Acute ECPDs Heparin 5000 units sub q Subjective Principal diagnosis: septic shock Interval history: Mr. Mccarthy was seen at bedside this morning. He is was extubated yesterday and put on Bipap. Creatinine increased to 2.60, nephrology following and will be doing intermediate dialysis. WBC count decreased from yesterday. ABGs show pH 7.45, inspired O2 was raised to 45 until extubation. 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 Neuro consulted for mental status and possible herpes encephalitis. Heparin was held for possible HIT but platelets have stayed steady Restarted heprin for DVT prophylaxis yesterday Objective PUL Vital signs: Last Vital Signs Temp 97.1 F L 07/02/18 03:53 Pulse 69 07/02/18 06:00 Resp 14 07/02/18 06:00 BP 124/70 07/02/18 06:00 Pulse Ox 94 07/02/18 06:00 General appearance: no acute distress, asleep, other (Easy to wake up) Eyes: nonicteric ENT: oropharynx moist Effort: normal Auscultation: bilateral: wheezes (inspiratory) Cardiovascular: regular rate and rhythm Gastrointestinal: hypoactive bowel sounds, non-tender, non-distended Extremities: no cyanosis, no clubbing, edema (1+ pitting at the feet) Results - Laboratory Findings CBC and BMP: 07/02/18 03:25 07/02/18 03:25 ABG ABG pH 7.45 pH Units (7.32-7.45) 07/01/18 04:42 ABG pCO2 46 mmHg (35-45) H 07/01/18 04:42 ABG pO2 60 mmHg (85-104) L 07/01/18 04:42 ABG O2 Saturation 91 % (95-98) L 07/01/18 04:42 PT/INR, D-dimer PT 16.7 Seconds (9.4-12.1) H 06/22/18 03:45 D-Dimer 3465 ng/mLFEU (0-500) H 06/18/18 08:08 Abnormal lab findings: Abnormal lab results WBC 13.6 K/mcL (4.3-11.1) H 07/02/18 03:25 RBC 2.42 M/mcL (4.19-5.50) L 07/02/18 03:25 Hgb 7.7 g/dL (12.9-16.9) L 07/02/18 03:25 Hct 25.3 % (37.5-50.1) L 07/02/18 03:25 MCV 104.5 fL (83.0-100.0) H 07/02/18 03:25 MCHC 30.4 g/dL (31.6-35.5) L 07/02/18 03:25 RDW 16.4 % (11.5-14.5) H 07/02/18 03:25 Plt Count 119 K/mcL (140-400) L 07/02/18 03:25 Band Neutrophils % 6.0 % (0-4) H 06/27/18 03:00 Metamyelocytes % 2.0 % (0) H 06/27/18 03:00 Myelocytes % 6.0 % (0) H 06/27/18 03:00 Neutrophils # 11.0 K/mcL (1.6-8.9) H 07/02/18 03:25 Nucleated RBCs/100 WBC 0.1 /100 WBC (0) H 06/28/18 03:30 Reactive Lymphocytes Present (Not Present) A 07/01/18 03:00 Toxic Granulation Present (Not Present) A 06/18/18 03:05 Toxic Vacuolation Present (Not Present) A 06/22/18 03:45 Large Platelets Present (Not Present) A 06/23/18 03:15 Polychromasia 1+ (Not Present) A 06/27/18 03:00 Basophilic Stippling 1+ (Not Present) A 06/26/18 04:00 Anisocytosis 1+ (Not Present) A 06/28/18 03:30 Macrocytosis Present (Not Present) A 06/26/18 04:00 PT 16.7 Seconds (9.4-12.1) H 06/22/18 03:45 APTT 62.8 Seconds (26.0-36.0) H 06/23/18 08:00 Fibrinogen 578 mg/dL (169-393) H 06/18/18 08:08 D-Dimer 3465 ng/mLFEU (0-500) H 06/18/18 08:08 ABG pCO2 46 mmHg (35-45) H 07/01/18 04:42 ABG pO2 60 mmHg (85-104) L 07/01/18 04:42 ABG HCO3 32 mEq/L (21-27) H 07/01/18 04:42 ABG Total CO2 33 mEq/L (20-26) H 07/01/18 04:42 ABG O2 Saturation 91 % (95-98) L 07/01/18 04:42 ABG Base Excess 7 mEq/L (-2 to 3) H 07/01/18 04:42 Sodium 154 mEq/L (136-145) H 07/02/18 03:25 Chloride 115 mEq/L (98-107) H 07/02/18 03:25 Carbon Dioxide 33 mEq/L (23-29) H 07/02/18 03:25 BUN 29 mg/dL (6-20) H 07/02/18 03:25 Creatinine 2.60 mg/dL (0.70-1.30) H 07/02/18 03:25 Est GFR ( Amer) 31 (> 60) L 07/02/18 03:25 Est GFR (Non-Af Amer) 26 (> 60) L 07/02/18 03:25 Glucose 216 mg/dL (70-105) H 07/02/18 03:25 POC Glucose 216 mg/dL (70-99) H 07/02/18 03:18 Serum Osmolality 327 mOsm/kg (280-300) H 07/01/18 09:48 Calculated Osmolality 330 (280-300) H 07/02/18 03:25 Calcium 8.4 mg/dL (8.6-10.3) L 07/02/18 03:25 Venous Ioniz Calcium 1.13 mmol/L (1.15-1.35) L 07/01/18 03:39 Phosphorus 5.6 mg/dL (2.7-4.5) H 07/01/18 03:00 Iron < 10 mcg/dL (65-175) L 07/01/18 03:00 Transferrin 146 mg/dL (203-362) L 07/01/18 03:00 Ferritin 647 ng/mL (20-250) H 07/01/18 03:00 Direct Bilirubin 0.4 mg/dL (0.0-0.2) H 06/23/18 03:15 AST 55 Units/L (13-39) H 07/01/18 03:00 Troponin I 0.92 ng/mL (< 0.04) H* 06/17/18 22:33 Serum Total Protein 5.9 g/dL (6.4-8.9) L 07/01/18 03:00 Albumin 2.5 g/dL (3.5-5.7) L 07/01/18 03:00 Albumin/Globulin Ratio 0.7 (1.1-2.2) L 07/01/18 03:00 Amylase 20 Units/L (29-103) L 06/23/18 16:27 Folate 2.5 ng/mL (3.0-16.0) L 06/27/18 11:25 Procalcitonin 107.11 ng/mL (<=0.07) H 06/17/18 16:40 TSH 7.234 mcIU/mL (0.340-5.600) H 06/27/18 11:25 Ur Specific [place] < 1.005 (1.010-1.025) L 06/30/18 09:34 Urine Blood Moderate (Negative) H 06/30/18 09:34 Ur Leukocyte Esterase Moderate (Negative) H 06/30/18 09:34 Urine Microscopic RBC 3-5 per hpf (0-3) H 06/30/18 09:34 Urine Microscopic WBC 50-100 per hpf (0-3) H 06/30/18 09:34 Urine Bacteria Many per hpf (None-Few) H 06/30/18 09:34 Urine Osmolality 200 mOsm/kg (300-1090) L 06/30/18 09:33 Protein/Creatinin Ratio 1.68 mg/mg (0.00-0.20) H 06/30/18 09:34 Urine Total Protein 52 mg/dL (1-14) H 06/30/18 09:34 Vancomycin Trough 18 mcg/mL (5-10) H 06/19/18 08:20 Urine Opiates Screen Positive ng/mL (Hbdeyh=569) H 06/18/18 10:37 U Benzodiazepines Scrn Positive ng/mL (Bzckuf=308) H 06/18/18 10:37 HSV I DETECTED (Not Detect) A 06/24/18 15:10 - Clinical Findings Intake & Output: Intake & Output 07/01/18 07/01/18 07/02/18 15:59 23:59 07:59 Intake Total 1400 / 1400 1765 / 1765 1200 / 1200 Output Total 700 / 700 2049 Balance 700 / 700 -285 / -285 -850 / -850 Weight 111.5 kg - VTE Documentation of Mechanical Device: Intermittent pneumatic compression device
[2018-07-02] MEDS: Chlorhexidine Rinse 15 ML MOUTHWASH MM SCH ×3 (08:19→23:09)
[2018-07-02] MEDS: Pantoprazole 40 MG VIAL IVP SCH (08:19)
[2018-07-02] MEDS: Nystatin SUSP 5 ML UD.LIQ PO SCH ×4 (08:19→23:09)
--- NOTE | 2018-07-02 08:36 | Nephrology Progress Note ---
Date of Encounter: 07/02/18 Time of Encounter: 08:45 - Assessment and Plan (1) LUCILA (acute kidney injury) Current Visit: Yes Status: Acute Polyuric LUCILA, last hemodialysis on Saturday In the past 24 hours the patient has continued to put out over 5 L of urine His labs demonstrate significant free water deficit of 8 L with hypernatremia of 156, and creatinine 2.53 despite 125mLs/hr D5W + 200mL Free water per OG q4h Suspect that this is most likely due to polyuric phase of renal recovery, however consider central or drug induced diabetes insipidus as a differential as well UA did demonstrate 50-100 WBCs and many bacteria. Urine Protein:Creatinine ratio 1.7 Plan -Hold on hemodialysis today, consider tomorrow if necessary. There is no biochemical need for HD today, and the patient is putting out substantial urine. In fact, he appears volume depleted to some degree. We will be on standby if pulmonary edema worsens and UF seems to be an appropriate solution -Continue D5 water to 125 mL an hour. As patient has been Reintubated, recommend OG tube fluids -Consider DDAVP if free water and insufficient (2) Hypernatremia Current Visit: Yes Status: Acute Likely secondary to free water deficit in the setting of polyuric phase of renal recovery Diabetes insipidus does remain on the differential as well Ideally the patient would replace half of deficit with PO fluids today (~4L Free Water), however he has been unable to take PO fluids thus far He now will have OG tube as he has been intubated again due to declining respiratory status. Serum Osm 327, Urine Osm 200 We encourage free water per OG as it will not contribute to pulmonary status (3) Acute respiratory failure with hypoxemia Current Visit: Yes Status: Acute Patient required intubation due to worsening respiratory status Management per critical care team (4) Anemia Current Visit: Yes Status: Acute Severe iron deficiency anemia Transfusion parameters per primary team Qualifiers: Anemia type: iron deficiency Iron deficiency anemia type: unspecified iron deficiency Qualified Code(s): D50.9 - Iron deficiency anemia, unspecified Subjective Principal diagnosis: septic shock Interval history: The patient is resting in bed on BiPAP today. He has developed worsening shortness of breath despite self-diuresis. Objective - Vital Signs Vital signs: Vital Signs Temp Pulse Resp BP Pulse Ox 07/02/18 08:12 97.5 F L 07/02/18 08:00 80 15 141/83 95 07/02/18 07:00 81 27 127/74 96 07/02/18 06:00 69 14 124/70 94 07/02/18 05:00 82 25 127/78 96 07/02/18 04:00 78 27 127/76 96 07/02/18 03:53 97.1 F L 07/02/18 03:47 27 97 07/02/18 03:00 78 27 107/75 95 07/02/18 02:00 78 29 120/72 92 07/02/18 01:00 64 17 115/70 97 07/02/18 00:23 97.1 F L 07/02/18 00:00 68 15 115/67 97 07/01/18 23:47 25 167/87 96 07/01/18 23:35 97.1 F L 84 27 167/87 95 07/01/18 23:00 70 20 118/78 99 07/01/18 22:00 72 19 110/67 98 07/01/18 21:00 71 19 133/85 97 07/01/18 20:00 79 26 135/85 96 07/01/18 19:51 16 97 07/01/18 19:35 98.3 F 07/01/18 19:00 84 20 124/83 95 07/01/18 18:00 82 25 127/85 96 07/01/18 17:00 77 28 128/81 94 07/01/18 16:26 100.5 F H 07/01/18 15:00 85 26 126/50 96 07/01/18 14:00 93 33 130/78 95 07/01/18 13:00 91 22 130/78 96 07/01/18 12:00 129 35 127/74 93 07/01/18 11:45 100.3 F H 07/01/18 11:28 22 93 07/01/18 11:00 112 25 109/88 96 07/01/18 10:00 88 30 104/72 97 07/01/18 09:00 82 24 121/65 98 Intake and Output 07/01/18 07/02/18 07/02/18 23:59 07:59 15:59 Intake Total 1765 / 1765 1200 / 1200 Output Total 2049 / 2049 3300 / 3300 1250 / 1250 Balance -285 / -285 -2100 / -2100 -1250 / -1250 Intake: IV Fluids 1765 / 1765 1200 / 1200 Dextrose 5% 1,000 ML @ 125 mls/ 1000 / 1000 1000 / 1000 hr IVC .Q8H NADIA Rx#:[id number] PRECEDEX Premix 400 mcg In 100 200 / 200 200 / 200 ml @ 0.2 MCG/KG/HR 6.65 mls/hr IVC .Q15H3M NADIA Rx#:[id number] Zovirax 750 MG In Dextrose 5% 265 / 265 250 ML @ 265 mls/hr IVPB Q12H NADIA Rx#:[id number] Diflucan Premix 200 MG/100 ML 100 / 100 200 mg In 100 ml @ 100 mls/hr IVPB Q24H NADIA Rx#:[id number] Potassium Chloride 10 mEq/100mL 200 / 200 10 meq In 100 ml @ 100 mls/hr IVPB Q1H NADIA Rx#:[id number] Output: Catheter 2050 / 2050 3300 / 3300 1250 / 1250 Other: Weight 111.5 kg Blood Glucose* 145 140 180 Patient Weight 07/02/18 23:59 Weight 111.5 kg - General Appearance Exam: Gen: Vitals noted. No acute distress. On BiPAP HEENT: Normocephalic, atraumatic. Dry mucous membranes. Neck: Supple. No adenopathy. Right internal jugular temporary hemodialysis catheter in place with no erythema surrounding Cardiac: RRR, no murmur, +S1/S2 Pulmonary: Clear to auscultation bilaterally, diminished in the right lung base Abdomen: soft, nontender, no guarding Extremities: 2+ bilateral lower extremity edema, nontender calf, no cyanosis or clubbing Neuro: Patient has been extubated and is largely off sedation. Follows commands. - Lab 07/02/18 03:25 07/02/18 11:50 Most recent lab results ABG pH 7.45 pH Units (7.32-7.45) 07/01/18 04:42 ABG pCO2 46 mmHg (35-45) H 07/01/18 04:42 ABG pO2 60 mmHg (85-104) L 07/01/18 04:42 ABG HCO3 32 mEq/L (21-27) H 07/01/18 04:42 ABG O2 Saturation 91 % (95-98) L 07/01/18 04:42 Calcium 8.4 mg/dL (8.6-10.3) L 07/02/18 03:25 Phosphorus 5.6 mg/dL (2.7-4.5) H 07/01/18 03:00 Magnesium 2.0 mg/dL (1.6-2.6) 07/01/18 03:00 Urine Creatinine 31 mg/dL 06/30/18 09:34 Urine Sodium 40.6 mEq/L 06/30/18 09:34 Urine Total Protein 52 mg/dL (1-14) H 06/30/18 09:34 - VTE Documentation of Mechanical Device: Intermittent pneumatic compression device Consult Discharge Plan - Plan Referrals: Sheryl Stahl CNP [Primary Care Provider] -
[2018-07-02] MEDS: Norepinephrine 4 MG in D5% in Water 250 ML IVC SCH (09:05)
[2018-07-02 09:19] LABS: ABG Base Excess 7 mEq/L (-2 to 3); ABG HCO3 34 mEq/L (21-27); ABG Oxygen Saturation 94 % (95-98); ABG PCO2 62 mmHg (35-45); ABG PH 7.35 pH Units (7.32-7.45); ABG PO2 79 mmHg (85-104); ABG TCO2 36 mEq/L (20-26)
[2018-07-02 12:26] LABS: Calcium 8.7 mg/dL (8.6-10.3); Potassium 3.5 mEq/L (3.5-5.1)
[2018-07-02] MEDS ORDERED: *HR* FentaNYL (PF) 100 MCG/2 ML VIAL ONE (13:27)
[2018-07-02] MEDS ORDERED: Ringers Solution, Lactated 500 ML IVC ONE (13:27)
[2018-07-02] MEDS ORDERED: Ringers Solution, Lactated 1,000 ML ONE (13:31)
[2018-07-02] MEDS ORDERED: Artificial Tears SOLN 15 ML BOTTLE BOTH EYES PRN (13:58)
--- NOTE | 2018-07-02 14:03 | Procedure Note ---
Date of procedure: 07/02/18 Pre-op diagnosis: Respiratory Failure Post-op diagnosis: same Procedure: Patient with increasing respiratory distress and encephalopathy leading to need for endotracheal intubation family was notified prior to event Surgeon: Maximo Mcdaniel Was there an legislative assistant present: No Estimated blood loss (cc): 0 Specimen: none Disposition: no change Procedures: Internal Med - Intubation Sedative: propofol (150mg) Laryngoscope: glidescope ET tube size: 7 ET tube uncuffed: No Tube secured depth (cm): 24 Tube placement confirmation: visualized tube passing through cords, equal breath sounds bilaterally, no breath sounds over epigastrium, confirmation by capnometry Patient tolerated procedure: well Intubation complications: other (2 attempts were needed [address] place endotracheal tube given the anterior anatomy of the patient's upper airway) Additional comments: Chest x-ray pending to confirm placement
[2018-07-02] MEDS: FentaNYL (PF) 1,000 MCG in 0.9 % Sodium Chloride 80 ML IVC SCH (14:37)
[2018-07-02 14:49] LABS: ABG Base Excess 8 mEq/L (-2 to 3); ABG HCO3 33 mEq/L (21-27); ABG Oxygen Saturation 92 % (95-98); ABG PCO2 53 mmHg (35-45); ABG PH 7.41 pH Units (7.32-7.45); ABG PO2 65 mmHg (85-104); ABG TCO2 35 mEq/L (20-26); Blood Gas Modality ASSIST CONTROL; Blood Gas PEEP 5 cm H2O; Blood Gas Respiration Rate 16; Blood Gas VT 500 cc
--- NOTE | 2018-07-02 15:29 | Infectious Disease Progress No ---
Date of Encounter: 07/02/18 Time of Encounter: 11:00 - Assessment and Plan (1) Septic shock Current Visit: Yes Status: Acute The patient had 4 SIRS criteria plus lactic acidosis, acute kidney injury, acute encephalopathy, and hypotension requiring vasopressors. Likely secondary to candidemia, UTI, possible HSV encephalitis. Improved. Leukocytosis continues to improve. Hypothermia resolved, but did have Tmax 101.4 over the weekend and Tmax 100.5 over the weekend. Tachycardia resolved. Acute kidney injury improved initially, but serum creatinine on the rise. Blood cultures obtained 06/17/18 are +2 out of 2 sets for Marisela albicans, nation- sensitive. Repeat blood cultures obtained 06/19/18 are negative 2 sets. Repeat urine culture is growing GNR. Currently on day 14 of fluconazole. Acyclovir discontinued by the primary team. No further recommendations from the ID team. Will sign off. Please re-consult PRN. (2) Candidemia Current Visit: Yes Status: Acute Causative organism: Marisela albicans. Source: unclear. CT of the abdomen and pelvis is negative. He has no indwelling lines or catheters. His urine culture is positive for C. albicans. Blood cultures obtained 06/17/18 are +2 out of 2 sets for Marisela albicans, nation- sensitive. Repeat blood cultures obtained 06/19/18 are negative 2 sets. Continue fluconazole 200mg IV daily. Dose-adjusted for diminished CrCl. (day 14) Repeat LFTs normal. Duration of treatment depends on the clinical picture, but recommend a total of 14 days. Monitor liver function tests closely. Recommend ophthalmology to evaluate once patient stabilizes. (3) Pneumonia Current Visit: Yes Status: Suspected Location: Bilateral lower lobes. Causative organism: Unclear. Consider aspiration since the patient had altered mental status and was recently intubated. CT of the chest showed bilateral lower lobe infiltrates versus atelectasis. The patient does have a large amount of secretions coming from his ET tube. Discussed with the pulmonary team. Concern for pneumonia from their standpoint. MRSA screen completed 06/17/18 is negative. Sputum culture is NGTD. Check S. pneumo and Legionella UAT.--> negative. Check RIP.--> negative. Repeat CXR 06/23/18 showed mild pulmonary vascular congestion and atelectasis and mild pleural effusion at the right lung base, increased. CT scan of the chest 06/23/18 negative for PNA. CXR 07/01/18 showed stable RLL disease and improved LLL disease. Will discuss results with pulmonary. Not clear if this is pneumonia vs. edema vs. atelectasis. Vanc and Zosyn discontinued 06/25/18 after 9 days. CXR today showed findings consistent with edema and atelectasis, but no PNA. Qualifiers: Pneumonia type: due to unspecified organism Laterality: bilateral Lung location: lower lobe of lung Qualified Code(s): J18.1 - Lobar pneumonia, unspecified organism (4) UTI (urinary tract infection) Current Visit: Yes Status: Acute Causative organism: C. albicans. Per the patient's , asymptomatic prior to admission. Continue fluconazole as above. Qualifiers: Urinary tract infection type: site unspecified Hematuria presence: without hematuria Qualified Code(s): N39.0 - Urinary tract infection, site not specified (5) Encephalopathy Current Visit: Yes Status: Acute Etiology unclear, but likely related to sepsis. Per the patient's , the patient did have any complaints of neck pain, stiffness, or headache. Unable to assess mental status since the patient remains intubated and sedated. CT head negative for intracranial abnormality. 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 LP attempted by the pulm/CC team and IR was unsuccessful. Neurology consulted. Appreciate recommendations. Acyclovir stopped by the pulmonary team. Will sign off. No further recommendations from the ID team. Please re-consult PRN. (6) LUCILA (acute kidney injury) Current Visit: Yes Status: Acute Likely multifactorial: sepsis + hypotension + other. CRRT started 06/19/18 and stopped 06/26/18. Creatinine improved initially, but trending back up. Urine output remains adequate. Nephrology consulted and following. Continue to trend. Dose-adjust medications. (7) Lactic acidosis Current Visit: Yes Status: Resolved Likely secondary to sepsis. Resolved. (8) Thrombocytopenia Current Visit: Yes Status: Resolved Likely secondary to sepsis. LFTs abnormal on admission. Repeat LFTs normal. Improved. Continue to trend. No acute bleeding noted on exam. Further workup and management per the primary team. (9) Acute respiratory failure with hypoxemia Current Visit: Yes Status: Acute Likely secondary to PNA vs. pulmonary edema. Extubated 07/01/18. Currently on BIPAP, but still very tachypneic. Management per the pulmonary team. (10) Systolic heart failure Current Visit: Yes Status: Acute TTE was sub-optimal, but showed approximate EF 20%. Qualifiers: Heart failure chronicity: unspecified Qualified Code(s): I50.20 - Unspecified systolic (congestive) heart failure (11) Hypokalemia Current Visit: Yes Status: Resolved Resolved. (12) Elevated troponin Current Visit: Yes Status: Acute Management per the primary team. (13) Type 2 diabetes mellitus Current Visit: Yes Status: Chronic Recommend aggressive glucose monitoring and control. Management per the primary team. Qualifiers: Diabetes mellitus intermediate card tender insulin use: with usp use Diabetes mellitus complication status: with unspecified complications Qualified Code(s) : E11.8 - Type 2 diabetes mellitus with unspecified complications; Z79.4 - termite helper (current) use of insulin (14) COPD (chronic obstructive pulmonary disease) Current Visit: Yes Status: Chronic Qualifiers: COPD type: emphysema Emphysema type: unspecified Qualified Code(s): J43.9 - Emphysema, unspecified (15) Oral lesion Current Visit: Yes Status: Acute Noted to the tongue. PCR positive for HSV 1. Acyclovir stopped by the pulmonary team. (16) Sinusitis Current Visit: Yes Status: Acute CT of the head 06/23/18 showed sinusitis of the bilateral sphenoid and ethmoid sinuses. Causative organism unclear. Treated with 9 days of Vanc and Zosyn. Qualifiers: Sinusitis location: unspecified location Chronicity: acute Recurrence: non-recurrent Qualified Code(s): J01.90 - Acute sinusitis, unspecified - Subjective Interval history: Patient seen and examined. No acute events noted overnight. Patient awake, alert and currently on BIPAP. Tachypneic, but maintaining adequate O2 sats. Answers yes/no questions and follows most commands. No new issues per nursing. Infect Dis PN-Objective Data - Labs CBC & Chem 7: 07/03/18 04:00 07/03/18 08:50 Labs: Laboratory Results - last 24 hr 06/30/18 07/01/18 07/01/18 09:33 09:48 15:31 WBC RBC Hgb Hct MCV MCH MCHC RDW Plt Count MPV Immature Gran % Seg Neutrophils % Lymphocytes % Monocytes % Eosinophils % Basophils % Neutrophils # Lymphocytes # Monocytes # Eosinophils # Basophils # Sample Site ABG pH ABG pCO2 ABG pO2 ABG HCO3 ABG Total CO2 ABG O2 Saturation ABG Base Excess Michael Test Respiration Rate O2 Delivery Device Blood Gas Modality Inspired O2 Tidal Volume PEEP Sodium Potassium Chloride Carbon Dioxide BUN Creatinine Est GFR ( Amer) Est GFR (Non-Af Amer) BUN/Creatinine Ratio Glucose POC Glucose 187 H Serum Osmolality 327 H Calculated Osmolality Calcium Urine Osmolality 200 L 07/01/18 07/01/18 07/01/18 17:55 19:28 23:32 WBC RBC Hgb Hct MCV MCH MCHC RDW Plt Count MPV Immature Gran % Seg Neutrophils % Lymphocytes % Monocytes % Eosinophils % Basophils % Neutrophils # Lymphocytes # Monocytes # Eosinophils # Basophils # Sample Site ABG pH ABG pCO2 ABG pO2 ABG HCO3 ABG Total CO2 ABG O2 Saturation ABG Base Excess Michael Test Respiration Rate O2 Delivery Device Blood Gas Modality Inspired O2 Tidal Volume PEEP Sodium 155 H Potassium 3.8 Chloride 115 H Carbon Dioxide 33 H BUN 30 H Creatinine 2.58 H Est GFR ( Amer) 32 L Est GFR (Non-Af Amer) 26 L BUN/Creatinine Ratio 12 Glucose 169 H POC Glucose 145 H 140 H Serum Osmolality Calculated Osmolality 330 H Calcium 8.4 L Urine Osmolality 07/02/18 07/02/18 07/02/18 03:18 03:25 03:25 WBC 13.6 H RBC 2.42 L Hgb 7.7 L Hct 25.3 L MCV 104.5 H MCH 31.8 MCHC 30.4 L RDW 16.4 H Plt Count 119 L MPV 11.6 Immature Gran % 0.6 Seg Neutrophils % 80.7 Lymphocytes % 11.0 Monocytes % 5.0 Eosinophils % 2.3 Basophils % 0.4 Neutrophils # 11.0 H Lymphocytes # 1.5 Monocytes # 0.7 Eosinophils # 0.3 Basophils # 0.1 Sample Site ABG pH ABG pCO2 ABG pO2 ABG HCO3 ABG Total CO2 ABG O2 Saturation ABG Base Excess Michael Test Respiration Rate O2 Delivery Device Blood Gas Modality Inspired O2 Tidal Volume PEEP Sodium 154 H Potassium 3.8 Chloride 115 H Carbon Dioxide 33 H BUN 29 H Creatinine 2.60 H Est GFR ( Amer) 31 L Est GFR (Non-Af Amer) 26 L BUN/Creatinine Ratio 11 Glucose 216 H POC Glucose 216 H Serum Osmolality Calculated Osmolality 330 H Calcium 8.4 L Urine Osmolality 07/02/18 07/02/1818 07:19 09:16 11:43 WBC RBC Hgb Hct MCV MCH MCHC RDW Plt Count MPV Immature Gran % Seg Neutrophils % Lymphocytes % Monocytes % Eosinophils % Basophils % Neutrophils # Lymphocytes # Monocytes # Eosinophils # Basophils # Sample Site L Radial ABG pH 7.35 ABG pCO2 62 H ABG pO2 79 L ABG HCO3 34 H ABG Total CO2 36 H ABG O2 Saturation 94 L ABG Base Excess 7 H Michael Test Positive Respiration Rate O2 Delivery Device BiPAP Blood Gas Modality Inspired O2 60.0 Tidal Volume PEEP Sodium Potassium Chloride Carbon Dioxide BUN Creatinine Est GFR ( Amer) Est GFR (Non-Af Amer) BUN/Creatinine Ratio Glucose POC Glucose 180 H 142 H Serum Osmolality Calculated Osmolality Calcium Urine Osmolality 07/02/18 07/02/18 11:50 14:45 WBC RBC Hgb Hct MCV MCH MCHC RDW Plt Count MPV Immature Gran % Seg Neutrophils % Lymphocytes % Monocytes % Eosinophils % Basophils % Neutrophils # Lymphocytes # Monocytes # Eosinophils # Basophils # Sample Site L Radial ABG pH 7.41 ABG pCO2 53 H ABG pO2 65 L ABG HCO3 33 H ABG Total CO2 35 H ABG O2 Saturation 92 L ABG Base Excess 8 H Michael Test N/A Respiration Rate 16 O2 Delivery Device Adult Vent Blood Gas Modality ASSIST CONTROL Inspired O2 45.0 Tidal Volume 500 PEEP 5 Sodium 157 H Potassium 3.5 Chloride 117 H Carbon Dioxide 35 H BUN 29 H Creatinine 2.60 H Est GFR ( Amer) 31 L Est GFR (Non-Af Amer) 26 L BUN/Creatinine Ratio 11 Glucose 153 H POC Glucose Serum Osmolality Calculated Osmolality 333 H Calcium 8.7 Urine Osmolality Cultures: Cultures 07/01/18 09:03 Urine Culture - Preliminary Urine,Catheterized Gram Negative Eduardo 06/24/18 11:35 Blood Culture - Final Peripheral Venipuncture No growth. Final report. 06/24/18 11:35 Blood Culture - Final Peripheral Venipuncture No growth. Final report. 06/19/18 12:46 Blood Culture - Final Peripheral Venipuncture No growth. Final report. 06/19/18 12:46 Blood Culture - Final Peripheral Venipuncture No growth. Final report. 06/18/18 20:45 Sputum Culture - Final Sputum 06/20/18 11:30 Legionella Antigen - Final Urine,[place] Streptococcus pneumoniae Antigen (M - Final Serology 07/01/18 06/30/18 06/30/18 Range/Units 09:03 09:34 09:34 Urine Color Yellow (Yellow) Urine Clarity Clear (Clear) Urine pH 7.0 (5.0-8.0) pH Units Ur Specific Ethel < 1.005 L (1.010-1.025) Urine Protein Trace (Neg-Trace) mg/dL Urine Glucose (UA) Normal (Normal) mg/dL Urine Ketones Negative (Negative) mg/dL Urine Blood Moderate H (Negative) Urine Nitrite Negative (Negative) Urine Bilirubin Negative (Negative) Urine Urobilinogen Normal (Normal) mg/dL Ur Leukocyte Esterase Moderate H (Negative) Urine Microscopic RBC 3-5 H (0-3) per hpf Urine Microscopic WBC 50-100 H (0-3) per hpf Ur Eosinophil Smear 0 (None Seen) % Ur Squamous Epith Cells None Seen (None-Few) per lpf Urine Bacteria Many H (None-Few) per hpf Hyaline Casts None Seen (None-Few) per lpf Urine Osmolality (300-1090) mOsm/kg Urine Creatinine 31 mg/dL Protein/Creatinin Ratio 1.68 H (0.00-0.20) mg/mg Urine Sodium 40.6 mEq/L Urine Potassium mEq/L Urine Chloride mEq/L Urine Total Protein 52 H (1-14) mg/dL Nasal Screen MRSA (PCR) (Negative) Chlamy pneumoniae PCR (Not Detect) Adenovirus (PCR) (Not Detect) B. pertussis DNA (PCR) (Not Detect) B.parapertussis DNA PCR (Not Detect) Coronavirus OC43 (PCR) (Not Detect) Coronavirus HKU1 (PCR) (Not Detect) Coronavirus 229E (PCR) (Not Detect) Coronavirus NL63 (PCR) (Not Detect) Hep Bs Antigen (Nonreactive) Hep Bs Antibody mIU/mL Herpes Simplex Source HSV I (Not Detect) HSV II (Not Detect) HIV Ag/Ab Combo Qual (Nonreactive) Human Metapneumovir PCR (Not Detect) Influenza A (H1) PCR (Not Detect) Influ A (H1N1/09) PCR (Not Detect) Influenza A (H3) PCR (Not Detect) Influenza A Untype (PCR) (Not Detect) Influenza Type B (PCR) (Not Detect) M.pneumoniae DNA (PCR) (Not Detect) Parainfluenza 1 (PCR) (Not Detect) Parainfluenza 2 (PCR) (Not Detect) Parainfluenza 3 (PCR) (Not Detect) Parainfluenza 4 (PCR) (Not Detect) RSV (PCR) (Not Detect) Entero/Rhino (PCR) (Not Detect) 06/30/18 06/24/18 06/24/18 Range/Units 09:33 15:10 11:15 Urine Color Yellow (Yellow) Urine Clarity Hazy (Clear) Urine pH 6.0 (5.0-8.0) pH Units Ur Specific Ethel 1.013 (1.010-1.025) Urine Protein 30 H (Neg-Trace) mg/dL Urine Glucose (UA) Normal (Normal) mg/dL Urine Ketones Negative (Negative) mg/dL Urine Blood Moderate H (Negative) Urine Nitrite Negative (Negative) Urine Bilirubin Small H (Negative) Urine Urobilinogen Normal (Normal) mg/dL Ur Leukocyte Esterase Moderate H (Negative) Urine Microscopic RBC 3-5 H (0-3) per hpf Urine Microscopic WBC 50-100 H (0-3) per hpf Ur Eosinophil Smear (None Seen) % Ur Squamous Epith Cells Many H (None-Few) per lpf Urine Bacteria None Seen (None-Few) per hpf Hyaline Casts None Seen (None-Few) per lpf Urine Osmolality 200 L (300-1090) mOsm/kg Urine Creatinine mg/dL Protein/Creatinin Ratio (0.00-0.20) mg/mg Urine Sodium mEq/L Urine Potassium mEq/L Urine Chloride mEq/L Urine Total Protein (1-14) mg/dL Nasal Screen MRSA (PCR) (Negative) Chlamy pneumoniae PCR (Not Detect) Adenovirus (PCR) (Not Detect) B. pertussis DNA (PCR) (Not Detect) B.parapertussis DNA PCR (Not Detect) Coronavirus OC43 (PCR) (Not Detect) Coronavirus HKU1 (PCR) (Not Detect) Coronavirus 229E (PCR) (Not Detect) Coronavirus NL63 (PCR) (Not Detect) Hep Bs Antigen (Nonreactive) Hep Bs Antibody mIU/mL Herpes Simplex Source [place] HSV I DETECTED A (Not Detect) HSV II Not Detected (Not Detect) HIV Ag/Ab Combo Qual (Nonreactive) Human Metapneumovir PCR (Not Detect) Influenza A (H1) PCR (Not Detect) Influ A (H1N1/09) PCR (Not Detect) Influenza A (H3) PCR (Not Detect) Influenza A Untype (PCR) (Not Detect) Influenza Type B (PCR) (Not Detect) M.pneumoniae DNA (PCR) (Not Detect) Parainfluenza 1 (PCR) (Not Detect) Parainfluenza 2 (PCR) (Not Detect) Parainfluenza 3 (PCR) (Not Detect) Parainfluenza 4 (PCR) (Not Detect) RSV (PCR) (Not Detect) Entero/Rhino (PCR) (Not Detect) 06/23/18 06/23/18 06/20/18 Range/Units 20:00 08:10 11:30 Urine Color (Yellow) Urine Clarity (Clear) Urine pH (5.0-8.0) pH Units Ur Specific Ethel (1.010-1.025) Urine Protein (Neg-Trace) mg/dL Urine Glucose (UA) (Normal) mg/dL Urine Ketones (Negative) mg/dL Urine Blood (Negative) Urine Nitrite (Negative) Urine Bilirubin (Negative) Urine Urobilinogen (Normal) mg/dL Ur Leukocyte Esterase (Negative) Urine Microscopic RBC (0-3) per hpf Urine Microscopic WBC (0-3) per hpf Ur Eosinophil Smear (None Seen) % Ur Squamous Epith Cells (None-Few) per lpf Urine Bacteria (None-Few) per hpf Hyaline Casts (None-Few) per lpf Urine Osmolality (300-1090) mOsm/kg Urine Creatinine mg/dL Protein/Creatinin Ratio (0.00-0.20) mg/mg Urine Sodium mEq/L Urine Potassium mEq/L Urine Chloride mEq/L Urine Total Protein (1-14) mg/dL Nasal Screen MRSA (PCR) (Negative) Chlamy pneumoniae PCR Not Detected (Not Detect) Adenovirus (PCR) Not Detected (Not Detect) B. pertussis DNA (PCR) Not Detected (Not Detect) B.parapertussis DNA PCR Not Detected (Not Detect) Coronavirus OC43 (PCR) Not Detected (Not Detect) Coronavirus HKU1 (PCR) Not Detected (Not Detect) Coronavirus 229E (PCR) Not Detected (Not Detect) Coronavirus NL63 (PCR) Not Detected (Not Detect) Hep Bs Antigen Nonreactive (Nonreactive) Hep Bs Antibody 0.00 mIU/mL Herpes Simplex Source HSV I (Not Detect) HSV II (Not Detect) HIV Ag/Ab Combo Qual Nonreactive (Nonreactive) Human Metapneumovir PCR Not Detected (Not Detect) Influenza A (H1) PCR Not Detected (Not Detect) Influ A (H1N1/09) PCR Not Detected (Not Detect) Influenza A (H3) PCR Not Detected (Not Detect) Influenza A Untype (PCR) Not Detected (Not Detect) Influenza Type B (PCR) Not Detected (Not Detect) M.pneumoniae DNA (PCR) Not Detected (Not Detect) Parainfluenza 1 (PCR) Not Detected (Not Detect) Parainfluenza 2 (PCR) Not Detected (Not Detect) Parainfluenza 3 (PCR) Not Detected (Not Detect) Parainfluenza 4 (PCR) Not Detected (Not Detect) RSV (PCR) Not Detected (Not Detect) Entero/Rhino (PCR) Not Detected (Not Detect) 06/18/18 06/18/18 06/17/18 Range/Units 10:28 10:28 18:15 Urine Color (Yellow) Urine Clarity (Clear) Urine pH (5.0-8.0) pH Units Ur Specific Ethel (1.010-1.025) Urine Protein (Neg-Trace) mg/dL Urine Glucose (UA) (Normal) mg/dL Urine Ketones (Negative) mg/dL Urine Blood (Negative) Urine Nitrite (Negative) Urine Bilirubin (Negative) Urine Urobilinogen (Normal) mg/dL Ur Leukocyte Esterase (Negative) Urine Microscopic RBC (0-3) per hpf Urine Microscopic WBC (0-3) per hpf Ur Eosinophil Smear (None Seen) % Ur Squamous Epith Cells (None-Few) per lpf Urine Bacteria (None-Few) per hpf Hyaline Casts (None-Few) per lpf Urine Osmolality 343 (300-1090) mOsm/kg Urine Creatinine mg/dL Protein/Creatinin Ratio (0.00-0.20) mg/mg Urine Sodium 128.8 mEq/L Urine Potassium 36.5 7.5 mEq/L Urine Chloride 135 mEq/L Urine Total Protein (1-14) mg/dL Nasal Screen MRSA (PCR) (Negative) Chlamy pneumoniae PCR (Not Detect) Adenovirus (PCR) (Not Detect) B. pertussis DNA (PCR) (Not Detect) B.parapertussis DNA PCR (Not Detect) Coronavirus OC43 (PCR) (Not Detect) Coronavirus HKU1 (PCR) (Not Detect) Coronavirus 229E (PCR) (Not Detect) Coronavirus NL63 (PCR) (Not Detect) Hep Bs Antigen (Nonreactive) Hep Bs Antibody mIU/mL Herpes Simplex Source HSV I (Not Detect) HSV II (Not Detect) HIV Ag/Ab Combo Qual (Nonreactive) Human Metapneumovir PCR (Not Detect) Influenza A (H1) PCR (Not Detect) Influ A (H1N1/09) PCR (Not Detect) Influenza A (H3) PCR (Not Detect) Influenza A Untype (PCR) (Not Detect) Influenza Type B (PCR) (Not Detect) M.pneumoniae DNA (PCR) (Not Detect) Parainfluenza 1 (PCR) (Not Detect) Parainfluenza 2 (PCR) (Not Detect) Parainfluenza 3 (PCR) (Not Detect) Parainfluenza 4 (PCR) (Not Detect) RSV (PCR) (Not Detect) Entero/Rhino (PCR) (Not Detect) 06/17/18 06/17/18 Range/Units 11:56 11:30 Urine Color (Yellow) Urine Clarity (Clear) Urine pH (5.0-8.0) pH Units Ur Specific Ethel (1.010-1.025) Urine Protein (Neg-Trace) mg/dL Urine Glucose (UA) (Normal) mg/dL Urine Ketones (Negative) mg/dL Urine Blood (Negative) Urine Nitrite (Negative) Urine Bilirubin (Negative) Urine Urobilinogen (Normal) mg/dL Ur Leukocyte Esterase (Negative) Urine Microscopic RBC (0-3) per hpf Urine Microscopic WBC (0-3) per hpf Ur Eosinophil Smear (None Seen) % Ur Squamous Epith Cells (None-Few) per lpf Urine Bacteria (None-Few) per hpf Hyaline Casts (None-Few) per lpf Urine Osmolality (300-1090) mOsm/kg Urine Creatinine mg/dL Protein/Creatinin Ratio (0.00-0.20) mg/mg Urine Sodium mEq/L Urine Potassium mEq/L Urine Chloride mEq/L Urine Total Protein (1-14) mg/dL Nasal Screen MRSA (PCR) Negative (Negative) Chlamy pneumoniae PCR Not Detected (Not Detect) Adenovirus (PCR) Not Detected (Not Detect) B. pertussis DNA (PCR) Not Detected (Not Detect) B.parapertussis DNA PCR Not Detected (Not Detect) Coronavirus OC43 (PCR) Not Detected (Not Detect) Coronavirus HKU1 (PCR) Not Detected (Not Detect) Coronavirus 229E (PCR) Not Detected (Not Detect) Coronavirus NL63 (PCR) Not Detected (Not Detect) Hep Bs Antigen (Nonreactive) Hep Bs Antibody mIU/mL Herpes Simplex Source HSV I (Not Detect) HSV II (Not Detect) HIV Ag/Ab Combo Qual (Nonreactive) Human Metapneumovir PCR Not Detected (Not Detect) Influenza A (H1) PCR Not Detected (Not Detect) Influ A (H1N1/09) PCR Not Detected (Not Detect) Influenza A (H3) PCR Not Detected (Not Detect) Influenza A Untype (PCR) Not Detected (Not Detect) Influenza Type B (PCR) Not Detected (Not Detect) M.pneumoniae DNA (PCR) Not Detected (Not Detect) Parainfluenza 1 (PCR) Not Detected (Not Detect) Parainfluenza 2 (PCR) Not Detected (Not Detect) Parainfluenza 3 (PCR) Not Detected (Not Detect) Parainfluenza 4 (PCR) Not Detected (Not Detect) RSV (PCR) Not Detected (Not Detect) Entero/Rhino (PCR) Not Detected (Not Detect) - Impressions Impressions Guidance Ultrasound 06/20/18 00:00 IMPRESSION: Successful ultrasound guided non-tunneled dialysis catheter placement. D/ / Ajay Winters MD / Ajay Winters MD Interpreting Provider: Ajay Winters MD Insertion Non-Tunneled Catheter 06/20/18 00:00 IMPRESSION: Successful ultrasound guided non-tunneled dialysis catheter placement. D/ / Ajay Winters MD / Ajay Winters MD Interpreting Provider: Ajay Winters MD Chest X-Ray 07/02/18 07:53 IMPRESSION: 1. Interval extubation. No pneumothorax. 2. Stable pulmonary vascular congestion. 3. Slightly improved small right pleural effusion with overlying atelectasis/infiltrate. D/ / Leon Astorga MD / Leon Astorga MD Interpreting Provider: Leon Astorga MD Chest X-Ray 07/02/18 13:56 IMPRESSION: Placement of endotracheal tube with tip 2.5 cm from the sanjeev. Placement of enteric tube which is seen to extend into the stomach, distal extent not definitely included in the field of view. Persistent likely mild right basilar atelectasis along with layering right pleural effusion as well as some mild pulmonary vascular congestion but no overt pulmonary edema. D/ / 07/02/2018 14:23:01 Ian Moore MD / [place] Interpreting Provider: Ian Moore MD KUB X-Ray 07/02/18 13:56 IMPRESSION: The distal end of the orogastric tube is either within the distal stomach or proximal duodenum. D/ / Leon Astorga MD / Leon Astorga MD Interpreting Provider: Leon Astorga MD Exam - Constitutional Vitals: Temp Pulse Resp BP Pulse Ox 98.5 F 93 20 115/76 92 07/02/18 12:13 07/02/18 14:00 07/02/18 14:00 07/02/18 14:00 07/02/18 14:00 General appearance: cooperative, no acute distress, obese - Head Head exam: Present: atraumatic, normal inspection, normocephalic - Eye Eye exam: Present: EOMI, normal appearance, PERRL Pupils: Present: normal accommodation - ENT ENT exam: Present: mucous membranes dry Additional comments: HSV lesions to the lips and tongue continue to improve. - Neck Neck exam: Present: normal inspection Additional comments: Temporary HD catheter noted to the right neck with transparent dressing C/D/I. - Respiratory Respiratory exam: Present: rhonchi (Scattered), tachypnea. Absent: rales, respiratory distress - Cardiovascular Cardiovascular exam: Present: RRR, +S1, +S2 - GI/Abdominal GI/Abdominal exam: Present: distended (obese), normal bowel sounds, soft. Absent: tenderness Additional comments: [place] catheter noted to be draining clear yellow urine. - Extremities Exam Extremities exam: Present: pedal edema (Trace BLE) - Neurological Exam Neurological exam: Present: alert, no focal deficits (TORRES x 4 on command.) - Skin Skin exam: Present: dry, intact, normal color, warm - VTE Documentation of Mechanical Device: Intermittent pneumatic compression device Consult Discharge Plan - Plan Referrals: Sheryl Stahl DIRECTOR CAREER SERVICES [Primary Care Provider] - - Attending Attestation I examined this patient and my medical decision-making was reviewed with the Resident Physician. I agree with the documented findings, disposition and treatment plan as described except to the extent set forth below.
[2018-07-02] MEDS: Fluconazole 200 MG/100 ML IVPB SCH (15:53)
[2018-07-02 16:59] LABS: Calcium 8.6 mg/dL (8.6-10.3); Potassium 3.6 mEq/L (3.5-5.1)
[2018-07-02] MEDS: Scopolamine Patch 1.5 MG PATCH.TD72 TD SCH (17:03)
[2018-07-02 23:37] LABS: Calcium 8.5 mg/dL (8.6-10.3); Potassium 3.2 mEq/L (3.5-5.1)
[2018-07-03] MEDS: FentaNYL (PF) 1,000 MCG in 0.9 % Sodium Chloride 80 ML IVC SCH ×3 (02:21→13:15)
[2018-07-03] MEDS: Artificial Tears SOLN 15 ML BOTTLE BOTH EYES SCH ×7 (04:09→20:07)
[2018-07-03] MEDS: Insulin LISPRO 300 UNITS/3 ML VIAL SQ SCH ×5 (04:10→19:54)
[2018-07-03 04:25] LABS: Basophils # 0.1 K/mcL (0.0-0.2); Basophils % 0.8 %; Eosinophils # 0.3 K/mcL (0.0-0.6); Eosinophils % 2.7 %; Hematocrit 22.9 % (37.5-50.1); Hemoglobin 6.9 g/dL (12.9-16.9); Immature Granulocytes % 0.3 % (0-4); Lymphocytes # 2.1 K/mcL (0.6-4.6); Lymphocytes % 16.6 %; Mean Corpuscular HGB Conc 30.1 g/dL (31.6-35.5); Mean Corpuscular Hemoglobin 31.1 pg (28.0-33.3); Mean Corpuscular Volume 103.2 fL (83.0-100.0); Mean Platelet Volume 11.7 fL (9.4-12.4); Monocytes # 0.6 K/mcL (0.0-1.3); Monocytes % 4.8 %; Neutrophils # 9.5 K/mcL (1.6-8.9); Platelet Count 142 K/mcL (140-400); Red Blood Count 2.22 M/mcL (4.19-5.50); Red Cell Distribution Width 16.5 % (11.5-14.5); Segmented Neutrophils % 74.8 %
[2018-07-03 04:27] LABS: ABG Base Excess 8 mEq/L (-2 to 3); ABG HCO3 33 mEq/L (21-27); ABG Oxygen Saturation 88 % (95-98); ABG PCO2 50 mmHg (35-45); ABG PH 7.43 pH Units (7.32-7.45); ABG PO2 54 mmHg (85-104); ABG TCO2 34 mEq/L (20-26); Blood Gas Modality ASSIST CONTROL; Blood Gas PEEP 5 cm H2O; Blood Gas Respiration Rate 16; Blood Gas VT 460 cc
[2018-07-03 04:41] LABS: Calcium 8.4 mg/dL (8.6-10.3); Potassium 3.1 mEq/L (3.5-5.1)
[2018-07-03] MEDS: *HR* Heparin 5,000 UNIT/ML VIAL SQ SCH ×2 (06:24→16:40)
[2018-07-03] MEDS ORDERED: Potassium Chloride Elixir 20 MEQ/15 ML UDC GTUBE ONE (07:41)
--- NOTE | 2018-07-03 07:44 | Pulmonology Progress Note ---
<JonasMaximo W - Last Filed: 07/03/18 09:01> Date of Encounter: 07/03/18 Objective PUL Vital signs: Last Vital Signs Temp 98.5 F 07/03/18 04:00 Pulse 73 07/03/18 08:00 Resp 16 07/03/18 08:00 BP 108/57 07/03/18 08:00 Pulse Ox 94 07/03/18 08:00 Ventilator Settings Ventilator Settings: Ventilator Settings, Last 8 Hours Ventilator Tidal Volume 460 Setting Ventilator Tidal Volume 460 Setting Ventilator Tidal Volume 460 Setting Ventilator Tidal Volume 460 Setting Ventilator Tidal Volume 460 Setting Ventilator Tidal Volume 460 Setting Ventilator Tidal Volume 480 Setting Ventilator Tidal Volume 480 Setting Ventilator Respiratory Rate 16 Setting Ventilator Respiratory Rate 16 Setting Ventilator Respiratory Rate 16 Setting Ventilator Respiratory Rate 16 Setting Ventilator Respiratory Rate 16 Setting Ventilator Respiratory Rate 16 Setting Ventilator Respiratory Rate 16 Setting Ventilator Respiratory Rate 16 Setting Actual Respiratory Rate 16 Actual Respiratory Rate 17 Actual Respiratory Rate 17 Actual Respiratory Rate 17 Actual Respiratory Rate 16 Actual Respiratory Rate 20 Positive End Expiratory 12 Pressure Positive End Expiratory 5 Pressure Positive End Expiratory 5 Pressure Positive End Expiratory 5 Pressure Positive End Expiratory 5 Pressure Positive End Expiratory 5 Pressure Positive End Expiratory 5 Pressure Positive End Expiratory 5 Pressure Peak Inspiratory Airway 31 Pressure Peak Inspiratory Airway 40 Pressure Peak Inspiratory Airway 22 Pressure Peak Inspiratory Airway 35 Pressure Peak Inspiratory Airway 37 Pressure Peak Inspiratory Airway 31 Pressure Results - Laboratory Findings CBC and BMP: 07/03/18 04:00 07/03/18 04:00 ABG ABG pH 7.43 pH Units (7.32-7.45) 07/03/18 04:22 ABG pCO2 50 mmHg (35-45) H 07/03/18 04:22 ABG pO2 54 mmHg (85-104) L 07/03/18 04:22 ABG O2 Saturation 88 % (95-98) L 07/03/18 04:22 PT/INR, D-dimer PT 16.7 Seconds (9.4-12.1) H 06/22/18 03:45 D-Dimer 3465 ng/mLFEU (0-500) H 06/18/18 08:08 Abnormal lab findings: Abnormal lab results WBC 12.7 K/mcL (4.3-11.1) H 07/03/18 04:00 RBC 2.22 M/mcL (4.19-5.50) L 07/03/18 04:00 Hgb 6.9 g/dL (12.9-16.9) L 07/03/18 04:00 Hct 22.9 % (37.5-50.1) L 07/03/18 04:00 MCV 103.2 fL (83.0-100.0) H 07/03/18 04:00 MCHC 30.1 g/dL (31.6-35.5) L 07/03/18 04:00 RDW 16.5 % (11.5-14.5) H 07/03/18 04:00 Band Neutrophils % 6.0 % (0-4) H 06/27/18 03:00 Metamyelocytes % 2.0 % (0) H 06/27/18 03:00 Myelocytes % 6.0 % (0) H 06/27/18 03:00 Neutrophils # 9.5 K/mcL (1.6-8.9) H 07/03/18 04:00 Nucleated RBCs/100 WBC 0.1 /100 WBC (0) H 06/28/18 03:30 Reactive Lymphocytes Present (Not Present) A 07/01/18 03:00 Toxic Granulation Present (Not Present) A 06/18/18 03:05 Toxic Vacuolation Present (Not Present) A 06/22/18 03:45 Large Platelets Present (Not Present) A 06/23/18 03:15 Polychromasia 1+ (Not Present) A 06/27/18 03:00 Basophilic Stippling 1+ (Not Present) A 06/26/18 04:00 Anisocytosis 1+ (Not Present) A 06/28/18 03:30 Macrocytosis Present (Not Present) A 06/26/18 04:00 PT 16.7 Seconds (9.4-12.1) H 06/22/18 03:45 APTT 62.8 Seconds (26.0-36.0) H 06/23/18 08:00 Fibrinogen 578 mg/dL (169-393) H 06/18/18 08:08 D-Dimer 3465 ng/mLFEU (0-500) H 06/18/18 08:08 ABG pCO2 50 mmHg (35-45) H 07/03/18 04:22 ABG pO2 54 mmHg (85-104) L 07/03/18 04:22 ABG HCO3 33 mEq/L (21-27) H 07/03/18 04:22 ABG Total CO2 34 mEq/L (20-26) H 07/03/18 04:22 ABG O2 Saturation 88 % (95-98) L 07/03/18 04:22 ABG Base Excess 8 mEq/L (-2 to 3) H 07/03/18 04:22 Sodium 157 mEq/L (136-145) H 07/03/18 04:00 Potassium 3.1 mEq/L (3.5-5.1) L 07/03/18 04:00 Chloride 118 mEq/L (98-107) H 07/03/18 04:00 Carbon Dioxide 31 mEq/L (23-29) H 07/03/18 04:00 BUN 29 mg/dL (6-20) H 07/03/18 04:00 Creatinine 2.40 mg/dL (0.70-1.30) H 07/03/18 04:00 Est GFR ( Amer) 34 (> 60) L 07/03/18 04:00 Est GFR (Non-Af Amer) 28 (> 60) L 07/03/18 04:00 Glucose 161 mg/dL (70-105) H 07/03/18 04:00 POC Glucose 148 mg/dL (70-99) H 07/03/18 07:46 Serum Osmolality 327 mOsm/kg (280-300) H 07/01/18 09:48 Calculated Osmolality 333 (280-300) H 07/03/18 04:00 Calcium 8.4 mg/dL (8.6-10.3) L 07/03/18 04:00 Venous Ioniz Calcium 1.13 mmol/L (1.15-1.35) L 07/01/18 03:39 Phosphorus 5.6 mg/dL (2.7-4.5) H 07/01/18 03:00 Iron < 10 mcg/dL (65-175) L 07/01/18 03:00 Transferrin 146 mg/dL (203-362) L 07/01/18 03:00 Ferritin 647 ng/mL (20-250) H 07/01/18 03:00 Direct Bilirubin 0.4 mg/dL (0.0-0.2) H 06/23/18 03:15 AST 55 Units/L (13-39) H 07/01/18 03:00 Troponin I 0.92 ng/mL (< 0.04) H* 06/17/18 22:33 Serum Total Protein 5.9 g/dL (6.4-8.9) L 07/01/18 03:00 Albumin 2.5 g/dL (3.5-5.7) L 07/01/18 03:00 Albumin/Globulin Ratio 0.7 (1.1-2.2) L 07/01/18 03:00 Amylase 20 Units/L (29-103) L 06/23/18 16:27 Folate 2.5 ng/mL (3.0-16.0) L 06/27/18 11:25 Procalcitonin 107.11 ng/mL (<=0.07) H 06/17/18 16:40 TSH 7.234 mcIU/mL (0.340-5.600) H 06/27/18 11:25 Ur Specific Pearce < 1.005 (1.010-1.025) L 06/30/18 09:34 Urine Blood Moderate (Negative) H 06/30/18 09:34 Ur Leukocyte Esterase Moderate (Negative) H 06/30/18 09:34 Urine Microscopic RBC 3-5 per hpf (0-3) H 06/30/18 09:34 Urine Microscopic WBC 50-100 per hpf (0-3) H 06/30/18 09:34 Urine Bacteria Many per hpf (None-Few) H 06/30/18 09:34 Urine Osmolality 200 mOsm/kg (300-1090) L 06/30/18 09:33 Protein/Creatinin Ratio 1.68 mg/mg (0.00-0.20) H 06/30/18 09:34 Urine Total Protein 52 mg/dL (1-14) H 06/30/18 09:34 Vancomycin Trough 18 mcg/mL (5-10) H 06/19/18 08:20 Urine Opiates Screen Positive ng/mL (Gqywgj=496) H 06/18/18 10:37 U Benzodiazepines Scrn Positive ng/mL (Cvrjro=868) H 06/18/18 10:37 HSV I DETECTED (Not Detect) A 06/24/18 15:10 - Microbiology Findings Microbiology Findings: Microbiology, Last 48 Hours 07/01/18 09:03 Urine Culture - Preliminary Urine,Catheterized Gram Negative Eduardo - Clinical Findings Intake & Output: Intake & Output 07/02/18 07/03/18 07/03/18 23:59 07:59 15:59 Intake Total 3250 / 3250 600 / 600 Output Total 1850 / 1850 725 / 725 Balance 1400 / 1400 -125 / -125 Weight 109 kg Consult Discharge Plan - Plan Referrals: Sheryl Stahl, [facility] [employer] CONTROL SPECIALIST [Primary Care Provider] - - Attending Attestation I examined this patient and my medical decision-making was reviewed with the Resident Physician. I agree with the documented findings, disposition and treatment plan as described except to the extent set forth below. We independently had [id number] contact with the patient I spent 33min of Critical Care time with this patient. It involved decision making of high complexity to assess, manipulate, and support vital organ system failure and/or to prevent further life threatening deterioration of the patient' s condition. The time involved in the performance of separately reportable procedures was not counted toward critical care time. Patient seen and examined at bedside Labs, radiology, chart personally reviewed. Management was reviewed during multidisciplinary critical care rounds. [employer] PROF[employer] [place] HISTORY: Sedated for comfort on the event of sedation holiday today patient was able to follow simple commands but remains encephalopathic this is multifactorial including metabolic encephalopathy and likely infection Pulm: Reintubated last 24 hours with evidence of hypoxemia on ABG today plan to increase PEEP and FiO2 using low tidal volume ventilatory strategy as patient is at risk for ARDS repeat ABG later in the day Cards: The pressure and heart rate are stable continue to monitor GI: GI prophylaxis given Nutrition: Start enteral nutrition per dietary recommendations Renal: Persistent hypernatremia which is secondary to renal losses nephrology following free water has been started patient remains on D5W infusion. In general acute kidney injury is improving as noted by serum creatinine measurement today. UOP Monitored, Cont to Trend sCr and monitor Electrolytes. ID: Persistent leukocytosis with gram-negative rods in the urine will start empiric antimicrobial coverage for UTI this may have been a precipitating event for worsening encephalopathy yesterday. ID follow we will confirm antimicrobial selection Heme/Onc: DVT prophylaxis given. H&H shows slight drop overnight and will transfuse for hemoglobin less than 7 I suspect this is related to critical illness and blood draws as opposed to blood loss from hemorrhage as there is no overt evidence of this Endo: Glucose Monitored Integ/MSK: Skin Care per routine ICU Nursing Protocol to prevent ulcers. Lines: All lines examined without evidence of infection : Dispo: Remain in ICU CODE: Full. <Bonnie Cummins E - Last Filed: 07/03/18 10:51> Date of Encounter: 07/03/18 Time of Encounter: 07:43 Assessment and Plan (1) Septic shock Current Visit: Yes Status: Acute sepsis suspected secondary to karo fungemia. MAP this morning 61. On fluconazole for fungemia, will stop today. Acyclovir started 06/25/18 for possible herpes encephalitis will be stopped 07/02/18. No growth on repeat cultures from 06/19/18. New cultures were drawn on 06/24/18 showed no growth. Urine shows a gram negative eduardo on urine culture from 07/01/18. Will start rocephin 1000mg Q24. Possible pneumonia would also be covered by rocephin, repeat chest XR tomorrow, possible broadening of antibiotic covereage based on clinical findings and CXR Bowel sounds today are normal. Will stop Fluconazole, begin Rocephin (2) Acute respiratory failure with hypoxemia Current Visit: Yes Status: Acute Patient was extubated on 07/01/18 and put on Bipap, had to be reintubated yesterday due to increased respiratory work, respiratory distress, and worsening encephalopathy. Will continue to monitor respiratory status. (3) Oral lesion Current Visit: Yes Status: Acute Noted on tongue PCR positive for HSV1 Acyclovir stopped 07/02/18 (4) COPD (chronic obstructive pulmonary disease) Current Visit: Yes Status: Chronic Patient extubated and on bipap on 07/01/18, reintubated 07/02/18 due to increased work of respiration, respiratory distress, and worsening encephalopathy. Continue to monitor Qualifiers: COPD type: emphysema Emphysema type: unspecified Qualified Code(s): J43.9 - Emphysema, unspecified (5) Systolic heart failure Current Visit: Yes Status: Acute MAP today 61. Continue to monitor keep MAP above 60. Qualifiers: Heart failure chronicity: unspecified Qualified Code(s): I50.20 - Unspecified systolic (congestive) heart failure (6) LUCILA (acute kidney injury) Current Visit: Yes Status: Acute Nephrology following. Patient on intermittent dialysis. Hypernatreima with free water deficit possibly due to polyuric phase of renal recovery, will continue to monitor Urine output yesterday 325 ml/hour, today 81 mls/hr this morning Nephrology increased free water intake to 150 ml/hour for patient hypernatremia Continue to monitor (7) Hypocalcemia Current Visit: Yes Status: Acute Continue to monitor. Calcium today at 8.3. Replace if necessary (8) Hypernatremia Current Visit: Yes Status: Acute Nephrology on board Possibly due to polyuric phase of renal recovery D5 at 125 ml per hour, free water 150ml per hour Continue sodium checks and monitoring neurologic status (9) Hypokalemia Current Visit: Yes Status: Resolved K+ 3.1 today. 20 units given IVP earlier this morning, no change in K+ levels. HAS been given 40 units Potassium Chloride elixor. Continue to monitor and replace as necessary (10) Encephalopathy Current Visit: Yes Status: Acute Neuro on board, believed to be from toxic metabolic causes. Fluconazole stopped today, acyclovir stopped on 06/01/19 (11) Thrombocytopenia Current Visit: Yes Status: Resolved Platelets 142. Continue to monitor. 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 No heparin was in use in the lines which could have caused the excessive clotting on dialysis filter. Also, platelet count could have been decreased do to septic shock. 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 Diabetes mellitus complication status: with unspecified complications Qualified Code(s) : E11.8 - Type 2 diabetes mellitus with unspecified complications; Z79.4 - care home (current) use of insulin (14) UTI (urinary tract infection) Current Visit: Yes Status: Acute Urine culture from 07/01/18 grew gram negative eduardo Sensitivities show Rocephin sensitive Will start Rocephin 1g q24 Qualifiers: Urinary tract infection type: site unspecified Hematuria presence: without hematuria Qualified Code(s): N39.0 - Urinary tract infection, site not specified (15) DVT prophylaxis Current Visit: Yes Status: Acute ECPDs Heparin 5000 units sub q Subjective Principal diagnosis: septic shock Interval history: Mr. Mccarthy was seen at bedside this morning. He was reintubated yesterday. Creatinine decreased to 2.40, nephrology following and will be doing intermediate dialysis. WBC count decreased from yesterday. ABGs show pH 7.43, pCO2 50, pO2 54, O2 sat 88%. 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 Acyclovir stopped yesterday. Restarted heprin for DVT prophylaxis 06/30/18. Patient is easily awaken but does not follow commands this morning. Possible UTI with gram negative eduardo in urine. Objective PUL Vital signs: Last Vital Signs Temp 98.5 F 07/03/18 04:00 Pulse 69 07/03/18 07:00 Resp 18 07/03/18 07:37 BP 99/53 07/03/18 07:00 Pulse Ox 100 07/03/18 07:37 General appearance: other (intubated and sedated) Eyes: injected (left eye slightly injected) ENT: oropharynx dry Neck: no lymphadenopathy Auscultation: bilateral: diminished breath sounds (lower lobes), wheezes ( inspiratory and expiratory) Cardiovascular: regular rate and rhythm Gastrointestinal: normoactive bowel sounds, non-distended Extremities: no cyanosis, no clubbing, edema (1+ pitting at the feet) pupils equal and round Ventilator Settings Ventilator Settings: Ventilator Settings, Last 8 Hours Ventilator Tidal Volume 460 Setting Ventilator Tidal Volume 460 Setting Ventilator Tidal Volume 460 Setting Ventilator Tidal Volume 460 Setting Ventilator Tidal Volume 460 Setting Ventilator Tidal Volume 480 Setting Ventilator Tidal Volume 480 Setting Ventilator Tidal Volume 480 Setting Ventilator Respiratory Rate 16 Setting Ventilator Respiratory Rate 16 Setting Ventilator Respiratory Rate 16 Setting Ventilator Respiratory Rate 16 Setting Ventilator Respiratory Rate 16 Setting Ventilator Respiratory Rate 16 Setting Ventilator Respiratory Rate 16 Setting Ventilator Respiratory Rate 16 Setting Actual Respiratory Rate 17 Actual Respiratory Rate 17 Actual Respiratory Rate 17 Actual Respiratory Rate 16 Actual Respiratory Rate 20 Actual Respiratory Rate 24 Positive End Expiratory 5 Pressure Positive End Expiratory 5 Pressure Positive End Expiratory 5 Pressure Positive End Expiratory 5 Pressure Positive End Expiratory 5 Pressure Positive End Expiratory 5 Pressure Positive End Expiratory 5 Pressure Positive End Expiratory 5 Pressure Peak Inspiratory Airway 40 Pressure Peak Inspiratory Airway 22 Pressure Peak Inspiratory Airway 35 Pressure Peak Inspiratory Airway 37 Pressure Peak Inspiratory Airway 31 Pressure Peak Inspiratory Airway 32 Pressure Results - Laboratory Findings CBC and BMP: 07/03/18 04:00 07/03/18 08:50 ABG ABG pH 7.43 pH Units (7.32-7.45) 07/03/18 04:22 ABG pCO2 50 mmHg (35-45) H 07/03/18 04:22 ABG pO2 54 mmHg (85-104) L 07/03/18 04:22 ABG O2 Saturation 88 % (95-98) L 07/03/18 04:22 PT/INR, D-dimer PT 16.7 Seconds (9.4-12.1) H 06/22/18 03:45 D-Dimer 3465 ng/mLFEU (0-500) H 06/18/18 08:08 Abnormal lab findings: Abnormal lab results WBC 12.7 K/mcL (4.3-11.1) H 07/03/18 04:00 RBC 2.22 M/mcL (4.19-5.50) L 07/03/18 04:00 Hgb 6.9 g/dL (12.9-16.9) L 07/03/18 04:00 Hct 22.9 % (37.5-50.1) L 07/03/18 04:00 MCV 103.2 fL (83.0-100.0) H 07/03/18 04:00 MCHC 30.1 g/dL (31.6-35.5) L 07/03/18 04:00 RDW 16.5 % (11.5-14.5) H 07/03/18 04:00 Band Neutrophils % 6.0 % (0-4) H 06/27/18 03:00 Metamyelocytes % 2.0 % (0) H 06/27/18 03:00 Myelocytes % 6.0 % (0) H 06/27/18 03:00 Neutrophils # 9.5 K/mcL (1.6-8.9) H 07/03/18 04:00 Nucleated RBCs/100 WBC 0.1 /100 WBC (0) H 06/28/18 03:30 Reactive Lymphocytes Present (Not Present) A 07/01/18 03:00 Toxic Granulation Present (Not Present) A 06/18/18 03:05 Toxic Vacuolation Present (Not Present) A 06/22/18 03:45 Large Platelets Present (Not Present) A 06/23/18 03:15 Polychromasia 1+ (Not Present) A 06/27/18 03:00 Basophilic Stippling 1+ (Not Present) A 06/26/18 04:00 Anisocytosis 1+ (Not Present) A 06/28/18 03:30 Macrocytosis Present (Not Present) A 06/26/18 04:00 PT 16.7 Seconds (9.4-12.1) H 06/22/18 03:45 APTT 62.8 Seconds (26.0-36.0) H 06/23/18 08:00 Fibrinogen 578 mg/dL (169-393) H 06/18/18 08:08 D-Dimer 3465 ng/mLFEU (0-500) H 06/18/18 08:08 ABG pCO2 50 mmHg (35-45) H 07/03/18 04:22 ABG pO2 54 mmHg (85-104) L 07/03/18 04:22 ABG HCO3 33 mEq/L (21-27) H 07/03/18 04:22 ABG Total CO2 34 mEq/L (20-26) H 07/03/18 04:22 ABG O2 Saturation 88 % (95-98) L 07/03/18 04:22 ABG Base Excess 8 mEq/L (-2 to 3) H 07/03/18 04:22 Sodium 157 mEq/L (136-145) H 07/03/18 04:00 Potassium 3.1 mEq/L (3.5-5.1) L 07/03/18 04:00 Chloride 118 mEq/L (98-107) H 07/03/18 04:00 Carbon Dioxide 31 mEq/L (23-29) H 07/03/18 04:00 BUN 29 mg/dL (6-20) H 07/03/18 04:00 Creatinine 2.40 mg/dL (0.70-1.30) H 07/03/18 04:00 Est GFR ( Amer) 34 (> 60) L 07/03/18 04:00 Est GFR (Non-Af Amer) 28 (> 60) L 07/03/18 04:00 Glucose 161 mg/dL (70-105) H 07/03/18 04:00 POC Glucose 156 mg/dL (70-99) H 07/03/18 04:05 Serum Osmolality 327 mOsm/kg (280-300) H 07/01/18 09:48 Calculated Osmolality 333 (280-300) H 07/03/18 04:00 Calcium 8.4 mg/dL (8.6-10.3) L 07/03/18 04:00 Venous Ioniz Calcium 1.13 mmol/L (1.15-1.35) L 07/01/18 03:39 Phosphorus 5.6 mg/dL (2.7-4.5) H 07/01/18 03:00 Iron < 10 mcg/dL (65-175) L 07/01/18 03:00 Transferrin 146 mg/dL (203-362) L 07/01/18 03:00 Ferritin 647 ng/mL (20-250) H 07/01/18 03:00 Direct Bilirubin 0.4 mg/dL (0.0-0.2) H 06/23/18 03:15 AST 55 Units/L (13-39) H 07/01/18 03:00 Troponin I 0.92 ng/mL (< 0.04) H* 06/17/18 22:33 Serum Total Protein 5.9 g/dL (6.4-8.9) L 07/01/18 03:00 Albumin 2.5 g/dL (3.5-5.7) L 07/01/18 03:00 Albumin/Globulin Ratio 0.7 (1.1-2.2) L 07/01/18 03:00 Amylase 20 Units/L (29-103) L 06/23/18 16:27 Folate 2.5 ng/mL (3.0-16.0) L 06/27/18 11:25 Procalcitonin 107.11 ng/mL (<=0.07) H 06/17/18 16:40 TSH 7.234 mcIU/mL (0.340-5.600) H 06/27/18 11:25 Ur Specific Pearce < 1.005 (1.010-1.025) L 06/30/18 09:34 Urine Blood Moderate (Negative) H 06/30/18 09:34 Ur Leukocyte Esterase Moderate (Negative) H 06/30/18 09:34 Urine Microscopic RBC 3-5 per hpf (0-3) H 06/30/18 09:34 Urine Microscopic WBC 50-100 per hpf (0-3) H 06/30/18 09:34 Urine Bacteria Many per hpf (None-Few) H 06/30/18 09:34 Urine Osmolality 200 mOsm/kg (300-1090) L 06/30/18 09:33 Protein/Creatinin Ratio 1.68 mg/mg (0.00-0.20) H 06/30/18 09:34 Urine Total Protein 52 mg/dL (1-14) H 06/30/18 09:34 Vancomycin Trough 18 mcg/mL (5-10) H 06/19/18 08:20 Urine Opiates Screen Positive ng/mL (Fduuxl=718) H 06/18/18 10:37 U Benzodiazepines Scrn Positive ng/mL (Dpvaor=628) H 06/18/18 10:37 HSV I DETECTED (Not Detect) A 06/24/18 15:10 - Microbiology Findings Microbiology Findings: Microbiology, Last 48 Hours 07/01/18 09:03 Urine Culture - Preliminary Urine,Catheterized Gram Negative Eduardo - Clinical Findings Intake & Output: Intake & Output 07/02/18 07/02/18 07/03/18 15:59 23:59 07:59 Intake Total 1700 / 1700 3250 / 3250 600 / 600 Output Total 2650 / 2650 1850 / 1850 725 / 725 Balance -950 / -950 1400 / 1400 -125 / -125 Weight 109 kg - VTE Documentation of Mechanical Device: Intermittent pneumatic compression device
[2018-07-03] MEDS ORDERED: cefTRIAXone 1,000 MG in 0.9 % Sodium Chloride Mini Bag 100 ML IVPB SCH (08:00)
[2018-07-03] MEDS: Nystatin SUSP 5 ML UD.LIQ PO SCH ×4 (08:12→20:06)
[2018-07-03] MEDS: Pantoprazole 40 MG VIAL IVP SCH (08:12)
[2018-07-03] MEDS: Chlorhexidine Rinse 15 ML MOUTHWASH MM SCH ×2 (08:12→20:06)
[2018-07-03 09:33] LABS: Calcium 8.3 mg/dL (8.6-10.3); Magnesium 1.8 mg/dL (1.6-2.6); Potassium 3.1 mEq/L (3.5-5.1)
[2018-07-03] MEDS ORDERED: 0.9 % Sodium Chloride 250 ML ONE (09:33)
[2018-07-03] MEDS: Norepinephrine 4 MG in D5% in Water 250 ML IVC SCH (10:12)
[2018-07-03] MEDS: D5% in Water 1,000 ML IVC SCH (10:18)
--- NOTE | 2018-07-03 14:53 | Nephrology Progress Note ---
Date of Encounter: 07/03/18 Time of Encounter: 09:30 - Assessment and Plan (1) LUCILA (acute kidney injury) Current Visit: Yes Status: Acute Polyuric LUCILA, last hemodialysis on Saturday In the past 24 hours the patient has continued to put out over 5 L of urine His labs demonstrate significant free water deficit of 8 L with hypernatremia of 156, and creatinine 2.53 despite 125mLs/hr D5W Suspect that this is most likely due to polyuric phase of renal recovery, however consider diabetes insipidus as a differential as well UA did demonstrate 50-100 WBCs and many bacteria. Urine Protein:Creatinine ratio 1.7 Patient had 7750mL urine output yesterday Plan -Hold on hemodialysis today, consider tomorrow if necessary. There is no biochemical need for HD today, and the patient is putting out substantial urine. In fact, he appears volume depleted to some degree. We will be on standby if pulmonary edema worsens and UF seems to be an appropriate solution -Continue D5 water at 50mL/hr. As patient has been Reintubated, recommend OG tube fluids at 300mL q2h -Consider DDAVP if free water and insufficient (2) Hypernatremia Current Visit: Yes Status: Acute Likely secondary to free water deficit in the setting of polyuric phase of renal recovery Diabetes insipidus does remain on the differential as well Ideally the patient would replace half of deficit with PO fluids today (~4L Free Water), however he has been unable to take PO fluids thus far He now will have OG tube as he has been intubated again due to declining respiratory status. Serum Osm 327, Urine Osm 200 Recommend D5W @50mL/hr, 300mL free water per OG q2h (3) Acute respiratory failure with hypoxemia Current Visit: Yes Status: Acute Patient required intubation due to worsening respiratory status Management per critical care team (4) Anemia Current Visit: Yes Status: Acute Severe iron deficiency anemia Transfusion parameters per primary team Qualifiers: Anemia type: iron deficiency Iron deficiency anemia type: unspecified iron deficiency Qualified Code(s): D50.9 - Iron deficiency anemia, unspecified Subjective Principal diagnosis: septic shock Interval history: The patient unerwent re-intubation yesterday due to respiratory failure. He had substantial polyuria still. Objective - Vital Signs Vital signs: Vital Signs Temp Pulse Resp BP Pulse Ox 07/03/18 14:00 67 16 103/58 98 09/06/18 13:14 98.4 F 64 16 94/54 97 07/03/18 13:00 64 16 94/54 97 07/03/18 12:59 68 16 97/61 97 07/03/18 12:48 98.4 F 65 16 96/51 07/03/18 12:00 65 16 97/52 97 07/03/18 11:00 98.4 F 70 16 98/53 97 07/03/18 10:54 98.4 F 70 16 97/51 97 07/03/18 10:39 98.4 F 70 17 118/76 96 07/03/18 10:05 16 96 07/03/18 10:00 69 16 93/53 96 07/03/18 09:00 68 17 88/48 95 07/03/18 08:00 98.4 F 73 16 108/57 94 07/03/18 07:54 70 07/03/18 07:37 18 100 07/03/18 07:00 69 17 99/53 93 07/03/18 06:00 73 20 111/65 93 07/03/18 05:03 17 99/57 90 07/03/18 05:00 69 16 97/57 91 07/03/18 04:00 98.5 F 76 19 108/61 89 07/03/18 03:45 16 95/57 92 07/03/18 03:00 75 16 89/53 92 07/03/18 02:00 77 16 95/51 91 07/03/18 01:03 20 95/57 91 07/03/18 01:00 108 24 95/57 91 07/03/18 00:17 106 20 92/49 90 07/03/18 00:07 99.6 F 07/02/18 23:33 87 07/02/18 23:16 18 109/60 92 07/02/18 23:00 80 16 109/60 93 07/02/18 22:00 76 16 106/61 93 07/02/18 21:48 16 119/68 94 07/02/18 21:00 101 22 121/96 94 07/02/18 20:51 99.8 F H 07/02/18 20:00 114 22 119/74 95 07/02/18 19:37 22 148/127 93 07/02/18 19:00 123 23 109/63 99 07/02/18 18:09 16 93 07/02/18 18:00 74 17 100/61 92 07/02/18 17:00 78 16 104/63 93 07/02/18 16:06 16 94 07/02/18 16:00 98.8 F 70 16 112/68 93 07/02/18 15:00 69 20 110/66 93 Intake and Output 07/02/18 07/03/18 07/03/18 23:59 07:59 15:59 Intake Total 3250 / 3250 600 / 600 2263 / 2263 Output Total 1850 / 1850 725 / 725 325 / 325 Balance 1400 / 1400 -125 / -125 1937 / 1937 Intake: IV Fluids 2850 / 2850 600 / 600 195 / 1958 Dextrose 5% 1,000 ML @ 75 mls/ 1000 / 1000 1266 / 1266 hr IVC .[id number] NADIA Rx#: [id number] PRECEDEX Premix 400 mcg In 100 50 / 50 ml @ 0.2 MCG/KG/HR 6.65 mls/hr IVC .Q15H3M NADIA Rx#:[id number] FentaNYL (PF) 1,000 MCG In 0.9 200 / 200 100 / 100 % Sodium Chloride 80 ML @ 50 MCG/HR 5 mls/hr IVC CONT NADIA Rx #:[id number] Diprivan 1,000 mg In 100 ml @ 5 200 / 200 300 / 300 223 / 223 MCG/KG/MIN 3.345 mls/hr IVC . Q24H NADIA Rx#:[id number] Lactated Ringers 500 ML @ 1000 500 / 500 mls/hr IVC .Q30M ONE Rx#: [id number] Diflucan Premix 200 MG/100 ML 100 / 100 200 mg In 100 ml @ 100 mls/hr IVPB Q24H NADIA Rx#:[id number] Potassium Chloride 20 mEq/100 100 / 100 mL 20 meq In 100 ml @ 100 mls/ hr IVPB Q1H PRN Rx#:[id number] Rocephin 1,000 MG In 0.9 % 100 / 100 Sodium Chloride (Mini-Bag +) 100 ML @ 200 mls/hr IVPB Q24H NADIA Rx#:[id number] Oral 0 / 0 Tube Feeding 400 / 400 Blood Product 304 / 304 Rbcs Leuko Poor As-1 Unit 304 / 304 [id number] Rbcs Leuko Poor As-1 Unit 0 / 0 [id number] Output: Catheter 1700 / 1700 725 / 725 325 / 325 Gastric Drainage 150 / 150 Other: Weight 109 kg Blood Glucose* 136 156 149 Patient Weight 07/03/18 23:59 Weight 109 kg - General Appearance Exam: Gen: Vitals noted. No acute distress. Sedated on Mechanical ventilation. HEENT: Normocephalic, atraumatic. Dry mucous membranes. Neck: Supple. No adenopathy. Right internal jugular temporary hemodialysis catheter in place with no erythema surrounding Cardiac: RRR, no murmur, +S1/S2 Pulmonary: Clear to auscultation bilaterally, diminished in the right lung base Abdomen: soft, nontender, no guarding Extremities: 2+ bilateral lower extremity edema, nontender calf, no cyanosis or clubbing Neuro: Patient has been extubated and is largely off sedation. Follows commands. - Lab 07/03/18 04:00 07/03/18 08:50 Most recent lab results ABG pH 7.43 pH Units (7.32-7.45) 07/03/18 04:22 ABG pCO2 50 mmHg (35-45) H 07/03/18 04:22 ABG pO2 54 mmHg (85-104) L 07/03/18 04:22 ABG HCO3 33 mEq/L (21-27) H 07/03/18 04:22 ABG O2 Saturation 88 % (95-98) L 07/03/18 04:22 Calcium 8.3 mg/dL (8.6-10.3) L 07/03/18 08:50 Phosphorus 5.6 mg/dL (2.7-4.5) H 07/01/18 03:00 Magnesium 1.8 mg/dL (1.6-2.6) 07/03/18 08:50 Urine Creatinine 31 mg/dL 06/30/18 09:34 Urine Sodium 40.6 mEq/L 06/30/18 09:34 Urine Total Protein 52 mg/dL (1-14) H 06/30/18 09:34 - VTE Documentation of Mechanical Device: Intermittent pneumatic compression device Consult Discharge Plan - Plan Referrals: Sheryl Stahl, MAGALI [Primary Care Provider] -
[2018-07-03 16:27] LABS: Basophils # 0.1 K/mcL (0.0-0.2); Basophils % 0.9 %; Eosinophils # 0.4 K/mcL (0.0-0.6); Eosinophils % 3.4 %; Hematocrit 27.9 % (37.5-50.1); Immature Granulocytes % 0.4 % (0-4); Lymphocytes # 2.1 K/mcL (0.6-4.6); Lymphocytes % 17.6 %; Mean Corpuscular HGB Conc 31.2 g/dL (31.6-35.5); Mean Corpuscular Hemoglobin 31.4 pg (28.0-33.3); Mean Corpuscular Volume 100.7 fL (83.0-100.0); Monocytes # 0.6 K/mcL (0.0-1.3); Monocytes % 5.4 %; Neutrophils # 8.6 K/mcL (1.6-8.9); Platelet Count 146 K/mcL (140-400); Red Blood Count 2.77 M/mcL (4.19-5.50); Red Cell Distribution Width 17.2 % (11.5-14.5); Segmented Neutrophils % 72.3 %
[2018-07-03 16:37] LABS: Hemoglobin 8.7 g/dL (12.9-16.9)
[2018-07-03 16:51] LABS: Calcium 8.3 mg/dL (8.6-10.3); Potassium 3.1 mEq/L (3.5-5.1)
[2018-07-03] MEDS: FentaNYL (PF) 2,500 MCG in EMPTY BAG 1 EACH IVC SCH (18:16)
[2018-07-04] MEDS: Artificial Tears SOLN 15 ML BOTTLE BOTH EYES SCH ×7 (00:04→23:04)
[2018-07-04] MEDS: Insulin LISPRO 300 UNITS/3 ML VIAL SQ SCH ×7 (00:13→23:05)
[2018-07-04 04:18] LABS: Basophils # 0.1 K/mcL (0.0-0.2); Eosinophils # 0.5 K/mcL (0.0-0.6); Eosinophils % 3.7 %; Hematocrit 26.7 % (37.5-50.1); Hemoglobin 8.2 g/dL (12.9-16.9); Immature Granulocytes % 0.5 % (0-4); Lymphocytes # 1.9 K/mcL (0.6-4.6); Mean Corpuscular HGB Conc 30.7 g/dL (31.6-35.5); Mean Corpuscular Hemoglobin 30.4 pg (28.0-33.3); Mean Corpuscular Volume 98.9 fL (83.0-100.0); Monocytes # 0.7 K/mcL (0.0-1.3); Monocytes % 5.6 %; Platelet Count 153 K/mcL (140-400); Red Cell Distribution Width 17.6 % (11.5-14.5); Segmented Neutrophils % 75.2 %
[2018-07-04 04:36] LABS: Albumin 2.3 g/dL (3.5-5.7); Albumin/Globulin Ratio 0.6 (1.1-2.2); Bilirubin,Total 0.7 mg/dL (0.3-1.0); Calcium 8.3 mg/dL (8.6-10.3); Globulin 3.6 g/dL (2.4-3.5); Magnesium 1.7 mg/dL (1.6-2.6); Phosphorous 5.4 mg/dL (2.7-4.5); Potassium 3.2 mEq/L (3.5-5.1); Total Protein 5.9 g/dL (6.4-8.9)
[2018-07-04 04:44] LABS: ABG Base Excess 4 mEq/L (-2 to 3); ABG HCO3 30 mEq/L (21-27); ABG Oxygen Saturation 94 % (95-98); ABG PCO2 55 mmHg (35-45); ABG PH 7.35 pH Units (7.32-7.45); ABG PO2 75 mmHg (85-104); ABG TCO2 32 mEq/L (20-26); Blood Gas Modality VC; Blood Gas PEEP 10 cm H2O; Blood Gas Respiration Rate 16; Blood Gas VT 460 cc
[2018-07-04] MEDS: D5% in Water 1,000 ML IVC SCH ×2 (05:08→19:28)
[2018-07-04] MEDS: *HR* Heparin 5,000 UNIT/ML VIAL SQ SCH ×2 (05:11→17:56)
[2018-07-04] MEDS: FentaNYL (PF) 2,500 MCG in EMPTY BAG 1 EACH IVC SCH ×2 (06:33→17:27)
--- NOTE | 2018-07-04 07:40 | Pulmonology Progress Note ---
<JonasMaximo W - Last Filed: 07/04/18 08:45> Date of Encounter: 07/04/18 Objective PUL Vital signs: Last Vital Signs Temp 99.8 F H 07/04/18 07:30 Pulse 117 07/04/18 06:00 Resp 19 07/04/18 08:00 BP 126/62 07/04/18 06:00 Pulse Ox 96 07/04/18 08:00 Ventilator Settings Ventilator Settings: Ventilator Settings, Last 8 Hours Ventilator Tidal Volume 460 Setting Ventilator Tidal Volume 460 Setting Ventilator Tidal Volume 460 Setting Ventilator Tidal Volume 460 Setting Ventilator Tidal Volume 460 Setting Ventilator Respiratory Rate 16 Setting Ventilator Respiratory Rate 16 Setting Ventilator Respiratory Rate 16 Setting Ventilator Respiratory Rate 16 Setting Ventilator Respiratory Rate 16 Setting Ventilator Respiratory Rate 16 Setting Ventilator Respiratory Rate 16 Setting Ventilator Respiratory Rate 16 Setting Ventilator Respiratory Rate 16 Setting Ventilator Respiratory Rate 16 Setting Ventilator Respiratory Rate 16 Setting Actual Respiratory Rate 19 Actual Respiratory Rate 20 Actual Respiratory Rate 17 Actual Respiratory Rate 16 Actual Respiratory Rate 16 Actual Respiratory Rate 16 Actual Respiratory Rate 16 Actual Respiratory Rate 16 Actual Respiratory Rate 16 Actual Respiratory Rate 16 Positive End Expiratory 10 Pressure Positive End Expiratory 10 Pressure Positive End Expiratory 10 Pressure Positive End Expiratory 10 Pressure Positive End Expiratory 10 Pressure Positive End Expiratory 10 Pressure Positive End Expiratory 10 Pressure Positive End Expiratory 10 Pressure Positive End Expiratory 10 Pressure Positive End Expiratory 10 Pressure Positive End Expiratory 10 Pressure Peak Inspiratory Airway 28 Pressure Peak Inspiratory Airway 20 Pressure Peak Inspiratory Airway 27 Pressure Peak Inspiratory Airway 29 Pressure Peak Inspiratory Airway 30 Pressure Peak Inspiratory Airway 30 Pressure Peak Inspiratory Airway 29 Pressure Peak Inspiratory Airway 29 Pressure Peak Inspiratory Airway 27 Pressure Peak Inspiratory Airway 29 Pressure Results - Laboratory Findings CBC and BMP: 07/04/18 04:00 07/04/18 04:00 ABG ABG pH 7.35 pH Units (7.32-7.45) 07/04/18 04:39 ABG pCO2 55 mmHg (35-45) H 07/04/18 04:39 ABG pO2 75 mmHg (85-104) L 07/04/18 04:39 ABG O2 Saturation 94 % (95-98) L 07/04/18 04:39 PT/INR, D-dimer PT 16.7 Seconds (9.4-12.1) H 06/22/18 03:45 D-Dimer 3465 ng/mLFEU (0-500) H 06/18/18 08:08 Abnormal lab findings: Abnormal lab results WBC 13.3 K/mcL (4.3-11.1) H 07/04/18 04:00 RBC 2.70 M/mcL (4.19-5.50) L 07/04/18 04:00 Hgb 8.2 g/dL (12.9-16.9) L 07/04/18 04:00 Hct 26.7 % (37.5-50.1) L 07/04/18 04:00 MCHC 30.7 g/dL (31.6-35.5) L 07/04/18 04:00 RDW 17.6 % (11.5-14.5) H 07/04/18 04:00 Band Neutrophils % 6.0 % (0-4) H 06/27/18 03:00 Metamyelocytes % 2.0 % (0) H 06/27/18 03:00 Myelocytes % 6.0 % (0) H 06/27/18 03:00 Neutrophils # 10.0 K/mcL (1.6-8.9) H 07/04/18 04:00 Nucleated RBCs/100 WBC 0.1 /100 WBC (0) H 06/28/18 03:30 Reactive Lymphocytes Present (Not Present) A 07/01/18 03:00 Toxic Granulation Present (Not Present) A 06/18/18 03:05 Toxic Vacuolation Present (Not Present) A 06/22/18 03:45 Large Platelets Present (Not Present) A 06/23/18 03:15 Polychromasia 1+ (Not Present) A 06/27/18 03:00 Basophilic Stippling 1+ (Not Present) A 06/26/18 04:00 Anisocytosis 1+ (Not Present) A 06/28/18 03:30 Macrocytosis Present (Not Present) A 06/26/18 04:00 PT 16.7 Seconds (9.4-12.1) H 06/22/18 03:45 APTT 62.8 Seconds (26.0-36.0) H 06/23/18 08:00 Fibrinogen 578 mg/dL (169-393) H 06/18/18 08:08 D-Dimer 3465 ng/mLFEU (0-500) H 06/18/18 08:08 ABG pCO2 55 mmHg (35-45) H 07/04/18 04:39 ABG pO2 75 mmHg (85-104) L 07/04/18 04:39 ABG HCO3 30 mEq/L (21-27) H 07/04/18 04:39 ABG Total CO2 32 mEq/L (20-26) H 07/04/18 04:39 ABG O2 Saturation 94 % (95-98) L 07/04/18 04:39 ABG Base Excess 4 mEq/L (-2 to 3) H 07/04/18 04:39 Sodium 148 mEq/L (136-145) H 07/04/18 04:00 Potassium 3.2 mEq/L (3.5-5.1) L 07/04/18 04:00 Chloride 112 mEq/L (98-107) H 07/04/18 04:00 BUN 30 mg/dL (6-20) H 07/04/18 04:00 Creatinine 2.83 mg/dL (0.70-1.30) H 07/04/18 04:00 Est GFR ( Amer) 29 (> 60) L 07/04/18 04:00 Est GFR (Non-Af Amer) 24 (> 60) L 07/04/18 04:00 Glucose 127 mg/dL (70-105) H 07/04/18 04:00 POC Glucose 165 mg/dL (70-99) H 07/04/18 07:44 Serum Osmolality 327 mOsm/kg (280-300) H 07/01/18 09:48 Calculated Osmolality 314 (280-300) H 07/04/18 04:00 Calcium 8.3 mg/dL (8.6-10.3) L 07/04/18 04:00 Venous Ioniz Calcium 1.13 mmol/L (1.15-1.35) L 07/01/18 03:39 Phosphorus 5.4 mg/dL (2.7-4.5) H 07/04/18 04:00 Iron < 10 mcg/dL (65-175) L 07/01/18 03:00 Transferrin 146 mg/dL (203-362) L 07/01/18 03:00 Ferritin 647 ng/mL (20-250) H 07/01/18 03:00 Direct Bilirubin 0.4 mg/dL (0.0-0.2) H 06/23/18 03:15 Troponin I 0.92 ng/mL (< 0.04) H* 06/17/18 22:33 Serum Total Protein 5.9 g/dL (6.4-8.9) L 07/04/18 04:00 Albumin 2.3 g/dL (3.5-5.7) L 07/04/18 04:00 Globulin 3.6 g/dL (2.4-3.5) H 07/04/18 04:00 Albumin/Globulin Ratio 0.6 (1.1-2.2) L 07/04/18 04:00 Amylase 20 Units/L (29-103) L 06/23/18 16:27 Folate 2.5 ng/mL (3.0-16.0) L 06/27/18 11:25 Procalcitonin 107.11 ng/mL (<=0.07) H 06/17/18 16:40 TSH 7.234 mcIU/mL (0.340-5.600) H 06/27/18 11:25 Ur Specific [place] < 1.005 (1.010-1.025) L 06/30/18 09:34 Urine Blood Moderate (Negative) H 06/30/18 09:34 Ur Leukocyte Esterase Moderate (Negative) H 06/30/18 09:34 Urine Microscopic RBC 3-5 per hpf (0-3) H 06/30/18 09:34 Urine Microscopic WBC 50-100 per hpf (0-3) H 06/30/18 09:34 Urine Bacteria Many per hpf (None-Few) H 06/30/18 09:34 Urine Osmolality 200 mOsm/kg (300-1090) L 06/30/18 09:33 Protein/Creatinin Ratio 1.68 mg/mg (0.00-0.20) H 06/30/18 09:34 Urine Total Protein 52 mg/dL (1-14) H 06/30/18 09:34 Vancomycin Trough 18 mcg/mL (5-10) H 06/19/18 08:20 Urine Opiates Screen Positive ng/mL (Wmmsqs=437) H 06/18/18 10:37 U Benzodiazepines Scrn Positive ng/mL (Jpvmgm=774) H 06/18/18 10:37 HSV I DETECTED (Not Detect) A 06/24/18 15:10 - Microbiology Findings Microbiology Findings: Microbiology, Last 48 Hours 07/01/18 09:03 Urine Culture - Final Urine,Catheterized Escherichia coli - Clinical Findings Intake & Output: Intake & Output 07/03/18 07/04/18 07/04/18 23:59 07:59 15:59 Intake Total 1352 / 1352 2028 Output Total 700 / 700 575 / 575 Balance 652 / 652 1454 / 1454 Consult Discharge Plan - Plan Referrals: Sheryl Stahl, DIELECTRIC PRESS OPERATOR [Primary Care Provider] - - Attending Attestation I examined this patient and my medical decision-making was reviewed with the Resident Physician. I agree with the documented findings, disposition and treatment plan as described except to the extent set forth below. We independently had [id number] contact with the patient I spent 33min of Critical Care time with this patient. It involved decision making of high complexity to assess, manipulate, and support vital organ system failure and/or to prevent further life threatening deterioration of the patient' s condition. The time involved in the performance of separately reportable procedures was not counted toward critical care time. Patient seen and examined at bedside Labs, radiology, chart personally reviewed. Management was reviewed during multidisciplinary critical care rounds. PRESS ASSISTANT AND FEEDER: Spontaneous awake trial showed the patient remains agitated but able to follow simple commands we will titrate sedation for goal [place] 3 Pulm: Acute Hypoxic hypercapnic respiratory failure; acceptable gas exchange today. Ventilator stable continue low tidal volume high PEEP strategy for lung recruitment. No clear pattern c/w ARDS. I do suspect however the development of the hospital associated pneumonia Cards: More tachycardic today which is likely related to sepsis we will recheck lactate blood pressure stable GI: GI prophylaxis given Nutrition: Continue enteral nutrition per dietary recommendations Renal: Hypernatremia resolving with free water zoroastrianism. Serum creatinine slightly elevated from previous day urine output remains acceptable. Nephrology following UOP Monitored, Cont to Trend sCr and monitor Electrolytes. ID: Several suspected infections one is clear evidence of Escherichia coli urinary tract infection for which antimicrobials were started 24 hours ago. In addition patient has had more sputum production from the endotracheal tube and low-grade fever along with worsening chest x-ray this may all be consistent with a pattern of hospital associated pneumonia we will send sputum culture for evaluation of this. And the patient will be started on broad-spectrum antimicrobials for this reason. 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 Given complexity of his antibiotics recommend reconsultation with the infectious disease for further recommendations Heme/Onc: DVT prophylaxis given H&H stable status post transfusion yesterday Endo: Glucose Monitored Integ/MSK: Skin Care per routine ICU Nursing Protocol to prevent ulcers. Lines: All lines examined without evidence of infection : Dispo: Remain in ICU for critical illness CODE: Full. <Bonnie Cummins E - Last Filed: 07/04/18 09:56> Date of Encounter: 07/04/18 Time of Encounter: 07:29 Assessment and Plan (1) Septic shock Current Visit: Yes Status: Acute sepsis suspected secondary to karo fungemia. MAP this morning 83. On fluconazole for fungemia stopped 07/03/18. Acyclovir restarted today to to new lesion on right upper lip/nasolabial fold area and continued encephalopathy. Urine shows a gram negative brook on urine culture from 07/01/18. Rocephin was started yesterday. Pneumonia possible with increased temperature, increased WBC count, increased wheezing on exam and decreased lower lobe breath sounds bilaterally, along with possible worsening of CXR as compared to yesterday. Vancomycin and Zosyn started today to broaden antibiotic coverage for UTI and possible Pneumonia. (2) Acute respiratory failure with hypoxemia Current Visit: Yes Status: Acute Patient was extubated on 07/01/18 and put on Bipap, had to be reintubated 07/02/18 due to increased respiratory work, respiratory distress, and worsening encephalopathy. Will continue to monitor respiratory status. (3) Pneumonia Current Visit: Yes Status: Suspected Pneumonia suspected to do Temperature increase, heart rate increase, worsening breath sounds on exam, and possibly worsened CXR as compared to yesterday. Patient was on Rocephin for UTI, this was broadened today to Vancomycin and Zosyn Sputum culture and blood cultures ordered today. Qualifiers: Pneumonia type: due to unspecified organism Laterality: bilateral Lung location: lower lobe of lung Qualified Code(s): J18.1 - Lobar pneumonia, unspecified organism (4) Oral lesion Current Visit: Yes Status: Acute Noted on tongue PCR positive for HSV1 Acyclovir stopped 07/02/18 new lesion noted on exam 07/04/18 above right lip in naso/labial fold area Acyclovir restarted 07/04/18 (5) COPD (chronic obstructive pulmonary disease) Current Visit: Yes Status: Chronic Patient extubated and on bipap on 07/01/18, reintubated 07/02/18 due to increased work of respiration, respiratory distress, and worsening encephalopathy. Continue to monitor Qualifiers: COPD type: emphysema Emphysema type: unspecified Qualified Code(s): J43.9 - Emphysema, unspecified (6) Systolic heart failure Current Visit: Yes Status: Acute MAP today 83. Continue to monitor keep MAP above 60. Qualifiers: Heart failure chronicity: unspecified Qualified Code(s): I50.20 - Unspecified systolic (congestive) heart failure (7) LUCILA (acute kidney injury) Current Visit: Yes Status: Acute Nephrology following. Patient on intermittent dialysis. Hypernatreima with free water deficit possibly due to polyuric phase of renal recovery, will continue to monitor Urine output yesterday decreased to 78 mls/hr Nephrology decreasing free water to 400ml Q4 today Continue to monitor (8) Hypocalcemia Current Visit: Yes Status: Acute Continue to monitor. Calcium today at 8.3. Replace if necessary (9) Hypernatremia Current Visit: Yes Status: Acute Nephrology on board Possibly due to polyuric phase of renal recovery D5 at 125 ml per hour, free water 150ml per hour Continue sodium checks and monitoring neurologic status (10) Hypokalemia Current Visit: Yes Status: Resolved K+ 3.2 today. HAS been given 40 units Potassium Chloride elixor. Continue to monitor and replace as necessary (11) Encephalopathy Current Visit: Yes Status: Acute Neuro on board, believed to be from toxic metabolic causes. Fluconazole stopped 07/03/18, acyclovir stopped on 06/01/19 Acyclovir restarted today after exam showed new lesion above right upper lip in nasolabial fold area. (12) Thrombocytopenia Current Visit: Yes Status: Resolved Platelets 153. Continue to monitor. 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 No heparin was in use in the lines which could have caused the excessive clotting on dialysis filter. Also, platelet count could have been decreased do to septic shock. Heparin was held over the weekend, restarted 06/30/18 due to platelets staying steady, today platelets 153 (14) Type 2 diabetes mellitus Current Visit: Yes Status: Chronic Switched to subcutaneous insulin medium sliding scale q4 Qualifiers: Diabetes mellitus exterminator insulin use: with exterminator use Diabetes mellitus complication status: with unspecified complications Qualified Code(s) : E11.8 - Type 2 diabetes mellitus with unspecified complications; Z79.4 - skilled nursing (current) use of insulin (15) UTI (urinary tract infection) Current Visit: Yes Status: Acute Urine culture from 07/01/18 grew gram negative brook Sensitivities show Rocephin sensitive Rocephin started yesterday, antibiotic coverage broadened today to Vancomycin and Zosyn Qualifiers: Urinary tract infection type: site unspecified Hematuria presence: without hematuria Qualified Code(s): N39.0 - Urinary tract infection, site not specified (16) DVT prophylaxis Current Visit: Yes Status: Acute ECPDs Heparin 5000 units sub q Subjective Principal diagnosis: septic shock Interval history: Mr. Mccarthy was seen at bedside this morning. He was reintubated 07/01/18. Creatinine decreased to 2.40, nephrology following and will be doing intermediate dialysis. WBC count decreased from yesterday. ABGs show pH 7.35, pCO2 55, pO2 75, O2 sat 94%. O Restarted heprin for DVT prophylaxis 06/30/18. Was on Ceftriaxone yesterday for UTI with e.coli cultures, broadened coverage today to Vancomycin and Zosyn for pneumonia coverage. Acyclovir restarted today due to new lesion noted on the right upper lip/nasolabial fold area. Patient is easily awaken but does not follow commands this morning. Objective PUL Vital signs: Last Vital Signs Temp 100.0 F H 07/04/18 04:34 Pulse 117 07/04/18 06:00 Resp 20 07/04/18 06:00 BP 126/62 07/04/18 06:00 Pulse Ox 97 07/04/18 06:00 General appearance: other (sedated and ventilated) Eyes: injected Neck: no lymphadenopathy Effort: mildly labored Auscultation: bilateral: diminished breath sounds (lower lobes), wheezes ( throughout) Cardiovascular: other (tachycardic, regular rhythm) Gastrointestinal: normoactive bowel sounds, soft, non-distended Integumentary: other (lesion on upper right lip/nasolabial fold area, pink, raised, round) Extremities: no cyanosis, pink and warm, edema (1+ pitting edema at the feet) Ventilator Settings Ventilator Settings: Ventilator Settings, Last 8 Hours Ventilator Tidal Volume 460 Setting Ventilator Tidal Volume 460 Setting Ventilator Tidal Volume 460 Setting Ventilator Tidal Volume 460 Setting Ventilator Tidal Volume 460 Setting Ventilator Respiratory Rate 16 Setting Ventilator Respiratory Rate 16 Setting Ventilator Respiratory Rate 16 Setting Ventilator Respiratory Rate 16 Setting Ventilator Respiratory Rate 16 Setting Ventilator Respiratory Rate 16 Setting Ventilator Respiratory Rate 16 Setting Ventilator Respiratory Rate 16 Setting Ventilator Respiratory Rate 16 Setting Ventilator Respiratory Rate 16 Setting Ventilator Respiratory Rate 16 Setting Ventilator Respiratory Rate 16 Setting Actual Respiratory Rate 20 Actual Respiratory Rate 17 Actual Respiratory Rate 16 Actual Respiratory Rate 16 Actual Respiratory Rate 16 Actual Respiratory Rate 16 Actual Respiratory Rate 16 Actual Respiratory Rate 16 Actual Respiratory Rate 16 Actual Respiratory Rate 16 Actual Respiratory Rate 16 Positive End Expiratory 10 Pressure Positive End Expiratory 10 Pressure Positive End Expiratory 10 Pressure Positive End Expiratory 10 Pressure Positive End Expiratory 10 Pressure Positive End Expiratory 10 Pressure Positive End Expiratory 10 Pressure Positive End Expiratory 10 Pressure Positive End Expiratory 10 Pressure Positive End Expiratory 10 Pressure Positive End Expiratory 10 Pressure Positive End Expiratory 10 Pressure Peak Inspiratory Airway 20 Pressure Peak Inspiratory Airway 27 Pressure Peak Inspiratory Airway 29 Pressure Peak Inspiratory Airway 30 Pressure Peak Inspiratory Airway 30 Pressure Peak Inspiratory Airway 29 Pressure Peak Inspiratory Airway 29 Pressure Peak Inspiratory Airway 27 Pressure Peak Inspiratory Airway 29 Pressure Peak Inspiratory Airway 26 Pressure Peak Inspiratory Airway 25 Pressure Results - Laboratory Findings CBC and BMP: 07/04/18 04:00 07/04/18 04:00 ABG ABG pH 7.35 pH Units (7.32-7.45) 07/04/18 04:39 ABG pCO2 55 mmHg (35-45) H 07/04/18 04:39 ABG pO2 75 mmHg (85-104) L 07/04/18 04:39 ABG O2 Saturation 94 % (95-98) L 07/04/18 04:39 PT/INR, D-dimer PT 16.7 Seconds (9.4-12.1) H 06/22/18 03:45 D-Dimer 3465 ng/mLFEU (0-500) H 06/18/18 08:08 Abnormal lab findings: Abnormal lab results WBC 13.3 K/mcL (4.3-11.1) H 07/04/18 04:00 RBC 2.70 M/mcL (4.19-5.50) L 07/04/18 04:00 Hgb 8.2 g/dL (12.9-16.9) L 07/04/18 04:00 Hct 26.7 % (37.5-50.1) L 07/04/18 04:00 MCHC 30.7 g/dL (31.6-35.5) L 07/04/18 04:00 RDW 17.6 % (11.5-14.5) H 07/04/18 04:00 Band Neutrophils % 6.0 % (0-4) H 06/27/18 03:00 Metamyelocytes % 2.0 % (0) H 06/27/18 03:00 Myelocytes % 6.0 % (0) H 06/27/18 03:00 Neutrophils # 10.0 K/mcL (1.6-8.9) H 07/04/18 04:00 Nucleated RBCs/100 WBC 0.1 /100 WBC (0) H 06/28/18 03:30 Reactive Lymphocytes Present (Not Present) A 07/01/18 03:00 Toxic Granulation Present (Not Present) A 06/18/18 03:05 Toxic Vacuolation Present (Not Present) A 06/22/18 03:45 Large Platelets Present (Not Present) A 06/23/18 03:15 Polychromasia 1+ (Not Present) A 06/27/18 03:00 Basophilic Stippling 1+ (Not Present) A 06/26/18 04:00 Anisocytosis 1+ (Not Present) A 06/28/18 03:30 Macrocytosis Present (Not Present) A 06/26/18 04:00 PT 16.7 Seconds (9.4-12.1) H 06/22/18 03:45 APTT 62.8 Seconds (26.0-36.0) H 06/23/18 08:00 Fibrinogen 578 mg/dL (169-393) H 06/18/18 08:08 D-Dimer 3465 ng/mLFEU (0-500) H 06/18/18 08:08 ABG pCO2 55 mmHg (35-45) H 07/04/18 04:39 ABG pO2 75 mmHg (85-104) L 07/04/18 04:39 ABG HCO3 30 mEq/L (21-27) H 07/04/18 04:39 ABG Total CO2 32 mEq/L (20-26) H 07/04/18 04:39 ABG O2 Saturation 94 % (95-98) L 07/04/18 04:39 ABG Base Excess 4 mEq/L (-2 to 3) H 07/04/18 04:39 Sodium 148 mEq/L (136-145) H 07/04/18 04:00 Potassium 3.2 mEq/L (3.5-5.1) L 07/04/18 04:00 Chloride 112 mEq/L (98-107) H 07/04/18 04:00 BUN 30 mg/dL (6-20) H 07/04/18 04:00 Creatinine 2.83 mg/dL (0.70-1.30) H 07/04/18 04:00 Est GFR ( Amer) 29 (> 60) L 07/04/18 04:00 Est GFR (Non-Af Amer) 24 (> 60) L 07/04/18 04:00 Glucose 127 mg/dL (70-105) H 07/04/18 04:00 POC Glucose 123 mg/dL (70-99) H 07/04/18 04:12 Serum Osmolality 327 mOsm/kg (280-300) H 07/01/18 09:48 Calculated Osmolality 314 (280-300) H 07/04/18 04:00 Calcium 8.3 mg/dL (8.6-10.3) L 07/04/18 04:00 Venous Ioniz Calcium 1.13 mmol/L (1.15-1.35) L 07/01/18 03:39 Phosphorus 5.4 mg/dL (2.7-4.5) H 07/04/18 04:00 Iron < 10 mcg/dL (65-175) L 07/01/18 03:00 Transferrin 146 mg/dL (203-362) L 07/01/18 03:00 Ferritin 647 ng/mL (20-250) H 07/01/18 03:00 Direct Bilirubin 0.4 mg/dL (0.0-0.2) H 06/23/18 03:15 Troponin I 0.92 ng/mL (< 0.04) H* 06/17/18 22:33 Serum Total Protein 5.9 g/dL (6.4-8.9) L 07/04/18 04:00 Albumin 2.3 g/dL (3.5-5.7) L 07/04/18 04:00 Globulin 3.6 g/dL (2.4-3.5) H 07/04/18 04:00 Albumin/Globulin Ratio 0.6 (1.1-2.2) L 07/04/18 04:00 Amylase 20 Units/L (29-103) L 06/23/18 16:27 Folate 2.5 ng/mL (3.0-16.0) L 06/27/18 11:25 Procalcitonin 107.11 ng/mL (<=0.07) H 06/17/18 16:40 TSH 7.234 mcIU/mL (0.340-5.600) H 06/27/18 11:25 Ur Specific [place] < 1.005 (1.010-1.025) L 06/30/18 09:34 Urine Blood Moderate (Negative) H 06/30/18 09:34 Ur Leukocyte Esterase Moderate (Negative) H 06/30/18 09:34 Urine Microscopic RBC 3-5 per hpf (0-3) H 06/30/18 09:34 Urine Microscopic WBC 50-100 per hpf (0-3) H 06/30/18 09:34 Urine Bacteria Many per hpf (None-Few) H 06/30/18 09:34 Urine Osmolality 200 mOsm/kg (300-1090) L 06/30/18 09:33 Protein/Creatinin Ratio 1.68 mg/mg (0.00-0.20) H 06/30/18 09:34 Urine Total Protein 52 mg/dL (1-14) H 06/30/18 09:34 Vancomycin Trough 18 mcg/mL (5-10) H 06/19/18 08:20 Urine Opiates Screen Positive ng/mL (Uvplvn=027) H 06/18/18 10:37 U Benzodiazepines Scrn Positive ng/mL (Smxpll=789) H 06/18/18 10:37 HSV I DETECTED (Not Detect) A 06/24/18 15:10 - Microbiology Findings Microbiology Findings: Microbiology, Last 48 Hours 07/01/18 09:03 Urine Culture - Final Urine,Catheterized Escherichia coli - Clinical Findings Intake & Output: Intake & Output 07/03/18 07/03/18 07/04/18 15:59 23:59 07:59 Intake Total 2563 / 2563 1352 / 1352 2028 Output Total 450 / 450 700 / 700 425 / 425 Balance 3 / 2113 652 / 652 1604 / 1604 - VTE Documentation of Mechanical Device: Intermittent pneumatic compression device
[2018-07-04] MEDS: Chlorhexidine Rinse 15 ML MOUTHWASH MM SCH ×2 (07:50→19:30)
[2018-07-04] MEDS: Nystatin SUSP 5 ML UD.LIQ PO SCH ×4 (07:52→19:30)
[2018-07-04] MEDS: Pantoprazole 40 MG VIAL IVP SCH (07:52)
[2018-07-04] MEDS ORDERED: Potassium Chloride Elixir 20 MEQ/15 ML UDC GTUBE ONE (07:52)
[2018-07-04] MEDS ORDERED: Vancomycin 1,750 MG in 0.9 % Sodium Chloride 250 ML IVPB SCH (08:00)
[2018-07-04] MEDS: Piperacillin/Tazobactam 3.375 GM in 0.9 % Sodium Chloride Mini Bag 100 ML IVPB SCH ×3 (08:02→23:03)
[2018-07-04] MEDS: Dexmedetomidine HCl 400 MCG/100 ML MLS IVC SCH ×2 (08:08→17:26)
[2018-07-04] MEDS: Acyclovir 750 MG in D5% in Water 250 ML IVPB SCH ×2 (08:30→19:30)
--- NOTE | 2018-07-04 09:28 | Nephrology Progress Note ---
Date of Encounter: 07/04/18 Time of Encounter: 09:00 - Assessment and Plan (1) LUCILA (acute kidney injury) Current Visit: Yes Status: Acute Polyuric LUCILA, decreasing urine output Suspect that this is most likely due to polyuric phase of renal recovery, however consider diabetes insipidus as a differential as well The patient was putting out 4000-8000mL of urine per day, but yesterday only put out about 1750mL Fluid deficit decreased from 8L to 3.5L today, serum sodium down to 147 today Urine Protein:Creatinine ratio 1.7 Plan -Patient has no acute indication for hemodialysis, however he does continue to have significant LUCILA -Serum creatinine continues to rise slowly, but this is liekly due to persistent hypovolemia with fluid deficit of 3.5L -As patient has been Reintubated, recommend OG tube free water at 400mL q4h -Recommend against use of normal saline as it will increase hypernatremia (2) Hypernatremia Current Visit: Yes Status: Acute Likely secondary to free water deficit in the setting of polyuric phase of renal recovery Polyuria has decreased to some extent, and patient is putting out substantially less fluid He now will have OG tube as he has been intubated again due to declining respiratory status Recommend 400mL free water q4h at this time (3) Acute respiratory failure with hypoxemia Current Visit: Yes Status: Acute Patient required intubation due to worsening respiratory status Management per critical care team (4) Anemia Current Visit: Yes Status: Acute Severe iron deficiency anemia Transfusion parameters per primary team Qualifiers: Anemia type: iron deficiency Iron deficiency anemia type: unspecified iron deficiency Qualified Code(s): D50.9 - Iron deficiency anemia, unspecified Subjective Principal diagnosis: septic shock Interval history: The patient remains intubated at this time. He has had no significant change in clinical status. Objective - Vital Signs Vital signs: Vital Signs Temp Pulse Resp BP Pulse Ox 07/04/18 08:00 19 96 07/04/18 07:30 99.8 F H 07/04/18 06:00 117 20 126/62 97 07/04/18 05:44 17 110/60 97 07/04/18 05:00 98 16 96/51 96 07/04/18 04:34 100.0 F H 07/04/18 04:00 84 16 105/58 94 07/04/18 03:53 16 93/49 94 07/04/18 03:00 85 16 98/58 94 07/04/18 02:00 85 16 93/52 94 07/04/18 01:56 16 93/51 95 07/04/18 01:00 86 16 96/49 94 07/04/18 00:05 99.3 F 07/04/18 00:00 103 16 115/59 96 07/03/18 23:52 16 112/60 97 07/03/18 23:00 105 19 112/60 97 07/03/18 22:00 124 19 134/84 96 07/03/18 21:35 20 122/86 97 07/03/18 21:00 102 16 122/86 96 07/03/18 20:43 97.8 F 07/03/18 20:00 76 16 110/59 97 07/03/18 19:36 19 113/61 97 07/03/18 19:00 74 16 107/58 98 07/03/18 18:00 78 16 111/61 98 07/03/18 17:20 16 97 07/03/18 17:00 80 16 121/72 97 07/03/18 16:00 65 16 106/64 97 07/03/18 15:00 97.4 F L 68 16 98/60 98 07/03/18 14:53 97.3 F L 69 16 98/60 07/03/18 14:50 16 98 07/03/18 14:00 67 16 103/58 98 07/03/18 13:14 98.4 F 64 16 94/54 97 07/03/18 13:00 64 16 94/54 97 07/03/18 12:59 68 16 97/61 97 07/03/18 12:48 98.4 F 65 16 96/51 07/03/18 12:00 65 16 97/52 97 07/03/18 11:00 98.4 F 70 16 98/53 97 07/03/18 10:54 98.4 F 70 16 97/51 97 07/03/18 10:39 98.4 F 70 17 118/76 96 07/03/18 10:05 16 96 07/03/18 10:00 69 16 93/53 96 Intake and Output 07/03/18 07/04/18 07/04/18 23:59 07:59 15:59 Intake Total 1352 / 1352 2028 / 2028 Output Total 700 / 700 575 / 575 Balance 652 / 652 1454 / 1454 Intake: IV Fluids 377 / 377 984 / 984 Dextrose 5% 1,000 ML @ 75 mls/ 734 / 734 hr IVC .[id number] NADIA Rx#: [id number] FentaNYL (PF) 1,000 MCG In 0.9 100 / 100 % Sodium Chloride 80 ML @ 50 MCG/HR 5 mls/hr IVC CONT NADIA Rx #:[id number] FentaNYL (PF) 2,500 MCG In 50 / 50 Empty Bag 1 Each @ 50 MCG/HR 1 mls/hr IVC CONT NADIA Rx#: [id number] Diprivan 1,000 mg In 100 ml @ 5 277 / 277 200 / 200 MCG/KG/MIN 3.345 mls/hr IVC . Q24H NADIA Rx#:[id number] Tube Feeding 75 / 75 145 / 145 Free Water 600 / 600 600 / 600 Free Water Intake Amount 300 / 300 300 / 300 Output: Catheter 450 / 450 575 / 575 Gastric Drainage 250 / 250 Other: Blood Glucose* 132 168 - General Appearance Exam: Gen: Vitals noted. No acute distress. Sedated on Mechanical ventilation. HEENT: Normocephalic, atraumatic. Dry mucous membranes. Neck: Supple. No adenopathy. Right internal jugular temporary hemodialysis catheter in place with no erythema surrounding Cardiac: RRR, no murmur, +S1/S2 Pulmonary: Clear to auscultation bilaterally, diminished in the right lung base Abdomen: soft, nontender, no guarding Extremities: 2+ bilateral lower extremity edema, nontender calf, no cyanosis or clubbing Neuro: Patient has been extubated and is largely off sedation. Follows commands. - Lab 07/04/18 04:00 07/04/18 14:30 Most recent lab results ABG pH 7.35 pH Units (7.32-7.45) 07/04/18 04:39 ABG pCO2 55 mmHg (35-45) H 07/04/18 04:39 ABG pO2 75 mmHg (85-104) L 07/04/18 04:39 ABG HCO3 30 mEq/L (21-27) H 07/04/18 04:39 ABG O2 Saturation 94 % (95-98) L 07/04/18 04:39 Calcium 8.3 mg/dL (8.6-10.3) L 07/04/18 04:00 Phosphorus 5.4 mg/dL (2.7-4.5) H 07/04/18 04:00 Magnesium 1.7 mg/dL (1.6-2.6) 07/04/18 04:00 Urine Creatinine 31 mg/dL 06/30/18 09:34 Urine Sodium 40.6 mEq/L 06/30/18 09:34 Urine Total Protein 52 mg/dL (1-14) H 06/30/18 09:34 - VTE Documentation of Mechanical Device: Intermittent pneumatic compression device Consult Discharge Plan - Plan Referrals: Sheryl Stahl, [employer] [Primary Care Provider] -
[2018-07-04] MEDS ORDERED: Albumin 25% 25gram/100mL 25 GM/100 ML IV.SOLN IVPB ONE (10:25)
[2018-07-04] MEDS: Norepinephrine 4 MG in D5% in Water 250 ML IVC SCH ×2 (10:59→18:29)
[2018-07-04] MEDS: 0.9 % Sodium Chloride 500 ML IVC SCH (11:00)
[2018-07-04 15:27] LABS: Calcium 8.1 mg/dL (8.6-10.3); Potassium 3.4 mEq/L (3.5-5.1)
[2018-07-04] MEDS: Sennosides/Docusate Sodium TABLET PO SCH (19:31)
[2018-07-04] MEDS: Acetaminophen IV 1,000 MG/100 ML INFUS..BTL IVPB PRN (20:33)
[2018-07-05] MEDS: 0.9 % Sodium Chloride 500 ML IVC SCH (00:51)
[2018-07-05] MEDS: Insulin LISPRO 300 UNITS/3 ML VIAL SQ SCH ×6 (04:06→23:13)
[2018-07-05] MEDS: Artificial Tears SOLN 15 ML BOTTLE BOTH EYES SCH ×6 (04:06→23:10)
[2018-07-05] MEDS: Dexmedetomidine HCl 400 MCG/100 ML MLS IVC SCH ×3 (04:06→19:51)
[2018-07-05 04:17] LABS: Basophils # 0.1 K/mcL (0.0-0.2); Basophils % 0.7 %; Eosinophils # 0.5 K/mcL (0.0-0.6); Eosinophils % 3.9 %; Hematocrit 26.9 % (37.5-50.1); Hemoglobin 8.4 g/dL (12.9-16.9); Immature Granulocytes % 0.5 % (0-4); Lymphocytes # 2.1 K/mcL (0.6-4.6); Lymphocytes % 16.4 %; Mean Corpuscular HGB Conc 31.2 g/dL (31.6-35.5); Mean Corpuscular Hemoglobin 31.5 pg (28.0-33.3); Mean Corpuscular Volume 100.7 fL (83.0-100.0); Mean Platelet Volume 12.3 fL (9.4-12.4); Monocytes # 0.9 K/mcL (0.0-1.3); Monocytes % 7.3 %; Neutrophils # 9.1 K/mcL (1.6-8.9); Platelet Count 152 K/mcL (140-400); Red Blood Count 2.67 M/mcL (4.19-5.50); Segmented Neutrophils % 71.2 %
[2018-07-05 04:33] LABS: Calcium 8.5 mg/dL (8.6-10.3); Magnesium 1.7 mg/dL (1.6-2.6); Phosphorous 5.9 mg/dL (2.7-4.5); Potassium 3.6 mEq/L (3.5-5.1)
[2018-07-05] MEDS: *HR* Heparin 5,000 UNIT/ML VIAL SQ SCH ×2 (05:29→16:27)
[2018-07-05] MEDS: FentaNYL (PF) 2,500 MCG in EMPTY BAG 1 EACH IVC SCH ×2 (05:29→19:18)
[2018-07-05] MEDS: Norepinephrine 4 MG in D5% in Water 250 ML IVC SCH (05:31)
--- NOTE | 2018-07-05 06:45 | Pulmonology Progress Note ---
<JonasMaximo W - Last Filed: 07/05/18 08:39> Date of Encounter: 07/05/18 Objective PUL Vital signs: Last Vital Signs Temp 101.7 F H 07/05/18 08:00 Pulse 104 07/05/18 08:17 Resp 20 07/05/18 08:00 BP 129/62 07/05/18 08:00 Pulse Ox 96 07/05/18 08:00 Ventilator Settings Ventilator Settings: Ventilator Settings, Last 8 Hours Ventilator Tidal Volume 460 Setting Ventilator Tidal Volume 460 Setting Ventilator Tidal Volume 460 Setting Ventilator Tidal Volume 460 Setting Ventilator Tidal Volume 460 Setting Ventilator Tidal Volume 460 Setting Ventilator Tidal Volume 460 Setting Ventilator Tidal Volume 460 Setting Ventilator Tidal Volume 460 Setting Ventilator Tidal Volume 460 Setting Ventilator Tidal Volume 460 Setting Ventilator Respiratory Rate 16 Setting Ventilator Respiratory Rate 16 Setting Ventilator Respiratory Rate 16 Setting Ventilator Respiratory Rate 16 Setting Ventilator Respiratory Rate 16 Setting Ventilator Respiratory Rate 16 Setting Ventilator Respiratory Rate 16 Setting Ventilator Respiratory Rate 16 Setting Ventilator Respiratory Rate 16 Setting Ventilator Respiratory Rate 16 Setting Ventilator Respiratory Rate 16 Setting Actual Respiratory Rate 20 Actual Respiratory Rate 16 Actual Respiratory Rate 16 Actual Respiratory Rate 16 Actual Respiratory Rate 16 Actual Respiratory Rate 16 Actual Respiratory Rate 16 Actual Respiratory Rate 16 Actual Respiratory Rate 16 Actual Respiratory Rate 16 Actual Respiratory Rate 16 Positive End Expiratory 10 Pressure Positive End Expiratory 5 Pressure Positive End Expiratory 10 Pressure Positive End Expiratory 10 Pressure Positive End Expiratory 10 Pressure Positive End Expiratory 10 Pressure Positive End Expiratory 10 Pressure Positive End Expiratory 10 Pressure Positive End Expiratory 10 Pressure Positive End Expiratory 10 Pressure Positive End Expiratory 10 Pressure Peak Inspiratory Airway 25 Pressure Peak Inspiratory Airway 29 Pressure Peak Inspiratory Airway 30 Pressure Peak Inspiratory Airway 30 Pressure Peak Inspiratory Airway 29 Pressure Peak Inspiratory Airway 28 Pressure Peak Inspiratory Airway 28 Pressure Peak Inspiratory Airway 28 Pressure Peak Inspiratory Airway 27 Pressure Peak Inspiratory Airway 28 Pressure Peak Inspiratory Airway 28 Pressure Results - Laboratory Findings CBC and BMP: 07/05/18 04:00 07/05/18 04:00 ABG ABG pH 7.35 pH Units (7.32-7.45) 07/04/18 04:39 ABG pCO2 55 mmHg (35-45) H 07/04/18 04:39 ABG pO2 75 mmHg (85-104) L 07/04/18 04:39 ABG O2 Saturation 94 % (95-98) L 07/04/18 04:39 PT/INR, D-dimer PT 16.7 Seconds (9.4-12.1) H 06/22/18 03:45 D-Dimer 3465 ng/mLFEU (0-500) H 06/18/18 08:08 Abnormal lab findings: Abnormal lab results WBC 12.8 K/mcL (4.3-11.1) H 07/05/18 04:00 RBC 2.67 M/mcL (4.19-5.50) L 07/05/18 04:00 Hgb 8.4 g/dL (12.9-16.9) L 07/05/18 04:00 Hct 26.9 % (37.5-50.1) L 07/05/18 04:00 MCV 100.7 fL (83.0-100.0) H 07/05/18 04:00 MCHC 31.2 g/dL (31.6-35.5) L 07/05/18 04:00 RDW 17.0 % (11.5-14.5) H 07/05/18 04:00 Band Neutrophils % 6.0 % (0-4) H 06/27/18 03:00 Metamyelocytes % 2.0 % (0) H 06/27/18 03:00 Myelocytes % 6.0 % (0) H 06/27/18 03:00 Neutrophils # 9.1 K/mcL (1.6-8.9) H 07/05/18 04:00 Nucleated RBCs/100 WBC 0.1 /100 WBC (0) H 06/28/18 03:30 Reactive Lymphocytes Present (Not Present) A 07/01/18 03:00 Toxic Granulation Present (Not Present) A 06/18/18 03:05 Toxic Vacuolation Present (Not Present) A 06/22/18 03:45 Large Platelets Present (Not Present) A 06/23/18 03:15 Polychromasia 1+ (Not Present) A 06/27/18 03:00 Basophilic Stippling 1+ (Not Present) A 06/26/18 04:00 Anisocytosis 1+ (Not Present) A 06/28/18 03:30 Macrocytosis Present (Not Present) A 06/26/18 04:00 PT 16.7 Seconds (9.4-12.1) H 06/22/18 03:45 APTT 62.8 Seconds (26.0-36.0) H 06/23/18 08:00 Fibrinogen 578 mg/dL (169-393) H 06/18/18 08:08 D-Dimer 3465 ng/mLFEU (0-500) H 06/18/18 08:08 ABG pCO2 55 mmHg (35-45) H 07/04/18 04:39 ABG pO2 75 mmHg (85-104) L 07/04/18 04:39 ABG HCO3 30 mEq/L (21-27) H 07/04/18 04:39 ABG Total CO2 32 mEq/L (20-26) H 07/04/18 04:39 ABG O2 Saturation 94 % (95-98) L 07/04/18 04:39 ABG Base Excess 4 mEq/L (-2 to 3) H 07/04/18 04:39 Sodium 150 mEq/L (136-145) H 07/05/18 04:00 Chloride 114 mEq/L (98-107) H 07/05/18 04:00 BUN 31 mg/dL (6-20) H 07/05/18 04:00 Creatinine 3.09 mg/dL (0.70-1.30) H 07/05/18 04:00 Est GFR ( Amer) 26 (> 60) L 07/05/18 04:00 Est GFR (Non-Af Amer) 21 (> 60) L 07/05/18 04:00 Glucose 215 mg/dL (70-105) H 07/05/18 04:00 POC Glucose 204 mg/dL (70-99) H 07/05/18 07:28 Serum Osmolality 327 mOsm/kg (280-300) H 07/01/18 09:48 Calculated Osmolality 323 (280-300) H 07/05/18 04:00 Calcium 8.5 mg/dL (8.6-10.3) L 07/05/18 04:00 Venous Ioniz Calcium 1.13 mmol/L (1.15-1.35) L 07/01/18 03:39 Phosphorus 5.9 mg/dL (2.7-4.5) H 07/05/18 04:00 Iron < 10 mcg/dL (65-175) L 07/01/18 03:00 Transferrin 146 mg/dL (203-362) L 07/01/18 03:00 Ferritin 647 ng/mL (20-250) H 07/01/18 03:00 Direct Bilirubin 0.4 mg/dL (0.0-0.2) H 06/23/18 03:15 Troponin I 0.92 ng/mL (< 0.04) H* 06/17/18 22:33 Serum Total Protein 5.9 g/dL (6.4-8.9) L 07/04/18 04:00 Albumin 2.3 g/dL (3.5-5.7) L 07/04/18 04:00 Globulin 3.6 g/dL (2.4-3.5) H 07/04/18 04:00 Albumin/Globulin Ratio 0.6 (1.1-2.2) L 07/04/18 04:00 Amylase 20 Units/L (29-103) L 06/23/18 16:27 Folate 2.5 ng/mL (3.0-16.0) L 06/27/18 11:25 Procalcitonin 107.11 ng/mL (<=0.07) H 06/17/18 16:40 TSH 7.234 mcIU/mL (0.340-5.600) H 06/27/18 11:25 Ur Specific [place] < 1.005 (1.010-1.025) L 06/30/18 09:34 Urine Blood Moderate (Negative) H 06/30/18 09:34 Ur Leukocyte Esterase Moderate (Negative) H 06/30/18 09:34 Urine Microscopic RBC 3-5 per hpf (0-3) H 06/30/18 09:34 Urine Microscopic WBC 50-100 per hpf (0-3) H 06/30/18 09:34 Urine Bacteria Many per hpf (None-Few) H 06/30/18 09:34 Urine Osmolality 200 mOsm/kg (300-1090) L 06/30/18 09:33 Protein/Creatinin Ratio 1.68 mg/mg (0.00-0.20) H 06/30/18 09:34 Urine Total Protein 52 mg/dL (1-14) H 06/30/18 09:34 Vancomycin Trough 19 mcg/mL (5-10) H 07/05/18 04:00 Urine Opiates Screen Positive ng/mL (Hjnljo=504) H 06/18/18 10:37 U Benzodiazepines Scrn Positive ng/mL (Oabyoe=089) H 06/18/18 10:37 HSV I DETECTED (Not Detect) A 06/24/18 15:10 - Microbiology Findings Microbiology Findings: Microbiology, Last 48 Hours 07/04/18 11:59 Blood Culture - Preliminary Peripheral Venipuncture Culture is incubating and being continuously monitored for growth. Final report to follow. 07/04/18 10:34 Blood Culture - Preliminary Peripheral Venipuncture Culture is incubating and being continuously monitored for growth. Final report to follow. 07/04/18 07:38 Sputum Culture - Preliminary Aspirate 07/01/18 09:03 Urine Culture - Final Urine,Catheterized Escherichia coli - Clinical Findings Intake & Output: Intake & Output 07/04/18 07/05/18 07/05/18 23:59 07:59 15:59 Intake Total 1488.4 / 1488.4 860 / 860 Output Total 1225 / 1225 1650 / 1650 Balance 263.4 / 263.4 -790 / -790 Weight 108.6 kg Consult Discharge Plan - Plan Referrals: Sheryl Stahl SERVICE ENGINEER [Primary Care Provider] - - Attending Attestation I examined this patient and my medical decision-making was reviewed with the Resident Physician. I agree with the documented findings, disposition and treatment plan as described except to the extent set forth below. We independently had [id number] contact with the patient I spent 35min of Critical Care time with this patient. It involved decision making of high complexity to assess, manipulate, and support vital organ system failure and/or to prevent further life threatening deterioration of the patient' s condition. The time involved in the performance of separately reportable procedures was not counted toward critical care time. Patient seen and examined at bedside Labs, radiology, chart personally reviewed. Management was reviewed during multidisciplinary critical care rounds. 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 Lighten sedation for goal Watson 2-3 today Pulm: Acceptable oxygenation on vent Cont LTV strategy with higher peep. Not candidate for SBT today because of PEEP >8 which we will attempt to decrease. I suspect he will need Tracheostomy early part of this coming week for ongoing convalescence. Cards: BP monitored and stable. Tachycardia has resolved GI: GI prophylaxis given. Cont Bowel regimen. Nutrition: Cont Enteral nutrition per dietary recs. Renal: UOP Monitored, Cont to Trend sCr and monitor Electrolytes. ID: Concerningly remains persistently febrile with elevated WBC count (although down from yesterday). He is on Tx for HAP, E Coli UTI, and Acyclovir for herpetic lesions. Monitor this AM for cont Fever and would send for CT chest ABD/Pelvis to r/o occult infectious source/abscess. Heme/Onc: DVT prophylaxis given. H/H plts stable. Endo: Glucose Monitored Integ/MSK: Skin Care per routine ICU Nursing Protocol to prevent ulcers. Lines: All lines examined without evidence of infection : Dispo: Remain in ICU for critical illness CODE: Full. (POA) updated at bedside. <Forest Florentino - Last Filed: 07/05/18 10:42> Date of Encounter: 07/05/18 Time of Encounter: 06:44 Assessment and Plan (1) Septic shock Current Visit: Yes Status: Acute Several suspected infections with clear evidence of Escherichia coli urinary tract infection, suspected hospital associated pneumonia, and karo fungemia Continue norepinephrine pressor support to maintain MAP > 65 Repeat blood cultures collected 07/04/18, results pending Continue broad-spectrum antimicrobials Continue Nystatin per ID recommendations Given complexity of his antibiotics recommend reconsulting infectious disease for further recommendations (2) Acute respiratory failure with hypoxia and hypercapnia Current Visit: Yes Status: Acute Patient was extubated on 07/01/18 but had to be reintubated 07/02/18 due to respiratory distress and worsening encephalopathy. Acceptable gas exchange, continue low tidal volume high PEEP strategy for lung recruitment. No clear pattern c/w ARDS. Continue to closely monitor respiratory status. CT chest pending (3) Healthcare-associated pneumonia Current Visit: Yes Status: Acute Patient had more sputum production from the endotracheal tube, Tmax 101.7, and chest x-ray consistent with hospital associated pneumonia CT chest pending Sputum culture pending Blood cultures pending Patient initially on Rocephin for UTI, coverage broadened to Vancomycin and Zosyn 07/04/18, switch to Merrem 07/05/18 Continue vancomycin (day 2), Merrem (day 1) Continue bronchodilators Aspiration precautions Continue close monitoring (4) UTI (urinary tract infection) Current Visit: Yes Status: Acute Urine culture from 07/01/18 grew Escherichia coli Rocephin initially given, then antibiotic coverage broadened to Vancomycin and Zosyn 07/04/18, discontinued Zosyn and started Merrem 07/05/18 CT abdomen/ pelvis pending Qualifiers: Urinary tract infection type: site unspecified Hematuria presence: without hematuria Qualified Code(s): N39.0 - Urinary tract infection, site not specified (5) LUCILA (acute kidney injury) Current Visit: Yes Status: Acute Serum creatinine slightly increased since starting patient on Vancomycin and Zosyn, Zosyn was switched to Merrem Continue free water mormon Urine output remains acceptable Appreciate nephrology recommendations, may consider resuming intermittent dialysis as needed (6) HSV (herpes simplex virus) infection Current Visit: Yes Status: Acute Acyclovir stopped 07/02/18 however, discovered new oral herpetic lesions on exam consistent with HSV, Acyclovir restarted 07/04/18 PCR positive for HSV1 Appreciate infectious disease recommendations (7) Encephalopathy Current Visit: Yes Status: Acute Neuro following, encephalopathy likely from toxic metabolic causes. Patient had unsuccessful lumbar puncture attempt under fluoroscopic guidance Fluconazole stopped 07/03/18, acyclovir stopped on 06/01/18 and restarted 06/03/18 Continue close monitoring (8) Acute on chronic systolic CHF (congestive heart failure) Current Visit: Yes Status: Acute Echo 06/17/18 reveals LV systolic function severely reduced, mild LV diastolic dysfunction, mild tricuspid regurgitation, no pulmonary hypertension CXR with pulmonary vascular congestion, pleural effusions Elevated BNP 108 Resume beta dario and CHRISTIN inhibitor once hypotension and LUCILA resolves Consider spironolactone once clinical condition improves (9) COPD (chronic obstructive pulmonary disease) Current Visit: Yes Status: Chronic Patient was extubated and placed on bipap on 07/01/18, then reintubated 07/02/18 due to respiratory distress and worsening encephalopathy. Continue bronchodilators No indication for steroids at this time Perform ABG when necessary Continue to monitor Qualifiers: COPD type: emphysema Emphysema type: unspecified Qualified Code(s): J43.9 - Emphysema, unspecified (10) Type 2 diabetes mellitus Current Visit: Yes Status: Chronic Hemoglobin A1c 7.9 on 12/30/17 Continue medium dose SSI Continue Accu-Cheks Qualifiers: Diabetes mellitus termite helper insulin use: with termite helper use Diabetes mellitus complication status: with unspecified complications Qualified Code(s) : E11.8 - Type 2 diabetes mellitus with unspecified complications; Z79.4 - [facility] (current) use of insulin (11) Hypernatremia Current Visit: Yes Status: Acute Hypernatremia stable with free water mormon Continue gentle hydration as tolerated Appreciate nephrology recommendations Continue monitoring (12) Hypocalcemia Current Visit: Yes Status: Acute Calcium supplemented Continue monitoring (13) Hypokalemia Current Visit: Yes Status: Resolved Resolved Continue potassium supplementation Continue monitoring (14) Thrombocytopenia Current Visit: Yes Status: Resolved Resolved Continue monitoring (15) Constipation Current Visit: Yes Status: Acute Senna plus changed to scheduled dosing Continue close monitoring Qualifiers: Constipation type: unspecified constipation type Qualified Code(s): K59.00 - Constipation, unspecified (16) Obesity (BMI 30.0-34.9) Current Visit: Yes Status: Acute BMI 32.5, Continue TPN (17) DVT prophylaxis Current Visit: Yes Status: Acute Heparin subcutaneous TID Subjective Principal diagnosis: septic shock Interval history: Patient seen and examined resting comfortably in bed. He is now off sedation and remains intubated. Patient had Tmax 101.[address] scan chest and abdomen pelvis were ordered. He has not had a bowel movement since we resumed scheduled dosing of senna plus. Patient continues to have good urine output. His serum creatinine has slightly increased after starting Vancomycin and Zosyn yesterday. Objective PUL Vital signs: Last Vital Signs Temp 100.8 F H 07/05/18 03:00 Pulse 78 07/05/18 06:00 Resp 16 07/05/18 06:00 BP 116/57 07/05/18 06:00 Pulse Ox 97 07/05/18 06:00 General appearance: asleep (Intubated, off sedation, response to noxious stimuli ) Eyes: nonicteric (PERRL) ENT: oropharynx dry Neck: supple (Intubated), no JVD Effort: mildly labored (Remains on the ventilator, equal breath sounds) Auscultation: bilateral: diminished breath sounds (Bibasilar) Cardiovascular: regular rate and rhythm (1+ pedal edema) Gastrointestinal: hypoactive bowel sounds, soft, non-tender Integumentary: other (Skin warm and dry) Extremities: pink and warm, pulses normal, edema (1+) Musculoskeletal: no deformities Gait: normal posture unable to assess due to mental status (Patient off sedation, response to noxious stimuli) Ventilator Settings Ventilator Settings: Ventilator Settings, Last 8 Hours Ventilator Tidal Volume 460 Setting Ventilator Tidal Volume 460 Setting Ventilator Tidal Volume 460 Setting Ventilator Tidal Volume 460 Setting Ventilator Tidal Volume 460 Setting Ventilator Tidal Volume 460 Setting Ventilator Tidal Volume 460 Setting Ventilator Tidal Volume 460 Setting Ventilator Tidal Volume 460 Setting Ventilator Tidal Volume 460 Setting Ventilator Tidal Volume 460 Setting Ventilator Tidal Volume 460 Setting Ventilator Respiratory Rate 16 Setting Ventilator Respiratory Rate 16 Setting Ventilator Respiratory Rate 16 Setting Ventilator Respiratory Rate 16 Setting Ventilator Respiratory Rate 16 Setting Ventilator Respiratory Rate 16 Setting Ventilator Respiratory Rate 16 Setting Ventilator Respiratory Rate 16 Setting Ventilator Respiratory Rate 16 Setting Ventilator Respiratory Rate 16 Setting Ventilator Respiratory Rate 16 Setting Ventilator Respiratory Rate 16 Setting Actual Respiratory Rate 16 Actual Respiratory Rate 16 Actual Respiratory Rate 16 Actual Respiratory Rate 16 Actual Respiratory Rate 16 Actual Respiratory Rate 16 Actual Respiratory Rate 16 Actual Respiratory Rate 16 Actual Respiratory Rate 16 Actual Respiratory Rate 16 Actual Respiratory Rate 16 Actual Respiratory Rate 16 Positive End Expiratory 10 Pressure Positive End Expiratory 10 Pressure Positive End Expiratory 10 Pressure Positive End Expiratory 10 Pressure Positive End Expiratory 10 Pressure Positive End Expiratory 10 Pressure Positive End Expiratory 10 Pressure Positive End Expiratory 10 Pressure Positive End Expiratory 10 Pressure Positive End Expiratory 10 Pressure Positive End Expiratory 10 Pressure Positive End Expiratory 10 Pressure Peak Inspiratory Airway 30 Pressure Peak Inspiratory Airway 30 Pressure Peak Inspiratory Airway 29 Pressure Peak Inspiratory Airway 28 Pressure Peak Inspiratory Airway 28 Pressure Peak Inspiratory Airway 28 Pressure Peak Inspiratory Airway 27 Pressure Peak Inspiratory Airway 28 Pressure Peak Inspiratory Airway 28 Pressure Peak Inspiratory Airway 27 Pressure Peak Inspiratory Airway 28 Pressure Peak Inspiratory Airway 28 Pressure Results - Laboratory Findings CBC and BMP: 07/05/18 04:00 07/05/18 04:00 ABG ABG pH 7.35 pH Units (7.32-7.45) 07/04/18 04:39 ABG pCO2 55 mmHg (35-45) H 07/04/18 04:39 ABG pO2 75 mmHg (85-104) L 07/04/18 04:39 ABG O2 Saturation 94 % (95-98) L 07/04/18 04:39 PT/INR, D-dimer PT 16.7 Seconds (9.4-12.1) H 06/22/18 03:45 D-Dimer 3465 ng/mLFEU (0-500) H 06/18/18 08:08 Abnormal lab findings: Abnormal lab results WBC 12.8 K/mcL (4.3-11.1) H 07/05/18 04:00 RBC 2.67 M/mcL (4.19-5.50) L 07/05/18 04:00 Hgb 8.4 g/dL (12.9-16.9) L 07/05/18 04:00 Hct 26.9 % (37.5-50.1) L 07/05/18 04:00 MCV 100.7 fL (83.0-100.0) H 07/05/18 04:00 MCHC 31.2 g/dL (31.6-35.5) L 07/05/18 04:00 RDW 17.0 % (11.5-14.5) H 07/05/18 04:00 Band Neutrophils % 6.0 % (0-4) H 06/27/18 03:00 Metamyelocytes % 2.0 % (0) H 06/27/18 03:00 Myelocytes % 6.0 % (0) H 06/27/18 03:00 Neutrophils # 9.1 K/mcL (1.6-8.9) H 07/05/18 04:00 Nucleated RBCs/100 WBC 0.1 /100 WBC (0) H 06/28/18 03:30 Reactive Lymphocytes Present (Not Present) A 07/01/18 03:00 Toxic Granulation Present (Not Present) A 06/18/18 03:05 Toxic Vacuolation Present (Not Present) A 06/22/18 03:45 Large Platelets Present (Not Present) A 06/23/18 03:15 Polychromasia 1+ (Not Present) A 06/27/18 03:00 Basophilic Stippling 1+ (Not Present) A 06/26/18 04:00 Anisocytosis 1+ (Not Present) A 06/28/18 03:30 Macrocytosis Present (Not Present) A 06/26/18 04:00 PT 16.7 Seconds (9.4-12.1) H 06/22/18 03:45 APTT 62.8 Seconds (26.0-36.0) H 06/23/18 08:00 Fibrinogen 578 mg/dL (169-393) H 06/18/18 08:08 D-Dimer 3465 ng/mLFEU (0-500) H 06/18/18 08:08 ABG pCO2 55 mmHg (35-45) H 07/04/18 04:39 ABG pO2 75 mmHg (85-104) L 07/04/18 04:39 ABG HCO3 30 mEq/L (21-27) H 07/04/18 04:39 ABG Total CO2 32 mEq/L (20-26) H 07/04/18 04:39 ABG O2 Saturation 94 % (95-98) L 07/04/18 04:39 ABG Base Excess 4 mEq/L (-2 to 3) H 07/04/18 04:39 Sodium 150 mEq/L (136-145) H 07/05/18 04:00 Chloride 114 mEq/L (98-107) H 07/05/18 04:00 BUN 31 mg/dL (6-20) H 07/05/18 04:00 Creatinine 3.09 mg/dL (0.70-1.30) H 07/05/18 04:00 Est GFR ( Amer) 26 (> 60) L 07/05/18 04:00 Est GFR (Non-Af Amer) 21 (> 60) L 07/05/18 04:00 Glucose 215 mg/dL (70-105) H 07/05/18 04:00 POC Glucose 209 mg/dL (70-99) H 07/05/18 04:03 Serum Osmolality 327 mOsm/kg (280-300) H 07/01/18 09:48 Calculated Osmolality 323 (280-300) H 07/05/18 04:00 Calcium 8.5 mg/dL (8.6-10.3) L 07/05/18 04:00 Venous Ioniz Calcium 1.13 mmol/L (1.15-1.35) L 07/01/18 03:39 Phosphorus 5.9 mg/dL (2.7-4.5) H 07/05/18 04:00 Iron < 10 mcg/dL (65-175) L 07/01/18 03:00 Transferrin 146 mg/dL (203-362) L 07/01/18 03:00 Ferritin 647 ng/mL (20-250) H 07/01/18 03:00 Direct Bilirubin 0.4 mg/dL (0.0-0.2) H 06/23/18 03:15 Troponin I 0.92 ng/mL (< 0.04) H* 06/17/18 22:33 Serum Total Protein 5.9 g/dL (6.4-8.9) L 07/04/18 04:00 Albumin 2.3 g/dL (3.5-5.7) L 07/04/18 04:00 Globulin 3.6 g/dL (2.4-3.5) H 07/04/18 04:00 Albumin/Globulin Ratio 0.6 (1.1-2.2) L 07/04/18 04:00 Amylase 20 Units/L (29-103) L 06/23/18 16:27 Folate 2.5 ng/mL (3.0-16.0) L 06/27/18 11:25 Procalcitonin 107.11 ng/mL (<=0.07) H 06/17/18 16:40 TSH 7.234 mcIU/mL (0.340-5.600) H 06/27/18 11:25 Ur Specific [place] < 1.005 (1.010-1.025) L 06/30/18 09:34 Urine Blood Moderate (Negative) H 06/30/18 09:34 Ur Leukocyte Esterase Moderate (Negative) H 06/30/18 09:34 Urine Microscopic RBC 3-5 per hpf (0-3) H 06/30/18 09:34 Urine Microscopic WBC 50-100 per hpf (0-3) H 06/30/18 09:34 Urine Bacteria Many per hpf (None-Few) H 06/30/18 09:34 Urine Osmolality 200 mOsm/kg (300-1090) L 06/30/18 09:33 Protein/Creatinin Ratio 1.68 mg/mg (0.00-0.20) H 06/30/18 09:34 Urine Total Protein 52 mg/dL (1-14) H 06/30/18 09:34 Vancomycin Trough 19 mcg/mL (5-10) H 07/05/18 04:00 Urine Opiates Screen Positive ng/mL (Pdnfcr=546) H 06/18/18 10:37 U Benzodiazepines Scrn Positive ng/mL (Zhimde=828) H 06/18/18 10:37 HSV I DETECTED (Not Detect) A 06/24/18 15:10 - Microbiology Findings Microbiology Findings: Microbiology, Last 48 Hours 07/04/18 11:59 Blood Culture - Preliminary Peripheral Venipuncture Culture is incubating and being continuously monitored for growth. Final report to follow. 07/04/18 10:34 Blood Culture - Preliminary Peripheral Venipuncture Culture is incubating and being continuously monitored for growth. Final report to follow. 07/04/18 07:38 Sputum Culture - Preliminary Aspirate 07/01/18 09:03 Urine Culture - Final Urine,Catheterized Escherichia coli - Diagnostic Findings Chest x-ray: report reviewed, image reviewed - Clinical Findings Intake & Output: Intake & Output 07/04/18 07/04/18 07/05/18 15:59 23:59 07:59 Intake Total 991.6 / 991.6 1488.4 / 1488.4 860 / 860 Output Total 700 / 700 1225 / 1225 950 / 950 Balance 291.6 / 291.6 263.4 / 263.4 -90 / -90 Weight 108.6 kg - VTE Documentation of Mechanical Device: Intermittent pneumatic compression device
[2018-07-05] MEDS ORDERED: Vancomycin 1 EACH in EMPTY BAG 1 EACH IVPB SCH (08:00)
[2018-07-05] MEDS: Acyclovir 750 MG in D5% in Water 250 ML IVPB SCH ×2 (09:13→19:17)
[2018-07-05] MEDS: Piperacillin/Tazobactam 3.375 GM in 0.9 % Sodium Chloride Mini Bag 100 ML IVPB SCH (09:14)
[2018-07-05] MEDS: Chlorhexidine Rinse 15 ML MOUTHWASH MM SCH ×2 (09:17→19:17)
[2018-07-05] MEDS: Nystatin SUSP 5 ML UD.LIQ PO SCH ×4 (09:17→19:17)
[2018-07-05] MEDS: Pantoprazole 40 MG VIAL IVP SCH (09:17)
[2018-07-05] MEDS: Sennosides/Docusate Sodium TABLET PO SCH ×2 (09:18→19:17)
--- NOTE | 2018-07-05 10:43 | Nephrology Progress Note ---
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 (4) Anemia Current Visit: Yes Status: Acute Qualifiers: Qualified Code(s): D50.9 - Iron deficiency anemia, unspecified (5) Hypernatremia Current Visit: Yes Status: Acute Subjective Principal diagnosis: septic shock Interval history: Intreim noted with pt seen and examined and remains intubated/sedated Objective - Vital Signs Vital signs: Vital Signs Temp Pulse Resp BP Pulse Ox 07/05/18 10:00 125 20 121/60 94 07/05/18 09:09 20 129/62 96 07/05/18 09:00 113 16 130/61 94 07/05/18 08:17 104 07/05/18 08:00 101.7 F H 109 20 129/62 96 07/05/18 07:35 101.7 F H 07/05/18 07:20 16 129/62 94 07/05/18 06:00 78 16 116/57 97 07/05/18 05:24 17 130/64 96 07/05/18 05:00 79 16 130/64 97 07/05/18 04:00 64 16 85/41 97 07/05/18 03:24 17 126/61 99 07/05/18 03:00 100.8 F H 76 16 126/61 97 07/05/18 02:00 79 16 123/60 97 07/05/18 01:23 16 129/61 97 07/05/18 01:00 72 16 129/61 97 07/05/18 00:00 75 16 127/63 97 07/04/18 23:47 18 131/62 98 07/04/18 23:00 99.7 F H 80 16 130/67 95 07/04/18 22:04 16 115/59 95 07/04/18 22:00 64 16 85/41 97 07/04/18 21:00 86 16 108/56 95 09/07/18 20:22 16 114/60 96 07/04/18 20:00 80 16 114/60 97 07/04/18 19:00 101.1 F H 74 16 117/64 96 07/04/18 18:00 64 16 85/41 97 07/04/18 17:59 16 76/40 97 07/04/18 17:00 66 16 76/40 97 07/04/18 16:30 100.2 F H 07/04/18 16:00 72 16 93/43 95 07/04/18 15:27 16 98/54 95 07/04/18 15:00 93 16 98/54 95 07/04/18 14:19 16 96 07/04/18 14:00 80 16 95/54 96 07/04/18 13:00 81 16 101/60 95 07/04/18 12:00 81 16 113/66 95 07/04/18 11:44 100.1 F H 07/04/18 11:10 16 95 07/04/18 11:00 123 16 130/69 94 Intake and Output 07/04/18 07/05/18 07/05/18 23:59 07:59 15:59 Intake Total 1488.4 / 1488.4 860 / 860 Output Total 1225 / 1225 1650 / 1650 Balance 263.4 / 263.4 -790 / -790 Intake: IV Fluids 688.4 / 688.4 700 / 700 PRECEDEX Premix 400 mcg In 100 73.4 / 73.4 100 / 100 ml @ 0.2 MCG/KG/HR 5.45 mls/hr IVC .[id number] [facility] Rx#:[id number] FentaNYL (PF) 2,500 MCG In 50 / 50 50 / 50 Empty Bag 1 Each @ 50 MCG/HR 1 mls/hr IVC CONT [facility] Rx#: [id number] Levophed 4 MG In Dextrose 5% 250 / 250 250 ML @ 8 MCG/MIN 30.48 mls/hr IVC CONT [facility] Rx#:[id number] Diprivan 1,000 mg In 100 ml @ 5 100 / 100 200 / 200 MCG/KG/MIN 3.345 mls/hr IVC . Q24H [facility] Rx#:[id number] Ofirmev 1,000 mg/100 ml 1,000 100 / 100 mg In 100 ml @ 400 mls/hr IVPB Q6HR PRN Rx#:[id number] Zovirax 750 MG In Dextrose 5% 265 / 265 250 ML @ 265 mls/hr IVPB Q12H [facility] Rx#:[id number] Zosyn 3.375 GM In 0.9 % Sodium 100 / 100 100 / 100 Chloride (Mini-Bag +) 100 ML @ 25 mls/hr IVPB Q8HR [facility] Rx#: [id number] Tube Feeding 160 / 160 Free Water Intake Amount 800 / 800 Output: Catheter 775 / 775 1650 / 1650 Gastric Drainage 450 / 450 0 / 0 Other: Weight 108.6 kg Blood Glucose* 184 204 - Lab 07/05/18 04:00 07/05/18 04:00 Most recent lab results ABG pH 7.35 pH Units (7.32-7.45) 07/04/18 04:39 ABG pCO2 55 mmHg (35-45) H 07/04/18 04:39 ABG pO2 75 mmHg (85-104) L 07/04/18 04:39 ABG HCO3 30 mEq/L (21-27) H 07/04/18 04:39 ABG O2 Saturation 94 % (95-98) L 07/04/18 04:39 Calcium 8.5 mg/dL (8.6-10.3) L 07/05/18 04:00 Phosphorus 5.9 mg/dL (2.7-4.5) H 07/05/18 04:00 Magnesium 1.7 mg/dL (1.6-2.6) 07/05/18 04:00 Urine Creatinine 31 mg/dL 06/30/18 09:34 Urine Sodium 40.6 mEq/L 06/30/18 09:34 Urine Total Protein 52 mg/dL (1-14) H 06/30/18 09:34 - VTE Documentation of Mechanical Device: Intermittent pneumatic compression device Consult Discharge Plan - Plan Referrals: Sheryl Stahl CNP [Primary Care Provider] -
[2018-07-05] MEDS: Meropenem 500 MG in 0.9 % Sodium Chloride Mini Bag 100 ML IVPB SCH ×2 (11:27→22:12)
[2018-07-05] MEDS: Potassium Chloride Elixir 20 MEQ/15 ML UDC PO SCH (12:06)
[2018-07-05] MEDS ORDERED: 0.9 % Sodium Chloride 250 ML IVC PRN (14:52)
[2018-07-05] MEDS ORDERED: *HR* Heparin 10,000 UNIT/10 ML VIAL IV PRN (15:04)
[2018-07-05] MEDS ORDERED: 0.9 % Sodium Chloride 1,000 ML PRIME SCH (15:15)
[2018-07-05] MEDS: Scopolamine Patch 1.5 MG PATCH.TD72 TD SCH (16:29)
[2018-07-05] MEDS ORDERED: Meropenem 500 MG in 0.9 % Sodium Chloride Mini Bag 100 ML IVPB SCH (18:00)
[2018-07-05] MEDS: D5% in Water 1,000 ML IVC SCH ×2 (19:06→19:18)
[2018-07-05] MEDS: Acetaminophen IV 1,000 MG/100 ML INFUS..BTL IVPB PRN (20:23)
[2018-07-06] MEDS: Dexmedetomidine HCl 400 MCG/100 ML MLS IVC SCH ×4 (00:54→21:33)
[2018-07-06] MEDS: Insulin LISPRO 300 UNITS/3 ML VIAL SQ SCH ×6 (03:59→23:51)
[2018-07-06] MEDS: Artificial Tears SOLN 15 ML BOTTLE BOTH EYES SCH ×6 (03:59→23:50)
[2018-07-06 04:12] LABS: Basophils # 0.1 K/mcL (0.0-0.2); Basophils % 0.8 %; Eosinophils # 0.4 K/mcL (0.0-0.6); Hematocrit 25.7 % (37.5-50.1); Immature Granulocytes % 0.6 % (0-4); Lymphocytes # 1.8 K/mcL (0.6-4.6); Lymphocytes % 16.9 %; Mean Corpuscular HGB Conc 31.1 g/dL (31.6-35.5); Mean Corpuscular Hemoglobin 31.7 pg (28.0-33.3); Mean Platelet Volume 12.2 fL (9.4-12.4); Monocytes # 0.8 K/mcL (0.0-1.3); Monocytes % 7.2 %; Neutrophils # 7.4 K/mcL (1.6-8.9); Platelet Count 118 K/mcL (140-400); Red Blood Count 2.52 M/mcL (4.19-5.50); Red Cell Distribution Width 16.2 % (11.5-14.5); Segmented Neutrophils % 70.5 %
[2018-07-06 04:18] LABS: INR 1.3; Prothrombin Time 15.1 Seconds (9.4-12.1)
[2018-07-06 04:27] LABS: Albumin 2.6 g/dL (3.5-5.7); Albumin/Globulin Ratio 0.7 (1.1-2.2); Bilirubin,Total 0.6 mg/dL (0.3-1.0); Calcium 8.6 mg/dL (8.6-10.3); Globulin 3.7 g/dL (2.4-3.5); Magnesium 1.7 mg/dL (1.6-2.6); Phosphorous 5.7 mg/dL (2.7-4.5); Potassium 3.4 mEq/L (3.5-5.1); Total Protein 6.3 g/dL (6.4-8.9)
[2018-07-06 05:02] LABS: ABG Base Excess 4 mEq/L (-2 to 3); ABG HCO3 31 mEq/L (21-27); ABG Oxygen Saturation 95 % (95-98); ABG PCO2 59 mmHg (35-45); ABG PH 7.32 pH Units (7.32-7.45); ABG PO2 82 mmHg (85-104); ABG TCO2 32 mEq/L (20-26); Blood Gas Modality PRVC; Blood Gas PEEP 10 cm H2O; Blood Gas Respiration Rate 16; Blood Gas VT 460 cc
[2018-07-06] MEDS: *HR* Heparin 5,000 UNIT/ML VIAL SQ SCH ×2 (05:05→16:38)
--- NOTE | 2018-07-06 06:43 | Pulmonology Progress Note ---
Date of Encounter: 07/06/18 Time of Encounter: 06:43 Assessment and Plan (1) Septic shock Current Visit: Yes Status: Acute Several suspected infections with clear evidence of Escherichia coli urinary tract infection, suspected hospital associated pneumonia, and karo fungemia Continue norepinephrine pressor support to maintain MAP > 65 Repeat blood cultures collected 07/04/18, results pending Continue broad-spectrum antimicrobials Continue Nystatin per ID recommendations Given complexity of his antibiotics recommend reconsulting infectious disease for further recommendations (2) Acute respiratory failure with hypoxia and hypercapnia Current Visit: Yes Status: Acute Patient was extubated on 07/01/18 but had to be reintubated 07/02/18 due to respiratory distress and worsening encephalopathy. Acceptable gas exchange, continue low tidal volume high PEEP strategy for lung recruitment. No clear pattern c/w ARDS. Continue to closely monitor respiratory status. CT chest pending (3) Healthcare-associated pneumonia Current Visit: Yes Status: Acute Patient had more sputum production from the endotracheal tube, Tmax 101.7, and chest x-ray consistent with hospital associated pneumonia CT chest pending Sputum culture pending Blood cultures pending Patient initially on Rocephin for UTI, coverage broadened to Vancomycin and Zosyn 07/04/18, switch to Merrem 07/05/18 Continue vancomycin (day 2), Merrem (day 1) Continue bronchodilators Aspiration precautions Continue close monitoring (4) UTI (urinary tract infection) Current Visit: Yes Status: Acute Urine culture from 07/01/18 grew Escherichia coli Rocephin initially given, then antibiotic coverage broadened to Vancomycin and Zosyn 07/04/18, discontinued Zosyn and started Merrem 07/05/18 CT abdomen/ pelvis pending Qualifiers: Urinary tract infection type: site unspecified Hematuria presence: without hematuria Qualified Code(s): N39.0 - Urinary tract infection, site not specified (5) LUCILA (acute kidney injury) Current Visit: Yes Status: Acute Serum creatinine slightly increased since starting patient on Vancomycin and Zosyn, Zosyn was switched to Merrem Continue free water christianity Urine output remains acceptable Appreciate nephrology recommendations, may consider resuming intermittent dialysis as needed (6) HSV (herpes simplex virus) infection Current Visit: Yes Status: Acute Acyclovir stopped 07/02/18 however, discovered new oral herpetic lesions on exam consistent with HSV, Acyclovir restarted 07/04/18 PCR positive for HSV1 Appreciate infectious disease recommendations (7) Encephalopathy Current Visit: Yes Status: Acute Neuro following, encephalopathy likely from toxic metabolic causes. Patient had unsuccessful lumbar puncture attempt under fluoroscopic guidance Fluconazole stopped 07/03/18, acyclovir stopped on 06/01/18 and restarted 06/03/18 Continue close monitoring (8) Acute on chronic systolic CHF (congestive heart failure) Current Visit: Yes Status: Acute Echo 06/17/18 reveals LV systolic function severely reduced, mild LV diastolic dysfunction, mild tricuspid regurgitation, no pulmonary hypertension CXR with pulmonary vascular congestion, pleural effusions Elevated BNP 108 Resume beta dario and CHRISTIN inhibitor once hypotension and LUCILA resolves Consider spironolactone once clinical condition improves (9) COPD (chronic obstructive pulmonary disease) Current Visit: Yes Status: Chronic Patient was extubated and placed on bipap on 07/01/18, then reintubated 07/02/18 due to respiratory distress and worsening encephalopathy. Continue bronchodilators No indication for steroids at this time Perform ABG when necessary Continue to monitor Qualifiers: COPD type: emphysema Emphysema type: unspecified Qualified Code(s): J43.9 - Emphysema, unspecified (10) Type 2 diabetes mellitus Current Visit: Yes Status: Chronic Hemoglobin A1c 7.9 on 12/30/17 Continue medium dose SSI Continue Accu-Cheks Qualifiers: Diabetes mellitus maintenance man insulin use: with maintenance man use Diabetes mellitus complication status: with unspecified complications Qualified Code(s) : E11.8 - Type 2 diabetes mellitus with unspecified complications; 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 (11) Hypernatremia Current Visit: Yes Status: Acute Hypernatremia stable with free water christianity Continue gentle hydration as tolerated Appreciate nephrology recommendations Continue monitoring (12) Hypocalcemia Current Visit: Yes Status: Acute Calcium supplemented Continue monitoring (13) Hypokalemia Current Visit: Yes Status: Resolved Resolved Continue potassium supplementation Continue monitoring (14) Thrombocytopenia Current Visit: Yes Status: Resolved Resolved Continue monitoring (15) Constipation Current Visit: Yes Status: Acute Senna plus changed to scheduled dosing Continue close monitoring Qualifiers: Constipation type: unspecified constipation type Qualified Code(s): K59.00 - Constipation, unspecified (16) Obesity (BMI 30.0-34.9) Current Visit: Yes Status: Acute BMI 32.5, Continue TPN (17) DVT prophylaxis Current Visit: Yes Status: Acute Heparin subcutaneous TID Subjective Principal diagnosis: septic shock Interval history: Patient seen and examined resting comfortably in bed. He is now off sedation and remains intubated. Patient had Tmax 101.[address] scan chest and abdomen pelvis were ordered. He has not had a bowel movement since we resumed scheduled dosing of senna plus. Patient continues to have good urine output. His serum creatinine has slightly increased after starting Vancomycin and Zosyn yesterday. Objective PUL Vital signs: Last Vital Signs Temp 100.1 F H 07/06/18 04:00 Pulse 115 07/06/18 06:00 Resp 16 07/06/18 06:00 BP 115/61 07/06/18 06:00 Pulse Ox 96 07/06/18 06:00 Ventilator Settings Ventilator Settings: Ventilator Settings, Last 8 Hours Ventilator Tidal Volume 460 Setting Ventilator Tidal Volume 460 Setting Ventilator Tidal Volume 460 Setting Ventilator Tidal Volume 460 Setting Ventilator Tidal Volume 460 Setting Ventilator Tidal Volume 460 Setting Ventilator Tidal Volume 460 Setting Ventilator Tidal Volume 460 Setting Ventilator Tidal Volume 460 Setting Ventilator Tidal Volume 460 Setting Ventilator Tidal Volume 460 Setting Ventilator Tidal Volume 460 Setting Ventilator Respiratory Rate 16 Setting Ventilator Respiratory Rate 16 Setting Ventilator Respiratory Rate 16 Setting Ventilator Respiratory Rate 16 Setting Ventilator Respiratory Rate 16 Setting Ventilator Respiratory Rate 16 Setting Ventilator Respiratory Rate 16 Setting Ventilator Respiratory Rate 16 Setting Ventilator Respiratory Rate 16 Setting Ventilator Respiratory Rate 16 Setting Ventilator Respiratory Rate 16 Setting Ventilator Respiratory Rate 16 Setting Actual Respiratory Rate 16 Actual Respiratory Rate 16 Actual Respiratory Rate 16 Actual Respiratory Rate 16 Actual Respiratory Rate 16 Actual Respiratory Rate 16 Actual Respiratory Rate 19 Actual Respiratory Rate 22 Actual Respiratory Rate 16 Actual Respiratory Rate 17 Actual Respiratory Rate 16 Positive End Expiratory 10 Pressure Positive End Expiratory 10 Pressure Positive End Expiratory 10 Pressure Positive End Expiratory 10 Pressure Positive End Expiratory 10 Pressure Positive End Expiratory 10 Pressure Positive End Expiratory 10 Pressure Positive End Expiratory 10 Pressure Positive End Expiratory 10 Pressure Positive End Expiratory 10 Pressure Positive End Expiratory 10 Pressure Positive End Expiratory 10 Pressure Peak Inspiratory Airway 28 Pressure Peak Inspiratory Airway 28 Pressure Peak Inspiratory Airway 28 Pressure Peak Inspiratory Airway 31 Pressure Peak Inspiratory Airway 28 Pressure Peak Inspiratory Airway 27 Pressure Peak Inspiratory Airway 29 Pressure Peak Inspiratory Airway 28 Pressure Peak Inspiratory Airway 27 Pressure Peak Inspiratory Airway 31 Pressure Peak Inspiratory Airway 29 Pressure Results - Laboratory Findings CBC and BMP: 07/06/18 04:00 07/06/18 04:00 ABG ABG pH 7.32 pH Units (7.32-7.45) 07/06/18 05:00 ABG pCO2 59 mmHg (35-45) H 07/06/18 05:00 ABG pO2 82 mmHg (85-104) L 07/06/18 05:00 ABG O2 Saturation 95 % (95-98) 07/06/18 05:00 PT/INR, D-dimer PT 15.1 Seconds (9.4-12.1) H 07/06/18 04:00 D-Dimer 3465 ng/mLFEU (0-500) H 06/18/18 08:08 Abnormal lab findings: Abnormal lab results RBC 2.52 M/mcL (4.19-5.50) L 07/06/18 04:00 Hgb 8.0 g/dL (12.9-16.9) L 07/06/18 04:00 Hct 25.7 % (37.5-50.1) L 07/06/18 04:00 MCV 102.0 fL (83.0-100.0) H 07/06/18 04:00 MCHC 31.1 g/dL (31.6-35.5) L 07/06/18 04:00 RDW 16.2 % (11.5-14.5) H 07/06/18 04:00 Plt Count 118 K/mcL (140-400) L 07/06/18 04:00 Band Neutrophils % 6.0 % (0-4) H 06/27/18 03:00 Metamyelocytes % 2.0 % (0) H 06/27/18 03:00 Myelocytes % 6.0 % (0) H 06/27/18 03:00 Nucleated RBCs/100 WBC 0.1 /100 WBC (0) H 06/28/18 03:30 Reactive Lymphocytes Present (Not Present) A 07/01/18 03:00 Toxic Granulation Present (Not Present) A 06/18/18 03:05 Toxic Vacuolation Present (Not Present) A 06/22/18 03:45 Large Platelets Present (Not Present) A 06/23/18 03:15 Polychromasia 1+ (Not Present) A 06/27/18 03:00 Basophilic Stippling 1+ (Not Present) A 06/26/18 04:00 Anisocytosis 1+ (Not Present) A 06/28/18 03:30 Macrocytosis Present (Not Present) A 06/26/18 04:00 PT 15.1 Seconds (9.4-12.1) H 07/06/18 04:00 APTT 62.8 Seconds (26.0-36.0) H 06/23/18 08:00 Fibrinogen 578 mg/dL (169-393) H 06/18/18 08:08 D-Dimer 3465 ng/mLFEU (0-500) H 06/18/18 08:08 ABG pCO2 59 mmHg (35-45) H 07/06/18 05:00 ABG pO2 82 mmHg (85-104) L 07/06/18 05:00 ABG HCO3 31 mEq/L (21-27) H 07/06/18 05:00 ABG Total CO2 32 mEq/L (20-26) H 07/06/18 05:00 ABG Base Excess 4 mEq/L (-2 to 3) H 07/06/18 05:00 Sodium 147 mEq/L (136-145) H 07/06/18 04:00 Potassium 3.4 mEq/L (3.5-5.1) L 07/06/18 04:00 Chloride 111 mEq/L (98-107) H 07/06/18 04:00 Carbon Dioxide 30 mEq/L (23-29) H 07/06/18 04:00 BUN 29 mg/dL (6-20) H 07/06/18 04:00 Creatinine 2.83 mg/dL (0.70-1.30) H 07/06/18 04:00 Est GFR ( Amer) 29 (> 60) L 07/06/18 04:00 Est GFR (Non-Af Amer) 24 (> 60) L 07/06/18 04:00 Glucose 207 mg/dL (70-105) H 07/06/18 04:00 POC Glucose 197 mg/dL (70-99) H 07/06/18 03:58 Serum Osmolality 327 mOsm/kg (280-300) H 07/01/18 09:48 Calculated Osmolality 316 (280-300) H 07/06/18 04:00 Venous Ioniz Calcium 1.13 mmol/L (1.15-1.35) L 07/01/18 03:39 Phosphorus 5.7 mg/dL (2.7-4.5) H 07/06/18 04:00 Iron < 10 mcg/dL (65-175) L 07/01/18 03:00 Transferrin 146 mg/dL (203-362) L 07/01/18 03:00 Ferritin 647 ng/mL (20-250) H 07/01/18 03:00 Direct Bilirubin 0.4 mg/dL (0.0-0.2) H 06/23/18 03:15 Troponin I 0.92 ng/mL (< 0.04) H* 06/17/18 22:33 Serum Total Protein 6.3 g/dL (6.4-8.9) L 07/06/18 04:00 Albumin 2.6 g/dL (3.5-5.7) L 07/06/18 04:00 Globulin 3.7 g/dL (2.4-3.5) H 07/06/18 04:00 Albumin/Globulin Ratio 0.7 (1.1-2.2) L 07/06/18 04:00 Amylase 20 Units/L (29-103) L 06/23/18 16:27 Folate 2.5 ng/mL (3.0-16.0) L 06/27/18 11:25 Procalcitonin 107.11 ng/mL (<=0.07) H 06/17/18 16:40 TSH 7.234 mcIU/mL (0.340-5.600) H 06/27/18 11:25 Ur Specific Grandin < 1.005 (1.010-1.025) L 06/30/18 09:34 Urine Blood Moderate (Negative) H 06/30/18 09:34 Ur Leukocyte Esterase Moderate (Negative) H 06/30/18 09:34 Urine Microscopic RBC 3-5 per hpf (0-3) H 06/30/18 09:34 Urine Microscopic WBC 50-100 per hpf (0-3) H 06/30/18 09:34 Urine Bacteria Many per hpf (None-Few) H 06/30/18 09:34 Urine Osmolality 200 mOsm/kg (300-1090) L 06/30/18 09:33 Protein/Creatinin Ratio 1.68 mg/mg (0.00-0.20) H 06/30/18 09:34 Urine Total Protein 52 mg/dL (1-14) H 06/30/18 09:34 Vancomycin Trough 19 mcg/mL (5-10) H 07/05/18 04:00 Urine Opiates Screen Positive ng/mL (Sdlkvs=749) H 06/18/18 10:37 U Benzodiazepines Scrn Positive ng/mL (Xuxlnp=306) H 06/18/18 10:37 HSV I DETECTED (Not Detect) A 06/24/18 15:10 - Microbiology Findings Microbiology Findings: Microbiology, Last 48 Hours 07/04/18 07:38 Sputum Culture - Final Aspirate Acinetobacter baumannii complx 07/04/18 11:59 Blood Culture - Preliminary Peripheral Venipuncture Culture is incubating and being continuously monitored for growth. Final report to follow. 07/04/18 10:34 Blood Culture - Preliminary Peripheral Venipuncture Culture is incubating and being continuously monitored for growth. Final report to follow. - Clinical Findings Intake & Output: Intake & Output 07/05/18 07/05/18 07/06/18 15:59 23:59 07:59 Intake Total 920 / 920 1858 / 1858 438 / 438 Output Total 2150 / 2150 3491 / 3491 700 / 700 Balance -1230 / -1230 -1633 / -1633 -262 / -262 - VTE Documentation of Mechanical Device: Intermittent pneumatic compression device Consult Discharge Plan - Plan Referrals: Sheryl Stahl, MAGALI [Primary Care Provider] -
[2018-07-06] MEDS ORDERED: Sennosides/Docusate Sodium TABLET PO PRN (09:20)
[2018-07-06] MEDS: Chlorhexidine Rinse 15 ML MOUTHWASH MM SCH ×2 (09:59→20:02)
[2018-07-06] MEDS: Pantoprazole 40 MG VIAL IVP SCH (10:00)
[2018-07-06] MEDS: Meropenem 500 MG in 0.9 % Sodium Chloride Mini Bag 100 ML IVPB SCH ×2 (10:00→22:50)
[2018-07-06] MEDS: Nystatin SUSP 5 ML UD.LIQ PO SCH ×4 (10:00→20:02)
[2018-07-06] MEDS: Potassium Chloride Elixir 20 MEQ/15 ML UDC PO SCH (10:08)
[2018-07-06] MEDS: Acyclovir 750 MG in D5% in Water 250 ML IVPB SCH ×2 (10:11→20:02)
[2018-07-06] MEDS ORDERED: Aminoglycoside Consult 1 EACH MC ONE (10:30)
[2018-07-06] MEDS: D5% in Water 1,000 ML IVC SCH ×2 (12:55→23:50)
--- NOTE | 2018-07-06 14:33 | Nephrology Progress Note ---
Date of Encounter: 07/06/18 Time of Encounter: 14:35 - Assessment and Plan (1) LUCILA (acute kidney injury) Current Visit: Yes Status: Acute SCr slightly improved after HD yesterday, will monitor and reassess HD need daily UOP very good in the past 24hrs approx. 4liters Continue to avoid nephrotoxins if possible Family needs to establish nursing home goals of care (2) Acute respiratory failure with hypoxemia Current Visit: Yes Status: Acute Per critical acre team (3) Anemia Current Visit: Yes Status: Chronic Hgb noted at 8.0, will monitor Qualifiers: Anemia type: iron deficiency Iron deficiency anemia type: unspecified iron deficiency Qualified Code(s): D50.9 - Iron deficiency anemia, unspecified (4) Hypernatremia Current Visit: Yes Status: Acute Improving at 147, continue water flushes via OGT q4hrs 400cc Subjective Principal diagnosis: septic shock Interval history: Interim noted with pt seen and examined and remains intubated/sedated. s/p HD yesterday terminated alittle early due o hemodynamic instability Objective - Vital Signs Vital signs: Vital Signs Temp Pulse Resp BP Pulse Ox 07/06/18 13:14 126 07/06/18 13:00 126 22 141/80 94 07/06/18 12:00 123 22 109/69 93 07/06/18 11:14 16 109/55 93 07/06/18 11:00 118 22 109/55 95 07/06/18 10:00 111 20 124/62 93 07/06/18 09:28 106 07/06/18 09:05 16 113/61 93 07/06/18 09:00 115 19 124/62 94 07/06/18 08:00 112 17 124/70 93 07/06/18 07:35 21 138/76 95 07/06/18 07:00 100 16 129/66 97 07/06/18 06:00 115 16 115/61 96 07/06/18 05:00 69 16 113/61 97 07/06/18 04:00 100.1 F H 115 16 115/61 96 07/06/18 03:44 17 113/59 96 07/06/18 03:00 74 16 110/59 97 07/06/18 02:00 79 16 115/60 96 07/06/18 01:34 21 114/59 93 07/06/18 01:00 109 24 94/46 94 07/06/18 00:00 101 F H 115 16 115/61 96 07/05/18 23:22 16 99/53 100 07/05/18 23:00 82 16 94/45 97 07/05/18 22:00 82 16 96/48 97 07/05/18 21:31 16 88/47 96 07/05/18 21:00 98 16 110/62 97 07/05/18 20:00 101.7 F H 92 16 96/52 96 07/05/18 19:50 16 91/46 96 07/05/18 19:07 100.8 F H 28 87/49 07/05/18 19:00 101 18 91/47 94 07/05/18 18:50 79/47 07/05/18 18:40 89/52 07/05/18 18:30 156/101 07/05/18 18:15 135/76 07/05/18 18:00 115 16 115/61 96 07/05/18 17:45 128/63 07/05/18 17:30 120/58 07/05/18 17:15 133/73 07/05/18 17:04 16 133/73 95 07/05/18 17:00 112 19 130/63 95 07/05/18 16:45 134/64 07/05/18 16:30 122/63 07/05/18 16:15 101/56 07/05/18 16:00 101.4 F H 105 22 117/55 93 07/05/18 15:41 101.4 F H 07/05/18 15:03 23 136/88 95 07/05/18 15:00 140 23 136/88 95 Intake and Output 07/05/18 07/06/18 07/06/18 23:59 07:59 15:59 Intake Total 1858 / 1858 438 / 438 765 / 765 Output Total 3491 / 3491 700 / 700 1800 / 1800 Balance -1633 / -1633 -262 / -262 -1035 / -1035 Intake: IV Fluids 615 / 615 200 / 200 365 / 365 PRECEDEX Premix 400 mcg In 100 100 / 100 200 / 200 ml @ 0.2 MCG/KG/HR 5.45 mls/hr IVC .[id number] [facility] Rx#:[id number] FentaNYL (PF) 2,500 MCG In 50 / 50 Empty Bag 1 Each @ 50 MCG/HR 1 mls/hr IVC CONT [facility] Rx#: [id number] Ofirmev 1,000 mg/100 ml 1,000 100 / 100 mg In 100 ml @ 400 mls/hr IVPB Q6HR PRN Rx#:[id number] Zovirax 750 MG In Dextrose 5% 265 / 265 265 / 265 250 ML @ 265 mls/hr IVPB Q12H [facility] Rx#:[id number] Merrem 500 MG In 0.9 % Sodium 100 / 100 100 / 100 Chloride (Mini-Bag +) 100 ML @ 200 mls/hr IVPB Q12H [facility] Rx#: [id number] Oral 0 / 0 0 / 0 Tube Feeding 243 / 243 238 / 238 Intake, Rinseback and Flushes 600 / 600 Free Water Intake Amount 400 / 400 400 / 400 Output: Urine 0 / 0 Total Dialysis (HD) Output 2866 / 2866 Catheter 625 / 625 350 / 350 1800 / 1800 Gastric Drainage 350 / 350 Other: Stool Size Large Stool Consistency liquid soft Stool Color Brown # Bowel Movements 2 Blood Glucose* 187 197 179 Hemodialysis Net Fluid Removed 2266 (mL) - General Appearance General appearance: Present: sedated on ventilator, intubated EENT: Present: ATNC, mucous membranes moist Neck: Present: no JVD, supple Additional Comments: decreased BS bilat ant Cardiology: Present: no edema, normal S1, normal S2 Gastrointestinal: Present: no tenderness, no guarding Integumentary: Present: warm and dry Additional Comments: sedated Musculoskeletal: Present: no deformities Additional Comments: sedated - Lab 07/06/18 04:00 07/06/18 15:54 Most recent lab results ABG pH 7.32 pH Units (7.32-7.45) 07/06/18 05:00 ABG pCO2 59 mmHg (35-45) H 07/06/18 05:00 ABG pO2 82 mmHg (85-104) L 07/06/18 05:00 ABG HCO3 31 mEq/L (21-27) H 07/06/18 05:00 ABG O2 Saturation 95 % (95-98) 07/06/18 05:00 Calcium 8.6 mg/dL (8.6-10.3) 07/06/18 04:00 Phosphorus 5.7 mg/dL (2.7-4.5) H 07/06/18 04:00 Magnesium 1.7 mg/dL (1.6-2.6) 07/06/18 04:00 Urine Creatinine 31 mg/dL 06/30/18 09:34 Urine Sodium 40.6 mEq/L 06/30/18 09:34 Urine Total Protein 52 mg/dL (1-14) H 06/30/18 09:34 - VTE Documentation of Mechanical Device: Intermittent pneumatic compression device Consult Discharge Plan - Plan Referrals: Sheryl Stahl, FURNACE OPERATOR [Primary Care Provider] -
[2018-07-06 16:23] LABS: Calcium 8.9 mg/dL (8.6-10.3); Potassium 3.6 mEq/L (3.5-5.1)
[2018-07-06] MEDS: FentaNYL (PF) 2,500 MCG in EMPTY BAG 1 EACH IVC SCH (22:53)
[2018-07-07] MEDS: Dexmedetomidine HCl 400 MCG/100 ML MLS IVC SCH ×4 (03:05→20:35)
[2018-07-07] MEDS: Artificial Tears SOLN 15 ML BOTTLE BOTH EYES SCH ×6 (03:05→23:43)
[2018-07-07] MEDS: Insulin LISPRO 300 UNITS/3 ML VIAL SQ SCH ×6 (04:12→23:43)
[2018-07-07 04:50] LABS: Hematocrit 24.1 % (37.5-50.1); Hemoglobin 7.4 g/dL (12.9-16.9); Mean Corpuscular HGB Conc 30.7 g/dL (31.6-35.5); Mean Corpuscular Hemoglobin 31.5 pg (28.0-33.3); Mean Corpuscular Volume 102.6 fL (83.0-100.0); Platelet Count 128 K/mcL (140-400); Red Blood Count 2.35 M/mcL (4.19-5.50); Red Cell Distribution Width 15.7 % (11.5-14.5)
[2018-07-07 04:53] LABS: ABG Base Excess 6 mEq/L (-2 to 3); ABG HCO3 33 mEq/L (21-27); ABG Oxygen Saturation 94 % (95-98); ABG PCO2 65 mmHg (35-45); ABG PH 7.32 pH Units (7.32-7.45); ABG PO2 77 mmHg (85-104); ABG TCO2 35 mEq/L (20-26); Blood Gas Modality PRVC; Blood Gas PEEP 10 cm H2O; Blood Gas Respiration Rate 16; Blood Gas VT 460 cc
[2018-07-07] MEDS: FentaNYL (PF) 2,500 MCG in EMPTY BAG 1 EACH IVC SCH ×2 (04:58→19:53)
[2018-07-07 05:10] LABS: Calcium 8.7 mg/dL (8.6-10.3); Magnesium 1.7 mg/dL (1.6-2.6); Potassium 3.2 mEq/L (3.5-5.1)
[2018-07-07] MEDS: *HR* Heparin 5,000 UNIT/ML VIAL SQ SCH ×2 (06:10→18:00)
[2018-07-07] MEDS: Pantoprazole 40 MG VIAL IVP SCH (08:59)
[2018-07-07] MEDS: Nystatin SUSP 5 ML UD.LIQ PO SCH ×4 (08:59→19:50)
[2018-07-07] MEDS: Chlorhexidine Rinse 15 ML MOUTHWASH MM SCH ×2 (08:59→19:50)
[2018-07-07] MEDS: Potassium Chloride Elixir 20 MEQ/15 ML UDC PO SCH (08:59)
[2018-07-07] MEDS: D5% in Water 1,000 ML IVC SCH ×2 (09:00→23:43)
--- NOTE | 2018-07-07 09:11 | Pulmonology Progress Note ---
<Bonnie Cummins E - Last Filed: 07/07/18 11:11> Date of Encounter: 07/07/18 Time of Encounter: 09:09 Assessment and Plan (1) Septic shock Current Visit: Yes Status: Acute sepsis suspected secondary to karo fungemia. MAP this morning 97. Acyclovir restarted 07/04/18 to to new lesion on right upper lip/nasolabial fold area and continued encephalopathy. Urine shows e.coli on urine culture from . Miropenem for acinitobacter positive sputum culture. (2) Acute respiratory failure with hypoxemia Current Visit: Yes Status: Acute Patient was extubated on 07/01/18 and put on Bipap, had to be reintubated 07/02/18 due to increased respiratory work, respiratory distress, and worsening encephalopathy. Will continue to monitor respiratory status. O2 decreased to 50% , goal for today is 40% on vent. (3) Pneumonia Current Visit: Yes Status: Suspected Pneumonia suspected to do Temperature increase, heart rate increase, worsening breath sounds on exam, and possibly worsened CXR as compared to yesterday. Patient on meropenem Sputum culture positive for acinitobacter Qualifiers: Pneumonia type: due to unspecified organism Laterality: bilateral Lung location: lower lobe of lung Qualified Code(s): J18.1 - Lobar pneumonia, unspecified organism (4) Oral lesion Current Visit: Yes Status: Acute Noted on tongue PCR positive for HSV1 Acyclovir stopped 07/02/18 new lesion noted on exam 07/04/18 above right lip in naso/labial fold area Acyclovir restarted 07/04/18 (5) COPD (chronic obstructive pulmonary disease) Current Visit: Yes Status: Chronic Patient extubated and on bipap on 07/01/18, reintubated 07/02/18 due to increased work of respiration, respiratory distress, and worsening encephalopathy. Continue to monitor Qualifiers: COPD type: emphysema Emphysema type: unspecified Qualified Code(s): J43.9 - Emphysema, unspecified (6) LUCILA (acute kidney injury) Current Visit: Yes Status: Acute Nephrology following. Patient on intermittent dialysis. Hypernatreima with free water deficit possibly due to polyuric phase of renal recovery, will continue to monitor Urine output yesterday 203 mls/hr started on d5% dextrose 50mls/hour Continue to monitor (7) Hypocalcemia Current Visit: Yes Status: Acute Continue to monitor. Calcium today at 8.7. Replace if necessary (8) Hypernatremia Current Visit: Yes Status: Acute Nephrology on board Possibly due to polyuric phase of renal recovery D5% 50mls/hr Continue sodium checks and monitoring neurologic status (9) Hypokalemia Current Visit: Yes Status: Resolved K+ 3.2 today. HAS been given 40 units Potassium Chloride elixor. Continue to monitor and replace as necessary (10) Encephalopathy Current Visit: Yes Status: Acute Neuro on board, believed to be from toxic metabolic causes. Fluconazole stopped 07/03/18, acyclovir stopped on 06/01/19 Acyclovir restarted 07/04/18 after exam showed new lesion above right upper lip in nasolabial fold area. (11) Thrombocytopenia Current Visit: Yes Status: Resolved Platelets 128. Continue to monitor. 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 No heparin was in use in the lines which could have caused the excessive clotting on dialysis filter. Also, platelet count could have been decreased do to septic shock. 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 insulin use: with [facility] use Diabetes mellitus complication status: with unspecified complications Qualified Code(s) : E11.8 - Type 2 diabetes mellitus with unspecified complications; Z79.4 - assisted (current) use of insulin (14) UTI (urinary tract infection) Current Visit: Yes Status: Acute Urine culture from 07/01/18 grew gram negative brook Currently on miropenem Qualifiers: Urinary tract infection type: site unspecified Hematuria presence: without hematuria Qualified Code(s): N39.0 - Urinary tract infection, site not specified (15) DVT prophylaxis Current Visit: Yes Status: Acute ECPDs Heparin 5000 units sub q Subjective Principal diagnosis: septic shock Interval history: Mr. Mccarthy was seen at bedside this morning. He was reintubated 07/01/18. Creatinine 2.74, nephrology following and will be doing intermediate dialysis. WBC count decreased from yesterday. ABGs show pH 7.32, pCO2 65, pO2 77, O2 sat 94%. Restarted heprin for DVT prophylaxis 06/30/18. Currently on miropenem. Acyclovir restarted 07/04/18 due to new lesion noted on the right upper lip/ nasolabial fold area. Patient is easily awaken, does follow some commands. Objective PUL Vital signs: Last Vital Signs Temp 97.6 F 07/07/18 08:00 Pulse 89 07/07/18 08:38 Resp 18 07/07/18 08:00 BP 136/78 07/07/18 08:00 Pulse Ox 96 07/07/18 08:00 General appearance: other (ventilated not sedated, follows some commands) Eyes: injected ENT: oropharynx dry Neck: no lymphadenopathy Effort: normal Auscultation: bilateral: diminished breath sounds Cardiovascular: regular rate and rhythm Gastrointestinal: hypoactive bowel sounds, non-tender, non-distended Extremities: no cyanosis, no clubbing, edema (1+) Ventilator Settings Ventilator Settings: Ventilator Settings, Last 8 Hours Ventilator Tidal Volume 460 Setting Ventilator Tidal Volume 460 Setting Ventilator Tidal Volume 460 Setting Ventilator Tidal Volume 460 Setting Ventilator Tidal Volume 460 Setting Ventilator Tidal Volume 460 Setting Ventilator Tidal Volume 460 Setting Ventilator Tidal Volume 460 Setting Ventilator Tidal Volume 460 Setting Ventilator Tidal Volume 460 Setting Ventilator Respiratory Rate 16 Setting Ventilator Respiratory Rate 16 Setting Ventilator Respiratory Rate 16 Setting Ventilator Respiratory Rate 16 Setting Ventilator Respiratory Rate 16 Setting Ventilator Respiratory Rate 16 Setting Ventilator Respiratory Rate 16 Setting Ventilator Respiratory Rate 16 Setting Ventilator Respiratory Rate 16 Setting Ventilator Respiratory Rate 16 Setting Actual Respiratory Rate 16 Actual Respiratory Rate 16 Actual Respiratory Rate 16 Actual Respiratory Rate 16 Actual Respiratory Rate 17 Actual Respiratory Rate 22 Actual Respiratory Rate 21 Actual Respiratory Rate 16 Actual Respiratory Rate 18 Positive End Expiratory 10 Pressure Positive End Expiratory 10 Pressure Positive End Expiratory 10 Pressure Positive End Expiratory 10 Pressure Positive End Expiratory 10 Pressure Positive End Expiratory 10 Pressure Positive End Expiratory 10 Pressure Positive End Expiratory 10 Pressure Positive End Expiratory 10 Pressure Positive End Expiratory 10 Pressure Peak Inspiratory Airway 32 Pressure Peak Inspiratory Airway 32 Pressure Peak Inspiratory Airway 28 Pressure Peak Inspiratory Airway 28 Pressure Peak Inspiratory Airway 27 Pressure Peak Inspiratory Airway 28 Pressure Peak Inspiratory Airway 22 Pressure Peak Inspiratory Airway 28 Pressure Peak Inspiratory Airway 28 Pressure Results - Laboratory Findings CBC and BMP: 07/07/18 04:41 07/07/18 04:41 ABG ABG pH 7.32 pH Units (7.32-7.45) 07/07/18 04:50 ABG pCO2 65 mmHg (35-45) H 07/07/18 04:50 ABG pO2 77 mmHg (85-104) L 07/07/18 04:50 ABG O2 Saturation 94 % (95-98) L 07/07/18 04:50 PT/INR, D-dimer PT 15.1 Seconds (9.4-12.1) H 07/06/18 04:00 D-Dimer 3465 ng/mLFEU (0-500) H 06/18/18 08:08 Abnormal lab findings: Abnormal lab results RBC 2.35 M/mcL (4.19-5.50) L 07/07/18 04:41 Hgb 7.4 g/dL (12.9-16.9) L 07/07/18 04:41 Hct 24.1 % (37.5-50.1) L 07/07/18 04:41 MCV 102.6 fL (83.0-100.0) H 07/07/18 04:41 MCHC 30.7 g/dL (31.6-35.5) L 07/07/18 04:41 RDW 15.7 % (11.5-14.5) H 07/07/18 04:41 Plt Count 128 K/mcL (140-400) L 07/07/18 04:41 Band Neutrophils % 6.0 % (0-4) H 06/27/18 03:00 Metamyelocytes % 2.0 % (0) H 06/27/18 03:00 Myelocytes % 6.0 % (0) H 06/27/18 03:00 Nucleated RBCs/100 WBC 0.1 /100 WBC (0) H 06/28/18 03:30 Reactive Lymphocytes Present (Not Present) A 07/01/18 03:00 Toxic Granulation Present (Not Present) A 06/18/18 03:05 Toxic Vacuolation Present (Not Present) A 06/22/18 03:45 Large Platelets Present (Not Present) A 06/23/18 03:15 Polychromasia 1+ (Not Present) A 06/27/18 03:00 Basophilic Stippling 1+ (Not Present) A 06/26/18 04:00 Anisocytosis 1+ (Not Present) A 06/28/18 03:30 Macrocytosis Present (Not Present) A 06/26/18 04:00 PT 15.1 Seconds (9.4-12.1) H 07/06/18 04:00 APTT 62.8 Seconds (26.0-36.0) H 06/23/18 08:00 Fibrinogen 578 mg/dL (169-393) H 06/18/18 08:08 D-Dimer 3465 ng/mLFEU (0-500) H 06/18/18 08:08 ABG pCO2 65 mmHg (35-45) H 07/07/18 04:50 ABG pO2 77 mmHg (85-104) L 07/07/18 04:50 ABG HCO3 33 mEq/L (21-27) H 07/07/18 04:50 ABG Total CO2 35 mEq/L (20-26) H 07/07/18 04:50 ABG O2 Saturation 94 % (95-98) L 07/07/18 04:50 ABG Base Excess 6 mEq/L (-2 to 3) H 07/07/18 04:50 Sodium 153 mEq/L (136-145) H 07/07/18 04:41 Potassium 3.2 mEq/L (3.5-5.1) L 07/07/18 04:41 Chloride 116 mEq/L (98-107) H 07/07/18 04:41 Carbon Dioxide 31 mEq/L (23-29) H 07/07/18 04:41 BUN 32 mg/dL (6-20) H 07/07/18 04:41 Creatinine 2.74 mg/dL (0.70-1.30) H 07/07/18 04:41 Est GFR ( Amer) 30 (> 60) L 07/07/18 04:41 Est GFR (Non-Af Amer) 24 (> 60) L 07/07/18 04:41 Glucose 260 mg/dL (70-105) H 07/07/18 04:41 POC Glucose 235 mg/dL (70-99) H 07/07/18 08:21 Serum Osmolality 327 mOsm/kg (280-300) H 07/01/18 09:48 Calculated Osmolality 332 (280-300) H 07/07/18 04:41 Venous Ioniz Calcium 1.13 mmol/L (1.15-1.35) L 07/01/18 03:39 Phosphorus 5.0 mg/dL (2.7-4.5) H 07/07/18 04:41 Iron < 10 mcg/dL (65-175) L 07/01/18 03:00 Transferrin 146 mg/dL (203-362) L 07/01/18 03:00 Ferritin 647 ng/mL (20-250) H 07/01/18 03:00 Direct Bilirubin 0.4 mg/dL (0.0-0.2) H 06/23/18 03:15 Troponin I 0.92 ng/mL (< 0.04) H* 06/17/18 22:33 Serum Total Protein 6.3 g/dL (6.4-8.9) L 07/06/18 04:00 Albumin 2.6 g/dL (3.5-5.7) L 07/06/18 04:00 Globulin 3.7 g/dL (2.4-3.5) H 07/06/18 04:00 Albumin/Globulin Ratio 0.7 (1.1-2.2) L 07/06/18 04:00 Amylase 20 Units/L (29-103) L 06/23/18 16:27 Folate 2.5 ng/mL (3.0-16.0) L 06/27/18 11:25 Procalcitonin 107.11 ng/mL (<=0.07) H 06/17/18 16:40 TSH 7.234 mcIU/mL (0.340-5.600) H 06/27/18 11:25 Ur Specific [place] < 1.005 (1.010-1.025) L 06/30/18 09:34 Urine Blood Moderate (Negative) H 06/30/18 09:34 Ur Leukocyte Esterase Moderate (Negative) H 06/30/18 09:34 Urine Microscopic RBC 3-5 per hpf (0-3) H 06/30/18 09:34 Urine Microscopic WBC 50-100 per hpf (0-3) H 06/30/18 09:34 Urine Bacteria Many per hpf (None-Few) H 06/30/18 09:34 Urine Osmolality 200 mOsm/kg (300-1090) L 06/30/18 09:33 Protein/Creatinin Ratio 1.68 mg/mg (0.00-0.20) H 06/30/18 09:34 Urine Total Protein 52 mg/dL (1-14) H 06/30/18 09:34 Vancomycin Trough 19 mcg/mL (5-10) H 07/05/18 04:00 Urine Opiates Screen Positive ng/mL (Mawyud=868) H 06/18/18 10:37 U Benzodiazepines Scrn Positive ng/mL (Agqnvo=788) H 06/18/18 10:37 HSV I DETECTED (Not Detect) A 06/24/18 15:10 - Microbiology Findings Microbiology Findings: Microbiology, Last 48 Hours 07/04/18 07:38 Sputum Culture - Final Aspirate Acinetobacter baumannii complx - Clinical Findings Intake & Output: Intake & Output 07/06/18 07/07/18 07/07/18 23:59 07:59 15:59 Intake Total 2077 / 2077 818 / 818 699 / 699 Output Total 2725 / 2725 850 / 850 1000 / 1000 Balance -648 / -648 -32 / -32 -301 / -301 Weight 110.8 kg - VTE Documentation of Mechanical Device: Intermittent pneumatic compression device Consult Discharge Plan - Plan Referrals: Sheryl Stahl, [facility]ER [Primary Care Provider] - <Ludin Barrett S - Last Filed: 07/07/18 14:25> Date of Encounter: 07/07/18 Assessment and Plan (1) Acute respiratory failure with hypoxemia Current Visit: Yes Status: Acute (2) Septic shock Current Visit: Yes Status: Acute (3) Systolic heart failure Current Visit: Yes Status: Deleted Qualifiers: Heart failure chronicity: acute on chronic Qualified Code(s): I50.23 - Acute on chronic systolic (congestive) heart failure (4) LUCILA (acute kidney injury) Current Visit: Yes Status: Acute (5) DVT prophylaxis Current Visit: Yes Status: Acute (6) Type 2 diabetes mellitus Current Visit: Yes Status: Chronic Qualifiers: Diabetes mellitus [facility] insulin use: with vermin exterminator use Diabetes mellitus complication status: with unspecified complications Qualified Code(s) : E11.8 - Type 2 diabetes mellitus with unspecified complications; Z79.4 - terminal operator (current) use of insulin (7) COPD (chronic obstructive pulmonary disease) Current Visit: Yes Status: Chronic Qualifiers: COPD type: emphysema Emphysema type: unspecified Qualified Code(s): J43.9 - Emphysema, unspecified (8) Thrombocytopenia Current Visit: Yes Status: Resolved Objective PUL Vital signs: Last Vital Signs Temp 97.9 F 07/07/18 12:00 Pulse 114 07/07/18 13:00 Resp 18 07/07/18 13:00 BP 142/83 07/07/18 13:00 Pulse Ox 93 07/07/18 13:00 Ventilator Settings Ventilator Settings: Ventilator Settings, Last 8 Hours Ventilator Tidal Volume 460 Setting Ventilator Tidal Volume 460 Setting Ventilator Tidal Volume 460 Setting Ventilator Tidal Volume 460 Setting Ventilator Respiratory Rate 16 Setting Ventilator Respiratory Rate 16 Setting Ventilator Respiratory Rate 16 Setting Ventilator Respiratory Rate 16 Setting Actual Respiratory Rate 18 Actual Respiratory Rate 17 Actual Respiratory Rate 16 Actual Respiratory Rate 16 Positive End Expiratory 10 Pressure Positive End Expiratory 10 Pressure Positive End Expiratory 10 Pressure Positive End Expiratory 10 Pressure Peak Inspiratory Airway 22 Pressure Peak Inspiratory Airway 30 Pressure Peak Inspiratory Airway 32 Pressure Peak Inspiratory Airway 32 Pressure Results - Laboratory Findings CBC and BMP: 07/07/18 04:41 07/07/18 04:41 ABG ABG pH 7.32 pH Units (7.32-7.45) 07/07/18 04:50 ABG pCO2 65 mmHg (35-45) H 07/07/18 04:50 ABG pO2 77 mmHg (85-104) L 07/07/18 04:50 ABG O2 Saturation 94 % (95-98) L 07/07/18 04:50 PT/INR, D-dimer PT 15.1 Seconds (9.4-12.1) H 07/06/18 04:00 D-Dimer 3465 ng/mLFEU (0-500) H 06/18/18 08:08 Abnormal lab findings: Abnormal lab results RBC 2.35 M/mcL (4.19-5.50) L 07/07/18 04:41 Hgb 7.4 g/dL (12.9-16.9) L 07/07/18 04:41 Hct 24.1 % (37.5-50.1) L 07/07/18 04:41 MCV 102.6 fL (83.0-100.0) H 07/07/18 04:41 MCHC 30.7 g/dL (31.6-35.5) L 07/07/18 04:41 RDW 15.7 % (11.5-14.5) H 07/07/18 04:41 Plt Count 128 K/mcL (140-400) L 07/07/18 04:41 Band Neutrophils % 6.0 % (0-4) H 06/27/18 03:00 Metamyelocytes % 2.0 % (0) H 06/27/18 03:00 Myelocytes % 6.0 % (0) H 06/27/18 03:00 Nucleated RBCs/100 WBC 0.1 /100 WBC (0) H 06/28/18 03:30 Reactive Lymphocytes Present (Not Present) A 07/01/18 03:00 Toxic Granulation Present (Not Present) A 06/18/18 03:05 Toxic Vacuolation Present (Not Present) A 06/22/18 03:45 Large Platelets Present (Not Present) A 06/23/18 03:15 Polychromasia 1+ (Not Present) A 06/27/18 03:00 Basophilic Stippling 1+ (Not Present) A 06/26/18 04:00 Anisocytosis 1+ (Not Present) A 06/28/18 03:30 Macrocytosis Present (Not Present) A 06/26/18 04:00 PT 15.1 Seconds (9.4-12.1) H 07/06/18 04:00 APTT 62.8 Seconds (26.0-36.0) H 06/23/18 08:00 Fibrinogen 578 mg/dL (169-393) H 06/18/18 08:08 D-Dimer 3465 ng/mLFEU (0-500) H 06/18/18 08:08 ABG pCO2 65 mmHg (35-45) H 07/07/18 04:50 ABG pO2 77 mmHg (85-104) L 07/07/18 04:50 ABG HCO3 33 mEq/L (21-27) H 07/07/18 04:50 ABG Total CO2 35 mEq/L (20-26) H 07/07/18 04:50 ABG O2 Saturation 94 % (95-98) L 07/07/18 04:50 ABG Base Excess 6 mEq/L (-2 to 3) H 07/07/18 04:50 Sodium 153 mEq/L (136-145) H 07/07/18 04:41 Potassium 3.2 mEq/L (3.5-5.1) L 07/07/18 04:41 Chloride 116 mEq/L (98-107) H 07/07/18 04:41 Carbon Dioxide 31 mEq/L (23-29) H 07/07/18 04:41 BUN 32 mg/dL (6-20) H 07/07/18 04:41 Creatinine 2.74 mg/dL (0.70-1.30) H 07/07/18 04:41 Est GFR ( Amer) 30 (> 60) L 07/07/18 04:41 Est GFR (Non-Af Amer) 24 (> 60) L 07/07/18 04:41 Glucose 260 mg/dL (70-105) H 07/07/18 04:41 POC Glucose 275 mg/dL (70-99) H 07/07/18 12:42 Serum Osmolality 327 mOsm/kg (280-300) H 07/01/18 09:48 Calculated Osmolality 332 (280-300) H 07/07/18 04:41 Venous Ioniz Calcium 1.13 mmol/L (1.15-1.35) L 07/01/18 03:39 Phosphorus 5.0 mg/dL (2.7-4.5) H 07/07/18 04:41 Iron < 10 mcg/dL (65-175) L 07/01/18 03:00 Transferrin 146 mg/dL (203-362) L 07/01/18 03:00 Ferritin 647 ng/mL (20-250) H 07/01/18 03:00 Direct Bilirubin 0.4 mg/dL (0.0-0.2) H 06/23/18 03:15 Troponin I 0.92 ng/mL (< 0.04) H* 06/17/18 22:33 Serum Total Protein 6.3 g/dL (6.4-8.9) L 07/06/18 04:00 Albumin 2.6 g/dL (3.5-5.7) L 07/06/18 04:00 Globulin 3.7 g/dL (2.4-3.5) H 07/06/18 04:00 Albumin/Globulin Ratio 0.7 (1.1-2.2) L 07/06/18 04:00 Amylase 20 Units/L (29-103) L 06/23/18 16:27 Folate 2.5 ng/mL (3.0-16.0) L 06/27/18 11:25 Procalcitonin 107.11 ng/mL (<=0.07) H 06/17/18 16:40 TSH 7.234 mcIU/mL (0.340-5.600) H 06/27/18 11:25 Ur Specific [place] < 1.005 (1.010-1.025) L 06/30/18 09:34 Urine Blood Moderate (Negative) H 06/30/18 09:34 Ur Leukocyte Esterase Moderate (Negative) H 06/30/18 09:34 Urine Microscopic RBC 3-5 per hpf (0-3) H 06/30/18 09:34 Urine Microscopic WBC 50-100 per hpf (0-3) H 06/30/18 09:34 Urine Bacteria Many per hpf (None-Few) H 06/30/18 09:34 Urine Osmolality 200 mOsm/kg (300-1090) L 06/30/18 09:33 Protein/Creatinin Ratio 1.68 mg/mg (0.00-0.20) H 06/30/18 09:34 Urine Total Protein 52 mg/dL (1-14) H 06/30/18 09:34 Vancomycin Trough 19 mcg/mL (5-10) H 07/05/18 04:00 Urine Opiates Screen Positive ng/mL (Ncddhw=382) H 06/18/18 10:37 U Benzodiazepines Scrn Positive ng/mL (Mabwnv=489) H 06/18/18 10:37 HSV I DETECTED (Not Detect) A 06/24/18 15:10 - Microbiology Findings Microbiology Findings: Microbiology, Last 48 Hours 07/04/18 07:38 Sputum Culture - Final Aspirate Acinetobacter baumannii complx - Clinical Findings Intake & Output: Intake & Output 07/06/18 07/07/18 07/07/18 23:59 07:59 15:59 Intake Total 2077 / 2077 818 / 818 1548 / 1548 Output Total 2725 / 2725 850 / 850 2350 / 2350 Balance -648 / -648 -32 / -32 -802 / -802 Weight 110.8 kg - Attending Attestation I saw and evaluated this patient and my medical decision-making was reviewed with the Resident Physician. I agree with the documented findings, disposition and treatment plan as described except to the extent set forth below. We independently had [id number] contact with the patient I spent 35 minutes of Critical Care time with this patient. It involved decision making of high complexity to assess, manipulate, and support vital organ system failure and/or to prevent further life threatening deterioration of the patient's condition. The time involved in the performance of separately reportable procedures was not counted toward critical care time. Patient seen and examined at bedside Labs, radiology, chart personally reviewed. Management was reviewed during multidisciplinary critical care rounds. ENVELOPE CUTTER: Patient has acute encephalopathy secondary to possibly toxic/metabolic with underlying pneumonia and hyponatremia possibly contributing to this we will reassess after correction the toxic metabolic causes. Pulm: Patient has still severe VQ mismatch will bring down the FiO2 and keep the PEEP at 10 and FiO2 is 40% will try to prevent down the PEEP. The most likely reason for VQ mismatches due to pneumonia rather than fluid overload patient is after diuresing will hold off on additional diuresis for now. To continue the current regimen of antibiotics for A.Baumnii pneumonia. Cards: Patient septic shock is resolved. FEN-GI: Diet according to nutrition. Renal: Patient renal function as improving labs and output reviewed nephrology on board no urgent need of dialysis today. ID: Review broad-spectrum antibiotics Heme/Onc: Prophylaxis. Endo: Glucose Monitored Integ/MSK: Skin Care per routine ICU Nursing Protocol to prevent ulcers. Lines: All lines examined without evidence of infection : Dispo: Critically ill. CODE:Full Code
[2018-07-07] MEDS ORDERED: Potassium Chloride Elixir 20 MEQ/15 ML UDC GTUBE ONE (09:21)
[2018-07-07] MEDS: Acyclovir 750 MG in D5% in Water 250 ML IVPB SCH ×2 (09:38→19:59)
--- NOTE | 2018-07-07 09:52 | Nephrology Progress Note ---
Date of Encounter: 07/07/18 Time of Encounter: 09:47 - Assessment and Plan (1) LUCILA (acute kidney injury) Current Visit: Yes Status: Acute Polyuric AK I, urine output has increased again, 5 L out yesterday, 1 L out so far today Patient did receive hemodialysis on Saturday and has not received any symptoms Serum creatinine has continued to decrease over the weekend despite no more hemodialysis Patient does appear dry at this time, has wrinkles on his skin and dry mucous membranes He continues to have hypernatremia consistent with loss of free water Plan: -No indication for acute hemodialysis at this time -Serum creatinine likely in response to persistent hypovolemia with fluid deficit of 6.5L -Recommend 4-4.5 L free water Per OG at rate of 500mL every 4 hours +70 mL D5W per hour (2) Hypernatremia Current Visit: Yes Status: Acute Likely secondary to free water deficit in the setting of polyuric phase of renal recovery, however diabetes insipidus is on the differential He now will have OG tube as he has been intubated again due to declining respiratory status Recommend 400mL free water q4h at this time, agree with D5W at 70mL/hr (3) Acute respiratory failure with hypoxemia Current Visit: Yes Status: Acute Patient required intubation due to worsening respiratory status Management per critical care team (4) Anemia Current Visit: Yes Status: Acute Severe iron deficiency anemia Transfusion parameters per primary team Qualifiers: Anemia type: iron deficiency Iron deficiency anemia type: unspecified iron deficiency Qualified Code(s): D50.9 - Iron deficiency anemia, unspecified Subjective Principal diagnosis: septic shock Interval history: The patient remains intubated at this time. He is significantly more alert than he was previously, and he responds gently to commands. He continues to have substantial urine output, 5L yesterday. Objective - Vital Signs Vital signs: Vital Signs Temp Pulse Resp BP Pulse Ox 07/07/18 09:00 102 17 122/79 96 07/07/18 08:38 89 07/07/18 08:32 89 07/07/18 08:00 97.6 F 82 18 136/78 96 07/07/18 07:15 18 104/57 88 07/07/18 07:00 88 18 104/57 94 07/07/18 06:00 82 16 129/71 95 07/07/18 05:56 16 129/71 96 07/07/18 05:00 89 17 122/69 95 07/07/18 04:00 97.9 F 125 22 142/82 96 07/07/18 03:26 101 21 106/63 97 07/07/18 03:00 94 16 106/63 96 07/07/18 02:00 104 18 117/66 97 07/07/18 01:05 16 90/52 96 07/07/18 01:00 78 16 90/52 96 07/07/18 00:00 97 16 120/69 95 07/06/18 23:56 99.0 F 07/06/18 23:30 98 07/06/18 23:18 16 116/65 95 07/06/18 23:00 108 16 116/65 95 07/06/18 22:00 99.4 F 108 16 116/68 95 07/06/18 21:39 19 115/67 137 07/06/18 21:00 129 20 117/70 93 07/06/18 20:10 101.2 F H 17 147/83 96 07/06/18 20:00 125 19 147/83 96 07/06/18 19:50 137 07/06/18 19:00 126 17 136/72 96 07/06/18 18:14 16 119/67 96 07/06/18 18:00 116 17 119/64 96 07/06/18 17:15 16 119/67 96 07/06/18 17:00 113 16 119/67 95 07/06/18 16:03 121 18 129/76 97 07/06/18 16:00 110 18 129/76 97 07/06/18 15:37 16 129/76 95 07/06/18 15:00 114 22 121/67 95 07/06/18 14:38 126 07/06/18 14:00 124 22 117/65 94 07/06/18 13:14 126 07/06/18 13:05 16 123/69 98 07/06/18 13:00 126 22 141/80 94 07/06/18 12:00 123 22 109/69 93 07/06/18 11:14 16 109/55 93 07/06/18 11:00 118 22 109/55 95 07/06/18 10:00 111 20 124/62 93 Intake and Output 07/06/18 07/07/1818 23:59 07:59 15:59 Intake Total 2076 / 7 818 / 818 699 / 699 Output Total 2725 / 2725 850 / 850 1000 / 1000 Balance -648 / -648 -32 / -32 -301 / -301 Intake: IV Fluids 465 / 465 166 / 166 PRECEDEX Premix 400 mcg In 100 100 / 100 116 / 116 ml @ 0.2 MCG/KG/HR 5.45 mls/hr IVC .[id number] NADIA Rx#:[id number] FentaNYL (PF) 2,500 MCG In 50 / 50 Empty Bag 1 Each @ 50 MCG/HR 1 mls/hr IVC CONT NADIA Rx#: [id number] Zovirax 750 MG In Dextrose 5% 265 / 265 250 ML @ 265 mls/hr IVPB Q12H NADIA Rx#:[id number] Merrem 500 MG In 0.9 % Sodium 100 / 100 Chloride (Mini-Bag +) 100 ML @ 200 mls/hr IVPB Q12H NADIA Rx#: [id number] Oral 0 / 0 Tube Feeding 412 / 412 252 / 252 299 / 299 Free Water 1200 / 1200 400 / 400 400 / 400 Output: Catheter 2725 / 2725 850 / 850 1000 / 1000 Other: Stool Size Moderate Moderate Stool Consistency loose loose Stool Color Brown Brown # Bowel Movements 1 1 Weight 110.8 kg Blood Glucose* 205 218 235 - General Appearance Exam: Gen: Vitals noted. No acute distress. Sedated on Mechanical ventilation. HEENT: Normocephalic, atraumatic. Dry mucous membranes. Neck: Supple. No adenopathy. Right internal jugular temporary hemodialysis catheter in place with no erythema surrounding Cardiac: RRR, no murmur, +S1/S2 Pulmonary: Clear to auscultation bilaterally, diminished in the right lung base Abdomen: soft, nontender, no guarding Extremities: 2+ bilateral lower extremity edema, nontender calf, no cyanosis or clubbing Neuro: Patient has been extubated and is largely off sedation. Follows commands. - Lab 07/07/18 04:41 07/07/18 04:41 Most recent lab results ABG pH 7.32 pH Units (7.32-7.45) 07/07/18 04:50 ABG pCO2 65 mmHg (35-45) H 07/07/18 04:50 ABG pO2 77 mmHg (85-104) L 07/07/18 04:50 ABG HCO3 33 mEq/L (21-27) H 07/07/18 04:50 ABG O2 Saturation 94 % (95-98) L 07/07/18 04:50 Calcium 8.7 mg/dL (8.6-10.3) 07/07/18 04:41 Phosphorus 5.0 mg/dL (2.7-4.5) H 07/07/18 04:41 Magnesium 1.7 mg/dL (1.6-2.6) 07/07/18 04:41 Urine Creatinine 31 mg/dL 06/30/18 09:34 Urine Sodium 40.6 mEq/L 06/30/18 09:34 Urine Total Protein 52 mg/dL (1-14) H 06/30/18 09:34 - VTE Documentation of Mechanical Device: Intermittent pneumatic compression device Consult Discharge Plan - Plan Referrals: Sheryl Stahl, [employer] [Primary Care Provider] -
[2018-07-07] MEDS: Norepinephrine 4 MG in D5% in Water 250 ML IVC SCH (10:45)
[2018-07-07] MEDS ORDERED: Meropenem 1,000 MG in 0.9 % Sodium Chloride Mini Bag 100 ML IVPB SCH (11:00)
--- NOTE | 2018-07-07 11:16 | Infectious Disease Progress No ---
Date of Encounter: 07/07/18 Time of Encounter: 11:14 - Assessment and Plan (1) Septic shock Current Visit: Yes Status: Acute The patient had 4 SIRS criteria plus lactic acidosis, acute kidney injury, acute encephalopathy, and hypotension requiring vasopressors. Likely secondary to candidemia, UTI, possible HSV encephalitis, and PNA. Improved. Leukocytosis resolved. Febrile over the weekend with Tmax 101.4. Continues to have tachycardia currently, but nurse states it improves with increase in sedation. Blood cultures obtained 06/17/18 are +2 out of 2 sets for Marisela albicans, nation- sensitive. Repeat blood cultures obtained 06/19/18 are negative 2 sets. Additional blood cultures drawn 07/04/18 are NGTD x 2 sets. (2) Candidemia Current Visit: Yes Status: Resolved Causative organism: Marisela albicans. Source: unclear. CT of the abdomen and pelvis is negative. He has no indwelling lines or catheters. His urine culture is positive for C. albicans. Blood cultures obtained 06/17/18 are +2 out of 2 sets for Marisela albicans, nation- sensitive. Repeat blood cultures obtained 06/19/18 are negative 2 sets. Additional blood cultures 07/04/18 are NGTD x 2 sets. Repeat LFTs normal. Completed 14 days of IV fluconazole. Resolved. Recommend opthalmology to evaluate when the patient stabilizes as it does not appear to have been done yet. (3) Pneumonia Current Visit: Yes Status: Suspected Location: Bilateral lower lobes. Causative organism: Unclear. Consider aspiration since the patient had altered mental status and was recently intubated. CT of the chest showed bilateral lower lobe infiltrates versus atelectasis. The patient does have a large amount of secretions coming from his ET tube. Discussed with the pulmonary team. Concern for pneumonia from their standpoint. MRSA screen completed 06/17/18 is negative. Initial sputum culture negative. Repeat Sputum culture 07/04/18 positive for A. baummannii. S. pneumo and Legionella UAT 06/20/18.--> negative. Repeat CXR 06/23/18 showed mild pulmonary vascular congestion and atelectasis and mild pleural effusion at the right lung base, increased. CT scan of the chest 06/23/18 negative for PNA. CXR 07/01/18 showed stable RLL disease and improved LLL disease. CXR 07/07/18 showed mild pulmonary vascular congestion and mild right pleural effusion. Vanc and Zosyn discontinued 06/25/18 after 9 days. Discontinue Meropenem. Start Cefepime 2 grams IV Q12H. Dosing discussed with Leon Miles. CrCl ~29. Duration of treatment depends on the clinical picture. Monitor renal function and for drug toxicity and dose-adjust antibiotics. Qualifiers: Pneumonia type: due to unspecified organism Laterality: bilateral Lung location: lower lobe of lung Qualified Code(s): J18.1 - Lobar pneumonia, unspecified organism (4) UTI (urinary tract infection) Current Visit: Yes Status: Acute Causative organism 06/18/18: C. albicans. Completed 14+ days of fluconazole. Repeat urine culture 07/01/18 grew E. coli, resistant to ampicillin and Unasyn. Likely secondary to jacobo catheter. Discontinue Meropenem. Start Cefepime. Switch out jacobo catheter. Duration of treatment depends on the clinical picture. Monitor renal function and for drug toxicity and dose-adjust antibiotics. Qualifiers: Urinary tract infection type: site unspecified Hematuria presence: without hematuria Qualified Code(s): N39.0 - Urinary tract infection, site not specified (5) Encephalopathy Current Visit: Yes Status: Acute Etiology unclear, but likely related to sepsis. Per the patient's , the patient did have any complaints of neck pain, stiffness, or headache. Unable to assess mental status since the patient remains intubated and sedated. CT head negative for intracranial abnormality. 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 LP attempted by the pulm/CC team and IR was unsuccessful. Neurology consulted. Appreciate recommendations. Signed off. Acyclovir stopped by the pulmonary team, re-started 07/04/18. Continue for now. (6) LUCILA (acute kidney injury) Current Visit: Yes Status: Acute Likely multifactorial: sepsis + hypotension + other. CRRT started 06/19/18 and stopped 06/26/18. Creatinine improved initially, but trending back up. Urine output remains adequate. Nephrology consulted and following. Continue to trend. Dose-adjust medications. (7) Lactic acidosis Current Visit: Yes Status: Resolved Likely secondary to sepsis. Resolved. (8) Thrombocytopenia Current Visit: Yes Status: Resolved Likely secondary to sepsis. LFTs abnormal on admission. Repeat LFTs normal. Improved. Continue to trend. No acute bleeding noted on exam. Further workup and management per the primary team. (9) Acute respiratory failure with hypoxemia Current Visit: Yes Status: Acute Likely secondary to PNA vs. pulmonary edema. Extubated 07/01/18. Re-intubated 07/04/18. Management per the pulmonary team. (10) Hypokalemia Current Visit: Yes Status: Resolved Resolved. (11) Elevated troponin Current Visit: Yes Status: Acute Management per the primary team. (12) Type 2 diabetes mellitus Current Visit: Yes Status: Chronic Recommend aggressive glucose monitoring and control. Management per the primary team. 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 PCR positive for HSV 1. New lesion noted to the right nasolabial fold: HSV vs. other. Continue acyclovir for now. (day 13) May need to have dermatology evaluate. Duration of treatment depends on the clinical picture, but recommend a total of 14 days. (15) Sinusitis Current Visit: Yes Status: Resolved CT of the head 06/23/18 showed sinusitis of the bilateral sphenoid and ethmoid sinuses. Causative organism unclear. Treated with 9 days of Vanc and Zosyn. Qualifiers: Sinusitis location: unspecified location Chronicity: acute Recurrence: non-recurrent Qualified Code(s): J01.90 - Acute sinusitis, unspecified - Subjective Interval history: Re-consultation requested by the pulmonary team to assist with management of A. baumannii in the sputum and UTI. Since last evaluation by the ID team, the patient decompensated and required re-intubation. His sputum and urine cultures came back positive. Patient seen and examined. Febrile overnight. Continues to have tachycardia. WBC has normalized. Patient tolerating tube feeds and free water per nursing. Stools are loose, but do not look like C. diff. Patient shakes his head "yes" that he is having pain, but unable to localize. Follows some commands. Infect Dis PN-Objective Data - Labs CBC & Chem 7: 07/08/18 03:56 07/08/18 03:56 Labs: Laboratory Results - last 24 hr 07/06/18 07/06/18 07/06/18 12:29 15:54 15:58 WBC RBC Hgb Hct MCV MCH MCHC RDW Plt Count MPV Sample Site ABG pH ABG pCO2 ABG pO2 ABG HCO3 ABG Total CO2 ABG O2 Saturation ABG Base Excess Michael Test Respiration Rate O2 Delivery Device Blood Gas Modality Inspired O2 Tidal Volume PEEP Sodium 153 H Potassium 3.6 Chloride 116 H Carbon Dioxide 31 H BUN 30 H Creatinine 2.90 H Est GFR ( Amer) 28 L Est GFR (Non-Af Amer) 23 L BUN/Creatinine Ratio 10 Glucose 167 H POC Glucose 209 H 179 H Calculated Osmolality 326 H Calcium 8.9 Phosphorus Magnesium 07/06/18 07/06/18 07/07/18 20:03 23:46 03:30 WBC RBC Hgb Hct MCV MCH MCHC RDW Plt Count MPV Sample Site ABG pH ABG pCO2 ABG pO2 ABG HCO3 ABG Total CO2 ABG O2 Saturation ABG Base Excess Michael Test Respiration Rate O2 Delivery Device Blood Gas Modality Inspired O2 Tidal Volume PEEP Sodium Potassium Chloride Carbon Dioxide BUN Creatinine Est GFR ( Amer) Est GFR (Non-Af Amer) BUN/Creatinine Ratio Glucose POC Glucose 184 H 205 H 218 H Calculated Osmolality Calcium Phosphorus Magnesium 07/07/18 07/07/18 07/07/18 04:41 04:41 04:50 WBC 5.0 D RBC 2.35 L Hgb 7.4 L Hct 24.1 L MCV 102.6 H MCH 31.5 MCHC 30.7 L RDW 15.7 H Plt Count 128 L MPV 12.0 Sample Site R Radial ABG pH 7.32 ABG pCO2 65 H ABG pO2 77 L ABG HCO3 33 H ABG Total CO2 35 H ABG O2 Saturation 94 L ABG Base Excess 6 H Michael Test N/A Respiration Rate 16 O2 Delivery Device Adult Vent Blood Gas Modality PRVC Inspired O2 60.0 Tidal Volume 460 PEEP 10 Sodium 153 H Potassium 3.2 L Chloride 116 H Carbon Dioxide 31 H BUN 32 H Creatinine 2.74 H Est GFR ( Amer) 30 L Est GFR (Non-Af Amer) 24 L BUN/Creatinine Ratio 12 Glucose 260 H POC Glucose Calculated Osmolality 332 H Calcium 8.7 Phosphorus 5.0 H Magnesium 1.7 07/07/18 08:21 WBC RBC Hgb Hct MCV MCH MCHC RDW Plt Count MPV Sample Site ABG pH ABG pCO2 ABG pO2 ABG HCO3 ABG Total CO2 ABG O2 Saturation ABG Base Excess Michael Test Respiration Rate O2 Delivery Device Blood Gas Modality Inspired O2 Tidal Volume PEEP Sodium Potassium Chloride Carbon Dioxide BUN Creatinine Est GFR ( Amer) Est GFR (Non-Af Amer) BUN/Creatinine Ratio Glucose POC Glucose 235 H Calculated Osmolality Calcium Phosphorus Magnesium Cultures: Cultures 07/04/18 07:38 Sputum Culture - Final Aspirate Acinetobacter baumannii complx 07/04/18 11:59 Blood Culture - Preliminary Peripheral Venipuncture Culture is incubating and being continuously monitored for growth. Final report to follow. 07/04/18 10:34 Blood Culture - Preliminary Peripheral Venipuncture Culture is incubating and being continuously monitored for growth. Final report to follow. 07/01/18 09:03 Urine Culture - Final Urine,Catheterized Escherichia coli 06/24/18 11:35 Blood Culture - Final Peripheral Venipuncture No growth. Final report. 06/24/18 11:35 Blood Culture - Final Peripheral Venipuncture No growth. Final report. 06/19/18 12:46 Blood Culture - Final Peripheral Venipuncture No growth. Final report. 06/19/18 12:46 Blood Culture - Final Peripheral Venipuncture No growth. Final report. 06/18/18 20:45 Sputum Culture - Final Sputum 06/20/18 11:30 Legionella Antigen - Final Urine,[place] Streptococcus pneumoniae Antigen (M - Final Serology 07/05/18 07/01/18 06/30/18 Range/Units 17:50 09:03 09:34 Urine Color (Yellow) Urine Clarity (Clear) Urine pH (5.0-8.0) pH Units Ur Specific Mobile (1.010-1.025) Urine Protein (Neg-Trace) mg/dL Urine Glucose (UA) (Normal) mg/dL Urine Ketones (Negative) mg/dL Urine Blood (Negative) Urine Nitrite (Negative) Urine Bilirubin (Negative) Urine Urobilinogen (Normal) mg/dL Ur Leukocyte Esterase (Negative) Urine Microscopic RBC (0-3) per hpf Urine Microscopic WBC (0-3) per hpf Ur Eosinophil Smear 0 (None Seen) % Ur Squamous Epith Cells (None-Few) per lpf Urine Bacteria (None-Few) per hpf Hyaline Casts (None-Few) per lpf Urine Osmolality (300-1090) mOsm/kg Urine Creatinine 31 mg/dL Protein/Creatinin Ratio 1.68 H (0.00-0.20) mg/mg Urine Sodium 40.6 mEq/L Urine Potassium mEq/L Urine Chloride mEq/L Urine Total Protein 52 H (1-14) mg/dL Nasal Screen MRSA (PCR) Negative (Negative) Chlamy pneumoniae PCR (Not Detect) Adenovirus (PCR) (Not Detect) B. pertussis DNA (PCR) (Not Detect) B.parapertussis DNA PCR (Not Detect) Coronavirus OC43 (PCR) (Not Detect) Coronavirus HKU1 (PCR) (Not Detect) Coronavirus 229E (PCR) (Not Detect) Coronavirus NL63 (PCR) (Not Detect) Hep Bs Antigen (Nonreactive) Hep Bs Antibody mIU/mL Herpes Simplex Source HSV I (Not Detect) HSV II (Not Detect) HIV Ag/Ab Combo Qual (Nonreactive) Human Metapneumovir PCR (Not Detect) Influenza A (H1) PCR (Not Detect) Influ A (H1N1/09) PCR (Not Detect) Influenza A (H3) PCR (Not Detect) Influenza A Untype (PCR) (Not Detect) Influenza Type B (PCR) (Not Detect) M.pneumoniae DNA (PCR) (Not Detect) Parainfluenza 1 (PCR) (Not Detect) Parainfluenza 2 (PCR) (Not Detect) Parainfluenza 3 (PCR) (Not Detect) Parainfluenza 4 (PCR) (Not Detect) RSV (PCR) (Not Detect) Entero/Rhino (PCR) (Not Detect) 06/30/18 06/30/18 06/24/18 Range/Units 09:34 09:33 15:10 Urine Color Yellow (Yellow) Urine Clarity Clear (Clear) Urine pH 7.0 (5.0-8.0) pH Units Ur Specific Mobile < 1.005 L (1.010-1.025) Urine Protein Trace (Neg-Trace) mg/dL Urine Glucose (UA) Normal (Normal) mg/dL Urine Ketones Negative (Negative) mg/dL Urine Blood Moderate H (Negative) Urine Nitrite Negative (Negative) Urine Bilirubin Negative (Negative) Urine Urobilinogen Normal (Normal) mg/dL Ur Leukocyte Esterase Moderate H (Negative) Urine Microscopic RBC 3-5 H (0-3) per hpf Urine Microscopic WBC 50-100 H (0-3) per hpf Ur Eosinophil Smear (None Seen) % Ur Squamous Epith Cells None Seen (None-Few) per lpf Urine Bacteria Many H (None-Few) per hpf Hyaline Casts None Seen (None-Few) per lpf Urine Osmolality 200 L (300-1090) mOsm/kg Urine Creatinine mg/dL Protein/Creatinin Ratio (0.00-0.20) mg/mg Urine Sodium mEq/L Urine Potassium mEq/L Urine Chloride mEq/L Urine Total Protein (1-14) mg/dL Nasal Screen MRSA (PCR) (Negative) Chlamy pneumoniae PCR (Not Detect) Adenovirus (PCR) (Not Detect) B. pertussis DNA (PCR) (Not Detect) B.parapertussis DNA PCR (Not Detect) Coronavirus OC43 (PCR) (Not Detect) Coronavirus HKU1 (PCR) (Not Detect) Coronavirus 229E (PCR) (Not Detect) Coronavirus NL63 (PCR) (Not Detect) Hep Bs Antigen (Nonreactive) Hep Bs Antibody mIU/mL Herpes Simplex Source Tongue HSV I DETECTED A (Not Detect) HSV II Not Detected (Not Detect) HIV Ag/Ab Combo Qual (Nonreactive) Human Metapneumovir PCR (Not Detect) Influenza A (H1) PCR (Not Detect) Influ A (H1N1/09) PCR (Not Detect) Influenza A (H3) PCR (Not Detect) Influenza A Untype (PCR) (Not Detect) Influenza Type B (PCR) (Not Detect) M.pneumoniae DNA (PCR) (Not Detect) Parainfluenza 1 (PCR) (Not Detect) Parainfluenza 2 (PCR) (Not Detect) Parainfluenza 3 (PCR) (Not Detect) Parainfluenza 4 (PCR) (Not Detect) RSV (PCR) (Not Detect) Entero/Rhino (PCR) (Not Detect) 06/24/18 06/23/18 06/23/18 Range/Units 11:15 20:00 08:10 Urine Color Yellow (Yellow) Urine Clarity Hazy (Clear) Urine pH 6.0 (5.0-8.0) pH Units Ur Specific Mobile 1.013 (1.010-1.025) Urine Protein 30 H (Neg-Trace) mg/dL Urine Glucose (UA) Normal (Normal) mg/dL Urine Ketones Negative (Negative) mg/dL Urine Blood Moderate H (Negative) Urine Nitrite Negative (Negative) Urine Bilirubin Small H (Negative) Urine Urobilinogen Normal (Normal) mg/dL Ur Leukocyte Esterase Moderate H (Negative) Urine Microscopic RBC 3-5 H (0-3) per hpf Urine Microscopic WBC 50-100 H (0-3) per hpf Ur Eosinophil Smear (None Seen) % Ur Squamous Epith Cells Many H (None-Few) per lpf Urine Bacteria None Seen (None-Few) per hpf Hyaline Casts None Seen (None-Few) per lpf Urine Osmolality (300-1090) mOsm/kg Urine Creatinine mg/dL Protein/Creatinin Ratio (0.00-0.20) mg/mg Urine Sodium mEq/L Urine Potassium mEq/L Urine Chloride mEq/L Urine Total Protein (1-14) mg/dL Nasal Screen MRSA (PCR) (Negative) Chlamy pneumoniae PCR (Not Detect) Adenovirus (PCR) (Not Detect) B. pertussis DNA (PCR) (Not Detect) B.parapertussis DNA PCR (Not Detect) Coronavirus OC43 (PCR) (Not Detect) Coronavirus HKU1 (PCR) (Not Detect) Coronavirus 229E (PCR) (Not Detect) Coronavirus NL63 (PCR) (Not Detect) Hep Bs Antigen Nonreactive (Nonreactive) Hep Bs Antibody 0.00 mIU/mL Herpes Simplex Source HSV I (Not Detect) HSV II (Not Detect) HIV Ag/Ab Combo Qual Nonreactive (Nonreactive) Human Metapneumovir PCR (Not Detect) Influenza A (H1) PCR (Not Detect) Influ A (H1N1/09) PCR (Not Detect) Influenza A (H3) PCR (Not Detect) Influenza A Untype (PCR) (Not Detect) Influenza Type B (PCR) (Not Detect) M.pneumoniae DNA (PCR) (Not Detect) Parainfluenza 1 (PCR) (Not Detect) Parainfluenza 2 (PCR) (Not Detect) Parainfluenza 3 (PCR) (Not Detect) Parainfluenza 4 (PCR) (Not Detect) RSV (PCR) (Not Detect) Entero/Rhino (PCR) (Not Detect) 06/20/18 06/18/18 06/18/18 Range/Units 11:30 10:28 10:28 Urine Color (Yellow) Urine Clarity (Clear) Urine pH (5.0-8.0) pH Units Ur Specific Mobile (1.010-1.025) Urine Protein (Neg-Trace) mg/dL Urine Glucose (UA) (Normal) mg/dL Urine Ketones (Negative) mg/dL Urine Blood (Negative) Urine Nitrite (Negative) Urine Bilirubin (Negative) Urine Urobilinogen (Normal) mg/dL Ur Leukocyte Esterase (Negative) Urine Microscopic RBC (0-3) per hpf Urine Microscopic WBC (0-3) per hpf Ur Eosinophil Smear (None Seen) % Ur Squamous Epith Cells (None-Few) per lpf Urine Bacteria (None-Few) per hpf Hyaline Casts (None-Few) per lpf Urine Osmolality 343 (300-1090) mOsm/kg Urine Creatinine mg/dL Protein/Creatinin Ratio (0.00-0.20) mg/mg Urine Sodium mEq/L Urine Potassium 36.5 mEq/L Urine Chloride mEq/L Urine Total Protein (1-14) mg/dL Nasal Screen MRSA (PCR) (Negative) Chlamy pneumoniae PCR Not Detected (Not Detect) Adenovirus (PCR) Not Detected (Not Detect) B. pertussis DNA (PCR) Not Detected (Not Detect) B.parapertussis DNA PCR Not Detected (Not Detect) Coronavirus OC43 (PCR) Not Detected (Not Detect) Coronavirus HKU1 (PCR) Not Detected (Not Detect) Coronavirus 229E (PCR) Not Detected (Not Detect) Coronavirus NL63 (PCR) Not Detected (Not Detect) Hep Bs Antigen (Nonreactive) Hep Bs Antibody mIU/mL Herpes Simplex Source HSV I (Not Detect) HSV II (Not Detect) HIV Ag/Ab Combo Qual (Nonreactive) Human Metapneumovir PCR Not Detected (Not Detect) Influenza A (H1) PCR Not Detected (Not Detect) Influ A (H1N1/09) PCR Not Detected (Not Detect) Influenza A (H3) PCR Not Detected (Not Detect) Influenza A Untype (PCR) Not Detected (Not Detect) Influenza Type B (PCR) Not Detected (Not Detect) M.pneumoniae DNA (PCR) Not Detected (Not Detect) Parainfluenza 1 (PCR) Not Detected (Not Detect) Parainfluenza 2 (PCR) Not Detected (Not Detect) Parainfluenza 3 (PCR) Not Detected (Not Detect) Parainfluenza 4 (PCR) Not Detected (Not Detect) RSV (PCR) Not Detected (Not Detect) Entero/Rhino (PCR) Not Detected (Not Detect) 06/17/18 06/17/18 06/17/18 Range/Units 18:15 11:56 11:30 Urine Color (Yellow) Urine Clarity (Clear) Urine pH (5.0-8.0) pH Units Ur Specific Mobile (1.010-1.025) Urine Protein (Neg-Trace) mg/dL Urine Glucose (UA) (Normal) mg/dL Urine Ketones (Negative) mg/dL Urine Blood (Negative) Urine Nitrite (Negative) Urine Bilirubin (Negative) Urine Urobilinogen (Normal) mg/dL Ur Leukocyte Esterase (Negative) Urine Microscopic RBC (0-3) per hpf Urine Microscopic WBC (0-3) per hpf Ur Eosinophil Smear (None Seen) % Ur Squamous Epith Cells (None-Few) per lpf Urine Bacteria (None-Few) per hpf Hyaline Casts (None-Few) per lpf Urine Osmolality (300-1090) mOsm/kg Urine Creatinine mg/dL Protein/Creatinin Ratio (0.00-0.20) mg/mg Urine Sodium 128.8 mEq/L Urine Potassium 7.5 mEq/L Urine Chloride 135 mEq/L Urine Total Protein (1-14) mg/dL Nasal Screen MRSA (PCR) Negative (Negative) Chlamy pneumoniae PCR Not Detected (Not Detect) Adenovirus (PCR) Not Detected (Not Detect) B. pertussis DNA (PCR) Not Detected (Not Detect) B.parapertussis DNA PCR Not Detected (Not Detect) Coronavirus OC43 (PCR) Not Detected (Not Detect) Coronavirus HKU1 (PCR) Not Detected (Not Detect) Coronavirus 229E (PCR) Not Detected (Not Detect) Coronavirus NL63 (PCR) Not Detected (Not Detect) Hep Bs Antigen (Nonreactive) Hep Bs Antibody mIU/mL Herpes Simplex Source HSV I (Not Detect) HSV II (Not Detect) HIV Ag/Ab Combo Qual (Nonreactive) Human Metapneumovir PCR Not Detected (Not Detect) Influenza A (H1) PCR Not Detected (Not Detect) Influ A (H1N1/09) PCR Not Detected (Not Detect) Influenza A (H3) PCR Not Detected (Not Detect) Influenza A Untype (PCR) Not Detected (Not Detect) Influenza Type B (PCR) Not Detected (Not Detect) M.pneumoniae DNA (PCR) Not Detected (Not Detect) Parainfluenza 1 (PCR) Not Detected (Not Detect) Parainfluenza 2 (PCR) Not Detected (Not Detect) Parainfluenza 3 (PCR) Not Detected (Not Detect) Parainfluenza 4 (PCR) Not Detected (Not Detect) RSV (PCR) Not Detected (Not Detect) Entero/Rhino (PCR) Not Detected (Not Detect) - Impressions Impressions Chest X-Ray 07/07/18 04:00 IMPRESSION: Mild pulmonary vascular congestion, stable. Low lung volumes. Mild right pleural effusion. D/ / Arsen Herron MD / Arsen Herron MD Interpreting Provider: Arsen Herron MD Exam - Constitutional Vitals: Temp Pulse Resp BP Pulse Ox 97.6 F 112 17 142/90 95 07/07/18 08:00 07/07/18 10:43 07/07/18 10:43 07/07/18 10:43 07/07/18 10:43 General appearance: cooperative, no acute distress, obese - Head Head exam: Present: atraumatic, normal inspection, normocephalic - Eye Eye exam: Present: EOMI, normal appearance, PERRL Pupils: Present: normal accommodation - ENT ENT exam: Present: mucous membranes moist Additional comments: Herpes lesions to the tongue have resolved. - Neck Neck exam: Present: normal inspection - Respiratory Respiratory exam: Present: CTAB. Absent: rales, respiratory distress, rhonchi, wheezes - Cardiovascular Cardiovascular exam: Present: +S1, +S2, tachycardia. Absent: irregular rhythm - GI/Abdominal GI/Abdominal exam: Present: distended (obese), hypoactive bowel sounds, soft. Absent: tenderness Additional comments: OG tube with tube feeds currently off. Jacobo catheter noted to be draining clear yellow urine. - Extremities Exam Extremities exam: Present: normal inspection. Absent: joint swelling, pedal edema, tenderness - Neurological Exam Neurological exam: Present: altered (Sedated, but able to follow some commands.) - Skin Skin exam: Present: dry, intact, normal color, warm - VTE Documentation of Mechanical Device: Intermittent pneumatic compression device Consult Discharge Plan - Plan Referrals: Sheryl Stahl CUSTODY ASSISTANT [Primary Care Provider] - - Attending Attestation I examined this patient and my medical decision-making was reviewed with the Resident Physician. I agree with the documented findings, disposition and treatment plan as described except to the extent set forth below.
[2018-07-07 17:23] LABS: Potassium 3.2 mEq/L (3.5-5.1)
[2018-07-07] MEDS: Cefepime HCl 2,000 MG in Water for inj. (sterile) 20 ML 20 ML IVP SCH (18:00)
[2018-07-08] MEDS: *HR* LORazepam 2 MG/ML VIAL IVP PRN ×3 (01:37→15:45)
[2018-07-08] MEDS: Dexmedetomidine HCl 400 MCG/100 ML MLS IVC SCH ×6 (01:38→22:07)
[2018-07-08] MEDS: Artificial Tears SOLN 15 ML BOTTLE BOTH EYES SCH ×5 (04:20→20:51)
[2018-07-08] MEDS: Insulin LISPRO 300 UNITS/3 ML VIAL SQ SCH ×4 (04:22→15:43)
[2018-07-08 04:40] LABS: ABG Base Excess 6 mEq/L (-2 to 3); ABG HCO3 32 mEq/L (21-27); ABG Oxygen Saturation 94 % (95-98); ABG PCO2 51 mmHg (35-45); ABG PO2 72 mmHg (85-104); ABG TCO2 33 mEq/L (20-26); Blood Gas Modality VC; Blood Gas PEEP 10 cm H2O; Blood Gas Respiration Rate 16; Blood Gas VT 480 cc
[2018-07-08 04:50] LABS: Basophils % 0.5 %; Eosinophils # 0.3 K/mcL (0.0-0.6); Eosinophils % 4.7 %; Hematocrit 24.8 % (37.5-50.1); Hemoglobin 7.6 g/dL (12.9-16.9); Immature Granulocytes % 0.4 % (0-4); Lymphocytes # 1.3 K/mcL (0.6-4.6); Mean Corpuscular HGB Conc 30.6 g/dL (31.6-35.5); Mean Corpuscular Hemoglobin 31.3 pg (28.0-33.3); Mean Corpuscular Volume 102.1 fL (83.0-100.0); Mean Platelet Volume 12.3 fL (9.4-12.4); Monocytes # 0.6 K/mcL (0.0-1.3); Monocytes % 10.7 %; Neutrophils # 3.5 K/mcL (1.6-8.9); Platelet Count 140 K/mcL (140-400); Red Blood Count 2.43 M/mcL (4.19-5.50); Red Cell Distribution Width 15.6 % (11.5-14.5); Segmented Neutrophils % 61.7 %
[2018-07-08 04:58] LABS: Calcium 8.6 mg/dL (8.6-10.3)
[2018-07-08] MEDS: Cefepime HCl 2,000 MG in Water for inj. (sterile) 20 ML 20 ML IVP SCH ×2 (05:25→18:09)
[2018-07-08] MEDS: *HR* Heparin 5,000 UNIT/ML VIAL SQ SCH ×2 (05:26→18:07)
[2018-07-08] MEDS: FentaNYL (PF) 2,500 MCG in EMPTY BAG 1 EACH IVC SCH ×2 (06:58→20:00)
--- NOTE | 2018-07-08 08:27 | Pulmonology Progress Note ---
<Bonnie Cummins E - Last Filed: 07/08/18 13:45> Date of Encounter: 07/08/18 Time of Encounter: 08:25 Assessment and Plan (1) Septic shock Current Visit: Yes Status: Acute sepsis suspected secondary to karo fungemia. MAP this morning 106. Acyclovir restarted 07/04/18 to to new lesion on right upper lip/nasolabial fold area and continued encephalopathy. Urine shows e.coli on urine culture from . Cefepime for acinitobacter positive sputum culture. (2) Acute respiratory failure with hypoxemia Current Visit: Yes Status: Acute Patient was extubated on 07/01/18 and put on Bipap, had to be reintubated 07/02/18 due to increased respiratory work, respiratory distress, and worsening encephalopathy. Will continue to monitor respiratory status. O2 decreased to 45 % yesterday today was decreased to 40% with PEEP of 8, and will try a CPAP trial. (3) Pneumonia Current Visit: Yes Status: Suspected Pneumonia suspected to do Temperature increase, heart rate increase, worsening breath sounds on exam, and possibly worsened CXR as compared to yesterday. Patient on cefepime per ID Sputum culture positive for acinitobacter Qualifiers: Pneumonia type: due to unspecified organism Laterality: bilateral Lung location: lower lobe of lung Qualified Code(s): J18.1 - Lobar pneumonia, unspecified organism (4) Oral lesion Current Visit: Yes Status: Acute Noted on tongue PCR positive for HSV1 Acyclovir stopped 07/02/18 new lesion noted on exam 07/04/18 above right lip in naso/labial fold area Acyclovir restarted 07/04/18 (5) COPD (chronic obstructive pulmonary disease) Current Visit: Yes Status: Chronic Patient extubated and on bipap on 07/01/18, reintubated 07/02/18 due to increased work of respiration, respiratory distress, and worsening encephalopathy. Continue to monitor Qualifiers: COPD type: emphysema Emphysema type: unspecified Qualified Code(s): J43.9 - Emphysema, unspecified (6) LUCILA (acute kidney injury) Current Visit: Yes Status: Acute Nephrology following. Patient on intermittent dialysis. Hypernatreima with free water deficit possibly due to polyuric phase of renal recovery, will continue to monitor Urine output yesterday 202 mls/hr started on d5% dextrose 50mls/hour Continue to monitor (7) Hypocalcemia Current Visit: Yes Status: Acute Continue to monitor. Calcium today at 8.7. Replace if necessary (8) Hypernatremia Current Visit: Yes Status: Acute Nephrology on board Possibly due to polyuric phase of renal recovery D5% 50mls/hr Continue sodium checks and monitoring neurologic status (9) Hypokalemia Current Visit: Yes Status: Resolved K+ 3.2 today. HAS been given 40 units Potassium Chloride elixor. Continue to monitor and replace as necessary (10) Encephalopathy Current Visit: Yes Status: Acute Neuro on board, believed to be from toxic metabolic causes. Fluconazole stopped 07/03/18, acyclovir stopped on 06/01/19 Acyclovir restarted 07/04/18 after exam showed new lesion above right upper lip in nasolabial fold area. (11) Thrombocytopenia Current Visit: Yes Status: Resolved Platelets 140. Continue to monitor. 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 No heparin was in use in the lines which could have caused the excessive clotting on dialysis filter. Also, platelet count could have been decreased do to septic shock. Heparin was held over the weekend, restarted 06/30/18 due to platelets staying steady, today platelets 128 (13) Type 2 diabetes mellitus Current Visit: Yes Status: Chronic Switched to subcutaneous insulin medium sliding scale q4 Qualifiers: Diabetes mellitus [facility] insulin use: with long term care pharmacist use Diabetes mellitus complication status: with unspecified complications Qualified Code(s) : E11.8 - Type 2 diabetes mellitus with unspecified complications; Z79.4 - [facility] (current) use of insulin (14) UTI (urinary tract infection) Current Visit: Yes Status: Acute Urine culture from 07/01/18 grew gram negative brook Currently on miropenem Qualifiers: Urinary tract infection type: site unspecified Hematuria presence: without hematuria Qualified Code(s): N39.0 - Urinary tract infection, site not specified (15) DVT prophylaxis Current Visit: Yes Status: Acute ECPDs Heparin 5000 units sub q (16) Pressure ulcer Current Visit: Yes Status: Acute Patient has to stage II pressure ulcers in the buttock area Preventative turning every 2 hours Continue to monitor Qualifiers: Pressure injury location: buttock Pressure injury stage: stage 2 Laterality: unspecified laterality Qualified Code(s): L89.302 - Pressure ulcer of unspecified buttock, stage 2 Subjective Principal diagnosis: septic shock Interval history: Mr. Mccarthy was seen at bedside this morning. He was reintubated 07/01/18. Creatinine 2.31, nephrology following and will be doing intermediate dialysis. WBC count 5.7 today. ABGs show pH 7.40, pCO2 51, pO2 72, O2 sat 94%. Restarted heprin for DVT prophylaxis 06/30/18. Currently on Cefapime. Acyclovir restarted 07/04/18 due to new lesion noted on the right upper lip/nasolabial fold area. Patient is easily awaken, does follow some commands. Objective PUL Vital signs: Last Vital Signs Temp 98.7 F 07/08/18 04:00 Pulse 92 07/08/18 06:00 Resp 23 07/08/18 07:29 BP 147/106 07/08/18 07:29 Pulse Ox 94 07/08/18 07:29 General appearance: other (Patient is intubated, awake follows some commands but not all.) Eyes: injected (Bilaterally) ENT: oropharynx dry Neck: no lymphadenopathy Effort: normal Auscultation: bilateral: diminished breath sounds (Lower lobes), wheezes (Upper lobes expiratory) Cardiovascular: regular rate and rhythm Gastrointestinal: normoactive bowel sounds, soft, non-tender Integumentary: normal Extremities: no cyanosis, no clubbing, edema (1+ at the feet) Ventilator Settings Ventilator Settings: Ventilator Settings, Last 8 Hours Ventilator Tidal Volume 480 Setting Ventilator Tidal Volume 480 Setting Ventilator Tidal Volume 480 Setting Ventilator Tidal Volume 480 Setting Ventilator Tidal Volume 480 Setting Ventilator Tidal Volume 460 Setting Ventilator Tidal Volume 460 Setting Ventilator Tidal Volume 460 Setting Ventilator Tidal Volume 460 Setting Ventilator Tidal Volume 460 Setting Ventilator Tidal Volume 460 Setting Ventilator Respiratory Rate 16 Setting Ventilator Respiratory Rate 16 Setting Ventilator Respiratory Rate 16 Setting Ventilator Respiratory Rate 16 Setting Ventilator Respiratory Rate 16 Setting Ventilator Respiratory Rate 16 Setting Ventilator Respiratory Rate 16 Setting Ventilator Respiratory Rate 16 Setting Ventilator Respiratory Rate 16 Setting Ventilator Respiratory Rate 16 Setting Ventilator Respiratory Rate 16 Setting Actual Respiratory Rate 26 Actual Respiratory Rate 19 Actual Respiratory Rate 17 Actual Respiratory Rate 17 Actual Respiratory Rate 18 Actual Respiratory Rate 21 Actual Respiratory Rate 18 Actual Respiratory Rate 17 Actual Respiratory Rate 17 Actual Respiratory Rate 22 Positive End Expiratory 10 Pressure Positive End Expiratory 10 Pressure Positive End Expiratory 10 Pressure Positive End Expiratory 10 Pressure Positive End Expiratory 10 Pressure Positive End Expiratory 10 Pressure Positive End Expiratory 10 Pressure Positive End Expiratory 10 Pressure Positive End Expiratory 10 Pressure Positive End Expiratory 10 Pressure Positive End Expiratory 10 Pressure Peak Inspiratory Airway 19 Pressure Peak Inspiratory Airway 27 Pressure Peak Inspiratory Airway 28 Pressure Peak Inspiratory Airway 28 Pressure Peak Inspiratory Airway 25 Pressure Peak Inspiratory Airway 16 Pressure Peak Inspiratory Airway 25 Pressure Peak Inspiratory Airway 30 Pressure Peak Inspiratory Airway 27 Pressure Peak Inspiratory Airway 19 Pressure Results - Laboratory Findings CBC and BMP: 07/08/18 03:56 07/08/18 03:56 ABG ABG pH 7.40 pH Units (7.32-7.45) 07/08/18 04:36 ABG pCO2 51 mmHg (35-45) H 07/08/18 04:36 ABG pO2 72 mmHg (85-104) L 07/08/18 04:36 ABG O2 Saturation 94 % (95-98) L 07/08/18 04:36 PT/INR, D-dimer PT 15.1 Seconds (9.4-12.1) H 07/06/18 04:00 D-Dimer 3465 ng/mLFEU (0-500) H 06/18/18 08:08 Abnormal lab findings: Abnormal lab results RBC 2.43 M/mcL (4.19-5.50) L 07/08/18 03:56 Hgb 7.6 g/dL (12.9-16.9) L 07/08/18 03:56 Hct 24.8 % (37.5-50.1) L 07/08/18 03:56 MCV 102.1 fL (83.0-100.0) H 07/08/18 03:56 MCHC 30.6 g/dL (31.6-35.5) L 07/08/18 03:56 RDW 15.6 % (11.5-14.5) H 07/08/18 03:56 Band Neutrophils % 6.0 % (0-4) H 06/27/18 03:00 Metamyelocytes % 2.0 % (0) H 06/27/18 03:00 Myelocytes % 6.0 % (0) H 06/27/18 03:00 Nucleated RBCs/100 WBC 0.1 /100 WBC (0) H 06/28/18 03:30 Reactive Lymphocytes Present (Not Present) A 07/01/18 03:00 Toxic Granulation Present (Not Present) A 06/18/18 03:05 Toxic Vacuolation Present (Not Present) A 06/22/18 03:45 Large Platelets Present (Not Present) A 06/23/18 03:15 Polychromasia 1+ (Not Present) A 06/27/18 03:00 Basophilic Stippling 1+ (Not Present) A 06/26/18 04:00 Anisocytosis 1+ (Not Present) A 06/28/18 03:30 Macrocytosis Present (Not Present) A 06/26/18 04:00 PT 15.1 Seconds (9.4-12.1) H 07/06/18 04:00 APTT 62.8 Seconds (26.0-36.0) H 06/23/18 08:00 Fibrinogen 578 mg/dL (169-393) H 06/18/18 08:08 D-Dimer 3465 ng/mLFEU (0-500) H 06/18/18 08:08 ABG pCO2 51 mmHg (35-45) H 07/08/18 04:36 ABG pO2 72 mmHg (85-104) L 07/08/18 04:36 ABG HCO3 32 mEq/L (21-27) H 07/08/18 04:36 ABG Total CO2 33 mEq/L (20-26) H 07/08/18 04:36 ABG O2 Saturation 94 % (95-98) L 07/08/18 04:36 ABG Base Excess 6 mEq/L (-2 to 3) H 07/08/18 04:36 Sodium 154 mEq/L (136-145) H 07/08/18 03:56 Potassium 3.0 mEq/L (3.5-5.1) L 07/08/18 03:56 Chloride 117 mEq/L (98-107) H 07/08/18 03:56 Carbon Dioxide 30 mEq/L (23-29) H 07/08/18 03:56 BUN 35 mg/dL (6-20) H 07/08/18 03:56 Creatinine 2.31 mg/dL (0.70-1.30) H 07/08/18 03:56 Est GFR ( Amer) 36 (> 60) L 07/08/18 03:56 Est GFR (Non-Af Amer) 30 (> 60) L 07/08/18 03:56 Glucose 228 mg/dL (70-105) H 07/08/18 03:56 POC Glucose 268 mg/dL (70-99) H 07/08/18 08:16 Serum Osmolality 327 mOsm/kg (280-300) H 07/01/18 09:48 Calculated Osmolality 333 (280-300) H 07/08/18 03:56 Venous Ioniz Calcium 1.13 mmol/L (1.15-1.35) L 07/01/18 03:39 Phosphorus 5.0 mg/dL (2.7-4.5) H 07/07/18 04:41 Iron < 10 mcg/dL (65-175) L 07/01/18 03:00 Transferrin 146 mg/dL (203-362) L 07/01/18 03:00 Ferritin 647 ng/mL (20-250) H 07/01/18 03:00 Direct Bilirubin 0.4 mg/dL (0.0-0.2) H 06/23/18 03:15 Troponin I 0.92 ng/mL (< 0.04) H* 06/17/18 22:33 Serum Total Protein 6.3 g/dL (6.4-8.9) L 07/06/18 04:00 Albumin 2.6 g/dL (3.5-5.7) L 07/06/18 04:00 Globulin 3.7 g/dL (2.4-3.5) H 07/06/18 04:00 Albumin/Globulin Ratio 0.7 (1.1-2.2) L 07/06/18 04:00 Amylase 20 Units/L (29-103) L 06/23/18 16:27 Folate 2.5 ng/mL (3.0-16.0) L 06/27/18 11:25 Procalcitonin 107.11 ng/mL (<=0.07) H 06/17/18 16:40 TSH 7.234 mcIU/mL (0.340-5.600) H 06/27/18 11:25 Ur Specific Ruby < 1.005 (1.010-1.025) L 06/30/18 09:34 Urine Blood Moderate (Negative) H 06/30/18 09:34 Ur Leukocyte Esterase Moderate (Negative) H 06/30/18 09:34 Urine Microscopic RBC 3-5 per hpf (0-3) H 06/30/18 09:34 Urine Microscopic WBC 50-100 per hpf (0-3) H 06/30/18 09:34 Urine Bacteria Many per hpf (None-Few) H 06/30/18 09:34 Urine Osmolality 200 mOsm/kg (300-1090) L 06/30/18 09:33 Protein/Creatinin Ratio 1.68 mg/mg (0.00-0.20) H 06/30/18 09:34 Urine Total Protein 52 mg/dL (1-14) H 06/30/18 09:34 Vancomycin Trough 19 mcg/mL (5-10) H 07/05/18 04:00 Urine Opiates Screen Positive ng/mL (Kaqeos=629) H 06/18/18 10:37 U Benzodiazepines Scrn Positive ng/mL (Xyoeaz=459) H 06/18/18 10:37 HSV I DETECTED (Not Detect) A 06/24/18 15:10 - Microbiology Findings Microbiology Findings: Microbiology, Last 48 Hours 07/04/18 07:38 Sputum Culture - Final Aspirate Acinetobacter baumannii complx - Clinical Findings Intake & Output: Intake & Output 07/07/18 07/08/18 07/08/18 23:59 07:59 15:59 Intake Total 2754 / 2754 1602 / 1602 Output Total 1650 / 1650 1700 / 1700 Balance 1104 / 1104 -98 / -98 Weight 110.9 kg - VTE Documentation of Mechanical Device: Intermittent pneumatic compression device Consult Discharge Plan - Plan Referrals: Sheryl Stahl, [employer] REPRESENTATIVE [Primary Care Provider] - <Ludin Barrett - Last Filed: 07/08/18 14:48> Date of Encounter: 07/08/18 Assessment and Plan (1) Acute respiratory failure with hypoxemia Current Visit: Yes Status: Acute (2) Septic shock Current Visit: Yes Status: Acute (3) Systolic heart failure Current Visit: Yes Status: Deleted Qualifiers: Heart failure chronicity: acute on chronic Qualified Code(s): I50.23 - Acute on chronic systolic (congestive) heart failure (4) LUCILA (acute kidney injury) Current Visit: Yes Status: Acute (5) DVT prophylaxis Current Visit: Yes Status: Acute (6) Type 2 diabetes mellitus Current Visit: Yes Status: Chronic Qualifiers: Diabetes mellitus [facility] insulin use: with [facility] use Diabetes mellitus complication status: with unspecified complications Qualified Code(s) : E11.8 - Type 2 diabetes mellitus with unspecified complications; Z79.4 - [facility] (current) use of insulin (7) COPD (chronic obstructive pulmonary disease) Current Visit: Yes Status: Chronic Qualifiers: COPD type: emphysema Emphysema type: unspecified Qualified Code(s): J43.9 - Emphysema, unspecified (8) Thrombocytopenia Current Visit: Yes Status: Resolved Objective PUL Vital signs: Last Vital Signs Temp 100.5 F H 07/08/18 08:00 Pulse 73 07/08/18 14:23 Resp 20 07/08/18 14:23 BP 94/55 07/08/18 14:23 Pulse Ox 94 07/08/18 14:23 Ventilator Settings Ventilator Settings: Ventilator Settings, Last 8 Hours Ventilator Tidal Volume 480 Setting Ventilator Tidal Volume 480 Setting Ventilator Tidal Volume 480 Setting Ventilator Tidal Volume 480 Setting Ventilator Tidal Volume 480 Setting Ventilator Tidal Volume 480 Setting Ventilator Tidal Volume 480 Setting Ventilator Tidal Volume 480 Setting Ventilator Tidal Volume 480 Setting Ventilator Respiratory Rate 16 Setting Ventilator Respiratory Rate 16 Setting Ventilator Respiratory Rate 16 Setting Ventilator Respiratory Rate 16 Setting Ventilator Respiratory Rate 16 Setting Ventilator Respiratory Rate 16 Setting Ventilator Respiratory Rate 16 Setting Ventilator Respiratory Rate 16 Setting Ventilator Respiratory Rate 16 Setting Actual Respiratory Rate 16 Actual Respiratory Rate 16 Actual Respiratory Rate 16 Actual Respiratory Rate 16 Actual Respiratory Rate 23 Actual Respiratory Rate 23 Actual Respiratory Rate 23 Actual Respiratory Rate 26 Actual Respiratory Rate 23 Positive End Expiratory 8 Pressure Positive End Expiratory 8 Pressure Positive End Expiratory 8 Pressure Positive End Expiratory 8 Pressure Positive End Expiratory 8 Pressure Positive End Expiratory 8 Pressure Positive End Expiratory 8 Pressure Positive End Expiratory 10 Pressure Positive End Expiratory 8 Pressure Peak Inspiratory Airway 25 Pressure Peak Inspiratory Airway 25 Pressure Peak Inspiratory Airway 25 Pressure Peak Inspiratory Airway 25 Pressure Peak Inspiratory Airway 27 Pressure Peak Inspiratory Airway 27 Pressure Peak Inspiratory Airway 27 Pressure Peak Inspiratory Airway 19 Pressure Peak Inspiratory Airway 27 Pressure Results - Laboratory Findings CBC and BMP: 07/08/18 03:56 07/08/18 03:56 ABG ABG pH 7.40 pH Units (7.32-7.45) 07/08/18 04:36 ABG pCO2 51 mmHg (35-45) H 07/08/18 04:36 ABG pO2 72 mmHg (85-104) L 07/08/18 04:36 ABG O2 Saturation 94 % (95-98) L 07/08/18 04:36 PT/INR, D-dimer PT 15.1 Seconds (9.4-12.1) H 07/06/18 04:00 D-Dimer 3465 ng/mLFEU (0-500) H 06/18/18 08:08 Abnormal lab findings: Abnormal lab results RBC 2.43 M/mcL (4.19-5.50) L 07/08/18 03:56 Hgb 7.6 g/dL (12.9-16.9) L 07/08/18 03:56 Hct 24.8 % (37.5-50.1) L 07/08/18 03:56 MCV 102.1 fL (83.0-100.0) H 07/08/18 03:56 MCHC 30.6 g/dL (31.6-35.5) L 07/08/18 03:56 RDW 15.6 % (11.5-14.5) H 07/08/18 03:56 Band Neutrophils % 6.0 % (0-4) H 06/27/18 03:00 Metamyelocytes % 2.0 % (0) H 06/27/18 03:00 Myelocytes % 6.0 % (0) H 06/27/18 03:00 Nucleated RBCs/100 WBC 0.1 /100 WBC (0) H 06/28/18 03:30 Reactive Lymphocytes Present (Not Present) A 07/01/18 03:00 Toxic Granulation Present (Not Present) A 06/18/18 03:05 Toxic Vacuolation Present (Not Present) A 06/22/18 03:45 Large Platelets Present (Not Present) A 06/23/18 03:15 Polychromasia 1+ (Not Present) A 06/27/18 03:00 Basophilic Stippling 1+ (Not Present) A 06/26/18 04:00 Anisocytosis 1+ (Not Present) A 06/28/18 03:30 Macrocytosis Present (Not Present) A 06/26/18 04:00 PT 15.1 Seconds (9.4-12.1) H 07/06/18 04:00 APTT 62.8 Seconds (26.0-36.0) H 06/23/18 08:00 Fibrinogen 578 mg/dL (169-393) H 06/18/18 08:08 D-Dimer 3465 ng/mLFEU (0-500) H 06/18/18 08:08 ABG pCO2 51 mmHg (35-45) H 07/08/18 04:36 ABG pO2 72 mmHg (85-104) L 07/08/18 04:36 ABG HCO3 32 mEq/L (21-27) H 07/08/18 04:36 ABG Total CO2 33 mEq/L (20-26) H 07/08/18 04:36 ABG O2 Saturation 94 % (95-98) L 07/08/18 04:36 ABG Base Excess 6 mEq/L (-2 to 3) H 07/08/18 04:36 Sodium 154 mEq/L (136-145) H 07/08/18 03:56 Potassium 3.0 mEq/L (3.5-5.1) L 07/08/18 03:56 Chloride 117 mEq/L (98-107) H 07/08/18 03:56 Carbon Dioxide 30 mEq/L (23-29) H 07/08/18 03:56 BUN 35 mg/dL (6-20) H 07/08/18 03:56 Creatinine 2.31 mg/dL (0.70-1.30) H 07/08/18 03:56 Est GFR ( Amer) 36 (> 60) L 07/08/18 03:56 Est GFR (Non-Af Amer) 30 (> 60) L 07/08/18 03:56 Glucose 228 mg/dL (70-105) H 07/08/18 03:56 POC Glucose 286 mg/dL (70-99) H 07/08/18 11:42 Serum Osmolality 327 mOsm/kg (280-300) H 07/01/18 09:48 Calculated Osmolality 333 (280-300) H 07/08/18 03:56 Venous Ioniz Calcium 1.13 mmol/L (1.15-1.35) L 07/01/18 03:39 Phosphorus 5.0 mg/dL (2.7-4.5) H 07/07/18 04:41 Iron < 10 mcg/dL (65-175) L 07/01/18 03:00 Transferrin 146 mg/dL (203-362) L 07/01/18 03:00 Ferritin 647 ng/mL (20-250) H 07/01/18 03:00 Direct Bilirubin 0.4 mg/dL (0.0-0.2) H 06/23/18 03:15 Troponin I 0.92 ng/mL (< 0.04) H* 06/17/18 22:33 Serum Total Protein 6.3 g/dL (6.4-8.9) L 07/06/18 04:00 Albumin 2.6 g/dL (3.5-5.7) L 07/06/18 04:00 Globulin 3.7 g/dL (2.4-3.5) H 07/06/18 04:00 Albumin/Globulin Ratio 0.7 (1.1-2.2) L 07/06/18 04:00 Amylase 20 Units/L (29-103) L 06/23/18 16:27 Folate 2.5 ng/mL (3.0-16.0) L 06/27/18 11:25 Procalcitonin 107.11 ng/mL (<=0.07) H 06/17/18 16:40 TSH 7.234 mcIU/mL (0.340-5.600) H 06/27/18 11:25 Ur Specific Ruby < 1.005 (1.010-1.025) L 06/30/18 09:34 Urine Blood Moderate (Negative) H 06/30/18 09:34 Ur Leukocyte Esterase Moderate (Negative) H 06/30/18 09:34 Urine Microscopic RBC 3-5 per hpf (0-3) H 06/30/18 09:34 Urine Microscopic WBC 50-100 per hpf (0-3) H 06/30/18 09:34 Urine Bacteria Many per hpf (None-Few) H 06/30/18 09:34 Urine Osmolality 200 mOsm/kg (300-1090) L 06/30/18 09:33 Protein/Creatinin Ratio 1.68 mg/mg (0.00-0.20) H 06/30/18 09:34 Urine Total Protein 52 mg/dL (1-14) H 06/30/18 09:34 Vancomycin Trough 19 mcg/mL (5-10) H 07/05/18 04:00 Urine Opiates Screen Positive ng/mL (Cpslcv=269) H 06/18/18 10:37 U Benzodiazepines Scrn Positive ng/mL (Ygwhyv=629) H 06/18/18 10:37 HSV I DETECTED (Not Detect) A 06/24/18 15:10 - Clinical Findings Intake & Output: Intake & Output 07/07/18 07/08/18 07/08/18 23:59 07:59 15:59 Intake Total 2754 / 2754 1602 / 1602 2367 / 2367 Output Total 1650 / 1650 1700 / 1700 1175 / 1175 Balance 1104 / 1104 -98 / -98 1192 / 1192 Weight 110.9 kg - Attending Attestation - Attending Attestation I saw and evaluated this patient and my medical decision-making was reviewed with the Resident Physician. I agree with the documented findings, disposition and treatment plan as described except to the extent set forth below. We independently had [id number] contact with the patient I spent 32 minutes of Critical Care time with this patient. It involved decision making of high complexity to assess, manipulate, and support vital organ system failure and/or to prevent further life threatening deterioration of the patient's condition. The time involved in the performance of separately reportable procedures was not counted toward critical care time. Patient seen and examined at bedside Labs, radiology, chart personally reviewed. Management was reviewed during multidisciplinary critical care rounds. 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 Pulm: Patient has still some V/Q mismatch has acceptable oxygenation and ventilation A baumanii pneumonia is getting better with current management will do smart care liberation from ventilator Cards: Patient septic shock is resolved. FEN-GI: Diet according to nutrition.Patient has Moderate Non -Severe Protein Calorie Malnutrition. Renal: Patient renal function as improving labs and output reviewed nephrology on board no urgent need of dialysis today. ID: Reviewed broad-spectrum antibiotics to continue antibiotics Heme/Onc: Prophylaxis. Endo: Glucose Monitored Integ/MSK: Skin Care per routine ICU Nursing Protocol . Patient has 2 stage II Buttock ulcers Lines: All lines examined without evidence of infection : Dispo: Critically ill. CODE:Full Code
[2018-07-08] MEDS ORDERED: Potassium Chloride Elixir 20 MEQ/15 ML UDC GTUBE ONE (08:33)
[2018-07-08] MEDS: Norepinephrine 4 MG in D5% in Water 250 ML IVC SCH (09:02)
[2018-07-08] MEDS: Pantoprazole 40 MG VIAL IVP SCH (09:22)
[2018-07-08] MEDS: Chlorhexidine Rinse 15 ML MOUTHWASH MM SCH ×2 (09:22→20:50)
[2018-07-08] MEDS: Nystatin SUSP 5 ML UD.LIQ PO SCH ×4 (09:22→20:50)
[2018-07-08] MEDS: Potassium Chloride Elixir 20 MEQ/15 ML UDC PO SCH (09:22)
[2018-07-08] MEDS: D5% in Water 1,000 ML IVC SCH ×2 (09:23→22:08)
[2018-07-08] MEDS: Acyclovir 750 MG in D5% in Water 250 ML IVPB SCH ×2 (10:52→21:08)
--- NOTE | 2018-07-08 13:57 | EEG/EMG/Oth Biometrics Report ---
EEG Procedure Report Date of procedure: 06/27/18 EEG Procedure: Routine EEG Procedure Note: Routine 21-channel digital EEG was obtained to rule out any seizure activity or focal abnormalities. FINDINGS: Background rhythm during awake stage shows poorly organized, low voltage fast beta activity in the anterior regions. No [id number] discharges or any lateralizing abnormalities are seen. Almost constant EMG artifacts and tremor artifacts are noted making the study suboptimal. Photic stimulation did not produce any abnormalities. Stage II sleep was not observed. . IMPRESSION: Suboptimal study, no clear paroxysmal activities or epileptiform discharges were seen. Prominent beta activity in the anterior regions could be secondary medication effect.
--- NOTE | 2018-07-08 14:17 | Infectious Disease Progress No ---
Date of Encounter: 07/08/18 Time of Encounter: 10:25 - Assessment and Plan (1) Septic shock Current Visit: Yes Status: Acute The patient had 4 SIRS criteria plus lactic acidosis, acute kidney injury, acute encephalopathy, and hypotension requiring vasopressors. Likely secondary to candidemia, UTI, possible HSV encephalitis, and PNA. Improved. Leukocytosis resolved. Febrile overnight with a MAXIMUM TEMPERATURE of 100.5. Tachycardia resolved. Blood cultures obtained 06/17/18 are +2 out of 2 sets for Marisela albicans, nation- sensitive. Repeat blood cultures obtained 06/19/18 are negative 2 sets. Additional blood cultures drawn 07/04/18 are NGTD x 2 sets. (2) Candidemia Current Visit: Yes Status: Resolved Causative organism: Marisela albicans. Source: unclear. CT of the abdomen and pelvis is negative. He has no indwelling lines or catheters. His urine culture is positive for C. albicans. Blood cultures obtained 06/17/18 are +2 out of 2 sets for Marisela albicans, nation- sensitive. Repeat blood cultures obtained 06/19/18 are negative 2 sets. Additional blood cultures 07/04/18 are NGTD x 2 sets. Repeat LFTs normal. Completed 14 days of IV fluconazole. Resolved. Recommend opthalmology to evaluate when the patient stabilizes as it does not appear to have been done yet. (3) Pneumonia Current Visit: Yes Status: Suspected Location: Bilateral lower lobes. Causative organism: Unclear. Consider aspiration since the patient had altered mental status and was recently intubated. CT of the chest showed bilateral lower lobe infiltrates versus atelectasis. The patient does have a large amount of secretions coming from his ET tube. Discussed with the pulmonary team. Concern for pneumonia from their standpoint. MRSA screen completed 06/17/18 is negative. Initial sputum culture negative. Repeat Sputum culture 07/04/18 positive for A. baummannii. S. pneumo and Legionella UAT 06/20/18.--> negative. Repeat CXR 06/23/18 showed mild pulmonary vascular congestion and atelectasis and mild pleural effusion at the right lung base, increased. CT scan of the chest 06/23/18 negative for PNA. CXR 07/01/18 showed stable RLL disease and improved LLL disease. CXR 07/07/18 showed mild pulmonary vascular congestion and mild right pleural effusion. Vanc and Zosyn discontinued 06/25/18 after 9 days. Continue Cefepime 2 grams IV Q12H. Dosing discussed with Leon Miles. CrCl ~29. Duration of treatment depends on the clinical picture. Monitor renal function and for drug toxicity and dose-adjust antibiotics. Qualifiers: Pneumonia type: due to unspecified organism Laterality: bilateral Lung location: lower lobe of lung Qualified Code(s): J18.1 - Lobar pneumonia, unspecified organism (4) UTI (urinary tract infection) Current Visit: Yes Status: Acute Causative organism 06/18/18: C. albicans. Completed 14+ days of fluconazole. Repeat urine culture 07/01/18 grew E. coli, resistant to ampicillin and Unasyn. Likely secondary to jacobo catheter. Continue Cefepime. Switch out jacobo catheter. Duration of treatment depends on the clinical picture. Monitor renal function and for drug toxicity and dose-adjust antibiotics. Qualifiers: Urinary tract infection type: site unspecified Hematuria presence: without hematuria Qualified Code(s): N39.0 - Urinary tract infection, site not specified (5) Encephalopathy Current Visit: Yes Status: Acute Etiology unclear, but likely related to sepsis. Per the patient's , the patient did have any complaints of neck pain, stiffness, or headache. Unable to assess mental status since the patient remains intubated and sedated. CT head negative for intracranial abnormality. 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 LP attempted by the pulm/CC team and IR was unsuccessful. Neurology consulted. Appreciate recommendations. Signed off. Acyclovir stopped by the pulmonary team, re-started 07/04/18. Has completed 14 days of IV acyclovir. Can discontinue at this point. (6) LUCILA (acute kidney injury) Current Visit: Yes Status: Acute Likely multifactorial: sepsis + hypotension + other. CRRT started 06/19/18 and stopped 06/26/18. Creatinine improved. Urine output remains adequate. Nephrology consulted and following. Continue to trend. Dose-adjust medications. (7) Lactic acidosis Current Visit: Yes Status: Resolved Likely secondary to sepsis. Resolved. (8) Thrombocytopenia Current Visit: Yes Status: Resolved Likely secondary to sepsis. LFTs abnormal on admission. Repeat LFTs normal. Resolved Continue to trend. No acute bleeding noted on exam. Further workup and management per the primary team. (9) Acute respiratory failure with hypoxemia Current Visit: Yes Status: Acute Likely secondary to PNA vs. pulmonary edema. Extubated 07/01/18. Re-intubated 07/04/18. Management per the pulmonary team. (10) Hypokalemia Current Visit: Yes Status: Resolved Resolved. (11) Elevated troponin Current Visit: Yes Status: Acute Management per the primary team. (12) Type 2 diabetes mellitus Current Visit: Yes Status: Chronic Recommend aggressive glucose monitoring and control. Management per the primary team. 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 PCR positive for HSV 1. New lesion noted to the right nasolabial fold: HSV vs. other. Continue acyclovir for now. (day 14) Discontinue acyclovir after last dose today. (15) Sinusitis Current Visit: Yes Status: Resolved CT of the head 06/23/18 showed sinusitis of the bilateral sphenoid and ethmoid sinuses. Causative organism unclear. Treated with 9 days of Vanc and Zosyn. Qualifiers: Sinusitis location: unspecified location Chronicity: acute Recurrence: non-recurrent Qualified Code(s): J01.90 - Acute sinusitis, unspecified - Subjective Interval history: Patient seen and examined. Febrile overnight. Tachycardia resolved. WBC has normalized. Patient tolerating tube feeds and free water per nursing. Stools are loose, but do not look like C. diff. Patient is awake, attempting to pull the ET tube. Does not really follow commands. Infect Dis PN-Objective Data - Labs CBC & Chem 7: 07/09/18 05:00 07/09/18 05:00 Labs: Laboratory Results - last 24 hr 07/07/18 07/07/18 07/07/18 16:00 16:06 19:49 WBC RBC Hgb Hct MCV MCH MCHC RDW Plt Count MPV Immature Gran % Seg Neutrophils % Lymphocytes % Monocytes % Eosinophils % Basophils % Neutrophils # Lymphocytes # Monocytes # Eosinophils # Basophils # Sample Site ABG pH ABG pCO2 ABG pO2 ABG HCO3 ABG Total CO2 ABG O2 Saturation ABG Base Excess Michael Test Respiration Rate O2 Delivery Device Blood Gas Modality Inspired O2 Tidal Volume PEEP Sodium 156 H Potassium 3.2 L Chloride 118 H Carbon Dioxide 30 H BUN 34 H Creatinine 2.50 H Est GFR ( Amer) 33 L Est GFR (Non-Af Amer) 27 L BUN/Creatinine Ratio 14 Glucose 209 H POC Glucose 187 H 221 H Calculated Osmolality 336 H Calcium 9.0 07/07/18 07/08/18 07/08/18 23:32 03:56 03:56 WBC 5.7 RBC 2.43 L Hgb 7.6 L Hct 24.8 L MCV 102.1 H MCH 31.3 MCHC 30.6 L RDW 15.6 H Plt Count 140 MPV 12.3 Immature Gran % 0.4 Seg Neutrophils % 61.7 Lymphocytes % 22.0 Monocytes % 10.7 Eosinophils % 4.7 Basophils % 0.5 Neutrophils # 3.5 Lymphocytes # 1.3 Monocytes # 0.6 Eosinophils # 0.3 Basophils # 0.0 Sample Site ABG pH ABG pCO2 ABG pO2 ABG HCO3 ABG Total CO2 ABG O2 Saturation ABG Base Excess Michael Test Respiration Rate O2 Delivery Device Blood Gas Modality Inspired O2 Tidal Volume PEEP Sodium 154 H Potassium 3.0 L Chloride 117 H Carbon Dioxide 30 H BUN 35 H Creatinine 2.31 H Est GFR ( Amer) 36 L Est GFR (Non-Af Amer) 30 L BUN/Creatinine Ratio 15 Glucose 228 H POC Glucose 232 H Calculated Osmolality 333 H Calcium 8.6 07/08/18 07/08/18 07/08/18 04:07 04:36 08:16 WBC RBC Hgb Hct MCV MCH MCHC RDW Plt Count MPV Immature Gran % Seg Neutrophils % Lymphocytes % Monocytes % Eosinophils % Basophils % Neutrophils # Lymphocytes # Monocytes # Eosinophils # Basophils # Sample Site R Radial ABG pH 7.40 ABG pCO2 51 H ABG pO2 72 L ABG HCO3 32 H ABG Total CO2 33 H ABG O2 Saturation 94 L ABG Base Excess 6 H Michael Test N/A Respiration Rate 16 O2 Delivery Device Adult Vent Blood Gas Modality VC Inspired O2 45.0 Tidal Volume 480 PEEP 10 Sodium Potassium Chloride Carbon Dioxide BUN Creatinine Est GFR ( Amer) Est GFR (Non-Af Amer) BUN/Creatinine Ratio Glucose POC Glucose 214 H 268 H Calculated Osmolality Calcium 07/08/18 11:42 WBC RBC Hgb Hct MCV MCH MCHC RDW Plt Count MPV Immature Gran % Seg Neutrophils % Lymphocytes % Monocytes % Eosinophils % Basophils % Neutrophils # Lymphocytes # Monocytes # Eosinophils # Basophils # Sample Site ABG pH ABG pCO2 ABG pO2 ABG HCO3 ABG Total CO2 ABG O2 Saturation ABG Base Excess Michael Test Respiration Rate O2 Delivery Device Blood Gas Modality Inspired O2 Tidal Volume PEEP Sodium Potassium Chloride Carbon Dioxide BUN Creatinine Est GFR ( Amer) Est GFR (Non-Af Amer) BUN/Creatinine Ratio Glucose POC Glucose 286 H Calculated Osmolality Calcium Cultures: Cultures 07/04/18 07:38 Sputum Culture - Final Aspirate Acinetobacter baumannii complx 07/04/18 11:59 Blood Culture - Preliminary Peripheral Venipuncture Culture is incubating and being continuously monitored for growth. Final report to follow. 07/04/18 10:34 Blood Culture - Preliminary Peripheral Venipuncture Culture is incubating and being continuously monitored for growth. Final report to follow. 07/01/18 09:03 Urine Culture - Final Urine,Catheterized Escherichia coli 06/24/18 11:35 Blood Culture - Final Peripheral Venipuncture No growth. Final report. 06/24/18 11:35 Blood Culture - Final Peripheral Venipuncture No growth. Final report. 06/19/18 12:46 Blood Culture - Final Peripheral Venipuncture No growth. Final report. 06/19/18 12:46 Blood Culture - Final Peripheral Venipuncture No growth. Final report. 06/18/18 20:45 Sputum Culture - Final Sputum 06/20/18 11:30 Legionella Antigen - Final Urine,[place] Streptococcus pneumoniae Antigen (M - Final Serology 07/05/18 07/01/18 06/30/18 Range/Units 17:50 09:03 09:34 Urine Color (Yellow) Urine Clarity (Clear) Urine pH (5.0-8.0) pH Units Ur Specific [place] (1.010-1.025) Urine Protein (Neg-Trace) mg/dL Urine Glucose (UA) (Normal) mg/dL Urine Ketones (Negative) mg/dL Urine Blood (Negative) Urine Nitrite (Negative) Urine Bilirubin (Negative) Urine Urobilinogen (Normal) mg/dL Ur Leukocyte Esterase (Negative) Urine Microscopic RBC (0-3) per hpf Urine Microscopic WBC (0-3) per hpf Ur Eosinophil Smear 0 (None Seen) % Ur Squamous Epith Cells (None-Few) per lpf Urine Bacteria (None-Few) per hpf Hyaline Casts (None-Few) per lpf Urine Osmolality (300-1090) mOsm/kg Urine Creatinine 31 mg/dL Protein/Creatinin Ratio 1.68 H (0.00-0.20) mg/mg Urine Sodium 40.6 mEq/L Urine Potassium mEq/L Urine Chloride mEq/L Urine Total Protein 52 H (1-14) mg/dL Nasal Screen MRSA (PCR) Negative (Negative) Chlamy pneumoniae PCR (Not Detect) Adenovirus (PCR) (Not Detect) B. pertussis DNA (PCR) (Not Detect) B.parapertussis DNA PCR (Not Detect) Coronavirus OC43 (PCR) (Not Detect) Coronavirus HKU1 (PCR) (Not Detect) Coronavirus 229E (PCR) (Not Detect) Coronavirus NL63 (PCR) (Not Detect) Hep Bs Antigen (Nonreactive) Hep Bs Antibody mIU/mL Herpes Simplex Source HSV I (Not Detect) HSV II (Not Detect) HIV Ag/Ab Combo Qual (Nonreactive) Human Metapneumovir PCR (Not Detect) Influenza A (H1) PCR (Not Detect) Influ A (H1N1/09) PCR (Not Detect) Influenza A (H3) PCR (Not Detect) Influenza A Untype (PCR) (Not Detect) Influenza Type B (PCR) (Not Detect) M.pneumoniae DNA (PCR) (Not Detect) Parainfluenza 1 (PCR) (Not Detect) Parainfluenza 2 (PCR) (Not Detect) Parainfluenza 3 (PCR) (Not Detect) Parainfluenza 4 (PCR) (Not Detect) RSV (PCR) (Not Detect) Entero/Rhino (PCR) (Not Detect) 06/30/18 06/30/18 06/24/18 Range/Units 09:34 09:33 15:10 Urine Color Yellow (Yellow) Urine Clarity Clear (Clear) Urine pH 7.0 (5.0-8.0) pH Units Ur Specific [place] < 1.005 L (1.010-1.025) Urine Protein Trace (Neg-Trace) mg/dL Urine Glucose (UA) Normal (Normal) mg/dL Urine Ketones Negative (Negative) mg/dL Urine Blood Moderate H (Negative) Urine Nitrite Negative (Negative) Urine Bilirubin Negative (Negative) Urine Urobilinogen Normal (Normal) mg/dL Ur Leukocyte Esterase Moderate H (Negative) Urine Microscopic RBC 3-5 H (0-3) per hpf Urine Microscopic WBC 50-100 H (0-3) per hpf Ur Eosinophil Smear (None Seen) % Ur Squamous Epith Cells None Seen (None-Few) per lpf Urine Bacteria Many H (None-Few) per hpf Hyaline Casts None Seen (None-Few) per lpf Urine Osmolality 200 L (300-1090) mOsm/kg Urine Creatinine mg/dL Protein/Creatinin Ratio (0.00-0.20) mg/mg Urine Sodium mEq/L Urine Potassium mEq/L Urine Chloride mEq/L Urine Total Protein (1-14) mg/dL Nasal Screen MRSA (PCR) (Negative) Chlamy pneumoniae PCR (Not Detect) Adenovirus (PCR) (Not Detect) B. pertussis DNA (PCR) (Not Detect) B.parapertussis DNA PCR (Not Detect) Coronavirus OC43 (PCR) (Not Detect) Coronavirus HKU1 (PCR) (Not Detect) Coronavirus 229E (PCR) (Not Detect) Coronavirus NL63 (PCR) (Not Detect) Hep Bs Antigen (Nonreactive) Hep Bs Antibody mIU/mL Herpes Simplex Source [place] HSV I DETECTED A (Not Detect) HSV II Not Detected (Not Detect) HIV Ag/Ab Combo Qual (Nonreactive) Human Metapneumovir PCR (Not Detect) Influenza A (H1) PCR (Not Detect) Influ A (H1N1/09) PCR (Not Detect) Influenza A (H3) PCR (Not Detect) Influenza A Untype (PCR) (Not Detect) Influenza Type B (PCR) (Not Detect) M.pneumoniae DNA (PCR) (Not Detect) Parainfluenza 1 (PCR) (Not Detect) Parainfluenza 2 (PCR) (Not Detect) Parainfluenza 3 (PCR) (Not Detect) Parainfluenza 4 (PCR) (Not Detect) RSV (PCR) (Not Detect) Entero/Rhino (PCR) (Not Detect) 06/24/18 06/23/18 06/23/18 Range/Units 11:15 20:00 08:10 Urine Color Yellow (Yellow) Urine Clarity Hazy (Clear) Urine pH 6.0 (5.0-8.0) pH Units Ur Specific [place] 1.013 (1.010-1.025) Urine Protein 30 H (Neg-Trace) mg/dL Urine Glucose (UA) Normal (Normal) mg/dL Urine Ketones Negative (Negative) mg/dL Urine Blood Moderate H (Negative) Urine Nitrite Negative (Negative) Urine Bilirubin Small H (Negative) Urine Urobilinogen Normal (Normal) mg/dL Ur Leukocyte Esterase Moderate H (Negative) Urine Microscopic RBC 3-5 H (0-3) per hpf Urine Microscopic WBC 50-100 H (0-3) per hpf Ur Eosinophil Smear (None Seen) % Ur Squamous Epith Cells Many H (None-Few) per lpf Urine Bacteria None Seen (None-Few) per hpf Hyaline Casts None Seen (None-Few) per lpf Urine Osmolality (300-1090) mOsm/kg Urine Creatinine mg/dL Protein/Creatinin Ratio (0.00-0.20) mg/mg Urine Sodium mEq/L Urine Potassium mEq/L Urine Chloride mEq/L Urine Total Protein (1-14) mg/dL Nasal Screen MRSA (PCR) (Negative) Chlamy pneumoniae PCR (Not Detect) Adenovirus (PCR) (Not Detect) B. pertussis DNA (PCR) (Not Detect) B.parapertussis DNA PCR (Not Detect) Coronavirus OC43 (PCR) (Not Detect) Coronavirus HKU1 (PCR) (Not Detect) Coronavirus 229E (PCR) (Not Detect) Coronavirus NL63 (PCR) (Not Detect) Hep Bs Antigen Nonreactive (Nonreactive) Hep Bs Antibody 0.00 mIU/mL Herpes Simplex Source HSV I (Not Detect) HSV II (Not Detect) HIV Ag/Ab Combo Qual Nonreactive (Nonreactive) Human Metapneumovir PCR (Not Detect) Influenza A (H1) PCR (Not Detect) Influ A (H1N1/09) PCR (Not Detect) Influenza A (H3) PCR (Not Detect) Influenza A Untype (PCR) (Not Detect) Influenza Type B (PCR) (Not Detect) M.pneumoniae DNA (PCR) (Not Detect) Parainfluenza 1 (PCR) (Not Detect) Parainfluenza 2 (PCR) (Not Detect) Parainfluenza 3 (PCR) (Not Detect) Parainfluenza 4 (PCR) (Not Detect) RSV (PCR) (Not Detect) Entero/Rhino (PCR) (Not Detect) 06/20/18 06/18/18 06/18/18 Range/Units 11:30 10:28 10:28 Urine Color (Yellow) Urine Clarity (Clear) Urine pH (5.0-8.0) pH Units Ur Specific [place] (1.010-1.025) Urine Protein (Neg-Trace) mg/dL Urine Glucose (UA) (Normal) mg/dL Urine Ketones (Negative) mg/dL Urine Blood (Negative) Urine Nitrite (Negative) Urine Bilirubin (Negative) Urine Urobilinogen (Normal) mg/dL Ur Leukocyte Esterase (Negative) Urine Microscopic RBC (0-3) per hpf Urine Microscopic WBC (0-3) per hpf Ur Eosinophil Smear (None Seen) % Ur Squamous Epith Cells (None-Few) per lpf Urine Bacteria (None-Few) per hpf Hyaline Casts (None-Few) per lpf Urine Osmolality 343 (300-1090) mOsm/kg Urine Creatinine mg/dL Protein/Creatinin Ratio (0.00-0.20) mg/mg Urine Sodium mEq/L Urine Potassium 36.5 mEq/L Urine Chloride mEq/L Urine Total Protein (1-14) mg/dL Nasal Screen MRSA (PCR) (Negative) Chlamy pneumoniae PCR Not Detected (Not Detect) Adenovirus (PCR) Not Detected (Not Detect) B. pertussis DNA (PCR) Not Detected (Not Detect) B.parapertussis DNA PCR Not Detected (Not Detect) Coronavirus OC43 (PCR) Not Detected (Not Detect) Coronavirus HKU1 (PCR) Not Detected (Not Detect) Coronavirus 229E (PCR) Not Detected (Not Detect) Coronavirus NL63 (PCR) Not Detected (Not Detect) Hep Bs Antigen (Nonreactive) Hep Bs Antibody mIU/mL Herpes Simplex Source HSV I (Not Detect) HSV II (Not Detect) HIV Ag/Ab Combo Qual (Nonreactive) Human Metapneumovir PCR Not Detected (Not Detect) Influenza A (H1) PCR Not Detected (Not Detect) Influ A (H1N1/09) PCR Not Detected (Not Detect) Influenza A (H3) PCR Not Detected (Not Detect) Influenza A Untype (PCR) Not Detected (Not Detect) Influenza Type B (PCR) Not Detected (Not Detect) M.pneumoniae DNA (PCR) Not Detected (Not Detect) Parainfluenza 1 (PCR) Not Detected (Not Detect) Parainfluenza 2 (PCR) Not Detected (Not Detect) Parainfluenza 3 (PCR) Not Detected (Not Detect) Parainfluenza 4 (PCR) Not Detected (Not Detect) RSV (PCR) Not Detected (Not Detect) Entero/Rhino (PCR) Not Detected (Not Detect) 06/17/18 06/17/18 06/17/18 Range/Units 18:15 11:56 11:30 Urine Color (Yellow) Urine Clarity (Clear) Urine pH (5.0-8.0) pH Units Ur Specific [place] (1.010-1.025) Urine Protein (Neg-Trace) mg/dL Urine Glucose (UA) (Normal) mg/dL Urine Ketones (Negative) mg/dL Urine Blood (Negative) Urine Nitrite (Negative) Urine Bilirubin (Negative) Urine Urobilinogen (Normal) mg/dL Ur Leukocyte Esterase (Negative) Urine Microscopic RBC (0-3) per hpf Urine Microscopic WBC (0-3) per hpf Ur Eosinophil Smear (None Seen) % Ur Squamous Epith Cells (None-Few) per lpf Urine Bacteria (None-Few) per hpf Hyaline Casts (None-Few) per lpf Urine Osmolality (300-1090) mOsm/kg Urine Creatinine mg/dL Protein/Creatinin Ratio (0.00-0.20) mg/mg Urine Sodium 128.8 mEq/L Urine Potassium 7.5 mEq/L Urine Chloride 135 mEq/L Urine Total Protein (1-14) mg/dL Nasal Screen MRSA (PCR) Negative (Negative) Chlamy pneumoniae PCR Not Detected (Not Detect) Adenovirus (PCR) Not Detected (Not Detect) B. pertussis DNA (PCR) Not Detected (Not Detect) B.parapertussis DNA PCR Not Detected (Not Detect) Coronavirus OC43 (PCR) Not Detected (Not Detect) Coronavirus HKU1 (PCR) Not Detected (Not Detect) Coronavirus 229E (PCR) Not Detected (Not Detect) Coronavirus NL63 (PCR) Not Detected (Not Detect) Hep Bs Antigen (Nonreactive) Hep Bs Antibody mIU/mL Herpes Simplex Source HSV I (Not Detect) HSV II (Not Detect) HIV Ag/Ab Combo Qual (Nonreactive) Human Metapneumovir PCR Not Detected (Not Detect) Influenza A (H1) PCR Not Detected (Not Detect) Influ A (H1N1/09) PCR Not Detected (Not Detect) Influenza A (H3) PCR Not Detected (Not Detect) Influenza A Untype (PCR) Not Detected (Not Detect) Influenza Type B (PCR) Not Detected (Not Detect) M.pneumoniae DNA (PCR) Not Detected (Not Detect) Parainfluenza 1 (PCR) Not Detected (Not Detect) Parainfluenza 2 (PCR) Not Detected (Not Detect) Parainfluenza 3 (PCR) Not Detected (Not Detect) Parainfluenza 4 (PCR) Not Detected (Not Detect) RSV (PCR) Not Detected (Not Detect) Entero/Rhino (PCR) Not Detected (Not Detect) - Impressions Impressions Chest X-Ray 07/08/18 04:00 IMPRESSION: Stable life support device positioning, as above. Increased lung expansion with corresponding decrease in left basilar atelectasis. Persistent right effusion, basilar opacities and background edema. D/ / Celio Simon / Celio Simon Interpreting Provider: Celio Simon Exam - Constitutional Vitals: Temp Pulse Resp BP Pulse Ox 100.5 F H 81 20 119/73 95 07/08/18 08:00 07/08/18 13:00 07/08/18 13:00 07/08/18 13:00 07/08/18 13:00 General appearance: cooperative, no acute distress, obese - Head Head exam: Present: atraumatic, normal inspection, normocephalic - Eye Eye exam: Present: EOMI, normal appearance, PERRL Pupils: Present: normal accommodation - ENT ENT exam: Present: mucous membranes moist - Neck Neck exam: Present: normal inspection Additional comments: Temporary dialysis catheter noted to the right neck with transparent dressing clean, dry, and intact. - Respiratory Respiratory exam: Present: CTAB. Absent: rales, respiratory distress, rhonchi, wheezes - Cardiovascular Cardiovascular exam: Present: RRR, +S1, +S2 - GI/Abdominal GI/Abdominal exam: Present: distended (Obese), normal bowel sounds, soft. Absent: tenderness Additional comments: OG tube noted with tube feeds infusing at goal. Jacobo catheter noted to be draining clear urine urine. - Extremities Exam Extremities exam: Present: normal inspection. Absent: joint swelling, pedal edema, tenderness - Neurological Exam Neurological exam: Present: alert, altered - Skin Skin exam: Present: dry, intact, normal color, warm - VTE Documentation of Mechanical Device: Intermittent pneumatic compression device Consult Discharge Plan - Plan Referrals: Sheryl Stahl, DELIVERER MERCHANDISE [Primary Care Provider] - - Attending Attestation I examined this patient and my medical decision-making was reviewed with the Resident Physician. I agree with the documented findings, disposition and treatment plan as described except to the extent set forth below.
--- NOTE | 2018-07-08 14:57 | Nephrology Progress Note ---
Date of Encounter: 07/08/18 Time of Encounter: 08:45 - Assessment and Plan (1) LUCILA (acute kidney injury) Current Visit: Yes Status: Acute Polyuric LUCILA, urine output remains at about 5L per day Serum creatinine continues to decrease, 2.31 today down from 2.5 Patient does appear dry at this time, has wrinkles on his skin and dry mucous membranes He continues to have hypernatremia consistent with loss of free water Plan: -No indication for acute hemodialysis at this time -Serum creatinine likely in response to persistent hypovolemia with fluid deficit of 6.5L -Recommend 4-4.5 L free water Per OG at rate of 500mL every 4 hours +100 mL D5W per hour (2) Hypernatremia Current Visit: Yes Status: Acute Suspected diabetes insipidus given duration of polyneuropathies He now will have OG tube as he has been intubated again due to declining respiratory status Recommend 500mL free water q4h at this time, increase D5W to 100mL/hr Consider DDAVP tomorrow (3) Acute respiratory failure with hypoxemia Current Visit: Yes Status: Acute Patient required intubation due to worsening respiratory status Management per critical care team (4) Anemia Current Visit: Yes Status: Acute Severe iron deficiency anemia Transfusion parameters per primary team Qualifiers: Anemia type: iron deficiency Iron deficiency anemia type: unspecified iron deficiency Qualified Code(s): D50.9 - Iron deficiency anemia, unspecified Subjective Principal diagnosis: septic shock Interval history: The patient remains intubated at this time but is also very alert. He continues to have significant urine output. Objective - Vital Signs Vital signs: Vital Signs Temp Pulse Resp BP Pulse Ox 07/08/18 14:23 73 20 94/55 94 07/08/18 13:00 81 20 119/73 07/08/18 12:00 74 20 98/56 07/08/18 11:34 17 98/55 93 07/08/18 11:00 86 20 120/74 07/08/18 10:16 93 07/08/18 10:05 92 19 132/96 07/08/18 10:00 96 20 132/96 95 07/08/18 09:31 19 154/106 07/08/18 09:00 96 19 134/108 07/08/18 08:00 100.5 F H 93 19 156/90 07/08/18 07:29 23 147/106 94 07/08/18 07:00 113 19 147/106 95 07/08/18 06:00 92 19 156/84 94 07/08/18 05:03 17 129/77 92 07/08/18 05:00 71 17 129/77 93 07/08/18 04:17 91 07/08/18 04:00 98.7 F 90 18 122/73 95 07/08/18 03:37 21 130/77 97 07/08/18 03:00 81 18 129/84 95 07/08/18 02:00 73 17 116/63 92 07/08/18 01:10 17 145/83 95 07/08/18 01:00 132 22 164/90 96 07/08/18 00:32 93 07/08/18 00:00 98 18 149/92 96 07/07/18 23:18 16 119/70 97 07/07/18 23:00 99.6 F 122 22 133/97 96 07/07/18 22:00 131 18 126/96 96 07/07/18 21:41 16 89/53 92 07/07/18 21:00 95 16 121/69 91 07/07/18 20:00 99.4 F 110 20 138/81 96 07/07/18 19:41 106 07/07/18 19:37 18 143/84 95 07/07/18 19:00 106 18 130/85 94 07/07/18 18:05 16 146/89 93 07/07/18 18:00 85 18 97/66 98 07/07/18 17:10 16 146/89 93 07/07/18 17:00 97 16 122/70 95 07/07/18 16:13 107 18 146/89 93 07/07/18 16:00 107 18 146/89 93 07/07/18 15:40 120 07/07/18 15:35 16 136/87 93 07/07/18 15:00 98.5 F 114 18 132/87 95 Intake and Output 07/07/18 07/08/18 07/08/18 23:59 07:59 15:59 Intake Total 2754 / 2754 1602 / 1602 2367 / 2367 Output Total 1650 / 1650 1700 / 1700 1175 / 1175 Balance 1104 / 1104 -98 / -98 1192 / 1192 Intake: IV Fluids 1535 / 1535 270 / 270 1200 / 1200 Dextrose 5% 1,000 ML @ 70 mls/ 1000 / 1000 1000 / 1000 hr IVC .[id number] NADIA Rx#: [id number] PRECEDEX Premix 400 mcg In 100 200 / 200 200 / 200 200 / 200 ml @ 0.2 MCG/KG/HR 5.45 mls/hr IVC .[id number] NADIA Rx#:[id number] FentaNYL (PF) 2,500 MCG In 50 / 50 50 / 50 Empty Bag 1 Each @ 50 MCG/HR 1 mls/hr IVC CONT NADIA Rx#: [id number] Maxipime 2,000 MG In Water for 20 / 20 20 / 20 inj. (sterile) 20 ML @ 300 mls/ hr IVP Q12HR NADIA Rx#:[id number] Zovirax 750 MG In Dextrose 5% 265 / 265 250 ML @ 265 mls/hr IVPB Q12H NADIA Rx#:[id number] Tube Feeding 419 / 419 532 / 532 167 / 167 Free Water 800 / 800 800 / 800 Free Water Intake Amount 1000 / 1000 Output: Catheter 1650 / 1650 1700 / 1700 1175 / 1175 Other: Weight 110.9 kg Blood Glucose* 187 214 286 Patient Weight 07/08/18 23:59 Weight 110.9 kg - General Appearance Exam: Gen: Vitals noted. No acute distress. Sedated on Mechanical ventilation. HEENT: Normocephalic, atraumatic. Dry mucous membranes. Neck: Supple. No adenopathy. Right internal jugular temporary hemodialysis catheter in place with no erythema surrounding Cardiac: RRR, no murmur, +S1/S2 Pulmonary: Clear to auscultation bilaterally, diminished in the right lung base Abdomen: soft, nontender, no guarding Extremities: 2+ bilateral lower extremity edema, nontender calf, no cyanosis or clubbing Neuro: Patient has been extubated and is largely off sedation. Follows commands. - Lab 07/08/18 03:56 07/08/18 03:56 Most recent lab results ABG pH 7.40 pH Units (7.32-7.45) 07/08/18 04:36 ABG pCO2 51 mmHg (35-45) H 07/08/18 04:36 ABG pO2 72 mmHg (85-104) L 07/08/18 04:36 ABG HCO3 32 mEq/L (21-27) H 07/08/18 04:36 ABG O2 Saturation 94 % (95-98) L 07/08/18 04:36 Calcium 8.6 mg/dL (8.6-10.3) 07/08/18 03:56 Phosphorus 5.0 mg/dL (2.7-4.5) H 07/07/18 04:41 Magnesium 1.7 mg/dL (1.6-2.6) 07/07/18 04:41 Urine Creatinine 31 mg/dL 06/30/18 09:34 Urine Sodium 40.6 mEq/L 06/30/18 09:34 Urine Total Protein 52 mg/dL (1-14) H 06/30/18 09:34 - VTE Documentation of Mechanical Device: Intermittent pneumatic compression device Consult Discharge Plan - Plan Referrals: Sheryl Stahl, [employer] [Primary Care Provider] -
[2018-07-08] MEDS: Scopolamine Patch 1.5 MG PATCH.TD72 TD SCH (15:45)
[2018-07-08] MEDS: Insulin Human Regular 100 UNIT in 0.9 % Sodium Chloride 100 ML IVC SCH (16:07)
[2018-07-09] MEDS: Artificial Tears SOLN 15 ML BOTTLE BOTH EYES SCH ×7 (00:43→23:48)
[2018-07-09 04:33] LABS: ABG Base Excess 5 mEq/L (-2 to 3); ABG HCO3 31 mEq/L (21-27); ABG Oxygen Saturation 89 % (95-98); ABG PCO2 52 mmHg (35-45); ABG PH 7.38 pH Units (7.32-7.45); ABG PO2 58 mmHg (85-104); ABG TCO2 33 mEq/L (20-26); Blood Gas Modality VC; Blood Gas PEEP 5 cm H2O; Blood Gas Respiration Rate 16; Blood Gas VT 460 cc
[2018-07-09 05:22] LABS: Basophils % 0.6 %; Eosinophils # 0.3 K/mcL (0.0-0.6); Eosinophils % 4.3 %; Hematocrit 24.4 % (37.5-50.1); Hemoglobin 7.5 g/dL (12.9-16.9); Immature Granulocytes % 0.3 % (0-4); Lymphocytes # 2.1 K/mcL (0.6-4.6); Lymphocytes % 31.4 %; Mean Corpuscular HGB Conc 30.7 g/dL (31.6-35.5); Mean Corpuscular Hemoglobin 30.9 pg (28.0-33.3); Mean Corpuscular Volume 100.4 fL (83.0-100.0); Mean Platelet Volume 11.8 fL (9.4-12.4); Monocytes # 0.5 K/mcL (0.0-1.3); Monocytes % 7.7 %; Neutrophils # 3.8 K/mcL (1.6-8.9); Platelet Count 151 K/mcL (140-400); Red Blood Count 2.43 M/mcL (4.19-5.50); Red Cell Distribution Width 15.5 % (11.5-14.5); Segmented Neutrophils % 55.7 %
[2018-07-09] MEDS: Cefepime HCl 2,000 MG in Water for inj. (sterile) 20 ML 20 ML IVP SCH ×2 (05:29→17:38)
[2018-07-09] MEDS: *HR* Heparin 5,000 UNIT/ML VIAL SQ SCH ×2 (05:29→17:40)
[2018-07-09] MEDS: FentaNYL (PF) 2,500 MCG in EMPTY BAG 1 EACH IVC SCH (05:30)
[2018-07-09 05:45] LABS: Calcium 8.8 mg/dL (8.6-10.3); Magnesium 1.5 mg/dL (1.6-2.6); Phosphorous 4.6 mg/dL (2.7-4.5); Potassium 3.1 mEq/L (3.5-5.1)
[2018-07-09] MEDS: Dexmedetomidine HCl 400 MCG/100 ML MLS IVC SCH ×4 (06:35→22:11)
[2018-07-09] MEDS ORDERED: Potassium Chloride Elixir 20 MEQ/15 ML UDC GTUBE ONE (07:01)
[2018-07-09] MEDS ORDERED: Magnesium Oxide 400 MG TABLET PO ONE (07:02)
[2018-07-09] MEDS: Pantoprazole 40 MG VIAL IVP SCH (08:22)
[2018-07-09] MEDS: Potassium Chloride Elixir 20 MEQ/15 ML UDC PO SCH (08:22)
[2018-07-09] MEDS: Chlorhexidine Rinse 15 ML MOUTHWASH MM SCH ×2 (08:22→20:46)
[2018-07-09] MEDS: Nystatin SUSP 5 ML UD.LIQ PO SCH ×4 (08:22→20:46)
--- NOTE | 2018-07-09 08:44 | Pulmonology Progress Note ---
<Bonnie Cummins E - Last Filed: 07/09/18 11:07> Date of Encounter: 07/09/18 Time of Encounter: 08:42 Assessment and Plan (1) Septic shock Current Visit: Yes Status: Acute sepsis suspected secondary to karo fungemia. Acyclovir restarted 07/04/18 to to new lesion on right upper lip/nasolabial fold area and continued encephalopathy, this is stopped today. Urine shows e.coli on urine culture from 07/01/18. Cefepime for acinitobacter positive sputum culture. (2) Acute respiratory failure with hypoxemia Current Visit: Yes Status: Acute Patient was extubated on 07/01/18 and put on Bipap, had to be reintubated 07/02/18 due to increased respiratory work, respiratory distress, and worsening encephalopathy. Will continue to monitor respiratory status. Will start smart care protocol, this was discontinued after a few hours today. (3) Pneumonia Current Visit: Yes Status: Suspected Pneumonia suspected to do Temperature increase, heart rate increase, worsening breath sounds on exam, and possibly worsened CXR as compared to yesterday. Patient on cefepime per ID Sputum culture positive for acinitobacter Qualifiers: Pneumonia type: due to unspecified organism Laterality: bilateral Lung location: lower lobe of lung Qualified Code(s): J18.1 - Lobar pneumonia, unspecified organism (4) Oral lesion Current Visit: Yes Status: Acute Noted on tongue PCR positive for HSV1 Acyclovir stopped 07/02/18 new lesion noted on exam 07/04/18 above right lip in naso/labial fold area Acyclovir restarted 07/04/18 (5) COPD (chronic obstructive pulmonary disease) Current Visit: Yes Status: Chronic Patient extubated and on bipap on 07/01/18, reintubated 07/02/18 due to increased work of respiration, respiratory distress, and worsening encephalopathy. Continue to monitor We will start care protocol Qualifiers: COPD type: emphysema Emphysema type: unspecified Qualified Code(s): J43.9 - Emphysema, unspecified (6) LUCILA (acute kidney injury) Current Visit: Yes Status: Acute Nephrology following. Patient on intermittent dialysis. Hypernatreima with free water deficit possibly due to polyuric phase of renal recovery, will continue to monitor Urine output yesterday 5725 mL started on d5% dextrose 70mls/hour Starting a desmopressin test for DI (7) Hypocalcemia Current Visit: Yes Status: Resolved Continue to monitor. Calcium today at 8.7. Replace if necessary (8) Hypernatremia Current Visit: Yes Status: Acute Nephrology on board Possibly due to polyuric phase of renal recovery D5% 70mls/hr Continue sodium checks and monitoring neurologic status (9) Hypokalemia Current Visit: Yes Status: Resolved K+ 3.1 today. HAS been given 80 units Potassium Chloride elixor. Continue to monitor and replace as necessary (10) Encephalopathy Current Visit: Yes Status: Acute Patient was more alert this morning able to follow simple commands, and head when asked if he was feeling a little better today. Neuro on board, believed to be from toxic metabolic causes. Fluconazole stopped 07/03/18, acyclovir stopped on 06/01/19 Acyclovir restarted 07/04/18 after exam showed new lesion above right upper lip in nasolabial fold area. (11) Thrombocytopenia Current Visit: Yes Status: Resolved Platelets 151. Continue to monitor. 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 No heparin was in use in the lines which could have caused the excessive clotting on dialysis filter. Also, platelet count could have been decreased do to septic shock. Heparin was held over the weekend, restarted 06/30/18 due to platelets staying steady, today platelets 128 (13) Type 2 diabetes mellitus Current Visit: Yes Status: Chronic Was on IV insulin drip overnight We will continue to monitor Qualifiers: Diabetes mellitus alf insulin use: with collector of port use Diabetes mellitus complication status: with unspecified complications Qualified Code(s) : E11.8 - Type 2 diabetes mellitus with unspecified complications; Z79.4 - prn occupational therapist (current) use of insulin (14) UTI (urinary tract infection) Current Visit: Yes Status: Acute Urine culture from 07/01/18 grew gram negative brook Currently on cefepime Qualifiers: Urinary tract infection type: site unspecified Hematuria presence: without hematuria Qualified Code(s): N39.0 - Urinary tract infection, site not specified (15) DVT prophylaxis Current Visit: Yes Status: Acute ECPDs Heparin 5000 units sub q (16) Pressure ulcer Current Visit: Yes Status: Acute Patient has to stage II pressure ulcers in the buttock area Preventative turning every 2 hours Continue to monitor Qualifiers: Pressure injury location: buttock Pressure injury stage: stage 2 Laterality: unspecified laterality Qualified Code(s): L89.302 - Pressure ulcer of unspecified buttock, stage 2 Subjective Principal diagnosis: septic shock Interval history: Mr. Mccarthy was seen at bedside this morning. He was reintubated 07/01/18. Creatinine 2.13, nephrology following and will be doing intermediate dialysis. WBC count 6.7 today. ABGs show pH 7.38, pCO2 52, pO2 58, O2 sat 89%. Restarted heprin for DVT prophylaxis 06/30/18. Currently on Cefapime. Acyclovir restarted 07/04/18 due to new lesion noted on the right upper lip/nasolabial fold area. Patient is easily awaken, more alert than yesterday, does follow some commands. Objective PUL Vital signs: Last Vital Signs Temp 98.2 F 07/09/18 08:00 Pulse 66 07/09/18 06:07 Resp 16 07/09/18 06:07 BP 76/46 07/09/18 06:07 Pulse Ox 90 07/09/18 06:07 General appearance: other (ventilated, easily awaken, more alert than yesterday) Eyes: injected ENT: oropharynx dry Neck: no lymphadenopathy Effort: normal Auscultation: bilateral: diminished breath sounds (Lower lobes), wheezes ( Through out) Cardiovascular: regular rate and rhythm Gastrointestinal: normoactive bowel sounds, soft, non-distended Integumentary: other (2 stage II ulcers on the buttock region) Extremities: no cyanosis, pink and warm, edema (1+ at the feet) other (Patient will squeeze fingers on command, nontender when asked if he is feeling some better today) Ventilator Settings Ventilator Settings: Ventilator Settings, Last 8 Hours Ventilator Tidal Volume 460 Setting Ventilator Tidal Volume 460 Setting Ventilator Tidal Volume 460 Setting Ventilator Tidal Volume 460 Setting Ventilator Tidal Volume 480 Setting Ventilator Tidal Volume 480 Setting Ventilator Tidal Volume 480 Setting Ventilator Tidal Volume 480 Setting Ventilator Tidal Volume 480 Setting Ventilator Tidal Volume 480 Setting Ventilator Respiratory Rate 16 Setting Ventilator Respiratory Rate 16 Setting Ventilator Respiratory Rate 16 Setting Ventilator Respiratory Rate 16 Setting Ventilator Respiratory Rate 16 Setting Ventilator Respiratory Rate 16 Setting Ventilator Respiratory Rate 16 Setting Ventilator Respiratory Rate 16 Setting Ventilator Respiratory Rate 16 Setting Ventilator Respiratory Rate 16 Setting Actual Respiratory Rate 16 Actual Respiratory Rate 16 Actual Respiratory Rate 16 Actual Respiratory Rate 17 Actual Respiratory Rate 17 Actual Respiratory Rate 21 Actual Respiratory Rate 21 Actual Respiratory Rate 18 Actual Respiratory Rate 16 Positive End Expiratory 5 Pressure Positive End Expiratory 5 Pressure Positive End Expiratory 5 Pressure Positive End Expiratory 5 Pressure Positive End Expiratory 5 Pressure Positive End Expiratory 5 Pressure Positive End Expiratory 5 Pressure Positive End Expiratory 5 Pressure Positive End Expiratory 5 Pressure Positive End Expiratory 5 Pressure Peak Inspiratory Airway 30 Pressure Peak Inspiratory Airway 28 Pressure Peak Inspiratory Airway 28 Pressure Peak Inspiratory Airway 32 Pressure Peak Inspiratory Airway 30 Pressure Peak Inspiratory Airway 14 Pressure Peak Inspiratory Airway 12 Pressure Peak Inspiratory Airway 28 Pressure Results - Laboratory Findings CBC and BMP: 07/09/18 05:00 07/09/18 05:00 ABG ABG pH 7.38 pH Units (7.32-7.45) 07/09/18 04:29 ABG pCO2 52 mmHg (35-45) H 07/09/18 04:29 ABG pO2 58 mmHg (85-104) L 07/09/18 04:29 ABG O2 Saturation 89 % (95-98) L 07/09/18 04:29 PT/INR, D-dimer PT 15.1 Seconds (9.4-12.1) H 07/06/18 04:00 D-Dimer 3465 ng/mLFEU (0-500) H 06/18/18 08:08 Abnormal lab findings: Abnormal lab results RBC 2.43 M/mcL (4.19-5.50) L 07/09/18 05:00 Hgb 7.5 g/dL (12.9-16.9) L 07/09/18 05:00 Hct 24.4 % (37.5-50.1) L 07/09/18 05:00 MCV 100.4 fL (83.0-100.0) H 07/09/18 05:00 MCHC 30.7 g/dL (31.6-35.5) L 07/09/18 05:00 RDW 15.5 % (11.5-14.5) H 07/09/18 05:00 Band Neutrophils % 6.0 % (0-4) H 06/27/18 03:00 Metamyelocytes % 2.0 % (0) H 06/27/18 03:00 Myelocytes % 6.0 % (0) H 06/27/18 03:00 Nucleated RBCs/100 WBC 0.1 /100 WBC (0) H 06/28/18 03:30 Reactive Lymphocytes Present (Not Present) A 07/01/18 03:00 Toxic Granulation Present (Not Present) A 06/18/18 03:05 Toxic Vacuolation Present (Not Present) A 06/22/18 03:45 Large Platelets Present (Not Present) A 06/23/18 03:15 Polychromasia 1+ (Not Present) A 06/27/18 03:00 Basophilic Stippling 1+ (Not Present) A 06/26/18 04:00 Anisocytosis 1+ (Not Present) A 06/28/18 03:30 Macrocytosis Present (Not Present) A 06/26/18 04:00 PT 15.1 Seconds (9.4-12.1) H 07/06/18 04:00 APTT 62.8 Seconds (26.0-36.0) H 06/23/18 08:00 Fibrinogen 578 mg/dL (169-393) H 06/18/18 08:08 D-Dimer 3465 ng/mLFEU (0-500) H 06/18/18 08:08 ABG pCO2 52 mmHg (35-45) H 07/09/18 04:29 ABG pO2 58 mmHg (85-104) L 07/09/18 04:29 ABG HCO3 31 mEq/L (21-27) H 07/09/18 04:29 ABG Total CO2 33 mEq/L (20-26) H 07/09/18 04:29 ABG O2 Saturation 89 % (95-98) L 07/09/18 04:29 ABG Base Excess 5 mEq/L (-2 to 3) H 07/09/18 04:29 Sodium 154 mEq/L (136-145) H 07/09/18 05:00 Potassium 3.1 mEq/L (3.5-5.1) L 07/09/18 05:00 Chloride 118 mEq/L (98-107) H 07/09/18 05:00 BUN 36 mg/dL (6-20) H 07/09/18 05:00 Creatinine 2.13 mg/dL (0.70-1.30) H 07/09/18 05:00 Est GFR ( Amer) 40 (> 60) L 07/09/18 05:00 Est GFR (Non-Af Amer) 33 (> 60) L 07/09/18 05:00 Glucose 169 mg/dL (70-105) H 07/09/18 05:00 POC Glucose 199 mg/dL (70-99) H 07/09/18 07:55 Serum Osmolality 327 mOsm/kg (280-300) H 07/01/18 09:48 Calculated Osmolality 330 (280-300) H 07/09/18 05:00 Venous Ioniz Calcium 1.13 mmol/L (1.15-1.35) L 07/01/18 03:39 Phosphorus 4.6 mg/dL (2.7-4.5) H 07/09/18 05:00 Magnesium 1.5 mg/dL (1.6-2.6) L 07/09/18 05:00 Iron < 10 mcg/dL (65-175) L 07/01/18 03:00 Transferrin 146 mg/dL (203-362) L 07/01/18 03:00 Ferritin 647 ng/mL (20-250) H 07/01/18 03:00 Direct Bilirubin 0.4 mg/dL (0.0-0.2) H 06/23/18 03:15 Troponin I 0.92 ng/mL (< 0.04) H* 06/17/18 22:33 Serum Total Protein 6.3 g/dL (6.4-8.9) L 07/06/18 04:00 Albumin 2.6 g/dL (3.5-5.7) L 07/06/18 04:00 Globulin 3.7 g/dL (2.4-3.5) H 07/06/18 04:00 Albumin/Globulin Ratio 0.7 (1.1-2.2) L 07/06/18 04:00 Amylase 20 Units/L (29-103) L 06/23/18 16:27 Folate 2.5 ng/mL (3.0-16.0) L 06/27/18 11:25 Procalcitonin 107.11 ng/mL (<=0.07) H 06/17/18 16:40 TSH 7.234 mcIU/mL (0.340-5.600) H 06/27/18 11:25 Ur Specific Thomson < 1.005 (1.010-1.025) L 06/30/18 09:34 Urine Blood Moderate (Negative) H 06/30/18 09:34 Ur Leukocyte Esterase Moderate (Negative) H 06/30/18 09:34 Urine Microscopic RBC 3-5 per hpf (0-3) H 06/30/18 09:34 Urine Microscopic WBC 50-100 per hpf (0-3) H 06/30/18 09:34 Urine Bacteria Many per hpf (None-Few) H 06/30/18 09:34 Urine Osmolality 200 mOsm/kg (300-1090) L 06/30/18 09:33 Protein/Creatinin Ratio 1.68 mg/mg (0.00-0.20) H 06/30/18 09:34 Urine Total Protein 52 mg/dL (1-14) H 06/30/18 09:34 Vancomycin Trough 19 mcg/mL (5-10) H 07/05/18 04:00 Urine Opiates Screen Positive ng/mL (Yepumz=803) H 06/18/18 10:37 U Benzodiazepines Scrn Positive ng/mL (Epexni=054) H 06/18/18 10:37 HSV I DETECTED (Not Detect) A 06/24/18 15:10 - Clinical Findings Intake & Output: Intake & Output 07/08/18 07/09/18 07/09/18 23:59 07:59 15:59 Intake Total 2758 / 2758 788.4 / 788.4 Output Total 1800 / 1800 1675 / 1675 725 / 725 Balance 958 / 958 -886.6 / -886.6 -725 / -725 Weight 112 kg - VTE Documentation of Mechanical Device: Intermittent pneumatic compression device Consult Discharge Plan - Plan Referrals: Sheryl Stahl, LPN RN [Primary Care Provider] - <Ludin Barrett - Last Filed: 07/09/18 16:37> Date of Encounter: 07/09/18 Assessment and Plan (1) Acute respiratory failure with hypoxemia Current Visit: Yes Status: Acute (2) Septic shock Current Visit: Yes Status: Acute (3) Systolic heart failure Current Visit: Yes Status: Deleted Qualifiers: Heart failure chronicity: acute on chronic Qualified Code(s): I50.23 - Acute on chronic systolic (congestive) heart failure (4) LUCILA (acute kidney injury) Current Visit: Yes Status: Acute (5) DVT prophylaxis Current Visit: Yes Status: Acute (6) Type 2 diabetes mellitus Current Visit: Yes Status: Chronic Qualifiers: Diabetes mellitus alf insulin use: with collector of port use Diabetes mellitus complication status: with unspecified complications Qualified Code(s) : E11.8 - Type 2 diabetes mellitus with unspecified complications; Z79.4 - intermediate (current) use of insulin (7) COPD (chronic obstructive pulmonary disease) Current Visit: Yes Status: Chronic Qualifiers: COPD type: emphysema Emphysema type: unspecified Qualified Code(s): J43.9 - Emphysema, unspecified (8) Thrombocytopenia Current Visit: Yes Status: Resolved Objective PUL Vital signs: Last Vital Signs Temp 98.2 F 07/09/18 08:00 Pulse 82 07/09/18 15:53 Resp 21 07/09/18 15:53 BP 147/79 07/09/18 15:53 Pulse Ox 93 07/09/18 15:53 Ventilator Settings Ventilator Settings: Ventilator Settings, Last 8 Hours Ventilator Tidal Volume 460 Setting Ventilator Tidal Volume 460 Setting Ventilator Tidal Volume 460 Setting Ventilator Tidal Volume 460 Setting Ventilator Tidal Volume 460 Setting Ventilator Tidal Volume 460 Setting Ventilator Tidal Volume 460 Setting Ventilator Respiratory Rate 16 Setting Ventilator Respiratory Rate 16 Setting Ventilator Respiratory Rate 16 Setting Ventilator Respiratory Rate 16 Setting Ventilator Respiratory Rate 16 Setting Ventilator Respiratory Rate 16 Setting Ventilator Respiratory Rate 16 Setting Actual Respiratory Rate 20 Actual Respiratory Rate 23 Actual Respiratory Rate 26 Actual Respiratory Rate 24 Actual Respiratory Rate 20 Actual Respiratory Rate 22 Actual Respiratory Rate 19 Actual Respiratory Rate 29 Positive End Expiratory 5 Pressure Positive End Expiratory 5 Pressure Positive End Expiratory 5 Pressure Positive End Expiratory 5 Pressure Positive End Expiratory 5 Pressure Positive End Expiratory 8 Pressure Positive End Expiratory 8 Pressure Positive End Expiratory 5 Pressure Peak Inspiratory Airway 28 Pressure Peak Inspiratory Airway 32 Pressure Peak Inspiratory Airway 26 Pressure Peak Inspiratory Airway 28 Pressure Peak Inspiratory Airway 25 Pressure Peak Inspiratory Airway 24 Pressure Peak Inspiratory Airway 30 Pressure Results - Laboratory Findings CBC and BMP: 07/09/18 05:00 07/09/18 12:00 ABG ABG pH 7.38 pH Units (7.32-7.45) 07/09/18 04:29 ABG pCO2 52 mmHg (35-45) H 07/09/18 04:29 ABG pO2 58 mmHg (85-104) L 07/09/18 04:29 ABG O2 Saturation 89 % (95-98) L 07/09/18 04:29 PT/INR, D-dimer PT 15.1 Seconds (9.4-12.1) H 07/06/18 04:00 D-Dimer 3465 ng/mLFEU (0-500) H 06/18/18 08:08 Abnormal lab findings: Abnormal lab results RBC 2.43 M/mcL (4.19-5.50) L 07/09/18 05:00 Hgb 7.5 g/dL (12.9-16.9) L 07/09/18 05:00 Hct 24.4 % (37.5-50.1) L 07/09/18 05:00 MCV 100.4 fL (83.0-100.0) H 07/09/18 05:00 MCHC 30.7 g/dL (31.6-35.5) L 07/09/18 05:00 RDW 15.5 % (11.5-14.5) H 07/09/18 05:00 Band Neutrophils % 6.0 % (0-4) H 06/27/18 03:00 Metamyelocytes % 2.0 % (0) H 06/27/18 03:00 Myelocytes % 6.0 % (0) H 06/27/18 03:00 Nucleated RBCs/100 WBC 0.1 /100 WBC (0) H 06/28/18 03:30 Reactive Lymphocytes Present (Not Present) A 07/01/18 03:00 Toxic Granulation Present (Not Present) A 06/18/18 03:05 Toxic Vacuolation Present (Not Present) A 06/22/18 03:45 Large Platelets Present (Not Present) A 06/23/18 03:15 Polychromasia 1+ (Not Present) A 06/27/18 03:00 Basophilic Stippling 1+ (Not Present) A 06/26/18 04:00 Anisocytosis 1+ (Not Present) A 06/28/18 03:30 Macrocytosis Present (Not Present) A 06/26/18 04:00 PT 15.1 Seconds (9.4-12.1) H 07/06/18 04:00 APTT 62.8 Seconds (26.0-36.0) H 06/23/18 08:00 Fibrinogen 578 mg/dL (169-393) H 08/22/18 08:08 D-Dimer 3465 ng/mLFEU (0-500) H 06/18/18 08:08 ABG pCO2 52 mmHg (35-45) H 07/09/18 04:29 ABG pO2 58 mmHg (85-104) L 07/09/18 04:29 ABG HCO3 31 mEq/L (21-27) H 07/09/18 04:29 ABG Total CO2 33 mEq/L (20-26) H 07/09/18 04:29 ABG O2 Saturation 89 % (95-98) L 07/09/18 04:29 ABG Base Excess 5 mEq/L (-2 to 3) H 07/09/18 04:29 Sodium 156 mEq/L (136-145) H 07/09/18 12:00 Potassium 3.4 mEq/L (3.5-5.1) L 07/09/18 12:00 Chloride 120 mEq/L (98-107) H 07/09/18 12:00 BUN 37 mg/dL (6-20) H 07/09/18 12:00 Creatinine 2.14 mg/dL (0.70-1.30) H 07/09/18 12:00 Est GFR ( Amer) 39 (> 60) L 07/09/18 12:00 Est GFR (Non-Af Amer) 32 (> 60) L 07/09/18 12:00 Glucose 124 mg/dL (70-105) H 07/09/18 12:00 POC Glucose 137 mg/dL (70-99) H 07/09/18 16:01 Serum Osmolality 327 mOsm/kg (280-300) H 07/01/18 09:48 Calculated Osmolality 332 (280-300) H 07/09/18 12:00 Venous Ioniz Calcium 1.13 mmol/L (1.15-1.35) L 07/01/18 03:39 Phosphorus 4.6 mg/dL (2.7-4.5) H 07/09/18 05:00 Magnesium 1.5 mg/dL (1.6-2.6) L 07/09/18 05:00 Iron < 10 mcg/dL (65-175) L 07/01/18 03:00 Transferrin 146 mg/dL (203-362) L 07/01/18 03:00 Ferritin 647 ng/mL (20-250) H 07/01/18 03:00 Direct Bilirubin 0.4 mg/dL (0.0-0.2) H 06/23/18 03:15 Troponin I 0.92 ng/mL (< 0.04) H* 06/17/18 22:33 Serum Total Protein 6.3 g/dL (6.4-8.9) L 07/06/18 04:00 Albumin 2.6 g/dL (3.5-5.7) L 07/06/18 04:00 Globulin 3.7 g/dL (2.4-3.5) H 07/06/18 04:00 Albumin/Globulin Ratio 0.7 (1.1-2.2) L 07/06/18 04:00 Amylase 20 Units/L (29-103) L 06/23/18 16:27 Folate 2.5 ng/mL (3.0-16.0) L 06/27/18 11:25 Procalcitonin 107.11 ng/mL (<=0.07) H 06/17/18 16:40 TSH 7.234 mcIU/mL (0.340-5.600) H 06/27/18 11:25 Ur Specific Thomson < 1.005 (1.010-1.025) L 06/30/18 09:34 Urine Blood Moderate (Negative) H 06/30/18 09:34 Ur Leukocyte Esterase Moderate (Negative) H 06/30/18 09:34 Urine Microscopic RBC 3-5 per hpf (0-3) H 06/30/18 09:34 Urine Microscopic WBC 50-100 per hpf (0-3) H 06/30/18 09:34 Urine Bacteria Many per hpf (None-Few) H 06/30/18 09:34 Urine Osmolality 137 mOsm/kg (300-1090) L 07/09/18 10:00 Protein/Creatinin Ratio 1.68 mg/mg (0.00-0.20) H 06/30/18 09:34 Urine Total Protein 52 mg/dL (1-14) H 06/30/18 09:34 Vancomycin Trough 19 mcg/mL (5-10) H 07/05/18 04:00 Urine Opiates Screen Positive ng/mL (Zyzhrq=870) H 06/18/18 10:37 U Benzodiazepines Scrn Positive ng/mL (Ygbpys=087) H 06/18/18 10:37 HSV I DETECTED (Not Detect) A 06/24/18 15:10 - Microbiology Findings Microbiology Findings: Microbiology, Last 48 Hours 07/04/18 11:59 Blood Culture - Final Peripheral Venipuncture No growth. Final report. 07/04/18 10:34 Blood Culture - Final Peripheral Venipuncture No growth. Final report. - Clinical Findings Intake & Output: Intake & Output 07/09/18 07/09/18 07/09/18 07:59 15:59 23:59 Intake Total 1288.4 / 1288.4 2267.4 / 2267.4 Output Total 1675 / 1675 2275 / 2275 Balance -386.6 / -386.6 -7.6 / -7.6 Weight 112 kg - Attending Attestation - Attending Attestation I saw and evaluated this patient and my medical decision-making was reviewed with the Resident Physician. I agree with the documented findings, disposition and treatment plan as described except to the extent set forth below. We independently had [id number] contact with the patient I spent 33 minutes of Critical Care time with this patient. It involved decision making of high complexity to assess, manipulate, and support vital organ system failure and/or to prevent further life threatening deterioration of the patient's condition. The time involved in the performance of separately reportable procedures was not counted toward critical care time. Patient seen and examined at bedside Labs, radiology, chart personally reviewed. Management was reviewed during multidisciplinary critical care rounds. PEDIATRIC DENTIST: Patient has acute encephalopathy secondary to possibly toxic/metabolic with underlying pneumonia and hypernatremia possibly contributing to this patient is started to follow commands on and off . Pulm: Patient has still some V/Q mismatch has acceptable oxygenation and ventilation A baumanii pneumonia is getting better with current management will do smart care liberation from ventilator 07/09 Did smart care today patient needed higher PS and he tolerated for 45 minutes will attempt daily this current V/Q mismatch contributed by pneumonia and hydrostatic pulmonary edema. Cards: Patient septic shock is resolved.He is hemodynamically stable FEN-GI: Diet according to nutrition.Patient has Moderate Non -Severe Protein Calorie Malnutrition. Renal: Patient renal function as improving labs and output reviewed nephrology on board . Patient has diabetes insipidus gave DDAVP he didnt respond to it more looks like nephrogenic DI will try Amiloride will increase the amount of free water for next 12 hrs . ID: Reviewed broad-spectrum antibiotics to continue antibiotics according to ID recs Heme/Onc: Thromboprophylaxis Endo: Glucose Monitored Integ/MSK: Skin Care per routine ICU Nursing Protocol . Patient has 2 stage II Buttock ulcers Lines: All lines examined without evidence of infection : Dispo: Critically ill. CODE:Full Code
[2018-07-09] MEDS: Acyclovir 750 MG in D5% in Water 250 ML IVPB SCH (08:56)
[2018-07-09] MEDS: D5% in Water 1,000 ML IVC SCH ×3 (09:28→20:46)
[2018-07-09] MEDS ORDERED: SODIUM CHLORIDE 0.9% IVPB ONE (09:45)
[2018-07-09] MEDS ORDERED: DESMOPRESSIN IVPB ONE (09:45)
--- NOTE | 2018-07-09 09:50 | Infectious Disease Progress No ---
Date of Encounter: 07/09/18 Time of Encounter: 09:48 - Assessment and Plan (1) Septic shock Current Visit: Yes Status: Acute The patient had 4 SIRS criteria plus lactic acidosis, acute kidney injury, acute encephalopathy, and hypotension requiring vasopressors. Likely secondary to candidemia, UTI, possible HSV encephalitis, and PNA. Improved. Leukocytosis resolved. Afebrile overnight. Tachycardic at this time , likely secondary to being in CPAP mode on the ventilator. Blood cultures obtained 06/17/18 are +2 out of 2 sets for Marisela albicans, nation- sensitive. Repeat blood cultures obtained 06/19/18 are negative 2 sets. Additional blood cultures drawn 07/04/18 are negative x 2 sets. (2) Candidemia Current Visit: Yes Status: Resolved Causative organism: Marisela albicans. Source: unclear. CT of the abdomen and pelvis is negative. He has no indwelling lines or catheters. His urine culture is positive for C. albicans. Blood cultures obtained 06/17/18 are +2 out of 2 sets for Marisela albicans, nation- sensitive. Repeat blood cultures obtained 06/19/18 are negative 2 sets. Additional blood cultures 07/04/18 are negative x 2 sets. Repeat LFTs normal. Completed 14 days of IV fluconazole. Resolved. Ophthalmology consult noted and appreciated. (3) Pneumonia Current Visit: Yes Status: Suspected Location: Bilateral lower lobes. Causative organism: Unclear. Consider aspiration since the patient had altered mental status and was recently intubated. CT of the chest showed bilateral lower lobe infiltrates versus atelectasis. The patient does have a large amount of secretions coming from his ET tube. Discussed with the pulmonary team. Concern for pneumonia from their standpoint. MRSA screen completed 06/17/18 is negative. Initial sputum culture negative. Repeat Sputum culture 07/04/18 positive for A. baummannii. S. pneumo and Legionella UAT 06/20/18.--> negative. Repeat CXR 06/23/18 showed mild pulmonary vascular congestion and atelectasis and mild pleural effusion at the right lung base, increased. CT scan of the chest 06/23/18 negative for PNA. CXR 07/01/18 showed stable RLL disease and improved LLL disease. CXR 07/07/18 showed mild pulmonary vascular congestion and mild right pleural effusion. Vanc and Zosyn discontinued 06/25/18 after 9 days. Continue Cefepime 2 grams IV Q12H. Dosing discussed with Leon Miles. CrCl ~29. Duration of treatment depends on the clinical picture. Monitor renal function and for drug toxicity and dose-adjust antibiotics. Qualifiers: Pneumonia type: due to unspecified organism Laterality: bilateral Lung location: lower lobe of lung Qualified Code(s): J18.1 - Lobar pneumonia, unspecified organism (4) UTI (urinary tract infection) Current Visit: Yes Status: Acute Causative organism 06/18/18: C. albicans. Completed 14+ days of fluconazole. Repeat urine culture 07/01/18 grew E. coli, resistant to ampicillin and Unasyn. Likely secondary to jacobo catheter. Continue Cefepime. Switch out jacobo catheter. Duration of treatment depends on the clinical picture. Monitor renal function and for drug toxicity and dose-adjust antibiotics. Qualifiers: Urinary tract infection type: site unspecified Hematuria presence: without hematuria Qualified Code(s): N39.0 - Urinary tract infection, site not specified (5) Encephalopathy Current Visit: Yes Status: Acute Etiology unclear, but likely related to sepsis. Per the patient's , the patient did have any complaints of neck pain, stiffness, or headache. Unable to assess mental status since the patient remains intubated and sedated. CT head negative for intracranial abnormality. 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 LP attempted by the pulm/CC team and IR was unsuccessful. Neurology consulted. Appreciate recommendations. Signed off. Acyclovir stopped by the pulmonary team, re-started 07/04/18. Has completed 14 days of IV acyclovir. Can discontinue at this point. (6) LUCILA (acute kidney injury) Current Visit: Yes Status: Acute Likely multifactorial: sepsis + hypotension + other. CRRT started 06/19/18 and stopped 06/26/18. Creatinine improved. Urine output remains adequate. Nephrology consulted and following. Continue to trend. Dose-adjust medications. (7) Lactic acidosis Current Visit: Yes Status: Resolved Likely secondary to sepsis. Resolved. (8) Thrombocytopenia Current Visit: Yes Status: Resolved Likely secondary to sepsis. LFTs abnormal on admission. Repeat LFTs normal. Resolved Continue to trend. No acute bleeding noted on exam. Further workup and management per the primary team. (9) Acute respiratory failure with hypoxemia Current Visit: Yes Status: Acute Likely secondary to PNA vs. pulmonary edema. Extubated 07/01/18. Re-intubated 07/04/18. Management per the pulmonary team. (10) Hypokalemia Current Visit: Yes Status: Resolved Replacement per the primary team. (11) Elevated troponin Current Visit: Yes Status: Acute Management per the primary team. (12) Type 2 diabetes mellitus Current Visit: Yes Status: Chronic Recommend aggressive glucose monitoring and control. Management per the primary team. Qualifiers: Diabetes mellitus exterminator termite insulin use: with exterminator termite use Diabetes mellitus complication status: with unspecified complications Qualified Code(s) : E11.8 - Type 2 diabetes mellitus with unspecified complications; Z79.4 - FDC (current) use of insulin (13) COPD (chronic obstructive pulmonary disease) Current Visit: Yes Status: Chronic Qualifiers: COPD type: emphysema Emphysema type: unspecified Qualified Code(s): J43.9 - Emphysema, unspecified (14) Oral lesion Current Visit: Yes Status: Acute Noted to the tongue. PCR positive for HSV 1. New lesion noted to the right nasolabial fold: HSV vs. other. Completed 14 days of acyclovir. (15) Sinusitis Current Visit: Yes Status: Resolved CT of the head 06/23/18 showed sinusitis of the bilateral sphenoid and ethmoid sinuses. Causative organism unclear. Treated with 9 days of Vanc and Zosyn. Qualifiers: Sinusitis location: unspecified location Chronicity: acute Recurrence: non-recurrent Qualified Code(s): J01.90 - Acute sinusitis, unspecified - Subjective Interval history: Patient seen and examined. Afebrile overnight. Tachycardia noted this morning since the patient is on CPAP. WBC has normalized. According to the nursing notes, the patient had an episode of possible aspiration overnight when he was given free water via his NG tube that apparently had displaced. Stools are loose, but do not look like C. diff. Patient is awake, attempting to pull the ET tube. Opens eyes on commands and squeezes my hands, but does not follow any other commands. Infect Dis PN-Objective Data - Labs CBC & Chem 7: 07/09/18 05:00 07/09/18 12:00 Labs: Laboratory Results - last 24 hr 07/08/18 07/08/18 07/08/18 11:42 15:50 17:29 WBC RBC Hgb Hct MCV MCH MCHC RDW Plt Count MPV Immature Gran % Seg Neutrophils % Lymphocytes % Monocytes % Eosinophils % Basophils % Neutrophils # Lymphocytes # Monocytes # Eosinophils # Basophils # Sample Site ABG pH ABG pCO2 ABG pO2 ABG HCO3 ABG Total CO2 ABG O2 Saturation ABG Base Excess Respiration Rate O2 Delivery Device Blood Gas Modality Inspired O2 Tidal Volume PEEP Sodium Potassium Chloride Carbon Dioxide BUN Creatinine Est GFR ( Amer) Est GFR (Non-Af Amer) BUN/Creatinine Ratio Glucose POC Glucose 286 H 182 H 169 H Calculated Osmolality Calcium Phosphorus Magnesium 07/08/18 07/08/18 07/08/18 18:16 19:40 20:42 WBC RBC Hgb Hct MCV MCH MCHC RDW Plt Count MPV Immature Gran % Seg Neutrophils % Lymphocytes % Monocytes % Eosinophils % Basophils % Neutrophils # Lymphocytes # Monocytes # Eosinophils # Basophils # Sample Site ABG pH ABG pCO2 ABG pO2 ABG HCO3 ABG Total CO2 ABG O2 Saturation ABG Base Excess Respiration Rate O2 Delivery Device Blood Gas Modality Inspired O2 Tidal Volume PEEP Sodium Potassium Chloride Carbon Dioxide BUN Creatinine Est GFR ( Amer) Est GFR (Non-Af Amer) BUN/Creatinine Ratio Glucose POC Glucose 194 H 190 H 182 H Calculated Osmolality Calcium Phosphorus Magnesium 07/08/18 07/08/18 07/08/18 21:01 22:13 23:13 WBC RBC Hgb Hct MCV MCH MCHC RDW Plt Count MPV Immature Gran % Seg Neutrophils % Lymphocytes % Monocytes % Eosinophils % Basophils % Neutrophils # Lymphocytes # Monocytes # Eosinophils # Basophils # Sample Site ABG pH ABG pCO2 ABG pO2 ABG HCO3 ABG Total CO2 ABG O2 Saturation ABG Base Excess Respiration Rate O2 Delivery Device Blood Gas Modality Inspired O2 Tidal Volume PEEP Sodium Potassium Chloride Carbon Dioxide BUN Creatinine Est GFR ( Amer) Est GFR (Non-Af Amer) BUN/Creatinine Ratio Glucose POC Glucose 165 H 150 H 145 H Calculated Osmolality Calcium Phosphorus Magnesium 07/09/18 07/09/18 07/09/18 00:02 01:18 02:18 WBC RBC Hgb Hct MCV MCH MCHC RDW Plt Count MPV Immature Gran % Seg Neutrophils % Lymphocytes % Monocytes % Eosinophils % Basophils % Neutrophils # Lymphocytes # Monocytes # Eosinophils # Basophils # Sample Site ABG pH ABG pCO2 ABG pO2 ABG HCO3 ABG Total CO2 ABG O2 Saturation ABG Base Excess Respiration Rate O2 Delivery Device Blood Gas Modality Inspired O2 Tidal Volume PEEP Sodium Potassium Chloride Carbon Dioxide BUN Creatinine Est GFR ( Amer) Est GFR (Non-Af Amer) BUN/Creatinine Ratio Glucose POC Glucose 116 H 88 97 Calculated Osmolality Calcium Phosphorus Magnesium 07/09/18 07/09/18 07/09/18 03:13 04:03 04:29 WBC RBC Hgb Hct MCV MCH MCHC RDW Plt Count MPV Immature Gran % Seg Neutrophils % Lymphocytes % Monocytes % Eosinophils % Basophils % Neutrophils # Lymphocytes # Monocytes # Eosinophils # Basophils # Sample Site R Brach ABG pH 7.38 ABG pCO2 52 H ABG pO2 58 L ABG HCO3 31 H ABG Total CO2 33 H ABG O2 Saturation 89 L ABG Base Excess 5 H Respiration Rate 16 O2 Delivery Device Adult Vent Blood Gas Modality VC Inspired O2 40.0 Tidal Volume 460 PEEP 5 Sodium Potassium Chloride Carbon Dioxide BUN Creatinine Est GFR ( Amer) Est GFR (Non-Af Amer) BUN/Creatinine Ratio Glucose POC Glucose 116 H 147 H Calculated Osmolality Calcium Phosphorus Magnesium 07/09/18 07/09/18 07/09/18 05:00 05:00 05:11 WBC 6.7 RBC 2.43 L Hgb 7.5 L Hct 24.4 L MCV 100.4 H MCH 30.9 MCHC 30.7 L RDW 15.5 H Plt Count 151 MPV 11.8 Immature Gran % 0.3 Seg Neutrophils % 55.7 Lymphocytes % 31.4 Monocytes % 7.7 Eosinophils % 4.3 Basophils % 0.6 Neutrophils # 3.8 Lymphocytes # 2.1 Monocytes # 0.5 Eosinophils # 0.3 Basophils # 0.0 Sample Site ABG pH ABG pCO2 ABG pO2 ABG HCO3 ABG Total CO2 ABG O2 Saturation ABG Base Excess Respiration Rate O2 Delivery Device Blood Gas Modality Inspired O2 Tidal Volume PEEP Sodium 154 H Potassium 3.1 L Chloride 118 H Carbon Dioxide 29 BUN 36 H Creatinine 2.13 H Est GFR ( Amer) 40 L Est GFR (Non-Af Amer) 33 L BUN/Creatinine Ratio 17 Glucose 169 H POC Glucose 161 H Calculated Osmolality 330 H Calcium 8.8 Phosphorus 4.6 H Magnesium 1.5 L 07/09/18 07/09/18 07/09/18 06:04 06:49 07:55 WBC RBC Hgb Hct MCV MCH MCHC RDW Plt Count MPV Immature Gran % Seg Neutrophils % Lymphocytes % Monocytes % Eosinophils % Basophils % Neutrophils # Lymphocytes # Monocytes # Eosinophils # Basophils # Sample Site ABG pH ABG pCO2 ABG pO2 ABG HCO3 ABG Total CO2 ABG O2 Saturation ABG Base Excess Respiration Rate O2 Delivery Device Blood Gas Modality Inspired O2 Tidal Volume PEEP Sodium Potassium Chloride Carbon Dioxide BUN Creatinine Est GFR ( Amer) Est GFR (Non-Af Amer) BUN/Creatinine Ratio Glucose POC Glucose 173 H 165 H 199 H Calculated Osmolality Calcium Phosphorus Magnesium 07/09/18 09:05 WBC RBC Hgb Hct MCV MCH MCHC RDW Plt Count MPV Immature Gran % Seg Neutrophils % Lymphocytes % Monocytes % Eosinophils % Basophils % Neutrophils # Lymphocytes # Monocytes # Eosinophils # Basophils # Sample Site ABG pH ABG pCO2 ABG pO2 ABG HCO3 ABG Total CO2 ABG O2 Saturation ABG Base Excess Respiration Rate O2 Delivery Device Blood Gas Modality Inspired O2 Tidal Volume PEEP Sodium Potassium Chloride Carbon Dioxide BUN Creatinine Est GFR ( Amer) Est GFR (Non-Af Amer) BUN/Creatinine Ratio Glucose POC Glucose 199 H Calculated Osmolality Calcium Phosphorus Magnesium Cultures: Cultures 07/04/18 07:38 Sputum Culture - Final Aspirate Acinetobacter baumannii complx 07/04/18 11:59 Blood Culture - Preliminary Peripheral Venipuncture Culture is incubating and being continuously monitored for growth. Final report to follow. 07/04/18 10:34 Blood Culture - Preliminary Peripheral Venipuncture Culture is incubating and being continuously monitored for growth. Final report to follow. 07/01/18 09:03 Urine Culture - Final Urine,Catheterized Escherichia coli 06/24/18 11:35 Blood Culture - Final Peripheral Venipuncture No growth. Final report. 06/24/18 11:35 Blood Culture - Final Peripheral Venipuncture No growth. Final report. 06/19/18 12:46 Blood Culture - Final Peripheral Venipuncture No growth. Final report. 06/19/18 12:46 Blood Culture - Final Peripheral Venipuncture No growth. Final report. 06/18/18 20:45 Sputum Culture - Final Sputum 06/20/18 11:30 Legionella Antigen - Final Urine,[place] Streptococcus pneumoniae Antigen (M - Final Serology 07/05/18 07/01/18 06/30/18 Range/Units 17:50 09:03 09:34 Urine Color (Yellow) Urine Clarity (Clear) Urine pH (5.0-8.0) pH Units Ur Specific [place] (1.010-1.025) Urine Protein (Neg-Trace) mg/dL Urine Glucose (UA) (Normal) mg/dL Urine Ketones (Negative) mg/dL Urine Blood (Negative) Urine Nitrite (Negative) Urine Bilirubin (Negative) Urine Urobilinogen (Normal) mg/dL Ur Leukocyte Esterase (Negative) Urine Microscopic RBC (0-3) per hpf Urine Microscopic WBC (0-3) per hpf Ur Eosinophil Smear 0 (None Seen) % Ur Squamous Epith Cells (None-Few) per lpf Urine Bacteria (None-Few) per hpf Hyaline Casts (None-Few) per lpf Urine Osmolality (300-1090) mOsm/kg Urine Creatinine 31 mg/dL Protein/Creatinin Ratio 1.68 H (0.00-0.20) mg/mg Urine Sodium 40.6 mEq/L Urine Potassium mEq/L Urine Chloride mEq/L Urine Total Protein 52 H (1-14) mg/dL Nasal Screen MRSA (PCR) Negative (Negative) Chlamy pneumoniae PCR (Not Detect) Adenovirus (PCR) (Not Detect) B. pertussis DNA (PCR) (Not Detect) B.parapertussis DNA PCR (Not Detect) Coronavirus OC43 (PCR) (Not Detect) Coronavirus HKU1 (PCR) (Not Detect) Coronavirus 229E (PCR) (Not Detect) Coronavirus NL63 (PCR) (Not Detect) Hep Bs Antigen (Nonreactive) Hep Bs Antibody mIU/mL Herpes Simplex Source HSV I (Not Detect) HSV II (Not Detect) HIV Ag/Ab Combo Qual (Nonreactive) Human Metapneumovir PCR (Not Detect) Influenza A (H1) PCR (Not Detect) Influ A (H1N1/09) PCR (Not Detect) Influenza A (H3) PCR (Not Detect) Influenza A Untype (PCR) (Not Detect) Influenza Type B (PCR) (Not Detect) M.pneumoniae DNA (PCR) (Not Detect) Parainfluenza 1 (PCR) (Not Detect) Parainfluenza 2 (PCR) (Not Detect) Parainfluenza 3 (PCR) (Not Detect) Parainfluenza 4 (PCR) (Not Detect) RSV (PCR) (Not Detect) Entero/Rhino (PCR) (Not Detect) 06/30/18 06/30/18 06/24/18 Range/Units 09:34 09:33 15:10 Urine Color Yellow (Yellow) Urine Clarity Clear (Clear) Urine pH 7.0 (5.0-8.0) pH Units Ur Specific [place] < 1.005 L (1.010-1.025) Urine Protein Trace (Neg-Trace) mg/dL Urine Glucose (UA) Normal (Normal) mg/dL Urine Ketones Negative (Negative) mg/dL Urine Blood Moderate H (Negative) Urine Nitrite Negative (Negative) Urine Bilirubin Negative (Negative) Urine Urobilinogen Normal (Normal) mg/dL Ur Leukocyte Esterase Moderate H (Negative) Urine Microscopic RBC 3-5 H (0-3) per hpf Urine Microscopic WBC 50-100 H (0-3) per hpf Ur Eosinophil Smear (None Seen) % Ur Squamous Epith Cells None Seen (None-Few) per lpf Urine Bacteria Many H (None-Few) per hpf Hyaline Casts None Seen (None-Few) per lpf Urine Osmolality 200 L (300-1090) mOsm/kg Urine Creatinine mg/dL Protein/Creatinin Ratio (0.00-0.20) mg/mg Urine Sodium mEq/L Urine Potassium mEq/L Urine Chloride mEq/L Urine Total Protein (1-14) mg/dL Nasal Screen MRSA (PCR) (Negative) Chlamy pneumoniae PCR (Not Detect) Adenovirus (PCR) (Not Detect) B. pertussis DNA (PCR) (Not Detect) B.parapertussis DNA PCR (Not Detect) Coronavirus OC43 (PCR) (Not Detect) Coronavirus HKU1 (PCR) (Not Detect) Coronavirus 229E (PCR) (Not Detect) Coronavirus NL63 (PCR) (Not Detect) Hep Bs Antigen (Nonreactive) Hep Bs Antibody mIU/mL Herpes Simplex Source [place] HSV I DETECTED A (Not Detect) HSV II Not Detected (Not Detect) HIV Ag/Ab Combo Qual (Nonreactive) Human Metapneumovir PCR (Not Detect) Influenza A (H1) PCR (Not Detect) Influ A (H1N1/09) PCR (Not Detect) Influenza A (H3) PCR (Not Detect) Influenza A Untype (PCR) (Not Detect) Influenza Type B (PCR) (Not Detect) M.pneumoniae DNA (PCR) (Not Detect) Parainfluenza 1 (PCR) (Not Detect) Parainfluenza 2 (PCR) (Not Detect) Parainfluenza 3 (PCR) (Not Detect) Parainfluenza 4 (PCR) (Not Detect) RSV (PCR) (Not Detect) Entero/Rhino (PCR) (Not Detect) 06/24/18 06/23/18 06/23/18 Range/Units 11:15 20:00 08:10 Urine Color Yellow (Yellow) Urine Clarity Hazy (Clear) Urine pH 6.0 (5.0-8.0) pH Units Ur Specific [place] 1.013 (1.010-1.025) Urine Protein 30 H (Neg-Trace) mg/dL Urine Glucose (UA) Normal (Normal) mg/dL Urine Ketones Negative (Negative) mg/dL Urine Blood Moderate H (Negative) Urine Nitrite Negative (Negative) Urine Bilirubin Small H (Negative) Urine Urobilinogen Normal (Normal) mg/dL Ur Leukocyte Esterase Moderate H (Negative) Urine Microscopic RBC 3-5 H (0-3) per hpf Urine Microscopic WBC 50-100 H (0-3) per hpf Ur Eosinophil Smear (None Seen) % Ur Squamous Epith Cells Many H (None-Few) per lpf Urine Bacteria None Seen (None-Few) per hpf Hyaline Casts None Seen (None-Few) per lpf Urine Osmolality (300-1090) mOsm/kg Urine Creatinine mg/dL Protein/Creatinin Ratio (0.00-0.20) mg/mg Urine Sodium mEq/L Urine Potassium mEq/L Urine Chloride mEq/L Urine Total Protein (1-14) mg/dL Nasal Screen MRSA (PCR) (Negative) Chlamy pneumoniae PCR (Not Detect) Adenovirus (PCR) (Not Detect) B. pertussis DNA (PCR) (Not Detect) B.parapertussis DNA PCR (Not Detect) Coronavirus OC43 (PCR) (Not Detect) Coronavirus HKU1 (PCR) (Not Detect) Coronavirus 229E (PCR) (Not Detect) Coronavirus NL63 (PCR) (Not Detect) Hep Bs Antigen Nonreactive (Nonreactive) Hep Bs Antibody 0.00 mIU/mL Herpes Simplex Source HSV I (Not Detect) HSV II (Not Detect) HIV Ag/Ab Combo Qual Nonreactive (Nonreactive) Human Metapneumovir PCR (Not Detect) Influenza A (H1) PCR (Not Detect) Influ A (H1N1/09) PCR (Not Detect) Influenza A (H3) PCR (Not Detect) Influenza A Untype (PCR) (Not Detect) Influenza Type B (PCR) (Not Detect) M.pneumoniae DNA (PCR) (Not Detect) Parainfluenza 1 (PCR) (Not Detect) Parainfluenza 2 (PCR) (Not Detect) Parainfluenza 3 (PCR) (Not Detect) Parainfluenza 4 (PCR) (Not Detect) RSV (PCR) (Not Detect) Entero/Rhino (PCR) (Not Detect) 06/20/18 06/18/18 06/18/18 Range/Units 11:30 10:28 10:28 Urine Color (Yellow) Urine Clarity (Clear) Urine pH (5.0-8.0) pH Units Ur Specific [place] (1.010-1.025) Urine Protein (Neg-Trace) mg/dL Urine Glucose (UA) (Normal) mg/dL Urine Ketones (Negative) mg/dL Urine Blood (Negative) Urine Nitrite (Negative) Urine Bilirubin (Negative) Urine Urobilinogen (Normal) mg/dL Ur Leukocyte Esterase (Negative) Urine Microscopic RBC (0-3) per hpf Urine Microscopic WBC (0-3) per hpf Ur Eosinophil Smear (None Seen) % Ur Squamous Epith Cells (None-Few) per lpf Urine Bacteria (None-Few) per hpf Hyaline Casts (None-Few) per lpf Urine Osmolality 343 (300-1090) mOsm/kg Urine Creatinine mg/dL Protein/Creatinin Ratio (0.00-0.20) mg/mg Urine Sodium mEq/L Urine Potassium 36.5 mEq/L Urine Chloride mEq/L Urine Total Protein (1-14) mg/dL Nasal Screen MRSA (PCR) (Negative) Chlamy pneumoniae PCR Not Detected (Not Detect) Adenovirus (PCR) Not Detected (Not Detect) B. pertussis DNA (PCR) Not Detected (Not Detect) B.parapertussis DNA PCR Not Detected (Not Detect) Coronavirus OC43 (PCR) Not Detected (Not Detect) Coronavirus HKU1 (PCR) Not Detected (Not Detect) Coronavirus 229E (PCR) Not Detected (Not Detect) Coronavirus NL63 (PCR) Not Detected (Not Detect) Hep Bs Antigen (Nonreactive) Hep Bs Antibody mIU/mL Herpes Simplex Source HSV I (Not Detect) HSV II (Not Detect) HIV Ag/Ab Combo Qual (Nonreactive) Human Metapneumovir PCR Not Detected (Not Detect) Influenza A (H1) PCR Not Detected (Not Detect) Influ A (H1N1/09) PCR Not Detected (Not Detect) Influenza A (H3) PCR Not Detected (Not Detect) Influenza A Untype (PCR) Not Detected (Not Detect) Influenza Type B (PCR) Not Detected (Not Detect) M.pneumoniae DNA (PCR) Not Detected (Not Detect) Parainfluenza 1 (PCR) Not Detected (Not Detect) Parainfluenza 2 (PCR) Not Detected (Not Detect) Parainfluenza 3 (PCR) Not Detected (Not Detect) Parainfluenza 4 (PCR) Not Detected (Not Detect) RSV (PCR) Not Detected (Not Detect) Entero/Rhino (PCR) Not Detected (Not Detect) 06/17/18 06/17/18 06/17/18 Range/Units 18:15 11:56 11:30 Urine Color (Yellow) Urine Clarity (Clear) Urine pH (5.0-8.0) pH Units Ur Specific [place] (1.010-1.025) Urine Protein (Neg-Trace) mg/dL Urine Glucose (UA) (Normal) mg/dL Urine Ketones (Negative) mg/dL Urine Blood (Negative) Urine Nitrite (Negative) Urine Bilirubin (Negative) Urine Urobilinogen (Normal) mg/dL Ur Leukocyte Esterase (Negative) Urine Microscopic RBC (0-3) per hpf Urine Microscopic WBC (0-3) per hpf Ur Eosinophil Smear (None Seen) % Ur Squamous Epith Cells (None-Few) per lpf Urine Bacteria (None-Few) per hpf Hyaline Casts (None-Few) per lpf Urine Osmolality (300-1090) mOsm/kg Urine Creatinine mg/dL Protein/Creatinin Ratio (0.00-0.20) mg/mg Urine Sodium 128.8 mEq/L Urine Potassium 7.5 mEq/L Urine Chloride 135 mEq/L Urine Total Protein (1-14) mg/dL Nasal Screen MRSA (PCR) Negative (Negative) Chlamy pneumoniae PCR Not Detected (Not Detect) Adenovirus (PCR) Not Detected (Not Detect) B. pertussis DNA (PCR) Not Detected (Not Detect) B.parapertussis DNA PCR Not Detected (Not Detect) Coronavirus OC43 (PCR) Not Detected (Not Detect) Coronavirus HKU1 (PCR) Not Detected (Not Detect) Coronavirus 229E (PCR) Not Detected (Not Detect) Coronavirus NL63 (PCR) Not Detected (Not Detect) Hep Bs Antigen (Nonreactive) Hep Bs Antibody mIU/mL Herpes Simplex Source HSV I (Not Detect) HSV II (Not Detect) HIV Ag/Ab Combo Qual (Nonreactive) Human Metapneumovir PCR Not Detected (Not Detect) Influenza A (H1) PCR Not Detected (Not Detect) Influ A (H1N1/09) PCR Not Detected (Not Detect) Influenza A (H3) PCR Not Detected (Not Detect) Influenza A Untype (PCR) Not Detected (Not Detect) Influenza Type B (PCR) Not Detected (Not Detect) M.pneumoniae DNA (PCR) Not Detected (Not Detect) Parainfluenza 1 (PCR) Not Detected (Not Detect) Parainfluenza 2 (PCR) Not Detected (Not Detect) Parainfluenza 3 (PCR) Not Detected (Not Detect) Parainfluenza 4 (PCR) Not Detected (Not Detect) RSV (PCR) Not Detected (Not Detect) Entero/Rhino (PCR) Not Detected (Not Detect) - Impressions Impressions [facility] X-Ray 07/08/18 22:00 IMPRESSION: Enteric tube with tip in the distal esophagus. Advancement of the tube is recommended. D/ / Denise Mai Cha, MD / Denise Mai Cha, MD Interpreting Provider: Denise Mai Cha, MD X-Ray 07/08/18 22:58 IMPRESSION: Advancement of the gastric tube with the tip likely in the gastric antrum or pylorus and the sideport in the distal gastric body or antrum. D/ / Fawad Ortiz MD / Fawad Ortiz MD Interpreting Provider: Fawad Ortiz MD Exam - Constitutional Vitals: Temp Pulse Resp BP Pulse Ox 98.2 F 115 29 131/79 91 07/09/18 08:00 07/09/18 09:00 07/09/18 09:00 07/09/18 09:00 07/09/18 09:00 General appearance: cooperative, no acute distress, obese - Head Head exam: Present: atraumatic, normal inspection, normocephalic - Eye Eye exam: Present: EOMI, normal appearance, PERRL Pupils: Present: normal accommodation - ENT ENT exam: Present: mucous membranes moist - Neck Neck exam: Present: normal inspection Additional comments: Temporary dialysis line noted to the right neck with transparent dressing clean , dry, and intact. - Respiratory Respiratory exam: Present: CTAB. Absent: rales, respiratory distress, rhonchi, wheezes - Cardiovascular Cardiovascular exam: Present: +S1, +S2, tachycardia. Absent: irregular rhythm - GI/Abdominal GI/Abdominal exam: Present: normal bowel sounds, soft. Absent: distended, tenderness Additional comments: Rectal tube draining light brown liquid stool. Jacobo catheter noted to be draining clear yellow urine. OG tube infusing tube feeds at goal rate. - Extremities Exam Extremities exam: Present: normal inspection. Absent: joint swelling, pedal edema, tenderness - Neurological Exam Neurological exam: Present: altered (Sedated, but does open eyes and follows some commands. Does not offer any review of systems information.) - Psychiatric Psychiatric exam: Present: agitated (Attempting to pull at ET tube.) - Skin Skin exam: Present: dry, intact, normal color, warm - VTE Documentation of Mechanical Device: Intermittent pneumatic compression device Consult Discharge Plan - Plan Referrals: Sheryl Stahl, INSOLE RASPER [Primary Care Provider] - - Attending Attestation I examined this patient and my medical decision-making was reviewed with the Resident Physician. I agree with the documented findings, disposition and treatment plan as described except to the extent set forth below.
[2018-07-09] MEDS: Insulin Human Regular 100 UNIT in 0.9 % Sodium Chloride 100 ML IVC SCH (10:17)
[2018-07-09] MEDS: Norepinephrine 4 MG in D5% in Water 250 ML IVC SCH (12:33)
[2018-07-09 13:21] LABS: Calcium 8.7 mg/dL (8.6-10.3); Potassium 3.4 mEq/L (3.5-5.1)
[2018-07-09] MEDS ORDERED: Desmopressin 2 MCG in 0.9 % Sodium Chloride 50 ML IVPB ONE (14:45)
--- NOTE | 2018-07-09 14:51 | Nephrology Progress Note ---
Date of Encounter: 07/09/18 Time of Encounter: 08:30 - Assessment and Plan (1) LUCILA (acute kidney injury) Current Visit: Yes Status: Acute Polyuric LUCILA, urine output remains at about 5L per day Serum creatinine continues to decrease, 2.14 today down from 2.3 Patient does appear dry at this time, has wrinkles on his skin and dry mucous membranes He continues to have hypernatremia consistent with loss of free water Plan: -No indication for acute hemodialysis at this time -Serum creatinine likely in response to persistent hypovolemia with fluid deficit of 6.5L -Recommend continued 4-4.5 L free water Per OG at rate of 500mL every 4 hours + 100 mL D5W per hour (2) Hypernatremia Current Visit: Yes Status: Acute Suspected diabetes insipidus given duration of polyuric phase He now will have OG tube as he has been intubated again due to declining respiratory status We attempted 2mcg of DDAVP this morning, however did not see decrease in Serum sodium We will attempt another dose of DDAVP this time, remeasure sodium tomorrow Continue with aggressive fluid replacement (3) Acute respiratory failure with hypoxemia Current Visit: Yes Status: Acute Patient required intubation due to worsening respiratory status Management per critical care team (4) Anemia Current Visit: Yes Status: Acute Severe iron deficiency anemia Transfusion parameters per primary team Qualifiers: Anemia type: iron deficiency Iron deficiency anemia type: unspecified iron deficiency Qualified Code(s): D50.9 - Iron deficiency anemia, unspecified Subjective Principal diagnosis: septic shock Interval history: The patient remains intubated at this time but is also very alert. He continues to have significant urine output and is still hypernatremic. Objective - Vital Signs Vital signs: Vital Signs Temp Pulse Resp BP Pulse Ox 07/09/18 14:00 21 128/81 95 07/09/18 13:50 21 128/81 95 07/09/18 12:39 114 26 135/65 94 07/09/18 12:00 114 26 135/65 94 07/09/18 11:04 24 134/80 94 07/09/18 11:02 112 24 125/69 91 07/09/18 11:00 125 20 134/80 94 07/09/18 10:00 112 24 125/69 91 07/09/18 09:40 19 125/69 91 07/09/18 09:00 115 29 131/79 91 07/09/18 08:00 98.2 F 133 26 128/73 93 07/09/18 07:40 22 115/92 91 07/09/18 07:00 80 21 91/58 91 07/09/18 06:07 66 16 76/46 90 07/09/18 05:50 16 81/49 92 07/09/18 05:00 79 16 105/60 94 07/09/18 04:37 97.9 F 07/09/18 04:06 70 17 100/62 90 07/09/18 03:49 17 100/62 88 07/09/18 03:10 70 07/09/18 03:01 105 25 132/74 91 07/09/18 02:13 21 122/72 92 07/09/18 02:00 94 18 122/72 91 07/09/18 01:00 68 16 80/49 92 07/09/18 00:10 98.6 F 07/09/18 00:00 68 07/08/18 23:43 18 84/51 92 07/08/18 23:00 84 18 124/71 92 07/08/18 22:00 74 17 87/49 90 07/08/18 21:42 18 93/54 91 07/08/18 21:00 114 18 132/79 92 07/08/18 20:46 99.0 F 07/08/18 20:00 96 20 124/81 93 07/08/18 19:39 20 111/65 93 07/08/18 19:00 96 20 111/65 93 07/08/18 18:00 84 20 97/64 94 07/08/18 17:53 20 111/74 94 07/08/18 17:00 98.3 F 69 20 90/58 95 07/08/18 16:00 98.3 F 85 18 105/67 91 07/08/18 15:44 25 145/74 94 07/08/18 15:00 122 20 143/85 92 Intake and Output 07/08/18 07/09/18 07/09/18 23:59 07:59 15:59 Intake Total 3023 / 3023 1288.4 / 1288.4 2263.6 / 2263.6 Output Total 1800 / 1800 1675 / 1675 2275 / 2275 Balance 1223 / 1223 -386.6 / -386.6 -11.4 / -11.4 Intake: IV Fluids 1575 / 1575 288.4 / 288.4 1263.6 / 1263.6 Dextrose 5% 1,000 ML @ 70 mls/ 1000 / 1000 1000 / 1000 hr IVC .[id number] [facility] Rx#: [id number] PRECEDEX Premix 400 mcg In 100 200 / 200 100 / 100 100 / 100 ml @ 0.2 MCG/KG/HR 5.45 mls/hr IVC .[id number] [facility] Rx#:[id number] FentaNYL (PF) 2,500 MCG In 50 / 50 50 / 50 Empty Bag 1 Each @ 50 MCG/HR 1 mls/hr IVC [facility] Rx#: [id number] HumuLIN R 100 UNIT In 0.9 % 40 / 40 18.4 / 18.4 63.6 / 63.6 Sodium Chloride 100 ML @ Per Protocol IVC [facility] Rx#: [id number] Diprivan 1,000 mg In 100 ml @ 5 100 / 100 100 / 100 MCG/KG/MIN 3.345 mls/hr IVC . Q24H [facility] Rx#:[id number] Maxipime 2,000 MG In Water for 20 / 20 20 / 20 inj. (sterile) 20 ML @ 300 mls/ hr IVP Q12HR [facility] Rx#:[id number] Zovirax 750 MG In Dextrose 5% 265 / 265 250 ML @ 265 mls/hr IVPB Q12H [facility] Rx#:[id number] Tube Feeding 388 / 388 Free Water 500 / 500 500 / 500 500 / 500 Free Water Intake Amount 560 / 560 500 / 500 500 / 500 Output: Stool 300 / 300 Catheter 1800 / 1800 1675 / 1675 1974 / 1974 Other: Stool Size Copious Copious Stool Consistency liquid liquid liquid Stool Color Brown Brown # Bowel Movements 1 Weight 112 kg Blood Glucose* 145 165 110 Patient Weight 07/09/18 23:59 Weight 112 kg - General Appearance Exam: Gen: Vitals noted. No acute distress. Sedated on Mechanical ventilation. HEENT: Normocephalic, atraumatic. Dry mucous membranes. Neck: Supple. No adenopathy. Right internal jugular temporary hemodialysis catheter in place with no erythema surrounding Cardiac: RRR, no murmur, +S1/S2 Pulmonary: Clear to auscultation bilaterally, diminished in the right lung base Abdomen: soft, nontender, no guarding Extremities: 2+ bilateral lower extremity edema, nontender calf, no cyanosis or clubbing Neuro: Patient has been extubated and is largely off sedation. Follows commands. - Lab 07/09/18 05:00 07/09/18 12:00 Most recent lab results ABG pH 7.38 pH Units (7.32-7.45) 07/09/18 04:29 ABG pCO2 52 mmHg (35-45) H 07/09/18 04:29 ABG pO2 58 mmHg (85-104) L 07/09/18 04:29 ABG HCO3 31 mEq/L (21-27) H 07/09/18 04:29 ABG O2 Saturation 89 % (95-98) L 07/09/18 04:29 Calcium 8.7 mg/dL (8.6-10.3) 07/09/18 12:00 Phosphorus 4.6 mg/dL (2.7-4.5) H 07/09/18 05:00 Magnesium 1.5 mg/dL (1.6-2.6) L 07/09/18 05:00 Urine Creatinine 31 mg/dL 06/30/18 09:34 Urine Sodium 39.1 mEq/L 07/09/18 10:00 Urine Total Protein 52 mg/dL (1-14) H 06/30/18 09:34 - VTE Documentation of Mechanical Device: Intermittent pneumatic compression device Consult Discharge Plan - Plan Referrals: Sheryl Stahl CNP [Primary Care Provider] -
[2018-07-09] MEDS ORDERED: aMILoride 5 MG TABLET PO ONE (15:39)
[2018-07-09 20:13] LABS: Magnesium 1.8 mg/dL (1.6-2.6)
[2018-07-10] MEDS: Insulin LISPRO 300 UNITS/3 ML VIAL SQ SCH ×3 (02:56→08:14)
[2018-07-10] MEDS: Artificial Tears SOLN 15 ML BOTTLE BOTH EYES SCH ×5 (02:57→20:26)
[2018-07-10] MEDS: Dexmedetomidine HCl 400 MCG/100 ML MLS IVC SCH ×4 (03:09→23:44)
[2018-07-10 04:36] LABS: Basophils % 0.4 %; Eosinophils # 0.4 K/mcL (0.0-0.6); Eosinophils % 5.5 %; Hematocrit 23.6 % (37.5-50.1); Hemoglobin 7.2 g/dL (12.9-16.9); Immature Granulocytes % 0.4 % (0-4); Lymphocytes # 2.1 K/mcL (0.6-4.6); Lymphocytes % 27.2 %; Mean Corpuscular HGB Conc 30.5 g/dL (31.6-35.5); Mean Corpuscular Hemoglobin 30.9 pg (28.0-33.3); Mean Corpuscular Volume 101.3 fL (83.0-100.0); Mean Platelet Volume 11.6 fL (9.4-12.4); Monocytes # 0.6 K/mcL (0.0-1.3); Monocytes % 7.3 %; Neutrophils # 4.5 K/mcL (1.6-8.9); Platelet Count 150 K/mcL (140-400); Red Blood Count 2.33 M/mcL (4.19-5.50); Red Cell Distribution Width 15.9 % (11.5-14.5); Segmented Neutrophils % 59.2 %
[2018-07-10 04:49] LABS: Calcium 8.5 mg/dL (8.6-10.3); Magnesium 1.7 mg/dL (1.6-2.6); Phosphorous 4.8 mg/dL (2.7-4.5); Potassium 3.3 mEq/L (3.5-5.1)
[2018-07-10] MEDS: D5% in Water 1,000 ML IVC SCH ×3 (04:55→22:19)
[2018-07-10 05:01] LABS: ABG Base Excess 1 mEq/L (-2 to 3); ABG HCO3 28 mEq/L (21-27); ABG Oxygen Saturation 92 % (95-98); ABG PCO2 55 mmHg (35-45); ABG PH 7.31 pH Units (7.32-7.45); ABG PO2 73 mmHg (85-104); ABG TCO2 29 mEq/L (20-26); Blood Gas Modality PRVC; Blood Gas PEEP 5 cm H2O; Blood Gas Respiration Rate 16; Blood Gas VT 460 cc
[2018-07-10] MEDS: Cefepime HCl 2,000 MG in Water for inj. (sterile) 20 ML 20 ML IVP SCH ×2 (05:13→17:47)
[2018-07-10] MEDS: *HR* Heparin 5,000 UNIT/ML VIAL SQ SCH ×2 (05:13→17:47)
[2018-07-10] MEDS: Insulin Human Regular 100 UNIT in 0.9 % Sodium Chloride 100 ML IVC SCH (05:16)
[2018-07-10] MEDS ORDERED: Potassium Chloride Elixir 20 MEQ/15 ML UDC PO ONE (06:58)
[2018-07-10] MEDS: FentaNYL (PF) 2,500 MCG in EMPTY BAG 1 EACH IVC SCH ×2 (08:12→20:30)
[2018-07-10] MEDS: Nystatin SUSP 5 ML UD.LIQ PO SCH ×4 (08:27→20:25)
[2018-07-10] MEDS: Chlorhexidine Rinse 15 ML MOUTHWASH MM SCH ×2 (08:27→20:25)
[2018-07-10] MEDS: Pantoprazole 40 MG VIAL IVP SCH (08:27)
[2018-07-10] MEDS: Potassium Chloride Elixir 20 MEQ/15 ML UDC PO SCH (08:27)
[2018-07-10] MEDS: Norepinephrine 4 MG in D5% in Water 250 ML IVC SCH (08:28)
[2018-07-10] MEDS ORDERED: aMILoride 5 MG TABLET PO ONE (09:15)
--- NOTE | 2018-07-10 09:38 | Pulmonology Progress Note ---
<Bonnie Cummins E - Last Filed: 07/10/18 13:16> Date of Encounter: 07/10/18 Time of Encounter: 07:30 Assessment and Plan (1) Septic shock Current Visit: Yes Status: Acute sepsis suspected secondary to karo fungemia. Acyclovir stopped 07/09/18. Urine shows e.coli on urine culture from 07/01/18. Cefepime for acinitobacter positive sputum culture. (2) Acute respiratory failure with hypoxemia Current Visit: Yes Status: Acute Patient was extubated on 07/01/18 and put on Bipap, had to be reintubated 07/02/18 due to increased respiratory work, respiratory distress, and worsening encephalopathy. Will continue to monitor respiratory status. Trial of smart care again today, failed (3) Pneumonia Current Visit: Yes Status: Suspected Patient on cefepime per ID Sputum culture positive for acinitobacter Qualifiers: Pneumonia type: due to unspecified organism Laterality: bilateral Lung location: lower lobe of lung Qualified Code(s): J18.1 - Lobar pneumonia, unspecified organism (4) Oral lesion Current Visit: Yes Status: Resolved Noted on tongue PCR positive for HSV1 Acyclovir stopped 07/09/18 (5) COPD (chronic obstructive pulmonary disease) Current Visit: Yes Status: Chronic Patient extubated and on bipap on 07/01/18, reintubated 07/02/18 due to increased work of respiration, respiratory distress, and worsening encephalopathy. Continue to monitor Smart care trial again today Qualifiers: COPD type: emphysema Emphysema type: unspecified Qualified Code(s): J43.9 - Emphysema, unspecified (6) LUCILA (acute kidney injury) Current Visit: Yes Status: Acute Nephrology following. Patient on intermittent dialysis. Hypernatreima with free water deficit possibly due to polyuric phase of renal recovery, will continue to monitor Urine output yesterday 5800 Trial of desmopressin yesteerday for DI showed decrease in plasma sodium possible central DI CT scan of head/brain ordered to rule out central mass/area causing DI- negative (7) Hypocalcemia Current Visit: Yes Status: Resolved Continue to monitor. Calcium today at 8.5. Replace if necessary (8) Hypernatremia Current Visit: Yes Status: Acute Nephrology on board Possibly due to polyuric phase of renal recovery, Trial desmopressin for DI Na+ decreased to 144 CT scan head/brain ordered to check for central mass/area that could cause DI- negative Continue sodium checks and monitoring neurologic status (9) Hypokalemia Current Visit: Yes Status: Resolved K+ 3.3 today. HAS been given 40 units Potassium Chloride elixor. Continue to monitor and replace as necessary (10) Encephalopathy Current Visit: Yes Status: Acute Patient was more alert this morning able to follow simple commands, and head when asked if he was feeling a little better today. Neuro on board, believed to be from toxic metabolic causes. Fluconazole stopped 07/03/18, acyclovir stopped on 06/01/19 Acyclovir restarted 07/04/18 after exam showed new lesion above right upper lip in nasolabial fold area. Acyclovir stopped 07/09/18 (11) Thrombocytopenia Current Visit: Yes Status: Resolved Platelets 150. Continue to monitor. 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 No heparin was in use in the lines which could have caused the excessive clotting on dialysis filter. Also, platelet count could have been decreased do to septic shock. Heparin was held over the weekend, restarted 06/30/18 due to platelets staying steady, today platelets 128 (13) Type 2 diabetes mellitus Current Visit: Yes Status: Chronic Was on IV insulin drip overnight We will continue to monitor Qualifiers: Diabetes mellitus terminal supervisor insulin use: with terminal supervisor use Diabetes mellitus complication status: with unspecified complications Qualified Code(s) : E11.8 - Type 2 diabetes mellitus with unspecified complications; Z79.4 - assisted (current) use of insulin (14) UTI (urinary tract infection) Current Visit: Yes Status: Acute Urine culture from 07/01/18 grew gram negative brook Currently on cefepime Qualifiers: Urinary tract infection type: site unspecified Hematuria presence: without hematuria Qualified Code(s): N39.0 - Urinary tract infection, site not specified (15) DVT prophylaxis Current Visit: Yes Status: Acute ECPDs Heparin 5000 units sub q (16) Pressure ulcer Current Visit: Yes Status: Acute Patient has to stage II pressure ulcers in the buttock area Preventative turning every 2 hours Continue to monitor Qualifiers: Pressure injury location: buttock Pressure injury stage: stage 2 Laterality: unspecified laterality Qualified Code(s): L89.302 - Pressure ulcer of unspecified buttock, stage 2 Subjective Principal diagnosis: septic shock Interval history: Mr. Mccarthy was seen at bedside this morning. He was reintubated 07/01/18. Creatinine 2.04, nephrology following and will be doing intermediate dialysis, trial of DDAVP yesterday. WBC count 7.6 today. ABGs show pH 7.31, pCO2 55, pO2 73, O2 sat 91%. Restarted heprin for DVT prophylaxis 06/30/18. Currently on Cefapime. Acyclovir restarted 07/04/18 due to new lesion noted on the right upper lip/nasolabial fold area. Patient is easily awaken, more alert than yesterday, does follow some commands. Objective PUL Vital signs: Last Vital Signs Temp 99.6 F 07/10/18 07:00 Pulse 96 07/10/18 09:00 Resp 19 07/10/18 09:00 BP 117/68 07/10/18 09:00 Pulse Ox 92 07/10/18 09:00 General appearance: other (intubated and sedated) Eyes: injected ENT: oropharynx dry Auscultation: bilateral: diminished breath sounds Cardiovascular: regular rate and rhythm Gastrointestinal: normoactive bowel sounds, soft, non-tender Integumentary: other (two stage 2 ulcers noted on buttox region) Extremities: no cyanosis, pink and warm, edema (1+ pitting at feet) Ventilator Settings Ventilator Settings: Ventilator Settings, Last 8 Hours Ventilator Tidal Volume 460 Setting Ventilator Tidal Volume 460 Setting Ventilator Tidal Volume 460 Setting Ventilator Tidal Volume 460 Setting Ventilator Tidal Volume 460 Setting Ventilator Tidal Volume 460 Setting Ventilator Tidal Volume 460 Setting Ventilator Tidal Volume 460 Setting Ventilator Tidal Volume 460 Setting Ventilator Tidal Volume 460 Setting Ventilator Respiratory Rate 16 Setting Ventilator Respiratory Rate 16 Setting Ventilator Respiratory Rate 16 Setting Ventilator Respiratory Rate 16 Setting Ventilator Respiratory Rate 16 Setting Ventilator Respiratory Rate 16 Setting Ventilator Respiratory Rate 16 Setting Ventilator Respiratory Rate 16 Setting Ventilator Respiratory Rate 16 Setting Ventilator Respiratory Rate 16 Setting Actual Respiratory Rate 19 Actual Respiratory Rate 36 Actual Respiratory Rate 18 Actual Respiratory Rate 17 Actual Respiratory Rate 18 Actual Respiratory Rate 19 Actual Respiratory Rate 17 Actual Respiratory Rate 19 Actual Respiratory Rate 19 Actual Respiratory Rate 17 Positive End Expiratory 5 Pressure Positive End Expiratory 5 Pressure Positive End Expiratory 5 Pressure Positive End Expiratory 5 Pressure Positive End Expiratory 5 Pressure Positive End Expiratory 5 Pressure Positive End Expiratory 5 Pressure Positive End Expiratory 5 Pressure Positive End Expiratory 5 Pressure Positive End Expiratory 5 Pressure Peak Inspiratory Airway 26 Pressure Peak Inspiratory Airway 25 Pressure Peak Inspiratory Airway 35 Pressure Peak Inspiratory Airway 17 Pressure Peak Inspiratory Airway 23 Pressure Peak Inspiratory Airway 36 Pressure Results - Laboratory Findings CBC and BMP: 07/10/18 04:00 07/10/18 08:30 ABG ABG pH 7.31 pH Units (7.32-7.45) L 07/10/18 04:58 ABG pCO2 55 mmHg (35-45) H 07/10/18 04:58 ABG pO2 73 mmHg (85-104) L 07/10/18 04:58 ABG O2 Saturation 92 % (95-98) L 07/10/18 04:58 PT/INR, D-dimer PT 15.1 Seconds (9.4-12.1) H 07/06/18 04:00 D-Dimer 3465 ng/mLFEU (0-500) H 06/18/18 08:08 Abnormal lab findings: Abnormal lab results RBC 2.33 M/mcL (4.19-5.50) L 07/10/18 04:00 Hgb 7.2 g/dL (12.9-16.9) L 07/10/18 04:00 Hct 23.6 % (37.5-50.1) L 07/10/18 04:00 MCV 101.3 fL (83.0-100.0) H 07/10/18 04:00 MCHC 30.5 g/dL (31.6-35.5) L 07/10/18 04:00 RDW 15.9 % (11.5-14.5) H 07/10/18 04:00 Band Neutrophils % 6.0 % (0-4) H 06/27/18 03:00 Metamyelocytes % 2.0 % (0) H 06/27/18 03:00 Myelocytes % 6.0 % (0) H 06/27/18 03:00 Nucleated RBCs/100 WBC 0.1 /100 WBC (0) H 06/28/18 03:30 Reactive Lymphocytes Present (Not Present) A 07/01/18 03:00 Toxic Granulation Present (Not Present) A 06/18/18 03:05 Toxic Vacuolation Present (Not Present) A 06/22/18 03:45 Large Platelets Present (Not Present) A 06/23/18 03:15 Polychromasia 1+ (Not Present) A 06/27/18 03:00 Basophilic Stippling 1+ (Not Present) A 06/26/18 04:00 Anisocytosis 1+ (Not Present) A 06/28/18 03:30 Macrocytosis Present (Not Present) A 06/26/18 04:00 PT 15.1 Seconds (9.4-12.1) H 07/06/18 04:00 APTT 62.8 Seconds (26.0-36.0) H 06/23/18 08:00 Fibrinogen 578 mg/dL (169-393) H 06/18/18 08:08 D-Dimer 3465 ng/mLFEU (0-500) H 06/18/18 08:08 ABG pH 7.31 pH Units (7.32-7.45) L 07/10/18 04:58 ABG pCO2 55 mmHg (35-45) H 07/10/18 04:58 ABG pO2 73 mmHg (85-104) L 07/10/18 04:58 ABG HCO3 28 mEq/L (21-27) H 07/10/18 04:58 ABG Total CO2 29 mEq/L (20-26) H 07/10/18 04:58 ABG O2 Saturation 92 % (95-98) L 07/10/18 04:58 Potassium 3.3 mEq/L (3.5-5.1) L 07/10/18 04:00 Chloride 113 mEq/L (98-107) H 07/10/18 04:00 BUN 38 mg/dL (6-20) H 07/10/18 04:00 Creatinine 2.04 mg/dL (0.70-1.30) H 07/10/18 04:00 Est GFR ( Amer) 42 (> 60) L 07/10/18 04:00 Est GFR (Non-Af Amer) 34 (> 60) L 07/10/18 04:00 Glucose 179 mg/dL (70-105) H 07/10/18 04:00 POC Glucose 190 mg/dL (70-99) H 07/10/18 03:03 Serum Osmolality 327 mOsm/kg (280-300) H 07/01/18 09:48 Calculated Osmolality 318 (280-300) H 07/10/18 04:00 Calcium 8.5 mg/dL (8.6-10.3) L 07/10/18 04:00 Venous Ioniz Calcium 1.13 mmol/L (1.15-1.35) L 07/01/18 03:39 Phosphorus 4.8 mg/dL (2.7-4.5) H 07/10/18 04:00 Iron < 10 mcg/dL (65-175) L 07/01/18 03:00 Transferrin 146 mg/dL (203-362) L 07/01/18 03:00 Ferritin 647 ng/mL (20-250) H 07/01/18 03:00 Direct Bilirubin 0.4 mg/dL (0.0-0.2) H 06/23/18 03:15 Troponin I 0.92 ng/mL (< 0.04) H* 06/17/18 22:33 Serum Total Protein 6.3 g/dL (6.4-8.9) L 07/06/18 04:00 Albumin 2.6 g/dL (3.5-5.7) L 07/06/18 04:00 Globulin 3.7 g/dL (2.4-3.5) H 07/06/18 04:00 Albumin/Globulin Ratio 0.7 (1.1-2.2) L 07/06/18 04:00 Amylase 20 Units/L (29-103) L 06/23/18 16:27 Folate 2.5 ng/mL (3.0-16.0) L 06/27/18 11:25 Procalcitonin 107.11 ng/mL (<=0.07) H 06/17/18 16:40 TSH 7.234 mcIU/mL (0.340-5.600) H 06/27/18 11:25 Ur Specific [place] < 1.005 (1.010-1.025) L 06/30/18 09:34 Urine Blood Moderate (Negative) H 06/30/18 09:34 Ur Leukocyte Esterase Moderate (Negative) H 06/30/18 09:34 Urine Microscopic RBC 3-5 per hpf (0-3) H 06/30/18 09:34 Urine Microscopic WBC 50-100 per hpf (0-3) H 06/30/18 09:34 Urine Bacteria Many per hpf (None-Few) H 06/30/18 09:34 Urine Osmolality 137 mOsm/kg (300-1090) L 07/09/18 10:00 Protein/Creatinin Ratio 1.68 mg/mg (0.00-0.20) H 06/30/18 09:34 Urine Total Protein 52 mg/dL (1-14) H 06/30/18 09:34 Vancomycin Trough 19 mcg/mL (5-10) H 07/05/18 04:00 Urine Opiates Screen Positive ng/mL (Ogftwy=369) H 06/18/18 10:37 U Benzodiazepines Scrn Positive ng/mL (Vjxlqx=483) H 06/18/18 10:37 HSV I DETECTED (Not Detect) A 06/24/18 15:10 - Microbiology Findings Microbiology Findings: Microbiology, Last 48 Hours 07/04/18 11:59 Blood Culture - Final Peripheral Venipuncture No growth. Final report. 07/04/18 10:34 Blood Culture - Final Peripheral Venipuncture No growth. Final report. - Clinical Findings Intake & Output: Intake & Output 07/09/18 07/10/18 07/10/18 23:59 07:59 15:59 Intake Total 3964.1 / 3964.1 2389.1 / 2389.1 750 / 750 Output Total 2150 / 2150 300 / 300 225 / 225 Balance 1814.1 / 1814.1 2089.1 / 2089.1 525 / 525 Weight 112.1 kg - VTE Documentation of Mechanical Device: Intermittent pneumatic compression device Consult Discharge Plan - Plan Referrals: Sheryl Stahl CNP [Primary Care Provider] - <Ludin Barrett - Last Filed: 07/10/18 15:19> Date of Encounter: 07/10/18 Assessment and Plan (1) Acute respiratory failure with hypoxemia Current Visit: Yes Status: Acute (2) Septic shock Current Visit: Yes Status: Acute (3) Systolic heart failure Current Visit: Yes Status: Deleted Qualifiers: Heart failure chronicity: acute on chronic Qualified Code(s): I50.23 - Acute on chronic systolic (congestive) heart failure (4) LUCILA (acute kidney injury) Current Visit: Yes Status: Acute (5) DVT prophylaxis Current Visit: Yes Status: Acute (6) Type 2 diabetes mellitus Current Visit: Yes Status: Chronic Qualifiers: Diabetes mellitus terminal supervisor insulin use: with chcf use Diabetes mellitus complication status: with unspecified complications Qualified Code(s) : E11.8 - Type 2 diabetes mellitus with unspecified complications; Z79.4 - terminal supervisor (current) use of insulin (7) COPD (chronic obstructive pulmonary disease) Current Visit: Yes Status: Chronic Qualifiers: COPD type: emphysema Emphysema type: unspecified Qualified Code(s): J43.9 - Emphysema, unspecified (8) Thrombocytopenia Current Visit: Yes Status: Resolved Objective PUL Vital signs: Last Vital Signs Temp 100.9 F H 07/10/18 11:50 Pulse 96 07/10/18 15:00 Resp 18 07/10/18 15:00 BP 128/69 07/10/18 15:00 Pulse Ox 91 07/10/18 15:00 Ventilator Settings Ventilator Settings: Ventilator Settings, Last 8 Hours Ventilator Tidal Volume 460 Setting Ventilator Tidal Volume 460 Setting Ventilator Tidal Volume 460 Setting Ventilator Tidal Volume 460 Setting Ventilator Tidal Volume 460 Setting Ventilator Tidal Volume 460 Setting Ventilator Tidal Volume 460 Setting Ventilator Tidal Volume 460 Setting Ventilator Tidal Volume 460 Setting Ventilator Tidal Volume 460 Setting Ventilator Tidal Volume 460 Setting Ventilator Respiratory Rate 16 Setting Ventilator Respiratory Rate 16 Setting Ventilator Respiratory Rate 16 Setting Ventilator Respiratory Rate 16 Setting Ventilator Respiratory Rate 16 Setting Ventilator Respiratory Rate 16 Setting Ventilator Respiratory Rate 16 Setting Ventilator Respiratory Rate 16 Setting Ventilator Respiratory Rate 16 Setting Ventilator Respiratory Rate 16 Setting Ventilator Respiratory Rate 16 Setting Actual Respiratory Rate 18 Actual Respiratory Rate 21 Actual Respiratory Rate 18 Actual Respiratory Rate 19 Actual Respiratory Rate 19 Actual Respiratory Rate 19 Actual Respiratory Rate 19 Actual Respiratory Rate 19 Actual Respiratory Rate 20 Actual Respiratory Rate 19 Actual Respiratory Rate 36 Actual Respiratory Rate 19 Positive End Expiratory 5 Pressure Positive End Expiratory 5 Pressure Positive End Expiratory 5 Pressure Positive End Expiratory 5 Pressure Positive End Expiratory 5 Pressure Positive End Expiratory 5 Pressure Positive End Expiratory 5 Pressure Positive End Expiratory 5 Pressure Positive End Expiratory 5 Pressure Positive End Expiratory 5 Pressure Positive End Expiratory 5 Pressure Peak Inspiratory Airway 23 Pressure Peak Inspiratory Airway 24 Pressure Peak Inspiratory Airway 22 Pressure Peak Inspiratory Airway 27 Pressure Results - Laboratory Findings CBC and BMP: 07/10/18 04:00 07/10/18 12:30 ABG ABG pH 7.31 pH Units (7.32-7.45) L 07/10/18 04:58 ABG pCO2 55 mmHg (35-45) H 07/10/18 04:58 ABG pO2 73 mmHg (85-104) L 07/10/18 04:58 ABG O2 Saturation 92 % (95-98) L 07/10/18 04:58 PT/INR, D-dimer PT 15.1 Seconds (9.4-12.1) H 07/06/18 04:00 D-Dimer 3465 ng/mLFEU (0-500) H 06/18/18 08:08 Abnormal lab findings: Abnormal lab results RBC 2.33 M/mcL (4.19-5.50) L 07/10/18 04:00 Hgb 7.2 g/dL (12.9-16.9) L 07/10/18 04:00 Hct 23.6 % (37.5-50.1) L 07/10/18 04:00 MCV 101.3 fL (83.0-100.0) H 07/10/18 04:00 MCHC 30.5 g/dL (31.6-35.5) L 07/10/18 04:00 RDW 15.9 % (11.5-14.5) H 07/10/18 04:00 Band Neutrophils % 6.0 % (0-4) H 06/27/18 03:00 Metamyelocytes % 2.0 % (0) H 06/27/18 03:00 Myelocytes % 6.0 % (0) H 06/27/18 03:00 Nucleated RBCs/100 WBC 0.1 /100 WBC (0) H 06/28/18 03:30 Reactive Lymphocytes Present (Not Present) A 07/01/18 03:00 Toxic Granulation Present (Not Present) A 06/18/18 03:05 Toxic Vacuolation Present (Not Present) A 06/22/18 03:45 Large Platelets Present (Not Present) A 06/23/18 03:15 Polychromasia 1+ (Not Present) A 06/27/18 03:00 Basophilic Stippling 1+ (Not Present) A 06/26/18 04:00 Anisocytosis 1+ (Not Present) A 06/28/18 03:30 Macrocytosis Present (Not Present) A 06/26/18 04:00 PT 15.1 Seconds (9.4-12.1) H 07/06/18 04:00 APTT 62.8 Seconds (26.0-36.0) H 06/23/18 08:00 Fibrinogen 578 mg/dL (169-393) H 06/18/18 08:08 D-Dimer 3465 ng/mLFEU (0-500) H 06/18/18 08:08 ABG pH 7.31 pH Units (7.32-7.45) L 07/10/18 04:58 ABG pCO2 55 mmHg (35-45) H 07/10/18 04:58 ABG pO2 73 mmHg (85-104) L 07/10/18 04:58 ABG HCO3 28 mEq/L (21-27) H 07/10/18 04:58 ABG Total CO2 29 mEq/L (20-26) H 07/10/18 04:58 ABG O2 Saturation 92 % (95-98) L 07/10/18 04:58 Potassium 3.3 mEq/L (3.5-5.1) L 07/10/18 04:00 Chloride 113 mEq/L (98-107) H 07/10/18 04:00 BUN 38 mg/dL (6-20) H 07/10/18 04:00 Creatinine 2.04 mg/dL (0.70-1.30) H 07/10/18 04:00 Est GFR ( Amer) 42 (> 60) L 07/10/18 04:00 Est GFR (Non-Af Amer) 34 (> 60) L 07/10/18 04:00 Glucose 179 mg/dL (70-105) H 07/10/18 04:00 POC Glucose 179 mg/dL (70-99) H 07/10/18 13:52 Serum Osmolality 310 mOsm/kg (280-300) H 07/10/18 08:30 Calculated Osmolality 318 (280-300) H 07/10/18 04:00 Calcium 8.5 mg/dL (8.6-10.3) L 07/10/18 04:00 Venous Ioniz Calcium 1.13 mmol/L (1.15-1.35) L 07/01/18 03:39 Phosphorus 4.8 mg/dL (2.7-4.5) H 07/10/18 04:00 Iron < 10 mcg/dL (65-175) L 07/01/18 03:00 Transferrin 146 mg/dL (203-362) L 07/01/18 03:00 Ferritin 647 ng/mL (20-250) H 07/01/18 03:00 Direct Bilirubin 0.4 mg/dL (0.0-0.2) H 06/23/18 03:15 Troponin I 0.92 ng/mL (< 0.04) H* 06/17/18 22:33 Serum Total Protein 6.3 g/dL (6.4-8.9) L 07/06/18 04:00 Albumin 2.6 g/dL (3.5-5.7) L 07/06/18 04:00 Globulin 3.7 g/dL (2.4-3.5) H 07/06/18 04:00 Albumin/Globulin Ratio 0.7 (1.1-2.2) L 07/06/18 04:00 Amylase 20 Units/L (29-103) L 06/23/18 16:27 Folate 2.5 ng/mL (3.0-16.0) L 06/27/18 11:25 Procalcitonin 107.11 ng/mL (<=0.07) H 06/17/18 16:40 TSH 7.234 mcIU/mL (0.340-5.600) H 06/27/18 11:25 Ur Specific [place] < 1.005 (1.010-1.025) L 06/30/18 09:34 Urine Blood Moderate (Negative) H 06/30/18 09:34 Ur Leukocyte Esterase Moderate (Negative) H 06/30/18 09:34 Urine Microscopic RBC 3-5 per hpf (0-3) H 06/30/18 09:34 Urine Microscopic WBC 50-100 per hpf (0-3) H 06/30/18 09:34 Urine Bacteria Many per hpf (None-Few) H 06/30/18 09:34 Urine Osmolality 287 mOsm/kg (300-1090) L 07/10/18 08:30 Protein/Creatinin Ratio 1.68 mg/mg (0.00-0.20) H 06/30/18 09:34 Urine Total Protein 52 mg/dL (1-14) H 06/30/18 09:34 Vancomycin Trough 19 mcg/mL (5-10) H 07/05/18 04:00 Urine Opiates Screen Positive ng/mL (Xfhhlk=368) H 06/18/18 10:37 U Benzodiazepines Scrn Positive ng/mL (Vfmokz=620) H 06/18/18 10:37 HSV I DETECTED (Not Detect) A 06/24/18 15:10 - Microbiology Findings Microbiology Findings: Microbiology, Last 48 Hours 07/04/18 11:59 Blood Culture - Final Peripheral Venipuncture No growth. Final report. 07/04/18 10:34 Blood Culture - Final Peripheral Venipuncture No growth. Final report. - Clinical Findings Intake & Output: Intake & Output 07/09/18 07/10/18 07/10/18 23:59 07:59 15:59 Intake Total 3964.1 / 3964.1 2389.1 / 2389.1 935 / 935 Output Total 2150 / 2150 300 / 300 775 / 775 Balance 1814.1 / 1814.1 2089.1 / 208.1 160 / 160 Weight 112.1 kg - Attending Attestation - Attending Attestation I saw and evaluated this patient and my medical decision-making was reviewed with the Resident Physician. I agree with the documented findings, disposition and treatment plan as described except to the extent set forth below. We independently had [id number] contact with the patient I spent 35 minutes of Critical Care time with this patient. It involved decision making of high complexity to assess, manipulate, and support vital organ system failure and/or to prevent further life threatening deterioration of the patient's condition. The time involved in the performance of separately reportable procedures was not counted toward critical care time. Patient seen and examined at bedside Labs, radiology, chart personally reviewed. Management was reviewed during multidisciplinary critical care rounds. SALVAGE REPAIRER: Patient has acute encephalopathy secondary to possibly toxic/metabolic with underlying pneumonia and hypernatremia possibly contributing to this patient is started to follow commands on and off . 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 Pulm: Patient has still some V/Q mismatch has acceptable oxygenation and ventilation A baumanii pneumonia is getting better with current management will do smart care liberation from ventilator 07/09 Did smart care today patient needed higher PS and he tolerated for 45 minutes will attempt daily this current V/Q mismatch contributed by pneumonia and hydrostatic pulmonary edema. 07/10 Patient was put on Smart care Pressure support ventilation and tolerated for hardly 30 minutes and now concerned that urine with adequate treatment of pneumonia and hydrostatic pulmonary edema patient is still failing spontaneous breathing trial since patient is a prolonged mechanical ventilation goes concerned that he developed critical illness myopathy or polyneuropathy admitting it will be safe to do tracheostomy in situ trying to extubate we will discuss with the family regarding this option of tracheostomy. Cards: Patient septic shock is resolved.He is hemodynamically stable FEN-GI: Diet according to nutrition.Patient has Moderate Non -Severe Protein Calorie Malnutrition. Renal: Patient renal function as improving labs and output reviewed nephrology on board . Patient has diabetes insipidus gave DDAVP he didnt respond to it more looks like nephrogenic DI will try Amiloride will increase the amount of free water for next 12 hrs . 07/10 since patient responded to DDAVP more looks like central diabetes insipidus since the sodium is corrected fast hold off all the free water and reassess. ID: Reviewed broad-spectrum antibiotics to continue antibiotics according to ID recs Heme/Onc: Thromboprophylaxis Endo: Glucose Monitored Integ/MSK: Skin Care per routine ICU Nursing Protocol . Patient has 2 stage II Buttock ulcers Lines: All lines examined without evidence of infection : Dispo: Critically ill.
--- NOTE | 2018-07-10 10:26 | Infectious Disease Progress No ---
Date of Encounter: 07/10/18 Time of Encounter: 10:24 - Assessment and Plan (1) Septic shock Current Visit: Yes Status: Acute The patient had 4 SIRS criteria plus lactic acidosis, acute kidney injury, acute encephalopathy, and hypotension requiring vasopressors. Likely secondary to candidemia, UTI, possible HSV encephalitis, and PNA. Improved. Leukocytosis resolved. Low-grade fever yesterday, afebrile overnight. Tachycardia has resolved. Remains off vasopressors. Blood cultures obtained 06/17/18 are +2 out of 2 sets for Marisela albicans, nation- sensitive. Repeat blood cultures obtained 06/19/18 are negative 2 sets. Additional blood cultures drawn 07/04/18 are negative x 2 sets. Possible aspiration event over the weekend. Will repeat CXR in the morning. Add Flagyl for anaerobic coverage. Continue Cefepime 2 grams IV Q12H for now. (2) Candidemia Current Visit: Yes Status: Resolved Causative organism: Marisela albicans. Source: unclear. CT of the abdomen and pelvis is negative. He has no indwelling lines or catheters. His urine culture is positive for C. albicans. Blood cultures obtained 06/17/18 are +2 out of 2 sets for Marisela albicans, nation- sensitive. Repeat blood cultures obtained 06/19/18 are negative 2 sets. Additional blood cultures 07/04/18 are negative x 2 sets. Repeat LFTs normal. Completed 14 days of IV fluconazole. Resolved. Ophthalmology consult noted and appreciated. (3) Pneumonia Current Visit: Yes Status: Suspected Location: Bilateral lower lobes. Causative organism: Unclear. Consider aspiration since the patient had altered mental status and was recently intubated. CT of the chest showed bilateral lower lobe infiltrates versus atelectasis. The patient does have a large amount of secretions coming from his ET tube. Discussed with the pulmonary team. Concern for pneumonia from their standpoint. MRSA screen completed 06/17/18 is negative. Initial sputum culture negative. Repeat Sputum culture 07/04/18 positive for A. baummannii. S. pneumo and Legionella UAT 06/20/18.--> negative. Repeat CXR 06/23/18 showed mild pulmonary vascular congestion and atelectasis and mild pleural effusion at the right lung base, increased. CT scan of the chest 06/23/18 negative for PNA. CXR 07/01/18 showed stable RLL disease and improved LLL disease. CXR 07/07/18 showed mild pulmonary vascular congestion and mild right pleural effusion. Vanc and Zosyn discontinued 06/25/18 after 9 days. Continue Cefepime 2 grams IV Q12H. Dosing discussed with Leon Miles. CrCl ~29. (day 6) Duration of treatment depends on the clinical picture. Monitor renal function and for drug toxicity and dose-adjust antibiotics. Qualifiers: Pneumonia type: due to unspecified organism Laterality: bilateral Lung location: lower lobe of lung Qualified Code(s): J18.1 - Lobar pneumonia, unspecified organism (4) UTI (urinary tract infection) Current Visit: Yes Status: Acute Causative organism 06/18/18: C. albicans. Completed 14+ days of fluconazole. Repeat urine culture 07/01/18 grew E. coli, resistant to ampicillin and Unasyn. Likely secondary to jacobo catheter. Continue Cefepime. (day 6) Switch out jacobo catheter. Duration of treatment depends on the clinical picture. Monitor renal function and for drug toxicity and dose-adjust antibiotics. Qualifiers: Urinary tract infection type: site unspecified Hematuria presence: without hematuria Qualified Code(s): N39.0 - Urinary tract infection, site not specified (5) Encephalopathy Current Visit: Yes Status: Acute Etiology unclear, but likely related to sepsis. Per the patient's , the patient did have any complaints of neck pain, stiffness, or headache. Unable to assess mental status since the patient remains intubated and sedated. CT head negative for intracranial abnormality. 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 LP attempted by the pulm/CC team and IR was unsuccessful. Neurology consulted. Appreciate recommendations. Signed off. Acyclovir stopped by the pulmonary team, re-started 07/04/18. Has completed 14 days of IV acyclovir. Can discontinue at this point. Patient awakens when sedation is off and follows some commands. Failed CPAP this morning. (6) LUCILA (acute kidney injury) Current Visit: Yes Status: Acute Likely multifactorial: sepsis + hypotension + other. CRRT started 06/19/18 and stopped 06/26/18. Creatinine improved. Urine output remains adequate. Nephrology consulted and following. Continue to trend. Dose-adjust medications. (7) Lactic acidosis Current Visit: Yes Status: Resolved Likely secondary to sepsis. Resolved. (8) Thrombocytopenia Current Visit: Yes Status: Resolved Likely secondary to sepsis. LFTs abnormal on admission. Repeat LFTs normal. Resolved Continue to trend. No acute bleeding noted on exam. Further workup and management per the primary team. (9) Acute respiratory failure with hypoxemia Current Visit: Yes Status: Acute Likely secondary to PNA vs. pulmonary edema. Extubated 07/01/18. Re-intubated 07/04/18. Management per the pulmonary team. (10) Hypokalemia Current Visit: Yes Status: Resolved Replacement per the primary team. (11) Elevated troponin Current Visit: Yes Status: Acute Management per the primary team. (12) Type 2 diabetes mellitus Current Visit: Yes Status: Chronic Recommend aggressive glucose monitoring and control. Management per the primary team. 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 PCR positive for HSV 1. New lesion noted to the right nasolabial fold: HSV vs. other. Completed 14 days of acyclovir. Resolved. (15) Sinusitis Current Visit: Yes Status: Resolved CT of the head 06/23/18 showed sinusitis of the bilateral sphenoid and ethmoid sinuses. Causative organism unclear. Treated with 9 days of Vanc and Zosyn. Qualifiers: Sinusitis location: unspecified location Chronicity: acute Recurrence: non-recurrent Qualified Code(s): J01.90 - Acute sinusitis, unspecified - Subjective Interval history: Patient seen and examined. Low-grade fever yesterday, none overnight. Tachycardia resolved. Failed CPAP this morning. WBC has normalized. According to the nursing notes, the patient had an episode of possible aspirationtwo nights ago when he was given free water via his NG tube that apparently had displaced. Stools are loose, but do not look like C. diff. Minimal output from rectal tube per nursing. Patient iawakens to verbal stimuli. Opens eyes on commands and squeezes my hands. Shakes his head "no" when asked if he is in pain. Infect Dis PN-Objective Data - Labs CBC & Chem 7: 07/11/18 03:40 07/11/18 03:40 Labs: Laboratory Results - last 24 hr 07/09/18 07/09/18 07/09/18 10:00 10:00 10:57 WBC RBC Hgb Hct MCV MCH MCHC RDW Plt Count MPV Immature Gran % Seg Neutrophils % Lymphocytes % Monocytes % Eosinophils % Basophils % Neutrophils # Lymphocytes # Monocytes # Eosinophils # Basophils # Sample Site ABG pH ABG pCO2 ABG pO2 ABG HCO3 ABG Total CO2 ABG O2 Saturation ABG Base Excess Michael Test Respiration Rate O2 Delivery Device Blood Gas Modality Inspired O2 Tidal Volume PEEP Sodium Potassium Chloride Carbon Dioxide BUN Creatinine Est GFR ( Amer) Est GFR (Non-Af Amer) BUN/Creatinine Ratio Glucose POC Glucose 186 H Calculated Osmolality Calcium Phosphorus Magnesium Urine Osmolality 137 L Urine Sodium 39.1 07/09/18 07/09/18 07/09/18 12:00 12:08 13:54 WBC RBC Hgb Hct MCV MCH MCHC RDW Plt Count MPV Immature Gran % Seg Neutrophils % Lymphocytes % Monocytes % Eosinophils % Basophils % Neutrophils # Lymphocytes # Monocytes # Eosinophils # Basophils # Sample Site ABG pH ABG pCO2 ABG pO2 ABG HCO3 ABG Total CO2 ABG O2 Saturation ABG Base Excess Michael Test Respiration Rate O2 Delivery Device Blood Gas Modality Inspired O2 Tidal Volume PEEP Sodium 156 H Potassium 3.4 L Chloride 120 H Carbon Dioxide 29 BUN 37 H Creatinine 2.14 H Est GFR ( Amer) 39 L Est GFR (Non-Af Amer) 32 L BUN/Creatinine Ratio 17 Glucose 124 H POC Glucose 128 H 110 H Calculated Osmolality 332 H Calcium 8.7 Phosphorus Magnesium Urine Osmolality Urine Sodium 07/09/18 07/09/18 07/09/18 15:03 16:01 17:03 WBC RBC Hgb Hct MCV MCH MCHC RDW Plt Count MPV Immature Gran % Seg Neutrophils % Lymphocytes % Monocytes % Eosinophils % Basophils % Neutrophils # Lymphocytes # Monocytes # Eosinophils # Basophils # Sample Site ABG pH ABG pCO2 ABG pO2 ABG HCO3 ABG Total CO2 ABG O2 Saturation ABG Base Excess Michael Test Respiration Rate O2 Delivery Device Blood Gas Modality Inspired O2 Tidal Volume PEEP Sodium Potassium Chloride Carbon Dioxide BUN Creatinine Est GFR ( Amer) Est GFR (Non-Af Amer) BUN/Creatinine Ratio Glucose POC Glucose 121 H 137 H 142 H Calculated Osmolality Calcium Phosphorus Magnesium Urine Osmolality Urine Sodium 07/09/18 07/09/18 07/09/18 17:58 18:40 18:56 WBC RBC Hgb Hct MCV MCH MCHC RDW Plt Count MPV Immature Gran % Seg Neutrophils % Lymphocytes % Monocytes % Eosinophils % Basophils % Neutrophils # Lymphocytes # Monocytes # Eosinophils # Basophils # Sample Site ABG pH ABG pCO2 ABG pO2 ABG HCO3 ABG Total CO2 ABG O2 Saturation ABG Base Excess Michael Test Respiration Rate O2 Delivery Device Blood Gas Modality Inspired O2 Tidal Volume PEEP Sodium 154 H Potassium Chloride Carbon Dioxide BUN Creatinine Est GFR ( Amer) Est GFR (Non-Af Amer) BUN/Creatinine Ratio Glucose POC Glucose 194 H 186 H Calculated Osmolality Calcium Phosphorus Magnesium 1.8 Urine Osmolality Urine Sodium 07/09/18 07/09/18 07/09/18 20:14 21:07 22:08 WBC RBC Hgb Hct MCV MCH MCHC RDW Plt Count MPV Immature Gran % Seg Neutrophils % Lymphocytes % Monocytes % Eosinophils % Basophils % Neutrophils # Lymphocytes # Monocytes # Eosinophils # Basophils # Sample Site ABG pH ABG pCO2 ABG pO2 ABG HCO3 ABG Total CO2 ABG O2 Saturation ABG Base Excess Michael Test Respiration Rate O2 Delivery Device Blood Gas Modality Inspired O2 Tidal Volume PEEP Sodium Potassium Chloride Carbon Dioxide BUN Creatinine Est GFR ( Amer) Est GFR (Non-Af Amer) BUN/Creatinine Ratio Glucose POC Glucose 162 H 167 H 129 H Calculated Osmolality Calcium Phosphorus Magnesium Urine Osmolality Urine Sodium 07/09/18 07/10/18 07/10/18 23:05 00:03 01:02 WBC RBC Hgb Hct MCV MCH MCHC RDW Plt Count MPV Immature Gran % Seg Neutrophils % Lymphocytes % Monocytes % Eosinophils % Basophils % Neutrophils # Lymphocytes # Monocytes # Eosinophils # Basophils # Sample Site ABG pH ABG pCO2 ABG pO2 ABG HCO3 ABG Total CO2 ABG O2 Saturation ABG Base Excess Michael Test Respiration Rate O2 Delivery Device Blood Gas Modality Inspired O2 Tidal Volume PEEP Sodium Potassium Chloride Carbon Dioxide BUN Creatinine Est GFR ( Amer) Est GFR (Non-Af Amer) BUN/Creatinine Ratio Glucose POC Glucose 146 H 132 H 148 H Calculated Osmolality Calcium Phosphorus Magnesium Urine Osmolality Urine Sodium 07/10/18 07/10/18 07/10/18 02:09 03:03 04:00 WBC 7.6 RBC 2.33 L Hgb 7.2 L Hct 23.6 L MCV 101.3 H MCH 30.9 MCHC 30.5 L RDW 15.9 H Plt Count 150 MPV 11.6 Immature Gran % 0.4 Seg Neutrophils % 59.2 Lymphocytes % 27.2 Monocytes % 7.3 Eosinophils % 5.5 Basophils % 0.4 Neutrophils # 4.5 Lymphocytes # 2.1 Monocytes # 0.6 Eosinophils # 0.4 Basophils # 0.0 Sample Site ABG pH ABG pCO2 ABG pO2 ABG HCO3 ABG Total CO2 ABG O2 Saturation ABG Base Excess Michael Test Respiration Rate O2 Delivery Device Blood Gas Modality Inspired O2 Tidal Volume PEEP Sodium Potassium Chloride Carbon Dioxide BUN Creatinine Est GFR ( Amer) Est GFR (Non-Af Amer) BUN/Creatinine Ratio Glucose POC Glucose 167 H 190 H Calculated Osmolality Calcium Phosphorus Magnesium Urine Osmolality Urine Sodium 07/10/18 07/10/18 07/10/18 04:00 04:58 08:30 WBC RBC Hgb Hct MCV MCH MCHC RDW Plt Count MPV Immature Gran % Seg Neutrophils % Lymphocytes % Monocytes % Eosinophils % Basophils % Neutrophils # Lymphocytes # Monocytes # Eosinophils # Basophils # Sample Site L Radial ABG pH 7.31 L ABG pCO2 55 H ABG pO2 73 L ABG HCO3 28 H ABG Total CO2 29 H ABG O2 Saturation 92 L ABG Base Excess 1 Michael Test N/A Respiration Rate 16 O2 Delivery Device Adult Vent Blood Gas Modality PRVC Inspired O2 50.0 Tidal Volume 460 PEEP 5 Sodium 147 H 144 Potassium 3.3 L Chloride 113 H Carbon Dioxide 27 BUN 38 H Creatinine 2.04 H Est GFR ( Amer) 42 L Est GFR (Non-Af Amer) 34 L BUN/Creatinine Ratio 19 Glucose 179 H POC Glucose Calculated Osmolality 318 H Calcium 8.5 L Phosphorus 4.8 H Magnesium 1.7 Urine Osmolality Urine Sodium Cultures: Cultures 07/04/18 11:59 Blood Culture - Final Peripheral Venipuncture No growth. Final report. 07/04/18 10:34 Blood Culture - Final Peripheral Venipuncture No growth. Final report. 07/04/18 07:38 Sputum Culture - Final Aspirate Acinetobacter baumannii complx 07/01/18 09:03 Urine Culture - Final Urine,Catheterized Escherichia coli 06/24/18 11:35 Blood Culture - Final Peripheral Venipuncture No growth. Final report. 06/24/18 11:35 Blood Culture - Final Peripheral Venipuncture No growth. Final report. 06/19/18 12:46 Blood Culture - Final Peripheral Venipuncture No growth. Final report. 06/19/18 12:46 Blood Culture - Final Peripheral Venipuncture No growth. Final report. 06/18/18 20:45 Sputum Culture - Final Sputum 06/20/18 11:30 Legionella Antigen - Final Urine,[place] Streptococcus pneumoniae Antigen (M - Final Serology 07/09/18 07/09/18 07/05/18 Range/Units 10:00 10:00 17:50 Urine Color (Yellow) Urine Clarity (Clear) Urine pH (5.0-8.0) pH Units Ur Specific Brandon (1.010-1.025) Urine Protein (Neg-Trace) mg/dL Urine Glucose (UA) (Normal) mg/dL Urine Ketones (Negative) mg/dL Urine Blood (Negative) Urine Nitrite (Negative) Urine Bilirubin (Negative) Urine Urobilinogen (Normal) mg/dL Ur Leukocyte Esterase (Negative) Urine Microscopic RBC (0-3) per hpf Urine Microscopic WBC (0-3) per hpf Ur Eosinophil Smear (None Seen) % Ur Squamous Epith Cells (None-Few) per lpf Urine Bacteria (None-Few) per hpf Hyaline Casts (None-Few) per lpf Urine Osmolality 137 L (300-1090) mOsm/kg Urine Creatinine mg/dL Protein/Creatinin Ratio (0.00-0.20) mg/mg Urine Sodium 39.1 mEq/L Urine Potassium mEq/L Urine Chloride mEq/L Urine Total Protein (1-14) mg/dL Nasal Screen MRSA (PCR) Negative (Negative) Chlamy pneumoniae PCR (Not Detect) Adenovirus (PCR) (Not Detect) B. pertussis DNA (PCR) (Not Detect) B.parapertussis DNA PCR (Not Detect) Coronavirus OC43 (PCR) (Not Detect) Coronavirus HKU1 (PCR) (Not Detect) Coronavirus 229E (PCR) (Not Detect) Coronavirus NL63 (PCR) (Not Detect) Hep Bs Antigen (Nonreactive) Hep Bs Antibody mIU/mL Herpes Simplex Source HSV I (Not Detect) HSV II (Not Detect) HIV Ag/Ab Combo Qual (Nonreactive) Human Metapneumovir PCR (Not Detect) Influenza A (H1) PCR (Not Detect) Influ A (H1N1/09) PCR (Not Detect) Influenza A (H3) PCR (Not Detect) Influenza A Untype (PCR) (Not Detect) Influenza Type B (PCR) (Not Detect) M.pneumoniae DNA (PCR) (Not Detect) Parainfluenza 1 (PCR) (Not Detect) Parainfluenza 2 (PCR) (Not Detect) Parainfluenza 3 (PCR) (Not Detect) Parainfluenza 4 (PCR) (Not Detect) RSV (PCR) (Not Detect) Entero/Rhino (PCR) (Not Detect) 07/01/18 06/30/18 06/30/18 Range/Units 09:03 09:34 09:34 Urine Color Yellow (Yellow) Urine Clarity Clear (Clear) Urine pH 7.0 (5.0-8.0) pH Units Ur Specific Brandon < 1.005 L (1.010-1.025) Urine Protein Trace (Neg-Trace) mg/dL Urine Glucose (UA) Normal (Normal) mg/dL Urine Ketones Negative (Negative) mg/dL Urine Blood Moderate H (Negative) Urine Nitrite Negative (Negative) Urine Bilirubin Negative (Negative) Urine Urobilinogen Normal (Normal) mg/dL Ur Leukocyte Esterase Moderate H (Negative) Urine Microscopic RBC 3-5 H (0-3) per hpf Urine Microscopic WBC 50-100 H (0-3) per hpf Ur Eosinophil Smear 0 (None Seen) % Ur Squamous Epith Cells None Seen (None-Few) per lpf Urine Bacteria Many H (None-Few) per hpf Hyaline Casts None Seen (None-Few) per lpf Urine Osmolality (300-1090) mOsm/kg Urine Creatinine 31 mg/dL Protein/Creatinin Ratio 1.68 H (0.00-0.20) mg/mg Urine Sodium 40.6 mEq/L Urine Potassium mEq/L Urine Chloride mEq/L Urine Total Protein 52 H (1-14) mg/dL Nasal Screen MRSA (PCR) (Negative) Chlamy pneumoniae PCR (Not Detect) Adenovirus (PCR) (Not Detect) B. pertussis DNA (PCR) (Not Detect) B.parapertussis DNA PCR (Not Detect) Coronavirus OC43 (PCR) (Not Detect) Coronavirus HKU1 (PCR) (Not Detect) Coronavirus 229E (PCR) (Not Detect) Coronavirus NL63 (PCR) (Not Detect) Hep Bs Antigen (Nonreactive) Hep Bs Antibody mIU/mL Herpes Simplex Source HSV I (Not Detect) HSV II (Not Detect) HIV Ag/Ab Combo Qual (Nonreactive) Human Metapneumovir PCR (Not Detect) Influenza A (H1) PCR (Not Detect) Influ A (H1N1/09) PCR (Not Detect) Influenza A (H3) PCR (Not Detect) Influenza A Untype (PCR) (Not Detect) Influenza Type B (PCR) (Not Detect) M.pneumoniae DNA (PCR) (Not Detect) Parainfluenza 1 (PCR) (Not Detect) Parainfluenza 2 (PCR) (Not Detect) Parainfluenza 3 (PCR) (Not Detect) Parainfluenza 4 (PCR) (Not Detect) RSV (PCR) (Not Detect) Entero/Rhino (PCR) (Not Detect) 06/30/18 06/24/18 06/24/18 Range/Units 09:33 15:10 11:15 Urine Color Yellow (Yellow) Urine Clarity Hazy (Clear) Urine pH 6.0 (5.0-8.0) pH Units Ur Specific Brandon 1.013 (1.010-1.025) Urine Protein 30 H (Neg-Trace) mg/dL Urine Glucose (UA) Normal (Normal) mg/dL Urine Ketones Negative (Negative) mg/dL Urine Blood Moderate H (Negative) Urine Nitrite Negative (Negative) Urine Bilirubin Small H (Negative) Urine Urobilinogen Normal (Normal) mg/dL Ur Leukocyte Esterase Moderate H (Negative) Urine Microscopic RBC 3-5 H (0-3) per hpf Urine Microscopic WBC 50-100 H (0-3) per hpf Ur Eosinophil Smear (None Seen) % Ur Squamous Epith Cells Many H (None-Few) per lpf Urine Bacteria None Seen (None-Few) per hpf Hyaline Casts None Seen (None-Few) per lpf Urine Osmolality 200 L (300-1090) mOsm/kg Urine Creatinine mg/dL Protein/Creatinin Ratio (0.00-0.20) mg/mg Urine Sodium mEq/L Urine Potassium mEq/L Urine Chloride mEq/L Urine Total Protein (1-14) mg/dL Nasal Screen MRSA (PCR) (Negative) Chlamy pneumoniae PCR (Not Detect) Adenovirus (PCR) (Not Detect) B. pertussis DNA (PCR) (Not Detect) B.parapertussis DNA PCR (Not Detect) Coronavirus OC43 (PCR) (Not Detect) Coronavirus HKU1 (PCR) (Not Detect) Coronavirus 229E (PCR) (Not Detect) Coronavirus NL63 (PCR) (Not Detect) Hep Bs Antigen (Nonreactive) Hep Bs Antibody mIU/mL Herpes Simplex Source [place] HSV I DETECTED A (Not Detect) HSV II Not Detected (Not Detect) HIV Ag/Ab Combo Qual (Nonreactive) Human Metapneumovir PCR (Not Detect) Influenza A (H1) PCR (Not Detect) Influ A (H1N1/09) PCR (Not Detect) Influenza A (H3) PCR (Not Detect) Influenza A Untype (PCR) (Not Detect) Influenza Type B (PCR) (Not Detect) M.pneumoniae DNA (PCR) (Not Detect) Parainfluenza 1 (PCR) (Not Detect) Parainfluenza 2 (PCR) (Not Detect) Parainfluenza 3 (PCR) (Not Detect) Parainfluenza 4 (PCR) (Not Detect) RSV (PCR) (Not Detect) Entero/Rhino (PCR) (Not Detect) 06/23/18 06/23/18 06/20/18 Range/Units 20:00 08:10 11:30 Urine Color (Yellow) Urine Clarity (Clear) Urine pH (5.0-8.0) pH Units Ur Specific Brandon (1.010-1.025) Urine Protein (Neg-Trace) mg/dL Urine Glucose (UA) (Normal) mg/dL Urine Ketones (Negative) mg/dL Urine Blood (Negative) Urine Nitrite (Negative) Urine Bilirubin (Negative) Urine Urobilinogen (Normal) mg/dL Ur Leukocyte Esterase (Negative) Urine Microscopic RBC (0-3) per hpf Urine Microscopic WBC (0-3) per hpf Ur Eosinophil Smear (None Seen) % Ur Squamous Epith Cells (None-Few) per lpf Urine Bacteria (None-Few) per hpf Hyaline Casts (None-Few) per lpf Urine Osmolality (300-1090) mOsm/kg Urine Creatinine mg/dL Protein/Creatinin Ratio (0.00-0.20) mg/mg Urine Sodium mEq/L Urine Potassium mEq/L Urine Chloride mEq/L Urine Total Protein (1-14) mg/dL Nasal Screen MRSA (PCR) (Negative) Chlamy pneumoniae PCR Not Detected (Not Detect) Adenovirus (PCR) Not Detected (Not Detect) B. pertussis DNA (PCR) Not Detected (Not Detect) B.parapertussis DNA PCR Not Detected (Not Detect) Coronavirus OC43 (PCR) Not Detected (Not Detect) Coronavirus HKU1 (PCR) Not Detected (Not Detect) Coronavirus 229E (PCR) Not Detected (Not Detect) Coronavirus NL63 (PCR) Not Detected (Not Detect) Hep Bs Antigen Nonreactive (Nonreactive) Hep Bs Antibody 0.00 mIU/mL Herpes Simplex Source HSV I (Not Detect) HSV II (Not Detect) HIV Ag/Ab Combo Qual Nonreactive (Nonreactive) Human Metapneumovir PCR Not Detected (Not Detect) Influenza A (H1) PCR Not Detected (Not Detect) Influ A (H1N1/09) PCR Not Detected (Not Detect) Influenza A (H3) PCR Not Detected (Not Detect) Influenza A Untype (PCR) Not Detected (Not Detect) Influenza Type B (PCR) Not Detected (Not Detect) M.pneumoniae DNA (PCR) Not Detected (Not Detect) Parainfluenza 1 (PCR) Not Detected (Not Detect) Parainfluenza 2 (PCR) Not Detected (Not Detect) Parainfluenza 3 (PCR) Not Detected (Not Detect) Parainfluenza 4 (PCR) Not Detected (Not Detect) RSV (PCR) Not Detected (Not Detect) Entero/Rhino (PCR) Not Detected (Not Detect) 06/18/18 06/18/18 06/17/18 Range/Units 10:28 10:28 18:15 Urine Color (Yellow) Urine Clarity (Clear) Urine pH (5.0-8.0) pH Units Ur Specific Brandon (1.010-1.025) Urine Protein (Neg-Trace) mg/dL Urine Glucose (UA) (Normal) mg/dL Urine Ketones (Negative) mg/dL Urine Blood (Negative) Urine Nitrite (Negative) Urine Bilirubin (Negative) Urine Urobilinogen (Normal) mg/dL Ur Leukocyte Esterase (Negative) Urine Microscopic RBC (0-3) per hpf Urine Microscopic WBC (0-3) per hpf Ur Eosinophil Smear (None Seen) % Ur Squamous Epith Cells (None-Few) per lpf Urine Bacteria (None-Few) per hpf Hyaline Casts (None-Few) per lpf Urine Osmolality 343 (300-1090) mOsm/kg Urine Creatinine mg/dL Protein/Creatinin Ratio (0.00-0.20) mg/mg Urine Sodium 128.8 mEq/L Urine Potassium 36.5 7.5 mEq/L Urine Chloride 135 mEq/L Urine Total Protein (1-14) mg/dL Nasal Screen MRSA (PCR) (Negative) Chlamy pneumoniae PCR (Not Detect) Adenovirus (PCR) (Not Detect) B. pertussis DNA (PCR) (Not Detect) B.parapertussis DNA PCR (Not Detect) Coronavirus OC43 (PCR) (Not Detect) Coronavirus HKU1 (PCR) (Not Detect) Coronavirus 229E (PCR) (Not Detect) Coronavirus NL63 (PCR) (Not Detect) Hep Bs Antigen (Nonreactive) Hep Bs Antibody mIU/mL Herpes Simplex Source HSV I (Not Detect) HSV II (Not Detect) HIV Ag/Ab Combo Qual (Nonreactive) Human Metapneumovir PCR (Not Detect) Influenza A (H1) PCR (Not Detect) Influ A (H1N1/09) PCR (Not Detect) Influenza A (H3) PCR (Not Detect) Influenza A Untype (PCR) (Not Detect) Influenza Type B (PCR) (Not Detect) M.pneumoniae DNA (PCR) (Not Detect) Parainfluenza 1 (PCR) (Not Detect) Parainfluenza 2 (PCR) (Not Detect) Parainfluenza 3 (PCR) (Not Detect) Parainfluenza 4 (PCR) (Not Detect) RSV (PCR) (Not Detect) Entero/Rhino (PCR) (Not Detect) 06/17/18 06/17/18 Range/Units 11:56 11:30 Urine Color (Yellow) Urine Clarity (Clear) Urine pH (5.0-8.0) pH Units Ur Specific [place] (1.010-1.025) Urine Protein (Neg-Trace) mg/dL Urine Glucose (UA) (Normal) mg/dL Urine Ketones (Negative) mg/dL Urine Blood (Negative) Urine Nitrite (Negative) Urine Bilirubin (Negative) Urine Urobilinogen (Normal) mg/dL Ur Leukocyte Esterase (Negative) Urine Microscopic RBC (0-3) per hpf Urine Microscopic WBC (0-3) per hpf Ur Eosinophil Smear (None Seen) % Ur Squamous Epith Cells (None-Few) per lpf Urine Bacteria (None-Few) per hpf Hyaline Casts (None-Few) per lpf Urine Osmolality (300-1090) mOsm/kg Urine Creatinine mg/dL Protein/Creatinin Ratio (0.00-0.20) mg/mg Urine Sodium mEq/L Urine Potassium mEq/L Urine Chloride mEq/L Urine Total Protein (1-14) mg/dL Nasal Screen MRSA (PCR) Negative (Negative) Chlamy pneumoniae PCR Not Detected (Not Detect) Adenovirus (PCR) Not Detected (Not Detect) B. pertussis DNA (PCR) Not Detected (Not Detect) B.parapertussis DNA PCR Not Detected (Not Detect) Coronavirus OC43 (PCR) Not Detected (Not Detect) Coronavirus HKU1 (PCR) Not Detected (Not Detect) Coronavirus 229E (PCR) Not Detected (Not Detect) Coronavirus NL63 (PCR) Not Detected (Not Detect) Hep Bs Antigen (Nonreactive) Hep Bs Antibody mIU/mL Herpes Simplex Source HSV I (Not Detect) HSV II (Not Detect) HIV Ag/Ab Combo Qual (Nonreactive) Human Metapneumovir PCR Not Detected (Not Detect) Influenza A (H1) PCR Not Detected (Not Detect) Influ A (H1N1/09) PCR Not Detected (Not Detect) Influenza A (H3) PCR Not Detected (Not Detect) Influenza A Untype (PCR) Not Detected (Not Detect) Influenza Type B (PCR) Not Detected (Not Detect) M.pneumoniae DNA (PCR) Not Detected (Not Detect) Parainfluenza 1 (PCR) Not Detected (Not Detect) Parainfluenza 2 (PCR) Not Detected (Not Detect) Parainfluenza 3 (PCR) Not Detected (Not Detect) Parainfluenza 4 (PCR) Not Detected (Not Detect) RSV (PCR) Not Detected (Not Detect) Entero/Rhino (PCR) Not Detected (Not Detect) Exam - Constitutional Vitals: Temp Pulse Resp BP Pulse Ox 99.6 F 92 19 119/71 92 07/10/18 07:00 07/10/18 10:00 07/10/18 10:00 07/10/18 10:00 07/10/18 10:00 General appearance: cooperative, no acute distress, obese - Head Head exam: Present: atraumatic, normal inspection, normocephalic - Eye Eye exam: Present: EOMI, normal appearance, PERRL Pupils: Present: normal accommodation - ENT ENT exam: Present: mucous membranes moist - Neck Neck exam: Present: normal inspection Additional comments: Temporary HD line noted to the right neck with transparent dressing C/D/I. - Respiratory Respiratory exam: Present: rhonchi (throughout). Absent: CTAB, rales, respiratory distress, wheezes - Cardiovascular Cardiovascular exam: Present: RRR, +S1, +S2 - GI/Abdominal GI/Abdominal exam: Present: distended, normal bowel sounds, soft. Absent: tenderness Additional comments: Jacobo catheter noted to be draining clear yellow urine. - Extremities Exam Extremities exam: Present: normal inspection. Absent: joint swelling, pedal edema, tenderness - Neurological Exam Neurological exam: Present: altered (Sedated, but opens eyes to verbal stimuli and able to follow some commands. TORRES x 4 on command.) - Skin Skin exam: Present: dry, intact, normal color, warm - VTE Documentation of Mechanical Device: Intermittent pneumatic compression device Consult Discharge Plan - Plan Referrals: Sheryl Stahl, [employer] RIDER [Primary Care Provider] - - Attending Attestation I examined this patient and my medical decision-making was reviewed with the Resident Physician. I agree with the documented findings, disposition and treatment plan as described except to the extent set forth below.
--- NOTE | 2018-07-10 14:05 | Nephrology Progress Note ---
Date of Encounter: 07/10/18 Time of Encounter: 09:00 - Assessment and Plan (1) LUCILA (acute kidney injury) Current Visit: Yes Status: Acute Polyuric LUCILA, improved dramatically with approximately 1 L out today thus far at 2 PM Serum creatinine continues to decrease, 2.04 today down from 2.1 Patient does appear dry at this time, has wrinkles on his skin and dry mucous membranes He continues to have hypernatremia consistent with loss of free water, however this has decreased substantially from prior Plan: -No indication for acute hemodialysis at this time -Serum creatinine likely in response to persistent hypovolemia however this is improving dramatically with DDAVP -Recommend harsh decrease in free water pushes, recommend stopping D5W IVF at this time (2) Hypernatremia Current Visit: Yes Status: Acute Suspected diabetes insipidus given duration of polyuric phase Yesterday he did receive 2 g DDAVP in the morning and then another 2 g DDAVP in the afternoon as well as amiloride In response to this, the patient did have increased concentration and urine osmolality and also decrease in serum sodium He also has had decrease in urine output today As response to decrease the amount of free water he is receiving to translate him the drop in his serum sodium This points to a 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 Head CT so far has been negative Management per critical care team, recommend MRI if indicated Will continue DDAVP as needed (3) Acute respiratory failure with hypoxemia Current Visit: Yes Status: Acute Patient required intubation due to worsening respiratory status Management per critical care team (4) Anemia Current Visit: Yes Status: Acute Severe iron deficiency anemia Transfusion parameters per primary team Qualifiers: Anemia type: iron deficiency Iron deficiency anemia type: unspecified iron deficiency Qualified Code(s): D50.9 - Iron deficiency anemia, unspecified Subjective Principal diagnosis: septic shock Interval history: The patient remains intubated at this time is been significantly more sedated. His urine output has dropped substantially since receiving DDAVP. Additionally , his serum sodium has dropped substantially. Objective - Vital Signs Vital signs: Vital Signs Temp Pulse Resp BP Pulse Ox 07/10/18 13:00 92 19 106/62 92 07/10/18 12:00 87 20 105/60 90 07/10/18 11:50 100.9 F H 07/10/18 11:00 87 19 109/64 91 07/10/18 10:00 92 19 119/71 92 07/10/18 09:50 20 101/64 92 07/10/18 09:00 96 19 117/68 92 07/10/18 08:00 129 36 154/114 91 07/10/18 07:18 19 88/52 98 07/10/18 07:00 99.6 F 90 18 88/52 95 07/10/18 06:00 67 17 89/49 96 07/10/18 05:28 16 124/73 99 07/10/18 05:00 86 19 124/73 96 07/10/18 04:26 99.5 F 07/10/18 04:07 96 17 119/73 94 07/10/18 04:00 101 07/10/18 03:16 20 117/70 96 07/10/18 03:00 93 19 117/70 96 07/10/18 02:00 70 16 85/52 97 07/10/18 01:30 22 82/50 99 07/10/18 01:05 74 17 86/50 97 07/10/18 00:05 81 16 88/57 97 07/09/18 23:56 19 90/53 97 07/09/18 23:33 100.4 F H 07/09/18 23:07 73 17 87/50 97 07/09/18 22:00 73 18 92/55 96 07/09/18 21:08 100.5 F H 07/09/18 21:00 81 16 114/66 96 07/09/18 20:17 19 118/72 99 07/09/18 20:00 88 19 118/72 95 07/09/18 19:00 110 22 119/70 94 07/09/18 18:00 121 29 112/64 95 07/09/18 17:39 17 93/58 98 07/09/18 17:00 117 29 100/65 95 07/09/18 16:51 99.7 F H 84 21 129/66 97 07/09/18 16:00 99.7 F H 84 18 129/66 97 07/09/18 15:53 82 21 147/79 93 07/09/18 15:05 20 142/82 94 07/09/18 15:00 92 19 142/82 94 Intake and Output 09/12/18 09/13/18 09/13/18 23:59 07:59 15:59 Intake Total 3964.1 / 3964.1 2389.1 / 2389.1 750 / 750 Output Total 2150 / 2150 300 / 300 775 / 775 Balance 1814.1 / 1814.1 2089.1 / 2089.1 -25 / -25 Intake: IV Fluids 1519.1 / 1519.1 1351.1 / 1351.1 250 / 250 Dextrose 5% 1,000 ML @ 125 mls/ 1000 / 1000 1000 / 1000 250 / 250 hr IVC .Q8H [facility] Rx#:[id number] PRECEDEX Premix 400 mcg In 100 200 / 200 200 / 200 ml @ 0.2 MCG/KG/HR 5.45 mls/hr IVC .[id number] [facility] Rx#:[id number] FentaNYL (PF) 2,500 MCG In 50 / 50 Empty Bag 1 Each @ 50 MCG/HR 1 mls/hr IVC CONT [facility] Rx#: [id number] HumuLIN R 100 UNIT In 0.9 % 45.1 / 45.1 31.1 / 31.1 Sodium Chloride 100 ML @ Per Protocol IVC CONT [facility] Rx#: [id number] Diprivan 1,000 mg In 100 ml @ 5 100 / 100 100 / 100 MCG/KG/MIN 3.345 mls/hr IVC . Q24H [facility] Rx#:[id number] Maxipime 2,000 MG In Water for 20 / 20 20 / 20 inj. (sterile) 20 ML @ 300 mls/ hr IVP Q12HR [facility] Rx#:[id number] Magnesium Sulfate 2 GM In 0.9 % 104 / 104 Sodium Chloride 100 ML @ 52 mls/hr IVPB Q6H PRN Rx#: [id number] Tube Feeding 945 / 945 538 / 538 Free Water Intake Amount 1500 / 1500 500 / 500 500 / 500 Output: Rectal Tube 0 / 0 Catheter 2150 / 2150 300 / 300 775 / 775 Other: Weight 112.1 kg Blood Glucose* 149 134 134 - General Appearance Exam: Gen: Vitals noted. No acute distress. Sedated on Mechanical ventilation. HEENT: Normocephalic, atraumatic. Dry mucous membranes. Neck: Supple. No adenopathy. Right internal jugular temporary hemodialysis catheter in place with no erythema surrounding Cardiac: RRR, no murmur, +S1/S2 Pulmonary: Clear to auscultation bilaterally, diminished in the right lung base Abdomen: soft, nontender, no guarding Extremities: 2+ bilateral lower extremity edema, nontender calf, no cyanosis or clubbing Neuro: Patient has been extubated and is largely off sedation. Follows commands. - Lab 07/10/18 04:00 07/10/18 12:30 Most recent lab results ABG pH 7.31 pH Units (7.32-7.45) L 07/10/18 04:58 ABG pCO2 55 mmHg (35-45) H 07/10/18 04:58 ABG pO2 73 mmHg (85-104) L 07/10/18 04:58 ABG HCO3 28 mEq/L (21-27) H 07/10/18 04:58 ABG O2 Saturation 92 % (95-98) L 07/10/18 04:58 Calcium 8.5 mg/dL (8.6-10.3) L 07/10/18 04:00 Phosphorus 4.8 mg/dL (2.7-4.5) H 07/10/18 04:00 Magnesium 1.7 mg/dL (1.6-2.6) 07/10/18 04:00 Urine Creatinine 31 mg/dL 06/30/18 09:34 Urine Sodium 57.9 mEq/L 07/10/18 08:30 Urine Total Protein 52 mg/dL (1-14) H 06/30/18 09:34 - VTE Documentation of Mechanical Device: Intermittent pneumatic compression device Consult Discharge Plan - Plan Referrals: Sheryl Stahl CNP [Primary Care Provider] -
[2018-07-10] MEDS: metroNIDAZOLE 500 MG TABLET PO SCH ×2 (17:46→22:22)
[2018-07-11] MEDS: Artificial Tears SOLN 15 ML BOTTLE BOTH EYES SCH ×6 (00:25→19:03)
[2018-07-11] MEDS: Dexmedetomidine HCl 400 MCG/100 ML MLS IVC SCH ×6 (03:29→22:17)
[2018-07-11] MEDS: Acetaminophen IV 1,000 MG/100 ML INFUS..BTL IVPB PRN (03:52)
[2018-07-11] MEDS: Insulin Human Regular 100 UNIT in 0.9 % Sodium Chloride 100 ML IVC SCH (03:53)
[2018-07-11 04:07] LABS: Basophils % 0.3 %; Eosinophils # 0.5 K/mcL (0.0-0.6); Eosinophils % 6.7 %; Hemoglobin 7.1 g/dL (12.9-16.9); Immature Granulocytes % 0.5 % (0-4); Lymphocytes # 1.5 K/mcL (0.6-4.6); Lymphocytes % 20.2 %; Mean Corpuscular HGB Conc 30.9 g/dL (31.6-35.5); Mean Corpuscular Hemoglobin 30.2 pg (28.0-33.3); Mean Corpuscular Volume 97.9 fL (83.0-100.0); Mean Platelet Volume 11.5 fL (9.4-12.4); Monocytes # 0.6 K/mcL (0.0-1.3); Monocytes % 7.4 %; Neutrophils # 4.9 K/mcL (1.6-8.9); Platelet Count 155 K/mcL (140-400); Red Blood Count 2.35 M/mcL (4.19-5.50); Red Cell Distribution Width 15.4 % (11.5-14.5); Segmented Neutrophils % 64.9 %
[2018-07-11 04:17] LABS: Magnesium 1.9 mg/dL (1.6-2.6); Phosphorous 3.1 mg/dL (2.7-4.5); Potassium 3.9 mEq/L (3.5-5.1)
[2018-07-11] MEDS: Cefepime HCl 2,000 MG in Water for inj. (sterile) 20 ML 20 ML IVP SCH (05:11)
[2018-07-11 05:12] LABS: ABG Base Excess 4 mEq/L (-2 to 3); ABG HCO3 29 mEq/L (21-27); ABG Oxygen Saturation 91 % (95-98); ABG PCO2 46 mmHg (35-45); ABG PH 7.41 pH Units (7.32-7.45); ABG PO2 62 mmHg (85-104); ABG TCO2 30 mEq/L (20-26); Blood Gas Modality PRVC; Blood Gas PEEP 5 cm H2O; Blood Gas Respiration Rate 16; Blood Gas VT 460 cc
[2018-07-11] MEDS: *HR* Heparin 5,000 UNIT/ML VIAL SQ SCH ×2 (05:12→17:06)
[2018-07-11 05:39] LABS: Bilirubin,Urine Negative (Negative); Blood,Urine Large (Negative); Color,Urine Yellow (Yellow); Glucose,Urine (UA) Normal (Normal); Ketones,Urine Negative (Negative); Leukocyte Esterase,Urine Small (Negative); Nitrite,Urine Negative (Negative); PH,Urine 5.5 pH Units (5.0-8.0); Protein,Urine 30 mg/dL (Neg-Trace); Specific Gravity,Urine 1.013 (1.010-1.025); Urobilinogen,Urine Normal (Normal)
[2018-07-11 05:42] LABS: Hyaline Casts,Urine None Seen per lpf (None-Few); RBC,Urine 0-3 per hpf (0-3); Squamous Epithelial Cell,Urine Many per lpf (None-Few)
[2018-07-11 05:54] LABS: Clarity,Urine Hazy (Clear)
[2018-07-11 06:16] LABS: Bacteria,Urine Few per hpf (None-Few)
--- NOTE | 2018-07-11 08:44 | Nephrology Progress Note ---
Date of Encounter: 07/11/18 Time of Encounter: 08:45 - Assessment and Plan (1) LUCILA (acute kidney injury) Current Visit: Yes Status: Acute Polyuric LUCILA, urine output did drop with DDAVP 5 for increased again without Serum creatinine continues to decrease, 1.84 today which is down from previous Patient does appear dry at this time, has wrinkles on his skin and dry mucous membranes He continues to have hypernatremia consistent with loss of free water, however this has decreased substantially from prior Plan: -No indication for acute hemodialysis at this time -Serum creatinine likely in response to persistent hypovolemia however this is improving dramatically with DDAVP and free water -Recommend continued free water pushes, recommend against IV fluids (2) Diabetes insipidus, neurohypophyseal Current Visit: Yes Status: Suspected Suspected diabetes insipidus given duration of polyuric phase Patient, a total of 4 g DDAVP and had harsh decrease in serum sodium as well as decreased and urine excretion He also saw a large increase in urine concentration with addition of DDAVP This is consistent with a neurologic diabetes insipidus He did undergo a head CT which did not demonstrate any obvious source We will start a maintenance dose of DDAVP today at 2 g Continue to monitor serum sodium and strict I/Os (3) Acute respiratory failure with hypoxemia Current Visit: Yes Status: Acute Patient required intubation due to worsening respiratory status Management per critical care team (4) Anemia Current Visit: Yes Status: Acute Severe iron deficiency anemia Transfusion parameters per primary team Qualifiers: Anemia type: iron deficiency Iron deficiency anemia type: unspecified iron deficiency Qualified Code(s): D50.9 - Iron deficiency anemia, unspecified Subjective Principal diagnosis: septic shock Interval history: The patient remains intubated at this time is been significantly more sedated. He did not receive DDAVP yesterday and his urine output did increase can, as well as his serum sodium. Clinical status has not significantly changed. Objective - Vital Signs Vital signs: Vital Signs Temp Pulse Resp BP Pulse Ox 07/11/18 08:37 19 110/71 91 07/11/18 08:11 100.3 F H 07/11/18 08:00 86 19 110/71 92 07/11/18 07:00 93 19 106/67 91 07/11/18 06:00 82 18 99/63 92 07/11/18 05:00 100.9 F H 85 25 117/64 95 07/11/18 04:00 84 20 105/61 92 07/11/18 03:53 102.7 F H 07/11/18 03:51 26 118/64 93 07/11/18 03:00 105 25 143/86 95 07/11/18 02:00 100 23 137/81 94 07/11/18 01:11 27 111/68 94 07/11/18 01:00 90 19 111/68 93 07/11/18 00:21 98 18 115/70 92 07/10/18 23:59 100.9 F H 07/10/18 23:40 17 117/71 95 07/10/18 23:00 105 22 120/73 91 07/10/18 22:37 17 114/62 95 07/10/18 22:00 92 20 122/71 89 07/10/18 21:00 93 18 120/68 91 07/10/18 20:20 104 07/10/18 20:03 22 157/86 93 07/10/18 20:00 105 22 157/86 88 07/10/18 19:00 98 18 114/68 89 07/10/18 18:00 108 24 121/73 89 07/10/18 17:04 25 90 07/10/18 17:00 103 19 126/68 91 07/10/18 16:00 100 25 111/68 90 07/10/18 15:57 100.6 F H 07/10/18 15:37 20 128/69 93 07/10/18 15:00 96 18 128/69 91 07/10/18 14:00 98 21 105/61 91 07/10/18 13:22 19 92 07/10/18 13:00 92 19 106/62 92 07/10/18 12:00 87 20 105/60 90 07/10/18 11:50 100.9 F H 07/10/18 11:00 87 18 109/64 92 07/10/18 10:00 92 19 119/71 92 07/10/18 09:50 20 101/64 92 07/10/18 09:00 96 19 117/68 92 Intake and Output 07/10/18 07/11/18 07/11/18 23:59 07:59 15:59 Intake Total 717.6 / 717.6 707 / 707 0 / 0 Output Total 925 / 925 1200 / 1200 750 / 750 Balance -207.4 / -207.4 -493 / -493 -750 / -750 Intake: IV Fluids 325.6 / 325.6 373 / 373 PRECEDEX Premix 400 mcg In 100 100 / 100 100 / 100 ml @ 0.2 MCG/KG/HR 5.45 mls/hr IVC .[id number] [facility] Rx#:[id number] FentaNYL (PF) 2,500 MCG In 50 / 50 Empty Bag 1 Each @ 50 MCG/HR 1 mls/hr IVC CONT [facility] Rx#: [id number] HumuLIN R 100 UNIT In 0.9 % 55.6 / 55.6 38 / 38 Sodium Chloride 100 ML @ Per Protocol IVC CONT [facility] Rx#: [id number] Diprivan 1,000 mg In 100 ml @ 5 100 / 100 115 / 115 MCG/KG/MIN 3.345 mls/hr IVC . Q24H [facility] Rx#:[id number] Maxipime 2,000 MG In Water for 20 / 20 20 / 20 inj. (sterile) 20 ML @ 300 mls/ hr IVP Q12HR [facility] Rx#:[id number] Ofirmev 1,000 mg/100 ml 1,000 100 / 100 mg In 100 ml @ 400 mls/hr IVPB Q6HR PRN Rx#:[id number] Tube Feeding 392 / 392 334 / 334 Free Water Intake Amount 0 / 0 0 / 0 0 / 0 Output: Rectal Tube 0 / 0 Catheter 925 / 925 1200 / 1200 750 / 750 Other: Weight 112.7 kg Blood Glucose* 182 160 137 - General Appearance Exam: Gen: Vitals noted. No acute distress. Sedated on Mechanical ventilation. HEENT: Normocephalic, atraumatic. Dry mucous membranes. Neck: Supple. No adenopathy. Right internal jugular temporary hemodialysis catheter in place with no erythema surrounding Cardiac: RRR, no murmur, +S1/S2 Pulmonary: Clear to auscultation bilaterally, diminished in the right lung base Abdomen: soft, nontender, no guarding Extremities: 2+ bilateral lower extremity edema, nontender calf, no cyanosis or clubbing Neuro: Patient has been extubated and is largely off sedation. Follows commands. - Lab 07/11/18 03:40 07/11/18 03:40 Most recent lab results ABG pH 7.41 pH Units (7.32-7.45) 07/11/18 05:09 ABG pCO2 46 mmHg (35-45) H 07/11/18 05:09 ABG pO2 62 mmHg (85-104) L 07/11/18 05:09 ABG HCO3 29 mEq/L (21-27) H 07/11/18 05:09 ABG O2 Saturation 91 % (95-98) L 07/11/18 05:09 Calcium 9.0 mg/dL (8.6-10.3) 07/11/18 03:40 Phosphorus 3.1 mg/dL (2.7-4.5) 07/11/18 03:40 Magnesium 1.9 mg/dL (1.6-2.6) 07/11/18 03:40 Urine Creatinine 31 mg/dL 06/30/18 09:34 Urine Sodium 57.9 mEq/L 07/10/18 08:30 Urine Total Protein 52 mg/dL (1-14) H 06/30/18 09:34 - VTE Documentation of Mechanical Device: Intermittent pneumatic compression device Consult Discharge Plan - Plan Referrals: Sheryl Stahl, [employer] A[employer] [Primary Care Provider] -
[2018-07-11] MEDS: Chlorhexidine Rinse 15 ML MOUTHWASH MM SCH ×2 (08:54→19:25)
[2018-07-11] MEDS: metroNIDAZOLE 500 MG TABLET PO SCH (08:54)
[2018-07-11] MEDS: Nystatin SUSP 5 ML UD.LIQ PO SCH ×4 (08:54→19:25)
[2018-07-11] MEDS: Pantoprazole 40 MG VIAL IVP SCH (08:55)
[2018-07-11] MEDS: Potassium Chloride Elixir 20 MEQ/15 ML UDC PO SCH (08:55)
[2018-07-11] MEDS ORDERED: aMILoride 5 MG TABLET PO SCH (09:00)
[2018-07-11] MEDS: D5% in Water 1,000 ML IVC SCH ×3 (09:23→19:11)
[2018-07-11] MEDS: Norepinephrine 4 MG in D5% in Water 250 ML IVC SCH (09:25)
--- NOTE | 2018-07-11 09:57 | Infectious Disease Progress No ---
Date of Encounter: 07/11/18 Time of Encounter: 09:54 - Assessment and Plan (1) Septic shock Current Visit: Yes Status: Acute The patient had 4 SIRS criteria plus lactic acidosis, acute kidney injury, acute encephalopathy, and hypotension requiring vasopressors. Likely secondary to candidemia, UTI, possible HSV encephalitis, and PNA. Improved. Leukocytosis resolved. Low-grade fever yesterday, afebrile overnight. Tachycardia has resolved. Remains off vasopressors. Blood cultures obtained 06/17/18 are +2 out of 2 sets for Marisela albicans, nation- sensitive. Repeat blood cultures obtained 06/19/18 are negative 2 sets. Additional blood cultures drawn 07/04/18 are negative x 2 sets. Possible aspiration event over the weekend. CT head showed partial opacification of the left sphenoid sinus and mastoid air cells. Unable to assess if the patient is symptomatic since he is sedated. Discontinue Cefepime and Flagyl. Start Vancomycin IV. Pharmacy to dose. Goal trough ~15. Start Zosyn 3.375 grams IV Q8H. Duration of treatment depends on the clinical picture. Monitor renal function and dose-adjust antibiotics. (2) Candidemia Current Visit: Yes Status: Resolved Causative organism: Marisela albicans. Source: unclear. CT of the abdomen and pelvis is negative. He has no indwelling lines or catheters. His urine culture is positive for C. albicans. Blood cultures obtained 06/17/18 are +2 out of 2 sets for Marisela albicans, nation- sensitive. Repeat blood cultures obtained 06/19/18 are negative 2 sets. Additional blood cultures 07/04/18 are negative x 2 sets. Repeat LFTs normal. Completed 14 days of IV fluconazole. Resolved. Ophthalmology consult noted and appreciated. (3) Pneumonia Current Visit: Yes Status: Suspected Location: Bilateral lower lobes. Causative organism: Unclear. Consider aspiration since the patient had altered mental status and was recently intubated. CT of the chest showed bilateral lower lobe infiltrates versus atelectasis. The patient does have a large amount of secretions coming from his ET tube. Discussed with the pulmonary team. Concern for pneumonia from their standpoint. MRSA screen completed 06/17/18 is negative. Initial sputum culture negative. Repeat Sputum culture 07/04/18 positive for A. baummannii. S. pneumo and Legionella UAT 06/20/18.--> negative. Repeat CXR 06/23/18 showed mild pulmonary vascular congestion and atelectasis and mild pleural effusion at the right lung base, increased. CT scan of the chest 06/23/18 negative for PNA. CXR 07/01/18 showed stable RLL disease and improved LLL disease. CXR 07/07/18 showed mild pulmonary vascular congestion and mild right pleural effusion. CXR this morning showed right basilar opacity and pulmonary edema. Vanc and Zosyn discontinued 06/25/18 after 9 days. Discontinue Cefepime and Flagyl. Start Vancomycin and Zosyn as above. Duration of treatment depends on the clinical picture. Monitor renal function and for drug toxicity and dose-adjust antibiotics. Qualifiers: Pneumonia type: due to unspecified organism Laterality: bilateral Lung location: lower lobe of lung Qualified Code(s): J18.1 - Lobar pneumonia, unspecified organism (4) UTI (urinary tract infection) Current Visit: Yes Status: Acute Causative organism 06/18/18: C. albicans. Completed 14+ days of fluconazole. Repeat urine culture 07/01/18 grew E. coli, resistant to ampicillin and Unasyn. Likely secondary to jacobo catheter. Completed 7 day course of Cefepime. Qualifiers: Urinary tract infection type: site unspecified Hematuria presence: without hematuria Qualified Code(s): N39.0 - Urinary tract infection, site not specified (5) Encephalopathy Current Visit: Yes Status: Acute Etiology unclear, but likely related to sepsis. Per the patient's , the patient did have any complaints of neck pain, stiffness, or headache. Unable to assess mental status since the patient remains intubated and sedated. CT head negative for intracranial abnormality. 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 LP attempted by the pulm/CC team and IR was unsuccessful. Neurology consulted. Appreciate recommendations. Signed off. Acyclovir stopped by the pulmonary team, re-started 07/04/18. Completed 14 days of IV acyclovir. Patient awakens when sedation is off and follows some commands. Failed CPAP this morning. (6) LUCILA (acute kidney injury) Current Visit: Yes Status: Acute Likely multifactorial: sepsis + hypotension + other. CRRT started 06/19/18 and stopped 06/26/18. Creatinine improved. Urine output remains adequate. Nephrology consulted and following. Continue to trend. Dose-adjust medications. (7) Lactic acidosis Current Visit: Yes Status: Resolved Likely secondary to sepsis. Resolved. (8) Thrombocytopenia Current Visit: Yes Status: Resolved Likely secondary to sepsis. LFTs abnormal on admission. Repeat LFTs normal. Resolved Continue to trend. No acute bleeding noted on exam. Further workup and management per the primary team. (9) Acute respiratory failure with hypoxemia Current Visit: Yes Status: Acute Likely secondary to PNA vs. pulmonary edema. Extubated 07/01/18. Re-intubated 07/04/18. Management per the pulmonary team. (10) Hypokalemia Current Visit: Yes Status: Resolved Replacement per the primary team. (11) Elevated troponin Current Visit: Yes Status: Acute Management per the primary team. (12) Type 2 diabetes mellitus Current Visit: Yes Status: Chronic Recommend aggressive glucose monitoring and control. Management per the primary team. Qualifiers: Diabetes mellitus residential insulin use: with residential use Diabetes mellitus complication status: with unspecified complications Qualified Code(s) : E11.8 - Type 2 diabetes mellitus with unspecified complications; Z79.4 - USP (current) use of insulin (13) COPD (chronic obstructive pulmonary disease) Current Visit: Yes Status: Chronic Qualifiers: COPD type: emphysema Emphysema type: unspecified Qualified Code(s): J43.9 - Emphysema, unspecified (14) Oral lesion Current Visit: Yes Status: Resolved Noted to the tongue. PCR positive for HSV 1. New lesion noted to the right nasolabial fold: HSV vs. other. Completed 14 days of acyclovir. Resolved. (15) Sinusitis Current Visit: Yes Status: Resolved CT of the head 06/23/18 showed sinusitis of the bilateral sphenoid and ethmoid sinuses. Causative organism unclear. Treated with 9 days of Vanc and Zosyn. Repeat CT head 07/10/18 showed opacification of the left sphenoid sinus. Re-start Vanc and Zosyn as above. Recommend ENT to evaluate. Qualifiers: Sinusitis location: unspecified location Chronicity: acute Recurrence: non-recurrent Qualified Code(s): J01.90 - Acute sinusitis, unspecified (16) Mastoiditis Current Visit: Yes Status: Suspected CT head showed opacitification of the left mastoid air cells concerning for mastoiditis. Recommend ENT to evaluate. Qualifiers: Laterality: left Qualified Code(s): H70.92 - Unspecified mastoiditis, left ear - Subjective Interval history: Patient seen and examined with nursing at bedside. Febrile overnight with Tmax 102.7. Tachycardia resolved. Failed CPAP this morning. WBC has normalized. Stools are loose, but do not look like C. diff. Minimal output from rectal tube per nursing. Patient sedated and does not participate in exam. Infect Dis PN-Objective Data - Labs CBC & Chem 7: 07/11/18 03:40 07/11/18 03:40 Labs: Laboratory Results - last 24 hr 07/10/18 07/10/18 07/10/18 04:12 05:01 05:58 WBC RBC Hgb Hct MCV MCH MCHC RDW Plt Count MPV Immature Gran % Seg Neutrophils % Lymphocytes % Monocytes % Eosinophils % Basophils % Neutrophils # Lymphocytes # Monocytes # Eosinophils # Basophils # Sample Site ABG pH ABG pCO2 ABG pO2 ABG HCO3 ABG Total CO2 ABG O2 Saturation ABG Base Excess Michael Test Respiration Rate O2 Delivery Device Blood Gas Modality Inspired O2 Tidal Volume PEEP Sodium Potassium Chloride Carbon Dioxide BUN Creatinine Est GFR ( Amer) Est GFR (Non-Af Amer) BUN/Creatinine Ratio Glucose POC Glucose 183 H 196 H 167 H Serum Osmolality Calculated Osmolality Lactic Acid Calcium Phosphorus Magnesium Urine Color Urine Clarity Urine pH Ur Specific [place] Urine Protein Urine Glucose (UA) Urine Ketones Urine Blood Urine Nitrite Urine Bilirubin Urine Urobilinogen Ur Leukocyte Esterase Urine Microscopic RBC Urine Microscopic WBC Ur Squamous Epith Cells Urine Bacteria Hyaline Casts Ur Culture Indicated? Urine Osmolality Urine Sodium 07/10/18 07/10/18 07/10/18 06:57 07:58 08:30 WBC RBC Hgb Hct MCV MCH MCHC RDW Plt Count MPV Immature Gran % Seg Neutrophils % Lymphocytes % Monocytes % Eosinophils % Basophils % Neutrophils # Lymphocytes # Monocytes # Eosinophils # Basophils # Sample Site ABG pH ABG pCO2 ABG pO2 ABG HCO3 ABG Total CO2 ABG O2 Saturation ABG Base Excess Michael Test Respiration Rate O2 Delivery Device Blood Gas Modality Inspired O2 Tidal Volume PEEP Sodium Potassium Chloride Carbon Dioxide BUN Creatinine Est GFR ( Amer) Est GFR (Non-Af Amer) BUN/Creatinine Ratio Glucose POC Glucose 134 H 135 H Serum Osmolality Calculated Osmolality Lactic Acid Calcium Phosphorus Magnesium Urine Color Urine Clarity Urine pH Ur Specific [place] Urine Protein Urine Glucose (UA) Urine Ketones Urine Blood Urine Nitrite Urine Bilirubin Urine Urobilinogen Ur Leukocyte Esterase Urine Microscopic RBC Urine Microscopic WBC Ur Squamous Epith Cells Urine Bacteria Hyaline Casts Ur Culture Indicated? Urine Osmolality Urine Sodium 57.9 07/10/18 07/10/18 07/10/18 08:30 08:30 08:54 WBC RBC Hgb Hct MCV MCH MCHC RDW Plt Count MPV Immature Gran % Seg Neutrophils % Lymphocytes % Monocytes % Eosinophils % Basophils % Neutrophils # Lymphocytes # Monocytes # Eosinophils # Basophils # Sample Site ABG pH ABG pCO2 ABG pO2 ABG HCO3 ABG Total CO2 ABG O2 Saturation ABG Base Excess Michael Test Respiration Rate O2 Delivery Device Blood Gas Modality Inspired O2 Tidal Volume PEEP Sodium Potassium Chloride Carbon Dioxide BUN Creatinine Est GFR ( Amer) Est GFR (Non-Af Amer) BUN/Creatinine Ratio Glucose POC Glucose 120 H Serum Osmolality 310 H Calculated Osmolality Lactic Acid Calcium Phosphorus Magnesium Urine Color Urine Clarity Urine pH Ur Specific [place] Urine Protein Urine Glucose (UA) Urine Ketones Urine Blood Urine Nitrite Urine Bilirubin Urine Urobilinogen Ur Leukocyte Esterase Urine Microscopic RBC Urine Microscopic WBC Ur Squamous Epith Cells Urine Bacteria Hyaline Casts Ur Culture Indicated? Urine Osmolality 287 L Urine Sodium 07/10/18 07/10/18 07/10/18 09:56 11:00 11:29 WBC RBC Hgb Hct MCV MCH MCHC RDW Plt Count MPV Immature Gran % Seg Neutrophils % Lymphocytes % Monocytes % Eosinophils % Basophils % Neutrophils # Lymphocytes # Monocytes # Eosinophils # Basophils # Sample Site ABG pH ABG pCO2 ABG pO2 ABG HCO3 ABG Total CO2 ABG O2 Saturation ABG Base Excess Michael Test Respiration Rate O2 Delivery Device Blood Gas Modality Inspired O2 Tidal Volume PEEP Sodium Potassium Chloride Carbon Dioxide BUN Creatinine Est GFR ( Amer) Est GFR (Non-Af Amer) BUN/Creatinine Ratio Glucose POC Glucose 127 H 140 H 146 H Serum Osmolality Calculated Osmolality Lactic Acid Calcium Phosphorus Magnesium Urine Color Urine Clarity Urine pH Ur Specific [place] Urine Protein Urine Glucose (UA) Urine Ketones Urine Blood Urine Nitrite Urine Bilirubin Urine Urobilinogen Ur Leukocyte Esterase Urine Microscopic RBC Urine Microscopic WBC Ur Squamous Epith Cells Urine Bacteria Hyaline Casts Ur Culture Indicated? Urine Osmolality Urine Sodium 07/10/18 07/10/18 07/10/18 12:30 12:43 13:52 WBC RBC Hgb Hct MCV MCH MCHC RDW Plt Count MPV Immature Gran % Seg Neutrophils % Lymphocytes % Monocytes % Eosinophils % Basophils % Neutrophils # Lymphocytes # Monocytes # Eosinophils # Basophils # Sample Site ABG pH ABG pCO2 ABG pO2 ABG HCO3 ABG Total CO2 ABG O2 Saturation ABG Base Excess Michael Test Respiration Rate O2 Delivery Device Blood Gas Modality Inspired O2 Tidal Volume PEEP Sodium 144 Potassium Chloride Carbon Dioxide BUN Creatinine Est GFR ( Amer) Est GFR (Non-Af Amer) BUN/Creatinine Ratio Glucose POC Glucose 134 H 179 H Serum Osmolality Calculated Osmolality Lactic Acid Calcium Phosphorus Magnesium Urine Color Urine Clarity Urine pH Ur Specific [place] Urine Protein Urine Glucose (UA) Urine Ketones Urine Blood Urine Nitrite Urine Bilirubin Urine Urobilinogen Ur Leukocyte Esterase Urine Microscopic RBC Urine Microscopic WBC Ur Squamous Epith Cells Urine Bacteria Hyaline Casts Ur Culture Indicated? Urine Osmolality Urine Sodium 07/10/18 07/10/18 07/10/18 15:07 16:07 17:18 WBC RBC Hgb Hct MCV MCH MCHC RDW Plt Count MPV Immature Gran % Seg Neutrophils % Lymphocytes % Monocytes % Eosinophils % Basophils % Neutrophils # Lymphocytes # Monocytes # Eosinophils # Basophils # Sample Site ABG pH ABG pCO2 ABG pO2 ABG HCO3 ABG Total CO2 ABG O2 Saturation ABG Base Excess Michael Test Respiration Rate O2 Delivery Device Blood Gas Modality Inspired O2 Tidal Volume PEEP Sodium Potassium Chloride Carbon Dioxide BUN Creatinine Est GFR ( Amer) Est GFR (Non-Af Amer) BUN/Creatinine Ratio Glucose POC Glucose 167 H 177 H 170 H Serum Osmolality Calculated Osmolality Lactic Acid Calcium Phosphorus Magnesium Urine Color Urine Clarity Urine pH Ur Specific [place] Urine Protein Urine Glucose (UA) Urine Ketones Urine Blood Urine Nitrite Urine Bilirubin Urine Urobilinogen Ur Leukocyte Esterase Urine Microscopic RBC Urine Microscopic WBC Ur Squamous Epith Cells Urine Bacteria Hyaline Casts Ur Culture Indicated? Urine Osmolality Urine Sodium 07/10/18 07/10/18 07/10/18 18:00 18:52 20:00 WBC RBC Hgb Hct MCV MCH MCHC RDW Plt Count MPV Immature Gran % Seg Neutrophils % Lymphocytes % Monocytes % Eosinophils % Basophils % Neutrophils # Lymphocytes # Monocytes # Eosinophils # Basophils # Sample Site ABG pH ABG pCO2 ABG pO2 ABG HCO3 ABG Total CO2 ABG O2 Saturation ABG Base Excess Michael Test Respiration Rate O2 Delivery Device Blood Gas Modality Inspired O2 Tidal Volume PEEP Sodium 147 H Potassium Chloride Carbon Dioxide BUN Creatinine Est GFR ( Amer) Est GFR (Non-Af Amer) BUN/Creatinine Ratio Glucose POC Glucose 165 H 175 H Serum Osmolality Calculated Osmolality Lactic Acid Calcium Phosphorus Magnesium Urine Color Urine Clarity Urine pH Ur Specific [place] Urine Protein Urine Glucose (UA) Urine Ketones Urine Blood Urine Nitrite Urine Bilirubin Urine Urobilinogen Ur Leukocyte Esterase Urine Microscopic RBC Urine Microscopic WBC Ur Squamous Epith Cells Urine Bacteria Hyaline Casts Ur Culture Indicated? Urine Osmolality Urine Sodium 07/10/18 07/10/18 07/10/18 20:08 21:08 22:12 WBC RBC Hgb Hct MCV MCH MCHC RDW Plt Count MPV Immature Gran % Seg Neutrophils % Lymphocytes % Monocytes % Eosinophils % Basophils % Neutrophils # Lymphocytes # Monocytes # Eosinophils # Basophils # Sample Site ABG pH ABG pCO2 ABG pO2 ABG HCO3 ABG Total CO2 ABG O2 Saturation ABG Base Excess Michael Test Respiration Rate O2 Delivery Device Blood Gas Modality Inspired O2 Tidal Volume PEEP Sodium Potassium Chloride Carbon Dioxide BUN Creatinine Est GFR ( Amer) Est GFR (Non-Af Amer) BUN/Creatinine Ratio Glucose POC Glucose 154 H 182 H 175 H Serum Osmolality Calculated Osmolality Lactic Acid Calcium Phosphorus Magnesium Urine Color Urine Clarity Urine pH Ur Specific [place] Urine Protein Urine Glucose (UA) Urine Ketones Urine Blood Urine Nitrite Urine Bilirubin Urine Urobilinogen Ur Leukocyte Esterase Urine Microscopic RBC Urine Microscopic WBC Ur Squamous Epith Cells Urine Bacteria Hyaline Casts Ur Culture Indicated? Urine Osmolality Urine Sodium 07/10/18 07/11/18 07/11/18 23:08 00:16 00:55 WBC RBC Hgb Hct MCV MCH MCHC RDW Plt Count MPV Immature Gran % Seg Neutrophils % Lymphocytes % Monocytes % Eosinophils % Basophils % Neutrophils # Lymphocytes # Monocytes # Eosinophils # Basophils # Sample Site ABG pH ABG pCO2 ABG pO2 ABG HCO3 ABG Total CO2 ABG O2 Saturation ABG Base Excess Michael Test Respiration Rate O2 Delivery Device Blood Gas Modality Inspired O2 Tidal Volume PEEP Sodium Potassium Chloride Carbon Dioxide BUN Creatinine Est GFR ( Amer) Est GFR (Non-Af Amer) BUN/Creatinine Ratio Glucose POC Glucose 182 H 177 H 160 H Serum Osmolality Calculated Osmolality Lactic Acid Calcium Phosphorus Magnesium Urine Color Urine Clarity Urine pH Ur Specific [place] Urine Protein Urine Glucose (UA) Urine Ketones Urine Blood Urine Nitrite Urine Bilirubin Urine Urobilinogen Ur Leukocyte Esterase Urine Microscopic RBC Urine Microscopic WBC Ur Squamous Epith Cells Urine Bacteria Hyaline Casts Ur Culture Indicated? Urine Osmolality Urine Sodium 07/11/18 07/11/18 07/11/18 01:59 03:09 03:40 WBC 7.6 RBC 2.35 L Hgb 7.1 L Hct 23.0 L MCV 97.9 MCH 30.2 MCHC 30.9 L RDW 15.4 H Plt Count 155 MPV 11.5 Immature Gran % 0.5 Seg Neutrophils % 64.9 Lymphocytes % 20.2 Monocytes % 7.4 Eosinophils % 6.7 Basophils % 0.3 Neutrophils # 4.9 Lymphocytes # 1.5 Monocytes # 0.6 Eosinophils # 0.5 Basophils # 0.0 Sample Site ABG pH ABG pCO2 ABG pO2 ABG HCO3 ABG Total CO2 ABG O2 Saturation ABG Base Excess Michael Test Respiration Rate O2 Delivery Device Blood Gas Modality Inspired O2 Tidal Volume PEEP Sodium Potassium Chloride Carbon Dioxide BUN Creatinine Est GFR ( Amer) Est GFR (Non-Af Amer) BUN/Creatinine Ratio Glucose POC Glucose 187 H 170 H Serum Osmolality Calculated Osmolality Lactic Acid Calcium Phosphorus Magnesium Urine Color Urine Clarity Urine pH Ur Specific [place] Urine Protein Urine Glucose (UA) Urine Ketones Urine Blood Urine Nitrite Urine Bilirubin Urine Urobilinogen Ur Leukocyte Esterase Urine Microscopic RBC Urine Microscopic WBC Ur Squamous Epith Cells Urine Bacteria Hyaline Casts Ur Culture Indicated? Urine Osmolality Urine Sodium 07/11/18 07/11/18 07/11/18 03:40 04:04 05:02 WBC RBC Hgb Hct MCV MCH MCHC RDW Plt Count MPV Immature Gran % Seg Neutrophils % Lymphocytes % Monocytes % Eosinophils % Basophils % Neutrophils # Lymphocytes # Monocytes # Eosinophils # Basophils # Sample Site ABG pH ABG pCO2 ABG pO2 ABG HCO3 ABG Total CO2 ABG O2 Saturation ABG Base Excess Michael Test Respiration Rate O2 Delivery Device Blood Gas Modality Inspired O2 Tidal Volume PEEP Sodium 148 H Potassium 3.9 Chloride 115 H Carbon Dioxide 26 BUN 41 H Creatinine 1.87 H Est GFR ( Amer) 46 L Est GFR (Non-Af Amer) 38 L BUN/Creatinine Ratio 22 Glucose 160 H POC Glucose 154 H 151 H Serum Osmolality Calculated Osmolality 320 H Lactic Acid Calcium 9.0 Phosphorus 3.1 Magnesium 1.9 Urine Color Urine Clarity Urine pH Ur Specific [place] Urine Protein Urine Glucose (UA) Urine Ketones Urine Blood Urine Nitrite Urine Bilirubin Urine Urobilinogen Ur Leukocyte Esterase Urine Microscopic RBC Urine Microscopic WBC Ur Squamous Epith Cells Urine Bacteria Hyaline Casts Ur Culture Indicated? Urine Osmolality Urine Sodium 07/11/18 07/11/18 07/11/18 05:09 05:12 05:22 WBC RBC Hgb Hct MCV MCH MCHC RDW Plt Count MPV Immature Gran % Seg Neutrophils % Lymphocytes % Monocytes % Eosinophils % Basophils % Neutrophils # Lymphocytes # Monocytes # Eosinophils # Basophils # Sample Site L Radial ABG pH 7.41 ABG pCO2 46 H ABG pO2 62 L ABG HCO3 29 H ABG Total CO2 30 H ABG O2 Saturation 91 L ABG Base Excess 4 H Michael Test N/A Respiration Rate 16 O2 Delivery Device Adult Vent Blood Gas Modality PRVC Inspired O2 40.0 Tidal Volume 460 PEEP 5 Sodium Potassium Chloride Carbon Dioxide BUN Creatinine Est GFR ( Amer) Est GFR (Non-Af Amer) BUN/Creatinine Ratio Glucose POC Glucose Serum Osmolality Calculated Osmolality Lactic Acid 0.9 Calcium Phosphorus Magnesium Urine Color Yellow Urine Clarity Hazy Urine pH 5.5 Ur Specific [place] 1.013 Urine Protein 30 H Urine Glucose (UA) Normal Urine Ketones Negative Urine Blood Large H Urine Nitrite Negative Urine Bilirubin Negative Urine Urobilinogen Normal Ur Leukocyte Esterase Small H Urine Microscopic RBC 0-3 Urine Microscopic WBC 5-15 H Ur Squamous Epith Cells Many H Urine Bacteria Few Hyaline Casts None Seen Ur Culture Indicated? NO. A Urine Osmolality Urine Sodium 07/11/18 07/11/18 07/11/18 06:11 06:57 08:09 WBC RBC Hgb Hct MCV MCH MCHC RDW Plt Count MPV Immature Gran % Seg Neutrophils % Lymphocytes % Monocytes % Eosinophils % Basophils % Neutrophils # Lymphocytes # Monocytes # Eosinophils # Basophils # Sample Site ABG pH ABG pCO2 ABG pO2 ABG HCO3 ABG Total CO2 ABG O2 Saturation ABG Base Excess Michael Test Respiration Rate O2 Delivery Device Blood Gas Modality Inspired O2 Tidal Volume PEEP Sodium Potassium Chloride Carbon Dioxide BUN Creatinine Est GFR ( Amer) Est GFR (Non-Af Amer) BUN/Creatinine Ratio Glucose POC Glucose 150 H 160 H 137 H Serum Osmolality Calculated Osmolality Lactic Acid Calcium Phosphorus Magnesium Urine Color Urine Clarity Urine pH Ur Specific [place] Urine Protein Urine Glucose (UA) Urine Ketones Urine Blood Urine Nitrite Urine Bilirubin Urine Urobilinogen Ur Leukocyte Esterase Urine Microscopic RBC Urine Microscopic WBC Ur Squamous Epith Cells Urine Bacteria Hyaline Casts Ur Culture Indicated? Urine Osmolality Urine Sodium 07/11/18 07/11/18 09:12 09:45 WBC RBC Hgb Hct MCV MCH MCHC RDW Plt Count MPV Immature Gran % Seg Neutrophils % Lymphocytes % Monocytes % Eosinophils % Basophils % Neutrophils # Lymphocytes # Monocytes # Eosinophils # Basophils # Sample Site ABG pH ABG pCO2 ABG pO2 ABG HCO3 ABG Total CO2 ABG O2 Saturation ABG Base Excess Michael Test Respiration Rate O2 Delivery Device Blood Gas Modality Inspired O2 Tidal Volume PEEP Sodium Potassium Chloride Carbon Dioxide BUN Creatinine Est GFR ( Amer) Est GFR (Non-Af Amer) BUN/Creatinine Ratio Glucose POC Glucose 140 H 146 H Serum Osmolality Calculated Osmolality Lactic Acid Calcium Phosphorus Magnesium Urine Color Urine Clarity Urine pH Ur Specific [place] Urine Protein Urine Glucose (UA) Urine Ketones Urine Blood Urine Nitrite Urine Bilirubin Urine Urobilinogen Ur Leukocyte Esterase Urine Microscopic RBC Urine Microscopic WBC Ur Squamous Epith Cells Urine Bacteria Hyaline Casts Ur Culture Indicated? Urine Osmolality Urine Sodium Cultures: Cultures 07/11/18 05:11 Blood Culture - Preliminary Peripheral Venipuncture Culture is incubating and being continuously monitored for growth. Final report to follow. 07/11/18 05:20 Blood Culture - Preliminary Central Venous Catheter Culture is incubating and being continuously monitored for growth. Final report to follow. 07/04/18 11:59 Blood Culture - Final Peripheral Venipuncture No growth. Final report. 07/04/18 10:34 Blood Culture - Final Peripheral Venipuncture No growth. Final report. 07/04/18 07:38 Sputum Culture - Final Aspirate Acinetobacter baumannii complx 07/01/18 09:03 Urine Culture - Final Urine,Catheterized Escherichia coli 06/24/18 11:35 Blood Culture - Final Peripheral Venipuncture No growth. Final report. 06/24/18 11:35 Blood Culture - Final Peripheral Venipuncture No growth. Final report. 06/19/18 12:46 Blood Culture - Final Peripheral Venipuncture No growth. Final report. 06/19/18 12:46 Blood Culture - Final Peripheral Venipuncture No growth. Final report. 06/18/18 20:45 Sputum Culture - Final Sputum 06/20/18 11:30 Legionella Antigen - Final Urine,[place] Streptococcus pneumoniae Antigen (M - Final Serology 07/11/18 07/10/18 07/10/18 Range/Units 05:22 08:30 08:30 Urine Color Yellow (Yellow) Urine Clarity Hazy (Clear) Urine pH 5.5 (5.0-8.0) pH Units Ur Specific [place] 1.013 (1.010-1.025) Urine Protein 30 H (Neg-Trace) mg/dL Urine Glucose (UA) Normal (Normal) mg/dL Urine Ketones Negative (Negative) mg/dL Urine Blood Large H (Negative) Urine Nitrite Negative (Negative) Urine Bilirubin Negative (Negative) Urine Urobilinogen Normal (Normal) mg/dL Ur Leukocyte Esterase Small H (Negative) Urine Microscopic RBC 0-3 (0-3) per hpf Urine Microscopic WBC 5-15 H (0-3) per hpf Ur Eosinophil Smear (None Seen) % Ur Squamous Epith Cells Many H (None-Few) per lpf Urine Bacteria Few (None-Few) per hpf Hyaline Casts None Seen (None-Few) per lpf Ur Culture Indicated? NO. A (NO) Urine Osmolality 287 L (300-1090) mOsm/kg Urine Creatinine mg/dL Protein/Creatinin Ratio (0.00-0.20) mg/mg Urine Sodium 57.9 mEq/L Urine Potassium mEq/L Urine Chloride mEq/L Urine Total Protein (1-14) mg/dL Nasal Screen MRSA (PCR) (Negative) Chlamy pneumoniae PCR (Not Detect) Adenovirus (PCR) (Not Detect) B. pertussis DNA (PCR) (Not Detect) B.parapertussis DNA PCR (Not Detect) Coronavirus OC43 (PCR) (Not Detect) Coronavirus HKU1 (PCR) (Not Detect) Coronavirus 229E (PCR) (Not Detect) Coronavirus NL63 (PCR) (Not Detect) Hep Bs Antigen (Nonreactive) Hep Bs Antibody mIU/mL Herpes Simplex Source HSV I (Not Detect) HSV II (Not Detect) HIV Ag/Ab Combo Qual (Nonreactive) Human Metapneumovir PCR (Not Detect) Influenza A (H1) PCR (Not Detect) Influ A (H1N1/09) PCR (Not Detect) Influenza A (H3) PCR (Not Detect) Influenza A Untype (PCR) (Not Detect) Influenza Type B (PCR) (Not Detect) M.pneumoniae DNA (PCR) (Not Detect) Parainfluenza 1 (PCR) (Not Detect) Parainfluenza 2 (PCR) (Not Detect) Parainfluenza 3 (PCR) (Not Detect) Parainfluenza 4 (PCR) (Not Detect) RSV (PCR) (Not Detect) Entero/Rhino (PCR) (Not Detect) 07/09/18 07/09/18 07/05/18 Range/Units 10:00 10:00 17:50 Urine Color (Yellow) Urine Clarity (Clear) Urine pH (5.0-8.0) pH Units Ur Specific [place] (1.010-1.025) Urine Protein (Neg-Trace) mg/dL Urine Glucose (UA) (Normal) mg/dL Urine Ketones (Negative) mg/dL Urine Blood (Negative) Urine Nitrite (Negative) Urine Bilirubin (Negative) Urine Urobilinogen (Normal) mg/dL Ur Leukocyte Esterase (Negative) Urine Microscopic RBC (0-3) per hpf Urine Microscopic WBC (0-3) per hpf Ur Eosinophil Smear (None Seen) % Ur Squamous Epith Cells (None-Few) per lpf Urine Bacteria (None-Few) per hpf Hyaline Casts (None-Few) per lpf Ur Culture Indicated? (NO) Urine Osmolality 137 L (300-1090) mOsm/kg Urine Creatinine mg/dL Protein/Creatinin Ratio (0.00-0.20) mg/mg Urine Sodium 39.1 mEq/L Urine Potassium mEq/L Urine Chloride mEq/L Urine Total Protein (1-14) mg/dL Nasal Screen MRSA (PCR) Negative (Negative) Chlamy pneumoniae PCR (Not Detect) Adenovirus (PCR) (Not Detect) B. pertussis DNA (PCR) (Not Detect) B.parapertussis DNA PCR (Not Detect) Coronavirus OC43 (PCR) (Not Detect) Coronavirus HKU1 (PCR) (Not Detect) Coronavirus 229E (PCR) (Not Detect) Coronavirus NL63 (PCR) (Not Detect) Hep Bs Antigen (Nonreactive) Hep Bs Antibody mIU/mL Herpes Simplex Source HSV I (Not Detect) HSV II (Not Detect) HIV Ag/Ab Combo Qual (Nonreactive) Human Metapneumovir PCR (Not Detect) Influenza A (H1) PCR (Not Detect) Influ A (H1N1/09) PCR (Not Detect) Influenza A (H3) PCR (Not Detect) Influenza A Untype (PCR) (Not Detect) Influenza Type B (PCR) (Not Detect) M.pneumoniae DNA (PCR) (Not Detect) Parainfluenza 1 (PCR) (Not Detect) Parainfluenza 2 (PCR) (Not Detect) Parainfluenza 3 (PCR) (Not Detect) Parainfluenza 4 (PCR) (Not Detect) RSV (PCR) (Not Detect) Entero/Rhino (PCR) (Not Detect) 07/01/18 06/30/18 06/30/18 Range/Units 09:03 09:34 09:34 Urine Color Yellow (Yellow) Urine Clarity Clear (Clear) Urine pH 7.0 (5.0-8.0) pH Units Ur Specific [place] < 1.005 L (1.010-1.025) Urine Protein Trace (Neg-Trace) mg/dL Urine Glucose (UA) Normal (Normal) mg/dL Urine Ketones Negative (Negative) mg/dL Urine Blood Moderate H (Negative) Urine Nitrite Negative (Negative) Urine Bilirubin Negative (Negative) Urine Urobilinogen Normal (Normal) mg/dL Ur Leukocyte Esterase Moderate H (Negative) Urine Microscopic RBC 3-5 H (0-3) per hpf Urine Microscopic WBC 50-100 H (0-3) per hpf Ur Eosinophil Smear 0 (None Seen) % Ur Squamous Epith Cells None Seen (None-Few) per lpf Urine Bacteria Many H (None-Few) per hpf Hyaline Casts None Seen (None-Few) per lpf Ur Culture Indicated? (NO) Urine Osmolality (300-1090) mOsm/kg Urine Creatinine 31 mg/dL Protein/Creatinin Ratio 1.68 H (0.00-0.20) mg/mg Urine Sodium 40.6 mEq/L Urine Potassium mEq/L Urine Chloride mEq/L Urine Total Protein 52 H (1-14) mg/dL Nasal Screen MRSA (PCR) (Negative) Chlamy pneumoniae PCR (Not Detect) Adenovirus (PCR) (Not Detect) B. pertussis DNA (PCR) (Not Detect) B.parapertussis DNA PCR (Not Detect) Coronavirus OC43 (PCR) (Not Detect) Coronavirus HKU1 (PCR) (Not Detect) Coronavirus 229E (PCR) (Not Detect) Coronavirus NL63 (PCR) (Not Detect) Hep Bs Antigen (Nonreactive) Hep Bs Antibody mIU/mL Herpes Simplex Source HSV I (Not Detect) HSV II (Not Detect) HIV Ag/Ab Combo Qual (Nonreactive) Human Metapneumovir PCR (Not Detect) Influenza A (H1) PCR (Not Detect) Influ A (H1N1/09) PCR (Not Detect) Influenza A (H3) PCR (Not Detect) Influenza A Untype (PCR) (Not Detect) Influenza Type B (PCR) (Not Detect) M.pneumoniae DNA (PCR) (Not Detect) Parainfluenza 1 (PCR) (Not Detect) Parainfluenza 2 (PCR) (Not Detect) Parainfluenza 3 (PCR) (Not Detect) Parainfluenza 4 (PCR) (Not Detect) RSV (PCR) (Not Detect) Entero/Rhino (PCR) (Not Detect) 06/30/18 06/24/18 06/24/18 Range/Units 09:33 15:10 11:15 Urine Color Yellow (Yellow) Urine Clarity Hazy (Clear) Urine pH 6.0 (5.0-8.0) pH Units Ur Specific [place] 1.013 (1.010-1.025) Urine Protein 30 H (Neg-Trace) mg/dL Urine Glucose (UA) Normal (Normal) mg/dL Urine Ketones Negative (Negative) mg/dL Urine Blood Moderate H (Negative) Urine Nitrite Negative (Negative) Urine Bilirubin Small H (Negative) Urine Urobilinogen Normal (Normal) mg/dL Ur Leukocyte Esterase Moderate H (Negative) Urine Microscopic RBC 3-5 H (0-3) per hpf Urine Microscopic WBC 50-100 H (0-3) per hpf Ur Eosinophil Smear (None Seen) % Ur Squamous Epith Cells Many H (None-Few) per lpf Urine Bacteria None Seen (None-Few) per hpf Hyaline Casts None Seen (None-Few) per lpf Ur Culture Indicated? (NO) Urine Osmolality 200 L (300-1090) mOsm/kg Urine Creatinine mg/dL Protein/Creatinin Ratio (0.00-0.20) mg/mg Urine Sodium mEq/L Urine Potassium mEq/L Urine Chloride mEq/L Urine Total Protein (1-14) mg/dL Nasal Screen MRSA (PCR) (Negative) Chlamy pneumoniae PCR (Not Detect) Adenovirus (PCR) (Not Detect) B. pertussis DNA (PCR) (Not Detect) B.parapertussis DNA PCR (Not Detect) Coronavirus OC43 (PCR) (Not Detect) Coronavirus HKU1 (PCR) (Not Detect) Coronavirus 229E (PCR) (Not Detect) Coronavirus NL63 (PCR) (Not Detect) Hep Bs Antigen (Nonreactive) Hep Bs Antibody mIU/mL Herpes Simplex Source [place] HSV I DETECTED A (Not Detect) HSV II Not Detected (Not Detect) HIV Ag/Ab Combo Qual (Nonreactive) Human Metapneumovir PCR (Not Detect) Influenza A (H1) PCR (Not Detect) Influ A (H1N1/09) PCR (Not Detect) Influenza A (H3) PCR (Not Detect) Influenza A Untype (PCR) (Not Detect) Influenza Type B (PCR) (Not Detect) M.pneumoniae DNA (PCR) (Not Detect) Parainfluenza 1 (PCR) (Not Detect) Parainfluenza 2 (PCR) (Not Detect) Parainfluenza 3 (PCR) (Not Detect) Parainfluenza 4 (PCR) (Not Detect) RSV (PCR) (Not Detect) Entero/Rhino (PCR) (Not Detect) 06/23/18 06/23/18 06/20/18 Range/Units 20:00 08:10 11:30 Urine Color (Yellow) Urine Clarity (Clear) Urine pH (5.0-8.0) pH Units Ur Specific [place] (1.010-1.025) Urine Protein (Neg-Trace) mg/dL Urine Glucose (UA) (Normal) mg/dL Urine Ketones (Negative) mg/dL Urine Blood (Negative) Urine Nitrite (Negative) Urine Bilirubin (Negative) Urine Urobilinogen (Normal) mg/dL Ur Leukocyte Esterase (Negative) Urine Microscopic RBC (0-3) per hpf Urine Microscopic WBC (0-3) per hpf Ur Eosinophil Smear (None Seen) % Ur Squamous Epith Cells (None-Few) per lpf Urine Bacteria (None-Few) per hpf Hyaline Casts (None-Few) per lpf Ur Culture Indicated? (NO) Urine Osmolality (300-1090) mOsm/kg Urine Creatinine mg/dL Protein/Creatinin Ratio (0.00-0.20) mg/mg Urine Sodium mEq/L Urine Potassium mEq/L Urine Chloride mEq/L Urine Total Protein (1-14) mg/dL Nasal Screen MRSA (PCR) (Negative) Chlamy pneumoniae PCR Not Detected (Not Detect) Adenovirus (PCR) Not Detected (Not Detect) B. pertussis DNA (PCR) Not Detected (Not Detect) B.parapertussis DNA PCR Not Detected (Not Detect) Coronavirus OC43 (PCR) Not Detected (Not Detect) Coronavirus HKU1 (PCR) Not Detected (Not Detect) Coronavirus 229E (PCR) Not Detected (Not Detect) Coronavirus NL63 (PCR) Not Detected (Not Detect) Hep Bs Antigen Nonreactive (Nonreactive) Hep Bs Antibody 0.00 mIU/mL Herpes Simplex Source HSV I (Not Detect) HSV II (Not Detect) HIV Ag/Ab Combo Qual Nonreactive (Nonreactive) Human Metapneumovir PCR Not Detected (Not Detect) Influenza A (H1) PCR Not Detected (Not Detect) Influ A (H1N1/09) PCR Not Detected (Not Detect) Influenza A (H3) PCR Not Detected (Not Detect) Influenza A Untype (PCR) Not Detected (Not Detect) Influenza Type B (PCR) Not Detected (Not Detect) M.pneumoniae DNA (PCR) Not Detected (Not Detect) Parainfluenza 1 (PCR) Not Detected (Not Detect) Parainfluenza 2 (PCR) Not Detected (Not Detect) Parainfluenza 3 (PCR) Not Detected (Not Detect) Parainfluenza 4 (PCR) Not Detected (Not Detect) RSV (PCR) Not Detected (Not Detect) Entero/Rhino (PCR) Not Detected (Not Detect) 06/18/18 06/18/18 06/17/18 Range/Units 10:28 10:28 18:15 Urine Color (Yellow) Urine Clarity (Clear) Urine pH (5.0-8.0) pH Units Ur Specific [place] (1.010-1.025) Urine Protein (Neg-Trace) mg/dL Urine Glucose (UA) (Normal) mg/dL Urine Ketones (Negative) mg/dL Urine Blood (Negative) Urine Nitrite (Negative) Urine Bilirubin (Negative) Urine Urobilinogen (Normal) mg/dL Ur Leukocyte Esterase (Negative) Urine Microscopic RBC (0-3) per hpf Urine Microscopic WBC (0-3) per hpf Ur Eosinophil Smear (None Seen) % Ur Squamous Epith Cells (None-Few) per lpf Urine Bacteria (None-Few) per hpf Hyaline Casts (None-Few) per lpf Ur Culture Indicated? (NO) Urine Osmolality 343 (300-1090) mOsm/kg Urine Creatinine mg/dL Protein/Creatinin Ratio (0.00-0.20) mg/mg Urine Sodium 128.8 mEq/L Urine Potassium 36.5 7.5 mEq/L Urine Chloride 135 mEq/L Urine Total Protein (1-14) mg/dL Nasal Screen MRSA (PCR) (Negative) Chlamy pneumoniae PCR (Not Detect) Adenovirus (PCR) (Not Detect) B. pertussis DNA (PCR) (Not Detect) B.parapertussis DNA PCR (Not Detect) Coronavirus OC43 (PCR) (Not Detect) Coronavirus HKU1 (PCR) (Not Detect) Coronavirus 229E (PCR) (Not Detect) Coronavirus NL63 (PCR) (Not Detect) Hep Bs Antigen (Nonreactive) Hep Bs Antibody mIU/mL Herpes Simplex Source HSV I (Not Detect) HSV II (Not Detect) HIV Ag/Ab Combo Qual (Nonreactive) Human Metapneumovir PCR (Not Detect) Influenza A (H1) PCR (Not Detect) Influ A (H1N1/09) PCR (Not Detect) Influenza A (H3) PCR (Not Detect) Influenza A Untype (PCR) (Not Detect) Influenza Type B (PCR) (Not Detect) M.pneumoniae DNA (PCR) (Not Detect) Parainfluenza 1 (PCR) (Not Detect) Parainfluenza 2 (PCR) (Not Detect) Parainfluenza 3 (PCR) (Not Detect) Parainfluenza 4 (PCR) (Not Detect) RSV (PCR) (Not Detect) Entero/Rhino (PCR) (Not Detect) 06/17/18 06/17/18 Range/Units 11:56 11:30 Urine Color (Yellow) Urine Clarity (Clear) Urine pH (5.0-8.0) pH Units Ur Specific [place] (1.010-1.025) Urine Protein (Neg-Trace) mg/dL Urine Glucose (UA) (Normal) mg/dL Urine Ketones (Negative) mg/dL Urine Blood (Negative) Urine Nitrite (Negative) Urine Bilirubin (Negative) Urine Urobilinogen (Normal) mg/dL Ur Leukocyte Esterase (Negative) Urine Microscopic RBC (0-3) per hpf Urine Microscopic WBC (0-3) per hpf Ur Eosinophil Smear (None Seen) % Ur Squamous Epith Cells (None-Few) per lpf Urine Bacteria (None-Few) per hpf Hyaline Casts (None-Few) per lpf Ur Culture Indicated? (NO) Urine Osmolality (300-1090) mOsm/kg Urine Creatinine mg/dL Protein/Creatinin Ratio (0.00-0.20) mg/mg Urine Sodium mEq/L Urine Potassium mEq/L Urine Chloride mEq/L Urine Total Protein (1-14) mg/dL Nasal Screen MRSA (PCR) Negative (Negative) Chlamy pneumoniae PCR Not Detected (Not Detect) Adenovirus (PCR) Not Detected (Not Detect) B. pertussis DNA (PCR) Not Detected (Not Detect) B.parapertussis DNA PCR Not Detected (Not Detect) Coronavirus OC43 (PCR) Not Detected (Not Detect) Coronavirus HKU1 (PCR) Not Detected (Not Detect) Coronavirus 229E (PCR) Not Detected (Not Detect) Coronavirus NL63 (PCR) Not Detected (Not Detect) Hep Bs Antigen (Nonreactive) Hep Bs Antibody mIU/mL Herpes Simplex Source HSV I (Not Detect) HSV II (Not Detect) HIV Ag/Ab Combo Qual (Nonreactive) Human Metapneumovir PCR Not Detected (Not Detect) Influenza A (H1) PCR Not Detected (Not Detect) Influ A (H1N1/09) PCR Not Detected (Not Detect) Influenza A (H3) PCR Not Detected (Not Detect) Influenza A Untype (PCR) Not Detected (Not Detect) Influenza Type B (PCR) Not Detected (Not Detect) M.pneumoniae DNA (PCR) Not Detected (Not Detect) Parainfluenza 1 (PCR) Not Detected (Not Detect) Parainfluenza 2 (PCR) Not Detected (Not Detect) Parainfluenza 3 (PCR) Not Detected (Not Detect) Parainfluenza 4 (PCR) Not Detected (Not Detect) RSV (PCR) Not Detected (Not Detect) Entero/Rhino (PCR) Not Detected (Not Detect) - Impressions Impressions Head CT 07/10/18 11:00 IMPRESSION: No acute intracranial abnormality. Diffuse atrophic changes with findings suggesting chronic microvascular ischemia Partial opacification of the left side of the sphenoid sinus and the mastoid air cells, correlate for signs of infection D/ / Fawad Whiteside MD / Fawad Whiteside MD Interpreting Provider: Fawad Whiteside MD Chest X-Ray 07/11/18 04:00 IMPRESSION: No acute interval change. D/ / Celio Simon / Celio Simon Interpreting Provider: Celio Simon Exam - Constitutional Vitals: Temp Pulse Resp BP Pulse Ox 100.3 F H 75 17 101/68 93 07/11/18 08:11 07/11/18 09:00 07/11/18 09:06 07/11/18 09:06 07/11/18 09:06 General appearance: no acute distress, obese, no febrile - Head Head exam: Present: atraumatic, normal inspection, normocephalic - Eye Eye exam: Present: normal appearance, PERRL Pupils: Present: normal accommodation - ENT ENT exam: Present: mucous membranes moist - Neck Neck exam: Present: normal inspection Additional comments: Temporary dialysis catheter noted to the right neck with transparent dressing C/ D/I. - Respiratory Respiratory exam: Present: rhonchi (throughout). Absent: rales, respiratory distress, wheezes - Cardiovascular Cardiovascular exam: Present: RRR, +S1, +S2 - GI/Abdominal GI/Abdominal exam: Present: distended (obese), normal bowel sounds, soft. Absent: tenderness Additional comments: Jacobo catheter noted to be draining clear yellow urine. - Extremities Exam Extremities exam: Present: normal inspection. Absent: joint swelling, pedal edema, tenderness - Neurological Exam Neurological exam: Present: altered (Sedated. Does not follow commands, open eyes, or participate in exam.) - Skin Skin exam: Present: dry, intact, normal color, warm - VTE Documentation of Mechanical Device: Intermittent pneumatic compression device Consult Discharge Plan - Plan Referrals: Sheryl Stahl, BAG SEWER [Primary Care Provider] - - Attending Attestation I examined this patient and my medical decision-making was reviewed with the Resident Physician. I agree with the documented findings, disposition and treatment plan as described except to the extent set forth below.
[2018-07-11 10:11] LABS: INR 1.4; Prothrombin Time 15.6 Seconds (9.4-12.1)
[2018-07-11 10:13] LABS: Activated Partial Thrombo Time 35.2 Seconds (26.0-36.0)
[2018-07-11] MEDS: FentaNYL (PF) 2,500 MCG in EMPTY BAG 1 EACH IVC SCH (10:45)
[2018-07-11] MEDS ORDERED: Vancomycin 1,750 MG in 0.9 % Sodium Chloride 250 ML IVPB SCH (12:00)
[2018-07-11] MEDS: Desmopressin 2 MCG in 0.9 % Sodium Chloride 50 ML IVPB SCH (13:01)
[2018-07-11] MEDS: Piperacillin/Tazobactam 3.375 GM in 0.9 % Sodium Chloride Mini Bag 100 ML IVPB SCH ×2 (13:06→19:03)
[2018-07-11] MEDS ORDERED: *HR* Vecuronium 10 MG VIAL ONE (13:32)
[2018-07-11] MEDS ORDERED: *HR* Vecuronium 10 MG VIAL IVP ONE (14:30)
[2018-07-11 15:07] LABS: Calcium 8.9 mg/dL (8.6-10.3); Potassium 4.2 mEq/L (3.5-5.1)
[2018-07-11] MEDS: Scopolamine Patch 1.5 MG PATCH.TD72 TD SCH (17:06)
--- NOTE | 2018-07-11 19:41 | Pulmonology Progress Note ---
Date of Encounter: 07/11/18 Time of Encounter: 09:00 Assessment and Plan (1) Acute respiratory failure with hypoxemia Current Visit: Yes Status: Acute Patient has prolonged mechanical ventilation for more than 24 days tried smart care for almost 4 days he failed the spontaneous breathing trial with pressure support even. The reason for this repeated failing liberated from ventricular ventilator most likely due to critical illness myopathy and polyneuropathy on top of that. tracheostomy which will help in this liberation. (2) Septic shock Current Visit: Yes Status: Acute Patient has septic shock secondary to pneumonia but now looks like shock is resolved. (3) Systolic heart failure Current Visit: Yes Status: Deleted Patient is hemodynamically stable we will start on diuresis as tolerated. Qualifiers: Heart failure chronicity: acute on chronic Qualified Code(s): I50.23 - Acute on chronic systolic (congestive) heart failure (4) LUCILA (acute kidney injury) Current Visit: Yes Status: Acute Patient had many settings of dialysis during initial hospital stay. Nephrology following (5) DVT prophylaxis Current Visit: Yes Status: Acute To continue thromboprophylaxis. (6) Type 2 diabetes mellitus Current Visit: Yes Status: Chronic Qualifiers: Diabetes mellitus terminal press operator insulin use: with detention use Diabetes mellitus complication status: with unspecified complications Qualified Code(s) : E11.8 - Type 2 diabetes mellitus with unspecified complications; Z79.4 - correction (current) use of insulin (7) COPD (chronic obstructive pulmonary disease) Current Visit: Yes Status: Chronic As acceptable oxygenation and ventilation patient had the percutaneous tracheostomy was contributed to the same volume control mode. Qualifiers: COPD type: emphysema Emphysema type: unspecified Qualified Code(s): J43.9 - Emphysema, unspecified Subjective Principal diagnosis: septic shock Interval history: 52 year old male has pneumonia and he has had a prolonged recovery time almost 24 days on mechanical ventilation. Objective PUL Vital signs: Last Vital Signs Temp 99.7 F H 07/11/18 19:00 Pulse 70 07/11/18 19:25 Resp 19 07/11/18 19:25 BP 101/58 07/11/18 19:25 Pulse Ox 95 07/11/18 19:25 General appearance: asleep Auscultation: bilateral: diminished breath sounds (bilateral , bibasilar ) Extremities: edema, anasarca Ventilator Settings Ventilator Settings: Ventilator Settings, Last 8 Hours Ventilator Tidal Volume 460 Setting Ventilator Tidal Volume 460 Setting Ventilator Tidal Volume 460 Setting Ventilator Tidal Volume 460 Setting Ventilator Tidal Volume 460 Setting Ventilator Tidal Volume 460 Setting Ventilator Tidal Volume 460 Setting Ventilator Tidal Volume 460 Setting Ventilator Tidal Volume 460 Setting Ventilator Tidal Volume 460 Setting Ventilator Tidal Volume 460 Setting Ventilator Tidal Volume 460 Setting Ventilator Respiratory Rate 16 Setting Ventilator Respiratory Rate 16 Setting Ventilator Respiratory Rate 16 Setting Ventilator Respiratory Rate 16 Setting Ventilator Respiratory Rate 16 Setting Ventilator Respiratory Rate 16 Setting Ventilator Respiratory Rate 16 Setting Ventilator Respiratory Rate 16 Setting Ventilator Respiratory Rate 16 Setting Ventilator Respiratory Rate 16 Setting Ventilator Respiratory Rate 16 Setting Ventilator Respiratory Rate 16 Setting Actual Respiratory Rate 17 Actual Respiratory Rate 17 Actual Respiratory Rate 17 Actual Respiratory Rate 18 Actual Respiratory Rate 17 Actual Respiratory Rate 17 Actual Respiratory Rate 24 Actual Respiratory Rate 16 Actual Respiratory Rate 17 Actual Respiratory Rate 16 Actual Respiratory Rate 20 Actual Respiratory Rate 19 Positive End Expiratory 5 Pressure Positive End Expiratory 5 Pressure Positive End Expiratory 5 Pressure Positive End Expiratory 5 Pressure Positive End Expiratory 5 Pressure Positive End Expiratory 5 Pressure Positive End Expiratory 5 Pressure Positive End Expiratory 5 Pressure Positive End Expiratory 5 Pressure Positive End Expiratory 5 Pressure Positive End Expiratory 5 Pressure Positive End Expiratory 5 Pressure Peak Inspiratory Airway 25 Pressure Peak Inspiratory Airway 31 Pressure Peak Inspiratory Airway 36 Pressure Peak Inspiratory Airway 14 Pressure Peak Inspiratory Airway 27 Pressure Results - Laboratory Findings CBC and BMP: 07/11/18 03:40 07/11/18 14:35 ABG ABG pH 7.41 pH Units (7.32-7.45) 07/11/18 05:09 ABG pCO2 46 mmHg (35-45) H 07/11/18 05:09 ABG pO2 62 mmHg (85-104) L 07/11/18 05:09 ABG O2 Saturation 91 % (95-98) L 07/11/18 05:09 PT/INR, D-dimer PT 15.6 Seconds (9.4-12.1) H 07/11/18 09:13 D-Dimer 3465 ng/mLFEU (0-500) H 06/18/18 08:08 Abnormal lab findings: Abnormal lab results RBC 2.35 M/mcL (4.19-5.50) L 07/11/18 03:40 Hgb 7.1 g/dL (12.9-16.9) L 07/11/18 03:40 Hct 23.0 % (37.5-50.1) L 07/11/18 03:40 MCHC 30.9 g/dL (31.6-35.5) L 07/11/18 03:40 RDW 15.4 % (11.5-14.5) H 07/11/18 03:40 Band Neutrophils % 6.0 % (0-4) H 06/27/18 03:00 Metamyelocytes % 2.0 % (0) H 06/27/18 03:00 Myelocytes % 6.0 % (0) H 06/27/18 03:00 Nucleated RBCs/100 WBC 0.1 /100 WBC (0) H 06/28/18 03:30 Reactive Lymphocytes Present (Not Present) A 07/01/18 03:00 Toxic Granulation Present (Not Present) A 06/18/18 03:05 Toxic Vacuolation Present (Not Present) A 06/22/18 03:45 Large Platelets Present (Not Present) A 06/23/18 03:15 Polychromasia 1+ (Not Present) A 06/27/18 03:00 Basophilic Stippling 1+ (Not Present) A 06/26/18 04:00 Anisocytosis 1+ (Not Present) A 06/28/18 03:30 Macrocytosis Present (Not Present) A 06/26/18 04:00 PT 15.6 Seconds (9.4-12.1) H 07/11/18 09:13 Fibrinogen 578 mg/dL (169-393) H 06/18/18 08:08 D-Dimer 3465 ng/mLFEU (0-500) H 06/18/18 08:08 ABG pCO2 46 mmHg (35-45) H 07/11/18 05:09 ABG pO2 62 mmHg (85-104) L 07/11/18 05:09 ABG HCO3 29 mEq/L (21-27) H 07/11/18 05:09 ABG Total CO2 30 mEq/L (20-26) H 07/11/18 05:09 ABG O2 Saturation 91 % (95-98) L 07/11/18 05:09 ABG Base Excess 4 mEq/L (-2 to 3) H 07/11/18 05:09 Sodium 152 mEq/L (136-145) H 07/11/18 14:35 Chloride 118 mEq/L (98-107) H 07/11/18 14:35 BUN 44 mg/dL (6-20) H 07/11/18 14:35 Creatinine 1.91 mg/dL (0.70-1.30) H 07/11/18 14:35 Est GFR ( Amer) 45 (> 60) L 07/11/18 14:35 Est GFR (Non-Af Amer) 37 (> 60) L 07/11/18 14:35 Glucose 141 mg/dL (70-105) H 07/11/18 14:35 POC Glucose 157 mg/dL (70-99) H 07/11/18 18:47 Serum Osmolality 310 mOsm/kg (280-300) H 07/10/18 08:30 Calculated Osmolality 328 (280-300) H 07/11/18 14:35 Venous Ioniz Calcium 1.13 mmol/L (1.15-1.35) L 07/01/18 03:39 Iron < 10 mcg/dL (65-175) L 07/01/18 03:00 Transferrin 146 mg/dL (203-362) L 07/01/18 03:00 Ferritin 647 ng/mL (20-250) H 07/01/18 03:00 Direct Bilirubin 0.4 mg/dL (0.0-0.2) H 06/23/18 03:15 Troponin I 0.92 ng/mL (< 0.04) H* 06/17/18 22:33 Serum Total Protein 6.3 g/dL (6.4-8.9) L 07/06/18 04:00 Albumin 2.6 g/dL (3.5-5.7) L 07/06/18 04:00 Globulin 3.7 g/dL (2.4-3.5) H 07/06/18 04:00 Albumin/Globulin Ratio 0.7 (1.1-2.2) L 07/06/18 04:00 Amylase 20 Units/L (29-103) L 06/23/18 16:27 Folate 2.5 ng/mL (3.0-16.0) L 06/27/18 11:25 Procalcitonin 107.11 ng/mL (<=0.07) H 06/17/18 16:40 TSH 7.234 mcIU/mL (0.340-5.600) H 06/27/18 11:25 Urine Protein 30 mg/dL (Neg-Trace) H 07/11/18 05:22 Urine Blood Large (Negative) H 07/11/18 05:22 Ur Leukocyte Esterase Small (Negative) H 07/11/18 05:22 Urine Microscopic WBC 5-15 per hpf (0-3) H 07/11/18 05:22 Ur Squamous Epith Cells Many per lpf (None-Few) H 07/11/18 05:22 Ur Culture Indicated? NO. (NO) A 07/11/18 05:22 Urine Osmolality 287 mOsm/kg (300-1090) L 07/10/18 08:30 Protein/Creatinin Ratio 1.68 mg/mg (0.00-0.20) H 06/30/18 09:34 Urine Total Protein 52 mg/dL (1-14) H 06/30/18 09:34 Vancomycin Trough 19 mcg/mL (5-10) H 07/05/18 04:00 Urine Opiates Screen Positive ng/mL (Kigjpw=004) H 06/18/18 10:37 U Benzodiazepines Scrn Positive ng/mL (Azhrfj=521) H 06/18/18 10:37 HSV I DETECTED (Not Detect) A 06/24/18 15:10 - Microbiology Findings Microbiology Findings: Microbiology, Last 48 Hours 07/11/18 05:11 Blood Culture - Preliminary Peripheral Venipuncture Culture is incubating and being continuously monitored for growth. Final report to follow. 07/11/18 05:20 Blood Culture - Preliminary Central Venous Catheter Culture is incubating and being continuously monitored for growth. Final report to follow. - Clinical Findings Intake & Output: Intake & Output 07/11/18 07/11/18 07/11/18 07:59 15:59 23:59 Intake Total 807 / 807 599.5 / 599.5 330 / 330 Output Total 1200 / 1200 1050 / 1050 1200 / 1200 Balance -393 / -393 -450.5 / -450.5 -870 / -870 - VTE Documentation of Mechanical Device: Intermittent pneumatic compression device Consult Discharge Plan - Plan Referrals: Sheryl Stahl, CARAMEL CUTTER MACHINE [Primary Care Provider] -
[2018-07-12] MEDS: Artificial Tears SOLN 15 ML BOTTLE BOTH EYES SCH ×7 (00:43→23:13)
[2018-07-12] MEDS: FentaNYL (PF) 2,500 MCG in EMPTY BAG 1 EACH IVC SCH ×3 (01:50→23:39)
[2018-07-12] MEDS: Dexmedetomidine HCl 400 MCG/100 ML MLS IVC SCH ×5 (01:51→22:06)
[2018-07-12 03:22] LABS: VBG Ionized Calcium 1.32 mmol/L (1.15-1.35)
[2018-07-12 03:23] LABS: Basophils % 0.4 %; Eosinophils # 0.6 K/mcL (0.0-0.6); Eosinophils % 7.6 %; Hematocrit 24.7 % (37.5-50.1); Hemoglobin 7.6 g/dL (12.9-16.9); Immature Granulocytes % 1.7 % (0-4); Lymphocytes # 1.9 K/mcL (0.6-4.6); Lymphocytes % 22.1 %; Mean Corpuscular HGB Conc 30.8 g/dL (31.6-35.5); Mean Corpuscular Hemoglobin 31.8 pg (28.0-33.3); Mean Corpuscular Volume 103.3 fL (83.0-100.0); Mean Platelet Volume 11.9 fL (9.4-12.4); Monocytes # 0.8 K/mcL (0.0-1.3); Monocytes % 9.5 %; Platelet Count 182 K/mcL (140-400); Red Blood Count 2.39 M/mcL (4.19-5.50); Red Cell Distribution Width 15.9 % (11.5-14.5); Segmented Neutrophils % 58.7 %
[2018-07-12] MEDS: Piperacillin/Tazobactam 3.375 GM in 0.9 % Sodium Chloride Mini Bag 100 ML IVPB SCH ×3 (03:25→19:41)
[2018-07-12 03:44] LABS: Albumin 2.7 g/dL (3.5-5.7); Albumin/Globulin Ratio 0.7 (1.1-2.2); Bilirubin,Total 0.5 mg/dL (0.3-1.0); Calcium 9.3 mg/dL (8.6-10.3); Magnesium 1.9 mg/dL (1.6-2.6); Phosphorous 4.2 mg/dL (2.7-4.5); Potassium 4.5 mEq/L (3.5-5.1); Total Protein 6.7 g/dL (6.4-8.9)
[2018-07-12] MEDS: *HR* Heparin 5,000 UNIT/ML VIAL SQ SCH ×2 (05:13→19:19)
[2018-07-12 05:18] LABS: ABG Base Excess 5 mEq/L (-2 to 3); ABG HCO3 31 mEq/L (21-27); ABG Oxygen Saturation 93 % (95-98); ABG PCO2 52 mmHg (35-45); ABG PH 7.38 pH Units (7.32-7.45); ABG PO2 68 mmHg (85-104); ABG TCO2 32 mEq/L (20-26); Blood Gas Modality ASSIST CONTROL; Blood Gas PEEP 5 cm H2O; Blood Gas Respiration Rate 16; Blood Gas VT 460 cc
[2018-07-12] MEDS: D5% in Water 1,000 ML IVC SCH ×3 (05:34→21:47)
[2018-07-12] MEDS: Pantoprazole 40 MG VIAL IVP SCH (07:59)
[2018-07-12] MEDS: Nystatin SUSP 5 ML UD.LIQ PO SCH ×4 (07:59→19:41)
[2018-07-12] MEDS: Potassium Chloride Elixir 20 MEQ/15 ML UDC PO SCH ×2 (07:59→08:24)
[2018-07-12] MEDS: Chlorhexidine Rinse 15 ML MOUTHWASH MM SCH ×2 (07:59→19:41)
[2018-07-12] MEDS: Desmopressin 2 MCG in 0.9 % Sodium Chloride 50 ML IVPB SCH (08:47)
--- NOTE | 2018-07-12 09:39 | Nephrology Progress Note ---
Date of Encounter: 07/12/18 Time of Encounter: 09:39 - Assessment and Plan (1) Hypernatremia Current Visit: Yes Status: Acute Increase Ddavp to 4mcg daily. (2) Acute respiratory failure with hypoxemia Current Visit: Yes Status: Acute Per critical acre team (3) LUCILA (acute kidney injury) Current Visit: Yes Status: Acute Patient is no longer on dialysis and continue to avoid nephrotoxins and adjust medications as needed no acute indication for dialysis. (4) Anemia Current Visit: Yes Status: Acute Hgb noted will monitor Qualifiers: Anemia type: iron deficiency Iron deficiency anemia type: unspecified iron deficiency Qualified Code(s): D50.9 - Iron deficiency anemia, unspecified Subjective Principal diagnosis: septic shock Interval history: Patient seen on CRRT. He is intubated and sedated ROS is unobtainable. Objective - Vital Signs Vital signs: Vital Signs Temp Pulse Resp BP Pulse Ox 07/12/18 09:00 109 20 130/76 95 07/12/18 08:00 101.0 F H 96 23 115/64 95 07/12/18 07:43 26 129/87 95 07/12/18 07:00 112 22 106/65 93 07/12/18 06:38 16 109/67 94 07/12/18 06:04 75 19 111/71 95 07/12/18 05:12 84 22 106/64 94 07/12/18 04:32 21 109/64 92 07/12/18 04:00 81 17 109/64 93 07/12/18 03:37 21 109/64 92 07/12/18 03:01 98.2 F 85 17 92/58 96 07/12/18 02:29 19 99/60 93 07/12/18 02:00 73 17 92/58 96 07/12/18 01:00 67 17 96/63 95 07/12/18 00:00 67 17 96/63 95 07/11/18 23:43 16 103/61 95 07/11/18 23:00 99.1 F 89 18 101/66 95 07/11/18 22:00 87 18 101/66 95 07/11/18 21:01 70 19 101/58 95 07/11/18 20:40 17 87/56 98 07/11/18 20:10 70 19 101/58 95 07/11/18 19:00 99.7 F H 93 24 115/70 98 07/11/18 18:00 90 24 110/73 98 07/11/18 17:04 18 85/58 96 07/11/18 17:00 75 17 85/58 98 07/11/18 16:00 70 17 92/58 96 07/11/18 15:52 75 07/11/18 15:09 24 85/54 94 07/11/18 15:00 98.4 F 75 16 85/54 94 07/11/18 14:00 113 17 123/59 92 07/11/18 13:05 16 123/59 100 07/11/18 13:00 76 20 90/60 100 07/11/18 12:00 71 19 91/54 93 07/11/18 11:30 20 91/56 94 07/11/18 11:00 100.6 F H 75 16 98/62 95 07/11/18 10:00 70 20 91/56 93 Intake and Output 07/11/18 07/12/18 07/12/18 23:59 07:59 15:59 Intake Total 550 / 550 466 / 466 Output Total 1700 / 1700 500 / 500 675 / 675 Balance -1150 / -1150 -34 / -34 -675 / -675 Intake: IV Fluids 550 / 550 466 / 466 PRECEDEX Premix 400 mcg In 100 200 / 200 200 / 200 ml @ 0.2 MCG/KG/HR 5.45 mls/hr IVC .[id number] NADIA Rx#:[id number] FentaNYL (PF) 2,500 MCG In 50 / 50 Empty Bag 1 Each @ 50 MCG/HR 1 mls/hr IVC CONT NADIA Rx#: [id number] HumuLIN R 100 UNIT In 0.9 % 66 / 66 Sodium Chloride 100 ML @ Per Protocol IVC CONT NADIA Rx#: [id number] Diprivan 1,000 mg In 100 ml @ 5 100 / 100 100 / 100 MCG/KG/MIN 3.345 mls/hr IVC . Q24H NADIA Rx#:[id number] Zosyn 3.375 GM In 0.9 % Sodium 200 / 200 100 / 100 Chloride (Mini-Bag +) 100 ML @ 25 mls/hr IVPB Q8H NADIA Rx#: [id number] Output: Catheter 1700 / 1700 500 / 500 675 / 675 Other: Blood Glucose* 154 145 - General Appearance General appearance: Present: well-developed, well-nourished, intubated EENT: Present: ATNC Neck: Present: supple Respiratory: Present: course breath sounds Cardiology: Present: edema Integumentary: Present: warm and dry - Lab 07/12/18 03:00 07/12/18 14:00 Most recent lab results ABG pH 7.38 pH Units (7.32-7.45) 07/12/18 05:14 ABG pCO2 52 mmHg (35-45) H 07/12/18 05:14 ABG pO2 68 mmHg (85-104) L 07/12/18 05:14 ABG HCO3 31 mEq/L (21-27) H 07/12/18 05:14 ABG O2 Saturation 93 % (95-98) L 07/12/18 05:14 Calcium 9.3 mg/dL (8.6-10.3) 07/12/18 03:00 Phosphorus 4.2 mg/dL (2.7-4.5) 07/12/18 03:00 Magnesium 1.9 mg/dL (1.6-2.6) 07/12/18 03:00 Urine Creatinine 31 mg/dL 06/30/18 09:34 Urine Sodium 57.9 mEq/L 07/10/18 08:30 Urine Total Protein 52 mg/dL (1-14) H 06/30/18 09:34 - VTE Documentation of Mechanical Device: Intermittent pneumatic compression device Consult Discharge Plan - Plan Referrals: Sheryl Stahl DIRECTOR OF DANCE [Primary Care Provider] -
[2018-07-12] MEDS ORDERED: Desmopressin 2 MCG in 0.9 % Sodium Chloride 50 ML IVPB ONE (10:30)
[2018-07-12] MEDS: Norepinephrine 4 MG in D5% in Water 250 ML IVC SCH (12:09)
[2018-07-12] MEDS: Insulin LISPRO 300 UNITS/3 ML VIAL SQ SCH ×4 (12:25→23:53)
--- NOTE | 2018-07-12 12:31 | Pulmonology Progress Note ---
Date of Encounter: 07/12/18 Time of Encounter: 10:30 Assessment and Plan (1) Acute respiratory failure with hypoxemia Current Visit: Yes Status: Acute Patient has prolonged mechanical ventilation for more than 24 days tried smart care for almost 4 days he failed the spontaneous breathing trial with pressure support even. The reason for this repeated failing liberated from ventricular ventilator most likely due to critical illness myopathy and polyneuropathy on top of that. tracheostomy which will help in this liberation. 07/12 Patient had his percutaneous tracheostomy yesterday tried smart care (2) Septic shock Current Visit: Yes Status: Acute Patient has septic shock secondary to pneumonia but now looks like shock is resolved. Patient has adequate source control . To descalate antibiotics according to ID (3) Systolic heart failure Current Visit: Yes Status: Deleted Patient is hemodynamically stable , Patient is diuresing well complicated by Diabetes insipidus Qualifiers: Heart failure chronicity: acute on chronic Qualified Code(s): I50.23 - Acute on chronic systolic (congestive) heart failure (4) LUCILA (acute kidney injury) Current Visit: Yes Status: Acute Patient had many settings of dialysis during initial hospital stay. Nephrology following. Patient renal function is getting better. (5) Type 2 diabetes mellitus Current Visit: Yes Status: Chronic Patient blood sugars decent control. Qualifiers: Diabetes mellitus integration specialist insulin use: with penitentiary use Diabetes mellitus complication status: with unspecified complications Qualified Code(s) : E11.8 - Type 2 diabetes mellitus with unspecified complications; Z79.4 - FPC (current) use of insulin (6) DVT prophylaxis Current Visit: Yes Status: Acute To continue thromboprophylaxis. (7) Diabetes insipidus Current Visit: Yes Status: Acute Patient is on regular DDAVP to monitor sodium closely. (8) COPD (chronic obstructive pulmonary disease) Current Visit: Yes Status: Chronic As acceptable oxygenation and ventilation patient had the percutaneous tracheostomy patient has acceptable oxygenation and ventilation Qualifiers: COPD type: emphysema Emphysema type: unspecified Qualified Code(s): J43.9 - Emphysema, unspecified Subjective Principal diagnosis: septic shock Interval history: 52 year old male has pneumonia and he has had a prolonged recovery time almost 24 days on mechanical ventilation. 07/12 Patient had his percutaneous tracheostomy yesterday doing well tired SBT tolerated smart care for a while. Objective PUL Vital signs: Last Vital Signs Temp 101.0 F H 09/15/18 08:00 Pulse 86 07/12/18 11:00 Resp 18 07/12/18 11:53 BP 107/68 07/12/18 11:53 Pulse Ox 96 07/12/18 11:53 General appearance: other (Patient is arousable to commands ) Effort: mildly labored Auscultation: bilateral: diminished breath sounds (bilateral diminshed breadth sounds ) Gastrointestinal: hypoactive bowel sounds, other (mild distension) Extremities: edema Ventilator Settings Ventilator Settings: Ventilator Settings, Last 8 Hours Ventilator Tidal Volume 460 Setting Ventilator Tidal Volume 460 Setting Ventilator Tidal Volume 450 Setting Ventilator Tidal Volume 460 Setting Ventilator Tidal Volume 460 Setting Ventilator Tidal Volume 460 Setting Ventilator Tidal Volume 460 Setting Ventilator Tidal Volume 460 Setting Ventilator Tidal Volume 460 Setting Ventilator Tidal Volume 460 Setting Ventilator Respiratory Rate 14 Setting Ventilator Respiratory Rate 14 Setting Ventilator Respiratory Rate 14 Setting Ventilator Respiratory Rate 16 Setting Ventilator Respiratory Rate 14 Setting Ventilator Respiratory Rate 16 Setting Ventilator Respiratory Rate 16 Setting Ventilator Respiratory Rate 16 Setting Ventilator Respiratory Rate 16 Setting Actual Respiratory Rate 20 Actual Respiratory Rate 16 Actual Respiratory Rate 17 Actual Respiratory Rate 28 Actual Respiratory Rate 25 Actual Respiratory Rate 23 Actual Respiratory Rate 24 Actual Respiratory Rate 22 Actual Respiratory Rate 17 Actual Respiratory Rate 21 Actual Respiratory Rate 21 Positive End Expiratory 5 Pressure Positive End Expiratory 5 Pressure Positive End Expiratory 5 Pressure Positive End Expiratory 5 Pressure Positive End Expiratory 5 Pressure Positive End Expiratory 5 Pressure Positive End Expiratory 5 Pressure Positive End Expiratory 5 Pressure Positive End Expiratory 5 Pressure Positive End Expiratory 5 Pressure Peak Inspiratory Airway 25 Pressure Peak Inspiratory Airway 29 Pressure Peak Inspiratory Airway 20 Pressure Peak Inspiratory Airway 27 Pressure Peak Inspiratory Airway 31 Pressure Peak Inspiratory Airway 25 Pressure Peak Inspiratory Airway 28 Pressure Peak Inspiratory Airway 15 Pressure Peak Inspiratory Airway 15 Pressure Results - Laboratory Findings CBC and BMP: 07/12/18 03:00 07/12/18 14:00 ABG ABG pH 7.38 pH Units (7.32-7.45) 07/12/18 05:14 ABG pCO2 52 mmHg (35-45) H 07/12/18 05:14 ABG pO2 68 mmHg (85-104) L 07/12/18 05:14 ABG O2 Saturation 93 % (95-98) L 07/12/18 05:14 PT/INR, D-dimer PT 15.6 Seconds (9.4-12.1) H 07/11/18 09:13 D-Dimer 3465 ng/mLFEU (0-500) H 06/18/18 08:08 Abnormal lab findings: Abnormal lab results RBC 2.39 M/mcL (4.19-5.50) L 07/12/18 03:00 Hgb 7.6 g/dL (12.9-16.9) L 07/12/18 03:00 Hct 24.7 % (37.5-50.1) L 07/12/18 03:00 MCV 103.3 fL (83.0-100.0) H 07/12/18 03:00 MCHC 30.8 g/dL (31.6-35.5) L 07/12/18 03:00 RDW 15.9 % (11.5-14.5) H 07/12/18 03:00 Band Neutrophils % 6.0 % (0-4) H 06/27/18 03:00 Metamyelocytes % 2.0 % (0) H 06/27/18 03:00 Myelocytes % 6.0 % (0) H 06/27/18 03:00 Nucleated RBCs/100 WBC 0.1 /100 WBC (0) H 06/28/18 03:30 Reactive Lymphocytes Present (Not Present) A 07/01/18 03:00 Toxic Granulation Present (Not Present) A 06/18/18 03:05 Toxic Vacuolation Present (Not Present) A 06/22/18 03:45 Large Platelets Present (Not Present) A 06/23/18 03:15 Polychromasia 1+ (Not Present) A 06/27/18 03:00 Basophilic Stippling 1+ (Not Present) A 06/26/18 04:00 Anisocytosis 1+ (Not Present) A 06/28/18 03:30 Macrocytosis Present (Not Present) A 06/26/18 04:00 PT 15.6 Seconds (9.4-12.1) H 07/11/18 09:13 Fibrinogen 578 mg/dL (169-393) H 06/18/18 08:08 D-Dimer 3465 ng/mLFEU (0-500) H 06/18/18 08:08 ABG pCO2 52 mmHg (35-45) H 07/12/18 05:14 ABG pO2 68 mmHg (85-104) L 07/12/18 05:14 ABG HCO3 31 mEq/L (21-27) H 07/12/18 05:14 ABG Total CO2 32 mEq/L (20-26) H 07/12/18 05:14 ABG O2 Saturation 93 % (95-98) L 07/12/18 05:14 ABG Base Excess 5 mEq/L (-2 to 3) H 07/12/18 05:14 Sodium 151 mEq/L (136-145) H 07/12/18 03:00 Chloride 117 mEq/L (98-107) H 07/12/18 03:00 BUN 45 mg/dL (6-20) H 07/12/18 03:00 Creatinine 1.84 mg/dL (0.70-1.30) H 07/12/18 03:00 Est GFR ( Amer) 47 (> 60) L 07/12/18 03:00 Est GFR (Non-Af Amer) 39 (> 60) L 07/12/18 03:00 Glucose 149 mg/dL (70-105) H 07/12/18 03:00 POC Glucose 143 mg/dL (70-99) H 07/12/18 11:57 Serum Osmolality 310 mOsm/kg (280-300) H 07/10/18 08:30 Calculated Osmolality 326 (280-300) H 07/12/18 03:00 Iron < 10 mcg/dL (65-175) L 07/01/18 03:00 Transferrin 146 mg/dL (203-362) L 07/01/18 03:00 Ferritin 647 ng/mL (20-250) H 07/01/18 03:00 Direct Bilirubin 0.4 mg/dL (0.0-0.2) H 06/23/18 03:15 Troponin I 0.92 ng/mL (< 0.04) H* 06/17/18 22:33 Albumin 2.7 g/dL (3.5-5.7) L 07/12/18 03:00 Globulin 4.0 g/dL (2.4-3.5) H 07/12/18 03:00 Albumin/Globulin Ratio 0.7 (1.1-2.2) L 07/12/18 03:00 Amylase 20 Units/L (29-103) L 06/23/18 16:27 Folate 2.5 ng/mL (3.0-16.0) L 06/27/18 11:25 Procalcitonin 107.11 ng/mL (<=0.07) H 06/17/18 16:40 TSH 7.234 mcIU/mL (0.340-5.600) H 06/27/18 11:25 Urine Protein 30 mg/dL (Neg-Trace) H 07/11/18 05:22 Urine Blood Large (Negative) H 07/11/18 05:22 Ur Leukocyte Esterase Small (Negative) H 07/11/18 05:22 Urine Microscopic WBC 5-15 per hpf (0-3) H 07/11/18 05:22 Ur Squamous Epith Cells Many per lpf (None-Few) H 07/11/18 05:22 Ur Culture Indicated? NO. (NO) A 07/11/18 05:22 Urine Osmolality 287 mOsm/kg (300-1090) L 07/10/18 08:30 Protein/Creatinin Ratio 1.68 mg/mg (0.00-0.20) H 06/30/18 09:34 Urine Total Protein 52 mg/dL (1-14) H 06/30/18 09:34 Vancomycin Trough 19 mcg/mL (5-10) H 07/05/18 04:00 Urine Opiates Screen Positive ng/mL (Dgpcqf=631) H 06/18/18 10:37 U Benzodiazepines Scrn Positive ng/mL (Qyixkv=251) H 06/18/18 10:37 HSV I DETECTED (Not Detect) A 06/24/18 15:10 - Microbiology Findings Microbiology Findings: Microbiology, Last 48 Hours 07/11/18 05:11 Blood Culture - Preliminary Peripheral Venipuncture Culture is incubating and being continuously monitored for growth. Final report to follow. 07/11/18 05:20 Blood Culture - Preliminary Central Venous Catheter Culture is incubating and being continuously monitored for growth. Final report to follow. - Clinical Findings Intake & Output: Intake & Output 07/11/18 07/12/18 07/12/18 23:59 07:59 15:59 Intake Total 550 / 550 466 / 466 100 / 100 Output Total 1700 / 1700 500 / 500 675 / 675 Balance -1150 / -1150 -34 / -34 -575 / -575 - VTE Documentation of Mechanical Device: Intermittent pneumatic compression device Consult Discharge Plan - Plan Referrals: Sheryl Stahl, [employer] OPERATOR [Primary Care Provider] -
[2018-07-12] MEDS ORDERED: Tetracaine/Benzocaine/Butamben 200MG/SPRAY (100SPY/BOT) MM ONE (16:00)
[2018-07-12] MEDS ORDERED: *HR* FentaNYL (PF) 100 MCG/2 ML VIAL IVP ONE (16:00)
[2018-07-12] MEDS ORDERED: Simethicone 40 MG/0.6 ML MLS IR ONE (16:00)
--- NOTE | 2018-07-12 16:03 | Pre-Sedation Evaluation ---
Pre-sedation evaluation - Pre-sedation checklist Date of procedure: 06/27/18 Procedure: EGD/PEG Recent Vitals: Last Vital Signs Temp 100.1 F H 07/12/18 12:00 Pulse 95 07/12/18 15:00 Resp 21 07/12/18 15:39 BP 126/73 07/12/18 15:39 Pulse Ox 94 07/12/18 15:39 H&P (including ROS) documented in medical record: Yes Dietary Status: NPO after Midnight Dentition: No loose teeth or bridges Possible difficult airway: No ASA Classification *see protocol: CLASS III-Severe systemic disease Plan of Care: Pt appropriate candidate for procedure/moderate/conscious sedation , Risks/benefits of procedure/sedation discussed w/ patient/family (Patient with tracheostomy - surgical airway secure), If not NPO; Risk of intake outweiged by necessity to perform procedure Cardiac Registry (Cardio Only) - Functional Capacity - Clincal Frailty Scale
--- NOTE | 2018-07-12 16:53 | General Surgery Consult Note ---
Date of Encounter: 07/12/18 Time of Encounter: 14:45 History of Present Illness Consult date: 07/12/18 Requesting physician: Kacy Heath History of present illness: 52-year-old male admitted to [facility] 06/17/18 after presenting to the [facility] with pneumonia and septic shock. He was intubated on presentation and subsequent transfer to [facility] for continued care and management. The patient has had a prolonged/stormy hospital course continued sepsis, acute kidney injury, and respiratory failure along with acute on chronic systolic congestive heart failure. A tracheostomy was recently placed. Surgery /GI coverage was consult for percutaneous gastrostomy tube placement. The patient is intubated, sedated with multiple agents and only minimally responsive to verbal stimulus. I discussed this patient's continued care with his . The EGD/PEG was discussed in detail. Risks include hemorrhage, aspiration, infection, gastric perforation with peritonitis, injury to adjacent structures, and malposition of the gastrostomy tube. Consent for the EGD/PEG was ultimately obtained from the patient's . Past medical history notable for asthma, COPD, gastroesophageal reflux disease, hypertension, chronic back pain, anxiety, depression. The patient is a recovered alcoholic - considerable alcohol use is noted in the remote past The patient is described as a former smoker hours indicates that he has smoked 2 packs per day since his early teens (estimated 01-50-ktji-year history More recent medical history notable for diabetes, acute kidney injury, hypercapnia, hypoxemia, elevated troponins; prolonged sepsis Allergies: Sulfa. To my examination: Sedated age-appropriate male somewhat restless in his hospital bed. Unresponsive to verbal stimulus. Withdraws to painful stimulus Skin: Warm, no obvious jaundice Lungs: Clear; upper airway rales consistent with condensation within the tracheostomy and ventilator tubing Abdomen: No obvious surgical scars. Soft, no obvious tenderness, no detected intra-abdominal masses. Extremities: No obvious clubbing, cyanosis, or edema. Impression: A 52-year-old male with prolonged septic shock, respiratory failure currently sedated on mechanical ventilation via tracheostomy. EGD/PEG requested for enteral nutrition. This can be accomplished at bedside using IV medications (the current sedation being administered) The procedure was discussed in detail as were the risks. Surgical consent has been obtained from the patient's Plan: EGD/PEG Dietary has been notified and has provided orders to begin nutrition in the a.m. Past Med Surg Social Fam HX - Past Medical History Medical history: asthma, COPD, GERD, hypertension, other Additional medical history: back problems Psychiatric history: anxiety, depression - Social History Smoking Status: Former smoker Smokeless Tobacco Status: No Alcohol use: none Drug use: none Medications and Allergies Ipratropium/Albuterol Sulfate [Combivent Respimat Inhal Colony] 4 gm IH DAILY [History] Albuterol Sulfate [Proair Hfa] 2 puff IH Q4HR PRN 06/17/18 [History] Aspirin Enteric Coated [Aspirin EC] 81 mg PO DAILY 06/17/18 [History] Carvedilol [Carvedilol] 3.125 mg PO BID 06/17/18 [History] Citalopram [CeleXA] 20 mg PO DAILY 06/17/18 [History] Fluticasone Propionate Nasal [Flonase] 1 puff NS DAILY 06/17/18 [History] Fluticasone/Vilanterol [Breo Ellipta 200-25 Mcg INH] 1 each IH DAILY 06/17/18 [ History] Furosemide [Lasix] 40 mg PO BID 06/17/18 [History] Gabapentin [Neurontin] 800 mg PO QID 06/17/18 [History] Insulin Glargine,Hum.rec.anlog [Basaglar Kwikpen U-100] 40 unit SQ BID 06/17/18 [History] Losartan/Hydrochlorothiazide [Losartan-Hctz 100-25 mg Tab] 1 tab PO DAILY [History] Metoprolol [Lopressor] 25 mg PO BID 06/17/18 [History] Montelukast [Singulair] 10 mg PO HS 06/17/18 [History] OxyCODONE/APAP 10/325 [Percocet 10/325 MG] 1 tab PO TID 06/17/18 [History] Pantoprazole Sodium 40 mg PO DAILY 06/17/18 [History] Potassium Chloride [K-Tab ER] 20 meq PO DAILY 06/17/18 [History] Pravastatin Sodium [Pravachol] 40 mg PO DAILY 06/17/18 [History] 3 Allergy/AdvReac Type Severity Reaction Status Date / Time Sulfa (Sulfonamide Allergy Rash Verified 01/28/16 21:39 Antibiotics) Review of Systems All systems PM: The remainder of the systems were reviewed and are negative General Surgery Exam Initial Vital Signs Temp Pulse Resp BP Pulse Ox 101.4 F H 101 16 68/38 95 06/17/18 09:02 06/17/18 09:02 06/17/18 09:02 06/17/18 09:02 06/17/18 09:02 Exam Initial Vital Signs Temp Pulse Resp BP Pulse Ox 101.4 F H 101 16 68/38 95 06/17/18 09:02 06/17/18 09:02 06/17/18 09:02 06/17/18 09:02 06/17/18 09:02 Results - Labs 07/12/18 03:00 07/12/18 03:00 Abnormal lab results RBC 2.39 M/mcL (4.19-5.50) L 07/12/18 03:00 Hgb 7.6 g/dL (12.9-16.9) L 07/12/18 03:00 Hct 24.7 % (37.5-50.1) L 07/12/18 03:00 MCV 103.3 fL (83.0-100.0) H 07/12/18 03:00 MCHC 30.8 g/dL (31.6-35.5) L 07/12/18 03:00 RDW 15.9 % (11.5-14.5) H 07/12/18 03:00 Band Neutrophils % 6.0 % (0-4) H 06/27/18 03:00 Metamyelocytes % 2.0 % (0) H 06/27/18 03:00 Myelocytes % 6.0 % (0) H 06/27/18 03:00 Nucleated RBCs/100 WBC 0.1 /100 WBC (0) H 06/28/18 03:30 Reactive Lymphocytes Present (Not Present) A 07/01/18 03:00 Toxic Granulation Present (Not Present) A 06/18/18 03:05 Toxic Vacuolation Present (Not Present) A 06/22/18 03:45 Large Platelets Present (Not Present) A 06/23/18 03:15 Polychromasia 1+ (Not Present) A 06/27/18 03:00 Basophilic Stippling 1+ (Not Present) A 06/26/18 04:00 Anisocytosis 1+ (Not Present) A 06/28/18 03:30 Macrocytosis Present (Not Present) A 06/26/18 04:00 PT 15.6 Seconds (9.4-12.1) H 07/11/18 09:13 Fibrinogen 578 mg/dL (169-393) H 06/18/18 08:08 D-Dimer 3465 ng/mLFEU (0-500) H 06/18/18 08:08 ABG pCO2 52 mmHg (35-45) H 07/12/18 05:14 ABG pO2 68 mmHg (85-104) L 07/12/18 05:14 ABG HCO3 31 mEq/L (21-27) H 07/12/18 05:14 ABG Total CO2 32 mEq/L (20-26) H 07/12/18 05:14 ABG O2 Saturation 93 % (95-98) L 07/12/18 05:14 ABG Base Excess 5 mEq/L (-2 to 3) H 07/12/18 05:14 Sodium 151 mEq/L (136-145) H 07/12/18 03:00 Chloride 117 mEq/L (98-107) H 07/12/18 03:00 BUN 45 mg/dL (6-20) H 07/12/18 03:00 Creatinine 1.84 mg/dL (0.70-1.30) H 07/12/18 03:00 Est GFR ( Amer) 47 (> 60) L 07/12/18 03:00 Est GFR (Non-Af Amer) 39 (> 60) L 07/12/18 03:00 Glucose 149 mg/dL (70-105) H 07/12/18 03:00 POC Glucose 143 mg/dL (70-99) H 07/12/18 11:57 Serum Osmolality 310 mOsm/kg (280-300) H 07/10/18 08:30 Calculated Osmolality 326 (280-300) H 07/12/18 03:00 Iron < 10 mcg/dL (65-175) L 07/01/18 03:00 Transferrin 146 mg/dL (203-362) L 07/01/18 03:00 Ferritin 647 ng/mL (20-250) H 07/01/18 03:00 Direct Bilirubin 0.4 mg/dL (0.0-0.2) H 06/23/18 03:15 Troponin I 0.92 ng/mL (< 0.04) H* 06/17/18 22:33 Albumin 2.7 g/dL (3.5-5.7) L 07/12/18 03:00 Globulin 4.0 g/dL (2.4-3.5) H 07/12/18 03:00 Albumin/Globulin Ratio 0.7 (1.1-2.2) L 07/12/18 03:00 Amylase 20 Units/L (29-103) L 06/23/18 16:27 Folate 2.5 ng/mL (3.0-16.0) L 06/27/18 11:25 Procalcitonin 107.11 ng/mL (<=0.07) H 06/17/18 16:40 TSH 7.234 mcIU/mL (0.340-5.600) H 06/27/18 11:25 Urine Protein 30 mg/dL (Neg-Trace) H 07/11/18 05:22 Urine Blood Large (Negative) H 07/11/18 05:22 Ur Leukocyte Esterase Small (Negative) H 07/11/18 05:22 Urine Microscopic WBC 5-15 per hpf (0-3) H 07/11/18 05:22 Ur Squamous Epith Cells Many per lpf (None-Few) H 07/11/18 05:22 Ur Culture Indicated? NO. (NO) A 07/11/18 05:22 Urine Osmolality 287 mOsm/kg (300-1090) L 07/10/18 08:30 Protein/Creatinin Ratio 1.68 mg/mg (0.00-0.20) H 06/30/18 09:34 Urine Total Protein 52 mg/dL (1-14) H 06/30/18 09:34 Vancomycin Trough 19 mcg/mL (5-10) H 07/05/18 04:00 Urine Opiates Screen Positive ng/mL (Oivipc=929) H 06/18/18 10:37 U Benzodiazepines Scrn Positive ng/mL (Bzssng=720) H 06/18/18 10:37 HSV I DETECTED (Not Detect) A 06/24/18 15:10 Diabetes panel 07/12/18 Range/Units 03:00 Sodium 151 H (136-145) mEq/L Potassium 4.5 (3.5-5.1) mEq/L Chloride 117 H (98-107) mEq/L Carbon Dioxide 26 (23-29) mEq/L BUN 45 H (6-20) mg/dL Creatinine 1.84 H (0.70-1.30) mg/dL Glucose 149 H (70-105) mg/dL Calcium 9.3 (8.6-10.3) mg/dL AST 30 (13-39) Units/L ALT 24 (7-52) Units/L Alkaline Phosphatase 79 (34-104) Units/L Albumin 2.7 L (3.5-5.7) g/dL Calcium panel 07/12/18 Range/Units 03:00 Calcium 9.3 (8.6-10.3) mg/dL Phosphorus 4.2 (2.7-4.5) mg/dL Albumin 2.7 L (3.5-5.7) g/dL Pituitary panel 07/12/18 Range/Units 03:00 Sodium 151 H (136-145) mEq/L Potassium 4.5 (3.5-5.1) mEq/L Chloride 117 H (98-107) mEq/L Carbon Dioxide 26 (23-29) mEq/L BUN 45 H (6-20) mg/dL Creatinine 1.84 H (0.70-1.30) mg/dL Glucose 149 H (70-105) mg/dL Calcium 9.3 (8.6-10.3) mg/dL Adrenal panel 07/12/18 Range/Units 03:00 Sodium 151 H (136-145) mEq/L Potassium 4.5 (3.5-5.1) mEq/L Chloride 117 H (98-107) mEq/L Carbon Dioxide 26 (23-29) mEq/L BUN 45 H (6-20) mg/dL Creatinine 1.84 H (0.70-1.30) mg/dL Glucose 149 H (70-105) mg/dL Calcium 9.3 (8.6-10.3) mg/dL Total Bilirubin 0.5 (0.3-1.0) mg/dL AST 30 (13-39) Units/L ALT 24 (7-52) Units/L Alkaline Phosphatase 79 (34-104) Units/L Albumin 2.7 L (3.5-5.7) g/dL All other labs normal. Consult Discharge Plan - Plan Referrals: Sheryl Stahl, MAGALI [Primary Care Provider] -
[2018-07-12] MEDS: Insulin Human Regular 100 UNIT in 0.9 % Sodium Chloride 100 ML IVC SCH (19:08)
[2018-07-12 19:55] LABS: Calcium 9.3 mg/dL (8.6-10.3); Potassium 4.5 mEq/L (3.5-5.1)
[2018-07-12] MEDS: Insulin DETEMIR 100 UNIT/ML X5UNITS SQ SCH (20:05)
[2018-07-13] MEDS: Piperacillin/Tazobactam 3.375 GM in 0.9 % Sodium Chloride Mini Bag 100 ML IVPB SCH ×3 (03:31→21:04)
[2018-07-13] MEDS: Artificial Tears SOLN 15 ML BOTTLE BOTH EYES SCH ×5 (03:32→21:04)
[2018-07-13] MEDS: Dexmedetomidine HCl 400 MCG/100 ML MLS IVC SCH ×6 (03:34→22:45)
[2018-07-13] MEDS: Insulin LISPRO 300 UNITS/3 ML VIAL SQ SCH ×5 (03:35→21:04)
[2018-07-13] MEDS: D5% in Water 1,000 ML IVC SCH ×3 (05:08→22:46)
[2018-07-13] MEDS: *HR* Heparin 5,000 UNIT/ML VIAL SQ SCH ×2 (05:08→18:40)
--- NOTE | 2018-07-13 07:15 | Pulmonology Progress Note ---
<Bonnie Cummins E - Last Filed: 07/13/18 12:23> Date of Encounter: 07/13/18 Time of Encounter: 07:14 Assessment and Plan (1) Septic shock Current Visit: Yes Status: Acute sepsis suspected secondary to karo fungemia. Acyclovir stopped 07/09/18. Urine shows e.coli on urine culture from 07/01/18. Currently on VAnomycin and Zosyn for e.coli UTI and acinitobacter pneumonia. (2) Acute respiratory failure with hypoxemia Current Visit: Yes Status: Acute Pt had a tracheostomy placed on 07/11/18, stable on ventilator, will continue to monitor respiratory status (3) Pneumonia Current Visit: Yes Status: Suspected Patient on zosyn and vancomysin per ID Sputum culture positive for acinitobacter Qualifiers: Pneumonia type: due to unspecified organism Laterality: bilateral Lung location: lower lobe of lung Qualified Code(s): J18.1 - Lobar pneumonia, unspecified organism (4) Oral lesion Current Visit: Yes Status: Resolved Noted on tongue PCR positive for HSV1 Acyclovir stopped 07/09/18 (5) COPD (chronic obstructive pulmonary disease) Current Visit: Yes Status: Chronic Patient had tracheostomy placed 07/11/18, stable on ventilator, will continue to monitor Qualifiers: COPD type: emphysema Emphysema type: unspecified Qualified Code(s): J43.9 - Emphysema, unspecified (6) LUCILA (acute kidney injury) Current Visit: Yes Status: Acute Nephrology following. Patient on intermittent dialysis. Hypernatremia being managed by 2mg dDAVP daily creatinine is improving (7) Hypocalcemia Current Visit: Yes Status: Resolved Continue to monitor. Calcium is stable today. Replace if necessary (8) Hypernatremia Current Visit: Yes Status: Acute Nephrology on board 2mg dDAVP daily to manage Na+ levels (9) Hypokalemia Current Visit: Yes Status: Resolved Continue to monitor and replace as necessary (10) Encephalopathy Current Visit: Yes Status: Acute Patient was more alert this morning able to follow simple commands, and head when asked if he was feeling a little better today. Acyclovir stopped on 07/09/18 (11) Thrombocytopenia Current Visit: Yes Status: Resolved Platelets have been stable. Continue to monitor. 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 No heparin was in use in the lines which could have caused the excessive clotting on dialysis filter. Also, platelet count could have been decreased do to septic shock. Heparin was restarted, platelets continue to be stable (13) Type 2 diabetes mellitus Current Visit: Yes Status: Chronic 16 units Levamir SQ HS, high dose sliding scale We will continue to monitor Qualifiers: Diabetes mellitus chcf insulin use: with exterminator termite use Diabetes mellitus complication status: with unspecified complications Qualified Code(s) : E11.8 - Type 2 diabetes mellitus with unspecified complications; Z79.4 - shelter (current) use of insulin (14) UTI (urinary tract infection) Current Visit: Yes Status: Acute Urine culture from 07/01/18 grew gram negative brook Currently on vancomycin and zosyn Qualifiers: Urinary tract infection type: site unspecified Hematuria presence: without hematuria Qualified Code(s): N39.0 - Urinary tract infection, site not specified (15) DVT prophylaxis Current Visit: Yes Status: Acute ECPDs Heparin 5000 units sub q (16) Pressure ulcer Current Visit: Yes Status: Acute Patient has to stage II pressure ulcers in the buttock area Preventative turning every 2 hours Continue to monitor Qualifiers: Pressure injury location: buttock Pressure injury stage: stage 2 Laterality: unspecified laterality Qualified Code(s): L89.302 - Pressure ulcer of unspecified buttock, stage 2 Subjective Principal diagnosis: septic shock Interval history: Mr. Mccarthy was seen at bedside this morning. He had a tracheotomy placed 07/11/18. PEG tube placed 07/12/18. Creatinine decreasing, nephrology following and treating with 2mg dDAVP daily for sodium stabilization. Currently on Vancomycin and Zosyn for e.coli UTI, and acinitobacter pneumonia. Patient is easily awaken, does follow some commands. Objective PUL Vital signs: Last Vital Signs Temp 98.1 F 07/13/18 03:22 Pulse 84 07/13/18 06:00 Resp 16 07/13/18 06:17 BP 92/61 07/13/18 06:17 Pulse Ox 94 07/13/18 06:17 General appearance: other (ventilated and sedated, nodded head when asked if he is doing ok today) Eyes: nonicteric ENT: oropharynx dry Neck: no lymphadenopathy Effort: normal Auscultation: bilateral: diminished breath sounds (lower lobes) Cardiovascular: regular rate and rhythm Gastrointestinal: normoactive bowel sounds, soft, non-distended Integumentary: other (twopressure ulcers on buttox region) Extremities: no cyanosis, no edema, pink and warm Ventilator Settings Ventilator Settings: Ventilator Settings, Last 8 Hours Ventilator Tidal Volume 480 Setting Ventilator Tidal Volume 480 Setting Ventilator Tidal Volume 480 Setting Ventilator Tidal Volume 480 Setting Ventilator Tidal Volume 480 Setting Ventilator Tidal Volume 480 Setting Ventilator Tidal Volume 480 Setting Ventilator Tidal Volume 480 Setting Ventilator Tidal Volume 480 Setting Ventilator Tidal Volume 480 Setting Ventilator Respiratory Rate 16 Setting Ventilator Respiratory Rate 16 Setting Ventilator Respiratory Rate 16 Setting Ventilator Respiratory Rate 16 Setting Ventilator Respiratory Rate 16 Setting Ventilator Respiratory Rate 16 Setting Ventilator Respiratory Rate 16 Setting Ventilator Respiratory Rate 16 Setting Ventilator Respiratory Rate 16 Setting Ventilator Respiratory Rate 16 Setting Actual Respiratory Rate 18 Actual Respiratory Rate 24 Actual Respiratory Rate 17 Actual Respiratory Rate 21 Actual Respiratory Rate 22 Actual Respiratory Rate 16 Actual Respiratory Rate 17 Actual Respiratory Rate 16 Actual Respiratory Rate 17 Actual Respiratory Rate 18 Positive End Expiratory 5 Pressure Positive End Expiratory 5 Pressure Positive End Expiratory 5 Pressure Positive End Expiratory 5 Pressure Positive End Expiratory 5 Pressure Positive End Expiratory 5 Pressure Positive End Expiratory 5 Pressure Positive End Expiratory 5 Pressure Positive End Expiratory 5 Pressure Positive End Expiratory 5 Pressure Peak Inspiratory Airway 32 Pressure Peak Inspiratory Airway 33 Pressure Peak Inspiratory Airway 31 Pressure Peak Inspiratory Airway 34 Pressure Peak Inspiratory Airway 33 Pressure Peak Inspiratory Airway 27 Pressure Peak Inspiratory Airway 31 Pressure Peak Inspiratory Airway 29 Pressure Peak Inspiratory Airway 30 Pressure Peak Inspiratory Airway 34 Pressure Results - Laboratory Findings CBC and BMP: 07/13/18 06:37 07/13/18 06:37 ABG ABG pH 7.38 pH Units (7.32-7.45) 07/12/18 05:14 ABG pCO2 52 mmHg (35-45) H 07/12/18 05:14 ABG pO2 68 mmHg (85-104) L 07/12/18 05:14 ABG O2 Saturation 93 % (95-98) L 07/12/18 05:14 PT/INR, D-dimer PT 15.6 Seconds (9.4-12.1) H 07/11/18 09:13 D-Dimer 3465 ng/mLFEU (0-500) H 06/18/18 08:08 Abnormal lab findings: Abnormal lab results RBC 2.39 M/mcL (4.19-5.50) L 07/12/18 03:00 Hgb 7.6 g/dL (12.9-16.9) L 07/12/18 03:00 Hct 24.7 % (37.5-50.1) L 07/12/18 03:00 MCV 103.3 fL (83.0-100.0) H 07/12/18 03:00 MCHC 30.8 g/dL (31.6-35.5) L 07/12/18 03:00 RDW 15.9 % (11.5-14.5) H 07/12/18 03:00 Band Neutrophils % 6.0 % (0-4) H 06/27/18 03:00 Metamyelocytes % 2.0 % (0) H 06/27/18 03:00 Myelocytes % 6.0 % (0) H 06/27/18 03:00 Nucleated RBCs/100 WBC 0.1 /100 WBC (0) H 06/28/18 03:30 Reactive Lymphocytes Present (Not Present) A 07/01/18 03:00 Toxic Granulation Present (Not Present) A 06/18/18 03:05 Toxic Vacuolation Present (Not Present) A 06/22/18 03:45 Large Platelets Present (Not Present) A 06/23/18 03:15 Polychromasia 1+ (Not Present) A 06/27/18 03:00 Basophilic Stippling 1+ (Not Present) A 06/26/18 04:00 Anisocytosis 1+ (Not Present) A 06/28/18 03:30 Macrocytosis Present (Not Present) A 06/26/18 04:00 PT 15.6 Seconds (9.4-12.1) H 07/11/18 09:13 Fibrinogen 578 mg/dL (169-393) H 06/18/18 08:08 D-Dimer 3465 ng/mLFEU (0-500) H 06/18/18 08:08 ABG pCO2 52 mmHg (35-45) H 07/12/18 05:14 ABG pO2 68 mmHg (85-104) L 07/12/18 05:14 ABG HCO3 31 mEq/L (21-27) H 07/12/18 05:14 ABG Total CO2 32 mEq/L (20-26) H 07/12/18 05:14 ABG O2 Saturation 93 % (95-98) L 07/12/18 05:14 ABG Base Excess 5 mEq/L (-2 to 3) H 07/12/18 05:14 Sodium 154 mEq/L (136-145) H 07/12/18 14:00 Chloride 119 mEq/L (98-107) H 07/12/18 14:00 BUN 42 mg/dL (6-20) H 07/12/18 14:00 Creatinine 1.71 mg/dL (0.70-1.30) H 07/12/18 14:00 Est GFR ( Amer) 51 (> 60) L 07/12/18 14:00 Est GFR (Non-Af Amer) 42 (> 60) L 07/12/18 14:00 Glucose 157 mg/dL (70-105) H 07/12/18 14:00 POC Glucose 143 mg/dL (70-99) H 07/13/18 03:24 Serum Osmolality 310 mOsm/kg (280-300) H 07/10/18 08:30 Calculated Osmolality 332 (280-300) H 07/12/18 14:00 Iron < 10 mcg/dL (65-175) L 07/01/18 03:00 Transferrin 146 mg/dL (203-362) L 07/01/18 03:00 Ferritin 647 ng/mL (20-250) H 07/01/18 03:00 Direct Bilirubin 0.4 mg/dL (0.0-0.2) H 06/23/18 03:15 Troponin I 0.92 ng/mL (< 0.04) H* 06/17/18 22:33 Albumin 2.7 g/dL (3.5-5.7) L 07/12/18 03:00 Globulin 4.0 g/dL (2.4-3.5) H 07/12/18 03:00 Albumin/Globulin Ratio 0.7 (1.1-2.2) L 07/12/18 03:00 Amylase 20 Units/L (29-103) L 06/23/18 16:27 Folate 2.5 ng/mL (3.0-16.0) L 06/27/18 11:25 Procalcitonin 107.11 ng/mL (<=0.07) H 06/17/18 16:40 TSH 7.234 mcIU/mL (0.340-5.600) H 06/27/18 11:25 Urine Protein 30 mg/dL (Neg-Trace) H 07/11/18 05:22 Urine Blood Large (Negative) H 07/11/18 05:22 Ur Leukocyte Esterase Small (Negative) H 07/11/18 05:22 Urine Microscopic WBC 5-15 per hpf (0-3) H 07/11/18 05:22 Ur Squamous Epith Cells Many per lpf (None-Few) H 07/11/18 05:22 Ur Culture Indicated? NO. (NO) A 07/11/18 05:22 Urine Osmolality 287 mOsm/kg (300-1090) L 07/10/18 08:30 Protein/Creatinin Ratio 1.68 mg/mg (0.00-0.20) H 06/30/18 09:34 Urine Total Protein 52 mg/dL (1-14) H 06/30/18 09:34 Vancomycin Trough 19 mcg/mL (5-10) H 07/05/18 04:00 Urine Opiates Screen Positive ng/mL (Hehcdy=152) H 06/18/18 10:37 U Benzodiazepines Scrn Positive ng/mL (Teybvn=387) H 06/18/18 10:37 HSV I DETECTED (Not Detect) A 06/24/18 15:10 - Microbiology Findings Microbiology Findings: Microbiology, Last 48 Hours 07/11/18 05:11 Blood Culture - Preliminary Peripheral Venipuncture Culture is incubating and being continuously monitored for growth. Final report to follow. 07/11/18 05:20 Blood Culture - Preliminary Central Venous Catheter Culture is incubating and being continuously monitored for growth. Final report to follow. - Clinical Findings Intake & Output: Intake & Output 07/12/18 07/12/18 07/13/18 15:59 23:59 07:59 Intake Total 500 / 500 2667.0 / 2667.0 200 / 200 Output Total 1725 / 1725 2850 / 2850 200 / 200 Balance -1225 / -1225 -183.0 / -183.0 0 / 0 Weight 106.8 kg - VTE Documentation of Mechanical Device: Intermittent pneumatic compression device Consult Discharge Plan - Plan Referrals: Sheryl Stahl, SMOKING PIPE MAKER [Primary Care Provider] - <Ludin Barrett - Last Filed: 07/13/18 23:06> Date of Encounter: 07/13/18 Assessment and Plan (1) Acute respiratory failure with hypoxemia Current Visit: Yes Status: Acute (2) Septic shock Current Visit: Yes Status: Acute (3) Systolic heart failure Current Visit: Yes Status: Deleted Qualifiers: Heart failure chronicity: acute on chronic Qualified Code(s): I50.23 - Acute on chronic systolic (congestive) heart failure (4) LUCILA (acute kidney injury) Current Visit: Yes Status: Acute (5) Type 2 diabetes mellitus Current Visit: Yes Status: Chronic Qualifiers: Diabetes mellitus chcf insulin use: with exterminator termite use Diabetes mellitus complication status: with unspecified complications Qualified Code(s) : E11.8 - Type 2 diabetes mellitus with unspecified complications; Z79.4 - oil heaterman (current) use of insulin (6) DVT prophylaxis Current Visit: Yes Status: Acute (7) Diabetes insipidus Current Visit: Yes Status: Acute (8) COPD (chronic obstructive pulmonary disease) Current Visit: Yes Status: Chronic Qualifiers: COPD type: emphysema Emphysema type: unspecified Qualified Code(s): J43.9 - Emphysema, unspecified Objective PUL Vital signs: Last Vital Signs Temp 98.2 F 07/13/18 19:59 Pulse 79 07/13/18 22:00 Resp 16 07/13/18 22:00 BP 116/70 07/13/18 22:00 Pulse Ox 95 07/13/18 22:00 Ventilator Settings Ventilator Settings: Ventilator Settings, Last 8 Hours Ventilator Tidal Volume 480 Setting Ventilator Tidal Volume 480 Setting Ventilator Tidal Volume 480 Setting Ventilator Tidal Volume 480 Setting Ventilator Tidal Volume 480 Setting Ventilator Tidal Volume 480 Setting Ventilator Tidal Volume 480 Setting Ventilator Tidal Volume 480 Setting Ventilator Tidal Volume 480 Setting Ventilator Tidal Volume 480 Setting Ventilator Tidal Volume 480 Setting Ventilator Respiratory Rate 16 Setting Ventilator Respiratory Rate 16 Setting Ventilator Respiratory Rate 16 Setting Ventilator Respiratory Rate 16 Setting Ventilator Respiratory Rate 16 Setting Ventilator Respiratory Rate 16 Setting Ventilator Respiratory Rate 16 Setting Ventilator Respiratory Rate 16 Setting Ventilator Respiratory Rate 16 Setting Ventilator Respiratory Rate 16 Setting Ventilator Respiratory Rate 16 Setting Actual Respiratory Rate 16 Actual Respiratory Rate 22 Actual Respiratory Rate 20 Actual Respiratory Rate 21 Actual Respiratory Rate 20 Actual Respiratory Rate 21 Actual Respiratory Rate 26 Actual Respiratory Rate 20 Actual Respiratory Rate 18 Actual Respiratory Rate 16 Actual Respiratory Rate 18 Positive End Expiratory 5 Pressure Positive End Expiratory 5 Pressure Positive End Expiratory 5 Pressure Positive End Expiratory 5 Pressure Positive End Expiratory 5 Pressure Positive End Expiratory 5 Pressure Positive End Expiratory 5 Pressure Positive End Expiratory 5 Pressure Positive End Expiratory 5 Pressure Positive End Expiratory 5 Pressure Positive End Expiratory 5 Pressure Peak Inspiratory Airway 27 Pressure Peak Inspiratory Airway 19 Pressure Peak Inspiratory Airway 19 Pressure Peak Inspiratory Airway 21 Pressure Peak Inspiratory Airway 24 Pressure Peak Inspiratory Airway 29 Pressure Peak Inspiratory Airway 24 Pressure Peak Inspiratory Airway 29 Pressure Peak Inspiratory Airway 22 Pressure Peak Inspiratory Airway 22 Pressure Peak Inspiratory Airway 29 Pressure Results - Laboratory Findings CBC and BMP: 07/13/18 06:37 07/13/18 06:37 ABG ABG pH 7.38 pH Units (7.32-7.45) 07/12/18 05:14 ABG pCO2 52 mmHg (35-45) H 07/12/18 05:14 ABG pO2 68 mmHg (85-104) L 07/12/18 05:14 ABG O2 Saturation 93 % (95-98) L 07/12/18 05:14 PT/INR, D-dimer PT 15.6 Seconds (9.4-12.1) H 07/11/18 09:13 D-Dimer 3465 ng/mLFEU (0-500) H 06/18/18 08:08 Abnormal lab findings: Abnormal lab results RBC 2.36 M/mcL (4.19-5.50) L 07/13/18 06:37 Hgb 7.6 g/dL (12.9-16.9) L 07/13/18 06:37 Hct 24.6 % (37.5-50.1) L 07/13/18 06:37 MCV 104.2 fL (83.0-100.0) H 07/13/18 06:37 MCHC 30.9 g/dL (31.6-35.5) L 07/13/18 06:37 RDW 16.0 % (11.5-14.5) H 07/13/18 06:37 Band Neutrophils % 6.0 % (0-4) H 06/27/18 03:00 Metamyelocytes % 2.0 % (0) H 06/27/18 03:00 Myelocytes % 6.0 % (0) H 06/27/18 03:00 Eosinophils # 1.0 K/mcL (0.0-0.6) H 07/13/18 06:37 Nucleated RBCs/100 WBC 0.1 /100 WBC (0) H 06/28/18 03:30 Reactive Lymphocytes Present (Not Present) A 07/01/18 03:00 Toxic Granulation Present (Not Present) A 06/18/18 03:05 Toxic Vacuolation Present (Not Present) A 06/22/18 03:45 Large Platelets Present (Not Present) A 06/23/18 03:15 Polychromasia 1+ (Not Present) A 06/27/18 03:00 Basophilic Stippling 1+ (Not Present) A 06/26/18 04:00 Anisocytosis 1+ (Not Present) A 06/28/18 03:30 Macrocytosis Present (Not Present) A 06/26/18 04:00 PT 15.6 Seconds (9.4-12.1) H 07/11/18 09:13 Fibrinogen 578 mg/dL (169-393) H 06/18/18 08:08 D-Dimer 3465 ng/mLFEU (0-500) H 06/18/18 08:08 ABG pCO2 52 mmHg (35-45) H 07/12/18 05:14 ABG pO2 68 mmHg (85-104) L 07/12/18 05:14 ABG HCO3 31 mEq/L (21-27) H 07/12/18 05:14 ABG Total CO2 32 mEq/L (20-26) H 07/12/18 05:14 ABG O2 Saturation 93 % (95-98) L 07/12/18 05:14 ABG Base Excess 5 mEq/L (-2 to 3) H 07/12/18 05:14 Sodium 155 mEq/L (136-145) H 07/13/18 06:37 Chloride 120 mEq/L (98-107) H 07/13/18 06:37 BUN 41 mg/dL (6-20) H 07/13/18 06:37 Creatinine 1.66 mg/dL (0.70-1.30) H 07/13/18 06:37 Est GFR ( Amer) 53 (> 60) L 07/13/18 06:37 Est GFR (Non-Af Amer) 44 (> 60) L 07/13/18 06:37 Glucose 121 mg/dL (70-105) H 07/13/18 06:37 POC Glucose 151 mg/dL (70-99) H 07/13/18 19:24 Serum Osmolality 310 mOsm/kg (280-300) H 07/10/18 08:30 Calculated Osmolality 331 (280-300) H 07/13/18 06:37 Iron < 10 mcg/dL (65-175) L 07/01/18 03:00 Transferrin 146 mg/dL (203-362) L 07/01/18 03:00 Ferritin 647 ng/mL (20-250) H 07/01/18 03:00 Direct Bilirubin 0.4 mg/dL (0.0-0.2) H 06/23/18 03:15 Troponin I 0.92 ng/mL (< 0.04) H* 06/17/18 22:33 Albumin 2.7 g/dL (3.5-5.7) L 07/12/18 03:00 Globulin 4.0 g/dL (2.4-3.5) H 07/12/18 03:00 Albumin/Globulin Ratio 0.7 (1.1-2.2) L 07/12/18 03:00 Amylase 20 Units/L (29-103) L 06/23/18 16:27 Folate 2.5 ng/mL (3.0-16.0) L 06/27/18 11:25 Procalcitonin 107.11 ng/mL (<=0.07) H 06/17/18 16:40 TSH 7.234 mcIU/mL (0.340-5.600) H 06/27/18 11:25 Urine Protein 30 mg/dL (Neg-Trace) H 07/11/18 05:22 Urine Blood Large (Negative) H 07/11/18 05:22 Ur Leukocyte Esterase Small (Negative) H 07/11/18 05:22 Urine Microscopic WBC 5-15 per hpf (0-3) H 07/11/18 05:22 Ur Squamous Epith Cells Many per lpf (None-Few) H 07/11/18 05:22 Ur Culture Indicated? NO. (NO) A 07/11/18 05:22 Urine Osmolality 287 mOsm/kg (300-1090) L 07/10/18 08:30 Protein/Creatinin Ratio 1.68 mg/mg (0.00-0.20) H 06/30/18 09:34 Urine Total Protein 52 mg/dL (1-14) H 06/30/18 09:34 Vancomycin Trough 26 mcg/mL (5-10) H 07/13/18 07:00 Urine Opiates Screen Positive ng/mL (Nuphxi=903) H 06/18/18 10:37 U Benzodiazepines Scrn Positive ng/mL (Aoingh=931) H 06/18/18 10:37 HSV I DETECTED (Not Detect) A 06/24/18 15:10 - Clinical Findings Intake & Output: Intake & Output 07/13/18 07/13/18 07/13/18 07:59 15:59 23:59 Intake Total 400 / 400 1551 / 1551 1820 / 1820 Output Total 200 / 200 650 / 650 900 / 900 Balance 200 / 200 901 / 901 920 / 920 - Attending Attestation - Attending Attestation I saw and evaluated this patient and my medical decision-making was reviewed with the Resident Physician. I agree with the documented findings, disposition and treatment plan as described except to the extent set forth below. We independently had [id number] contact with the patient I spent 33 minutes of Critical Care time with this patient. It involved decision making of high complexity to assess, manipulate, and support vital organ system failure and/or to prevent further life threatening deterioration of the patient's condition. The time involved in the performance of separately reportable procedures was not counted toward critical care time. Patient seen and examined at bedside Labs, radiology, chart personally reviewed. Management was reviewed during multidisciplinary critical care rounds. FACILITY MAINTENANCE SUPERVISOR: Patient has signs of toxic /metabolic encephalopathy patient after tracheostomy still on quite bit of IV sedation will add some background anti- psychotics Pulm: Patient has acceptable oxygenation and Ventilation with Day 2 of Tracheostomy tried SBT patient failed today Cards: Patient septic shock is resolved.He is hemodynamically stable FEN-GI: Diet according to nutrition.Patient has Moderate Non -Severe Protein Calorie Malnutrition. Renal: Diabetic insipidus patient is on Daily DDAVP ,Patient is Sodium trending up will add Free water ID: Reviewed broad-spectrum antibiotics to continue antibiotics according to ID recs Heme/Onc: Thromboprophylaxis Endo: Glucose Monitored Integ/MSK: Skin Care per routine ICU Nursing Protocol . Patient has 2 stage II Buttock ulcers Lines: All lines examined without evidence of infection : Dispo: Critically ill.
[2018-07-13 08:12] LABS: Basophils # 0.1 K/mcL (0.0-0.2); Basophils % 0.7 %; Hematocrit 24.6 % (37.5-50.1); Hemoglobin 7.6 g/dL (12.9-16.9); Immature Granulocytes % 1.5 % (0-4); Lymphocytes # 1.9 K/mcL (0.6-4.6); Lymphocytes % 20.8 %; Mean Corpuscular HGB Conc 30.9 g/dL (31.6-35.5); Mean Corpuscular Hemoglobin 32.2 pg (28.0-33.3); Mean Corpuscular Volume 104.2 fL (83.0-100.0); Mean Platelet Volume 12.3 fL (9.4-12.4); Monocytes # 0.9 K/mcL (0.0-1.3); Monocytes % 9.6 %; Neutrophils # 5.2 K/mcL (1.6-8.9); Platelet Count 241 K/mcL (140-400); Red Blood Count 2.36 M/mcL (4.19-5.50); Segmented Neutrophils % 56.4 %
--- NOTE | 2018-07-13 08:53 | Nephrology Progress Note ---
Date of Encounter: 07/13/18 Time of Encounter: 08:53 - Assessment and Plan (1) Hypernatremia Current Visit: Yes Status: Acute Increase Ddavp to 4mcg daily. Restart free water flushes 400cc q 4 hour Follow sodium level. (2) Acute respiratory failure with hypoxemia Current Visit: Yes Status: Acute Per critical acre team (3) LUCILA (acute kidney injury) Current Visit: Yes Status: Acute Patient is no longer on dialysis and continue to avoid nephrotoxins and adjust medications as needed no acute indication for dialysis. Renal function continues to improve. (4) Anemia Current Visit: Yes Status: Acute Hgb noted will monitor folic acid and iron stores are low. cyanacobalamin, folic acid and iron supplements started 07/13/18 Qualifiers: Anemia type: iron deficiency Iron deficiency anemia type: unspecified iron deficiency Qualified Code(s): D50.9 - Iron deficiency anemia, unspecified Subjective Principal diagnosis: septic shock Interval history: Patient seen on CRRT. He is intubated and sedated ROS is unobtainable. Objective - Vital Signs Vital signs: Vital Signs Temp Pulse Resp BP Pulse Ox 07/13/18 08:00 97.4 F L 07/13/18 07:52 20 86/58 94 07/13/18 06:17 16 92/61 94 07/13/18 06:00 84 24 92/61 95 07/13/18 05:00 64 17 81/51 92 07/13/18 04:00 82 21 103/66 96 07/13/18 03:22 98.1 F 07/13/18 03:12 16 96/68 95 07/13/18 03:00 64 16 96/68 96 07/13/18 02:31 17 83/55 93 07/13/18 02:00 65 16 83/55 93 07/13/18 01:00 66 17 84/58 95 07/13/18 00:00 67 18 81/50 95 07/12/18 23:31 98.1 F 07/12/18 23:11 16 86/52 93 07/12/18 23:00 66 16 86/52 93 07/12/18 22:00 78 17 81/47 90 07/12/18 21:51 16 103/63 93 07/12/18 21:00 85 17 114/64 93 07/12/18 20:00 110 18 95/43 96 07/12/18 19:37 99.8 F H 07/12/18 19:33 25 137/75 93 07/12/18 19:00 94 19 126/75 92 07/12/18 18:00 94 20 119/75 94 07/12/18 17:52 16 92/55 100 07/12/18 17:00 75 16 91/58 94 07/12/18 16:00 112 20 144/82 95 07/12/18 15:39 21 126/73 94 07/12/18 15:00 92 20 124/64 94 07/12/18 14:00 106 24 144/83 94 07/12/18 13:00 116 20 117/79 95 07/12/18 12:00 100.1 F H 101 18 116/61 93 07/12/18 11:53 18 107/68 96 07/12/18 11:00 78 16 112/68 94 07/12/18 10:00 98 17 113/63 94 07/12/18 09:00 109 20 130/76 95 Intake and Output 07/12/18 07/13/18 07/13/18 23:59 07:59 15:59 Intake Total 2667.0 / 2667.0 400 / 400 Output Total 2850 / 2850 200 / 200 250 / 250 Balance -183.0 / -183.0 200 / 200 -250 / -250 Intake: IV Fluids 2667.0 / 2667.0 400 / 400 PRECEDEX Premix 400 mcg In 100 200 / 200 200 / 200 ml @ 0.2 MCG/KG/HR 5.45 mls/hr IVC .[id number] NADIA Rx#:[id number] FentaNYL (PF) 2,500 MCG In 50 / 50 Empty Bag 1 Each @ 50 MCG/HR 1 mls/hr IVC CONT NADIA Rx#: [id number] Diprivan 1,000 mg In 100 ml @ 5 200 / 200 100 / 100 MCG/KG/MIN 3.345 mls/hr IVC . Q24H NADIA Rx#:[id number] Ddavp 2 Mcg In 0.9 % Sodium 101.0 / 101.0 Chloride 50 ML @ 100 mls/hr IVPB DAILY NADIA Rx#:[id number] Zosyn 3.375 GM In 0.9 % Sodium 200 / 200 100 / 100 Chloride (Mini-Bag +) 100 ML @ 25 mls/hr IVPB Q8H [facility] Rx#: [id number] Output: Rectal Tube 100 / 100 0 / 0 Catheter 2750 / 2750 200 / 200 250 / 250 Other: Stool Consistency liquid Stool Color Brown Weight 106.8 kg Blood Glucose* 134 143 123 - Lab 07/13/18 06:37 07/13/18 06:37 Most recent lab results ABG pH 7.38 pH Units (7.32-7.45) 07/12/18 05:14 ABG pCO2 52 mmHg (35-45) H 07/12/18 05:14 ABG pO2 68 mmHg (85-104) L 07/12/18 05:14 ABG HCO3 31 mEq/L (21-27) H 07/12/18 05:14 ABG O2 Saturation 93 % (95-98) L 07/12/18 05:14 Calcium 9.3 mg/dL (8.6-10.3) 07/12/18 14:00 Phosphorus 4.2 mg/dL (2.7-4.5) 07/12/18 03:00 Magnesium 1.9 mg/dL (1.6-2.6) 07/12/18 03:00 Urine Creatinine 31 mg/dL 06/30/18 09:34 Urine Sodium 57.9 mEq/L 07/10/18 08:30 Urine Total Protein 52 mg/dL (1-14) H 06/30/18 09:34 - VTE Documentation of Mechanical Device: Intermittent pneumatic compression device Consult Discharge Plan - Plan Referrals: Sheryl Stahl ASSISTANT CENTER MANAGER [Primary Care Provider] -
[2018-07-13] MEDS: Chlorhexidine Rinse 15 ML MOUTHWASH MM SCH ×2 (08:54→21:04)
[2018-07-13] MEDS: Pantoprazole 40 MG VIAL IVP SCH (08:54)
[2018-07-13 09:02] LABS: Calcium 9.2 mg/dL (8.6-10.3); Magnesium 1.9 mg/dL (1.6-2.6); Phosphorous 3.9 mg/dL (2.7-4.5)
--- NOTE | 2018-07-13 09:59 | General Surgery Progress Note ---
Date of Encounter: 07/13/18 Time of Encounter: 08:00 Subjective Narrative: General Surgery - POD #1 -s/p EGD /PEG. The patient remains mechanically ventilated, sedated. Afebrile, 97.4; pulse 77, respiratory rate 20-30; BP 103/65 No obvious abdominal tenderness. Gastrostomy tube appears intact; insertion site clean and dry. Impression: Postoperative day #1 status post EGD/PEG Acceptable status tube feedings to begin today Objective Vital Signs - Last 8 Hours Temp Pulse Resp BP Pulse Ox 07/13/18 09:00 77 30 103/65 94 07/13/18 08:55 20 100/65 94 07/13/18 08:00 97.4 F L 90 29 104/77 94 07/13/18 07:52 20 86/58 94 07/13/18 07:00 85 21 82/63 95 07/13/18 06:17 16 92/61 94 07/13/18 06:00 84 24 92/61 95 07/13/18 05:00 64 17 81/51 92 07/13/18 04:00 82 21 103/66 96 07/13/18 03:22 98.1 F 07/13/18 03:12 16 96/68 95 07/13/18 03:00 64 16 96/68 96 07/13/18 02:31 17 83/55 93 07/13/18 02:00 65 16 83/55 93 Intake and Output 07/12/18 07/13/18 07/13/18 23:59 07:59 15:59 Intake Total 2667.0 / 2667.0 400 / 400 600 / 600 Output Total 2850 / 2850 200 / 200 250 / 250 Balance -183.0 / -183.0 200 / 200 350 / 350 Intake: IV Fluids 2667.0 / 2667.0 400 / 400 100 / 100 PRECEDEX Premix 400 mcg In 100 200 / 200 200 / 200 ml @ 0.2 MCG/KG/HR 5.45 mls/hr IVC .[id number] NADIA Rx#:[id number] FentaNYL (PF) 2,500 MCG In 50 / 50 Empty Bag 1 Each @ 50 MCG/HR 1 mls/hr IVC CONT NADIA Rx#: [id number] Diprivan 1,000 mg In 100 ml @ 5 200 / 200 100 / 100 100 / 100 MCG/KG/MIN 3.345 mls/hr IVC . Q24H NADIA Rx#:[id number] Ddavp 2 Mcg In 0.9 % Sodium 101.0 / 101.0 Chloride 50 ML @ 100 mls/hr IVPB DAILY NADIA Rx#:[id number] Zosyn 3.375 GM In 0.9 % Sodium 200 / 200 100 / 100 Chloride (Mini-Bag +) 100 ML @ 25 mls/hr IVPB Q8H NADIA Rx#: [id number] Free Water 500 / 500 Output: Rectal Tube 100 / 100 0 / 0 Catheter 2750 / 2750 200 / 200 250 / 250 Other: Stool Consistency liquid Stool Color Brown Weight 106.8 kg Blood Glucose* 134 143 123 - Labs 07/13/18 06:37 07/13/18 06:37 Diabetes panel 07/12/18 07/13/18 Range/Units 14:00 06:37 Sodium 154 H 155 H (136-145) mEq/L Potassium 4.5 4.0 (3.5-5.1) mEq/L Chloride 119 H 120 H (98-107) mEq/L Carbon Dioxide 26 29 (23-29) mEq/L BUN 42 H 41 H (6-20) mg/dL Creatinine 1.71 H 1.66 H (0.70-1.30) mg/dL Glucose 157 H 121 H (70-105) mg/dL Calcium 9.3 9.2 (8.6-10.3) mg/dL Calcium panel 07/12/18 07/13/18 Range/Units 14:00 06:37 Calcium 9.3 9.2 (8.6-10.3) mg/dL Phosphorus 3.9 (2.7-4.5) mg/dL Pituitary panel 07/12/18 07/13/18 Range/Units 14:00 06:37 Sodium 154 H 155 H (136-145) mEq/L Potassium 4.5 4.0 (3.5-5.1) mEq/L Chloride 119 H 120 H (98-107) mEq/L Carbon Dioxide 26 29 (23-29) mEq/L BUN 42 H 41 H (6-20) mg/dL Creatinine 1.71 H 1.66 H (0.70-1.30) mg/dL Glucose 157 H 121 H (70-105) mg/dL Calcium 9.3 9.2 (8.6-10.3) mg/dL Adrenal panel 07/12/18 07/13/18 Range/Units 14:00 06:37 Sodium 154 H 155 H (136-145) mEq/L Potassium 4.5 4.0 (3.5-5.1) mEq/L Chloride 119 H 120 H (98-107) mEq/L Carbon Dioxide 26 29 (23-29) mEq/L BUN 42 H 41 H (6-20) mg/dL Creatinine 1.71 H 1.66 H (0.70-1.30) mg/dL Glucose 157 H 121 H (70-105) mg/dL Calcium 9.3 9.2 (8.6-10.3) mg/dL - VTE Documentation of Mechanical Device: Intermittent pneumatic compression device Consult Discharge Plan - Plan Referrals: Sheryl Stahl, GAMBLING SUPERVISOR [Primary Care Provider] -
[2018-07-13] MEDS: DESMOPRESSIN IVPB SCH (10:11)
[2018-07-13] MEDS: SODIUM CHLORIDE 0.9% IVPB SCH (10:11)
[2018-07-13] MEDS: Nystatin SUSP 5 ML UD.LIQ PO SCH (10:12)
[2018-07-13] MEDS: Potassium Chloride Elixir 20 MEQ/15 ML UDC PO SCH (10:14)
[2018-07-13] MEDS: Folic Acid 1 MG TABLET PO SCH (11:22)
[2018-07-13] MEDS: Norepinephrine 4 MG in D5% in Water 250 ML IVC SCH (11:33)
[2018-07-13] MEDS: Insulin Human Regular 100 UNIT in 0.9 % Sodium Chloride 100 ML IVC SCH (16:22)
[2018-07-13] MEDS: FentaNYL (PF) 2,500 MCG in EMPTY BAG 1 EACH IVC SCH (16:24)
[2018-07-13] MEDS: Insulin DETEMIR 100 UNIT/ML X5UNITS SQ SCH (21:05)
[2018-07-14] MEDS: Artificial Tears SOLN 15 ML BOTTLE BOTH EYES SCH ×7 (01:07→23:50)
[2018-07-14] MEDS: D5% in Water 1,000 ML IVC SCH ×3 (01:08→17:15)
[2018-07-14] MEDS: Insulin LISPRO 300 UNITS/3 ML VIAL SQ SCH ×7 (01:08→23:50)
[2018-07-14] MEDS: Dexmedetomidine HCl 400 MCG/100 ML MLS IVC SCH ×6 (02:22→22:16)
[2018-07-14] MEDS: Piperacillin/Tazobactam 3.375 GM in 0.9 % Sodium Chloride Mini Bag 100 ML IVPB SCH ×3 (05:04→20:26)
[2018-07-14] MEDS: *HR* Heparin 5,000 UNIT/ML VIAL SQ SCH ×2 (05:04→17:45)
[2018-07-14 05:17] LABS: Basophils # 0.1 K/mcL (0.0-0.2); Basophils % 0.6 %; Eosinophils % 12.6 %; Hematocrit 23.6 % (37.5-50.1); Hemoglobin 7.2 g/dL (12.9-16.9); Immature Granulocytes % 1.4 % (0-4); Lymphocytes # 1.9 K/mcL (0.6-4.6); Lymphocytes % 23.5 %; Mean Corpuscular HGB Conc 30.5 g/dL (31.6-35.5); Mean Corpuscular Volume 101.7 fL (83.0-100.0); Mean Platelet Volume 12.3 fL (9.4-12.4); Monocytes # 0.8 K/mcL (0.0-1.3); Monocytes % 9.2 %; Neutrophils # 4.3 K/mcL (1.6-8.9); Platelet Count 270 K/mcL (140-400); Red Blood Count 2.32 M/mcL (4.19-5.50); Red Cell Distribution Width 15.9 % (11.5-14.5); Segmented Neutrophils % 52.7 %
[2018-07-14 05:32] LABS: BUN/Creatinine Ratio 23 (6-26); Blood Urea Nitrogen 32 mg/dL (6-20); Carbon Dioxide 28 mEq/L (23-29); Chloride 117 mEq/L (98-107); Glucose 234 mg/dL (70-105); Magnesium 1.7 mg/dL (1.6-2.6); Osmolality,Calculated 328 (280-300); Phosphorous 3.3 mg/dL (2.7-4.5); Potassium 3.4 mEq/L (3.5-5.1); Sodium 152 mEq/L (136-145); eGFR For Non-African Americans 54 (> 60)
--- NOTE | 2018-07-14 07:30 | Pulmonology Progress Note ---
<JonasMaximo W - Last Filed: 07/14/18 08:27> Date of Encounter: 07/14/18 Objective PUL Vital signs: Last Vital Signs Temp 98.4 F 07/14/18 04:00 Pulse 95 07/14/18 06:00 Resp 18 07/14/18 06:30 BP 119/45 07/14/18 06:00 Pulse Ox 95 07/14/18 06:30 Ventilator Settings Ventilator Settings: Ventilator Settings, Last 8 Hours Ventilator Tidal Volume 480 Setting Ventilator Tidal Volume 480 Setting Ventilator Tidal Volume 480 Setting Ventilator Tidal Volume 480 Setting Ventilator Tidal Volume 480 Setting Ventilator Tidal Volume 480 Setting Ventilator Tidal Volume 480 Setting Ventilator Tidal Volume 480 Setting Ventilator Tidal Volume 480 Setting Ventilator Respiratory Rate 16 Setting Ventilator Respiratory Rate 16 Setting Ventilator Respiratory Rate 16 Setting Ventilator Respiratory Rate 16 Setting Ventilator Respiratory Rate 16 Setting Ventilator Respiratory Rate 16 Setting Ventilator Respiratory Rate 16 Setting Ventilator Respiratory Rate 16 Setting Ventilator Respiratory Rate 16 Setting Actual Respiratory Rate 22 Actual Respiratory Rate 22 Actual Respiratory Rate 17 Actual Respiratory Rate 20 Actual Respiratory Rate 16 Actual Respiratory Rate 16 Actual Respiratory Rate 16 Actual Respiratory Rate 20 Actual Respiratory Rate 27 Positive End Expiratory 5 Pressure Positive End Expiratory 5 Pressure Positive End Expiratory 5 Pressure Positive End Expiratory 5 Pressure Positive End Expiratory 5 Pressure Positive End Expiratory 5 Pressure Positive End Expiratory 5 Pressure Positive End Expiratory 5 Pressure Positive End Expiratory 5 Pressure Peak Inspiratory Airway 22 Pressure Peak Inspiratory Airway 22 Pressure Peak Inspiratory Airway 24 Pressure Peak Inspiratory Airway 33 Pressure Peak Inspiratory Airway 33 Pressure Peak Inspiratory Airway 33 Pressure Peak Inspiratory Airway 30 Pressure Peak Inspiratory Airway 28 Pressure Peak Inspiratory Airway 29 Pressure Results - Laboratory Findings CBC and BMP: 07/14/18 04:50 07/14/18 04:50 ABG ABG pH 7.38 pH Units (7.32-7.45) 07/12/18 05:14 ABG pCO2 52 mmHg (35-45) H 07/12/18 05:14 ABG pO2 68 mmHg (85-104) L 07/12/18 05:14 ABG O2 Saturation 93 % (95-98) L 07/12/18 05:14 PT/INR, D-dimer PT 15.6 Seconds (9.4-12.1) H 07/11/18 09:13 D-Dimer 3465 ng/mLFEU (0-500) H 06/18/18 08:08 Abnormal lab findings: Abnormal lab results RBC 2.32 M/mcL (4.19-5.50) L 07/14/18 04:50 Hgb 7.2 g/dL (12.9-16.9) L 07/14/18 04:50 Hct 23.6 % (37.5-50.1) L 07/14/18 04:50 MCV 101.7 fL (83.0-100.0) H 07/14/18 04:50 MCHC 30.5 g/dL (31.6-35.5) L 07/14/18 04:50 RDW 15.9 % (11.5-14.5) H 07/14/18 04:50 Band Neutrophils % 6.0 % (0-4) H 06/27/18 03:00 Metamyelocytes % 2.0 % (0) H 06/27/18 03:00 Myelocytes % 6.0 % (0) H 06/27/18 03:00 Eosinophils # 1.0 K/mcL (0.0-0.6) H 07/14/18 04:50 Nucleated RBCs/100 WBC 0.1 /100 WBC (0) H 06/28/18 03:30 Reactive Lymphocytes Present (Not Present) A 07/01/18 03:00 Toxic Granulation Present (Not Present) A 06/18/18 03:05 Toxic Vacuolation Present (Not Present) A 06/22/18 03:45 Large Platelets Present (Not Present) A 06/23/18 03:15 Polychromasia 1+ (Not Present) A 06/27/18 03:00 Basophilic Stippling 1+ (Not Present) A 06/26/18 04:00 Anisocytosis 1+ (Not Present) A 06/28/18 03:30 Macrocytosis Present (Not Present) A 06/26/18 04:00 PT 15.6 Seconds (9.4-12.1) H 07/11/18 09:13 Fibrinogen 578 mg/dL (169-393) H 06/18/18 08:08 D-Dimer 3465 ng/mLFEU (0-500) H 06/18/18 08:08 ABG pCO2 52 mmHg (35-45) H 07/12/18 05:14 ABG pO2 68 mmHg (85-104) L 07/12/18 05:14 ABG HCO3 31 mEq/L (21-27) H 07/12/18 05:14 ABG Total CO2 32 mEq/L (20-26) H 07/12/18 05:14 ABG O2 Saturation 93 % (95-98) L 07/12/18 05:14 ABG Base Excess 5 mEq/L (-2 to 3) H 07/12/18 05:14 Sodium 152 mEq/L (136-145) H 07/14/18 04:50 Potassium 3.4 mEq/L (3.5-5.1) L 07/14/18 04:50 Chloride 117 mEq/L (98-107) H 07/14/18 04:50 BUN 32 mg/dL (6-20) H 07/14/18 04:50 Creatinine 1.37 mg/dL (0.70-1.30) H 07/14/18 04:50 Est GFR (Non-Af Amer) 54 (> 60) L 07/14/18 04:50 Glucose 234 mg/dL (70-105) H 07/14/18 04:50 POC Glucose 226 mg/dL (70-99) H 07/14/18 07:57 Serum Osmolality 310 mOsm/kg (280-300) H 07/10/18 08:30 Calculated Osmolality 328 (280-300) H 07/14/18 04:50 Iron < 10 mcg/dL (65-175) L 07/01/18 03:00 Transferrin 146 mg/dL (203-362) L 07/01/18 03:00 Ferritin 647 ng/mL (20-250) H 07/01/18 03:00 Direct Bilirubin 0.4 mg/dL (0.0-0.2) H 06/23/18 03:15 Troponin I 0.92 ng/mL (< 0.04) H* 06/17/18 22:33 Albumin 2.7 g/dL (3.5-5.7) L 07/12/18 03:00 Globulin 4.0 g/dL (2.4-3.5) H 07/12/18 03:00 Albumin/Globulin Ratio 0.7 (1.1-2.2) L 07/12/18 03:00 Amylase 20 Units/L (29-103) L 06/23/18 16:27 Folate 2.5 ng/mL (3.0-16.0) L 06/27/18 11:25 Procalcitonin 107.11 ng/mL (<=0.07) H 06/17/18 16:40 TSH 7.234 mcIU/mL (0.340-5.600) H 06/27/18 11:25 Urine Protein 30 mg/dL (Neg-Trace) H 07/11/18 05:22 Urine Blood Large (Negative) H 07/11/18 05:22 Ur Leukocyte Esterase Small (Negative) H 07/11/18 05:22 Urine Microscopic WBC 5-15 per hpf (0-3) H 07/11/18 05:22 Ur Squamous Epith Cells Many per lpf (None-Few) H 07/11/18 05:22 Ur Culture Indicated? NO. (NO) A 07/11/18 05:22 Urine Osmolality 287 mOsm/kg (300-1090) L 07/10/18 08:30 Protein/Creatinin Ratio 1.68 mg/mg (0.00-0.20) H 06/30/18 09:34 Urine Total Protein 52 mg/dL (1-14) H 06/30/18 09:34 Vancomycin Trough 26 mcg/mL (5-10) H 07/13/18 07:00 Urine Opiates Screen Positive ng/mL (Ouyrfz=586) H 06/18/18 10:37 U Benzodiazepines Scrn Positive ng/mL (Urckjo=373) H 06/18/18 10:37 HSV I DETECTED (Not Detect) A 06/24/18 15:10 - Clinical Findings Intake & Output: Intake & Output 07/13/18 07/14/18 07/14/18 23:59 07:59 15:59 Intake Total 1820 / 1820 2300 / 2300 Output Total 900 / 900 800 / 800 Balance 920 / 920 1500 / 1500 Weight 106.6 kg Consult Discharge Plan - Plan Referrals: Sheryl Stahl CMM TECHNICIAN [Primary Care Provider] - - Attending Attestation I examined this patient and my medical decision-making was reviewed with the Resident Physician. I agree with the documented findings, disposition and treatment plan as described except to the extent set forth below. We independently had [id number] contact with the patient Patient seen and examined at bedside Labs, radiology, chart personally reviewed. Management was reviewed during multidisciplinary critical care rounds. 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 I suspect we can remove dialysis catheter ID: Treating for Escherichia coli urinary tract infection and Acinetobacter pneumonia white count is normalized Heme/Onc: Stable chronic anemia and platelets continue DVT prophylaxis Endo: Glucose Monitored Integ/MSK: Skin Care per routine ICU Nursing Protocol to prevent ulcers. Lines: All lines examined without evidence of infection : Dispo: This with case management social worker about transitioning to long-term acute care facility CODE: Full <Bonnie Cummins E - Last Filed: 07/14/18 10:52> Date of Encounter: 07/14/18 Time of Encounter: 07:27 Assessment and Plan (1) Septic shock Current Visit: Yes Status: Acute sepsis suspected secondary to karo fungemia. Acyclovir stopped 07/09/18. Urine shows e.coli on urine culture from 07/01/18. 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 Patient on intermittent dialysis. Hypernatremia being managed by 4mg dDAVP daily creatinine is improving free water restarted overnight, 150 q4 through peg, 125 ml/hr D5% dextrose in water (7) Hypocalcemia Current Visit: Yes Status: Resolved Continue to monitor. Calcium is stable today. Replace if necessary (8) Hypernatremia Current Visit: Yes Status: Acute Nephrology on board 4mg dDAVP daily to manage Na+ levels restarted free water last night 150 Q4 PEG, 125 ml/hr D5% dextrose in water (9) Hypokalemia Current Visit: Yes Status: Resolved Continue to monitor and replace as necessary (10) Encephalopathy Current Visit: Yes Status: Acute Patient was more alert this morning able to follow simple commands, nodded head no when asked about pain. Acyclovir stopped on 07/09/18 (11) Thrombocytopenia Current Visit: Yes Status: Resolved Platelets have been stable. Continue to monitor. 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 No heparin was in use in the lines which could have caused the excessive clotting on dialysis filter. Also, platelet count could have been decreased do to septic shock. Heparin was restarted, platelets continue to be stable (13) Type 2 diabetes mellitus Current Visit: Yes Status: Chronic 16 units Levamir SQ HS increased to 30 units today. high dose sliding scale We will continue to monitor Qualifiers: Qualified Code(s): E11.8 - Type 2 diabetes mellitus with unspecified complications; Z79.4 - custodial (current) use of insulin (14) UTI (urinary tract infection) Current Visit: Yes Status: Acute Urine culture from 07/01/18 grew gram negative brook Currently on vancomycin and zosyn Qualifiers: Qualified Code(s): N39.0 - Urinary tract infection, site not specified (15) DVT prophylaxis Current Visit: Yes Status: Acute ECPDs Heparin 5000 units sub q (16) Pressure ulcer Current Visit: Yes Status: Acute Patient has to stage II pressure ulcers in the buttock area Preventative turning every 2 hours Continue to monitor Qualifiers: Qualified Code(s): L89.302 - Pressure ulcer of unspecified buttock, stage 2 Subjective Principal diagnosis: septic shock Interval history: Mr. Mccarthy was seen at bedside this morning. He had a tracheotomy placed 07/11/18. PEG tube placed 07/12/18. Creatinine decreasing, nephrology following and treating with 4mg dDAVP daily for sodium stabilization. Currently on Vancomycin and Zosyn for e.coli UTI, and acinitobacter pneumonia. Currently on propofol, fentanyl, precedex and 25 HS seroquil. [place] increased to 25 BID in hopes to d/c propofol before transfer to LTAC facility, dicharge planning per social work msw has been started. Patient is easily awaken, does follow commands. Objective PUL Vital signs: Last Vital Signs Temp 98.4 F 07/14/18 04:00 Pulse 95 07/14/18 06:00 Resp 18 07/14/18 06:30 BP 119/45 07/14/18 06:00 Pulse Ox 95 07/14/18 06:30 General appearance: other (sedated and ventilated, easily awaken, follows commands) Eyes: nonicteric ENT: oropharynx moist Effort: normal Auscultation: bilateral: diminished breath sounds (lower lobes) Cardiovascular: regular rate and rhythm Gastrointestinal: normoactive bowel sounds, soft, non-distended Integumentary: other (pressure ulcer on buttox) Extremities: no cyanosis, no edema, pink and warm pupils equal and round, other (follows simple commands) Ventilator Settings Ventilator Settings: Ventilator Settings, Last 8 Hours Ventilator Tidal Volume 480 Setting Ventilator Tidal Volume 480 Setting Ventilator Tidal Volume 480 Setting Ventilator Tidal Volume 480 Setting Ventilator Tidal Volume 480 Setting Ventilator Tidal Volume 480 Setting Ventilator Tidal Volume 480 Setting Ventilator Tidal Volume 480 Setting Ventilator Tidal Volume 480 Setting Ventilator Tidal Volume 480 Setting Ventilator Respiratory Rate 16 Setting Ventilator Respiratory Rate 16 Setting Ventilator Respiratory Rate 16 Setting Ventilator Respiratory Rate 16 Setting Ventilator Respiratory Rate 16 Setting Ventilator Respiratory Rate 16 Setting Ventilator Respiratory Rate 16 Setting Ventilator Respiratory Rate 16 Setting Ventilator Respiratory Rate 16 Setting Ventilator Respiratory Rate 16 Setting Actual Respiratory Rate 22 Actual Respiratory Rate 22 Actual Respiratory Rate 17 Actual Respiratory Rate 20 Actual Respiratory Rate 16 Actual Respiratory Rate 16 Actual Respiratory Rate 16 Actual Respiratory Rate 20 Actual Respiratory Rate 27 Actual Respiratory Rate 25 Positive End Expiratory 5 Pressure Positive End Expiratory 5 Pressure Positive End Expiratory 5 Pressure Positive End Expiratory 5 Pressure Positive End Expiratory 5 Pressure Positive End Expiratory 5 Pressure Positive End Expiratory 5 Pressure Positive End Expiratory 5 Pressure Positive End Expiratory 5 Pressure Positive End Expiratory 5 Pressure Peak Inspiratory Airway 22 Pressure Peak Inspiratory Airway 22 Pressure Peak Inspiratory Airway 24 Pressure Peak Inspiratory Airway 33 Pressure Peak Inspiratory Airway 33 Pressure Peak Inspiratory Airway 33 Pressure Peak Inspiratory Airway 30 Pressure Peak Inspiratory Airway 28 Pressure Peak Inspiratory Airway 29 Pressure Peak Inspiratory Airway 25 Pressure Results - Laboratory Findings CBC and BMP: 07/14/18 04:50 07/14/18 04:50 ABG ABG pH 7.38 pH Units (7.32-7.45) 07/12/18 05:14 ABG pCO2 52 mmHg (35-45) H 07/12/18 05:14 ABG pO2 68 mmHg (85-104) L 07/12/18 05:14 ABG O2 Saturation 93 % (95-98) L 07/12/18 05:14 PT/INR, D-dimer PT 15.6 Seconds (9.4-12.1) H 07/11/18 09:13 D-Dimer 3465 ng/mLFEU (0-500) H 06/18/18 08:08 Abnormal lab findings: Abnormal lab results RBC 2.32 M/mcL (4.19-5.50) L 07/14/18 04:50 Hgb 7.2 g/dL (12.9-16.9) L 07/14/18 04:50 Hct 23.6 % (37.5-50.1) L 07/14/18 04:50 MCV 101.7 fL (83.0-100.0) H 07/14/18 04:50 MCHC 30.5 g/dL (31.6-35.5) L 07/14/18 04:50 RDW 15.9 % (11.5-14.5) H 07/14/18 04:50 Band Neutrophils % 6.0 % (0-4) H 06/27/18 03:00 Metamyelocytes % 2.0 % (0) H 06/27/18 03:00 Myelocytes % 6.0 % (0) H 06/27/18 03:00 Eosinophils # 1.0 K/mcL (0.0-0.6) H 07/14/18 04:50 Nucleated RBCs/100 WBC 0.1 /100 WBC (0) H 06/28/18 03:30 Reactive Lymphocytes Present (Not Present) A 07/01/18 03:00 Toxic Granulation Present (Not Present) A 06/18/18 03:05 Toxic Vacuolation Present (Not Present) A 06/22/18 03:45 Large Platelets Present (Not Present) A 06/23/18 03:15 Polychromasia 1+ (Not Present) A 06/27/18 03:00 Basophilic Stippling 1+ (Not Present) A 06/26/18 04:00 Anisocytosis 1+ (Not Present) A 06/28/18 03:30 Macrocytosis Present (Not Present) A 06/26/18 04:00 PT 15.6 Seconds (9.4-12.1) H 07/11/18 09:13 Fibrinogen 578 mg/dL (169-393) H 06/18/18 08:08 D-Dimer 3465 ng/mLFEU (0-500) H 06/18/18 08:08 ABG pCO2 52 mmHg (35-45) H 07/12/18 05:14 ABG pO2 68 mmHg (85-104) L 07/12/18 05:14 ABG HCO3 31 mEq/L (21-27) H 07/12/18 05:14 ABG Total CO2 32 mEq/L (20-26) H 07/12/18 05:14 ABG O2 Saturation 93 % (95-98) L 07/12/18 05:14 ABG Base Excess 5 mEq/L (-2 to 3) H 07/12/18 05:14 Sodium 152 mEq/L (136-145) H 07/14/18 04:50 Potassium 3.4 mEq/L (3.5-5.1) L 07/14/18 04:50 Chloride 117 mEq/L (98-107) H 07/14/18 04:50 BUN 32 mg/dL (6-20) H 07/14/18 04:50 Creatinine 1.37 mg/dL (0.70-1.30) H 07/14/18 04:50 Est GFR (Non-Af Amer) 54 (> 60) L 07/14/18 04:50 Glucose 234 mg/dL (70-105) H 07/14/18 04:50 POC Glucose 201 mg/dL (70-99) H 07/14/18 03:47 Serum Osmolality 310 mOsm/kg (280-300) H 07/10/18 08:30 Calculated Osmolality 328 (280-300) H 07/14/18 04:50 Iron < 10 mcg/dL (65-175) L 07/01/18 03:00 Transferrin 146 mg/dL (203-362) L 07/01/18 03:00 Ferritin 647 ng/mL (20-250) H 07/01/18 03:00 Direct Bilirubin 0.4 mg/dL (0.0-0.2) H 06/23/18 03:15 Troponin I 0.92 ng/mL (< 0.04) H* 06/17/18 22:33 Albumin 2.7 g/dL (3.5-5.7) L 07/12/18 03:00 Globulin 4.0 g/dL (2.4-3.5) H 07/12/18 03:00 Albumin/Globulin Ratio 0.7 (1.1-2.2) L 07/12/18 03:00 Amylase 20 Units/L (29-103) L 06/23/18 16:27 Folate 2.5 ng/mL (3.0-16.0) L 06/27/18 11:25 Procalcitonin 107.11 ng/mL (<=0.07) H 06/17/18 16:40 TSH 7.234 mcIU/mL (0.340-5.600) H 06/27/18 11:25 Urine Protein 30 mg/dL (Neg-Trace) H 07/11/18 05:22 Urine Blood Large (Negative) H 07/11/18 05:22 Ur Leukocyte Esterase Small (Negative) H 07/11/18 05:22 Urine Microscopic WBC 5-15 per hpf (0-3) H 07/11/18 05:22 Ur Squamous Epith Cells Many per lpf (None-Few) H 07/11/18 05:22 Ur Culture Indicated? NO. (NO) A 07/11/18 05:22 Urine Osmolality 287 mOsm/kg (300-1090) L 07/10/18 08:30 Protein/Creatinin Ratio 1.68 mg/mg (0.00-0.20) H 06/30/18 09:34 Urine Total Protein 52 mg/dL (1-14) H 06/30/18 09:34 Vancomycin Trough 26 mcg/mL (5-10) H 07/13/18 07:00 Urine Opiates Screen Positive ng/mL (Qtwzzx=745) H 06/18/18 10:37 U Benzodiazepines Scrn Positive ng/mL (Ptosid=784) H 06/18/18 10:37 HSV I DETECTED (Not Detect) A 06/24/18 15:10 - Clinical Findings Intake & Output: Intake & Output 07/13/18 07/13/18 07/14/18 15:59 23:59 07:59 Intake Total 1551 / 1551 1820 / 1820 2300 / 2300 Output Total 650 / 650 900 / 900 800 / 800 Balance 901 / 901 920 / 920 1500 / 1500 Weight 106.6 kg - VTE Documentation of Mechanical Device: Intermittent pneumatic compression device
[2018-07-14] MEDS: Potassium Chloride Elixir 20 MEQ/15 ML UDC PO SCH (07:59)
[2018-07-14] MEDS: Pantoprazole 40 MG VIAL IVP SCH (07:59)
[2018-07-14] MEDS: Chlorhexidine Rinse 15 ML MOUTHWASH MM SCH ×2 (07:59→20:24)
[2018-07-14] MEDS: Ferrous Sulfate Oral Soln 300 MG/5 ML UDC GTUBE SCH (07:59)
[2018-07-14] MEDS: Cyanocobalamin (B-12) 1,000 MCG TABLET PO SCH (07:59)
[2018-07-14] MEDS: Folic Acid 1 MG TABLET PO SCH (07:59)
--- NOTE | 2018-07-14 09:42 | Infectious Disease Progress No ---
Date of Encounter: 07/14/18 Time of Encounter: 08:50 - Assessment and Plan (1) Septic shock Current Visit: Yes Status: Acute The patient had 4 SIRS criteria plus lactic acidosis, acute kidney injury, acute encephalopathy, and hypotension requiring vasopressors. Likely secondary to candidemia, UTI, possible HSV encephalitis, and PNA. Improved. Leukocytosis resolved. Afebrile. Tachycardic this morning. Remains off vasopressors. Blood cultures obtained 06/17/18 are +2 out of 2 sets for Marisela albicans, nation- sensitive. Repeat blood cultures obtained 06/19/18 are negative 2 sets. Additional blood cultures drawn 07/04/18 are negative x [address] head showed partial opacification of the left sphenoid sinus and mastoid air cells. Unable to assess if the patient is symptomatic since he is sedated. Continue Vancomycin IV. Pharmacy to dose. Goal trough ~15. Continue Zosyn 3.375 grams IV Q8H. Duration of treatment depends on the clinical picture. Monitor renal function and dose-adjust antibiotics. (2) Candidemia Current Visit: Yes Status: Resolved Causative organism: Marisela albicans. Source: unclear. CT of the abdomen and pelvis is negative. He has no indwelling lines or catheters. His urine culture is positive for C. albicans. Blood cultures obtained 06/17/18 are +2 out of 2 sets for Marisela albicans, nation- sensitive. Repeat blood cultures obtained 06/19/18 are negative 2 sets. Additional blood cultures 07/04/18 are negative x 2 sets. Repeat LFTs normal. Completed 14 days of IV fluconazole. Resolved. Ophthalmology consult noted and appreciated. (3) Pneumonia Current Visit: Yes Status: Suspected Location: Bilateral lower lobes. Causative organism: Unclear. Consider aspiration since the patient had altered mental status and was recently intubated. CT of the chest showed bilateral lower lobe infiltrates versus atelectasis. The patient does have a large amount of secretions coming from his ET tube. Discussed with the pulmonary team. Concern for pneumonia from their standpoint. MRSA screen completed 06/17/18 is negative. Initial sputum culture negative. Repeat Sputum culture 07/04/18 positive for A. baummannii. S. pneumo and Legionella UAT 06/20/18.--> negative. Repeat CXR 06/23/18 showed mild pulmonary vascular congestion and atelectasis and mild pleural effusion at the right lung base, increased. CT scan of the chest 06/23/18 negative for PNA. CXR 07/01/18 showed stable RLL disease and improved LLL disease. CXR 07/07/18 showed mild pulmonary vascular congestion and mild right pleural effusion. CXR 07/11/18 showed right basilar opacity and pulmonary edema. Vanc and Zosyn discontinued 06/25/18 after 9 days. Cefepime and Flagyl discontinued 07/11. Repeat CXR now. Continue Vancomycin and Zosyn as above. (day 4) Duration of treatment depends on the clinical picture. Monitor renal function and for drug toxicity and dose-adjust antibiotics. Qualifiers: Pneumonia type: due to unspecified organism Laterality: bilateral Lung location: lower lobe of lung Qualified Code(s): J18.1 - Lobar pneumonia, unspecified organism (4) UTI (urinary tract infection) Current Visit: Yes Status: Acute Causative organism 06/18/18: C. albicans. Completed 14+ days of fluconazole. Repeat urine culture 07/01/18 grew E. coli, resistant to ampicillin and Unasyn. Likely secondary to jacobo catheter. Completed 7 day course of Cefepime. Qualifiers: Urinary tract infection type: site unspecified Hematuria presence: without hematuria Qualified Code(s): N39.0 - Urinary tract infection, site not specified (5) Encephalopathy Current Visit: Yes Status: Acute Etiology unclear, but likely related to sepsis. Per the patient's , the patient did have any complaints of neck pain, stiffness, or headache. Unable to assess mental status since the patient remains intubated and sedated. CT head negative for intracranial abnormality. 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 LP attempted by the pulm/CC team and IR was unsuccessful. Neurology consulted. Appreciate recommendations. Signed off. Acyclovir stopped by the pulmonary team, re-started 07/04/18. Completed 14 days of IV acyclovir. Patient awake and agitated and attempting to pull at lines against restraints. (6) LUCILA (acute kidney injury) Current Visit: Yes Status: Acute Likely multifactorial: sepsis + hypotension + other. CRRT started 06/19/18 and stopped 06/26/18. Creatinine improved. Urine output remains adequate. Nephrology consulted and following. Continue to trend. Dose-adjust medications. (7) Lactic acidosis Current Visit: Yes Status: Resolved Likely secondary to sepsis. Resolved. (8) Thrombocytopenia Current Visit: Yes Status: Resolved Likely secondary to sepsis. LFTs abnormal on admission. Repeat LFTs normal. Resolved Continue to trend. No acute bleeding noted on exam. Further workup and management per the primary team. (9) Acute respiratory failure with hypoxemia Current Visit: Yes Status: Acute Likely secondary to PNA vs. pulmonary edema. Extubated 07/01/18. Re-intubated 07/04/18. Status post trach/PEG 07/11/18. Management per the pulmonary team. (10) Hypokalemia Current Visit: Yes Status: Resolved Replacement per the primary team. (11) Elevated troponin Current Visit: Yes Status: Acute Management per the primary team. (12) Type 2 diabetes mellitus Current Visit: Yes Status: Chronic Recommend aggressive glucose monitoring and control. Management per the primary team. 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 PCR positive for HSV 1. New lesion noted to the right nasolabial fold: HSV vs. other. Completed 14 days of acyclovir. Resolved. (15) Sinusitis Current Visit: Yes Status: Acute CT of the head 06/23/18 showed sinusitis of the bilateral sphenoid and ethmoid sinuses. Causative organism unclear. Treated with 9 days of Vanc and Zosyn. Repeat CT head 07/10/18 showed opacification of the left sphenoid sinus. Continue Vanc and Zosyn as above. Recommend ENT to evaluate. Qualifiers: Sinusitis location: unspecified location Chronicity: acute Recurrence: non-recurrent Qualified Code(s): J01.90 - Acute sinusitis, unspecified (16) Mastoiditis Current Visit: Yes Status: Suspected CT head showed opacitification of the left mastoid air cells concerning for mastoiditis. Recommend ENT to evaluate. Qualifiers: Laterality: left Qualified Code(s): H70.92 - Unspecified mastoiditis, left ear - Subjective Interval history: Patient seen and examined. Weekend notes reviewed. Tachycardic this morning, but sedation appears light and patient is very restless. Follows some commands, but does not respond to ROS questions. Status post trach and PEG over the weekend. Infect Dis PN-Objective Data - Labs CBC & Chem 7: 07/15/18 04:00 07/15/18 04:00 Labs: Laboratory Results - last 24 hr 07/10/18 07/10/18 07/13/18 11:14 11:14 11:29 WBC RBC Hgb Hct MCV MCH MCHC RDW Plt Count MPV Immature Gran % Seg Neutrophils % Lymphocytes % Monocytes % Eosinophils % Basophils % Neutrophils # Lymphocytes # Monocytes # Eosinophils # Basophils # Sodium Potassium Chloride Carbon Dioxide BUN Creatinine Est GFR ( Amer) Est GFR (Non-Af Amer) BUN/Creatinine Ratio Glucose POC Glucose 137 H Calculated Osmolality Calcium Phosphorus Magnesium Human Growth Hormone 0.17 ACTH 21 07/13/18 07/13/18 07/13/18 16:10 19:24 23:09 WBC RBC Hgb Hct MCV MCH MCHC RDW Plt Count MPV Immature Gran % Seg Neutrophils % Lymphocytes % Monocytes % Eosinophils % Basophils % Neutrophils # Lymphocytes # Monocytes # Eosinophils # Basophils # Sodium 156 H Potassium Chloride Carbon Dioxide BUN Creatinine Est GFR ( Amer) Est GFR (Non-Af Amer) BUN/Creatinine Ratio Glucose POC Glucose 190 H 151 H Calculated Osmolality Calcium Phosphorus Magnesium Human Growth Hormone ACTH 07/13/18 07/14/18 07/14/18 23:26 03:47 04:50 WBC 8.1 RBC 2.32 L Hgb 7.2 L Hct 23.6 L MCV 101.7 H MCH 31.0 MCHC 30.5 L RDW 15.9 H Plt Count 270 MPV 12.3 Immature Gran % 1.4 Seg Neutrophils % 52.7 Lymphocytes % 23.5 Monocytes % 9.2 Eosinophils % 12.6 Basophils % 0.6 Neutrophils # 4.3 Lymphocytes # 1.9 Monocytes # 0.8 Eosinophils # 1.0 H Basophils # 0.1 Sodium Potassium Chloride Carbon Dioxide BUN Creatinine Est GFR ( Amer) Est GFR (Non-Af Amer) BUN/Creatinine Ratio Glucose POC Glucose 160 H 201 H Calculated Osmolality Calcium Phosphorus Magnesium Human Growth Hormone ACTH 07/14/18 07/14/18 04:50 07:57 WBC RBC Hgb Hct MCV MCH MCHC RDW Plt Count MPV Immature Gran % Seg Neutrophils % Lymphocytes % Monocytes % Eosinophils % Basophils % Neutrophils # Lymphocytes # Monocytes # Eosinophils # Basophils # Sodium 152 H Potassium 3.4 L Chloride 117 H Carbon Dioxide 28 BUN 32 H Creatinine 1.37 H Est GFR ( Amer) > 60 Est GFR (Non-Af Amer) 54 L BUN/Creatinine Ratio 23 Glucose 234 H POC Glucose 226 H Calculated Osmolality 328 H Calcium 9.0 Phosphorus 3.3 Magnesium 1.7 Human Growth Hormone ACTH Cultures: Cultures 07/11/18 05:11 Blood Culture - Preliminary Peripheral Venipuncture Culture is incubating and being continuously monitored for growth. Final report to follow. 07/11/18 05:20 Blood Culture - Preliminary Central Venous Catheter Culture is incubating and being continuously monitored for growth. Final report to follow. 07/04/18 11:59 Blood Culture - Final Peripheral Venipuncture No growth. Final report. 07/04/18 10:34 Blood Culture - Final Peripheral Venipuncture No growth. Final report. 07/04/18 07:38 Sputum Culture - Final Aspirate Acinetobacter baumannii complx 07/01/18 09:03 Urine Culture - Final Urine,Catheterized Escherichia coli 06/24/18 11:35 Blood Culture - Final Peripheral Venipuncture No growth. Final report. 06/24/18 11:35 Blood Culture - Final Peripheral Venipuncture No growth. Final report. 06/19/18 12:46 Blood Culture - Final Peripheral Venipuncture No growth. Final report. 06/19/18 12:46 Blood Culture - Final Peripheral Venipuncture No growth. Final report. 06/18/18 20:45 Sputum Culture - Final Sputum 06/20/18 11:30 Legionella Antigen - Final Urine,[place] Streptococcus pneumoniae Antigen (M - Final Serology 07/11/18 07/10/18 07/10/18 Range/Units 05:22 08:30 08:30 Urine Color Yellow (Yellow) Urine Clarity Hazy (Clear) Urine pH 5.5 (5.0-8.0) pH Units Ur Specific [place] 1.013 (1.010-1.025) Urine Protein 30 H (Neg-Trace) mg/dL Urine Glucose (UA) Normal (Normal) mg/dL Urine Ketones Negative (Negative) mg/dL Urine Blood Large H (Negative) Urine Nitrite Negative (Negative) Urine Bilirubin Negative (Negative) Urine Urobilinogen Normal (Normal) mg/dL Ur Leukocyte Esterase Small H (Negative) Urine Microscopic RBC 0-3 (0-3) per hpf Urine Microscopic WBC 5-15 H (0-3) per hpf Ur Eosinophil Smear (None Seen) % Ur Squamous Epith Cells Many H (None-Few) per lpf Urine Bacteria Few (None-Few) per hpf Hyaline Casts None Seen (None-Few) per lpf Ur Culture Indicated? NO. A (NO) Urine Osmolality 287 L (300-1090) mOsm/kg Urine Creatinine mg/dL Protein/Creatinin Ratio (0.00-0.20) mg/mg Urine Sodium 57.9 mEq/L Urine Potassium mEq/L Urine Chloride mEq/L Urine Total Protein (1-14) mg/dL Nasal Screen MRSA (PCR) (Negative) Chlamy pneumoniae PCR (Not Detect) Adenovirus (PCR) (Not Detect) B. pertussis DNA (PCR) (Not Detect) B.parapertussis DNA PCR (Not Detect) Coronavirus OC43 (PCR) (Not Detect) Coronavirus HKU1 (PCR) (Not Detect) Coronavirus 229E (PCR) (Not Detect) Coronavirus NL63 (PCR) (Not Detect) Hep Bs Antigen (Nonreactive) Hep Bs Antibody mIU/mL Herpes Simplex Source HSV I (Not Detect) HSV II (Not Detect) HIV Ag/Ab Combo Qual (Nonreactive) Human Metapneumovir PCR (Not Detect) Influenza A (H1) PCR (Not Detect) Influ A (H1N1/09) PCR (Not Detect) Influenza A (H3) PCR (Not Detect) Influenza A Untype (PCR) (Not Detect) Influenza Type B (PCR) (Not Detect) M.pneumoniae DNA (PCR) (Not Detect) Parainfluenza 1 (PCR) (Not Detect) Parainfluenza 2 (PCR) (Not Detect) Parainfluenza 3 (PCR) (Not Detect) Parainfluenza 4 (PCR) (Not Detect) RSV (PCR) (Not Detect) Entero/Rhino (PCR) (Not Detect) 07/09/18 07/09/18 07/05/18 Range/Units 10:00 10:00 17:50 Urine Color (Yellow) Urine Clarity (Clear) Urine pH (5.0-8.0) pH Units Ur Specific [place] (1.010-1.025) Urine Protein (Neg-Trace) mg/dL Urine Glucose (UA) (Normal) mg/dL Urine Ketones (Negative) mg/dL Urine Blood (Negative) Urine Nitrite (Negative) Urine Bilirubin (Negative) Urine Urobilinogen (Normal) mg/dL Ur Leukocyte Esterase (Negative) Urine Microscopic RBC (0-3) per hpf Urine Microscopic WBC (0-3) per hpf Ur Eosinophil Smear (None Seen) % Ur Squamous Epith Cells (None-Few) per lpf Urine Bacteria (None-Few) per hpf Hyaline Casts (None-Few) per lpf Ur Culture Indicated? (NO) Urine Osmolality 137 L (300-1090) mOsm/kg Urine Creatinine mg/dL Protein/Creatinin Ratio (0.00-0.20) mg/mg Urine Sodium 39.1 mEq/L Urine Potassium mEq/L Urine Chloride mEq/L Urine Total Protein (1-14) mg/dL Nasal Screen MRSA (PCR) Negative (Negative) Chlamy pneumoniae PCR (Not Detect) Adenovirus (PCR) (Not Detect) B. pertussis DNA (PCR) (Not Detect) B.parapertussis DNA PCR (Not Detect) Coronavirus OC43 (PCR) (Not Detect) Coronavirus HKU1 (PCR) (Not Detect) Coronavirus 229E (PCR) (Not Detect) Coronavirus NL63 (PCR) (Not Detect) Hep Bs Antigen (Nonreactive) Hep Bs Antibody mIU/mL Herpes Simplex Source HSV I (Not Detect) HSV II (Not Detect) HIV Ag/Ab Combo Qual (Nonreactive) Human Metapneumovir PCR (Not Detect) Influenza A (H1) PCR (Not Detect) Influ A (H1N1/09) PCR (Not Detect) Influenza A (H3) PCR (Not Detect) Influenza A Untype (PCR) (Not Detect) Influenza Type B (PCR) (Not Detect) M.pneumoniae DNA (PCR) (Not Detect) Parainfluenza 1 (PCR) (Not Detect) Parainfluenza 2 (PCR) (Not Detect) Parainfluenza 3 (PCR) (Not Detect) Parainfluenza 4 (PCR) (Not Detect) RSV (PCR) (Not Detect) Entero/Rhino (PCR) (Not Detect) 07/01/18 06/30/18 06/30/18 Range/Units 09:03 09:34 09:34 Urine Color Yellow (Yellow) Urine Clarity Clear (Clear) Urine pH 7.0 (5.0-8.0) pH Units Ur Specific [place] < 1.005 L (1.010-1.025) Urine Protein Trace (Neg-Trace) mg/dL Urine Glucose (UA) Normal (Normal) mg/dL Urine Ketones Negative (Negative) mg/dL Urine Blood Moderate H (Negative) Urine Nitrite Negative (Negative) Urine Bilirubin Negative (Negative) Urine Urobilinogen Normal (Normal) mg/dL Ur Leukocyte Esterase Moderate H (Negative) Urine Microscopic RBC 3-5 H (0-3) per hpf Urine Microscopic WBC 50-100 H (0-3) per hpf Ur Eosinophil Smear 0 (None Seen) % Ur Squamous Epith Cells None Seen (None-Few) per lpf Urine Bacteria Many H (None-Few) per hpf Hyaline Casts None Seen (None-Few) per lpf Ur Culture Indicated? (NO) Urine Osmolality (300-1090) mOsm/kg Urine Creatinine 31 mg/dL Protein/Creatinin Ratio 1.68 H (0.00-0.20) mg/mg Urine Sodium 40.6 mEq/L Urine Potassium mEq/L Urine Chloride mEq/L Urine Total Protein 52 H (1-14) mg/dL Nasal Screen MRSA (PCR) (Negative) Chlamy pneumoniae PCR (Not Detect) Adenovirus (PCR) (Not Detect) B. pertussis DNA (PCR) (Not Detect) B.parapertussis DNA PCR (Not Detect) Coronavirus OC43 (PCR) (Not Detect) Coronavirus HKU1 (PCR) (Not Detect) Coronavirus 229E (PCR) (Not Detect) Coronavirus NL63 (PCR) (Not Detect) Hep Bs Antigen (Nonreactive) Hep Bs Antibody mIU/mL Herpes Simplex Source HSV I (Not Detect) HSV II (Not Detect) HIV Ag/Ab Combo Qual (Nonreactive) Human Metapneumovir PCR (Not Detect) Influenza A (H1) PCR (Not Detect) Influ A (H1N1/09) PCR (Not Detect) Influenza A (H3) PCR (Not Detect) Influenza A Untype (PCR) (Not Detect) Influenza Type B (PCR) (Not Detect) M.pneumoniae DNA (PCR) (Not Detect) Parainfluenza 1 (PCR) (Not Detect) Parainfluenza 2 (PCR) (Not Detect) Parainfluenza 3 (PCR) (Not Detect) Parainfluenza 4 (PCR) (Not Detect) RSV (PCR) (Not Detect) Entero/Rhino (PCR) (Not Detect) 06/30/18 06/24/18 06/24/18 Range/Units 09:33 15:10 11:15 Urine Color Yellow (Yellow) Urine Clarity Hazy (Clear) Urine pH 6.0 (5.0-8.0) pH Units Ur Specific [place] 1.013 (1.010-1.025) Urine Protein 30 H (Neg-Trace) mg/dL Urine Glucose (UA) Normal (Normal) mg/dL Urine Ketones Negative (Negative) mg/dL Urine Blood Moderate H (Negative) Urine Nitrite Negative (Negative) Urine Bilirubin Small H (Negative) Urine Urobilinogen Normal (Normal) mg/dL Ur Leukocyte Esterase Moderate H (Negative) Urine Microscopic RBC 3-5 H (0-3) per hpf Urine Microscopic WBC 50-100 H (0-3) per hpf Ur Eosinophil Smear (None Seen) % Ur Squamous Epith Cells Many H (None-Few) per lpf Urine Bacteria None Seen (None-Few) per hpf Hyaline Casts None Seen (None-Few) per lpf Ur Culture Indicated? (NO) Urine Osmolality 200 L (300-1090) mOsm/kg Urine Creatinine mg/dL Protein/Creatinin Ratio (0.00-0.20) mg/mg Urine Sodium mEq/L Urine Potassium mEq/L Urine Chloride mEq/L Urine Total Protein (1-14) mg/dL Nasal Screen MRSA (PCR) (Negative) Chlamy pneumoniae PCR (Not Detect) Adenovirus (PCR) (Not Detect) B. pertussis DNA (PCR) (Not Detect) B.parapertussis DNA PCR (Not Detect) Coronavirus OC43 (PCR) (Not Detect) Coronavirus HKU1 (PCR) (Not Detect) Coronavirus 229E (PCR) (Not Detect) Coronavirus NL63 (PCR) (Not Detect) Hep Bs Antigen (Nonreactive) Hep Bs Antibody mIU/mL Herpes Simplex Source [place] HSV I DETECTED A (Not Detect) HSV II Not Detected (Not Detect) HIV Ag/Ab Combo Qual (Nonreactive) Human Metapneumovir PCR (Not Detect) Influenza A (H1) PCR (Not Detect) Influ A (H1N1/09) PCR (Not Detect) Influenza A (H3) PCR (Not Detect) Influenza A Untype (PCR) (Not Detect) Influenza Type B (PCR) (Not Detect) M.pneumoniae DNA (PCR) (Not Detect) Parainfluenza 1 (PCR) (Not Detect) Parainfluenza 2 (PCR) (Not Detect) Parainfluenza 3 (PCR) (Not Detect) Parainfluenza 4 (PCR) (Not Detect) RSV (PCR) (Not Detect) Entero/Rhino (PCR) (Not Detect) 06/23/18 06/23/18 06/20/18 Range/Units 20:00 08:10 11:30 Urine Color (Yellow) Urine Clarity (Clear) Urine pH (5.0-8.0) pH Units Ur Specific [place] (1.010-1.025) Urine Protein (Neg-Trace) mg/dL Urine Glucose (UA) (Normal) mg/dL Urine Ketones (Negative) mg/dL Urine Blood (Negative) Urine Nitrite (Negative) Urine Bilirubin (Negative) Urine Urobilinogen (Normal) mg/dL Ur Leukocyte Esterase (Negative) Urine Microscopic RBC (0-3) per hpf Urine Microscopic WBC (0-3) per hpf Ur Eosinophil Smear (None Seen) % Ur Squamous Epith Cells (None-Few) per lpf Urine Bacteria (None-Few) per hpf Hyaline Casts (None-Few) per lpf Ur Culture Indicated? (NO) Urine Osmolality (300-1090) mOsm/kg Urine Creatinine mg/dL Protein/Creatinin Ratio (0.00-0.20) mg/mg Urine Sodium mEq/L Urine Potassium mEq/L Urine Chloride mEq/L Urine Total Protein (1-14) mg/dL Nasal Screen MRSA (PCR) (Negative) Chlamy pneumoniae PCR Not Detected (Not Detect) Adenovirus (PCR) Not Detected (Not Detect) B. pertussis DNA (PCR) Not Detected (Not Detect) B.parapertussis DNA PCR Not Detected (Not Detect) Coronavirus OC43 (PCR) Not Detected (Not Detect) Coronavirus HKU1 (PCR) Not Detected (Not Detect) Coronavirus 229E (PCR) Not Detected (Not Detect) Coronavirus NL63 (PCR) Not Detected (Not Detect) Hep Bs Antigen Nonreactive (Nonreactive) Hep Bs Antibody 0.00 mIU/mL Herpes Simplex Source HSV I (Not Detect) HSV II (Not Detect) HIV Ag/Ab Combo Qual Nonreactive (Nonreactive) Human Metapneumovir PCR Not Detected (Not Detect) Influenza A (H1) PCR Not Detected (Not Detect) Influ A (H1N1/09) PCR Not Detected (Not Detect) Influenza A (H3) PCR Not Detected (Not Detect) Influenza A Untype (PCR) Not Detected (Not Detect) Influenza Type B (PCR) Not Detected (Not Detect) M.pneumoniae DNA (PCR) Not Detected (Not Detect) Parainfluenza 1 (PCR) Not Detected (Not Detect) Parainfluenza 2 (PCR) Not Detected (Not Detect) Parainfluenza 3 (PCR) Not Detected (Not Detect) Parainfluenza 4 (PCR) Not Detected (Not Detect) RSV (PCR) Not Detected (Not Detect) Entero/Rhino (PCR) Not Detected (Not Detect) 06/18/18 06/18/18 06/17/18 Range/Units 10:28 10:28 18:15 Urine Color (Yellow) Urine Clarity (Clear) Urine pH (5.0-8.0) pH Units Ur Specific [place] (1.010-1.025) Urine Protein (Neg-Trace) mg/dL Urine Glucose (UA) (Normal) mg/dL Urine Ketones (Negative) mg/dL Urine Blood (Negative) Urine Nitrite (Negative) Urine Bilirubin (Negative) Urine Urobilinogen (Normal) mg/dL Ur Leukocyte Esterase (Negative) Urine Microscopic RBC (0-3) per hpf Urine Microscopic WBC (0-3) per hpf Ur Eosinophil Smear (None Seen) % Ur Squamous Epith Cells (None-Few) per lpf Urine Bacteria (None-Few) per hpf Hyaline Casts (None-Few) per lpf Ur Culture Indicated? (NO) Urine Osmolality 343 (300-1090) mOsm/kg Urine Creatinine mg/dL Protein/Creatinin Ratio (0.00-0.20) mg/mg Urine Sodium 128.8 mEq/L Urine Potassium 36.5 7.5 mEq/L Urine Chloride 135 mEq/L Urine Total Protein (1-14) mg/dL Nasal Screen MRSA (PCR) (Negative) Chlamy pneumoniae PCR (Not Detect) Adenovirus (PCR) (Not Detect) B. pertussis DNA (PCR) (Not Detect) B.parapertussis DNA PCR (Not Detect) Coronavirus OC43 (PCR) (Not Detect) Coronavirus HKU1 (PCR) (Not Detect) Coronavirus 229E (PCR) (Not Detect) Coronavirus NL63 (PCR) (Not Detect) Hep Bs Antigen (Nonreactive) Hep Bs Antibody mIU/mL Herpes Simplex Source HSV I (Not Detect) HSV II (Not Detect) HIV Ag/Ab Combo Qual (Nonreactive) Human Metapneumovir PCR (Not Detect) Influenza A (H1) PCR (Not Detect) Influ A (H1N1/09) PCR (Not Detect) Influenza A (H3) PCR (Not Detect) Influenza A Untype (PCR) (Not Detect) Influenza Type B (PCR) (Not Detect) M.pneumoniae DNA (PCR) (Not Detect) Parainfluenza 1 (PCR) (Not Detect) Parainfluenza 2 (PCR) (Not Detect) Parainfluenza 3 (PCR) (Not Detect) Parainfluenza 4 (PCR) (Not Detect) RSV (PCR) (Not Detect) Entero/Rhino (PCR) (Not Detect) 06/17/18 06/17/18 Range/Units 11:56 11:30 Urine Color (Yellow) Urine Clarity (Clear) Urine pH (5.0-8.0) pH Units Ur Specific [place] (1.010-1.025) Urine Protein (Neg-Trace) mg/dL Urine Glucose (UA) (Normal) mg/dL Urine Ketones (Negative) mg/dL Urine Blood (Negative) Urine Nitrite (Negative) Urine Bilirubin (Negative) Urine Urobilinogen (Normal) mg/dL Ur Leukocyte Esterase (Negative) Urine Microscopic RBC (0-3) per hpf Urine Microscopic WBC (0-3) per hpf Ur Eosinophil Smear (None Seen) % Ur Squamous Epith Cells (None-Few) per lpf Urine Bacteria (None-Few) per hpf Hyaline Casts (None-Few) per lpf Ur Culture Indicated? (NO) Urine Osmolality (300-1090) mOsm/kg Urine Creatinine mg/dL Protein/Creatinin Ratio (0.00-0.20) mg/mg Urine Sodium mEq/L Urine Potassium mEq/L Urine Chloride mEq/L Urine Total Protein (1-14) mg/dL Nasal Screen MRSA (PCR) Negative (Negative) Chlamy pneumoniae PCR Not Detected (Not Detect) Adenovirus (PCR) Not Detected (Not Detect) B. pertussis DNA (PCR) Not Detected (Not Detect) B.parapertussis DNA PCR Not Detected (Not Detect) Coronavirus OC43 (PCR) Not Detected (Not Detect) Coronavirus HKU1 (PCR) Not Detected (Not Detect) Coronavirus 229E (PCR) Not Detected (Not Detect) Coronavirus NL63 (PCR) Not Detected (Not Detect) Hep Bs Antigen (Nonreactive) Hep Bs Antibody mIU/mL Herpes Simplex Source HSV I (Not Detect) HSV II (Not Detect) HIV Ag/Ab Combo Qual (Nonreactive) Human Metapneumovir PCR Not Detected (Not Detect) Influenza A (H1) PCR Not Detected (Not Detect) Influ A (H1N1/09) PCR Not Detected (Not Detect) Influenza A (H3) PCR Not Detected (Not Detect) Influenza A Untype (PCR) Not Detected (Not Detect) Influenza Type B (PCR) Not Detected (Not Detect) M.pneumoniae DNA (PCR) Not Detected (Not Detect) Parainfluenza 1 (PCR) Not Detected (Not Detect) Parainfluenza 2 (PCR) Not Detected (Not Detect) Parainfluenza 3 (PCR) Not Detected (Not Detect) Parainfluenza 4 (PCR) Not Detected (Not Detect) RSV (PCR) Not Detected (Not Detect) Entero/Rhino (PCR) Not Detected (Not Detect) Exam - Constitutional Vitals: Temp Pulse Resp BP Pulse Ox 98.3 F 95 23 117/61 96 07/14/18 08:00 07/14/18 08:00 07/14/18 08:00 07/14/18 08:00 07/14/18 08:00 General appearance: cooperative, no acute distress, obese - Head Head exam: Present: atraumatic, normal inspection, normocephalic - Eye Eye exam: Present: EOMI, normal appearance, PERRL Pupils: Present: normal accommodation - ENT ENT exam: Present: mucous membranes dry - Neck Neck exam: Present: normal inspection Additional comments: Tracheostomy midline with O2 via the ventilator. Temporary HD catheter noted to the right neck with transparent dressing C/D/I. - Respiratory Respiratory exam: Present: CTAB. Absent: rales, respiratory distress, rhonchi, wheezes - Cardiovascular Cardiovascular exam: Present: +S1, +S2, tachycardia. Absent: irregular rhythm - GI/Abdominal GI/Abdominal exam: Present: distended, normal bowel sounds, soft. Absent: tenderness Additional comments: Jacobo catheter noted to be draining clear yellow urine with some sediment. Rectal tube with small amount of liquid brown stool noted. - Extremities Exam Extremities exam: Present: normal inspection. Absent: joint swelling, pedal edema, tenderness - Neurological Exam Neurological exam: Present: alert, no focal deficits (TORRES x 4 on command) - Psychiatric Psychiatric exam: Present: agitated - Skin Skin exam: Present: dry, intact, normal color, warm - VTE Documentation of Mechanical Device: Intermittent pneumatic compression device Consult Discharge Plan - Plan Referrals: Sheryl Stahl TURNSTILE ATTENDANT [Primary Care Provider] - - Attending Attestation I examined this patient and my medical decision-making was reviewed with the Resident Physician. I agree with the documented findings, disposition and treatment plan as described except to the extent set forth below.
[2018-07-14] MEDS: DESMOPRESSIN IVPB SCH (10:05)
[2018-07-14] MEDS: SODIUM CHLORIDE 0.9% IVPB SCH (10:05)
--- NOTE | 2018-07-14 10:42 | Nephrology Progress Note ---
Date of Encounter: 07/14/18 Time of Encounter: 08:45 - Assessment and Plan (1) LUCILA (acute kidney injury) Current Visit: Yes Status: Acute Polyuric LUCILA, continues to improve with improved hydration status. Appears to be primarily prerenal at this point Serum creatinine continues to decrease, 1.37 today which is down from previous Patient does appear dry at this time, has wrinkles on his skin and dry mucous membranes He continues to have hypernatremia consistent with loss of free water, however this has decreased substantially from prior with addition of DDAVP Plan: -No indication for acute hemodialysis at this time, and we will remove temporary hemodialysis catheter today -Serum creatinine likely in response to persistent hypovolemia however this is improving dramatically with DDAVP and free water -Recommend continued free water pushes at 400 mL every 4 hours, recommend continued D5 water at 70 mL an hour -We will likely decrease or stop IV fluids tomorrow. Our goal is to get to complete enteric hydration -If the patient's sodium continues to drop and hydration status improves with improving serum creatinine, we will likely sign off -Recommend avoiding nephrotoxic agents as possible, renally dose medications as appropriate (2) Diabetes insipidus, neurohypophyseal Current Visit: Yes Status: Suspected Suspected diabetes insipidus given duration of polyuric phase Continues to respond appropriately to DDAVP, currently on maintenance dose of 4 g per day. Serum sodium has continued to fall to 152 now that free water pushes have been continued Urine output has decreased with DDAVP, 1750 yesterday Plan -Recommend continued use of 4 g DDAVP daily. Can change formulation as needed -Continue free water pushes at 400 mL every 4 hours, status post PEG (3) Acute respiratory failure with hypoxemia Current Visit: Yes Status: Acute Hypoxic respiratory failure, status post tracheostomy 07/11/18 Management per critical care team (4) Anemia Current Visit: Yes Status: Acute Severe iron deficiency anemia Patient was started on ferrous sulfate 07/13/18 Although IV iron would be more efficacious, the patient does have a very substantial elevation in ferritin Additionally, the patient's been started on vancomycin due to concern for infection by ID Continue to monitor, consider IV iron moving forward with possible Qualifiers: Anemia type: iron deficiency Iron deficiency anemia type: unspecified iron deficiency Qualified Code(s): D50.9 - Iron deficiency anemia, unspecified Subjective Principal diagnosis: septic shock Interval history: Status post tracheostomy 07/11/18. Patient is resting in bed, he is restless. Does not appear to have any acute problems. Objective - Vital Signs Vital signs: Vital Signs Temp Pulse Resp BP Pulse Ox 07/14/18 09:35 33 146/77 96 07/14/18 08:00 98.3 F 95 23 117/61 96 07/14/18 07:15 30 144/95 97 07/14/18 07:00 98 26 144/95 95 07/14/18 06:30 18 95 07/14/18 06:00 95 22 119/45 97 07/14/18 05:00 91 17 113/66 97 07/14/18 04:00 98.4 F 118 20 110/70 98 07/14/18 03:27 16 95/64 98 07/14/18 03:00 58 16 93/62 98 07/14/18 02:00 69 16 112/74 98 07/14/18 01:04 17 150/84 98 07/14/18 01:00 114 27 150/84 93 07/14/18 00:05 99.0 F 07/14/18 00:00 112 25 139/82 98 07/13/18 23:27 17 111/70 97 07/13/18 23:00 77 17 111/70 95 07/13/18 22:00 79 16 116/70 95 07/13/18 21:20 96 07/13/18 21:07 17 97 07/13/18 21:00 105 22 134/84 100 07/13/18 20:00 115 20 137/72 96 07/13/18 19:59 98.2 F 114 21 137/79 97 18 19:39 20 149/69 96 07/13/18 18:00 98 23 149/69 96 07/13/18 17:31 28 104/72 97 07/13/18 17:00 74 19 105/64 96 07/13/18 16:00 99.0 F 93 20 90/60 96 07/13/18 15:27 16 93/59 97 07/13/18 15:00 85 18 93/59 98 07/13/18 14:00 66 16 86/60 96 07/13/18 13:20 18 103/68 95 07/13/18 13:00 74 16 103/82 09/16/18 12:00 89 18 116/72 96 07/13/18 11:26 19 112/77 95 07/13/18 11:00 98.6 F 90 20 112/77 95 Intake and Output 07/13/18 07/14/18 07/14/18 23:59 07:59 15:59 Intake Total 1820 / 1820 2300 / 2300 1850 / 1850 Output Total 900 / 900 800 / 800 450 / 450 Balance 920 / 920 1500 / 1500 1400 / 1400 Intake: IV Fluids 250 / 250 300 / 300 1100 / 1100 Dextrose 5% 1,000 ML @ 125 mls/ 1000 / 1000 hr IVC .Q8H NADIA Rx#:[id number] PRECEDEX Premix 400 mcg In 100 200 / 200 200 / 200 100 / 100 ml @ 0.2 MCG/KG/HR 5.45 mls/hr IVC .[id number] NADIA Rx#:[id number] FentaNYL (PF) 2,500 MCG In 50 / 50 Empty Bag 1 Each @ 50 MCG/HR 1 mls/hr IVC CONT NADIA Rx#: [id number] Zosyn 3.375 GM In 0.9 % Sodium 100 / 100 Chloride (Mini-Bag +) 100 ML @ 25 mls/hr IVPB Q8H NADIA Rx#: [id number] Tube Feeding 70 / 70 250 / 250 Free Water 500 / 500 500 / 500 Free Water Intake Amount 1000 / 1000 2000 / 2000 Output: Rectal Tube 0 / 0 50 / 50 Catheter 900 / 900 800 / 800 400 / 400 Other: Weight 106.6 kg Blood Glucose* 151 226 Patient Weight 07/14/18 23:59 Weight 106.6 kg - General Appearance Exam: Gen: Vitals noted. No acute distress. Alert. HEENT: Normocephalic, atraumatic. Dry mucous membranes. Oral ulcerations present Neck: Supple. No adenopathy. Right internal jugular temporary hemodialysis catheter in place with no erythema surrounding. Tracheostomy in place Cardiac: RRR, no murmur, +S1/S2 Pulmonary: Rhonchi present bilaterally, no wheezes present Abdomen: soft, nontender, no guarding Extremities: 1+ bilateral lower extremity edema, nontender calf, no cyanosis or clubbing Neuro: Patient is alert, however does not speak. Orientation cannot be assessed. Does follow some commands. - Lab 07/14/18 04:50 07/14/18 04:50 Most recent lab results ABG pH 7.38 pH Units (7.32-7.45) 07/12/18 05:14 ABG pCO2 52 mmHg (35-45) H 07/12/18 05:14 ABG pO2 68 mmHg (85-104) L 07/12/18 05:14 ABG HCO3 31 mEq/L (21-27) H 07/12/18 05:14 ABG O2 Saturation 93 % (95-98) L 07/12/18 05:14 Calcium 9.0 mg/dL (8.6-10.3) 07/14/18 04:50 Phosphorus 3.3 mg/dL (2.7-4.5) 07/14/18 04:50 Magnesium 1.7 mg/dL (1.6-2.6) 07/14/18 04:50 Urine Creatinine 31 mg/dL 06/30/18 09:34 Urine Sodium 57.9 mEq/L 07/10/18 08:30 Urine Total Protein 52 mg/dL (1-14) H 06/30/18 09:34 - VTE Documentation of Mechanical Device: Intermittent pneumatic compression device Consult Discharge Plan - Plan Referrals: Sheryl Stahl, KAIAKO KOHANGA REO [Primary Care Provider] -
[2018-07-14] MEDS: Norepinephrine 4 MG in D5% in Water 250 ML IVC SCH (12:36)
[2018-07-14] MEDS: Scopolamine Patch 1.5 MG PATCH.TD72 TD SCH (17:15)
[2018-07-14] MEDS: FentaNYL (PF) 2,500 MCG in EMPTY BAG 1 EACH IVC SCH (17:46)
[2018-07-14] MEDS ORDERED: Insulin DETEMIR 100 UNIT/ML X5UNITS SQ SCH (21:00)
[2018-07-15] MEDS: D5% in Water 1,000 ML IVC SCH (01:20)
[2018-07-15] MEDS: Dexmedetomidine HCl 400 MCG/100 ML MLS IVC SCH ×6 (02:45→21:53)
[2018-07-15] MEDS: Piperacillin/Tazobactam 3.375 GM in 0.9 % Sodium Chloride Mini Bag 100 ML IVPB SCH ×3 (03:36→19:56)
[2018-07-15] MEDS: Artificial Tears SOLN 15 ML BOTTLE BOTH EYES SCH ×6 (03:37→23:34)
[2018-07-15] MEDS: Insulin LISPRO 300 UNITS/3 ML VIAL SQ SCH ×6 (03:44→23:34)
[2018-07-15 04:30] LABS: Basophils # 0.1 K/mcL (0.0-0.2); Basophils % 0.5 %; Eosinophils # 1.1 K/mcL (0.0-0.6); Hematocrit 22.6 % (37.5-50.1); Immature Granulocytes % 2.4 % (0-4); Lymphocytes # 2.3 K/mcL (0.6-4.6); Lymphocytes % 24.4 %; Mean Corpuscular Hemoglobin 31.1 pg (28.0-33.3); Mean Corpuscular Volume 100.4 fL (83.0-100.0); Mean Platelet Volume 12.5 fL (9.4-12.4); Monocytes # 0.8 K/mcL (0.0-1.3); Monocytes % 8.4 %; Neutrophils # 4.9 K/mcL (1.6-8.9); Nucleated Red Blood Cells 0.2 /100 WBC (0); Platelet Count 280 K/mcL (140-400); Red Blood Count 2.25 M/mcL (4.19-5.50); Red Cell Distribution Width 15.9 % (11.5-14.5); Segmented Neutrophils % 52.3 %
[2018-07-15 04:43] LABS: BUN/Creatinine Ratio 21 (6-26); Blood Urea Nitrogen 25 mg/dL (6-20); Calcium 8.3 mg/dL (8.6-10.3); Carbon Dioxide 28 mEq/L (23-29); Chloride 109 mEq/L (98-107); Glucose 272 mg/dL (70-105); Magnesium 1.5 mg/dL (1.6-2.6); Osmolality,Calculated 312 (280-300); Phosphorous 4.1 mg/dL (2.7-4.5); Potassium 3.3 mEq/L (3.5-5.1); Sodium 144 mEq/L (136-145); eGFR For Non-African Americans > 60 (> 60)
[2018-07-15] MEDS: *HR* Heparin 5,000 UNIT/ML VIAL SQ SCH ×2 (05:04→17:38)
--- NOTE | 2018-07-15 06:05 | Pulmonology Progress Note ---
Date of Encounter: 07/15/18 Subjective Principal diagnosis: septic shock Objective PUL Vital signs: Last Vital Signs Temp 97.4 F L 07/15/18 04:00 Pulse 116 07/15/18 05:00 Resp 25 07/15/18 05:09 BP 148/102 07/15/18 05:09 Pulse Ox 95 07/15/18 05:09 Ventilator Settings Ventilator Settings: Ventilator Settings, Last 8 Hours Ventilator Tidal Volume 480 Setting Ventilator Tidal Volume 480 Setting Ventilator Tidal Volume 480 Setting Ventilator Tidal Volume 480 Setting Ventilator Tidal Volume 480 Setting Ventilator Tidal Volume 480 Setting Ventilator Tidal Volume 480 Setting Ventilator Tidal Volume 480 Setting Ventilator Tidal Volume 480 Setting Ventilator Tidal Volume 480 Setting Ventilator Tidal Volume 480 Setting Ventilator Respiratory Rate 16 Setting Ventilator Respiratory Rate 16 Setting Ventilator Respiratory Rate 16 Setting Ventilator Respiratory Rate 16 Setting Ventilator Respiratory Rate 16 Setting Ventilator Respiratory Rate 16 Setting Ventilator Respiratory Rate 16 Setting Ventilator Respiratory Rate 16 Setting Ventilator Respiratory Rate 16 Setting Ventilator Respiratory Rate 16 Setting Ventilator Respiratory Rate 16 Setting Actual Respiratory Rate 24 Actual Respiratory Rate 24 Actual Respiratory Rate 30 Actual Respiratory Rate 21 Actual Respiratory Rate 16 Actual Respiratory Rate 16 Actual Respiratory Rate 16 Actual Respiratory Rate 16 Actual Respiratory Rate 16 Actual Respiratory Rate 16 Actual Respiratory Rate 17 Positive End Expiratory 5 Pressure Positive End Expiratory 5 Pressure Positive End Expiratory 5 Pressure Positive End Expiratory 5 Pressure Positive End Expiratory 5 Pressure Positive End Expiratory 5 Pressure Positive End Expiratory 5 Pressure Positive End Expiratory 5 Pressure Positive End Expiratory 5 Pressure Positive End Expiratory 5 Pressure Positive End Expiratory 5 Pressure Peak Inspiratory Airway 34 Pressure Peak Inspiratory Airway 30 Pressure Peak Inspiratory Airway 33 Pressure Peak Inspiratory Airway 24 Pressure Peak Inspiratory Airway 33 Pressure Peak Inspiratory Airway 32 Pressure Peak Inspiratory Airway 30 Pressure Peak Inspiratory Airway 32 Pressure Peak Inspiratory Airway 36 Pressure Peak Inspiratory Airway 34 Pressure Peak Inspiratory Airway 32 Pressure Results - Laboratory Findings CBC and BMP: 07/15/18 04:00 07/15/18 04:00 ABG ABG pH 7.38 pH Units (7.32-7.45) 07/12/18 05:14 ABG pCO2 52 mmHg (35-45) H 07/12/18 05:14 ABG pO2 68 mmHg (85-104) L 07/12/18 05:14 ABG O2 Saturation 93 % (95-98) L 07/12/18 05:14 PT/INR, D-dimer PT 15.6 Seconds (9.4-12.1) H 07/11/18 09:13 D-Dimer 3465 ng/mLFEU (0-500) H 06/18/18 08:08 Abnormal lab findings: Abnormal lab results RBC 2.25 M/mcL (4.19-5.50) L 07/15/18 04:00 Hgb 7.0 g/dL (12.9-16.9) L 07/15/18 04:00 Hct 22.6 % (37.5-50.1) L 07/15/18 04:00 MCV 100.4 fL (83.0-100.0) H 07/15/18 04:00 MCHC 31.0 g/dL (31.6-35.5) L 07/15/18 04:00 RDW 15.9 % (11.5-14.5) H 07/15/18 04:00 MPV 12.5 fL (9.4-12.4) H 07/15/18 04:00 Band Neutrophils % 6.0 % (0-4) H 06/27/18 03:00 Metamyelocytes % 2.0 % (0) H 06/27/18 03:00 Myelocytes % 6.0 % (0) H 06/27/18 03:00 Eosinophils # 1.1 K/mcL (0.0-0.6) H 07/15/18 04:00 Nucleated RBCs/100 WBC 0.2 /100 WBC (0) H 07/15/18 04:00 Reactive Lymphocytes Present (Not Present) A 07/01/18 03:00 Toxic Granulation Present (Not Present) A 06/18/18 03:05 Toxic Vacuolation Present (Not Present) A 06/22/18 03:45 Large Platelets Present (Not Present) A 06/23/18 03:15 Polychromasia 1+ (Not Present) A 06/27/18 03:00 Basophilic Stippling 1+ (Not Present) A 06/26/18 04:00 Anisocytosis 1+ (Not Present) A 06/28/18 03:30 Macrocytosis Present (Not Present) A 06/26/18 04:00 PT 15.6 Seconds (9.4-12.1) H 07/11/18 09:13 Fibrinogen 578 mg/dL (169-393) H 06/18/18 08:08 D-Dimer 3465 ng/mLFEU (0-500) H 06/18/18 08:08 ABG pCO2 52 mmHg (35-45) H 07/12/18 05:14 ABG pO2 68 mmHg (85-104) L 07/12/18 05:14 ABG HCO3 31 mEq/L (21-27) H 07/12/18 05:14 ABG Total CO2 32 mEq/L (20-26) H 07/12/18 05:14 ABG O2 Saturation 93 % (95-98) L 07/12/18 05:14 ABG Base Excess 5 mEq/L (-2 to 3) H 07/12/18 05:14 Potassium 3.3 mEq/L (3.5-5.1) L 07/15/18 04:00 Chloride 109 mEq/L (98-107) H 07/15/18 04:00 BUN 25 mg/dL (6-20) H 07/15/18 04:00 Glucose 272 mg/dL (70-105) H 07/15/18 04:00 POC Glucose 286 mg/dL (70-99) H 07/15/18 03:41 Serum Osmolality 310 mOsm/kg (280-300) H 07/10/18 08:30 Calculated Osmolality 312 (280-300) H 07/15/18 04:00 Calcium 8.3 mg/dL (8.6-10.3) L 07/15/18 04:00 Magnesium 1.5 mg/dL (1.6-2.6) L 07/15/18 04:00 Iron < 10 mcg/dL (65-175) L 07/01/18 03:00 Transferrin 146 mg/dL (203-362) L 07/01/18 03:00 Ferritin 647 ng/mL (20-250) H 07/01/18 03:00 Direct Bilirubin 0.4 mg/dL (0.0-0.2) H 06/23/18 03:15 Troponin I 0.92 ng/mL (< 0.04) H* 06/17/18 22:33 Albumin 2.7 g/dL (3.5-5.7) L 07/12/18 03:00 Globulin 4.0 g/dL (2.4-3.5) H 07/12/18 03:00 Albumin/Globulin Ratio 0.7 (1.1-2.2) L 07/12/18 03:00 Amylase 20 Units/L (29-103) L 06/23/18 16:27 Folate 2.5 ng/mL (3.0-16.0) L 06/27/18 11:25 Procalcitonin 107.11 ng/mL (<=0.07) H 06/17/18 16:40 TSH 7.234 mcIU/mL (0.340-5.600) H 06/27/18 11:25 Urine Protein 30 mg/dL (Neg-Trace) H 07/11/18 05:22 Urine Blood Large (Negative) H 07/11/18 05:22 Ur Leukocyte Esterase Small (Negative) H 07/11/18 05:22 Urine Microscopic WBC 5-15 per hpf (0-3) H 07/11/18 05:22 Ur Squamous Epith Cells Many per lpf (None-Few) H 07/11/18 05:22 Ur Culture Indicated? NO. (NO) A 07/11/18 05:22 Urine Osmolality 287 mOsm/kg (300-1090) L 07/10/18 08:30 Protein/Creatinin Ratio 1.68 mg/mg (0.00-0.20) H 06/30/18 09:34 Urine Total Protein 52 mg/dL (1-14) H 06/30/18 09:34 Vancomycin Trough 26 mcg/mL (5-10) H 07/13/18 07:00 Urine Opiates Screen Positive ng/mL (Oetfbq=443) H 06/18/18 10:37 U Benzodiazepines Scrn Positive ng/mL (Tmvmmk=170) H 06/18/18 10:37 HSV I DETECTED (Not Detect) A 06/24/18 15:10 - Clinical Findings Intake & Output: Intake & Output 07/14/18 07/14/18 07/15/18 15:59 23:59 07:59 Intake Total 3216 / 3216 3231 / 3231 228 / 228 Output Total 1020 / 1020 950 / 950 0 / 0 Balance 2196 / 2196 228 / [id number] / 2281 Weight 116.1 kg - VTE Documentation of Mechanical Device: Intermittent pneumatic compression device Consult Discharge Plan - Plan Referrals: Sheryl Stahl, APPRENTICE COSMETOLOGIST [Primary Care Provider] -
--- NOTE | 2018-07-15 07:21 | Pulmonology Progress Note ---
Date of Encounter: 07/15/18 Time of Encounter: 07:21 Assessment and Plan (1) Acute respiratory failure with hypoxia and hypercapnia Current Visit: Yes Status: Acute Patient seen and examined at bedside Labs, radiology, chart personally reviewed. Management was reviewed during multidisciplinary critical care rounds. 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 display evidence of mixed delirium and some chronic weakness associated with his critical illness and generally improving plan to stop propofol and they will likely need to continue some low-dose infusion of analgesia/anti-anxiolytic will wean this as possible for goal Anna 2 Pulm: Hypoxic hypercapnic respiratory failure status post tracheostomy remains vent dependent today we can trial increased amount of pressure support and see how he does with this during the day with the assist control at [facility] Cards: Hemodynamically stable continue to monitor on telemetry GI: continue GI prophylaxis; he has a rectal collection system for increased stools related to tube feed we will discuss with nutrition about increasing fiber content Nutrition: Continue enteral nutrition per dietary recommendations Renal: Hyponatremia has resolved with decreasing amount of free water the administration. Continue treatment with DDAVP for central diabetes insipidus which I suspect is manifestation of ischemia. UOP Monitored, Cont to Trend sCr and monitor Electrolytes. ID: continued treatment for Acinetobacter pneumonia and Escherichia coli UTI he is on appropriate antimicrobials infectious disease is following Heme/Onc: DVT prophylaxis given H&H and along with the platelets are stable Endo: Glucose Monitored continue basal bolus insulin dosing Integ/MSK: Skin Care per routine ICU Nursing Protocol to prevent ulcers. Lines: All lines examined without evidence of infection : Dispo: We will start discussion with family about possibility of transitioning to long-term acute care facility for prolonged rehabilitation CODE: full ] (2) Septic shock Current Visit: Yes Status: Acute (3) LUCILA (acute kidney injury) Current Visit: Yes Status: Acute (4) Type 2 diabetes mellitus Current Visit: Yes Status: Chronic Qualifiers: Diabetes mellitus ferry terminal agent insulin use: with ferry terminal agent use Diabetes mellitus complication status: with unspecified complications Qualified Code(s) : E11.8 - Type 2 diabetes mellitus with unspecified complications; Z79.4 - snf (current) use of insulin (5) Encephalopathy Current Visit: Yes Status: Acute (6) Hypernatremia Current Visit: Yes Status: Acute (7) Healthcare-associated pneumonia Current Visit: Yes Status: Acute (8) Diabetes insipidus, neurohypophyseal Current Visit: Yes Status: Suspected Subjective Principal diagnosis: septic shock Interval history: Failed SBT after about 15 minutes today. Still delirious but more awake today and able to follow my commands. Otherwise hemodynamically stable Objective PUL Vital signs: Last Vital Signs Temp 97.4 F L 07/15/18 04:00 Pulse 117 07/15/18 06:00 Resp 25 07/15/18 06:10 BP 113/95 07/15/18 06:10 Pulse Ox 97 07/15/18 06:10 General appearance: no acute distress Eyes: nonicteric Effort: normal Auscultation: bilateral: rales Cardiovascular: regular rate and rhythm Gastrointestinal: normoactive bowel sounds, soft, non-tender Integumentary: normal Extremities: pink and warm, pulses normal, edema (Trace lower extremity dependent edema) Musculoskeletal: no deformities non-focal exam, pupils equal and round other (Calm appearing) Ventilator Settings Ventilator Settings: Ventilator Settings, Last 8 Hours Ventilator Tidal Volume 480 Setting Ventilator Tidal Volume 480 Setting Ventilator Tidal Volume 480 Setting Ventilator Tidal Volume 480 Setting Ventilator Tidal Volume 480 Setting Ventilator Tidal Volume 480 Setting Ventilator Tidal Volume 480 Setting Ventilator Tidal Volume 480 Setting Ventilator Tidal Volume 480 Setting Ventilator Tidal Volume 480 Setting Ventilator Respiratory Rate 16 Setting Ventilator Respiratory Rate 16 Setting Ventilator Respiratory Rate 16 Setting Ventilator Respiratory Rate 16 Setting Ventilator Respiratory Rate 16 Setting Ventilator Respiratory Rate 16 Setting Ventilator Respiratory Rate 16 Setting Ventilator Respiratory Rate 16 Setting Ventilator Respiratory Rate 16 Setting Ventilator Respiratory Rate 16 Setting Ventilator Respiratory Rate 16 Setting Actual Respiratory Rate 25 Actual Respiratory Rate 28 Actual Respiratory Rate 24 Actual Respiratory Rate 24 Actual Respiratory Rate 30 Actual Respiratory Rate 21 Actual Respiratory Rate 16 Actual Respiratory Rate 16 Actual Respiratory Rate 16 Actual Respiratory Rate 16 Actual Respiratory Rate 16 Positive End Expiratory 5 Pressure Positive End Expiratory 5 Pressure Positive End Expiratory 5 Pressure Positive End Expiratory 5 Pressure Positive End Expiratory 5 Pressure Positive End Expiratory 5 Pressure Positive End Expiratory 5 Pressure Positive End Expiratory 5 Pressure Positive End Expiratory 5 Pressure Positive End Expiratory 5 Pressure Positive End Expiratory 5 Pressure Peak Inspiratory Airway 22 Pressure Peak Inspiratory Airway 34 Pressure Peak Inspiratory Airway 30 Pressure Peak Inspiratory Airway 33 Pressure Peak Inspiratory Airway 24 Pressure Peak Inspiratory Airway 33 Pressure Peak Inspiratory Airway 32 Pressure Peak Inspiratory Airway 30 Pressure Peak Inspiratory Airway 32 Pressure Peak Inspiratory Airway 36 Pressure Results - Laboratory Findings CBC and BMP: 07/15/18 04:00 07/15/18 04:00 ABG ABG pH 7.38 pH Units (7.32-7.45) 07/12/18 05:14 ABG pCO2 52 mmHg (35-45) H 07/12/18 05:14 ABG pO2 68 mmHg (85-104) L 07/12/18 05:14 ABG O2 Saturation 93 % (95-98) L 07/12/18 05:14 PT/INR, D-dimer PT 15.6 Seconds (9.4-12.1) H 07/11/18 09:13 D-Dimer 3465 ng/mLFEU (0-500) H 06/18/18 08:08 Abnormal lab findings: Abnormal lab results RBC 2.25 M/mcL (4.19-5.50) L 07/15/18 04:00 Hgb 7.0 g/dL (12.9-16.9) L 07/15/18 04:00 Hct 22.6 % (37.5-50.1) L 07/15/18 04:00 MCV 100.4 fL (83.0-100.0) H 07/15/18 04:00 MCHC 31.0 g/dL (31.6-35.5) L 07/15/18 04:00 RDW 15.9 % (11.5-14.5) H 07/15/18 04:00 MPV 12.5 fL (9.4-12.4) H 07/15/18 04:00 Band Neutrophils % 6.0 % (0-4) H 06/27/18 03:00 Metamyelocytes % 2.0 % (0) H 06/27/18 03:00 Myelocytes % 6.0 % (0) H 06/27/18 03:00 Eosinophils # 1.1 K/mcL (0.0-0.6) H 07/15/18 04:00 Nucleated RBCs/100 WBC 0.2 /100 WBC (0) H 07/15/18 04:00 Reactive Lymphocytes Present (Not Present) A 07/01/18 03:00 Toxic Granulation Present (Not Present) A 06/18/18 03:05 Toxic Vacuolation Present (Not Present) A 06/22/18 03:45 Large Platelets Present (Not Present) A 06/23/18 03:15 Polychromasia 1+ (Not Present) A 06/27/18 03:00 Basophilic Stippling 1+ (Not Present) A 06/26/18 04:00 Anisocytosis 1+ (Not Present) A 06/28/18 03:30 Macrocytosis Present (Not Present) A 06/26/18 04:00 PT 15.6 Seconds (9.4-12.1) H 07/11/18 09:13 Fibrinogen 578 mg/dL (169-393) H 06/18/18 08:08 D-Dimer 3465 ng/mLFEU (0-500) H 06/18/18 08:08 ABG pCO2 52 mmHg (35-45) H 07/12/18 05:14 ABG pO2 68 mmHg (85-104) L 07/12/18 05:14 ABG HCO3 31 mEq/L (21-27) H 07/12/18 05:14 ABG Total CO2 32 mEq/L (20-26) H 07/12/18 05:14 ABG O2 Saturation 93 % (95-98) L 07/12/18 05:14 ABG Base Excess 5 mEq/L (-2 to 3) H 07/12/18 05:14 Potassium 3.3 mEq/L (3.5-5.1) L 07/15/18 04:00 Chloride 109 mEq/L (98-107) H 07/15/18 04:00 BUN 25 mg/dL (6-20) H 07/15/18 04:00 Glucose 272 mg/dL (70-105) H 07/15/18 04:00 POC Glucose 286 mg/dL (70-99) H 07/15/18 03:41 Serum Osmolality 310 mOsm/kg (280-300) H 07/10/18 08:30 Calculated Osmolality 312 (280-300) H 07/15/18 04:00 Calcium 8.3 mg/dL (8.6-10.3) L 07/15/18 04:00 Magnesium 1.5 mg/dL (1.6-2.6) L 07/15/18 04:00 Iron < 10 mcg/dL (65-175) L 07/01/18 03:00 Transferrin 146 mg/dL (203-362) L 07/01/18 03:00 Ferritin 647 ng/mL (20-250) H 07/01/18 03:00 Direct Bilirubin 0.4 mg/dL (0.0-0.2) H 06/23/18 03:15 Troponin I 0.92 ng/mL (< 0.04) H* 06/17/18 22:33 Albumin 2.7 g/dL (3.5-5.7) L 07/12/18 03:00 Globulin 4.0 g/dL (2.4-3.5) H 07/12/18 03:00 Albumin/Globulin Ratio 0.7 (1.1-2.2) L 07/12/18 03:00 Amylase 20 Units/L (29-103) L 06/23/18 16:27 Folate 2.5 ng/mL (3.0-16.0) L 06/27/18 11:25 Procalcitonin 107.11 ng/mL (<=0.07) H 06/17/18 16:40 TSH 7.234 mcIU/mL (0.340-5.600) H 06/27/18 11:25 Urine Protein 30 mg/dL (Neg-Trace) H 07/11/18 05:22 Urine Blood Large (Negative) H 07/11/18 05:22 Ur Leukocyte Esterase Small (Negative) H 07/11/18 05:22 Urine Microscopic WBC 5-15 per hpf (0-3) H 07/11/18 05:22 Ur Squamous Epith Cells Many per lpf (None-Few) H 07/11/18 05:22 Ur Culture Indicated? NO. (NO) A 07/11/18 05:22 Urine Osmolality 287 mOsm/kg (300-1090) L 07/10/18 08:30 Protein/Creatinin Ratio 1.68 mg/mg (0.00-0.20) H 06/30/18 09:34 Urine Total Protein 52 mg/dL (1-14) H 06/30/18 09:34 Vancomycin Trough 26 mcg/mL (5-10) H 07/13/18 07:00 Urine Opiates Screen Positive ng/mL (Wjpypn=161) H 06/18/18 10:37 U Benzodiazepines Scrn Positive ng/mL (Wkbzqe=966) H 06/18/18 10:37 HSV I DETECTED (Not Detect) A 06/24/18 15:10 - Clinical Findings Intake & Output: Intake & Output 09/17/18 09/17/18 09/18/18 15:59 23:59 07:59 Intake Total 3216 / 3216 3231 / 3231 2482 / 2482 Output Total 1020 / 1020 950 / 950 0 / 0 Balance 2196 / 2196 2281 / 2281 2482 / 2482 Weight 116.1 kg - VTE Documentation of Mechanical Device: Intermittent pneumatic compression device Consult Discharge Plan - Plan Referrals: Sheryl Stahl, WEB DESIGNER [Primary Care Provider] -
[2018-07-15] MEDS: DESMOPRESSIN IVPB SCH (08:23)
[2018-07-15] MEDS: SODIUM CHLORIDE 0.9% IVPB SCH (08:23)
[2018-07-15] MEDS: Chlorhexidine Rinse 15 ML MOUTHWASH MM SCH ×2 (08:23→19:57)
[2018-07-15] MEDS: Potassium Chloride Elixir 20 MEQ/15 ML UDC PO SCH (08:24)
[2018-07-15] MEDS: Ferrous Sulfate Oral Soln 300 MG/5 ML UDC GTUBE SCH (08:24)
[2018-07-15] MEDS: Cyanocobalamin (B-12) 1,000 MCG TABLET PO SCH (08:24)
[2018-07-15] MEDS: Pantoprazole 40 MG VIAL IVP SCH (08:24)
[2018-07-15] MEDS: Folic Acid 1 MG TABLET PO SCH (08:34)
--- NOTE | 2018-07-15 09:38 | Infectious Disease Progress No ---
Date of Encounter: 07/15/18 Time of Encounter: 09:36 - Assessment and Plan (1) Septic shock Current Visit: Yes Status: Acute The patient had 4 SIRS criteria plus lactic acidosis, acute kidney injury, acute encephalopathy, and hypotension requiring vasopressors. Likely secondary to candidemia, UTI, possible HSV encephalitis, and PNA. Improved. Leukocytosis resolved. Afebrile. Tachycardic this morning. Remains off vasopressors. Blood cultures obtained 06/17/18 are +2 out of 2 sets for Marisela albicans, nation- sensitive. Repeat blood cultures obtained 06/19/18 are negative 2 sets. Additional blood cultures drawn 07/04/18 are negative x [address] head showed partial opacification of the left sphenoid sinus and mastoid air cells. Continue Vancomycin IV. Pharmacy to dose. Goal trough ~15. Continue Zosyn 3.375 grams IV Q8H. Duration of treatment depends on the clinical picture. Monitor renal function and dose-adjust antibiotics. (2) Candidemia Current Visit: Yes Status: Resolved Causative organism: Marisela albicans. Source: unclear. CT of the abdomen and pelvis is negative. He has no indwelling lines or catheters. His urine culture is positive for C. albicans. Blood cultures obtained 06/17/18 are +2 out of 2 sets for Marisela albicans, nation- sensitive. Repeat blood cultures obtained 06/19/18 are negative 2 sets. Additional blood cultures 07/04/18 are negative x 2 sets. Repeat LFTs normal. Completed 14 days of IV fluconazole. Resolved. Ophthalmology consult noted and appreciated. (3) Pneumonia Current Visit: Yes Status: Acute Location: Bilateral lower lobes. Causative organism: Unclear. Consider aspiration since the patient had altered mental status and was recently intubated. CT of the chest showed bilateral lower lobe infiltrates versus atelectasis. The patient does have a large amount of secretions coming from his ET tube. Discussed with the pulmonary team. Concern for pneumonia from their standpoint. MRSA screen completed 06/17/18 is negative. Initial sputum culture negative. Repeat Sputum culture 07/04/18 positive for A. baummannii. S. pneumo and Legionella UAT 06/20/18.--> negative. Repeat CXR 06/23/18 showed mild pulmonary vascular congestion and atelectasis and mild pleural effusion at the right lung base, increased. CT scan of the chest 06/23/18 negative for PNA. CXR 07/01/18 showed stable RLL disease and improved LLL disease. CXR 07/07/18 showed mild pulmonary vascular congestion and mild right pleural effusion. CXR 07/11/18 showed right basilar opacity and pulmonary edema. Vanc and Zosyn discontinued 06/25/18 after 9 days. Cefepime and Flagyl discontinued 07/11. Repeat CXR 07/15/18 showed persistent RLL pneumonia. Continue Vancomycin and Zosyn as above. (day 5) Duration of treatment depends on the clinical picture. Monitor renal function and for drug toxicity and dose-adjust antibiotics. Qualifiers: Pneumonia type: due to unspecified organism Laterality: bilateral Lung location: lower lobe of lung Qualified Code(s): J18.1 - Lobar pneumonia, unspecified organism (4) UTI (urinary tract infection) Current Visit: Yes Status: Acute Causative organism 06/18/18: C. albicans. Completed 14+ days of fluconazole. Repeat urine culture 07/01/18 grew E. coli, resistant to ampicillin and Unasyn. Likely secondary to jacobo catheter. Completed 7 day course of Cefepime. Qualifiers: Urinary tract infection type: site unspecified Hematuria presence: without hematuria Qualified Code(s): N39.0 - Urinary tract infection, site not specified (5) Encephalopathy Current Visit: Yes Status: Acute Etiology unclear, but likely related to sepsis. Per the patient's , the patient did have any complaints of neck pain, stiffness, or headache. Unable to assess mental status since the patient remains intubated and sedated. CT head negative for intracranial abnormality. 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 LP attempted by the pulm/CC team and IR was unsuccessful. Neurology consulted. Appreciate recommendations. Signed off. Acyclovir stopped by the pulmonary team, re-started 07/04/18. Completed 14 days of IV acyclovir. Patient awake and agitated this morning. Per nursing, failed CPAP this morning. (6) LUCILA (acute kidney injury) Current Visit: Yes Status: Acute Likely multifactorial: sepsis + hypotension + other. CRRT started 06/19/18 and stopped 06/26/18. Creatinine improved. Urine output remains adequate. Nephrology consulted and following. Continue to trend. Dose-adjust medications. (7) Lactic acidosis Current Visit: Yes Status: Resolved Likely secondary to sepsis. Resolved. (8) Thrombocytopenia Current Visit: Yes Status: Resolved Likely secondary to sepsis. LFTs abnormal on admission. Repeat LFTs normal. Resolved Continue to trend. No acute bleeding noted on exam. Further workup and management per the primary team. (9) Acute respiratory failure with hypoxemia Current Visit: Yes Status: Acute Likely secondary to PNA vs. pulmonary edema. Extubated 07/01/18. Re-intubated 07/04/18. Status post trach/PEG 07/11/18. Management per the pulmonary team. (10) Hypokalemia Current Visit: Yes Status: Resolved Replacement per the primary team. (11) Elevated troponin Current Visit: Yes Status: Acute Management per the primary team. (12) Type 2 diabetes mellitus Current Visit: Yes Status: Chronic Recommend aggressive glucose monitoring and control. Management per the primary team. Qualifiers: Diabetes mellitus skilled nursing insulin use: with intermediate frame tender use Diabetes mellitus complication status: with unspecified complications Qualified Code(s) : E11.8 - Type 2 diabetes mellitus with unspecified complications; Z79.4 - [facility] (current) use of insulin (13) COPD (chronic obstructive pulmonary disease) Current Visit: Yes Status: Chronic Qualifiers: COPD type: emphysema Emphysema type: unspecified Qualified Code(s): J43.9 - Emphysema, unspecified (14) Oral lesion Current Visit: Yes Status: Resolved Noted to the tongue. PCR positive for HSV 1. New lesion noted to the right nasolabial fold: HSV vs. other. Completed 14 days of acyclovir. Resolved. (15) Sinusitis Current Visit: Yes Status: Acute CT of the head 06/23/18 showed sinusitis of the bilateral sphenoid and ethmoid sinuses. Causative organism unclear. Treated with 9 days of Vanc and Zosyn. Repeat CT head 07/10/18 showed opacification of the left sphenoid sinus. Continue Vanc and Zosyn as above. Recommend ENT to evaluate. Discussed with the primary team. Qualifiers: Sinusitis location: unspecified location Chronicity: acute Recurrence: non-recurrent Qualified Code(s): J01.90 - Acute sinusitis, unspecified (16) Mastoiditis Current Visit: Yes Status: Suspected CT head showed opacitification of the left mastoid air cells concerning for mastoiditis. Recommend ENT to evaluate. Discussed with the primary team. Qualifiers: Laterality: left Qualified Code(s): H70.92 - Unspecified mastoiditis, left ear - Subjective Interval history: Patient seen and examined. No acute events noted overnight. Tachycardic with weaning of sedation. Follows some commands and states he has pain in his back. Does not answer other ROS questions. Status post trach and PEG over the weekend 07/11/18. Per nursing, tolerating tube feeds well and having stool from rectal tube. Infect Dis PN-Objective Data - Labs CBC & Chem 7: 07/16/18 03:20 07/16/18 03:20 Labs: Laboratory Results - last 24 hr 07/14/18 07/14/18 07/14/18 12:51 17:16 20:04 WBC RBC Hgb Hct MCV MCH MCHC RDW Plt Count MPV Immature Gran % Seg Neutrophils % Lymphocytes % Monocytes % Eosinophils % Basophils % Neutrophils # Lymphocytes # Monocytes # Eosinophils # Basophils # Nucleated RBCs/100 WBC Sodium Potassium Chloride Carbon Dioxide BUN Creatinine Est GFR ( Amer) Est GFR (Non-Af Amer) BUN/Creatinine Ratio Glucose POC Glucose 167 H 172 H 263 H Calculated Osmolality Calcium Phosphorus Magnesium Vancomycin Trough 07/14/18 07/15/18 07/15/18 23:31 03:41 04:00 WBC 9.3 RBC 2.25 L Hgb 7.0 L Hct 22.6 L MCV 100.4 H MCH 31.1 MCHC 31.0 L RDW 15.9 H Plt Count 280 MPV 12.5 H Immature Gran % 2.4 Seg Neutrophils % 52.3 Lymphocytes % 24.4 Monocytes % 8.4 Eosinophils % 12.0 Basophils % 0.5 Neutrophils # 4.9 Lymphocytes # 2.3 Monocytes # 0.8 Eosinophils # 1.1 H Basophils # 0.1 Nucleated RBCs/100 WBC 0.2 H Sodium Potassium Chloride Carbon Dioxide BUN Creatinine Est GFR ( Amer) Est GFR (Non-Af Amer) BUN/Creatinine Ratio Glucose POC Glucose 288 H 286 H Calculated Osmolality Calcium Phosphorus Magnesium Vancomycin Trough 07/15/18 07/15/18 07/15/18 04:00 07:38 08:00 WBC RBC Hgb Hct MCV MCH MCHC RDW Plt Count MPV Immature Gran % Seg Neutrophils % Lymphocytes % Monocytes % Eosinophils % Basophils % Neutrophils # Lymphocytes # Monocytes # Eosinophils # Basophils # Nucleated RBCs/100 WBC Sodium 144 Potassium 3.3 L Chloride 109 H Carbon Dioxide 28 BUN 25 H Creatinine 1.21 Est GFR ( Amer) > 60 Est GFR (Non-Af Amer) > 60 BUN/Creatinine Ratio 21 Glucose 272 H POC Glucose 217 H Calculated Osmolality 312 H Calcium 8.3 L Phosphorus 4.1 Magnesium 1.5 L Vancomycin Trough 16 H Cultures: Cultures 07/11/18 05:11 Blood Culture - Preliminary Peripheral Venipuncture Culture is incubating and being continuously monitored for growth. Final report to follow. 07/11/18 05:20 Blood Culture - Preliminary Central Venous Catheter Culture is incubating and being continuously monitored for growth. Final report to follow. 07/04/18 11:59 Blood Culture - Final Peripheral Venipuncture No growth. Final report. 07/04/18 10:34 Blood Culture - Final Peripheral Venipuncture No growth. Final report. 07/04/18 07:38 Sputum Culture - Final Aspirate Acinetobacter baumannii complx 07/01/18 09:03 Urine Culture - Final Urine,Catheterized Escherichia coli 06/24/18 11:35 Blood Culture - Final Peripheral Venipuncture No growth. Final report. 06/24/18 11:35 Blood Culture - Final Peripheral Venipuncture No growth. Final report. 06/19/18 12:46 Blood Culture - Final Peripheral Venipuncture No growth. Final report. 06/19/18 12:46 Blood Culture - Final Peripheral Venipuncture No growth. Final report. 06/18/18 20:45 Sputum Culture - Final Sputum 06/20/18 11:30 Legionella Antigen - Final Urine,[place] Streptococcus pneumoniae Antigen (M - Final Serology 07/11/18 07/10/18 07/10/18 Range/Units 05:22 08:30 08:30 Urine Color Yellow (Yellow) Urine Clarity Hazy (Clear) Urine pH 5.5 (5.0-8.0) pH Units Ur Specific Nelson 1.013 (1.010-1.025) Urine Protein 30 H (Neg-Trace) mg/dL Urine Glucose (UA) Normal (Normal) mg/dL Urine Ketones Negative (Negative) mg/dL Urine Blood Large H (Negative) Urine Nitrite Negative (Negative) Urine Bilirubin Negative (Negative) Urine Urobilinogen Normal (Normal) mg/dL Ur Leukocyte Esterase Small H (Negative) Urine Microscopic RBC 0-3 (0-3) per hpf Urine Microscopic WBC 5-15 H (0-3) per hpf Ur Eosinophil Smear (None Seen) % Ur Squamous Epith Cells Many H (None-Few) per lpf Urine Bacteria Few (None-Few) per hpf Hyaline Casts None Seen (None-Few) per lpf Ur Culture Indicated? NO. A (NO) Urine Osmolality 287 L (300-1090) mOsm/kg Urine Creatinine mg/dL Protein/Creatinin Ratio (0.00-0.20) mg/mg Urine Sodium 57.9 mEq/L Urine Potassium mEq/L Urine Chloride mEq/L Urine Total Protein (1-14) mg/dL Nasal Screen MRSA (PCR) (Negative) Chlamy pneumoniae PCR (Not Detect) Adenovirus (PCR) (Not Detect) B. pertussis DNA (PCR) (Not Detect) B.parapertussis DNA PCR (Not Detect) Coronavirus OC43 (PCR) (Not Detect) Coronavirus HKU1 (PCR) (Not Detect) Coronavirus 229E (PCR) (Not Detect) Coronavirus NL63 (PCR) (Not Detect) Hep Bs Antigen (Nonreactive) Hep Bs Antibody mIU/mL Herpes Simplex Source HSV I (Not Detect) HSV II (Not Detect) HIV Ag/Ab Combo Qual (Nonreactive) Human Metapneumovir PCR (Not Detect) Influenza A (H1) PCR (Not Detect) Influ A (H1N1/09) PCR (Not Detect) Influenza A (H3) PCR (Not Detect) Influenza A Untype (PCR) (Not Detect) Influenza Type B (PCR) (Not Detect) M.pneumoniae DNA (PCR) (Not Detect) Parainfluenza 1 (PCR) (Not Detect) Parainfluenza 2 (PCR) (Not Detect) Parainfluenza 3 (PCR) (Not Detect) Parainfluenza 4 (PCR) (Not Detect) RSV (PCR) (Not Detect) Entero/Rhino (PCR) (Not Detect) 07/09/18 07/09/18 07/05/18 Range/Units 10:00 10:00 17:50 Urine Color (Yellow) Urine Clarity (Clear) Urine pH (5.0-8.0) pH Units Ur Specific Nelson (1.010-1.025) Urine Protein (Neg-Trace) mg/dL Urine Glucose (UA) (Normal) mg/dL Urine Ketones (Negative) mg/dL Urine Blood (Negative) Urine Nitrite (Negative) Urine Bilirubin (Negative) Urine Urobilinogen (Normal) mg/dL Ur Leukocyte Esterase (Negative) Urine Microscopic RBC (0-3) per hpf Urine Microscopic WBC (0-3) per hpf Ur Eosinophil Smear (None Seen) % Ur Squamous Epith Cells (None-Few) per lpf Urine Bacteria (None-Few) per hpf Hyaline Casts (None-Few) per lpf Ur Culture Indicated? (NO) Urine Osmolality 137 L (300-1090) mOsm/kg Urine Creatinine mg/dL Protein/Creatinin Ratio (0.00-0.20) mg/mg Urine Sodium 39.1 mEq/L Urine Potassium mEq/L Urine Chloride mEq/L Urine Total Protein (1-14) mg/dL Nasal Screen MRSA (PCR) Negative (Negative) Chlamy pneumoniae PCR (Not Detect) Adenovirus (PCR) (Not Detect) B. pertussis DNA (PCR) (Not Detect) B.parapertussis DNA PCR (Not Detect) Coronavirus OC43 (PCR) (Not Detect) Coronavirus HKU1 (PCR) (Not Detect) Coronavirus 229E (PCR) (Not Detect) Coronavirus NL63 (PCR) (Not Detect) Hep Bs Antigen (Nonreactive) Hep Bs Antibody mIU/mL Herpes Simplex Source HSV I (Not Detect) HSV II (Not Detect) HIV Ag/Ab Combo Qual (Nonreactive) Human Metapneumovir PCR (Not Detect) Influenza A (H1) PCR (Not Detect) Influ A (H1N1/09) PCR (Not Detect) Influenza A (H3) PCR (Not Detect) Influenza A Untype (PCR) (Not Detect) Influenza Type B (PCR) (Not Detect) M.pneumoniae DNA (PCR) (Not Detect) Parainfluenza 1 (PCR) (Not Detect) Parainfluenza 2 (PCR) (Not Detect) Parainfluenza 3 (PCR) (Not Detect) Parainfluenza 4 (PCR) (Not Detect) RSV (PCR) (Not Detect) Entero/Rhino (PCR) (Not Detect) 07/01/18 06/30/18 06/30/18 Range/Units 09:03 09:34 09:34 Urine Color Yellow (Yellow) Urine Clarity Clear (Clear) Urine pH 7.0 (5.0-8.0) pH Units Ur Specific Nelson < 1.005 L (1.010-1.025) Urine Protein Trace (Neg-Trace) mg/dL Urine Glucose (UA) Normal (Normal) mg/dL Urine Ketones Negative (Negative) mg/dL Urine Blood Moderate H (Negative) Urine Nitrite Negative (Negative) Urine Bilirubin Negative (Negative) Urine Urobilinogen Normal (Normal) mg/dL Ur Leukocyte Esterase Moderate H (Negative) Urine Microscopic RBC 3-5 H (0-3) per hpf Urine Microscopic WBC 50-100 H (0-3) per hpf Ur Eosinophil Smear 0 (None Seen) % Ur Squamous Epith Cells None Seen (None-Few) per lpf Urine Bacteria Many H (None-Few) per hpf Hyaline Casts None Seen (None-Few) per lpf Ur Culture Indicated? (NO) Urine Osmolality (300-1090) mOsm/kg Urine Creatinine 31 mg/dL Protein/Creatinin Ratio 1.68 H (0.00-0.20) mg/mg Urine Sodium 40.6 mEq/L Urine Potassium mEq/L Urine Chloride mEq/L Urine Total Protein 52 H (1-14) mg/dL Nasal Screen MRSA (PCR) (Negative) Chlamy pneumoniae PCR (Not Detect) Adenovirus (PCR) (Not Detect) B. pertussis DNA (PCR) (Not Detect) B.parapertussis DNA PCR (Not Detect) Coronavirus OC43 (PCR) (Not Detect) Coronavirus HKU1 (PCR) (Not Detect) Coronavirus 229E (PCR) (Not Detect) Coronavirus NL63 (PCR) (Not Detect) Hep Bs Antigen (Nonreactive) Hep Bs Antibody mIU/mL Herpes Simplex Source HSV I (Not Detect) HSV II (Not Detect) HIV Ag/Ab Combo Qual (Nonreactive) Human Metapneumovir PCR (Not Detect) Influenza A (H1) PCR (Not Detect) Influ A (H1N1/09) PCR (Not Detect) Influenza A (H3) PCR (Not Detect) Influenza A Untype (PCR) (Not Detect) Influenza Type B (PCR) (Not Detect) M.pneumoniae DNA (PCR) (Not Detect) Parainfluenza 1 (PCR) (Not Detect) Parainfluenza 2 (PCR) (Not Detect) Parainfluenza 3 (PCR) (Not Detect) Parainfluenza 4 (PCR) (Not Detect) RSV (PCR) (Not Detect) Entero/Rhino (PCR) (Not Detect) 06/30/18 06/24/18 06/24/18 Range/Units 09:33 15:10 11:15 Urine Color Yellow (Yellow) Urine Clarity Hazy (Clear) Urine pH 6.0 (5.0-8.0) pH Units Ur Specific Nelson 1.013 (1.010-1.025) Urine Protein 30 H (Neg-Trace) mg/dL Urine Glucose (UA) Normal (Normal) mg/dL Urine Ketones Negative (Negative) mg/dL Urine Blood Moderate H (Negative) Urine Nitrite Negative (Negative) Urine Bilirubin Small H (Negative) Urine Urobilinogen Normal (Normal) mg/dL Ur Leukocyte Esterase Moderate H (Negative) Urine Microscopic RBC 3-5 H (0-3) per hpf Urine Microscopic WBC 50-100 H (0-3) per hpf Ur Eosinophil Smear (None Seen) % Ur Squamous Epith Cells Many H (None-Few) per lpf Urine Bacteria None Seen (None-Few) per hpf Hyaline Casts None Seen (None-Few) per lpf Ur Culture Indicated? (NO) Urine Osmolality 200 L (300-1090) mOsm/kg Urine Creatinine mg/dL Protein/Creatinin Ratio (0.00-0.20) mg/mg Urine Sodium mEq/L Urine Potassium mEq/L Urine Chloride mEq/L Urine Total Protein (1-14) mg/dL Nasal Screen MRSA (PCR) (Negative) Chlamy pneumoniae PCR (Not Detect) Adenovirus (PCR) (Not Detect) B. pertussis DNA (PCR) (Not Detect) B.parapertussis DNA PCR (Not Detect) Coronavirus OC43 (PCR) (Not Detect) Coronavirus HKU1 (PCR) (Not Detect) Coronavirus 229E (PCR) (Not Detect) Coronavirus NL63 (PCR) (Not Detect) Hep Bs Antigen (Nonreactive) Hep Bs Antibody mIU/mL Herpes Simplex Source [place] HSV I DETECTED A (Not Detect) HSV II Not Detected (Not Detect) HIV Ag/Ab Combo Qual (Nonreactive) Human Metapneumovir PCR (Not Detect) Influenza A (H1) PCR (Not Detect) Influ A (H1N1/09) PCR (Not Detect) Influenza A (H3) PCR (Not Detect) Influenza A Untype (PCR) (Not Detect) Influenza Type B (PCR) (Not Detect) M.pneumoniae DNA (PCR) (Not Detect) Parainfluenza 1 (PCR) (Not Detect) Parainfluenza 2 (PCR) (Not Detect) Parainfluenza 3 (PCR) (Not Detect) Parainfluenza 4 (PCR) (Not Detect) RSV (PCR) (Not Detect) Entero/Rhino (PCR) (Not Detect) 06/23/18 06/23/18 06/20/18 Range/Units 20:00 08:10 11:30 Urine Color (Yellow) Urine Clarity (Clear) Urine pH (5.0-8.0) pH Units Ur Specific Nelson (1.010-1.025) Urine Protein (Neg-Trace) mg/dL Urine Glucose (UA) (Normal) mg/dL Urine Ketones (Negative) mg/dL Urine Blood (Negative) Urine Nitrite (Negative) Urine Bilirubin (Negative) Urine Urobilinogen (Normal) mg/dL Ur Leukocyte Esterase (Negative) Urine Microscopic RBC (0-3) per hpf Urine Microscopic WBC (0-3) per hpf Ur Eosinophil Smear (None Seen) % Ur Squamous Epith Cells (None-Few) per lpf Urine Bacteria (None-Few) per hpf Hyaline Casts (None-Few) per lpf Ur Culture Indicated? (NO) Urine Osmolality (300-1090) mOsm/kg Urine Creatinine mg/dL Protein/Creatinin Ratio (0.00-0.20) mg/mg Urine Sodium mEq/L Urine Potassium mEq/L Urine Chloride mEq/L Urine Total Protein (1-14) mg/dL Nasal Screen MRSA (PCR) (Negative) Chlamy pneumoniae PCR Not Detected (Not Detect) Adenovirus (PCR) Not Detected (Not Detect) B. pertussis DNA (PCR) Not Detected (Not Detect) B.parapertussis DNA PCR Not Detected (Not Detect) Coronavirus OC43 (PCR) Not Detected (Not Detect) Coronavirus HKU1 (PCR) Not Detected (Not Detect) Coronavirus 229E (PCR) Not Detected (Not Detect) Coronavirus NL63 (PCR) Not Detected (Not Detect) Hep Bs Antigen Nonreactive (Nonreactive) Hep Bs Antibody 0.00 mIU/mL Herpes Simplex Source HSV I (Not Detect) HSV II (Not Detect) HIV Ag/Ab Combo Qual Nonreactive (Nonreactive) Human Metapneumovir PCR Not Detected (Not Detect) Influenza A (H1) PCR Not Detected (Not Detect) Influ A (H1N1/09) PCR Not Detected (Not Detect) Influenza A (H3) PCR Not Detected (Not Detect) Influenza A Untype (PCR) Not Detected (Not Detect) Influenza Type B (PCR) Not Detected (Not Detect) M.pneumoniae DNA (PCR) Not Detected (Not Detect) Parainfluenza 1 (PCR) Not Detected (Not Detect) Parainfluenza 2 (PCR) Not Detected (Not Detect) Parainfluenza 3 (PCR) Not Detected (Not Detect) Parainfluenza 4 (PCR) Not Detected (Not Detect) RSV (PCR) Not Detected (Not Detect) Entero/Rhino (PCR) Not Detected (Not Detect) 06/18/18 06/18/18 06/17/18 Range/Units 10:28 10:28 18:15 Urine Color (Yellow) Urine Clarity (Clear) Urine pH (5.0-8.0) pH Units Ur Specific Nelson (1.010-1.025) Urine Protein (Neg-Trace) mg/dL Urine Glucose (UA) (Normal) mg/dL Urine Ketones (Negative) mg/dL Urine Blood (Negative) Urine Nitrite (Negative) Urine Bilirubin (Negative) Urine Urobilinogen (Normal) mg/dL Ur Leukocyte Esterase (Negative) Urine Microscopic RBC (0-3) per hpf Urine Microscopic WBC (0-3) per hpf Ur Eosinophil Smear (None Seen) % Ur Squamous Epith Cells (None-Few) per lpf Urine Bacteria (None-Few) per hpf Hyaline Casts (None-Few) per lpf Ur Culture Indicated? (NO) Urine Osmolality 343 (300-1090) mOsm/kg Urine Creatinine mg/dL Protein/Creatinin Ratio (0.00-0.20) mg/mg Urine Sodium 128.8 mEq/L Urine Potassium 36.5 7.5 mEq/L Urine Chloride 135 mEq/L Urine Total Protein (1-14) mg/dL Nasal Screen MRSA (PCR) (Negative) Chlamy pneumoniae PCR (Not Detect) Adenovirus (PCR) (Not Detect) B. pertussis DNA (PCR) (Not Detect) B.parapertussis DNA PCR (Not Detect) Coronavirus OC43 (PCR) (Not Detect) Coronavirus HKU1 (PCR) (Not Detect) Coronavirus 229E (PCR) (Not Detect) Coronavirus NL63 (PCR) (Not Detect) Hep Bs Antigen (Nonreactive) Hep Bs Antibody mIU/mL Herpes Simplex Source HSV I (Not Detect) HSV II (Not Detect) HIV Ag/Ab Combo Qual (Nonreactive) Human Metapneumovir PCR (Not Detect) Influenza A (H1) PCR (Not Detect) Influ A (H1N1/09) PCR (Not Detect) Influenza A (H3) PCR (Not Detect) Influenza A Untype (PCR) (Not Detect) Influenza Type B (PCR) (Not Detect) M.pneumoniae DNA (PCR) (Not Detect) Parainfluenza 1 (PCR) (Not Detect) Parainfluenza 2 (PCR) (Not Detect) Parainfluenza 3 (PCR) (Not Detect) Parainfluenza 4 (PCR) (Not Detect) RSV (PCR) (Not Detect) Entero/Rhino (PCR) (Not Detect) 06/17/18 06/17/18 Range/Units 11:56 11:30 Urine Color (Yellow) Urine Clarity (Clear) Urine pH (5.0-8.0) pH Units Ur Specific Nelson (1.010-1.025) Urine Protein (Neg-Trace) mg/dL Urine Glucose (UA) (Normal) mg/dL Urine Ketones (Negative) mg/dL Urine Blood (Negative) Urine Nitrite (Negative) Urine Bilirubin (Negative) Urine Urobilinogen (Normal) mg/dL Ur Leukocyte Esterase (Negative) Urine Microscopic RBC (0-3) per hpf Urine Microscopic WBC (0-3) per hpf Ur Eosinophil Smear (None Seen) % Ur Squamous Epith Cells (None-Few) per lpf Urine Bacteria (None-Few) per hpf Hyaline Casts (None-Few) per lpf Ur Culture Indicated? (NO) Urine Osmolality (300-1090) mOsm/kg Urine Creatinine mg/dL Protein/Creatinin Ratio (0.00-0.20) mg/mg Urine Sodium mEq/L Urine Potassium mEq/L Urine Chloride mEq/L Urine Total Protein (1-14) mg/dL Nasal Screen MRSA (PCR) Negative (Negative) Chlamy pneumoniae PCR Not Detected (Not Detect) Adenovirus (PCR) Not Detected (Not Detect) B. pertussis DNA (PCR) Not Detected (Not Detect) B.parapertussis DNA PCR Not Detected (Not Detect) Coronavirus OC43 (PCR) Not Detected (Not Detect) Coronavirus HKU1 (PCR) Not Detected (Not Detect) Coronavirus 229E (PCR) Not Detected (Not Detect) Coronavirus NL63 (PCR) Not Detected (Not Detect) Hep Bs Antigen (Nonreactive) Hep Bs Antibody mIU/mL Herpes Simplex Source HSV I (Not Detect) HSV II (Not Detect) HIV Ag/Ab Combo Qual (Nonreactive) Human Metapneumovir PCR Not Detected (Not Detect) Influenza A (H1) PCR Not Detected (Not Detect) Influ A (H1N1/09) PCR Not Detected (Not Detect) Influenza A (H3) PCR Not Detected (Not Detect) Influenza A Untype (PCR) Not Detected (Not Detect) Influenza Type B (PCR) Not Detected (Not Detect) M.pneumoniae DNA (PCR) Not Detected (Not Detect) Parainfluenza 1 (PCR) Not Detected (Not Detect) Parainfluenza 2 (PCR) Not Detected (Not Detect) Parainfluenza 3 (PCR) Not Detected (Not Detect) Parainfluenza 4 (PCR) Not Detected (Not Detect) RSV (PCR) Not Detected (Not Detect) Entero/Rhino (PCR) Not Detected (Not Detect) - Impressions Impressions Chest X-Ray 07/14/18 13:41 IMPRESSION: Persistent right lower lobe pneumonia. Slight increased ground-glass throughout both lungs suggesting interstitial pulmonary edema. D/ / Thomas Maldonado MD / Thomas Maldonado MD Interpreting Provider: Thomas Maldonado MD Exam - Constitutional Vitals: Temp Pulse Resp BP Pulse Ox 99.4 F 117 21 136/80 98 07/15/18 08:22 07/15/18 06:00 07/15/18 09:20 07/15/18 09:20 07/15/18 09:20 General appearance: average body habitus, cooperative, no acute distress - Head Head exam: Present: atraumatic, normal inspection, normocephalic - Eye Eye exam: Present: EOMI, normal appearance, PERRL Pupils: Present: normal accommodation - ENT ENT exam: Present: mucous membranes dry - Neck Neck exam: Present: normal inspection Additional comments: Tracheostomy midline with O2 via the vent. Temporary HD catheter noted to the right neck with transparent dressing C/D/I. - Respiratory Respiratory exam: Present: CTAB. Absent: rales, respiratory distress, rhonchi, wheezes - Cardiovascular Cardiovascular exam: Present: +S1, +S2, tachycardia. Absent: irregular rhythm - GI/Abdominal GI/Abdominal exam: Present: distended (obese), normal bowel sounds, soft. Absent: tenderness Additional comments: Rectal tube noted with liquid brown stool. Jacobo catheter noted to be draining clear yellow urine. PEG tube noted with tube feeds infusing. - Extremities Exam Extremities exam: Present: normal inspection. Absent: joint swelling, pedal edema, tenderness - Neurological Exam Neurological exam: Present: alert, altered (Drowsy, but restless.) - Psychiatric Psychiatric exam: Present: agitated - Skin Skin exam: Present: dry, intact, normal color, warm - VTE Documentation of Mechanical Device: Intermittent pneumatic compression device Consult Discharge Plan - Plan Referrals: Sheryl Stahl, WRECKER OPERATOR [Primary Care Provider] - - Attending Attestation I examined this patient and my medical decision-making was reviewed with the Resident Physician. I agree with the documented findings, disposition and treatment plan as described except to the extent set forth below.
--- NOTE | 2018-07-15 11:20 | Nephrology Progress Note ---
Date of Encounter: 07/15/18 Time of Encounter: 09:10 - Assessment and Plan (1) LUCILA (acute kidney injury) Current Visit: Yes Status: Acute Acute kidney injury is largely resolved, however extremely prone to prerenal injury Serum creatinine has returned to 1.21 today, estimated GFR is greater than 60 The patient does continue to have good urine output, 2650 and past 24 hours He is no longer polyuric with the introduction of DDAVP Because there is no indication for acute hemodialysis, it is acceptable to remove the temporary hemodialysis catheter Recommend continued free water pushes at 400 mL every 4 hours, discontinue D5 water Goal is to transition to complete enteric hydration as able Continue to avoid nephrotoxic agents as possible (2) Diabetes insipidus, neurohypophyseal Current Visit: Yes Status: Suspected Continues to respond appropriately to DDAVP Continue maintenance dose of 4 g per day, formulation can be changed as necessary Serum sodium is appropriate at 144 mEq today At this time it is appropriate to discontinue D5 water and IV hydration in general Given his average urine output, 400 mL free water pushes every 4 hours per PEG is appropriate at this time This number can be adjusted if his residuals become too high or he is unable to tolerate it The patient does appear to be somewhat dry today, so our hope is to allow him to enteric hydration (3) Acute respiratory failure with hypoxemia Current Visit: Yes Status: Acute Hypoxic respiratory failure, status post tracheostomy 07/11/18 Management per critical care team (4) Anemia Current Visit: Yes Status: Acute Severe iron deficiency anemia Patient was started on ferrous sulfate 07/13/18 Although IV iron would be more efficacious, the patient does have a very substantial elevation in ferritin Additionally, the patient's been started on vancomycin due to concern for infection by ID Continue to monitor, consider IV iron moving forward with possible Qualifiers: Anemia type: iron deficiency Iron deficiency anemia type: unspecified iron deficiency Qualified Code(s): D50.9 - Iron deficiency anemia, unspecified Subjective Principal diagnosis: septic shock Interval history: Status post tracheostomy 07/11/18. Patient is seen and examined at bedside, he continues to be restless at this time. He is pulling at his restraints and trying to mouth words to me. He is fully responsive to commands. Objective - Vital Signs Vital signs: Vital Signs Temp Pulse Resp BP Pulse Ox 07/15/18 10:00 120 25 139/100 99 09/18/18 09:20 21 136/80 98 /18/18 09:00 114 23 136/80 99 18/18 08:22 99.4 F 18 08:00 73 17 102/58 96 18/18 07:33 18 117/82 96 18/18 07:00 101 20 145/91 96 18/18 06:10 25 113/95 97 1818 06:00 117 28 113/95 96 18 05:09 25 148/102 95 18/18 05:00 116 24 161/93 95 1818 04:00 97.4 F L 131 30 145/90 96 1818 03:40 20 124/82 99 18 03:00 66 16 111/70 98 18 02:00 64 16 97/60 97 18 01:04 16 102/61 97 18/18 01:00 61 16 102/61 98 18/18 00:10 70 18 00:00 71 16 120/73 97 07/14/18 23:55 98.4 F 07/14/18 23:13 17 143/92 100 17/18 23:00 79 17 143/92 98 07/14/18 22:00 111 21 131/98 97 17/18 21:42 22 158/97 97 17/18 21:00 112 25 150/93 98 /17/18 20:55 97.7 F 18 20:30 109 22 149/80 98 17/18 19:48 24 137/66 98 17/18 19:30 106 22 137/99 100 17/18 18:00 64 16 102/61 98 /17/18 17:13 16 101/62 96 17/18 17:00 63 16 99/61 97 17/18 16:00 62 17 93/52 96 17/18 15:00 61 16 108/65 96 17/18 14:00 62 17 99/66 98 /17/18 13:35 16 107/63 97 17/18 13:00 69 16 106/69 98 17/18 12:00 98.9 F 68 18 103/62 97 Intake and Output 07/14/18 07/15/18 07/15/18 23:59 07:59 15:59 Intake Total 3231 / 3231 2482 / 2482 1405 / 1405 Output Total 950 / 950 0 / 0 500 / 500 Balance 2281 / 2281 2482 / 2482 905 / 905 Intake: IV Fluids 1450 / 1450 1400 / 1400 1105 / 1105 Dextrose 5% 1,000 ML @ 125 mls/ 1000 / 1000 1000 / 1000 850 / 850 hr IVC .Q8H NADIA Rx#:[id number] PRECEDEX Premix 400 mcg In 100 200 / 200 200 / 200 ml @ 0.2 MCG/KG/HR 5.45 mls/hr IVC .[id number] NADIA Rx#:[id number] FentaNYL (PF) 2,500 MCG In 50 / 50 Empty Bag 1 Each @ 50 MCG/HR 1 mls/hr IVC CONT NADIA Rx#: [id number] Diprivan 1,000 mg In 100 ml @ 5 100 / 100 100 / 100 MCG/KG/MIN 3.345 mls/hr IVC . Q24H NADIA Rx#:[id number] Ddavp 4 Mcg In 0.9 % Sodium 51 / 51 Chloride 50 ML @ 100 mls/hr IVPB DAILY [facility] Rx#:[id number] Magnesium Sulfate 2 GM In 0.9 % 104 / 104 Sodium Chloride 100 ML @ 52 mls/hr IVPB Q6H PRN Rx#: [id number] Zosyn 3.375 GM In 0.9 % Sodium 100 / 100 100 / 100 100 / 100 Chloride (Mini-Bag +) 100 ML @ 25 mls/hr IVPB Q8H [facility] Rx#: [id number] Tube Feeding 781 / 781 462 / 462 Free Water 500 / 500 60 / 60 Free Water Intake Amount 500 / 500 560 / 560 300 / 300 Output: Rectal Tube 0 / 0 Catheter 950 / 950 500 / 500 Other: Stool Color Brown Weight 116.1 kg Blood Glucose* 288 286 217 - General Appearance Exam: Gen: Vitals noted. No acute distress. Alert. HEENT: Normocephalic, atraumatic. Dry mucous membranes. Oral ulcerations present Neck: Supple. No adenopathy. Right internal jugular temporary hemodialysis catheter in place with no erythema surrounding. Tracheostomy in place Cardiac: RRR, no murmur, +S1/S2 Pulmonary: Rhonchi present bilaterally, no wheezes present Abdomen: soft, nontender, no guarding Integumentary: Skin is dry and wrinkly Extremities: No bilateral lower extremity edema, nontender calf, no cyanosis or clubbing Neuro: Patient is alert, however does not speak. Orientation cannot be assessed. Does follow some commands. - Lab 07/15/18 04:00 07/15/18 04:00 Most recent lab results ABG pH 7.38 pH Units (7.32-7.45) 07/12/18 05:14 ABG pCO2 52 mmHg (35-45) H 07/12/18 05:14 ABG pO2 68 mmHg (85-104) L 07/12/18 05:14 ABG HCO3 31 mEq/L (21-27) H 07/12/18 05:14 ABG O2 Saturation 93 % (95-98) L 07/12/18 05:14 Calcium 8.3 mg/dL (8.6-10.3) L 07/15/18 04:00 Phosphorus 4.1 mg/dL (2.7-4.5) 07/15/18 04:00 Magnesium 1.5 mg/dL (1.6-2.6) L 07/15/18 04:00 Urine Creatinine 31 mg/dL 06/30/18 09:34 Urine Sodium 57.9 mEq/L 07/10/18 08:30 Urine Total Protein 52 mg/dL (1-14) H 06/30/18 09:34 - VTE Documentation of Mechanical Device: Intermittent pneumatic compression device Consult Discharge Plan - Plan Referrals: Sheryl Stahl TITLE I DIRECTOR [Primary Care Provider] -
[2018-07-15] MEDS: Insulin DETEMIR 100 UNIT/ML X5UNITS SQ SCH ×2 (11:50→21:03)
[2018-07-15] MEDS: FentaNYL (PF) 2,500 MCG in EMPTY BAG 1 EACH IVC SCH (16:29)
[2018-07-16] MEDS: Dexmedetomidine HCl 400 MCG/100 ML MLS IVC SCH ×7 (01:30→23:41)
[2018-07-16 03:28] LABS: Basophils % 0.4 %; Eosinophils # 0.9 K/mcL (0.0-0.6); Eosinophils % 8.7 %; Hematocrit 21.6 % (37.5-50.1); Hemoglobin 6.7 g/dL (12.9-16.9); Lymphocytes # 2.1 K/mcL (0.6-4.6); Lymphocytes % 20.9 %; Mean Corpuscular Hemoglobin 31.5 pg (28.0-33.3); Mean Corpuscular Volume 101.4 fL (83.0-100.0); Mean Platelet Volume 11.9 fL (9.4-12.4); Monocytes # 0.7 K/mcL (0.0-1.3); Nucleated Red Blood Cells 0.2 /100 WBC (0); Platelet Count 277 K/mcL (140-400); Red Blood Count 2.13 M/mcL (4.19-5.50); Red Cell Distribution Width 15.3 % (11.5-14.5)
[2018-07-16] MEDS: Piperacillin/Tazobactam 3.375 GM in 0.9 % Sodium Chloride Mini Bag 100 ML IVPB SCH ×3 (03:31→19:40)
[2018-07-16 03:33] LABS: INR 1.2
[2018-07-16] MEDS: Artificial Tears SOLN 15 ML BOTTLE BOTH EYES SCH ×6 (03:33→22:59)
[2018-07-16] MEDS: Insulin LISPRO 300 UNITS/3 ML VIAL SQ SCH ×5 (03:34→20:09)
[2018-07-16 03:36] LABS: Activated Partial Thrombo Time 31.2 Seconds (26.0-36.0)
[2018-07-16 03:44] LABS: VBG Ionized Calcium 1.25 mmol/L (1.15-1.35)
[2018-07-16 03:47] LABS: Albumin 2.6 g/dL (3.5-5.7); Magnesium 1.9 mg/dL (1.6-2.6); Phosphorous 3.5 mg/dL (2.7-4.5)
[2018-07-16 03:48] LABS: BUN/Creatinine Ratio 19 (6-26); Blood Urea Nitrogen 21 mg/dL (6-20); Calcium 8.7 mg/dL (8.6-10.3); Carbon Dioxide 25 mEq/L (23-29); Chloride 108 mEq/L (98-107); Glucose 154 mg/dL (70-105); Osmolality,Calculated 296 (280-300); Potassium 3.5 mEq/L (3.5-5.1); Sodium 140 mEq/L (136-145); eGFR For Non-African Americans > 60 (> 60)
[2018-07-16] MEDS: *HR* Heparin 5,000 UNIT/ML VIAL SQ SCH ×2 (05:13→17:59)
[2018-07-16] MEDS ORDERED: 0.9 % Sodium Chloride 250 ML ONE (06:28)
--- NOTE | 2018-07-16 07:31 | Event Note ---
Date of Encounter: 07/16/18 Time of Encounter: 07:30 Nephrology Chart Review With the hypernatremia and hypokalemia nicely controlled, plus with his LUCILA having resolved, I will sign-off at this point. Please feel free to call or page with any questions. Thank you.
--- NOTE | 2018-07-16 07:44 | Pulmonology Progress Note ---
<Maximo Mcdaniel W - Last Filed: 07/16/18 07:44> Date of Encounter: 07/16/18 Assessment and Plan (1) Acute respiratory failure with hypoxia and hypercapnia Current Visit: Yes Status: Acute (2) Septic shock Current Visit: Yes Status: Acute (3) LUCILA (acute kidney injury) Current Visit: Yes Status: Acute (4) Type 2 diabetes mellitus Current Visit: Yes Status: Chronic Qualifiers: Diabetes mellitus intermediate insulin use: with intermediate use Diabetes mellitus complication status: with unspecified complications Qualified Code(s) : E11.8 - Type 2 diabetes mellitus with unspecified complications; Z79.4 - MCFP (current) use of insulin (5) Encephalopathy Current Visit: Yes Status: Acute (6) Hypernatremia Current Visit: Yes Status: Acute (7) Healthcare-associated pneumonia Current Visit: Yes Status: Acute (8) Diabetes insipidus, neurohypophyseal Current Visit: Yes Status: Suspected Objective PUL Vital signs: Last Vital Signs Temp 98.4 F 07/16/18 07:03 Pulse 91 07/16/18 07:03 Resp 29 07/16/18 07:03 BP 133/86 07/16/18 07:03 Pulse Ox 96 07/16/18 07:03 Ventilator Settings Ventilator Settings: Ventilator Settings, Last 8 Hours Ventilator Tidal Volume 460 Setting Ventilator Tidal Volume 460 Setting Ventilator Tidal Volume 460 Setting Ventilator Tidal Volume 460 Setting Ventilator Tidal Volume 460 Setting Ventilator Tidal Volume 460 Setting Ventilator Tidal Volume 460 Setting Ventilator Tidal Volume 460 Setting Ventilator Tidal Volume 460 Setting Ventilator Tidal Volume 460 Setting Ventilator Respiratory Rate 16 Setting Ventilator Respiratory Rate 16 Setting Ventilator Respiratory Rate 16 Setting Ventilator Respiratory Rate 16 Setting Ventilator Respiratory Rate 16 Setting Ventilator Respiratory Rate 16 Setting Ventilator Respiratory Rate 16 Setting Ventilator Respiratory Rate 16 Setting Ventilator Respiratory Rate 16 Setting Ventilator Respiratory Rate 16 Setting Actual Respiratory Rate 43 Actual Respiratory Rate 16 Actual Respiratory Rate 21 Actual Respiratory Rate 20 Actual Respiratory Rate 18 Actual Respiratory Rate 18 Actual Respiratory Rate 16 Actual Respiratory Rate 16 Actual Respiratory Rate 16 Actual Respiratory Rate 16 Actual Respiratory Rate 21 Positive End Expiratory 5 Pressure Positive End Expiratory 5 Pressure Positive End Expiratory 5 Pressure Positive End Expiratory 5 Pressure Positive End Expiratory 5 Pressure Positive End Expiratory 5 Pressure Positive End Expiratory 5 Pressure Positive End Expiratory 5 Pressure Positive End Expiratory 5 Pressure Positive End Expiratory 5 Pressure Positive End Expiratory 5 Pressure Peak Inspiratory Airway 50 Pressure Peak Inspiratory Airway 26 Pressure Peak Inspiratory Airway 27 Pressure Peak Inspiratory Airway 28 Pressure Peak Inspiratory Airway 23 Pressure Peak Inspiratory Airway 23 Pressure Peak Inspiratory Airway 32 Pressure Peak Inspiratory Airway 28 Pressure Peak Inspiratory Airway 25 Pressure Peak Inspiratory Airway 28 Pressure Peak Inspiratory Airway 28 Pressure Results - Laboratory Findings CBC and BMP: 07/16/18 03:20 07/16/18 03:20 ABG ABG pH 7.38 pH Units (7.32-7.45) 07/12/18 05:14 ABG pCO2 52 mmHg (35-45) H 07/12/18 05:14 ABG pO2 68 mmHg (85-104) L 07/12/18 05:14 ABG O2 Saturation 93 % (95-98) L 07/12/18 05:14 PT/INR, D-dimer PT 14.0 Seconds (9.4-12.1) H 07/16/18 03:20 D-Dimer 3465 ng/mLFEU (0-500) H 06/18/18 08:08 Abnormal lab findings: Abnormal lab results RBC 2.13 M/mcL (4.19-5.50) L 07/16/18 03:20 Hgb 6.7 g/dL (12.9-16.9) L 07/16/18 03:20 Hct 21.6 % (37.5-50.1) L 07/16/18 03:20 MCV 101.4 fL (83.0-100.0) H 07/16/18 03:20 MCHC 31.0 g/dL (31.6-35.5) L 07/16/18 03:20 RDW 15.3 % (11.5-14.5) H 07/16/18 03:20 Band Neutrophils % 6.0 % (0-4) H 06/27/18 03:00 Metamyelocytes % 2.0 % (0) H 06/27/18 03:00 Myelocytes % 6.0 % (0) H 06/27/18 03:00 Eosinophils # 0.9 K/mcL (0.0-0.6) H 07/16/18 03:20 Nucleated RBCs/100 WBC 0.2 /100 WBC (0) H 07/16/18 03:20 Reactive Lymphocytes Present (Not Present) A 07/01/18 03:00 Toxic Granulation Present (Not Present) A 06/18/18 03:05 Toxic Vacuolation Present (Not Present) A 06/22/18 03:45 Large Platelets Present (Not Present) A 06/23/18 03:15 Polychromasia 1+ (Not Present) A 06/27/18 03:00 Basophilic Stippling 1+ (Not Present) A 06/26/18 04:00 Anisocytosis 1+ (Not Present) A 06/28/18 03:30 Macrocytosis Present (Not Present) A 06/26/18 04:00 PT 14.0 Seconds (9.4-12.1) H 07/16/18 03:20 Fibrinogen 578 mg/dL (169-393) H 06/18/18 08:08 D-Dimer 3465 ng/mLFEU (0-500) H 06/18/18 08:08 ABG pCO2 52 mmHg (35-45) H 07/12/18 05:14 ABG pO2 68 mmHg (85-104) L 07/12/18 05:14 ABG HCO3 31 mEq/L (21-27) H 07/12/18 05:14 ABG Total CO2 32 mEq/L (20-26) H 07/12/18 05:14 ABG O2 Saturation 93 % (95-98) L 07/12/18 05:14 ABG Base Excess 5 mEq/L (-2 to 3) H 07/12/18 05:14 Chloride 108 mEq/L (98-107) H 07/16/18 03:20 BUN 21 mg/dL (6-20) H 07/16/18 03:20 Glucose 154 mg/dL (70-105) H 07/16/18 03:20 POC Glucose 155 mg/dL (70-99) H 07/16/18 07:36 Serum Osmolality 310 mOsm/kg (280-300) H 07/10/18 08:30 Iron < 10 mcg/dL (65-175) L 07/01/18 03:00 Transferrin 146 mg/dL (203-362) L 07/01/18 03:00 Ferritin 647 ng/mL (20-250) H 07/01/18 03:00 Direct Bilirubin 0.4 mg/dL (0.0-0.2) H 06/23/18 03:15 Troponin I 0.92 ng/mL (< 0.04) H* 06/17/18 22:33 Albumin 2.6 g/dL (3.5-5.7) L 07/16/18 03:20 Globulin 4.0 g/dL (2.4-3.5) H 07/12/18 03:00 Albumin/Globulin Ratio 0.7 (1.1-2.2) L 07/12/18 03:00 Amylase 20 Units/L (29-103) L 06/23/18 16:27 Folate 2.5 ng/mL (3.0-16.0) L 06/27/18 11:25 Procalcitonin 107.11 ng/mL (<=0.07) H 06/17/18 16:40 TSH 7.234 mcIU/mL (0.340-5.600) H 06/27/18 11:25 Urine Protein 30 mg/dL (Neg-Trace) H 07/11/18 05:22 Urine Blood Large (Negative) H 07/11/18 05:22 Ur Leukocyte Esterase Small (Negative) H 07/11/18 05:22 Urine Microscopic WBC 5-15 per hpf (0-3) H 07/11/18 05:22 Ur Squamous Epith Cells Many per lpf (None-Few) H 07/11/18 05:22 Ur Culture Indicated? NO. (NO) A 07/11/18 05:22 Urine Osmolality 287 mOsm/kg (300-1090) L 07/10/18 08:30 Protein/Creatinin Ratio 1.68 mg/mg (0.00-0.20) H 06/30/18 09:34 Urine Total Protein 52 mg/dL (1-14) H 06/30/18 09:34 Vancomycin Trough 16 mcg/mL (5-10) H 07/15/18 08:00 Urine Opiates Screen Positive ng/mL (Nmdllh=393) H 06/18/18 10:37 U Benzodiazepines Scrn Positive ng/mL (Xqmzem=621) H 06/18/18 10:37 HSV I DETECTED (Not Detect) A 06/24/18 15:10 - Microbiology Findings Microbiology Findings: Microbiology, Last 48 Hours 07/11/18 05:20 Blood Culture - Final Central Venous Catheter No growth. Final report. 07/11/18 05:11 Blood Culture - Final Peripheral Venipuncture No growth. Final report. - Clinical Findings Intake & Output: Intake & Output 09/07/15/18 07/16/18 15:59 23:59 07:59 Intake Total 2755 / 2755 2544 / 2544 811 / 811 Output Total 1100 / 1100 1050 / 1050 200 / 200 Balance 1655 / 1655 1494 / 1494 611 / 611 Weight 115 kg Consult Discharge Plan - Plan Referrals: Sheryl Stahl, GROUP TESTER [Primary Care Provider] - - Attending Attestation I examined this patient and my medical decision-making was reviewed with the Resident Physician. I agree with the documented findings, disposition and treatment plan as described except to the extent set forth below. We independently had [id number] contact with the patient me. Patient seen and examined at bedside Labs, radiology, chart personally reviewed. Management was reviewed during multidisciplinary critical care rounds. SECURITY ROVER: Mild mixed delirium generally improving he appears much more calm and able to follow commands today; We will focus on sikhism of sleep-wake cycle. avoid sensory deprivation, and avoid SECURITY ROVER depressant medications as able. Pulm: Acceptable oxygenation today patient doing well on spontaneous breathing trial will continue inspiratory pressure augmentation as tolerated today and transition to assist control at night status post tracheostomy placement which is in satisfactory position Cards: Monitored on telemetry remains hemodynamically stable GI: GI prophylaxis have been given Nutrition: Continue enteral nutrition per dietary recommendations Renal: UOP Monitored, Cont to Trend sCr and monitor Electrolytes. ID: The patient is on antibiotics with planned to de-escalate per ID recommendations for pneumonia and urinary tract infection Heme/Onc: DVT prophylaxis given. Slight drop in H&H which has been trending down slowly I think this is related to frequent blood draws and critical illness transfusing 2 units pack red blood cells today Endo: Glucose Monitored continue basal bolus insulin dosing Integ/MSK: Skin Care per routine ICU Nursing Protocol to prevent ulcers. Lines: All lines examined without evidence of infection : Dispo: Plan for transfer to long-term acute care facility once accepted/cleared from social work standpoint CODE: Full - updated at bedside <Maria GBonnie E - Last Filed: 07/16/18 11:31> Date of Encounter: 07/16/18 Time of Encounter: 07:41 Assessment and Plan (1) Septic shock Current Visit: Yes Status: Acute sepsis suspected secondary to karo fungemia. Acyclovir stopped 07/09/18. Urine shows e.coli on urine culture from 07/01/18. Currently on Vanomycin and Zosyn for e.coli UTI and acinitobacter pneumonia, possible sinusitis noted on CT.- ID wants to continue this at this time (2) Acute respiratory failure with hypoxemia Current Visit: Yes Status: Acute Pt had a tracheostomy placed on 07/11/18, stable on ventilator, will continue to monitor respiratory status (3) Pneumonia Current Visit: Yes Status: Suspected Patient on zosyn and vancomysin per ID Sputum culture positive for acinitobacter Qualifiers: Pneumonia type: due to unspecified organism Laterality: bilateral Lung location: lower lobe of lung Qualified Code(s): J18.1 - Lobar pneumonia, unspecified organism (4) Oral lesion Current Visit: Yes Status: Resolved Noted on tongue PCR positive for HSV1 Acyclovir stopped 07/09/18 (5) COPD (chronic obstructive pulmonary disease) Current Visit: Yes Status: Chronic Patient had tracheostomy placed 07/11/18, stable on ventilator, will continue to monitor Qualifiers: COPD type: emphysema Emphysema type: unspecified Qualified Code(s): J43.9 - Emphysema, unspecified (6) LUCILA (acute kidney injury) Current Visit: Yes Status: Acute Nephrology following. Patient on intermittent dialysis. Hypernatremia being managed by 4mg dDAVP daily creatinine is improving free water 150 q4 through peg (7) Hypocalcemia Current Visit: Yes Status: Resolved Continue to monitor. Calcium is stable today. Replace if necessary (8) Hypernatremia Current Visit: Yes Status: Acute 4mg dDAVP daily to manage Na+ levels Free water 150 Q4 PEG (9) Hypokalemia Current Visit: Yes Status: Resolved Continue to monitor and replace as necessary (10) Encephalopathy Current Visit: Yes Status: Acute Patient was more alert this morning able to follow simple commands, nodded head no when asked about pain. Acyclovir stopped on 07/09/18 (11) Thrombocytopenia Current Visit: Yes Status: Resolved Platelets have been stable. Continue to monitor. 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 No heparin was in use in the lines which could have caused the excessive clotting on dialysis filter. Also, platelet count could have been decreased do to septic shock. Heparin was restarted, platelets continue to be stable (13) Type 2 diabetes mellitus Current Visit: Yes Status: Chronic 25 units BID Levamir high dose sliding scale We will continue to monitor Qualifiers: Diabetes mellitus medical terminologist insulin use: with intermediate use Diabetes mellitus complication status: with unspecified complications Qualified Code(s) : E11.8 - Type 2 diabetes mellitus with unspecified complications; Z79.4 - MCFP (current) use of insulin (14) UTI (urinary tract infection) Current Visit: Yes Status: Acute Urine culture from 07/01/18 grew gram negative brook Currently on vancomycin and zosyn Qualifiers: Urinary tract infection type: site unspecified Hematuria presence: without hematuria Qualified Code(s): N39.0 - Urinary tract infection, site not specified (15) DVT prophylaxis Current Visit: Yes Status: Acute ECPDs Heparin 5000 units sub q Subjective Principal diagnosis: septic shock Interval history: Mr. Mccarthy was seen at bedside this morning. He had a tracheotomy placed 07/11/18. PEG tube placed 07/12/18. Creatinine decreasing currently on 4mg dDAVP daily for sodium stabilization. Currently on Vancomycin and Zosyn for e.coli UTI, and acinitobacter pneumonia, and possible sinusitis. Currently on fentanyl, precedex and 25mg BID Seroquil. Discharge planning per social work therapist has been started for transfer to LTAC Patient is easily awaken, does follow commands. Objective PUL Vital signs: Last Vital Signs Temp 98.4 F 07/16/18 07:03 Pulse 91 07/16/18 07:03 Resp 29 07/16/18 07:03 BP 133/86 07/16/18 07:03 Pulse Ox 96 07/16/18 07:03 General appearance: appears uncomfortable Eyes: nonicteric ENT: oropharynx dry Neck: no lymphadenopathy Effort: normal Auscultation: bilateral: diminished breath sounds (lower lobes), wheezes (upper lobes, expiratory) Cardiovascular: regular rate and rhythm Gastrointestinal: normoactive bowel sounds, soft, non-tender Integumentary: normal Extremities: no cyanosis, pink and warm, edema (1+ at feet) pupils equal and round Ventilator Settings Ventilator Settings: Ventilator Settings, Last 8 Hours Ventilator Tidal Volume 460 Setting Ventilator Tidal Volume 460 Setting Ventilator Tidal Volume 460 Setting Ventilator Tidal Volume 460 Setting Ventilator Tidal Volume 460 Setting Ventilator Tidal Volume 460 Setting Ventilator Tidal Volume 460 Setting Ventilator Tidal Volume 460 Setting Ventilator Tidal Volume 460 Setting Ventilator Tidal Volume 460 Setting Ventilator Respiratory Rate 16 Setting Ventilator Respiratory Rate 16 Setting Ventilator Respiratory Rate 16 Setting Ventilator Respiratory Rate 16 Setting Ventilator Respiratory Rate 16 Setting Ventilator Respiratory Rate 16 Setting Ventilator Respiratory Rate 16 Setting Ventilator Respiratory Rate 16 Setting Ventilator Respiratory Rate 16 Setting Ventilator Respiratory Rate 16 Setting Actual Respiratory Rate 43 Actual Respiratory Rate 16 Actual Respiratory Rate 21 Actual Respiratory Rate 20 Actual Respiratory Rate 18 Actual Respiratory Rate 18 Actual Respiratory Rate 16 Actual Respiratory Rate 16 Actual Respiratory Rate 16 Actual Respiratory Rate 16 Actual Respiratory Rate 21 Positive End Expiratory 5 Pressure Positive End Expiratory 5 Pressure Positive End Expiratory 5 Pressure Positive End Expiratory 5 Pressure Positive End Expiratory 5 Pressure Positive End Expiratory 5 Pressure Positive End Expiratory 5 Pressure Positive End Expiratory 5 Pressure Positive End Expiratory 5 Pressure Positive End Expiratory 5 Pressure Positive End Expiratory 5 Pressure Peak Inspiratory Airway 50 Pressure Peak Inspiratory Airway 26 Pressure Peak Inspiratory Airway 27 Pressure Peak Inspiratory Airway 28 Pressure Peak Inspiratory Airway 23 Pressure Peak Inspiratory Airway 23 Pressure Peak Inspiratory Airway 32 Pressure Peak Inspiratory Airway 28 Pressure Peak Inspiratory Airway 25 Pressure Peak Inspiratory Airway 28 Pressure Peak Inspiratory Airway 28 Pressure Results - Laboratory Findings CBC and BMP: 07/16/18 03:20 07/16/18 03:20 ABG ABG pH 7.38 pH Units (7.32-7.45) 07/12/18 05:14 ABG pCO2 52 mmHg (35-45) H 07/12/18 05:14 ABG pO2 68 mmHg (85-104) L 07/12/18 05:14 ABG O2 Saturation 93 % (95-98) L 07/12/18 05:14 PT/INR, D-dimer PT 14.0 Seconds (9.4-12.1) H 07/16/18 03:20 D-Dimer 3465 ng/mLFEU (0-500) H 06/18/18 08:08 Abnormal lab findings: Abnormal lab results RBC 2.13 M/mcL (4.19-5.50) L 07/16/18 03:20 Hgb 6.7 g/dL (12.9-16.9) L 07/16/18 03:20 Hct 21.6 % (37.5-50.1) L 07/16/18 03:20 MCV 101.4 fL (83.0-100.0) H 07/16/18 03:20 MCHC 31.0 g/dL (31.6-35.5) L 07/16/18 03:20 RDW 15.3 % (11.5-14.5) H 07/16/18 03:20 Band Neutrophils % 6.0 % (0-4) H 06/27/18 03:00 Metamyelocytes % 2.0 % (0) H 06/27/18 03:00 Myelocytes % 6.0 % (0) H 06/27/18 03:00 Eosinophils # 0.9 K/mcL (0.0-0.6) H 07/16/18 03:20 Nucleated RBCs/100 WBC 0.2 /100 WBC (0) H 07/16/18 03:20 Reactive Lymphocytes Present (Not Present) A 07/01/18 03:00 Toxic Granulation Present (Not Present) A 06/18/18 03:05 Toxic Vacuolation Present (Not Present) A 06/22/18 03:45 Large Platelets Present (Not Present) A 06/23/18 03:15 Polychromasia 1+ (Not Present) A 06/27/18 03:00 Basophilic Stippling 1+ (Not Present) A 06/26/18 04:00 Anisocytosis 1+ (Not Present) A 06/28/18 03:30 Macrocytosis Present (Not Present) A 06/26/18 04:00 PT 14.0 Seconds (9.4-12.1) H 07/16/18 03:20 Fibrinogen 578 mg/dL (169-393) H 06/18/18 08:08 D-Dimer 3465 ng/mLFEU (0-500) H 06/18/18 08:08 ABG pCO2 52 mmHg (35-45) H 07/12/18 05:14 ABG pO2 68 mmHg (85-104) L 07/12/18 05:14 ABG HCO3 31 mEq/L (21-27) H 07/12/18 05:14 ABG Total CO2 32 mEq/L (20-26) H 07/12/18 05:14 ABG O2 Saturation 93 % (95-98) L 07/12/18 05:14 ABG Base Excess 5 mEq/L (-2 to 3) H 07/12/18 05:14 Chloride 108 mEq/L (98-107) H 07/16/18 03:20 BUN 21 mg/dL (6-20) H 07/16/18 03:20 Glucose 154 mg/dL (70-105) H 07/16/18 03:20 POC Glucose 155 mg/dL (70-99) H 07/16/18 07:36 Serum Osmolality 310 mOsm/kg (280-300) H 07/10/18 08:30 Iron < 10 mcg/dL (65-175) L 07/01/18 03:00 Transferrin 146 mg/dL (203-362) L 07/01/18 03:00 Ferritin 647 ng/mL (20-250) H 07/01/18 03:00 Direct Bilirubin 0.4 mg/dL (0.0-0.2) H 06/23/18 03:15 Troponin I 0.92 ng/mL (< 0.04) H* 06/17/18 22:33 Albumin 2.6 g/dL (3.5-5.7) L 07/16/18 03:20 Globulin 4.0 g/dL (2.4-3.5) H 07/12/18 03:00 Albumin/Globulin Ratio 0.7 (1.1-2.2) L 07/12/18 03:00 Amylase 20 Units/L (29-103) L 06/23/18 16:27 Folate 2.5 ng/mL (3.0-16.0) L 06/27/18 11:25 Procalcitonin 107.11 ng/mL (<=0.07) H 06/17/18 16:40 TSH 7.234 mcIU/mL (0.340-5.600) H 06/27/18 11:25 Urine Protein 30 mg/dL (Neg-Trace) H 07/11/18 05:22 Urine Blood Large (Negative) H 07/11/18 05:22 Ur Leukocyte Esterase Small (Negative) H 07/11/18 05:22 Urine Microscopic WBC 5-15 per hpf (0-3) H 07/11/18 05:22 Ur Squamous Epith Cells Many per lpf (None-Few) H 07/11/18 05:22 Ur Culture Indicated? NO. (NO) A 07/11/18 05:22 Urine Osmolality 287 mOsm/kg (300-1090) L 07/10/18 08:30 Protein/Creatinin Ratio 1.68 mg/mg (0.00-0.20) H 06/30/18 09:34 Urine Total Protein 52 mg/dL (1-14) H 06/30/18 09:34 Vancomycin Trough 16 mcg/mL (5-10) H 07/15/18 08:00 Urine Opiates Screen Positive ng/mL (Gzfeps=142) H 06/18/18 10:37 U Benzodiazepines Scrn Positive ng/mL (Fefbec=955) H 06/18/18 10:37 HSV I DETECTED (Not Detect) A 06/24/18 15:10 - Microbiology Findings Microbiology Findings: Microbiology, Last 48 Hours 07/11/18 05:20 Blood Culture - Final Central Venous Catheter No growth. Final report. 07/11/18 05:11 Blood Culture - Final Peripheral Venipuncture No growth. Final report. - Clinical Findings Intake & Output: Intake & Output 07/15/18 07/15/18 07/16/18 15:59 23:59 07:59 Intake Total 2755 / 2755 2544 / 2544 811 / 811 Output Total 1100 / 1100 1050 / 1050 200 / 200 Balance 1655 / 1655 1494 / 1494 611 / 611 Weight 115 kg - VTE Documentation of Mechanical Device: Intermittent pneumatic compression device
[2018-07-16] MEDS: Chlorhexidine Rinse 15 ML MOUTHWASH MM SCH ×2 (08:17→19:40)
[2018-07-16] MEDS: Ferrous Sulfate Oral Soln 300 MG/5 ML UDC GTUBE SCH (08:17)
[2018-07-16] MEDS: DESMOPRESSIN IVPB SCH (08:17)
[2018-07-16] MEDS: Potassium Chloride Elixir 20 MEQ/15 ML UDC PO SCH (08:17)
[2018-07-16] MEDS: SODIUM CHLORIDE 0.9% IVPB SCH (08:17)
[2018-07-16] MEDS: Cyanocobalamin (B-12) 1,000 MCG TABLET PO SCH (08:18)
[2018-07-16] MEDS: Folic Acid 1 MG TABLET PO SCH (08:18)
[2018-07-16] MEDS: Pantoprazole 40 MG VIAL IVP SCH (08:18)
[2018-07-16] MEDS: Insulin DETEMIR 100 UNIT/ML X5UNITS SQ SCH ×2 (08:20→20:09)
[2018-07-16] MEDS: FentaNYL (PF) 2,500 MCG in EMPTY BAG 1 EACH IVC SCH (11:29)
--- NOTE | 2018-07-16 13:09 | Infectious Disease Progress No ---
Date of Encounter: 07/16/18 Time of Encounter: 08:50 - Assessment and Plan (1) Septic shock Current Visit: Yes Status: Acute The patient had 4 SIRS criteria plus lactic acidosis, acute kidney injury, acute encephalopathy, and hypotension requiring vasopressors. Likely secondary to candidemia, UTI, possible HSV encephalitis, and PNA. Improved. Leukocytosis resolved. Afebrile. Tachycardia resolved. Remains off vasopressors. Blood cultures obtained 06/17/18 are +2 out of 2 sets for Marisela albicans, nation- sensitive. Repeat blood cultures obtained 06/19/18 are negative 2 sets. Additional blood cultures drawn 07/04/18 are negative x [address] head showed partial opacification of the left sphenoid sinus and mastoid air cells. Continue Vancomycin IV. Pharmacy to dose. Goal trough ~15. Continue Zosyn 3.375 grams IV Q8H. Duration of treatment depends on the clinical picture. Monitor renal function and dose-adjust antibiotics. (2) Candidemia Current Visit: Yes Status: Resolved Causative organism: Marisela albicans. Source: unclear. CT of the abdomen and pelvis is negative. He has no indwelling lines or catheters. His urine culture is positive for C. albicans. Blood cultures obtained 06/17/18 are +2 out of 2 sets for Marisela albicans, nation- sensitive. Repeat blood cultures obtained 06/19/18 are negative 2 sets. Additional blood cultures 07/04/18 are negative x 2 sets. Repeat LFTs normal. Completed 14 days of IV fluconazole. Resolved. Ophthalmology consult noted and appreciated. (3) Pneumonia Current Visit: Yes Status: Acute Location: Bilateral lower lobes. Causative organism: Unclear. Consider aspiration since the patient had altered mental status and was recently intubated. CT of the chest showed bilateral lower lobe infiltrates versus atelectasis. The patient does have a large amount of secretions coming from his ET tube. Discussed with the pulmonary team. Concern for pneumonia from their standpoint. MRSA screen completed 06/17/18 is negative. Initial sputum culture negative. Repeat Sputum culture 07/04/18 positive for A. baummannii. S. pneumo and Legionella UAT 06/20/18.--> negative. Repeat CXR 06/23/18 showed mild pulmonary vascular congestion and atelectasis and mild pleural effusion at the right lung base, increased. CT scan of the chest 06/23/18 negative for PNA. CXR 07/01/18 showed stable RLL disease and improved LLL disease. CXR 07/07/18 showed mild pulmonary vascular congestion and mild right pleural effusion. CXR 07/11/18 showed right basilar opacity and pulmonary edema. Vanc and Zosyn discontinued 06/25/18 after 9 days. Cefepime and Flagyl discontinued 07/11 after 5 days. Repeat CXR now 07/15/18 showed persistent RLL pneumonia. Continue Vancomycin and Zosyn as above. (day 6) Duration of treatment depends on the clinical picture. Monitor renal function and for drug toxicity and dose-adjust antibiotics. Qualifiers: Pneumonia type: due to unspecified organism Laterality: bilateral Lung location: lower lobe of lung Qualified Code(s): J18.1 - Lobar pneumonia, unspecified organism (4) UTI (urinary tract infection) Current Visit: Yes Status: Acute Causative organism 06/18/18: C. albicans. Completed 14+ days of fluconazole. Repeat urine culture 07/01/18 grew E. coli, resistant to ampicillin and Unasyn. Likely secondary to jacobo catheter. Completed 7 day course of Cefepime. Qualifiers: Urinary tract infection type: site unspecified Hematuria presence: without hematuria Qualified Code(s): N39.0 - Urinary tract infection, site not specified (5) Encephalopathy Current Visit: Yes Status: Acute Etiology unclear, but likely related to sepsis. Per the patient's , the patient did have any complaints of neck pain, stiffness, or headache. Unable to assess mental status since the patient remains intubated and sedated. CT head negative for intracranial abnormality. 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 LP attempted by the pulm/CC team and IR was unsuccessful. Neurology consulted. Appreciate recommendations. Signed off. Acyclovir stopped by the pulmonary team, re-started 07/04/18. Completed 14 days of IV acyclovir. Patient awake and more calm this morning. Per nursing, failed CPAP this morning. (6) LUCILA (acute kidney injury) Current Visit: Yes Status: Acute Likely multifactorial: sepsis + hypotension + other. CRRT started 06/19/18 and stopped 06/26/18. Creatinine improved. Urine output remains adequate. Nephrology consulted and signed off. Continue to trend. Dose-adjust medications. (7) Lactic acidosis Current Visit: Yes Status: Resolved Likely secondary to sepsis. Resolved. (8) Thrombocytopenia Current Visit: Yes Status: Resolved Likely secondary to sepsis. LFTs abnormal on admission. Repeat LFTs normal. Resolved Continue to trend. No acute bleeding noted on exam. Further workup and management per the primary team. (9) Acute respiratory failure with hypoxemia Current Visit: Yes Status: Acute Likely secondary to PNA vs. pulmonary edema. Extubated 07/01/18. Re-intubated 07/04/18. Status post trach/PEG 07/11/18. Management per the pulmonary team. (10) Hypokalemia Current Visit: Yes Status: Resolved Replacement per the primary team. (11) Elevated troponin Current Visit: Yes Status: Acute Management per the primary team. (12) Type 2 diabetes mellitus Current Visit: Yes Status: Chronic Recommend aggressive glucose monitoring and control. Management per the primary team. Qualifiers: Diabetes mellitus terminal system operator insulin use: with terminal system operator use Diabetes mellitus complication status: with unspecified complications Qualified Code(s) : E11.8 - Type 2 diabetes mellitus with unspecified complications; Z79.4 - technician terminal and repeater (current) use of insulin (13) COPD (chronic obstructive pulmonary disease) Current Visit: Yes Status: Chronic Qualifiers: COPD type: emphysema Emphysema type: unspecified Qualified Code(s): J43.9 - Emphysema, unspecified (14) Oral lesion Current Visit: Yes Status: Resolved Noted to the tongue. PCR positive for HSV 1. New lesion noted to the right nasolabial fold: HSV vs. other. Completed 14 days of acyclovir. Resolved. (15) Sinusitis Current Visit: Yes Status: Acute CT of the head 06/23/18 showed sinusitis of the bilateral sphenoid and ethmoid sinuses. Causative organism unclear. Treated with 9 days of Vanc and Zosyn. Repeat CT head 07/10/18 showed opacification of the left sphenoid sinus. Continue Vanc and Zosyn as above. Recommend ENT to evaluate. Qualifiers: Sinusitis location: unspecified location Chronicity: acute Recurrence: non-recurrent Qualified Code(s): J01.90 - Acute sinusitis, unspecified (16) Mastoiditis Current Visit: Yes Status: Suspected CT head showed opacitification of the left mastoid air cells concerning for mastoiditis. Recommend ENT to evaluate. Qualifiers: Laterality: left Qualified Code(s): H70.92 - Unspecified mastoiditis, left ear - Subjective Interval history: Patient seen and examined. No acute events noted overnight. Failed CPAP his morning. Follows some commands and states he has pain in his back. Does not answer other ROS questions. Status post trach and PEG over the weekend 07/11/18. Per nursing, tolerating tube feeds well and having stool from rectal tube. Planning transfer to [facility] when medically ready. Infect Dis PN-Objective Data - Labs CBC & Chem 7: 07/16/18 03:20 07/16/18 03:20 Labs: Laboratory Results - last 24 hr 07/15/18 07/15/18 07/15/18 12:20 15:31 19:32 WBC RBC Hgb Hct MCV MCH MCHC RDW Plt Count MPV Immature Gran % Seg Neutrophils % Lymphocytes % Monocytes % Eosinophils % Basophils % Neutrophils # Lymphocytes # Monocytes # Eosinophils # Basophils # Nucleated RBCs/100 WBC PT INR APTT Sodium Potassium Chloride Carbon Dioxide BUN Creatinine Est GFR ( Amer) Est GFR (Non-Af Amer) BUN/Creatinine Ratio Glucose POC Glucose 139 H 104 H Calculated Osmolality Calcium Venous Ioniz Calcium Phosphorus Magnesium 1.7 Albumin Blood Type Antibody Screen Crossmatch 07/15/18 07/16/18 07/16/18 23:11 03:20 03:20 WBC 9.8 RBC 2.13 L Hgb 6.7 L Hct 21.6 L MCV 101.4 H MCH 31.5 MCHC 31.0 L RDW 15.3 H Plt Count 277 MPV 11.9 Immature Gran % 2.0 Seg Neutrophils % 61.0 Lymphocytes % 20.9 Monocytes % 7.0 Eosinophils % 8.7 Basophils % 0.4 Neutrophils # 6.0 Lymphocytes # 2.1 Monocytes # 0.7 Eosinophils # 0.9 H Basophils # 0.0 Nucleated RBCs/100 WBC 0.2 H PT INR APTT Sodium 140 Potassium 3.5 Chloride 108 H Carbon Dioxide 25 BUN 21 H Creatinine 1.10 Est GFR ( Amer) > 60 Est GFR (Non-Af Amer) > 60 BUN/Creatinine Ratio 19 Glucose 154 H POC Glucose 99 Calculated Osmolality 296 Calcium 8.7 Venous Ioniz Calcium Phosphorus Magnesium Albumin Blood Type Antibody Screen Crossmatch 07/16/18 07/16/18 07/16/18 03:20 03:20 03:27 WBC RBC Hgb Hct MCV MCH MCHC RDW Plt Count MPV Immature Gran % Seg Neutrophils % Lymphocytes % Monocytes % Eosinophils % Basophils % Neutrophils # Lymphocytes # Monocytes # Eosinophils # Basophils # Nucleated RBCs/100 WBC PT 14.0 H INR 1.2 APTT 31.2 Sodium Potassium Chloride Carbon Dioxide BUN Creatinine Est GFR ( Amer) Est GFR (Non-Af Amer) BUN/Creatinine Ratio Glucose POC Glucose 159 H Calculated Osmolality Calcium Venous Ioniz Calcium Phosphorus 3.5 Magnesium 1.9 Albumin 2.6 L Blood Type Antibody Screen Crossmatch 07/16/18 07/16/18 07/16/18 03:32 04:50 07:36 WBC RBC Hgb Hct MCV MCH MCHC RDW Plt Count MPV Immature Gran % Seg Neutrophils % Lymphocytes % Monocytes % Eosinophils % Basophils % Neutrophils # Lymphocytes # Monocytes # Eosinophils # Basophils # Nucleated RBCs/100 WBC PT INR APTT Sodium Potassium Chloride Carbon Dioxide BUN Creatinine Est GFR ( Amer) Est GFR (Non-Af Amer) BUN/Creatinine Ratio Glucose POC Glucose 155 H Calculated Osmolality Calcium Venous Ioniz Calcium 1.25 Phosphorus Magnesium Albumin Blood Type A POSITIVE Antibody Screen NEGATIVE Crossmatch See Detail 07/16/18 11:23 WBC RBC Hgb Hct MCV MCH MCHC RDW Plt Count MPV Immature Gran % Seg Neutrophils % Lymphocytes % Monocytes % Eosinophils % Basophils % Neutrophils # Lymphocytes # Monocytes # Eosinophils # Basophils # Nucleated RBCs/100 WBC PT INR APTT Sodium Potassium Chloride Carbon Dioxide BUN Creatinine Est GFR ( Amer) Est GFR (Non-Af Amer) BUN/Creatinine Ratio Glucose POC Glucose 108 H Calculated Osmolality Calcium Venous Ioniz Calcium Phosphorus Magnesium Albumin Blood Type Antibody Screen Crossmatch Cultures: Cultures 07/11/18 05:20 Blood Culture - Final Central Venous Catheter No growth. Final report. 07/11/18 05:11 Blood Culture - Final Peripheral Venipuncture No growth. Final report. 07/04/18 11:59 Blood Culture - Final Peripheral Venipuncture No growth. Final report. 07/04/18 10:34 Blood Culture - Final Peripheral Venipuncture No growth. Final report. 07/04/18 07:38 Sputum Culture - Final Aspirate Acinetobacter baumannii complx 07/01/18 09:03 Urine Culture - Final Urine,Catheterized Escherichia coli 06/24/18 11:35 Blood Culture - Final Peripheral Venipuncture No growth. Final report. 06/24/18 11:35 Blood Culture - Final Peripheral Venipuncture No growth. Final report. 06/19/18 12:46 Blood Culture - Final Peripheral Venipuncture No growth. Final report. 06/19/18 12:46 Blood Culture - Final Peripheral Venipuncture No growth. Final report. 06/18/18 20:45 Sputum Culture - Final Sputum 06/20/18 11:30 Legionella Antigen - Final Urine,[place] Streptococcus pneumoniae Antigen (M - Final Serology 07/11/18 07/10/18 07/10/18 Range/Units 05:22 08:30 08:30 Urine Color Yellow (Yellow) Urine Clarity Hazy (Clear) Urine pH 5.5 (5.0-8.0) pH Units Ur Specific Allen 1.013 (1.010-1.025) Urine Protein 30 H (Neg-Trace) mg/dL Urine Glucose (UA) Normal (Normal) mg/dL Urine Ketones Negative (Negative) mg/dL Urine Blood Large H (Negative) Urine Nitrite Negative (Negative) Urine Bilirubin Negative (Negative) Urine Urobilinogen Normal (Normal) mg/dL Ur Leukocyte Esterase Small H (Negative) Urine Microscopic RBC 0-3 (0-3) per hpf Urine Microscopic WBC 5-15 H (0-3) per hpf Ur Eosinophil Smear (None Seen) % Ur Squamous Epith Cells Many H (None-Few) per lpf Urine Bacteria Few (None-Few) per hpf Hyaline Casts None Seen (None-Few) per lpf Ur Culture Indicated? NO. A (NO) Urine Osmolality 287 L (300-1090) mOsm/kg Urine Creatinine mg/dL Protein/Creatinin Ratio (0.00-0.20) mg/mg Urine Sodium 57.9 mEq/L Urine Potassium mEq/L Urine Chloride mEq/L Urine Total Protein (1-14) mg/dL Nasal Screen MRSA (PCR) (Negative) Chlamy pneumoniae PCR (Not Detect) Adenovirus (PCR) (Not Detect) B. pertussis DNA (PCR) (Not Detect) B.parapertussis DNA PCR (Not Detect) Coronavirus OC43 (PCR) (Not Detect) Coronavirus HKU1 (PCR) (Not Detect) Coronavirus 229E (PCR) (Not Detect) Coronavirus NL63 (PCR) (Not Detect) Hep Bs Antigen (Nonreactive) Hep Bs Antibody mIU/mL Herpes Simplex Source HSV I (Not Detect) HSV II (Not Detect) HIV Ag/Ab Combo Qual (Nonreactive) Human Metapneumovir PCR (Not Detect) Influenza A (H1) PCR (Not Detect) Influ A (H1N1/09) PCR (Not Detect) Influenza A (H3) PCR (Not Detect) Influenza A Untype (PCR) (Not Detect) Influenza Type B (PCR) (Not Detect) M.pneumoniae DNA (PCR) (Not Detect) Parainfluenza 1 (PCR) (Not Detect) Parainfluenza 2 (PCR) (Not Detect) Parainfluenza 3 (PCR) (Not Detect) Parainfluenza 4 (PCR) (Not Detect) RSV (PCR) (Not Detect) Entero/Rhino (PCR) (Not Detect) 07/09/18 07/09/18 07/05/18 Range/Units 10:00 10:00 17:50 Urine Color (Yellow) Urine Clarity (Clear) Urine pH (5.0-8.0) pH Units Ur Specific Allen (1.010-1.025) Urine Protein (Neg-Trace) mg/dL Urine Glucose (UA) (Normal) mg/dL Urine Ketones (Negative) mg/dL Urine Blood (Negative) Urine Nitrite (Negative) Urine Bilirubin (Negative) Urine Urobilinogen (Normal) mg/dL Ur Leukocyte Esterase (Negative) Urine Microscopic RBC (0-3) per hpf Urine Microscopic WBC (0-3) per hpf Ur Eosinophil Smear (None Seen) % Ur Squamous Epith Cells (None-Few) per lpf Urine Bacteria (None-Few) per hpf Hyaline Casts (None-Few) per lpf Ur Culture Indicated? (NO) Urine Osmolality 137 L (300-1090) mOsm/kg Urine Creatinine mg/dL Protein/Creatinin Ratio (0.00-0.20) mg/mg Urine Sodium 39.1 mEq/L Urine Potassium mEq/L Urine Chloride mEq/L Urine Total Protein (1-14) mg/dL Nasal Screen MRSA (PCR) Negative (Negative) Chlamy pneumoniae PCR (Not Detect) Adenovirus (PCR) (Not Detect) B. pertussis DNA (PCR) (Not Detect) B.parapertussis DNA PCR (Not Detect) Coronavirus OC43 (PCR) (Not Detect) Coronavirus HKU1 (PCR) (Not Detect) Coronavirus 229E (PCR) (Not Detect) Coronavirus NL63 (PCR) (Not Detect) Hep Bs Antigen (Nonreactive) Hep Bs Antibody mIU/mL Herpes Simplex Source HSV I (Not Detect) HSV II (Not Detect) HIV Ag/Ab Combo Qual (Nonreactive) Human Metapneumovir PCR (Not Detect) Influenza A (H1) PCR (Not Detect) Influ A (H1N1/09) PCR (Not Detect) Influenza A (H3) PCR (Not Detect) Influenza A Untype (PCR) (Not Detect) Influenza Type B (PCR) (Not Detect) M.pneumoniae DNA (PCR) (Not Detect) Parainfluenza 1 (PCR) (Not Detect) Parainfluenza 2 (PCR) (Not Detect) Parainfluenza 3 (PCR) (Not Detect) Parainfluenza 4 (PCR) (Not Detect) RSV (PCR) (Not Detect) Entero/Rhino (PCR) (Not Detect) 07/01/18 06/30/18 06/30/18 Range/Units 09:03 09:34 09:34 Urine Color Yellow (Yellow) Urine Clarity Clear (Clear) Urine pH 7.0 (5.0-8.0) pH Units Ur Specific Allen < 1.005 L (1.010-1.025) Urine Protein Trace (Neg-Trace) mg/dL Urine Glucose (UA) Normal (Normal) mg/dL Urine Ketones Negative (Negative) mg/dL Urine Blood Moderate H (Negative) Urine Nitrite Negative (Negative) Urine Bilirubin Negative (Negative) Urine Urobilinogen Normal (Normal) mg/dL Ur Leukocyte Esterase Moderate H (Negative) Urine Microscopic RBC 3-5 H (0-3) per hpf Urine Microscopic WBC 50-100 H (0-3) per hpf Ur Eosinophil Smear 0 (None Seen) % Ur Squamous Epith Cells None Seen (None-Few) per lpf Urine Bacteria Many H (None-Few) per hpf Hyaline Casts None Seen (None-Few) per lpf Ur Culture Indicated? (NO) Urine Osmolality (300-1090) mOsm/kg Urine Creatinine 31 mg/dL Protein/Creatinin Ratio 1.68 H (0.00-0.20) mg/mg Urine Sodium 40.6 mEq/L Urine Potassium mEq/L Urine Chloride mEq/L Urine Total Protein 52 H (1-14) mg/dL Nasal Screen MRSA (PCR) (Negative) Chlamy pneumoniae PCR (Not Detect) Adenovirus (PCR) (Not Detect) B. pertussis DNA (PCR) (Not Detect) B.parapertussis DNA PCR (Not Detect) Coronavirus OC43 (PCR) (Not Detect) Coronavirus HKU1 (PCR) (Not Detect) Coronavirus 229E (PCR) (Not Detect) Coronavirus NL63 (PCR) (Not Detect) Hep Bs Antigen (Nonreactive) Hep Bs Antibody mIU/mL Herpes Simplex Source HSV I (Not Detect) HSV II (Not Detect) HIV Ag/Ab Combo Qual (Nonreactive) Human Metapneumovir PCR (Not Detect) Influenza A (H1) PCR (Not Detect) Influ A (H1N1/09) PCR (Not Detect) Influenza A (H3) PCR (Not Detect) Influenza A Untype (PCR) (Not Detect) Influenza Type B (PCR) (Not Detect) M.pneumoniae DNA (PCR) (Not Detect) Parainfluenza 1 (PCR) (Not Detect) Parainfluenza 2 (PCR) (Not Detect) Parainfluenza 3 (PCR) (Not Detect) Parainfluenza 4 (PCR) (Not Detect) RSV (PCR) (Not Detect) Entero/Rhino (PCR) (Not Detect) 06/30/18 06/24/18 06/24/18 Range/Units 09:33 15:10 11:15 Urine Color Yellow (Yellow) Urine Clarity Hazy (Clear) Urine pH 6.0 (5.0-8.0) pH Units Ur Specific Allen 1.013 (1.010-1.025) Urine Protein 30 H (Neg-Trace) mg/dL Urine Glucose (UA) Normal (Normal) mg/dL Urine Ketones Negative (Negative) mg/dL Urine Blood Moderate H (Negative) Urine Nitrite Negative (Negative) Urine Bilirubin Small H (Negative) Urine Urobilinogen Normal (Normal) mg/dL Ur Leukocyte Esterase Moderate H (Negative) Urine Microscopic RBC 3-5 H (0-3) per hpf Urine Microscopic WBC 50-100 H (0-3) per hpf Ur Eosinophil Smear (None Seen) % Ur Squamous Epith Cells Many H (None-Few) per lpf Urine Bacteria None Seen (None-Few) per hpf Hyaline Casts None Seen (None-Few) per lpf Ur Culture Indicated? (NO) Urine Osmolality 200 L (300-1090) mOsm/kg Urine Creatinine mg/dL Protein/Creatinin Ratio (0.00-0.20) mg/mg Urine Sodium mEq/L Urine Potassium mEq/L Urine Chloride mEq/L Urine Total Protein (1-14) mg/dL Nasal Screen MRSA (PCR) (Negative) Chlamy pneumoniae PCR (Not Detect) Adenovirus (PCR) (Not Detect) B. pertussis DNA (PCR) (Not Detect) B.parapertussis DNA PCR (Not Detect) Coronavirus OC43 (PCR) (Not Detect) Coronavirus HKU1 (PCR) (Not Detect) Coronavirus 229E (PCR) (Not Detect) Coronavirus NL63 (PCR) (Not Detect) Hep Bs Antigen (Nonreactive) Hep Bs Antibody mIU/mL Herpes Simplex Source [place] HSV I DETECTED A (Not Detect) HSV II Not Detected (Not Detect) HIV Ag/Ab Combo Qual (Nonreactive) Human Metapneumovir PCR (Not Detect) Influenza A (H1) PCR (Not Detect) Influ A (H1N1/09) PCR (Not Detect) Influenza A (H3) PCR (Not Detect) Influenza A Untype (PCR) (Not Detect) Influenza Type B (PCR) (Not Detect) M.pneumoniae DNA (PCR) (Not Detect) Parainfluenza 1 (PCR) (Not Detect) Parainfluenza 2 (PCR) (Not Detect) Parainfluenza 3 (PCR) (Not Detect) Parainfluenza 4 (PCR) (Not Detect) RSV (PCR) (Not Detect) Entero/Rhino (PCR) (Not Detect) 06/23/18 06/23/18 06/20/18 Range/Units 20:00 08:10 11:30 Urine Color (Yellow) Urine Clarity (Clear) Urine pH (5.0-8.0) pH Units Ur Specific Allen (1.010-1.025) Urine Protein (Neg-Trace) mg/dL Urine Glucose (UA) (Normal) mg/dL Urine Ketones (Negative) mg/dL Urine Blood (Negative) Urine Nitrite (Negative) Urine Bilirubin (Negative) Urine Urobilinogen (Normal) mg/dL Ur Leukocyte Esterase (Negative) Urine Microscopic RBC (0-3) per hpf Urine Microscopic WBC (0-3) per hpf Ur Eosinophil Smear (None Seen) % Ur Squamous Epith Cells (None-Few) per lpf Urine Bacteria (None-Few) per hpf Hyaline Casts (None-Few) per lpf Ur Culture Indicated? (NO) Urine Osmolality (300-1090) mOsm/kg Urine Creatinine mg/dL Protein/Creatinin Ratio (0.00-0.20) mg/mg Urine Sodium mEq/L Urine Potassium mEq/L Urine Chloride mEq/L Urine Total Protein (1-14) mg/dL Nasal Screen MRSA (PCR) (Negative) Chlamy pneumoniae PCR Not Detected (Not Detect) Adenovirus (PCR) Not Detected (Not Detect) B. pertussis DNA (PCR) Not Detected (Not Detect) B.parapertussis DNA PCR Not Detected (Not Detect) Coronavirus OC43 (PCR) Not Detected (Not Detect) Coronavirus HKU1 (PCR) Not Detected (Not Detect) Coronavirus 229E (PCR) Not Detected (Not Detect) Coronavirus NL63 (PCR) Not Detected (Not Detect) Hep Bs Antigen Nonreactive (Nonreactive) Hep Bs Antibody 0.00 mIU/mL Herpes Simplex Source HSV I (Not Detect) HSV II (Not Detect) HIV Ag/Ab Combo Qual Nonreactive (Nonreactive) Human Metapneumovir PCR Not Detected (Not Detect) Influenza A (H1) PCR Not Detected (Not Detect) Influ A (H1N1/09) PCR Not Detected (Not Detect) Influenza A (H3) PCR Not Detected (Not Detect) Influenza A Untype (PCR) Not Detected (Not Detect) Influenza Type B (PCR) Not Detected (Not Detect) M.pneumoniae DNA (PCR) Not Detected (Not Detect) Parainfluenza 1 (PCR) Not Detected (Not Detect) Parainfluenza 2 (PCR) Not Detected (Not Detect) Parainfluenza 3 (PCR) Not Detected (Not Detect) Parainfluenza 4 (PCR) Not Detected (Not Detect) RSV (PCR) Not Detected (Not Detect) Entero/Rhino (PCR) Not Detected (Not Detect) 06/18/18 06/18/18 06/17/18 Range/Units 10:28 10:28 18:15 Urine Color (Yellow) Urine Clarity (Clear) Urine pH (5.0-8.0) pH Units Ur Specific Allen (1.010-1.025) Urine Protein (Neg-Trace) mg/dL Urine Glucose (UA) (Normal) mg/dL Urine Ketones (Negative) mg/dL Urine Blood (Negative) Urine Nitrite (Negative) Urine Bilirubin (Negative) Urine Urobilinogen (Normal) mg/dL Ur Leukocyte Esterase (Negative) Urine Microscopic RBC (0-3) per hpf Urine Microscopic WBC (0-3) per hpf Ur Eosinophil Smear (None Seen) % Ur Squamous Epith Cells (None-Few) per lpf Urine Bacteria (None-Few) per hpf Hyaline Casts (None-Few) per lpf Ur Culture Indicated? (NO) Urine Osmolality 343 (300-1090) mOsm/kg Urine Creatinine mg/dL Protein/Creatinin Ratio (0.00-0.20) mg/mg Urine Sodium 128.8 mEq/L Urine Potassium 36.5 7.5 mEq/L Urine Chloride 135 mEq/L Urine Total Protein (1-14) mg/dL Nasal Screen MRSA (PCR) (Negative) Chlamy pneumoniae PCR (Not Detect) Adenovirus (PCR) (Not Detect) B. pertussis DNA (PCR) (Not Detect) B.parapertussis DNA PCR (Not Detect) Coronavirus OC43 (PCR) (Not Detect) Coronavirus HKU1 (PCR) (Not Detect) Coronavirus 229E (PCR) (Not Detect) Coronavirus NL63 (PCR) (Not Detect) Hep Bs Antigen (Nonreactive) Hep Bs Antibody mIU/mL Herpes Simplex Source HSV I (Not Detect) HSV II (Not Detect) HIV Ag/Ab Combo Qual (Nonreactive) Human Metapneumovir PCR (Not Detect) Influenza A (H1) PCR (Not Detect) Influ A (H1N1/09) PCR (Not Detect) Influenza A (H3) PCR (Not Detect) Influenza A Untype (PCR) (Not Detect) Influenza Type B (PCR) (Not Detect) M.pneumoniae DNA (PCR) (Not Detect) Parainfluenza 1 (PCR) (Not Detect) Parainfluenza 2 (PCR) (Not Detect) Parainfluenza 3 (PCR) (Not Detect) Parainfluenza 4 (PCR) (Not Detect) RSV (PCR) (Not Detect) Entero/Rhino (PCR) (Not Detect) 06/17/18 06/17/18 Range/Units 11:56 11:30 Urine Color (Yellow) Urine Clarity (Clear) Urine pH (5.0-8.0) pH Units Ur Specific Allen (1.010-1.025) Urine Protein (Neg-Trace) mg/dL Urine Glucose (UA) (Normal) mg/dL Urine Ketones (Negative) mg/dL Urine Blood (Negative) Urine Nitrite (Negative) Urine Bilirubin (Negative) Urine Urobilinogen (Normal) mg/dL Ur Leukocyte Esterase (Negative) Urine Microscopic RBC (0-3) per hpf Urine Microscopic WBC (0-3) per hpf Ur Eosinophil Smear (None Seen) % Ur Squamous Epith Cells (None-Few) per lpf Urine Bacteria (None-Few) per hpf Hyaline Casts (None-Few) per lpf Ur Culture Indicated? (NO) Urine Osmolality (300-1090) mOsm/kg Urine Creatinine mg/dL Protein/Creatinin Ratio (0.00-0.20) mg/mg Urine Sodium mEq/L Urine Potassium mEq/L Urine Chloride mEq/L Urine Total Protein (1-14) mg/dL Nasal Screen MRSA (PCR) Negative (Negative) Chlamy pneumoniae PCR Not Detected (Not Detect) Adenovirus (PCR) Not Detected (Not Detect) B. pertussis DNA (PCR) Not Detected (Not Detect) B.parapertussis DNA PCR Not Detected (Not Detect) Coronavirus OC43 (PCR) Not Detected (Not Detect) Coronavirus HKU1 (PCR) Not Detected (Not Detect) Coronavirus 229E (PCR) Not Detected (Not Detect) Coronavirus NL63 (PCR) Not Detected (Not Detect) Hep Bs Antigen (Nonreactive) Hep Bs Antibody mIU/mL Herpes Simplex Source HSV I (Not Detect) HSV II (Not Detect) HIV Ag/Ab Combo Qual (Nonreactive) Human Metapneumovir PCR Not Detected (Not Detect) Influenza A (H1) PCR Not Detected (Not Detect) Influ A (H1N1/09) PCR Not Detected (Not Detect) Influenza A (H3) PCR Not Detected (Not Detect) Influenza A Untype (PCR) Not Detected (Not Detect) Influenza Type B (PCR) Not Detected (Not Detect) M.pneumoniae DNA (PCR) Not Detected (Not Detect) Parainfluenza 1 (PCR) Not Detected (Not Detect) Parainfluenza 2 (PCR) Not Detected (Not Detect) Parainfluenza 3 (PCR) Not Detected (Not Detect) Parainfluenza 4 (PCR) Not Detected (Not Detect) RSV (PCR) Not Detected (Not Detect) Entero/Rhino (PCR) Not Detected (Not Detect) Exam - Constitutional Vitals: Temp Pulse Resp BP Pulse Ox 97.8 F 69 18 120/78 95 07/16/18 11:00 07/16/18 12:00 07/16/18 12:00 07/16/18 12:00 07/16/18 12:00 General appearance: cooperative, no acute distress, obese - Head Head exam: Present: atraumatic, normal inspection, normocephalic - Eye Eye exam: Present: EOMI, normal appearance, PERRL Pupils: Present: normal accommodation - ENT ENT exam: Present: mucous membranes dry - Neck Neck exam: Present: normal inspection Additional comments: Tracheostomy midline with O2 via the vent. - Respiratory Respiratory exam: Present: rhonchi (Scattered). Absent: rales, respiratory distress, wheezes - Cardiovascular Cardiovascular exam: Present: RRR, +S1 - GI/Abdominal GI/Abdominal exam: Present: distended (obese), normal bowel sounds, soft. Absent: tenderness Additional comments: Rectal tube with liquid brown stool noted in the bag. Jacobo catheter noted to be draining clear yellow urine. - Extremities Exam Extremities exam: Present: normal inspection. Absent: joint swelling, pedal edema, tenderness - Neurological Exam Neurological exam: Present: alert, oriented X3, no focal deficits - Psychiatric Psychiatric exam: Present: normal affect, normal mood - Skin Skin exam: Present: dry, intact, normal color, warm - VTE Documentation of Mechanical Device: Intermittent pneumatic compression device Consult Discharge Plan - Plan Referrals: Sheryl Stahl, [employer] [Primary Care Provider] - - Attending Attestation I examined this patient and my medical decision-making was reviewed with the Resident Physician. I agree with the documented findings, disposition and treatment plan as described except to the extent set forth below.
[2018-07-16] MEDS ORDERED: Furosemide 40 MG/4 ML VIAL ONE (14:12)
[2018-07-16] MEDS ORDERED: Furosemide 40 MG/4 ML VIAL IVP ONE (14:18)
[2018-07-16 21:22] LABS: BUN/Creatinine Ratio 17 (6-26); Blood Urea Nitrogen 19 mg/dL (6-20); Carbon Dioxide 28 mEq/L (23-29); Chloride 110 mEq/L (98-107); Glucose 189 mg/dL (70-105); Osmolality,Calculated 301 (280-300); Potassium 4.5 mEq/L (3.5-5.1); Sodium 142 mEq/L (136-145); eGFR For Non-African Americans > 60 (> 60)
[2018-07-16 22:08] LABS: Hematocrit 26.2 % (37.5-50.1)
[2018-07-16 22:11] LABS: Hemoglobin 8.9 g/dL (12.9-16.9)
[2018-07-17] MEDS: Insulin LISPRO 300 UNITS/3 ML VIAL SQ SCH ×5 (00:08→16:08)
[2018-07-17] MEDS: Dexmedetomidine HCl 400 MCG/100 ML MLS IVC SCH ×5 (03:02→17:54)
[2018-07-17] MEDS: Piperacillin/Tazobactam 3.375 GM in 0.9 % Sodium Chloride Mini Bag 100 ML IVPB SCH ×2 (03:03→11:38)
[2018-07-17] MEDS: Artificial Tears SOLN 15 ML BOTTLE BOTH EYES SCH ×4 (03:09→15:22)
[2018-07-17 04:11] LABS: Basophils # 0.1 K/mcL (0.0-0.2); Basophils % 0.7 %; Eosinophils # 0.7 K/mcL (0.0-0.6); Eosinophils % 6.7 %; Hematocrit 27.2 % (37.5-50.1); Hemoglobin 8.9 g/dL (12.9-16.9); Immature Granulocytes % 1.3 % (0-4); Lymphocytes # 1.5 K/mcL (0.6-4.6); Lymphocytes % 15.2 %; Mean Corpuscular HGB Conc 32.7 g/dL (31.6-35.5); Mean Corpuscular Hemoglobin 31.8 pg (28.0-33.3); Mean Corpuscular Volume 97.1 fL (83.0-100.0); Monocytes # 0.8 K/mcL (0.0-1.3); Monocytes % 8.1 %; Neutrophils # 6.8 K/mcL (1.6-8.9); Platelet Count 297 K/mcL (140-400); Red Cell Distribution Width 15.9 % (11.5-14.5)
[2018-07-17 04:40] LABS: BUN/Creatinine Ratio 18 (6-26); Blood Urea Nitrogen 20 mg/dL (6-20); Calcium 8.8 mg/dL (8.6-10.3); Carbon Dioxide 29 mEq/L (23-29); Chloride 107 mEq/L (98-107); Glucose 192 mg/dL (70-105); Magnesium 1.9 mg/dL (1.6-2.6); Osmolality,Calculated 302 (280-300); Phosphorous 4.2 mg/dL (2.7-4.5); Potassium 3.9 mEq/L (3.5-5.1); Sodium 142 mEq/L (136-145); eGFR For Non-African Americans > 60 (> 60)
[2018-07-17] MEDS: FentaNYL (PF) 2,500 MCG in EMPTY BAG 1 EACH IVC SCH ×2 (05:05→13:09)
[2018-07-17] MEDS: *HR* Heparin 5,000 UNIT/ML VIAL SQ SCH ×2 (05:06→17:54)
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
[2018-07-17] MEDS: Pantoprazole 40 MG VIAL IVP SCH (08:11)
[2018-07-17] MEDS: Folic Acid 1 MG TABLET PO SCH (08:11)
[2018-07-17] MEDS: Cyanocobalamin (B-12) 1,000 MCG TABLET PO SCH (08:11)
[2018-07-17] MEDS: Ferrous Sulfate Oral Soln 300 MG/5 ML UDC GTUBE SCH (08:11)
[2018-07-17] MEDS: Potassium Chloride Elixir 20 MEQ/15 ML UDC PO SCH (08:11)
[2018-07-17] MEDS: Chlorhexidine Rinse 15 ML MOUTHWASH MM SCH (08:11)
[2018-07-17] MEDS: Insulin DETEMIR 100 UNIT/ML X5UNITS SQ SCH (08:15)
--- NOTE | 2018-07-17 08:37 | Infectious Disease Progress No ---
Date of Encounter: 07/17/18 Time of Encounter: 08:35 - Assessment and Plan (1) Septic shock Current Visit: Yes Status: Acute The patient had 4 SIRS criteria plus lactic acidosis, acute kidney injury, acute encephalopathy, and hypotension requiring vasopressors. Likely secondary to candidemia, UTI, possible HSV encephalitis, and PNA. Improved. Leukocytosis resolved. Afebrile. Tachycardia resolved. Remains off vasopressors. Blood cultures obtained 06/17/18 are +2 out of 2 sets for Marisela albicans, nation- sensitive. Repeat blood cultures obtained 06/19/18 are negative 2 sets. Additional blood cultures drawn 07/04/18 are negative x [address] head showed partial opacification of the left sphenoid sinus and mastoid air cells. Continue Vancomycin IV. Pharmacy to dose. Goal trough ~15. Continue Zosyn 3.375 grams IV Q8H. Duration of treatment depends on the clinical picture, but likely 10 days. Monitor renal function and dose-adjust antibiotics. (2) Candidemia Current Visit: Yes Status: Resolved Causative organism: Marisela albicans. Source: unclear. CT of the abdomen and pelvis is negative. He has no indwelling lines or catheters. His urine culture is positive for C. albicans. Blood cultures obtained 06/17/18 are +2 out of 2 sets for Marisela albicans, nation- sensitive. Repeat blood cultures obtained 06/19/18 are negative 2 sets. Additional blood cultures 07/04/18 are negative x 2 sets. Repeat LFTs normal. Completed 14 days of IV fluconazole. Resolved. Ophthalmology consult noted and appreciated. (3) Pneumonia Current Visit: Yes Status: Acute Location: Bilateral lower lobes. Causative organism: Unclear. Consider aspiration since the patient had altered mental status and was recently intubated. CT of the chest showed bilateral lower lobe infiltrates versus atelectasis. The patient does have a large amount of secretions coming from his ET tube. Discussed with the pulmonary team. Concern for pneumonia from their standpoint. MRSA screen completed 06/17/18 is negative. Initial sputum culture negative. Repeat Sputum culture 07/04/18 positive for A. baummannii. S. pneumo and Legionella UAT 06/20/18.--> negative. Repeat CXR 06/23/18 showed mild pulmonary vascular congestion and atelectasis and mild pleural effusion at the right lung base, increased. CT scan of the chest 06/23/18 negative for PNA. CXR 07/01/18 showed stable RLL disease and improved LLL disease. CXR 07/07/18 showed mild pulmonary vascular congestion and mild right pleural effusion. CXR 07/11/18 showed right basilar opacity and pulmonary edema. Vanc and Zosyn discontinued 06/25/18 after 9 days. Cefepime and Flagyl discontinued 07/11 after 5 days. Repeat CXR now 07/15/18 showed persistent RLL pneumonia. Continue Vancomycin and Zosyn as above. (day 7) Duration of treatment depends on the clinical picture, but likely a total of 10 days. Monitor renal function and for drug toxicity and dose-adjust antibiotics. Qualifiers: Pneumonia type: due to unspecified organism Laterality: bilateral Lung location: lower lobe of lung Qualified Code(s): J18.1 - Lobar pneumonia, unspecified organism (4) UTI (urinary tract infection) Current Visit: Yes Status: Acute Causative organism 06/18/18: C. albicans. Completed 14+ days of fluconazole. Repeat urine culture 07/01/18 grew E. coli, resistant to ampicillin and Unasyn. Likely secondary to jacobo catheter. Completed 7 day course of Cefepime. Qualifiers: Urinary tract infection type: site unspecified Hematuria presence: without hematuria Qualified Code(s): N39.0 - Urinary tract infection, site not specified (5) Encephalopathy Current Visit: Yes Status: Acute Etiology unclear, but likely related to sepsis. Per the patient's , the patient did have any complaints of neck pain, stiffness, or headache. Unable to assess mental status since the patient remains intubated and sedated. CT head negative for intracranial abnormality. 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 LP attempted by the pulm/CC team and IR was unsuccessful. Neurology consulted. Appreciate recommendations. Signed off. Acyclovir stopped by the pulmonary team, re-started 07/04/18. Completed 14 days of IV acyclovir. Patient awake and more calm this morning. Currently on CPAP and tolerating well so far, but was agitated this morning and pulled out inner cannula. (6) LUCILA (acute kidney injury) Current Visit: Yes Status: Acute Likely multifactorial: sepsis + hypotension + other. CRRT started 06/19/18 and stopped 06/26/18. Creatinine improved. Urine output remains adequate. Nephrology consulted and signed off. Continue to trend. Dose-adjust medications. (7) Lactic acidosis Current Visit: Yes Status: Resolved Likely secondary to sepsis. Resolved. (8) Thrombocytopenia Current Visit: Yes Status: Resolved Likely secondary to sepsis. LFTs abnormal on admission. Repeat LFTs normal. Resolved Continue to trend. No acute bleeding noted on exam. Further workup and management per the primary team. (9) Acute respiratory failure with hypoxemia Current Visit: Yes Status: Acute Likely secondary to PNA vs. pulmonary edema. Extubated 07/01/18. Re-intubated 07/04/18. Status post trach/PEG 07/11/18. Management per the pulmonary team. (10) Hypokalemia Current Visit: Yes Status: Resolved Replacement per the primary team. (11) Elevated troponin Current Visit: Yes Status: Acute Management per the primary team. (12) Type 2 diabetes mellitus Current Visit: Yes Status: Chronic Recommend aggressive glucose monitoring and control. Management per the primary team. Qualifiers: Diabetes mellitus correction insulin use: with correction use Diabetes mellitus complication status: with unspecified complications Qualified Code(s) : E11.8 - Type 2 diabetes mellitus with unspecified complications; Z79.4 - [facility] (current) use of insulin (13) COPD (chronic obstructive pulmonary disease) Current Visit: Yes Status: Chronic Qualifiers: COPD type: emphysema Emphysema type: unspecified Qualified Code(s): J43.9 - Emphysema, unspecified (14) Oral lesion Current Visit: Yes Status: Resolved Noted to the tongue. PCR positive for HSV 1. New lesion noted to the right nasolabial fold: HSV vs. other. Completed 14 days of acyclovir. Resolved. (15) Sinusitis Current Visit: Yes Status: Acute CT of the head 06/23/18 showed sinusitis of the bilateral sphenoid and ethmoid sinuses. Causative organism unclear. Treated with 9 days of Vanc and Zosyn. Repeat CT head 07/10/18 showed opacification of the left sphenoid sinus. Continue Vanc and Zosyn as above. Recommend ENT to evaluate. Qualifiers: Sinusitis location: unspecified location Chronicity: acute Recurrence: non-recurrent Qualified Code(s): J01.90 - Acute sinusitis, unspecified (16) Mastoiditis Current Visit: Yes Status: Suspected CT head showed opacitification of the left mastoid air cells concerning for mastoiditis. Recommend ENT to evaluate. Qualifiers: Laterality: left Qualified Code(s): H70.92 - Unspecified mastoiditis, left ear - Subjective Interval history: Patient seen and examined. No acute events noted overnight. Currently on CPAP. Follows some commands and states he has pain all over. Does not answer other ROS questions. Status post trach and PEG 07/11/18. Per nursing, tolerating tube feeds well and having minimal stool from rectal tube. Planning transfer to [facility] when medically ready. Infect Dis PN-Objective Data - Labs CBC & Chem 7: 07/17/18 03:58 07/17/18 03:58 Labs: Laboratory Results - last 24 hr 07/16/18 07/16/18 07/16/18 04:50 11:23 15:31 WBC RBC Hgb Hct MCV MCH MCHC RDW Plt Count MPV Immature Gran % Seg Neutrophils % Lymphocytes % Monocytes % Eosinophils % Basophils % Neutrophils # Lymphocytes # Monocytes # Eosinophils # Basophils # Sodium Potassium Chloride Carbon Dioxide BUN Creatinine Est GFR ( Amer) Est GFR (Non-Af Amer) BUN/Creatinine Ratio Glucose POC Glucose 108 H 123 H Calculated Osmolality Calcium Phosphorus Magnesium Blood Type A POSITIVE Antibody Screen NEGATIVE Crossmatch See Detail 07/16/18 07/16/18 07/16/18 19:59 20:00 20:37 WBC RBC Hgb 8.9 L D Hct 26.2 L MCV MCH MCHC RDW Plt Count MPV Immature Gran % Seg Neutrophils % Lymphocytes % Monocytes % Eosinophils % Basophils % Neutrophils # Lymphocytes # Monocytes # Eosinophils # Basophils # Sodium 142 Potassium 4.5 D Chloride 110 H Carbon Dioxide 28 BUN 19 Creatinine 1.15 Est GFR ( Amer) > 60 Est GFR (Non-Af Amer) > 60 BUN/Creatinine Ratio 17 Glucose 189 H POC Glucose 157 H Calculated Osmolality 301 H Calcium 9.0 Phosphorus Magnesium 2.0 Blood Type Antibody Screen Crossmatch 07/17/18 07/17/18 07/17/18 00:03 03:58 03:58 WBC 10.0 RBC 2.80 L Hgb 8.9 L Hct 27.2 L MCV 97.1 MCH 31.8 MCHC 32.7 RDW 15.9 H Plt Count 297 MPV 12.0 Immature Gran % 1.3 Seg Neutrophils % 68.0 Lymphocytes % 15.2 Monocytes % 8.1 Eosinophils % 6.7 Basophils % 0.7 Neutrophils # 6.8 Lymphocytes # 1.5 Monocytes # 0.8 Eosinophils # 0.7 H Basophils # 0.1 Sodium 142 Potassium 3.9 Chloride 107 Carbon Dioxide 29 BUN 20 Creatinine 1.12 Est GFR ( Amer) > 60 Est GFR (Non-Af Amer) > 60 BUN/Creatinine Ratio 18 Glucose 192 H POC Glucose 208 H Calculated Osmolality 302 H Calcium 8.8 Phosphorus 4.2 Magnesium 1.9 Blood Type Antibody Screen Crossmatch 07/17/18 07/17/18 04:13 07:31 WBC RBC Hgb Hct MCV MCH MCHC RDW Plt Count MPV Immature Gran % Seg Neutrophils % Lymphocytes % Monocytes % Eosinophils % Basophils % Neutrophils # Lymphocytes # Monocytes # Eosinophils # Basophils # Sodium Potassium Chloride Carbon Dioxide BUN Creatinine Est GFR ( Amer) Est GFR (Non-Af Amer) BUN/Creatinine Ratio Glucose POC Glucose 180 H 155 H Calculated Osmolality Calcium Phosphorus Magnesium Blood Type Antibody Screen Crossmatch Cultures: Cultures 07/11/18 05:20 Blood Culture - Final Central Venous Catheter No growth. Final report. 07/11/18 05:11 Blood Culture - Final Peripheral Venipuncture No growth. Final report. 07/04/18 11:59 Blood Culture - Final Peripheral Venipuncture No growth. Final report. 07/04/18 10:34 Blood Culture - Final Peripheral Venipuncture No growth. Final report. 07/04/18 07:38 Sputum Culture - Final Aspirate Acinetobacter baumannii complx 07/01/18 09:03 Urine Culture - Final Urine,Catheterized Escherichia coli 06/24/18 11:35 Blood Culture - Final Peripheral Venipuncture No growth. Final report. 06/24/18 11:35 Blood Culture - Final Peripheral Venipuncture No growth. Final report. 06/19/18 12:46 Blood Culture - Final Peripheral Venipuncture No growth. Final report. 06/19/18 12:46 Blood Culture - Final Peripheral Venipuncture No growth. Final report. 06/18/18 20:45 Sputum Culture - Final Sputum 06/20/18 11:30 Legionella Antigen - Final Urine,[place] Streptococcus pneumoniae Antigen (M - Final Serology 07/11/18 07/10/18 07/10/18 Range/Units 05:22 08:30 08:30 Urine Color Yellow (Yellow) Urine Clarity Hazy (Clear) Urine pH 5.5 (5.0-8.0) pH Units Ur Specific [place] 1.013 (1.010-1.025) Urine Protein 30 H (Neg-Trace) mg/dL Urine Glucose (UA) Normal (Normal) mg/dL Urine Ketones Negative (Negative) mg/dL Urine Blood Large H (Negative) Urine Nitrite Negative (Negative) Urine Bilirubin Negative (Negative) Urine Urobilinogen Normal (Normal) mg/dL Ur Leukocyte Esterase Small H (Negative) Urine Microscopic RBC 0-3 (0-3) per hpf Urine Microscopic WBC 5-15 H (0-3) per hpf Ur Eosinophil Smear (None Seen) % Ur Squamous Epith Cells Many H (None-Few) per lpf Urine Bacteria Few (None-Few) per hpf Hyaline Casts None Seen (None-Few) per lpf Ur Culture Indicated? NO. A (NO) Urine Osmolality 287 L (300-1090) mOsm/kg Urine Creatinine mg/dL Protein/Creatinin Ratio (0.00-0.20) mg/mg Urine Sodium 57.9 mEq/L Urine Potassium mEq/L Urine Chloride mEq/L Urine Total Protein (1-14) mg/dL Nasal Screen MRSA (PCR) (Negative) Chlamy pneumoniae PCR (Not Detect) Adenovirus (PCR) (Not Detect) B. pertussis DNA (PCR) (Not Detect) B.parapertussis DNA PCR (Not Detect) Coronavirus OC43 (PCR) (Not Detect) Coronavirus HKU1 (PCR) (Not Detect) Coronavirus 229E (PCR) (Not Detect) Coronavirus NL63 (PCR) (Not Detect) Hep Bs Antigen (Nonreactive) Hep Bs Antibody mIU/mL Herpes Simplex Source HSV I (Not Detect) HSV II (Not Detect) HIV Ag/Ab Combo Qual (Nonreactive) Human Metapneumovir PCR (Not Detect) Influenza A (H1) PCR (Not Detect) Influ A (H1N1/09) PCR (Not Detect) Influenza A (H3) PCR (Not Detect) Influenza A Untype (PCR) (Not Detect) Influenza Type B (PCR) (Not Detect) M.pneumoniae DNA (PCR) (Not Detect) Parainfluenza 1 (PCR) (Not Detect) Parainfluenza 2 (PCR) (Not Detect) Parainfluenza 3 (PCR) (Not Detect) Parainfluenza 4 (PCR) (Not Detect) RSV (PCR) (Not Detect) Entero/Rhino (PCR) (Not Detect) 07/09/18 07/09/18 07/05/18 Range/Units 10:00 10:00 17:50 Urine Color (Yellow) Urine Clarity (Clear) Urine pH (5.0-8.0) pH Units Ur Specific [place] (1.010-1.025) Urine Protein (Neg-Trace) mg/dL Urine Glucose (UA) (Normal) mg/dL Urine Ketones (Negative) mg/dL Urine Blood (Negative) Urine Nitrite (Negative) Urine Bilirubin (Negative) Urine Urobilinogen (Normal) mg/dL Ur Leukocyte Esterase (Negative) Urine Microscopic RBC (0-3) per hpf Urine Microscopic WBC (0-3) per hpf Ur Eosinophil Smear (None Seen) % Ur Squamous Epith Cells (None-Few) per lpf Urine Bacteria (None-Few) per hpf Hyaline Casts (None-Few) per lpf Ur Culture Indicated? (NO) Urine Osmolality 137 L (300-1090) mOsm/kg Urine Creatinine mg/dL Protein/Creatinin Ratio (0.00-0.20) mg/mg Urine Sodium 39.1 mEq/L Urine Potassium mEq/L Urine Chloride mEq/L Urine Total Protein (1-14) mg/dL Nasal Screen MRSA (PCR) Negative (Negative) Chlamy pneumoniae PCR (Not Detect) Adenovirus (PCR) (Not Detect) B. pertussis DNA (PCR) (Not Detect) B.parapertussis DNA PCR (Not Detect) Coronavirus OC43 (PCR) (Not Detect) Coronavirus HKU1 (PCR) (Not Detect) Coronavirus 229E (PCR) (Not Detect) Coronavirus NL63 (PCR) (Not Detect) Hep Bs Antigen (Nonreactive) Hep Bs Antibody mIU/mL Herpes Simplex Source HSV I (Not Detect) HSV II (Not Detect) HIV Ag/Ab Combo Qual (Nonreactive) Human Metapneumovir PCR (Not Detect) Influenza A (H1) PCR (Not Detect) Influ A (H1N1/09) PCR (Not Detect) Influenza A (H3) PCR (Not Detect) Influenza A Untype (PCR) (Not Detect) Influenza Type B (PCR) (Not Detect) M.pneumoniae DNA (PCR) (Not Detect) Parainfluenza 1 (PCR) (Not Detect) Parainfluenza 2 (PCR) (Not Detect) Parainfluenza 3 (PCR) (Not Detect) Parainfluenza 4 (PCR) (Not Detect) RSV (PCR) (Not Detect) Entero/Rhino (PCR) (Not Detect) 07/01/18 06/30/18 06/30/18 Range/Units 09:03 09:34 09:34 Urine Color Yellow (Yellow) Urine Clarity Clear (Clear) Urine pH 7.0 (5.0-8.0) pH Units Ur Specific [place] < 1.005 L (1.010-1.025) Urine Protein Trace (Neg-Trace) mg/dL Urine Glucose (UA) Normal (Normal) mg/dL Urine Ketones Negative (Negative) mg/dL Urine Blood Moderate H (Negative) Urine Nitrite Negative (Negative) Urine Bilirubin Negative (Negative) Urine Urobilinogen Normal (Normal) mg/dL Ur Leukocyte Esterase Moderate H (Negative) Urine Microscopic RBC 3-5 H (0-3) per hpf Urine Microscopic WBC 50-100 H (0-3) per hpf Ur Eosinophil Smear 0 (None Seen) % Ur Squamous Epith Cells None Seen (None-Few) per lpf Urine Bacteria Many H (None-Few) per hpf Hyaline Casts None Seen (None-Few) per lpf Ur Culture Indicated? (NO) Urine Osmolality (300-1090) mOsm/kg Urine Creatinine 31 mg/dL Protein/Creatinin Ratio 1.68 H (0.00-0.20) mg/mg Urine Sodium 40.6 mEq/L Urine Potassium mEq/L Urine Chloride mEq/L Urine Total Protein 52 H (1-14) mg/dL Nasal Screen MRSA (PCR) (Negative) Chlamy pneumoniae PCR (Not Detect) Adenovirus (PCR) (Not Detect) B. pertussis DNA (PCR) (Not Detect) B.parapertussis DNA PCR (Not Detect) Coronavirus OC43 (PCR) (Not Detect) Coronavirus HKU1 (PCR) (Not Detect) Coronavirus 229E (PCR) (Not Detect) Coronavirus NL63 (PCR) (Not Detect) Hep Bs Antigen (Nonreactive) Hep Bs Antibody mIU/mL Herpes Simplex Source HSV I (Not Detect) HSV II (Not Detect) HIV Ag/Ab Combo Qual (Nonreactive) Human Metapneumovir PCR (Not Detect) Influenza A (H1) PCR (Not Detect) Influ A (H1N1/09) PCR (Not Detect) Influenza A (H3) PCR (Not Detect) Influenza A Untype (PCR) (Not Detect) Influenza Type B (PCR) (Not Detect) M.pneumoniae DNA (PCR) (Not Detect) Parainfluenza 1 (PCR) (Not Detect) Parainfluenza 2 (PCR) (Not Detect) Parainfluenza 3 (PCR) (Not Detect) Parainfluenza 4 (PCR) (Not Detect) RSV (PCR) (Not Detect) Entero/Rhino (PCR) (Not Detect) 06/30/18 06/24/18 06/24/18 Range/Units 09:33 15:10 11:15 Urine Color Yellow (Yellow) Urine Clarity Hazy (Clear) Urine pH 6.0 (5.0-8.0) pH Units Ur Specific [place] 1.013 (1.010-1.025) Urine Protein 30 H (Neg-Trace) mg/dL Urine Glucose (UA) Normal (Normal) mg/dL Urine Ketones Negative (Negative) mg/dL Urine Blood Moderate H (Negative) Urine Nitrite Negative (Negative) Urine Bilirubin Small H (Negative) Urine Urobilinogen Normal (Normal) mg/dL Ur Leukocyte Esterase Moderate H (Negative) Urine Microscopic RBC 3-5 H (0-3) per hpf Urine Microscopic WBC 50-100 H (0-3) per hpf Ur Eosinophil Smear (None Seen) % Ur Squamous Epith Cells Many H (None-Few) per lpf Urine Bacteria None Seen (None-Few) per hpf Hyaline Casts None Seen (None-Few) per lpf Ur Culture Indicated? (NO) Urine Osmolality 200 L (300-1090) mOsm/kg Urine Creatinine mg/dL Protein/Creatinin Ratio (0.00-0.20) mg/mg Urine Sodium mEq/L Urine Potassium mEq/L Urine Chloride mEq/L Urine Total Protein (1-14) mg/dL Nasal Screen MRSA (PCR) (Negative) Chlamy pneumoniae PCR (Not Detect) Adenovirus (PCR) (Not Detect) B. pertussis DNA (PCR) (Not Detect) B.parapertussis DNA PCR (Not Detect) Coronavirus OC43 (PCR) (Not Detect) Coronavirus HKU1 (PCR) (Not Detect) Coronavirus 229E (PCR) (Not Detect) Coronavirus NL63 (PCR) (Not Detect) Hep Bs Antigen (Nonreactive) Hep Bs Antibody mIU/mL Herpes Simplex Source [place] HSV I DETECTED A (Not Detect) HSV II Not Detected (Not Detect) HIV Ag/Ab Combo Qual (Nonreactive) Human Metapneumovir PCR (Not Detect) Influenza A (H1) PCR (Not Detect) Influ A (H1N1/09) PCR (Not Detect) Influenza A (H3) PCR (Not Detect) Influenza A Untype (PCR) (Not Detect) Influenza Type B (PCR) (Not Detect) M.pneumoniae DNA (PCR) (Not Detect) Parainfluenza 1 (PCR) (Not Detect) Parainfluenza 2 (PCR) (Not Detect) Parainfluenza 3 (PCR) (Not Detect) Parainfluenza 4 (PCR) (Not Detect) RSV (PCR) (Not Detect) Entero/Rhino (PCR) (Not Detect) 06/23/18 06/23/18 06/20/18 Range/Units 20:00 08:10 11:30 Urine Color (Yellow) Urine Clarity (Clear) Urine pH (5.0-8.0) pH Units Ur Specific [place] (1.010-1.025) Urine Protein (Neg-Trace) mg/dL Urine Glucose (UA) (Normal) mg/dL Urine Ketones (Negative) mg/dL Urine Blood (Negative) Urine Nitrite (Negative) Urine Bilirubin (Negative) Urine Urobilinogen (Normal) mg/dL Ur Leukocyte Esterase (Negative) Urine Microscopic RBC (0-3) per hpf Urine Microscopic WBC (0-3) per hpf Ur Eosinophil Smear (None Seen) % Ur Squamous Epith Cells (None-Few) per lpf Urine Bacteria (None-Few) per hpf Hyaline Casts (None-Few) per lpf Ur Culture Indicated? (NO) Urine Osmolality (300-1090) mOsm/kg Urine Creatinine mg/dL Protein/Creatinin Ratio (0.00-0.20) mg/mg Urine Sodium mEq/L Urine Potassium mEq/L Urine Chloride mEq/L Urine Total Protein (1-14) mg/dL Nasal Screen MRSA (PCR) (Negative) Chlamy pneumoniae PCR Not Detected (Not Detect) Adenovirus (PCR) Not Detected (Not Detect) B. pertussis DNA (PCR) Not Detected (Not Detect) B.parapertussis DNA PCR Not Detected (Not Detect) Coronavirus OC43 (PCR) Not Detected (Not Detect) Coronavirus HKU1 (PCR) Not Detected (Not Detect) Coronavirus 229E (PCR) Not Detected (Not Detect) Coronavirus NL63 (PCR) Not Detected (Not Detect) Hep Bs Antigen Nonreactive (Nonreactive) Hep Bs Antibody 0.00 mIU/mL Herpes Simplex Source HSV I (Not Detect) HSV II (Not Detect) HIV Ag/Ab Combo Qual Nonreactive (Nonreactive) Human Metapneumovir PCR Not Detected (Not Detect) Influenza A (H1) PCR Not Detected (Not Detect) Influ A (H1N1/09) PCR Not Detected (Not Detect) Influenza A (H3) PCR Not Detected (Not Detect) Influenza A Untype (PCR) Not Detected (Not Detect) Influenza Type B (PCR) Not Detected (Not Detect) M.pneumoniae DNA (PCR) Not Detected (Not Detect) Parainfluenza 1 (PCR) Not Detected (Not Detect) Parainfluenza 2 (PCR) Not Detected (Not Detect) Parainfluenza 3 (PCR) Not Detected (Not Detect) Parainfluenza 4 (PCR) Not Detected (Not Detect) RSV (PCR) Not Detected (Not Detect) Entero/Rhino (PCR) Not Detected (Not Detect) 06/18/18 06/18/18 06/17/18 Range/Units 10:28 10:28 18:15 Urine Color (Yellow) Urine Clarity (Clear) Urine pH (5.0-8.0) pH Units Ur Specific [place] (1.010-1.025) Urine Protein (Neg-Trace) mg/dL Urine Glucose (UA) (Normal) mg/dL Urine Ketones (Negative) mg/dL Urine Blood (Negative) Urine Nitrite (Negative) Urine Bilirubin (Negative) Urine Urobilinogen (Normal) mg/dL Ur Leukocyte Esterase (Negative) Urine Microscopic RBC (0-3) per hpf Urine Microscopic WBC (0-3) per hpf Ur Eosinophil Smear (None Seen) % Ur Squamous Epith Cells (None-Few) per lpf Urine Bacteria (None-Few) per hpf Hyaline Casts (None-Few) per lpf Ur Culture Indicated? (NO) Urine Osmolality 343 (300-1090) mOsm/kg Urine Creatinine mg/dL Protein/Creatinin Ratio (0.00-0.20) mg/mg Urine Sodium 128.8 mEq/L Urine Potassium 36.5 7.5 mEq/L Urine Chloride 135 mEq/L Urine Total Protein (1-14) mg/dL Nasal Screen MRSA (PCR) (Negative) Chlamy pneumoniae PCR (Not Detect) Adenovirus (PCR) (Not Detect) B. pertussis DNA (PCR) (Not Detect) B.parapertussis DNA PCR (Not Detect) Coronavirus OC43 (PCR) (Not Detect) Coronavirus HKU1 (PCR) (Not Detect) Coronavirus 229E (PCR) (Not Detect) Coronavirus NL63 (PCR) (Not Detect) Hep Bs Antigen (Nonreactive) Hep Bs Antibody mIU/mL Herpes Simplex Source HSV I (Not Detect) HSV II (Not Detect) HIV Ag/Ab Combo Qual (Nonreactive) Human Metapneumovir PCR (Not Detect) Influenza A (H1) PCR (Not Detect) Influ A (H1N1/09) PCR (Not Detect) Influenza A (H3) PCR (Not Detect) Influenza A Untype (PCR) (Not Detect) Influenza Type B (PCR) (Not Detect) M.pneumoniae DNA (PCR) (Not Detect) Parainfluenza 1 (PCR) (Not Detect) Parainfluenza 2 (PCR) (Not Detect) Parainfluenza 3 (PCR) (Not Detect) Parainfluenza 4 (PCR) (Not Detect) RSV (PCR) (Not Detect) Entero/Rhino (PCR) (Not Detect) 06/17/18 06/17/18 Range/Units 11:56 11:30 Urine Color (Yellow) Urine Clarity (Clear) Urine pH (5.0-8.0) pH Units Ur Specific [place] (1.010-1.025) Urine Protein (Neg-Trace) mg/dL Urine Glucose (UA) (Normal) mg/dL Urine Ketones (Negative) mg/dL Urine Blood (Negative) Urine Nitrite (Negative) Urine Bilirubin (Negative) Urine Urobilinogen (Normal) mg/dL Ur Leukocyte Esterase (Negative) Urine Microscopic RBC (0-3) per hpf Urine Microscopic WBC (0-3) per hpf Ur Eosinophil Smear (None Seen) % Ur Squamous Epith Cells (None-Few) per lpf Urine Bacteria (None-Few) per hpf Hyaline Casts (None-Few) per lpf Ur Culture Indicated? (NO) Urine Osmolality (300-1090) mOsm/kg Urine Creatinine mg/dL Protein/Creatinin Ratio (0.00-0.20) mg/mg Urine Sodium mEq/L Urine Potassium mEq/L Urine Chloride mEq/L Urine Total Protein (1-14) mg/dL Nasal Screen MRSA (PCR) Negative (Negative) Chlamy pneumoniae PCR Not Detected (Not Detect) Adenovirus (PCR) Not Detected (Not Detect) B. pertussis DNA (PCR) Not Detected (Not Detect) B.parapertussis DNA PCR Not Detected (Not Detect) Coronavirus OC43 (PCR) Not Detected (Not Detect) Coronavirus HKU1 (PCR) Not Detected (Not Detect) Coronavirus 229E (PCR) Not Detected (Not Detect) Coronavirus NL63 (PCR) Not Detected (Not Detect) Hep Bs Antigen (Nonreactive) Hep Bs Antibody mIU/mL Herpes Simplex Source HSV I (Not Detect) HSV II (Not Detect) HIV Ag/Ab Combo Qual (Nonreactive) Human Metapneumovir PCR Not Detected (Not Detect) Influenza A (H1) PCR Not Detected (Not Detect) Influ A (H1N1/09) PCR Not Detected (Not Detect) Influenza A (H3) PCR Not Detected (Not Detect) Influenza A Untype (PCR) Not Detected (Not Detect) Influenza Type B (PCR) Not Detected (Not Detect) M.pneumoniae DNA (PCR) Not Detected (Not Detect) Parainfluenza 1 (PCR) Not Detected (Not Detect) Parainfluenza 2 (PCR) Not Detected (Not Detect) Parainfluenza 3 (PCR) Not Detected (Not Detect) Parainfluenza 4 (PCR) Not Detected (Not Detect) RSV (PCR) Not Detected (Not Detect) Entero/Rhino (PCR) Not Detected (Not Detect) Exam - Constitutional Vitals: Temp Pulse Resp BP Pulse Ox 98.8 F 71 18 119/70 98 07/17/18 04:44 07/17/18 08:00 07/17/18 08:00 07/17/18 08:00 07/17/18 08:00 General appearance: cooperative, no acute distress, obese - Head Head exam: Present: atraumatic, normal inspection, normocephalic - Eye Eye exam: Present: EOMI, normal appearance, PERRL Pupils: Present: normal accommodation - ENT ENT exam: Present: mucous membranes dry - Neck Neck exam: Present: normal inspection Additional comments: Tracheostomy midline with O2 via the vent. Currently in CPAP mode. - Respiratory Respiratory exam: Present: rhonchi (Scattered). Absent: rales, respiratory distress, wheezes - Cardiovascular Cardiovascular exam: Present: RRR, +S1, +S2 - GI/Abdominal GI/Abdominal exam: Present: distended (obese), normal bowel sounds, soft. Absent: tenderness Additional comments: Jacobo catheter noted to be draining clear yellow urine. Rectal tube noted with liquid brown stool in the collection bag. - Extremities Exam Extremities exam: Present: normal inspection. Absent: joint swelling, pedal edema, tenderness - Neurological Exam Neurological exam: Present: alert, oriented X3, no focal deficits - Psychiatric Psychiatric exam: Present: normal affect, normal mood - Skin Skin exam: Present: dry, intact, normal color, warm - VTE Documentation of Mechanical Device: Intermittent pneumatic compression device Consult Discharge Plan - Plan Referrals: Sheryl Stahl, [employer] [Primary Care Provider] - - Attending Attestation I examined this patient and my medical decision-making was reviewed with the Resident Physician. I agree with the documented findings, disposition and treatment plan as described except to the extent set forth below.
[2018-07-17] MEDS ORDERED: Desmopressin Acetate SPRAY 5 ML BOTTLE NS SCH (09:00)
--- NOTE | 2018-07-17 15:03 | Discharge Summary ---
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 Acyclovir stopped 07/09/18. Urine shows e.coli on urine culture from 07/01/18. Currently on Vanomycin and Zosyn for e.coli UTI and acinitobacter pneumonia, possible sinusitis noted on CT.- ID wants to continue this at this time (2) Acute respiratory failure with hypoxemia Priority: Secondary Status: Acute Comments: Pt had a tracheostomy placed on 07/11/18, stable on ventilator, will continue to monitor respiratory status (3) Pneumonia Priority: Secondary Status: Acute Comments: Patient on zosyn and vancomysin per ID Sputum culture positive for acinitobacter Qualifiers: Pneumonia type: due to unspecified organism Laterality: bilateral Lung location: lower lobe of lung Qualified Code(s): J18.1 - Lobar pneumonia, unspecified organism (4) Oral lesion Priority: Secondary Status: Resolved Comments: 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 Patient on intermittent dialysis. Hypernatremia being managed by 4mg dDAVP daily creatinine is improving free water 150 q4 through peg (7) Hypocalcemia Priority: Secondary Status: Resolved Comments: Continue to monitor. Calcium is stable today. Replace if necessary (8) Hypernatremia Priority: Secondary Status: Acute Comments: dDAVP switched to internasal, 1 puff one nostril BID Free water 150 Q4 PEG (9) Hypokalemia Priority: Secondary Status: Resolved Comments: Continue to monitor and replace as necessary (10) Encephalopathy Priority: Secondary Status: Acute Comments: Patient was more alert this morning able to follow simple commands, nodded head no when asked about pain. Acyclovir stopped on 07/09/18 (11) Thrombocytopenia Priority: Secondary Status: Resolved Comments: Platelets have been stable. Continue to monitor. 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 No heparin was in use in the lines which could have caused the excessive clotting on dialysis filter. Also, platelet count could have been decreased do to septic shock. Heparin was restarted, platelets continue to be stable (13) Type 2 diabetes mellitus Priority: Secondary Status: Chronic Comments: 25 units BID Levamir high dose sliding scale We will continue to monitor Qualifiers: Diabetes mellitus digital associate insulin use: with care home use Diabetes mellitus complication status: with unspecified complications Qualified Code(s) : E11.8 - Type 2 diabetes mellitus with unspecified complications; Z79.4 - care home (current) use of insulin (14) UTI (urinary tract infection) Priority: Secondary Status: Acute Comments: Urine culture from 07/01/18 grew gram negative brook Currently on vancomycin and zosyn Qualifiers: Urinary tract infection type: site unspecified Hematuria presence: without hematuria Qualified Code(s): N39.0 - Urinary tract infection, site not specified (15) DVT prophylaxis Priority: Secondary Status: Acute Comments: ECPDs Heparin 5000 units sub q - Discharge Medications Home Medications: Ipratropium/Albuterol Sulfate [Combivent Respimat Inhal [place]] 4 gm IH DAILY [History] Albuterol Sulfate [Proair Hfa] 2 puff IH Q4HR PRN 06/17/18 [History] Aspirin Enteric Coated [Aspirin EC] 81 mg PO DAILY 06/17/18 [History] Carvedilol [Carvedilol] 3.125 mg PO BID 06/17/18 [History] Citalopram [CeleXA] 20 mg PO DAILY 06/17/18 [History] Fluticasone Propionate Nasal [Flonase] 1 puff NS DAILY 06/17/18 [History] Fluticasone/Vilanterol [Breo Ellipta 200-25 Mcg INH] 1 each IH DAILY 06/17/18 [ History] Furosemide [Lasix] 40 mg PO BID 06/17/18 [History] Gabapentin [Neurontin] 800 mg PO QID 06/17/18 [History] Insulin Glargine,Hum.rec.anlog [Basaglar Kwikpen U-100] 40 unit SQ BID 06/17/18 [History] Losartan/Hydrochlorothiazide [Losartan-Hctz 100-25 mg Tab] 1 tab PO DAILY [History] Metoprolol [Lopressor] 25 mg PO BID 06/17/18 [History] Montelukast [Singulair] 10 mg PO HS 06/17/18 [History] OxyCODONE/APAP 10/325 [Percocet 10/325 MG] 1 tab PO TID 06/17/18 [History] Pantoprazole Sodium 40 mg PO DAILY 06/17/18 [History] Potassium Chloride [K-Tab ER] 20 meq PO DAILY 06/17/18 [History] Pravastatin Sodium [Pravachol] 40 mg PO DAILY 06/17/18 [History] Allergies/Adverse Reactions: 3 Allergy/AdvReac Type Severity Reaction Status Date / Time Sulfa (Sulfonamide Allergy Rash Verified 01/28/16 21:39 Antibiotics) Labs on day of discharge: Labs from last 24 hours 07/17/18 07/17/18 07/17/18 13:45 11:29 07:31 WBC RBC Hgb Hct MCV MCH MCHC RDW Plt Count MPV Immature Gran % Seg Neutrophils % Lymphocytes % Monocytes % Eosinophils % Basophils % Neutrophils # Lymphocytes # Monocytes # Eosinophils # Basophils # Sodium Potassium Chloride Carbon Dioxide BUN Creatinine Est GFR ( Amer) Est GFR (Non-Af Amer) BUN/Creatinine Ratio Glucose POC Glucose 127 H 155 H Calculated Osmolality Calcium Phosphorus Magnesium Vancomycin Trough 13 H 07/17/18 07/17/18 07/17/18 04:13 03:58 03:58 WBC 10.0 RBC 2.80 L Hgb 8.9 L Hct 27.2 L MCV 97.1 MCH 31.8 MCHC 32.7 RDW 15.9 H Plt Count 297 MPV 12.0 Immature Gran % 1.3 Seg Neutrophils % 68.0 Lymphocytes % 15.2 Monocytes % 8.1 Eosinophils % 6.7 Basophils % 0.7 Neutrophils # 6.8 Lymphocytes # 1.5 Monocytes # 0.8 Eosinophils # 0.7 H Basophils # 0.1 Sodium 142 Potassium 3.9 Chloride 107 Carbon Dioxide 29 BUN 20 Creatinine 1.12 Est GFR ( Amer) > 60 Est GFR (Non-Af Amer) > 60 BUN/Creatinine Ratio 18 Glucose 192 H POC Glucose 180 H Calculated Osmolality 302 H Calcium 8.8 Phosphorus 4.2 Magnesium 1.9 Vancomycin Trough 07/17/18 07/16/18 07/16/18 00:03 20:37 20:00 WBC RBC Hgb 8.9 L D Hct 26.2 L MCV MCH MCHC RDW Plt Count MPV Immature Gran % Seg Neutrophils % Lymphocytes % Monocytes % Eosinophils % Basophils % Neutrophils # Lymphocytes # Monocytes # Eosinophils # Basophils # Sodium 142 Potassium 4.5 D Chloride 110 H Carbon Dioxide 28 BUN 19 Creatinine 1.15 Est GFR ( Amer) > 60 Est GFR (Non-Af Amer) > 60 BUN/Creatinine Ratio 17 Glucose 189 H POC Glucose 208 H Calculated Osmolality 301 H Calcium 9.0 Phosphorus Magnesium 2.0 Vancomycin Trough 07/16/18 07/16/18 19:59 15:31 WBC RBC Hgb Hct MCV MCH MCHC RDW Plt Count MPV Immature Gran % Seg Neutrophils % Lymphocytes % Monocytes % Eosinophils % Basophils % Neutrophils # Lymphocytes # Monocytes # Eosinophils # Basophils # Sodium Potassium Chloride Carbon Dioxide BUN Creatinine Est GFR ( Amer) Est GFR (Non-Af Amer) BUN/Creatinine Ratio Glucose POC Glucose 157 H 123 H Calculated Osmolality Calcium Phosphorus Magnesium Vancomycin Trough - Impressions ITS Impressions Echocardiogram 06/17/18 10:03 Impressions: Technically sub-optimal due to clinical status. Sinus tachycardia. LV systolic function appears severely reduced. Not all LV wall segments were well visualized even with use of Definity. Mild left ventricular diastolic dysfunction. RV is not well evaluated. Mild tricuspid regurgitation. No pulmonary hypertension. Recommend repeat study when clinical status improves. Left Ventricular Wall Motion: Rest Echo Findings The apical septal, mid inferior septal, basal inferior septal, apical lateral, mid anterior lateral and basal anterior lateral ortiz were hypokinetic. The apex, apical inferior, mid inferior, basal inferior, apical anterior, mid anterior, basal anterior, mid anterior septal, mid inferior lateral, basal anterior septal and basal inferior lateral ortiz were not visualized. Findings: Study Quality * Technically sub-optimal due to clinical status. ECG Findings * Sinus tachycardia. Left Ventricle * LV systolic function appears severely reduced. * Mild left ventricular diastolic dysfunction. * There is no LV thrombus. * Definity echo contrast was used. Right Ventricle * RV is not well evaluated. Left Atrium * Normal left atrial size. Right Atrium * Normal right atrial size. Aortic Valve * No aortic regurgitation. * Aortic valve not well visualized. * No aortic stenosis - Doppler interrogation may be suboptimal. Mitral Valve * Mitral valve not well visualized. * No mitral regurgitation. * No mitral stenosis. Tricuspid Valve * Tricuspid valve not well visualized. * Mild tricuspid regurgitation. * Estimated RA pressure is 3 mmHg. Pulmonic Valve * Pulmonic valve is not well visualized. * No pulmonic stenosis. * No pulmonic regurgitation. Pulmonary Artery * Pulmonary artery not well visualized. Aorta * Normally sized aortic root. * Proximal ascending thoracic aorta not well visualized. Pericardium * There is no pericardial effusion present. Interatrial Septum * No evidence of PFO by color Doppler. IVC * Normal IVC dimensions and inspiratory collapse. KUB X-Ray 06/17/18 14:55 IMPRESSION: Enteric tube tip projecting over the proximal stomach. Side hole projects over the GE junction. D/ / Tashi Escobar MD / Tashi Escobar MD Interpreting Provider: Tashi Escobar MD Chest X-Ray 06/18/18 06:24 IMPRESSION: Stable cardiac size. Prominent vascularity slightly reduced over prior study with persistent bibasilar opacities with slight interval worsening. Multiple tubes and lines as above. D/ / Mattie Blank MD / Mattie Blank MD Interpreting Provider: Mattie Blank MD X-Ray 06/18/18 11:42 IMPRESSION: 1. No air-filled dilated loops of bowel. There is overall paucity of bowel gas within the abdomen. 2. Right femoral catheter tip projecting over the right common iliac vein versus IVC. D/ / 06/18/2018 12:28:59 [facility] Provider: Eri Kamara MD Abdomen/Pelvis CT 06/19/18 13:00 IMPRESSION: 1. Bilateral lower lobe infiltrates/atelectasis with small effusions. 2. Endotracheal and nasogastric tubes appear in stable position. 3. Diffuse fatty infiltration of the liver. Evidence of gallbladder sludge but no evidence of significant distention of the gallbladder or significant thickening. 4. Mild ascites in the abdomen and pelvis. 5. An element of anasarca. D/ / 06/19/2018 14:32:00 Hannah Shirley MD / [facility] Interpreting Provider: Hannah Shirley MD Chest CT 06/19/18 13:00 IMPRESSION: 1. Bilateral lower lobe infiltrates/atelectasis with small effusions. 2. Endotracheal and nasogastric tubes appear in stable position. 3. Diffuse fatty infiltration of the liver. Evidence of gallbladder sludge but no evidence of significant distention of the gallbladder or significant thickening. 4. Mild ascites in the abdomen and pelvis. 5. An element of anasarca. D/ / 06/19/2018 14:32:00 Hannah Shirley MD / [facility] Interpreting Provider: Hannah Shirley MD Head CT 06/19/18 13:00 IMPRESSION: No acute intracranial abnormality. D/ / Arsen Herron MD / Arsen Herron MD Interpreting Provider: Arsen Herron MD Guidance Ultrasound 06/20/18 00:00 IMPRESSION: Successful ultrasound guided non-tunneled dialysis catheter placement. D/ / Ajay Winters MD / Ajay Winters MD Interpreting Provider: Ajay Winters MD Insertion Non-Tunneled Catheter 06/20/18 00:00 IMPRESSION: Successful ultrasound guided non-tunneled dialysis catheter placement. D/ / Ajay Winters MD / Ajay Winters MD Interpreting Provider: Ajay Winters MD Chest X-Ray 06/20/18 12:50 IMPRESSION: 1. Endotracheal tube approximately 8.8 cm above the sanjeev but below the thoracic inlet. Advancing approximately 3 cm for more optimal positioning is suggested. 2. Increasing hazy density in the right mid to lower lung zones may reflect pleural fluid, atelectasis and/or developing pneumonia. Continued imaging follow-up is recommended. Findings appear to be superimposed on a background of mild pulmonary vascular congestion. D/ / Leon See / Leon See Interpreting Provider: Leon See Chest X-Ray 06/20/18 14:31 IMPRESSION: Right IJ dialysis catheter in place tip in the SVC. No pneumothorax seen. Persistent findings of pulmonary edema with small pleural effusions layering posteriorly. D/ / 06/20/2018 15:05:53 Xander Enamorado MD / [facility] Interpreting Provider: Xander Enamorado MD X-Ray 06/21/18 16:30 IMPRESSION: 1. Nonspecific bowel gas pattern. Body habitus limits evaluation. 2. Suspected small bilateral pleural effusions. 3. Side hole of the nasogastric tube appears to overlie the distal esophagus. D/ / Ajay Winters MD / Ajay Winters MD Interpreting Provider: Ajay Winters MD X-Ray 06/21/18 18:46 IMPRESSION: Enteric catheter in appropriate position with tip in the gastric antrum. D/ / Forest Jenkins MD / Forest Jenkins MD Interpreting Provider: Forest Jenkins MD Chest X-Ray 06/23/18 08:04 IMPRESSION: Mild pulmonary vascular congestion. Atelectasis and mild pleural effusion at the right lung base, increased. D/ / Arsen Herron MD / Arsen Herron MD Interpreting Provider: Arsen Herron MD Abdomen/Pelvis CT 06/23/18 18:30 IMPRESSION: 1. Circumferential thickening of the urinary bladder wall with perivesicular inflammation. Please correlate with clinical symptoms of cystitis. 2. Small bilateral pleural effusions with bibasilar pulmonary airspace opacities, favored to be atelectasis. 3. Hyperdense material in the gallbladder lumen, likely sludge. 4. Mildly enlarged anterior mediastinal lymph node and peripancreatic nodes. In isolation, finding is nonspecific and may be reactive. Consider follow-up in 3-6 months to ensure resolution/stability. 5. Subcutaneous edema. Please correlate with clinical symptoms of constipation. 6. ETT tip 4 cm above the sanjeev. 7. Enteric catheter tip in the body of the stomach with side hole is distal to the GE junction. D/ /23/2018 19:26:45 Jason Mendiola MD / [facility] Interpreting Provider: Jason Mendiola MD Chest CT 06/23/18 18:30 IMPRESSION: 1. Circumferential thickening of the urinary bladder wall with perivesicular inflammation. Please correlate with clinical symptoms of cystitis. 2. Small bilateral pleural effusions with bibasilar pulmonary airspace opacities, favored to be atelectasis. 3. Hyperdense material in the gallbladder lumen, likely sludge. 4. Mildly enlarged anterior mediastinal lymph node and peripancreatic nodes. In isolation, finding is nonspecific and may be reactive. Consider follow-up in 3-6 months to ensure resolution/stability. 5. Subcutaneous edema. Please correlate with clinical symptoms of constipation. 6. ETT tip 4 cm above the sanjeev. 7. Enteric catheter tip in the body of the stomach with side hole is distal to the GE junction. D/ / 06/23/2018 19:26:45 Jason Mendiola MD / [facility] Interpreting Provider: Jason Mendiola MD Head CT 06/23/18 18:30 IMPRESSION: No acute intracranial abnormality.Interval sinusitis as described. D/ / Shantanu Dominguez MD / Shantanu Dominguez MD Interpreting Provider: Shantanu Dominguez MD Chest X-Ray 06/24/18 04:00 IMPRESSION: Stable life support device positioning. No substantial change in effusions, basilar opacities and edema. D/ / Celio Simon / Celio Simon Interpreting Provider: Celio Simon Chest X-Ray 06/25/18 04:00 IMPRESSION: Stable life support device positioning. No substantial change in layering effusions, basilar opacities and probable pulmonary edema. D/ / Celio Simon / Celio Simon Interpreting Provider: Celio Simon Lumbar Puncture Fluoroscopy 06/26/18 09:46 IMPRESSION: Failed fluoroscopic guided lumbar puncture due to patient's pulmonary decompensation. The patient was brought back to the ICU. No CSF was obtained for laboratory evaluation. D/ / 06/27/2018 14:42:05 Matty Olguin MD / [facility] Interpreting Provider: Matty Olguin MD Brain MRI 06/26/18 13:31 IMPRESSION: Unremarkable MRI of the brain. No acute intracranial abnormality. If clinical suspicion for central nervous system infection persists, lumbar puncture and evaluation of cerebral spinal fluid is recommended. D/ / 06/26/2018 14:45:16 Nitin Kamara MD / [facility] Interpreting Provider: Nitin Kamara MD Chest X-Ray 06/27/18 04:00 IMPRESSION: Stable bilateral lung airspace disease and pleural effusions D/ / Vick Bucio MD / Vick Bucio MD Interpreting Provider: Vick Bucio MD X-Ray 06/27/18 10:26 IMPRESSION: No acute intra-abdominal or intrapelvic process is identified. Abdominal/pelvic CT could be performed for further evaluation if clinically warranted. D/ / Frank Vegas MD / Frank Vegas MD Interpreting Provider: Frank Vegas MD Chest X-Ray 06/27/18 15:12 IMPRESSION: 1. Endotracheal tube tip 5 cm above the sanjeev. 2. Stable appearance of pulmonary edema with possible trace effusions. 3. Focal basilar airspace opacities, right greater than left, which could represent atelectasis or pneumonia. D/ / 06/27/2018 15:48:25 [facility] Provider: Ajay Witners MD Chest X-Ray 06/30/18 04:00 IMPRESSION: Worsening edema versus infection. D/ / Arlen Guallpa MD / Arlen Guallpa MD Interpreting Provider: Arlen Guallpa MD Chest X-Ray 07/01/18 04:00 IMPRESSION: The lines and tubes are stable. Stable right lower lobe airspace disease and pleural effusion. Improving consolidation of the left lower lobe. D/ / 07/01/2018 07:56:31 Vick Bucio MD / [place] Interpreting Provider: Vick Bucio MD Chest X-Ray 07/02/18 07:53 IMPRESSION: 1. Interval extubation. No pneumothorax. 2. Stable pulmonary vascular congestion. 3. Slightly improved small right pleural effusion with overlying atelectasis/infiltrate. D/ / Leon Astorga MD / Leon Astorga MD Interpreting Provider: Leon Astorga MD Chest X-Ray 07/02/18 13:56 IMPRESSION: Placement of endotracheal tube with tip 2.5 cm from the sanjeev. Placement of enteric tube which is seen to extend into the stomach, distal extent not definitely included in the field of view. Persistent likely mild right basilar atelectasis along with layering right pleural effusion as well as some mild pulmonary vascular congestion but no overt pulmonary edema. D/ / 07/02/2018 14:23:01 Ian Moore MD / [place] Interpreting Provider: Ian Moore MD X-Ray 07/02/18 13:56 IMPRESSION: The distal end of the orogastric tube is either within the distal stomach or proximal duodenum. D/ / Leon Astorga MD / Leon Astorga MD Interpreting Provider: Leon Astorga MD Chest X-Ray 07/03/18 04:00 IMPRESSION: Increasing left basilar airspace disease, with similar appearing right basilar airspace disease. Mild interval improvement in aeration in the right upper lobe, with decreased central vascular congestion. Small pleural effusions cannot be excluded. D/ / Forest Raymond MD / Forest Raymond MD Interpreting Provider: Forest Raymond MD Chest X-Ray 07/04/18 04:00 IMPRESSION: No significant interval change in edema or bilateral pleural effusions. D/ / Eri Kamara MD / Eri Kamara MD Interpreting Provider: Eri Kamara MD X-Ray 07/04/18 12:40 IMPRESSION: OG tube in place with tip in the region of the pylorus D/ / Fawad Whiteside MD / Fawad Whiteside MD Interpreting Provider: Fawad Whiteside MD Chest X-Ray 07/05/18 04:00 IMPRESSION: No acute interval change. D/ / Celio Simon / Celio Simon Interpreting Provider: Celio Simon Abdomen/Pelvis CT 07/05/18 10:11 IMPRESSION: Severe bladder wall thickening and perivesicular stranding suspicious for cystitis. No significant change in bilateral effusions and associated airspace disease. Unchanged upper abdominal lymph nodes, possibly reactive. D/ / Tashi Escobar MD / Tashi Escobar MD Interpreting Provider: Tashi Escobar MD Chest CT 07/05/18 10:11 IMPRESSION: Small-moderate right pleural effusion. Small left pleural effusion. Bilateral lower lobe opacities have air bronchograms and may represent pneumonia. Prominent nonspecific mediastinal lymph nodes may be reactive. D/ / 07/05/2018 15:33:38 Leon Balbuena MD / [place] Interpreting Provider: Leon Balbuena MD Head CT 07/05/18 11:13 IMPRESSION: No acute intracranial abnormality. Stable partial opacification of the left-sided sphenoid sinus. Partial opacification of the mastoid air cells bilaterally noted as well. Clinical correlation for signs of infection is suggested D/ / Fawad Whiteside MD / Fawad Whiteside MD Interpreting Provider: Fawad Whiteside MD Chest X-Ray 07/07/18 04:00 IMPRESSION: Mild pulmonary vascular congestion, stable. Low lung volumes. Mild right pleural effusion. D/ / Arsen Herron MD / Arsen Herron MD Interpreting Provider: Arsen Herron MD Chest X-Ray 07/08/18 04:00 IMPRESSION: Stable life support device positioning, as above. Increased lung expansion with corresponding decrease in left basilar atelectasis. Persistent right effusion, basilar opacities and background edema. D/ / Celio Simon / Celio Simon Interpreting Provider: Celio Simon X-Ray 07/08/18 22:00 IMPRESSION: Enteric tube with tip in the distal esophagus. Advancement of the tube is recommended. D/ / Denise Mai Cha, MD / Denise Mai Cha, MD Interpreting Provider: Denise Mai Cha, MD X-Ray 07/08/18 22:58 IMPRESSION: Advancement of the gastric tube with the tip likely in the gastric antrum or pylorus and the sideport in the distal gastric body or antrum. D/ / Fawad Ortiz MD / Fawad Ortiz MD Interpreting Provider: Fawad Ortiz MD Head CT 07/10/18 11:00 IMPRESSION: No acute intracranial abnormality. Diffuse atrophic changes with findings suggesting chronic microvascular ischemia Partial opacification of the left side of the sphenoid sinus and the mastoid air cells, correlate for signs of infection D/ / Fawad Whiteside MD / Fawad Whiteside MD Interpreting Provider: Fawad Whiteside MD Chest X-Ray 07/11/18 04:00 IMPRESSION: No acute interval change. D/ / Celio Simon / Celio Simon Interpreting Provider: Celio Simon Chest X-Ray 07/11/18 17:25 IMPRESSION: Tracheostomy tube in place in satisfactory position. Otherwise, stable chest demonstrating persistent right lower lobe airspace disease D/ / Fawad Whiteside MD / Fawad Whiteside MD Interpreting Provider: Fawad Whiteside MD Chest X-Ray 07/14/18 13:41 IMPRESSION: Persistent right lower lobe pneumonia. Slight increased ground-glass throughout both lungs suggesting interstitial pulmonary edema. D/ / Thomas Maldonado MD / Thomas Maldonado MD Interpreting Provider: Thomas Maldonado MD Date of admission: 06/17/18 09:07 Primary care physician: Sheryl Stahl CNP Consults: 06/18/18 10:37 Consult to Nephrology [CONS] Routine Consulting Provider: Kidney [facility]/DOMO/RAO/VIVIAN Reason for Consult: hypokalemia Call Completed: Yes 06/19/18 08:50 Consult to Infectious Diseases [CONS] Routine Consulting Provider: Infectious Disease [facility] Reason for Consult: Fungemia, newly found in blood cultures. Presented with septic shock. Call Completed: Yes 06/20/18 11:32 Consult to Interventional Radiology [CONS] Routine Consulting Provider: Radiology Interventional Cols Reason for Consult: Temp HD cath Call Completed: Yes 06/21/18 09:56 dietary consult [Consult to Nutrition] [CONS] Routine Comment: Consulting Provider: NUTRITION Reason for Dietary Consult: Tube Feed Start & Manage 06/26/18 08:34 Consult to [employer] Collection System Operator [CONS] Routine Reason for SW Consult: Begin discharge planning with [facility] 06/27/18 08:00 Consult to Dialysis [CONS] ONCE 06/27/18 08:14 Consult to Neurology [CONS] Routine Consulting Provider: [facility] Reason for Consult: mental status, possible herpes encephalitis Time Notified: 08:00 Call Completed: Yes 06/27/18 13:37 Consult to Interpret Exam [CONS] Routine Consulting Provider: Yoselin Tobin I Consult to Interpret Exam: Interpret EEG 06/28/18 08:30 Consult to Dialysis [CONS] ONCE 07/01/18 08:00 Consult to Invasive Line Access Team [CONS] Routine Reason for Consult: insert power glide Line Type: EPIV 07/05/18 15:00 Consult to Dialysis [CONS] ONCE 07/12/18 09:34 Consult to Surgery [CONS] Routine Consulting Provider: Surgery [facility] - Kathy Reason for Consult: pt does not need evaluated at this time - consult for getting onto Saturday's schedule for placement of PEG tube Call Completed: Yes 07/14/18 07:42 Consult to Landfill Gas Collection System Operator [CONS] Stat Reason for SW Consult: LTAC placement deyanira Discharging clinician: Maximo Mcdaniel Anticipated date of discharge: 07/17/18 - Patient Status Disposition: Transfer LTC Condition: Good Functional capacity at discharge: bed bound Overall status at discharge: patient is progressing back to baseline - Discharge Instructions Follow Up With: Sheryl Stahl CNP [Primary Care Provider] - - Diet and Activity Diet: other (PEG placed, recieving tube feeds) - Hospital Course Hospital course: Mr. Mccatrhy is a 52 year old male who was originally transferred from [facility] to [facility] for septic shock with acute respiratory failure, intubated and sedated. Sesis was due to fumgemia from a UTI. 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 Patient was on a full course of fluconazole and acyclovir. On 07/01/18 was extubated but was reintubated less than 24 hours later. Patient is currently being treated for E. Coli UTI and acinitobacter Pneumonia, as well as possible sinusitis with Vancomycin and Zosyn. Diabetes insipidus was diagnosed after a trial of dDAVP decreased serum sodium from the low 150's to mid 140's. He was on 4 mcg of IV dDAVP and was switched today to nasal spray dDAVP 1 puff one nostril twice daily for a dose of 20mcg. Currently on Precidex and fentanyl. Seroquill was stopped today after approximately 3 days of use. Trach was placed on 07/11/18 and PEG placed on 07/12/18. Currently patient is awake and alert, answers questions with nodes and tries to speak, but has managed to take out the inner canula of his trach twice last night. Patient is aggravated by restraints and will try to still pull at trach with mittens on. - Time Spent with Patient Total time spent providing and/or coordinating discharge services: Physical Examination Vital Signs: Vital Signs, Last 4 Hours Pulse Resp BP Pulse Ox 07/17/18 13:00 61 68 118/73 97 07/17/18 12:00 65 16 109/66 98 07/17/18 11:19 16 98 General appearance: appears uncomfortable Eyes: nonicteric ENT: oropharynx moist Neck: no lymphadenopathy Effort: normal Auscultation: bilateral: diminished breath sounds (lower lobes) Cardiovascular: regular rate and rhythm Gastrointestinal: normoactive bowel sounds, soft, non-tender Extremities: no cyanosis, no clubbing, pink and warm, edema (1+ pitting at the feet) - VTE Documentation of Mechanical Device: Intermittent pneumatic compression device <Maximo Mcdaniel - Last Filed: 07/18/18 06:39> Date of Encounter: 07/18/18 - Discharge Diagnosis (1) Acute respiratory failure with hypoxia and hypercapnia Status: Acute (2) Septic shock Status: Acute (3) LUCILA (acute kidney injury) Status: Acute (4) Type 2 diabetes mellitus Status: Chronic Qualifiers: Diabetes mellitus care home insulin use: with digital associate use Diabetes mellitus complication status: with unspecified complications Qualified Code(s) : E11.8 - Type 2 diabetes mellitus with unspecified complications; Z79.4 - care home (current) use of insulin (5) Encephalopathy Status: Acute (6) Hypernatremia Status: Acute (7) Healthcare-associated pneumonia Status: Acute (8) Diabetes insipidus, neurohypophyseal Status: Suspected Labs on day of discharge: Labs from last 24 hours 07/17/18 07/17/18 07/17/18 19:37 16:06 13:45 POC Glucose 179 H 165 H Vancomycin Trough 13 H 07/17/18 07/17/18 11:29 07:31 POC Glucose 127 H 155 H Vancomycin Trough - Impressions ITS Impressions Echocardiogram 06/17/18 10:03 Impressions: Technically sub-optimal due to clinical status. Sinus tachycardia. LV systolic function appears severely reduced. Not all LV wall segments were well visualized even with use of Definity. Mild left ventricular diastolic dysfunction. RV is not well evaluated. Mild tricuspid regurgitation. No pulmonary hypertension. Recommend repeat study when clinical status improves. Left Ventricular Wall Motion: Rest Echo Findings The apical septal, mid inferior septal, basal inferior septal, apical lateral, mid anterior lateral and basal anterior lateral ortiz were hypokinetic. The apex, apical inferior, mid inferior, basal inferior, apical anterior, mid anterior, basal anterior, mid anterior septal, mid inferior lateral, basal anterior septal and basal inferior lateral ortiz were not visualized. Findings: Study Quality * Technically sub-optimal due to clinical status. ECG Findings * Sinus tachycardia. Left Ventricle * LV systolic function appears severely reduced. * Mild left ventricular diastolic dysfunction. * There is no LV thrombus. * Definity echo contrast was used. Right Ventricle * RV is not well evaluated. Left Atrium * Normal left atrial size. Right Atrium * Normal right atrial size. Aortic Valve * No aortic regurgitation. * Aortic valve not well visualized. * No aortic stenosis - Doppler interrogation may be suboptimal. Mitral Valve * Mitral valve not well visualized. * No mitral regurgitation. * No mitral stenosis. Tricuspid Valve * Tricuspid valve not well visualized. * Mild tricuspid regurgitation. * Estimated RA pressure is 3 mmHg. Pulmonic Valve * Pulmonic valve is not well visualized. * No pulmonic stenosis. * No pulmonic regurgitation. Pulmonary Artery * Pulmonary artery not well visualized. Aorta * Normally sized aortic root. * Proximal ascending thoracic aorta not well visualized. Pericardium * There is no pericardial effusion present. Interatrial Septum * No evidence of PFO by color Doppler. IVC * Normal IVC dimensions and inspiratory collapse. KUB X-Ray 06/17/18 14:55 IMPRESSION: Enteric tube tip projecting over the proximal stomach. Side hole projects over the GE junction. D/ / Tashi Escobar MD / Tashi Escobar MD Interpreting Provider: Tashi Escobar MD Chest X-Ray 06/18/18 06:24 IMPRESSION: Stable cardiac size. Prominent vascularity slightly reduced over prior study with persistent bibasilar opacities with slight interval worsening. Multiple tubes and lines as above. D/ / Mattie Blank MD / Mattie Blank MD Interpreting Provider: Mattie Blank MD X-Ray 06/18/18 11:42 IMPRESSION: 1. No air-filled dilated loops of bowel. There is overall paucity of bowel gas within the abdomen. 2. Right femoral catheter tip projecting over the right common iliac vein versus IVC. D/ / 06/18/2018 12:28:59 Eri Kamara MD / [facility] Interpreting Provider: Eri Kamara MD Abdomen/Pelvis CT 06/19/18 13:00 IMPRESSION: 1. Bilateral lower lobe infiltrates/atelectasis with small effusions. 2. Endotracheal and nasogastric tubes appear in stable position. 3. Diffuse fatty infiltration of the liver. Evidence of gallbladder sludge but no evidence of significant distention of the gallbladder or significant thickening. 4. Mild ascites in the abdomen and pelvis. 5. An element of anasarca. D/ / 06/19/2018 14:32:00 Hannah Shirley MD / [facility] Interpreting Provider: Hannah Shirley MD Chest CT 06/19/18 13:00 IMPRESSION: 1. Bilateral lower lobe infiltrates/atelectasis with small effusions. 2. Endotracheal and nasogastric tubes appear in stable position. 3. Diffuse fatty infiltration of the liver. Evidence of gallbladder sludge but no evidence of significant distention of the gallbladder or significant thickening. 4. Mild ascites in the abdomen and pelvis. 5. An element of anasarca. D/ / 06/19/2018 14:32:00 Hannah Shirley MD / [facility] Interpreting Provider: Hannah Shirley MD Head CT 06/19/18 13:00 IMPRESSION: No acute intracranial abnormality. D/ / Arsen Herron MD / Arsen Herron MD Interpreting Provider: Arsen Herron MD Guidance Ultrasound 06/20/18 00:00 IMPRESSION: Successful ultrasound guided non-tunneled dialysis catheter placement. D/ / Ajay Winters MD / Ajay Wintesr MD Interpreting Provider: Ajay Winters MD Insertion Non-Tunneled Catheter 06/20/18 00:00 IMPRESSION: Successful ultrasound guided non-tunneled dialysis catheter placement. D/ / Ajay Winters MD / Ajay Winters MD Interpreting Provider: Ajay Winters MD Chest X-Ray 06/20/18 12:50 IMPRESSION: 1. Endotracheal tube approximately 8.8 cm above the sanjeev but below the thoracic inlet. Advancing approximately 3 cm for more optimal positioning is suggested. 2. Increasing hazy density in the right mid to lower lung zones may reflect pleural fluid, atelectasis and/or developing pneumonia. Continued imaging follow-up is recommended. Findings appear to be superimposed on a background of mild pulmonary vascular congestion. D/ / Leon See / Leon See Interpreting Provider: Leon See Chest X-Ray 06/20/18 14:31 IMPRESSION: Right IJ dialysis catheter in place tip in the SVC. No pneumothorax seen. Persistent findings of pulmonary edema with small pleural effusions layering posteriorly. D/ / 06/20/2018 15:05:53 Xander Enamorado MD / [facility] Interpreting Provider: Xander Enamorado MD X-Ray 06/21/18 16:30 IMPRESSION: 1. Nonspecific bowel gas pattern. Body habitus limits evaluation. 2. Suspected small bilateral pleural effusions. 3. Side hole of the nasogastric tube appears to overlie the distal esophagus. D/ / Ajay Winters MD / Ajay Winters MD Interpreting Provider: Ajay Winters MD X-Ray 06/21/18 18:46 IMPRESSION: Enteric catheter in appropriate position with tip in the gastric antrum. D/ / Forest Jenkins MD / Forest Jenkins MD Interpreting Provider: Forest Jenkins MD Chest X-Ray 06/23/18 08:04 IMPRESSION: Mild pulmonary vascular congestion. Atelectasis and mild pleural effusion at the right lung base, increased. D/ / Arsen Herron MD / Arsen Herron MD Interpreting Provider: Arsen Herron MD Abdomen/Pelvis CT 06/23/18 18:30 IMPRESSION: 1. Circumferential thickening of the urinary bladder wall with perivesicular inflammation. Please correlate with clinical symptoms of cystitis. 2. Small bilateral pleural effusions with bibasilar pulmonary airspace opacities, favored to be atelectasis. 3. Hyperdense material in the gallbladder lumen, likely sludge. 4. Mildly enlarged anterior mediastinal lymph node and peripancreatic nodes. In isolation, finding is nonspecific and may be reactive. Consider follow-up in 3-6 months to ensure resolution/stability. 5. Subcutaneous edema. Please correlate with clinical symptoms of constipation. 6. ETT tip 4 cm above the sanjeev. 7. Enteric catheter tip in the body of the stomach with side hole is distal to the GE junction. D/ : / 06/23/2018 19:26:45 Jason Mendiola MD / [facility] Interpreting Provider: Jason Mendiola MD Chest CT 06/23/18 18:30 IMPRESSION: 1. Circumferential thickening of the urinary bladder wall with perivesicular inflammation. Please correlate with clinical symptoms of cystitis. 2. Small bilateral pleural effusions with bibasilar pulmonary airspace opacities, favored to be atelectasis. 3. Hyperdense material in the gallbladder lumen, likely sludge. 4. Mildly enlarged anterior mediastinal lymph node and peripancreatic nodes. In isolation, finding is nonspecific and may be reactive. Consider follow-up in 3-6 months to ensure resolution/stability. 5. Subcutaneous edema. Please correlate with clinical symptoms of constipation. 6. ETT tip 4 cm above the sanjeev. 7. Enteric catheter tip in the body of the stomach with side hole is distal to the GE junction. D/ /23/2018 19:26:45 Jason Mendiola MD / [facility] Interpreting Provider: Jason Mendiola MD Head CT 06/23/18 18:30 IMPRESSION: No acute intracranial abnormality.Interval sinusitis as described. D/ / Shantanu Dominguez MD / Shantanu Dominguez MD Interpreting Provider: Shantanu Dominguez MD Chest X-Ray 06/24/18 04:00 IMPRESSION: Stable life support device positioning. No substantial change in effusions, basilar opacities and edema. D/ / Celio Simon / Celio Simon Interpreting Provider: Celio Simon Chest X-Ray 06/25/18 04:00 IMPRESSION: Stable life support device positioning. No substantial change in layering effusions, basilar opacities and probable pulmonary edema. D/ / Celio Simon / Celio Simon Interpreting Provider: Celio Simon Lumbar Puncture Fluoroscopy 06/26/18 09:46 IMPRESSION: Failed fluoroscopic guided lumbar puncture due to patient's pulmonary decompensation. The patient was brought back to the ICU. No CSF was obtained for laboratory evaluation. D/ / 06/27/2018 14:42:05 Matty Olguin MD / [facility] Interpreting Provider: Matty Olguin MD Brain MRI 06/26/18 13:31 IMPRESSION: Unremarkable MRI of the brain. No acute intracranial abnormality. If clinical suspicion for central nervous system infection persists, lumbar puncture and evaluation of cerebral spinal fluid is recommended. D/ / 06/26/2018 14:45:16 Nitin Kamara MD / [facility] Interpreting Provider: Nitin Kamara MD Chest X-Ray 06/27/18 04:00 IMPRESSION: Stable bilateral lung airspace disease and pleural effusions D/ / Vick Bucio MD / Vick Bucio MD Interpreting Provider: Vick Bucio MD X-Ray 06/27/18 10:26 IMPRESSION: No acute intra-abdominal or intrapelvic process is identified. Abdominal/pelvic CT could be performed for further evaluation if clinically warranted. D/ / Frank Vegas MD / Frank Vegas MD Interpreting Provider: Frank Vegas MD Chest X-Ray 06/27/18 15:12 IMPRESSION: 1. Endotracheal tube tip 5 cm above the sanjeev. 2. Stable appearance of pulmonary edema with possible trace effusions. 3. Focal basilar airspace opacities, right greater than left, which could represent atelectasis or pneumonia. D/ / 06/27/2018 15:48:25 Ajay Winters MD / [facility] Interpreting Provider: Ajay Winters MD Chest X-Ray 06/30/18 04:00 IMPRESSION: Worsening edema versus infection. D/ / Arlen Guallpa MD / Arlen Guallpa MD Interpreting Provider: Arlen Guallpa MD Chest X-Ray 07/01/18 04:00 IMPRESSION: The lines and tubes are stable. Stable right lower lobe airspace disease and pleural effusion. Improving consolidation of the left lower lobe. D/ / 07/01/2018 07:56:31 Vick Bucio MD / [place] Interpreting Provider: Vick Bucio MD Chest X-Ray 07/02/18 07:53 IMPRESSION: 1. Interval extubation. No pneumothorax. 2. Stable pulmonary vascular congestion. 3. Slightly improved small right pleural effusion with overlying atelectasis/infiltrate. D/ / Leon Astorga MD / Leon Astorga MD Interpreting Provider: Leon Astorga MD Chest X-Ray 07/02/18 13:56 IMPRESSION: Placement of endotracheal tube with tip 2.5 cm from the sanjeev. Placement of enteric tube which is seen to extend into the stomach, distal extent not definitely included in the field of view. Persistent likely mild right basilar atelectasis along with layering right pleural effusion as well as some mild pulmonary vascular congestion but no overt pulmonary edema. D/ / 07/02/2018 14:23:01 Ian Moore MD / [place] Interpreting Provider: Ian Moore MD X-Ray 07/02/18 13:56 IMPRESSION: The distal end of the orogastric tube is either within the distal stomach or proximal duodenum. D/ / Leon Astorga MD / Leon Astorga MD Interpreting Provider: Leon Astorga MD Chest X-Ray 07/03/18 04:00 IMPRESSION: Increasing left basilar airspace disease, with similar appearing right basilar airspace disease. Mild interval improvement in aeration in the right upper lobe, with decreased central vascular congestion. Small pleural effusions cannot be excluded. D/ / Forest Raymond MD / Forest Raymond MD Interpreting Provider: Forest Raymond MD Chest X-Ray 07/04/18 04:00 IMPRESSION: No significant interval change in edema or bilateral pleural effusions. D/ / Eri Kamara MD / Eri Kamara MD Interpreting Provider: Eri Kamara MD X-Ray 07/04/18 12:40 IMPRESSION: OG tube in place with tip in the region of the pylorus D/ / Fawad Whiteside MD / Fawad Whiteside MD Interpreting Provider: Fawad Whiteside MD Chest X-Ray 07/05/18 04:00 IMPRESSION: No acute interval change. D/ / Celio Simon / Celio Simon Interpreting Provider: Celio Simon Abdomen/Pelvis CT 07/05/18 10:11 IMPRESSION: Severe bladder wall thickening and perivesicular stranding suspicious for cystitis. No significant change in bilateral effusions and associated airspace disease. Unchanged upper abdominal lymph nodes, possibly reactive. D/ / Tashi Escobar MD / Tashi Escobar MD Interpreting Provider: Tashi Escobar MD Chest CT 07/05/18 10:11 IMPRESSION: Small-moderate right pleural effusion. Small left pleural effusion. Bilateral lower lobe opacities have air bronchograms and may represent pneumonia. Prominent nonspecific mediastinal lymph nodes may be reactive. D/ / 07/05/2018 15:33:38 Leon Balbuena MD / [place] Interpreting Provider: Leon Balbuena MD Head CT 07/05/18 11:13 IMPRESSION: No acute intracranial abnormality. Stable partial opacification of the left-sided sphenoid sinus. Partial opacification of the mastoid air cells bilaterally noted as well. Clinical correlation for signs of infection is suggested D/ / Fawad Whiteside MD / Fawad Whiteside MD Interpreting Provider: Fawad Whiteside MD Chest X-Ray 07/07/18 04:00 IMPRESSION: Mild pulmonary vascular congestion, stable. Low lung volumes. Mild right pleural effusion. D/ / Arsen Herron MD / Arsen Herron MD Interpreting Provider: Arsen Herron MD Chest X-Ray 07/08/18 04:00 IMPRESSION: Stable life support device positioning, as above. Increased lung expansion with corresponding decrease in left basilar atelectasis. Persistent right effusion, basilar opacities and background edema. D/ / Celio Simon / Celio Simon Interpreting Provider: Celio Simon X-Ray 07/08/18 22:00 IMPRESSION: Enteric tube with tip in the distal esophagus. Advancement of the tube is recommended. D/ / Denise Mai Cha, MD / Denise Mai Cha, MD Interpreting Provider: Denise Mai Cha, MD X-Ray 07/08/18 22:58 IMPRESSION: Advancement of the gastric tube with the tip likely in the gastric antrum or pylorus and the sideport in the distal gastric body or antrum. D/ / Fawad Ortiz MD / Fawad Ortiz MD Interpreting Provider: Fawad Ortiz MD Head CT 07/10/18 11:00 IMPRESSION: No acute intracranial abnormality. Diffuse atrophic changes with findings suggesting chronic microvascular ischemia Partial opacification of the left side of the sphenoid sinus and the mastoid air cells, correlate for signs of infection D/ / Fawad Whiteside MD / Fawad Whiteside MD Interpreting Provider: Fawad Whiteside MD Chest X-Ray 07/11/18 04:00 IMPRESSION: No acute interval change. D/ / Celio Simon / Celio Simon Interpreting Provider: Celio Simon Chest X-Ray 07/11/18 17:25 IMPRESSION: Tracheostomy tube in place in satisfactory position. Otherwise, stable chest demonstrating persistent right lower lobe airspace disease D/ / Fawad Whiteside MD / Fawad Whiteside MD Interpreting Provider: Fawad Whiteside MD Chest X-Ray 07/14/18 13:41 IMPRESSION: Persistent right lower lobe pneumonia. Slight increased ground-glass throughout both lungs suggesting interstitial pulmonary edema. D/ / Thomas Maldonado MD / Thomas Maldonado MD Interpreting Provider: Thomas Maldonado MD Date of admission: 06/17/18 09:07 Primary care physician: Sheryl Stahl CNP Consults: 06/18/18 10:37 Consult to Nephrology [CONS] Routine Consulting Provider: Kidney Chilo/DOMO/RAO/VIVIAN Reason for Consult: hypokalemia Call Completed: Yes 06/19/18 08:50 Consult to Infectious Diseases [CONS] Routine Consulting Provider: Infectious Disease [facility] Reason for Consult: Fungemia, newly found in blood cultures. Presented with septic shock. Call Completed: Yes 06/20/18 11:32 Consult to Interventional Radiology [CONS] Routine Consulting Provider: Radiology Interventional Cols Reason for Consult: Temp HD cath Call Completed: Yes 06/21/18 09:56 dietary consult [Consult to Nutrition] [CONS] Routine Comment: Consulting Provider: NUTRITION Reason for Dietary Consult: Tube Feed Start & Manage 06/26/18 08:34 Consult to Landfill Gas Collection System Operator [CONS] Routine Reason for SW Consult: Begin discharge planning with [facility] 06/27/18 08:00 Consult to Dialysis [CONS] ONCE 06/27/18 08:14 Consult to Neurology [CONS] Routine Consulting Provider: Neurology [facility] Reason for Consult: mental status, possible herpes encephalitis Time Notified: 08:00 Call Completed: Yes 06/27/18 13:37 Consult to Interpret Exam [CONS] Routine Consulting Provider: Yoselin Tobin I Consult to Interpret Exam: Interpret EEG 06/28/18 08:30 Consult to Dialysis [CONS] ONCE 07/01/18 08:00 Consult to Invasive Line Access Team [CONS] Routine Reason for Consult: insert power glide Line Type: EPIV 07/05/18 15:00 Consult to Dialysis [CONS] ONCE 07/12/18 09:34 Consult to Surgery [CONS] Routine Consulting Provider: Surgery [facility] Reason for Consult: pt does not need evaluated at this time - consult for getting onto Saturday' schedule for placement of PEG tube Call Completed: Yes 07/14/18 07:42 Consult to Landfill Gas Collection System Operator [CONS] Stat Reason for SW Consult: LTAC placement deyanira - Hospital Course Hospital course: Mr. Mccarthy is a 52 year old male - Time Spent with Patient Total time spent providing and/or coordinating discharge services: - Attending Attestation I examined this patient and my medical decision-making was reviewed with the Resident Physician. I agree with the documented findings, disposition and treatment plan as described except to the extent set forth below. We independently had [id number] contact with the patient 52-year-old gentleman presenting with septic shock secondary to fungemia complicated by multiorgan system failure - slow gradual improvement. S/p Trach/ PEG now acceptable status for transfer to LTACH for ongoing convalescence / rehabilitation
[2018-07-17] MEDS: Scopolamine Patch 1.5 MG PATCH.TD72 TD SCH (17:55)
[2018-07-17 20:22] VITALS: BP 124/71
[2018-07-17] MEDS ORDERED: Aminoglycoside Consult 1 EACH MC ONE (20:29)
== END 2018-07-17 20:30 | DRG 5 ==
LOC: ICNU 09:07
PROVIDERS: ADMIT Internal Medicine Pulmonary Disease; ATTEND Internal Medicine Pulmonary Disease

== ENCOUNTER 2019-02-24 10:21 | Observation (INO) ==
[2019-02-24] MEDS ORDERED: *HR* OxyCODONE/APAP 5/325 TABLET PO ONE (10:41)
--- NOTE | 2019-02-24 11:05 | Emergency Department Note ---
Disposition Clinical Impression: Hemoptysis Disposition: Admitted As Inpatient Condition: Good Forms: ED Satisfaction Letter Time of Disposition: 12:21 General Adult HPI - General Chief complaint: ED GI Bleed Stated complaint: Coughing up blood Time Seen by Provider: 02/24/19 10:30 Source: patient - History of Present Illness HPI Narrative: Patient is a 53-year-old gentleman who presents to the emergency department with a chief complaint of hemoptysis. Patient has a trach that he has had since June and is currently on anticoagulants. The patient went to his assistant case manager today after he has been having episodes of coughing up blood from his trach. Patient was seen in the office and referred to the emergency department for medical screening and admission. The patient currently denies shortness of breath denies chest pain denies active bleeding at this time. Pain Scale: 7 - Related Data Home Medications Medication Instructions Recorded Confirmed Ipratropium/Albuterol Sulfate 4 gm IH DAILY 11/23/15 06/17/18 [Combivent Respimat Inhal [place]] Albuterol Sulfate [Proair Hfa] 2 puff IH Q4HR PRN 06/17/18 06/17/18 Aspirin Enteric Coated [Aspirin EC] 81 mg PO DAILY 06/17/18 06/17/18 Carvedilol 3.125 mg PO BID 06/17/18 06/17/18 Citalopram [CeleXA] 20 mg PO DAILY 06/17/18 06/17/18 Fluticasone Propionate Nasal 1 puff NS DAILY 06/17/18 06/17/18 [Flonase] Fluticasone/Vilanterol [Breo 1 each IH DAILY 06/17/18 06/17/18 Ellipta 200-25 Mcg INH] Furosemide [Lasix] 40 mg PO BID 06/17/18 06/17/18 Gabapentin [Neurontin] 800 mg PO QID 06/17/18 06/17/18 Insulin Glargine,Hum.rec.anlog 40 unit SQ BID 06/17/18 06/17/18 [Basaglar Kwikpen U-100] Losartan/Hydrochlorothiazide 1 tab PO DAILY 06/17/18 06/17/18 [Losartan-Hctz 100-25 mg Tab] Metoprolol [Lopressor] 25 mg PO BID 06/17/18 06/17/18 Montelukast [Singulair] 10 mg PO HS 06/17/18 06/17/18 OxyCODONE/APAP 10/325 [Percocet 1 tab PO TID 06/17/18 06/17/18 10/325 MG] Pantoprazole Sodium 40 mg PO DAILY 06/17/18 06/17/18 Potassium Chloride [K-Tab ER] 20 meq PO DAILY 06/17/18 06/17/18 Pravastatin Sodium [Pravachol] 40 mg PO DAILY 06/17/18 06/17/18 Previous Rx's Medication Instructions Recorded Bumetanide [Bumex] 1 mg PO DAILY #7 tablet 10/20/18 Nicotine Patch [Nicoderm] 21 mg TD DAILY #7 patch.td24 10/20/18 Potassium Chloride [K-Tab ER] 20 meq PO BID #14 tablet.er 10/20/18 Allergies Allergy/AdvReac Type Severity Reaction Status Date / Time ibuprofen [From Motrin] Allergy See Verified 11/29/18 16:48 Comments Sulfa (Sulfonamide Allergy Rash Verified 01/28/16 21:39 Antibiotics) All systems ED: reviewed and negative except as stated. Past Medical History - Past Medical History Attestation: Yes The following information was validated with the patient. Medical history: Reports: asthma, COPD, diabetes, GERD, hypertension, other Psychiatric history: Reports: anxiety, depression - Social History Smoking Status: Former smoker Smokeless Tobacco Status: No Alcohol use: Reports: none Drug use: Reports: none Physical Exam General: Conversant and pleasant interactive and nontoxic. Head: Normocephalic/atraumatic Eyes:PERRLA, EOMI, no conjunctivitis Nares: Without d/c. Ears: No erythema or d/c noted. Oralpharnyx: P&MMM noted, Neck: Supple, no JVD or [place] noted. There is tracheostomy site in place with no active bleeding at this time no obstruction Cardovascular: regular rate and rhythm without murmur, brisk capillary refill, no peripheral edema. Lungs: Clear to ascultation bilaterally, non-labored Abd: Soft nontender, Non Distended, no guarding, no rebound. : Defered Extremities: moves all extremities equally Neuro: AOx3, no obvious gross neuro deficit Psych: Normal Affect Derm: No rash noted - General General appearance: alert Course Vital Signs Temperature 98.5 F 02/24/19 10:37 Pulse Rate 76 02/24/19 10:37 Respiratory Rate 22 02/24/19 10:37 Blood Pressure 122/80 02/24/19 10:37 O2 Sat by Pulse Oximetry 96 02/24/19 10:37 Temperature 98.5 F 02/24/19 10:37 Pulse Rate 72 02/24/19 11:55 Respiratory Rate 17 02/24/19 11:55 Blood Pressure 109/65 02/24/19 11:55 O2 Sat by Pulse Oximetry 96 02/24/19 11:55 Oxygen Delivery Oxygen Delivery Trach Mask Medical Decision Making - MDM Narrative Medical decision making narrative: Chest x-ray shows no evidence of infiltrate labs showed no significant coagulopathy of the case was discussed with the hospitalist and patient will be admitted to the hospitalist service with pulmonary consult - Lab Data Result diagrams: 02/24/19 11:30 02/24/19 11:30 Lab Results 02/24/19 02/24/19 02/24/19 Range/Units 11:30 11:30 11:30 WBC 14.3 H (4.3-11.1) K/mcL RBC 4.80 (4.19-5.50) M/mcL Hgb 14.4 (12.9-16.9) g/dL Hct 43.8 (37.5-50.1) % MCV 91.3 (83.0-100.0) fL MCH 30.0 (28.0-33.3) pg MCHC 32.9 (31.6-35.5) g/dL RDW 13.2 (11.5-14.5) % Plt Count 248 (140-400) K/mcL MPV 11.3 (9.4-12.4) fL Immature Gran % 0.3 (0-4) % Seg Neutrophils % 65.3 % Lymphocytes % 23.7 % Monocytes % 7.0 % Eosinophils % 2.9 % Basophils % 0.8 % Neutrophils # 9.3 H (1.6-8.9) K/mcL Lymphocytes # 3.4 (0.6-4.6) K/mcL Monocytes # 1.0 (0.0-1.3) K/mcL Eosinophils # 0.4 (0.0-0.6) K/mcL Basophils # 0.1 (0.0-0.2) K/mcL PT 17.2 H (9.4-12.1) Seconds INR 1.5 APTT 43.5 H (26.0-36.0) Seconds Sodium 139 (136-145) mEq/L Potassium 3.5 (3.5-5.1) mEq/L Chloride 97 L (98-107) mEq/L Carbon Dioxide 33 H (23-29) mEq/L BUN 10 (6-20) mg/dL Creatinine 0.76 (0.70-1.30) mg/dL Est GFR ( Amer) > 60 (> 60) Est GFR (Non-Af Amer) > 60 (> 60) BUN/Creatinine Ratio 13 (6-26) Glucose 65 L (70-105) mg/dL Calculated Osmolality 285 (280-300) Lactic Acid (0.5-2.2) mmol/L Calcium 10.0 (8.6-10.3) mg/dL Total Bilirubin 0.3 (0.3-1.0) mg/dL Direct Bilirubin 0.0 (0.0-0.2) mg/dL Indirect Bilirubin 0.3 (0.0-1.2) mg/dL AST 12 L (13-39) Units/L ALT 9 (7-52) Units/L Alkaline Phosphatase 75 (34-104) Units/L Troponin I < 0.03 (< 0.04) ng/mL B-Natriuretic Peptide (Less than 100) pg/mL Serum Total Protein 8.2 (6.4-8.9) g/dL Albumin 4.5 (3.5-5.7) g/dL Globulin 3.7 H (2.4-3.5) g/dL Albumin/Globulin Ratio 1.2 (1.1-2.2) 02/24/19 02/24/19 Range/Units 11:30 11:30 WBC (4.3-11.1) K/mcL RBC (4.19-5.50) M/mcL Hgb (12.9-16.9) g/dL Hct (37.5-50.1) % MCV (83.0-100.0) fL MCH (28.0-33.3) pg MCHC (31.6-35.5) g/dL RDW (11.5-14.5) % Plt Count (140-400) K/mcL MPV (9.4-12.4) fL Immature Gran % (0-4) % Seg Neutrophils % % Lymphocytes % % Monocytes % % Eosinophils % % Basophils % % Neutrophils # (1.6-8.9) K/mcL Lymphocytes # (0.6-4.6) K/mcL Monocytes # (0.0-1.3) K/mcL Eosinophils # (0.0-0.6) K/mcL Basophils # (0.0-0.2) K/mcL PT (9.4-12.1) Seconds INR APTT (26.0-36.0) Seconds Sodium (136-145) mEq/L Potassium (3.5-5.1) mEq/L Chloride (98-107) mEq/L Carbon Dioxide (23-29) mEq/L BUN (6-20) mg/dL Creatinine (0.70-1.30) mg/dL Est GFR ( Amer) (> 60) Est GFR (Non-Af Amer) (> 60) BUN/Creatinine Ratio (6-26) Glucose (70-105) mg/dL Calculated Osmolality (280-300) Lactic Acid 1.5 (0.5-2.2) mmol/L Calcium (8.6-10.3) mg/dL Total Bilirubin (0.3-1.0) mg/dL Direct Bilirubin (0.0-0.2) mg/dL Indirect Bilirubin (0.0-1.2) mg/dL AST (13-39) Units/L ALT (7-52) Units/L Alkaline Phosphatase (34-104) Units/L Troponin I (< 0.04) ng/mL B-Natriuretic Peptide 25 (Less than 100) pg/mL Serum Total Protein (6.4-8.9) g/dL Albumin (3.5-5.7) g/dL Globulin (2.4-3.5) g/dL Albumin/Globulin Ratio (1.1-2.2)
[2019-02-24 11:48] LABS: Basophils # 0.1 K/mcL (0.0-0.2); Basophils % 0.8 %; Eosinophils # 0.4 K/mcL (0.0-0.6); Eosinophils % 2.9 %; Hematocrit 43.8 % (37.5-50.1); Hemoglobin 14.4 g/dL (12.9-16.9); Immature Granulocytes % 0.3 % (0-4); Lymphocytes # 3.4 K/mcL (0.6-4.6); Lymphocytes % 23.7 %; Mean Corpuscular HGB Conc 32.9 g/dL (31.6-35.5); Mean Corpuscular Volume 91.3 fL (83.0-100.0); Mean Platelet Volume 11.3 fL (9.4-12.4); Neutrophils # 9.3 K/mcL (1.6-8.9); Platelet Count 248 K/mcL (140-400); Red Cell Distribution Width 13.2 % (11.5-14.5); Segmented Neutrophils % 65.3 %
[2019-02-24 12:01] LABS: INR 1.5; Prothrombin Time 17.2 Seconds (9.4-12.1)
[2019-02-24 12:04] LABS: Activated Partial Thrombo Time 43.5 Seconds (26.0-36.0)
[2019-02-24 12:12] LABS: Alanine Aminotransferase 9 Units/L (7-52); Albumin 4.5 g/dL (3.5-5.7); Albumin/Globulin Ratio 1.2 (1.1-2.2); Alkaline Phosphatase 75 Units/L (34-104); Aspartate Amino Transferase 12 Units/L (13-39); BUN/Creatinine Ratio 13 (6-26); Bilirubin,Indirect 0.3 mg/dL (0.0-1.2); Bilirubin,Total 0.3 mg/dL (0.3-1.0); Blood Urea Nitrogen 10 mg/dL (6-20); Carbon Dioxide 33 mEq/L (23-29); Chloride 97 mEq/L (98-107); Globulin 3.7 g/dL (2.4-3.5); Glucose 65 mg/dL (70-105); Osmolality,Calculated 285 (280-300); Potassium 3.5 mEq/L (3.5-5.1); Sodium 139 mEq/L (136-145); Total Protein 8.2 g/dL (6.4-8.9); Troponin I < 0.03 ng/mL (< 0.04); eGFR For Non-African Americans > 60 (> 60)
[2019-02-24] MEDS ORDERED: Isovue-370 500 ML BOTTLE IVP ONE (12:59)
[2019-02-24] MEDS ORDERED: Naloxone 0.4 MG/ML INJ IVP PRN (13:00)
[2019-02-24] MEDS ORDERED: *HR* Dextrose 50 % in Water (Syg) 50 ML SYRINGE IVP PRN (13:07)
[2019-02-24] MEDS ORDERED: D5% in Water 1,000 ML IVC PRN (13:07)
[2019-02-24] MEDS ORDERED: Dextrose Gel 15 GM/37.5 ML TUBE PO PRN ×2 (13:07)
--- NOTE | 2019-02-24 13:54 | Electrocardiograph Report ---
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
[2019-02-24] MEDS ORDERED: Ipratropium/Albuterol Neb 3 ML IH PRN (14:13)
[2019-02-24 16:17] LABS: Estimated Average Glucose 108 mg/dl; Hemoglobin A1C 5.4 %
[2019-02-24] MEDS ORDERED: Insulin LISPRO 300 UNITS/3 ML VIAL SQ SCH ×2 (16:30)
--- NOTE | 2019-02-24 17:27 | Internal Med History&Physical ---
Date of Encounter: 02/24/19 Time of Encounter: 17:00 Internal Medicine - H&P: HPI Chief complaint: Coughing up blood for about 2 weeks History of present illness: Mr. Mccarthy is a 53 year old male with pmh ogf chronic respiratory failure on trach since August last year when he was in the ICU for candidemia septic shock, pulmonary embolism diagnosed last month and started on eliquis presenting with complaints of hemoptysis of about 2 weeks duration. 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 He denies any other acute complaints such as fevers or chills or abdominal pain. he expresses a desire to have his trach taken out In the ER, a CBC was done noting stable CBC at 14. A CT chest also showed improved right lower lobe consolidation which was noted on prior CT and he is being admitted for further management. Past Med Surg Social Fam HX - Past Medical History Medical history: asthma, COPD, diabetes, GERD, hypertension, other Additional medical history: Emphysema Psychiatric history: anxiety, depression - Past Surgical History Additional surgical history: trach - Social History Smoking Status: Former smoker Smokeless Tobacco Status: No Alcohol use: none Drug use: none Internal Medicine - H&P: Meds Ipratropium/Albuterol Sulfate [Combivent Respimat Inhal [place]] 4 gm IH DAILY 11/23/15 [History] Albuterol Sulfate [Proair Hfa] 2 puff IH Q4HR PRN 06/17/18 [History] Aspirin Enteric Coated [Aspirin EC] 81 mg PO DAILY 06/17/18 [History] Carvedilol 3.125 mg PO BID 06/17/18 [History] Citalopram [CeleXA] 20 mg PO DAILY 06/17/18 [History] Fluticasone Propionate Nasal [Flonase] 1 puff NS DAILY 06/17/18 [History] Fluticasone/Vilanterol [Breo Ellipta 200-25 Mcg INH] 1 each IH DAILY 06/17/18 [History] Furosemide [Lasix] 40 mg PO BID 06/17/18 [History] Gabapentin [Neurontin] 300 mg PO QID 06/17/18 [History] Insulin Glargine,Hum.rec.anlog [Basaglar Kwikpen U-100] 25 unit SQ BID 06/17/18 [History] Losartan/Hydrochlorothiazide [Losartan-Hctz 100-25 mg Tab] 1 tab PO DAILY 06/17/18 [History] Metoprolol [Lopressor] 25 mg PO BID 06/17/18 [History] Montelukast [Singulair] 10 mg PO HS 06/17/18 [History] OxyCODONE/APAP 10/325 [Percocet 10/325 MG] 1 tab PO TID 06/17/18 [History] Pantoprazole Sodium 40 mg PO DAILY 06/17/18 [History] Potassium Chloride [K-Tab ER] 20 meq PO DAILY 06/17/18 [History] Pravastatin Sodium [Pravachol] 40 mg PO DAILY 06/17/18 [History] Bumetanide [Bumex] 1 mg PO DAILY #7 tablet 10/20/18 [Rx] Nicotine Patch [Nicoderm] 21 mg TD DAILY #7 patch.td24 10/20/18 [Rx] Potassium Chloride [K-Tab ER] 20 meq PO BID #14 tablet.er 10/20/18 [Rx] Amoxicillin/Clavulanate [Augmentin] 875 mg PO BIDWM 02/24/19 [History] Allergy/AdvReac Type Severity Reaction Status Date / Time ibuprofen [From Motrin] Allergy See Verified 11/29/18 16:48 Comments Sulfa (Sulfonamide Allergy Rash Verified 01/28/16 21:39 Antibiotics) All Systems PM: A 10-system review of systems was performed and is negative for pertinent findings except as documented above in the HPI. - Constitutional Constitutional: no chills, no fever(s), no night sweats - EENT Eyes: no change in vision, no discharge, no pain, no photophobia Ears: no ear discharge, no ear pain, no tinnitus Nose, mouth and throat: no dysphagia, no nasal discharge, no neck pain, no sore throat - Cardiovascular Cardiovascular ROS IM: no chest pain, no diaphoresis, no dyspnea, no lightheadedness, no palpitations, no syncope - Respiratory Respiratory: dyspnea, hemoptysis, no cough, no wheezing, no excessive phlegm production - Gastrointestinal Gastrointestinal: no abdominal pain, no diarrhea, no hematemesis, no hematochezia, no melena, no nausea, no vomiting - Musculoskeletal Musculoskeletal ROS IM: no numbness, no tingling - Integumentary Integumentary IM: no rash, no unusual bruising - Neurological Neurological ROS: no confusion, no convulsions, no focal weakness, no numbness, no tingling, no tremor(s) - Hematologic/Lymphatic Hematologic/Lymphatic: no easy bruising - Constitutional Vitals: Temp Pulse Resp BP Pulse Ox 98.7 F 78 18 112/78 92 02/24/19 16:08 02/24/19 16:08 02/24/19 16:08 02/24/19 16:08 02/24/19 16:08 Exam: NAD - Head Head exam: Present: atraumatic, normocephalic - Eye Eye exam: Present: PERRL, conjuntiva pink, sclera anicteric Pupils: Present: PERRL - Neck Neck exam general surgery: Present: supple, trachea midline. Absent: lymphadenopathy - Respiratory Respiratory exam: Present: CTAB. Absent: accessory muscle use, rales, rhonchi, wheezes - Cardiovascular Cardiovascular exam: Present: RRR, +S1, +S2. Absent: diastolic murmur, gallop, rubs, systolic murmur - GI/Abdominal GI/Abdominal exam: Present: normal bowel sounds, soft, no peritoneal signs. Absent: distended, tenderness - Extremities Exam Extremities exam: Present: warm, radial pulses palpable and symmetrical. Absent: calf tenderness, cyanotic, pedal edema - Neurological Exam Neurological exam: Present: CN II-XII intact, oriented X3, no focal deficits. Absent: pronater drift, facial droop, speech deficit - Skin Skin exam: Present: dry, intact Internal Med - H&P Results - Labs CBC & Chem 7: 02/24/19 11:30 02/24/19 11:30 Labs: Short CBC 02/24/19 Range/Units 11:30 WBC 14.3 H (4.3-11.1) K/mcL Hgb 14.4 (12.9-16.9) g/dL Hct 43.8 (37.5-50.1) % Plt Count 248 (140-400) K/mcL Neutrophils # 9.3 H (1.6-8.9) K/mcL BMP 02/24/19 11:30 Sodium 139 Potassium 3.5 Chloride 97 L Carbon Dioxide 33 H BUN 10 Creatinine 0.76 Glucose 65 L Calcium 10.0 Cardiac Enzymes 02/24/19 Range/Units 11:30 Troponin I < 0.03 (< 0.04) ng/mL Liver Function 02/24/19 Range/Units 11:30 Total Bilirubin 0.3 (0.3-1.0) mg/dL Direct Bilirubin 0.0 (0.0-0.2) mg/dL AST 12 L (13-39) Units/L ALT 9 (7-52) Units/L Alkaline Phosphatase 75 (34-104) Units/L Albumin 4.5 (3.5-5.7) g/dL - Impressions ITS Impressions Chest X-Ray 02/24/19 10:31 IMPRESSION: 1. No acute cardiopulmonary disease. 2. Tracheostomy tube in place. D/ / Leon Astorga MD / Leon Astorga MD Interpreting Provider: Leon Astorga MD Chest CT 02/24/19 12:59 IMPRESSION: 1. Right lower lobe atelectasis and/or consolidation. This appears improved in comparison to 01/01/2019. 2. Left pleural effusion has resolved. 3. Mildly enlarged anterior mediastinal lymph node is decreased in size in comparison to the prior exam. 4. Mild emphysematous changes. D/ / 02/24/2019 14:21:43 Ajay Winters MD / [place] Interpreting Provider: Ajay Winters MD - Assessment and Plan (1) Hemoptysis Current Visit: Yes Status: Acute Assessment and plan: Pt says he started taking eliquis about 4 weeks ago when he was diagnosed with a PE He has been having episodic coughing up blood in the last 2 weeks. Denies any fevers any chills or any weight loss suspicious for TB or malignancy Will hold eliquis, CT chest with IV contrast showed no acute findings. May need bronchoscopy. Pulmonary consult and recs appreciated (2) Pulmonary embolism Current Visit: Yes Status: Acute Assessment and plan: See#1. Hold eliquis. Pulmonary consulted Qualifiers: Qualified Code(s): I26.99 - Other pulmonary embolism without acute cor pulmonale (3) Chronic respiratory failure Current Visit: Yes Status: Acute Assessment and plan: On trach s/p septic shock with respiratory failure about 6 months ago Continue trach management. Nebs as needed Qualifiers: Qualified Code(s): J96.11 - Chronic respiratory failure with hypoxia (4) Diabetes mellitus Current Visit: Yes Status: Acute Assessment and plan: Last A1c was 5.4. Blood sugars in the 60s on arrival Patient is on high doses of insulin which he probably does not need. Will discontinue insulin and monitor glucose Qualifiers: Qualified Code(s): E11.9 - Type 2 diabetes mellitus without complications (5) Dyslipidemia Current Visit: Yes Status: Acute Assessment and plan: Continue statin (6) DVT prophylaxis Current Visit: Yes Status: Acute Assessment and plan: SCDs - Time Spent With Patient Total time spent is greater than 50% in coordination of care (as documented) at patient's floor/unit and/or counseling patient:
[2019-02-24] MEDS: Ipratropium/Albuterol Neb 3 ML IH SCH ×3 (19:31→23:37)
[2019-02-24] MEDS: Budesonide/Formoterol 160/4.5 1 PUFF INH IH SCH (20:17)
[2019-02-24] MEDS ORDERED: Insulin DETEMIR 100 UNIT/ML X5UNITS SQ SCH (21:00)
[2019-02-24] MEDS ORDERED: NON-FORMULARY MEDICATION 1 EACH EACH (Insulin Glargine,Hum.Rec.Anlog [Basaglar Kwikpen U-1 SQ SCH (21:00)
[2019-02-25 01:51] LABS: Basophils # 0.1 K/mcL (0.0-0.2); Basophils % 0.7 %; Eosinophils # 0.5 K/mcL (0.0-0.6); Eosinophils % 3.7 %; Hematocrit 38.7 % (37.5-50.1); Hemoglobin 13.1 g/dL (12.9-16.9); Immature Granulocytes % 0.4 % (0-4); Lymphocytes # 3.8 K/mcL (0.6-4.6); Lymphocytes % 30.7 %; Mean Corpuscular HGB Conc 33.9 g/dL (31.6-35.5); Mean Corpuscular Hemoglobin 30.4 pg (28.0-33.3); Mean Corpuscular Volume 89.8 fL (83.0-100.0); Mean Platelet Volume 10.8 fL (9.4-12.4); Monocytes % 8.1 %; Neutrophils # 6.9 K/mcL (1.6-8.9); Platelet Count 218 K/mcL (140-400); Red Blood Count 4.31 M/mcL (4.19-5.50); Red Cell Distribution Width 13.2 % (11.5-14.5); Segmented Neutrophils % 56.4 %
[2019-02-25 02:11] LABS: BUN/Creatinine Ratio 11 (6-26); Blood Urea Nitrogen 10 mg/dL (6-20); Calcium 9.3 mg/dL (8.6-10.3); Carbon Dioxide 31 mEq/L (23-29); Chloride 99 mEq/L (98-107); Glucose 79 mg/dL (70-105); Magnesium 1.6 mg/dL (1.6-2.6); Osmolality,Calculated 282 (280-300); Phosphorous 4.3 mg/dL (2.7-4.5); Potassium 3.5 mEq/L (3.5-5.1); Sodium 137 mEq/L (136-145); eGFR For Non-African Americans > 60 (> 60)
[2019-02-25] MEDS: Ipratropium/Albuterol Neb 3 ML IH SCH ×3 (03:32→11:06)
[2019-02-25] MEDS: Budesonide/Formoterol 160/4.5 1 PUFF INH IH SCH (07:22)
--- NOTE | 2019-02-25 07:25 | Pulmonology Consult Note ---
Date of Encounter: 02/25/19 Time of Encounter: 07:25 Assessment and Plan (1) Hemoptysis Status: Acute This patient was seen in the office and he was sent to the hospital for broncho scopy which was done and there was evidence of some trauma to the trachea which is most likely from tracheostomy tube and patient is been on anticoagulation. There was no evidence of major bleeding And discussed with primary team that he can resume his anticoagulation and there is any evidence of more bleeding than he can be seen in the emergency room and stop anticoagulation. I have explained to him about bronchoscopy and he agreed to have it done. A bronchoscopy is recommended. The procedure , risks, benefits, complications, and expected outcomes have been reviewed. Benefits of diagnosis, as well as risks to include bleeding, infection, pneumothorax which may require surgical intervention, and in a small population. The patient is aware that sometimes test is nondiagnostic. Discussed with patient and agrees to proceed. (2) Chronic respiratory failure Status: Chronic Qualifiers: Qualified Code(s): J96.11 - Chronic respiratory failure with hypoxia History of Present Illness Consult date: 02/25/19 Requesting physician: Jack Jauregui Reason for consult: other (Hemoptysis) Chief complaint: Hemoptysis History of present illness: This is a 53-year-old male with history of COPD and status post tracheostomy he was seen in the office in the outpatient and he was admitted to the hospital after referring him to emergency room because his been having some blood through his tracheostomy. Unfortunately patient continued to smoke and he has exacerb ations. He does have productive cough and he denies any significant fever or chills. Patient has some difficulty regarding care office tracheostomy and his been having difficulty to get inner cannula. He described coughing with only some blood and is very anxious to go home. Past Med Surg Social Fam HX - Past Medical History Medical history: asthma, COPD, diabetes, GERD, hypertension, other Additional medical history: Emphysema Psychiatric history: anxiety, depression - Past Surgical History Additional surgical history: trach - Social History Smoking Status: Former smoker Smokeless Tobacco Status: No Alcohol use: none Drug use: none Medications and Allergies Albuterol Sulfate [Proair Hfa] 2 puff IH Q4HR PRN 06/17/18 [History] Fluticasone Propionate Nasal [Flonase] 1 puff NS DAILY 06/17/18 [History] Metoprolol [Lopressor] 25 mg PO BID 06/17/18 [History] Montelukast [Singulair] 10 mg PO HS 06/17/18 [History] Pantoprazole Sodium 40 mg PO DAILY 06/17/18 [History] Bumetanide [Bumex] 1 mg PO DAILY #7 tablet 10/20/18 [Rx] Nicotine Patch [Nicoderm] 21 mg TD DAILY #7 patch.td24 10/20/18 [Rx] Potassium Chloride [K-Tab ER] 20 meq PO BID #14 tablet.er 10/20/18 [Rx] Albuterol Neb [Proventil Neb] 2.5 mg IH Q2H PRN 02/24/19 [History] Amoxicillin/Clavulanate [Augmentin] 875 mg PO BIDWM 02/24/19 [History] Apixaban [Eliquis] 5 mg PO BID 02/24/19 [History] Budesonide/Formoterol 160/4.5 [Symbicort 160/4.5] 2 puff IH BIDR 02/24/19 [History] Desmopressin Acetate [Ddavp] 0.1 mg PO BID 02/24/19 [History] Divalproex Sodium 500 mg PO BID 02/24/19 [History] Docusate [Colace] 100 mg PO DAILY PRN 02/24/19 [History] Famotidine [Pepcid] 20 mg PO QPM 02/24/19 [History] Ferrous Sulfate [Iron] 325 mg PO QAM 02/24/19 [History] Folic Acid 2 mg PO QAM 02/24/19 [History] Folic Acid 3 mg PO QPM 02/24/19 [History] Gabapentin [Neurontin] 300 mg PO TID 02/24/19 [History] Guaifenesin [Mucinex] 600 mg PO BID 02/24/19 [History] Insulin Glargine,Hum.rec.anlog [Lantus Solostar] 25 units SQ BID 02/24/19 [History] Ipratropium/Albuterol Sulfate [Combivent Respimat 20-100 Mcg] 1 puff IH QID 02/24/19 [History] Oxycodone HCl 5 mg PO Q6H PRN 02/24/19 [History] Polyethylene Glycol 3350 17 gm PO DAILY PRN 02/24/19 [History] Quetiapine Fumarate [SEROquel] 100 mg PO HS 02/24/19 [History] Sennosides/Docusate Sodium [Senna-Docusate Sodium Tablet] 1 each PO Q12H PRN 02/24/19 [History] Valproic Acid (As Sodium Salt) [Valproic Acid] 500 mg PO BID 02/24/19 [History] clonazePAM [Clonazepam] 0.5 mg PO Q8H PRN 02/24/19 [History] Allergy/AdvReac Type Severity Reaction Status Date / Time ibuprofen [From Motrin] Allergy swelling Verified 02/24/19 21:24 Sulfa (Sulfonamide Allergy Rash, Verified 02/24/19 21:24 Antibiotics) All Systems: The remainder of the systems were reviewed and are negative Physical Examination Vital Signs: Vital Signs, Last 4 Hours Temp Pulse Resp BP Pulse Ox 02/25/19 07:20 98.2 F 103 16 122/78 99 02/25/19 04:55 98.2 F 85 17 116/66 94 02/25/19 03:32 16 86 General appearance: no acute distress Eyes: nonicteric ENT: oropharynx moist Neck: supple, other (Tracheostomy in place) Effort: normal Auscultation: bilateral: rhonchi Percussion: bilateral: not dull Cardiovascular: regular rate and rhythm Gastrointestinal: normoactive bowel sounds, non-distended Extremities: no cyanosis, edema normal mental status, non-focal exam anxious Results - Laboratory Findings CBC and BMP: 02/25/19 01:42 02/25/19 01:42 PT/INR, D-dimer PT 17.2 Seconds (9.4-12.1) H 02/24/19 11:30 Abnormal lab findings: Abnormal lab results WBC 12.3 K/mcL (4.3-11.1) H 02/25/19 01:42 9.3 K/mcL (1.6-8.9) H 02/24/19 11:30 PT 17.2 Seconds (9.4-12.1) H 02/24/19 11:30 APTT 43.5 Seconds (26.0-36.0) H 02/24/19 11:30 Chloride 97 mEq/L (98-107) L 02/24/19 11:30 Carbon Dioxide 31 mEq/L (23-29) H 02/25/19 01:42 Glucose 65 mg/dL (70-105) L 02/24/19 11:30 POC Glucose 121 mg/dL (70-99) H 02/24/19 20:45 AST 12 Units/L (13-39) L 02/24/19 11:30 3.7 g/dL (2.4-3.5) H 02/24/19 11:30 - Microbiology Findings Microbiology Findings: Microbiology, Last 48 Hours 02/24/19 11:30 Blood Culture - Preliminary Peripheral Venipuncture Culture is incubating and being continuously monitored for growth. Final report to follow. 02/24/19 11:44 Blood Culture - Preliminary Peripheral Venipuncture Culture is incubating and being continuously monitored for growth. Final report to follow. - Diagnostic Findings CT scan - chest: report reviewed, image reviewed - Clinical Findings Intake & Output: Intake & Output 02/24/19 02/24/19 02/25/19 15:59 23:59 07:59 Intake Total 200 / 200 300 / 300 Output Total 325 / 325 800 / 800 Balance -125 / -125 -500 / -500 Weight 97.885 kg 97.5 kg 98.4 kg Consult Discharge Plan - Plan Instructions: Tracheostomy Care (DC), Acute Hemoptysis (DC) Referrals: Sheryl Stahl CNP [Primary Care Provider] - (Follow up within 7 days. ) Maximo Mcdaniel MD [Partnered Physician] - (Schedule follow-up in two weeks. )
[2019-02-25] MEDS: *HR* OxyCODONE/APAP 10/325 TABLET PO PRN ×2 (08:16→14:14)
[2019-02-25] MEDS ORDERED: Nicotine 21 MG PATCH.TD24 TD SCH (09:00)
[2019-02-25] MEDS ORDERED: *HR* FentaNYL (PF) 100 MCG/2 ML VIAL IVP ONE (09:05)
[2019-02-25] MEDS ORDERED: *HR* Midazolam HCl 5 MG/5 ML VIAL IVP ONE ×2 (09:05→09:52)
[2019-02-25] MEDS ORDERED: Lidocaine Viscous Oral Soln 15 ML SOLUTION MM ONE (09:05)
[2019-02-25] MEDS ORDERED: Albuterol 2.5 MG/3 ML NEBULIZER IH ONE (09:05)
[2019-02-25] MEDS ORDERED: *HR* EPINEPHrine 1 MG/10 ML SYRINGE INTRATRACH PRN (09:05)
--- NOTE | 2019-02-25 09:05 | Pre-Sedation Evaluation ---
Pre-sedation evaluation - Pre-sedation checklist Date of procedure: 02/25/19 Procedure: Bronchoscopy Recent Vitals: Last Vital Signs Temp 98.2 F 02/25/19 07:20 Pulse 103 02/25/19 07:20 Resp 16 02/25/19 08:36 BP 122/78 02/25/19 08:36 Pulse Ox 90 02/25/19 08:36 H&P (including ROS) documented in medical record: Yes Dietary Status: NPO after Midnight Dentition: No loose teeth or bridges ASA Classification *see protocol: CLASS III-Severe systemic disease Plan of Care: Pt appropriate candidate for procedure/moderate/conscious sedation, Risks/benefits of procedure/sedation discussed w/ patient/family
[2019-02-25] MEDS ORDERED: 0.9 % Sodium Chloride 1,000 ML IVC SCH (09:15)
[2019-02-25] MEDS ORDERED: *HR* FentaNYL (PF) 100 MCG/2 ML VIAL ONE (09:51)
[2019-02-25] MEDS ORDERED: Lidocaine Viscous Oral Soln 15 ML SOLUTION ONE (10:20)
[2019-02-25 12:17] VITALS: BP 137/85
--- NOTE | 2019-02-25 13:01 | Discharge Summary ---
- NOTES TO OUTPATIENT PROVIDER Notes to Outpatient Provider: PCP 2-5 days, pulm in 1-2 weeks Orders not resulted at time of discharge: Pending orders 02/24/19 11:30 Culture,Blood [BC] Stat 02/25/19 10:36 Cell Count w Diff, Body Fluid [BF] Routine Culture,Respiratory [RM] Routine Resp.Virus Panel,Body Fl Routine 02/25/19 10:37 Cytology [PTH] Routine Date of Encounter: 02/25/19 Time of Encounter: 12:58 - Discharge Diagnosis (1) Hemoptysis Priority: Primary Status: Acute Hospital course: Mr. Mccarthy is a 53 year old male with pmh ogf chronic respiratory failure on trach since August last year when he was in the ICU for candidemia septic shock, pulmonary embolism diagnosed last month and started on eliquis presenting with complaints of hemoptysis of about 2 weeks duration. Patient says he noticed he has been coughing up blood about 2 times a day for the last 2 weeks and went to see his manager costing Dr Mcdaniel today he advised him to come to the ER. He denies any other acute complaints such as fevers or chills or abdominal pain. he expresses a desire to have his trach taken out In the ER, a CBC was done noting stable CBC at 14. A CT chest also showed improved right lower lobe consolidation which was noted on prior CT and he is being admitted for further management. Pt was kept in the hospital and pt was seen by pulm and pulm took the pt for bronchoscopy and pt toelrated the procedure well, no active bleeding noted and I am in the process of contacting pulm in regard to their recommendation of eliquis, once we have a plan, pulm is OK with pt being discharged. Discharge discussed with: patient - Time Spent with Patient Total time spent providing and/or coordinating discharge services: Time spent: Greater than 30 minutes - Discharge Medications Prescriptions: Continued Metoprolol [Lopressor] 25 mg PO BID Amoxicillin/Clavulanate [Augmentin] 875 mg PO BIDWM Albuterol Neb [Proventil Neb] 2.5 mg IH Q2H PRN PRN Reason: Wheezing Apixaban [Eliquis] 5 mg PO BID Budesonide/Formoterol 160/4.5 [Symbicort 160/4.5] 2 puff IH BIDR clonazePAM [Clonazepam] 0.5 mg PO Q8H PRN PRN Reason: Anxiety Desmopressin Acetate [Ddavp] 0.1 mg PO BID Ferrous Sulfate [Iron] 325 mg PO QAM Folic Acid 2 mg PO QAM Folic Acid 3 mg PO QPM Gabapentin [Neurontin] 300 mg PO TID Guaifenesin [Mucinex] 600 mg PO BID Insulin Glargine,Hum.rec.anlog [Lantus Solostar] 25 units SQ BID Valproic Acid (As Sodium Salt) [Valproic Acid] 500 mg PO BID Divalproex Sodium 500 mg PO BID Docusate [Colace] 100 mg PO DAILY PRN PRN Reason: Constipation Famotidine [Pepcid] 20 mg PO QPM Ipratropium/Albuterol Sulfate [Combivent Respimat 20-100 Mcg] 1 puff IH QID Oxycodone HCl 5 mg PO Q6H PRN PRN Reason: Pain Polyethylene Glycol 3350 17 gm PO DAILY PRN PRN Reason: Constipation Quetiapine Fumarate [SEROquel] 100 mg PO HS Sennosides/Docusate Sodium [Senna-Docusate Sodium Tablet] 1 each PO Q12H PRN PRN Reason: Constipation Fluticasone Propionate Nasal [Flonase] 1 puff NS DAILY Pantoprazole Sodium 40 mg PO DAILY Montelukast [Singulair] 10 mg PO HS Albuterol Sulfate [Proair Hfa] 2 puff IH Q4HR PRN PRN Reason: Shortness Of Breath/Wheezing Bumetanide [Bumex] 1 mg PO DAILY #7 tablet Nicotine Patch [Nicoderm] 21 mg TD DAILY #7 patch.td24 Potassium Chloride [K-Tab ER] 20 meq PO BID #14 tablet.er Home Medications: Albuterol Sulfate [Proair Hfa] 2 puff IH Q4HR PRN 06/17/18 [History] Fluticasone Propionate Nasal [Flonase] 1 puff NS DAILY 06/17/18 [History] Metoprolol [Lopressor] 25 mg PO BID 06/17/18 [History] Montelukast [Singulair] 10 mg PO HS 06/17/18 [History] Pantoprazole Sodium 40 mg PO DAILY 06/17/18 [History] Bumetanide [Bumex] 1 mg PO DAILY #7 tablet 10/20/18 [Rx] Nicotine Patch [Nicoderm] 21 mg TD DAILY #7 patch.td24 10/20/18 [Rx] Potassium Chloride [K-Tab ER] 20 meq PO BID #14 tablet.er 10/20/18 [Rx] Albuterol Neb [Proventil Neb] 2.5 mg IH Q2H PRN 02/24/19 [History] Amoxicillin/Clavulanate [Augmentin] 875 mg PO BIDWM 02/24/19 [History] Apixaban [Eliquis] 5 mg PO BID 02/24/19 [History] Budesonide/Formoterol 160/4.5 [Symbicort 160/4.5] 2 puff IH BIDR 02/24/19 [History] Desmopressin Acetate [Ddavp] 0.1 mg PO BID 02/24/19 [History] Divalproex Sodium 500 mg PO BID 02/24/19 [History] Docusate [Colace] 100 mg PO DAILY PRN 02/24/19 [History] Famotidine [Pepcid] 20 mg PO QPM 02/24/19 [History] Ferrous Sulfate [Iron] 325 mg PO QAM 02/24/19 [History] Folic Acid 2 mg PO QAM 02/24/19 [History] Folic Acid 3 mg PO QPM 02/24/19 [History] Gabapentin [Neurontin] 300 mg PO TID 02/24/19 [History] Guaifenesin [Mucinex] 600 mg PO BID 02/24/19 [History] Insulin Glargine,Hum.rec.anlog [Lantus Solostar] 25 units SQ BID 02/24/19 [History] Ipratropium/Albuterol Sulfate [Combivent Respimat 20-100 Mcg] 1 puff IH QID 02/24/19 [History] Oxycodone HCl 5 mg PO Q6H PRN 02/24/19 [History] Polyethylene Glycol 3350 17 gm PO DAILY PRN 02/24/19 [History] Quetiapine Fumarate [SEROquel] 100 mg PO HS 02/24/19 [History] Sennosides/Docusate Sodium [Senna-Docusate Sodium Tablet] 1 each PO Q12H PRN 02/24/19 [History] Valproic Acid (As Sodium Salt) [Valproic Acid] 500 mg PO BID 02/24/19 [History] clonazePAM [Clonazepam] 0.5 mg PO Q8H PRN 02/24/19 [History] Allergies/Adverse Reactions: Allergy/AdvReac Type Severity Reaction Status Date / Time ibuprofen [From Motrin] Allergy swelling Verified 02/24/19 21:24 Sulfa (Sulfonamide Allergy Rash, Verified 02/24/19 21:24 Antibiotics) Date of admission: 02/24/19 12:54 Primary care physician: Sheryl Stahl CNP Consults: 02/24/19 13:50 Consult to Pulmonology [CONS] Routine Consulting Provider: [facility] [place] Reason for Consult: hemoptysis Call Completed: No 02/24/19 15:43 Consult to Nutrition [CONS] Routine Comment: Consulting Provider: NUTRITION Reason for Dietary Consult: MST Score - Constitutional Vitals: Temp Pulse Resp BP Pulse Ox 98.1 F 103 16 137/85 92 02/25/19 12:15 02/25/19 12:15 02/25/19 12:15 02/25/19 12:15 02/25/19 10:30 Exam: Gen: NAD HEENT: has trach Heart; s1, S2, RRR lungs: CTAB, abd: soft, NT/ND, LE: no edema - Patient Status Disposition: Home, Self-Care Condition: Good - Discharge Instructions Follow Up With: Sheryl Stahl CNP [Primary Care Provider] -
--- NOTE | 2019-02-25 15:07 | Physician Discharge Referral ---
Home Health/Hosp Referral Info Transfer to: Home Health (PT/OT, home health nursing) - Diagnosis (1) Hemoptysis Priority: Primary Status: Acute - Respiratory Orders Smoking Cessation: Smoking cessation has been advised. For more information, call the [place] Tobacco Quit Line at 6-681-CPWR-NOW. - Transfer Medications Home Medications: Albuterol Sulfate [Proair Hfa] 2 puff IH Q4HR PRN 06/17/18 [History] Fluticasone Propionate Nasal [Flonase] 1 puff NS DAILY 06/17/18 [History] Metoprolol [Lopressor] 25 mg PO BID 06/17/18 [History] Montelukast [Singulair] 10 mg PO HS 06/17/18 [History] Pantoprazole Sodium 40 mg PO DAILY 06/17/18 [History] Bumetanide [Bumex] 1 mg PO DAILY #7 tablet 10/20/18 [Rx] Nicotine Patch [Nicoderm] 21 mg TD DAILY #7 patch.td24 10/20/18 [Rx] Potassium Chloride [K-Tab ER] 20 meq PO BID #14 tablet.er 10/20/18 [Rx] Albuterol Neb [Proventil Neb] 2.5 mg IH Q2H PRN 02/24/19 [History] Amoxicillin/Clavulanate [Augmentin] 875 mg PO BIDWM 02/24/19 [History] Apixaban [Eliquis] 5 mg PO BID 02/24/19 [History] Budesonide/Formoterol 160/4.5 [Symbicort 160/4.5] 2 puff IH BIDR 02/24/19 [History] Desmopressin Acetate [Ddavp] 0.1 mg PO BID 02/24/19 [History] Divalproex Sodium 500 mg PO BID 02/24/19 [History] Docusate [Colace] 100 mg PO DAILY PRN 02/24/19 [History] Famotidine [Pepcid] 20 mg PO QPM 02/24/19 [History] Ferrous Sulfate [Iron] 325 mg PO QAM 02/24/19 [History] Folic Acid 2 mg PO QAM 02/24/19 [History] Folic Acid 3 mg PO QPM 02/24/19 [History] Gabapentin [Neurontin] 300 mg PO TID 02/24/19 [History] Guaifenesin [Mucinex] 600 mg PO BID 02/24/19 [History] Insulin Glargine,Hum.rec.anlog [Lantus Solostar] 25 units SQ BID 02/24/19 [History] Ipratropium/Albuterol Sulfate [Combivent Respimat 20-100 Mcg] 1 puff IH QID 02/24/19 [History] Oxycodone HCl 5 mg PO Q6H PRN 02/24/19 [History] Polyethylene Glycol 3350 17 gm PO DAILY PRN 02/24/19 [History] Quetiapine Fumarate [SEROquel] 100 mg PO HS 02/24/19 [History] Sennosides/Docusate Sodium [Senna-Docusate Sodium Tablet] 1 each PO Q12H PRN 02/24/19 [History] Valproic Acid (As Sodium Salt) [Valproic Acid] 500 mg PO BID 02/24/19 [History] clonazePAM [Clonazepam] 0.5 mg PO Q8H PRN 02/24/19 [History] Allergies/Adverse Reactions: Allergy/AdvReac Type Severity Reaction Status Date / Time ibuprofen [From Motrin] Allergy swelling Verified 02/24/19 21:24 Sulfa (Sulfonamide Allergy Rash, Verified 02/24/19 21:24 Antibiotics) Certification: Further, I certify that my clinical findings support that this patient is homebound (i.e. absences from home require considerable and taxing effort and are for medical reasons or [employer] services or infrequently or short duration when for other reasons) because: Homebound Reason: Patient requires assistance of a person or device to safely leave home Attestation: My signature below is to certify that this patient is under my care and that I, or nurse practitioner, or a physician's assistant toddler teacher working with me, has a [id number] encounter with this patient.
[2019-02-25 15:29] LABS: Appearance of Body Fluid Hazy (Clear); Volume of Body Fluid 10 mL
[2019-02-28 18:11] LABS: Influenza A PCR Body Fluid NOT DETECTED; Influenza B PCR Body Fluid NOT DETECTED; RVP Body Fluid Source BAL RLL
[2019-03-01 07:31] LABS: RSV PCR Body Fluid NOT DETECTED
== END 2019-02-25 14:28 | disposition home or self-care (01) ==
LOC: 2NENU 10:21 → EMEROOARM 10:21 → SUATTDRO 12:54 → 2NENU 13:27
PROVIDERS: ADMIT Student in an Organized Health Care Education/Training Program; ATTEND Internal Medicine

== ENCOUNTER 2020-12-15 20:31 | Inpatient (IN) ==
[2020-12-16] MEDS ORDERED: *HR* Dextrose 50 % in Water (Vial) 50 ML VIAL IVP PRN (00:24)
[2020-12-16] MEDS ORDERED: Dextrose Gel 15 GM/37.5 ML TUBE PO PRN ×2 (00:24)
[2020-12-16] MEDS ORDERED: D5% in Water 1,000 ML IVC PRN (00:24)
[2020-12-16] MEDS ORDERED: *HR* HYDROmorphone (PF) 1 MG/ML SYRINGE IVP PRN (00:52)
[2020-12-16] MEDS ORDERED: Potassium Chloride 40 MEQ, Lidocaine 1% 2 ML in 0.9 % Sodium Chloride 500 ML IVPB ONE (01:00)
[2020-12-16] MEDS ORDERED: Potassium Chloride Elixir 20 MEQ/15 ML UDC PO ONE ×2 (01:05→04:00)
[2020-12-16] MEDS ORDERED: Ringers Solution, Lactated 1,000 ML IVC ONE (01:10)
[2020-12-16] MEDS: cefTRIAXone 1,000 MG in Water for inj. (sterile) 10 ML IVP SCH (01:15)
[2020-12-16] MEDS: Nicotine 21 MG PATCH.TD24 TD SCH ×2 (01:58→09:11)
[2020-12-16 02:14] LABS: Magnesium 2.2 mg/dL (1.6-2.6); Phosphorous 1.5 mg/dL (2.7-4.5)
[2020-12-16 02:19] LABS: BUN/Creatinine Ratio 5 (6-26); Blood Urea Nitrogen 7 mg/dL (6-20); Calcium 8.1 mg/dL (8.6-10.3); Carbon Dioxide 34 mEq/L (23-29); Chloride 95 mEq/L (98-107); Glucose 102 mg/dL (70-105); Osmolality,Calculated 290 (280-300); Sodium 141 mEq/L (136-145); eGFR For African Americans > 60 (> 60); eGFR For Non-African Americans 55 (> 60)
[2020-12-16] MEDS: *HR* OxyCODONE Immed Rel 5 MG TABLET PO PRN ×4 (03:12→21:58)
[2020-12-16] MEDS: Ipratropium/Albuterol Neb 3 ML IH SCH ×5 (04:11→22:40)
[2020-12-16] MEDS: Insulin LISPRO 300 UNITS/3 ML VIAL SUBQ SCH ×4 (06:02→20:23)
[2020-12-16] MEDS ORDERED: Budesonide/Formoterol 160/4.5 1 PUFF INH IH SCH (10:00)
[2020-12-16 10:38] LABS: BUN/Creatinine Ratio 5 (6-26); Blood Urea Nitrogen 7 mg/dL (6-20); Carbon Dioxide 33 mEq/L (23-29); Chloride 98 mEq/L (98-107); Glucose 136 mg/dL (70-105); Osmolality,Calculated 296 (280-300); Potassium 2.3 mEq/L (3.5-5.1); Sodium 143 mEq/L (136-145); eGFR For African Americans > 60 (> 60); eGFR For Non-African Americans 54 (> 60)
[2020-12-16] MEDS ORDERED: Potassium Phosphate 44 MEQ in 0.9 % Sodium Chloride 250 ML IVPB ONE (10:49)
[2020-12-16 15:56] LABS: BUN/Creatinine Ratio 5 (6-26); Blood Urea Nitrogen 7 mg/dL (6-20); Calcium 8.2 mg/dL (8.6-10.3); Carbon Dioxide 32 mEq/L (23-29); Chloride 98 mEq/L (98-107); Glucose 291 mg/dL (70-105); Osmolality,Calculated 303 (280-300); Phosphorous 2.4 mg/dL (2.7-4.5); Potassium 2.2 mEq/L (3.5-5.1); Sodium 142 mEq/L (136-145); eGFR For African Americans > 60 (> 60); eGFR For Non-African Americans 53 (> 60)
[2020-12-17] MEDS: cefTRIAXone 1,000 MG in Water for inj. (sterile) 10 ML IVP SCH (00:08)
[2020-12-17] MEDS ORDERED: ALPRAZolam 0.5 MG TABLET ONE (02:27)
[2020-12-17] MEDS: Ipratropium/Albuterol Neb 3 ML IH SCH ×4 (05:53→21:21)
[2020-12-17 07:22] LABS: BUN/Creatinine Ratio 4 (6-26); Blood Urea Nitrogen 5 mg/dL (6-20); Calcium 8.1 mg/dL (8.6-10.3); Carbon Dioxide 29 mEq/L (23-29); Chloride 99 mEq/L (98-107); Glucose 264 mg/dL (70-105); Osmolality,Calculated 298 (280-300); Phosphorous 3.5 mg/dL (2.7-4.5); Potassium 3.3 mEq/L (3.5-5.1); Sodium 141 mEq/L (136-145); eGFR For African Americans > 60 (> 60); eGFR For Non-African Americans 55 (> 60)
[2020-12-17] MEDS: *HR* OxyCODONE Immed Rel 5 MG TABLET PO PRN ×2 (08:00→21:46)
[2020-12-17] MEDS: Nicotine 21 MG PATCH.TD24 TD SCH (08:02)
[2020-12-17] MEDS: Insulin LISPRO 300 UNITS/3 ML VIAL SUBQ SCH ×4 (08:04→21:24)
[2020-12-17] MEDS ORDERED: Ringers Solution, Lactated 1,000 ML IVC ONE (08:04)
[2020-12-17] MEDS: *HR* LORazepam 2 MG/ML VIAL IVP PRN ×2 (16:41→23:39)
[2020-12-17] MEDS: polyethylene glycoL 3350 17 GM POWD.PACK PO SCH (17:53)
[2020-12-18] MEDS: cefTRIAXone 1,000 MG in Water for inj. (sterile) 10 ML IVP SCH (02:21)
[2020-12-18] MEDS: Ipratropium/Albuterol Neb 3 ML IH SCH ×4 (03:57→22:12)
[2020-12-18] MEDS: *HR* OxyCODONE Immed Rel 5 MG TABLET PO PRN ×3 (08:06→20:40)
[2020-12-18] MEDS: polyethylene glycoL 3350 17 GM POWD.PACK PO SCH (08:06)
[2020-12-18] MEDS: Insulin LISPRO 300 UNITS/3 ML VIAL SUBQ SCH ×4 (08:08→20:35)
[2020-12-18] MEDS: Nicotine 21 MG PATCH.TD24 TD SCH (08:11)
[2020-12-18] MEDS ORDERED: polyethylene glycoL 3350 17 GM POWD.PACK PO SCH (09:00)
[2020-12-18 11:23] LABS: Hemoglobin 10.5 g/dL (12.9-16.9); Mean Corpuscular HGB Conc 33.9 g/dL (31.6-35.5); Mean Corpuscular Hemoglobin 29.2 pg (28.0-33.3); Mean Corpuscular Volume 86.1 fL (83.0-100.0); Mean Platelet Volume 10.7 fL (9.4-12.4); Platelet Count 354 K/mcL (140-400); Red Cell Distribution Width 13.2 % (11.5-14.5); White Blood Count 20.7 K/mcL (4.3-11.1)
[2020-12-18 11:41] LABS: BUN/Creatinine Ratio 5 (6-26); Blood Urea Nitrogen 5 mg/dL (6-20); Calcium 7.6 mg/dL (8.6-10.3); Carbon Dioxide 32 mEq/L (23-29); Chloride 95 mEq/L (98-107); Glucose 285 mg/dL (70-105); Magnesium 1.9 mg/dL (1.6-2.6); Osmolality,Calculated 292 (280-300); Potassium 2.6 mEq/L (3.5-5.1); Sodium 137 mEq/L (136-145); eGFR For African Americans > 60 (> 60); eGFR For Non-African Americans > 60 (> 60)
[2020-12-18] MEDS ORDERED: Potassium Phosphate 44 MEQ in 0.9 % Sodium Chloride 250 ML IVPB ONE (12:10)
[2020-12-18] MEDS: Insulin DETEMIR 100 UNIT/ML X5UNITS SUBQ SCH ×2 (13:05→20:33)
[2020-12-18] MEDS: QUEtiapine Fumarate 100 MG TABLET PO SCH (20:32)
[2020-12-19] MEDS: cefTRIAXone 1,000 MG in Water for inj. (sterile) 10 ML IVP SCH (01:21)
[2020-12-19] MEDS: Ipratropium/Albuterol Neb 3 ML IH SCH ×4 (04:32→22:51)
[2020-12-19 05:28] LABS: Hemoglobin 9.9 g/dL (12.9-16.9); Mean Corpuscular Hemoglobin 29.1 pg (28.0-33.3); Mean Corpuscular Volume 88.2 fL (83.0-100.0); Mean Platelet Volume 10.5 fL (9.4-12.4); Platelet Count 306 K/mcL (140-400); Red Cell Distribution Width 13.5 % (11.5-14.5); White Blood Count 16.2 K/mcL (4.3-11.1)
[2020-12-19 05:46] LABS: BUN/Creatinine Ratio 6 (6-26); Blood Urea Nitrogen 7 mg/dL (6-20); Calcium 7.5 mg/dL (8.6-10.3); Carbon Dioxide 36 mEq/L (23-29); Chloride 99 mEq/L (98-107); Glucose 163 mg/dL (70-105); Osmolality,Calculated 296 (280-300); Phosphorous 3.3 mg/dL (2.7-4.5); Potassium 2.7 mEq/L (3.5-5.1); Sodium 142 mEq/L (136-145); eGFR For African Americans > 60 (> 60); eGFR For Non-African Americans > 60 (> 60)
[2020-12-19] MEDS: *HR* OxyCODONE Immed Rel 5 MG TABLET PO PRN ×3 (06:02→19:42)
[2020-12-19] MEDS: Insulin LISPRO 300 UNITS/3 ML VIAL SUBQ SCH ×4 (08:56→19:38)
[2020-12-19] MEDS: Aspirin Enteric Coated 81 MG Tablet PO SCH (09:35)
[2020-12-19] MEDS: polyethylene glycoL 3350 17 GM POWD.PACK PO SCH (09:35)
[2020-12-19] MEDS: Nicotine 21 MG PATCH.TD24 TD SCH (09:36)
[2020-12-19] MEDS: Insulin DETEMIR 100 UNIT/ML X5UNITS SUBQ SCH ×2 (11:02→19:37)
[2020-12-19] MEDS ORDERED: Fluconazole 400 MG/200 ML 400 MG/200 ML BAG IVPB SCH (15:45)
[2020-12-19] MEDS: QUEtiapine Fumarate 100 MG TABLET PO SCH (19:37)
[2020-12-19] MEDS: Budesonide/Formoterol 160/4.5 1 PUFF INH IH SCH (22:51)
[2020-12-19] MEDS: *HR* LORazepam 2 MG/ML VIAL IVP PRN (23:57)
[2020-12-20] MEDS: *HR* OxyCODONE Immed Rel 5 MG TABLET PO PRN ×2 (02:04→22:59)
[2020-12-20 02:41] LABS: BUN/Creatinine Ratio 6 (6-26); Blood Urea Nitrogen 7 mg/dL (6-20); Calcium 7.2 mg/dL (8.6-10.3); Carbon Dioxide 35 mEq/L (23-29); Chloride 100 mEq/L (98-107); Glucose 285 mg/dL (70-105); Osmolality,Calculated 300 (280-300); Potassium 3.3 mEq/L (3.5-5.1); Sodium 141 mEq/L (136-145); eGFR For African Americans > 60 (> 60); eGFR For Non-African Americans > 60 (> 60)
[2020-12-20] MEDS: Ipratropium/Albuterol Neb 3 ML IH SCH ×4 (03:42→21:29)
[2020-12-20] MEDS: Nicotine 21 MG PATCH.TD24 TD SCH (08:14)
[2020-12-20] MEDS: Aspirin Enteric Coated 81 MG Tablet PO SCH (08:15)
[2020-12-20] MEDS: polyethylene glycoL 3350 17 GM POWD.PACK PO SCH (08:15)
[2020-12-20] MEDS: Insulin DETEMIR 100 UNIT/ML X5UNITS SUBQ SCH ×2 (08:15→21:44)
[2020-12-20] MEDS: Insulin LISPRO 300 UNITS/3 ML VIAL SUBQ SCH ×4 (08:34→21:00)
[2020-12-20] MEDS: Fluconazole 200 MG/100 ML 200 MG/100 ML BAG IVPB SCH (10:12)
[2020-12-20] MEDS: Budesonide/Formoterol 160/4.5 1 PUFF INH IH SCH ×2 (10:14→21:29)
[2020-12-20 11:59] LABS: Bacteria,Urine Few per hpf (None-Few); Bilirubin,Urine Negative (Negative); Blood,Urine Moderate (Negative); Clarity,Urine Clear (Clear); Color,Urine Colorless (Yellow); Glucose,Urine (UA) Normal (Normal); Ketones,Urine Negative (Negative); Leukocyte Esterase,Urine Large (Negative); Nitrite,Urine Negative (Negative); Protein,Urine 30 mg/dL (Neg-Trace); Specific Gravity,Urine < 1.005 (1.010-1.025); Urobilinogen,Urine Normal (Normal)
[2020-12-20] MEDS: Acetaminophen 325 MG TABLET PO PRN (18:11)
[2020-12-20] MEDS: QUEtiapine Fumarate 100 MG TABLET PO SCH (21:34)
[2020-12-20] MEDS: *HR* LORazepam 2 MG/ML VIAL IVP PRN (23:00)
[2020-12-21] MEDS: Ipratropium/Albuterol Neb 3 ML IH SCH ×6 (04:20→22:53)
[2020-12-21] MEDS: *HR* OxyCODONE Immed Rel 5 MG TABLET PO PRN ×3 (05:04→21:02)
[2020-12-21] MEDS: Acetaminophen 325 MG TABLET PO PRN ×2 (05:05→14:22)
[2020-12-21 05:46] LABS: Hematocrit 27.2 % (37.5-50.1); Hemoglobin 8.8 g/dL (12.9-16.9); Mean Corpuscular HGB Conc 32.4 g/dL (31.6-35.5); Mean Corpuscular Hemoglobin 28.9 pg (28.0-33.3); Mean Corpuscular Volume 89.2 fL (83.0-100.0); Mean Platelet Volume 10.5 fL (9.4-12.4); Platelet Count 300 K/mcL (140-400); Red Blood Count 3.05 M/mcL (4.19-5.50); Red Cell Distribution Width 13.7 % (11.5-14.5); White Blood Count 13.8 K/mcL (4.3-11.1)
[2020-12-21 06:06] LABS: BUN/Creatinine Ratio 7 (6-26); Blood Urea Nitrogen 7 mg/dL (6-20); Calcium 7.7 mg/dL (8.6-10.3); Carbon Dioxide 32 mEq/L (23-29); Chloride 99 mEq/L (98-107); Glucose 137 mg/dL (70-105); Magnesium 1.9 mg/dL (1.6-2.6); Osmolality,Calculated 286 (280-300); Phosphorous 2.7 mg/dL (2.7-4.5); Potassium 3.5 mEq/L (3.5-5.1); Sodium 138 mEq/L (136-145); eGFR For African Americans > 60 (> 60); eGFR For Non-African Americans > 60 (> 60)
[2020-12-21] MEDS: Insulin LISPRO 300 UNITS/3 ML VIAL SUBQ SCH ×4 (08:53→20:47)
[2020-12-21] MEDS: Nicotine 21 MG PATCH.TD24 TD SCH (08:55)
[2020-12-21] MEDS: Aspirin Enteric Coated 81 MG Tablet PO SCH (08:55)
[2020-12-21] MEDS: Insulin DETEMIR 100 UNIT/ML X5UNITS SUBQ SCH ×2 (08:56→20:54)
[2020-12-21] MEDS: polyethylene glycoL 3350 17 GM POWD.PACK PO SCH (08:56)
[2020-12-21] MEDS: Fluconazole 200 MG/100 ML 200 MG/100 ML BAG IVPB SCH (08:57)
[2020-12-21] MEDS: Budesonide/Formoterol 160/4.5 1 PUFF INH IH SCH ×2 (10:58→22:53)
[2020-12-21] MEDS: QUEtiapine Fumarate 100 MG TABLET PO SCH (20:55)
[2020-12-21] MEDS ORDERED: Budesonide/Formoterol 160/4.5 1 PUFF INH IH PRN (22:58)
[2020-12-21] MEDS ORDERED: Ipratropium/Albuterol Neb 3 ML IH PRN (22:58)
[2020-12-22] MEDS: Nicotine 21 MG PATCH.TD24 TD SCH (08:27)
[2020-12-22] MEDS: Insulin DETEMIR 100 UNIT/ML X5UNITS SUBQ SCH (08:29)
[2020-12-22] MEDS: Aspirin Enteric Coated 81 MG Tablet PO SCH (08:29)
[2020-12-22] MEDS: Fluconazole 200 MG/100 ML 200 MG/100 ML BAG IVPB SCH (08:30)
[2020-12-22] MEDS: Insulin LISPRO 300 UNITS/3 ML VIAL SUBQ SCH ×2 (08:31→11:48)
[2020-12-22] MEDS: polyethylene glycoL 3350 17 GM POWD.PACK PO SCH (08:44)
[2020-12-22 09:36] LABS: BUN/Creatinine Ratio 7 (6-26); Blood Urea Nitrogen 8 mg/dL (6-20); Calcium 8.3 mg/dL (8.6-10.3); Carbon Dioxide 32 mEq/L (23-29); Chloride 101 mEq/L (98-107); Glucose 205 mg/dL (70-105); Magnesium 1.9 mg/dL (1.6-2.6); Osmolality,Calculated 292 (280-300); Potassium 3.8 mEq/L (3.5-5.1); Sodium 139 mEq/L (136-145); eGFR For African Americans > 60 (> 60); eGFR For Non-African Americans > 60 (> 60)
[2020-12-22 11:41] VITALS: BP 110/47
[2020-12-22] MEDS: Acetaminophen 325 MG TABLET PO PRN (14:19)
[2020-12-22] MEDS: *HR* OxyCODONE Immed Rel 5 MG TABLET PO PRN (14:19)
== END 2020-12-22 18:29 | disposition home or self-care (01) | DRG 720 ==
LOC: 2NENU → SUATTDRO 12-16 08:45
PROVIDERS: ADMIT Internal Medicine; ATTEND Internal Medicine